=== PATIENT | female | born 1945 | race Caucasian/White ===

== ENCOUNTER 2016-11-06 19:40 | Inpatient (IN) ==
--- NOTE | 2016-11-06 20:26 | Emergency Department Note ---
Disposition Clinical Impression: Acute pyelonephritis Disposition: Admitted As Inpatient Condition: Undetermined Time of Disposition: 21:25 General Adult HPI - General Chief complaint: ED Nausea/Vomiting/Diarrhea Stated complaint: Lightheaded / N&V Time Seen by Provider: 11/06/16 20:06 Source: patient Mode of arrival: EMS Limitations: no limitations Nursing Notes Reviewed: Yes Vital Signs Reviewed: Yes - History of Present Illness HPI Narrative: 71-year-old female arrives [facility] emergency department complaining of generalized weakness, sore throat that began 1 day ago. The patient states that she was recently placed on Bactrim for possible "kidney infection" by PCP. The patient has been taking her medication as prescribed. She was prescribed the medication today. She states that last night she began experiencing symptoms and woke up with a sore throat as morning. The patient denies any fevers or chills, abdominal pain, chest pain, dyspnea. The patient does admit to a sore throat, nasal congestion. The patient does have a chronic venous stasis ulceration in the right lower extremity on her right heel which she sees wound care. Patient denies any other complaints at this time. She is afebrile. She is alert and oriented 3. Onset (ago): day(s) (1) Pain Scale: 0 Consistency: constant Improves with: nothing Worsens with: nothing Associated symptoms: Reports: weakness Treatments Prior to Arrival: other (Bactrim) - Related Data Home Medications Medication Instructions Recorded Confirmed Insulin ASPART [Novolog Flexpen] 20 unit SQ TIDAC 03/01/16 11/06/16 Insulin Glargine,Hum.rec.anlog 40 units SQ 03/01/16 11/06/16 [Lantus Solostar] Metoprolol [Lopressor] 12.5 mg PO BID 03/01/16 11/06/16 Pravastatin Sodium 10 mg PO HS 03/01/16 11/06/16 Aspirin 81 mg PO DAILY 05/20/16 11/06/16 Sulfamethoxazole/Trimeth DS 1 each PO BID 11/06/16 11/06/16 [Bactrim DS] Previous Rx's Medication Instructions Recorded Magnesium Oxide [Mag-Ox] 400 mg PO BID #60 tablet 06/22/16 Allergies Allergy/AdvReac Type Severity Reaction Status Date / Time acetaminophen [From Tylenol] Allergy See Verified 04/06/17 19:44 Comments Influenza Virus Vaccines Allergy See Verified 07/03/16 08:29 Comments Past Medical History - Past Medical History Medical history: Reports: diabetes, hyperlipidemia, hypertension, renal disease , other Surgical history: Reports: hysterectomy Psychiatric history: Reports: no psych history LIAISON ENGINEER history: Reports: no LIAISON ENGINEER history - Social History Smoking Status: Never smoker Smokeless Tobacco Status: No Alcohol use: Reports: none Drug use: Reports: none Physical Exam - General Limitations: no limitations General appearance: alert, in no apparent distress Course Vital Signs Temperature 97.7 F 11/06/16 19:44 Pulse Rate 95 11/06/16 19:44 Respiratory Rate 18 11/06/16 19:44 Blood Pressure 157/99 11/06/16 19:44 O2 Sat by Pulse Oximetry 99 11/06/16 19:44 Temperature 97.7 F 11/06/16 19:44 Pulse Rate 90 11/06/16 23:38 Respiratory Rate 18 11/06/16 23:38 Blood Pressure 144/84 11/06/16 23:38 O2 Sat by Pulse Oximetry 97 11/06/16 23:38 Oxygen Delivery Oxygen Delivery Room Air Medical Decision Making - MDM Narrative Medical decision making narrative: After evaluation the patient appears to have pyelonephritis. We will admit the patient to the hospital for further care. - Lab Data Lab results reviewed: Yes I reviewed the patient's lab results. Result diagrams: 11/06/16 23:27 11/06/16 23:27 Lab Results 11/06/16 11/06/16 Range/Units 20:20 20:25 POC Glucose 261 H (58-89) Ur Specimen Adequacy See below A Urine Color Yellow (Yellow) Urine Clarity Cloudy A (Clear) Urine pH 5.5 (5.0-8.0) pH Units Ur Specific [place] 1.014 (1.010-1.025) Urine Protein 100 H (Neg-Trace) mg/dL Urine Glucose (UA) Normal (Normal) mg/dL Urine Ketones Negative (Negative) mg/dL Urine Blood Large H (Negative) Urine Nitrite Negative (Negative) Urine Bilirubin Negative (Negative) Urine Urobilinogen Normal (Normal) mg/dL Ur Leukocyte Esterase Large H (Negative) Urine Microscopic RBC Present (0-3) per hpf Urine Microscopic WBC TNTC H (0-3) per hpf Ur Squamous Epith Cells Many H (None-Few) per lpf Urine Bacteria Many H (None-Few) per hpf Hyaline Casts Test Not Performed Urine Yeast Test Not Performed Attestation Statement - Attestation Attestation: Dr Fonseca note: Patient was seen in conjunction with resident Dr Shankar; please see his charting for complete documentation. I spent [id number] time with the patient and I agree with the patient's treatment and disposition. Urinalysis and chest x ray results noted; Rocephin ordered; no add'l emesis noted; admitted in hospitalist whom I spoke w/ in stable/improved condition;
[2016-11-06 20:45] LABS: Bilirubin,Urine Negative (Negative); Blood,Urine Large (Negative); Clarity,Urine Cloudy (Clear); Color,Urine Yellow (Yellow); Glucose,Urine (UA) Normal (Normal); Ketones,Urine Negative (Negative); Leukocyte Esterase,Urine Large (Negative); Nitrite,Urine Negative (Negative); PH,Urine 5.5 pH Units (5.0-8.0); Protein,Urine 100 mg/dL (Neg-Trace); Specific Gravity,Urine 1.014 (1.010-1.025); Urobilinogen,Urine Normal (Normal)
[2016-11-06 20:47] LABS: Bacteria,Urine Many per hpf (None-Few); Squamous Epithelial Cell,Urine Many per lpf (None-Few); WBC,Urine TNTC per hpf (0-3)
[2016-11-06 20:50] LABS: RBC,Urine Present per hpf (0-3)
[2016-11-06] MEDS ORDERED: Ondansetron 4 MG/2 ML VIAL IVP ONE (21:49)
[2016-11-06 23:36] LABS: Hematocrit 26.9 % (35.3-44.9); Mean Corpuscular HGB Conc 33.5 g/dL (31.6-35.5); Mean Corpuscular Hemoglobin 26.2 pg (28.0-33.3); Mean Corpuscular Volume 78.4 fL (83.0-100.0); Mean Platelet Volume 9.3 fL (9.4-12.4); Platelet Count 413 K/mcL (140-400); Red Blood Count 3.43 M/mcL (3.82-4.97); Red Cell Distribution Width 13.4 % (11.5-14.5)
[2016-11-06 23:51] LABS: Calcium 9.7 mg/dL (8.6-10.8); Potassium 5.9 mEq/L (3.5-4.5)
[2016-11-07] MEDS ORDERED: 0.9 % Sodium Chloride 1,000 ML IVC ONE (01:24)
[2016-11-07] MEDS ORDERED: Calcium Gluconate 1,000 MG in D5% in Water 100 ML IVPB ONE (01:24)
[2016-11-07] MEDS ORDERED: D5% in Water 1,000 ML IVC PRN ×3 (02:21→05:16)
[2016-11-07] MEDS ORDERED: Dextrose Gel 15 GM PO PRN ×4 (02:21→02:27)
[2016-11-07] MEDS ORDERED: Ondansetron 4 MG/2 ML VIAL IVP PRN (02:21)
[2016-11-07] MEDS ORDERED: *HR* Dextrose 50 % in Water (Syg) 50 ML SYRINGE IVP PRN ×2 (02:21→02:27)
[2016-11-07 02:40] LABS: Calcium 10.3 mg/dL (8.6-10.8)
--- NOTE | 2016-11-07 02:40 | Internal Med History&Physical ---
<Nereyda Trammell - Last Filed: 11/07/16 02:34> Date of Encounter: 11/07/16 Time of Encounter: 02:34 Assessment and Plan (1) Sepsis Current visit: No Status: Acute 97.5T 94P 16RR 130/82 WBC 14.3 likely urinary vs pulmonary cause UA +LE,Bacteria,WBCblood,protein CXR: possible RUL infiltrate will repeat CXR with PA and lateral start ceftriaxone IVF bolus+125ml/hr urine ctx check LA trend labs supportive care Qualifiers: Sepsis type: sepsis due to unspecified organism Qualified Code(s): A41.9 - Sepsis, unspecified organism (2) [id number] kidney injury Current visit: No Status: Acute BUN 91 Cr 4.62 elevated from baseline IVF bolus+maintenance avoid nephrotoxins montor renal fxn (3) Nausea Current visit: No Status: Resolved zofran prn (4) Vomiting Current visit: No Status: Resolved Qualifiers: Vomiting type: unspecified Vomiting Intractability: non-intractable Nausea presence: with nausea Qualified Code(s): R11.2 - Nausea with vomiting, unspecified (5) Diabetes mellitus Current visit: No Status: Chronic sliding scale protocol diebetic diet Qualifiers: Diabetes mellitus type: type 2 Diabetes mellitus complication status: with hyperglycemia Diabetes mellitus intermission coordinator insulin use: with intermission coordinator use Qualified Code(s): E11.65 - Type 2 diabetes mellitus with hyperglycemia; Z79.4 - custodial (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 (6) Hyperkalemia Current visit: No Status: Acute 5.9 give Ca gluconate recheck (7) Renal failure Current visit: No Status: Chronic (8) MERNA (acute kidney injury) Current visit: No Status: Resolved (9) UTI (urinary tract infection) Current visit: No Status: Acute cefriaxone IVF Qualifiers: Urinary tract infection type: acute cystitis Hematuria presence: without hematuria Qualified Code(s): N30.00 - Acute cystitis without hematuria (10) HTN (hypertension) Current visit: No Status: Chronic 130/82 controlled continue home med Qualifiers: Hypertension type: essential hypertension Qualified Code(s): I10 - Essential (primary) hypertension (11) HLD (hyperlipidemia) Current visit: No Status: Chronic continue home med Qualifiers: Hyperlipidemia type: unspecified Qualified Code(s): E78.5 - Hyperlipidemia , unspecified (12) DVT prophylaxis Current visit: No Status: Acute SCDs SQ heparin (13) Dehydration Current visit: No Status: Acute IVF (14) Hyponatremia Current visit: No Status: Resolved .9NS recheck Internal Medicine - H&P: HPI Chief complaint: urinary urgency Admitted From: Home Plans for Post Hospital Care: Home History of present illness: Ms. Lacy is a 71 year old female PMHX DM, HTN,HLD with c/o urinary urgency and frequency since yesterday morning. SHe states that she has had several "accidents" because she was unable to make it to the bathroom in time. Pt states she talk to PCP, who called in medication of bactrim for her this morning. Pt states she took one dose today without improvement of symptoms. SHe states she has also had nausea and nonbloody/nonbilious vomiting that started about the same time as her urinary symptoms. She complains of feeling very "run down" and weak and fatigue since onset of symptoms. She also states she has had some sore throat and runny nose. She denies fever, chills, CP, SOB, cough wheezing, C/D, numbness/tingling, recent falls or trauma. Past Med Surg Social Fam HX - Past Medical History Medical history: diabetes, hyperlipidemia, hypertension, renal disease, other Psychiatric history: no psych history - Past Surgical History Surgical History: hysterectomy - Social History Smoking Status: Former smoker Smokeless Tobacco Status: No Alcohol use: none Drug use: none Internal Medicine - H&P: Meds Insulin ASPART [Novolog Flexpen] 20 unit SQ TIDAC 03/01/16 [History] Insulin Glargine,Hum.rec.anlog [Lantus Solostar] 40 units SQ HS 03/01/16 [ History] Metoprolol [Lopressor] 12.5 mg PO BID 03/01/16 [History] Pravastatin Sodium 10 mg PO HS 03/01/16 [History] Aspirin 81 mg PO DAILY 05/20/16 [History] Magnesium Oxide [Mag-Ox] 400 mg PO BID #60 tablet 06/22/16 [Rx] Sulfamethoxazole/Trimeth DS [Bactrim DS] 1 each PO BID 11/06/16 [History] Allergies acetaminophen [From Tylenol] Allergy (Verified 11/06/16 19:44) See Comments Influenza Virus Vaccines Allergy (Verified 07/03/16 08:29) See Comments Patinet states "Last time I about lost my arm" All Systems PM: A 10-system review of systems was performed and is negative for pertinent findings except as documented above in the HPI. - Constitutional Constitutional: no chills, no fever(s), no night sweats - EENT Eyes: no change in vision, no discharge, no pain, no photophobia - Cardiovascular Cardiovascular ROS IM: no chest pain, no diaphoresis, no dyspnea, no lightheadedness, no palpitations, no syncope - Respiratory Respiratory: no cough, no dyspnea, no wheezing, no excessive phlegm production - Gastrointestinal Gastrointestinal: nausea, vomiting - Genitourinary Genitourinary: urinary frequency, urinary incontinence, urinary urgency, no dysuria, no hematuria - Musculoskeletal Musculoskeletal ROS IM: no numbness, no tingling - Integumentary Integumentary IM: no rash, no unusual bruising - Neurological Neurological ROS: no confusion, no convulsions, no focal weakness, no numbness, no tingling, no tremor(s) - Constitutional Vitals: Temp Pulse Resp BP Pulse Ox 97.5 F L 94 16 130/82 100 11/07/16 00:46 11/07/16 00:46 11/07/16 00:46 11/07/16 00:46 11/07/16 00:46 General appearance: Present: A&O X 3, no acute distress, answers questions appropriately - Head Head exam: Present: atraumatic, normocephalic - Eye Eye exam: Present: EOMI, PERRL, conjuntiva pink, sclera anicteric Pupils: Present: PERRL - Neck Neck exam general surgery: Present: supple, trachea midline. Absent: lymphadenopathy - Respiratory Respiratory exam: Present: CTAB. Absent: accessory muscle use, rales, rhonchi, wheezes - Cardiovascular Cardiovascular exam: Present: RRR, +S1, +S2. Absent: diastolic murmur, gallop, rubs, systolic murmur - GI/Abdominal GI/Abdominal exam: Present: normal bowel sounds, soft, tenderness (mild suprapubic), no peritoneal signs. Absent: distended, guarding, rigid - Extremities Exam Extremities exam: Present: warm, radial pulses palpable and symetrical. Absent : calf tenderness, cyanotic, pedal edema - Back Exam Back exam: Absent: CVA tenderness (L), CVA tenderness (R) - Neurological Exam Neurological exam: Present: CN II-XII intact, oriented X3, no focal deficits. Absent: pronater drift, facial droop, speech deficit - Skin Skin exam: Present: dry, warm Additional comments: venous stasis ulcer RLE Internal Med - H&P Results - Labs CBC & Chem 7: 11/06/16 23:27 11/06/16 23:27 Labs: Short CBC 11/06/16 Range/Units 23:27 WBC 14.3 H (4.3-11.1) K/mcL Hgb 9.0 L (11.5-15.4) g/dL Hct 26.9 L (35.3-44.9) % Plt Count 413 H (140-400) K/mcL BMP 11/06/16 23:27 Sodium 122 L Potassium 5.9 H Chloride 88 L Carbon Dioxide 22 BUN 91 H Creatinine 4.62 H Glucose 242 H Calcium 9.7 <Prudence Baca R - Last Filed: 11/07/16 05:03> Date of Encounter: 11/07/16 Internal Medicine - H&P: HPI History of present illness: Ms. Lacy is a 71 year old female All Systems PM: A 10-system review of systems was performed and is negative for pertinent findings except as documented above in the HPI. - Constitutional Vitals: Temp Pulse Resp BP Pulse Ox 97.5 F L 89 16 104/67 100 11/07/16 03:37 11/07/16 03:37 11/07/16 03:37 11/07/16 03:37 11/07/16 03:37 Internal Med - H&P Results - Labs CBC & Chem 7: 11/07/16 02:20 11/07/16 02:20 - Attending Attestation I performed a history and physical examination of the patient and discussed management with the resident. I reviewed the internal revenue agent / residents note and agree with the documented findings and plan of care, with additions as below. 71 year old female PMHX DM, HTN - presents to the emergency department with history of nausea and vomiting, dizziness on standing, urinary urgency and frequency. She denies significant abdominal pain, fever, chills, cough or expectoration. She was diagnosed to have UTI by PCP Had Bactrim called in and started the medication prior to this presentation. O/E: Not in acute distress. Abdomen soft and nontender. Lungs clear to auscultation. EKG personally reviewed by me shows sinus rhythm, T-wave inversion in lead 1 and aVL. CXR reported mild/early right upper lobe pneumonia. But on my personal of elevation of the chest x-ray, it is not convincing for pneumonia and the pt has no symptoms related to pneumonia will repeat CXR. Labs show creatinine of 4.62 (baseline 1.22); hyperkalemia (K: 5.9); hyponatremia (Na: 122). A/P: Urinary tract infection: Urine culture sent. Empirically treat with ceftriaxone. Acute renal failure: Likely prerenal, due to volume depletion / UTI / ? contributed by Bactrim. Treat with IV fluids. Will obtain renal ultrasound. Nephrology consultation. Monitor renal function. Hyperkalemia: Due to acute renal failure/Bactrim. Treat with calcium gluconate , Kayexalate, sodium bicarbonate. Monitor potassium levels. Hyponatremia: Likely acute renal failure. Normal saline infusion. Monitor sodium levels.
[2016-11-07 02:41] LABS: Potassium 5.7 mEq/L (3.5-4.5)
[2016-11-07] MEDS: 0.9 % Sodium Chloride 1,000 ML IVC SCH ×2 (03:23→15:14)
[2016-11-07 04:51] LABS: Hematocrit 27.5 % (35.3-44.9); Hemoglobin 9.2 g/dL (11.5-15.4); Mean Corpuscular HGB Conc 33.5 g/dL (31.6-35.5); Mean Corpuscular Hemoglobin 26.7 pg (28.0-33.3); Mean Corpuscular Volume 79.9 fL (83.0-100.0); Mean Platelet Volume 9.9 fL (9.4-12.4); Platelet Count 435 K/mcL (140-400); Red Blood Count 3.44 M/mcL (3.82-4.97); Red Cell Distribution Width 13.6 % (11.5-14.5)
[2016-11-07] MEDS ORDERED: Magnesium Sulfate 1 GM in D5% in Water 100 ML IVPB ONE (05:01)
[2016-11-07] MEDS: Pantoprazole 40 MG VIAL IVP SCH (05:27)
[2016-11-07] MEDS: *HR* Heparin 5,000 UNIT/ML VIAL SQ SCH ×2 (05:33→16:59)
[2016-11-07] MEDS ORDERED: Insulin LISPRO 300 UNITS/3 ML VIAL SQ SCH (06:00)
[2016-11-07 06:31] LABS: Basophils % 0.2 %; Eosinophils # 0.2 K/mcL (0.0-0.6); Eosinophils % 1.3 %; Hematocrit 26.6 % (35.3-44.9); Hemoglobin 8.8 g/dL (11.5-15.4); Immature Granulocytes % 0.6 % (0-4); Lymphocytes # 3.6 K/mcL (0.6-4.6); Lymphocytes % 28.1 %; Mean Corpuscular HGB Conc 33.1 g/dL (31.6-35.5); Mean Corpuscular Volume 78.7 fL (83.0-100.0); Mean Platelet Volume 9.6 fL (9.4-12.4); Monocytes # 0.6 K/mcL (0.0-1.3); Monocytes % 4.8 %; Neutrophils # 8.2 K/mcL (1.6-8.9); Platelet Count 358 K/mcL (140-400); Red Blood Count 3.38 M/mcL (3.82-4.97); Red Cell Distribution Width 13.3 % (11.5-14.5)
[2016-11-07 06:47] LABS: Albumin 1.9 g/dL (3.5-5.0); Albumin/Globulin Ratio 0.2 (1.1-2.2); Bilirubin,Total 0.2 mg/dL (0.2-1.2); Calcium 9.6 mg/dL (8.6-10.8); Globulin 8.1 g/dL (2.4-3.5); Potassium 4.9 mEq/L (3.5-4.5)
[2016-11-07] MEDS: Insulin LISPRO 300 UNITS/3 ML VIAL SQ SCH ×4 (09:36→21:38)
[2016-11-07] MEDS: Aspirin 81 MG TAB.CHEW PO SCH (09:36)
--- NOTE | 2016-11-07 10:56 | Nephrology Consult Note ---
Date of Encounter: 11/07/16 Time of Encounter: 10:20 Assessment and Plan (1) MERNA (acute kidney injury) Current Visit: No Status: Resolved MERNA superimposed on CKD in setting of pyelonehritis and GI losses, RUL pneumonia. Recent baseline creat 1.2-1.6. Renal fct slowly improving, creat 4.35. No documented urine output. Hyperkalemia improved, K+ 4.9. Hyponatremia improving Na 129. Continue IV 0.9 NS as tolerated. I&O's. Will obtain Renal US. Avoid nephrotoxins. Will continue to monitor. History of Present Illness - Reason for Consult Acute Kidney Injury - History of Present Illness Ms. Lacy is a 71 year old female who presented to ER with weakness and sore throat x one day. She had been started on Bactrim yesterday by PCP for possible "kidney infection.". Other PMH-DM II, HTN, hyperlipidemia, renal disease and chronic venous stasis ulcer of RLE. She denies fever, chills, she admitted nausea and emesis that started with urinary symptoms, denies diarrhea. She denies chest pain or SOB, admits nasal congestion. CXR shows faint RUL infiltrate. Started on Ceftriaxone. Urine positive for leuk, blood, protein. Creatinine 4.62, BUN 91. K+ 5.9, given Ca glucanate. Na 122. At consult today, she is eating breakfast and states is feeling much better. Ms. Lacy denies prior history of renal insufficiency though it is listed in past medical history. Prior recent labs show baseline creat range 1.2-1.6. Admits diabetes and hypertension for eight years. She denies diabetic retinopathy though she states her vision has diminished recently and has upcoming ophthalmology appointment in December. She denies NSAID use. She denies proteinuria, hematuria, renal stones or chronic UTI's. She denies LE swelling. She denies difficulty emptying bladder prior to current urinary symptoms. Past Med Surg Social Fam HX - Past Medical History Medical history: diabetes, hyperlipidemia, hypertension, renal disease, other Psychiatric history: no psych history - Past Surgical History Surgical History: hysterectomy - Social History Smoking Status: Former smoker Smokeless Tobacco Status: No Alcohol use: none Drug use: none Medications and Allergies Insulin ASPART [Novolog Flexpen] 20 unit SQ TIDAC 03/01/16 [History] Insulin Glargine,Hum.rec.anlog [Lantus Solostar] 40 units SQ HS 03/01/16 [ History] Metoprolol [Lopressor] 12.5 mg PO BID 03/01/16 [History] Pravastatin Sodium 10 mg PO HS 03/01/16 [History] Aspirin 81 mg PO DAILY 05/20/16 [History] Magnesium Oxide [Mag-Ox] 400 mg PO BID #60 tablet 06/22/16 [Rx] Sulfamethoxazole/Trimeth DS [Bactrim DS] 1 each PO BID 11/06/16 [History] Allergies acetaminophen [From Tylenol] Allergy (Verified 11/06/16 19:44) See Comments Influenza Virus Vaccines Allergy (Verified 07/03/16 08:29) See Comments Patinet states "Last time I about lost my arm" Review of Systems All Systems: reviewed and no additional remarkable complaints except as stated Exam - Vital Signs Vital signs: Initial Vital Signs Temp Pulse Resp BP Pulse Ox 97.7 F 95 18 157/99 99 11/06/16 19:44 11/06/16 19:44 11/06/16 19:44 11/06/16 19:44 11/06/16 19:44 Vital Signs - Last 8 Hours Temp Pulse Resp BP Pulse Ox 11/07/16 09:42 97.4 F L 86 16 105/72 97 11/07/16 03:37 97.5 F L 89 16 104/67 100 Intake and Output 11/06/16 11/07/16 11/07/16 23:59 07:59 15:59 Intake Total 1000 / 1110 Balance 1000 / 1110 Intake: IV Fluids 1000 / 1000 0.9 % Sodium Chloride 1, 1000 / 1000 000 ML @ 3750 mls/hr IVC .Q16M ONE Rx#:[id number] Other: Stool Size Large Stool Consistency liquid # Bowel Movement Diapers 4 Blood Glucose* 178 - General Appearance General appearance: well-developed, well-nourished, appears started age EENT: mucous membranes moist Neck: no JVD Respiratory: clear Cardiology: regular rate, regular rhythm Additional Comments: 2/6 systolic murmur Gastrointestinal: normoactive bowel sounds, no tenderness, no guarding Integumentary: warm and dry Neurologic: alert and oriented x3 Psychiatric: mood/affect appropriate, cooperative Results - Lab Results 11/07/16 06:21 11/07/16 06:21 Most recent lab results Calcium 9.6 mg/dL (8.6-10.8) 11/07/16 06:21 Magnesium 1.6 mg/dL (1.6-2.6) 11/07/16 02:20 Consult Discharge Plan - Plan Referrals: Macario Gómez MD [Primary Care Provider] - 11/17/16 2:00 pm (THIS APPOINTMENT WILL BE WITH , DR. GÓMEZ WILL BE OUT OF OFFICE THIS WEEK)
--- NOTE | 2016-11-07 16:22 | Electrocardiograph Report ---
[address] [place], [place] [address] Test Date: 2016-11-07 Pat Name: Lisa Lacy Department: 115 Room: 3A45 Gender: F Chronograph Operator: : 1945 Requested By: Delmer De Santiago Order Number: [id number] Reading MD: Abbi Lawrence Measurements Intervals [place] Rate: 93 P: 16 UT: 175 QRS: -5 QRSD: 107 T: 127 QT: 334 QTc: 384 Interpretive Statements SINUS RHYTHM SEPTAL MYOCARDIAL INFARCTION, PROBABLY OLD MODERATE T-WAVE ABNORMALITY, CONSIDER LATERAL ISCHEMIA Electronically Signed On 11-07-2016 16:21:17 EDT by Abbi Lawrence
--- NOTE | 2016-11-07 17:23 | Internal Med Progress Note ---
Date of Encounter: 11/07/16 Time of Encounter: 13:00 - Assessment and plan (1) MERNA (acute kidney injury) Current Visit: No Status: Acute Assessment and plan: Continue with IV fluids at 125 mL per hour. Normal saline IV. Avoid nephrotoxins. Check BUN and creatinine in the morning. (2) DVT prophylaxis Current Visit: No Status: Acute Assessment and plan: Subcutaneous heparin. (3) Dehydration Current Visit: No Status: Acute Assessment and plan: IV fluids. Encourage oral hydration. (4) UTI (urinary tract infection) Current Visit: No Status: Acute Assessment and plan: IV ceftriaxone. Follow up culture and sensitivity. Qualifiers: Urinary tract infection type: acute cystitis Hematuria presence: without hematuria Qualified Code(s): N30.00 - Acute cystitis without hematuria - Subjective Interval history: The patient reports no abdominal pain. Her nausea and vomiting have resolved since yesterday. She was admitted to the hospital after she presented with nausea and vomiting and was found to be dehydrated and have an elevated creatinine of 4.6. - Constitutional Vitals: Temp Pulse Resp BP Pulse Ox 97.8 F 82 14 110/66 98 11/07/16 15:05 11/07/16 15:05 11/07/16 15:05 11/07/16 15:05 11/07/16 15:05 General appearance: Present: A&O X 3, no acute distress, answers questions appropriately - Eye Eye exam: Present: PERRL, conjuntiva pink, sclera anicteric Pupils: Present: PERRL - Respiratory Respiratory exam: Present: CTAB. Absent: accessory muscle use, rales, rhonchi, wheezes - Cardiovascular Cardiovascular exam: Present: RRR, +S1, +S2. Absent: diastolic murmur, gallop, rubs, systolic murmur - GI/Abdominal GI/Abdominal exam: Present: normal bowel sounds, soft, no peritoneal signs. Absent: distended, tenderness - Extremities Exam Extremities exam: Present: warm, radial pulses palpable and symetrical. Absent : calf tenderness, cyanotic, pedal edema - Skin Skin exam: Present: dry, intact Internal Medicine: Result - Labs CBC & Chem 7: 11/07/16 06:21 11/07/16 06:21 Labs: Short CBC 11/07/16 Range/Units 06:21 WBC 12.7 H (4.3-11.1) K/mcL Hgb 8.8 L (11.5-15.4) g/dL Hct 26.6 L (35.3-44.9) % Plt Count 358 (140-400) K/mcL Neutrophils # 8.2 (1.6-8.9) K/mcL BMP 11/07/16 06:21 Sodium 129 L Potassium 4.9 H Chloride 94 L Carbon Dioxide 19 BUN 87 H Creatinine 4.35 H Glucose 171 H Calcium 9.6 Liver Function 11/07/16 Range/Units 06:21 Total Bilirubin 0.2 (0.2-1.2) mg/dL AST 9 (5-34) Units/L ALT 6 (0-55) Units/L Alkaline Phosphatase 154 H (38-126) Units/L Albumin 1.9 L (3.5-5.0) g/dL Consult Discharge Plan - Plan Referrals: Macario Diallo MD [Primary Care Provider] - 11/17/16 2:00 pm (THIS APPOINTMENT WILL BE WITH , DR. DIALLO WILL BE OUT OF OFFICE THIS WEEK)
[2016-11-08] MEDS: 0.9 % Sodium Chloride 1,000 ML IVC SCH ×4 (02:49→21:25)
[2016-11-08 03:36] LABS: Basophils % 0.3 %; Eosinophils # 0.1 K/mcL (0.0-0.6); Eosinophils % 1.1 %; Hematocrit 22.1 % (35.3-44.9); Immature Granulocytes % 0.7 % (0-4); Lymphocytes # 3.3 K/mcL (0.6-4.6); Lymphocytes % 30.2 %; Mean Corpuscular HGB Conc 32.1 g/dL (31.6-35.5); Mean Corpuscular Hemoglobin 25.8 pg (28.0-33.3); Mean Corpuscular Volume 80.4 fL (83.0-100.0); Mean Platelet Volume 9.4 fL (9.4-12.4); Monocytes # 0.7 K/mcL (0.0-1.3); Monocytes % 6.2 %; Neutrophils # 6.8 K/mcL (1.6-8.9); Platelet Count 320 K/mcL (140-400); Red Blood Count 2.75 M/mcL (3.82-4.97); Red Cell Distribution Width 13.4 % (11.5-14.5); Segmented Neutrophils % 61.5 %
[2016-11-08 03:38] LABS: Hemoglobin 7.1 g/dL (11.5-15.4)
[2016-11-08 03:50] LABS: Calcium 8.3 mg/dL (8.6-10.8); Potassium 4.3 mEq/L (3.5-4.5)
[2016-11-08] MEDS: Pantoprazole 40 MG VIAL IVP SCH (06:09)
[2016-11-08] MEDS: *HR* Heparin 5,000 UNIT/ML VIAL SQ SCH ×2 (06:11→18:05)
[2016-11-08] MEDS: Insulin LISPRO 300 UNITS/3 ML VIAL SQ SCH ×4 (07:45→21:29)
[2016-11-08] MEDS: Aspirin 81 MG TAB.CHEW PO SCH (07:47)
--- NOTE | 2016-11-08 08:52 | Nephrology Progress Note ---
Date of Encounter: 11/08/16 Time of Encounter: 08:40 - Assessment and Plan (1) MERNA (acute kidney injury) Current Visit: No Status: Resolved MERNA superimposed on CKD in setting of pyelonehritis and GI losses, RUL pneumonia. Recent baseline creat 1.2-1.6. Renal fct improving. Creat 2.76. Renal US, no obstructive uropathy. Urine output 625cc. Continue to monitor. Subjective Interval history: Sitting up eating breakfast. States feeling much better. Objective - Vital Signs Vital signs: Vital Signs Temp Pulse Resp BP Pulse Ox 11/08/16 06:59 95 11/08/16 06:50 98.6 F 90 18 117/64 95 11/07/16 23:35 98.4 F 84 14 107/58 95 11/07/16 18:52 97.8 F 94 14 119/64 97 11/07/16 15:05 97.8 F 82 14 110/66 98 11/07/16 13:53 97.8 F 78 16 108/70 97 11/07/16 09:42 97.4 F L 86 16 105/72 97 Intake and Output 11/07/16 11/08/16 11/08/16 23:59 07:59 15:59 Intake Total 100 / 100 1550 / 1550 Output Total 625 / 625 1200 / 1200 Balance -525 / -525 350 / 350 Intake: IV Fluids 100 / 100 1550 / 1550 0.9 % Sodium Chloride 1, 1550 / 1550 000 ML @ 125 mls/hr IVC . Q8H VIKA Rx#:[id number] Rocephin 1,000 MG In 100 / 100 Dextrose 5% (Minibag+) 100 ML 100 ML @ 200 mls/ hr IVPB Q24H VIKA Rx#: [id number] Oral 0 / 0 0 / 0 Output: Urine 300 / 300 Urethral (Madden) 300 / 300 Catheter 325 / 325 1200 / 1200 Other: Stool Size Small Stool Consistency soft Stool Color Brown # Urine Diapers 1 # Bowel Movement Diapers 1 1 Weight 52.5 kg Blood Glucose* 203 347 Patient Weight 11/08/16 23:59 Weight 52.5 kg - General Appearance General appearance: Present: well-developed, well-nourished, appears started age EENT: Present: mucous membranes moist Neck: Present: no JVD Respiratory: Present: clear Cardiology: Present: no edema, regular rate, regular rhythm Gastrointestinal: Present: normoactive bowel sounds, no tenderness Integumentary: Present: warm and dry Neurologic: Present: alert and oriented x3 Psychiatric: Present: mood/affect appropriate, cooperative - Lab 11/08/16 03:04 11/08/16 03:04 Most recent lab results Calcium 8.3 mg/dL (8.6-10.8) L 11/08/16 03:04 Magnesium 1.6 mg/dL (1.6-2.6) 11/07/16 02:20 Consult Discharge Plan - Plan Referrals: Víctor Carter MD [Partnered Physician] - 11/17/16 2:00 pm Macario Diallo MD [Primary Care Provider] -
--- NOTE | 2016-11-08 17:26 | Internal Med Progress Note ---
Date of Encounter: 11/08/16 Time of Encounter: 10:00 - Assessment and plan (1) MERNA (acute kidney injury) Current Visit: No Status: Acute Assessment and plan: I appreciate nephrology input. Kidney ultrasound shows bilateral hydronephrosis. Patient had a Madden catheter placed yesterday. Creatinine improved dramatically. I will continue with IV fluids at 100 mL per hour. Normal saline IV. Avoid nephrotoxins. We will consult urology. (2) DVT prophylaxis Current Visit: No Status: Acute Assessment and plan: Subcutaneous heparin. (3) Dehydration Current Visit: No Status: Acute Assessment and plan: IV fluids. Encourage oral hydration. (4) UTI (urinary tract infection) Current Visit: No Status: Acute Assessment and plan: IV ceftriaxone. Follow up culture and sensitivity. Qualifiers: Urinary tract infection type: acute cystitis Hematuria presence: without hematuria Qualified Code(s): N30.00 - Acute cystitis without hematuria - Subjective Interval history: The patient reports 0/10 abdominal pain. Her nausea and vomiting have resolved since yesterday. She was admitted to the hospital after she presented with nausea and vomiting and was found to be dehydrated and have an elevated creatinine of 4.6. The patient had been incontinent for the last 24 hours per nursing reports. - Constitutional Vitals: Temp Pulse Resp BP Pulse Ox 97.7 F 81 14 132/67 97 11/08/16 15:18 11/08/16 15:18 11/08/16 15:18 11/08/16 15:18 11/08/16 15:18 General appearance: Present: A&O X 3, no acute distress, answers questions appropriately - Eye Eye exam: Present: PERRL, conjuntiva pink, sclera anicteric Pupils: Present: PERRL - Respiratory Respiratory exam: Present: CTAB. Absent: accessory muscle use, rales, rhonchi, wheezes - Cardiovascular Cardiovascular exam: Present: RRR, +S1, +S2. Absent: diastolic murmur, gallop, rubs, systolic murmur - GI/Abdominal GI/Abdominal exam: Present: normal bowel sounds, soft, no peritoneal signs. Absent: distended, tenderness - Extremities Exam Extremities exam: Present: warm, radial pulses palpable and symetrical. Absent : calf tenderness, cyanotic, pedal edema Internal Medicine: Result - Labs CBC & Chem 7: 11/08/16 03:04 11/08/16 03:04 Labs: Short CBC 11/08/16 Range/Units 03:04 WBC 11.0 (4.3-11.1) K/mcL Hgb 7.1 L D (11.5-15.4) g/dL Hct 22.1 L (35.3-44.9) % Plt Count 320 (140-400) K/mcL Neutrophils # 6.8 (1.6-8.9) K/mcL BMP 11/08/16 03:04 Sodium 130 L Potassium 4.3 Chloride 98 Carbon Dioxide 20 BUN 62 H D Creatinine 2.76 H Glucose 242 H Calcium 8.3 L - Impressions Impressions Retroperitoneum Ultrasound 11/07/16 17:00 IMPRESSION: 1. Moderate bilateral hydronephrosis with underlying etiology uncertain. Urology follow-up recommended. 2. Peripherally calcified cyst in the right kidney and simple cyst in the left kidney. 3. Diffuse bladder mucosal thickening. There is a moderate postvoid residual. D/ / William Martin MD / William Martin MD Interpreting Provider: William Martin MD Chest X-Ray 11/08/16 00:01 IMPRESSION: Persistent right upper lobe opacity which appears more prominent today's study suspicious for pneumonia. Recommend a short-term follow-up to ensure resolution. If findings persist, follow-up with CT may be warranted to exclude underlying mass. Small left pleural effusion with adjacent atelectasis. D/ / Laura Max MD / Laura Max MD Interpreting Provider: Laura Max MD Consult Discharge Plan - Plan Referrals: Víctor Crater MD [Partnered Physician] - 11/17/16 2:00 pm Macario Diallo MD [Primary Care Provider] -
[2016-11-09 05:24] LABS: Calcium 8.3 mg/dL (8.6-10.8); Potassium 4.5 mEq/L (3.5-4.5)
[2016-11-09] MEDS: 0.9 % Sodium Chloride 1,000 ML IVC SCH ×2 (05:25→05:45)
[2016-11-09] MEDS: Pantoprazole 40 MG VIAL IVP SCH (05:46)
[2016-11-09] MEDS: *HR* Heparin 5,000 UNIT/ML VIAL SQ SCH ×2 (05:48→17:14)
[2016-11-09 06:16] LABS: Basophils % 0.2 %; Eosinophils # 0.2 K/mcL (0.0-0.6); Eosinophils % 1.7 %; Hematocrit 20.4 % (35.3-44.9); Hemoglobin 6.5 g/dL (11.5-15.4); Immature Granulocytes % 1.6 % (0-4); Immature Platelets 2.2 % (1.1-6.1); Lymphocytes # 2.3 K/mcL (0.6-4.6); Lymphocytes % 22.6 %; Mean Corpuscular HGB Conc 31.9 g/dL (31.6-35.5); Mean Corpuscular Hemoglobin 26.2 pg (28.0-33.3); Mean Platelet Volume 9.5 fL (9.4-12.4); Monocytes # 0.7 K/mcL (0.0-1.3); Monocytes % 6.7 %; Neutrophils # 6.9 K/mcL (1.6-8.9); Platelet Count 310 K/mcL (140-400); Red Blood Count 2.48 M/mcL (3.82-4.97); Red Cell Distribution Width 13.5 % (11.5-14.5); Segmented Neutrophils % 67.2 %
[2016-11-09 06:18] LABS: Mean Corpuscular Volume 82.3 fL (83.0-100.0)
--- NOTE | 2016-11-09 07:11 | Urology - Consult Note ---
Date of Encounter: 11/09/16 Time of Encounter: 07:09 - Assessment and Plan (1) Incomplete emptying of bladder Current Visit: No Status: Acute Assessment and plan: 71 year old woman with long standing diabetes and incomplete bladder emptying. She had a similar issue back in July 2016. I recommend leaving the catheter in place for her urinary retention. As she has developed recurrent renal failure, I think she would be best served with some form of chronic catheterization, either indwelling Madden, SP tube, or CIC. Continue her catheter for now. She can follow up with Dr. Gutierrez as an outpatient. (2) UTI (urinary tract infection) Current Visit: No Status: Acute Assessment and plan: Culture has so far been negative, but UA at the time of admission was concerning for infection. Will continue with ceftriaxone and treat for 10 day course. Consider transitioning to PO antibiotic once stable. Qualifiers: Urinary tract infection type: acute cystitis Hematuria presence: without hematuria Qualified Code(s): N30.00 - Acute cystitis without hematuria Urology CN:HPI Consult date: 11/09/16 Reason for consult Urology: Hydronephrosis Requesting physician: Delmer De Santiago History of present illness: 71-year-old female with longstanding history of diabetes and incomplete bladder emptying. She was previously seen by Dr. Gutierrez in July 2016 for a similar issue with urinary retention. Ultrasound at admission demonstrates incomplete bladder emptying and bilateral hydronephrosis. She has renal insufficiency. A catheter was placed and her creatinine has improved. She's been on ceftriaxone. She reports significant urgency and frequency. Past Med Surg Social Fam HX - Past Medical History Medical history: diabetes, hyperlipidemia, hypertension, renal disease, other Psychiatric history: no psych history - Past Surgical History Surgical History: hysterectomy - Social History Smoking Status: Former smoker Smokeless Tobacco Status: No Alcohol use: none Drug use: none Medications and Allergies Insulin ASPART [Novolog Flexpen] 20 unit SQ TIDAC 03/01/16 [History] Insulin Glargine,Hum.rec.anlog [Lantus Solostar] 40 units SQ HS 03/01/16 [ History] Metoprolol [Lopressor] 12.5 mg PO BID 03/01/16 [History] Pravastatin Sodium 10 mg PO HS 03/01/16 [History] Aspirin 81 mg PO DAILY 05/20/16 [History] Magnesium Oxide [Mag-Ox] 400 mg PO BID #60 tablet 06/22/16 [Rx] Sulfamethoxazole/Trimeth DS [Bactrim DS] 1 each PO BID 11/06/16 [History] Allergies acetaminophen [From Tylenol] Allergy (Verified 11/06/16 19:44) See Comments Influenza Virus Vaccines Allergy (Verified 07/03/16 08:29) See Comments Patinet states "Last time I about lost my arm" Review of Systems - Constitutional no chills, no fever(s) - EENT Nose, mouth and throat: no dizziness - Cardiovascular no chest pain - Respiratory no dyspnea - Gastrointestinal no nausea, no vomiting - Genitourinary Genitourinary: no flank pain, no hematuria - Musculoskeletal no back pain - Integumentary no erythema, no rash - Neurological no weakness - Psychiatric no suicidal ideation - Hematologic/Lymphatic no easy bleeding - Allergic/Immunologic no wheezing Exam Initial Vital Signs Temp Pulse Resp BP Pulse Ox 97.7 F 95 18 157/99 99 11/06/16 19:44 11/06/16 19:44 11/06/16 19:44 11/06/16 19:44 11/06/16 19:44 - General physical appearance Present: well developed, well nourished, no distress - Eyes Absent: icteric - ENT Present: normal nares - Neck Present: trachea midline - Respiratory Present: normal respiratory effort - Cardiovascular Cardiovascular exam IM: RRR - Abdomen Abdomen: Present: soft - Genitourinary Present: other (catheter in place with clear urine.) Urology Results - Labs 11/09/16 05:39 11/09/16 04:14 Abnormal lab results RBC 2.48 M/mcL (3.82-4.97) L 11/09/16 05:39 Hgb 6.5 g/dL (11.5-15.4) L 11/09/16 05:39 Hct 20.4 % (35.3-44.9) L 11/09/16 05:39 MCV 82.3 fL (83.0-100.0) L 11/09/16 05:39 MCH 26.2 pg (28.0-33.3) L 11/09/16 05:39 Sodium 134 mEq/L (136-145) L 11/09/16 04:14 Carbon Dioxide 18 mEq/L (19-29) L 11/09/16 04:14 BUN 29 mg/dL (7-20) H D 11/09/16 04:14 Creatinine 1.65 mg/dL (0.57-1.11) H 11/09/16 04:14 Est GFR ( Amer) 37 (> 60) L 11/09/16 04:14 Est GFR (Non-Af Amer) 30 (> 60) L 11/09/16 04:14 Glucose 320 mg/dL (70-99) H 11/09/16 04:14 POC Glucose 388 (58-89) H 11/09/16 07:05 Calcium 8.3 mg/dL (8.6-10.8) L 11/09/16 04:14 Alkaline Phosphatase 154 Units/L (38-126) H 11/07/16 06:21 Serum Total Protein 10.0 g/dL (6.0-8.3) H 11/07/16 06:21 Albumin 1.9 g/dL (3.5-5.0) L 11/07/16 06:21 Globulin 8.1 g/dL (2.4-3.5) H 11/07/16 06:21 Albumin/Globulin Ratio 0.2 (1.1-2.2) L 11/07/16 06:21 Ur Specimen Adequacy See below A 11/06/16 20:25 Urine Clarity Cloudy (Clear) A 11/06/16 20:25 Urine Protein 100 mg/dL (Neg-Trace) H 11/06/16 20:25 Urine Blood Large (Negative) H 11/06/16 20:25 Ur Leukocyte Esterase Large (Negative) H 11/06/16 20:25 Urine Microscopic WBC TNTC per hpf (0-3) H 11/06/16 20:25 Ur Squamous Epith Cells Many per lpf (None-Few) H 11/06/16 20:25 Urine Bacteria Many per hpf (None-Few) H 11/06/16 20:25 Diabetes panel 11/09/16 Range/Units 04:14 Sodium 134 L (136-145) mEq/L Potassium 4.5 (3.5-4.5) mEq/L Chloride 106 (98-109) mEq/L Carbon Dioxide 18 L (19-29) mEq/L BUN 29 H D (7-20) mg/dL Creatinine 1.65 H (0.57-1.11) mg/dL Glucose 320 H (70-99) mg/dL Calcium 8.3 L (8.6-10.8) mg/dL Calcium panel 11/09/16 Range/Units 04:14 Calcium 8.3 L (8.6-10.8) mg/dL Pituitary panel 11/09/16 Range/Units 04:14 Sodium 134 L (136-145) mEq/L Potassium 4.5 (3.5-4.5) mEq/L Chloride 106 (98-109) mEq/L Carbon Dioxide 18 L (19-29) mEq/L BUN 29 H D (7-20) mg/dL Creatinine 1.65 H (0.57-1.11) mg/dL Glucose 320 H (70-99) mg/dL Calcium 8.3 L (8.6-10.8) mg/dL Adrenal panel 11/09/16 Range/Units 04:14 Sodium 134 L (136-145) mEq/L Potassium 4.5 (3.5-4.5) mEq/L Chloride 106 (98-109) mEq/L Carbon Dioxide 18 L (19-29) mEq/L BUN 29 H D (7-20) mg/dL Creatinine 1.65 H (0.57-1.11) mg/dL Glucose 320 H (70-99) mg/dL Calcium 8.3 L (8.6-10.8) mg/dL All other labs normal. - Imaging US - abdomen: report reviewed, image reviewed US - pelvic: report reviewed, image reviewed Consult Discharge Plan - Plan Referrals: Víctor Carter MD [Partnered Physician] - 11/17/16 2:00 pm Macario Diallo MD [Primary Care Provider] -
[2016-11-09] MEDS: Insulin LISPRO 300 UNITS/3 ML VIAL SQ SCH ×4 (07:41→21:22)
[2016-11-09] MEDS: Aspirin 81 MG TAB.CHEW PO SCH (07:42)
[2016-11-09 08:05] LABS: Hematocrit 20.8 % (35.3-44.9); Hemoglobin 6.7 g/dL (11.5-15.4); Immature Platelets 1.5 % (1.1-6.1); Mean Corpuscular HGB Conc 32.2 g/dL (31.6-35.5); Mean Corpuscular Hemoglobin 26.9 pg (28.0-33.3); Mean Corpuscular Volume 83.5 fL (83.0-100.0); Mean Platelet Volume 9.7 fL (9.4-12.4); Red Blood Count 2.49 M/mcL (3.82-4.97); Red Cell Distribution Width 13.8 % (11.5-14.5)
--- NOTE | 2016-11-09 09:25 | Nephrology Progress Note ---
Date of Encounter: 11/09/16 Time of Encounter: 09:05 - Assessment and Plan (1) MERNA (acute kidney injury) Current Visit: No Status: Resolved MERNA superimposed on CKD in setting GI losses, RUL pneumonia, UA concerning for infection on ceftriaxone. Hx urinary retention. Recent baseline creat 1.2- 1.6. Renal fct improving. Creat 1.65. Renal US, no obstructive uropathy. Urine output 3300cc. Repeat hgb ordered for marked drop. Will decrease IV fluids. Continue to monitor. Subjective Interval history: Sleeping, arouses easily. States feeling better. No new complaints. Objective - Vital Signs Vital signs: Vital Signs Temp Pulse Resp BP Pulse Ox 11/09/16 06:50 94 11/09/16 06:40 99.6 F 97 16 123/69 95 11/09/16 03:37 99.1 F 82 14 129/61 94 11/09/16 00:08 98.6 F 87 14 120/70 97 11/08/16 19:21 97.8 F 88 14 133/53 99 11/08/16 18:12 97 11/08/16 15:18 97.7 F 81 14 132/67 97 11/08/16 10:44 98.1 F 84 16 109/52 98 Intake and Output 11/08/16 11/09/16 11/09/16 23:59 07:59 15:59 Intake Total 1580 / 1580 1490 / 1490 Output Total 700 / 700 1999 / 1999 Balance 880 / 880 -510 / -510 Intake: IV Fluids 1100 / 1100 1250 / 1250 0.9 % Sodium Chloride 1, 1000 / 1000 1250 / 1250 000 ML @ 125 mls/hr IVC . Q8H [facility] Rx#:[id number] Rocephin 1,000 MG In 100 / 100 Dextrose 5% (Minibag+) 100 ML 100 ML @ 200 mls/ hr IVPB Q24H [facility] Rx#: [id number] Oral 480 / 480 240 / 240 Output: Urine 1400 / 1400 Catheter 700 / 700 600 / 600 Other: Meal Dinner Stool Size Moderate Moderate Stool Consistency liquid loose Stool Color Brown Brown # Bowel Movement Diapers 2 1 Blood Glucose* 289 388 - General Appearance General appearance: Present: well-developed, well-nourished, appears started age EENT: Present: mucous membranes moist Neck: Present: no JVD Respiratory: Present: clear Cardiology: Present: edema, regular rate, regular rhythm Additional Comments: trace ankle Gastrointestinal: Present: normoactive bowel sounds, no tenderness Integumentary: Present: warm and dry Neurologic: Present: alert and oriented x3 Psychiatric: Present: mood/affect appropriate, cooperative - Lab 11/09/16 07:55 11/09/16 04:14 Most recent lab results Calcium 8.3 mg/dL (8.6-10.8) L 11/09/16 04:14 Magnesium 1.6 mg/dL (1.6-2.6) 11/07/16 02:20 Consult Discharge Plan - Plan Referrals: Víctor Carter MD [Partnered Physician] - 11/17/16 2:00 pm Macario Diallo MD [Primary Care Provider] -
--- NOTE | 2016-11-09 16:35 | Internal Med Progress Note ---
Date of Encounter: 11/09/16 Time of Encounter: 16:33 - Assessment and plan (1) MERNA (acute kidney injury) Current Visit: No Status: Acute Assessment and plan: I appreciate nephrology input. Kidney ultrasound shows bilateral hydronephrosis. Patient had a Madden catheter placed yesterday. Creatinine improved dramatically. I will continue with IV fluids at 100 mL per hour. Normal saline IV. Avoid nephrotoxins. We will consult urology. (2) DVT prophylaxis Current Visit: No Status: Acute Assessment and plan: Subcutaneous heparin. (3) Dehydration Current Visit: No Status: Acute Assessment and plan: IV fluids. Encourage oral hydration. (4) UTI (urinary tract infection) Current Visit: No Status: Acute Assessment and plan: IV ceftriaxone. Follow up culture and sensitivity - no pathogens isolated. We will continue IV antibiotic empirically for 1 more day. Qualifiers: Urinary tract infection type: acute cystitis Hematuria presence: without hematuria Qualified Code(s): N30.00 - Acute cystitis without hematuria (5) Right upper lobe pneumonia Current Visit: Yes Status: Acute Assessment and plan: Continuous ceftriaxone and add azithromycin. Oxygen by nasal cannula. Sputum culture if available. Qualifiers: Pneumonia type: due to unspecified organism Qualified Code(s): J18.1 - Lobar pneumonia, unspecified organism (6) Anemia in chronic kidney disease Current Visit: Yes Status: Ruled-out Assessment and plan: She has anemia associated with chronic kidney disease, worsening today due to IV fluids. I will transfuse 1 unit PRBC with goal of hemoglobin above 8. Lasix posttransfusion. - Subjective Interval history: 11/19/2016: She reports some cough and congestion 1 sputum production. No chest pain or shortness of breath. 11/08/2016: The patient reports 0/10 abdominal pain. Her nausea and vomiting have resolved since yesterday. She was admitted to the hospital after she presented with nausea and vomiting and was found to be dehydrated and have an elevated creatinine of 4.6. The patient had been incontinent for the last 24 hours per nursing reports. - Constitutional Vitals: Temp Pulse Resp BP Pulse Ox 100.7 F H 88 18 134/68 93 11/09/16 15:06 11/09/16 15:06 11/09/16 15:06 11/09/16 15:06 11/09/16 15:15 General appearance: Present: A&O X 3, no acute distress, answers questions appropriately - Eye Eye exam: Present: PERRL, conjuntiva pink, sclera anicteric Pupils: Present: PERRL - Neck Neck exam general surgery: Present: supple, trachea midline. Absent: lymphadenopathy - Respiratory Respiratory exam: Present: CTAB. Absent: accessory muscle use, rales, rhonchi, wheezes - Cardiovascular Cardiovascular exam: Present: RRR, +S1, +S2. Absent: diastolic murmur, gallop, rubs, systolic murmur - GI/Abdominal GI/Abdominal exam: Present: normal bowel sounds, soft, no peritoneal signs. Absent: distended, tenderness - Extremities Exam Extremities exam: Present: warm, radial pulses palpable and symetrical. Absent : calf tenderness, cyanotic, pedal edema - Skin Skin exam: Present: dry, intact Internal Medicine: Result - Labs CBC & Chem 7: 11/09/16 07:55 11/09/16 04:14 Labs: Short CBC 11/09/16 11/09/16 Range/Units 05:39 07:55 WBC 10.3 11.3 H (4.3-11.1) K/mcL Hgb 6.5 L 6.7 L (11.5-15.4) g/dL Hct 20.4 L 20.8 L (35.3-44.9) % Plt Count 310 319 (140-400) K/mcL Neutrophils # 6.9 (1.6-8.9) K/mcL BMP 11/09/16 04:14 Sodium 134 L Potassium 4.5 Chloride 106 Carbon Dioxide 18 L BUN 29 H D Creatinine 1.65 H Glucose 320 H Calcium 8.3 L Consult Discharge Plan - Plan Referrals: Víctor Carter MD [Partnered Physician] - 11/17/16 2:00 pm Macario Diallo MD [Primary Care Provider] -
[2016-11-09] MEDS ORDERED: Furosemide 20 MG/2 ML VIAL IVP ONE (16:37)
[2016-11-09] MEDS ORDERED: Azithromycin 500 MG in D5% in Water 250 ML IVPB SCH (17:00)
[2016-11-09] MEDS ORDERED: 0.9 % Sodium Chloride 250 ML ONE (17:52)
[2016-11-10] MEDS: 0.9 % Sodium Chloride 1,000 ML IVC SCH (02:54)
[2016-11-10 05:38] LABS: Basophils # 0.1 K/mcL (0.0-0.2); Basophils % 0.4 %; Eosinophils # 0.2 K/mcL (0.0-0.6); Hematocrit 25.7 % (35.3-44.9); Hemoglobin 8.1 g/dL (11.5-15.4); Immature Granulocytes % 2.1 % (0-4); Lymphocytes # 3.5 K/mcL (0.6-4.6); Lymphocytes % 24.4 %; Mean Corpuscular HGB Conc 31.5 g/dL (31.6-35.5); Mean Corpuscular Hemoglobin 26.4 pg (28.0-33.3); Mean Corpuscular Volume 83.7 fL (83.0-100.0); Mean Platelet Volume 9.3 fL (9.4-12.4); Monocytes # 0.9 K/mcL (0.0-1.3); Monocytes % 6.1 %; Neutrophils # 9.6 K/mcL (1.6-8.9); Platelet Count 272 K/mcL (140-400); Red Blood Count 3.07 M/mcL (3.82-4.97); Red Cell Distribution Width 13.5 % (11.5-14.5)
[2016-11-10 05:56] LABS: Calcium 8.1 mg/dL (8.6-10.8); Potassium 3.9 mEq/L (3.5-4.5)
--- NOTE | 2016-11-10 06:43 | Urology Progress Note ---
Date of Encounter: 11/10/16 Time of Encounter: 06:42 - Assessment and Plan (1) Incomplete emptying of bladder Current Visit: No Status: Acute Assessment and plan: Continue Madden catheter upon discharge. She can follow up with Dr. Gutierrez in 1-2 weeks for discussion of her catheter. will sign off. (2) UTI (urinary tract infection) Current Visit: No Status: Acute Assessment and plan: Urine culture was negative. Consider transitioning to PO antibiotics once afebrile x 24 hours. Creatinine is improving. Appreciate IM and nephrology support. Qualifiers: Urinary tract infection type: acute cystitis Hematuria presence: without hematuria Qualified Code(s): N30.00 - Acute cystitis without hematuria Progress Note Narrative: Sleeping this morning. Urine has been clear from Madden. Objective Initial Vital Signs Temp Pulse Resp BP Pulse Ox 97.7 F 95 18 157/99 99 11/06/16 19:44 11/06/16 19:44 11/06/16 19:44 11/06/16 19:44 11/06/16 19:44 - General physical appearance Present: other (sleeping) - Genitourinary Urine Appearance: Present: Clear - Labs 11/10/16 04:55 11/10/16 04:55 Diabetes panel 11/10/16 Range/Units 04:55 Sodium 135 L (136-145) mEq/L Potassium 3.9 (3.5-4.5) mEq/L Chloride 106 (98-109) mEq/L Carbon Dioxide 19 (19-29) mEq/L BUN 24 H (7-20) mg/dL Creatinine 1.52 H (0.57-1.11) mg/dL Glucose 226 H (70-99) mg/dL Calcium 8.1 L (8.6-10.8) mg/dL Calcium panel 11/10/16 Range/Units 04:55 Calcium 8.1 L (8.6-10.8) mg/dL Pituitary panel 11/10/16 Range/Units 04:55 Sodium 135 L (136-145) mEq/L Potassium 3.9 (3.5-4.5) mEq/L Chloride 106 (98-109) mEq/L Carbon Dioxide 19 (19-29) mEq/L BUN 24 H (7-20) mg/dL Creatinine 1.52 H (0.57-1.11) mg/dL Glucose 226 H (70-99) mg/dL Calcium 8.1 L (8.6-10.8) mg/dL Adrenal panel 11/10/16 Range/Units 04:55 Sodium 135 L (136-145) mEq/L Potassium 3.9 (3.5-4.5) mEq/L Chloride 106 (98-109) mEq/L Carbon Dioxide 19 (19-29) mEq/L BUN 24 H (7-20) mg/dL Creatinine 1.52 H (0.57-1.11) mg/dL Glucose 226 H (70-99) mg/dL Calcium 8.1 L (8.6-10.8) mg/dL Consult Discharge Plan - Plan Referrals: Víctor Carter MD [Partnered Physician] - 11/17/16 2:00 pm Macario Diallo MD [Primary Care Provider] -
[2016-11-10] MEDS: Aspirin 81 MG TAB.CHEW PO SCH (07:57)
[2016-11-10] MEDS: Pantoprazole 40 MG VIAL IVP SCH (07:58)
[2016-11-10] MEDS: *HR* Heparin 5,000 UNIT/ML VIAL SQ SCH ×2 (07:58→18:24)
[2016-11-10] MEDS: Insulin LISPRO 300 UNITS/3 ML VIAL SQ SCH ×5 (08:00→22:05)
--- NOTE | 2016-11-10 08:50 | Nephrology Progress Note ---
Date of Encounter: 11/10/16 Time of Encounter: 08:48 - Assessment and Plan (1) MERNA (acute kidney injury) Current Visit: No Status: Resolved The patient's renal function is continuing to improve. She appears to be eating and drinking well. Urine output is excellent. I think we can discontinue the IV fluids. The patient is anxious to go home. From a renal standpoint it would be okay to discharge her home. She will need to have the Madden catheter in place and then follow-up with urology as an outpatient. (2) CKD stage 3 due to type 2 diabetes mellitus Current Visit: No Status: Chronic (3) Incomplete emptying of bladder Current Visit: No Status: Acute Subjective Interval history: Patient reports no complaints. She is anxious to go home. She received a blood transfusion yesterday. Hemoglobin is up to 8.1. Urine output is excellent. She appears to be eating and drinking well. Renal function continues to improve. Objective - Vital Signs Vital signs: Vital Signs Temp Pulse Resp BP Pulse Ox 11/10/16 07:00 99.0 F 102 18 116/67 90 11/10/16 03:32 98.6 F 72 16 107/58 11/09/16 21:36 98.4 F 103 16 105/52 90 11/09/16 21:32 90 11/09/16 21:15 98.4 F 103 16 105/52 90 11/09/16 18:15 99.6 F 105 16 105/51 11/09/16 18:09 92 11/09/16 18:00 98.0 F 102 18 98/58 11/09/16 15:15 93 11/09/16 15:06 100.7 F H 88 18 134/68 93 11/09/16 10:42 99.3 F 85 18 121/69 94 Intake and Output 11/09/16 11/10/16 11/10/16 23:59 07:59 15:59 Intake Total 500 / 500 650 / 650 Output Total 900 / 900 500 / 500 Balance -400 / -400 150 / 150 Intake: IV Fluids 200 / 200 650 / 650 0.9 % Sodium Chloride 1, 200 / 200 300 / 300 000 ML @ 50 mls/hr IVC . Q20H [facility] Rx#:[id number] Zithromax 500 mg In 250 / 250 Dextrose 5% 250 ML @ 252 mls/hr IVPB Q24H [facility] Rx#: [id number] Rocephin 1,000 MG In 100 / 100 Dextrose 5% (Minibag+) 100 ML 100 ML @ 200 mls/ hr IVPB Q24H [facility] Rx#: [id number] Blood Product 300 / 300 Rbcs Leuko Poor As-1 300 / 300 Unit [id number] Output: Catheter 900 / 900 500 / 500 Other: # Urine Diapers 1 # Bowel Movements 1 Weight 57.1 kg Blood Glucose* 220 258 Patient Weight 11/10/16 23:59 Weight 57.1 kg - General Appearance Exam: Patient is alert and oriented. She is in no acute distress. Lungs clear to auscultation. Heart regular rate and rhythm. There is no peripheral edema. Abdomen is soft. - Lab 11/10/16 04:55 11/10/16 04:55 Most recent lab results Calcium 8.1 mg/dL (8.6-10.8) L 11/10/16 04:55 Magnesium 1.6 mg/dL (1.6-2.6) 11/07/16 02:20 Consult Discharge Plan - Plan Referrals: Víctor Carter MD [Partnered Physician] - 11/17/16 2:00 pm Macario Diallo MD [Primary Care Provider] -
[2016-11-10] MEDS: Insulin DETEMIR 100 UNIT/ML X5UNITS SQ SCH ×2 (14:26→22:06)
[2016-11-10 15:14] LABS: Calcium 8.1 mg/dL (8.6-10.8); Potassium 4.9 mEq/L (3.5-4.5)
[2016-11-10 15:26] LABS: Basophils % 0.2 %; Eosinophils # 0.1 K/mcL (0.0-0.6); Eosinophils % 0.8 %; Hematocrit 24.5 % (35.3-44.9); Hemoglobin 7.9 g/dL (11.5-15.4); Immature Granulocytes % 1.9 % (0-4); Lymphocytes # 3.8 K/mcL (0.6-4.6); Lymphocytes % 22.5 %; Mean Corpuscular HGB Conc 32.2 g/dL (31.6-35.5); Mean Corpuscular Hemoglobin 26.5 pg (28.0-33.3); Mean Corpuscular Volume 82.2 fL (83.0-100.0); Monocytes # 1.1 K/mcL (0.0-1.3); Monocytes % 6.7 %; Neutrophils # 11.3 K/mcL (1.6-8.9); Platelet Count 262 K/mcL (140-400); Red Blood Count 2.98 M/mcL (3.82-4.97); Red Cell Distribution Width 13.6 % (11.5-14.5); Segmented Neutrophils % 67.9 %
[2016-11-10] MEDS ORDERED: Levofloxacin 750 MG/150 ML 750 MG/150 ML BAG IVPB SCH (16:00)
[2016-11-10] MEDS: Piperacillin/Tazobactam 3.375 GM in D5% in Water (Mini-Bag+) 100 ML IVPB SCH (18:24)
--- NOTE | 2016-11-10 18:51 | Internal Med Progress Note ---
Date of Encounter: 11/10/16 Time of Encounter: 12:00 - Assessment and plan (1) MERNA (acute kidney injury) Current Visit: No Status: Acute Assessment and plan: I appreciate nephrology input. Kidney ultrasound shows bilateral hydronephrosis. Patient had a Madden catheter placed yesterday. Creatinine improved dramatically. I will continue with IV fluids at 100 mL per hour. Normal saline IV. Avoid nephrotoxins. We will consult urology. (2) DVT prophylaxis Current Visit: No Status: Acute Assessment and plan: Subcutaneous heparin. (3) Dehydration Current Visit: No Status: Acute Assessment and plan: IV fluids. Encourage oral hydration. (4) UTI (urinary tract infection) Current Visit: No Status: Acute Assessment and plan: IV ceftriaxone. Follow up culture and sensitivity - no pathogens isolated. We will continue IV antibiotic empirically for 1 more day. Qualifiers: Urinary tract infection type: acute cystitis Hematuria presence: without hematuria Qualified Code(s): N30.00 - Acute cystitis without hematuria (5) Right upper lobe pneumonia Current Visit: Yes Status: Acute Assessment and plan: This appears to be worsening. White blood cell count going up, she continues to require oxygen which she does not use at home. we will stop ceftriaxone and add azithromycin and add Zosyn and Levaquin. Oxygen by nasal cannula. Check sputum culture if available. Obtain chest x-ray in the morning to evaluate for effusion or worsening pneumonia. Qualifiers: Pneumonia type: due to unspecified organism Qualified Code(s): J18.1 - Lobar pneumonia, unspecified organism (6) Anemia in chronic kidney disease Current Visit: Yes Status: Ruled-out Assessment and plan: She has anemia associated with chronic kidney disease, worsening today due to IV fluids. She received transfusion of 1 unit PRBC with goal of hemoglobin above 8. She had an appropriate response. - Subjective Interval history: 11/10/2016: She reports mild shortness of breath associated with cough and small amount of sputum production, no chest pain. Denies fevers and chills 11/09/2016: She reports some cough and congestion 1 sputum production. No chest pain or shortness of breath. 11/08/2016: The patient reports 0/10 abdominal pain. Her nausea and vomiting have resolved since yesterday. She was admitted to the hospital after she presented with nausea and vomiting and was found to be dehydrated and have an elevated creatinine of 4.6. The patient had been incontinent for the last 24 hours per nursing reports. - Constitutional Vitals: Temp Pulse Resp BP Pulse Ox 98.2 F 82 20 103/49 92 11/10/16 14:53 11/10/16 14:53 11/10/16 14:53 11/10/16 14:53 11/10/16 14:53 General appearance: Present: A&O X 3, no acute distress, answers questions appropriately - Eye Eye exam: Present: PERRL, conjuntiva pink, sclera anicteric Pupils: Present: PERRL - Respiratory Respiratory exam: Present: CTAB. Absent: accessory muscle use, rales, rhonchi, wheezes - Cardiovascular Cardiovascular exam: Present: RRR, +S1, +S2. Absent: diastolic murmur, gallop, rubs, systolic murmur - GI/Abdominal GI/Abdominal exam: Present: normal bowel sounds, soft, no peritoneal signs. Absent: distended, tenderness - Additional comments: Madden catheter in place draining clear yellow urine. Internal Medicine: Result - Labs CBC & Chem 7: 11/10/16 15:19 11/10/16 14:55 Labs: Short CBC 11/10/16 11/10/16 Range/Units 04:55 15:19 WBC 14.5 H 16.7 H (4.3-11.1) K/mcL Hgb 8.1 L 7.9 L (11.5-15.4) g/dL Hct 25.7 L 24.5 L (35.3-44.9) % Plt Count 272 262 (140-400) K/mcL Neutrophils # 9.6 H 11.3 H (1.6-8.9) K/mcL BMP 11/10/16 11/10/16 04:55 14:55 Sodium 135 L 133 L Potassium 3.9 4.9 H D Chloride 106 106 Carbon Dioxide 19 17 L BUN 24 H 25 H Creatinine 1.52 H 1.60 H Glucose 226 H 235 H Calcium 8.1 L 8.1 L Consult Discharge Plan - Plan Referrals: Víctor Carter MD [Partnered Physician] - 11/17/16 2:00 pm Macario Diallo MD [Primary Care Provider] -
[2016-11-11 04:31] LABS: Basophils % 0.3 %; Eosinophils # 0.2 K/mcL (0.0-0.6); Eosinophils % 1.2 %; Hematocrit 24.6 % (35.3-44.9); Hemoglobin 7.8 g/dL (11.5-15.4); Immature Granulocytes % 1.6 % (0-4); Lymphocytes # 3.3 K/mcL (0.6-4.6); Lymphocytes % 20.9 %; Mean Corpuscular HGB Conc 31.7 g/dL (31.6-35.5); Mean Corpuscular Hemoglobin 26.4 pg (28.0-33.3); Mean Corpuscular Volume 83.1 fL (83.0-100.0); Mean Platelet Volume 9.3 fL (9.4-12.4); Monocytes # 1.1 K/mcL (0.0-1.3); Monocytes % 6.8 %; Neutrophils # 10.8 K/mcL (1.6-8.9); Platelet Count 274 K/mcL (140-400); Red Blood Count 2.96 M/mcL (3.82-4.97); Red Cell Distribution Width 13.7 % (11.5-14.5); Segmented Neutrophils % 69.2 %
[2016-11-11 05:05] LABS: Calcium 8.2 mg/dL (8.6-10.8); Potassium 4.3 mEq/L (3.5-4.5)
[2016-11-11] MEDS: Piperacillin/Tazobactam 3.375 GM in D5% in Water (Mini-Bag+) 100 ML IVPB SCH ×2 (06:16→18:39)
[2016-11-11] MEDS: *HR* Heparin 5,000 UNIT/ML VIAL SQ SCH ×2 (06:20→18:38)
[2016-11-11] MEDS: Insulin DETEMIR 100 UNIT/ML X5UNITS SQ SCH ×2 (08:11→22:25)
[2016-11-11] MEDS: Insulin LISPRO 300 UNITS/3 ML VIAL SQ SCH ×7 (08:11→22:25)
[2016-11-11] MEDS: Aspirin 81 MG TAB.CHEW PO SCH (08:18)
[2016-11-11] MEDS: Ondansetron 4 MG/2 ML VIAL IVP PRN (08:19)
--- NOTE | 2016-11-11 18:16 | Internal Med Progress Note ---
Date of Encounter: 11/11/16 Time of Encounter: 14:00 - Assessment and plan (1) MERNA (acute kidney injury) Current Visit: No Status: Acute Assessment and plan: I appreciate nephrology input. Kidney ultrasound shows bilateral hydronephrosis. Patient had a Madden catheter placed yesterday. Creatinine improved dramatically. I will continue with IV fluids at 100 mL per hour. Normal saline IV. Avoid nephrotoxins. We will consult urology. (2) DVT prophylaxis Current Visit: No Status: Acute Assessment and plan: Subcutaneous heparin. (3) Dehydration Current Visit: No Status: Acute Assessment and plan: IV fluids. Encourage oral hydration. (4) UTI (urinary tract infection) Current Visit: No Status: Acute Assessment and plan: IV ceftriaxone. Follow up culture and sensitivity - no pathogens isolated. We will continue IV antibiotic empirically for 1 more day. Qualifiers: Urinary tract infection type: acute cystitis Hematuria presence: without hematuria Qualified Code(s): N30.00 - Acute cystitis without hematuria (5) Right upper lobe pneumonia Current Visit: Yes Status: Acute Assessment and plan: 11/11/2016: This appears to continue to get worse. Patient already receiving treatment with Zosyn and Levaquin. I will add Zyvox for MRSA coverage. I will obtain a noncontrast chest CT to further describe the right upper lobe and the nodular opacity in the left lung. Based on these findings I will consider pulmonary consult. I will add bronchodilators as needed for shortness of breath and obtain a sputum culture. She is at high risk for Ophelia tolerating complications due to worsening pneumonia and respiratory failure. White blood cell count continuing its trend, she continues to require oxygen which she does not use at home. we stopped ceftriaxone and azithromycin and added Zosyn and Levaquin. Oxygen by nasal cannula. Check sputum culture if available. Obtain chest x-ray in the morning to evaluate for effusion or worsening pneumonia. Qualifiers: Pneumonia type: due to unspecified organism Qualified Code(s): J18.1 - Lobar pneumonia, unspecified organism (6) Anemia in chronic kidney disease Current Visit: Yes Status: Ruled-out Assessment and plan: She has anemia associated with chronic kidney disease, worsening today due to IV fluids. She received transfusion of 1 unit PRBC with goal of hemoglobin above 8. She had an appropriate response. - Subjective Interval history: 11/11/2016: Patient feels worse today, more short of breath today has had nausea and vomiting, no fever chills or rigors. No abdominal pain. 11/10/2016: She reports mild shortness of breath associated with cough and small amount of sputum production, no chest pain. Denies fevers and chills 11/09/2016: She reports some cough and congestion 1 sputum production. No chest pain or shortness of breath. 11/08/2016: The patient reports 0/10 abdominal pain. Her nausea and vomiting have resolved since yesterday. She was admitted to the hospital after she presented with nausea and vomiting and was found to be dehydrated and have an elevated creatinine of 4.6. The patient had been incontinent for the last 24 hours per nursing reports. - Constitutional Vitals: Temp Pulse Resp BP Pulse Ox 98.2 F 79 16 105/96 95 11/11/16 14:46 11/11/16 14:46 11/11/16 14:46 11/11/16 14:46 11/11/16 14:46 General appearance: Present: A&O X 3, no acute distress, answers questions appropriately - Eye Eye exam: Present: PERRL, conjuntiva pink, sclera anicteric Pupils: Present: PERRL - Neck Neck exam general surgery: Present: supple, trachea midline. Absent: lymphadenopathy - Respiratory Respiratory exam: Present: rales (Fine right lung field crackles). Absent: accessory muscle use, rhonchi, wheezes - Cardiovascular Cardiovascular exam: Present: RRR, +S1, +S2. Absent: diastolic murmur, gallop, rubs, systolic murmur - GI/Abdominal GI/Abdominal exam: Present: normal bowel sounds, soft, no peritoneal signs. Absent: distended, tenderness - Extremities Exam Extremities exam: Present: warm, radial pulses palpable and symetrical. Absent : calf tenderness, cyanotic, pedal edema - Skin Skin exam: Present: dry, intact Internal Medicine: Result - Labs CBC & Chem 7: 11/11/16 04:00 11/11/16 04:00 Labs: Short CBC 11/11/16 Range/Units 04:00 WBC 15.7 H (4.3-11.1) K/mcL Hgb 7.8 L (11.5-15.4) g/dL Hct 24.6 L (35.3-44.9) % Plt Count 274 (140-400) K/mcL Neutrophils # 10.8 H (1.6-8.9) K/mcL BMP 11/11/16 04:00 Sodium 133 L Potassium 4.3 Chloride 105 Carbon Dioxide 18 L BUN 24 H Creatinine 1.61 H Glucose 108 H Calcium 8.2 L - Impressions Impressions I have reviewed this chest x-ray and I did agree with the radiologist's finding : There is a dense infiltrate in the right upper lobe. Chest X-Ray 11/11/16 06:00 IMPRESSION: 1. Interval worsening of the dense opacity in the right upper lobe compatible with pneumonia. Recommend treating the patient and following to resolution. 2. Interval worsening of diffuse airspace opacities as described. Stable trace effusions. 3. Nodular opacity in the left base measures 16 mm. Recommend continued attention on follow-up. If this opacity does not resolve, dedicated CT thorax is recommended. D/ / 11/11/2016 08:33:46 Yuliya Shepard MD / galilea Interpreting Provider: Yuliya Shepard MD Consult Discharge Plan - Plan Referrals: Víctor Carter MD [Partnered Physician] - 11/17/16 2:00 pm Macario Diallo MD [Primary Care Provider] -
[2016-11-11] MEDS ORDERED: Ipratropium/Albuterol Neb 3 ML IH PRN (18:19)
[2016-11-11] MEDS: Gabapentin 100 MG CAPSULE PO SCH (22:26)
[2016-11-12] MEDS: Piperacillin/Tazobactam 3.375 GM in D5% in Water (Mini-Bag+) 100 ML IVPB SCH ×3 (00:33→20:46)
[2016-11-12] MEDS: Ondansetron 4 MG/2 ML VIAL IVP PRN (00:39)
[2016-11-12] MEDS: *HR* Heparin 5,000 UNIT/ML VIAL SQ SCH ×2 (06:06→18:35)
[2016-11-12 06:19] LABS: Basophils % 0.4 %; Eosinophils # 0.2 K/mcL (0.0-0.6); Eosinophils % 2.2 %; Hematocrit 21.7 % (35.3-44.9); Hemoglobin 6.9 g/dL (11.5-15.4); Immature Granulocytes % 1.5 % (0-4); Lymphocytes # 2.9 K/mcL (0.6-4.6); Lymphocytes % 26.4 %; Mean Corpuscular HGB Conc 31.8 g/dL (31.6-35.5); Mean Corpuscular Hemoglobin 26.5 pg (28.0-33.3); Mean Corpuscular Volume 83.5 fL (83.0-100.0); Mean Platelet Volume 9.7 fL (9.4-12.4); Monocytes # 0.8 K/mcL (0.0-1.3); Monocytes % 6.9 %; Neutrophils # 6.8 K/mcL (1.6-8.9); Platelet Count 281 K/mcL (140-400); Red Cell Distribution Width 13.8 % (11.5-14.5); Segmented Neutrophils % 62.6 %
[2016-11-12 06:25] LABS: Potassium 4.2 mEq/L (3.5-4.5)
[2016-11-12 07:48] LABS: Bilirubin,Urine Negative (Negative); Blood,Urine Small (Negative); Clarity,Urine Cloudy (Clear); Color,Urine Yellow (Yellow); Glucose,Urine (UA) 250 mg/dL (Normal); Ketones,Urine Negative (Negative); Leukocyte Esterase,Urine Large (Negative); Nitrite,Urine Negative (Negative); Protein,Urine 100 mg/dL (Neg-Trace); Specific Gravity,Urine 1.017 (1.010-1.025); Urobilinogen,Urine Normal (Normal)
[2016-11-12] MEDS: Insulin LISPRO 300 UNITS/3 ML VIAL SQ SCH ×5 (07:53→20:47)
[2016-11-12 07:55] LABS: Renal Epithelial Cells,Urine Moderate per hpf (None-Few); Squamous Epithelial Cell,Urine Many per lpf (None-Few); WBC,Urine TNTC per hpf (0-3); Yeast,Urine Many per hpf (None Seen)
[2016-11-12 07:56] LABS: Amorphous Sediment,Urine Moderate (Few)
[2016-11-12 07:57] LABS: Bacteria,Urine Moderate per hpf (None-Few); Mucus,Urine Moderate (Few)
--- NOTE | 2016-11-12 08:49 | Nephrology Progress Note ---
Date of Encounter: 11/12/16 Time of Encounter: 08:47 - Assessment and Plan (1) MERNA (acute kidney injury) Current Visit: No Status: Resolved The patient's creatinine is not quite as good today as it was yesterday. Perhaps worsening anemia is contributing to this. It may be worthwhile to transfuse the patient again. The etiology of her anemia is uncertain. She will likely require some type of full evaluation to determine the etiology. (2) CKD stage 3 due to type 2 diabetes mellitus Current Visit: No Status: Chronic (3) Incomplete emptying of bladder Current Visit: No Status: Acute Subjective Interval history: Patient reports no new complaints. Recent chest x-ray and CT scan of the chest suggested worsening pneumonia on the right side. Renal function is a bit worse today compared to yesterday. Hemoglobin is back down to 6.9. Vital signs appear stable. Urine output is approximately 1.4 L over the past 24 hours. Objective - Vital Signs Vital signs: Vital Signs Temp Pulse Resp BP Pulse Ox 11/12/16 07:20 97.4 F L 66 16 116/74 94 11/12/16 04:37 97.8 F 75 15 115/69 92 11/12/16 00:59 98.0 F 73 16 93/58 92 11/11/16 21:09 97.9 F 81 14 107/71 93 11/11/16 14:46 98.2 F 79 16 105/96 95 11/11/16 12:19 98.7 F 85 18 137/95 95 Intake and Output 11/11/16 11/12/16 11/12/16 23:59 07:59 15:59 Intake Total 400 / 400 580 / 580 Output Total 375 / 375 Balance 400 / 400 205 / 205 Intake: IV Fluids 400 / 400 100 / 100 Zyvox 600mg/300mL 600 mg 300 / 300 In 300 ml @ 150 mls/hr IVPB Q12HR VIKA Rx#: [id number] Zosyn 3.375 GM In 100 / 100 100 / 100 Dextrose 5% (Minibag+) 100 ML 100 ML @ 25 mls/hr IVPB Q8HR VIKA Rx#: [id number] Oral 480 / 480 Output: Catheter 375 / 375 Other: Weight 58.2 kg Blood Glucose* 438 265 Patient Weight 11/12/16 23:59 Weight 58.2 kg - General Appearance Exam: Patient is alert and oriented. She is in no acute distress. Lungs coarse breath sounds bilaterally. Some rhonchi on the right. Heart regular rate and rhythm. Abdomen is benign. There is no peripheral edema. - Lab 11/12/16 05:45 11/12/16 05:45 Most recent lab results Calcium 8.0 mg/dL (8.6-10.8) L 11/12/16 05:45 Magnesium 1.6 mg/dL (1.6-2.6) 11/07/16 02:20 Consult Discharge Plan - Plan Referrals: Víctor Carter MD [Partnered Physician] - 11/17/16 2:00 pm
[2016-11-12] MEDS: Aspirin 81 MG TAB.CHEW PO SCH (10:06)
[2016-11-12] MEDS: Gabapentin 100 MG CAPSULE PO SCH (10:06)
[2016-11-12] MEDS: Insulin DETEMIR 100 UNIT/ML X5UNITS SQ SCH ×2 (10:07→20:48)
[2016-11-12] MEDS ORDERED: 0.9 % Sodium Chloride 500 ML IVC ONE (10:32)
[2016-11-12] MEDS: Ipratropium/Albuterol Neb 3 ML IH SCH ×4 (11:25→19:55)
[2016-11-12 11:32] LABS: % Iron Saturation 37 % (15-50); Iron 55 mcg/dL (50-170); Transferrin 107 mg/dL (180-382)
[2016-11-12] MEDS: 0.9 % Sodium Chloride 1,000 ML IVC SCH (11:57)
[2016-11-12 12:27] LABS: Ferritin 485 ng/ml (5-204)
[2016-11-12 12:38] LABS: Folate 6.9 ng/mL (7.0-31.4)
[2016-11-12] MEDS ORDERED: 0.9 % Sodium Chloride 250 ML ONE (12:48)
[2016-11-12] MEDS ORDERED: Levofloxacin 500 MG/100 ML 500 MG/100 ML BAG IVPB SCH (16:00)
[2016-11-12 17:08] LABS: Bilirubin,Direct 0.1 mg/dL (0.0-0.5); Bilirubin,Indirect 0.1 mg/dL (0.0-1.2); Bilirubin,Total 0.2 mg/dL (0.2-1.2); Calcium 7.8 mg/dL (8.6-10.8); Magnesium 1.1 mg/dL (1.6-2.6); Phosphorous 2.5 mg/dL (2.3-4.7)
[2016-11-12 17:09] LABS: Albumin 1.5 g/dL (3.5-5.0); Albumin/Globulin Ratio 0.2 (1.1-2.2); Globulin 6.5 g/dL (2.4-3.5)
[2016-11-12] MEDS ORDERED: 0.9 % Sodium Chloride Mini Bag 100 ML ONE (18:07)
[2016-11-12] MEDS ORDERED: Magnesium Sulfate 2 GM in D5% in Water 100 ML IVPB STA (20:05)
--- NOTE | 2016-11-12 20:06 | Internal Med Progress Note ---
Date of Encounter: 11/12/16 Time of Encounter: 10:00 - Assessment and plan (1) Sepsis Current Visit: No Status: Acute Assessment and plan: Source is to pneumonia. CT of the chest revealed multifocal right-sided pneumonia. Patient is improving clinically. Continue empiric antibiotics with Zyvox, Levaquin and Zosyn.. Qualifiers: Sepsis type: sepsis due to unspecified organism Qualified Code(s): A41.9 - Sepsis, unspecified organism (2) Acute respiratory failure with hypoxemia Current Visit: Yes Status: Acute Assessment and plan: Secondary to multifocal pneumonia. Patient requiring 3 L of oxygen via nasal cannula. We will continue empiric antibiotics. start albuterol Atrovent nebulizations and Mucinex (3) PNA (pneumonia) Current Visit: Yes Status: Acute Assessment and plan: Bacterial pneumonia. Plan as above. Qualifiers: Pneumonia type: due to unspecified organism Laterality: right Lung location: upper lobe of lung Qualified Code(s): J18.1 - Lobar pneumonia, unspecified organism (4) MERNA (acute kidney injury) Current Visit: No Status: Acute Assessment and plan: Prerenal due to infection and anemia. Appreciate nephrology recommendations. Continue IV fluids. Transfuse 2 units of packed red blood cells. Close monitoring of kidney function. Avoid nephrotoxic agents as possible. (5) Anemia Current Visit: No Status: Chronic Assessment and plan: Diarrhea secondary to chronic kidney disease. Because monitoring. Hemoglobin today 6.9. We will transfuse 2 units of packed red blood cells. No Bleeding. Qualifiers: Anemia type: unspecified type Qualified Code(s): D64.9 - Anemia, unspecified (6) CKD stage 3 due to type 2 diabetes mellitus Current Visit: No Status: Chronic (7) Diabetes mellitus Current Visit: No Status: Chronic Assessment and plan: Patient refuses Levemir and sliding scale for the past 2 days. She just agreed yesterday night. Continue sliding scale. Continue Levemir. Diabetic diet. Qualifiers: Diabetes mellitus type: type 2 Diabetes mellitus complication status: with hyperglycemia Diabetes mellitus halfway insulin use: with predatory animal exterminator use Qualified Code(s): E11.65 - Type 2 diabetes mellitus with hyperglycemia; Z79.4 - intermediate project manager (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 (8) HTN (hypertension) Current Visit: No Status: Chronic Assessment and plan: Blood pressure is adequate. Qualifiers: Hypertension type: essential hypertension Qualified Code(s): I10 - Essential (primary) hypertension (9) Hypomagnesemia Current Visit: No Status: Acute Assessment and plan: Replete - Subjective Interval history: Patient reports less shortness of breath. Still having mild productive cough. - Constitutional Vitals: Temp Pulse Resp BP Pulse Ox 97.2 F L 78 16 132/66 96 11/12/16 18:34 11/12/16 18:34 11/12/16 19:57 11/12/16 18:34 11/12/16 19:57 General appearance: Present: cooperative, A&O X 3, pleasant, no acute distress, answers questions appropriately - Neck Neck exam general surgery: Present: supple, trachea midline. Absent: lymphadenopathy - Respiratory Respiratory exam: Present: decreased breath sounds (At the right side.) - Cardiovascular Cardiovascular exam: Present: RRR - GI/Abdominal GI/Abdominal exam: Present: normal bowel sounds, soft. Absent: distended, tenderness - Extremities Exam Extremities exam: Absent: pedal edema - Back Exam Back exam: Absent: CVA tenderness (L), CVA tenderness (R) - Neurological Exam Neurological exam: Present: alert, oriented X3, no focal deficits, strengths equal and symetr throughout. Absent: facial droop, speech deficit - Skin Skin exam: Absent: rash Internal Medicine: Result - Labs CBC & Chem 7: 11/12/16 05:45 11/12/16 16:28 Labs: Short CBC 11/12/16 Range/Units 05:45 WBC 10.9 (4.3-11.1) K/mcL Hgb 6.9 L (11.5-15.4) g/dL Hct 21.7 L (35.3-44.9) % Plt Count 281 (140-400) K/mcL Neutrophils # 6.8 (1.6-8.9) K/mcL BMP 11/12/16 11/12/16 05:45 16:28 Sodium 131 L 129 L Potassium 4.2 4.0 Chloride 101 98 Carbon Dioxide 23 22 BUN 26 H 26 H Creatinine 1.94 H 1.81 H Glucose 234 H 338 H Calcium 8.0 L 7.8 L Liver Function 11/12/16 Range/Units 16:28 Total Bilirubin 0.2 (0.2-1.2) mg/dL Direct Bilirubin 0.1 (0.0-0.5) mg/dL AST 19 (5-34) Units/L ALT 12 (0-55) Units/L Alkaline Phosphatase 245 H (38-126) Units/L Albumin 1.5 L (3.5-5.0) g/dL Urine 11/12/16 Range/Units 07:20 Urine Color Yellow (Yellow) Urine Clarity Cloudy A (Clear) Urine pH 6.0 (5.0-8.0) pH Units Ur Specific [place]eter[place] 1.017 (1.010-1.025) Urine Protein 100 H (Neg-Trace) mg/dL Urine Glucose (UA) 250 H (Normal) mg/dL - Impressions Impressions Chest X-Ray 11/11/16 06:00 IMPRESSION: 1. Interval worsening of the dense opacity in the right upper lobe compatible with pneumonia. Recommend treating the patient and following to resolution. 2. Interval worsening of diffuse airspace opacities as described. Stable trace effusions. 3. Nodular opacity in the left base measures 16 mm. Recommend continued attention on follow-up. If this opacity does not resolve, dedicated CT thorax is recommended. D/ / 11/11/2016 08:33:46 Yuliya Shepard MD / galilea Interpreting Provider: Yuliya Shepard MD Consult Discharge Plan - Plan Referrals: Víctor Carter MD [Partnered Physician] - 11/17/16 2:00 pm
[2016-11-12] MEDS ORDERED: Gabapentin 100 MG CAPSULE PO SCH (21:00)
[2016-11-13] MEDS: Ipratropium/Albuterol Neb 3 ML IH SCH ×6 (00:38→21:41)
[2016-11-13] MEDS ORDERED: Magnesium Sulfate 1 GM in D5% in Water 100 ML IVPB ONE (01:00)
[2016-11-13] MEDS: *HR* Heparin 5,000 UNIT/ML VIAL SQ SCH ×2 (05:19→16:52)
[2016-11-13 06:02] LABS: Albumin/Globulin Ratio 0.2 (1.1-2.2); Bilirubin,Total 0.2 mg/dL (0.2-1.2); Globulin 6.2 g/dL (2.4-3.5); Magnesium 1.7 mg/dL (1.6-2.6); Phosphorous 2.8 mg/dL (2.3-4.7); Potassium 4.4 mEq/L (3.5-4.5); Total Protein 7.6 g/dL (6.0-8.3)
[2016-11-13 06:06] LABS: Albumin 1.4 g/dL (3.5-5.0)
[2016-11-13] MEDS: Piperacillin/Tazobactam 3.375 GM in D5% in Water (Mini-Bag+) 100 ML IVPB SCH (07:31)
[2016-11-13 07:46] LABS: Basophils % 0.3 %; Eosinophils # 0.1 K/mcL (0.0-0.6); Eosinophils % 1.1 %; Hematocrit 25.1 % (35.3-44.9); Hemoglobin 8.1 g/dL (11.5-15.4); Immature Granulocytes % 1.3 % (0-4); Immature Platelets 2.3 % (1.1-6.1); Lymphocytes # 1.7 K/mcL (0.6-4.6); Lymphocytes % 14.1 %; Mean Corpuscular HGB Conc 32.3 g/dL (31.6-35.5); Mean Corpuscular Hemoglobin 26.8 pg (28.0-33.3); Mean Corpuscular Volume 83.1 fL (83.0-100.0); Mean Platelet Volume 9.6 fL (9.4-12.4); Monocytes # 0.8 K/mcL (0.0-1.3); Monocytes % 6.6 %; Platelet Count 282 K/mcL (140-400); Red Blood Count 3.02 M/mcL (3.82-4.97); Red Cell Distribution Width 14.2 % (11.5-14.5); Segmented Neutrophils % 76.6 %
[2016-11-13] MEDS: Insulin LISPRO 300 UNITS/3 ML VIAL SQ SCH ×4 (08:06→21:49)
[2016-11-13] MEDS: Insulin DETEMIR 100 UNIT/ML X5UNITS SQ SCH ×2 (08:11→21:48)
[2016-11-13 09:25] LABS: Calcium 8.3 mg/dL (8.6-10.8); Potassium 4.1 mEq/L (3.5-4.5)
[2016-11-13 09:27] LABS: Beta-Hydroxybutyric Acid 0.11 mmol/L (0.02-0.27)
[2016-11-13] MEDS: Aspirin 81 MG TAB.CHEW PO SCH (09:36)
[2016-11-13] MEDS: 0.9 % Sodium Chloride 1,000 ML IVC SCH ×3 (09:37→21:44)
[2016-11-13] MEDS ORDERED: 0.9 % Sodium Chloride 500 ML IVC ONE (11:22)
[2016-11-13] MEDS: Ondansetron 4 MG/2 ML VIAL IVP PRN ×2 (15:32→21:48)
[2016-11-13 17:54] LABS: Calcium 8.3 mg/dL (8.6-10.8); Potassium 4.3 mEq/L (3.5-4.5)
--- NOTE | 2016-11-13 18:26 | Internal Med Progress Note ---
Date of Encounter: 11/13/16 Time of Encounter: 09:30 - Assessment and plan (1) Sepsis Current Visit: No Status: Acute Assessment and plan: Source is multifocal pneumonia. CT of the chest revealed multifocal right-sided pneumonia. negative blood and urine cultures Patient is improving clinically. Continue empiric antibiotics with Zyvox, and Levaquin. Stop Zosyn. Qualifiers: Sepsis type: sepsis due to unspecified organism Qualified Code(s): A41.9 - Sepsis, unspecified organism (2) Acute respiratory failure with hypoxemia Current Visit: Yes Status: Acute Assessment and plan: Secondary to multifocal pneumonia. Patient requiring 3 L of oxygen via nasal cannula. We will continue empiric antibiotics, albuterol Atrovent nebulizations and Mucinex (3) PNA (pneumonia) Current Visit: Yes Status: Acute Assessment and plan: Bacterial pneumonia. Plan as above. Qualifiers: Pneumonia type: due to unspecified organism Laterality: right Lung location: upper lobe of lung Qualified Code(s): J18.1 - Lobar pneumonia, unspecified organism (4) MERNA (acute kidney injury) Current Visit: No Status: Acute Assessment and plan: Prerenal due to infection and anemia. 11/12: Transfused 2 units of packed red blood cells. Appreciate nephrology recommendations. kidney function at 4am was worse, repeat stat BMP shows no DKA and improvement of kidney function. give NS bolus. stop IV Zosyn. continue IV fluids. Close monitoring of kidney function. Avoid nephrotoxic agents as possible. (5) Anemia Current Visit: No Status: Chronic Assessment and plan: Likely secondary to chronic kidney disease. 11/12: Hemoglobin 6.9. transfused 2 units of packed red blood cells. today, hgb is 8. No Bleeding. Patient is hemodynamically stable. Close monitoring Qualifiers: Anemia type: unspecified type Qualified Code(s): D64.9 - Anemia, unspecified (6) CKD stage 3 due to type 2 diabetes mellitus Current Visit: No Status: Chronic (7) Diabetes mellitus Current Visit: No Status: Chronic Assessment and plan: Patient refused Levemir and sliding scale 11/09-11/10. Patient agreed on Levemir the night of November 11. Continue sliding scale. Continue Levemir. Diabetic diet. 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 Qualifiers: Hypertension type: essential hypertension Qualified Code(s): I10 - Essential (primary) hypertension (9) Hypomagnesemia Current Visit: No Status: Acute Assessment and plan: Corrected - Subjective Interval history: Patient had an spell of severe productive cough right after her night nebulization. her cough is better now. no chest pain. shortness of breath is better at rest. - Constitutional Vitals: Temp Pulse Resp BP Pulse Ox 97.5 F L 85 16 146/68 93 11/13/16 17:04 11/13/16 17:04 11/13/16 17:04 11/13/16 17:04 11/13/16 17:04 General appearance: Present: cooperative, A&O X 3, pleasant, no acute distress, answers questions appropriately - Respiratory Respiratory exam: Present: decreased breath sounds, rales (right lung field) - Cardiovascular Cardiovascular exam: Present: RRR - GI/Abdominal GI/Abdominal exam: Present: normal bowel sounds, soft. Absent: distended, tenderness - Extremities Exam Extremities exam: Absent: pedal edema - Neurological Exam Neurological exam: Present: alert, oriented X3, no focal deficits, strengths equal and symetr throughout. Absent: facial droop, speech deficit - Skin Skin exam: Absent: rash Internal Medicine: Result - Labs CBC & Chem 7: 11/13/16 07:12 11/13/16 17:08 Labs: Short CBC 11/13/16 Range/Units 07:12 WBC 11.7 H (4.3-11.1) K/mcL Hgb 8.1 L (11.5-15.4) g/dL Hct 25.1 L (35.3-44.9) % Plt Count 282 (140-400) K/mcL Neutrophils # 9.0 H (1.6-8.9) K/mcL BMP 11/13/16 11/13/16 11/13/16 04:39 09:02 17:08 Sodium 129 L 129 L 132 L Potassium 4.4 4.1 4.3 Chloride 99 100 102 Carbon Dioxide 17 L 18 L 18 L BUN 24 H 23 H 21 H Creatinine 2.01 H 1.85 H 1.63 H Glucose 485 H 390 H 201 H Calcium 8.0 L 8.3 L 8.3 L Liver Function 11/13/16 Range/Units 04:39 Total Bilirubin 0.2 (0.2-1.2) mg/dL AST 11 (5-34) Units/L ALT 11 (0-55) Units/L Alkaline Phosphatase 239 H (38-126) Units/L Albumin 1.4 L (3.5-5.0) g/dL Consult Discharge Plan - Plan Referrals: Víctor Carter MD [Partnered Physician] - 11/17/16 2:00 pm
[2016-11-13 19:17] LABS: Bilirubin,Urine Negative (Negative); Blood,Urine Small (Negative); Clarity,Urine Cloudy (Clear); Color,Urine Yellow (Yellow); Glucose,Urine (UA) >=1000 mg/dL (Normal); Ketones,Urine Negative (Negative); Leukocyte Esterase,Urine Moderate (Negative); Nitrite,Urine Negative (Negative); Protein,Urine 30 mg/dL (Neg-Trace); Specific Gravity,Urine 1.012 (1.010-1.025); Urobilinogen,Urine Normal (Normal)
[2016-11-13 19:19] LABS: Hyaline Casts,Urine Moderate per lpf (None-Few); Squamous Epithelial Cell,Urine Moderate per lpf (None-Few); WBC,Urine TNTC per hpf (0-3)
[2016-11-13 19:33] LABS: Bacteria,Urine Few per hpf (None-Few); Yeast,Urine Few per hpf (None Seen)
[2016-11-14] MEDS: Ondansetron 4 MG/2 ML VIAL IVP PRN (03:23)
[2016-11-14] MEDS: Ipratropium/Albuterol Neb 3 ML IH SCH ×2 (03:58→09:40)
[2016-11-14] MEDS: *HR* Heparin 5,000 UNIT/ML VIAL SQ SCH (05:38)
[2016-11-14 06:37] LABS: Basophils % 0.3 %; Eosinophils # 0.2 K/mcL (0.0-0.6); Eosinophils % 2.7 %; Hemoglobin 8.9 g/dL (11.5-15.4); Immature Granulocytes % 0.7 % (0-4); Lymphocytes # 1.8 K/mcL (0.6-4.6); Lymphocytes % 20.1 %; Mean Corpuscular HGB Conc 31.8 g/dL (31.6-35.5); Mean Corpuscular Hemoglobin 26.8 pg (28.0-33.3); Mean Corpuscular Volume 84.3 fL (83.0-100.0); Mean Platelet Volume 9.4 fL (9.4-12.4); Monocytes # 0.7 K/mcL (0.0-1.3); Monocytes % 7.4 %; Neutrophils # 6.2 K/mcL (1.6-8.9); Platelet Count 291 K/mcL (140-400); Red Blood Count 3.32 M/mcL (3.82-4.97); Red Cell Distribution Width 14.2 % (11.5-14.5); Segmented Neutrophils % 68.8 %
[2016-11-14 06:53] LABS: Calcium 8.2 mg/dL (8.6-10.8); Magnesium 1.1 mg/dL (1.6-2.6); Potassium 4.1 mEq/L (3.5-4.5)
[2016-11-14] MEDS: 0.9 % Sodium Chloride 1,000 ML IVC SCH (07:09)
[2016-11-14] MEDS ORDERED: Magnesium Sulfate 2 GM in D5% in Water 100 ML IVPB STA (08:02)
[2016-11-14] MEDS ORDERED: 0.9 % Sodium Chloride 1,000 ML IVC SCH (08:05)
[2016-11-14] MEDS: Insulin LISPRO 300 UNITS/3 ML VIAL SQ SCH ×2 (08:18→11:55)
--- NOTE | 2016-11-14 09:58 | Event Note ---
Date of Encounter: 11/14/16 Time of Encounter: 09:58 Patient's renal function has returned to baseline. Nephrology will sign off. Please call again if needed.
[2016-11-14] MEDS: Aspirin 81 MG TAB.CHEW PO SCH (10:24)
[2016-11-14] MEDS: Insulin DETEMIR 100 UNIT/ML X5UNITS SQ SCH (10:31)
[2016-11-14 11:33] VITALS: BP 145/70
--- NOTE | 2016-11-14 11:39 | Discharge Summary ---
Date of Encounter: 11/14/16 Time of Encounter: 10:45 - Discharge Diagnosis (1) Sepsis Priority: Primary Status: Acute Qualifiers: Sepsis type: sepsis due to unspecified organism Qualified Code(s): A41.9 - Sepsis, unspecified organism (2) Acute respiratory failure with hypoxemia Priority: Primary Status: Acute (3) PNA (pneumonia) Priority: Primary Status: Acute Qualifiers: Pneumonia type: due to unspecified organism Laterality: right Lung location: upper lobe of lung Qualified Code(s): J18.1 - Lobar pneumonia, unspecified organism (4) MERNA (acute kidney injury) Priority: Primary Status: Acute (5) Anemia Priority: Secondary Status: Chronic Qualifiers: Anemia type: unspecified type Qualified Code(s): D64.9 - Anemia, unspecified (6) CKD stage 3 due to type 2 diabetes mellitus Priority: Secondary Status: Chronic (7) Diabetes mellitus Priority: Primary Status: Acute Comments: Diabetes mellitus with hyperglycemia. Qualifiers: Diabetes mellitus type: type 2 Diabetes mellitus complication status: with hyperglycemia Diabetes mellitus nursing home insulin use: with predatory animal exterminator use Qualified Code(s): E11.65 - Type 2 diabetes mellitus with hyperglycemia; Z79.4 - joint terminal attack controller (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 (8) HTN (hypertension) Priority: Secondary Status: Chronic Qualifiers: Hypertension type: essential hypertension Qualified Code(s): I10 - Essential (primary) hypertension (9) Hypomagnesemia Priority: Primary Status: Acute - Discharge Medications Prescriptions: Doxycycline 100 mg PO BID #14 capsule Levofloxacin [Levaquin] 750 mg PO Q48H #3 tablet Pantoprazole Sodium 40 mg PO DAILY #14 tablet.dr Home Medications: Metoprolol [Lopressor] 12.5 mg PO BID 03/01/16 [History] Pravastatin Sodium 10 mg PO HS 03/01/16 [History] Aspirin 81 mg PO DAILY 05/20/16 [History] Magnesium Oxide [Mag-Ox] 400 mg PO BID #60 tablet 06/22/16 [Rx] Docusate [Colace] 100 mg PO BID PRN #0 capsule 11/14/16 [Rx] Doxycycline 100 mg PO BID #14 capsule 11/14/16 [Rx] GuaiFENesin ER [Mucinex] 600 mg PO BID 7 Days 11/14/16 [Rx] Insulin Glargine,Hum.rec.anlog [Lantus Solostar] 20 units SQ HS #0 11/14/16 [Rx ] Ipratropium/Albuterol Neb [Duoneb] 3 ml IH [id number] inhsol 11/14/16 [Rx] Levofloxacin [Levaquin] 750 mg PO Q48H #3 tablet 11/14/16 [Rx] Pantoprazole Sodium 40 mg PO DAILY #14 tablet. 11/14/16 [Rx] Allergies/Adverse Reactions: Allergies acetaminophen [From Tylenol] Allergy (Verified 11/06/16 19:44) See Comments Influenza Virus Vaccines Allergy (Verified 07/03/16 08:29) See Comments Patinet states "Last time I about lost my arm" Procedures/tests Complete & Pending: Procedures Performed prior 72 hours Category Date Time Status CT chest wo con [CT] Stat Cat Scan 11/11/16 18:08 Completed Date of admission: 11/07/16 03:01 Primary care physician: Macario Diallo MD Consults: 11/07/16 04:59 Consult to Nephrology [CONS] Routine Consulting Provider: [facility]INDER Reason for Consult: Acute renal failure Call Completed: No 11/07/16 12:36 Consult to Wound Care [CONS] Routine Reason for Consult: wound to lower extremity Time Notified: 12:38 Call Completed: No 11/08/16 17:28 Consult to Urology [CONS] Routine Consulting Provider: Urology [facility] Reason for Consult: Renal failure and bilateral hydronephrosis. Call Completed: Yes 11/11/16 00:48 OT [Consult to Occupational Therapy] [CONS] Routine Comment: Evaluate, develop and implement POC PT [Consult to Physical Therapy] [CONS] Routine Comment: Evaluate, develop and implement POC - Patient Status Disposition: Transfer Inpatient Rehab Fac Condition: Undetermined Functional capacity at discharge: uses cane/walker Overall status at discharge: patient is progressing back to baseline - Discharge Instructions Follow Up With: Macario Diallo MD [Primary Care Provider] - Gab Tavarez MD [Partnered Physician] - Darien Gutierrez MD [Partnered Physician] - 12/01/16 9:30 am (f/u in 1-2 weeks for discussion of naylor catheter) - Diet and Activity Activity: resume usual activities as tolerated, wear oxygen at all times Diet: diabetic diet, low salt diet Interval History: Patient was feeling better. Her shortness of breath and cough are improved compared to admission. Hospital course: Ms. Lacy is a 71 year old female with past medical history of diabetes mellitus , hypertension, and CKD 3 presented with a chief complaint of urinary frequency , nausea and vomiting. Patient was admitted with diagnosis of respiratory failure secondary to pneumonia, MERNA and urinary retention and had a Naylor catheter placed. CT of the chest revealed multifocal right-sided pneumonia. Urine culture and blood cultures were negative. She received IV fluids, oxygen supplementation, nebulizations, Mucinex, and empiric antibiotics with clinical improvement. She had episodes of hyperglycemia and her insulin dose was adjusted. PLAN: Repeat BMP and magnesium next Thursday. Patient will need a repeat CT of the chest in 4-6 weeks. - Time Spent with Patient Total time spent providing and/or coordinating discharge services: - Constitutional Vitals: Temp Pulse Resp BP Pulse Ox 98.0 F 80 14 145/70 93 11/14/16 11:32 11/14/16 11:32 11/14/16 11:32 11/14/16 11:32 11/14/16 11:32 General appearance: Present: cooperative, A&O X 3, pleasant, no acute distress, answers questions appropriately
[2016-11-14] MEDS ORDERED: Magnesium Sulfate 1 GM in D5% in Water 100 ML IVPB ONE (12:00)
--- NOTE | 2016-11-14 12:37 | Physician Discharge Referral ---
ExtendedCare Referral Info Transfer To: [facility] Provider in Charge: cindy Provider in Charge after Transfer: PCP Institutional Level of Care: Skilled - Diagnosis (1) Sepsis Status: Acute (2) Acute respiratory failure with hypoxemia Status: Acute (3) PNA (pneumonia) Status: Acute (4) MERNA (acute kidney injury) Status: Acute (5) Anemia Status: Chronic (6) CKD stage 3 due to type 2 diabetes mellitus Status: Chronic (7) Diabetes mellitus Status: Chronic (8) HTN (hypertension) Status: Chronic (9) Hypomagnesemia Status: Acute - Transfer Medications Prescriptions: Doxycycline 100 mg PO BID #14 capsule Levofloxacin [Levaquin] 750 mg PO Q48H #3 tablet Pantoprazole Sodium 40 mg PO DAILY #14 tablet. Home Medications: Metoprolol [Lopressor] 12.5 mg PO BID 03/01/16 [History] Pravastatin Sodium 10 mg PO HS 03/01/16 [History] Aspirin 81 mg PO DAILY 05/20/16 [History] Magnesium Oxide [Mag-Ox] 400 mg PO BID #60 tablet 06/22/16 [Rx] Docusate [Colace] 100 mg PO BID PRN #0 capsule 11/14/16 [Rx] Doxycycline 100 mg PO BID #14 capsule 11/14/16 [Rx] GuaiFENesin ER [Mucinex] 600 mg PO BID 7 Days 11/14/16 [Rx] Insulin Glargine,Hum.rec.anlog [Lantus Solostar] 20 units SQ HS #0 11/14/16 [Rx ] Ipratropium/Albuterol Neb [Duoneb] 3 ml IH [id number] inhsol 11/14/16 [Rx] Levofloxacin [Levaquin] 750 mg PO Q48H #3 tablet 11/14/16 [Rx] Pantoprazole Sodium 40 mg PO DAILY #14 tablet. 11/14/16 [Rx] Allergies/Adverse Reactions: Allergies acetaminophen [From Tylenol] Allergy (Verified 11/06/16 19:44) See Comments Influenza Virus Vaccines Allergy (Verified 07/03/16 08:29) See Comments Patinet states "Last time I about lost my arm" - Respiratory Orders Oxygen / L per min (2) Smoking Cessation: Smoking cessation has been advised. For more information, call the [employer] Tobacco Quit Line at 4-018-AVDV-NOW. - Lab Orders Lab Orders: Other (include drug levels w/frequency) (bmp and magnesium in [address] chest without contrast in 1 month) - Advance Directives Code Status: Full Code - Mobility Orders Ambulate - Rehabiliation Orders Rehab Potential: Good Rehab Orders: Evaluation for Physical Therapy, Evaluation for Occupational Therapy - Diet Orders No Added Salt (GWENDOLYN), No Concentrated Sweets (please make sure patient drinks at least 2 L of fluids per day.), Cardiac CERTIFICATION: I certify that the transfer of the above named patient to an Extended Care Facility is necessary for the continuing treatment of the diagnosis listed. The above information is true and accurate reflection of patient's current condition. Confidential - Redisclosure prohibited without a patient's written consent.
[2016-11-14] MEDS ORDERED: Pantoprazole 40 MG VIAL IVP SCH (12:45)
== END 2016-11-14 15:07 | DRG 871 ==
LOC: 3ANU 19:40 → EMEROO 19:40 → 3ANU 11-07 00:36 → SUATTDRO 11-07 03:01
PROVIDERS: ADMIT Internal Medicine; ATTEND Internal Medicine

== ENCOUNTER 2017-07-10 13:57 | Inpatient (IN) ==
[2017-07-10 15:10] LABS: Basophils % 0.3 %; Eosinophils # 0.2 K/mcL (0.0-0.6); Eosinophils % 2.4 %; Hematocrit 29.8 % (35.3-44.9); Hemoglobin 9.5 g/dL (11.5-15.4); Immature Granulocytes % 0.7 % (0-4); Lymphocytes # 2.5 K/mcL (0.6-4.6); Mean Corpuscular HGB Conc 31.9 g/dL (31.6-35.5); Mean Corpuscular Hemoglobin 26.1 pg (28.0-33.3); Mean Corpuscular Volume 81.9 fL (83.0-100.0); Mean Platelet Volume 9.3 fL (9.4-12.4); Monocytes # 0.6 K/mcL (0.0-1.3); Monocytes % 6.3 %; Neutrophils # 5.4 K/mcL (1.6-8.9); Platelet Count 481 K/mcL (140-400); Red Blood Count 3.64 M/mcL (3.82-4.97); Red Cell Distribution Width 14.4 % (11.5-14.5); Segmented Neutrophils % 61.3 %
[2017-07-10 15:23] LABS: Albumin 2.4 g/dL (3.5-5.0); Albumin/Globulin Ratio 0.3 (1.1-2.2); Bilirubin,Direct 0.1 mg/dL (0.0-0.5); Bilirubin,Indirect 0.1 mg/dL (0.0-1.2); Bilirubin,Total 0.2 mg/dL (0.2-1.2); Calcium 9.6 mg/dL (8.6-10.8); Globulin 8.1 g/dL (2.4-3.5); Potassium 6.3 mEq/L (3.5-4.5); Total Protein 10.5 g/dL (6.0-8.3)
--- NOTE | 2017-07-10 15:46 | Emergency Department Note ---
Disposition Clinical Impression: Acute kidney injury, Hyperkalemia Disposition: Admitted As Inpatient Condition: Fair Referrals: Macario Diallo MD [Primary Care Provider] - Forms: ED Satisfaction Letter, Work/School Release Time of Disposition: 15:51 General Adult HPI - General Chief complaint: ED General Medical Stated complaint: Kidney Failure per Dr. Diallo Time Seen by Provider: 07/10/17 15:26 Source: patient Mode of arrival: wheelchair Limitations: no limitations Nursing Notes Reviewed: Yes Vital Signs Reviewed: Yes - History of Present Illness HPI Narrative: 72-year-old female who was seen by her family doctor couple days ago and had lab work done and was found to have a creatinine 3.22. Her creatinine was 2.33 beginning of May. Patient is asymptomatic on arrival. She is sent in for worsening renal failure. Pt Subjective Complaint: Renal failure Onset (ago): week(s) Pain Scale: 0 - Related Data Home Medications Medication Instructions Recorded Confirmed Metoprolol [Lopressor] 12.5 mg PO BID 03/01/16 11/06/16 Pravastatin Sodium 10 mg PO HS 03/01/16 11/06/16 Aspirin 81 mg PO DAILY 05/20/16 11/06/16 Previous Rx's Medication Instructions Recorded Magnesium Oxide [Mag-Ox] 400 mg PO BID #60 tablet 06/22/16 Docusate [Colace] 100 mg PO BID PRN #0 capsule 11/14/16 Doxycycline 100 mg PO BID #14 capsule 11/14/16 GuaiFENesin ER [Mucinex] 600 mg PO BID 7 Days tbbp.12hr 11/14/16 Insulin Glargine,Hum.rec.anlog 20 units SQ HS #0 11/14/16 [Lantus Solostar] Ipratropium/Albuterol Neb [Duoneb] 3 ml IH [id number] inhsol 11/14/16 Levofloxacin [Levaquin] 750 mg PO Q48H #3 tablet 11/14/16 Pantoprazole Sodium 40 mg PO DAILY #14 tablet. 11/14/16 Allergies Allergy/AdvReac Type Severity Reaction Status Date / Time acetaminophen [From Tylenol] Allergy See Verified 11/06/16 19:44 Comments Influenza Virus Vaccines Allergy See Verified 07/03/16 08:29 Comments All systems ED: reviewed and negative except as stated. Constitutional: Denies: fever, chills, weakness, weight change Eyes: Denies: eye pain, eye discharge, vision change ENT ED: Denies: ear pain, throat pain, dental pain, hearing loss, epistaxis, congestion, dysphagia Cardiovascular: Denies: chest pain, palpitations, dyspnea on exertion, edema, syncope Respiratory: Denies: cough, dyspnea, wheezes, hemoptysis, stridor Gastrointestinal: Denies: abdominal pain, nausea, vomiting, diarrhea, constipation, hematemesis, melena, hematochezia Genitourinary: Denies: dysuria, frequency, hematuria, discharge Musculoskeletal: Denies: back pain, neck pain, arthralgia, myalgia Integumentary: Denies: rash, abrasion, lesions Neurological: Denies: headache, weakness, numbness, paresthesias, confusion, abnormal gait, vertigo Psychiatric: Denies: anxiety, depression, suicidal thoughts, homicidal thoughts , auditory hallucinations, visual hallucinations Endocrine: Denies: fatigue Hematological/Lymphatic: Denies: easy bleeding, easy bruising Allergic/Immunologic: Denies: facial swelling, urticaria Past Medical History - Past Medical History Medical history: Reports: diabetes, hyperlipidemia, hypertension, renal disease , other Surgical history: Reports: hysterectomy Psychiatric history: Reports: no psych history BOOKBINDING MACHINE OPERATOR history: Reports: no BOOKBINDING MACHINE OPERATOR history - Social History Smoking Status: Former smoker Smokeless Tobacco Status: No Alcohol use: Reports: none Drug use: Reports: none Physical Exam - General Limitations: no limitations General appearance: alert, in no apparent distress - Head Head exam: atraumatic, normocephalic, normal inspection - Eye Eye exam: Present: normal appearance, PERRL, EOMI - ENT ENT exam: normal exam, normal oropharynx, mucous membranes moist - Neck Neck exam: Present: normal inspection, full ROM, trachea midline - Chest Chest inspection: Present: normal inspection, symmetric chest wall rise - Respiratory Respiratory exam: Present: normal lung sounds bilaterally - Cardiovascular Cardiovascular exam: Present: regular rate, normal rhythm, normal heart sounds - Abdominal Exam Abdominal exam: Present: soft, Non-Tender. Absent: tenderness, distention, guarding, rebound, rigidity - Extremities Exam Extremities exam: Present: normal inspection, full ROM. Absent: tenderness, pedal edema - Expanded Lower Extremity Exam Neurovascular/Tendon exam: Absent: motor deficit, sensory deficit, tendon deficit Gait: not tested/not observed - Back Exam Back exam: Present: normal inspection, full ROM. Absent: tenderness - Neurological Exam Neurological exam: Present: alert, oriented X3. Absent: motor sensory deficit - Psychiatric Psychiatric exam: Present: normal affect, normal mood - Skin Skin exam: Present: warm, dry, intact, normal color Course - Reevaluation(s) Reevaluation #1: 72-year-old with renal insufficiency was found have worsening renal insufficiency and elevated potassium. Patient is a completely asymptomatic. Patient was given insulin, dextrose, bicarbonate, albuterol, Kayexalate. Time: 16:10 - Consultations Consultation #1: Discussed with Dr. Brantley, shruthi. Time: 16:10 Vital Signs Temperature 97.4 F L 07/10/17 13:58 Pulse Rate 92 07/10/17 13:58 Respiratory Rate 18 07/10/17 13:58 Blood Pressure 137/76 07/10/17 13:58 O2 Sat by Pulse Oximetry 100 07/10/17 13:58 Temperature 97.4 F L 07/10/17 13:58 Pulse Rate 86 07/10/17 15:41 Respiratory Rate 18 07/10/17 16:16 Blood Pressure 141/81 07/10/17 15:41 O2 Sat by Pulse Oximetry 92 07/10/17 16:16 Oxygen Delivery Oxygen Delivery Room Air Medical Decision Making - Lab Data Lab results reviewed: Yes I reviewed the patient's lab results. Result diagrams: 07/10/17 14:59 07/10/17 14:59 Lab Results 07/10/17 07/10/17 07/10/17 Range/Units 14:59 14:59 14:59 WBC 8.7 (4.3-11.1) K/mcL RBC 3.64 L (3.82-4.97) M/mcL Hgb 9.5 L (11.5-15.4) g/dL Hct 29.8 L (35.3-44.9) % MCV 81.9 L (83.0-100.0) fL MCH 26.1 L (28.0-33.3) pg MCHC 31.9 (31.6-35.5) g/dL RDW 14.4 (11.5-14.5) % Plt Count 481 H (140-400) K/mcL MPV 9.3 L (9.4-12.4) fL Immature Gran % 0.7 (0-4) % Seg Neutrophils % 61.3 % Lymphocytes % 29.0 % Monocytes % 6.3 % Eosinophils % 2.4 % Basophils % 0.3 % Neutrophils # 5.4 (1.6-8.9) K/mcL Lymphocytes # 2.5 (0.6-4.6) K/mcL Monocytes # 0.6 (0.0-1.3) K/mcL Eosinophils # 0.2 (0.0-0.6) K/mcL Basophils # 0.0 (0.0-0.2) K/mcL Sodium 129 L (136-145) mEq/L Potassium 6.3 H (3.5-4.5) mEq/L Chloride 103 (98-109) mEq/L Carbon Dioxide 13 L (19-29) mEq/L BUN 63 H (7-20) mg/dL Creatinine 3.62 H (0.57-1.11) mg/dL Est GFR ( Amer) 15 L (> 60) Est GFR (Non-Af Amer) 12 L (> 60) BUN/Creatinine Ratio 17 (6-26) Glucose 403 H (70-99) mg/dL Calculated Osmolality 303 H (280-300) Calcium 9.6 (8.6-10.8) mg/dL Total Bilirubin 0.2 (0.2-1.2) mg/dL Direct Bilirubin 0.1 (0.0-0.5) mg/dL Indirect Bilirubin 0.1 (0.0-1.2) mg/dL AST 8 (5-34) Units/L ALT 8 (0-55) Units/L Alkaline Phosphatase 200 H (38-126) Units/L Troponin I 0.02 (0-0.03) ng/mL Serum Total Protein 10.5 H (6.0-8.3) g/dL Albumin 2.4 L (3.5-5.0) g/dL Globulin 8.1 H (2.4-3.5) g/dL Albumin/Globulin Ratio 0.3 L (1.1-2.2) Urine Color (Yellow) Urine Clarity (Clear) Urine pH (5.0-8.0) pH Units Ur Specific [place] (1.010-1.025) Urine Protein (Neg-Trace) mg/dL Urine Glucose (UA) (Normal) mg/dL Urine Ketones (Negative) mg/dL Urine Blood (Negative) Urine Nitrite (Negative) Urine Bilirubin (Negative) Urine Urobilinogen (Normal) mg/dL Ur Leukocyte Esterase (Negative) Urine Microscopic RBC (0-3) per hpf Urine Microscopic WBC (0-3) per hpf Ur Squamous Epith Cells (None-Few) per lpf Urine Bacteria (None-Few) per hpf Hyaline Casts (None-Few) per lpf 07/10/17 Range/Units 15:34 WBC (4.3-11.1) K/mcL RBC (3.82-4.97) M/mcL Hgb (11.5-15.4) g/dL Hct (35.3-44.9) % MCV (83.0-100.0) fL MCH (28.0-33.3) pg MCHC (31.6-35.5) g/dL RDW (11.5-14.5) % Plt Count (140-400) K/mcL MPV (9.4-12.4) fL Immature Gran % (0-4) % Seg Neutrophils % % Lymphocytes % % Monocytes % % Eosinophils % % Basophils % % Neutrophils # (1.6-8.9) K/mcL Lymphocytes # (0.6-4.6) K/mcL Monocytes # (0.0-1.3) K/mcL Eosinophils # (0.0-0.6) K/mcL Basophils # (0.0-0.2) K/mcL Sodium (136-145) mEq/L Potassium (3.5-4.5) mEq/L Chloride (98-109) mEq/L Carbon Dioxide (19-29) mEq/L BUN (7-20) mg/dL Creatinine (0.57-1.11) mg/dL Est GFR ( Amer) (> 60) Est GFR (Non-Af Amer) (> 60) BUN/Creatinine Ratio (6-26) Glucose (70-99) mg/dL Calculated Osmolality (280-300) Calcium (8.6-10.8) mg/dL Total Bilirubin (0.2-1.2) mg/dL Direct Bilirubin (0.0-0.5) mg/dL Indirect Bilirubin (0.0-1.2) mg/dL AST (5-34) Units/L ALT (0-55) Units/L Alkaline Phosphatase (38-126) Units/L Troponin I (0-0.03) ng/mL Serum Total Protein (6.0-8.3) g/dL Albumin (3.5-5.0) g/dL Globulin (2.4-3.5) g/dL Albumin/Globulin Ratio (1.1-2.2) Urine Color Yellow (Yellow) Urine Clarity Turbid A (Clear) Urine pH 6.5 (5.0-8.0) pH Units Ur Specific [place] 1.012 (1.010-1.025) Urine Protein 100 H (Neg-Trace) mg/dL Urine Glucose (UA) 250 H (Normal) mg/dL Urine Ketones Negative (Negative) mg/dL Urine Blood Large H (Negative) Urine Nitrite Negative (Negative) Urine Bilirubin Negative (Negative) Urine Urobilinogen Normal (Normal) mg/dL Ur Leukocyte Esterase Large H (Negative) Urine Microscopic RBC 30-50 H (0-3) per hpf Urine Microscopic WBC TNTC H (0-3) per hpf Ur Squamous Epith Cells Many H (None-Few) per lpf Urine Bacteria Moderate H (None-Few) per hpf Hyaline Casts None Seen (None-Few) per lpf - EKG Data EKG #1 EKG attestation: Yes I reviewed and interpreted this EKG. EKG shows normal: sinus rhythm Rate: normal Rhythm: NSR T wave inversions noted in: II, III, v4, v5, v6 Interpretation: no acute changes
[2017-07-10 15:47] LABS: Bilirubin,Urine Negative (Negative); Blood,Urine Large (Negative); Clarity,Urine Turbid (Clear); Color,Urine Yellow (Yellow); Glucose,Urine (UA) 250 mg/dL (Normal); Ketones,Urine Negative (Negative); Leukocyte Esterase,Urine Large (Negative); Nitrite,Urine Negative (Negative); PH,Urine 6.5 pH Units (5.0-8.0); Protein,Urine 100 mg/dL (Neg-Trace); Specific Gravity,Urine 1.012 (1.010-1.025); Urobilinogen,Urine Normal (Normal)
[2017-07-10 15:49] LABS: Hyaline Casts,Urine None Seen per lpf (None-Few); RBC,Urine 30-50 per hpf (0-3); Squamous Epithelial Cell,Urine Many per lpf (None-Few); WBC,Urine TNTC per hpf (0-3)
[2017-07-10] MEDS ORDERED: Albuterol 2.5 MG/3 ML NEBULIZER IH ONE (15:49)
[2017-07-10] MEDS ORDERED: *HR* Dextrose 50 % in Water (Syg) 50 ML SYRINGE IVP ONE (15:49)
[2017-07-10] MEDS ORDERED: Sodium Bicarbonate 50 MEQ/50 ML VIAL IVP ONE (15:49)
[2017-07-10] MEDS ORDERED: Insulin Human Regular 10 UNIT in 0.9 % Sodium Chloride 10 ML IV ONE (15:49)
[2017-07-10] MEDS ORDERED: Albuterol 2.5 MG/3 ML NEBULIZER ONE (15:53)
[2017-07-10 16:04] LABS: Bacteria,Urine Moderate per hpf (None-Few)
[2017-07-10] MEDS: 0.9 % Sodium Chloride 1,000 ML IVC SCH (16:52)
[2017-07-10] MEDS ORDERED: Naloxone 0.4 MG/ML INJ IVP PRN (18:18)
[2017-07-10] MEDS ORDERED: CALCIUM GLUCONATE IVPB ONE (18:38)
[2017-07-10] MEDS ORDERED: SODIUM CHLORIDE 0.9% IVPB ONE (18:38)
[2017-07-10] MEDS ORDERED: Sod Bicarb 150mEq/D5W 150 MEQ/1,000 ML IV.SOLN IVC SCH (18:45)
--- NOTE | 2017-07-10 18:48 | Internal Med History&Physical ---
Date of Encounter: 07/10/17 Time of Encounter: 17:00 Assessment and Plan (1) Renal failure Current visit: No Status: Chronic -In the ER, she was found to be in acute on chronic renal failure with a creatinine of 3.62 and GFR of 12. -Discussed with nephrology for relations of starting IV fluids D5 with bicarbonate -Nephrology following and appreciate any additional recommendations Qualifiers: Renal failure chronicity: acute on chronic Chronic kidney disease stage: stage 3 (moderate) Qualified Code(s): N17.8 - Other acute kidney failure; N18.3 - Chronic kidney disease, stage 3 (moderate); N18.3 - Chronic kidney disease, stage 3 (moderate) (2) Hyperkalemia Current visit: No Status: Acute -Patient with hyperkalemia suspect secondary to the above. -Albuterol nebulizer with insulin and Kayexalate was given in addition to calcium gluconate -Will continue to monitor on telemetry and to monitor potassium. (3) IDDM (insulin dependent diabetes mellitus) Current visit: No Status: Chronic -Will continue home medications (4) Anemia Current visit: No Status: Chronic -Patient with chronic anemia which is stable. Qualifiers: Anemia type: unspecified type Qualified Code(s): D64.9 - Anemia, unspecified (5) DVT prophylaxis Current visit: No Status: Acute -Subcutaneous heparin. Internal Medicine - H&P: HPI Chief complaint: Abnormal labs Admitted From: Home Plans for Post Hospital Care: Home History of present illness: Patient is a 72-year-old female with past medical history significant for chronic kidney disease stage III, hypertension, insulin-dependent diabetes type 2, hypertension and chronic anemia who presents to the ER on 07/10/17 due to abnormal labs. 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 In the ER, she was found to be in acute on chronic renal failure with a creatinine of 3.62 and GFR of 12. She was also found to be hyperkalemic (6.3) and hyponatremic (129). Patient will be admitted to the medical floor for acute on chronic renal failure. Past Med Surg Social Fam HX - Past Medical History Medical history: diabetes, hyperlipidemia, hypertension, renal disease, other Psychiatric history: no psych history - Past Surgical History Surgical History: hysterectomy - Social History Smoking Status: Former smoker Smokeless Tobacco Status: No Alcohol use: none Drug use: none - Family History Mother History Unknown: Yes Father History Unknown: Yes Internal Medicine - H&P: Meds Metoprolol [Lopressor] 12.5 mg PO BID 03/01/16 [History] Pravastatin Sodium 10 mg PO HS 03/01/16 [History] Aspirin 81 mg PO DAILY 05/20/16 [History] Ipratropium/Albuterol Neb [Duoneb] 3 ml IH [id number] inhsol 11/14/16 [Rx] Insulin Glargine,Hum.rec.anlog [Lantus Solostar] 25 units SQ HS 07/10/17 [ History] 3 Allergy/AdvReac Type Severity Reaction Status Date / Time acetaminophen [From Tylenol] Allergy See Verified 07/10/17 16:41 Comments Influenza Virus Vaccines Allergy See Verified 07/10/17 16:41 Comments All Systems PM: A 10-system review of systems was performed and is negative for pertinent findings except as documented above in the HPI. - Constitutional Vitals: Temp Pulse Resp BP Pulse Ox 98.0 F 112 17 140/72 92 07/10/17 17:30 07/10/17 17:30 07/10/17 17:30 07/10/17 17:30 07/10/17 17:30 General appearance: Present: A&O X 3 - Head Head exam: Present: normocephalic - Eye Eye exam: Present: normal appearance - ENT ENT exam: Present: mucous membranes dry - Respiratory Respiratory exam: Present: CTAB. Absent: accessory muscle use, rales, rhonchi, wheezes - Cardiovascular Cardiovascular exam: Present: RRR, +S1, +S2. Absent: diastolic murmur, gallop, rubs, systolic murmur - GI/Abdominal GI/Abdominal exam: Present: normal bowel sounds, soft, no peritoneal signs. Absent: distended, tenderness - Extremities Exam Extremities exam: Absent: pedal edema - Neurological Exam Neurological exam: Present: oriented X3, no focal deficits - Psychiatric Psychiatric exam: Present: normal mood - Skin Skin exam: Present: normal color Internal Med - H&P Results - Labs CBC & Chem 7: 07/10/17 14:59 07/10/17 14:59
[2017-07-10] MEDS ORDERED: Sodium Bicarbonate 150 MEQ in D5% in Water 1,000 ML IVC SCH (19:00)
[2017-07-10] MEDS: Insulin DETEMIR 100 UNIT/ML X5UNITS SQ SCH (22:47)
[2017-07-10] MEDS: Ipratropium/Albuterol Neb 3 ML IH SCH (23:00)
[2017-07-11] MEDS: 0.9 % Sodium Chloride 1,000 ML IVC SCH ×3 (03:29→16:47)
[2017-07-11] MEDS: Ipratropium/Albuterol Neb 3 ML IH SCH ×4 (03:35→22:31)
[2017-07-11 04:44] LABS: Basophils % 0.2 %; Eosinophils # 0.1 K/mcL (0.0-0.6); Eosinophils % 1.2 %; Hematocrit 25.1 % (35.3-44.9); Immature Granulocytes % 0.6 % (0-4); Lymphocytes # 3.4 K/mcL (0.6-4.6); Lymphocytes % 41.7 %; Mean Corpuscular HGB Conc 31.9 g/dL (31.6-35.5); Mean Corpuscular Volume 81.5 fL (83.0-100.0); Mean Platelet Volume 9.3 fL (9.4-12.4); Monocytes # 0.6 K/mcL (0.0-1.3); Platelet Count 350 K/mcL (140-400); Red Blood Count 3.08 M/mcL (3.82-4.97); Red Cell Distribution Width 14.3 % (11.5-14.5); Segmented Neutrophils % 49.3 %
[2017-07-11 04:57] LABS: Calcium 8.3 mg/dL (8.6-10.8); Potassium 3.8 mEq/L (3.5-4.5)
[2017-07-11] MEDS ORDERED: Dextrose Gel 15 GM PO PRN ×2 (07:38)
[2017-07-11] MEDS ORDERED: D5% in Water 1,000 ML IVC PRN (07:38)
[2017-07-11] MEDS ORDERED: *HR* Dextrose 50 % in Water (Syg) 50 ML SYRINGE IVP PRN (07:38)
[2017-07-11] MEDS: Insulin LISPRO 300 UNITS/3 ML VIAL SQ SCH ×7 (08:37→20:31)
[2017-07-11] MEDS: Aspirin 81 MG TAB.CHEW PO SCH (08:39)
--- NOTE | 2017-07-11 10:15 | Nephrology Consult Note ---
Date of Encounter: 07/11/17 Time of Encounter: 10:15 Assessment and Plan (1) MERNA (acute kidney injury) Current Visit: Yes Status: Acute Elevated SCr in the setting of likely decreased po fluid intake likely pre-renal Will obtain urine sodium, creatinine and eosinphils Check CPK and uric acid levels Avoid nephrotoxins if possible. No acute indication for medical dermatologist at this time. Obtain US of kidney (2) Hyperkalemia Current Visit: Yes Status: Acute Resolved after kayexalate. renal diet advised (3) Metabolic acidosis Current Visit: Yes Status: Acute Resolving with bicarb gtt, can transition off to NS History of Present Illness - Reason for Consult Consult date: 07/11/17 Acute Kidney Injury, Chronic Kidney Disease Requesting physician: Roshan Brantley - History of Present Illness 72 y o female with PMH of DM, HTN, high chol and stage 3/4 CKD admitted with abnormal labs. SCr noted at 3/62, GFR 12, sodium at 129 and potassium at 6.3. Previous AKIs noted back in 11/2016 with SCr peaking at 4.67, GFR 9 and also in 06/2016 and 02/2016 peaking at 3.76, GFR 12 and 2.53, GFR 19 respectively. Pt is a rather poor historian, hence most information obtained from records. No family member present at bedside. Past Med Surg Social Fam HX - Past Medical History Medical history: diabetes, hyperlipidemia, hypertension, renal disease, other Psychiatric history: no psych history - Past Surgical History Surgical History: hysterectomy - Social History Smoking Status: Former smoker Smokeless Tobacco Status: No Alcohol use: none Drug use: none - Family History Mother History Unknown: Yes Father History Unknown: Yes Medications and Allergies Metoprolol [Lopressor] 12.5 mg PO BID 03/01/16 [History] Pravastatin Sodium 10 mg PO HS 03/01/16 [History] Aspirin 81 mg PO DAILY 05/20/16 [History] Ipratropium/Albuterol Neb [Duoneb] 3 ml IH [id number] inhsol 11/14/16 [Rx] Insulin Glargine,Hum.rec.anlog [Lantus Solostar] 25 units SQ HS 07/10/17 [ History] 3 Allergy/AdvReac Type Severity Reaction Status Date / Time acetaminophen [From Tylenol] Allergy See Verified 07/10/17 16:41 Comments Influenza Virus Vaccines Allergy See Verified 07/10/17 16:41 Comments Review of Systems All Systems: reviewed and no additional remarkable complaints except as stated ( 10 systems reviewed) Exam - Vital Signs Vital signs: Initial Vital Signs Temp Pulse Resp BP Pulse Ox 97.4 F L 92 18 137/76 100 07/10/17 13:58 07/10/17 13:58 07/10/17 13:58 07/10/17 13:58 07/10/17 13:58 Vital Signs - Last 8 Hours Temp Pulse Resp BP Pulse Ox 07/11/17 07:34 98.4 F 94 16 104/62 98 07/11/17 05:23 98.7 F 87 16 116/58 96 07/11/17 03:35 16 98 Intake and Output 07/10/17 07/11/17 07/11/17 23:59 07:59 15:59 Intake Total 1000 / 1000 30 / 30 Output Total 0 / 0 Balance 1000 / 1000 30 / 30 Intake: IV Fluids 1000 / 1000 0.9 % Sodium Chloride 1,000 ML 1000 / 1000 @ 100 mls/hr IVC .Q10H [facility] Rx#: [id number] Oral 30 / 30 Output: Urine 0 / 0 Other: Stool Size Moderate Stool Consistency soft Stool Color Brown # Voids 2 Weight 60.6 kg Blood Glucose* 385 274 Patient Weight 07/11/17 23:59 Weight 60.6 kg - General Appearance General appearance: well-developed, well-nourished EENT: ATNC, mucous membranes dry Neck: no JVD, supple Respiratory: clear Cardiology: no edema, normal S1, normal S2 Gastrointestinal: no tenderness, no guarding Integumentary: warm and dry Neurologic: no focal deficit Musculoskeletal: no deformities Psychiatric: mood/affect appropriate Results - Lab Results 07/12/17 05:08 07/12/17 05:08 Most recent lab results Calcium 8.3 mg/dL (8.6-10.8) L 07/11/17 04:02 Consult Discharge Plan - Plan Referrals: Macario Diallo MD [Primary Care Provider] -
--- NOTE | 2017-07-11 11:45 | Internal Med Progress Note ---
Date of Encounter: 07/11/17 Time of Encounter: 11:42 - Assessment and plan (1) Anemia in chronic renal disease Current Visit: Yes Status: Acute Assessment and plan: We will continue to monitor H&H daily. She may require Aranesp per nephrology service. Qualifiers: Chronic kidney disease stage: stage 3 (moderate) Qualified Code(s): N18.3 - Chronic kidney disease, stage 3 (moderate); D63.1 - Anemia in chronic kidney disease; D63.1 - Anemia in chronic kidney disease (2) Hyperkalemia Current Visit: Yes Status: Acute Assessment and plan: Potassium is within normal range today. Continue low potassium renal diet. (3) IDDM (insulin dependent diabetes mellitus) Current Visit: No Status: Chronic Assessment and plan: Insulin sliding scale and Accu-Chek fingersticks 4 times daily. Diabetic diet. (4) HTN (hypertension) Current Visit: No Status: Chronic Assessment and plan: Continue home meds. Qualifiers: Hypertension type: essential hypertension Qualified Code(s): I10 - Essential (primary) hypertension (5) Rkvfb-hl-xveaoun kidney injury Current Visit: No Status: Acute Assessment and plan: Discussed with nephrology. Agree with switching to IV normal saline infusion. IV sodium bicarbonate and was stopped. Qualifiers: Acute renal failure type: unspecified Chronic kidney disease stage: stage 3 (moderate) Qualified Code(s): N17.9 - Acute kidney failure, unspecified; N18.3 - Chronic kidney disease, stage 3 (moderate); N18.3 - Chronic kidney disease, stage 3 (moderate) (6) UTI (urinary tract infection) Current Visit: No Status: Acute Assessment and plan: Urinalysis is positive however I suspect a dirty catch given that there numerous squamous cells. We will follow up urine culture. The patient has no symptoms of a UTI. We will refrain from treating with antibiotics. Qualifiers: Urinary tract infection type: site unspecified Hematuria presence: without hematuria Qualified Code(s): N39.0 - Urinary tract infection, site not specified (7) Metabolic acidosis Current Visit: Yes Status: Acute Assessment and plan: Likely secondary to renal failure. Received IV sodium bicarbonate. This was stopped as bicarbonate is now normal. - Subjective Interval history: Patient is a poor historian. She was admitted to the hospital for abnormal lab results indicating worsening renal failure. Currently she patient reports no dysuria hematuria and urinary frequency or hesitancy. She completely denies any urinary symptoms. Denies fevers chills nausea and lethargy. - Constitutional Vitals: Temp Pulse Resp BP Pulse Ox 98.4 F 94 17 104/62 99 07/11/17 07:34 07/11/17 07:34 07/11/17 10:37 07/11/17 07:34 07/11/17 10:37 General appearance: Present: A&O X 3 - Eye Eye exam: Present: PERRL, conjuntiva pink, sclera anicteric Pupils: Present: PERRL - Respiratory Respiratory exam: Present: CTAB. Absent: accessory muscle use, rales, rhonchi, wheezes - Cardiovascular Cardiovascular exam: Present: RRR, +S1, +S2. Absent: diastolic murmur, gallop, rubs, systolic murmur - GI/Abdominal GI/Abdominal exam: Present: normal bowel sounds, soft, no peritoneal signs. Absent: distended, tenderness - Extremities Exam Extremities exam: Present: warm, radial pulses palpable and symmetrical. Absent : calf tenderness, cyanotic, pedal edema - Skin Skin exam: Present: dry, intact Internal Medicine: Result - Labs CBC & Chem 7: 07/11/17 04:02 07/11/17 04:02 Labs: Short CBC 07/11/17 Range/Units 04:02 WBC 8.1 (4.3-11.1) K/mcL Hgb 8.0 L D (11.5-15.4) g/dL Hct 25.1 L (35.3-44.9) % Plt Count 350 (140-400) K/mcL Neutrophils # 4.0 (1.6-8.9) K/mcL BMP 07/10/17 07/10/17 07/11/17 19:22 19:22 04:02 Sodium 132 L 135 L Potassium 4.6 H D 3.8 Chloride 107 Carbon Dioxide 18 L BUN 56 H Creatinine 3.09 H Glucose 333 H Calcium 8.3 L Consult Discharge Plan - Plan Referrals: Macario Diallo MD [Primary Care Provider] -
[2017-07-11] MEDS: Insulin DETEMIR 100 UNIT/ML X5UNITS SQ SCH (20:32)
[2017-07-11] MEDS ORDERED: Ondansetron 4 MG/2 ML VIAL IVP PRN (20:43)
[2017-07-12] MEDS: Ipratropium/Albuterol Neb 3 ML IH SCH ×4 (03:32→21:59)
[2017-07-12 06:18] LABS: Calcium 7.8 mg/dL (8.6-10.8); Magnesium 1.1 mg/dL (1.6-2.6); Potassium 3.1 mEq/L (3.5-4.5)
[2017-07-12 06:20] LABS: Basophils % 0.2 %; Eosinophils # 0.1 K/mcL (0.0-0.6); Eosinophils % 1.5 %; Hematocrit 21.2 % (35.3-44.9); Hemoglobin 6.8 g/dL (11.5-15.4); Immature Granulocytes % 0.7 % (0-4); Lymphocytes # 2.1 K/mcL (0.6-4.6); Lymphocytes % 34.9 %; Mean Corpuscular HGB Conc 32.1 g/dL (31.6-35.5); Mean Corpuscular Hemoglobin 26.4 pg (28.0-33.3); Mean Corpuscular Volume 82.2 fL (83.0-100.0); Mean Platelet Volume 9.4 fL (9.4-12.4); Monocytes # 0.6 K/mcL (0.0-1.3); Neutrophils # 3.3 K/mcL (1.6-8.9); Platelet Count 336 K/mcL (140-400); Red Blood Count 2.58 M/mcL (3.82-4.97); Red Cell Distribution Width 14.3 % (11.5-14.5); Segmented Neutrophils % 53.7 %
[2017-07-12] MEDS: Insulin LISPRO 300 UNITS/3 ML VIAL SQ SCH ×7 (08:41→21:01)
[2017-07-12] MEDS: 0.9 % Sodium Chloride 1,000 ML IVC SCH (08:44)
[2017-07-12] MEDS: Aspirin 81 MG TAB.CHEW PO SCH (08:44)
--- NOTE | 2017-07-12 13:09 | Nephrology Progress Note ---
Date of Encounter: 07/12/17 Time of Encounter: 11:45 - Assessment and Plan (1) MERNA (acute kidney injury) Current Visit: Yes Status: Acute SCr improving at 2.73, GFR 17 UOP not documented yesterday but today at 500cc so far Can stop IVF but encourage po fluids (2) Metabolic acidosis Current Visit: Yes Status: Acute Resolved off bicarb gtt (3) Hypokalemia Current Visit: No Status: Acute Agree with repletion after magnesium first (4) Hypomagnesemia Current Visit: No Status: Acute Agree with repletion (5) Anemia Current Visit: Yes Status: Acute Hgb noted worse at 6.8 today Agree with transfusion pRBCs per primary team Will check iron levels along with folate and B12 and stool guaiac Qualifiers: Anemia type: unspecified type Qualified Code(s): D64.9 - Anemia, unspecified Subjective Interval history: Pt seen and examined with no new complaints Objective - Vital Signs Vital signs: Vital Signs Temp Pulse Resp BP Pulse Ox 07/12/17 11:49 97.6 F 69 15 121/52 99 07/12/17 08:45 97.8 F 74 17 120/63 97 07/12/17 05:20 98.5 F 82 18 132/71 98 07/12/17 00:57 98.1 F 94 18 139/58 97 07/11/17 22:31 18 95 07/11/17 19:40 98.4 F 103 17 144/69 97 07/11/17 16:34 97.9 F 102 17 120/56 97 07/11/17 15:52 18 99 Intake and Output 07/11/17 07/12/17 07/12/17 23:59 07:59 15:59 Intake Total 120 / 120 1000 / 1000 60 / 60 Output Total 500 / 500 0 / 0 Balance 120 / 120 500 / 500 60 / 60 Intake: IV Fluids 1000 / 1000 0.9 % Sodium Chloride 1,000 ML 1000 / 1000 @ 75 mls/hr IVC .[id number] [facility] Rx #:[id number] Oral 120 / 120 60 / 60 Output: Urine 500 / 500 0 / 0 Other: Meal Dinner Percent of Meal Consumed 50% Stool Size Small Stool Consistency soft Stool Characteristics Normal for Patient Stool Color Brown Weight 60.1 kg Blood Glucose* 260 200 Patient Weight 07/12/17 23:59 Weight 60.1 kg - General Appearance General appearance: Present: frail (NAD) EENT: Present: ATNC, mucous membranes moist Neck: Present: no JVD, supple Cardiology: Present: no edema, normal S1, normal S2 Gastrointestinal: Present: no tenderness, no guarding Integumentary: Present: warm and dry Neurologic: Present: no focal deficit Musculoskeletal: Present: no deformities Psychiatric: Present: mood/affect appropriate, cooperative - Lab 07/13/17 03:44 07/13/17 03:44 Most recent lab results Calcium 7.8 mg/dL (8.6-10.8) L 07/12/17 05:08 Magnesium 1.1 mg/dL (1.6-2.6) L 07/12/17 05:08 Consult Discharge Plan - Plan Instructions: Hyperkalemia (DC), Anemia (DC) Additional Instructions: Follow-up with Dr. Ventura this week. You will need to have outpatient endoscopy to workup anemia. Follow-up with Dr. Meza within 2 weeks of discharge. Referrals: Macario Diallo MD [Primary Care Provider] - 07/20/17 3:15 pm (please follow up as schedule...) Layla Dennis MD [Partnered Physician] - 07/17/17 9:30 am ( please follow up as schedule...) Hema Ventura MD [Partnered Physician] - (please call the office of Dr. Ventura if you don't hear from them...)
[2017-07-12] MEDS ORDERED: Potassium Chloride Elixir 20 MEQ/15 ML UDC PO ONE (13:14)
[2017-07-12] MEDS ORDERED: Furosemide 20 MG/2 ML VIAL IVP ONE (13:14)
[2017-07-12] MEDS ORDERED: Insulin DETEMIR 100 UNIT/ML X5UNITS SQ SCH ×2 (13:16→21:00)
--- NOTE | 2017-07-12 13:19 | Internal Med Progress Note ---
Date of Encounter: 07/12/17 Time of Encounter: 13:17 - Assessment and plan (1) Anemia in chronic renal disease Current Visit: Yes Status: Acute Assessment and plan: Worsening today with hemoglobin dropping to 6.8. I will obtain stool Hemoccult. I will order 1 unit of PRBC. Qualifiers: Chronic kidney disease stage: stage 3 (moderate) Qualified Code(s): N18.3 - Chronic kidney disease, stage 3 (moderate); D63.1 - Anemia in chronic kidney disease; D63.1 - Anemia in chronic kidney disease (2) Hyperkalemia Current Visit: Yes Status: Acute Assessment and plan: Has resolved. Now the patient has mild hypokalemia. I will give 1 dose of oral potassium. (3) IDDM (insulin dependent diabetes mellitus) Current Visit: No Status: Chronic Assessment and plan: Insulin sliding scale and Accu-Chek fingersticks 4 times daily. Diabetic diet. Her glucose runs between 200 and mid 300s. This morning was 70. Patient has symptoms of hypoglycemia. I will decrease the Lantus from 25-20 units at bedtime. (4) HTN (hypertension) Current Visit: No Status: Chronic Assessment and plan: Continue home meds. Qualifiers: Hypertension type: essential hypertension Qualified Code(s): I10 - Essential (primary) hypertension (5) Rvhxk-mb-gleeccj kidney injury Current Visit: No Status: Acute Assessment and plan: Creatinine improved over IV fluids. Currently creatinine is 2.7 which is close to her baseline of 2.3. I will stop IV fluids. Encourage oral hydration. Avoid nephrotoxins. Monitor kidney function closely. Qualifiers: Acute renal failure type: unspecified Chronic kidney disease stage: stage 3 (moderate) Qualified Code(s): N17.9 - Acute kidney failure, unspecified; N18.3 - Chronic kidney disease, stage 3 (moderate); N18.3 - Chronic kidney disease, stage 3 (moderate) (6) UTI (urinary tract infection) Current Visit: No Status: Acute Assessment and plan: Urinalysis is positive however I suspect a dirty catch given that there numerous squamous cells. We will follow up urine culture. The patient has no symptoms of a UTI. We will refrain from treating with antibiotics. Qualifiers: Urinary tract infection type: site unspecified Hematuria presence: without hematuria Qualified Code(s): N39.0 - Urinary tract infection, site not specified (7) Metabolic acidosis Current Visit: Yes Status: Acute Assessment and plan: Likely secondary to renal failure. Received IV sodium bicarbonate. This was stopped as bicarbonate is now normal. - Subjective Interval history: Patient is a poor historian. She was sent to the hospital for evaluation of abnormal blood work concerning for worsening renal failure. She denies dysuria hematuria and urinary frequency. She reports no chest pain or shortness of breath today. Her BUN and creatinine have improved over the last 24 hours with IV fluids. - Constitutional Vitals: Temp Pulse Resp BP Pulse Ox 97.6 F 69 15 121/52 99 07/12/17 11:49 07/12/17 11:49 07/12/17 11:49 07/12/17 11:49 07/12/17 11:49 General appearance: Present: A&O X 3 - Neck Neck exam general surgery: Present: supple, trachea midline. Absent: lymphadenopathy - Respiratory Respiratory exam: Present: CTAB. Absent: accessory muscle use, rales, rhonchi, wheezes - Cardiovascular Cardiovascular exam: Present: RRR, +S1, +S2. Absent: diastolic murmur, gallop, rubs, systolic murmur - GI/Abdominal GI/Abdominal exam: Present: normal bowel sounds, soft, no peritoneal signs. Absent: distended, tenderness - Extremities Exam Extremities exam: Present: warm, radial pulses palpable and symmetrical. Absent : calf tenderness, cyanotic, pedal edema Internal Medicine: Result - Labs CBC & Chem 7: 07/12/17 05:08 07/12/17 05:08 Labs: Short CBC 07/12/17 Range/Units 05:08 WBC 6.1 (4.3-11.1) K/mcL Hgb 6.8 L (11.5-15.4) g/dL Hct 21.2 L (35.3-44.9) % Plt Count 336 (140-400) K/mcL Neutrophils # 3.3 (1.6-8.9) K/mcL BMP 07/12/17 05:08 Sodium 140 Potassium 3.1 L Chloride 110 H Carbon Dioxide 21 BUN 50 H Creatinine 2.73 H Glucose 82 Calcium 7.8 L - Impressions Impressions Retroperitoneum Ultrasound 07/11/17 10:12 IMPRESSION: Stable appearance to the kidneys from prior exam 11/07/2016 to include [id number] bilateral hydronephrosis, right slightly worse than left. Etiology uncertain. No definite stones are seen. Stable appearance to bilateral renal cysts, felt to be benign and without necessity for continued follow-up. Limited evaluation of the urinary bladder secondary to underdistention with suspected diffuse urinary bladder wall thickening. This could relate to underdistention but other superimposed etiologies not excluded. D/ / 07/11/2017 13:52:21 Arvind Douglas MD / bcarter Interpreting Provider: Arvind Douglas MD Consult Discharge Plan - Plan Referrals: Macario Diallo MD [Primary Care Provider] -
[2017-07-12 14:03] LABS: % Iron Saturation 10 % (15-50); Iron 21 mcg/dL (50-170); Transferrin 143 mg/dL (180-382)
[2017-07-12 14:23] LABS: Ferritin 393 ng/ml (5-204)
[2017-07-12 15:28] LABS: Folate 4.3 ng/mL (7.0-31.4)
[2017-07-12] MEDS ORDERED: 0.9 % Sodium Chloride 250 ML ONE (16:30)
--- NOTE | 2017-07-13 02:15 | Electrocardiograph Report ---
[address] [place], [place] [address] Test Date: 2017-07-10 Pat Name: Lisa Lacy Department: [id number] Room: 2A26 Gender: F Edge Bonder: MIK : [id number] Requested By: Andrew King Order Number: [id number] Reading MD: Vniay Zambrano MD Measurements Intervals [place] Rate: 89 P: 24 WV: 182 QRS: 11 QRSD: 106 T: 159 QT: 360 QTc: 407 Interpretive Statements SINUS RHYTHM ANTEROLATERAL ISCHEMIA Electronically Signed On 07-13-2017 2:13:43 EST by Vinay Zambrano MD
[2017-07-13] MEDS: Ipratropium/Albuterol Neb 3 ML IH SCH ×2 (03:51→10:28)
[2017-07-13 04:44] LABS: Basophils % 0.3 %; Eosinophils # 0.2 K/mcL (0.0-0.6); Eosinophils % 3.2 %; Hematocrit 26.6 % (35.3-44.9); Immature Granulocytes % 0.3 % (0-4); Lymphocytes # 2.2 K/mcL (0.6-4.6); Lymphocytes % 31.7 %; Mean Corpuscular Hemoglobin 25.9 pg (28.0-33.3); Mean Corpuscular Volume 81.1 fL (83.0-100.0); Mean Platelet Volume 9.1 fL (9.4-12.4); Monocytes # 0.5 K/mcL (0.0-1.3); Neutrophils # 3.8 K/mcL (1.6-8.9); Platelet Count 369 K/mcL (140-400); Red Blood Count 3.28 M/mcL (3.82-4.97); Red Cell Distribution Width 15.4 % (11.5-14.5); Segmented Neutrophils % 56.5 %
[2017-07-13 04:51] LABS: Hemoglobin 8.5 g/dL (11.5-15.4)
[2017-07-13 04:53] LABS: Calcium 8.4 mg/dL (8.6-10.8); Magnesium 1.4 mg/dL (1.6-2.6); Potassium 3.6 mEq/L (3.5-4.5)
[2017-07-13 07:41] VITALS: BP 126/58
[2017-07-13] MEDS ORDERED: Magnesium Oxide 400 MG TABLET PO ONE (09:49)
--- NOTE | 2017-07-13 10:41 | Discharge Summary ---
Date of Encounter: 07/13/17 Time of Encounter: 10:32 - Discharge Diagnosis (1) Anemia in chronic renal disease Priority: Secondary Status: Acute Qualifiers: Chronic kidney disease stage: stage 3 (moderate) Qualified Code(s): N18.3 - Chronic kidney disease, stage 3 (moderate); D63.1 - Anemia in chronic kidney disease; D63.1 - Anemia in chronic kidney disease (2) Hyperkalemia Priority: Secondary Status: Acute (3) IDDM (insulin dependent diabetes mellitus) Priority: Secondary Status: Chronic (4) HTN (hypertension) Priority: Secondary Status: Chronic Qualifiers: Hypertension type: essential hypertension Qualified Code(s): I10 - Essential (primary) hypertension (5) Usmgp-yt-[id number] kidney injury Priority: Primary Status: Acute Qualifiers: Acute renal failure type: unspecified Chronic kidney disease stage: stage 3 (moderate) Qualified Code(s): N17.9 - Acute kidney failure, unspecified; N18.3 - Chronic kidney disease, stage 3 (moderate); N18.3 - Chronic kidney disease, stage 3 (moderate) (6) UTI (urinary tract infection) Priority: Secondary Status: Ruled-out Qualifiers: Urinary tract infection type: site unspecified Hematuria presence: without hematuria Qualified Code(s): N39.0 - Urinary tract infection, site not specified (7) Metabolic acidosis Priority: Secondary Status: Acute - Discharge Medications Home Medications: Metoprolol [Lopressor] 12.5 mg PO BID 03/01/16 [History] Pravastatin Sodium 10 mg PO HS 03/01/16 [History] Ipratropium/Albuterol Neb [Duoneb] 3 ml IH [id number] inhsol 11/14/16 [Rx] Insulin Glargine,Hum.rec.anlog [Lantus Solostar] 25 units SQ HS 07/10/17 [ History] Allergies/Adverse Reactions: 3 Allergy/AdvReac Type Severity Reaction Status Date / Time acetaminophen [From Tylenol] Allergy See Verified 07/10/17 16:41 Comments Influenza Virus Vaccines Allergy See Verified 07/10/17 16:41 Comments Procedures/tests Complete & Pending: Procedures Performed prior 72 hours Category Date Time Status US retroperitoneal comp [US] Routine Exams 07/11/17 10:12 Completed Date of admission: 07/10/17 18:19 Primary care physician: Macario Diallo MD Consults: 07/10/17 18:25 Consult to Nephrology [CONS] Routine Consulting Provider: Kidney Isis/SHAINA/FARTUN/HEAVEN Reason for Consult: renal failure Time Notified: 18:00 Call Completed: Yes 07/11/17 00:43 Consult to Wound Care [CONS] Routine Reason for Consult: Diabetic pressure ulcer on left foot. Call Completed: Yes - Patient Status Disposition: Home Health Service Condition: Fair Functional capacity at discharge: uses cane/walker Overall status at discharge: patient is progressing back to baseline - Discharge Instructions Follow Up With: Macario Diallo MD [Primary Care Provider] - Layla Dennis MD [Partnered Physician] - Hema Ventura MD [Partnered Physician] - Additional Instructions: Follow-up with Dr. Ventura this week. You will need to have outpatient endoscopy to workup anemia. Follow-up with Dr. Meza within 2 weeks of discharge. - Diet and Activity Activity: increase activity as tolerated Diet: diabetic diet, low salt diet Interval History: Patient is asymptomatic today. She received a blood transfusion yesterday and hemoglobin responded appropriately. She denies rectal bleeding, recent history of hematemesis or melena. Denies abdominal pain. Hospital course: Ms. Lacy is a 72 year old female with past medical history significant for hypertension, diabetes, chronic renal insufficiency and chronic anemia who presented to the emergency department for evaluation of abnormal labs. She had home health check labs at home and was told that her potassium was elevated and she was directed to the emergency department. Workup done in the emergency department revealed hyperkalemia with a potassium of 6.3, creatinine of 3.6 and sodium of 129. She was admitted for further care. She was treated with IV fluids and IV sodium bicarbonate, her creatinine improved. Nephrology was consulted. Fluids were then switched to normal saline. She received vigorous IV hydration. On day 2 of hospitalization her hemoglobin dropped to 6.8 secondary to a combination of chronic anemia and hemodilution. She received 1 unit of PRBC and her hemoglobin responded appropriately and today is 8.5. FOBT was tested and found to be positive. The patient denies melena or rectal bleeding and history of hematemesis. She is hemodynamically stable and given that her hemoglobin is at her baseline and there is no overt bleeding she will have close outpatient follow-up with GI for further workup. I will hold her low -dose aspirin in the meantime. Her creatinine today is 2.5 which is close to her baseline of 2.3. She will also have close follow-up with nephrology. She had a positive urinalysis during this hospitalization however she had no urinary symptoms and urinalysis contaminated having large number of squamous cells. UTI was ruled out and therefore she did not receive antibiotic treatment. She is medically stable for discharge home. I explained the plan of care and she verbalizes agreement and understanding. - Time Spent with Patient Total time spent providing and/or coordinating discharge services: Greater than 30 minutes (I have spent 40 minutes coordinating this discharge.) - Constitutional Vitals: Temp Pulse Resp BP Pulse Ox 97.3 F L 70 16 126/58 96 07/13/17 07:36 07/13/17 07:36 07/13/17 07:36 07/13/17 07:36 07/13/17 07:36 General appearance: Present: A&O X 3 - Respiratory Respiratory exam: Present: CTAB. Absent: accessory muscle use, rales, rhonchi, wheezes - Cardiovascular Cardiovascular exam: Present: RRR, +S1, +S2. Absent: diastolic murmur, gallop, rubs, systolic murmur - Extremities Exam Extremities exam: Present: warm, radial pulses palpable and symmetrical. Absent : calf tenderness, cyanotic, pedal edema - Skin Skin exam: Present: dry, intact
[2017-07-13] MEDS: Insulin LISPRO 300 UNITS/3 ML VIAL SQ SCH ×2 (11:16)
[2017-07-13] MEDS: Aspirin 81 MG TAB.CHEW PO SCH (11:18)
--- NOTE | 2017-07-13 11:18 | Physician Discharge Referral ---
Home Health/Hosp Referral Info Transfer to: Home Health Provider in Charge Post Discharge: PCP - Diagnosis (1) Anemia in chronic renal disease Status: Acute (2) Hyperkalemia Status: Acute (3) IDDM (insulin dependent diabetes mellitus) Status: Chronic (4) HTN (hypertension) Status: Chronic (5) Sztqc-zd-ryusqmd kidney injury Status: Acute (6) UTI (urinary tract infection) Status: Ruled-out (7) Metabolic acidosis Status: Acute - Respiratory Orders Smoking Cessation: Smoking cessation has been advised. For more information, call the [employer] Tobacco Quit Line at 2-082-STSU-NOW. - Dressing/Wound Care Type of Dressing/Treatments w/Frequency: Resume prior wound care orders to diabetic foot ulcer. - Diet/Nutrition Diet/Nutrition Orders: Cardiac, No Concentrated Sweets - Activity Activity Orders: Ambulate - Services Needed Following services are medically necessary services: Nursing, Home Health Aide, Physical Therapy Home Care Orders: CBC and BMP to be done on 07/21/2017. Please report results to Dr. Meza. - Transfer Medications Home Medications: Metoprolol [Lopressor] 12.5 mg PO BID 03/01/16 [History] Pravastatin Sodium 10 mg PO HS 03/01/16 [History] Ipratropium/Albuterol Neb [Duoneb] 3 ml IH [id number] inhsol 11/14/16 [Rx] Insulin Glargine,Hum.rec.anlog [Lantus Solostar] 25 units SQ HS 07/10/17 [ History] Allergies/Adverse Reactions: 3 Allergy/AdvReac Type Severity Reaction Status Date / Time acetaminophen [From Tylenol] Allergy See Verified 07/10/17 16:41 Comments Influenza Virus Vaccines Allergy See Verified 07/10/17 16:41 Comments Certification: Further, I certify that my clinical findings support that this patient is homebound (i.e. absences from home require considerable and taxing effort and are for medical reasons or congregational services or infrequently or short duration when for other reasons) because: Homebound Reason: Patient requires assistance of a person or device to safely leave home, Absences from home are contraindicated except to recieve medical care, Leaving home requires considerable and taxing effort due to condition Attestation: My signature below is to certify that this patient is under my care and that I, or nurse practitioner, or a physician's auction assistant working with me, has a face-to -face encounter with this patient.
== END 2017-07-13 12:47 | disposition home health service (06) | DRG 683 ==
LOC: EMEROO 13:57 → 2ANU 13:57
PROVIDERS: ADMIT Hospitalist; ATTEND Internal Medicine

== ENCOUNTER 2017-08-04 12:45 | Inpatient (IN) ==
[2017-08-04 13:52] LABS: Basophils % 0.4 %; Eosinophils # 0.1 K/mcL (0.0-0.6); Eosinophils % 1.2 %; Hematocrit 40.4 % (35.3-44.9); Hemoglobin 13.5 g/dL (11.5-15.4); Immature Granulocytes % 0.5 % (0-4); Immature Platelets 1.3 % (1.1-6.1); Lymphocytes # 2.6 K/mcL (0.6-4.6); Lymphocytes % 23.4 %; Mean Corpuscular HGB Conc 33.4 g/dL (31.6-35.5); Mean Corpuscular Hemoglobin 26.5 pg (28.0-33.3); Mean Corpuscular Volume 79.2 fL (83.0-100.0); Mean Platelet Volume 8.9 fL (9.4-12.4); Monocytes # 0.5 K/mcL (0.0-1.3); Monocytes % 4.2 %; Neutrophils # 7.7 K/mcL (1.6-8.9); Platelet Count 578 K/mcL (140-400); Red Cell Distribution Width 14.5 % (11.5-14.5); Segmented Neutrophils % 70.3 %
[2017-08-04 14:41] LABS: Albumin 3.7 g/dL (3.5-5.7); Albumin/Globulin Ratio 0.5 (1.1-2.2); Bilirubin,Total 0.3 mg/dL (0.3-1.0); Calcium 10.1 mg/dL (8.6-10.3); Globulin 7.7 g/dL (2.4-3.5); Potassium 7.9 mEq/L (3.5-5.1); Total Protein 11.4 g/dL (6.4-8.9)
[2017-08-04 14:57] LABS: Bilirubin,Direct 0.3 mg/dL (0.0-0.2)
[2017-08-04] MEDS ORDERED: Albuterol 2.5 MG/3 ML NEBULIZER IH ONE (15:06)
[2017-08-04] MEDS ORDERED: Insulin Human Regular 10 UNIT in 0.9 % Sodium Chloride 10 ML IV ONE (15:06)
[2017-08-04] MEDS ORDERED: Sodium Bicarbonate 50 MEQ/50 ML VIAL IVP ONE (15:06)
[2017-08-04] MEDS ORDERED: *HR* Dextrose 50 % in Water (Syg) 50 ML SYRINGE IVP ONE (15:08)
[2017-08-04] MEDS ORDERED: 0.9 % Sodium Chloride 500 ML IVC ONE (15:09)
[2017-08-04] MEDS ORDERED: Ondansetron 4 MG/2 ML VIAL ONE (15:26)
[2017-08-04] MEDS: 0.9 % Sodium Chloride 1,000 ML IVC SCH ×2 (15:31→19:08)
--- NOTE | 2017-08-04 15:42 | Emergency Department Note ---
Disposition Clinical Impression: Hyperkalemia, MERNA (acute kidney injury) Nausea & vomiting Qualifiers: Vomiting type: unspecified Vomiting Intractability: unspecified Qualified Code( s): R11.2 - Nausea with vomiting, unspecified Disposition: Admitted As Inpatient Condition: Serious Referrals: Macario Diallo MD [Primary Care Provider] - Time of Disposition: 15:45 Nausea/Vomiting/Diarrhea HPI - General Chief complaint: ED Nausea/Vomiting/Diarrhea Stated complaint: Flu like symptoms Time Seen by Provider: 08/04/17 14:48 Source: patient Mode of arrival: EMS Limitations: no limitations Nursing Notes Reviewed: Yes Vital Signs Reviewed: Yes - History of Present Illness HPI Narrative: 72-year-old said nausea vomiting not able to keep anything down for last several days with diarrhea. Pt Subjective Complaint: nausea, vomiting, diarrhea Onset (ago): day(s) Description of emesis: food contents Description of Diarrhea: water Associated Abdominal Pain: Yes If pain, Location of pain: diffuse Quality: cramping Consistency: intermittent Improves with: nothing Worsens with: nonthing Associated symptoms: Reports: nausea/vomiting - Related Data Home Medications Medication Instructions Recorded Confirmed Metoprolol [Lopressor] 12.5 mg PO BID 03/01/16 07/10/17 Pravastatin Sodium 10 mg PO HS 03/01/16 07/10/17 Insulin Glargine,Hum.rec.anlog 25 units SQ HS 07/10/17 07/10/17 [Lantus Solostar] Previous Rx's Medication Instructions Recorded Ipratropium/Albuterol Neb [Duoneb] 3 ml IH [id number] inhsol 11/14/16 Allergies Allergy/AdvReac Type Severity Reaction Status Date / Time acetaminophen [From Tylenol] Allergy See Verified 07/10/17 16:41 Comments Influenza Virus Vaccines Allergy See Verified 07/10/17 16:41 Comments All systems ED: reviewed and negative except as stated. Constitutional: Denies: fever, chills, weakness, weight change Eyes: Denies: eye pain, eye discharge, vision change ENT ED: Denies: ear pain, throat pain, dental pain, hearing loss, epistaxis, congestion, dysphagia Cardiovascular: Denies: chest pain, palpitations, dyspnea on exertion, edema, syncope Respiratory: Denies: cough, dyspnea, wheezes, hemoptysis, stridor Gastrointestinal: Reports: abdominal pain, nausea, vomiting, diarrhea. Denies: constipation, hematemesis, melena, hematochezia Genitourinary: Denies: dysuria, frequency, hematuria, discharge Musculoskeletal: Denies: back pain, neck pain, arthralgia, myalgia Integumentary: Denies: rash, abrasion, lesions Neurological: Denies: headache, weakness, numbness, paresthesias, confusion, abnormal gait, vertigo Psychiatric: Denies: anxiety, depression, suicidal thoughts, homicidal thoughts , auditory hallucinations, visual hallucinations Endocrine: Denies: fatigue Hematological/Lymphatic: Denies: easy bleeding, easy bruising Allergic/Immunologic: Denies: facial swelling, urticaria Past Medical History - Past Medical History Medical history: Reports: diabetes, hyperlipidemia, hypertension, renal disease , other Surgical history: Reports: hysterectomy Psychiatric history: Reports: no psych history S[employer]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: 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: 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 - Social History Smoking Status: Former smoker Smokeless Tobacco Status: No Alcohol use: Reports: none Drug use: Reports: none Physical Exam - General Limitations: no limitations General appearance: alert, in no apparent distress - Head Head exam: atraumatic, normocephalic, normal inspection - Eye Eye exam: Present: normal appearance, PERRL, EOMI - ENT ENT exam: normal exam, normal oropharynx, mucous membranes moist - Neck Neck exam: Present: normal inspection, full ROM, trachea midline - Chest Chest inspection: Present: normal inspection, symmetric chest wall rise - Respiratory Respiratory exam: Present: normal lung sounds bilaterally - Cardiovascular Cardiovascular exam: Present: regular rate, normal rhythm, normal heart sounds - Abdominal Exam Abdominal exam: Present: soft, tenderness. Absent: distention, guarding, rebound, rigidity Abdominal tenderness: Present: diffuse, mild - Extremities Exam Extremities exam: Present: normal inspection, full ROM. Absent: tenderness, pedal edema - Expanded Lower Extremity Exam Neurovascular/Tendon exam: Absent: motor deficit, sensory deficit, tendon deficit Gait: observed and normal - Back Exam Back exam: Present: normal inspection, full ROM. Absent: tenderness - Neurological Exam Neurological exam: Present: alert, oriented X3 - Psychiatric Psychiatric exam: Present: normal affect, normal mood - Skin Skin exam: Present: warm, dry, intact, normal color Course - Consultations Consultation #1: Discussed with , fluids in the standard hyperkalemia treatment. Repeat potassium level. Time: 15:42 Consultation #2: Discussed with , fluids they will see in consult. Time: 15:43 Consultation #3: Discussed with Dr. Yadav, admit. Time: 15:43 Vital Signs Temperature 96.0 F L 08/04/17 12:45 Pulse Rate 104 08/04/17 12:45 Respiratory Rate 18 08/04/17 12:45 Blood Pressure 177/100 08/04/17 12:45 O2 Sat by Pulse Oximetry 99 08/04/17 12:45 Temperature 96.0 F L 08/04/17 12:45 Pulse Rate 104 08/04/17 12:45 Respiratory Rate 18 08/04/17 12:45 Blood Pressure 177/100 08/04/17 12:45 O2 Sat by Pulse Oximetry 99 08/04/17 12:45 Oxygen Delivery Oxygen Delivery Room Air Nausea/Vomiting/Diarrhea - Lab Data Result diagrams: 08/04/17 13:44 08/04/17 13:44 Lab Results 08/04/17 08/04/17 Range/Units 13:44 13:44 WBC 10.9 (4.3-11.1) K/mcL RBC 5.10 H (3.82-4.97) M/mcL Hgb 13.5 (11.5-15.4) g/dL Hct 40.4 (35.3-44.9) % MCV 79.2 L (83.0-100.0) fL MCH 26.5 L (28.0-33.3) pg MCHC 33.4 (31.6-35.5) g/dL RDW 14.5 (11.5-14.5) % Plt Count 578 H (140-400) K/mcL MPV 8.9 L (9.4-12.4) fL Immature Gran % 0.5 (0-4) % Seg Neutrophils % 70.3 % Lymphocytes % 23.4 % Monocytes % 4.2 % Eosinophils % 1.2 % Basophils % 0.4 % Neutrophils # 7.7 (1.6-8.9) K/mcL Lymphocytes # 2.6 (0.6-4.6) K/mcL Monocytes # 0.5 (0.0-1.3) K/mcL Eosinophils # 0.1 (0.0-0.6) K/mcL Basophils # 0.0 (0.0-0.2) K/mcL Immature Plt Fraction 1.3 (1.1-6.1) % Sodium 120 L* (136-145) mEq/L Potassium 7.9 H* (3.5-5.1) mEq/L Chloride 92 L (98-107) mEq/L Carbon Dioxide 17 L (23-29) mEq/L BUN 117 H (8-23) mg/dL Creatinine 7.07 H (0.60-1.20) mg/dL Est GFR ( Amer) 7 L (> 60) Est GFR (Non-Af Amer) 6 L (> 60) BUN/Creatinine Ratio 17 (6-26) Glucose 232 H (70-105) mg/dL Calculated Osmolality 295 (280-300) Calcium 10.1 (8.6-10.3) mg/dL Total Bilirubin 0.3 (0.3-1.0) mg/dL Direct Bilirubin 0.3 H (0.0-0.2) mg/dL Indirect Bilirubin 0.0 (0.0-1.2) mg/dL AST 6 L (13-39) Units/L ALT 5 L (7-52) Units/L Alkaline Phosphatase 188 H (34-104) Units/L Serum Total Protein 11.4 H (6.4-8.9) g/dL Albumin 3.7 (3.5-5.7) g/dL Globulin 7.7 H (2.4-3.5) g/dL Albumin/Globulin Ratio 0.5 L (1.1-2.2) Amylase 55 (29-103) Units/L Critical Care Time Critical Care Time: Yes Total Critical Care Time: 45 Attestation: The high probability of a clinically significant, sudden or life threatening deterioration of the [electrolyte] system(s) required my full and direct attention, intervention and personal management. The aggregate critical care time was [45] minutes. This time is in addition to time spent performing reported procedures but includes the following: [x] Data Review and interpretation [x] Patient assessment and monitoring of vital signs [x] Documentation [x] Medication orders and management
[2017-08-04] MEDS ORDERED: Ondansetron 4 MG/2 ML VIAL IVP ONE (15:44)
--- NOTE | 2017-08-04 19:06 | Event Note ---
Date of Encounter: 08/04/17 Time of Encounter: 18:00 - Cardiology Event Note Consulted for profound hyperkalemic renal failure with hyponatremia in setting of nausea/vomiting. Patient has received calcium, bicarbonate. Recommend kayexylate and nephrology consult for possible dialysis to address hyperkalemic renal failure along with IV fluids; continuous albuterol if any arrhythmias.
[2017-08-04] MEDS ORDERED: *HR* Morphine 2 MG/ML SYRINGE IVP PRN (20:13)
[2017-08-04] MEDS ORDERED: Dextrose Gel 15 GM/37.5 ML TUBE PO PRN ×2 (20:13)
[2017-08-04] MEDS ORDERED: D5% in Water 1,000 ML IVC PRN (20:13)
[2017-08-04] MEDS ORDERED: Naloxone 0.4 MG/ML INJ IVP PRN (20:13)
[2017-08-04] MEDS ORDERED: *HR* OxyCODONE Immed Rel 5 MG TABLET PO PRN (20:13)
[2017-08-04] MEDS ORDERED: *HR* Dextrose 50 % in Water (Syg) 50 ML SYRINGE IVP PRN (20:13)
[2017-08-04] MEDS ORDERED: Ondansetron 4 MG/2 ML VIAL IVP PRN (20:13)
[2017-08-04] MEDS ORDERED: 0.9 % Sodium Chloride 1,000 ML IVC SCH (20:15)
--- NOTE | 2017-08-04 20:24 | Internal Med History&Physical ---
Date of Encounter: 08/04/17 Time of Encounter: 20:20 Assessment and Plan (1) Acute gastroenteritis Current visit: Yes Status: Acute Severe dehydration secondary to acute gastroenteritis, Unclear possible infectious etiology Aggressive hydration, send GI panel, may discontinue IV Flagyl if negative for C. difficile Protonix 40 prophylaxes and sequential compression devices for DVT prophylaxis. Patient will be admitted as inpatient, she is expected to stay more than 2 midnights. Full code. Time spent on this admission 40 minutes (2) Severe dehydration Current visit: Yes Status: Acute (3) Elevated troponin Current visit: Yes Status: Acute Likely related to acute renal failure and demand ischemia Continue aspirin, cardiology has been consulted, telemetry Continue metoprolol, hold statin, check CK first (4) Diabetes mellitus Current visit: No Status: Acute Insulin sliding scale only Qualifiers: Diabetes mellitus type: type 2 Diabetes mellitus complication status: with hyperglycemia Diabetes mellitus senior living insulin use: with remote computer terminal operator use Qualified Code(s): E11.65 - Type 2 diabetes mellitus with hyperglycemia; Z79.4 - halfway (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 (5) Hyperkalemia Current visit: No Status: Acute Secondary to acute on chronic renal failure The patient was given Kayexalate, we will monitor potassium closely, no working excellent for now as the patient has been having diarrhea since yesterday Continue additional doses of calcium gluconate and bicarbonate, nephrology has been consulted (6) Hyponatremia Current visit: No Status: Resolved Likely secondary to poor oral intake Order urine sodium and urine osmolality (7) HTN (hypertension) Current visit: No Status: Chronic Qualifiers: Hypertension type: essential hypertension Qualified Code(s): I10 - Essential (primary) hypertension (8) Myvck-ia-ozfifoa kidney injury Current visit: No Status: Acute Acute on chronic renal failure likely secondary to severe dehydration Qualifiers: Acute renal failure type: unspecified Chronic kidney disease stage: stage 3 (moderate) Qualified Code(s): N17.9 - Acute kidney failure, unspecified; N18.3 - Chronic kidney disease, stage 3 (moderate); N18.3 - Chronic kidney disease, stage 3 (moderate) (9) Anemia in chronic renal disease Current visit: No Status: Acute Recheck CBC in the morning, hemoglobin suspected to drop as the patient becomes rehydrated Last hemoglobin was 8.5 during her last hospitalization Qualifiers: Chronic kidney disease stage: stage 4 (severe) Qualified Code(s): N18.4 - Chronic kidney disease, stage 4 (severe); D63.1 - Anemia in chronic kidney disease; D63.1 - Anemia in chronic kidney disease (10) Hyperkalemia Current visit: Yes Status: Acute As stated above Internal Medicine - H&P: HPI Chief complaint: Nausea vomiting and diarrhea Admitted From: Emergency Dept History of present illness: Ms. Lacy is a 72 year old female with a past medical history of chronic kidney disease stage IV, hypertension, chronic hyponatremia who was recently discharged from the hospital in 07/12/2017 she was seen for chronic anemia. The patient says that she has been getting very nauseous and started having severe vomiting for the past few days but got worse yesterday. Is very dehydrated, her hemoglobin was 8.5 during the last hospitalization and has increased after 13.5 due to dehydration. Potassium is 7.6 sodium 120 platelets 578 heart rate was 104 blood pressure 177/100. Her creatinine has increased up to 7.07, chest x-ray is unremarkable. Troponin is 0.04 and EKG shows some T- wave inversions that are not new. Dr. Oswald and Dr. Alan were contacted by the ER. Anion gap is 11. The patient received Kayexalate, calcium gluconate and bicarbonate. IV fluids were started. Patient denies any major abdominal pain at the moment. Chest x-ray is unremarkable. She denies any sick contacts or recent traveling. Cannot remember whether she has been taking antibiotics in the past few months. Had several bowel movements Leslie today, watery without any blood. Past Med Surg Social Fam HX - Past Medical History Medical history: diabetes (Insulin-dependent), hyperlipidemia, hypertension, renal disease (Chronic kidney disease stage 4/5), other (Positive for MRSA in the past, chronic hypo-natremia, hyperkalemia, UTIs, hyperlipidemia, GERD) Psychiatric history: no psych history - Past Surgical History Surgical History: appendectomy, cholecystectomy, hysterectomy - Social History Smoking Status: Former smoker Smokeless Tobacco Status: No Alcohol use: none Drug use: none - Additional Family History Additional family history: Denies any family history Internal Medicine - H&P: Meds Metoprolol [Lopressor] 12.5 mg PO BID 03/01/16 [History] Pravastatin Sodium 10 mg PO HS 03/01/16 [History] Insulin Glargine,Hum.rec.anlog [Lantus Solostar] 30 units SQ HS 07/10/17 [ History] Aspirin Enteric Coated [Aspirin EC] 81 mg PO DAILY 08/04/17 [History] Oxygen 1 each .ROUTE AD 08/04/17 [History] 3 Allergy/AdvReac Type Severity Reaction Status Date / Time acetaminophen [From Tylenol] Allergy See Verified 07/10/17 16:41 Comments Influenza Virus Vaccines Allergy See Verified 07/10/17 16:41 Comments All Systems PM: A 10-system review of systems was performed and is negative for pertinent findings except as documented above in the HPI. Review of systems: Nausea, vomiting, abdominal pain. Very weak, other systems out of the 10 review were negative - Constitutional Vitals: Temp Pulse Resp BP Pulse Ox 97.4 F L 105 16 137/71 98 08/04/17 19:59 08/04/17 19:59 08/04/17 19:59 08/04/17 19:59 08/04/17 19:59 General appearance: Present: A&O X 3 - Head Head exam: Present: atraumatic, normocephalic - Eye Eye exam: Present: PERRL, conjuntiva pink, sclera anicteric Pupils: Present: PERRL - Neck Neck exam general surgery: Present: supple, trachea midline. Absent: lymphadenopathy - Respiratory Respiratory exam: Present: CTAB. Absent: accessory muscle use, rales, rhonchi, wheezes - Cardiovascular Cardiovascular exam: Present: RRR, +S1, +S2, tachycardia. Absent: diastolic murmur, gallop, rubs, systolic murmur - GI/Abdominal GI/Abdominal exam: Present: normal bowel sounds, soft, no peritoneal signs. Absent: distended, tenderness - Extremities Exam Extremities exam: Present: warm, radial pulses palpable and symmetrical. Absent : calf tenderness, cyanotic, pedal edema - Neurological Exam Neurological exam: Present: CN II-XII intact, oriented X3, no focal deficits. Absent: pronater drift, facial droop, speech deficit - Skin Skin exam: Present: dry, intact Internal Med - H&P Results - Labs CBC & Chem 7: 08/04/17 13:44 08/04/17 15:45
[2017-08-04] MEDS ORDERED: Pantoprazole 40 MG VIAL IVP SCH (20:45)
[2017-08-04] MEDS: MetroNIDAZOLE 500 MG/100 ML 500 MG/100 ML BAG IVPB SCH (20:53)
[2017-08-04] MEDS: Insulin LISPRO 300 UNITS/3 ML VIAL SQ SCH (21:07)
[2017-08-04 21:19] LABS: Calcium 9.7 mg/dL (8.6-10.3); Potassium 6.6 mEq/L (3.5-5.1)
[2017-08-04] MEDS: Pantoprazole 40 MG VIAL IVP SCH (21:47)
[2017-08-04] MEDS ORDERED: D5% in 0.45% NACL 1,000 ML IVC SCH (23:45)
[2017-08-05 01:23] LABS: Basophils % 0.3 %; Calcium 9.4 mg/dL (8.6-10.3); Eosinophils # 0.1 K/mcL (0.0-0.6); Eosinophils % 0.4 %; Hematocrit 31.1 % (35.3-44.9); Immature Granulocytes % 0.5 % (0-4); Lymphocytes # 2.1 K/mcL (0.6-4.6); Lymphocytes % 17.7 %; Mean Corpuscular HGB Conc 33.4 g/dL (31.6-35.5); Mean Corpuscular Hemoglobin 26.1 pg (28.0-33.3); Mean Corpuscular Volume 77.9 fL (83.0-100.0); Mean Platelet Volume 8.9 fL (9.4-12.4); Monocytes # 0.7 K/mcL (0.0-1.3); Monocytes % 6.1 %; Neutrophils # 8.9 K/mcL (1.6-8.9); Platelet Count 401 K/mcL (140-400); Potassium 6.2 mEq/L (3.5-5.1); Red Blood Count 3.99 M/mcL (3.82-4.97); Red Cell Distribution Width 14.3 % (11.5-14.5)
[2017-08-05 01:24] LABS: Calcium 9.3 mg/dL (8.6-10.3); Magnesium 1.7 mg/dL (1.6-2.6); Phosphorous 5.9 mg/dL (2.7-4.5); Potassium 6.2 mEq/L (3.5-5.1)
[2017-08-05 01:25] LABS: Hemoglobin 10.4 g/dL (11.5-15.4)
[2017-08-05] MEDS ORDERED: DEXTROSE 5 % IN WATER 50 ML PGGYBK.PRT IV SCH (02:45)
[2017-08-05] MEDS ORDERED: D5% in Water 1,000 ML IVC SCH (03:00)
[2017-08-05] MEDS: MetroNIDAZOLE 500 MG/100 ML 500 MG/100 ML BAG IVPB SCH ×3 (04:17→20:37)
[2017-08-05] MEDS: Pantoprazole 40 MG VIAL IVP SCH (05:34)
--- NOTE | 2017-08-05 08:31 | Internal Med Progress Note ---
<Jony Ricketts - Last Filed: 08/05/17 13:23> Date of Encounter: 08/05/17 Time of Encounter: 08:30 - Assessment and plan (1) Acute worsening of stage 4 chronic kidney disease Current Visit: Yes Status: Acute Assessment and plan: Possibly postrenal in setting of chronic urinary retention and stable bilateral hydronephrosis She has been evaluated in the past by urology but has been noncompliant with catheter use Appreciate both nephrology and urology consult Temporary dialysis catheter placed today Continue to monitor creatinine and electrolytes, avoid nephrotoxic agents (2) Hyperkalemia Current Visit: No Status: Acute Assessment and plan: Potassium initially was 7.9, down to 5.6 after Kayexalate, insulin, bicarbonate Nephrology consult for urgent dialysis if necessary (3) Urinary retention with incomplete bladder emptying Current Visit: Yes Status: Acute Assessment and plan: Urology consult, appreciate recommendations She has a Madden catheter currently, and will likely need chronic use upon discharge (4) UTI (urinary tract infection) Current Visit: No Status: Suspected Assessment and plan: Madden catheter did show purulent drainage Urine cultures have been collected, awaiting results Qualifiers: Urinary tract infection type: site unspecified Hematuria presence: without hematuria Qualified Code(s): N39.0 - Urinary tract infection, site not specified (5) Acute gastroenteritis Current Visit: Yes Status: Acute Assessment and plan: Patient did have diarrhea prior to admission GI panel pending, continue Flagyl until resulted (6) Diabetic ulcer of left foot Current Visit: Yes Status: Chronic Assessment and plan: Wound care consulted, appreciate management She has a history of noncompliance with wound care Qualifiers: Diabetic foot ulcer location: unspecified part of foot Qualified Code(s): E11.621 - Type 2 diabetes mellitus with foot ulcer; L97.529 - Non-pressure chronic ulcer of other part of left foot with unspecified severity; L97.529 - Non-pressure chronic ulcer of other part of left foot with unspecified severity ; L97.529 - Non-pressure chronic ulcer of other part of left foot with unspecified severity; L97.529 - Non-pressure chronic ulcer of other part of left foot with unspecified severity (7) Hyponatremia Current Visit: No Status: Acute Assessment and plan: Likely secondary to acute kidney injury Secondary from 120 initially to 127 after fluid administration (8) IDDM (insulin dependent diabetes mellitus) Current Visit: No Status: Chronic Assessment and plan: Glucose has been elevated above 200 since admission We will add 10 units of Levemir as she takes 30 at home, on top of low dose SSI (9) HTN (hypertension) Current Visit: No Status: Chronic Assessment and plan: Blood pressures have been stable today Continue home Lopressor Qualifiers: Hypertension type: essential hypertension Qualified Code(s): I10 - Essential (primary) hypertension (10) DVT prophylaxis Current Visit: No Status: Acute Assessment and plan: Heparin 5000 units twice a day - Subjective Interval history: Pt seen and examined. She is still complaining of some nausea and mild vomiting and diarrhea but otherwise has no pain or shortness of breath. - Constitutional Vitals: Temp Pulse Resp BP Pulse Ox 98.2 F 92 16 118/68 98 08/05/17 07:16 08/05/17 07:16 08/05/17 07:16 08/05/17 07:16 08/05/17 07:16 General appearance: Present: cooperative, A&O X 3, pleasant, no acute distress, answers questions appropriately Exam: hard of hearing - Head Head exam: Present: atraumatic, normocephalic - Eye Eye exam: Present: PERRL, conjuntiva pink, sclera anicteric - Neck Neck exam general surgery: Present: supple, trachea midline. Absent: lymphadenopathy - Respiratory Respiratory exam: Present: CTAB. Absent: accessory muscle use, rales, rhonchi, wheezes - Cardiovascular Cardiovascular exam: Present: RRR, +S1, +S2. Absent: diastolic murmur, gallop, rubs, systolic murmur - GI/Abdominal GI/Abdominal exam: Present: normal bowel sounds, soft, no peritoneal signs. Absent: distended, tenderness - Extremities Exam Extremities exam: Present: warm, radial pulses palpable and symmetrical. Absent : calf tenderness, cyanotic, pedal edema - Neurological Exam Neurological exam: Present: alert, no focal deficits. Absent: facial droop, speech deficit - Skin Skin exam: Present: dry, intact Internal Medicine: Result - Labs CBC & Chem 7: 08/05/17 00:50 08/05/17 07:48 - VTE Documentation of Mechanical Device: Intermittent pneumatic compression device Consult Discharge Plan - Plan Referrals: Macario Diallo MD [Primary Care Provider] - (web request 08/05/2017) <WilliamRyder Curt - Last Filed: 08/05/17 17:34> Date of Encounter: 08/05/17 - Assessment and plan (1) Hyperkalemia Current Visit: Yes Status: Acute Assessment and plan: To have dialysis today. (2) Acute worsening of stage 4 chronic kidney disease Current Visit: Yes Status: Acute (3) MERNA (acute kidney injury) Current Visit: Yes Status: Acute (4) Acute gastroenteritis Current Visit: Yes Status: Acute (5) Severe dehydration Current Visit: Yes Status: Acute (6) Urinary retention with incomplete bladder emptying Current Visit: Yes Status: Acute (7) UTI (urinary tract infection) Current Visit: No Status: Suspected Qualifiers: Urinary tract infection type: acute cystitis Hematuria presence: without hematuria Qualified Code(s): N30.00 - Acute cystitis without hematuria (8) HTN (hypertension) Current Visit: No Status: Chronic Qualifiers: Hypertension type: essential hypertension Qualified Code(s): I10 - Essential (primary) hypertension (9) Diabetes mellitus Current Visit: No Status: Chronic Qualifiers: Diabetes mellitus type: type 2 Diabetes mellitus complication status: with skin complications Diabetes mellitus complication detail: with foot ulcer Diabetes mellitus jail insulin use: with jail use Qualified Code(s) : E11.621 - Type 2 diabetes mellitus with foot ulcer; L97.509 - Non-pressure chronic ulcer of other part of unspecified foot with unspecified severity; L97.509 - Non-pressure chronic ulcer of other part of unspecified foot with unspecified severity; L97.509 - Non-pressure chronic ulcer of other part of unspecified foot with unspecified severity; L97.509 - Non-pressure chronic ulcer of other part of unspecified foot with unspecified severity; Z79.4 - FDC (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; Z79.4 - FDC (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; Z79.4 - FDC (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; Z79.4 - FDC (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 (10) Anemia in chronic renal disease Current Visit: No Status: Chronic Qualifiers: Chronic kidney disease stage: stage 4 (severe) Qualified Code(s): N18.4 - Chronic kidney disease, stage 4 (severe); D63.1 - Anemia in chronic kidney disease; D63.1 - Anemia in chronic kidney disease (11) Hydronephrosis Current Visit: No Status: Chronic Qualifiers: Hydronephrosis type: unspecified Qualified Code(s): N13.30 - Unspecified hydronephrosis (12) HLD (hyperlipidemia) Current Visit: No Status: Chronic Qualifiers: Hyperlipidemia type: mixed hyperlipidemia Qualified Code(s): E78.2 - Mixed hyperlipidemia - Constitutional Vitals: Temp Pulse Resp BP Pulse Ox 97.2 F L 83 16 122/70 99 08/05/17 16:12 08/05/17 16:12 08/05/17 16:12 08/05/17 16:12 08/05/17 16:12 Internal Medicine: Result - Labs CBC & Chem 7: 08/05/17 00:50 08/05/17 07:48 Labs: BMP 08/05/17 07:48 Sodium 127 L Potassium 5.6 H Chloride 101 Carbon Dioxide 17 L BUN 108 H Creatinine 6.10 H Glucose 299 H Calcium 8.7 - Impressions Impressions KUB X-Ray 08/05/17 09:57 IMPRESSION: Interval placement of a right femoral central venous catheter with the tip projecting over the mid IVC. D/ / 08/05/2017 10:48:21 Laura Max MD / anup Interpreting Provider: Laura Max MD - Attending Attestation I examined this patient and my medical decision-making was reviewed with the Resident Physician on 08/05/17. I agree with the documented findings, disposition and treatment plan as described except to the extent set forth below. Ms Lacy is currently admitted for worsening renal function and hyperkalemia. She remains moderate to high risk due to potential of complications from renal failure and electrolyte abnormalities. Ms Lacy is resting comfortably. She had temp catheter placed today. To have dialysis today and tomorrow. No fever or chills. No CP or SOB. Exam Alert. Comfortable at this time. Heart reg No wheeze Abd soft I/P 1. ARF - dialysis today 2. Hyperkalemia Further diagnoses and plan as above.
[2017-08-05] MEDS ORDERED: 0.9 % Sodium Chloride 250 ML IVC PRN (08:44)
[2017-08-05 08:50] LABS: Hepatitis B Surface Antibody 0.92 mIU/mL; Hepatitis B Surface Antigen Nonreactive (Nonreactive)
[2017-08-05] MEDS ORDERED: *HR* OxyCODONE Immed Rel 5 MG TABLET PO PRN ×2 (09:27→10:17)
[2017-08-05 09:57] LABS: Calcium 8.7 mg/dL (8.6-10.3); Potassium 5.6 mEq/L (3.5-5.1)
[2017-08-05] MEDS ORDERED: *HR* Heparin 5,000 UNIT/ML VIAL ONE (10:00)
[2017-08-05] MEDS: Insulin LISPRO 300 UNITS/3 ML VIAL SQ SCH ×4 (10:22→23:49)
--- NOTE | 2017-08-05 10:26 | IR Procedure Note ---
Date of procedure: 08/05/17 Consent Obtained: Verbal consent, Written consent Timeout: Correct patient and procedure verified, Correct site verified, Time out performed, Skin prep completed Local anesthetic: Lidocaine 1% Indications: ARF Procedure Performed: temp HDC Was there an travel assistant present: No Site/Technique: R CFV Estimated blood loss (cc): 2 Complications: None; Tolerated procedure well Post Procedure Treatment Plan: KUB Specimen: none
--- NOTE | 2017-08-05 10:34 | Urology - Consult Note ---
Date of Encounter: 08/05/17 Time of Encounter: 10:32 - Assessment and Plan (1) Urinary retention with incomplete bladder emptying Current Visit: Yes Status: Acute Assessment and plan: Will need to continue with patient's catheter at this time. Patient has failed to follow-up from prior hospitalizations. Expectation from this visit is that the patient will need permanent urinary catheter for drainage of her bladder. We will follow closely (2) UTI (urinary tract infection) Current Visit: No Status: Ruled-out Assessment and plan: Urine culture obtained and sent. Await culture results Qualifiers: Urinary tract infection type: site unspecified Hematuria presence: without hematuria Qualified Code(s): N39.0 - Urinary tract infection, site not specified Urology CN:HPI Consult date: 08/05/17 Reason for consult Urology: Other (urinary retention) Requesting physician: Evan Rodriguez History of present illness: Lisa is a 72-year-old female well-known to the urology service for 2 separate consult in the past year for urinary retention with subsequent elevation of her serum creatinine. Patient's creatinine had improved after catheter placement in each of the prior consult. Patient now presents with elevated serum creatinine and elevated potassium. Catheter was placed with 300 mL's of urine returned. Patient also with some mild hydronephrosis on renal ultrasound. Patient has had purulent drainage from her catheter ever since placement. Patient is a known poorly controlled diabetic. Her most recent A1c in July 2017 was 9.8%. Past Med Surg Social Fam HX - Past Medical History Medical history: diabetes (Insulin-dependent), hyperlipidemia, hypertension, renal disease (Chronic kidney disease stage 4/5), other (Positive for MRSA in the past, chronic hypo-natremia, hyperkalemia, UTIs, hyperlipidemia, GERD) Psychiatric history: no psych history - Past Surgical History Surgical History: appendectomy, cholecystectomy, hysterectomy - Social History Smoking Status: Former smoker Smokeless Tobacco Status: No Alcohol use: none Drug use: none Medications and Allergies Metoprolol [Lopressor] 12.5 mg PO BID 03/01/16 [History] Pravastatin Sodium 10 mg PO HS 03/01/16 [History] Insulin Glargine,Hum.rec.anlog [Lantus Solostar] 30 units SQ HS 07/10/17 [ History] Aspirin Enteric Coated [Aspirin EC] 81 mg PO DAILY 08/04/17 [History] Oxygen 1 each .ROUTE AD 08/04/17 [History] 3 Allergy/AdvReac Type Severity Reaction Status Date / Time acetaminophen [From Tylenol] Allergy See Verified 07/10/17 16:41 Comments Influenza Virus Vaccines Allergy See Verified 07/10/17 16:41 Comments Review of Systems - Constitutional no chills, no fever(s) - EENT Nose, mouth and throat: no dizziness - Cardiovascular no chest pain - Respiratory no cough - Gastrointestinal no abdominal pain - Genitourinary Genitourinary: other (Difficulty emptying bladder) - Musculoskeletal no back pain - Integumentary no erythema - Neurological confusion - Allergic/Immunologic no throat swelling Exam Initial Vital Signs Temp Pulse Resp BP Pulse Ox 96.0 F L 104 18 177/100 99 08/04/17 12:45 08/04/17 12:45 08/04/17 12:45 08/04/17 12:45 08/04/17 12:45 - General physical appearance Present: well developed - Eyes Present: PERRL - ENT Present: normal nares - Neck Present: no masses - Respiratory Present: normal respiratory effort - Cardiovascular Cardiovascular exam IM: RRR - Abdomen Abdomen: Present: soft - Genitourinary Present: other (Purulent urine in catheter tubing) Urology Results - Labs 08/05/17 00:50 08/05/17 07:48 Abnormal lab results WBC 11.8 K/mcL (4.3-11.1) H 08/05/17 00:50 Hgb 10.4 g/dL (11.5-15.4) L D 08/05/17 00:50 Hct 31.1 % (35.3-44.9) L 08/05/17 00:50 MCV 77.9 fL (83.0-100.0) L 08/05/17 00:50 MCH 26.1 pg (28.0-33.3) L 08/05/17 00:50 Plt Count 401 K/mcL (140-400) H 08/05/17 00:50 MPV 8.9 fL (9.4-12.4) L 08/05/17 00:50 Sodium 127 mEq/L (136-145) L 08/05/17 07:48 Potassium 5.6 mEq/L (3.5-5.1) H 08/05/17 07:48 Carbon Dioxide 17 mEq/L (23-29) L 08/05/17 07:48 BUN 108 mg/dL (8-23) H 08/05/17 07:48 Creatinine 6.10 mg/dL (0.60-1.20) H 08/05/17 07:48 Est GFR ( Amer) 8 (> 60) L 08/05/17 07:48 Est GFR (Non-Af Amer) 7 (> 60) L 08/05/17 07:48 Glucose 299 mg/dL (70-105) H 08/05/17 07:48 POC Glucose 275 (58-89) H 08/05/17 08:00 Calculated Osmolality 309 (280-300) H 08/05/17 07:48 Phosphorus 5.9 mg/dL (2.7-4.5) H 08/05/17 00:50 Direct Bilirubin 0.3 mg/dL (0.0-0.2) H 08/04/17 13:44 AST 6 Units/L (13-39) L 08/04/17 13:44 ALT 5 Units/L (7-52) L 08/04/17 13:44 Alkaline Phosphatase 188 Units/L (34-104) H 08/04/17 13:44 Serum Total Protein 11.4 g/dL (6.4-8.9) H 08/04/17 13:44 Globulin 7.7 g/dL (2.4-3.5) H 08/04/17 13:44 Albumin/Globulin Ratio 0.5 (1.1-2.2) L 08/04/17 13:44 Diabetes panel 08/05/17 Range/Units 07:48 Sodium 127 L (136-145) mEq/L Potassium 5.6 H (3.5-5.1) mEq/L Chloride 101 (98-107) mEq/L Carbon Dioxide 17 L (23-29) mEq/L BUN 108 H (8-23) mg/dL Creatinine 6.10 H (0.60-1.20) mg/dL Glucose 299 H (70-105) mg/dL Calcium 8.7 (8.6-10.3) mg/dL Calcium panel 08/05/17 Range/Units 07:48 Calcium 8.7 (8.6-10.3) mg/dL Pituitary panel 08/05/17 Range/Units 07:48 Sodium 127 L (136-145) mEq/L Potassium 5.6 H (3.5-5.1) mEq/L Chloride 101 (98-107) mEq/L Carbon Dioxide 17 L (23-29) mEq/L BUN 108 H (8-23) mg/dL Creatinine 6.10 H (0.60-1.20) mg/dL Glucose 299 H (70-105) mg/dL Calcium 8.7 (8.6-10.3) mg/dL Adrenal panel 08/05/17 Range/Units 07:48 Sodium 127 L (136-145) mEq/L Potassium 5.6 H (3.5-5.1) mEq/L Chloride 101 (98-107) mEq/L Carbon Dioxide 17 L (23-29) mEq/L BUN 108 H (8-23) mg/dL Creatinine 6.10 H (0.60-1.20) mg/dL Glucose 299 H (70-105) mg/dL Calcium 8.7 (8.6-10.3) mg/dL All other labs normal. Consult Discharge Plan - Plan Referrals: Macario Diallo MD [Primary Care Provider] -
[2017-08-05] MEDS ORDERED: 0.9 % Sodium Chloride 2,000 ML ONE (11:05)
--- NOTE | 2017-08-05 14:10 | Nephrology Consult Note ---
Date of Encounter: 08/05/17 Time of Encounter: 14:07 Assessment and Plan (1) MERNA (acute kidney injury) Current Visit: Yes Status: Acute Acute kidney injury on chronic kidney disease stage IV in the setting of hypertension and diabetes. MERNA likely related to severe hypovolemia in the setting of gastroenteritis. Patient has significant hyperkalemia with peaked T waves that was initially treated medically and slightly improved however she remains hyperkalemic, patient also has a non-anion gap metabolic acidosis, likely due to acute renal failure. Patient also has uremia which could be contributing to her nausea and vomiting. Given these findings we have recommended that the patient undergo urgent hemodialysis. This was discussed with the patient and she agrees to proceed. IR is been consulted for temporary hemodialysis catheter. We will plan for hemodialysis today as well as tomorrow. We will continually reassess. Patient also has a chronic mild to moderate bilateral hydronephrosis which could also be contributing to her acute kidney injury. Agree with Madden placement and urologic consultation. Follow a renal protective strategy by avoiding nephrotoxins and dose medications based on GFR. Anemia: Patient presented with a hemoglobin of 13.5 however review of records reveal her baseline hemoglobin appears to be 8 and 9, likely indicating hemoconcentration. Expect this to decrease as the patient is hydrated. Possibly related to anemia of chronic kidney disease. Will check iron profile in the morning and supplement iron as needed. Patient may also be a candidate for MAYELA. Hypovolemic hyponatremia: Acute on chronic. Patient presented with a sodium of 120 with a baseline appearing to be in the low 130s. This is likely related to hypovolemia in the setting of acute gastroenteritis. Agree with fluid hydration which had actually increased her sodium to 128 this morning. Patient was then transitioned to D5W to slow the rate of sodium correction agree with continuing this and monitoring her sodium closely. Aim for correction rate of 4 -6 mEq of sodium every 24 hours. Thank you for consulting the [facility]. Will closely follow along. (2) Chronic kidney disease, stage IV (severe) Current Visit: Yes Status: Acute As above (3) Hyponatremia Current Visit: No Status: Acute As above (4) Hyperkalemia Current Visit: No Status: Acute As above (5) Gastroenteritis Current Visit: No Status: Acute Management per primary (6) Hydronephrosis Current Visit: No Status: Acute As above Qualifiers: Hydronephrosis type: unspecified Qualified Code(s): N13.30 - Unspecified hydronephrosis (7) Anemia in chronic renal disease Current Visit: No Status: Acute As above Qualifiers: Chronic kidney disease stage: stage 4 (severe) Qualified Code(s): N18.4 - Chronic kidney disease, stage 4 (severe); D63.1 - Anemia in chronic kidney disease; D63.1 - Anemia in chronic kidney disease (8) Metabolic acidosis Current Visit: No Status: Acute As above History of Present Illness - Reason for Consult Consult date: 08/05/17 Acute Kidney Injury, Chronic Kidney Disease, hyponatremia Requesting physician: Todd Gore - Chief Complaint N/V/D - History of Present Illness Patient is a 72-year-old female with history of chronic kidney disease stage IV , chronic hyponatremia, bilateral hydronephrosis who presents with nausea, vomiting, diarrhea. Patient states that she has been nauseous for about 3 days and started vomiting yesterday. She reports poor by mouth intake. She also reports decreased appetite. She denies confusion, fever, chills, chest pain, shortness of breath, lower extremity edema Past Med Surg Social Fam HX - Past Medical History Medical history: diabetes (Insulin-dependent), hyperlipidemia, hypertension, renal disease (Chronic kidney disease stage 4/5), other (Positive for MRSA in the past, chronic hypo-natremia, hyperkalemia, UTIs, hyperlipidemia, GERD) Psychiatric history: no psych history - Past Surgical History Surgical History: appendectomy, cholecystectomy, hysterectomy - Social History Smoking Status: Former smoker Smokeless Tobacco Status: No Alcohol use: none Drug use: none Medications and Allergies Metoprolol [Lopressor] 12.5 mg PO BID 03/01/16 [History] Pravastatin Sodium 10 mg PO HS 03/01/16 [History] Insulin Glargine,Hum.rec.anlog [Lantus Solostar] 30 units SQ HS 07/10/17 [ History] Aspirin Enteric Coated [Aspirin EC] 81 mg PO DAILY 08/04/17 [History] Oxygen 1 each .ROUTE AD 08/04/17 [History] 3 Allergy/AdvReac Type Severity Reaction Status Date / Time acetaminophen [From Tylenol] Allergy See Verified 07/10/17 16:41 Comments Influenza Virus Vaccines Allergy See Verified 07/10/17 16:41 Comments Review of Systems All Systems: reviewed and no additional remarkable complaints except as stated Exam - Vital Signs Vital signs: Initial Vital Signs Temp Pulse Resp BP Pulse Ox 96.0 F L 104 18 177/100 99 08/04/17 12:45 08/04/17 12:45 08/04/17 12:45 08/04/17 12:45 08/04/17 12:45 Vital Signs - Last 8 Hours Temp Pulse Resp BP Pulse Ox 08/05/17 11:35 97.3 F L 84 15 115/67 97 Intake and Output 08/04/17 08/05/17 08/05/17 23:59 07:59 15:59 Intake Total 60 / 60 Balance 60 / 60 Intake: Oral 60 / 60 Other: Meal Lunch Percent of Meal Consumed 40% Blood Glucose* 329 - General Appearance General appearance: well-developed, well-nourished, appears started age EENT: ATNC, mucous membranes moist Neck: supple Respiratory: clear Cardiology: no murmurs, no rub, no gallops, no edema, regular rate, regular rhythm Gastrointestinal: normoactive bowel sounds, no tenderness, no guarding Integumentary: no rash, warm and dry Neurologic: no focal deficit, alert and oriented x3 Musculoskeletal: no deformities, no erythema, no cyanosis Results - Lab Results 08/05/17 00:50 08/05/17 07:48 Most recent lab results Calcium 8.7 mg/dL (8.6-10.3) 08/05/17 07:48 Phosphorus 5.9 mg/dL (2.7-4.5) H 08/05/17 00:50 Magnesium 1.7 mg/dL (1.6-2.6) 08/05/17 00:50 Urine Sodium 88.0 mEq/L 08/05/17 00:00 Consult Discharge Plan - Plan Referrals: Macario Diallo MD [Primary Care Provider] - (web request 08/05/2017)
--- NOTE | 2017-08-05 16:38 | Electrocardiograph Report ---
[address] [place], [place] [address] Test Date: 2017-08-04 Pat Name: Lisa Lacy Department: [id number] Room: 2A34 Gender: F Configuration Management Specialist: : [id number] Requested By: Todd Gore Order Number: [id number] Reading MD: Haleigh Caba Measurements Intervals [place] Rate: 101 P: 58 WI: 224 QRS: -24 QRSD: 122 T: 133 QT: 357 QTc: 415 Interpretive Statements SINUS TACHYCARDIA WITH FIRST DEGREE AV BLOCK MODERATE INTRAVENTRICULAR CONDUCTION DELAY ST DEVIATION AND MODERATE T-WAVE ABNORMALITY, CONSIDER LATERAL ISCHEMIA Electronically Signed On 08-05-2017 16:36:37 EST by Haleigh Caba
[2017-08-05] MEDS: *HR* Heparin 5,000 UNIT/ML VIAL SQ SCH (20:37)
[2017-08-05 21:03] LABS: INR 1.4; Prothrombin Time 15.4 Seconds (9.4-12.1)
[2017-08-05] MEDS: Insulin DETEMIR 100 UNIT/ML X5UNITS SQ SCH (23:54)
[2017-08-06] MEDS: MetroNIDAZOLE 500 MG/100 ML 500 MG/100 ML BAG IVPB SCH (04:32)
[2017-08-06 04:41] LABS: Basophils % 0.3 %; Eosinophils # 0.1 K/mcL (0.0-0.6); Eosinophils % 1.9 %; Hematocrit 27.7 % (35.3-44.9); Immature Granulocytes % 0.4 % (0-4); Lymphocytes # 2.2 K/mcL (0.6-4.6); Lymphocytes % 29.4 %; Mean Corpuscular HGB Conc 32.5 g/dL (31.6-35.5); Mean Corpuscular Hemoglobin 25.9 pg (28.0-33.3); Mean Corpuscular Volume 79.8 fL (83.0-100.0); Monocytes # 0.6 K/mcL (0.0-1.3); Monocytes % 7.6 %; Neutrophils # 4.5 K/mcL (1.6-8.9); Platelet Count 342 K/mcL (140-400); Red Blood Count 3.47 M/mcL (3.82-4.97); Red Cell Distribution Width 14.3 % (11.5-14.5); Segmented Neutrophils % 60.4 %
[2017-08-06 05:03] LABS: % Iron Saturation 11 % (15-50); Iron 25 mcg/dL (50-170); Transferrin 158 mg/dL (203-362)
[2017-08-06 05:07] LABS: Calcium 8.3 mg/dL (8.6-10.3); Potassium 3.6 mEq/L (3.5-5.1)
[2017-08-06] MEDS: *HR* Heparin 5,000 UNIT/ML VIAL SQ SCH ×2 (05:31→17:34)
[2017-08-06] MEDS ORDERED: 0.9 % Sodium Chloride 250 ML IVC PRN (08:05)
[2017-08-06] MEDS ORDERED: Aspirin 81 MG TAB.CHEW ONE (08:40)
[2017-08-06] MEDS: Aspirin Enteric Coated 81 MG Tablet PO SCH (08:42)
[2017-08-06] MEDS: Insulin LISPRO 300 UNITS/3 ML VIAL SQ SCH ×4 (08:46→21:10)
--- NOTE | 2017-08-06 08:51 | Internal Med Progress Note ---
<Jony Ricketts - Last Filed: 08/06/17 10:29> Date of Encounter: 08/06/17 Time of Encounter: 08:48 - Assessment and plan (1) Acute worsening of stage 4 chronic kidney disease Current Visit: Yes Status: Acute Assessment and plan: Possibly postrenal in setting of chronic urinary retention and stable bilateral hydronephrosis Cr improved today after dialysis and she may not need chronic dialysis if renal function remains stable She has been evaluated in the past by urology but has been noncompliant with catheter use Appreciate both nephrology and urology consult Temporary dialysis catheter placed yesterday but she did have some bleeding from the site Continue to monitor creatinine and electrolytes, avoid nephrotoxic agents (2) Anemia Current Visit: No Status: Chronic Assessment and plan: Hb did drop to 9.0 from 10.4 today after she got dialyzed Will repeat H/H this afternoon and type and screen in case she were to require transfusion VSS as she is non-tachycardic and normotensive Qualifiers: Anemia type: unspecified type Qualified Code(s): D64.9 - Anemia, unspecified (3) Hyperkalemia Current Visit: No Status: Acute Assessment and plan: Potassium down to 3.6 today after dialysis Will recheck BMP tomorrow morning to see if she requires additional dialysis sessions (4) Urinary retention with incomplete bladder emptying Current Visit: Yes Status: Acute Assessment and plan: Urology consult, appreciate recommendations She has a Madden catheter currently, and will likely need chronic use upon discharge (5) UTI (urinary tract infection) Current Visit: No Status: Suspected Assessment and plan: Madden catheter did show purulent drainage Urine cultures have been collected, awaiting results No signs of systemic infection as she has not had fever, white count Qualifiers: Urinary tract infection type: acute cystitis Hematuria presence: without hematuria Qualified Code(s): N30.00 - Acute cystitis without hematuria (6) Acute gastroenteritis Current Visit: Yes Status: Acute Assessment and plan: Patient did have diarrhea prior to admission but denies any since then GI panel pending, Flagyl was discontinued have 2 days (7) Diabetic ulcer of left foot Current Visit: Yes Status: Chronic Assessment and plan: Wound care consulted, appreciate management She has a history of noncompliance with wound care Qualifiers: Diabetic foot ulcer location: unspecified part of foot Qualified Code(s): E11.621 - Type 2 diabetes mellitus with foot ulcer; L97.529 - Non-pressure chronic ulcer of other part of left foot with unspecified severity; L97.529 - Non-pressure chronic ulcer of other part of left foot with unspecified severity ; L97.529 - Non-pressure chronic ulcer of other part of left foot with unspecified severity; L97.529 - Non-pressure chronic ulcer of other part of left foot with unspecified severity (8) Hyponatremia Current Visit: No Status: Acute Assessment and plan: Likely secondary to acute kidney injury Improving after dialysis yesterday to 135 from 127 yesterday (9) IDDM (insulin dependent diabetes mellitus) Current Visit: No Status: Chronic Assessment and plan: Glucose accuchecks have improved since 10 units of Levemir added on top of low dose SSI ACHS (10) HTN (hypertension) Current Visit: No Status: Chronic Assessment and plan: Blood pressures have been stable today Continue home Lopressor Qualifiers: Hypertension type: essential hypertension Qualified Code(s): I10 - Essential (primary) hypertension (11) DVT prophylaxis Current Visit: No Status: Acute Assessment and plan: Heparin 5000 units twice a day held due to bleeding around cath site - Subjective Interval history: Pt seen and examined. She states she is feeling better after getting dialysis yesterday and has no complaints of chest pain or breathing. She did have some bleeding in her right groin after the temp cath insertion but has no pain around the site. - Constitutional Vitals: Temp Pulse Resp BP Pulse Ox 98.1 F 81 17 91/47 97 08/06/17 07:21 08/06/17 07:21 08/06/17 07:21 08/06/17 07:21 08/06/17 07:21 General appearance: Present: cooperative, pleasant, no acute distress, answers questions appropriately - Head Head exam: Present: atraumatic, normocephalic - Eye Eye exam: Present: PERRL, conjuntiva pink, sclera anicteric - Neck Neck exam general surgery: Present: supple, trachea midline. Absent: lymphadenopathy - Respiratory Respiratory exam: Present: CTAB. Absent: accessory muscle use, rales, rhonchi, wheezes - Cardiovascular Cardiovascular exam: Present: RRR, +S1, +S2. Absent: diastolic murmur, gallop, rubs, systolic murmur - GI/Abdominal GI/Abdominal exam: Present: normal bowel sounds, soft, no peritoneal signs. Absent: distended, tenderness - Extremities Exam Extremities exam: Present: warm, radial pulses palpable and symmetrical. Absent : calf tenderness, cyanotic, pedal edema - Neurological Exam Neurological exam: Present: alert, no focal deficits. Absent: facial droop, speech deficit - Skin Skin exam: Present: dry, intact Internal Medicine: Result - Labs CBC & Chem 7: 08/06/17 04:10 08/06/17 04:10 Labs: Short CBC 08/06/17 Range/Units 04:10 WBC 7.5 (4.3-11.1) K/mcL Hgb 9.0 L (11.5-15.4) g/dL Hct 27.7 L (35.3-44.9) % Plt Count 342 (140-400) K/mcL Neutrophils # 4.5 (1.6-8.9) K/mcL BMP 08/05/17 08/06/17 07:48 04:10 Sodium 127 L 135 L Potassium 5.6 H 3.6 D Chloride 101 100 Carbon Dioxide 17 L 28 BUN 108 H 51 H Creatinine 6.10 H 3.74 H Glucose 299 H 147 H Calcium 8.7 8.3 L - ABG Interpretation ABG results: PT/INR, D-dimer PT 15.4 Seconds (9.4-12.1) H 08/05/17 20:39 - Impressions Impressions KUB X-Ray 08/05/17 09:57 IMPRESSION: Interval placement of a right femoral central venous catheter with the tip projecting over the mid IVC. D/ 08/05/2017 10:48:21 Laura Max MD / anup Interpreting Provider: Laura Max MD - VTE Documentation of Mechanical Device: Intermittent pneumatic compression device Consult Discharge Plan - Plan Referrals: Macario Diallo MD [Primary Care Provider] - (web request 08/05/2017) <Ryder Thomas - Last Filed: 08/06/17 17:01> Date of Encounter: 08/06/17 - Assessment and plan (1) Acute renal failure Current Visit: Yes Status: Suspected Qualifiers: Acute renal failure type: with acute tubular necrosis Qualified Code(s): N17.0 - Acute kidney failure with tubular necrosis (2) UTI (urinary tract infection) Current Visit: No Status: Suspected Qualifiers: Urinary tract infection type: acute cystitis Hematuria presence: without hematuria Qualified Code(s): N30.00 - Acute cystitis without hematuria (3) Hydronephrosis Current Visit: No Status: Chronic Qualifiers: Hydronephrosis type: other Qualified Code(s): N13.39 - Other hydronephrosis (4) Hyperkalemia Current Visit: Yes Status: Acute Assessment and plan: Improving with dialysis. (5) Acute gastroenteritis Current Visit: Yes Status: Resolved (6) Severe dehydration Current Visit: Yes Status: Resolved (7) Urinary retention with incomplete bladder emptying Current Visit: Yes Status: Acute (8) HTN (hypertension) Current Visit: No Status: Chronic Qualifiers: Hypertension type: essential hypertension Qualified Code(s): I10 - Essential (primary) hypertension (9) Diabetes mellitus Current Visit: No Status: Chronic Qualifiers: Diabetes mellitus type: type 2 Diabetes mellitus complication status: with skin complications Diabetes mellitus complication detail: with foot ulcer Diabetes mellitus intermodal dispatcher insulin use: with care home use Qualified Code(s) : E11.621 - Type 2 diabetes mellitus with foot ulcer; L97.509 - Non-pressure chronic ulcer of other part of unspecified foot with unspecified severity; L97.509 - Non-pressure chronic ulcer of other part of unspecified foot with unspecified severity; L97.509 - Non-pressure chronic ulcer of other part of unspecified foot with unspecified severity; L97.509 - Non-pressure chronic ulcer of other part of unspecified foot with unspecified severity; Z79.4 - oysterman (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; Z79.4 - snf (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; Z79.4 - snf (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; Z79.4 - oysterman (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 (10) Anemia in chronic renal disease Current Visit: No Status: Chronic Qualifiers: Chronic kidney disease stage: stage 4 (severe) Qualified Code(s): N18.4 - Chronic kidney disease, stage 4 (severe); D63.1 - Anemia in chronic kidney disease; D63.1 - Anemia in chronic kidney disease (11) HLD (hyperlipidemia) Current Visit: No Status: Chronic Qualifiers: Hyperlipidemia type: mixed hyperlipidemia Qualified Code(s): E78.2 - Mixed hyperlipidemia - Constitutional Vitals: Temp Pulse Resp BP Pulse Ox 97.9 F 81 17 115/85 98 08/06/17 16:27 08/06/17 16:27 08/06/17 16:27 08/06/17 16:27 08/06/17 16:27 Internal Medicine: Result - Labs CBC & Chem 7: 08/06/17 04:10 08/06/17 04:10 Labs: Short CBC 08/06/17 Range/Units 04:10 WBC 7.5 (4.3-11.1) K/mcL Hgb 9.0 L (11.5-15.4) g/dL Hct 27.7 L (35.3-44.9) % Plt Count 342 (140-400) K/mcL Neutrophils # 4.5 (1.6-8.9) K/mcL BMP 08/06/17 04:10 Sodium 135 L Potassium 3.6 D Chloride 100 Carbon Dioxide 28 BUN 51 H Creatinine 3.74 H Glucose 147 H Calcium 8.3 L - ABG Interpretation ABG results: PT/INR, D-dimer PT 15.4 Seconds (9.4-12.1) H 08/05/17 20:39 - Attending Attestation I examined this patient and my medical decision-making was reviewed with the Resident Physician on 08/06/17. I agree with the documented findings, disposition and treatment plan as described except to the extent set forth below. Ms Lacy is currently admitted for acute renal failure and hyperkalemia. She remains moderate to high risk due to potential for worsening clinical status. Ms Lacy has tolerated dialysis. No fever or chills. No CP at this time. She is eating lunch at this time. No GI issues. Exam Alert. Comfortable Mucus membranes dry Heart distant Lungs clear at this time Abd soft I/P 1. ARF 2. Hyperkalemia Further diagnoses and plan as above.
[2017-08-06] MEDS ORDERED: *HR* Heparin 10,000 UNIT/10 ML VIAL IV PRN (11:45)
[2017-08-06] MEDS ORDERED: 0.9 % Sodium Chloride 1,000 ML ONE (12:01)
--- NOTE | 2017-08-06 13:37 | Nephrology Progress Note ---
Date of Encounter: 08/06/17 Time of Encounter: 13:35 - Assessment and Plan (1) MERNA (acute kidney injury) Current Visit: Yes Status: Acute MERNA on CKD IV. Likely combination of prerenal azotemia and post renal obstruction. MERNA much improved today after fluid hydration, Madden placement and hemodialysis treatment yesterday. Hyperkalemia and metabolic acidosis have resolved with HD. Patient will likely not require HD tomorrow but will reassess in the morning. Patient was also noted to be iron deficient anemic with a hemoglobin of 9.0. Recommend oral iron supplementation. Acute on chronic hyponatremia has also resolved at this time and her sodium has returned to her baseline at 135. Asymptomatic. As for hydronephrosis, we appreciate urologic input, patient may require Madden catheter remain in place at discharge. Will defer further management to urology. We will continue to follow. (2) Chronic kidney disease, stage IV (severe) Current Visit: Yes Status: Acute (3) Hyponatremia Current Visit: No Status: Acute (4) Hyperkalemia Current Visit: No Status: Acute (5) Gastroenteritis Current Visit: No Status: Acute (6) Hydronephrosis Current Visit: No Status: Chronic Qualifiers: Hydronephrosis type: unspecified Qualified Code(s): N13.30 - Unspecified hydronephrosis (7) Anemia in chronic renal disease Current Visit: No Status: Chronic Qualifiers: Chronic kidney disease stage: stage 4 (severe) Qualified Code(s): N18.4 - Chronic kidney disease, stage 4 (severe); D63.1 - Anemia in chronic kidney disease; D63.1 - Anemia in chronic kidney disease (8) Metabolic acidosis Current Visit: No Status: Acute Subjective Principal diagnosis: ARF Interval history: Patient seen and examined in dialysis. She states she feels much better today. She reports much improved output and denies nausea and vomiting. She denies shortness of breath, chest pain, abdominal pain, lower extremity swelling. Objective - Vital Signs Vital signs: Vital Signs Temp Pulse Resp BP Pulse Ox 08/06/17 11:40 18 137/65 08/06/17 11:20 118/60 08/06/17 11:05 106/47 08/06/17 10:50 118/60 08/06/17 10:35 114/43 08/06/17 10:20 98/49 08/06/17 10:05 114/57 08/06/17 09:50 101/47 08/06/17 09:35 96/44 08/06/17 09:20 97.2 F L 18 95/42 08/06/17 07:21 98.1 F 81 17 91/47 97 08/06/17 04:35 98.8 F 80 16 115/62 96 08/06/17 00:12 98.2 F 85 16 109/55 96 08/05/17 20:12 97.5 F L 91 16 126/71 98 08/05/17 19:30 98.5 F 22 118/63 08/05/17 19:15 111/53 08/05/17 19:00 110/60 08/05/17 18:45 112/63 08/05/17 18:30 106/58 08/05/17 18:15 115/66 08/05/17 18:00 112/57 08/05/17 17:45 116/62 08/05/17 17:30 98.5 F 20 116/66 08/05/17 16:12 97.2 F L 83 16 122/70 99 Intake and Output 08/05/17 08/06/17 08/06/17 23:59 07:59 15:59 Intake Total 700 / 700 100 / 100 1370 / 1370 Output Total 800 / 800 400 / 400 600 / 600 Balance -100 / -100 -300 / -300 770 / 770 Intake: IV Fluids 100 / 100 100 / 100 Flagyl Premix 500 MG/100 ML 500 100 / 100 100 / 100 mg In 100 ml @ 100 mls/hr IVPB Q8H [facility] Rx#:[id number] Oral 0 / 0 770 / 770 Intake, Rinseback and Flushes 600 / 600 600 / 600 Output: Urine 0 / 0 0 / 0 Total Dialysis (HD) Output 0 / 0 600 / 600 Catheter 800 / 800 400 / 400 Urethral (Madden) 400 / 400 200 / 200 Other: Meal Breakfast Percent of Meal Consumed 80% Weight 55.5 kg 54 kg Blood Glucose* 163 135 Hemodialysis Net Fluid Removed 600 600 (mL) Patient Weight 08/06/17 23:59 Weight 54 kg - General Appearance General appearance: Present: well-developed, well-nourished, appears started age EENT: Present: ATNC, mucous membranes moist Neck: Present: supple Cardiology: Present: no murmurs, no rub, edema, regular rate, regular rhythm Dialysis Vascular Access: Venous Catheter (Right femoral temporary HD line) Additional Comments: Mild amount of bleeding noted around the site Gastrointestinal: Present: normoactive bowel sounds, no tenderness, no guarding Integumentary: Present: no rash, warm and dry Neurologic: Present: no focal deficit, alert and oriented x3 Musculoskeletal: Present: no deformities, no erythema, no cyanosis - Lab 08/06/17 04:10 08/06/17 04:10 Most recent lab results Calcium 8.3 mg/dL (8.6-10.3) L 08/06/17 04:10 Phosphorus 5.9 mg/dL (2.7-4.5) H 08/05/17 00:50 Magnesium 1.7 mg/dL (1.6-2.6) 08/05/17 00:50 Urine Sodium 88.0 mEq/L 08/05/17 00:00 - VTE Documentation of Mechanical Device: Intermittent pneumatic compression device Consult Discharge Plan - Plan Referrals: Macario Diallo MD [Primary Care Provider] - (web request 08/05/2017)
--- NOTE | 2017-08-06 17:28 | Urology Progress Note ---
Date of Encounter: 08/06/17 Time of Encounter: 17:27 - Assessment and Plan (1) Urinary retention with incomplete bladder emptying Current Visit: Yes Status: Acute Assessment and plan: Patient will need to continue with catheter at this time. Her urine remains cloudy but urine culture was negative. This most likely represents debris within the bladder. This will clear with time as well as fluids. We will continue to follow along. (2) UTI (urinary tract infection) Current Visit: No Status: Suspected Qualifiers: Urinary tract infection type: acute cystitis Hematuria presence: without hematuria Qualified Code(s): N30.00 - Acute cystitis without hematuria Progress Note Narrative: Patient seen this afternoon. Patient states that she is feeling better. Tolerating catheter well. Did have dialysis yesterday. Serum creatinine stable. Objective Initial Vital Signs Temp Pulse Resp BP Pulse Ox 96.0 F L 104 18 177/100 99 08/04/17 12:45 08/04/17 12:45 08/04/17 12:45 08/04/17 12:45 08/04/17 12:45 - General physical appearance Present: well developed, no distress - Abdomen Present: soft. Absent: masses - Genitourinary Urine Appearance: Present: Cloudy - Labs 08/06/17 04:10 08/06/17 04:10 Diabetes panel 08/06/17 Range/Units 04:10 Sodium 135 L (136-145) mEq/L Potassium 3.6 D (3.5-5.1) mEq/L Chloride 100 (98-107) mEq/L Carbon Dioxide 28 (23-29) mEq/L BUN 51 H (8-23) mg/dL Creatinine 3.74 H (0.60-1.20) mg/dL Glucose 147 H (70-105) mg/dL Calcium 8.3 L (8.6-10.3) mg/dL Calcium panel 08/06/17 Range/Units 04:10 Calcium 8.3 L (8.6-10.3) mg/dL Pituitary panel 08/06/17 Range/Units 04:10 Sodium 135 L (136-145) mEq/L Potassium 3.6 D (3.5-5.1) mEq/L Chloride 100 (98-107) mEq/L Carbon Dioxide 28 (23-29) mEq/L BUN 51 H (8-23) mg/dL Creatinine 3.74 H (0.60-1.20) mg/dL Glucose 147 H (70-105) mg/dL Calcium 8.3 L (8.6-10.3) mg/dL Adrenal panel 08/06/17 Range/Units 04:10 Sodium 135 L (136-145) mEq/L Potassium 3.6 D (3.5-5.1) mEq/L Chloride 100 (98-107) mEq/L Carbon Dioxide 28 (23-29) mEq/L BUN 51 H (8-23) mg/dL Creatinine 3.74 H (0.60-1.20) mg/dL Glucose 147 H (70-105) mg/dL Calcium 8.3 L (8.6-10.3) mg/dL - VTE Documentation of Mechanical Device: Intermittent pneumatic compression device Consult Discharge Plan - Plan Referrals: Macario Diallo MD [Primary Care Provider] - (web request 08/05/2017)
[2017-08-06] MEDS: Insulin DETEMIR 100 UNIT/ML X5UNITS SQ SCH (21:11)
[2017-08-07 04:09] LABS: Hemoglobin 8.3 g/dL (11.5-15.4); Mean Corpuscular HGB Conc 31.9 g/dL (31.6-35.5); Mean Corpuscular Hemoglobin 26.3 pg (28.0-33.3); Mean Corpuscular Volume 82.5 fL (83.0-100.0); Platelet Count 278 K/mcL (140-400); Red Blood Count 3.15 M/mcL (3.82-4.97); Red Cell Distribution Width 14.6 % (11.5-14.5)
[2017-08-07 04:35] LABS: Potassium 4.3 mEq/L (3.5-5.1)
[2017-08-07 04:36] LABS: Calcium 8.1 mg/dL (8.6-10.3)
[2017-08-07] MEDS: *HR* Heparin 5,000 UNIT/ML VIAL SQ SCH ×2 (05:57→17:00)
[2017-08-07] MEDS: Insulin LISPRO 300 UNITS/3 ML VIAL SQ SCH ×4 (07:43→22:08)
--- NOTE | 2017-08-07 08:10 | Urology Progress Note ---
Date of Encounter: 08/07/17 Time of Encounter: 08:09 - Assessment and Plan (1) Urinary retention with incomplete bladder emptying Current Visit: Yes Status: Acute Assessment and plan: Continue catheter at this time. Patient's purulent urine is improving slowly. (2) UTI (urinary tract infection) Current Visit: No Status: Suspected Assessment and plan: No evidence of urinary tract infection at this time. Urine culture negative Qualifiers: Urinary tract infection type: acute cystitis Hematuria presence: without hematuria Qualified Code(s): N30.00 - Acute cystitis without hematuria Progress Note Narrative: Patient seen this a.m. Feeling better. Serum creatinine improved. Per nurse not drinking much water. Objective Initial Vital Signs Temp Pulse Resp BP Pulse Ox 96.0 F L 104 18 177/100 99 08/04/17 12:45 08/04/17 12:45 08/04/17 12:45 08/04/17 12:45 08/04/17 12:45 - General physical appearance Present: well developed - Abdomen Present: soft. Absent: masses - Genitourinary Urine Appearance: Present: Cloudy (But slightly improved) - Labs 08/07/17 04:00 08/07/17 04:00 Diabetes panel 08/07/17 Range/Units 04:00 Sodium 133 L (136-145) mEq/L Potassium 4.3 (3.5-5.1) mEq/L Chloride 99 (98-107) mEq/L Carbon Dioxide 28 (23-29) mEq/L BUN 26 H (8-23) mg/dL Creatinine 2.61 H (0.60-1.20) mg/dL Glucose 137 H (70-105) mg/dL Calcium 8.1 L (8.6-10.3) mg/dL Calcium panel 08/07/17 Range/Units 04:00 Calcium 8.1 L (8.6-10.3) mg/dL Pituitary panel 08/07/17 Range/Units 04:00 Sodium 133 L (136-145) mEq/L Potassium 4.3 (3.5-5.1) mEq/L Chloride 99 (98-107) mEq/L Carbon Dioxide 28 (23-29) mEq/L BUN 26 H (8-23) mg/dL Creatinine 2.61 H (0.60-1.20) mg/dL Glucose 137 H (70-105) mg/dL Calcium 8.1 L (8.6-10.3) mg/dL Adrenal panel 08/07/17 Range/Units 04:00 Sodium 133 L (136-145) mEq/L Potassium 4.3 (3.5-5.1) mEq/L Chloride 99 (98-107) mEq/L Carbon Dioxide 28 (23-29) mEq/L BUN 26 H (8-23) mg/dL Creatinine 2.61 H (0.60-1.20) mg/dL Glucose 137 H (70-105) mg/dL Calcium 8.1 L (8.6-10.3) mg/dL - VTE Documentation of Mechanical Device: Intermittent pneumatic compression device Consult Discharge Plan - Plan Referrals: Macario Diallo MD [Primary Care Provider] - (web request 08/05/2017)
--- NOTE | 2017-08-07 08:39 | Internal Med Progress Note ---
<Jony Ricketts - Last Filed: 08/07/17 10:07> Date of Encounter: 08/07/17 Time of Encounter: 08:37 - Assessment and plan (1) Acute worsening of stage 4 chronic kidney disease Current Visit: Yes Status: Acute Assessment and plan: Possibly postrenal in setting of chronic urinary retention and stable bilateral hydronephrosis Cr continues to improve slightly after dialysis last two days Will monitor kidney function for entire day off dialysis before determining if she requires supervisor intermediates She has been evaluated in the past by urology but has been noncompliant with catheter use Appreciate both nephrology and urology consult Continue to monitor creatinine and electrolytes, avoid nephrotoxic agents (2) Anemia Current Visit: No Status: Chronic Assessment and plan: Hb did drop to slightly to 8.3 from 9.0, but this is near her baseline VSS as she is non-tachycardic and normotensive Start on oral iron replacement therapy Qualifiers: Anemia type: unspecified type Qualified Code(s): D64.9 - Anemia, unspecified (3) Hyperkalemia Current Visit: No Status: Acute Assessment and plan: Potassium slightly increased to 4.3 to 3.6 despite dialysis yesterday Will continue to check BMP to monitor electrolytes (4) Urinary retention with incomplete bladder emptying Current Visit: Yes Status: Acute Assessment and plan: Urology consult, appreciate recommendations She has a Madden catheter currently, and will likely need chronic use upon discharge (5) UTI (urinary tract infection) Current Visit: No Status: Resolved Assessment and plan: Madden catheter did show purulent drainage Urine cultures have been negative and antibiotics discontinued No signs of systemic infection as she has not had fever, white count Qualifiers: Urinary tract infection type: acute cystitis Hematuria presence: without hematuria Qualified Code(s): N30.00 - Acute cystitis without hematuria (6) Acute gastroenteritis Current Visit: Yes Status: Resolved Assessment and plan: Patient did have diarrhea prior to admission but denies any since then GI panel pending, Flagyl was discontinued after 2 days (7) Diabetic ulcer of left foot Current Visit: Yes Status: Chronic Assessment and plan: Wound care consulted, appreciate management She has a history of noncompliance with wound care Qualifiers: Diabetic foot ulcer location: unspecified part of foot Qualified Code(s): E11.621 - Type 2 diabetes mellitus with foot ulcer; L97.529 - Non-pressure chronic ulcer of other part of left foot with unspecified severity; L97.529 - Non-pressure chronic ulcer of other part of left foot with unspecified severity ; L97.529 - Non-pressure chronic ulcer of other part of left foot with unspecified severity; L97.529 - Non-pressure chronic ulcer of other part of left foot with unspecified severity (8) Hyponatremia Current Visit: No Status: Acute Assessment and plan: Likely secondary to acute kidney injury Stable at 133 from 135 yesterday (9) IDDM (insulin dependent diabetes mellitus) Current Visit: No Status: Chronic Assessment and plan: Glucose accuchecks have improved since 10 units of Levemir added on top of low dose SSI ACHS (10) HTN (hypertension) Current Visit: No Status: Chronic Assessment and plan: Blood pressures have been stable today Continue home Lopressor Qualifiers: Hypertension type: essential hypertension Qualified Code(s): I10 - Essential (primary) hypertension (11) DVT prophylaxis Current Visit: No Status: Acute Assessment and plan: Heparin 5000 units twice a day - Subjective Interval history: Pt seen and examined. She has no issues this morning and states her breathing is fine and is not in any pain at the moment. Has no issues with fever, nausea, vomiting, diarrhea. - Constitutional Vitals: Temp Pulse Resp BP Pulse Ox 97.8 F 77 14 112/70 98 08/07/17 07:26 08/07/17 07:26 08/07/17 07:26 08/07/17 07:26 08/07/17 07:26 General appearance: Present: cooperative, pleasant, no acute distress, answers questions appropriately - Head Head exam: Present: atraumatic, normocephalic - Eye Eye exam: Present: PERRL, conjuntiva pink, sclera anicteric - Neck Neck exam general surgery: Present: supple, trachea midline. Absent: lymphadenopathy - Respiratory Respiratory exam: Present: CTAB. Absent: accessory muscle use, rales, rhonchi, wheezes - Cardiovascular Cardiovascular exam: Present: RRR, +S1, +S2. Absent: diastolic murmur, gallop, rubs, systolic murmur - GI/Abdominal GI/Abdominal exam: Present: normal bowel sounds, soft, no peritoneal signs. Absent: distended, tenderness - Extremities Exam Extremities exam: Present: pedal edema, warm, radial pulses palpable and symmetrical. Absent: calf tenderness, cyanotic - Neurological Exam Neurological exam: Present: alert, no focal deficits. Absent: facial droop, speech deficit - Skin Skin exam: Present: dry, intact Internal Medicine: Result - Labs CBC & Chem 7: 08/07/17 04:00 08/07/17 04:00 Labs: Short CBC 08/07/17 Range/Units 04:00 WBC 7.8 (4.3-11.1) K/mcL Hgb 8.3 L (11.5-15.4) g/dL Hct 26.0 L (35.3-44.9) % Plt Count 278 (140-400) K/mcL BMP 08/07/17 04:00 Sodium 133 L Potassium 4.3 Chloride 99 Carbon Dioxide 28 BUN 26 H Creatinine 2.61 H Glucose 137 H Calcium 8.1 L - ABG Interpretation ABG results: PT/INR, D-dimer PT 15.4 Seconds (9.4-12.1) H 08/05/17 20:39 - VTE Documentation of Mechanical Device: Intermittent pneumatic compression device Consult Discharge Plan - Plan Referrals: Macario Diallo MD [Primary Care Provider] - (web request 08/05/2017) <Ryder Thomas - Last Filed: 08/07/17 17:37> Date of Encounter: 08/07/17 - Assessment and plan (1) Acute renal failure Current Visit: Yes Status: Suspected Qualifiers: Acute renal failure type: with acute tubular necrosis Qualified Code(s): N17.0 - Acute kidney failure with tubular necrosis (2) UTI (urinary tract infection) Current Visit: No Status: Resolved Qualifiers: Urinary tract infection type: acute cystitis Hematuria presence: without hematuria Qualified Code(s): N30.00 - Acute cystitis without hematuria (3) Hydronephrosis Current Visit: No Status: Chronic Qualifiers: Hydronephrosis type: other Qualified Code(s): N13.39 - Other hydronephrosis (4) Hyperkalemia Current Visit: Yes Status: Resolved (5) Acute gastroenteritis Current Visit: Yes Status: Resolved (6) Severe dehydration Current Visit: Yes Status: Resolved (7) Urinary retention with incomplete bladder emptying Current Visit: Yes Status: Acute (8) HTN (hypertension) Current Visit: No Status: Chronic Qualifiers: Hypertension type: essential hypertension Qualified Code(s): I10 - Essential (primary) hypertension (9) Diabetes mellitus Current Visit: No Status: Chronic Qualifiers: Diabetes mellitus type: type 2 Diabetes mellitus complication status: with skin complications Diabetes mellitus complication detail: with foot ulcer Diabetes mellitus assisted insulin use: with supervisor intermediates use Qualified Code(s) : E11.621 - Type 2 diabetes mellitus with foot ulcer; L97.509 - Non-pressure chronic ulcer of other part of unspecified foot with unspecified severity; L97.509 - Non-pressure chronic ulcer of other part of unspecified foot with unspecified severity; L97.509 - Non-pressure chronic ulcer of other part of unspecified foot with unspecified severity; L97.509 - Non-pressure chronic ulcer of other part of unspecified foot with unspecified severity; Z79.4 - manager terminal (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; Z79.4 - alf (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; Z79.4 - alf (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; Z79.4 - alf (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 (10) Anemia in chronic renal disease Current Visit: No Status: Chronic Qualifiers: Chronic kidney disease stage: stage 4 (severe) Qualified Code(s): N18.4 - Chronic kidney disease, stage 4 (severe); D63.1 - Anemia in chronic kidney disease; D63.1 - Anemia in chronic kidney disease (11) HLD (hyperlipidemia) Current Visit: No Status: Chronic Qualifiers: Hyperlipidemia type: mixed hyperlipidemia Qualified Code(s): E78.2 - Mixed hyperlipidemia - Constitutional Vitals: Temp Pulse Resp BP Pulse Ox 97.8 F 77 14 112/70 98 08/07/17 07:26 08/07/17 07:26 08/07/17 07:26 08/07/17 07:26 08/07/17 09:19 Internal Medicine: Result - Labs CBC & Chem 7: 08/07/17 04:00 08/07/17 04:00 Labs: Short CBC 08/07/17 Range/Units 04:00 WBC 7.8 (4.3-11.1) K/mcL Hgb 8.3 L (11.5-15.4) g/dL Hct 26.0 L (35.3-44.9) % Plt Count 278 (140-400) K/mcL BMP 08/07/17 04:00 Sodium 133 L Potassium 4.3 Chloride 99 Carbon Dioxide 28 BUN 26 H Creatinine 2.61 H Glucose 137 H Calcium 8.1 L - ABG Interpretation ABG results: PT/INR, D-dimer PT 15.4 Seconds (9.4-12.1) H 08/05/17 20:39 - Attending Attestation I examined this patient and my medical decision-making was reviewed with the Resident Physician on 08/07/17. I agree with the documented findings, disposition and treatment plan as described except to the extent set forth below. Ms Lacy is currently admitted for renal failure and hyperkalemia. She remains moderate to high risk due to potential for worsening clinical status. Ms Lacy feels OK. She is wanting grape juice not apple juice. No fever or chills. Dialysis on hold at this time. Madden needs to stay in due to retention. Exam Alert. Comfortable Mucus membranes dry Heart not tachy No wheeze I/P 1. Renal failure 2. Hyperkalemia resolved Further diagnoses and plan as above.
[2017-08-07] MEDS: Aspirin Enteric Coated 81 MG Tablet PO SCH (09:11)
--- NOTE | 2017-08-07 16:15 | Nephrology Progress Note ---
<MalissaArnoldo Palencia - Last Filed: 08/07/17 16:13> Date of Encounter: 08/07/17 Time of Encounter: 16:13 - Assessment and Plan (1) MERNA (acute kidney injury) Current Visit: Yes Status: Acute MERNA on CKD IV. Likely combination of prerenal azotemia and post renal obstruction. MERNA continues to improve. Hyperkalemia and metabolic acidosis have resolved with HD. No indication for renal replacement therapy, we will hold today and evaluate for renal recovery tomorrow. Patient was also noted to be iron deficient anemic with a hemoglobin of 9.0. Recommend oral iron supplementation. Acute on chronic hyponatremia has also resolved at this time and her sodium has returned to her baseline at 135. Asymptomatic. As for hydronephrosis, we appreciate urologic input, patient may require Naylor catheter remain in place at discharge. Will defer further management to urology. We will continue to follow. (2) Chronic kidney disease, stage IV (severe) Current Visit: Yes Status: Acute (3) Hyponatremia Current Visit: No Status: Acute (4) Hyperkalemia Current Visit: No Status: Acute (5) Gastroenteritis Current Visit: No Status: Acute (6) Hydronephrosis Current Visit: No Status: Chronic Qualifiers: Hydronephrosis type: other Qualified Code(s): N13.39 - Other hydronephrosis (7) Anemia in chronic renal disease Current Visit: No Status: Chronic Qualifiers: Chronic kidney disease stage: stage 4 (severe) Qualified Code(s): N18.4 - Chronic kidney disease, stage 4 (severe); D63.1 - Anemia in chronic kidney disease; D63.1 - Anemia in chronic kidney disease (8) Metabolic acidosis Current Visit: No Status: Acute Subjective Principal diagnosis: ARF Interval history: Patient seen and examined in dialysis. She states she feels much better today. She reports much improved output and denies nausea and vomiting. She is eating well. She denies shortness of breath, chest pain, abdominal pain, lower extremity swelling. Objective - Vital Signs Vital signs: Vital Signs Temp Pulse Resp BP Pulse Ox 08/07/17 16:05 97.9 F 77 17 128/57 96 08/07/17 11:13 97.4 F L 72 14 117/69 96 08/07/17 09:19 98 08/07/17 07:26 97.8 F 77 14 112/70 98 08/07/17 04:36 98.2 F 77 19 110/68 98 08/06/17 23:49 98.4 F 71 16 123/58 96 08/06/17 19:48 98.1 F 77 16 128/82 97 08/06/17 16:27 97.9 F 81 17 115/85 98 Intake and Output 08/07/17 08/07/17 08/07/17 07:59 15:59 23:59 Intake Total 480 / 480 Output Total 350 / 350 Balance 130 / 130 Intake: Oral 480 / 480 Output: Urine 0 / 0 Catheter 350 / 350 Other: Meal Lunch Percent of Meal Consumed 85% Weight 57.3 kg Blood Glucose* 113 306 264 Patient Weight 08/07/17 23:59 Weight 57.3 kg - General Appearance General appearance: Present: well-developed, well-nourished, appears started age EENT: Present: ATNC, mucous membranes moist Neck: Present: supple Respiratory: Present: clear Cardiology: Present: no murmurs, no rub, no gallops, no edema Gastrointestinal: Present: normoactive bowel sounds, no tenderness, no guarding , no masses Integumentary: Present: no rash, warm and dry Neurologic: Present: no focal deficit, alert and oriented x3 Musculoskeletal: Present: no deformities, no erythema, no cyanosis - Lab 08/07/17 04:00 08/07/17 04:00 Most recent lab results Calcium 8.1 mg/dL (8.6-10.3) L 08/07/17 04:00 Phosphorus 5.9 mg/dL (2.7-4.5) H 08/05/17 00:50 Magnesium 1.7 mg/dL (1.6-2.6) 08/05/17 00:50 Urine Sodium 88.0 mEq/L 08/05/17 00:00 - VTE Documentation of Mechanical Device: Intermittent pneumatic compression device Consult Discharge Plan - Plan Referrals: Macario Diallo MD [Primary Care Provider] - (web request 08/05/2017) <Layla Dennis - Last Filed: 08/08/17 15:30> Date of Encounter: 08/07/17 Objective - Vital Signs Vital signs: Vital Signs Temp Pulse Resp BP Pulse Ox 08/08/17 11:42 98.1 F 75 14 136/68 97 08/08/17 07:09 97.9 F 71 16 137/75 98 08/08/17 05:28 98.0 F 70 17 136/74 98 08/08/17 01:34 99.2 F 74 16 142/71 97 08/07/17 20:05 98.0 F 77 16 128/68 97 08/07/17 16:05 97.9 F 77 17 128/57 96 Intake and Output 08/07/17 08/08/17 08/08/17 23:59 07:59 15:59 Intake Total 120 / 120 Output Total 700 / 700 550 / 550 750 / 750 Balance -700 / -700 -550 / -550 -630 / -630 Intake: Oral 120 / 120 Output: Catheter 700 / 700 550 / 550 750 / 750 Other: Meal Breakfast Percent of Meal Consumed 100% Weight 58.6 kg Blood Glucose* 257 233 431 Patient Weight 08/08/17 23:59 Weight 58.6 kg - Lab 08/08/17 03:12 08/08/17 03:12 Most recent lab results Calcium 8.2 mg/dL (8.6-10.3) L 08/08/17 03:12 Phosphorus 5.9 mg/dL (2.7-4.5) H 08/05/17 00:50 Magnesium 1.7 mg/dL (1.6-2.6) 08/05/17 00:50 Urine Sodium 88.0 mEq/L 08/05/17 00:00 - Attending Attestation I examined this patient and my medical decision-making was reviewed with the Resident Physician. I agree with the documented findings, disposition and treatment plan as described except to the extent set forth below. Pt seen and examined with interim noted. SCr continues to improve from 3.74, gFR 12 to 2.61, GFR 18 which is baseline withut HD, will monito closely off HD for now. UOp also very good at 1500cc with naylor in place , will monitor as well. hgb fairly stable at 8.3, will monitor. Lytes WNl except sodium at 133, will monitor. continue to avoid nephrotoxins if possible
[2017-08-07] MEDS: Insulin DETEMIR 100 UNIT/ML X5UNITS SQ SCH (22:07)
[2017-08-07 23:05] LABS: Alpha 2 Globulin (PEP) 1.07 g/dL (0.48-1.05); Beta Globulin (PEP) 1.01 g/dL (0.48-1.10)
[2017-08-08 04:14] LABS: Hematocrit 27.4 % (35.3-44.9); Hemoglobin 8.7 g/dL (11.5-15.4); Mean Corpuscular HGB Conc 31.8 g/dL (31.6-35.5); Mean Corpuscular Hemoglobin 26.5 pg (28.0-33.3); Mean Corpuscular Volume 83.5 fL (83.0-100.0); Platelet Count 275 K/mcL (140-400); Red Blood Count 3.28 M/mcL (3.82-4.97); Red Cell Distribution Width 14.4 % (11.5-14.5)
[2017-08-08 04:59] LABS: Calcium 8.2 mg/dL (8.6-10.3); Potassium 4.4 mEq/L (3.5-5.1)
[2017-08-08] MEDS: *HR* Heparin 5,000 UNIT/ML VIAL SQ SCH ×2 (05:12→18:14)
--- NOTE | 2017-08-08 08:51 | Urology Progress Note ---
Date of Encounter: 08/08/17 Time of Encounter: 08:50 - Assessment and Plan (1) Urinary retention with incomplete bladder emptying Current Visit: Yes Status: Acute Assessment and plan: urine remains cloudy, but draining well. patient should keep catheter in place. can f/u with me in 2-3 weeks. call with any questions. (2) UTI (urinary tract infection) Current Visit: No Status: Resolved Qualifiers: Urinary tract infection type: acute cystitis Hematuria presence: without hematuria Qualified Code(s): N30.00 - Acute cystitis without hematuria Progress Note Narrative: patient seen. feeling great. serum creatinine stable but slightly higher Objective Initial Vital Signs Temp Pulse Resp BP Pulse Ox 96.0 F L 104 18 177/100 99 08/04/17 12:45 08/04/17 12:45 08/04/17 12:45 08/04/17 12:45 08/04/17 12:45 - General physical appearance Present: well developed, well nourished - Abdomen Present: soft. Absent: masses - Genitourinary Urine Appearance: Present: Cloudy - Labs 08/08/17 03:12 08/08/17 03:12 Diabetes panel 08/08/17 Range/Units 03:12 Sodium 129 L (136-145) mEq/L Potassium 4.4 (3.5-5.1) mEq/L Chloride 98 (98-107) mEq/L Carbon Dioxide 24 (23-29) mEq/L BUN 31 H (8-23) mg/dL Creatinine 2.74 H (0.60-1.20) mg/dL Glucose 256 H (70-105) mg/dL Calcium 8.2 L (8.6-10.3) mg/dL Calcium panel 08/08/17 Range/Units 03:12 Calcium 8.2 L (8.6-10.3) mg/dL Pituitary panel 08/08/17 Range/Units 03:12 Sodium 129 L (136-145) mEq/L Potassium 4.4 (3.5-5.1) mEq/L Chloride 98 (98-107) mEq/L Carbon Dioxide 24 (23-29) mEq/L BUN 31 H (8-23) mg/dL Creatinine 2.74 H (0.60-1.20) mg/dL Glucose 256 H (70-105) mg/dL Calcium 8.2 L (8.6-10.3) mg/dL Adrenal panel 08/08/17 Range/Units 03:12 Sodium 129 L (136-145) mEq/L Potassium 4.4 (3.5-5.1) mEq/L Chloride 98 (98-107) mEq/L Carbon Dioxide 24 (23-29) mEq/L BUN 31 H (8-23) mg/dL Creatinine 2.74 H (0.60-1.20) mg/dL Glucose 256 H (70-105) mg/dL Calcium 8.2 L (8.6-10.3) mg/dL - VTE Documentation of Mechanical Device: Intermittent pneumatic compression device Consult Discharge Plan - Plan Referrals: Macario Diallo MD [Primary Care Provider] - (web request 08/05/2017)
--- NOTE | 2017-08-08 09:30 | Internal Med Progress Note ---
<Jony Ricketts - Last Filed: 08/08/17 10:39> Date of Encounter: 08/08/17 Time of Encounter: 09:30 - Assessment and plan (1) Acute worsening of stage 4 chronic kidney disease Current Visit: Yes Status: Acute Assessment and plan: Possibly postrenal in setting of chronic urinary retention and stable bilateral hydronephrosis Cr stable after 2 dialysis sessions Defer to nephrology to see if she needs long-term dialysis She has been evaluated in the past by urology but has been noncompliant with catheter use Appreciate both nephrology and urology consult Continue to monitor creatinine and electrolytes, avoid nephrotoxic agents (2) Anemia Current Visit: No Status: Chronic Assessment and plan: Hb stable at 8.7 from 8.3, which is near her baseline VSS as she is non-tachycardic and normotensive Start on oral iron replacement therapy Qualifiers: Anemia type: unspecified type Qualified Code(s): D64.9 - Anemia, unspecified (3) Hyperkalemia Current Visit: No Status: Acute Assessment and plan: Potassium stable at 4.4 from 4.3 yesterday after dialysis Will continue to check BMP to monitor electrolytes (4) Urinary retention with incomplete bladder emptying Current Visit: Yes Status: Acute Assessment and plan: Urology consult, appreciate recommendations She has a Naylor catheter currently, and will likely need chronic use upon discharge (5) Acute gastroenteritis Current Visit: Yes Status: Resolved Assessment and plan: Patient did have diarrhea prior to admission but denies any since then GI panel pending, Flagyl was discontinued after 2 days (6) Diabetic ulcer of left foot Current Visit: Yes Status: Chronic Assessment and plan: Wound care consulted, appreciate management She has a history of noncompliance with wound care Qualifiers: Diabetic foot ulcer location: unspecified part of foot Qualified Code(s): E11.621 - Type 2 diabetes mellitus with foot ulcer; L97.529 - Non-pressure chronic ulcer of other part of left foot with unspecified severity; L97.529 - Non-pressure chronic ulcer of other part of left foot with unspecified severity ; L97.529 - Non-pressure chronic ulcer of other part of left foot with unspecified severity; L97.529 - Non-pressure chronic ulcer of other part of left foot with unspecified severity (7) Hyponatremia Current Visit: No Status: Acute Assessment and plan: Likely secondary to acute kidney injury Sodium did decrease to 129 from 133 yesterday, will continue to monitor (8) IDDM (insulin dependent diabetes mellitus) Current Visit: No Status: Chronic Assessment and plan: Continue 10 units of Levemir added on top of low dose SSI ACHS (9) HTN (hypertension) Current Visit: No Status: Chronic Assessment and plan: Blood pressures have been stable today Continue home Lopressor Qualifiers: Hypertension type: essential hypertension Qualified Code(s): I10 - Essential (primary) hypertension (10) DVT prophylaxis Current Visit: No Status: Acute Assessment and plan: Heparin 5000 units twice a day - Subjective Interval history: Pt seen and examined. She continues to do well this morning and has no complaints of breathing, chest pain, nausea, vomiting, diarrhea. - Constitutional Vitals: Temp Pulse Resp BP Pulse Ox 97.9 F 71 16 137/75 98 08/08/17 07:09 08/08/17 07:09 08/08/17 07:09 08/08/17 07:09 08/08/17 07:09 General appearance: Present: cooperative, pleasant, no acute distress, answers questions appropriately - Head Head exam: Present: atraumatic, normocephalic - Eye Eye exam: Present: PERRL, conjuntiva pink, sclera anicteric - Neck Neck exam general surgery: Present: supple, trachea midline. Absent: lymphadenopathy - Respiratory Respiratory exam: Present: CTAB. Absent: accessory muscle use, rales, rhonchi, wheezes - Cardiovascular Cardiovascular exam: Present: RRR, +S1, +S2. Absent: diastolic murmur, gallop, rubs, systolic murmur - GI/Abdominal GI/Abdominal exam: Present: normal bowel sounds, soft, no peritoneal signs. Absent: distended, tenderness - Extremities Exam Extremities exam: Present: warm, radial pulses palpable and symmetrical. Absent : calf tenderness, cyanotic, pedal edema - Neurological Exam Neurological exam: Present: alert, no focal deficits. Absent: facial droop, speech deficit - Skin Skin exam: Present: dry, intact Internal Medicine: Result - Labs CBC & Chem 7: 08/08/17 03:12 08/08/17 03:12 Labs: Short CBC 08/08/17 Range/Units 03:12 WBC 7.0 (4.3-11.1) K/mcL Hgb 8.7 L (11.5-15.4) g/dL Hct 27.4 L (35.3-44.9) % Plt Count 275 (140-400) K/mcL BMP 08/08/17 03:12 Sodium 129 L Potassium 4.4 Chloride 98 Carbon Dioxide 24 BUN 31 H Creatinine 2.74 H Glucose 256 H Calcium 8.2 L - ABG Interpretation ABG results: PT/INR, D-dimer PT 15.4 Seconds (9.4-12.1) H 08/05/17 20:39 - Impressions Impressions KUB X-Ray 08/05/17 09:57 IMPRESSION: Interval placement of a right femoral central venous catheter with the tip projecting over the mid IVC. D/ : / 08/05/2017 10:48:21 Laura Max MD / anup Interpreting Provider: Laura Max MD - VTE Documentation of Mechanical Device: Intermittent pneumatic compression device Consult Discharge Plan - Plan Referrals: Macario Diallo MD [Primary Care Provider] - (web request 08/05/2017) <Ryder Thomas - Last Filed: 08/08/17 15:24> Date of Encounter: 08/08/17 - Assessment and plan (1) Acute renal failure Current Visit: Yes Status: Suspected Qualifiers: Acute renal failure type: with acute tubular necrosis Qualified Code(s): N17.0 - Acute kidney failure with tubular necrosis (2) Hydronephrosis Current Visit: No Status: Chronic Qualifiers: Hydronephrosis type: other Qualified Code(s): N13.39 - Other hydronephrosis (3) Hyperkalemia Current Visit: Yes Status: Resolved (4) Acute gastroenteritis Current Visit: Yes Status: Resolved (5) Severe dehydration Current Visit: Yes Status: Resolved (6) Urinary retention with incomplete bladder emptying Current Visit: Yes Status: Acute (7) HTN (hypertension) Current Visit: No Status: Chronic Qualifiers: Hypertension type: essential hypertension Qualified Code(s): I10 - Essential (primary) hypertension (8) Diabetes mellitus Current Visit: No Status: Chronic Qualifiers: Diabetes mellitus type: type 2 Diabetes mellitus complication status: with skin complications Diabetes mellitus complication detail: with foot ulcer 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 insulin use: with predatory animal exterminator use Qualified Code(s) : E11.621 - Type 2 diabetes mellitus with foot ulcer; L97.509 - Non-pressure chronic ulcer of other part of unspecified foot with unspecified severity; L97.509 - Non-pressure chronic ulcer of other part of unspecified foot with unspecified severity; L97.509 - Non-pressure chronic ulcer of other part of unspecified foot with unspecified severity; L97.509 - Non-pressure chronic ulcer of other part of unspecified foot with unspecified severity; Z79.4 - snf (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; 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 - superintendent container terminal (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; Z79.4 - superintendent container terminal (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; Z79.4 - snf (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 (9) Anemia in chronic renal disease Current Visit: No Status: Chronic Qualifiers: Chronic kidney disease stage: stage 4 (severe) Qualified Code(s): N18.4 - Chronic kidney disease, stage 4 (severe); D63.1 - Anemia in chronic kidney disease; D63.1 - Anemia in chronic kidney disease (10) HLD (hyperlipidemia) Current Visit: No Status: Chronic Qualifiers: Hyperlipidemia type: mixed hyperlipidemia Qualified Code(s): E78.2 - Mixed hyperlipidemia - Constitutional Vitals: Temp Pulse Resp BP Pulse Ox 98.1 F 75 14 136/68 97 08/08/17 11:42 08/08/17 11:42 08/08/17 11:42 08/08/17 11:42 08/08/17 11:42 Internal Medicine: Result - Labs CBC & Chem 7: 08/08/17 03:12 08/08/17 03:12 Labs: Short CBC 08/08/17 Range/Units 03:12 WBC 7.0 (4.3-11.1) K/mcL Hgb 8.7 L (11.5-15.4) g/dL Hct 27.4 L (35.3-44.9) % Plt Count 275 (140-400) K/mcL BMP 08/08/17 03:12 Sodium 129 L Potassium 4.4 Chloride 98 Carbon Dioxide 24 BUN 31 H Creatinine 2.74 H Glucose 256 H Calcium 8.2 L - ABG Interpretation ABG results: PT/INR, D-dimer PT 15.4 Seconds (9.4-12.1) H 08/05/17 20:39 - Impressions Impressions KUB X-Ray 08/05/17 09:57 IMPRESSION: Interval placement of a right femoral central venous catheter with the tip projecting over the mid IVC. D/ / 08/05/2017 10:48:21 Laura Max MD / anup Interpreting Provider: Laura Max MD - Attending Attestation I examined this patient and my medical decision-making was reviewed with the Resident Physician on 08/08/17. I agree with the documented findings, disposition and treatment plan as described except to the extent set forth below. Ms Lacy is currently admitted for acute renal failure. Her renal function is being monitored in regards to more dialysis. She remains moderate to high risk due to potential for worsening clinical status. Ms Lacy is resting comfortably. No acute issues overnight. No fever or chills. No GI issues at this time. Exam alert. Comfortable Mucus membranes dry Heart not tachy Lungs no wheeze I/P 1. Acute renal failure per nephro 2. Urinary retention - maintain naylor Further diagnoses and plan as above.
[2017-08-08 10:15] LABS: IFE Reflexed IFE Done; Immunoglobulin A 405 mg/dL (68-408); Immunoglobulin G 3660 mg/dL (768-1632); Immunoglobulin M 83 mg/dL (35-263)
[2017-08-08] MEDS: Aspirin Enteric Coated 81 MG Tablet PO SCH (11:19)
[2017-08-08] MEDS: Insulin LISPRO 300 UNITS/3 ML VIAL SQ SCH ×4 (11:20→20:26)
--- NOTE | 2017-08-08 15:33 | Nephrology Progress Note ---
Date of Encounter: 08/08/17 Time of Encounter: 12:00 - Assessment and Plan (1) MERNA (acute kidney injury) Current Visit: Yes Status: Acute SCr slightly worse today at 2.74, GFR 17 but still at baseline, will monitor off HD Continue to avoid nephrotoxins if possible UOp remains good at 1050cc in the past 24hrs, which is great continue naylor per urology (2) Chronic kidney disease, stage IV (severe) Current Visit: Yes Status: Acute Baseline GFR around teens (3) Urinary retention with incomplete bladder emptying Current Visit: Yes Status: Acute Continu naylor per urology (4) Hyponatremia Current Visit: No Status: Acute Sodium slightly low at 129 likely due to more po fluid intake to sodium. Will add sodium to diet Subjective Principal diagnosis: ARF Interval history: Pt seen and examined today feeling better overall with great appetite and drinking lots of po fluids. Good UOP noted from naylor Objective - Vital Signs Vital signs: Vital Signs Temp Pulse Resp BP Pulse Ox 08/08/17 11:42 98.1 F 75 14 136/68 97 08/08/17 07:09 97.9 F 71 16 137/75 98 08/08/17 05:28 98.0 F 70 17 136/74 98 08/08/17 01:34 99.2 F 74 16 142/71 97 08/07/17 20:05 98.0 F 77 16 128/68 97 08/07/17 16:05 97.9 F 77 17 128/57 96 Intake and Output 08/07/17 08/08/17 08/08/17 23:59 07:59 15:59 Intake Total 120 / 120 Output Total 700 / 700 550 / 550 750 / 750 Balance -700 / -700 -550 / -550 -630 / -630 Intake: Oral 120 / 120 Output: Catheter 700 / 700 550 / 550 750 / 750 Other: Meal Breakfast Percent of Meal Consumed 100% Weight 58.6 kg Blood Glucose* 257 233 431 Patient Weight 08/08/17 23:59 Weight 58.6 kg - General Appearance General appearance: Present: chronically ill (NAD) EENT: Present: ATNC, mucous membranes moist Neck: Present: no JVD, supple Respiratory: Present: clear Cardiology: Present: no edema, normal S1, normal S2 Dialysis Vascular Access: Venous Catheter (temp) Gastrointestinal: Present: no tenderness, no guarding Integumentary: Present: warm and dry Neurologic: Present: no focal deficit Musculoskeletal: Present: no deformities Psychiatric: Present: mood/affect appropriate, cooperative - Lab 08/08/17 03:12 08/08/17 03:12 Most recent lab results Calcium 8.2 mg/dL (8.6-10.3) L 08/08/17 03:12 Phosphorus 5.9 mg/dL (2.7-4.5) H 08/05/17 00:50 Magnesium 1.7 mg/dL (1.6-2.6) 08/05/17 00:50 Urine Sodium 88.0 mEq/L 08/05/17 00:00 - VTE Documentation of Mechanical Device: Intermittent pneumatic compression device Consult Discharge Plan - Plan Referrals: Macario Diallo MD [Primary Care Provider] - (web request 08/05/2017)
[2017-08-08] MEDS: Insulin DETEMIR 100 UNIT/ML X5UNITS SQ SCH (20:26)
[2017-08-09] MEDS: *HR* Heparin 5,000 UNIT/ML VIAL SQ SCH ×2 (06:23→16:59)
--- NOTE | 2017-08-09 08:58 | Internal Med Progress Note ---
<Jony Ricketts - Last Filed: 08/09/17 12:34> Date of Encounter: 08/09/17 Time of Encounter: 08:56 - Assessment and plan (1) Acute worsening of stage 4 chronic kidney disease Current Visit: Yes Status: Acute Assessment and plan: Possibly postrenal in setting of chronic urinary retention and stable bilateral hydronephrosis Awaiting today's creatinine, she has been stable yesterday since being off dialysis Defer to nephrology to see if she needs long-term dialysis She has been evaluated in the past by urology but has been noncompliant with catheter use Appreciate both nephrology and urology consult Continue to monitor creatinine and electrolytes, avoid nephrotoxic agents (2) Anemia Current Visit: No Status: Chronic Assessment and plan: Awaiting hemoglobin from this morning VSS as she is non-tachycardic and normotensive Continue with oral iron replacement therapy Qualifiers: Anemia type: unspecified type Qualified Code(s): D64.9 - Anemia, unspecified (3) Hyperkalemia Current Visit: No Status: Acute Assessment and plan: Potassium stable yesterday after dialysis, awaiting today's BMP Will continue to check BMP to monitor electrolytes (4) Urinary retention with incomplete bladder emptying Current Visit: Yes Status: Acute Assessment and plan: Urology consult, appreciate recommendations She has a Madden catheter currently, and will likely need chronic use upon discharge (5) Acute gastroenteritis Current Visit: Yes Status: Resolved Assessment and plan: Patient did have diarrhea prior to admission but denies any since then Flagyl was discontinued after 2 days as there is no more symptoms of diarrhea (6) Diabetic ulcer of left foot Current Visit: Yes Status: Chronic Assessment and plan: Wound care consulted, appreciate management She has a history of noncompliance with wound care Qualifiers: Diabetic foot ulcer location: unspecified part of foot Qualified Code(s): E11.621 - Type 2 diabetes mellitus with foot ulcer; L97.529 - Non-pressure chronic ulcer of other part of left foot with unspecified severity; L97.529 - Non-pressure chronic ulcer of other part of left foot with unspecified severity ; L97.529 - Non-pressure chronic ulcer of other part of left foot with unspecified severity; L97.529 - Non-pressure chronic ulcer of other part of left foot with unspecified severity (7) Hyponatremia Current Visit: No Status: Acute Assessment and plan: Likely secondary to acute kidney injury Continue to monitor BMP (8) IDDM (insulin dependent diabetes mellitus) Current Visit: No Status: Chronic Assessment and plan: Continue 10 units of Levemir will increase to medium siding scale insulin ACHS (9) HTN (hypertension) Current Visit: No Status: Chronic Assessment and plan: Blood pressures have been stable today Continue home Lopressor Qualifiers: Hypertension type: essential hypertension Qualified Code(s): I10 - Essential (primary) hypertension (10) DVT prophylaxis Current Visit: No Status: Acute Assessment and plan: Heparin 5000 units twice a day - Subjective Interval history: Pt seen and examined. She stated she had some nausea with vomiting last night after eating vegetables with dressing but states this has since resolved and has no issues with her breakfast. She denies any pain or breathing issues and does not have any diarrhea, constipation, fevers, or chills. - Constitutional Vitals: Temp Pulse Resp BP Pulse Ox 98.1 F 77 16 112/72 98 08/09/17 08:02 08/09/17 08:02 08/09/17 08:02 08/09/17 08:02 08/09/17 08:02 General appearance: Present: cooperative, pleasant, no acute distress, answers questions appropriately - Head Head exam: Present: atraumatic, normocephalic - Eye Eye exam: Present: PERRL, conjuntiva pink, sclera anicteric - Neck Neck exam general surgery: Present: supple, trachea midline. Absent: lymphadenopathy - Respiratory Respiratory exam: Present: CTAB. Absent: accessory muscle use, rales, rhonchi, wheezes - Cardiovascular Cardiovascular exam: Present: RRR, +S1, +S2. Absent: diastolic murmur, gallop, rubs, systolic murmur - GI/Abdominal GI/Abdominal exam: Present: normal bowel sounds, soft, no peritoneal signs. Absent: distended, tenderness - Extremities Exam Extremities exam: Present: warm, radial pulses palpable and symmetrical. Absent : calf tenderness, cyanotic, pedal edema - Neurological Exam Neurological exam: Present: alert, no focal deficits. Absent: facial droop, speech deficit - Skin Skin exam: Present: dry, intact Internal Medicine: Result - Labs CBC & Chem 7: 08/08/17 03:12 08/08/17 03:12 - ABG Interpretation ABG results: PT/INR, D-dimer PT 15.4 Seconds (9.4-12.1) H 08/05/17 20:39 - VTE Documentation of Mechanical Device: Intermittent pneumatic compression device Consult Discharge Plan - Plan Referrals: Macario Diallo MD [Primary Care Provider] - (web request 08/05/2017) <Ryder Thomas Curt - Last Filed: 08/09/17 14:29> Date of Encounter: 08/09/17 - Assessment and plan (1) Acute renal failure Current Visit: Yes Status: Suspected Qualifiers: Acute renal failure type: with acute tubular necrosis Qualified Code(s): N17.0 - Acute kidney failure with tubular necrosis (2) Hydronephrosis Current Visit: No Status: Chronic Qualifiers: Hydronephrosis type: other Qualified Code(s): N13.39 - Other hydronephrosis (3) Hyperkalemia Current Visit: Yes Status: Resolved (4) Acute gastroenteritis Current Visit: Yes Status: Resolved (5) Severe dehydration Current Visit: Yes Status: Resolved (6) Urinary retention with incomplete bladder emptying Current Visit: Yes Status: Chronic (7) HTN (hypertension) Current Visit: No Status: Chronic Qualifiers: Hypertension type: essential hypertension Qualified Code(s): I10 - Essential (primary) hypertension (8) Diabetes mellitus Current Visit: No Status: Chronic Qualifiers: Diabetes mellitus type: type 2 Diabetes mellitus complication status: with skin complications Diabetes mellitus complication detail: with foot ulcer 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: with intermediate use Qualified Code(s) : E11.621 - Type 2 diabetes mellitus with foot ulcer; L97.509 - Non-pressure chronic ulcer of other part of unspecified foot with unspecified severity; L97.509 - Non-pressure chronic ulcer of other part of unspecified foot with unspecified severity; L97.509 - Non-pressure chronic ulcer of other part of unspecified foot with unspecified severity; L97.509 - Non-pressure chronic ulcer of other part of unspecified foot with unspecified severity; Z79.4 - long-term (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; Z79.4 - 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; Z79.4 - 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; Z79.4 - 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 (9) Anemia in chronic renal disease Current Visit: No Status: Chronic Qualifiers: Chronic kidney disease stage: stage 4 (severe) Qualified Code(s): N18.4 - Chronic kidney disease, stage 4 (severe); D63.1 - Anemia in chronic kidney disease; D63.1 - Anemia in chronic kidney disease (10) HLD (hyperlipidemia) Current Visit: No Status: Chronic Qualifiers: Hyperlipidemia type: mixed hyperlipidemia Qualified Code(s): E78.2 - Mixed hyperlipidemia - Constitutional Vitals: Temp Pulse Resp BP Pulse Ox 98.4 F 76 16 134/52 97 08/09/17 11:52 08/09/17 11:52 08/09/17 11:52 08/09/17 11:52 08/09/17 11:52 Internal Medicine: Result - Labs CBC & Chem 7: 08/08/17 03:12 08/08/17 03:12 - ABG Interpretation ABG results: PT/INR, D-dimer PT 15.4 Seconds (9.4-12.1) H 08/05/17 20:39 - Attending Attestation I examined this patient and my medical decision-making was reviewed with the Resident Physician on 08/09/17. I agree with the documented findings, disposition and treatment plan as described except to the extent set forth below. Ms Lacy is currently admitted for worsening renal failure. She has had short course of dialysis. She remains moderate to high risk due to potential for worsening clinical status. Ms Lacy had some nausea and vomiting today. No fever or chills. Slept OK. Exam Alert. Comfortable Mucus membranes dry Heart reg No wheeze now I/P 1. Renal failure 2. Urinary retention Further diagnoses and plan as above.
[2017-08-09] MEDS: Aspirin Enteric Coated 81 MG Tablet PO SCH (11:05)
[2017-08-09] MEDS: Insulin LISPRO 300 UNITS/3 ML VIAL SQ SCH ×5 (11:05→17:00)
[2017-08-09] MEDS ORDERED: Insulin LISPRO 300 UNITS/3 ML VIAL SQ SCH (12:39)
--- NOTE | 2017-08-09 14:07 | Nephrology Progress Note ---
Date of Encounter: 08/09/17 Time of Encounter: 13:00 - Assessment and Plan (1) MERNA (acute kidney injury) Current Visit: Yes Status: Acute SCr slightly worse as of yesterday at 2.74, GFR 17 but still at baseline, no new labs to reassess but will continue off HD Continue to avoid nephrotoxins if possible UOp remains good at 1750cc in the past 24hrs, which is great continue nyalor per urology (2) Chronic kidney disease, stage IV (severe) Current Visit: Yes Status: Acute Baseline GFR around teens (3) Urinary retention with incomplete bladder emptying Current Visit: Yes Status: Acute Continu naylor per urology (4) Hyponatremia Current Visit: No Status: Acute Sodium slightly low at 129 likely due to more po fluid intake to sodium as of yesterday. Will add sodium to diet Subjective Principal diagnosis: ARF Interval history: Pt seen and examined today reports episode of nausea and vomiting after eating some soup overnight. Still recovering today. refused labs this am Objective - Vital Signs Vital signs: Vital Signs Temp Pulse Resp BP Pulse Ox 08/09/17 11:52 98.4 F 76 16 134/52 97 08/09/17 08:02 98.1 F 77 16 112/72 98 08/09/17 05:59 98.1 F 69 16 119/70 98 08/09/17 00:44 98.3 F 71 16 100/53 97 08/08/17 19:56 98.3 F 84 17 136/74 97 08/08/17 15:33 98.4 F 78 17 129/64 99 Intake and Output 08/08/17 08/09/17 08/09/17 23:59 07:59 15:59 Intake Total 120 / 120 Output Total 450 / 450 600 / 600 Balance -450 / -450 -600 / -600 120 / 120 Intake: Oral 120 / 120 Output: Catheter 450 / 450 600 / 600 Other: Meal Breakfast Percent of Meal Consumed 100% Weight 58.6 kg Blood Glucose* 380 367 Patient Weight 08/09/17 23:59 Weight 58.6 kg - General Appearance General appearance: Present: chronically ill EENT: Present: ATNC, mucous membranes dry Neck: Present: no JVD, supple Respiratory: Present: clear (ant) Cardiology: Present: no edema, normal S1, normal S2 Dialysis Vascular Access: Venous Catheter (temp) Gastrointestinal: Present: no tenderness, no guarding Integumentary: Present: warm and dry Neurologic: Present: no focal deficit Musculoskeletal: Present: no deformities Psychiatric: Present: mood/affect appropriate, cooperative - Lab 08/08/17 03:12 08/08/17 03:12 Most recent lab results Calcium 8.2 mg/dL (8.6-10.3) L 08/08/17 03:12 Phosphorus 5.9 mg/dL (2.7-4.5) H 08/05/17 00:50 Magnesium 1.7 mg/dL (1.6-2.6) 08/05/17 00:50 Urine Sodium 88.0 mEq/L 08/05/17 00:00 - VTE Documentation of Mechanical Device: Intermittent pneumatic compression device Consult Discharge Plan - Plan Referrals: Macario Diallo MD [Primary Care Provider] - (web request 08/05/2017)
[2017-08-09] MEDS: Insulin DETEMIR 100 UNIT/ML X5UNITS SQ SCH (22:10)
[2017-08-10 05:10] LABS: Hematocrit 29.6 % (35.3-44.9); Hemoglobin 9.5 g/dL (11.5-15.4); Mean Corpuscular HGB Conc 32.1 g/dL (31.6-35.5); Mean Corpuscular Hemoglobin 26.3 pg (28.0-33.3); Mean Platelet Volume 9.2 fL (9.4-12.4); Platelet Count 291 K/mcL (140-400); Red Blood Count 3.61 M/mcL (3.82-4.97); Red Cell Distribution Width 14.1 % (11.5-14.5)
[2017-08-10 05:19] LABS: Calcium 8.8 mg/dL (8.6-10.3); Potassium 4.3 mEq/L (3.5-5.1)
[2017-08-10] MEDS: *HR* Heparin 5,000 UNIT/ML VIAL SQ SCH ×2 (05:47→17:49)
[2017-08-10] MEDS: Insulin LISPRO 300 UNITS/3 ML VIAL SQ SCH ×3 (08:31→17:48)
[2017-08-10] MEDS: Aspirin Enteric Coated 81 MG Tablet PO SCH (08:31)
--- NOTE | 2017-08-10 08:56 | Discharge Summary ---
<Jony Ricketts - Last Filed: 08/10/17 15:02> Date of Encounter: 08/10/17 Time of Encounter: 08:54 - Discharge Diagnosis (1) Acute worsening of stage 4 chronic kidney disease Priority: Primary Status: Acute (2) Anemia Priority: Secondary Status: Chronic Qualifiers: Anemia type: unspecified type Qualified Code(s): D64.9 - Anemia, unspecified (3) Hyperkalemia Priority: Secondary Status: Acute (4) Urinary retention with incomplete bladder emptying Priority: Secondary Status: Chronic (5) Acute gastroenteritis Priority: Secondary Status: Resolved (6) Diabetic ulcer of left foot Priority: Secondary Status: Chronic Qualifiers: Diabetic foot ulcer location: unspecified part of foot Qualified Code(s): E11.621 - Type 2 diabetes mellitus with foot ulcer; L97.529 - Non-pressure chronic ulcer of other part of left foot with unspecified severity; L97.529 - Non-pressure chronic ulcer of other part of left foot with unspecified severity ; L97.529 - Non-pressure chronic ulcer of other part of left foot with unspecified severity; L97.529 - Non-pressure chronic ulcer of other part of left foot with unspecified severity (7) Hyponatremia Priority: Secondary Status: Acute (8) IDDM (insulin dependent diabetes mellitus) Priority: Secondary Status: Chronic (9) HTN (hypertension) Priority: Secondary Status: Chronic Qualifiers: Hypertension type: essential hypertension Qualified Code(s): I10 - Essential (primary) hypertension (10) DVT prophylaxis Priority: Secondary Status: Acute - Discharge Medications Prescriptions: Ferrous Sulfate 325 mg PO BIDWM #30 tablet Sodium Chloride 1 gm PO BID #30 tablet Home Medications: Metoprolol [Lopressor] 12.5 mg PO BID 03/01/16 [History] Pravastatin Sodium 10 mg PO HS 03/01/16 [History] Insulin Glargine,Hum.rec.anlog [Lantus Solostar] 30 units SQ HS 07/10/17 [ History] Aspirin Enteric Coated [Aspirin EC] 81 mg PO DAILY 08/04/17 [History] Oxygen 1 each .ROUTE AD 08/04/17 [History] Ferrous Sulfate 325 mg PO BIDWM #30 tablet 08/10/17 [Rx] Sodium Chloride 1 gm PO BID #30 tablet 08/10/17 [Rx] Allergies/Adverse Reactions: 3 Allergy/AdvReac Type Severity Reaction Status Date / Time acetaminophen [From Tylenol] Allergy See Verified 07/10/17 16:41 Comments Influenza Virus Vaccines Allergy See Verified 07/10/17 16:41 Comments Date of admission: 08/05/17 07:37 Primary care physician: Macario Diallo MD Consults: 08/05/17 08:29 Consult to Urology [CONS] Routine Consulting Provider: [facility] Reason for Consult: renal failure, chronic bilateral hydronephrosis Time Notified: 08:29 Call Completed: Yes 08/05/17 08:38 Consult to Interventional Radiology [CONS] Routine Consulting Provider: Radiology Interventional Cols Reason for Consult: placement of temp dialysis catheter Call Completed: No 08/05/17 08:45 Consult to Dialysis [CONS] ONCE 08/06/17 08:15 Consult to Dialysis [CONS] ONCE Discharging clinician: Jony Ricketts Anticipated date of discharge: 08/10/17 - Patient Status Disposition: Home, Self-Care Condition: Fair Functional capacity at discharge: uses cane/walker Overall status at discharge: patient is progressing back to baseline - Ambulatory Orders Ambulatory Orders: Basic Metabolic Panel [CHEM] Time Frame: 1 Week, Facility: [facility], Location: Lab - Discharge Instructions Follow Up With: [facility] [Provider Group] - 08/17/17 9:30 am () [facility] [Provider Group] - 08/31/17 9:30 am Macario Diallo MD [Primary Care Provider] - 08/17/17 10:15 am () Additional Instructions: Please follow up with your PCP, urology, and nephrology within 1 week of discharge - Diet and Activity Activity: as per physical therapy Diet: advance to your usual diet Hospital course: Ms. Lacy is a 72 year old female who presented with nausea, vomiting, diarrhea for several days. She does have history of CKD IV and presented with Cr of 7 where he baseline is around 2-3. Her potassium was also markedly elevated at 7.9. Nephrology was consulted and placed a temp dialysis catheter for urgent dialysis. She did also have a retroperitoneal ultrasound which revealed moderate bilateral hydronephrosis, but this was found previously as well. Her MERNA was thought to be multifactorial in setting of dehydration causing pre- renal and obstruction from her history of incomplete bladder emptying causing post-renal. She has a significant history of non-compliance with her wound care for her diabetic foot ulcer and also not following up with urology who had previously recommended petroleum terminal plant operator naylor. Urology was consulted again here and recommended to have her on Naylor upon discharge and follow up closely. Her Creatinine did improve after 2 days of dialysis and her creatinine did improve to her baseline over the weekend while off dialysis the entire time, and nephrology did not believe she needed skilled nursing dialysis. She was evaluated by PT/OT and was deemed okay to go home as she does live at home with her children who give her some support. Per nephro she will be going home with sodium tablets and will be getting a BMP within a week prior to her next appt. - Time Spent with Patient Total time spent providing and/or coordinating discharge services: Greater than 30 minutes - Constitutional Vitals: Temp Pulse Resp BP Pulse Ox 99.3 F 72 16 114/59 96 08/10/17 07:27 08/10/17 07:27 08/10/17 07:27 08/10/17 07:27 08/10/17 07:27 General appearance: Present: cooperative, pleasant, no acute distress, answers questions appropriately - Head Head exam: Present: atraumatic, normocephalic - Eye Eye exam: Present: PERRL, conjuntiva pink, sclera anicteric - Neck Neck exam general surgery: Present: supple, trachea midline. Absent: lymphadenopathy - Respiratory Respiratory exam: Present: CTAB. Absent: accessory muscle use, rales, rhonchi, wheezes - Cardiovascular Cardiovascular exam: Present: RRR, +S1, +S2. Absent: diastolic murmur, gallop, rubs, systolic murmur - GI/Abdominal GI/Abdominal exam: Present: normal bowel sounds, soft, no peritoneal signs. Absent: distended, tenderness - Extremities Exam Extremities exam: Present: warm, radial pulses palpable and symmetrical. Absent : calf tenderness, cyanotic, pedal edema - Neurological Exam Neurological exam: Present: alert, no focal deficits. Absent: facial droop, speech deficit - Skin Skin exam: Present: dry, intact - VTE Documentation of Mechanical Device: Intermittent pneumatic compression device <Ryder Thomas - Last Filed: 08/10/17 16:11> Date of Encounter: 08/10/17 - Discharge Diagnosis (1) Acute renal failure Priority: Primary Status: Suspected Qualifiers: Acute renal failure type: with acute tubular necrosis Qualified Code(s): N17.0 - Acute kidney failure with tubular necrosis (2) Hydronephrosis Priority: Secondary Status: Chronic Qualifiers: Hydronephrosis type: other Qualified Code(s): N13.39 - Other hydronephrosis (3) Hyperkalemia Priority: Secondary Status: Resolved (4) Acute gastroenteritis Status: Resolved (5) Severe dehydration Priority: Secondary Status: Resolved (6) Urinary retention with incomplete bladder emptying Status: Chronic (7) HTN (hypertension) Status: Chronic Qualifiers: Hypertension type: essential hypertension Qualified Code(s): I10 - Essential (primary) hypertension (8) Diabetes mellitus Priority: Secondary Status: Chronic Qualifiers: Diabetes mellitus type: type 2 Diabetes mellitus complication status: with skin complications Diabetes mellitus complication detail: with foot ulcer Diabetes mellitus petroleum terminal plant operator insulin use: with skilled nursing use Qualified Code(s) : E11.621 - Type 2 diabetes mellitus with foot ulcer; L97.509 - Non-pressure chronic ulcer of other part of unspecified foot with unspecified severity; L97.509 - Non-pressure chronic ulcer of other part of unspecified foot with unspecified severity; L97.509 - Non-pressure chronic ulcer of other part of unspecified foot with unspecified severity; L97.509 - Non-pressure chronic ulcer of other part of unspecified foot with unspecified severity; Z79.4 - [facility] (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; Z79.4 - [facility] (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; Z79.4 - [facility] (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; Z79.4 - exterminator helper (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 (9) Anemia in chronic renal disease Priority: Secondary Status: Chronic Qualifiers: Chronic kidney disease stage: stage 4 (severe) Qualified Code(s): N18.4 - Chronic kidney disease, stage 4 (severe); D63.1 - Anemia in chronic kidney disease; D63.1 - Anemia in chronic kidney disease (10) HLD (hyperlipidemia) Priority: Secondary Status: Chronic Qualifiers: Hyperlipidemia type: mixed hyperlipidemia Qualified Code(s): E78.2 - Mixed hyperlipidemia Date of admission: 08/05/17 07:37 Primary care physician: Macario Diallo MD Consults: 08/05/17 08:29 Consult to Urology [CONS] Routine Consulting Provider: [facility] Reason for Consult: renal failure, chronic bilateral hydronephrosis Time Notified: 08:29 Call Completed: Yes 08/05/17 08:38 Consult to Interventional Radiology [CONS] Routine Consulting Provider: Radiology Interventional Cols Reason for Consult: placement of temp dialysis catheter Call Completed: No 08/05/17 08:45 Consult to Dialysis [CONS] ONCE 08/06/17 08:15 Consult to Dialysis [CONS] ONCE 08/10/17 08:59 Consult to Occupational Therapy [CONS] Routine Comment: Evaluate, develop and implement POC Reason for Consult: has diabetic foot ulcer, may need home health/rehab upon DC Consult to Physical Therapy [CONS] Routine Comment: Evaluate, develop and implement POC Reason for Consult: has diabetic foot ulcer, may need home health/rehab upon DC 08/10/17 11:57 Consult to Occupational Therapy [CONS] Routine Comment: Evaluate, develop and implement POC Reason for Consult: Evaluation after removal of fem line 08/10/17 11:58 PT [Consult to Physical Therapy] [CONS] Routine Comment: Evaluate, develop and implement POC Reason for Consult: Evaluation after fem line removed, D/C pending evaluation Hospital course: Ms. Lacy is a 72 year old female - Time Spent with Patient Total time spent providing and/or coordinating discharge services: 37min - Constitutional Vitals: Temp Pulse Resp BP Pulse Ox 99.7 F H 72 16 138/78 99 08/10/17 12:11 08/10/17 12:11 08/10/17 12:11 08/10/17 12:11 08/10/17 12:11 - Attending Attestation I examined this patient and my medical decision-making was reviewed with the Resident Physician on 08/10/17. I agree with the documented findings, disposition and treatment plan as described except to the extent set forth below. Ms Lacy has been admitted for acute renal failure due to obstructive uropathy and hyperkalemia. She has had short term dialysis with improvement. She has a naylor in place and will need to keep this in after discharge. Today she is afebrile with stable vitals and ready for discharge home. Exam Alert. Comfortable Mucus membranes dry Heart reg No wheeze Abd soft Plan D/C home today Maintain naylor Follow up with PCP and urology.
[2017-08-10 12:13] VITALS: BP 138/78
--- NOTE | 2017-08-10 13:41 | Nephrology Progress Note ---
<Arnoldo Leonardo - Last Filed: 08/10/17 13:38> Date of Encounter: 08/10/17 Time of Encounter: 13:38 - Assessment and Plan (1) MERNA (acute kidney injury) Status: Acute MERNA appears to resolve. The function has returned to baseline and stabilized over the weekend. SORTER OPERATOR not indicated at this time. Recommend close outpatient follow up. (2) Chronic kidney disease, stage IV (severe) Status: Acute (3) Hyponatremia Status: Acute Mild, asymptomatic. Recommend oral sodium chloride supplementation. (4) Hyperkalemia Status: Acute Resolved (5) Gastroenteritis Status: Acute (6) Hydronephrosis Status: Chronic Further management per urology Qualifiers: Hydronephrosis type: other Qualified Code(s): N13.39 - Other hydronephrosis (7) Anemia in chronic renal disease Status: Chronic Qualifiers: Chronic kidney disease stage: stage 4 (severe) Qualified Code(s): N18.4 - Chronic kidney disease, stage 4 (severe); D63.1 - Anemia in chronic kidney disease; D63.1 - Anemia in chronic kidney disease (8) Metabolic acidosis Status: Acute Subjective Principal diagnosis: ARF Interval history: Patient seen and examined in dialysis. She states she feels much better today. She denies nausea and vomiting. She is eating well. She denies shortness of breath, chest pain, abdominal pain, lower extremity swelling. Objective - Vital Signs Vital signs: Vital Signs Temp Pulse Resp BP Pulse Ox 08/10/17 12:11 99.7 F H 72 16 138/78 99 08/10/17 07:27 99.3 F 72 16 114/59 96 08/10/17 04:49 97.4 F L 76 16 127/64 97 08/10/17 00:27 98.5 F 84 16 120/58 96 08/09/17 21:50 97.9 F 80 17 144/76 99 08/09/17 16:10 97.7 F 76 18 124/75 96 Intake and Output 08/09/17 08/10/17 08/10/17 23:59 07:59 15:59 Intake Total 120 / 120 Output Total 1000 / 1000 400 / 400 Balance -880 / -880 -400 / -400 Intake: Oral 120 / 120 Output: Catheter 1000 / 1000 400 / 400 Other: Meal Dinner Lunch Percent of Meal Consumed 10% 0% Weight 58.6 kg Blood Glucose* 295 397 Patient Weight 08/10/17 23:59 Weight 58.6 kg - General Appearance General appearance: Present: well-developed, well-nourished, appears started age EENT: Present: ATNC, mucous membranes moist Neck: Present: supple Respiratory: Present: clear Cardiology: Present: no murmurs, no rub, no gallops, no edema, regular rate, regular rhythm Dialysis Vascular Access: Venous Catheter (R femoral temp HD catheter) Gastrointestinal: Present: normoactive bowel sounds, no tenderness, no guarding Integumentary: Present: no rash, warm and dry Neurologic: Present: no focal deficit, alert and oriented x3 - Lab 08/10/17 04:34 08/10/17 04:34 Most recent lab results Calcium 8.8 mg/dL (8.6-10.3) 08/10/17 04:34 Phosphorus 5.9 mg/dL (2.7-4.5) H 08/05/17 00:50 Magnesium 1.7 mg/dL (1.6-2.6) 08/05/17 00:50 Urine Sodium 88.0 mEq/L 08/05/17 00:00 - VTE Documentation of Mechanical Device: Intermittent pneumatic compression device Consult Discharge Plan - Plan Additional Instructions: Please follow up with your PCP, urology, and nephrology within 1 week of discharge Referrals: [facility] [Provider Group] - 08/17/17 9:30 am () [facility] [Provider Group] - 08/31/17 9:30 am Macario Diallo MD [Primary Care Provider] - 08/17/17 10:15 am () Prescriptions: Ferrous Sulfate 325 mg PO BIDWM #30 tablet Sodium Chloride 1 gm PO BID #30 tablet <Layla Dennis - Last Filed: 09/13/17 22:42> Date of Encounter: 08/10/17 - Assessment and Plan (1) MERNA (acute kidney injury) Status: Acute (2) Chronic kidney disease, stage IV (severe) Status: Chronic (3) Urinary retention with incomplete bladder emptying Status: Chronic (4) Hyponatremia Status: Resolved Objective - Lab 08/10/17 04:34 08/10/17 04:34 Most recent lab results Calcium 8.8 mg/dL (8.6-10.3) 08/10/17 04:34 Phosphorus 5.9 mg/dL (2.7-4.5) H 08/05/17 00:50 Magnesium 1.7 mg/dL (1.6-2.6) 08/05/17 00:50 Urine Sodium 88.0 mEq/L 08/05/17 00:00 - Attending Attestation I examined this patient and my medical decision-making was reviewed with the Resident Physician/BUCKLE STAPLER. I agree with the documented findings, disposition and treatment plan as described except to the extent set forth below. Pt seen and examined feeling better. Eager to go home. SCr back to baseline with GFR at 19. Can be discharged from a renal standpoint. Continue adequate fluid intake. Continue to avoid nephrotoxins if possible. Needs follows with BMP within 2-4 weeks on discharge.
--- NOTE | 2017-08-10 17:07 | Physician Discharge Referral ---
Home Health/Hosp Referral Info Transfer to: Home Health Provider in Charge Post Discharge: PCP - Diagnosis (1) Acute renal failure Priority: Primary Status: Suspected (2) Hydronephrosis Priority: Primary Status: Chronic (3) Hyperkalemia Priority: Secondary Status: Resolved (4) Acute gastroenteritis Priority: Secondary Status: Resolved (5) Severe dehydration Priority: Secondary Status: Resolved (6) Urinary retention with incomplete bladder emptying Priority: Secondary Status: Chronic (7) HTN (hypertension) Priority: Secondary Status: Chronic (8) Diabetes mellitus Priority: Secondary Status: Chronic (9) Anemia in chronic renal disease Priority: Secondary Status: Chronic (10) HLD (hyperlipidemia) Priority: Secondary Status: Chronic - Respiratory Orders Oxygen / L per min (Keep sat greater than 92%) Smoking Cessation: Smoking cessation has been advised. For more information, call the [place] Tobacco Quit Line at 5-170-ALXK-NOW. - Diet/Nutrition Diet/Nutrition Orders: Renal, No Concentrated Sweets - Activity Activity Orders: Up ad damaris - Services Needed Following services are medically necessary services: Nursing, Physical Therapy, Occupational Therapy - Transfer Medications Prescriptions: Ferrous Sulfate 325 mg PO BIDWM #30 tablet Sodium Chloride 1 gm PO BID #30 tablet Home Medications: Metoprolol [Lopressor] 12.5 mg PO BID 03/01/16 [History] Pravastatin Sodium 10 mg PO HS 03/01/16 [History] Insulin Glargine,Hum.rec.anlog [Lantus Solostar] 30 units SQ HS 07/10/17 [ History] Aspirin Enteric Coated [Aspirin EC] 81 mg PO DAILY 08/04/17 [History] Oxygen 1 each .ROUTE AD 08/04/17 [History] Ferrous Sulfate 325 mg PO BIDWM #30 tablet 08/10/17 [Rx] Sodium Chloride 1 gm PO BID #30 tablet 08/10/17 [Rx] Allergies/Adverse Reactions: 3 Allergy/AdvReac Type Severity Reaction Status Date / Time acetaminophen [From Tylenol] Allergy See Verified 07/10/17 16:41 Comments Influenza Virus Vaccines Allergy See Verified 07/10/17 16:41 Comments Certification: Further, I certify that my clinical findings support that this patient is homebound (i.e. absences from home require considerable and taxing effort and are for medical reasons or zoroastrianism services or infrequently or short duration when for other reasons) because: Homebound Reason: Patient requires assistance of a person or device to safely leave home, Leaving home requires considerable and taxing effort due to condition Attestation: My signature below is to certify that this patient is under my care and that I, or nurse practitioner, or a physician's operator assistant i cementing working with me, has a face-to -face encounter with this patient.
== END 2017-08-10 18:04 | disposition home or self-care (01) | DRG 683 ==
LOC: EMEROO 12:45 → 2ANU 12:45 → SUATTDRO 16:48 → 2ANU 17:10
PROVIDERS: ADMIT Internal Medicine; ATTEND Internal Medicine

== ENCOUNTER 2017-08-30 04:28 | Inpatient (IN) ==
[2017-08-30 04:58] LABS: Basophils # 0.1 K/mcL (0.0-0.2); Basophils % 0.4 %; Eosinophils # 0.1 K/mcL (0.0-0.6); Eosinophils % 0.7 %; Hematocrit 35.2 % (35.3-44.9); Hemoglobin 11.6 g/dL (11.5-15.4); Lymphocytes # 2.9 K/mcL (0.6-4.6); Lymphocytes % 22.5 %; Mean Corpuscular Hemoglobin 26.2 pg (28.0-33.3); Mean Corpuscular Volume 79.6 fL (83.0-100.0); Mean Platelet Volume 9.2 fL (9.4-12.4); Monocytes # 0.6 K/mcL (0.0-1.3); Monocytes % 4.9 %; Neutrophils # 9.1 K/mcL (1.6-8.9); Platelet Count 625 K/mcL (140-400); Red Blood Count 4.42 M/mcL (3.82-4.97); Segmented Neutrophils % 70.5 %
--- NOTE | 2017-08-30 05:03 | Emergency Department Note ---
Disposition Clinical Impression: Acute kidney injury, Hyperkalemia, Dehydration UTI (urinary tract infection) Qualifiers: Urinary tract infection type: acute cystitis Hematuria presence: without hematuria Qualified Code(s): N30.00 - Acute cystitis without hematuria Disposition: Admitted As Inpatient Condition: Fair Referrals: Macario Diallo MD [Primary Care Provider] - Forms: ED Satisfaction Letter, Work/School Release Time of Disposition: 06:17 General Adult HPI - General Chief complaint: ED General Medical Stated complaint: nausea Time Seen by Provider: 08/30/17 04:32 Source: patient Limitations: no limitations Nursing Notes Reviewed: Yes Vital Signs Reviewed: Yes - History of Present Illness HPI Narrative: Patient presents to emergency Department with weakness and vomiting. Patient states she was fine when she went to bed last night. When she woke up this point she felt weak and she had an episode of vomiting. Patient states she just does not feel well. Denies any pain in her chest or abdomen. Denies any shortness of breath. She lives a home with her daughter. Pain Scale: 0 - Related Data Home Medications Medication Instructions Recorded Confirmed Metoprolol [Lopressor] 12.5 mg PO BID 03/01/16 08/04/17 Pravastatin Sodium 10 mg PO HS 03/01/16 08/04/17 Insulin Glargine,Hum.rec.anlog 30 units SQ HS 07/10/17 08/04/17 [Lantus Solostar] Aspirin Enteric Coated [Aspirin EC] 81 mg PO DAILY 08/04/17 08/04/17 Oxygen 1 each .ROUTE AD 08/04/17 08/04/17 Previous Rx's Medication Instructions Recorded Ferrous Sulfate 325 mg PO BIDWM #30 tablet 08/10/17 Sodium Chloride 1 gm PO BID #30 tablet 08/10/17 Allergies Allergy/AdvReac Type Severity Reaction Status Date / Time acetaminophen [From Tylenol] Allergy See Verified 07/10/17 16:41 Comments Influenza Virus Vaccines Allergy See Verified 07/10/17 16:41 Comments All systems ED: reviewed and negative except as stated. Constitutional: Denies: fever Cardiovascular: Denies: chest pain Respiratory: Denies: dyspnea Gastrointestinal: Reports: nausea, vomiting. Denies: abdominal pain, diarrhea Past Medical History - Past Medical History Attestation: Yes The following information was validated with the patient. 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 Abdomen soft. Lungs clear. - General Limitations: no limitations General appearance: alert, in no apparent distress - Head Head exam: atraumatic, normocephalic - Eye Eye exam: Present: normal appearance, PERRL - ENT ENT exam: normal oropharynx - Neck Neck exam: Present: normal inspection, full ROM - Chest Chest inspection: Present: normal inspection - Respiratory Respiratory exam: Present: normal lung sounds bilaterally - Cardiovascular Cardiovascular exam: Present: regular rate, normal rhythm, normal heart sounds - Abdominal Exam Abdominal exam: Present: soft, Non-Tender - Neurological Exam Neurological exam: Present: alert, oriented X3, CN II-XII intact - Psychiatric Psychiatric exam: Present: normal affect - Skin Skin exam: Present: warm, dry Course - Reevaluation(s) Reevaluation #1: We will check CT and basic labs. Time: 06:11 Reevaluation #2: Patient hyperkalemia. Acute renal failure. Number similar prior admission. At that time the patient had a temporary dialysis catheter placed and 2 days of hemodialysis. She states she was told she would not need any more after that. Will discuss with nephrology. Sodium bicarbonate, calcium gluconate, insulin and D50 ordered. Time: 06:15 - Consultations Consultation #1: Discussed with Dr. Meza who will see in consult. Agrees with medications ordered. Time: 06:31 Consultation #2: Dr Vega accepts for admission Time: 06:44 Vital Signs Temperature 97.4 F L 08/30/17 04:30 Pulse Rate 97 08/30/17 04:30 Respiratory Rate 18 08/30/17 04:30 Blood Pressure 128/83 08/30/17 04:30 O2 Sat by Pulse Oximetry 99 08/30/17 04:30 Temperature 97.4 F L 08/30/17 04:30 Pulse Rate 107 08/30/17 06:42 Respiratory Rate 18 08/30/17 06:42 Blood Pressure 148/71 08/30/17 06:42 O2 Sat by Pulse Oximetry 100 08/30/17 06:42 Oxygen Delivery Oxygen Delivery Room Air Medical Decision Making - Lab Data Result diagrams: 08/30/17 04:45 08/30/17 04:45 Lab Results 08/30/17 08/30/17 08/30/17 Range/Units 04:45 04:45 04:45 WBC 12.9 H (4.3-11.1) K/mcL RBC 4.42 (3.82-4.97) M/mcL Hgb 11.6 (11.5-15.4) g/dL Hct 35.2 L (35.3-44.9) % MCV 79.6 L (83.0-100.0) fL MCH 26.2 L (28.0-33.3) pg MCHC 33.0 (31.6-35.5) g/dL RDW 14.0 (11.5-14.5) % Plt Count 625 H (140-400) K/mcL MPV 9.2 L (9.4-12.4) fL Immature Gran % 1.0 (0-4) % Seg Neutrophils % 70.5 % Lymphocytes % 22.5 % Monocytes % 4.9 % Eosinophils % 0.7 % Basophils % 0.4 % Neutrophils # 9.1 H (1.6-8.9) K/mcL Lymphocytes # 2.9 (0.6-4.6) K/mcL Monocytes # 0.6 (0.0-1.3) K/mcL Eosinophils # 0.1 (0.0-0.6) K/mcL Basophils # 0.1 (0.0-0.2) K/mcL Sodium 123 L (136-145) mEq/L Potassium 6.6 H* (3.5-5.1) mEq/L Chloride 91 L (98-107) mEq/L Carbon Dioxide 15 L (23-29) mEq/L BUN > 130 H (8-23) mg/dL Creatinine 7.28 H (0.60-1.20) mg/dL Est GFR ( Amer) 7 L (> 60) Est GFR (Non-Af Amer) 5 L (> 60) BUN/Creatinine Ratio TNP Glucose 147 H (70-105) mg/dL Calculated Osmolality TNP Lactic Acid (0.5-2.2) mmol/L Calcium 9.7 (8.6-10.3) mg/dL Total Bilirubin 0.2 L (0.3-1.0) mg/dL Direct Bilirubin 0.0 (0.0-0.2) mg/dL Indirect Bilirubin 0.2 (0.0-1.2) mg/dL AST 8 L (13-39) Units/L ALT 7 (7-52) Units/L Alkaline Phosphatase 190 H (34-104) Units/L Troponin I 0.03 (< 0.04) ng/mL Serum Total Protein 10.9 H (6.4-8.9) g/dL Albumin 3.6 (3.5-5.7) g/dL Globulin 7.3 H (2.4-3.5) g/dL Albumin/Globulin Ratio 0.5 L (1.1-2.2) Amylase 56 (29-103) Units/L Lipase 39 (11-82) Units/L Urine Color (Yellow) Urine Clarity (Clear) Urine pH (5.0-8.0) pH Units Ur Specific [place] (1.010-1.025) Urine Protein (Neg-Trace) mg/dL Urine Glucose (UA) (Normal) mg/dL Urine Ketones (Negative) mg/dL Urine Blood (Negative) Urine Nitrite (Negative) Urine Bilirubin (Negative) Urine Urobilinogen (Normal) mg/dL Ur Leukocyte Esterase (Negative) Urine Microscopic RBC (0-3) per hpf Urine Microscopic WBC (0-3) per hpf Ur Squamous Epith Cells (None-Few) per lpf Urine Bacteria (None-Few) per hpf Urine Yeast (None Seen) per hpf Ur Culture Indicated? (NO) 08/30/17 08/30/17 Range/Units 05:07 05:43 WBC (4.3-11.1) K/mcL RBC (3.82-4.97) M/mcL Hgb (11.5-15.4) g/dL Hct (35.3-44.9) % MCV (83.0-100.0) fL MCH (28.0-33.3) pg MCHC (31.6-35.5) g/dL RDW (11.5-14.5) % Plt Count (140-400) K/mcL MPV (9.4-12.4) fL Immature Gran % (0-4) % Seg Neutrophils % % Lymphocytes % % Monocytes % % Eosinophils % % Basophils % % Neutrophils # (1.6-8.9) K/mcL Lymphocytes # (0.6-4.6) K/mcL Monocytes # (0.0-1.3) K/mcL Eosinophils # (0.0-0.6) K/mcL Basophils # (0.0-0.2) K/mcL Sodium (136-145) mEq/L Potassium (3.5-5.1) mEq/L Chloride (98-107) mEq/L Carbon Dioxide (23-29) mEq/L BUN (8-23) mg/dL Creatinine (0.60-1.20) mg/dL Est GFR ( Amer) (> 60) Est GFR (Non-Af Amer) (> 60) BUN/Creatinine Ratio Glucose (70-105) mg/dL Calculated Osmolality Lactic Acid 1.0 (0.5-2.2) mmol/L Calcium (8.6-10.3) mg/dL Total Bilirubin (0.3-1.0) mg/dL Direct Bilirubin (0.0-0.2) mg/dL Indirect Bilirubin (0.0-1.2) mg/dL AST (13-39) Units/L ALT (7-52) Units/L Alkaline Phosphatase (34-104) Units/L Troponin I (< 0.04) ng/mL Serum Total Protein (6.4-8.9) g/dL Albumin (3.5-5.7) g/dL Globulin (2.4-3.5) g/dL Albumin/Globulin Ratio (1.1-2.2) Amylase (29-103) Units/L Lipase (11-82) Units/L Urine Color Yellow (Yellow) Urine Clarity Turbid A (Clear) Urine pH 6.0 (5.0-8.0) pH Units Ur Specific [place] 1.012 (1.010-1.025) Urine Protein >=300 H (Neg-Trace) mg/dL Urine Glucose (UA) Normal (Normal) mg/dL Urine Ketones Negative (Negative) mg/dL Urine Blood Large H (Negative) Urine Nitrite Negative (Negative) Urine Bilirubin Negative (Negative) Urine Urobilinogen Normal (Normal) mg/dL Ur Leukocyte Esterase Large H (Negative) Urine Microscopic RBC TNTC H (0-3) per hpf Urine Microscopic WBC TNTC H (0-3) per hpf Ur Squamous Epith Cells Many H (None-Few) per lpf Urine Bacteria Moderate H (None-Few) per hpf Urine Yeast Few H (None Seen) per hpf Ur Culture Indicated? NO. (NO) - EKG Data EKG #1 EKG attestation: Yes I reviewed and interpreted this EKG. EKG results narrative: Normal sinus at 99. Anterolateral ST depressions. Inferior Q waves. Septal Q- wave. Normal interval. Critical Care Time Critical Care Time: Yes Total Critical Care Time: 40 Attestation: Critical care performed: Time is exclusive of separately billable procedures. Time includes: direct patient care, patient reassessment, coordination of patient care, interpretation of data (laboratory data, radiology data, and respiratory data), review of patient's medical records, medical consultation and documentation of patient care. Procedures included in critical care time: Procedures excluded from critical care time:
[2017-08-30] MEDS ORDERED: Ondansetron 4 MG/2 ML VIAL IVP ONE ×2 (05:13→06:26)
[2017-08-30 05:18] LABS: Bilirubin,Urine Negative (Negative); Blood,Urine Large (Negative); Clarity,Urine Turbid (Clear); Color,Urine Yellow (Yellow); Glucose,Urine (UA) Normal (Normal); Ketones,Urine Negative (Negative); Leukocyte Esterase,Urine Large (Negative); Nitrite,Urine Negative (Negative); Protein,Urine >=300 mg/dL (Neg-Trace); Specific Gravity,Urine 1.012 (1.010-1.025); Urobilinogen,Urine Normal (Normal)
[2017-08-30 05:21] LABS: Squamous Epithelial Cell,Urine Many per lpf (None-Few); WBC,Urine TNTC per hpf (0-3)
[2017-08-30 05:41] LABS: Bacteria,Urine Moderate per hpf (None-Few); RBC,Urine TNTC per hpf (0-3); Yeast,Urine Few per hpf (None Seen)
[2017-08-30] MEDS ORDERED: cefTRIAXone 1,000 MG in Water for inj. (sterile) 20 ML 10 ML IVPB ONE (05:45)
[2017-08-30 06:11] LABS: Alanine Aminotransferase 7 Units/L (7-52); Albumin 3.6 g/dL (3.5-5.7); Albumin/Globulin Ratio 0.5 (1.1-2.2); Alkaline Phosphatase 190 Units/L (34-104); Amylase 56 Units/L (29-103); Aspartate Amino Transferase 8 Units/L (13-39); Bilirubin,Indirect 0.2 mg/dL (0.0-1.2); Bilirubin,Total 0.2 mg/dL (0.3-1.0); Blood Urea Nitrogen > 130 mg/dL (8-23); Calcium 9.7 mg/dL (8.6-10.3); Carbon Dioxide 15 mEq/L (23-29); Chloride 91 mEq/L (98-107); Globulin 7.3 g/dL (2.4-3.5); Glucose 147 mg/dL (70-105); Lipase 39 Units/L (11-82); Potassium 6.6 mEq/L (3.5-5.1); Sodium 123 mEq/L (136-145); Total Protein 10.9 g/dL (6.4-8.9); eGFR For African Americans 7 (> 60); eGFR For Non-African Americans 5 (> 60)
[2017-08-30] MEDS ORDERED: Insulin Human Regular 10 UNIT in 0.9 % Sodium Chloride 10 ML IV ONE (06:14)
[2017-08-30] MEDS ORDERED: *HR* Dextrose 50 % in Water (Syg) 50 ML SYRINGE IVP ONE (06:14)
[2017-08-30] MEDS ORDERED: Sodium Bicarbonate 50 MEQ/50 ML VIAL IVP ONE (06:14)
[2017-08-30] MEDS ORDERED: 0.9 % Sodium Chloride 1,000 ML IVC ONE (06:44)
--- NOTE | 2017-08-30 07:34 | Emergency Department Note ---
START Narrative - START START: Twelve-lead EKG: Interpreted without Cardiologic assistance shows sinus rhythm with first-degree AV block at a rate of 99 bpm. Prolonged CO interval at 211 ms, QRS duration, and 20 ms normal QT corrected 4-19 ms which is normal. Old infarct. Nonspecific ST-T changes and some mild depression of the ST segment in V4 5 and 6 which appear to be new.
--- NOTE | 2017-08-30 07:37 | Emergency Department Note ---
Disposition Clinical Impression: Acute kidney injury, Hyperkalemia, Dehydration UTI (urinary tract infection) Qualifiers: Urinary tract infection type: acute cystitis Hematuria presence: without hematuria Qualified Code(s): N30.00 - Acute cystitis without hematuria Disposition: Admitted As Inpatient Condition: Fair Referrals: Macario Diallo MD [Primary Care Provider] - Forms: ED Satisfaction Letter, Work/School Release General Adult HPI - General Chief complaint: ED General Medical Stated complaint: nausea Time Seen by Provider: 08/30/17 04:32 Source: patient Limitations: no limitations - History of Present Illness Pain Scale: 0 - Related Data Home Medications Medication Instructions Recorded Confirmed Metoprolol [Lopressor] 12.5 mg PO BID 03/01/16 08/04/17 Pravastatin Sodium 10 mg PO HS 03/01/16 08/04/17 Insulin Glargine,Hum.rec.anlog 30 units SQ HS 07/10/17 08/04/17 [Lantus Solostar] Aspirin Enteric Coated [Aspirin EC] 81 mg PO DAILY 08/04/17 08/04/17 Oxygen 1 each .ROUTE AD 08/04/17 08/04/17 Previous Rx's Medication Instructions Recorded Ferrous Sulfate 325 mg PO BIDWM #30 tablet 08/10/17 Sodium Chloride 1 gm PO BID #30 tablet 08/10/17 Allergies Allergy/AdvReac Type Severity Reaction Status Date / Time acetaminophen [From Tylenol] Allergy See Verified 07/10/17 16:41 Comments Influenza Virus Vaccines Allergy See Verified 07/10/17 16:41 Comments Constitutional: Denies: fever Cardiovascular: Denies: chest pain Respiratory: Denies: dyspnea Gastrointestinal: Reports: nausea, vomiting. 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 Patient was initially seen for altered mental status discharged home earlier in the yesterday return back by EMS for hallucinations "people breaking the window;, initiating me in the house". Patient is awaiting head CT. Labs are completed. Plan is admission for acute delirium. Patient currently resting in bed and stable. Time: 07:36 Vital Signs Temperature 97.4 F L 08/30/17 04:30 Pulse Rate 97 08/30/17 04:30 Respiratory Rate 18 08/30/17 04:30 Blood Pressure 128/83 08/30/17 04:30 O2 Sat by Pulse Oximetry 99 08/30/17 04:30 Temperature 97.4 F L 08/30/17 04:30 Pulse Rate 107 08/30/17 06:42 Respiratory Rate 18 08/30/17 06:42 Blood Pressure 148/71 08/30/17 06:42 O2 Sat by Pulse Oximetry 100 08/30/17 06:42 Oxygen Delivery Oxygen Delivery Room Air Medical Decision Making - Lab Data Result diagrams: 08/30/17 04:45 08/30/17 04:45 Lab Results 08/30/17 08/30/17 08/30/17 Range/Units 04:45 04:45 04:45 WBC 12.9 H (4.3-11.1) K/mcL RBC 4.42 (3.82-4.97) M/mcL Hgb 11.6 (11.5-15.4) g/dL Hct 35.2 L (35.3-44.9) % MCV 79.6 L (83.0-100.0) fL MCH 26.2 L (28.0-33.3) pg MCHC 33.0 (31.6-35.5) g/dL RDW 14.0 (11.5-14.5) % Plt Count 625 H (140-400) K/mcL MPV 9.2 L (9.4-12.4) fL Immature Gran % 1.0 (0-4) % Seg Neutrophils % 70.5 % Lymphocytes % 22.5 % Monocytes % 4.9 % Eosinophils % 0.7 % Basophils % 0.4 % Neutrophils # 9.1 H (1.6-8.9) K/mcL Lymphocytes # 2.9 (0.6-4.6) K/mcL Monocytes # 0.6 (0.0-1.3) K/mcL Eosinophils # 0.1 (0.0-0.6) K/mcL Basophils # 0.1 (0.0-0.2) K/mcL Sodium 123 L (136-145) mEq/L Potassium 6.6 H* (3.5-5.1) mEq/L Chloride 91 L (98-107) mEq/L Carbon Dioxide 15 L (23-29) mEq/L BUN > 130 H (8-23) mg/dL Creatinine 7.28 H (0.60-1.20) mg/dL Est GFR ( Amer) 7 L (> 60) Est GFR (Non-Af Amer) 5 L (> 60) BUN/Creatinine Ratio TNP Glucose 147 H (70-105) mg/dL Calculated Osmolality TNP Lactic Acid (0.5-2.2) mmol/L Calcium 9.7 (8.6-10.3) mg/dL Total Bilirubin 0.2 L (0.3-1.0) mg/dL Direct Bilirubin 0.0 (0.0-0.2) mg/dL Indirect Bilirubin 0.2 (0.0-1.2) mg/dL AST 8 L (13-39) Units/L ALT 7 (7-52) Units/L Alkaline Phosphatase 190 H (34-104) Units/L Troponin I 0.03 (< 0.04) ng/mL Serum Total Protein 10.9 H (6.4-8.9) g/dL Albumin 3.6 (3.5-5.7) g/dL Globulin 7.3 H (2.4-3.5) g/dL Albumin/Globulin Ratio 0.5 L (1.1-2.2) Amylase 56 (29-103) Units/L Lipase 39 (11-82) Units/L Urine Color (Yellow) Urine Clarity (Clear) Urine pH (5.0-8.0) pH Units Ur Specific [place] (1.010-1.025) Urine Protein (Neg-Trace) mg/dL Urine Glucose (UA) (Normal) mg/dL Urine Ketones (Negative) mg/dL Urine Blood (Negative) Urine Nitrite (Negative) Urine Bilirubin (Negative) Urine Urobilinogen (Normal) mg/dL Ur Leukocyte Esterase (Negative) Urine Microscopic RBC (0-3) per hpf Urine Microscopic WBC (0-3) per hpf Ur Squamous Epith Cells (None-Few) per lpf Urine Bacteria (None-Few) per hpf Urine Yeast (None Seen) per hpf Ur Culture Indicated? (NO) 08/30/17 08/30/17 Range/Units 05:07 05:43 WBC (4.3-11.1) K/mcL RBC (3.82-4.97) M/mcL Hgb (11.5-15.4) g/dL Hct (35.3-44.9) % MCV (83.0-100.0) fL MCH (28.0-33.3) pg MCHC (31.6-35.5) g/dL RDW (11.5-14.5) % Plt Count (140-400) K/mcL MPV (9.4-12.4) fL Immature Gran % (0-4) % Seg Neutrophils % % Lymphocytes % % Monocytes % % Eosinophils % % Basophils % % Neutrophils # (1.6-8.9) K/mcL Lymphocytes # (0.6-4.6) K/mcL Monocytes # (0.0-1.3) K/mcL Eosinophils # (0.0-0.6) K/mcL Basophils # (0.0-0.2) K/mcL Sodium (136-145) mEq/L Potassium (3.5-5.1) mEq/L Chloride (98-107) mEq/L Carbon Dioxide (23-29) mEq/L BUN (8-23) mg/dL Creatinine (0.60-1.20) mg/dL Est GFR ( Amer) (> 60) Est GFR (Non-Af Amer) (> 60) BUN/Creatinine Ratio Glucose (70-105) mg/dL Calculated Osmolality Lactic Acid 1.0 (0.5-2.2) mmol/L Calcium (8.6-10.3) mg/dL Total Bilirubin (0.3-1.0) mg/dL Direct Bilirubin (0.0-0.2) mg/dL Indirect Bilirubin (0.0-1.2) mg/dL AST (13-39) Units/L ALT (7-52) Units/L Alkaline Phosphatase (34-104) Units/L Troponin I (< 0.04) ng/mL Serum Total Protein (6.4-8.9) g/dL Albumin (3.5-5.7) g/dL Globulin (2.4-3.5) g/dL Albumin/Globulin Ratio (1.1-2.2) Amylase (29-103) Units/L Lipase (11-82) Units/L Urine Color Yellow (Yellow) Urine Clarity Turbid A (Clear) Urine pH 6.0 (5.0-8.0) pH Units Ur Specific [place] 1.012 (1.010-1.025) Urine Protein >=300 H (Neg-Trace) mg/dL Urine Glucose (UA) Normal (Normal) mg/dL Urine Ketones Negative (Negative) mg/dL Urine Blood Large H (Negative) Urine Nitrite Negative (Negative) Urine Bilirubin Negative (Negative) Urine Urobilinogen Normal (Normal) mg/dL Ur Leukocyte Esterase Large H (Negative) Urine Microscopic RBC TNTC H (0-3) per hpf Urine Microscopic WBC TNTC H (0-3) per hpf Ur Squamous Epith Cells Many H (None-Few) per lpf Urine Bacteria Moderate H (None-Few) per hpf Urine Yeast Few H (None Seen) per hpf Ur Culture Indicated? NO. (NO)
[2017-08-30] MEDS ORDERED: Naloxone 0.4 MG/ML INJ IVP PRN (07:43)
[2017-08-30] MEDS ORDERED: Ondansetron 4 MG/2 ML VIAL IVP PRN (07:43)
--- NOTE | 2017-08-30 09:04 | Internal Med History&Physical ---
Date of Encounter: 08/30/17 Time of Encounter: 08:20 Assessment and Plan (1) Acute renal failure Current visit: No Status: Suspected Pt has hx of chronic obstruction. Naylor had been removed. Naylor replaced today Renal consult Repeat renal labs Treat hyperkalemia Qualifiers: Acute renal failure type: with acute tubular necrosis Qualified Code(s): N17.0 - Acute kidney failure with tubular necrosis (2) Hyperkalemia Current visit: No Status: Acute Pt presented to ED with nausea, vomiting and found to have MERNA and hyperkalemia. Admit to tele Given treatment in ED Recheck potassium Renal consult - ? need dialysis again. (3) Obstructive uropathy Current visit: Yes Status: Chronic (4) Diabetes mellitus Current visit: No Status: Chronic Accuchecks and coverage ordered. Qualifiers: Diabetes mellitus type: type 2 Diabetes mellitus complication status: with skin complications Diabetes mellitus complication detail: with foot ulcer Diabetes mellitus care home insulin use: with care home use Qualified Code(s) : E11.621 - Type 2 diabetes mellitus with foot ulcer; L97.509 - Non-pressure chronic ulcer of other part of unspecified foot with unspecified severity; L97.509 - Non-pressure chronic ulcer of other part of unspecified foot with unspecified severity; L97.509 - Non-pressure chronic ulcer of other part of unspecified foot with unspecified severity; L97.509 - Non-pressure chronic ulcer of other part of unspecified foot with unspecified severity; Z79.4 - correction (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; Z79.4 - correction (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; Z79.4 - correction (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; Z79.4 - long term care social worker (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 (5) Hyponatremia Current visit: No Status: Acute Most likely due to excess volume Will recheck (6) UTI (urinary tract infection) Current visit: Yes Status: Acute UA consistent with UTI. Rocephin given in ED. Based on prior culture with Proteus will give Levaquin. Qualifiers: Urinary tract infection type: acute cystitis Hematuria presence: with hematuria Qualified Code(s): N30.01 - Acute cystitis with hematuria (7) HTN (hypertension) Current visit: No Status: Chronic Continue home meds and monitor. Qualifiers: Hypertension type: essential hypertension Qualified Code(s): I10 - Essential (primary) hypertension (8) Chronic kidney disease, stage IV (severe) Current visit: No Status: Chronic (9) Diabetic ulcer of left foot Current visit: No Status: Chronic Pt has multiple open areas on both feet and shins. Wound care. Qualifiers: Diabetic foot ulcer location: toe Diabetes mellitus type: type 2 Non- pressure ulcer stage: with necrosis of muscle Qualified Code(s): E11.621 - Type 2 diabetes mellitus with foot ulcer; L97.523 - Non-pressure chronic ulcer of other part of left foot with necrosis of muscle; L97.523 - Non-pressure chronic ulcer of other part of left foot with necrosis of muscle; L97.523 - Non- pressure chronic ulcer of other part of left foot with necrosis of muscle; L97.523 - Non-pressure chronic ulcer of other part of left foot with necrosis of muscle Internal Medicine - H&P: HPI Admitted From: Emergency Dept Plans for Post Hospital Care: Home History of present illness: Ms. Lacy is a 72 year old female recently hospitalized here in early August presented to ED early this AM with complaints of weakness and vomiting. She denies any issues prior to waking up and feeling weak. She had one episode of vomiting. She had no CP, SOB or abdominal pain at the time. Currently Ms Lacy is feeling OK. Denies pain or dyspnea. Ate breakfast but did have some nausea after. Denies fever or pain with urination. No diarrhea or constipation. Ms Lacy was discharged last visit with improved renal function after naylor placement and short term dialysis. She had naylro removed (though she is not clear when I ask her about this as she was told it needed to stay in) and said her potassium had been low so she was placed on PO potassium supplement as well. Past Med Surg Social Fam HX - Past Medical History Source: patient Medical history: diabetes, hyperlipidemia, hypertension, renal disease, other Psychiatric history: no psych history - Past Surgical History Surgical History: appendectomy, cholecystectomy, hysterectomy - Social History Smoking Status: Former smoker Smokeless Tobacco Status: No Alcohol use: none Drug use: none Occupational status: unemployed Current living situation: With Family Recent Out of Country Travel Within the Last 8 Weeks: No Exposure or Possible Exposure to Illness During Travel: No - Family History Mother Living Status: Age at : 89 Hx Family Cardiac Disorders: Yes Father Living Status: Hx Family Cardiac Disorders: Yes Internal Medicine - H&P: Meds Metoprolol [Lopressor] 12.5 mg PO BID 03/01/16 [History] Pravastatin Sodium 10 mg PO HS 03/01/16 [History] Insulin Glargine,Hum.rec.anlog [Lantus Solostar] 30 units SQ HS 07/10/17 [ History] Aspirin Enteric Coated [Aspirin EC] 81 mg PO DAILY 08/04/17 [History] Oxygen 1 each .ROUTE AD 08/04/17 [History] Ferrous Sulfate 325 mg PO BIDWM #30 tablet 08/10/17 [Rx] Sodium Chloride 1 gm PO BID #30 tablet 08/10/17 [Rx] 3 Allergy/AdvReac Type Severity Reaction Status Date / Time acetaminophen [From Tylenol] Allergy See Verified 08/30/17 09:37 Comments Influenza Virus Vaccines Allergy See Verified 08/30/17 09:37 Comments All Systems PM: A 10-system review of systems was performed and is negative for pertinent findings except as documented above in the HPI. - Constitutional Constitutional: fatigue, weakness - EENT Eyes: no blurry vision, no loss of vision, no pain Ears: decreased hearing Additional comments: Wears hearing aids. Nose, mouth and throat: dry mouth, no mouth lesions, no mouth pain, no sinus pain - Cardiovascular Cardiovascular ROS IM: lightheadedness, no chest pain, no dyspnea, no dyspnea on exertion, no edema - Respiratory Respiratory: no cough, no hemoptysis, no dyspnea on exertion, no wheezing, no chest congestion - Gastrointestinal Gastrointestinal: nausea, vomiting, no abdominal pain, no constipation, no diarrhea - Genitourinary Genitourinary: no dysuria, no flank pain, no urinary frequency, no urinary hesitancy - Musculoskeletal Musculoskeletal ROS IM: arthralgias, no joint swelling, no numbness - Integumentary Integumentary IM: no erythema, no rash - Neurological Neurological ROS: no confusion, no focal weakness, no frequent falls, no headache(s) - Endocrine Endocrine IM: no cold intolerance, no polydipsia - Hematologic/Lymphatic Hematologic/Lymphatic: easy bruising, no easy bleeding - Allergic/Immunologic Allergic/Immunologic: no itchy eyes, no uticaria - Constitutional Vitals: Temp Pulse Resp BP Pulse Ox 97.5 F L 100 17 152/92 100 08/30/17 08:31 08/30/17 08:31 08/30/17 08:31 08/30/17 08:31 08/30/17 08:31 General appearance: Present: A&O X 3, pleasant, answers questions appropriately - Head Head exam: Present: atraumatic, normocephalic - Eye Eye exam: Present: EOMI, conjuntiva pink Pupils: Present: PERRL - ENT ENT exam: Present: mucous membranes dry - Neck Neck exam general surgery: Absent: lymphadenopathy, tenderness - Respiratory Respiratory exam: Present: CTAB. Absent: rales, rhonchi, wheezes - Cardiovascular Cardiovascular exam: Present: RRR, tachycardia - GI/Abdominal GI/Abdominal exam: Present: normal bowel sounds, soft. Absent: mass, tenderness - Extremities Exam Extremities exam: Present: warm. Absent: tenderness Additional comments: Excoriations on legs - Neurological Exam Neurological exam: Present: alert, oriented X3, no focal deficits - Skin Skin exam: Present: dry, excoriation, warm. Absent: rash Internal Med - H&P Results - Labs CBC & Chem 7: 08/30/17 04:45 08/30/17 11:12
[2017-08-30] MEDS: Sodium Bicarbonate 150 MEQ in D5% in Water 1,000 ML IVC SCH (09:30)
[2017-08-30] MEDS: Levofloxacin 500 MG/100 ML 500 MG/100 ML BAG IVPB SCH (10:10)
[2017-08-30 12:03] LABS: Albumin 2.9 g/dL (3.5-5.7); Blood Urea Nitrogen > 130 mg/dL (8-23); Calcium 8.9 mg/dL (8.6-10.3); Carbon Dioxide 18 mEq/L (23-29); Chloride 96 mEq/L (98-107); Glucose 188 mg/dL (70-105); Phosphorous 7.6 mg/dL (2.7-4.5); Potassium 5.7 mEq/L (3.5-5.1); Sodium 129 mEq/L (136-145); eGFR For African Americans 7 (> 60); eGFR For Non-African Americans 6 (> 60)
--- NOTE | 2017-08-30 12:37 | Nephrology Consult Note ---
Date of Encounter: 08/30/17 Time of Encounter: 11:00 Assessment and Plan (1) MERNA (acute kidney injury) Current Visit: Yes Status: Acute Elevated SCr in th setting of recurrent history each resolved with IVF and naylor Will start IVF for volume repletion Encouraged po fluids as well No acute indication for FRAME BANDER just yet but should potassium fail to improve, discussed at length with pt and son the need for FRAME BANDER then Will ordere urine studies, CPK and uric acid levels as well (2) Hyperkalemia Current Visit: Yes Status: Acute s/p 30g kayexalate in ER, 30g more given since no BM yet IVF started with D5w with 3 amps bicarb Will repeat potassium soon to make final decision on FRAME BANDER need today (3) Chronic kidney disease, stage IV (severe) Current Visit: Yes Status: Chronic Baseline GFR around 19 History of Present Illness - Reason for Consult Consult date: 08/30/17 Acute Kidney Injury, Chronic Kidney Disease, hyperkalemia Requesting physician: Dalila Handley See - History of Present Illness 72 y o female with stage 4 CKD known to me fro previou admissions for MERNA in july and earlier this month with hyperkalemia that required traansient HD. Pt now presents with reports of weaknees and vomiting overnight but per son she hasnot been feeling well on/off for about a week. Se was noted with potassium of 6.6, SCr of 7.28, GFR 5 with BUN >130 and bicarb at 15. Pt is a poor historian and gets easily confused. Most information obtained from records and son. She was unable to make her outpatient appt with me 08/17/2017 due to transportation issues but was able to see urology 08/26/17 after accidentally pulling her naylor catheter out which has stayed out since voiding well. Naylor placed today only gave 200cc urine Past Med Surg Social Fam HX - Past Medical History Medical history: diabetes, hyperlipidemia, hypertension, renal disease, other Psychiatric history: no psych history - Past Surgical History Surgical History: appendectomy, cholecystectomy, hysterectomy - Social History Smoking Status: Never smoker Smokeless Tobacco Status: No Alcohol use: none Drug use: none - Family History Mother Living Status: Age at : 89 Father Living Status: Medications and Allergies Metoprolol [Lopressor] 12.5 mg PO BID 07/30/16 [History] Pravastatin Sodium 10 mg PO HS 03/01/16 [History] Insulin Glargine,Hum.rec.anlog [Lantus Solostar] 30 units SQ HS 07/10/17 [ History] Aspirin Enteric Coated [Aspirin EC] 81 mg PO DAILY 08/04/17 [History] Oxygen 1 each .ROUTE AD 08/04/17 [History] Ferrous Sulfate 325 mg PO BIDWM #30 tablet 08/10/17 [Rx] Sodium Chloride 1 gm PO BID #30 tablet 08/10/17 [Rx] 3 Allergy/AdvReac Type Severity Reaction Status Date / Time acetaminophen [From Tylenol] Allergy See Verified 08/30/17 09:37 Comments Influenza Virus Vaccines Allergy See Verified 08/30/17 09:37 Comments Review of Systems All Systems: reviewed and no additional remarkable complaints except as stated ( 10 system reviewed and positives noted in HPI) Exam - Vital Signs Vital signs: Initial Vital Signs Temp Pulse Resp BP Pulse Ox 97.4 F L 97 18 128/83 99 08/30/17 04:30 08/30/17 04:30 08/30/17 04:30 08/30/17 04:30 08/30/17 04:30 Vital Signs - Last 8 Hours Temp Pulse Resp BP Pulse Ox 08/30/17 11:29 101 15 108/67 99 08/30/17 10:54 98 08/30/17 10:24 98 13 148/78 99 08/30/17 09:30 102 16 121/66 100 08/30/17 08:31 97.5 F L 100 17 152/92 100 08/30/17 08:28 18 143/81 08/30/17 08:00 102 Intake and Output 08/29/17 08/30/17 08/30/17 23:59 07:59 15:59 Intake Total 1000 / 1000 Output Total 400 / 400 Balance 600 / 600 Intake: IV Fluids 1000 / 1000 0.9 % Sodium Chloride 1,000 ML 1000 / 1000 @ 3750 mls/hr IVC .Q16M ONE Rx# :[id number] Output: Catheter 400 / 400 Other: Weight 53.1 kg Blood Glucose* 201 Patient Weight 08/30/17 23:59 Weight 53.1 kg - General Appearance General appearance: chronically ill, frail EENT: ATNC, mucous membranes dry Neck: no JVD, supple Additional Comments: good areation ant bilat Cardiology: no edema, normal S1, normal S2 Gastrointestinal: no tenderness, no guarding Integumentary: warm and dry, ulcer Neurologic: no focal deficit Musculoskeletal: no deformities Psychiatric: mood/affect appropriate Results - Lab Results 08/31/17 02:41 08/31/17 02:41 Most recent lab results Calcium 8.9 mg/dL (8.6-10.3) 08/30/17 11:12 Phosphorus 7.6 mg/dL (2.7-4.5) H 08/30/17 11:12 Consult Discharge Plan - Plan Referrals: Macario Diallo MD [Primary Care Provider] -
[2017-08-30 13:32] LABS: Creatine Kinase 36 Units/L (30-223); Uric Acid 11.8 mg/dL (2.3-7.6)
[2017-08-30] MEDS ORDERED: NON-FORMULARY MEDICATION 1 EACH EACH (Oxygen [Oxygen] 1 EACH) SCH (13:45)
[2017-08-30 15:33] LABS: Sodium, Urine 74.6 mEq/L
[2017-08-30 17:33] LABS: Blood Urea Nitrogen > 130 mg/dL (8-23); Calcium 8.9 mg/dL (8.6-10.3); Carbon Dioxide 20 mEq/L (23-29); Chloride 95 mEq/L (98-107); Glucose 242 mg/dL (70-105); Potassium 5.1 mEq/L (3.5-5.1); Sodium 130 mEq/L (136-145); eGFR For African Americans 8 (> 60); eGFR For Non-African Americans 7 (> 60)
[2017-08-30] MEDS: *HR* Heparin 5,000 UNIT/ML VIAL SQ SCH (18:04)
[2017-08-30] MEDS: Insulin DETEMIR 100 UNIT/ML X5UNITS SQ SCH (21:45)
[2017-08-31] MEDS: Sodium Bicarbonate 150 MEQ in D5% in Water 1,000 ML IVC SCH (01:11)
[2017-08-31] MEDS ORDERED: Sodium Bicarbonate 150 MEQ in D5% in Water 1,000 ML IVC SCH (01:15)
[2017-08-31 02:59] LABS: Hematocrit 25.2 % (35.3-44.9); Mean Corpuscular HGB Conc 33.7 g/dL (31.6-35.5); Mean Corpuscular Hemoglobin 26.2 pg (28.0-33.3); Mean Corpuscular Volume 77.8 fL (83.0-100.0); Mean Platelet Volume 9.4 fL (9.4-12.4); Platelet Count 411 K/mcL (140-400); Red Blood Count 3.24 M/mcL (3.82-4.97); Red Cell Distribution Width 13.6 % (11.5-14.5)
[2017-08-31 03:16] LABS: Magnesium 1.4 mg/dL (1.6-2.6); Phosphorous 6.7 mg/dL (2.7-4.5)
[2017-08-31 03:24] LABS: Hemoglobin 8.5 g/dL (11.5-15.4)
[2017-08-31] MEDS: *HR* Heparin 5,000 UNIT/ML VIAL SQ SCH ×2 (04:49→17:56)
[2017-08-31] MEDS ORDERED: D5% in Water 1,000 ML IVC PRN (08:08)
[2017-08-31] MEDS ORDERED: *HR* Dextrose 50 % in Water (Syg) 50 ML SYRINGE IVP PRN (08:08)
[2017-08-31] MEDS ORDERED: Dextrose Gel 15 GM/37.5 ML TUBE PO PRN ×2 (08:08)
--- NOTE | 2017-08-31 09:15 | Nephrology Progress Note ---
<ValeriySaulo swann - Last Filed: 08/31/17 12:59> Date of Encounter: 08/31/17 Time of Encounter: 09:14 - Assessment and Plan (1) Acute renal failure Status: Suspected Pt has hx of chronic obstruction and recent removal of indwelling naylor catheter Naylor replaced 08/30/17 SrCr slowly improving Continue IV hydration Qualifiers: Acute renal failure type: with acute tubular necrosis Qualified Code(s): N17.0 - Acute kidney failure with tubular necrosis (2) Obstructive uropathy Status: Chronic CT abd/plv reveals mild bilateral hydronephrosis with uroepithelial thickening. Uroepithelial thickening has increased compared to prior study from July 2016. Bladder wall also demonstrates progressive thickening. Given the chronicity, these findings are likely related to bladder outlet obstruction. FeNa 6.7% indicating Post-Renal/Obstructive etiology ( bilateral ureter obstruction) (3) Chronic kidney disease, stage IV (severe) Status: Chronic Baseline GFR around 19 Avoid nephrotoxins Continue to monitor (4) Hyponatremia Status: Acute Improving SrNa Continue salt tablets and IVF Continue to monitor (6) Hypomagnesemia Status: Acute Supplement Magnesium Continue to monitor (7) UTI (urinary tract infection) Status: Acute UA consistent with UTI. Urine eosinophils negative Rocephin given in ED. Continue Levaquin. Avoid nephrotoxins Qualifiers: Urinary tract infection type: acute cystitis Hematuria presence: with hematuria Qualified Code(s): N30.01 - Acute cystitis with hematuria (8) HTN (hypertension) Status: Chronic Continue home meds and monitor. Qualifiers: Hypertension type: essential hypertension Qualified Code(s): I10 - Essential (primary) hypertension (9) Diabetic foot ulcers Status: Chronic Pt has multiple open areas on both feet and shins. Qualifiers: Diabetic foot ulcer location: midfoot Diabetes mellitus type: type 2 Laterality: unspecified laterality Non-pressure ulcer stage: limited to breakdown of skin Qualified Code(s): E11.621 - Type 2 diabetes mellitus with foot ulcer; L97.401 - Non-pressure chronic ulcer of unspecified heel and midfoot limited to breakdown of skin; L97.401 - Non-pressure chronic ulcer of unspecified heel and midfoot limited to breakdown of skin; L97.401 - Non- pressure chronic ulcer of unspecified heel and midfoot limited to breakdown of skin; L97.401 - Non-pressure chronic ulcer of unspecified heel and midfoot limited to breakdown of skin (10) Diabetes mellitus Status: Chronic Management per primary team Qualifiers: Diabetes mellitus type: type 2 Diabetes mellitus complication status: with skin complications Diabetes mellitus complication detail: with foot ulcer Diabetes mellitus chcf insulin use: with chcf use Qualified Code(s) : E11.621 - Type 2 diabetes mellitus with foot ulcer; N18.4 - Chronic kidney disease, stage 4 (severe); N18.4 - Chronic kidney disease, stage 4 (severe); N18.4 - Chronic kidney disease, stage 4 (severe); N18.4 - Chronic kidney disease , stage 4 (severe); Z79.4 - extermination supervisor (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; Z79.4 - halfway (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; Z79.4 - extermination supervisor (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; Z79.4 - extermination supervisor (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 (11) Hyperkalemia Status: Acute Improved s/p Kayexalate Switch from D5w with 3 amps bicarb to normal saline Continue IVF Continue to monitor Subjective Principal diagnosis: MERNA Interval history: Patient seen and examined resting comfortably in bed after eating breakfast. Patient reports mild nausea this AM but denies vomiting. She denies any other c/ o at this time. Patient had 850cc UOP yesterday. Case discussed with RN at bedside. Objective - Vital Signs Vital signs: Vital Signs Temp Pulse Resp BP Pulse Ox 08/31/17 07:06 98.9 F 84 14 101/63 96 08/31/17 05:16 98.1 F 88 16 101/60 99 08/31/17 01:09 98.3 F 87 16 103/57 98 08/30/17 18:48 97.6 F 107 16 102/69 99 08/30/17 16:22 97.7 F 72 20 119/66 93 08/30/17 11:29 101 15 108/67 99 08/30/17 10:54 98 08/30/17 10:24 98 13 148/78 99 08/30/17 09:30 102 16 121/66 100 Intake and Output 08/30/17 08/31/17 08/31/17 23:59 07:59 15:59 Intake Total 440 / 440 Output Total 450 / 450 500 / 500 Balance -450 / -450 -60 / -60 Intake: Oral 440 / 440 Output: Catheter 450 / 450 500 / 500 Other: Stool Size Large Moderate Stool Consistency liquid liquid Stool Color Brown Brown Blood Glucose* 256 76 - General Appearance General appearance: Present: well-developed, chronically ill, frail EENT: Present: ATNC, PERRL, mucous membranes moist Neck: Present: no JVD, supple Respiratory: Present: clear Cardiology: Present: no murmurs, no edema, regular rate, regular rhythm Gastrointestinal: Present: normoactive bowel sounds, no tenderness, no guarding , no organomegaly Additional Comments: naylor in place with clear yellow urine Integumentary: Present: warm and dry Additional Comments: dressings in place bilateral ankles Neurologic: Present: no focal deficit, alert and oriented x3 Additional Comments: dressings in place bilateral ankles Psychiatric: Present: mood/affect appropriate, cooperative - Lab 08/31/17 02:41 08/31/17 02:41 Most recent lab results Calcium 8.9 mg/dL (8.6-10.3) 08/30/17 16:57 Phosphorus 6.7 mg/dL (2.7-4.5) H 08/31/17 02:41 Magnesium 1.4 mg/dL (1.6-2.6) L 08/31/17 02:41 Urine Creatinine 49 mg/dL 08/30/17 15:19 Urine Sodium 74.6 mEq/L 08/30/17 15:19 - Allied health notes Allied health notes reviewed: nursing Consult Discharge Plan - Plan Instructions: Gestational Diabetes (DC), Naylor Catheter Placement and Care (DC) , Diabetic Foot Care (DC) Additional Instructions: Please follow up with your PCP and splunk dashboard developer after discharge. Referrals: Saulo Orourke DO [Resident] - 09/29/17 3:45 pm (Please follow up as schedule..) Macario Diallo MD [Primary Care Provider] - 09/08/17 2:15 pm (web request sent on 09/01/17) <Layla Dennis - Last Filed: 09/28/17 17:07> Date of Encounter: 08/31/17 - Assessment and Plan (1) MERNA (acute kidney injury) Status: Acute (2) Hyperkalemia Status: Resolved (3) Chronic kidney disease, stage IV (severe) Status: Chronic Objective - Lab 09/03/17 02:26 09/03/17 02:26 Most recent lab results Calcium 8.1 mg/dL (8.6-10.3) L 09/03/17 02:26 Phosphorus 2.8 mg/dL (2.7-4.5) 09/02/17 04:55 Magnesium 1.8 mg/dL (1.6-2.6) 09/03/17 02:26 Urine Creatinine 49 mg/dL 08/30/17 15:19 Urine Sodium 74.6 mEq/L 08/30/17 15:19 - Attending Attestation I examined this patient and my medical decision-making was reviewed with the Resident Physician. I agree with the documented findings, disposition and treatment plan as described except to the extent set forth below. Pt seen and examined feeling better today with good UOP at 850cc in the past 24hrs. SCr improved at 5.83, GFR 7. Lytes improving as well. Continue IVF. Continue naylor for now. No acute indication for SATURATION DIVER at this time. Continue to avoid nephrotoxins if possible.
[2017-08-31] MEDS: Aspirin Enteric Coated 81 MG Tablet PO SCH (09:27)
[2017-08-31 09:37] LABS: Potassium 4.1 mEq/L (3.5-5.1)
[2017-08-31] MEDS: Insulin LISPRO 300 UNITS/3 ML VIAL SQ SCH ×3 (11:47→20:55)
--- NOTE | 2017-08-31 14:41 | Internal Med Progress Note ---
<Gab Zavala - Last Filed: 08/31/17 14:38> Date of Encounter: 08/31/17 Time of Encounter: 10:15 - Assessment and plan (1) Chronic kidney disease, stage IV (severe) Current Visit: Yes Status: Chronic Assessment and plan: - CKD Stage IV with overlying MERNA, estimated GFR 6 - BUN/Cr of 122/5.83, improved from previous at 6.24 - K downtrending with kayexalate. Most recent 4.1, will monitor for improvement with renal function - Most likely related to known outlet obstruction as above - Nephro following, appreciate recommendations Plan - Avoid nephrotoxic agents - Continue naylor for outlet obstruction - Levaquin for possible infection - Will continue to monitor (2) Obstructive uropathy Current Visit: Yes Status: Chronic Assessment and plan: - History of obstructive uropathy requiring naylor catheter on discharge 3 weeks ago - Pt reports catheter falling out 2 weeks ago - Progressive worsening of symptoms of nausea, vomiting, weakness which have resolved - Naylor catheter in place - UA suspicious for infection, culture pending - CT showing mild bilateral hydronephrosis with uroepithelial thickening as well as bladder thickening. - Cannot rule out infection - FeNa 6.7% indicating Post-Renal/Obstructive etiology Plan - Continue naylor catheter and monitor renal function as below - As below for suspected UTI - Clinically improving. - Will follow up with urology as outpatient. (3) Acute pyelonephritis Current Visit: Yes Status: Acute Assessment and plan: - Bilateral mild hydronephrosis seen on CT likely related to outlet obstruction with possible underlying infection - UA suspicious, urine culture pending - No fevers, symptoms Plan - Naylor - Levaquin, day #2 - Continue to monitor (4) Anemia in chronic renal disease Current Visit: Yes Status: Chronic Assessment and plan: - H/H of 8.5/25.2, stable. Previous Hgb of 11.6 - Decreased from previous, but has been receiving IVF for MERNA - Asymptomatic - Will continue to monitor for now Qualifiers: Chronic kidney disease stage: stage 4 (severe) Qualified Code(s): N18.4 - Chronic kidney disease, stage 4 (severe); D63.1 - Anemia in chronic kidney disease; D63.1 - Anemia in chronic kidney disease (5) Nausea & vomiting Current Visit: Yes Status: Resolved Assessment and plan: - No further symptoms. Likely related to pyelonephritis Qualifiers: Vomiting type: unspecified Vomiting Intractability: unspecified Qualified Code(s): R11.2 - Nausea with vomiting, unspecified (6) Diabetic ulcer of left foot Current Visit: Yes Status: Chronic Assessment and plan: - Chronic diabetic ulcer on left heel and toe - Wrapping, wound care - Does not appear to be acutely infected Qualifiers: Diabetic foot ulcer location: toe Diabetes mellitus type: type 2 Non- pressure ulcer stage: with necrosis of muscle Qualified Code(s): E11.621 - Type 2 diabetes mellitus with foot ulcer; L97.523 - Non-pressure chronic ulcer of other part of left foot with necrosis of muscle; L97.523 - Non-pressure chronic ulcer of other part of left foot with necrosis of muscle; L97.523 - Non- pressure chronic ulcer of other part of left foot with necrosis of muscle; L97.523 - Non-pressure chronic ulcer of other part of left foot with necrosis of muscle (7) Diabetes mellitus Current Visit: Yes Status: Chronic Assessment and plan: - BS this AM of 195 - A1c of 9.8% in July 2017 - Continue SSI, basal insulin 30 units QHS Qualifiers: Diabetes mellitus type: type 2 Diabetes mellitus complication status: with skin complications Diabetes mellitus complication detail: with foot ulcer Diabetes mellitus long term care administrator insulin use: with fpc use Qualified Code(s) : E11.621 - Type 2 diabetes mellitus with foot ulcer; L97.509 - Non-pressure chronic ulcer of other part of unspecified foot with unspecified severity; L97.509 - Non-pressure chronic ulcer of other part of unspecified foot with unspecified severity; L97.509 - Non-pressure chronic ulcer of other part of unspecified foot with unspecified severity; L97.509 - Non-pressure chronic ulcer of other part of unspecified foot with unspecified severity; Z79.4 - alf (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; Z79.4 - terminal worker (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; Z79.4 - alf (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; Z79.4 - alf (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 (8) Hyperkalemia Current Visit: Yes Status: Acute Assessment and plan: Improved to wnl at 4.1 this AM with kayexalate. will continue to monitor Nephro following likely related to MERNA on CKD (9) Hyponatremia Current Visit: Yes Status: Acute Assessment and plan: Na of 133, improved from 130 likely related to fluid overload will continue to monitor with improved renal function (10) DVT prophylaxis Current Visit: Yes Status: Acute Assessment and plan: Heparin 5000 units q12 hours - Time Spent With Patient 25 - 35 minutes - Subjective Interval history: Patient was seen examined this morning. She reports no further complaints. No further episodes of n/v, f/c, diarrhea, weakness. She states her catheter fell out 2 weeks ago and she saw her urologist who said it was nothing to worry about. Her symptoms have subsided at this time. - Constitutional Vitals: Temp Pulse Resp BP Pulse Ox 97.8 F 77 14 122/57 99 08/31/17 11:25 08/31/17 11:25 08/31/17 11:25 08/31/17 11:25 08/31/17 11:25 General appearance: Present: A&O X 3, pleasant, answers questions appropriately Exam: Gen.: Vitals noted. No acute distress. AAOx3 HEENT: PERRL/EOMI, oropharynx clear, Normocephalic, atraumatic, MMM Cardiac: RRR, no murmur, +S1/S2 Pulmonary: CTA bilaterally, no wheezes, rales or rhonchi, equal chest expansion Abdomen: soft, mildly tender to palpation in epigastric and suprapubic region. , BS noted, no guarding Back: Mild flank pain bilaterally. MSK: ROM intact, no joint swelling noted Extremities: no BLE edema, nontender calf, no cyanosis or clubbing Neuro: A&Ox3, moves all extremities, no focal deficits Psych: Appropriate mood and behavior Internal Medicine: Result - Labs CBC & Chem 7: 08/31/17 02:41 08/31/17 02:41 Labs: Short CBC 08/31/17 Range/Units 02:41 WBC 6.5 (4.3-11.1) K/mcL Hgb 8.5 L D (11.5-15.4) g/dL Hct 25.2 L (35.3-44.9) % Plt Count 411 H (140-400) K/mcL BMP 08/30/17 08/31/17 16:57 02:41 Sodium 130 L 133 L Potassium 5.1 4.1 Chloride 95 L 94 L Carbon Dioxide 20 L 25 BUN > 130 H 122 H Creatinine 6.24 H 5.83 H Glucose 242 H 195 H Calcium 8.9 8.0 L Consult Discharge Plan - Plan Referrals: Macario Diallo MD [Primary Care Provider] - <Ryder Thomas - Last Filed: 08/31/17 16:37> Date of Encounter: 08/31/17 - Assessment and plan (1) Acute renal failure Current Visit: Yes Status: Suspected Qualifiers: Acute renal failure type: with acute tubular necrosis Qualified Code(s): N17.0 - Acute kidney failure with tubular necrosis (2) Hyperkalemia Current Visit: Yes Status: Acute (3) Obstructive uropathy Current Visit: Yes Status: Chronic (4) Diabetes mellitus Current Visit: Yes Status: Chronic Qualifiers: Diabetes mellitus type: type 2 Diabetes mellitus complication status: with skin complications Diabetes mellitus complication detail: with foot ulcer Diabetes mellitus fpc insulin use: with long term care administrator use Qualified Code(s) : E11.621 - Type 2 diabetes mellitus with foot ulcer; L97.509 - Non-pressure chronic ulcer of other part of unspecified foot with unspecified severity; L97.509 - Non-pressure chronic ulcer of other part of unspecified foot with unspecified severity; L97.509 - Non-pressure chronic ulcer of other part of unspecified foot with unspecified severity; L97.509 - Non-pressure chronic ulcer of other part of unspecified foot with unspecified severity; Z79.4 - alf (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; Z79.4 - terminal worker (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; Z79.4 - alf (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; Z79.4 - alf (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 (5) Hyponatremia Current Visit: Yes Status: Acute (6) UTI (urinary tract infection) Current Visit: Yes Status: Acute Qualifiers: Urinary tract infection type: acute cystitis Hematuria presence: with hematuria Qualified Code(s): N30.01 - Acute cystitis with hematuria (7) HTN (hypertension) Current Visit: No Status: Chronic Qualifiers: Hypertension type: essential hypertension Qualified Code(s): I10 - Essential (primary) hypertension (8) Chronic kidney disease, stage IV (severe) Current Visit: Yes Status: Chronic (9) Diabetic ulcer of left foot Current Visit: Yes Status: Chronic Qualifiers: Diabetic foot ulcer location: toe Diabetes mellitus type: type 2 Non- pressure ulcer stage: with necrosis of muscle Qualified Code(s): E11.621 - Type 2 diabetes mellitus with foot ulcer; L97.523 - Non-pressure chronic ulcer of other part of left foot with necrosis of muscle; L97.523 - Non-pressure chronic ulcer of other part of left foot with necrosis of muscle; L97.523 - Non- pressure chronic ulcer of other part of left foot with necrosis of muscle; L97.523 - Non-pressure chronic ulcer of other part of left foot with necrosis of muscle - Constitutional Vitals: Temp Pulse Resp BP Pulse Ox 98.1 F 89 14 123/62 98 08/31/17 15:12 08/31/17 15:12 08/31/17 15:12 08/31/17 15:12 08/31/17 15:12 Internal Medicine: Result - Labs CBC & Chem 7: 08/31/17 02:41 08/31/17 02:41 Labs: Short CBC 08/31/17 Range/Units 02:41 WBC 6.5 (4.3-11.1) K/mcL Hgb 8.5 L D (11.5-15.4) g/dL Hct 25.2 L (35.3-44.9) % Plt Count 411 H (140-400) K/mcL BMP 08/30/17 08/31/17 16:57 02:41 Sodium 130 L 133 L Potassium 5.1 4.1 Chloride 95 L 94 L Carbon Dioxide 20 L 25 BUN > 130 H 122 H Creatinine 6.24 H 5.83 H Glucose 242 H 195 H Calcium 8.9 8.0 L - Attending Attestation I examined this patient and my medical decision-making was reviewed with the Resident Physician on 08/31/17. I agree with the documented findings, disposition and treatment plan as described except to the extent set forth below. Ms Lacy is currently admitted for acute renal failure and hyperkalemia. She remains moderate to high risk due to potential for worsening clinical status. Ms Lacy feels OK but was concerned her sugar was low. No fever. No nausea at this time. No CP. Creatinine remains elevated but K seems better. Exam alert. Comfortable Mucus membranes dry Heart reg No wheeze at this time Abd soft I/P 1. Hyperkalemia - improved today 2. Acute renal failure - postobstructive Further diagnoses and plan as above.
[2017-08-31] MEDS: 0.9 % Sodium Chloride 1,000 ML IVC SCH (15:13)
[2017-08-31] MEDS: Insulin DETEMIR 100 UNIT/ML X5UNITS SQ SCH (20:55)
[2017-09-01 04:59] LABS: Hematocrit 25.7 % (35.3-44.9); Hemoglobin 8.3 g/dL (11.5-15.4); Mean Corpuscular HGB Conc 32.3 g/dL (31.6-35.5); Mean Corpuscular Hemoglobin 26.3 pg (28.0-33.3); Mean Corpuscular Volume 81.3 fL (83.0-100.0); Mean Platelet Volume 9.6 fL (9.4-12.4); Platelet Count 375 K/mcL (140-400); Red Blood Count 3.16 M/mcL (3.82-4.97)
[2017-09-01] MEDS: 0.9 % Sodium Chloride 1,000 ML IVC SCH ×2 (05:06→21:00)
[2017-09-01] MEDS: *HR* Heparin 5,000 UNIT/ML VIAL SQ SCH ×2 (05:10→16:58)
[2017-09-01 05:17] LABS: Potassium 3.4 mEq/L (3.5-5.1)
[2017-09-01 05:18] LABS: Calcium 7.9 mg/dL (8.6-10.3); Magnesium 1.7 mg/dL (1.6-2.6)
--- NOTE | 2017-09-01 07:10 | Nephrology Progress Note ---
<Saulo Orourke - Last Filed: 09/01/17 13:49> Date of Encounter: 09/01/17 Time of Encounter: 07:10 - Assessment and Plan (1) Acute renal failure Status: Suspected Pt has hx of chronic obstruction and recent removal of indwelling naylor catheter Naylor replaced 08/30/17 SrCr slowly improving, not back to baseline Continue IV hydration No need for dialysis at this time Continue to monitor Qualifiers: Acute renal failure type: with acute tubular necrosis Qualified Code(s): N17.0 - Acute kidney failure with tubular necrosis (2) Obstructive uropathy Status: Chronic CT abd/plv reveals mild bilateral hydronephrosis with uroepithelial thickening. Uroepithelial thickening has increased compared to prior study from July 2016. Bladder wall also demonstrates progressive thickening. Given the chronicity, these findings are likely related to bladder outlet obstruction. FeNa 6.7% indicating Post-Renal/Obstructive etiology ( bilateral ureter obstruction) (3) Chronic kidney disease, stage IV (severe) Status: Chronic Baseline GFR around 19 Avoid nephrotoxins Continue to monitor (4) Hyponatremia Status: Acute Improving SrNa Continue salt tablets and IVF Continue to monitor (5) Hypokalemia Status: Acute S/p Kayexalate Supplement K Continue normal saline IVF Continue to monitor (6) Hypomagnesemia Status: Acute Supplemented Magnesium Continue to monitor (7) UTI (urinary tract infection) Status: Acute UA consistent with UTI. Urine eosinophils negative Rocephin given in ED. Continue renally dosed Levaquin. Avoid nephrotoxins Qualifiers: Urinary tract infection type: acute cystitis Hematuria presence: with hematuria Qualified Code(s): N30.01 - Acute cystitis with hematuria (8) HTN (hypertension) Status: Chronic Continue home meds and monitor. Qualifiers: Hypertension type: essential hypertension Qualified Code(s): I10 - Essential (primary) hypertension (9) Diabetic foot ulcers Status: Chronic Patient has multiple open areas on both feet and shins. Qualifiers: Diabetic foot ulcer location: midfoot Diabetes mellitus type: type 2 Laterality: unspecified laterality Non-pressure ulcer stage: limited to breakdown of skin Qualified Code(s): E11.621 - Type 2 diabetes mellitus with foot ulcer; L97.401 - Non-pressure chronic ulcer of unspecified heel and midfoot limited to breakdown of skin; L97.401 - Non-pressure chronic ulcer of unspecified heel and midfoot limited to breakdown of skin; L97.401 - Non- pressure chronic ulcer of unspecified heel and midfoot limited to breakdown of skin; L97.401 - Non-pressure chronic ulcer of unspecified heel and midfoot limited to breakdown of skin (10) Diabetes mellitus Status: Chronic Management per primary team Qualifiers: Diabetes mellitus type: type 2 Diabetes mellitus complication status: with skin complications Diabetes mellitus complication detail: with foot ulcer Diabetes mellitus terminal operations supervisor insulin use: with senior living use Qualified Code(s) : E11.621 - Type 2 diabetes mellitus with foot ulcer; N18.4 - Chronic kidney disease, stage 4 (severe); N18.4 - Chronic kidney disease, stage 4 (severe); N18.4 - Chronic kidney disease, stage 4 (severe); N18.4 - Chronic kidney disease , stage 4 (severe); Z79.4 - intermodal owner operator truck driver (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; Z79.4 - detention (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; Z79.4 - intermodal owner operator truck driver (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; Z79.4 - detention (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 Subjective Principal diagnosis: MERNA Interval history: Patient seen and examined resting comfortably in bed eating breakfast. Patient denies any new c/o at this time. Patient had 2200cc UOP yesterday but renal function is not back to baseline. No need for dialysis at this time. Case discussed with RN at bedside. Objective - Vital Signs Vital signs: Vital Signs Temp Pulse Resp BP Pulse Ox 09/01/17 06:36 97.8 F 88 16 120/69 98 09/01/17 03:20 98.0 F 89 19 109/62 97 08/31/17 23:22 98.7 F 78 16 117/63 96 08/31/17 20:11 98.3 F 97 16 114/60 96 08/31/17 15:12 98.1 F 89 14 123/62 98 08/31/17 11:25 97.8 F 77 14 122/57 99 08/31/17 09:46 96 Intake and Output 08/31/17 08/31/17 09/01/17 15:59 23:59 07:59 Intake Total 480 / 480 60 / 60 1120 / 1120 Output Total 700 / 700 1000 / 1000 550 / 550 Balance -220 / -220 -940 / -940 570 / 570 Intake: IV Fluids 1000 / 1000 0.9 % Sodium Chloride 1,000 ML 1000 / 1000 @ 75 mls/hr IVC .[id number] [facility] Rx #:[id number] Oral 480 / 480 60 / 60 120 / 120 Output: Urine 0 / 0 1000 / 1000 0 / 0 Catheter 700 / 700 550 / 550 Other: Meal Lunch Percent of Meal Consumed 50% Weight 60 kg Blood Glucose* 192 225 215 Patient Weight 09/01/17 23:59 Weight 60 kg - General Appearance General appearance: Present: appears started age, cachectic, chronically ill, frail EENT: Present: ATNC, PERRL Neck: Present: supple Respiratory: Present: clear Cardiology: Present: no murmurs, no edema, regular rate, regular rhythm, normal S1, normal S2 Gastrointestinal: Present: normoactive bowel sounds, no tenderness, no guarding , no organomegaly Integumentary: Present: no rash, warm and dry (dressings in place bilateral ankles) Neurologic: Present: no focal deficit, alert and oriented x3 Musculoskeletal: Present: no erythema (dressings in place bilateral ankles), no cyanosis Psychiatric: Present: mood/affect appropriate, cooperative - Lab 09/01/17 04:11 09/01/17 04:11 Most recent lab results Calcium 7.9 mg/dL (8.6-10.3) L 09/01/17 04:11 Phosphorus 6.7 mg/dL (2.7-4.5) H 08/31/17 02:41 Magnesium 1.7 mg/dL (1.6-2.6) 09/01/17 04:11 Urine Creatinine 49 mg/dL 08/30/17 15:19 Urine Sodium 74.6 mEq/L 08/30/17 15:19 Consult Discharge Plan - Plan Instructions: Gestational Diabetes (DC), Naylor Catheter Placement and Care (DC) , Diabetic Foot Care (DC) Additional Instructions: Please follow up with your PCP and labour market economist after discharge. Referrals: Saulo Orourke DO [Resident] - 09/29/17 3:45 pm (Please follow up as schedule..) Macario Diallo MD [Primary Care Provider] - 09/08/17 2:15 pm (web request sent on 09/01/17) <Layla Dennis - Last Filed: 09/28/17 17:24> Date of Encounter: 09/01/17 - Assessment and Plan (1) MERNA (acute kidney injury) Status: Acute (2) Hyperkalemia Status: Resolved (3) Chronic kidney disease, stage IV (severe) Status: Chronic Objective - Lab 09/03/17 02:26 09/03/17 02:26 Most recent lab results Calcium 8.1 mg/dL (8.6-10.3) L 09/03/17 02:26 Phosphorus 2.8 mg/dL (2.7-4.5) 09/02/17 04:55 Magnesium 1.8 mg/dL (1.6-2.6) 09/03/17 02:26 Urine Creatinine 49 mg/dL 08/30/17 15:19 Urine Sodium 74.6 mEq/L 08/30/17 15:19 - Attending Attestation I examined this patient and my medical decision-making was reviewed with the Resident Physician. I agree with the documented findings, disposition and treatment plan as described except to the extent set forth below. Pt seen and examined with no new complaints, feeling better. UOP of 2200cc noted in the past 24hrs. SCr improving at 4.02, GFR 11. No caute indication for INCLUSION TEACHER at this time. Lytes improving. Continue IVF. Continue to avoid nephrotoxins if possible
[2017-09-01] MEDS ORDERED: Potassium Effervescent 25 MEQ TABLET.EFF PO ONE (07:11)
--- NOTE | 2017-09-01 08:38 | Internal Med Progress Note ---
<Gab Zavala - Last Filed: 09/01/17 14:07> Date of Encounter: 09/01/17 Time of Encounter: 08:35 - Assessment and plan (1) Chronic kidney disease, stage IV (severe) Current Visit: Yes Status: Chronic Assessment and plan: - CKD Stage IV with overlying MERNA, estimated GFR 6. Baseline Cr of 2-3 - BUN/Cr of 93/4.02, improved from previous at 5.83 - HyperK resolved with kayexalate. Most recent 3.4 will monitor and replace as necessary - Most likely related to known outlet obstruction as above - Nephro following, appreciate recommendations Plan - Avoid nephrotoxic agents - Continue naylor for outlet obstruction - Levaquin for possible infection, day 3 - Will continue to monitor (2) Obstructive uropathy Current Visit: Yes Status: Chronic Assessment and plan: - History of obstructive uropathy requiring naylor catheter on discharge 3 weeks ago - Pt reports catheter falling out 2 weeks ago - Progressive worsening of symptoms of nausea, vomiting, weakness which have resolved - Naylor catheter in place - UA suspicious for infection, culture pending - CT showing mild bilateral hydronephrosis with uroepithelial thickening as well as bladder thickening. - Cannot rule out infection - FeNa 6.7% indicating Post-Renal/Obstructive etiology Plan - Continue naylor catheter and monitor renal function as below - As below for suspected UTI - Clinically improving. - Will follow up with urology as outpatient. (3) Acute pyelonephritis Current Visit: Yes Status: Acute Assessment and plan: - Bilateral mild hydronephrosis seen on CT likely related to outlet obstruction with possible underlying infection - UA suspicious, urine culture pending - No fevers, symptoms Plan - Naylor - Levaquin, day #3 - Continue to monitor (4) Anemia in chronic renal disease Current Visit: Yes Status: Chronic Assessment and plan: - H/H of 8.3/25.7, stable. Previous Hgb of 8.5 - Asymptomatic - Will continue to monitor for now Qualifiers: Chronic kidney disease stage: stage 4 (severe) Qualified Code(s): N18.4 - Chronic kidney disease, stage 4 (severe); D63.1 - Anemia in chronic kidney disease; D63.1 - Anemia in chronic kidney disease (5) Nausea & vomiting Current Visit: Yes Status: Resolved Assessment and plan: - No further symptoms. Likely related to pyelonephritis Qualifiers: Vomiting type: unspecified Vomiting Intractability: unspecified Qualified Code(s): R11.2 - Nausea with vomiting, unspecified (6) Diabetic ulcer of left foot Current Visit: Yes Status: Chronic Assessment and plan: - Chronic diabetic ulcer on left heel and toe - Wrapping, wound care - Contact precautions - Does not appear to be acutely infected Qualifiers: Diabetic foot ulcer location: toe Diabetes mellitus type: type 2 Non- pressure ulcer stage: with necrosis of muscle Qualified Code(s): E11.621 - Type 2 diabetes mellitus with foot ulcer; L97.523 - Non-pressure chronic ulcer of other part of left foot with necrosis of muscle; L97.523 - Non-pressure chronic ulcer of other part of left foot with necrosis of muscle; L97.523 - Non- pressure chronic ulcer of other part of left foot with necrosis of muscle; L97.523 - Non-pressure chronic ulcer of other part of left foot with necrosis of muscle (7) Diabetes mellitus Current Visit: Yes Status: Chronic Assessment and plan: - BS this AM of 197 - A1c of 9.8% in July 2017 - Continue SSI, basal insulin 30 units QHS Qualifiers: Diabetes mellitus type: type 2 Diabetes mellitus complication status: with skin complications Diabetes mellitus complication detail: with foot ulcer Diabetes mellitus skilled nursing insulin use: with skilled nursing use Qualified Code(s) : E11.621 - Type 2 diabetes mellitus with foot ulcer; L97.509 - Non-pressure chronic ulcer of other part of unspecified foot with unspecified severity; L97.509 - Non-pressure chronic ulcer of other part of unspecified foot with unspecified severity; L97.509 - Non-pressure chronic ulcer of other part of unspecified foot with unspecified severity; L97.509 - Non-pressure chronic ulcer of other part of unspecified foot with unspecified severity; 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 will continue to monitor Nephro following likely related to MERNA on CKD (9) Hyponatremia Current Visit: Yes Status: Acute Assessment and plan: Na of 135, improved from 133 likely related to fluid overload will continue to monitor with improved renal function (10) DVT prophylaxis Current Visit: Yes Status: Acute Assessment and plan: Heparin 5000 units q12 hours - Subjective Interval history: Patient was seen examined this morning. She reports no further complaints. No further episodes of n/v, f/c, diarrhea, weakness. She is resting comfortably during time of interview. - Constitutional Vitals: Temp Pulse Resp BP Pulse Ox 97.8 F 88 16 120/69 98 09/01/17 06:36 09/01/17 06:36 09/01/17 06:36 09/01/17 06:36 09/01/17 06:36 General appearance: Present: A&O X 3, pleasant, answers questions appropriately Exam: Gen.: Vitals noted. No acute distress. Lethargic this morning but answers appropriately HEENT: PERRL/EOMI, oropharynx clear, Normocephalic, atraumatic, MMM Cardiac: RRR, no murmur, +S1/S2 Pulmonary: CTA bilaterally, no wheezes, rales or rhonchi, equal chest expansion Abdomen: soft, nontender, BS noted, no guarding Extremities: no BLE edema, nontender calf, no cyanosis or clubbing. Dressings in place on left heel and toe Neuro: moves all extremities, no focal deficits Psych: Appropriate mood and behavior Internal Medicine: Result - Labs CBC & Chem 7: 09/01/17 04:11 09/01/17 04:11 Labs: Short CBC 09/01/17 Range/Units 04:11 WBC 8.1 (4.3-11.1) K/mcL Hgb 8.3 L (11.5-15.4) g/dL Hct 25.7 L (35.3-44.9) % Plt Count 375 (140-400) K/mcL BMP 08/31/17 09/01/17 02:41 04:11 Sodium 133 L 135 L Potassium 4.1 3.4 L Chloride 94 L 95 L Carbon Dioxide 25 30 H BUN 122 H 93 H Creatinine 5.83 H 4.02 H Glucose 195 H 197 H Calcium 8.0 L 7.9 L Consult Discharge Plan - Plan Referrals: Macario Diallo MD [Primary Care Provider] - (web request sent on 09/01/17) Prescriptions: levoFLOXacin [Levaquin] 500 mg PO Q48H #2 tablet <Bert Yadav - Last Filed: 09/01/17 18:49> Date of Encounter: 09/01/17 - Constitutional Vitals: Temp Pulse Resp BP Pulse Ox 97.5 F L 89 17 124/70 97 09/01/17 15:24 09/01/17 15:24 09/01/17 15:24 09/01/17 15:24 09/01/17 15:24 Internal Medicine: Result - Labs CBC & Chem 7: 09/01/17 04:11 09/01/17 04:11 Labs: Short CBC 09/01/17 Range/Units 04:11 WBC 8.1 (4.3-11.1) K/mcL Hgb 8.3 L (11.5-15.4) g/dL Hct 25.7 L (35.3-44.9) % Plt Count 375 (140-400) K/mcL BMP 09/01/17 04:11 Sodium 135 L Potassium 3.4 L Chloride 95 L Carbon Dioxide 30 H BUN 93 H Creatinine 4.02 H Glucose 197 H Calcium 7.9 L - Attending Attestation I examined this patient and my medical decision-making was reviewed with the Resident Physician. I agree with the documented findings, disposition and treatment plan as described except to the extent set forth below.
[2017-09-01] MEDS: Levofloxacin 500 MG/100 ML 500 MG/100 ML BAG IVPB SCH (09:46)
[2017-09-01] MEDS: Aspirin Enteric Coated 81 MG Tablet PO SCH (09:47)
[2017-09-01] MEDS: Insulin LISPRO 300 UNITS/3 ML VIAL SQ SCH ×4 (09:47→21:00)
--- NOTE | 2017-09-01 10:14 | Discharge Summary ---
Date of Encounter: 09/01/17 Time of Encounter: 10:10 - Discharge Diagnosis (1) Chronic kidney disease, stage IV (severe) Priority: Secondary Status: Chronic (2) Obstructive uropathy Priority: Primary Status: Chronic (3) Acute pyelonephritis Priority: Secondary Status: Acute (4) Anemia in chronic renal disease Priority: Secondary Status: Chronic Qualifiers: Chronic kidney disease stage: stage 4 (severe) Qualified Code(s): N18.4 - Chronic kidney disease, stage 4 (severe); D63.1 - Anemia in chronic kidney disease; D63.1 - Anemia in chronic kidney disease (5) Nausea & vomiting Priority: Secondary Status: Resolved Qualifiers: Vomiting type: unspecified Vomiting Intractability: unspecified Qualified Code(s): R11.2 - Nausea with vomiting, unspecified (6) Diabetic ulcer of left foot Priority: Secondary Status: Chronic Qualifiers: Diabetic foot ulcer location: toe Diabetes mellitus type: type 2 Non- pressure ulcer stage: with necrosis of muscle Qualified Code(s): E11.621 - Type 2 diabetes mellitus with foot ulcer; L97.523 - Non-pressure chronic ulcer of other part of left foot with necrosis of muscle; L97.523 - Non-pressure chronic ulcer of other part of left foot with necrosis of muscle; L97.523 - Non- pressure chronic ulcer of other part of left foot with necrosis of muscle; L97.523 - Non-pressure chronic ulcer of other part of left foot with necrosis of muscle (7) Diabetes mellitus Priority: Secondary Status: Chronic Qualifiers: Diabetes mellitus type: type 2 Diabetes mellitus complication status: with skin complications Diabetes mellitus complication detail: with foot ulcer Diabetes mellitus half-way insulin use: with planning consultant use Qualified Code(s) : E11.621 - Type 2 diabetes mellitus with foot ulcer; L97.509 - Non-pressure chronic ulcer of other part of unspecified foot with unspecified severity; L97.509 - Non-pressure chronic ulcer of other part of unspecified foot with unspecified severity; L97.509 - Non-pressure chronic ulcer of other part of unspecified foot with unspecified severity; L97.509 - Non-pressure chronic ulcer of other part of unspecified foot with unspecified severity; 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; 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; Z79.4 - penitentiary (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; Z79.4 - penitentiary (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 (8) Hyperkalemia Priority: Secondary Status: Resolved (9) Hyponatremia Priority: Secondary Status: Acute (10) DVT prophylaxis Priority: Secondary Status: Acute - Discharge Medications Prescriptions: levoFLOXacin [Levaquin] 500 mg PO Q48H #2 tablet Home Medications: Metoprolol [Lopressor] 12.5 mg PO BID 03/01/16 [History] Pravastatin Sodium 10 mg PO HS 03/01/16 [History] Insulin Glargine,Hum.rec.anlog [Lantus Solostar] 30 units SQ HS 07/10/17 [ History] Aspirin Enteric Coated [Aspirin EC] 81 mg PO DAILY 08/04/17 [History] Oxygen 1 each .ROUTE AD 08/04/17 [History] Ferrous Sulfate 325 mg PO BIDWM #30 tablet 08/10/17 [Rx] Sodium Chloride 1 gm PO BID #30 tablet 08/10/17 [Rx] levoFLOXacin [Levaquin] 500 mg PO Q48H #2 tablet 09/01/17 [Rx] Allergies/Adverse Reactions: 3 Allergy/AdvReac Type Severity Reaction Status Date / Time acetaminophen [From Tylenol] Allergy See Verified 08/30/17 09:37 Comments Influenza Virus Vaccines Allergy See Verified 08/30/17 09:37 Comments Date of admission: 08/30/17 07:39 Primary care physician: Macario Diallo MD Consults: 08/30/17 10:56 Consult to Nutrition [CONS] Routine Comment: Kidney failure Consulting Provider: NUTRITION Reason for Dietary Consult: Other Consult to Sewer Connector [CONS] Routine Reason for SW Consult: home health Discharging clinician: Gab Zavala Anticipated date of discharge: 09/01/17 - Patient Status Condition: Fair - Discharge Instructions Follow Up With: Macario Diallo MD [Primary Care Provider] - (web request sent on 09/01/17) Hospital course: Ms. Lacy is a 72 year old female - Time Spent with Patient Total time spent providing and/or coordinating discharge services: - Constitutional Vitals: Temp Pulse Resp BP Pulse Ox 97.8 F 88 16 120/69 98 09/01/17 06:36 09/01/17 06:36 09/01/17 06:36 09/01/17 06:36 09/01/17 10:02 General appearance: Present: A&O X 3, pleasant, answers questions appropriately
--- NOTE | 2017-09-01 17:22 | Electrocardiograph Report ---
[address] [place], [place] [address] Test Date: 2017-08-30 Pat Name: Lisa Lacy Department: [id number] Room: 2A13 Gender: F Supervisor Mails: EKP : 1945 Requested By: Dalila See Order Number: [id number] Reading MD: Andrew Lawrence Measurements Intervals [place] Rate: 99 P: 56 [place]: 211 QRS: -12 QRSD: 120 T: 151 QT: 363 QTc: 419 Interpretive Statements SINUS RHYTHM WITH FIRST DEGREE AV BLOCK SEPTAL MYOCARDIAL INFARCTION, PROBABLY OLD ST DEVIATION AND MODERATE T-WAVE ABNORMALITY, CONSIDER LATERAL ISCHEMIA Electronically Signed On 09-01-2017 17:20:59 EST by Andrew Lawrence
[2017-09-01] MEDS: Insulin DETEMIR 100 UNIT/ML X5UNITS SQ SCH (20:59)
[2017-09-02 05:14] LABS: Hematocrit 25.1 % (35.3-44.9); Hemoglobin 7.9 g/dL (11.5-15.4); Mean Corpuscular HGB Conc 31.5 g/dL (31.6-35.5); Mean Corpuscular Hemoglobin 26.2 pg (28.0-33.3); Mean Corpuscular Volume 83.4 fL (83.0-100.0); Mean Platelet Volume 9.1 fL (9.4-12.4); Platelet Count 329 K/mcL (140-400); Red Blood Count 3.01 M/mcL (3.82-4.97); Red Cell Distribution Width 14.2 % (11.5-14.5)
[2017-09-02 05:26] LABS: Magnesium 1.5 mg/dL (1.6-2.6); Phosphorous 2.8 mg/dL (2.7-4.5); Potassium 3.4 mEq/L (3.5-5.1)
[2017-09-02] MEDS: *HR* Heparin 5,000 UNIT/ML VIAL SQ SCH ×2 (06:00→16:22)
[2017-09-02] MEDS: Aspirin Enteric Coated 81 MG Tablet PO SCH (07:36)
[2017-09-02] MEDS: Insulin LISPRO 300 UNITS/3 ML VIAL SQ SCH ×4 (07:37→20:26)
--- NOTE | 2017-09-02 08:05 | Nephrology Progress Note ---
<Saulo Orourke - Last Filed: 09/02/17 13:26> Date of Encounter: 09/02/17 Time of Encounter: 08:05 - Assessment and Plan (1) Acute renal failure Status: Suspected Pt has hx of chronic obstruction and recent removal of indwelling naylor catheter Naylor replaced 08/30/17 SrCr slowly improving, not back to baseline Continue IV hydration No need for dialysis at this time Stable for transfer to rehab Patient will need BMP in 1 week and outpatient nephrology follow up Qualifiers: Acute renal failure type: with acute tubular necrosis Qualified Code(s): N17.0 - Acute kidney failure with tubular necrosis (2) Obstructive uropathy Status: Chronic CT abd/plv reveals mild bilateral hydronephrosis with uroepithelial thickening. Uroepithelial thickening has increased compared to prior study from July 2016. Bladder wall also demonstrates progressive thickening. Given the chronicity, these findings are likely related to bladder outlet obstruction. FeNa 6.7% indicating Post-Renal/Obstructive etiology ( bilateral ureter obstruction) (3) Chronic kidney disease, stage IV (severe) Status: Chronic Baseline GFR around 19 Avoid nephrotoxins Continue to monitor (4) Hyponatremia Status: Acute Resolved Continue salt tablets and IVF Continue to monitor (5) Hypokalemia Status: Acute S/p Kayexalate Supplement K Continue normal saline IVF Continue to monitor (6) Hypomagnesemia Status: Acute Supplemented Magnesium Continue to monitor (7) UTI (urinary tract infection) Status: Acute UA consistent with UTI. Urine eosinophils negative Rocephin given in ED. Continue renally dosed Levaquin. Avoid nephrotoxins Qualifiers: Urinary tract infection type: acute cystitis Hematuria presence: with hematuria Qualified Code(s): N30.01 - Acute cystitis with hematuria (8) HTN (hypertension) Status: Chronic Continue home meds and monitor. Qualifiers: Hypertension type: essential hypertension Qualified Code(s): I10 - Essential (primary) hypertension (9) Diabetic foot ulcers Status: Chronic Patient has multiple open areas on both feet and shins. Qualifiers: Diabetic foot ulcer location: midfoot Diabetes mellitus type: type 2 Laterality: unspecified laterality Non-pressure ulcer stage: limited to breakdown of skin Qualified Code(s): E11.621 - Type 2 diabetes mellitus with foot ulcer; L97.401 - Non-pressure chronic ulcer of unspecified heel and midfoot limited to breakdown of skin; L97.401 - Non-pressure chronic ulcer of unspecified heel and midfoot limited to breakdown of skin; L97.401 - Non- pressure chronic ulcer of unspecified heel and midfoot limited to breakdown of skin; L97.401 - Non-pressure chronic ulcer of unspecified heel and midfoot limited to breakdown of skin (10) Diabetes mellitus Status: Chronic Management per primary team Qualifiers: Diabetes mellitus type: type 2 Diabetes mellitus complication status: with skin complications Diabetes mellitus complication detail: with foot ulcer Diabetes mellitus correction insulin use: with meterman use Qualified Code(s) : E11.621 - Type 2 diabetes mellitus with foot ulcer; N18.4 - Chronic kidney disease, stage 4 (severe); N18.4 - Chronic kidney disease, stage 4 (severe); N18.4 - Chronic kidney disease, stage 4 (severe); N18.4 - Chronic kidney disease , stage 4 (severe); Z79.4 - [facility] (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; 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 Patient reports her battery in her hearing aid and would like assistance obtaining another battery. Patient had 2500cc UOP yesterday but renal function is slowly progressing back to baseline. No need for dialysis at this time. Objective - Vital Signs Vital signs: Vital Signs Temp Pulse Resp BP Pulse Ox 09/02/17 07:32 97.5 F L 65 16 119/71 99 09/02/17 04:25 97.6 F 70 16 149/73 97 09/02/17 00:44 98.0 F 89 16 138/73 98 09/01/17 20:14 98.6 F 92 16 151/65 99 09/01/17 15:24 97.5 F L 89 17 124/70 97 09/01/17 11:00 97.5 F L 89 17 114/69 98 09/01/17 10:02 98 Intake and Output 09/01/17 09/02/17 09/02/17 23:59 07:59 15:59 Intake Total 1360 / 1360 120 / 120 Output Total 0 / 0 2500 / 2500 Balance 1360 / 1360 -2380 / -2380 Intake: IV Fluids 1000 / 1000 0.9 % Sodium Chloride 1,000 ML 1000 / 1000 @ 75 mls/hr IVC .[id number] VIKA Rx #:[id number] Oral 360 / 360 120 / 120 Output: Urine 0 / 0 2500 / 2500 Other: Weight 60.4 kg Blood Glucose* 280 122 Patient Weight 09/02/17 23:59 Weight 60.4 kg - General Appearance General appearance: Present: appears started age, cachectic, chronically ill EENT: Present: ATNC, PERRL, mucous membranes moist Neck: Present: supple Respiratory: Present: clear Cardiology: Present: no murmurs, no rub, no gallops, normal S1, normal S2 Gastrointestinal: Present: normoactive bowel sounds, no tenderness, no guarding , no organomegaly Integumentary: Present: no rash, warm and dry (dressings in place bilateral ankles) Neurologic: Present: no focal deficit, alert and oriented x3 Musculoskeletal: Present: no erythema (dressings in place bilateral ankles), no cyanosis Psychiatric: Present: mood/affect appropriate, cooperative - Lab 09/02/17 04:55 09/02/17 04:55 Most recent lab results Calcium 8.0 mg/dL (8.6-10.3) L 09/02/17 04:55 Phosphorus 2.8 mg/dL (2.7-4.5) 09/02/17 04:55 Magnesium 1.5 mg/dL (1.6-2.6) L 09/02/17 04:55 Urine Creatinine 49 mg/dL 08/30/17 15:19 Urine Sodium 74.6 mEq/L 08/30/17 15:19 Consult Discharge Plan - Plan Instructions: Gestational Diabetes (DC), Naylor Catheter Placement and Care (DC) , Diabetic Foot Care (DC) Additional Instructions: Please follow up with your PCP and oil field operator after discharge. Referrals: Saulo Orourke DO [Resident] - 09/29/17 3:45 pm (Please follow up as schedule..) Macario Diallo MD [Primary Care Provider] - 09/08/17 2:15 pm (web request sent on 09/01/17) <Layla Dennis - Last Filed: 09/29/17 23:22> Date of Encounter: 09/02/17 - Assessment and Plan (1) MERNA (acute kidney injury) Status: Acute (2) Hyperkalemia Status: Resolved (3) Chronic kidney disease, stage IV (severe) Status: Chronic Objective - Lab 09/03/17 02:26 09/03/17 02:26 Most recent lab results Calcium 8.1 mg/dL (8.6-10.3) L 09/03/17 02:26 Phosphorus 2.8 mg/dL (2.7-4.5) 09/02/17 04:55 Magnesium 1.8 mg/dL (1.6-2.6) 09/03/17 02:26 Urine Creatinine 49 mg/dL 08/30/17 15:19 Urine Sodium 74.6 mEq/L 08/30/17 15:19 - Attending Attestation I examined this patient and my medical decision-making was reviewed with the Resident Physician. I agree with the documented findings, disposition and treatment plan as described except to the extent set forth below. Pt seen and examined with no new complaints. SCr continues to improve. No acute indication for BAG FILLER at this time. continue IVF. Continue naylor. UOP great at 2500cc in the past 24hrs. continue to avoid nephrotoxins if possible.
[2017-09-02] MEDS ORDERED: Potassium Effervescent 25 MEQ TABLET.EFF PO ONE (08:07)
[2017-09-02] MEDS: 0.9 % Sodium Chloride 1,000 ML IVC SCH (10:02)
--- NOTE | 2017-09-02 14:46 | Internal Med Progress Note ---
<Gab Zavala - Last Filed: 09/02/17 14:43> Date of Encounter: 09/02/17 Time of Encounter: 09:00 - Assessment and plan (1) Acute worsening of stage 4 chronic kidney disease Current Visit: Yes Status: Acute Assessment and plan: - CKD Stage IV with overlying MERNA, estimated GFR 6. Baseline Cr of 2-3 - BUN/Cr of 63/2.90, improved from previous at 4.20 - HyperK resolved with kayexalate. Most recent 3.4 will monitor and replace as necessary - Magnesium low, will replace with nephro - Most likely related to known outlet obstruction as below - Nephro following, appreciate recommendations Plan - Avoid nephrotoxic agents - Continue naylor for outlet obstruction - Levaquin for possible infection, day 4 - Will continue to monitor (2) Chronic kidney disease, stage IV (severe) Current Visit: Yes Status: Chronic Assessment and plan: - As above (3) Obstructive uropathy Current Visit: Yes Status: Chronic Assessment and plan: - History of obstructive uropathy requiring naylor catheter on discharge 3 weeks ago - Pt reports catheter falling out 2 weeks ago - Progressive worsening of symptoms of nausea, vomiting, weakness which have resolved - Naylor catheter in place - UA suspicious for infection, culture pending, no growth preliminary - CT showing mild bilateral hydronephrosis with uroepithelial thickening as well as bladder thickening. - Cannot rule out infection - FeNa 6.7% indicating Post-Renal/Obstructive etiology Plan - Continue naylor catheter and monitor renal function as below - As below for suspected UTI - Clinically improving. - Will follow up with urology as outpatient. (4) Acute pyelonephritis Current Visit: Yes Status: Acute Assessment and plan: - Bilateral mild hydronephrosis seen on CT likely related to outlet obstruction with possible underlying infection - UA suspicious, urine culture pending. No growth preliminary - No fevers, WBC Plan - Naylor - Levaquin, day #4 - Continue to monitor (5) Anemia in chronic renal disease Current Visit: Yes Status: Chronic Assessment and plan: - H/H of 7.9/25.1, stable. Previous Hgb of 8.3 - Asymptomatic - Will continue to monitor for now Qualifiers: Chronic kidney disease stage: stage 4 (severe) Qualified Code(s): N18.4 - Chronic kidney disease, stage 4 (severe); D63.1 - Anemia in chronic kidney disease; D63.1 - Anemia in chronic kidney disease (6) Nausea & vomiting Current Visit: Yes Status: Resolved Assessment and plan: - No further symptoms. Likely related to pyelonephritis Qualifiers: Vomiting type: unspecified Vomiting Intractability: unspecified Qualified Code(s): R11.2 - Nausea with vomiting, unspecified (7) Diabetic ulcer of left foot Current Visit: Yes Status: Chronic Assessment and plan: - Chronic diabetic ulcer on left heel and toe - Wrapping, wound care - Contact precautions. MRSA nare positive - Does not appear to be acutely infected Qualifiers: Diabetic foot ulcer location: toe Diabetes mellitus type: type 2 Non- pressure ulcer stage: with necrosis of muscle Qualified Code(s): E11.621 - Type 2 diabetes mellitus with foot ulcer; L97.523 - Non-pressure chronic ulcer of other part of left foot with necrosis of muscle; L97.523 - Non-pressure chronic ulcer of other part of left foot with necrosis of muscle; L97.523 - Non- pressure chronic ulcer of other part of left foot with necrosis of muscle; L97.523 - Non-pressure chronic ulcer of other part of left foot with necrosis of muscle (8) Diabetes mellitus Current Visit: Yes Status: Chronic Assessment and plan: - BS this AM of 75 - A1c of 9.8% in July 2017 - Continue SSI, basal insulin 30 units QHS Qualifiers: Diabetes mellitus type: type 2 Diabetes mellitus complication status: with skin complications Diabetes mellitus complication detail: with foot ulcer Diabetes mellitus long-term insulin use: with roasterman use Qualified Code(s) : E11.621 - Type 2 diabetes mellitus with foot ulcer; L97.509 - Non-pressure chronic ulcer of other part of unspecified foot with unspecified severity; L97.509 - Non-pressure chronic ulcer of other part of unspecified foot with unspecified severity; L97.509 - Non-pressure chronic ulcer of other part of unspecified foot with unspecified severity; L97.509 - Non-pressure chronic ulcer of other part of unspecified foot with unspecified severity; Z79.4 - rn long term care (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; Z79.4 - rn long term care (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; Z79.4 - rn long term care (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; Z79.4 - rn long term care (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 (9) Hyperkalemia Current Visit: Yes Status: Resolved Assessment and plan: Low this AM at 3.4 after kayexalate yesterday Will replenish with 40 mEq today. will continue to monitor Nephro following likely related to MERNA on CKD (10) Hyponatremia Current Visit: Yes Status: Resolved Assessment and plan: Na of 138, improved from 135 likely related to fluid overload will continue to monitor with improved renal function (11) DVT prophylaxis Current Visit: Yes Status: Acute Assessment and plan: Heparin 5000 units q12 hours - Time Spent With Patient 25 - 35 minutes - Subjective Interval history: Patient was seen examined this morning. She reports no further complaints. No further episodes of n/v, f/c, diarrhea, weakness. She is resting comfortably during time of interview. States she is still experiencing dysuria, but otherwise no complaints. - Constitutional Vitals: Temp Pulse Resp BP Pulse Ox 97.6 F 69 16 121/70 98 09/02/17 11:13 09/02/17 11:13 09/02/17 11:13 09/02/17 11:13 09/02/17 11:13 General appearance: Present: A&O X 3, pleasant, answers questions appropriately Exam: Gen.: Vitals noted. No acute distress. hard of hearing but answers appropriately HEENT: PERRL/EOMI, oropharynx clear, Normocephalic, atraumatic, MMM Cardiac: RRR, no murmur, +S1/S2 Pulmonary: CTA bilaterally, no wheezes, rales or rhonchi, equal chest expansion Abdomen: soft, nontender, BS noted, no guarding Extremities: no BLE edema, nontender calf, no cyanosis or clubbing. Dressings in place on left heel and toe Neuro: moves all extremities, no focal deficits Psych: Appropriate mood and behavior Internal Medicine: Result - Labs CBC & Chem 7: 09/02/17 04:55 09/02/17 04:55 Labs: Short CBC 09/02/17 Range/Units 04:55 WBC 7.1 (4.3-11.1) K/mcL Hgb 7.9 L (11.5-15.4) g/dL Hct 25.1 L (35.3-44.9) % Plt Count 329 (140-400) K/mcL BMP 09/02/17 04:55 Sodium 138 Potassium 3.4 L Chloride 103 Carbon Dioxide 29 BUN 63 H Creatinine 2.90 H Glucose 75 Calcium 8.0 L Consult Discharge Plan - Plan Referrals: Macario Diallo MD [Primary Care Provider] - (web request sent on 09/01/17) Prescriptions: levoFLOXacin [Levaquin] 500 mg PO Q48H #2 tablet <Bert Yadav P - Last Filed: 09/02/17 16:50> Date of Encounter: 09/02/17 - Constitutional Vitals: Temp Pulse Resp BP Pulse Ox 97.3 F L 69 17 146/76 96 09/02/17 16:08 09/02/17 16:08 09/02/17 16:08 09/02/17 16:21 09/02/17 16:08 Internal Medicine: Result - Labs CBC & Chem 7: 09/02/17 04:55 09/02/17 04:55 Labs: Short CBC 09/02/17 Range/Units 04:55 WBC 7.1 (4.3-11.1) K/mcL Hgb 7.9 L (11.5-15.4) g/dL Hct 25.1 L (35.3-44.9) % Plt Count 329 (140-400) K/mcL BMP 09/02/17 04:55 Sodium 138 Potassium 3.4 L Chloride 103 Carbon Dioxide 29 BUN 63 H Creatinine 2.90 H Glucose 75 Calcium 8.0 L - Attending Attestation I examined this patient and my medical decision-making was reviewed with the Resident Physician. I agree with the documented findings, disposition and treatment plan as described except to the extent set forth below. Improving creatinine. Issues regarding recurrent AK I. Possible placement if recommended by PT/OT. If not home soon
[2017-09-02] MEDS: Insulin DETEMIR 100 UNIT/ML X5UNITS SQ SCH (20:25)
[2017-09-03] MEDS: 0.9 % Sodium Chloride 1,000 ML IVC SCH (01:37)
[2017-09-03 02:32] LABS: Hemoglobin 7.9 g/dL (11.5-15.4); Mean Corpuscular HGB Conc 30.4 g/dL (31.6-35.5); Mean Corpuscular Volume 85.5 fL (83.0-100.0); Mean Platelet Volume 8.7 fL (9.4-12.4); Platelet Count 296 K/mcL (140-400); Red Blood Count 3.04 M/mcL (3.82-4.97); Red Cell Distribution Width 14.2 % (11.5-14.5)
[2017-09-03 02:57] LABS: Calcium 8.1 mg/dL (8.6-10.3); Potassium 4.4 mEq/L (3.5-5.1)
[2017-09-03] MEDS: *HR* Heparin 5,000 UNIT/ML VIAL SQ SCH (05:49)
--- NOTE | 2017-09-03 07:14 | Nephrology Progress Note ---
<Saulo Orourke - Last Filed: 09/03/17 15:52> Date of Encounter: 09/03/17 Time of Encounter: 07:14 - Assessment and Plan (1) Acute renal failure Status: Acute Pt has hx of chronic obstruction and recent removal of indwelling naylor catheter Naylor replaced 08/30/17 SrCr improving back to baseline D/c IV hydration Encourage adequate PO hydration (1500cc daily) No need for dialysis at this time Stable for d/c with [facility] Patient will need BMP in 1 week and outpatient nephrology follow up Qualifiers: Acute renal failure type: with acute tubular necrosis Qualified Code(s): N17.0 - Acute kidney failure with tubular necrosis (2) Obstructive uropathy Status: Chronic CT abd/plv reveals mild bilateral hydronephrosis with uroepithelial thickening. Uroepithelial thickening has increased compared to prior study from July 2016. Bladder wall also demonstrates progressive thickening. Given the chronicity, these findings are likely related to bladder outlet obstruction. FeNa 6.7% indicating Post-Renal/Obstructive etiology ( bilateral ureter obstruction) (3) Chronic kidney disease, stage IV (severe) Status: Chronic Baseline GFR around 19 Avoid nephrotoxins Continue to monitor (4) Hyponatremia Status: Resolved Resolved Continue salt tablets and IVF Continue to monitor (5) Hypokalemia Status: Acute S/p Kayexalate Resolved Continue to monitor (6) Hypomagnesemia Status: Acute Supplemented Magnesium Continue to monitor (7) UTI (urinary tract infection) Status: Acute UA consistent with UTI. Urine eosinophils negative Rocephin given in ED. Continue renally dosed Levaquin. Avoid nephrotoxins Qualifiers: Urinary tract infection type: acute cystitis Hematuria presence: with hematuria Qualified Code(s): N30.01 - Acute cystitis with hematuria (8) HTN (hypertension) Status: Chronic Continue home meds and monitor. Qualifiers: Hypertension type: essential hypertension Qualified Code(s): I10 - Essential (primary) hypertension (9) Diabetic foot ulcers Status: Chronic Patient has multiple open areas on both feet and shins. Qualifiers: Diabetic foot ulcer location: midfoot Diabetes mellitus type: type 2 Laterality: unspecified laterality Non-pressure ulcer stage: limited to breakdown of skin Qualified Code(s): E11.621 - Type 2 diabetes mellitus with foot ulcer; L97.401 - Non-pressure chronic ulcer of unspecified heel and midfoot limited to breakdown of skin; L97.401 - Non-pressure chronic ulcer of unspecified heel and midfoot limited to breakdown of skin; L97.401 - Non- pressure chronic ulcer of unspecified heel and midfoot limited to breakdown of skin; L97.401 - Non-pressure chronic ulcer of unspecified heel and midfoot limited to breakdown of skin (10) Diabetes mellitus Status: Chronic Management per primary team Qualifiers: Diabetes mellitus type: type 2 Diabetes mellitus complication status: with skin complications Diabetes mellitus complication detail: with foot ulcer Diabetes mellitus senior care insulin use: with remote computer terminal operator use Qualified Code(s) : E11.621 - Type 2 diabetes mellitus with foot ulcer; N18.4 - Chronic kidney disease, stage 4 (severe); N18.4 - Chronic kidney disease, stage 4 (severe); N18.4 - Chronic kidney disease, stage 4 (severe); N18.4 - Chronic kidney disease , stage 4 (severe); Z79.4 - halfway (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; Z79.4 - halfway (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; Z79.4 - intermediate frame tender (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; Z79.4 - halfway (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 Subjective Principal diagnosis: MERNA Interval history: Patient seen and examined resting comfortably in bed after eating breakfast. Patient reports no new c/o. Patient had 4850cc UOP yesterday but renal function is progressing back to baseline. No need for dialysis at this time. Anticipate d /c to with [facility]. Objective - Vital Signs Vital signs: Vital Signs Temp Pulse Resp BP Pulse Ox 09/03/17 03:20 98.3 F 65 16 139/96 98 09/02/17 23:24 97.9 F 100 16 160/67 97 09/02/17 19:53 97.8 F 94 16 161/78 99 09/02/17 16:21 146/76 09/02/17 16:08 97.3 F L 69 17 169/66 96 09/02/17 11:13 97.6 F 69 16 121/70 98 09/02/17 07:32 97.5 F L 65 16 119/71 99 Intake and Output 09/02/17 09/02/17 09/03/17 15:59 23:59 07:59 Intake Total 1600 / 1600 1000 / 1000 Output Total 450 / 450 1900 / 1900 1300 / 1300 Balance 1150 / 1150 -900 / -900 -1300 / -1300 Intake: IV Fluids 1000 / 1000 1000 / 1000 0.9 % Sodium Chloride 1,000 ML 1000 / 1000 1000 / 1000 @ 75 mls/hr IVC .[id number] [facility] Rx #:[id number] Oral 600 / 600 Output: Urine 0 / 0 900 / 900 Catheter 450 / 450 1000 / 1000 1300 / 1300 Other: Meal Lunch Percent of Meal Consumed 75% Weight 59.2 kg Blood Glucose* 215 402 Patient Weight 09/03/17 23:59 Weight 59.2 kg - General Appearance General appearance: Present: appears started age, cachectic, chronically ill EENT: Present: ATNC, PERRL, mucous membranes moist Neck: Present: supple Respiratory: Present: clear Cardiology: Present: no murmurs, no rub, no gallops, no edema, regular rate, regular rhythm, normal S1, normal S2 Gastrointestinal: Present: normoactive bowel sounds, no tenderness, no guarding , no organomegaly Integumentary: Present: no rash, warm and dry (dressings in place bilateral ankles) Neurologic: Present: no focal deficit, alert and oriented x3 Musculoskeletal: Present: no erythema (dressings in place bilateral ankles), no cyanosis Psychiatric: Present: mood/affect appropriate, cooperative - Lab 09/03/17 02:26 09/03/17 02:26 Most recent lab results Calcium 8.1 mg/dL (8.6-10.3) L 09/03/17 02:26 Phosphorus 2.8 mg/dL (2.7-4.5) 09/02/17 04:55 Magnesium 1.8 mg/dL (1.6-2.6) 09/03/17 02:26 Urine Creatinine 49 mg/dL 08/30/17 15:19 Urine Sodium 74.6 mEq/L 08/30/17 15:19 - Allied health notes Allied health notes reviewed: case management Consult Discharge Plan - Plan Instructions: Gestational Diabetes (DC), Naylor Catheter Placement and Care (DC) , Diabetic Foot Care (DC) Additional Instructions: Please follow up with your PCP and pump assembler after discharge. Referrals: Saulo Orourke DO [Resident] - 09/29/17 3:45 pm (Please follow up as schedule..) Macario Diallo MD [Primary Care Provider] - 09/08/17 2:15 pm (web request sent on 09/01/17) <Layla Dennis - Last Filed: 09/29/17 23:50> Date of Encounter: 09/03/17 - Assessment and Plan (1) MERNA (acute kidney injury) Status: Acute (2) Hyperkalemia Status: Resolved (3) Chronic kidney disease, stage IV (severe) Status: Chronic Objective - Lab 09/03/17 02:26 09/03/17 02:26 Most recent lab results Calcium 8.1 mg/dL (8.6-10.3) L 09/03/17 02:26 Phosphorus 2.8 mg/dL (2.7-4.5) 09/02/17 04:55 Magnesium 1.8 mg/dL (1.6-2.6) 09/03/17 02:26 Urine Creatinine 49 mg/dL 08/30/17 15:19 Urine Sodium 74.6 mEq/L 08/30/17 15:19 - Attending Attestation I examined this patient and my medical decision-making was reviewed with the Resident Physician. I agree with the documented findings, disposition and treatment plan as described except to the extent set forth below. Pt seen and examined with over 4500cc of UOP in the past 24hrs. SCr back at baseline at 2.41, GFR 20. Can stop IVF. Continue to avoid nephrotxins if possible. Would recommend ECF on discharge if possible or at minimum ORTHOTIC/PROSTHETIC CLINICIAN with nursing to help with pt's care at home as her live-in family seems hands off.
[2017-09-03] MEDS ORDERED: levoFLOXacin 500 MG TABLET PO SCH (09:00)
[2017-09-03] MEDS: Aspirin Enteric Coated 81 MG Tablet PO SCH (09:16)
[2017-09-03] MEDS: Insulin LISPRO 300 UNITS/3 ML VIAL SQ SCH (09:24)
[2017-09-03 09:30] VITALS: BP 136/71
--- NOTE | 2017-09-03 10:48 | Discharge Summary ---
<VanGab faith - Last Filed: 09/03/17 16:11> Date of Encounter: 09/03/17 Time of Encounter: 10:45 - Discharge Diagnosis (1) Acute worsening of stage 4 chronic kidney disease Priority: Primary Status: Acute (2) Chronic kidney disease, stage IV (severe) Priority: Secondary Status: Chronic (3) Obstructive uropathy Priority: Secondary Status: Chronic (4) Acute pyelonephritis Priority: Secondary Status: Acute (5) Anemia in chronic renal disease Priority: Secondary Status: Chronic Qualifiers: Chronic kidney disease stage: stage 4 (severe) Qualified Code(s): N18.4 - Chronic kidney disease, stage 4 (severe); D63.1 - Anemia in chronic kidney disease; D63.1 - Anemia in chronic kidney disease (6) Nausea & vomiting Priority: Secondary Status: Resolved Qualifiers: Vomiting type: unspecified Vomiting Intractability: unspecified Qualified Code(s): R11.2 - Nausea with vomiting, unspecified (7) Diabetic ulcer of left foot Priority: Secondary Status: Chronic Qualifiers: Diabetic foot ulcer location: toe Diabetes mellitus type: type 2 Non- pressure ulcer stage: with necrosis of muscle Qualified Code(s): E11.621 - Type 2 diabetes mellitus with foot ulcer; L97.523 - Non-pressure chronic ulcer of other part of left foot with necrosis of muscle; L97.523 - Non-pressure chronic ulcer of other part of left foot with necrosis of muscle; L97.523 - Non- pressure chronic ulcer of other part of left foot with necrosis of muscle; L97.523 - Non-pressure chronic ulcer of other part of left foot with necrosis of muscle (8) Diabetes mellitus Priority: Secondary Status: Chronic Qualifiers: Diabetes mellitus type: type 2 Diabetes mellitus complication status: with skin complications Diabetes mellitus complication detail: with foot ulcer Diabetes mellitus long term care social worker insulin use: with long term care social worker use Qualified Code(s) : E11.621 - Type 2 diabetes mellitus with foot ulcer; L97.509 - Non-pressure chronic ulcer of other part of unspecified foot with unspecified severity; L97.509 - Non-pressure chronic ulcer of other part of unspecified foot with unspecified severity; L97.509 - Non-pressure chronic ulcer of other part of unspecified foot with unspecified severity; L97.509 - Non-pressure chronic ulcer of other part of unspecified foot with unspecified severity; Z79.4 - skilled nursing (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; Z79.4 - buttermaker (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; Z79.4 - buttermaker (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; Z79.4 - skilled nursing (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 (9) Hyperkalemia Priority: Secondary Status: Resolved (10) Hyponatremia Priority: Secondary Status: Resolved (11) DVT prophylaxis Priority: Secondary Status: Acute - Discharge Medications Home Medications: Metoprolol [Lopressor] 12.5 mg PO BID 03/01/16 [History] Pravastatin Sodium 10 mg PO HS 03/01/16 [History] Insulin Glargine,Hum.rec.anlog [Lantus Solostar] 30 units SQ HS 07/10/17 [ History] Aspirin Enteric Coated [Aspirin EC] 81 mg PO DAILY 08/04/17 [History] Oxygen 1 each .ROUTE AD 08/04/17 [History] Ferrous Sulfate 325 mg PO BIDWM #30 tablet 08/10/17 [Rx] Sodium Chloride 1 gm PO BID #30 tablet 08/10/17 [Rx] Allergies/Adverse Reactions: 3 Allergy/AdvReac Type Severity Reaction Status Date / Time acetaminophen [From Tylenol] Allergy See Verified 08/30/17 09:37 Comments Influenza Virus Vaccines Allergy See Verified 08/30/17 09:37 Comments Date of admission: 08/30/17 07:39 Primary care physician: Macario Diallo MD Consults: 08/30/17 10:56 Consult to Nutrition [CONS] Routine Comment: Kidney failure Consulting Provider: NUTRITION Reason for Dietary Consult: Other Consult to Body Fitter [CONS] Routine Reason for SW Consult: home health 09/02/17 08:16 PT [Consult to Physical Therapy] [CONS] Routine Comment: Evaluate, develop and implement POC Reason for Consult: per Dr. Vicenta roberto for SNF 09/02/17 08:17 OT [Consult to Occupational Therapy] [CONS] Routine Comment: Evaluate, develop and implement POC Reason for Consult: per Dr. Steven roberto for SNF Discharging clinician: Gab Zavala Anticipated date of discharge: 09/03/17 - Patient Status Disposition: Home Health Service Condition: Fair Functional capacity at discharge: independent ambulation Overall status at discharge: patient is back to baseline - Discharge Instructions Instructions: Gestational Diabetes (DC), Naylor Catheter Placement and Care (DC) , Diabetic Foot Care (DC) Follow Up With: Saulo Orourke DO [Resident] - 09/29/17 3:45 pm (Please follow up as schedule..) Macario Diallo MD [Primary Care Provider] - 09/08/17 2:15 pm (web request sent on 09/01/17) Additional Instructions: Please follow up with your PCP and electronic health records specialist after discharge. - Diet and Activity Activity: increase activity as tolerated, resume usual activities as tolerated Diet: advance to your usual diet Hospital course: Ms. Lacy is a 72 year old female with a PMHx of CKD stage IV and obstructive uropathy presented to ED with a complaint of generalized weakness, vomiting. She was recently admitted earlier this month and was found to have MERNA on CKD due to obstruction with naylor catheter improvement as well as short term dialysis. She reported that her naylor fell out 2 weeks prior and she followed up with her urologist and he/she said it was "OK". She had progressive symptoms following that. In the ED, vitals significant for pulse 100, BP 152/92. Labs significant for WBC of 12.9, Na of 130, BUN/Cr of 130/6.24. She was admitted to Medicine service with a diagnosis of MERNA on CKD stage IV secondary to obstructive uropathy. During course of hospital stay, patient gradually improved. Nephro was consulted and she did not require dialysis at this time. Naylor catheter was placed with good urine output and improvement of renal function. She did recieve a 4 day course of levaquin for questionable UTI, no growth on culture. K was originally elevated at 6.6 but improved with kayexalate. On day of discharge she was stable medically and will be sent home with Home health. Labs returned to baseline levels and vitals were stable. She was instructed to follow up with PCP and electronic health records specialist and to keep her catheter in. All questions answered. - Time Spent with Patient Total time spent providing and/or coordinating discharge services: - Constitutional Vitals: Temp Pulse Resp BP Pulse Ox 97.6 F 72 16 136/71 99 09/03/17 09:28 09/03/17 09:28 09/03/17 09:28 09/03/17 09:28 09/03/17 09:28 General appearance: Present: A&O X 3, pleasant, answers questions appropriately Exam: Gen.: Vitals noted. No acute distress. AAOx3 HEENT: PERRL/EOMI, oropharynx clear, Normocephalic, atraumatic, MMM Cardiac: RRR, no murmur, +S1/S2 Pulmonary: CTA bilaterally, no wheezes, rales or rhonchi, equal chest expansion Abdomen: soft, nontender, BS noted, no guarding MSK: ROM intact, no joint swelling noted Extremities: no BLE edema, nontender calf, no cyanosis or clubbing Neuro: A&Ox3, moves all extremities, no focal deficits Psych: Appropriate mood and behavior <Bert Yadav P - Last Filed: 09/03/17 16:22> Date of Encounter: 09/03/17 Date of admission: 08/30/17 07:39 Primary care physician: Macario Diallo MD Consults: 08/30/17 10:56 Consult to Nutrition [CONS] Routine Comment: Kidney failure Consulting Provider: NUTRITION Reason for Dietary Consult: Other Consult to Body Fitter [CONS] Routine Reason for SW Consult: home health 09/02/17 08:16 PT [Consult to Physical Therapy] [CONS] Routine Comment: Evaluate, develop and implement POC Reason for Consult: per Dr. Vicenta roberto for SNF 09/02/17 08:17 OT [Consult to Occupational Therapy] [CONS] Routine Comment: Evaluate, develop and implement POC Reason for Consult: per Dr. Steven roberto for SNF Hospital course: Ms. Lacy is a 72 year old female - Time Spent with Patient Total time spent providing and/or coordinating discharge services: - Constitutional Vitals: Temp Pulse Resp BP Pulse Ox 97.6 F 72 16 136/71 99 09/03/17 09:28 09/03/17 09:28 09/03/17 09:28 09/03/17 09:28 09/03/17 09:28 - Attending Attestation I examined this patient and my medical decision-making was reviewed with the Resident Physician. I agree with the documented findings, disposition and treatment plan as described except to the extent set forth below. I have personally spoken to the patient's PCP. Patient's PCP will arrange for EGD/colonoscopy as outpatient. Patient's PCP told me that patient is a very noncompliant in following up basic directions. Very poor home and wire remained in terms of the hygiene. All above updated to the electronic health records specialist.
--- NOTE | 2017-09-03 11:17 | Physician Discharge Referral ---
<Awilda Zavalaew - Last Filed: 09/03/17 11:15> Home Health/Hosp Referral Info Transfer to: Home Health Provider in Charge Post Discharge: PCP - Diagnosis (1) Acute worsening of stage 4 chronic kidney disease Priority: Primary Status: Acute (2) Chronic kidney disease, stage IV (severe) Priority: Secondary Status: Chronic (3) Obstructive uropathy Priority: Secondary Status: Chronic (4) Acute pyelonephritis Priority: Secondary Status: Acute (5) Anemia in chronic renal disease Priority: Secondary Status: Chronic (6) Nausea & vomiting Priority: Secondary Status: Resolved (7) Diabetic ulcer of left foot Priority: Secondary Status: Chronic (8) Diabetes mellitus Priority: Secondary Status: Chronic (9) Hyperkalemia Priority: Secondary Status: Resolved (10) Hyponatremia Priority: Secondary Status: Resolved (11) DVT prophylaxis Priority: Secondary Status: Acute - Respiratory Orders Smoking Cessation: Smoking cessation has been advised. For more information, call the [place] [employer] Quit Line at 1-109-IKZFNOW. - Diet/Nutrition Diet/Nutrition Orders: Renal - Activity Activity Orders: Ambulate - Services Needed Following services are medically necessary services: Home Health Aide - Transfer Medications Home Medications: Metoprolol [Lopressor] 12.5 mg PO BID 03/01/16 [History] Pravastatin Sodium 10 mg PO HS 03/01/16 [History] Insulin Glargine,Hum.rec.anlog [Lantus Solostar] 30 units SQ HS 07/10/17 [ History] Aspirin Enteric Coated [Aspirin EC] 81 mg PO DAILY 08/04/17 [History] Oxygen 1 each .ROUTE AD 08/04/17 [History] Ferrous Sulfate 325 mg PO BIDWM #30 tablet 08/10/17 [Rx] Sodium Chloride 1 gm PO BID #30 tablet 08/10/17 [Rx] Allergies/Adverse Reactions: 3 Allergy/AdvReac Type Severity Reaction Status Date / Time acetaminophen [From Tylenol] Allergy See Verified 08/30/17 09:37 Comments Influenza Virus Vaccines Allergy See Verified 08/30/17 09:37 Comments Certification: Further, I certify that my clinical findings support that this patient is homebound (i.e. absences from home require considerable and taxing effort and are for medical reasons or christian services or infrequently or short duration when for other reasons) because: Homebound Reason: Patient requires assistance of a person or device to safely leave home, Leaving home requires considerable and taxing effort due to condition Attestation: My signature below is to certify that this patient is under my care and that I, or nurse practitioner, or a physician's web production assistant working with me, has a face-to -face encounter with this patient. <Bert Yadav P - Last Filed: 09/03/17 16:20> - Respiratory Orders Smoking Cessation: Smoking cessation has been advised. For more information, call the [place] [employer] Quit Line at 4-831-KZUN-NOW. Certification: Further, I certify that my clinical findings support that this patient is homebound (i.e. absences from home require considerable and taxing effort and are for medical reasons or christian services or infrequently or short duration when for other reasons) because: Attestation: My signature below is to certify that this patient is under my care and that I, or nurse practitioner, or a physician's web production assistant working with me, has a face-to -face encounter with this patient.
== END 2017-09-03 12:19 | disposition home health service (06) | DRG 683 ==
LOC: EMEROO 04:28 → SUATTDRO 07:39 → ICNU 07:39 → 2ANU 16:10
PROVIDERS: ADMIT Internal Medicine; ATTEND Internal Medicine

== ENCOUNTER 2017-09-17 15:52 | Inpatient (IN) ==
[2017-09-17] MEDS ORDERED: Ondansetron 4 MG/2 ML VIAL IVP ONE (16:37)
[2017-09-17] MEDS ORDERED: 0.9 % Sodium Chloride 1,000 ML IVC ONE ×2 (16:37→17:11)
[2017-09-17 16:38] LABS: Basophils % 0.3 %; Eosinophils # 0.1 K/mcL (0.0-0.6); Hematocrit 35.3 % (35.3-44.9); Hemoglobin 11.7 g/dL (11.5-15.4); Immature Granulocytes % 0.7 % (0-4); Lymphocytes # 2.1 K/mcL (0.6-4.6); Mean Corpuscular HGB Conc 33.1 g/dL (31.6-35.5); Mean Corpuscular Hemoglobin 26.6 pg (28.0-33.3); Mean Corpuscular Volume 80.2 fL (83.0-100.0); Mean Platelet Volume 9.1 fL (9.4-12.4); Monocytes # 0.5 K/mcL (0.0-1.3); Monocytes % 4.2 %; Neutrophils # 7.9 K/mcL (1.6-8.9); Platelet Count 513 K/mcL (140-400); Red Cell Distribution Width 14.4 % (11.5-14.5); Segmented Neutrophils % 73.8 %
--- NOTE | 2017-09-17 16:38 | Emergency Department Note ---
Disposition Clinical Impression: Acute kidney injury, Hyperkalemia, Nausea vomiting and diarrhea Disposition: Admitted As Inpatient Condition: Fair Referrals: Macario Diallo MD [Primary Care Provider] - Forms: Work/School Release, ED Satisfaction Letter Abdominal Pain HPI - General Chief Complaint: ED Nausea/Vomiting/Diarrhea Stated Complaint: n/v/d, ekg changes Time Seen by Provider: 09/17/17 15:58 Source: patient, EMS Mode of arrival: ambulatory Limitations: no limitations Nursing Notes Reviewed: Yes Vital Signs Reviewed: Yes - History of Present Illness HPI Narrative: 72-year-old female history of chronic kidney disease with recent hospitalization for acute on chronic kidney disease presents for evaluation of nausea vomiting diarrhea. Patient states to symptom onset was today. Patient is a poor historian however denies any chest pain first breath. Patient does note abdominal pain when she has the vomiting. Patient denies any fevers. Patient does lives at home without nursing support. Patient states that she did fall landing on her bottom. Pain Scale: 8 - Related Data Home Medications Medication Instructions Recorded Confirmed Metoprolol [Lopressor] 12.5 mg PO BID 03/01/16 09/17/17 Insulin Glargine,Hum.rec.anlog 30 units SQ HS 07/10/17 09/17/17 [Lantus Solostar] Aspirin Enteric Coated [Aspirin EC] 81 mg PO DAILY 08/04/17 09/17/17 Oxygen 2 l NS AD 08/04/17 09/17/17 Gabapentin [Neurontin] 100 mg PO BID 09/17/17 09/17/17 Allergies Allergy/AdvReac Type Severity Reaction Status Date / Time acetaminophen [From Tylenol] Allergy See Verified 09/17/17 16:21 Comments Influenza Virus Vaccines Allergy See Verified 09/17/17 16:21 Comments All systems ED: reviewed and negative except as stated. Constitutional: Denies: fever Cardiovascular: Denies: chest pain Respiratory: Denies: cough, dyspnea Gastrointestinal: Reports: abdominal pain, nausea, vomiting, diarrhea Abdominal Pain PMH - Past Medical History Medical history: Reports: diabetes, hyperlipidemia, hypertension, renal disease , other Female Surgical History: Reports: appendectomy, cholecystectomy, hysterectomy, orthopedic, other CERTIFIED SCRUM MASTER history: Reports: no CERTIFIED SCRUM MASTER history Psychiatric history: Reports: no psych history - Social History Smoking status: Never smoker Alcohol use: Reports: none Drug use: Reports: none Physical Exam - General Limitations: no limitations General appearance: alert, in no apparent distress - Head Head exam: atraumatic, normocephalic, normal inspection - Eye Eye exam: Present: normal appearance, PERRL, EOMI - ENT ENT exam: normal exam - Neck Neck exam: Present: normal inspection - Chest Chest inspection: Present: normal inspection, symmetric chest wall rise - Respiratory Respiratory exam: Present: other (diffusely decreased lung sounds). Absent: respiratory distress - Cardiovascular Cardiovascular exam: Present: regular rate, normal rhythm. Absent: systolic murmur - Abdominal Exam Abdominal exam: Present: soft, Non-Tender. Absent: tenderness - Extremities Exam Extremities exam: Present: normal inspection, other (Lower extremity abrasions) . Absent: pedal edema - Neurological Exam Neurological exam: Present: alert - Skin Skin exam: Present: warm, dry, intact, normal color Course Course Narrative: Patient seen and examined. Patient had post renal obstruction with recent hospitalization was on Levaquin during the hospital course. For presumed UTI. Patient appears dehydrated on clinical exam. Patient's been having several episodes of vomiting and diarrhea. Patient's abdomen is soft. Patient will get basic lab work including EKG troponin and urinalysis. - Reevaluation(s) Reevaluation #1: Repeat EKG shows sinus rhythm with a rate of 95. Patient has no ST elevation. Normal access. He T waves throughout the precordium. Does have ST depression in V4 V5. Time: 17:17 - Consultations Consultation #1: Spoke with Dr. Aaln who is aware of the patient. Recommends IV Madden placement, IV fluids, Kayexalate. Time: 17:23 Vital Signs Temperature 97.9 F 09/17/17 15:53 Pulse Rate 99 09/17/17 15:53 Respiratory Rate 16 09/17/17 15:53 Blood Pressure 123/80 09/17/17 15:53 O2 Sat by Pulse Oximetry 100 09/17/17 15:53 Temperature 97.9 F 09/17/17 15:53 Pulse Rate 85 09/17/17 18:18 Respiratory Rate 16 09/17/17 18:18 Blood Pressure 132/52 09/17/17 18:18 O2 Sat by Pulse Oximetry 100 09/17/17 18:18 Oxygen Delivery Oxygen Delivery Room Air Abdominal Pain - MDM Narrative Medical decision making narrative: Patient presented with signs concerning for dehydration. Nausea vomiting diarrhea. - Lab Data Lab results reviewed: Yes I reviewed the patient's lab results. Result diagrams: 09/17/17 16:20 09/17/17 16:20 Lab Results 09/17/17 09/17/17 09/17/17 Range/Units 16:20 16:20 16:20 WBC 10.7 (4.3-11.1) K/mcL RBC 4.40 (3.82-4.97) M/mcL Hgb 11.7 (11.5-15.4) g/dL Hct 35.3 (35.3-44.9) % MCV 80.2 L (83.0-100.0) fL MCH 26.6 L (28.0-33.3) pg MCHC 33.1 (31.6-35.5) g/dL RDW 14.4 (11.5-14.5) % Plt Count 513 H (140-400) K/mcL MPV 9.1 L (9.4-12.4) fL Immature Gran % 0.7 (0-4) % Seg Neutrophils % 73.8 % Lymphocytes % 20.0 % Monocytes % 4.2 % Eosinophils % 1.0 % Basophils % 0.3 % Neutrophils # 7.9 (1.6-8.9) K/mcL Lymphocytes # 2.1 (0.6-4.6) K/mcL Monocytes # 0.5 (0.0-1.3) K/mcL Eosinophils # 0.1 (0.0-0.6) K/mcL Basophils # 0.0 (0.0-0.2) K/mcL PT 12.8 H (9.4-12.1) Seconds INR 1.2 APTT 30.1 (26.0-36.0) Seconds Sodium 119 L* (136-145) mEq/L Potassium 8.2 H* (3.5-5.1) mEq/L Chloride 86 L (98-107) mEq/L Carbon Dioxide 17 L (23-29) mEq/L BUN > 130 H (8-23) mg/dL Creatinine 6.42 H (0.60-1.20) mg/dL Est GFR ( Amer) 8 L (> 60) Est GFR (Non-Af Amer) 6 L (> 60) BUN/Creatinine Ratio TNP Glucose 182 H (70-105) mg/dL Calculated Osmolality TNP Calcium 10.3 (8.6-10.3) mg/dL Total Bilirubin 0.3 (0.3-1.0) mg/dL Direct Bilirubin 0.0 (0.0-0.2) mg/dL Indirect Bilirubin 0.3 (0.0-1.2) mg/dL AST 10 L (13-39) Units/L ALT 11 (7-52) Units/L Alkaline Phosphatase 145 H (34-104) Units/L Serum Total Protein 11.5 H (6.4-8.9) g/dL Albumin 4.0 (3.5-5.7) g/dL Globulin 7.5 H (2.4-3.5) g/dL Albumin/Globulin Ratio 0.5 L (1.1-2.2) Urine Color (Yellow) Urine Clarity (Clear) Urine pH (5.0-8.0) pH Units Ur Specific [place] (1.010-1.025) Urine Protein (Neg-Trace) mg/dL Urine Glucose (UA) (Normal) mg/dL Urine Ketones (Negative) mg/dL Urine Blood (Negative) Urine Nitrite (Negative) Urine Bilirubin (Negative) Urine Urobilinogen (Normal) mg/dL Ur Leukocyte Esterase (Negative) 09/17/17 Range/Units 17:50 WBC (4.3-11.1) K/mcL RBC (3.82-4.97) M/mcL Hgb (11.5-15.4) g/dL Hct (35.3-44.9) % MCV (83.0-100.0) fL MCH (28.0-33.3) pg MCHC (31.6-35.5) g/dL RDW (11.5-14.5) % Plt Count (140-400) K/mcL MPV (9.4-12.4) fL Immature Gran % (0-4) % Seg Neutrophils % % Lymphocytes % % Monocytes % % Eosinophils % % Basophils % % Neutrophils # (1.6-8.9) K/mcL Lymphocytes # (0.6-4.6) K/mcL Monocytes # (0.0-1.3) K/mcL Eosinophils # (0.0-0.6) K/mcL Basophils # (0.0-0.2) K/mcL PT (9.4-12.1) Seconds INR APTT (26.0-36.0) Seconds Sodium (136-145) mEq/L Potassium (3.5-5.1) mEq/L Chloride (98-107) mEq/L Carbon Dioxide (23-29) mEq/L BUN (8-23) mg/dL Creatinine (0.60-1.20) mg/dL Est GFR ( Amer) (> 60) Est GFR (Non-Af Amer) (> 60) BUN/Creatinine Ratio Glucose (70-105) mg/dL Calculated Osmolality Calcium (8.6-10.3) mg/dL Total Bilirubin (0.3-1.0) mg/dL Direct Bilirubin (0.0-0.2) mg/dL Indirect Bilirubin (0.0-1.2) mg/dL AST (13-39) Units/L ALT (7-52) Units/L Alkaline Phosphatase (34-104) Units/L Serum Total Protein (6.4-8.9) g/dL Albumin (3.5-5.7) g/dL Globulin (2.4-3.5) g/dL Albumin/Globulin Ratio (1.1-2.2) Urine Color Yellow (Yellow) Urine Clarity Cloudy A (Clear) Urine pH 6.5 (5.0-8.0) pH Units Ur Specific [place] 1.016 (1.010-1.025) Urine Protein >=300 H (Neg-Trace) mg/dL Urine Glucose (UA) Normal (Normal) mg/dL Urine Ketones Negative (Negative) mg/dL Urine Blood Large H (Negative) Urine Nitrite Negative (Negative) Urine Bilirubin Negative (Negative) Urine Urobilinogen Normal (Normal) mg/dL Ur Leukocyte Esterase Large H (Negative) - Radiology Data Radiology results reviewed: Yes I reviewed the patient's radiology results. - EKG Data EKG attestation: Yes I reviewed and interpreted this EKG. EKG results narrative: Ectopic atrial rhythm with a first-degree AV block. Rate: normal [place]/QRS: left axis deviation Q waves: v1 T wave inversions noted in: I, aVL QRS morphology: poor R-wave progression Interpretation: nonspecific ST-T wave changes S.B.A.R. - S.B.A.R. Situation: Demographics Background: Presenting Complaint Assessment: Vital Signs, Course and respsone to treatment, Patient/Family Expectation Recommendation: Barrier(s) to disposition, Recommendation based on pending studies, treatments, or consults (C diff pending) Dionisio Report Given to: Ta Nichole Repor Time: 18:02 Attestation Statement - Attestation Attestation: I examined this patient and my medical decision-making was reviewed with the Resident Physician. I agree with the documented findings, disposition and treatment plan as described except to the extent set forth below. Patient to ED with nausea vomiting diarrhea today. On examination she is pleasant and conversant. Pleasantly demented. Oriented to self and place. Lungs clear. Abdomen soft. Plan. The patient has peaked T waves on her EKG. She was found to be hyperkalemic which we are treating at this time. Patient had several episodes of diarrhea. We will send a C. difficile. Admit to medicine. 40 minutes of critical care exclusive of separately billable procedures.
[2017-09-17 16:42] LABS: INR 1.2; Prothrombin Time 12.8 Seconds (9.4-12.1)
[2017-09-17 16:45] LABS: Activated Partial Thrombo Time 30.1 Seconds (26.0-36.0)
[2017-09-17 17:04] LABS: Alanine Aminotransferase 11 Units/L (7-52); Albumin/Globulin Ratio 0.5 (1.1-2.2); Alkaline Phosphatase 145 Units/L (34-104); Aspartate Amino Transferase 10 Units/L (13-39); Bilirubin,Indirect 0.3 mg/dL (0.0-1.2); Bilirubin,Total 0.3 mg/dL (0.3-1.0); Blood Urea Nitrogen > 130 mg/dL (8-23); Calcium 10.3 mg/dL (8.6-10.3); Carbon Dioxide 17 mEq/L (23-29); Chloride 86 mEq/L (98-107); Globulin 7.5 g/dL (2.4-3.5); Glucose 182 mg/dL (70-105); Potassium 8.2 mEq/L (3.5-5.1); Sodium 119 mEq/L (136-145); Total Protein 11.5 g/dL (6.4-8.9); eGFR For African Americans 8 (> 60); eGFR For Non-African Americans 6 (> 60)
[2017-09-17] MEDS ORDERED: Albuterol 2.5 MG/3 ML NEBULIZER IH ONE ×2 (17:04→19:38)
[2017-09-17] MEDS ORDERED: Calcium Gluconate 3,000 MG in 0.9 % Sodium Chloride 100 ML IVPB ONE (17:05)
[2017-09-17] MEDS ORDERED: Sodium Bicarbonate 50 MEQ/50 ML VIAL IVP ONE ×2 (17:05→19:34)
[2017-09-17] MEDS ORDERED: Insulin Human Regular 10 UNIT in 0.9 % Sodium Chloride 10 ML IV ONE ×3 (17:08→23:15)
[2017-09-17] MEDS ORDERED: *HR* Dextrose 50 % in Water (Syg) 50 ML SYRINGE IVP ONE ×2 (17:09→19:36)
[2017-09-17 18:07] LABS: Bilirubin,Urine Negative (Negative); Blood,Urine Large (Negative); Clarity,Urine Cloudy (Clear); Color,Urine Yellow (Yellow); Glucose,Urine (UA) Normal (Normal); Ketones,Urine Negative (Negative); Leukocyte Esterase,Urine Large (Negative); Nitrite,Urine Negative (Negative); PH,Urine 6.5 pH Units (5.0-8.0); Protein,Urine >=300 mg/dL (Neg-Trace); Specific Gravity,Urine 1.016 (1.010-1.025); Urobilinogen,Urine Normal (Normal)
[2017-09-17 18:10] LABS: Squamous Epithelial Cell,Urine Many per lpf (None-Few); WBC,Urine TNTC per hpf (0-3)
[2017-09-17] MEDS ORDERED: cefTRIAXone 1,000 MG in Water for inj. (sterile) 20 ML 10 ML IVP ONE (18:18)
[2017-09-17 18:26] LABS: Bacteria,Urine Moderate per hpf (None-Few); RBC,Urine TNTC per hpf (0-3)
[2017-09-17 18:35] LABS: Sodium, Urine 118.6 mEq/L
[2017-09-17] MEDS: CALCIUM GLUCONATE IVPB ONE ×2 (22:11→23:46)
[2017-09-17] MEDS: SODIUM CHLORIDE 0.9% IVPB ONE ×2 (22:11→23:46)
[2017-09-17] MEDS ORDERED: *HR* Dextrose 50 % in Water (Syg) 50 ML SYRINGE IVP PRN (23:06)
[2017-09-17] MEDS ORDERED: Dextrose Gel 15 GM/37.5 ML TUBE PO PRN ×2 (23:06)
[2017-09-17] MEDS ORDERED: D5% in Water 1,000 ML IVC PRN (23:06)
--- NOTE | 2017-09-18 00:43 | Internal Med History&Physical ---
<SimonyosisoniaLui brown - Last Filed: 09/18/17 04:36> Date of Encounter: 09/18/17 Time of Encounter: 21:45 Assessment and Plan (1) Nausea vomiting and diarrhea Current visit: Yes Status: Acute Patient reports N, V, D x 1 day. poor po intake. patient denies new food exposure, receives meals from service. Son brought over meatloaf night before, but no other family sick. Patient denies recent antibiotic use or travel. No abdominal pain except some while actively vomiting. Patient denies blood in stool or vomit, denies dark stool C. Diff negative. contineu zofran prn for nausea. continue IV hydration. continue to monitor. (2) Acute worsening of stage 4 chronic kidney disease Current visit: No Status: Acute Pt with Hx of CKD stage 4 baseline Cr. ~2.4 Cr on admission 6.42 Patient had very similar admission a few weeks ago. Dehydration 2/2 V/D leading to MENRA on CKD and hyperkalemia. continue IV hydration avoid nephrotoxic agents Nephrology consulted appreciate recommendations. (3) Hyperkalemia Current visit: No Status: Acute Patient presented with K 8.2 on admission Peaked T waves on EKG patient given: albuterol, calcium gluconate, insulin, sodium bicarb, kayexalate , and 2L NS Nephrology was consulted in the ED repeat K 7.5, 6.6 T waves returnign to normal on repeat EKGs continuing to trend down morning BMP pending continue IV fluids continue to monitor (4) UTI (urinary tract infection) Current visit: Yes Status: Acute Patient's UA with cloudy urine > 300 protein, Large Leuk esterase, TNTC WBCs, TNTC RBCs, many Squamous epitelium, modrate bacteria. Culture Pending Patient given 1g ceftriaxone in ED continue ceftriaxone pending culture results. Qualifiers: Urinary tract infection type: acute cystitis Hematuria presence: without hematuria Qualified Code(s): N30.00 - Acute cystitis without hematuria (5) Chronic anemia Current visit: Yes Status: Chronic Hx of Chronic anemia likely 2/2 CKD on home Ferrous sulfate. continue home ferrous sulfate. (6) IDDM (insulin dependent diabetes mellitus) Current visit: Yes Status: Chronic Hx of IDDM start SSI, accuchecks, diabetic diet continue to monitor (7) HTN (hypertension) Current visit: Yes Status: Chronic Hx of HTN continue home lopressor Qualifiers: Hypertension type: essential hypertension Qualified Code(s): I10 - Essential (primary) hypertension (8) HLD (hyperlipidemia) Current visit: Yes Status: Chronic Hx of HLD continue home statin Qualifiers: Hyperlipidemia type: mixed hyperlipidemia Qualified Code(s): E78.2 - Mixed hyperlipidemia (9) Diabetic ulcer of left foot Current visit: Yes Status: Chronic Patient with chronic L foot ulcer currently wrapped. continue wound care. Qualifiers: Diabetic foot ulcer location: unspecified part of foot Diabetes mellitus type: type 2 Non-pressure ulcer stage: unspecified non-pressure ulcer stage Qualified Code(s): E11.621 - Type 2 diabetes mellitus with foot ulcer; L97.529 - Non-pressure chronic ulcer of other part of left foot with unspecified severity; L97.529 - Non-pressure chronic ulcer of other part of left foot with unspecified severity; L97.529 - Non-pressure chronic ulcer of other part of left foot with unspecified severity; L97.529 - Non-pressure chronic ulcer of other part of left foot with unspecified severity Internal Medicine - H&P: HPI Chief complaint: Nausea, vomiting, diarrhea Admitted From: Emergency Dept Plans for Post Hospital Care: Transfer Residential Facility History of present illness: Ms. Lacy is a 72 year old female c Pmhx of CKD stage IV, Diabetes Mellitus, htn , hld reports to [facility] ED c/o N, V, D x 1 day. poor po intake. patient denies new food exposure, receives meals from service. Son brought over meatloaf night before, but no other family sick. Patient denies recent antibiotic use or travel.No abdominal pain except some while actively vomiting. Patient denies blood in stool or vomit, denies dark stool. Pt denies Chest pain, SOB. Patient' s work up was significant for K 8.2 on admission. Cr. 6.42, UA with loudy urine > 300 protein, Large Leuk esterase, TNTC WBCs, TNTC RBCs, many Squamous epitelium, moderate bacteria.Nephrology was consulted. Patient had recent admission 2 weeks ago for same problems N,V,D leading to MERNA on CKD and hyperkalemia. patient given: albuterol, calcium gluconate, insulin, sodium bicarb, kayexalate, and 2L NS. Past Med Surg Social Fam HX - Past Medical History Medical history: diabetes, hyperlipidemia, hypertension, renal disease, other Psychiatric history: no psych history - Past Surgical History Surgical History: appendectomy, cholecystectomy, hysterectomy - Social History Smoking Status: Never smoker Smokeless Tobacco Status: No Alcohol use: none Drug use: none - Family History Mother Living Status: Hx Family Cardiac Disorders: Yes Father Living Status: Hx Family Cardiac Disorders: Yes Internal Medicine - H&P: Meds Metoprolol [Lopressor] 12.5 mg PO BID 03/01/16 [History] Insulin Glargine,Hum.rec.anlog [Lantus Solostar] 30 units SQ HS 07/10/17 [ History] Aspirin Enteric Coated [Aspirin EC] 81 mg PO DAILY 08/04/17 [History] Oxygen 2 l NS AD 08/04/17 [History] Gabapentin [Neurontin] 100 mg PO BID 09/17/17 [History] 3 Allergy/AdvReac Type Severity Reaction Status Date / Time acetaminophen [From Tylenol] Allergy See Verified 09/17/17 16:21 Comments Influenza Virus Vaccines Allergy See Verified 09/17/17 16:21 Comments All Systems PM: A 10-system review of systems was performed and is negative for pertinent findings except as documented above in the HPI. - Constitutional Vitals: Temp Pulse Resp BP Pulse Ox 97.2 F L 91 17 142/93 98 09/17/17 23:56 09/17/17 23:56 09/17/17 23:56 09/17/17 23:56 09/17/17 23:56 General appearance: Present: A&O X 3, pleasant, no acute distress, answers questions appropriately - Head Head exam: Present: atraumatic, normocephalic - Eye Eye exam: Present: conjuntiva pink, sclera anicteric - Neck Neck exam general surgery: Present: supple, trachea midline. Absent: lymphadenopathy - Respiratory Respiratory exam: Present: CTAB. Absent: accessory muscle use, rales, rhonchi, wheezes - Cardiovascular Cardiovascular exam: Present: RRR, +S1, +S2. Absent: diastolic murmur, gallop, rubs, systolic murmur - GI/Abdominal GI/Abdominal exam: Present: normal bowel sounds, soft, no peritoneal signs. Absent: distended, tenderness - Extremities Exam Extremities exam: Present: warm, radial pulses palpable and symmetrical. Absent : calf tenderness, cyanotic, pedal edema - Neurological Exam Neurological exam: Present: oriented X3, no focal deficits. Absent: facial droop, speech deficit - Skin Skin exam: Present: dry, intact Internal Med - H&P Results - Labs CBC & Chem 7: 09/17/17 16:20 09/17/17 23:51 <Bert Yadav P - Last Filed: 09/18/17 05:15> Date of Encounter: 09/18/17 Internal Medicine - H&P: HPI History of present illness: Ms. Lacy is a 72 year old female All Systems PM: A 10-system review of systems was performed and is negative for pertinent findings except as documented above in the HPI. - Constitutional Vitals: Temp Pulse Resp BP Pulse Ox 97.2 F L 91 17 142/93 98 09/17/17 23:56 09/17/17 23:56 09/17/17 23:56 09/17/17 23:56 09/17/17 23:56 Internal Med - H&P Results - Labs CBC & Chem 7: 09/18/17 04:07 09/17/17 23:51 Labs: Short CBC 09/18/17 Range/Units 04:07 WBC 7.2 (4.3-11.1) K/mcL Hgb 8.8 L D (11.5-15.4) g/dL Hct 26.2 L (35.3-44.9) % Plt Count 377 (140-400) K/mcL Neutrophils # 4.5 (1.6-8.9) K/mcL BMP 09/17/17 23:51 Potassium 6.6 H* - Attending Attestation I examined this patient and my medical decision-making was reviewed with the Resident Physician. I agree with the documented findings, disposition and treatment plan as described except to the extent set forth below. agree with assessment and plan by resident physician.
[2017-09-18] MEDS ORDERED: 0.9 % Sodium Chloride 1,000 ML IVC SCH ×2 (04:15→05:52)
[2017-09-18 04:31] LABS: Basophils % 0.3 %; Eosinophils # 0.2 K/mcL (0.0-0.6); Eosinophils % 2.6 %; Hematocrit 26.2 % (35.3-44.9); Immature Granulocytes % 0.7 % (0-4); Lymphocytes # 1.8 K/mcL (0.6-4.6); Lymphocytes % 25.2 %; Mean Corpuscular HGB Conc 33.6 g/dL (31.6-35.5); Mean Corpuscular Hemoglobin 26.7 pg (28.0-33.3); Mean Corpuscular Volume 79.4 fL (83.0-100.0); Monocytes # 0.6 K/mcL (0.0-1.3); Monocytes % 8.4 %; Neutrophils # 4.5 K/mcL (1.6-8.9); Platelet Count 377 K/mcL (140-400); Red Cell Distribution Width 14.2 % (11.5-14.5); Segmented Neutrophils % 62.8 %
[2017-09-18 05:01] LABS: Hemoglobin 8.8 g/dL (11.5-15.4)
[2017-09-18] MEDS: *HR* Heparin 5,000 UNIT/ML VIAL SQ SCH ×3 (05:02→20:46)
[2017-09-18 05:22] LABS: Blood Urea Nitrogen > 130 mg/dL (8-23); Calcium 9.9 mg/dL (8.6-10.3); Carbon Dioxide 19 mEq/L (23-29); Chloride 99 mEq/L (98-107); Glucose 156 mg/dL (70-105); Potassium 6.7 mEq/L (3.5-5.1); Sodium 130 mEq/L (136-145); eGFR For African Americans 9 (> 60); eGFR For Non-African Americans 7 (> 60)
[2017-09-18] MEDS: Insulin LISPRO 300 UNITS/3 ML VIAL SQ SCH ×4 (08:02→22:37)
[2017-09-18] MEDS: Aspirin Enteric Coated 81 MG Tablet PO SCH (08:15)
[2017-09-18] MEDS: cefTRIAXone 1,000 MG in Water for inj. (sterile) 20 ML 10 ML IVP SCH (08:15)
[2017-09-18] MEDS ORDERED: Gabapentin 100 MG CAPSULE PO SCH (09:00)
--- NOTE | 2017-09-18 12:21 | Nephrology Consult Note ---
Date of Encounter: 09/18/17 Time of Encounter: 12:15 Assessment and Plan (1) MERNA (acute kidney injury) Current Visit: Yes Status: Acute Elevated SCr likely volume depletion as previous. N/v/D x 1 day likely uremia related Possible HD need, will reassess based on repeat potassium level Continue IVF, will increase rate from 60 to 125cc/hr Avoid nephrotoxins if possible (2) Hyperkalemia Current Visit: Yes Status: Acute current K at 6.7, awaiting kayexalate. Pt was unable to take overnight Will consider HD if persistent Renal diet advised (3) Chronic kidney disease, stage IV (severe) Current Visit: No Status: Chronic Baseline GFR in the teens, around 19 History of Present Illness - Reason for Consult Consult date: 09/18/17 Acute Kidney Injury, Chronic Kidney Disease, hyperkalemia Requesting physician: Bert Yadav - History of Present Illness 72 y o female with PMH of DM, HTN, stage 4 CKD and recurrent MERNA admitted with another bout of MERNA with SCR at 6.42 and potassium 8.2 and BUN >103. Pt wasjust discharged with similar issues 2 weeks prior with SCR down to 2.41 as of 2017 her baseline. This would make the 4th time in less than [address] Pt seen and examined with no family member present at bedside though he reports her son visits. Pt is a rather poor historian, most of the information obtained from records and prior knowledge of her. Past Med Surg Social Fam HX - Past Medical History Medical history: diabetes, hyperlipidemia, hypertension, renal disease, other Psychiatric history: no psych history - Past Surgical History Surgical History: appendectomy, cholecystectomy, hysterectomy - Social History Smoking Status: Never smoker Smokeless Tobacco Status: No Alcohol use: none Drug use: none - Family History Mother Living Status: Hx Family Cardiac Disorders: Yes Father Living Status: Hx Family Cardiac Disorders: Yes Medications and Allergies Metoprolol [Lopressor] 12.5 mg PO BID 03/01/16 [History] Insulin Glargine,Hum.rec.anlog [Lantus Solostar] 30 units SQ HS 07/10/17 [ History] Aspirin Enteric Coated [Aspirin EC] 81 mg PO DAILY 08/04/17 [History] Oxygen 2 l NS AD 08/04/17 [History] Gabapentin [Neurontin] 100 mg PO BID 09/17/17 [History] 3 Allergy/AdvReac Type Severity Reaction Status Date / Time acetaminophen [From Tylenol] Allergy See Verified 09/17/17 16:21 Comments Influenza Virus Vaccines Allergy See Verified 09/17/17 16:21 Comments Review of Systems All Systems: reviewed and no additional remarkable complaints except as stated ( 10 systems reviewed) Exam - Vital Signs Vital signs: Initial Vital Signs Temp Pulse Resp BP Pulse Ox 97.9 F 99 16 123/80 100 09/17/17 15:53 09/17/17 15:53 09/17/17 15:53 09/17/17 15:53 09/17/17 15:53 Vital Signs - Last 8 Hours Temp Pulse Resp BP Pulse Ox 09/18/17 12:06 98.3 F 85 18 113/70 98 09/18/17 07:55 99.0 F 103 18 104/60 97 09/18/17 05:13 98.3 F 94 16 134/74 98 Intake and Output 09/17/17 09/18/17 09/18/17 23:59 07:59 15:59 Intake Total 440 / 440 240 / 240 Output Total 800 / 800 Balance -360 / -360 240 / 240 Intake: Oral 440 / 440 240 / 240 Output: Catheter 800 / 800 Other: Meal Breakfast Percent of Meal Consumed 75% Blood Glucose* 125 319 - General Appearance General appearance: chronically ill, frail EENT: ATNC, mucous membranes dry Neck: no JVD, supple Respiratory: clear (ant bilat) Cardiology: no edema, normal S1, normal S2 Gastrointestinal: no tenderness, no guarding Integumentary: warm and dry Additional Comments: leg with dressing Neurologic: disoriented Musculoskeletal: no deformities Psychiatric: mood/affect appropriate Results - Lab Results 09/20/17 08:33 09/20/17 08:33 Most recent lab results Calcium 9.9 mg/dL (8.6-10.3) 09/18/17 04:07 Urine Creatinine 37 mg/dL 09/17/17 17:50 Urine Sodium 118.6 mEq/L 09/17/17 17:50 Consult Discharge Plan - Plan Referrals: Macario Diallo MD [Primary Care Provider] - 09/28/17 2:15 pm
[2017-09-18] MEDS: 0.9 % Sodium Chloride 1,000 ML IVC SCH ×2 (16:17→23:55)
[2017-09-18 16:46] LABS: Uric Acid 8.9 mg/dL (2.3-7.6)
--- NOTE | 2017-09-18 19:25 | Event Note ---
Date of Encounter: 09/18/17 Time of Encounter: 11:00 Nephrology consulted for acute renal failure with hyperkalemia Patient also being managed for hyponatremia
[2017-09-18] MEDS: Gabapentin 100 MG CAPSULE PO SCH (20:46)
[2017-09-19 00:23] LABS: Sodium, Urine 58.5 mEq/L
[2017-09-19] MEDS: *HR* Heparin 5,000 UNIT/ML VIAL SQ SCH ×3 (06:35→20:47)
[2017-09-19] MEDS: cefTRIAXone 1,000 MG in Water for inj. (sterile) 20 ML 10 ML IVP SCH (07:44)
[2017-09-19] MEDS: Aspirin Enteric Coated 81 MG Tablet PO SCH (07:44)
[2017-09-19] MEDS: 0.9 % Sodium Chloride 1,000 ML IVC SCH ×2 (07:45→16:02)
[2017-09-19] MEDS: Insulin LISPRO 300 UNITS/3 ML VIAL SQ SCH ×4 (07:47→20:48)
[2017-09-19 07:52] LABS: Basophils % 0.3 %; Eosinophils # 0.3 K/mcL (0.0-0.6); Eosinophils % 3.7 %; Hematocrit 23.6 % (35.3-44.9); Hemoglobin 7.6 g/dL (11.5-15.4); Immature Granulocytes % 1.5 % (0-4); Lymphocytes # 2.3 K/mcL (0.6-4.6); Lymphocytes % 34.2 %; Mean Corpuscular HGB Conc 32.2 g/dL (31.6-35.5); Mean Corpuscular Hemoglobin 26.9 pg (28.0-33.3); Mean Corpuscular Volume 83.4 fL (83.0-100.0); Mean Platelet Volume 8.6 fL (9.4-12.4); Monocytes # 0.6 K/mcL (0.0-1.3); Monocytes % 9.3 %; Neutrophils # 3.4 K/mcL (1.6-8.9); Platelet Count 306 K/mcL (140-400); Red Blood Count 2.83 M/mcL (3.82-4.97); Red Cell Distribution Width 14.4 % (11.5-14.5)
[2017-09-19 08:07] LABS: Potassium 4.8 mEq/L (3.5-5.1)
--- NOTE | 2017-09-19 14:00 | Nephrology Progress Note ---
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 pt reports feeling better. she reports her son came by and is arranging an alternative home for her on discharge away from her daughter and kids who fail to help her at home Objective - Vital Signs Vital signs: Vital Signs Temp Pulse Resp BP Pulse Ox 09/19/17 11:50 83 09/19/17 11:15 97.7 F 80 16 129/72 96 09/19/17 08:05 82 09/19/17 06:43 97.4 F L 84 16 108/77 99 09/19/17 03:39 98.6 F 83 16 122/69 97 09/19/17 00:00 97.8 F 84 14 134/64 98 09/18/17 20:45 91 09/18/17 19:43 98.5 F 87 18 102/73 97 09/18/17 15:45 97.4 F L 89 16 114/62 96 Intake and Output 09/18/17 09/19/17 09/19/17 23:59 07:59 15:59 Intake Total 1480 / 1480 1487 / 1487 1540 / 1540 Output Total 1200 / 1200 1999 / 1999 850 / 850 Balance 280 / 280 -513 / -513 690 / 690 Intake: IV Fluids 1000 / 1000 1010 / 1010 0.9 % Sodium Chloride 1,000 ML 1000 / 1000 1000 / 1000 @ 125 mls/hr IVC .Q8H [facility] Rx#: [id number] Rocephin 1,000 MG In Water for inj. (sterile) 10 ML @ 300 mls/ hr IVP DAILY [facility] Rx#:[id number] Oral 480 / 480 477 / 477 1540 / 1540 Output: Catheter 1200 / 1200 1999 850 / 850 Other: Meal Dinner Lunch Percent of Meal Consumed 90% 50% Weight 53.1 kg 53.1 kg Blood Glucose* 242 212 270 Patient Weight 09/19/17 23:59 Weight 53.1 kg - General Appearance General appearance: Present: chronically ill, frail EENT: Present: ATNC, mucous membranes moist Neck: Present: no JVD, supple Respiratory: Present: clear Cardiology: Present: no edema, normal S1, normal S2 Gastrointestinal: Present: no tenderness, no guarding Integumentary: Present: warm and dry Neurologic: Present: no focal deficit Musculoskeletal: Present: no deformities Psychiatric: Present: mood/affect appropriate, cooperative - Lab 09/20/17 08:33 09/20/17 08:33 Most recent lab results Calcium 8.0 mg/dL (8.6-10.3) L 09/19/17 07:45 Urine Creatinine 32 mg/dL 09/18/17 23:56 Urine Sodium 58.5 mEq/L 09/18/17 23:56 Consult Discharge Plan - Plan Referrals: Macario Diallo MD [Primary Care Provider] - 09/28/17 2:15 pm
--- NOTE | 2017-09-19 17:52 | Internal Med Progress Note ---
Date of Encounter: 09/19/17 Time of Encounter: 11:00 - Assessment and plan (1) Acute worsening of stage 4 chronic kidney disease Current Visit: No Status: Acute Assessment and plan: -Creatinine has improved to 3.63 today from 6.42 on admission; GFR has also increased from 6 on admission to 12 today -Nephrology following and appreciate recommendations. (2) Hyperkalemia Current Visit: Yes Status: Acute Assessment and plan: -Resolved; continue to monitor (3) Hyponatremia Current Visit: No Status: Resolved Assessment and plan: -Sodium correcting slowly over the past 2 days -Continue to monitor. (4) HLD (hyperlipidemia) Current Visit: Yes Status: Chronic Assessment and plan: Continue statin Qualifiers: Hyperlipidemia type: unspecified Qualified Code(s): E78.5 - Hyperlipidemia , unspecified (5) HTN (hypertension) Current Visit: Yes Status: Chronic Assessment and plan: Continue metoprolol tartrate Qualifiers: Hypertension type: essential hypertension Qualified Code(s): I10 - Essential (primary) hypertension (6) Anemia in chronic renal disease Current Visit: No Status: Chronic Assessment and plan: Continue iron sulfate Qualifiers: Chronic kidney disease stage: stage 4 (severe) Qualified Code(s): N18.4 - Chronic kidney disease, stage 4 (severe); D63.1 - Anemia in chronic kidney disease; D63.1 - Anemia in chronic kidney disease (7) Diabetic foot ulcers Current Visit: No Status: Chronic Assessment and plan: Continue to monitor Qualifiers: Diabetic foot ulcer location: midfoot Diabetes mellitus type: type 2 Laterality: unspecified laterality Non-pressure ulcer stage: limited to breakdown of skin Qualified Code(s): E11.621 - Type 2 diabetes mellitus with foot ulcer; L97.401 - Non-pressure chronic ulcer of unspecified heel and midfoot limited to breakdown of skin; L97.401 - Non-pressure chronic ulcer of unspecified heel and midfoot limited to breakdown of skin; L97.401 - Non- pressure chronic ulcer of unspecified heel and midfoot limited to breakdown of skin; L97.401 - Non-pressure chronic ulcer of unspecified heel and midfoot limited to breakdown of skin (8) DVT prophylaxis Current Visit: No Status: Acute Assessment and plan: Heparin subcutaneous - Subjective Interval history: Patient reports a feeling better this morning and denies any nausea/vomiting which were her presenting symptoms Acute renal slowly is improving and hyperkalemia has resolved; hyponatremia improving as well - Constitutional Vitals: Temp Pulse Resp BP Pulse Ox 97.7 F 76 18 143/63 98 09/19/17 15:36 09/19/17 15:36 09/19/17 15:36 09/19/17 15:36 09/19/17 15:36 General appearance: Present: A&O X 3, pleasant, no acute distress, answers questions appropriately - Respiratory Respiratory exam: Present: CTAB. Absent: accessory muscle use, rales, rhonchi, wheezes - Cardiovascular Cardiovascular exam: Present: RRR, +S1, +S2. Absent: diastolic murmur, gallop, rubs, systolic murmur Internal Medicine: Result - Labs CBC & Chem 7: 09/19/17 07:45 09/19/17 07:45 Labs: Short CBC 09/19/17 Range/Units 07:45 WBC 6.8 (4.3-11.1) K/mcL Hgb 7.6 L (11.5-15.4) g/dL Hct 23.6 L (35.3-44.9) % Plt Count 306 (140-400) K/mcL Neutrophils # 3.4 (1.6-8.9) K/mcL BMP 09/19/17 07:45 Sodium 131 L Potassium 4.8 Chloride 105 Carbon Dioxide 17 L BUN 102 H Creatinine 3.63 H Glucose 252 H Calcium 8.0 L - ABG Interpretation ABG results: PT/INR, D-dimer PT 12.8 Seconds (9.4-12.1) H 09/17/17 16:20 Consult Discharge Plan - Plan Referrals: Macario Diallo MD [Primary Care Provider] - 09/28/17 2:15 pm
[2017-09-19] MEDS: Gabapentin 100 MG CAPSULE PO SCH (20:46)
[2017-09-20] MEDS: 0.9 % Sodium Chloride 1,000 ML IVC SCH ×3 (00:55→16:44)
[2017-09-20] MEDS: *HR* Heparin 5,000 UNIT/ML VIAL SQ SCH ×3 (05:46→20:03)
[2017-09-20] MEDS: Aspirin Enteric Coated 81 MG Tablet PO SCH (07:49)
[2017-09-20] MEDS: cefTRIAXone 1,000 MG in Water for inj. (sterile) 20 ML 10 ML IVP SCH (07:49)
[2017-09-20] MEDS: Insulin LISPRO 300 UNITS/3 ML VIAL SQ SCH ×4 (07:50→20:38)
[2017-09-20 09:02] LABS: Basophils % 0.3 %; Eosinophils # 0.3 K/mcL (0.0-0.6); Eosinophils % 3.7 %; Hematocrit 22.9 % (35.3-44.9); Hemoglobin 7.1 g/dL (11.5-15.4); Immature Granulocytes % 3.7 % (0-4); Lymphocytes # 2.7 K/mcL (0.6-4.6); Lymphocytes % 37.1 %; Mean Corpuscular Hemoglobin 26.7 pg (28.0-33.3); Mean Corpuscular Volume 86.1 fL (83.0-100.0); Mean Platelet Volume 9.1 fL (9.4-12.4); Monocytes # 0.6 K/mcL (0.0-1.3); Monocytes % 8.8 %; Neutrophils # 3.4 K/mcL (1.6-8.9); Platelet Count 290 K/mcL (140-400); Red Blood Count 2.66 M/mcL (3.82-4.97); Red Cell Distribution Width 14.9 % (11.5-14.5); Segmented Neutrophils % 46.4 %
[2017-09-20 09:28] LABS: Calcium 7.7 mg/dL (8.6-10.3); Potassium 4.3 mEq/L (3.5-5.1)
--- NOTE | 2017-09-20 10:55 | Electrocardiograph Report ---
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
--- NOTE | 2017-09-20 13:47 | Nephrology Progress Note ---
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 time Continue to avoid nephrotoxins if possible Can stop IVF as long as she drinks enough fluids orally (2) Hyperkalemia Status: Resolved Potassium normalized at 4.3, continue renal diet (3) Chronic kidney disease, stage IV (severe) Status: Chronic Baseline GFR around 19 Subjective Interval history: Pt seen and examined with no new complaints Objective - Vital Signs Vital signs: Vital Signs Temp Pulse Resp BP Pulse Ox 09/20/17 12:08 74 09/20/17 10:20 97.4 F L 77 16 148/64 98 09/20/17 07:45 75 09/20/17 06:52 98.2 F 77 17 144/61 98 09/20/17 03:26 98.8 F 85 18 136/68 97 09/20/17 00:14 84 09/19/17 23:04 99.9 F H 85 18 171/64 96 09/19/17 21:00 85 09/19/17 18:15 97.8 F 79 18 156/75 100 09/19/17 15:36 97.7 F 76 18 143/63 98 Intake and Output 09/19/17 09/20/17 09/20/17 23:59 07:59 15:59 Intake Total 474 / 474 2009 730 / 730 Output Total 1250 / 1250 2800 / 2800 400 / 400 Balance -776 / -776 -790 / -790 330 / 330 Intake: IV Fluids 2009 0.9 % Sodium Chloride 1,000 ML 1999 / 1999 @ 125 mls/hr IVC .Q8H [facility] Rx#: [id number] Rocephin 1,000 MG In Water for inj. (sterile) 10 ML @ 300 mls/ hr IVP DAILY [facility] Rx#:[id number] Oral 474 / 474 720 / 720 Output: Catheter 1250 / 1250 2800 / 2800 400 / 400 Other: Meal Lunch Percent of Meal Consumed 90% Weight 57.924 kg Blood Glucose* 218 189 294 Patient Weight 09/20/17 23:59 Weight 57.924 kg - General Appearance General appearance: Present: chronically ill, frail EENT: Present: ATNC, mucous membranes moist Neck: Present: no JVD, supple Respiratory: Present: clear Cardiology: Present: no edema, normal S1, normal S2 Gastrointestinal: Present: no tenderness, no guarding Integumentary: Present: warm and dry Neurologic: Present: no focal deficit Musculoskeletal: Present: no deformities Psychiatric: Present: mood/affect appropriate, cooperative - Lab 09/28/17 05:52 09/28/17 05:52 Most recent lab results Calcium 7.7 mg/dL (8.6-10.3) L 09/20/17 08:33 Urine Creatinine 32 mg/dL 09/18/17 23:56 Urine Sodium 58.5 mEq/L 09/18/17 23:56 Consult Discharge Plan - Plan Instructions: Diabetes Mellitus Type 2 in Adults (DC), Hyperkalemia (DC), Chronic Hypertension (DC) Additional Instructions: 1. Please follow up with your primary care physician within one week. 2. Please continue all of your home medications as prescribed. 3. Please do not remove the naylor catheter unless the kidney specialists have other recommendations. 4. Please complete your labs (BMP and CBC) in 1 week and follow-up with [facility] 4-6 weeks after discharge. 5. Please return to the hospital for new or worsening symptoms. Referrals: [facility] [Provider Group] Macario Diallo MD [Primary Care Provider] - (PATIENT IS GOING TO [facility] NO PCP APPOINTMENT NEEDED)
--- NOTE | 2017-09-20 17:37 | Electrocardiograph Report ---
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
--- NOTE | 2017-09-20 17:41 | Electrocardiograph Report ---
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
--- NOTE | 2017-09-20 19:17 | Internal Med Progress Note ---
Date of Encounter: 09/20/17 Time of Encounter: 11:00 - Assessment and plan (1) Acute worsening of stage 4 chronic kidney disease Current Visit: No Status: Acute Assessment and plan: -Creatinine has improved to 2.51 today from 6.42 on admission -Nephrology following and appreciate recommendations. (2) Hyperkalemia Current Visit: Yes Status: Acute Assessment and plan: -Resolved; continue to monitor (3) Hyponatremia Current Visit: No Status: Resolved Assessment and plan: -Sodium correcting slowly over the past 2 days -Continue to monitor. (4) HLD (hyperlipidemia) Current Visit: Yes Status: Chronic Assessment and plan: Continue statin Qualifiers: Hyperlipidemia type: unspecified Qualified Code(s): E78.5 - Hyperlipidemia , unspecified (5) HTN (hypertension) Current Visit: Yes Status: Chronic Assessment and plan: Continue metoprolol tartrate Qualifiers: Hypertension type: essential hypertension Qualified Code(s): I10 - Essential (primary) hypertension (6) Anemia in chronic renal disease Current Visit: No Status: Chronic Assessment and plan: Continue iron sulfate Qualifiers: Chronic kidney disease stage: stage 4 (severe) Qualified Code(s): N18.4 - Chronic kidney disease, stage 4 (severe); D63.1 - Anemia in chronic kidney disease; D63.1 - Anemia in chronic kidney disease (7) Diabetic foot ulcers Current Visit: No Status: Chronic Assessment and plan: Continue to monitor Qualifiers: Diabetic foot ulcer location: midfoot Diabetes mellitus type: type 2 Laterality: unspecified laterality Non-pressure ulcer stage: limited to breakdown of skin Qualified Code(s): E11.621 - Type 2 diabetes mellitus with foot ulcer; L97.401 - Non-pressure chronic ulcer of unspecified heel and midfoot limited to breakdown of skin; L97.401 - Non-pressure chronic ulcer of unspecified heel and midfoot limited to breakdown of skin; L97.401 - Non- pressure chronic ulcer of unspecified heel and midfoot limited to breakdown of skin; L97.401 - Non-pressure chronic ulcer of unspecified heel and midfoot limited to breakdown of skin (8) DVT prophylaxis Current Visit: No Status: Acute Assessment and plan: Heparin subcutaneous - Subjective Interval history: Patient reports a feeling better this morning and denies any nausea/vomiting which were her presenting symptoms Acute renal slowly is improving and hyperkalemia has resolved; hyponatremia improving as well - Constitutional Vitals: Temp Pulse Resp BP Pulse Ox 97.5 F L 75 18 159/70 94 09/20/17 18:53 09/20/17 18:53 09/20/17 18:53 09/20/17 18:53 09/20/17 18:53 General appearance: Present: A&O X 3, pleasant, no acute distress, answers questions appropriately - Respiratory Respiratory exam: Present: CTAB. Absent: accessory muscle use, rales, rhonchi, wheezes - Cardiovascular Cardiovascular exam: Present: RRR, +S1, +S2. Absent: diastolic murmur, gallop, rubs, systolic murmur Internal Medicine: Result - Labs CBC & Chem 7: 09/20/17 08:33 09/20/17 08:33 Labs: Short CBC 09/20/17 Range/Units 08:33 WBC 7.3 (4.3-11.1) K/mcL Hgb 7.1 L (11.5-15.4) g/dL Hct 22.9 L (35.3-44.9) % Plt Count 290 (140-400) K/mcL Neutrophils # 3.4 (1.6-8.9) K/mcL BMP 09/20/17 08:33 Sodium 135 L Potassium 4.3 Chloride 110 H Carbon Dioxide 16 L BUN 70 H Creatinine 2.51 H Glucose 163 H Calcium 7.7 L - ABG Interpretation ABG results: PT/INR, D-dimer PT 12.8 Seconds (9.4-12.1) H 09/17/17 16:20 Consult Discharge Plan - Plan Referrals: Macario Diallo MD [Primary Care Provider] - 09/28/17 2:15 pm
[2017-09-20] MEDS: Gabapentin 100 MG CAPSULE PO SCH (20:03)
[2017-09-21] MEDS: 0.9 % Sodium Chloride 1,000 ML IVC SCH ×3 (00:42→16:54)
[2017-09-21] MEDS: *HR* Heparin 5,000 UNIT/ML VIAL SQ SCH ×3 (06:23→21:56)
[2017-09-21] MEDS: Aspirin Enteric Coated 81 MG Tablet PO SCH (09:25)
[2017-09-21] MEDS: Insulin LISPRO 300 UNITS/3 ML VIAL SQ SCH ×4 (09:31→22:38)
[2017-09-21 10:51] LABS: Basophils % 0.2 %; Eosinophils # 0.3 K/mcL (0.0-0.6); Eosinophils % 3.4 %; Hematocrit 23.6 % (35.3-44.9); Hemoglobin 7.4 g/dL (11.5-15.4); Immature Granulocytes % 2.5 % (0-4); Lymphocytes # 2.1 K/mcL (0.6-4.6); Lymphocytes % 25.8 %; Mean Corpuscular HGB Conc 31.4 g/dL (31.6-35.5); Mean Corpuscular Hemoglobin 26.6 pg (28.0-33.3); Mean Corpuscular Volume 84.9 fL (83.0-100.0); Mean Platelet Volume 9.1 fL (9.4-12.4); Monocytes # 0.8 K/mcL (0.0-1.3); Monocytes % 9.4 %; Neutrophils # 4.9 K/mcL (1.6-8.9); Platelet Count 286 K/mcL (140-400); Red Blood Count 2.78 M/mcL (3.82-4.97); Red Cell Distribution Width 14.9 % (11.5-14.5); Segmented Neutrophils % 58.7 %
[2017-09-21 11:10] LABS: Calcium 7.6 mg/dL (8.6-10.3); Potassium 4.4 mEq/L (3.5-5.1)
--- NOTE | 2017-09-21 17:19 | Internal Med Progress Note ---
Date of Encounter: 09/21/17 Time of Encounter: 11:00 - Assessment and plan (1) Acute worsening of stage 4 chronic kidney disease Current Visit: No Status: Acute Assessment and plan: -Patient with improving acute renal failure Creatinine 2.28 today and was 2.51 yesterday; creatinine was 6.42 on admission -Nephrology following and appreciate recommendations. (2) Hyperkalemia Current Visit: Yes Status: Acute Assessment and plan: -Resolved; continue to monitor (3) Hyponatremia Current Visit: No Status: Resolved Assessment and plan: -Sodium correcting slowly -Sodium was 119 on admission 09/17/17 and today 09/21/17 is 134 -Continue to monitor. (4) HLD (hyperlipidemia) Current Visit: Yes Status: Chronic Assessment and plan: Continue statin Qualifiers: Hyperlipidemia type: unspecified Qualified Code(s): E78.5 - Hyperlipidemia , unspecified (5) HTN (hypertension) Current Visit: Yes Status: Chronic Assessment and plan: Continue metoprolol tartrate Qualifiers: Hypertension type: essential hypertension Qualified Code(s): I10 - Essential (primary) hypertension (6) Anemia in chronic renal disease Current Visit: No Status: Chronic Assessment and plan: Continue iron sulfate Qualifiers: Chronic kidney disease stage: stage 4 (severe) Qualified Code(s): N18.4 - Chronic kidney disease, stage 4 (severe); D63.1 - Anemia in chronic kidney disease; D63.1 - Anemia in chronic kidney disease (7) Diabetic foot ulcers Current Visit: No Status: Chronic Assessment and plan: Continue to monitor Qualifiers: Diabetic foot ulcer location: midfoot Diabetes mellitus type: type 2 Laterality: unspecified laterality Non-pressure ulcer stage: limited to breakdown of skin Qualified Code(s): E11.621 - Type 2 diabetes mellitus with foot ulcer; L97.401 - Non-pressure chronic ulcer of unspecified heel and midfoot limited to breakdown of skin; L97.401 - Non-pressure chronic ulcer of unspecified heel and midfoot limited to breakdown of skin; L97.401 - Non- pressure chronic ulcer of unspecified heel and midfoot limited to breakdown of skin; L97.401 - Non-pressure chronic ulcer of unspecified heel and midfoot limited to breakdown of skin (8) DVT prophylaxis Current Visit: No Status: Acute Assessment and plan: Heparin subcutaneous - Subjective Interval history: Patient reports a feeling better this morning and denies any nausea/vomiting which were her presenting symptoms Acute renal failure slowly is improving and hyperkalemia has resolved; hyponatremia improving as well - Constitutional Vitals: Temp Pulse Resp BP Pulse Ox 100.2 F H 80 18 136/57 97 09/21/17 16:20 09/21/17 16:20 09/21/17 16:20 09/21/17 16:20 09/21/17 16:20 General appearance: Present: A&O X 3, pleasant, no acute distress, answers questions appropriately - Respiratory Respiratory exam: Present: CTAB. Absent: accessory muscle use, rales, rhonchi, wheezes - Cardiovascular Cardiovascular exam: Present: RRR, +S1, +S2. Absent: diastolic murmur, gallop, rubs, systolic murmur - GI/Abdominal GI/Abdominal exam: Present: normal bowel sounds, soft, no peritoneal signs. Absent: distended, tenderness - Extremities Exam Extremities exam: Absent: pedal edema Internal Medicine: Result - Labs CBC & Chem 7: 09/21/17 10:37 09/21/17 10:37 Labs: Short CBC 09/21/17 Range/Units 10:37 WBC 8.3 (4.3-11.1) K/mcL Hgb 7.4 L (11.5-15.4) g/dL Hct 23.6 L (35.3-44.9) % Plt Count 286 (140-400) K/mcL Neutrophils # 4.9 (1.6-8.9) K/mcL BMP 09/21/17 10:37 Sodium 134 L Potassium 4.4 Chloride 111 H Carbon Dioxide 17 L BUN 57 H Creatinine 2.28 H Glucose 304 H Calcium 7.6 L - ABG Interpretation ABG results: PT/INR, D-dimer PT 12.8 Seconds (9.4-12.1) H 09/17/17 16:20 Consult Discharge Plan - Plan Referrals: Macario Diallo MD [Primary Care Provider] - 09/28/17 2:15 pm
--- NOTE | 2017-09-21 17:26 | Nephrology Progress Note ---
Date of Encounter: 09/21/17 Time of Encounter: 11:45 - Assessment and Plan (1) MERNA (acute kidney injury) Status: Acute SCr improving at 2.28, GFR 21 which is baseline and better, can stop IVF at this point UOP great at 3950cc in the past 24hrs No acute indication for TRIBAL DELEGATE at this time Continue to avoid nephrotoxins if possible Can stop IVF as long as she drinks enough fluids orally (2) Hyperkalemia Status: Resolved Potassium normalized, continue renal diet (3) Chronic kidney disease, stage IV (severe) Status: Chronic Baseline GFR around 19 Subjective Interval history: Pt seen and examined worried about where she would go on discharge. son apparently taking care of this but not present at bedside Objective - Vital Signs Vital signs: Vital Signs Temp Pulse Resp BP Pulse Ox 09/21/17 16:20 100.2 F H 80 18 136/57 97 09/21/17 16:15 80 09/21/17 11:09 98.1 F 74 19 143/58 99 09/21/17 07:15 98.7 F 80 18 129/58 97 09/21/17 04:50 97.7 F 85 18 140/76 95 09/20/17 23:33 97.9 F 79 18 141/71 96 09/20/17 18:53 97.5 F L 75 18 159/70 94 Intake and Output 09/21/17 09/21/17 09/21/17 07:59 15:59 23:59 Intake Total 1600 / 1600 2100 / 2100 1000 / 1000 Output Total 950 / 950 1900 / 1900 600 / 600 Balance 650 / 650 200 / 200 400 / 400 Intake: IV Fluids 1000 / 1000 1000 / 1000 1000 / 1000 0.9 % Sodium Chloride 1,000 ML 1000 / 1000 1000 / 1000 1000 / 1000 @ 125 mls/hr IVC .Q8H [facility] Rx#: [id number] Oral 600 / 600 1100 / 1100 Output: Urine 950 / 950 1900 / 1900 600 / 600 Other: Meal Lunch Percent of Meal Consumed 15% Stool Size Small Stool Consistency soft Stool Color Brown Weight 58.2 kg Blood Glucose* 259 317 208 Patient Weight 09/21/17 23:59 Weight 58.2 kg - General Appearance General appearance: Present: chronically ill EENT: Present: ATNC, mucous membranes moist Neck: Present: no JVD, supple Respiratory: Present: clear Cardiology: Present: no edema, normal S1, normal S2 Gastrointestinal: Present: no tenderness, no guarding Integumentary: Present: warm and dry Neurologic: Present: no focal deficit Musculoskeletal: Present: no deformities Psychiatric: Present: mood/affect appropriate - Lab 09/28/17 05:52 09/28/17 05:52 Most recent lab results Calcium 7.6 mg/dL (8.6-10.3) L 09/21/17 10:37 Urine Creatinine 32 mg/dL 09/18/17 23:56 Urine Sodium 58.5 mEq/L 09/18/17 23:56 Consult Discharge Plan - Plan Instructions: Diabetes Mellitus Type 2 in Adults (DC), Hyperkalemia (DC), Chronic Hypertension (DC) Additional Instructions: 1. Please follow up with your primary care physician within one week. 2. Please continue all of your home medications as prescribed. 3. Please do not remove the naylor catheter unless the kidney specialists have other recommendations. 4. Please complete your labs (BMP and CBC) in 1 week and follow-up with [facility] 4-6 weeks after discharge. 5. Please return to the hospital for new or worsening symptoms. Referrals: [facility] [Provider Group] Macario Diallo MD [Primary Care Provider] - (PATIENT IS GOING TO [facility] NO PCP APPOINTMENT NEEDED)
[2017-09-21] MEDS: Gabapentin 100 MG CAPSULE PO SCH (21:55)
[2017-09-22] MEDS: *HR* Heparin 5,000 UNIT/ML VIAL SQ SCH ×3 (06:27→21:41)
--- NOTE | 2017-09-22 07:52 | Internal Med Progress Note ---
<Alonzo Alvarez - Last Filed: 09/22/17 16:03> Date of Encounter: 09/22/17 Time of Encounter: 07:50 - Assessment and plan (1) Acute worsening of stage 4 chronic kidney disease Current Visit: No Status: Acute Assessment and plan: Cr improving at 2.28; UOP 3950cc in the past 24hrs -Per the recommendation of nephrology: -No acute indication for TABLE RUNNER at this time -Avoid nephrotoxins if possible -Stop IVF -Encourage oral fluids (2) Hyperkalemia Current Visit: No Status: Resolved Assessment and plan: -Resolved; continue to monitor -Last potassium was 4.4 (3) Diabetes mellitus Current Visit: No Status: Chronic Assessment and plan: -Sliding scale insulin -Glucose this morning was elevated at 304 -ADA diet Qualifiers: Diabetes mellitus type: type 2 Diabetes mellitus complication status: with skin complications Diabetes mellitus complication detail: with foot ulcer Diabetes mellitus termite control servicer insulin use: with termite control servicer use Qualified Code(s) : E11.621 - Type 2 diabetes mellitus with foot ulcer; L97.509 - Non-pressure chronic ulcer of other part of unspecified foot with unspecified severity; L97.509 - Non-pressure chronic ulcer of other part of unspecified foot with unspecified severity; L97.509 - Non-pressure chronic ulcer of other part of unspecified foot with unspecified severity; L97.509 - Non-pressure chronic ulcer of other part of unspecified foot with unspecified severity; Z79.4 - custodial (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; Z79.4 - intermediate card tender (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; Z79.4 - intermediate card tender (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; Z79.4 - custodial (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 (4) Hyponatremia Current Visit: No Status: Resolved Assessment and plan: -Sodium correcting slowly -Sodium was 119 on admission 09/17/17 and today 09/22/17 is 134 -Continue to monitor (5) HLD (hyperlipidemia) Current Visit: Yes Status: Chronic Assessment and plan: -Zocor 10 mg PO HS Qualifiers: Hyperlipidemia type: unspecified Qualified Code(s): E78.5 - Hyperlipidemia , unspecified (6) HTN (hypertension) Current Visit: Yes Status: Chronic Assessment and plan: -Metoprolol tartrate 12.5 mg PO BID Qualifiers: Hypertension type: essential hypertension Qualified Code(s): I10 - Essential (primary) hypertension (7) Anemia in chronic renal disease Current Visit: No Status: Chronic Assessment and plan: -Continue iron sulfate -Last hemoglobin was 7.4 Qualifiers: Chronic kidney disease stage: stage 4 (severe) Qualified Code(s): N18.4 - Chronic kidney disease, stage 4 (severe); D63.1 - Anemia in chronic kidney disease; D63.1 - Anemia in chronic kidney disease (8) Diabetic foot ulcers Current Visit: No Status: Chronic Assessment and plan: -Continue to monitor Qualifiers: Diabetic foot ulcer location: midfoot Diabetes mellitus type: type 2 Laterality: unspecified laterality Non-pressure ulcer stage: limited to breakdown of skin Qualified Code(s): E11.621 - Type 2 diabetes mellitus with foot ulcer; L97.401 - Non-pressure chronic ulcer of unspecified heel and midfoot limited to breakdown of skin; L97.401 - Non-pressure chronic ulcer of unspecified heel and midfoot limited to breakdown of skin; L97.401 - Non- pressure chronic ulcer of unspecified heel and midfoot limited to breakdown of skin; L97.401 - Non-pressure chronic ulcer of unspecified heel and midfoot limited to breakdown of skin (9) DVT prophylaxis Current Visit: No Status: Acute Assessment and plan: -Heparin 5000 SQ 12 - Subjective Interval history: Ms. Lacy is a 72 year old female with a PMH of CKD stage IV, DM, HTN, and HLD who presented to the ED on 09/17/17 with the chief complaint of N, V, D x 1 day. Reported poor PO intake. Denied any new food exposure, recent travel, or recent antibiotic use. Denied abdominal pain except some while actively vomiting. Work up was significant for K 8.2, Na 119, Cr 6.42. UA with cloudy urine > 300 protein, Large leukocyte esterase, TNTC WBCs, TNTC RBCs, many Squamous epithelium, moderate bacteria. Nephrology was consulted. Patient had recent admission 2 weeks ago for same problems N,V,D leading to MERNA on CKD and hyperkalemia. Patient was given: albuterol, calcium gluconate, insulin, sodium bicarb, kayexalate, and 2L NS. Patient was seen and examined at bedside this morning. States that she is feeling well today. Complains of a minor sore throat. No additional complaints at this time. - Constitutional Vitals: Temp Pulse Resp BP Pulse Ox 97.6 F 72 14 161/80 92 09/22/17 06:51 09/22/17 06:51 09/22/17 06:51 09/22/17 06:51 09/22/17 06:51 General appearance: Present: A&O X 3, pleasant, no acute distress, answers questions appropriately - Head Head exam: Present: atraumatic, normocephalic - Eye Eye exam: Present: PERRL, conjuntiva pink, sclera anicteric Pupils: Present: PERRL - Neck Neck exam general surgery: Present: supple, trachea midline. Absent: lymphadenopathy - Respiratory Respiratory exam: Present: CTAB. Absent: accessory muscle use, rales, rhonchi, wheezes - Cardiovascular Cardiovascular exam: Present: RRR, +S1, +S2. Absent: diastolic murmur, gallop, rubs, systolic murmur - GI/Abdominal GI/Abdominal exam: Present: normal bowel sounds, soft, no peritoneal signs. Absent: distended, tenderness - Extremities Exam Extremities exam: Present: warm, radial pulses palpable and symmetrical. Absent : calf tenderness, cyanotic, pedal edema - Neurological Exam Neurological exam: Present: CN II-XII intact, oriented X3, no focal deficits. Absent: pronater drift, facial droop, speech deficit - Skin Skin exam: Present: dry, intact Internal Medicine: Result - Labs CBC & Chem 7: 09/22/17 08:04 09/22/17 08:04 Labs: Short CBC 09/21/17 Range/Units 10:37 WBC 8.3 (4.3-11.1) K/mcL Hgb 7.4 L (11.5-15.4) g/dL Hct 23.6 L (35.3-44.9) % Plt Count 286 (140-400) K/mcL Neutrophils # 4.9 (1.6-8.9) K/mcL BMP 09/21/17 10:37 Sodium 134 L Potassium 4.4 Chloride 111 H Carbon Dioxide 17 L BUN 57 H Creatinine 2.28 H Glucose 304 H Calcium 7.6 L - ABG Interpretation ABG results: PT/INR, D-dimer PT 12.8 Seconds (9.4-12.1) H 09/17/17 16:20 Consult Discharge Plan - Plan Referrals: Macario Diallo MD [Primary Care Provider] - ([facility]ING [facility] NO PCP APPOINTMENT NEEDED) <Anthony Barajas - Last Filed: 09/22/17 18:07> Date of Encounter: 09/22/17 - Constitutional Vitals: Temp Pulse Resp BP Pulse Ox 98.6 F 85 16 146/77 100 09/22/17 16:21 09/22/17 16:21 09/22/17 16:21 09/22/17 16:21 09/22/17 16:21 Internal Medicine: Result - Labs CBC & Chem 7: 09/22/17 08:04 09/22/17 08:04 Labs: Short CBC 09/22/17 Range/Units 08:04 WBC 11.0 (4.3-11.1) K/mcL Hgb 7.5 L (11.5-15.4) g/dL Hct 24.0 L (35.3-44.9) % Plt Count 271 (140-400) K/mcL Neutrophils # 7.3 (1.6-8.9) K/mcL BMP 09/22/17 08:04 Sodium 136 Potassium 4.1 Chloride 113 H Carbon Dioxide 17 L BUN 49 H Creatinine 2.08 H Glucose 171 H Calcium 7.9 L - ABG Interpretation ABG results: PT/INR, D-dimer PT 12.8 Seconds (9.4-12.1) H 09/17/17 16:20 - Attending Attestation I personally interviewed and examined this patient. I agree with the findings, assessment, and plan of Dr. Alvarez, internal medicine planning intern. Patient is significantly improved. She is now on orals and we expect her to creatinine to further improve tomorrow. Nephrology input is appreciated. She will continue to avoid nephrotoxins. If she continues to improve anticipate discharge in the morning.
[2017-09-22] MEDS: Insulin LISPRO 300 UNITS/3 ML VIAL SQ SCH ×4 (08:12→21:40)
[2017-09-22 08:13] LABS: Basophils % 0.2 %; Eosinophils # 0.3 K/mcL (0.0-0.6); Eosinophils % 2.5 %; Hemoglobin 7.5 g/dL (11.5-15.4); Immature Granulocytes % 2.2 % (0-4); Lymphocytes # 2.3 K/mcL (0.6-4.6); Lymphocytes % 21.2 %; Mean Corpuscular HGB Conc 31.3 g/dL (31.6-35.5); Mean Corpuscular Hemoglobin 26.7 pg (28.0-33.3); Mean Corpuscular Volume 85.4 fL (83.0-100.0); Mean Platelet Volume 8.9 fL (9.4-12.4); Monocytes # 0.8 K/mcL (0.0-1.3); Monocytes % 7.2 %; Neutrophils # 7.3 K/mcL (1.6-8.9); Platelet Count 271 K/mcL (140-400); Red Blood Count 2.81 M/mcL (3.82-4.97); Red Cell Distribution Width 15.1 % (11.5-14.5); Segmented Neutrophils % 66.7 %
[2017-09-22] MEDS: Aspirin Enteric Coated 81 MG Tablet PO SCH (08:16)
[2017-09-22 08:32] LABS: Calcium 7.9 mg/dL (8.6-10.3); Potassium 4.1 mEq/L (3.5-5.1)
--- NOTE | 2017-09-22 12:24 | Nephrology Progress Note ---
<Michael Scanlonjose Elias - Last Filed: 09/22/17 12:25> Date of Encounter: 09/22/17 Time of Encounter: 12:20 - Assessment and Plan (1) MERNA (acute kidney injury) Status: Acute Resolving-Scr 2.08, GFR 23 Better than baseline at this point. D/C naylor cath; see if patient voids; bladder scan in 6 hours-nurse notified Encourage p.o fluids Avoid nephrotoxins if possible Recommend placement in a rehab facility (2) Chronic kidney disease, stage IV (severe) Status: Chronic see above Baseline GFR around 19 Subjective Principal diagnosis: MERNA, CKD stage 4 Interval history: Patient seen and examined. States she is doing well. Objective - Vital Signs Vital signs: Vital Signs Temp Pulse Resp BP Pulse Ox 09/22/17 11:08 98.0 F 74 14 123/59 97 09/22/17 11:05 76 09/22/17 08:15 73 09/22/17 06:51 97.6 F 72 14 161/80 92 09/22/17 04:42 97.9 F 72 18 123/88 98 09/21/17 23:21 98.2 F 76 21 140/74 98 09/21/17 18:46 99.9 F H 91 19 144/63 97 09/21/17 16:20 100.2 F H 80 18 136/57 97 09/21/17 16:15 80 Intake and Output 09/21/17 09/22/17 09/22/17 23:59 07:59 15:59 Intake Total 1200 / 1200 0 / 0 460 / 460 Output Total 1900 / 1900 0 / 0 0 / 0 Balance -700 / -700 0 / 0 460 / 460 Intake: IV Fluids 1000 / 1000 0.9 % Sodium Chloride 1,000 ML 1000 / 1000 @ 125 mls/hr IVC .Q8H [facility] Rx#: [id number] Oral 200 / 200 0 / 0 460 / 460 Output: Urine 900 / 900 Catheter 1000 / 1000 0 / 0 0 / 0 Urethral (Naylor) 750 / 750 Other: Meal Dinner Breakfast Percent of Meal Consumed 5% 100% Weight 59.4 kg Blood Glucose* 192 135 332 Patient Weight 09/22/17 23:59 Weight 59.4 kg - General Appearance General appearance: Present: well-developed, well-nourished EENT: Present: ATNC, mucous membranes moist, hearing intact, vision intact Neck: Present: supple Respiratory: Present: clear Cardiology: Present: no edema, normal S1, normal S2 Gastrointestinal: Present: no tenderness, no guarding Integumentary: Present: warm and dry Neurologic: Present: alert and oriented x3 Psychiatric: Present: mood/affect appropriate, cooperative - Lab 09/22/17 08:04 09/22/17 08:04 Most recent lab results Calcium 7.9 mg/dL (8.6-10.3) L 09/22/17 08:04 Urine Creatinine 32 mg/dL 09/18/17 23:56 Urine Sodium 58.5 mEq/L 09/18/17 23:56 Consult Discharge Plan - Plan Instructions: Diabetes Mellitus Type 2 in Adults (DC), Hyperkalemia (DC), Chronic Hypertension (DC) Additional Instructions: 1. Please follow up with your primary care physician within one week. 2. Please continue all of your home medications as prescribed. 3. Please do not remove the naylor catheter unless the kidney specialists have other recommendations. 4. Please complete your labs (BMP and CBC) in 1 week and follow-up with [facility] 4-6 weeks after discharge. 5. Please return to the hospital for new or worsening symptoms. Referrals: [facility] [Provider Group] Macario Diallo MD [Primary Care Provider] - (PATIENT IS GOING TO [facility] NO PCP APPOINTMENT NEEDED) <Layla Dennis - Last Filed: 10/05/17 16:20> Date of Encounter: 09/22/17 - Assessment and Plan (1) MERNA (acute kidney injury) Status: Acute (2) Hyperkalemia Status: Resolved (3) Chronic kidney disease, stage IV (severe) Status: Chronic Objective - Lab 09/28/17 05:52 09/28/17 05:52 Most recent lab results Calcium 8.7 mg/dL (8.6-10.3) 09/28/17 05:52 Phosphorus 4.1 mg/dL (2.7-4.5) 09/28/17 05:52 Magnesium 1.8 mg/dL (1.6-2.6) 09/28/17 05:52 Urine Creatinine 32 mg/dL 09/18/17 23:56 Urine Sodium 87.5 mEq/L 09/27/17 07:20 - Attending Attestation I examined this patient and my medical decision-making was reviewed with the Resident Physician/CNC MILL OPERATOR. I agree with the documented findings, disposition and treatment plan as described except to the extent set forth below. Pt seen and examined with no new complaints, awaiting discharge planning. Will discontinue naylor and monitor voiding for signs of retention with bladder scan if not adequately voiding within 6 hours. Continue to encouraged po fluids. Avoid nephrotoxins if possible.
[2017-09-22] MEDS ORDERED: Chloraseptic Spray 177 ML BOTTLE MM PRN (16:03)
[2017-09-22] MEDS: Gabapentin 100 MG CAPSULE PO SCH (21:41)
[2017-09-23] MEDS: *HR* Heparin 5,000 UNIT/ML VIAL SQ SCH ×3 (05:59→20:58)
[2017-09-23 07:32] LABS: Hematocrit 22.6 % (35.3-44.9); Hemoglobin 7.2 g/dL (11.5-15.4); Mean Corpuscular HGB Conc 31.9 g/dL (31.6-35.5); Mean Corpuscular Hemoglobin 26.8 pg (28.0-33.3); Platelet Count 284 K/mcL (140-400); Red Blood Count 2.69 M/mcL (3.82-4.97); Red Cell Distribution Width 15.2 % (11.5-14.5)
[2017-09-23] MEDS: Aspirin Enteric Coated 81 MG Tablet PO SCH (07:45)
[2017-09-23] MEDS: Insulin LISPRO 300 UNITS/3 ML VIAL SQ SCH ×4 (07:46→20:58)
[2017-09-23 07:58] LABS: Calcium 7.9 mg/dL (8.6-10.3); Potassium 4.6 mEq/L (3.5-5.1)
--- NOTE | 2017-09-23 09:54 | Internal Med Progress Note ---
<Alonzo Alvarez - Last Filed: 09/23/17 13:21> Date of Encounter: 09/23/17 Time of Encounter: 09:52 - Assessment and plan (1) Acute worsening of stage 4 chronic kidney disease Current Visit: No Status: Acute Assessment and plan: Cr improving; 2.32 this morning Per the recommendation of nephrology: -D/C naylor cath; see if patient voids; bladder scan in 6 hours-nurse notified -Encourage p.o fluids -Avoid nephrotoxins if possible -Recommend placement in a rehab facility (2) Hyperkalemia Current Visit: No Status: Resolved Assessment and plan: -Resolved; continue to monitor -Last potassium was 4.6 (3) Diabetes mellitus Current Visit: No Status: Chronic Assessment and plan: -Sliding scale insulin -Last glucose was 250 -ADA diet Qualifiers: Diabetes mellitus type: type 2 Diabetes mellitus complication status: with skin complications Diabetes mellitus complication detail: with foot ulcer Diabetes mellitus terminal worker insulin use: with care home use Qualified Code(s) : E11.621 - Type 2 diabetes mellitus with foot ulcer; L97.509 - Non-pressure chronic ulcer of other part of unspecified foot with unspecified severity; L97.509 - Non-pressure chronic ulcer of other part of unspecified foot with unspecified severity; L97.509 - Non-pressure chronic ulcer of other part of unspecified foot with unspecified severity; L97.509 - Non-pressure chronic ulcer of other part of unspecified foot with unspecified severity; Z79.4 - terminal clerk (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; Z79.4 - terminal clerk (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; Z79.4 - terminal clerk (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; Z79.4 - nursing home (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 (4) Hyponatremia Current Visit: No Status: Resolved Assessment and plan: -Sodium correcting slowly -Sodium was 119 on admission 09/17/17 and today is 132 -Continue to monitor (5) HLD (hyperlipidemia) Current Visit: Yes Status: Chronic Assessment and plan: -Zocor 10 mg PO HS Qualifiers: Hyperlipidemia type: unspecified Qualified Code(s): E78.5 - Hyperlipidemia , unspecified (6) HTN (hypertension) Current Visit: Yes Status: Chronic Assessment and plan: -Metoprolol tartrate 12.5 mg PO BID Qualifiers: Hypertension type: essential hypertension Qualified Code(s): I10 - Essential (primary) hypertension (7) Anemia in chronic renal disease Current Visit: No Status: Chronic Assessment and plan: -Continue iron sulfate -Last hemoglobin was 7.2 Qualifiers: Chronic kidney disease stage: stage 4 (severe) Qualified Code(s): N18.4 - Chronic kidney disease, stage 4 (severe); D63.1 - Anemia in chronic kidney disease; D63.1 - Anemia in chronic kidney disease (8) Diabetic foot ulcers Current Visit: No Status: Chronic Assessment and plan: -Continue to monitor Qualifiers: Diabetic foot ulcer location: midfoot Diabetes mellitus type: type 2 Laterality: unspecified laterality Non-pressure ulcer stage: limited to breakdown of skin Qualified Code(s): E11.621 - Type 2 diabetes mellitus with foot ulcer; L97.401 - Non-pressure chronic ulcer of unspecified heel and midfoot limited to breakdown of skin; L97.401 - Non-pressure chronic ulcer of unspecified heel and midfoot limited to breakdown of skin; L97.401 - Non- pressure chronic ulcer of unspecified heel and midfoot limited to breakdown of skin; L97.401 - Non-pressure chronic ulcer of unspecified heel and midfoot limited to breakdown of skin (9) DVT prophylaxis Current Visit: No Status: Acute Assessment and plan: -Heparin 5000 SQ 12 - Subjective Interval history: Patient was seen and examined at bedside this morning. States that she is feeling well today. Complains of a minor sore throat. No additional complaints at this time. - Constitutional Vitals: Temp Pulse Resp BP Pulse Ox 99.7 F H 89 14 110/55 96 09/23/17 07:00 09/23/17 07:00 09/23/17 07:00 09/23/17 07:00 09/23/17 08:08 General appearance: Present: A&O X 3, pleasant, no acute distress, answers questions appropriately - Head Head exam: Present: atraumatic, normocephalic - Eye Eye exam: Present: PERRL, conjuntiva pink, sclera anicteric Pupils: Present: PERRL - Neck Neck exam general surgery: Present: supple, trachea midline. Absent: lymphadenopathy - Respiratory Respiratory exam: Present: CTAB. Absent: accessory muscle use, rales, rhonchi, wheezes - Cardiovascular Cardiovascular exam: Present: RRR, +S1, +S2. Absent: diastolic murmur, gallop, rubs, systolic murmur - GI/Abdominal GI/Abdominal exam: Present: normal bowel sounds, soft, no peritoneal signs. Absent: distended, tenderness - Extremities Exam Extremities exam: Present: warm, radial pulses palpable and symmetrical. Absent : calf tenderness, cyanotic, pedal edema - Neurological Exam Neurological exam: Present: CN II-XII intact, oriented X3, no focal deficits. Absent: pronater drift, facial droop, speech deficit - Skin Skin exam: Present: dry, intact Internal Medicine: Result - Labs CBC & Chem 7: 09/23/17 07:18 09/23/17 07:18 Labs: Short CBC 09/23/17 Range/Units 07:18 WBC 12.0 H (4.3-11.1) K/mcL Hgb 7.2 L (11.5-15.4) g/dL Hct 22.6 L (35.3-44.9) % Plt Count 284 (140-400) K/mcL BMP 09/23/17 07:18 Sodium 132 L Potassium 4.6 Chloride 109 H Carbon Dioxide 16 L BUN 52 H Creatinine 2.32 H Glucose 210 H Calcium 7.9 L - ABG Interpretation ABG results: PT/INR, D-dimer PT 12.8 Seconds (9.4-12.1) H 09/17/17 16:20 Consult Discharge Plan - Plan Referrals: Macario Diallo MD [Primary Care Provider] - ([facility]CP APPOINTMENT NEEDED) <Anthony Barajas - Last Filed: 09/23/17 13:26> Date of Encounter: 09/23/17 - Constitutional Vitals: Temp Pulse Resp BP Pulse Ox 98.7 F 106 14 104/57 95 09/23/17 10:28 09/23/17 10:28 09/23/17 10:28 09/23/17 10:28 09/23/17 10:28 Internal Medicine: Result - Labs CBC & Chem 7: 09/23/17 07:18 09/23/17 07:18 Labs: Short CBC 09/23/17 Range/Units 07:18 WBC 12.0 H (4.3-11.1) K/mcL Hgb 7.2 L (11.5-15.4) g/dL Hct 22.6 L (35.3-44.9) % Plt Count 284 (140-400) K/mcL BMP 09/23/17 07:18 Sodium 132 L Potassium 4.6 Chloride 109 H Carbon Dioxide 16 L BUN 52 H Creatinine 2.32 H Glucose 210 H Calcium 7.9 L - ABG Interpretation ABG results: PT/INR, D-dimer PT 12.8 Seconds (9.4-12.1) H 09/17/17 16:20 - Attending Attestation I personally interviewed and examined this patient. I reviewed the findings, assessment, and plan of Dr. Alvarez, internal medicine business intern. Patient has shown improvement in her creatinine seems to be hovering around the low 2 range. She otherwise remains fairly stable. She did have some nausea last night, and states she is feeling better we will monitor her diet today and ensure she can take adequate oral intake. She did have a low-grade fever as well as a urinalysis is pending. Clinically she appears improved. We will monitor and rule out infection. All else as outlined above.
--- NOTE | 2017-09-23 10:21 | Nephrology Progress Note ---
Date of Encounter: 09/23/17 Time of Encounter: 10:20 - Assessment and Plan (1) MERNA (acute kidney injury) Current Visit: Yes Status: Acute Slight increase in creatinine. Will follow for trend. No change in management at this time. (2) HTN (hypertension) Current Visit: Yes Status: Chronic Titrate antihypertensive medications at this time. Qualifiers: Hypertension type: essential hypertension Qualified Code(s): I10 - Essential (primary) hypertension (3) Anemia Current Visit: No Status: Acute Monitor hemoglobin. Transfuse as needed. Qualifiers: Anemia type: unspecified type Qualified Code(s): D64.9 - Anemia, unspecified Subjective Principal diagnosis: MERNA, CKD stage 4 Interval history: Patient seen. She is asleep. Objective - Vital Signs Vital signs: Vital Signs Temp Pulse Resp BP Pulse Ox 09/23/17 08:08 96 09/23/17 07:00 99.7 F H 89 14 110/55 96 09/23/17 03:56 100.6 F H 94 16 112/55 95 09/22/17 23:58 99.0 F 95 16 125/57 96 09/22/17 18:43 98.3 F 89 16 151/61 97 09/22/17 16:21 98.6 F 85 16 146/77 100 09/22/17 12:48 98 09/22/17 12:39 98.5 F 94 16 115/76 98 09/22/17 11:08 98.0 F 74 14 123/59 97 09/22/17 11:05 76 Intake and Output 09/22/17 09/23/17 09/23/17 23:59 07:59 15:59 Intake Total 0 / 0 Balance 0 / 0 Intake: Oral 0 / 0 Other: Meal refused tray Percent of Meal Consumed 0% Stool Size Small Smear Stool Consistency loose soft Stool Color Brown Brown # Urine Diapers 1 1 # Bowel Movement Diapers 1 Weight 60.498 kg Blood Glucose* 250 214 Patient Weight 09/23/17 23:59 Weight 60.498 kg - General Appearance General appearance: Present: well-developed, well-nourished Cardiology: Present: regular rate - Lab 09/23/17 07:18 09/23/17 07:18 Most recent lab results Calcium 7.9 mg/dL (8.6-10.3) L 09/23/17 07:18 Urine Creatinine 32 mg/dL 09/18/17 23:56 Urine Sodium 58.5 mEq/L 09/18/17 23:56 Consult Discharge Plan - Plan Referrals: Macario Diallo MD [Primary Care Provider] - (PATIENT IS GOING TO [facility] NO PCP APPOINTMENT NEEDED)
[2017-09-23] MEDS: Ondansetron 4 MG/2 ML VIAL IVP PRN (17:57)
[2017-09-23 18:54] LABS: Bilirubin,Urine Negative (Negative); Blood,Urine Moderate (Negative); Clarity,Urine Turbid (Clear); Color,Urine Yellow (Yellow); Glucose,Urine (UA) Normal (Normal); Ketones,Urine Negative (Negative); Leukocyte Esterase,Urine Large (Negative); Nitrite,Urine Negative (Negative); PH,Urine 6.5 pH Units (5.0-8.0); Protein,Urine 100 mg/dL (Neg-Trace); Specific Gravity,Urine 1.012 (1.010-1.025); Urobilinogen,Urine Normal (Normal)
[2017-09-23 18:58] LABS: Bacteria,Urine None Seen per hpf (None-Few); Squamous Epithelial Cell,Urine Moderate per lpf (None-Few); WBC,Urine TNTC per hpf (0-3)
[2017-09-23 20:43] LABS: Hyaline Casts,Urine None Seen per lpf (None-Few)
[2017-09-23] MEDS: Gabapentin 100 MG CAPSULE PO SCH (20:56)
[2017-09-24] MEDS: *HR* Heparin 5,000 UNIT/ML VIAL SQ SCH ×3 (06:20→20:26)
--- NOTE | 2017-09-24 07:25 | Internal Med Progress Note ---
<Alonzo Alvarez - Last Filed: 09/24/17 15:48> Date of Encounter: 09/24/17 Time of Encounter: 09:00 - Assessment and plan (1) Acute worsening of stage 4 chronic kidney disease Current Visit: No Status: Acute Assessment and plan: Cr 2.81 this morning Per the recommendation of nephrology: -Encourage p.o fluids -Avoid nephrotoxins if possible -Recommend placement in a rehab facility (2) Difficulty swallowing Current Visit: Yes Status: Acute Assessment and plan: Patient expresses that she has some difficulty swallowing today. -She stated that he had a vague sensation of something being stuck in her throat when she was eating breakfast. -Denies any previous episodes. -Will order swallow evaluation. Qualifiers: Qualified Code(s): R13.10 - Dysphagia, unspecified (3) Nausea Current Visit: No Status: Resolved Assessment and plan: Patient admitted to having some nausea this morning. Will order zofran. (4) UTI (urinary tract infection) Current Visit: Yes Status: Acute Assessment and plan: Patient's UA showed WBCs TNTC. Will start on Ciprofloxacin for 3 days. Qualifiers: Qualified Code(s): N39.0 - Urinary tract infection, site not specified; R31.9 - Hematuria, unspecified; R31.9 - Hematuria, unspecified (5) Hyperkalemia Current Visit: No Status: Resolved Assessment and plan: -Resolved; continue to monitor (6) Diabetes mellitus Current Visit: No Status: Chronic Assessment and plan: -Sliding scale insulin -Last glucose was 250 -ADA diet Qualifiers: Diabetes mellitus type: type 2 Diabetes mellitus complication status: with skin complications Diabetes mellitus complication detail: with foot ulcer Diabetes mellitus [facility] insulin use: with [facility] use Qualified Code(s) : E11.621 - Type 2 diabetes mellitus with foot ulcer; L97.509 - Non-pressure chronic ulcer of other part of unspecified foot with unspecified severity; L97.509 - Non-pressure chronic ulcer of other part of unspecified foot with unspecified severity; L97.509 - Non-pressure chronic ulcer of other part of unspecified foot with unspecified severity; L97.509 - Non-pressure chronic ulcer of other part of unspecified foot with unspecified severity; Z79.4 - technician terminal and repeater (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; Z79.4 - technician terminal and repeater (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; Z79.4 - technician terminal and repeater (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; Z79.4 - correction (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 (7) Hyponatremia Current Visit: No Status: Resolved Assessment and plan: -Sodium correcting slowly -Sodium was 119 on admission 09/17/17 and today is 132 -Continue to monitor (8) HLD (hyperlipidemia) Current Visit: Yes Status: Chronic Assessment and plan: -Zocor 10 mg PO HS Qualifiers: Hyperlipidemia type: unspecified Qualified Code(s): E78.5 - Hyperlipidemia , unspecified (9) HTN (hypertension) Current Visit: Yes Status: Chronic Assessment and plan: -Metoprolol tartrate 12.5 mg PO BID Qualifiers: Hypertension type: essential hypertension Qualified Code(s): I10 - Essential (primary) hypertension (10) Anemia in chronic renal disease Current Visit: No Status: Chronic Assessment and plan: -Continue iron sulfate -Last hemoglobin was 7.2 Qualifiers: Chronic kidney disease stage: stage 4 (severe) Qualified Code(s): N18.4 - Chronic kidney disease, stage 4 (severe); D63.1 - Anemia in chronic kidney disease; D63.1 - Anemia in chronic kidney disease (11) Diabetic foot ulcers Current Visit: No Status: Chronic Assessment and plan: -Continue to monitor Qualifiers: Diabetic foot ulcer location: midfoot Diabetes mellitus type: type 2 Laterality: unspecified laterality Non-pressure ulcer stage: limited to breakdown of skin Qualified Code(s): E11.621 - Type 2 diabetes mellitus with foot ulcer; L97.401 - Non-pressure chronic ulcer of unspecified heel and midfoot limited to breakdown of skin; L97.401 - Non-pressure chronic ulcer of unspecified heel and midfoot limited to breakdown of skin; L97.401 - Non- pressure chronic ulcer of unspecified heel and midfoot limited to breakdown of skin; L97.401 - Non-pressure chronic ulcer of unspecified heel and midfoot limited to breakdown of skin (12) DVT prophylaxis Current Visit: No Status: Acute Assessment and plan: -Heparin 5000 SQ 12 - Subjective Interval history: Patient was seen and examined at bedside this morning. States that she is feeling well today. Did complain of some minor trouble swallowing this morning. She has a hard time describing it. Denies any prior history of reflux. Denies choking on her food. Denies having vomiting or abdominal pain. Admits to occassional nausea. No additional complaints at this time. - Constitutional Vitals: Temp Pulse Resp BP Pulse Ox 98.1 F 63 16 104/63 98 09/24/17 03:22 09/24/17 03:22 09/24/17 03:22 09/24/17 03:22 09/24/17 03:22 General appearance: Present: A&O X 3, pleasant, no acute distress, answers questions appropriately - Head Head exam: Present: atraumatic, normocephalic - Eye Eye exam: Present: PERRL, conjuntiva pink, sclera anicteric Pupils: Present: PERRL - Neck Neck exam general surgery: Present: supple, trachea midline. Absent: lymphadenopathy - Respiratory Respiratory exam: Present: CTAB. Absent: accessory muscle use, rales, rhonchi, wheezes - Cardiovascular Cardiovascular exam: Present: RRR, +S1, +S2. Absent: diastolic murmur, gallop, rubs, systolic murmur - GI/Abdominal GI/Abdominal exam: Present: normal bowel sounds, soft, no peritoneal signs. Absent: distended, tenderness - Extremities Exam Extremities exam: Present: warm, radial pulses palpable and symmetrical. Absent : calf tenderness, cyanotic, pedal edema - Neurological Exam Neurological exam: Present: CN II-XII intact, oriented X3, no focal deficits. Absent: pronater drift, facial droop, speech deficit - Skin Skin exam: Present: dry, intact Internal Medicine: Result - Labs CBC & Chem 7: 09/23/17 07:18 09/24/17 09:20 Labs: Short CBC 09/23/17 Range/Units 07:18 WBC 12.0 H (4.3-11.1) K/mcL Hgb 7.2 L (11.5-15.4) g/dL Hct 22.6 L (35.3-44.9) % Plt Count 284 (140-400) K/mcL BMP 09/23/17 07:18 Sodium 132 L Potassium 4.6 Chloride 109 H Carbon Dioxide 16 L BUN 52 H Creatinine 2.32 H Glucose 210 H Calcium 7.9 L Urine 09/23/17 Range/Units 09:50 Urine Color Yellow (Yellow) Urine Clarity Turbid A (Clear) Urine pH 6.5 (5.0-8.0) pH Units Ur Specific [place] 1.012 (1.010-1.025) Urine Protein 100 H (Neg-Trace) mg/dL Urine Glucose (UA) Normal (Normal) mg/dL - ABG Interpretation ABG results: PT/INR, D-dimer PT 12.8 Seconds (9.4-12.1) H 09/17/17 16:20 Consult Discharge Plan - Plan Referrals: Macario Diallo MD [Primary Care Provider] - (PATIENT IS GOING TO [facility] NO PCP APPOINTMENT NEEDED) <Anthony Barajas - Last Filed: 09/24/17 15:53> Date of Encounter: 09/24/17 - Subjective Interval history: Other than HPI 1 10 pt ROS is negative. - Constitutional Vitals: Temp Pulse Resp BP Pulse Ox 98.5 F 72 15 132/74 99 09/24/17 11:24 09/24/17 11:24 09/24/17 11:24 09/24/17 11:24 09/24/17 11:24 Internal Medicine: Result - Labs CBC & Chem 7: 09/23/17 07:18 09/24/17 09:20 Labs: BMP 09/24/17 09:20 Sodium 133 L Potassium 5.1 Chloride 107 Carbon Dioxide 18 L BUN 56 H Creatinine 2.81 H Glucose 202 H Calcium 8.5 L Liver Function 09/24/17 Range/Units 09:20 Total Bilirubin 0.3 (0.3-1.0) mg/dL Direct Bilirubin 0.1 (0.0-0.2) mg/dL AST 9 L (13-39) Units/L ALT 8 (7-52) Units/L Alkaline Phosphatase 94 (34-104) Units/L Albumin 2.6 L (3.5-5.7) g/dL Urine 09/23/17 Range/Units 09:50 Urine Color Yellow (Yellow) Urine Clarity Turbid A (Clear) Urine pH 6.5 (5.0-8.0) pH Units Ur Specific [place] 1.012 (1.010-1.025) Urine Protein 100 H (Neg-Trace) mg/dL Urine Glucose (UA) Normal (Normal) mg/dL - ABG Interpretation ABG results: PT/INR, D-dimer PT 12.8 Seconds (9.4-12.1) H 09/17/17 16:20 - Attending Attestation I personally interviewed and examined this patient. I agree with the findings, assessment, and plan of Dr. Alvarez, internal medicine news department intern. His creatinine has improved. Nephrology input is appreciated. I am not convinced patient has urinary tract infection as this may be asymptomatic bacteriuria, but she did have a fever yesterday, and the urine shows too numerous to count white blood cells, therefore we did elect to treat with 3 days of Cipro renally dosed. He should otherwise has been complaining of some dysphagia for which we will perform a swallow evaluation.? If this is related to why she came in, it is possible she has been having decreased oral intake as a result of this.
[2017-09-24] MEDS: Insulin LISPRO 300 UNITS/3 ML VIAL SQ SCH ×4 (08:34→20:26)
[2017-09-24] MEDS: Aspirin Enteric Coated 81 MG Tablet PO SCH (08:35)
[2017-09-24 09:58] LABS: Albumin 2.6 g/dL (3.5-5.7); Albumin/Globulin Ratio 0.5 (1.1-2.2); Bilirubin,Direct 0.1 mg/dL (0.0-0.2); Bilirubin,Indirect 0.2 mg/dL (0.0-1.2); Bilirubin,Total 0.3 mg/dL (0.3-1.0); Calcium 8.5 mg/dL (8.6-10.3); Globulin 5.3 g/dL (2.4-3.5); Potassium 5.1 mEq/L (3.5-5.1); Total Protein 7.9 g/dL (6.4-8.9)
--- NOTE | 2017-09-24 10:26 | Nephrology Progress Note ---
Date of Encounter: 09/24/17 Time of Encounter: 10:24 - Assessment and Plan (1) MERNA (acute kidney injury) Current Visit: Yes Status: Acute Kidney function worsening Scr 2.81 GFR 16 Baseline GFR 19 Do not see the results of the bladder scan ordered?? Patient states she wears depends and is voiding; "when I go I really go" patient states Encourage p.o fluids Avoid nephrotoxins if possible Recommend placement in a rehab facility (2) Chronic kidney disease, stage IV (severe) Current Visit: No Status: Chronic see above Baseline GFR around 19 (3) Anemia Current Visit: No Status: Acute No CBC today Goal hgb 10-11 Transfuse per parameters per primary team Last hgb 7.2 on 09/23 Qualifiers: Anemia type: unspecified type Qualified Code(s): D64.9 - Anemia, unspecified Subjective Principal diagnosis: MERNA, CKD stage 4 Interval history: Patient seen and examined. States she doesn't feel well today Objective - Vital Signs Vital signs: Vital Signs Temp Pulse Resp BP Pulse Ox 09/24/17 07:27 98.4 F 60 16 117/65 99 09/24/17 03:22 98.1 F 63 16 104/63 98 09/24/17 00:00 98.1 F 70 15 110/59 100 09/23/17 19:37 98.1 F 80 15 122/51 99 09/23/17 16:02 98.9 F 67 16 120/55 100 09/23/17 10:28 98.7 F 106 14 104/57 95 Intake and Output 09/23/17 09/24/17 09/24/17 23:59 07:59 15:59 Intake Total 500 / 500 Output Total 220 / 220 Balance -220 / -220 500 / 500 Intake: Oral 500 / 500 Output: Straight Cath 220 / 220 Other: Stool Size Smear Stool Consistency loose liquid Stool Color Brown # Urine Diapers 1 1 # Bowel Movements 1 Weight 60.328 kg Blood Glucose* 243 167 Patient Weight 09/24/17 23:59 Weight 60.328 kg - General Appearance General appearance: Present: well-developed, well-nourished EENT: Present: ATNC, mucous membranes moist, hearing intact, vision intact Neck: Present: supple Respiratory: Present: clear Cardiology: Present: no edema, normal S1, normal S2 Gastrointestinal: Present: no tenderness, no guarding Integumentary: Present: warm and dry Neurologic: Present: alert and oriented x3 Psychiatric: Present: mood/affect appropriate, cooperative - Lab 09/23/17 07:18 09/24/17 09:20 Most recent lab results Calcium 8.5 mg/dL (8.6-10.3) L 09/24/17 09:20 Urine Creatinine 32 mg/dL 09/18/17 23:56 Urine Sodium 58.5 mEq/L 09/18/17 23:56 Consult Discharge Plan - Plan Referrals: Macario Diallo MD [Primary Care Provider] - (PATIENT IS GOING TO [facility] NO PCP APPOINTMENT NEEDED)
[2017-09-24] MEDS: Ondansetron 4 MG/2 ML VIAL IVP PRN (18:49)
[2017-09-24] MEDS: Gabapentin 100 MG CAPSULE PO SCH (20:26)
[2017-09-25] MEDS: *HR* Heparin 5,000 UNIT/ML VIAL SQ SCH ×3 (05:23→21:26)
[2017-09-25 07:48] LABS: Basophils % 0.3 %; Eosinophils # 0.2 K/mcL (0.0-0.6); Eosinophils % 3.1 %; Hemoglobin 7.6 g/dL (11.5-15.4); Immature Granulocytes % 0.8 % (0-4); Lymphocytes # 1.7 K/mcL (0.6-4.6); Lymphocytes % 23.2 %; Mean Corpuscular HGB Conc 31.7 g/dL (31.6-35.5); Mean Corpuscular Hemoglobin 26.3 pg (28.0-33.3); Mean Platelet Volume 9.3 fL (9.4-12.4); Monocytes # 0.8 K/mcL (0.0-1.3); Monocytes % 10.9 %; Neutrophils # 4.4 K/mcL (1.6-8.9); Platelet Count 315 K/mcL (140-400); Red Blood Count 2.89 M/mcL (3.82-4.97); Red Cell Distribution Width 15.2 % (11.5-14.5); Segmented Neutrophils % 61.7 %
[2017-09-25 08:24] LABS: Calcium 8.7 mg/dL (8.6-10.3); Potassium 5.8 mEq/L (3.5-5.1)
[2017-09-25] MEDS: Aspirin Enteric Coated 81 MG Tablet PO SCH (08:52)
[2017-09-25] MEDS: Insulin LISPRO 300 UNITS/3 ML VIAL SQ SCH ×4 (08:57→21:27)
--- NOTE | 2017-09-25 09:04 | Internal Med Progress Note ---
<Alonzo Alvarez - Last Filed: 09/25/17 15:19> Date of Encounter: 09/25/17 Time of Encounter: 09:50 - Assessment and plan (1) Acute worsening of stage 4 chronic kidney disease Current Visit: No Status: Acute Assessment and plan: Cr 2.91 this morning Per the recommendation of nephrology: -Encourage p.o fluids -Avoid nephrotoxins if possible -Recommend placement in a rehab facility (2) Difficulty swallowing Current Visit: Yes Status: Acute Assessment and plan: Patient expresses that she has some difficulty swallowing. -She stated that he had a vague sensation of something being stuck in her throat. -Denies any previous episodes. Patient was seen and evaluated by speech therapy: -Patient has sensation regardless of whether she is eating or not. -Patient does not appear to be an aspiration risk. -Possible GI/ENT consult if symptoms persist. Qualifiers: Qualified Code(s): R13.10 - Dysphagia, unspecified (3) Nausea Current Visit: No Status: Resolved Assessment and plan: Patient admitted to having some nausea this morning. Will order zofran. (4) UTI (urinary tract infection) Current Visit: Yes Status: Acute Assessment and plan: Patient's UA showed WBCs TNTC. Ciprofloxacin 250 mg PO (Day 2) Qualifiers: Qualified Code(s): N39.0 - Urinary tract infection, site not specified; R31.9 - Hematuria, unspecified; R31.9 - Hematuria, unspecified (5) Hyperkalemia Current Visit: No Status: Resolved Assessment and plan: -Patient's potassiu this morning was 5.8. -20 mg kayexalate ordered -Recheck BMP; if still elevated, will give another 30 mg of kayexalate (6) Diabetes mellitus Current Visit: No Status: Chronic Assessment and plan: -Sliding scale insulin -Last glucose was 211 -ADA diet Qualifiers: Diabetes mellitus type: type 2 Diabetes mellitus complication status: with skin complications Diabetes mellitus complication detail: with foot ulcer Diabetes mellitus watermelon inspector insulin use: with watermelon inspector use Qualified Code(s) : E11.621 - Type 2 diabetes mellitus with foot ulcer; L97.509 - Non-pressure chronic ulcer of other part of unspecified foot with unspecified severity; L97.509 - Non-pressure chronic ulcer of other part of unspecified foot with unspecified severity; L97.509 - Non-pressure chronic ulcer of other part of unspecified foot with unspecified severity; L97.509 - Non-pressure chronic ulcer of other part of unspecified foot with unspecified severity; Z79.4 - assisted (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; Z79.4 - dedicated intermodal truck driver (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; Z79.4 - assisted (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; Z79.4 - dedicated intermodal truck driver (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 (7) Hyponatremia Current Visit: No Status: Resolved Assessment and plan: -Sodium correcting slowly -Sodium was 119 on admission -Continue to monitor (8) HLD (hyperlipidemia) Current Visit: Yes Status: Chronic Assessment and plan: -Zocor 10 mg PO HS Qualifiers: Hyperlipidemia type: unspecified Qualified Code(s): E78.5 - Hyperlipidemia , unspecified (9) HTN (hypertension) Current Visit: Yes Status: Chronic Assessment and plan: -Metoprolol tartrate 12.5 mg PO BID Qualifiers: Hypertension type: essential hypertension Qualified Code(s): I10 - Essential (primary) hypertension (10) Anemia in chronic renal disease Current Visit: No Status: Chronic Assessment and plan: -Continue iron sulfate -Last hemoglobin was 7.1 Qualifiers: Chronic kidney disease stage: stage 4 (severe) Qualified Code(s): N18.4 - Chronic kidney disease, stage 4 (severe); D63.1 - Anemia in chronic kidney disease; D63.1 - Anemia in chronic kidney disease (11) Diabetic foot ulcers Current Visit: No Status: Chronic Assessment and plan: -Continue to monitor Qualifiers: Diabetic foot ulcer location: midfoot Diabetes mellitus type: type 2 Laterality: unspecified laterality Non-pressure ulcer stage: limited to breakdown of skin Qualified Code(s): E11.621 - Type 2 diabetes mellitus with foot ulcer; L97.401 - Non-pressure chronic ulcer of unspecified heel and midfoot limited to breakdown of skin; L97.401 - Non-pressure chronic ulcer of unspecified heel and midfoot limited to breakdown of skin; L97.401 - Non- pressure chronic ulcer of unspecified heel and midfoot limited to breakdown of skin; L97.401 - Non-pressure chronic ulcer of unspecified heel and midfoot limited to breakdown of skin (12) DVT prophylaxis Current Visit: No Status: Acute Assessment and plan: -Heparin 5000 SQ 12 - Subjective Interval history: Patient was seen and examined at bedside this morning. States that she is feeling well today. Admits to intermittent nausea. No abdominal pain, dysuria , vomiting, dizziness, chest pain, or shortness of breath. No further complaints at this time. - Constitutional Vitals: Temp Pulse Resp BP Pulse Ox 99.6 F 77 15 115/68 98 09/25/17 07:37 09/25/17 08:45 09/25/17 08:45 09/25/17 08:45 09/25/17 08:45 General appearance: Present: A&O X 3, pleasant, no acute distress, answers questions appropriately - Head Head exam: Present: atraumatic, normocephalic - Eye Eye exam: Present: PERRL, conjuntiva pink, sclera anicteric Pupils: Present: PERRL - Neck Neck exam general surgery: Present: supple, trachea midline. Absent: lymphadenopathy - Respiratory Respiratory exam: Present: CTAB. Absent: accessory muscle use, rales, rhonchi, wheezes - Cardiovascular Cardiovascular exam: Present: RRR, +S1, +S2. Absent: diastolic murmur, gallop, rubs, systolic murmur - GI/Abdominal GI/Abdominal exam: Present: normal bowel sounds, soft, no peritoneal signs. Absent: distended, tenderness - Extremities Exam Extremities exam: Present: warm, radial pulses palpable and symmetrical. Absent : calf tenderness, cyanotic, pedal edema - Neurological Exam Neurological exam: Present: CN II-XII intact, oriented X3, no focal deficits. Absent: pronater drift, facial droop, speech deficit - Skin Skin exam: Present: dry, intact Internal Medicine: Result - Labs CBC & Chem 7: 09/25/17 07:05 09/25/17 10:21 Labs: Short CBC 09/25/17 Range/Units 07:05 WBC 7.1 (4.3-11.1) K/mcL Hgb 7.6 L (11.5-15.4) g/dL Hct 24.0 L (35.3-44.9) % Plt Count 315 (140-400) K/mcL Neutrophils # 4.4 (1.6-8.9) K/mcL BMP 09/24/17 09/25/17 09:20 07:05 Sodium 133 L 133 L Potassium 5.1 5.8 H Chloride 107 106 Carbon Dioxide 18 L 20 L BUN 56 H 59 H Creatinine 2.81 H 2.91 H Glucose 202 H 211 H Calcium 8.5 L 8.7 Liver Function 09/24/17 Range/Units 09:20 Total Bilirubin 0.3 (0.3-1.0) mg/dL Direct Bilirubin 0.1 (0.0-0.2) mg/dL AST 9 L (13-39) Units/L ALT 8 (7-52) Units/L Alkaline Phosphatase 94 (34-104) Units/L Albumin 2.6 L (3.5-5.7) g/dL - ABG Interpretation ABG results: PT/INR, D-dimer PT 12.8 Seconds (9.4-12.1) H 09/17/17 16:20 Consult Discharge Plan - Plan Referrals: Macario Diallo MD [Primary Care Provider] - (PATIENT IS GOING TO [facility] NO PCP APPOINTMENT NEEDED) <Anthony Barajas - Last Filed: 09/25/17 15:26> Date of Encounter: 09/25/17 - Subjective Interval history: Other than HPI a 10 pt ROS is negative - Constitutional Vitals: Temp Pulse Resp BP Pulse Ox 98.0 F 65 16 130/73 97 09/25/17 11:34 09/25/17 11:34 09/25/17 11:34 09/25/17 11:34 09/25/17 11:34 Internal Medicine: Result - Labs CBC & Chem 7: 09/25/17 07:05 09/25/17 10:21 Labs: Short CBC 09/25/17 Range/Units 07:05 WBC 7.1 (4.3-11.1) K/mcL Hgb 7.6 L (11.5-15.4) g/dL Hct 24.0 L (35.3-44.9) % Plt Count 315 (140-400) K/mcL Neutrophils # 4.4 (1.6-8.9) K/mcL BMP 09/25/17 09/25/17 07:05 10:21 Sodium 133 L 131 L Potassium 5.8 H 5.8 H Chloride 106 106 Carbon Dioxide 20 L 18 L BUN 59 H 61 H Creatinine 2.91 H 3.01 H Glucose 211 H 279 H Calcium 8.7 8.7 - ABG Interpretation ABG results: PT/INR, D-dimer PT 12.8 Seconds (9.4-12.1) H 09/17/17 16:20 - Attending Attestation I personally interviewed and examined this patient. I agree with the findings, assessment, and plan of Dr. Alvarez, internal medicine chief internal auditor. Unfortunately her creatinine is worse today. Nephrology note is appreciated. We continue to encourage fluids and avoid nephrotoxins. Also concern for possible obstructive uropathy. The need to replace Madden catheter and consult urology. Potassium is elevated but she has no acute indication for hemodialysis. She was given a dose of Kayexalate. Will monitor. She is day 2 of a 3 day course of Cipro for suspected urinary tract infection. Continue to monitor. All else as outlined above.
[2017-09-25 10:58] LABS: Calcium 8.7 mg/dL (8.6-10.3); Potassium 5.8 mEq/L (3.5-5.1)
--- NOTE | 2017-09-25 12:29 | Nephrology Progress Note ---
Date of Encounter: 09/25/17 Time of Encounter: 12:25 - Assessment and Plan (1) MERNA (acute kidney injury) Current Visit: Yes Status: Acute MERNA on CKD. Continued worsening of her renal function after naylor has been removed. Will recheck for urinary retention and if present will replace naylor and consult urology to reevaluate. Will recheck UA and culture. No need for dialysis at this time. Baseline renal function seems to be Stage 3b, but she has frequent episodes of MERNA. Review of her records reveals suspected bladder outlet obstruction that might have recurred. (2) HTN (hypertension) Current Visit: Yes Status: Chronic Titrate antihypertensive medications at this time. Qualifiers: Hypertension type: essential hypertension Qualified Code(s): I10 - Essential (primary) hypertension (3) Anemia Current Visit: No Status: Acute Monitor hemoglobin. Transfuse as needed. check iron stores, vitamin b12 and folate. Qualifiers: Anemia type: unspecified type Qualified Code(s): D64.9 - Anemia, unspecified Subjective Principal diagnosis: MERNA, CKD stage 4 Interval history: Patient seen. She is working with PT. She has no new complaint other than mild dysphagia. She states she can't eat despite pointing out she has eaten 2/ 3 of her breakfast. Otherwise she states she feels ok. Objective - Vital Signs Vital signs: Vital Signs Temp Pulse Resp BP Pulse Ox 09/25/17 11:34 98.0 F 65 16 130/73 97 09/25/17 08:45 77 15 115/68 98 09/25/17 07:37 99.6 F 75 17 99/48 97 09/25/17 03:21 97.9 F 77 14 138/65 98 09/24/17 23:46 98.1 F 72 12 128/71 99 09/24/17 18:59 97.7 F 72 16 135/74 100 09/24/17 15:45 97.9 F 71 15 131/64 98 Intake and Output 09/24/17 09/25/17 09/25/17 23:59 07:59 15:59 Other: # Urine Diapers 1 1 1 Weight 58.06 kg Blood Glucose* 333 287 Patient Weight 09/25/17 23:59 Weight 58.06 kg - General Appearance General appearance: Present: well-developed, chronically ill, frail EENT: Present: ATNC Neck: Present: supple Cardiology: Present: regular rate Integumentary: Present: warm and dry Neurologic: Present: alert and oriented x3 Psychiatric: Present: mood/affect appropriate - Lab 09/25/17 07:05 09/25/17 10:21 Most recent lab results Calcium 8.7 mg/dL (8.6-10.3) 09/25/17 10:21 Urine Creatinine 32 mg/dL 09/18/17 23:56 Urine Sodium 58.5 mEq/L 09/18/17 23:56 Consult Discharge Plan - Plan Referrals: Macario Diallo MD [Primary Care Provider] - (PATIENT IS GOING TO [facility] NO PCP APPOINTMENT NEEDED)
[2017-09-25] MEDS: Gabapentin 100 MG CAPSULE PO SCH (21:23)
[2017-09-25 23:42] LABS: Bilirubin,Urine Negative (Negative); Blood,Urine Moderate (Negative); Clarity,Urine Turbid (Clear); Color,Urine Yellow (Yellow); Glucose,Urine (UA) 250 mg/dL (Normal); Ketones,Urine Negative (Negative); Leukocyte Esterase,Urine Large (Negative); Nitrite,Urine Negative (Negative); PH,Urine 6.5 pH Units (5.0-8.0); Protein,Urine 100 mg/dL (Neg-Trace); Urobilinogen,Urine Normal (Normal)
[2017-09-25 23:43] LABS: Squamous Epithelial Cell,Urine Many per lpf (None-Few); WBC,Urine TNTC per hpf (0-3)
[2017-09-26 00:43] LABS: Bacteria,Urine Few per hpf (None-Few); Hyaline Casts,Urine None Seen per lpf (None-Few); RBC,Urine 0-3 per hpf (0-3)
[2017-09-26 06:10] LABS: Folate 3.8 ng/mL (3.0-16.0)
[2017-09-26] MEDS: *HR* Heparin 5,000 UNIT/ML VIAL SQ SCH ×3 (06:20→21:09)
[2017-09-26 06:35] LABS: % Iron Saturation 15 % (15-50); Ferritin 526 ng/ml (10-120); Iron 38 mcg/dL (50-170); Transferrin 180 mg/dL (203-362)
[2017-09-26] MEDS: Aspirin Enteric Coated 81 MG Tablet PO SCH (08:06)
[2017-09-26] MEDS: Insulin LISPRO 300 UNITS/3 ML VIAL SQ SCH ×4 (08:17→21:10)
--- NOTE | 2017-09-26 10:18 | Nephrology Progress Note ---
Date of Encounter: 09/26/17 Time of Encounter: 09:15 - Assessment and Plan (1) MERNA (acute kidney injury) Current Visit: Yes Status: Acute Pending renal labs this AM, so I ordered them earlier today. She has been having an MERNA worsening on CKD stage IV with known hx of bilateral hydronephrosis as seen on retroperitoneal U/S in Aug and persistent hydro on CT 08/30/17; and the latter CT reported urothelial wall thickening (which suggests potential for malignancy). I spoke to the floor RN this AM to request an update on her bladder scan that Dr. Jacob and requested yesterday, but she said the pt only had a straight cath. Nevertheless, with the pt's known bilateral hydronephrosis and trend of worsening renal function over the preceding three days since the naylor was removed, the hydro most likely has returned. She will need a naylor catheter placed today. I recommend Urology consult at some point for the thickening of the urothelium and b/l hydronephrosis. Treating the post-renal issues could help stabilize her renal function going forward, but I will start with a naylor today. She had worsening hydronephrosis and hyperkalemia and eGFR yesterday: pending renal labs at this time. If she's hyperkalemic, then she may need Kayexalate vs potentially LOAN COUNSELOR. Continue to follow a renal protective strategy. Will closely follow with you. Thank you. (2) Hyperkalemia Current Visit: Yes Status: Acute See above (3) Bilateral hydronephrosis Current Visit: Yes Status: Acute See above (4) Bladder wall thickening Current Visit: Yes Status: Acute See above (5) Chronic kidney disease, stage IV (severe) Current Visit: No Status: Chronic See above (6) Obstructive uropathy Current Visit: No Status: Chronic See above (7) Hyponatremia Current Visit: No Status: Resolved See above Subjective Principal diagnosis: MERNA, CKD stage 4 Interval history: Pt was s/e earlier today. She voiced that she has a good appetite, and affirmed that she has not felt too somnolent/confused or N/V or any other uremic symptom. Objective - Vital Signs Vital signs: Vital Signs Temp Pulse Resp BP Pulse Ox 09/26/17 07:13 98.5 F 70 16 126/66 98 09/26/17 02:58 98.3 F 75 16 112/56 97 09/25/17 23:45 98.6 F 67 15 120/59 94 09/25/17 18:39 98.0 F 83 15 127/63 99 09/25/17 11:34 98.0 F 65 16 130/73 97 Intake and Output 09/25/17 09/26/17 09/26/17 23:59 07:59 15:59 Intake Total 250 / 250 Output Total 225 / 225 Balance 25 / 25 Intake: Oral 250 / 250 Output: Straight Cath 225 / 225 Other: # Urine Diapers 1 1 Weight 58.287 kg Blood Glucose* 267 183 Patient Weight 09/26/17 23:59 Weight 58.287 kg - General Appearance General appearance: Present: well-nourished, appears started age, frail EENT: Present: ATNC, PERRL, mucous membranes moist Neck: Present: supple Respiratory: Present: clear Cardiology: Present: no edema, normal S1, normal S2 Gastrointestinal: Present: normoactive bowel sounds, no tenderness, no guarding. Absent: costovertebral Integumentary: Present: no rash, warm and dry, ecchymotic Neurologic: Present: no focal deficit, no asterixis, alert and oriented x3 Musculoskeletal: Present: no erythema, no cyanosis Psychiatric: Present: mood/affect appropriate, cooperative - Lab 09/25/17 07:05 09/25/17 10:21 Most recent lab results Calcium 8.7 mg/dL (8.6-10.3) 09/25/17 10:21 Urine Creatinine 32 mg/dL 09/18/17 23:56 Urine Sodium 58.5 mEq/L 09/18/17 23:56 - Imaging Kidney/bladder ultrasound: report reviewed Consult Discharge Plan - Plan Referrals: Macario Diallo MD [Primary Care Provider] - (PATIENT IS GOING TO [facility] NO PCP APPOINTMENT NEEDED)
[2017-09-26 11:57] LABS: Calcium 9.2 mg/dL (8.6-10.3)
--- NOTE | 2017-09-26 12:19 | Internal Med Progress Note ---
<Anthony Barajas - Last Filed: 09/26/17 15:53> Date of Encounter: 09/26/17 - Constitutional Vitals: Temp Pulse Resp BP Pulse Ox 98.3 F 79 17 137/72 97 09/26/17 15:13 09/26/17 15:13 09/26/17 15:13 09/26/17 15:13 09/26/17 15:13 Internal Medicine: Result - Labs CBC & Chem 7: 09/25/17 07:05 09/26/17 04:24 Labs: BMP 09/26/17 09/26/17 04:24 04:24 Sodium Cancelled 133 L Potassium Cancelled 6.0 H Chloride Cancelled 105 Carbon Dioxide Cancelled 10 L* BUN Cancelled 67 H Creatinine Cancelled 3.13 H Glucose Cancelled 210 H Calcium Cancelled 9.2 Urine 09/25/17 Range/Units 23:20 Urine Color Yellow (Yellow) Urine Clarity Turbid A (Clear) Urine pH 6.5 (5.0-8.0) pH Units Ur Specific [place] 1.010 (1.010-1.025) Urine Protein 100 H (Neg-Trace) mg/dL Urine Glucose (UA) 250 H (Normal) mg/dL - ABG Interpretation ABG results: PT/INR, D-dimer PT 12.8 Seconds (9.4-12.1) H 09/17/17 16:20 Consult Discharge Plan - Plan Referrals: Macario Diallo MD [Primary Care Provider] - (PATIENT IS GOING TO [facility] NO PCP APPOINTMENT NEEDED) - Attending Attestation I performed an independent exam and history of this patient. I am in agreement with the findings, assessment, and plan of Dr. Anthony, internal medicine graduate internship. Nephrology input also appreciated. He should renal function has worsened since stopping her Naylor. This further races suspicion for obstructive uropathy , she has a history of this. Her Naylor catheter is replaced. We are encouraging oral intake. We will also restart low rate of IV fluids. She was noted to have a significant metabolic acidosis. May need to consider bicarbonate as well. Urology will be consulted to assist in management. Patient's potassium was elevated today, and we did add Kayexalate. An EKG showed no peaked T waves. We will repeat a BMP later this evening. If potassium goes any higher will likely need call nephrology for consideration of dialysis. Patient is day 3 of a 3 day course of of Cipro, low-dose for possible urinary tract infection. She has had no further fever. Patient also has a significant metabolic acidosis, and ankle. Blood sugars are only mildly elevated and I do not believe she is in DKA. She may need bicarbonate infusion of her acidosis persists or worsens. I will start some gentle IV fluids as well to see if this assists with her creatinine and potassium. All else as outlined above. <Anabelle Lorenzo - Last Filed: 09/26/17 17:44> Date of Encounter: 09/26/17 Time of Encounter: 13:00 - Assessment and plan (1) Acute worsening of stage 4 chronic kidney disease Current Visit: No Status: Acute Assessment and plan: MERNA worsening on CKD stage IV with known hx of bilateral hydronephrosis as seen on retroperitoneal U/S in Aug and persistent hydro on CT 08/30/17; and the latter CT reported urothelial wall thickening (which suggests potential for malignancy). Worsening of Creatinine from 2.91 to 3.13. Plan: - will restart fluids NS 100ml/hr Per the recommendation of nephrology: - replace naylor as patient has probably worsening hydronephrosis - consult to urology soon for thickening of orthelium and b/l hydronephrosis -Encourage p.o fluids -Avoid nephrotoxins if possible -Recommend placement in a rehab facility (2) Metabolic acidosis Current Visit: No Status: Acute Assessment and plan: Will start NS at 100ml/hr. Will consider adding bicarbonate. BMP tonight. (3) Hyperkalemia Current Visit: No Status: Acute Assessment and plan: -Patient's potassium this morning was 6.0. Patient asymptomatic - yesterday given total of 30mg kayexalate ordered - Kayexalate 30mg today, repeat BMP at 5pm - repeat EKG showed normal sinus rhythm, no prolong OTc , no diffuse peaked T waves (4) Hyponatremia Current Visit: No Status: Resolved Assessment and plan: - will start patine on NS 100ml/hr -Sodium correcting slowly -Sodium was 119 on admission -Continue to monitor (5) Nausea vomiting and diarrhea Current Visit: Yes Status: Acute Assessment and plan: symptomatic relieve with Zofran (6) Diabetes mellitus Current Visit: No Status: Chronic Assessment and plan: Last glucose 345 Plan: - may need to start Levemir tomorrow -Sliding scale insulin low -ADA diet Qualifiers: Diabetes mellitus type: type 2 Diabetes mellitus complication status: with skin complications Diabetes mellitus complication detail: with foot ulcer Diabetes mellitus coding director insulin use: with coding director use Qualified Code(s) : E11.621 - Type 2 diabetes mellitus with foot ulcer; L97.509 - Non-pressure chronic ulcer of other part of unspecified foot with unspecified severity; L97.509 - Non-pressure chronic ulcer of other part of unspecified foot with unspecified severity; L97.509 - Non-pressure chronic ulcer of other part of unspecified foot with unspecified severity; L97.509 - Non-pressure chronic ulcer of other part of unspecified foot with unspecified severity; Z79.4 - gate 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; Z79.4 - gate 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; Z79.4 - gate 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; Z79.4 - FPC (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 (7) HTN (hypertension) Current Visit: Yes Status: Chronic Assessment and plan: -Metoprolol tartrate 12.5 mg PO BID Qualifiers: Hypertension type: essential hypertension Qualified Code(s): I10 - Essential (primary) hypertension (8) Anemia in chronic renal disease Current Visit: No Status: Chronic Assessment and plan: -probably could stop the iron supplements as this is anemia 2/2 to chronic disease -Last hemoglobin was 7.6 - will recheck tomorrow Qualifiers: Chronic kidney disease stage: stage 4 (severe) Qualified Code(s): N18.4 - Chronic kidney disease, stage 4 (severe); D63.1 - Anemia in chronic kidney disease; D63.1 - Anemia in chronic kidney disease (9) Diabetic foot ulcers Current Visit: No Status: Chronic Assessment and plan: -Continue to monitor Qualifiers: Diabetic foot ulcer location: midfoot Diabetes mellitus type: type 2 Laterality: unspecified laterality Non-pressure ulcer stage: limited to breakdown of skin Qualified Code(s): E11.621 - Type 2 diabetes mellitus with foot ulcer; L97.401 - Non-pressure chronic ulcer of unspecified heel and midfoot limited to breakdown of skin; L97.401 - Non-pressure chronic ulcer of unspecified heel and midfoot limited to breakdown of skin; L97.401 - Non- pressure chronic ulcer of unspecified heel and midfoot limited to breakdown of skin; L97.401 - Non-pressure chronic ulcer of unspecified heel and midfoot limited to breakdown of skin (10) Difficulty swallowing Current Visit: Yes Status: Acute Assessment and plan: Patient expresses that she has some difficulty swallowing. -She stated that he had a vague sensation of something being stuck in her throat. -Denies any previous episodes. Patient was seen and evaluated by speech therapy: -Patient has sensation regardless of whether she is eating or not. -Patient does not appear to be an aspiration risk. -Possible GI/ENT consult if symptoms persist. Qualifiers: Dysphagia type: unspecified Qualified Code(s): R13.10 - Dysphagia, unspecified (11) UTI (urinary tract infection) Current Visit: Yes Status: Acute Assessment and plan: Patient's UA showed WBCs TNTC. Ciprofloxacin 250 mg PO (Day 3) Qualifiers: Hematuria presence: with hematuria Qualified Code(s): N39.0 - Urinary tract infection, site not specified; R31.9 - Hematuria, unspecified; R31.9 - Hematuria, unspecified (12) DVT prophylaxis Current Visit: No Status: Acute Assessment and plan: -Heparin 5000 SQ 12 - Subjective Interval history: 72 F with a PMH of CKD stage IV, DM, HTN, and HLD who presented to the ED on with the chief complaint of N, V, D x 1 day found to be in acute on chronic CKD stage 4. Today patient denies muscle weakness, palpitations, dizziness, chest pain, shortness of breath. Patient has had intermittent nausea but relieved by Zofran. Other than history of present illness 10 point review of systems is negative - Constitutional Vitals: Temp Pulse Resp BP Pulse Ox 97.9 F 77 14 144/56 99 09/26/17 11:54 09/26/17 11:54 09/26/17 11:54 09/26/17 11:54 09/26/17 11:54 General appearance: Present: A&O X 3, pleasant, no acute distress, answers questions appropriately Exam: Constitutional: Alert, in no acute distress, well nourished, well developed. Head: Normocephalic, atraumatic, normal contour and symmetric, no masses, lesions or scars Heart: Normal, regular rate and rhythm, no murmurs Lungs: Clear to auscultation, no wheezes, rales, or rhonchi Abdomen: Soft, nondistended, nontender, bowel sounds present and normal, no guarding or rigidity. Extremities: No clubbing, cyanosis, or edema, radial pulse +2/4, capillary refill <2sec. Skin: Skin warm and dry, no lesions, no rashes, no jaundice Neurologic: Cranial nerves II through XII grossly intact, no focal deficits, strength within normal limits in all extremities Psych: Cooperative with exam, good eye contact, cognitive function intact, judgment good insight good, speech clear, thought process logical, and goal directed Internal Medicine: Result - Labs CBC & Chem 7: 09/25/17 07:05 09/26/17 04:24 Labs: BMP 09/26/17 09/26/17 04:24 04:24 Sodium Cancelled 133 L Potassium Cancelled 6.0 H Chloride Cancelled 105 Carbon Dioxide Cancelled 10 L* BUN Cancelled 67 H Creatinine Cancelled 3.13 H Glucose Cancelled 210 H Calcium Cancelled 9.2 Urine 09/25/17 Range/Units 23:20 Urine Color Yellow (Yellow) Urine Clarity Turbid A (Clear) Urine pH 6.5 (5.0-8.0) pH Units Ur Specific [place] 1.010 (1.010-1.025) Urine Protein 100 H (Neg-Trace) mg/dL Urine Glucose (UA) 250 H (Normal) mg/dL - ABG Interpretation ABG results: PT/INR, D-dimer PT 12.8 Seconds (9.4-12.1) H 09/17/17 16:20
[2017-09-26 18:40] LABS: Calcium 8.4 mg/dL (8.6-10.3); Potassium 5.1 mEq/L (3.5-5.1)
[2017-09-26] MEDS: Gabapentin 100 MG CAPSULE PO SCH (21:10)
[2017-09-27] MEDS: *HR* Heparin 5,000 UNIT/ML VIAL SQ SCH ×3 (06:34→22:27)
[2017-09-27 07:33] LABS: Calcium 8.4 mg/dL (8.6-10.3); Magnesium 1.4 mg/dL (1.6-2.6)
--- NOTE | 2017-09-27 07:34 | Internal Med Progress Note ---
<KarlAnthony Chela - Last Filed: 09/27/17 12:00> Date of Encounter: 09/27/17 - Constitutional Vitals: Temp Pulse Resp BP Pulse Ox 97.6 F 67 14 139/62 94 09/27/17 11:51 09/27/17 11:31 09/27/17 11:31 09/27/17 11:31 09/27/17 11:31 Internal Medicine: Result - Labs CBC & Chem 7: 09/27/17 06:46 09/27/17 06:46 Labs: Short CBC 09/27/17 Range/Units 06:46 WBC 6.3 (4.3-11.1) K/mcL Hgb 7.9 L (11.5-15.4) g/dL Hct 25.2 L (35.3-44.9) % Plt Count 367 (140-400) K/mcL Neutrophils # 3.6 (1.6-8.9) K/mcL BMP 09/26/17 09/27/17 18:07 06:46 Sodium 134 L 132 L Potassium 5.1 4.0 Chloride 105 105 Carbon Dioxide 19 L 18 L BUN 69 H 63 H Creatinine 2.91 H 2.49 H Glucose 288 H 257 H Calcium 8.4 L 8.4 L - ABG Interpretation ABG results: PT/INR, D-dimer PT 12.8 Seconds (9.4-12.1) H 09/17/17 16:20 Consult Discharge Plan - Plan Referrals: Macario Diallo MD [Primary Care Provider] - (PATIENT IS GOING TO [facility] NO PCP APPOINTMENT NEEDED) - Attending Attestation I performed an independent interview and examination of this patient. I agree with the findings, assessment, and plan of Dr. Anthony, internal medicine international nurse. Nephrology input also appreciated. Her renal function has improved since placing a Naylor catheter, and we also did start her on normal saline at 100 mL' s per hour. Her potassium and creatinine have both improved, as well as her acidemia. Urology has been consulted to evaluate her obstructive uropathy, concern for malignancy. Patient otherwise states she is feeling well, eating well. We will continue with IV fluids for now and Naylor catheter. She has completed 3 days of Cipro for possible urinary tract infection although not entirely convinced. All else as above. <Anabelle Lorenzo - Last Filed: 09/27/17 13:00> Date of Encounter: 09/27/17 Time of Encounter: 10:00 - Assessment and plan (1) Acute worsening of stage 4 chronic kidney disease Current Visit: No Status: Acute Assessment and plan: MERNA worsening on CKD stage IV with known hx of bilateral hydronephrosis as seen on retroperitoneal U/S in Aug and persistent hydro on CT 08/30/17; and the latter CT reported urothelial wall thickening (which suggests potential for malignancy). Improvement of Creatinine from 2.91 to 2.49. Continue fluids. Electrolytes normalizing. Due to creatinine improving s/p naylor and urothelial wall thickening seen on CT scan will consulted urology as this seems to be a post- renal cause. Plan: - continue fluids NS 100ml/hr Per the recommendation of nephrology: - replace naylor as patient has probably worsening hydronephrosis - consult to urology today -Encourage p.o fluids -Avoid nephrotoxins if possible -Recommend placement in a rehab facility (2) Metabolic acidosis Current Visit: No Status: Acute Assessment and plan: Continue NS at 100ml/hr. Will consider adding bicarbonate. BMP tonight. (3) Hyperkalemia Current Visit: No Status: Acute Assessment and plan: Elevated K 2/2 to acute on chronic renal disease. EKG 09/26 showed normal sinus rhythm without peaked T-waves. Patient's potassium this morning was 4.0. Patient asymptomatic. No need for Kayexalate today. (4) Hyponatremia Current Visit: No Status: Resolved Assessment and plan: - continue NS 100ml/hr -Sodium correcting slowly -Sodium was 119 on admission -Continue to monitor (5) Nausea vomiting and diarrhea Current Visit: Yes Status: Acute Assessment and plan: symptomatic relieve with Zofran (6) Diabetes mellitus Current Visit: No Status: Chronic Assessment and plan: Last glucose 345 Plan: - started Levemir 10 units HS -Sliding scale insulin low -ADA diet Qualifiers: Diabetes mellitus type: type 2 Diabetes mellitus complication status: with skin complications Diabetes mellitus complication detail: with foot ulcer Diabetes mellitus project management professional insulin use: with usp use Qualified Code(s) : E11.621 - Type 2 diabetes mellitus with foot ulcer; L97.509 - Non-pressure chronic ulcer of other part of unspecified foot with unspecified severity; L97.509 - Non-pressure chronic ulcer of other part of unspecified foot with unspecified severity; L97.509 - Non-pressure chronic ulcer of other part of unspecified foot with unspecified severity; L97.509 - Non-pressure chronic ulcer of other part of unspecified foot with unspecified severity; Z79.4 - USP (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; 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 - jigsaw 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; Z79.4 - USP (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; Z79.4 - jigsaw 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 (7) HTN (hypertension) Current Visit: Yes Status: Chronic Assessment and plan: -Metoprolol tartrate 12.5 mg PO BID Qualifiers: Hypertension type: essential hypertension Qualified Code(s): I10 - Essential (primary) hypertension (8) Anemia in chronic renal disease Current Visit: No Status: Chronic Assessment and plan: -probably could stop the iron supplements as this is anemia 2/2 to chronic disease -Last hemoglobin was 7.6 - will recheck tomorrow Qualifiers: Chronic kidney disease stage: stage 4 (severe) Qualified Code(s): N18.4 - Chronic kidney disease, stage 4 (severe); D63.1 - Anemia in chronic kidney disease; D63.1 - Anemia in chronic kidney disease (9) Diabetic foot ulcers Current Visit: No Status: Chronic Assessment and plan: chronic for years. Wound care consulted and managing. Qualifiers: Diabetic foot ulcer location: midfoot Diabetes mellitus type: type 2 Laterality: unspecified laterality Non-pressure ulcer stage: limited to breakdown of skin Qualified Code(s): E11.621 - Type 2 diabetes mellitus with foot ulcer; L97.401 - Non-pressure chronic ulcer of unspecified heel and midfoot limited to breakdown of skin; L97.401 - Non-pressure chronic ulcer of unspecified heel and midfoot limited to breakdown of skin; L97.401 - Non- pressure chronic ulcer of unspecified heel and midfoot limited to breakdown of skin; L97.401 - Non-pressure chronic ulcer of unspecified heel and midfoot limited to breakdown of skin (10) Difficulty swallowing Current Visit: Yes Status: Acute Assessment and plan: Patient expresses that she has some difficulty swallowing. -She stated that he had a vague sensation of something being stuck in her throat. -Denies any previous episodes. Patient was seen and evaluated by speech therapy: -Patient has sensation regardless of whether she is eating or not. -Patient does not appear to be an aspiration risk. -Possible GI/ENT consult if symptoms persist. Qualifiers: Dysphagia type: unspecified Qualified Code(s): R13.10 - Dysphagia, unspecified (11) UTI (urinary tract infection) Current Visit: Yes Status: Resolved Assessment and plan: Patient's UA showed WBCs TNTC. Completed course of cipro. Patient currently has a naylor. Qualifiers: Urinary tract infection type: acute cystitis Hematuria presence: with hematuria Qualified Code(s): N30.01 - Acute cystitis with hematuria (12) DVT prophylaxis Current Visit: No Status: Acute Assessment and plan: -Heparin 5000 SQ 12 - Subjective Interval history: 72 F with a PMH of CKD stage IV, DM, HTN, and HLD who presented to the ED on with the chief complaint of N, V, D x 1 day found to be in acute on chronic CKD stage 4. Today patient denies muscle weakness, palpitations, dizziness, chest pain, shortness of breath. Patient is currently concerned about constipation. last BM was a couple of days ago. Other than history of present illness 10 point review of systems is negative - Constitutional Vitals: Temp Pulse Resp BP Pulse Ox 97.3 F L 82 16 137/87 97 09/27/17 04:17 09/27/17 04:17 09/27/17 04:17 09/27/17 04:17 09/27/17 04:17 General appearance: Present: A&O X 3, pleasant, no acute distress, answers questions appropriately Exam: Constitutional: Alert, in no acute distress, well nourished, well developed. Head: Normocephalic, atraumatic, normal contour and symmetric, no masses, lesions or scars Heart: Normal, regular rate and rhythm, no murmurs Lungs: Clear to auscultation, no wheezes, rales, or rhonchi Abdomen: Soft, nondistended, nontender, bowel sounds present and normal, no guarding or rigidity. : naylor present Extremities: left foot dressed without serosanguinous fluid No clubbing, cyanosis, or edema, radial pulse +2/4, capillary refill <2sec. Skin: Skin warm and dry, no jaundice Neurologic: Cranial nerves II through XII grossly intact, no focal deficits, strength within normal limits in all extremities Psych: Cooperative with exam, good eye contact, cognitive function intact, judgment good insight good, speech clear, thought process logical, and goal directed Internal Medicine: Result - Labs CBC & Chem 7: 09/27/17 06:46 09/27/17 06:46 Labs: BMP 09/26/17 09/26/17 09/26/17 04:24 04:24 18:07 Sodium Cancelled 133 L 134 L Potassium Cancelled 6.0 H 5.1 Chloride Cancelled 105 105 Carbon Dioxide Cancelled 10 L* 19 L BUN Cancelled 67 H 69 H Creatinine Cancelled 3.13 H 2.91 H Glucose Cancelled 210 H 288 H Calcium Cancelled 9.2 8.4 L - ABG Interpretation ABG results: PT/INR, D-dimer PT 12.8 Seconds (9.4-12.1) H 09/17/17 16:20
[2017-09-27 07:59] LABS: Basophils % 0.3 %; Eosinophils # 0.2 K/mcL (0.0-0.6); Eosinophils % 2.7 %; Hematocrit 25.2 % (35.3-44.9); Hemoglobin 7.9 g/dL (11.5-15.4); Immature Granulocytes % 0.6 % (0-4); Lymphocytes # 1.7 K/mcL (0.6-4.6); Lymphocytes % 26.7 %; Mean Corpuscular HGB Conc 31.3 g/dL (31.6-35.5); Mean Corpuscular Hemoglobin 26.2 pg (28.0-33.3); Mean Corpuscular Volume 83.7 fL (83.0-100.0); Mean Platelet Volume 9.1 fL (9.4-12.4); Monocytes # 0.7 K/mcL (0.0-1.3); Monocytes % 11.5 %; Neutrophils # 3.6 K/mcL (1.6-8.9); Platelet Count 367 K/mcL (140-400); Red Blood Count 3.01 M/mcL (3.82-4.97); Red Cell Distribution Width 14.9 % (11.5-14.5); Segmented Neutrophils % 58.2 %
[2017-09-27] MEDS: Insulin LISPRO 300 UNITS/3 ML VIAL SQ SCH ×4 (07:59→22:27)
[2017-09-27] MEDS: Aspirin Enteric Coated 81 MG Tablet PO SCH (08:00)
--- NOTE | 2017-09-27 10:04 | Nephrology Progress Note ---
Date of Encounter: 09/27/17 Time of Encounter: 08:30 - Assessment and Plan (1) MERNA (acute kidney injury) Current Visit: Yes Status: Acute Starting to trend better since placement of the naylor, confirming a post renal impact on her renal function. Prior imaging demonstrated bilateral hydronephrosis as seen on retroperitoneal U/S in Aug and persistent hydro on CT 08/30/17; and the latter CT reported urothelial wall thickening (which suggests potential for malignancy). Agree with consulting Urology. Hyperkalemia is s/p kayexalate, and she is responding with improved serum K+ Hyponatremia is also trending better. 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 I recommend Urology consult at some point for the thickening of the urothelium and b/l hydronephrosis. Treating the post-renal issues could help stabilize her renal function going forward, Continue to follow a renal protective strategy. Dr. Jacob will be back on-call on the inpt service tomorrow. Thank you. (2) Hyperkalemia Current Visit: Yes Status: Acute See above (3) Bilateral hydronephrosis Current Visit: Yes Status: Acute See above (4) Bladder wall thickening Current Visit: Yes Status: Acute See above (5) Chronic kidney disease, stage IV (severe) Current Visit: No Status: Chronic See above (6) Obstructive uropathy Current Visit: No Status: Chronic See above (7) Hyponatremia Current Visit: No Status: Resolved See above. Trending better. Subjective Principal diagnosis: MERNA, CKD stage 4 Interval history: Pt was s/e earlier today. She voiced that she has a good appetite, and has been eating well. She was transferred from 3B down to 2A since I saw her yesterday ( I agree with her being on 2A, which focuses on renal patients). She did not affirm N/V/D or uremic complaints while I was in the room. Though she occ has some rare nausea. Objective - Vital Signs Vital signs: Vital Signs Temp Pulse Resp BP Pulse Ox 09/27/17 07:37 97.5 F L 70 13 123/66 98 09/27/17 04:17 97.3 F L 82 16 137/87 97 09/26/17 23:47 97.8 F 74 16 131/69 98 09/26/17 20:35 97.9 F 85 16 124/70 98 09/26/17 15:13 98.3 F 79 17 137/72 97 09/26/17 11:54 97.9 F 77 14 144/56 99 Intake and Output 09/26/17 09/27/17 09/27/17 23:59 07:59 15:59 Intake Total 480 / 480 360 / 360 Output Total 900 / 900 400 / 400 Balance -420 / -420 -40 / -40 Intake: Oral 480 / 480 360 / 360 Output: Catheter 900 / 900 400 / 400 Other: Stool Size Smear Stool Consistency formed Stool Color Brown # Bowel Movements 1 Blood Glucose* 294 257 - General Appearance General appearance: Present: well-developed, well-nourished, appears started age EENT: Present: ATNC, PERRL, mucous membranes moist Neck: Present: supple Respiratory: Present: clear Cardiology: Present: no edema, regular rate, regular rhythm, normal S1, normal S2 Gastrointestinal: Present: normoactive bowel sounds, no tenderness Integumentary: Present: no rash, warm and dry Neurologic: Present: no focal deficit, no asterixis, alert and oriented x3 Musculoskeletal: Present: no deformities, no erythema, no cyanosis Psychiatric: Present: mood/affect appropriate, cooperative - Lab 09/27/17 06:46 09/27/17 06:46 Most recent lab results Calcium 8.4 mg/dL (8.6-10.3) L 09/27/17 06:46 Phosphorus 5.0 mg/dL (2.7-4.5) H 09/27/17 06:46 Magnesium 1.4 mg/dL (1.6-2.6) L 09/27/17 06:46 Urine Creatinine 32 mg/dL 09/18/17 23:56 Urine Sodium 58.5 mEq/L 09/18/17 23:56 - Imaging Kidney/bladder ultrasound: report reviewed Additional Comments: Naylor catheter in place with tea color urine output Consult Discharge Plan - Plan Referrals: Macario Diallo MD [Primary Care Provider] - (PATIENT IS GOING TO [facility], [facility] NO PCP APPOINTMENT NEEDED)
[2017-09-27] MEDS ORDERED: Insulin DETEMIR 100 UNIT/ML X5UNITS SQ SCH (21:00)
[2017-09-27] MEDS: Gabapentin 100 MG CAPSULE PO SCH (22:26)
[2017-09-28] MEDS: *HR* Heparin 5,000 UNIT/ML VIAL SQ SCH ×2 (06:04→17:02)
--- NOTE | 2017-09-28 06:35 | Urology - Consult Note ---
Date of Encounter: 09/28/17 Time of Encounter: 06:33 - Assessment and Plan (1) Incomplete emptying of bladder Current Visit: No Status: Acute Assessment and plan: I strongly suspect that the patient has a neurogenic bladder with significant incomplete emptying. Outlet obstruction is unlikely in this situation. No medication is available for treatment of incomplete emptying secondary to neurogenic bladder. Only FDA approved procedure is InterStim but at this point I do not feel that she is a good candidate secondary to noncompliance. She has demonstrated noncompliance with therapy and follow-up from a urology standpoint. Because of this, the best option is an indwelling catheter to be changed every 30 days. Please arrange home health orders to change the catheter every 30 days. Intermittent self catheterization would be the preferred management but she would need to perform this 4-5 times per day. She states she would not be able to perform intermittent catheterization. Follow- up with urology only if she desires a change in plan and will consider intermittent catheterization. I reviewed her CT images from August 30. Urothelial thickening is noted but I suspect it is secondary to chronic bacterial colonization and incomplete emptying. Malignancy is considered in the differential but is unlikely. This was discussed with the patient. Urology CN:HPI Consult date: 09/28/17 Reason for consult Urology: Hydronephrosis History of present illness: 72-year-old female. Well-known to the urology service. At least 2 previous consults for similar issues. Incomplete emptying with regression of renal insufficiency. Previous consult recommended indwelling catheter as she is not been able to demonstrate compliance with follow-up or intermittent catheterizations. Again admitted with creatinine levels to 6 or 7. Improvement in renal function with Madden catheter placement. Patient reports that her previous catheter "fell apart" and that she started urinating on her own. CT scan on August 30 demonstrates There is mild bilateral hydronephrosis with uroepithelial thickening. Uroepithelial thickening has increased compared to prior study from July 2016. Bladder wall also demonstrates progressive thickening. Given the chronicity, these findings are likely related to bladder outlet obstruction. Infectious etiology not excluded. Correlation with urinalysis recommended. Past Med Surg Social Fam HX - Past Medical History Medical history: diabetes, hyperlipidemia, hypertension, renal disease, other Psychiatric history: no psych history - Past Surgical History Surgical History: appendectomy, cholecystectomy, hysterectomy - Social History Smoking Status: Never smoker Smokeless Tobacco Status: No Alcohol use: none Drug use: none - Family History Mother Living Status: Hx Family Cardiac Disorders: Yes Father Living Status: Hx Family Cardiac Disorders: Yes Medications and Allergies Metoprolol [Lopressor] 12.5 mg PO BID 03/01/16 [History] Insulin Glargine,Hum.rec.anlog [Lantus Solostar] 30 units SQ HS 07/10/17 [ History] Aspirin Enteric Coated [Aspirin EC] 81 mg PO DAILY 08/04/17 [History] Oxygen 2 l NS AD 08/04/17 [History] Gabapentin [Neurontin] 100 mg PO BID 09/17/17 [History] 3 Allergy/AdvReac Type Severity Reaction Status Date / Time acetaminophen [From Tylenol] Allergy See Verified 09/17/17 16:21 Comments Influenza Virus Vaccines Allergy See Verified 09/17/17 16:21 Comments Review of Systems - Constitutional fatigue, no chills, no fever(s) - Cardiovascular no chest pain - Respiratory no cough - Gastrointestinal no abdominal pain - Genitourinary Genitourinary: flank pain - Musculoskeletal back pain - Integumentary no erythema - Neurological confusion - Psychiatric anxiety - Hematologic/Lymphatic no easy bleeding Exam Initial Vital Signs Temp Pulse Resp BP Pulse Ox 97.9 F 99 16 123/80 100 09/17/17 15:53 09/17/17 15:53 09/17/17 15:53 09/17/17 15:53 09/17/17 15:53 - General physical appearance Present: no distress, chronically ill - Eyes Present: PERRL, conjunctiva is clear - ENT Present: normal nares, no hearing loss - Neck Present: no masses, no lymphadenopathy - Respiratory Present: normal respiratory effort - Cardiovascular Cardiovascular exam IM: RRR - Abdomen Abdomen: Present: soft - Integumentary Present: no rash, no abnormal pigmentation - Neurologic Present: normal coordination. Absent: disoriented, confused - Additional Findings Madden catheter draining clear urine Urology Results - Labs 09/27/17 06:46 09/27/17 06:46 Abnormal lab results RBC 3.01 M/mcL (3.82-4.97) L 09/27/17 06:46 Hgb 7.9 g/dL (11.5-15.4) L 09/27/17 06:46 Hct 25.2 % (35.3-44.9) L 09/27/17 06:46 MCH 26.2 pg (28.0-33.3) L 09/27/17 06:46 MCHC 31.3 g/dL (31.6-35.5) L 09/27/17 06:46 RDW 14.9 % (11.5-14.5) H 09/27/17 06:46 MPV 9.1 fL (9.4-12.4) L 09/27/17 06:46 PT 12.8 Seconds (9.4-12.1) H 09/17/17 16:20 Sodium 132 mEq/L (136-145) L 09/27/17 06:46 Carbon Dioxide 18 mEq/L (23-29) L 09/27/17 06:46 BUN 63 mg/dL (8-23) H 09/27/17 06:46 Creatinine 2.49 mg/dL (0.60-1.20) H 09/27/17 06:46 Est GFR ( Amer) 23 (> 60) L 09/27/17 06:46 Est GFR (Non-Af Amer) 19 (> 60) L 09/27/17 06:46 Glucose 257 mg/dL (70-105) H 09/27/17 06:46 POC Glucose 322 (58-89) H 09/27/17 19:40 Calculated Osmolality 301 (280-300) H 09/27/17 06:46 Uric Acid 8.9 mg/dL (2.3-7.6) H 09/18/17 16:01 Calcium 8.4 mg/dL (8.6-10.3) L 09/27/17 06:46 Phosphorus 5.0 mg/dL (2.7-4.5) H 09/27/17 06:46 Magnesium 1.4 mg/dL (1.6-2.6) L 09/27/17 06:46 Iron 38 mcg/dL (50-170) L 09/26/17 04:24 Transferrin 180 mg/dL (203-362) L 09/26/17 04:24 Ferritin 526 ng/ml (10-120) H 09/26/17 04:24 AST 9 Units/L (13-39) L 09/24/17 09:20 Albumin 2.6 g/dL (3.5-5.7) L 09/24/17 09:20 Globulin 5.3 g/dL (2.4-3.5) H 09/24/17 09:20 Albumin/Globulin Ratio 0.5 (1.1-2.2) L 09/24/17 09:20 Urine Clarity Turbid (Clear) A 09/25/17 23:20 Urine Protein 100 mg/dL (Neg-Trace) H 09/25/17 23:20 Urine Glucose (UA) 250 mg/dL (Normal) H 09/25/17 23:20 Urine Blood Moderate (Negative) H 09/25/17 23:20 Ur Leukocyte Esterase Large (Negative) H 09/25/17 23:20 Urine Microscopic WBC TNTC per hpf (0-3) H 09/25/17 23:20 Ur Squamous Epith Cells Many per lpf (None-Few) H 09/25/17 23:20 Diabetes panel 09/27/17 Range/Units 06:46 Sodium 132 L (136-145) mEq/L Potassium 4.0 (3.5-5.1) mEq/L Chloride 105 (98-107) mEq/L Carbon Dioxide 18 L (23-29) mEq/L BUN 63 H (8-23) mg/dL Creatinine 2.49 H (0.60-1.20) mg/dL Glucose 257 H (70-105) mg/dL Calcium 8.4 L (8.6-10.3) mg/dL Calcium panel 09/27/17 Range/Units 06:46 Calcium 8.4 L (8.6-10.3) mg/dL Phosphorus 5.0 H (2.7-4.5) mg/dL Pituitary panel 09/27/17 Range/Units 06:46 Sodium 132 L (136-145) mEq/L Potassium 4.0 (3.5-5.1) mEq/L Chloride 105 (98-107) mEq/L Carbon Dioxide 18 L (23-29) mEq/L BUN 63 H (8-23) mg/dL Creatinine 2.49 H (0.60-1.20) mg/dL Glucose 257 H (70-105) mg/dL Calcium 8.4 L (8.6-10.3) mg/dL Adrenal panel 09/27/17 Range/Units 06:46 Sodium 132 L (136-145) mEq/L Potassium 4.0 (3.5-5.1) mEq/L Chloride 105 (98-107) mEq/L Carbon Dioxide 18 L (23-29) mEq/L BUN 63 H (8-23) mg/dL Creatinine 2.49 H (0.60-1.20) mg/dL Glucose 257 H (70-105) mg/dL Calcium 8.4 L (8.6-10.3) mg/dL All other labs normal. Consult Discharge Plan - Plan Referrals: Macario Diallo MD [Primary Care Provider] - (PATIENT IS GOING TO [facility] NO PCP APPOINTMENT NEEDED)
[2017-09-28 06:46] LABS: Basophils % 0.2 %; Eosinophils # 0.2 K/mcL (0.0-0.6); Eosinophils % 2.2 %; Hematocrit 24.3 % (35.3-44.9); Hemoglobin 7.5 g/dL (11.5-15.4); Immature Granulocytes % 0.6 % (0-4); Lymphocytes # 1.8 K/mcL (0.6-4.6); Mean Corpuscular HGB Conc 30.9 g/dL (31.6-35.5); Mean Corpuscular Hemoglobin 26.1 pg (28.0-33.3); Mean Corpuscular Volume 84.7 fL (83.0-100.0); Mean Platelet Volume 9.3 fL (9.4-12.4); Monocytes # 0.8 K/mcL (0.0-1.3); Monocytes % 9.4 %; Neutrophils # 5.3 K/mcL (1.6-8.9); Nucleated Red Blood Cells 0.4 /100 WBC (0); Platelet Count 399 K/mcL (140-400); Red Blood Count 2.87 M/mcL (3.82-4.97); Red Cell Distribution Width 14.7 % (11.5-14.5); Segmented Neutrophils % 65.6 %
[2017-09-28 08:45] LABS: Calcium 8.7 mg/dL (8.6-10.3); Magnesium 1.8 mg/dL (1.6-2.6); Phosphorous 4.1 mg/dL (2.7-4.5); Potassium 4.2 mEq/L (3.5-5.1)
[2017-09-28] MEDS: Aspirin Enteric Coated 81 MG Tablet PO SCH (09:50)
[2017-09-28] MEDS: Insulin LISPRO 300 UNITS/3 ML VIAL SQ SCH ×4 (09:50→20:43)
--- NOTE | 2017-09-28 10:25 | Internal Med Progress Note ---
<Yarely Ochoa - Last Filed: 09/28/17 11:50> Date of Encounter: 09/28/17 Time of Encounter: 09:30 - Assessment and plan (1) [id number] kidney injury Current Visit: Yes Status: Acute Assessment and plan: MERNA worsening on CKD stage IV most likely secondary to possible obstructive uropathy vs neurogenic bladder along with vomiting and diarrhea. She has a known hx of bilateral hydronephrosis as seen on retroperitoneal U/S in Aug and persistent hydro on CT 08/30/17; and the latter CT reported urothelial wall thickening (which suggests potential for malignancy). Improvement of Creatinine since admission. However, Cr today is 2.68 and yesterday was 2.49. Continue fluids. Electrolytes normalizing. Due to creatinine improving s/p naylor and urothelial wall thickening seen on CT scan, urology was consulted. Urology strongly suspects neurogenic bladder with significant incomplete emptying. Plan: - continue fluids NS 100ml/hr Per the recommendation of nephrology: - replace naylor as patient has probably worsening hydronephrosis - consult to urology -Encourage p.o fluids -Avoid nephrotoxins if possible -Recommend placement in a rehab facility Per urology: -patient has demonstrated noncompliance with therapy and follow-up from a urology standpoint. Because of this, the best option is an indwelling catheter to be changed every 30 days. Follow-up with urology only if she desires a change in plan and will consider intermittent catheterization. Qualifiers: Acute renal failure type: unspecified Chronic kidney disease stage: stage 3 (moderate) Qualified Code(s): N17.9 - Acute kidney failure, unspecified; N18.3 - Chronic kidney disease, stage 3 (moderate); N18.3 - Chronic kidney disease, stage 3 (moderate) (2) Nausea vomiting and diarrhea Current Visit: Yes Status: Acute Assessment and plan: Patient denies any nausea, vomitting, and diarrhea at this time. Patient admits constipation. Last bowel movements was yesterday. Patient states her stools were hard. Continue patient on stool softner. (3) Hyperkalemia Current Visit: Yes Status: Resolved Assessment and plan: Resolved. Patient's potassium this morning was 4.0. (4) Hyponatremia Current Visit: Yes Status: Resolved Assessment and plan: - continue NS 100ml/hr -Sodium correcting slowly -Sodium was 119 on admission. Today it is 132 -Continue to monitor - Time Spent With Patient Greater than 35 minutes - Subjective Interval history: The patient was seen and evaluate at bedside this morning. Patient is afebrile and appears in no acute distress. Patient was admitted on 09/17/2007 in for nausea, vomiting, diarrhea, hyperkalemia with 8.2 on admission, and acute on chronic kidney injury. Patient states that she is feeling better today. However, the patient complains of constipation. She admits she had a normal nonbloody bowel movement yesterday but it was painful and that her stools were "rock hard". Patient admits that she feels depressed today due to a conversation she had with either a physician or a nurse earlier in the morning. The patient states that the person today told her she was not a surgical candidate for a certain procedure. She states that she feels "guilty for taking up a bed" and that "I will not come back here next time. I'll go to [place]." I apologize to the patient for the experience she had this morning. I reassured her that we are doing our best to help treat her during this admission and to not hesitate to ask any questions she may have. She denies any fever, headache, vision changes, chest pain, shortness of breath, difficulty breathing, abdominal pain, diarrhea, blood in the stool, difficulty urinating, numbness and tingling, and any weaknesses. The patient admits she is looking forward to seeing Dr. Meza today. The patient has no other concerns at this time. - Constitutional Vitals: Temp Pulse Resp BP Pulse Ox 98.1 F 76 16 144/74 97 09/28/17 06:50 09/28/17 06:50 09/28/17 06:50 09/28/17 06:50 09/28/17 06:50 General appearance: Present: A&O X 3, pleasant, no acute distress, answers questions appropriately Exam: The patient was teary when she described the conversation she had earlier this morning about not being a surgical candidate. - Head Head exam: Present: atraumatic, normocephalic - Eye Eye exam: Present: PERRL, conjuntiva pink, sclera anicteric - ENT ENT exam: Present: mucous membranes moist - Neck Neck exam general surgery: Present: supple, trachea midline. Absent: lymphadenopathy - Respiratory Respiratory exam: Present: CTAB. Absent: accessory muscle use, rales, rhonchi, wheezes - Cardiovascular Cardiovascular exam: Present: RRR, +S1, +S2. Absent: diastolic murmur, gallop, rubs, systolic murmur - GI/Abdominal GI/Abdominal exam: Present: normal bowel sounds, soft, no peritoneal signs. Absent: distended, firm, guarding, tenderness - Additional comments: Naylor catheterization is in placed. - Extremities Exam Extremities exam: Present: warm, radial pulses palpable and symmetrical. Absent : calf tenderness, cyanotic, pedal edema - Neurological Exam Neurological exam: Present: CN II-XII intact, oriented X3, no focal deficits. Absent: pronater drift, facial droop, speech deficit - Skin Skin exam: Present: dry, intact, pallor Internal Medicine: Result - Labs CBC & Chem 7: 09/28/17 05:52 09/28/17 05:52 Labs: Short CBC 09/28/17 Range/Units 05:52 WBC 8.1 (4.3-11.1) K/mcL Hgb 7.5 L (11.5-15.4) g/dL Hct 24.3 L (35.3-44.9) % Plt Count 399 (140-400) K/mcL Neutrophils # 5.3 (1.6-8.9) K/mcL BMP 09/28/17 05:52 Sodium 133 L Potassium 4.2 Chloride 104 Carbon Dioxide 19 L BUN 71 H Creatinine 2.68 H Glucose 268 H Calcium 8.7 - ABG Interpretation ABG results: PT/INR, D-dimer PT 12.8 Seconds (9.4-12.1) H 09/17/17 16:20 Consult Discharge Plan - Plan Referrals: Macario Diallo MD [Primary Care Provider] - (PATIENT IS GOING TO [facility] NO PCP APPOINTMENT NEEDED) <Ryder Thomas - Last Filed: 09/28/17 14:23> Date of Encounter: 09/28/17 - Assessment and plan (1) Acute renal failure Current Visit: No Status: Suspected Assessment and plan: Related to chronic obstructive disease. Qualifiers: Acute renal failure type: with acute tubular necrosis Qualified Code(s): N17.0 - Acute kidney failure with tubular necrosis (2) Bilateral hydronephrosis Current Visit: Yes Status: Chronic (3) Anemia in chronic renal disease Current Visit: No Status: Chronic Assessment and plan: Currently on iron. Probable epo as outpatient Transfuse one unit today and recheck tomorrow. Qualifiers: Chronic kidney disease stage: stage 4 (severe) Qualified Code(s): N18.4 - Chronic kidney disease, stage 4 (severe); D63.1 - Anemia in chronic kidney disease; D63.1 - Anemia in chronic kidney disease (4) Hyperkalemia Current Visit: Yes Status: Resolved Assessment and plan: -Resolved; continue to monitor (5) HTN (hypertension) Current Visit: Yes Status: Chronic Assessment and plan: -Metoprolol tartrate 12.5 mg PO BID Qualifiers: Hypertension type: essential hypertension Qualified Code(s): I10 - Essential (primary) hypertension (6) Diabetes mellitus Current Visit: No Status: Chronic Qualifiers: Diabetes mellitus type: type 2 Diabetes mellitus complication status: with kidney complications Diabetes mellitus complication detail: with chronic kidney disease Diabetes mellitus exterminator helper insulin use: with shelter use Chronic kidney disease stage: stage 4 (severe) Qualified Code(s): E11.22 - Type 2 diabetes mellitus with diabetic chronic kidney disease; N18.4 - Chronic kidney disease, stage 4 (severe); N18.4 - Chronic kidney disease, stage 4 ( severe); N18.4 - Chronic kidney disease, stage 4 (severe); N18.4 - Chronic kidney disease, stage 4 (severe); Z79.4 - care home (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; Z79.4 - exterminator helper (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; Z79.4 - care home (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; Z79.4 - care home (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 - Constitutional Vitals: Temp Pulse Resp BP Pulse Ox 98.7 F 74 16 132/74 99 09/28/17 11:05 09/28/17 11:05 09/28/17 11:05 09/28/17 11:05 09/28/17 11:05 Internal Medicine: Result - Labs CBC & Chem 7: 09/28/17 05:52 09/28/17 05:52 Labs: Short CBC 09/28/17 Range/Units 05:52 WBC 8.1 (4.3-11.1) K/mcL Hgb 7.5 L (11.5-15.4) g/dL Hct 24.3 L (35.3-44.9) % Plt Count 399 (140-400) K/mcL Neutrophils # 5.3 (1.6-8.9) K/mcL BMP 09/28/17 05:52 Sodium 133 L Potassium 4.2 Chloride 104 Carbon Dioxide 19 L BUN 71 H Creatinine 2.68 H Glucose 268 H Calcium 8.7 - ABG Interpretation ABG results: PT/INR, D-dimer PT 12.8 Seconds (9.4-12.1) H 09/17/17 16:20 - Attending Attestation I examined this patient and my medical decision-making was reviewed with the Resident Physician on 09/28/17. I agree with the documented findings, disposition and treatment plan as described except to the extent set forth below. Ms Lacy is currently admitted for acute renal failure and hyperkalemia. She remains moderate to high risk due to potential for worsening clinical status. Ms Lacy is resting comfortably. No fever or chills. No CP or SOB. Appreciate urology input regarding naylor. H/H remains low - she has required blood transfusion in the past. Exam Alert Comfortable Mucus membranes dry Heart distant and regular Lungs diminished but clear anteriorly No edema Abd soft I/P 1. Acute renal failure 2. Hyperkalemia 3. Anemia - may benefit from transfusion of unit of blood. Further diagnoses and plan as above Could get blood today and plan d/c to SNF tomorrow. Naylor needs to stay in place.
[2017-09-28] MEDS ORDERED: Folic Acid 1 MG TABLET PO SCH (11:15)
[2017-09-28] MEDS ORDERED: Cyanocobalamin (B-12) 1,000 MCG TABLET PO SCH (11:15)
--- NOTE | 2017-09-28 11:16 | Nephrology Progress Note ---
Date of Encounter: 09/28/17 Time of Encounter: 11:12 - Assessment and Plan (1) MERNA (acute kidney injury) Current Visit: Yes Status: Acute MERNA on CKD. Continued worsening of her renal function after naylor was removed. Improved creatinine once naylor is replaced. Urology re-evaluated and thinks she will need a continuous naylor secondary to neurogenic bladder. Baseline renal function seems to be Stage 3b, but she has frequent episodes of MERNA. She will need a BMP in 1 week and follow-up with [facility] 4-6 weeks after discharge. Check BMP, CBC prior to clinic visit. (2) HTN (hypertension) Current Visit: Yes Status: Chronic Titrate antihypertensive medications at this time. Qualifiers: Hypertension type: essential hypertension Qualified Code(s): I10 - Essential (primary) hypertension (3) Anemia Current Visit: No Status: Acute Monitor hemoglobin. Transfuse as needed. Iron saturation 15% agreee with continuing oral iron supplementation. She may need increased fiber or stool softener secondary to her constipation. Will initiate folate and vitamin B12 supplements. I suspect she will need Epo on an outpatient basis. This can be decided when she follows up in clinic. Qualifiers: Anemia type: unspecified type Qualified Code(s): D64.9 - Anemia, unspecified (4) Metabolic acidosis Current Visit: Yes Status: Acute Discharged on sodium bicarbonate supplementation. Subjective Principal diagnosis: MERNA, CKD stage 4 Interval history: Patient seen. She is working with PT. She has no new complaint other than mild dysphagia. She states she can't eat despite pointing out she has eaten 2/ 3 of her breakfast. Otherwise she states she feels ok. Objective - Vital Signs Vital signs: Vital Signs Temp Pulse Resp BP Pulse Ox 09/28/17 11:05 98.7 F 74 16 132/74 99 09/28/17 06:50 98.1 F 76 16 144/74 97 09/28/17 03:59 98.2 F 77 16 118/66 98 09/28/17 00:14 98.8 F 82 16 131/65 97 09/27/17 19:36 98.1 F 80 16 118/67 98 09/27/17 16:30 97.7 F 75 16 134/87 100 09/27/17 11:51 97.6 F 09/27/17 11:31 94.8 F L 67 14 139/62 94 Intake and Output 02/25/18 02/26/18 02/26/18 23:59 07:59 15:59 Intake Total 240 / 240 360 / 360 Output Total 950 / 950 Balance 240 / 240 -950 / -950 360 / 360 Intake: Oral 240 / 240 360 / 360 Output: Catheter 950 / 950 Other: Meal Dinner Breakfast Percent of Meal Consumed 100% 100% Stool Size Moderate Stool Consistency loose soft Stool Color Brown Weight 55.883 kg Blood Glucose* 322 415 Patient Weight 09/28/17 23:59 Weight 55.883 kg - General Appearance General appearance: Present: well-developed, well-nourished EENT: Present: ATNC Neck: Present: supple Cardiology: Present: regular rate Integumentary: Present: warm and dry Neurologic: Present: alert and oriented x3 Musculoskeletal: Present: no cyanosis Psychiatric: Present: mood/affect appropriate - Lab 09/28/17 05:52 09/28/17 05:52 Most recent lab results Calcium 8.7 mg/dL (8.6-10.3) 09/28/17 05:52 Phosphorus 4.1 mg/dL (2.7-4.5) 09/28/17 05:52 Magnesium 1.8 mg/dL (1.6-2.6) 09/28/17 05:52 Urine Creatinine 32 mg/dL 09/18/17 23:56 Urine Sodium 87.5 mEq/L 09/27/17 07:20 Consult Discharge Plan - Plan Referrals: Macario Diallo MD [Primary Care Provider] - (PATIENT IS GOING TO [facility] NO PCP APPOINTMENT NEEDED)
--- NOTE | 2017-09-28 15:36 | Discharge Summary ---
<Yarely Ochoa - Last Filed: 09/28/17 15:52> Orders not resulted at time of discharge: Pending orders 09/24/17 16:34 Bedside Swallowing Evaluation [EVAL] Routine 09/28/17 15:01 Red Blood Cells [BBK] Stat Type and Screen [BBK] Stat 09/29/17 04:00 BMP [Basic Metabolic Panel] AM 0400 Complete Blood Count [HEME] AM 0400 Date of Encounter: 09/28/17 Time of Encounter: 09:30 - Discharge Diagnosis (1) [id number] kidney injury Priority: Primary Status: Acute Qualifiers: Acute renal failure type: unspecified Chronic kidney disease stage: stage 3 (moderate) Qualified Code(s): N17.9 - Acute kidney failure, unspecified; N18.3 - Chronic kidney disease, stage 3 (moderate); N18.3 - Chronic kidney disease, stage 3 (moderate) (2) Nausea vomiting and diarrhea Priority: Secondary Status: Acute (3) Hyperkalemia Priority: Primary Status: Resolved (4) Hyponatremia Priority: Secondary Status: Resolved Hospital course: Ms. Lacy is a 72 year old female who is admitted on 09/18/2017 for acute worsening of her stage for chronic kidney disease was likely secondary to nausea , vomiting, diarrhea, and UTI. The patient has a significant past medical history of CKD stage IV, diabetes, hypertension, and hyperlipidemia. The patient reported to the emergency department complaining of poor intake, nausea , vomiting, diarrhea for one day. The patient denies any new food exposure and admits she receives her meals from service. At the time, the patient denies any blood in her stool, blood in her vomit, abdominal pain, chest pain, and any shortness of breath. Labs in the emergency department shows elevated potassium at 8.2 prior to admission, Creatinine was 6.42. UA with cloudy urine > 300 protein, Large Leuk esterase, TNTC WBCs, TNTC RBCs, many Squamous epitelium, moderate bacteria. Nephrology was consulted. Patient had recent admission 2 weeks ago for same problems of N,V,D leading to MERNA on CKD and hyperkalemia. Patient given: albuterol, calcium gluconate, insulin, sodium bicarb, kayexalate , and 2L NS. Through admission, patient's potassium and creatinine was improving. Patient completed 3 days of Cipro for her urinary tract infection. Urology was consulted. Per documentation,urology suspect that the patient has a neurogenic bladder with significant incomplete emptying. Outlet obstruction is unlikely in this situation. The patient has demonstrated noncompliance with therapy and follow-up from a urology standpoint. Therefore, the best option is an indwelling catheter to be changed every 30 days. Follow-up with urology only if she desires a change in plan and will consider intermittent catheterization. Today the patient's hemoglobin is at 7.5. The patient will receive one unit of packed red blood cells prior to discharge. Per nephrology, the patient will need a BMP in 1 week and follow-up with [facility] 4-6 weeks after discharge. The patient was instructed not to remove her catheter after discharge and was recommended to follow up with kidney specialists and her primary care physician. The patient agrees with the treatment plan. The patient is afebrile and appears in no acute distress today. Patient states that she feels better when compared to prior admission. Patient has no other concerns at this time. - Time Spent with Patient Total time spent providing and/or coordinating discharge services: Greater than 30 minutes - Discharge Medications Home Medications: Metoprolol [Lopressor] 12.5 mg PO BID 03/01/16 [History] Insulin Glargine,Hum.rec.anlog [Lantus Solostar] 30 units SQ HS 07/10/17 [ History] Aspirin Enteric Coated [Aspirin EC] 81 mg PO DAILY 08/04/17 [History] Oxygen 2 l NS AD 08/04/17 [History] Gabapentin [Neurontin] 100 mg PO BID 09/17/17 [History] Allergies/Adverse Reactions: 3 Allergy/AdvReac Type Severity Reaction Status Date / Time acetaminophen [From Tylenol] Allergy See Verified 09/17/17 16:21 Comments Influenza Virus Vaccines Allergy See Verified 09/17/17 16:21 Comments Date of admission: 09/18/17 04:39 Primary care physician: Macario Diallo MD Consults: 09/18/17 14:18 Consult to Occupational Therapy [CONS] Routine Comment: Evaluate, develop and implement POC Reason for Consult: d/c planning Consult to Physical Therapy [CONS] Routine Comment: Evaluate, develop and implement POC Reason for Consult: d/c planning 09/21/17 10:45 Consult to Wound Care [CONS] Routine Reason for Consult: recommendations for left foot ulcer Call Completed: No 09/27/17 12:55 Consult to Urology [CONS] Routine Consulting Provider: Latesha Marinelli Reason for Consult: persistent bilateral hydronephrosis and urothelial wall thickening. Time Notified: 12:57 Call Completed: Yes Discharging clinician: Yarely Ochoa Anticipated date of discharge: 09/28/17 - Constitutional Vitals: Temp Pulse Resp BP Pulse Ox 98.7 F 74 16 132/74 99 09/28/17 11:05 09/28/17 11:05 09/28/17 11:05 09/28/17 11:05 09/28/17 11:05 General appearance: Present: A&O X 3, pleasant, no acute distress, answers questions appropriately - Head Head exam: Present: atraumatic, normocephalic - Eye Eye exam: Present: PERRL, conjuntiva pink, sclera anicteric - ENT ENT exam: Present: mucous membranes moist - Neck Neck exam general surgery: Present: supple, trachea midline. Absent: lymphadenopathy - Respiratory Respiratory exam: Present: CTAB. Absent: accessory muscle use, rales, rhonchi, wheezes - Cardiovascular Cardiovascular exam: Present: RRR, +S1, +S2. Absent: diastolic murmur, gallop, rubs, systolic murmur - GI/Abdominal GI/Abdominal exam: Present: normal bowel sounds, soft, no peritoneal signs. Absent: distended, tenderness - Additional comments: Naylor catheterization is in placed. - Extremities Exam Extremities exam: Present: warm, radial pulses palpable and symmetrical. Absent : calf tenderness, cyanotic, pedal edema - Neurological Exam Neurological exam: Present: CN II-XII intact, oriented X3, no focal deficits. Absent: pronater drift, facial droop, speech deficit - Skin Skin exam: Present: dry, intact - Patient Status Disposition: Transfer SNF Condition: Fair Functional capacity at discharge: uses cane/walker Overall status at discharge: patient is progressing back to baseline - Ambulatory Orders Ambulatory Orders: Basic Metabolic Panel [CHEM] Time Frame: 1 Week, Facility: [facility], Location: Lab Complete Blood Count [HEME] Time Frame: 1 Week, Facility: [facility], Location: Lab - Discharge Instructions Follow Up With: Macario Diallo MD [Primary Care Provider] - (PATIENT IS GOING TO ECF NO PCP APPOINTMENT NEEDED) [facility] [Provider Group] Additional Instructions: 1. Please follow up with your primary care physician within one week. 2. Please continue all of your home medications as prescribed. 3. Please do not remove the naylor catheter unless the kidney specialists have other recommendations. 4. Please complete your labs (BMP and CBC) in 1 week and follow-up with [facility] 4-6 weeks after discharge. 5. Please return to the hospital for new or worsening symptoms. - Diet and Activity Activity: increase activity as tolerated Diet: advance to your usual diet <Ryder Thomas - Last Filed: 09/28/17 16:12> Orders not resulted at time of discharge: Pending orders 09/24/17 16:34 Bedside Swallowing Evaluation [EVAL] Routine 09/28/17 15:01 Red Blood Cells [BBK] Stat Type and Screen [BBK] Stat 09/29/17 04:00 BMP [Basic Metabolic Panel] AM 0400 Complete Blood Count [HEME] AM 0400 Date of Encounter: 09/28/17 - Discharge Diagnosis (1) Severe dehydration Priority: Primary Status: Resolved (2) Acute renal failure Priority: Primary Status: Suspected Qualifiers: Acute renal failure type: with acute tubular necrosis Qualified Code(s): N17.0 - Acute kidney failure with tubular necrosis (3) Bilateral hydronephrosis Priority: Primary Status: Chronic (4) Anemia in chronic renal disease Priority: Secondary Status: Chronic Qualifiers: Chronic kidney disease stage: stage 4 (severe) Qualified Code(s): N18.4 - Chronic kidney disease, stage 4 (severe); D63.1 - Anemia in chronic kidney disease; D63.1 - Anemia in chronic kidney disease (5) Hyperkalemia Priority: Secondary Status: Resolved (6) HTN (hypertension) Priority: Secondary Status: Chronic Qualifiers: Hypertension type: essential hypertension Qualified Code(s): I10 - Essential (primary) hypertension (7) Diabetes mellitus Priority: Secondary Status: Chronic Qualifiers: Diabetes mellitus type: type 2 Diabetes mellitus complication status: with kidney complications Diabetes mellitus complication detail: with chronic kidney disease Diabetes mellitus care home insulin use: with ocean transportation intermediary use Chronic kidney disease stage: stage 4 (severe) Qualified Code(s): E11.22 - Type 2 diabetes mellitus with diabetic chronic kidney disease; N18.4 - Chronic kidney disease, stage 4 (severe); N18.4 - Chronic kidney disease, stage 4 ( severe); N18.4 - Chronic kidney disease, stage 4 (severe); N18.4 - Chronic kidney disease, stage 4 (severe); 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 Lacy is a 72 year old female - Time Spent with Patient Total time spent providing and/or coordinating discharge services: 38min Date of admission: 09/18/17 04:39 Primary care physician: Macario Diallo MD Consults: 09/18/17 14:18 Consult to Occupational Therapy [CONS] Routine Comment: Evaluate, develop and implement POC Reason for Consult: d/c planning Consult to Physical Therapy [CONS] Routine Comment: Evaluate, develop and implement POC Reason for Consult: d/c planning 09/21/17 10:45 Consult to Wound Care [CONS] Routine Reason for Consult: recommendations for left foot ulcer Call Completed: No 09/27/17 12:55 Consult to Urology [CONS] Routine Consulting Provider: [facility] Reason for Consult: persistent bilateral hydronephrosis and urothelial wall thickening. Time Notified: 12:57 Call Completed: Yes - Constitutional Vitals: Temp Pulse Resp BP Pulse Ox 97.6 F 88 16 150/72 99 09/28/17 15:47 09/28/17 15:47 09/28/17 15:47 09/28/17 15:47 09/28/17 15:47 - Attending Attestation I examined this patient and my medical decision-making was reviewed with the Resident Physician on 09/28/17. I agree with the documented findings, disposition and treatment plan as described except to the extent set forth below. Ms Lacy has been admitted for acute renal failure and hyperkalemia related to obstructive uropathy. She was very dehydrated on admission. She now has a naylor and needs to keep it in place. She has been anemic and has been given one unit of blood prior to discharge. She is afebrile with stable vitals and ready for discharge to SNF. Exam alert. Comfortable Mucus membranes dry Heart reg Lungs diminished Abd soft Plan D/C to SNF today. Maintain naylor. BMP [address] Meza
--- NOTE | 2017-09-28 16:19 | Physician Discharge Referral ---
ExtendedCare Referral Info Provider in Charge after Transfer: PCP Institutional Level of Care: Skilled - Diagnosis (1) Severe dehydration Priority: Primary Status: Resolved (2) Acute renal failure Priority: Primary Status: Suspected (3) Bilateral hydronephrosis Priority: Secondary Status: Chronic (4) Anemia in chronic renal disease Priority: Secondary Status: Chronic (5) Hyperkalemia Priority: Secondary Status: Resolved (6) HTN (hypertension) Priority: Secondary Status: Chronic (7) Diabetes mellitus Priority: Secondary Status: Chronic (8) Nausea & vomiting Priority: Secondary Status: Resolved (9) Urinary retention with incomplete bladder emptying Priority: Secondary Status: Chronic Prognosis: Fair Aware of Diagnosis: Patient Aware of Prognosis: Patient - Transfer Medications Home Medications: Metoprolol [Lopressor] 12.5 mg PO BID 03/01/16 [History] Insulin Glargine,Hum.rec.anlog [Lantus Solostar] 30 units SQ HS 07/10/17 [ History] Aspirin Enteric Coated [Aspirin EC] 81 mg PO DAILY 08/04/17 [History] Oxygen 2 l NS AD 08/04/17 [History] Gabapentin [Neurontin] 100 mg PO BID 09/17/17 [History] Allergies/Adverse Reactions: 3 Allergy/AdvReac Type Severity Reaction Status Date / Time acetaminophen [From Tylenol] Allergy See Verified 09/17/17 16:21 Comments Influenza Virus Vaccines Allergy See Verified 09/17/17 16:21 Comments - Respiratory Orders Oxygen / L per min (Maintain O2 sat greater than 88%) Smoking Cessation: Smoking cessation has been advised. For more information, call the [place] Tobacco Quit Line at 4-835-AXTE-NOW. - Ancillary Orders May use pressure relief devices daily prn, May consult with Dentist, Shirt Sorter, Sow Farm Technician PRN - Advance Directives Code Status: Full Code - Mobility Orders Ambulate - Rehabiliation Orders Rehab Potential: Fair Rehab Orders: Evaluation for Physical Therapy, Evaluation for Occupational Therapy - Treatments Skin tear care topically daily PRN per policy, May check for fecal impaction rectally daily PRN, Fleet enema rectally every other day PRN cleansing purposes List/Other: Do not remove naylor - change monthly. She needs to have naylor for urinary retention. - Diet Orders No Concentrated Sweets, Renal CERTIFICATION: I certify that the transfer of the above named patient to an Extended Care Facility is necessary for the continuing treatment of the diagnosis listed. The above information is true and accurate reflection of patient's current condition. Confidential - Redisclosure prohibited without a patient's written consent.
[2017-09-28] MEDS ORDERED: 0.9 % Sodium Chloride 250 ML ONE (16:49)
[2017-09-28 19:42] VITALS: BP 148/75
[2017-09-28] MEDS: Gabapentin 100 MG CAPSULE PO SCH (20:37)
[2017-09-28] MEDS ORDERED: Insulin DETEMIR 100 UNIT/ML X5UNITS SQ SCH (21:00)
--- NOTE | 2017-09-29 18:21 | Electrocardiograph Report ---
[address] [address] Test Date: 2017-09-26 Pat Name: Lisa Lacy Department: 112 Room: 2A23 Gender: F Globe Tester: : [id number] Requested By: Ryder Thomas Order Number: [id number] Reading MD: Andrew Lawrence Measurements Intervals [place] Rate: 75 P: 22 [place]: 206 QRS: -5 QRSD: 105 T: 219 QT: 384 QTc: 412 Interpretive Statements SINUS RHYTHM ST DEVIATION AND MODERATE T-WAVE ABNORMALITY, CONSIDER LATERAL ISCHEMIA ST DEVIATION AND MODERATE T-WAVE ABNORMALITY, CONSIDER INFERIOR ISCHEMIA Electronically Signed On 09-29-2017 18:19:29 EST by Andrew Lawrence
== END 2017-09-28 20:45 | DRG 683 ==
LOC: EMEROO 15:52 → 2NNU 15:52 → SUATTDRO 09-18 04:39 → 3BNU 09-22 12:25 → 2ANU 09-26 11:48
PROVIDERS: ADMIT Internal Medicine; ATTEND Internal Medicine

== ENCOUNTER 2017-10-09 07:07 | Inpatient (IN) ==
[2017-10-09] MEDS ORDERED: 0.9 % Sodium Chloride 1,000 ML IVC ONE (07:43)
--- NOTE | 2017-10-09 07:47 | Emergency Department Note ---
Addendum entered and electronically signed by Cristopher Gomez DO 10/09/17 10:00 : EKG shows lateral ST depression and T wave abnormality. This is unchanged from prior EKG. Rate 94. Rhythm normal. No T wave changes. Original Note: Disposition Clinical Impression: Hyperkalemia, Hyponatremia, Acute kidney injury Catheter-associated urinary tract infection Qualifiers: Indwelling urinary catheter type: indwelling urethral catheter Encounter type: initial encounter Qualified Code(s): T83.511A - Infection and inflammatory reaction due to indwelling urethral catheter, initial encounter Disposition: Admitted As Inpatient Condition: Good General Adult HPI - General Chief complaint: ED Abdominal Pain Stated complaint: ABD PAIN Time Seen by Provider: 10/09/17 07:22 Source: patient, family Mode of arrival: EMS Limitations: no limitations Nursing Notes Reviewed: Yes Vital Signs Reviewed: Yes - History of Present Illness HPI Narrative: 72-year-old female who reports that she had onset of suprapubic pain beginning last night. Approximately 2 weeks ago she was admitted to the hospital due to abdominal pain with nausea and vomiting. She is found to have a neurogenic bladder and has had a Madden catheter since then. She also reports she has had nausea but no vomiting. The pain is been constant. Other medical problems include diabetes, hypertension, hyperlipidemia. The only surgery she has had in her abdomen was a hysterectomy done over 40 years ago. Last time she was admitted she was found be anemic with a acute kidney injury. She also notes a change in color of her urine. 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 No fever or flank pain. Radiation: non-radiation Pain Severity: severe Pain Scale: 8 Consistency: constant Improves with: nothing Worsens with: nothing Treatments Prior to Arrival: none - Related Data Home Medications Medication Instructions Recorded Confirmed Metoprolol [Lopressor] 12.5 mg PO BID 03/01/16 10/09/17 Insulin Glargine,Hum.rec.anlog 30 units SQ HS 07/10/17 10/09/17 [Lantus Solostar] Aspirin Enteric Coated [Aspirin EC] 81 mg PO DAILY 08/04/17 10/09/17 Oxygen 2 l NS AD 08/04/17 10/09/17 Gabapentin [Neurontin] 100 mg PO BID 09/17/17 10/09/17 Allergies Allergy/AdvReac Type Severity Reaction Status Date / Time acetaminophen [From Tylenol] Allergy See Verified 10/09/17 08:54 Comments Influenza Virus Vaccines Allergy See Verified 10/09/17 08:54 Comments All systems ED: reviewed and negative except as stated. Constitutional: Denies: fever ENT ED: Denies: throat pain Cardiovascular: Denies: chest pain Gastrointestinal: Reports: abdominal pain, nausea. Denies: vomiting, diarrhea Musculoskeletal: Denies: back pain Integumentary: Denies: rash Past Medical History - Past Medical History Medical history: Reports: diabetes, hyperlipidemia, hypertension, renal disease , other Surgical history: Reports: appendectomy, cholecystectomy, hysterectomy Psychiatric history: Reports: no psych history HEEL SLUGGER history: Reports: no HEEL SLUGGER history - Social History Smoking Status: Never smoker Smokeless Tobacco Status: No Alcohol use: Reports: none Drug use: Reports: none Physical Exam - General Limitations: no limitations General appearance: alert, in no apparent distress - Head Head exam: atraumatic - Eye Eye exam: Present: normal appearance - ENT ENT exam: normal exam, normal oropharynx - Neck Neck exam: Present: normal inspection - Chest Chest inspection: Present: normal inspection - Respiratory Respiratory exam: Present: normal lung sounds bilaterally. Absent: respiratory distress - Cardiovascular Cardiovascular exam: Present: regular rate, normal rhythm - Abdominal Exam Abdominal exam: Present: soft, tenderness (Generalized tenderness. Especially suprapubic and also upper abdomen.) - Female External Exam: Present: other (Madden catheter in place with cloudy purulent urine) - Extremities Exam Extremities exam: Absent: pedal edema - Neurological Exam Neurological exam: Present: alert, oriented X3 - Skin Skin exam: Present: warm, dry Course Course Narrative: Her laboratory demonstrates acute kidney injury and her physical exam is consistent with some mild dehydration due to dry mucous membranes. We will fluid hydrate her. In addition she does have hyponatremia and hyperkalemia. Her urinalysis shows many white blood cells with bacteria and leukocyte esterase and she does have suprapubic pain so I will go ahead and treat with Zosyn. Vitals are otherwise stable she does not have any CVA tenderness EKG does not demonstrate any new changes consistent with hyperkalemia. CT shows persistent hydronephrosis w/o obstruction. Will admit. Spoke with Dr Meza who will be a real estate consultant on this patient. Vital Signs Temperature 97.4 F L 10/09/17 07:08 Pulse Rate 76 10/09/17 07:08 Respiratory Rate 14 10/09/17 07:08 Blood Pressure 110/74 10/09/17 07:08 O2 Sat by Pulse Oximetry 98 10/09/17 07:08 Temperature 97.4 F L 10/09/17 07:08 Pulse Rate 96 10/09/17 09:17 Respiratory Rate 16 10/09/17 09:17 Blood Pressure 123/71 10/09/17 09:17 O2 Sat by Pulse Oximetry 98 10/09/17 09:17 Oxygen Delivery Oxygen Delivery Room Air Medical Decision Making - Medical Records Medical records reviewed: Yes I reviewed the patient's medical records. - Lab Data Lab results reviewed: Yes I reviewed the patient's lab results. Result diagrams: 10/09/17 07:13 10/09/17 07:13 Lab Results 10/09/17 10/09/17 10/09/17 Range/Units 07:13 07:13 07:38 WBC 10.6 (4.3-11.1) K/mcL RBC 4.22 (3.82-4.97) M/mcL Hgb 11.2 L (11.5-15.4) g/dL Hct 35.5 (35.3-44.9) % MCV 84.1 (83.0-100.0) fL MCH 26.5 L (28.0-33.3) pg MCHC 31.5 L (31.6-35.5) g/dL RDW 14.6 H (11.5-14.5) % Plt Count 534 H (140-400) K/mcL MPV 9.4 (9.4-12.4) fL Immature Gran % 0.9 (0-4) % Seg Neutrophils % 66.9 % Lymphocytes % 22.2 % Monocytes % 7.0 % Eosinophils % 2.5 % Basophils % 0.5 % Neutrophils # 7.1 (1.6-8.9) K/mcL Lymphocytes # 2.4 (0.6-4.6) K/mcL Monocytes # 0.7 (0.0-1.3) K/mcL Eosinophils # 0.3 (0.0-0.6) K/mcL Basophils # 0.1 (0.0-0.2) K/mcL Sodium 124 L (136-145) mEq/L Potassium 6.0 H (3.5-5.1) mEq/L Chloride 97 L (98-107) mEq/L Carbon Dioxide 18 L (23-29) mEq/L BUN 115 H (8-23) mg/dL Creatinine 4.21 H (0.60-1.20) mg/dL Est GFR ( Amer) 13 L (> 60) Est GFR (Non-Af Amer) 10 L (> 60) BUN/Creatinine Ratio 27 H (6-26) Glucose 286 H (70-105) mg/dL Calculated Osmolality 305 H (280-300) Calcium 9.7 (8.6-10.3) mg/dL Lipase 19 (11-82) Units/L Ur Specimen Adequacy See below A Urine Color [place] (Yellow) Urine Clarity Turbid A (Clear) Urine pH 6.0 (5.0-8.0) pH Units Ur Specific [place] 1.010 (1.010-1.025) Urine Protein >=300 H (Neg-Trace) mg/dL Urine Glucose (UA) Normal (Normal) mg/dL Urine Ketones Negative (Negative) mg/dL Urine Blood Large H (Negative) Urine Nitrite Negative (Negative) Urine Bilirubin Negative (Negative) Urine Urobilinogen Normal (Normal) mg/dL Ur Leukocyte Esterase Large H (Negative) Urine Microscopic RBC Present (0-3) per hpf Urine Microscopic WBC TNTC H (0-3) per hpf Amorphous Sediment Present (Few) Urine Bacteria Present (None-Few) per hpf Ur Culture Indicated? YES A (NO) - Radiology Data Radiology results reviewed: Yes I reviewed the patient's radiology results. Attestation Statement - Attestation Attestation: I examined this patient and my medical decision-making was reviewed with the Resident Physician. I agree with the documented findings, disposition and treatment plan as described except to the extent set forth below. Well-appearing thin female, awake and conversant. Voluntary guarding to moderately deep palpation of the upper abdomen, no peritonitis. Purulent urine from catheter.
[2017-10-09 07:55] LABS: Bilirubin,Urine Negative (Negative); Blood,Urine Large (Negative); Clarity,Urine Turbid (Clear); Glucose,Urine (UA) Normal (Normal); Ketones,Urine Negative (Negative); Leukocyte Esterase,Urine Large (Negative); Nitrite,Urine Negative (Negative); Protein,Urine >=300 mg/dL (Neg-Trace); Urobilinogen,Urine Normal (Normal)
[2017-10-09] MEDS ORDERED: Ondansetron 4 MG/2 ML VIAL IVP ONE (07:56)
[2017-10-09 07:59] LABS: Color,Urine Pink (Yellow)
[2017-10-09 08:02] LABS: RBC,Urine Present per hpf (0-3); WBC,Urine TNTC per hpf (0-3)
[2017-10-09 08:03] LABS: Amorphous Sediment,Urine Present (Few); Bacteria,Urine Present per hpf (None-Few)
[2017-10-09 08:10] LABS: Basophils # 0.1 K/mcL (0.0-0.2); Basophils % 0.5 %; Eosinophils # 0.3 K/mcL (0.0-0.6); Eosinophils % 2.5 %; Hematocrit 35.5 % (35.3-44.9); Hemoglobin 11.2 g/dL (11.5-15.4); Immature Granulocytes % 0.9 % (0-4); Lymphocytes # 2.4 K/mcL (0.6-4.6); Lymphocytes % 22.2 %; Mean Corpuscular HGB Conc 31.5 g/dL (31.6-35.5); Mean Corpuscular Hemoglobin 26.5 pg (28.0-33.3); Mean Corpuscular Volume 84.1 fL (83.0-100.0); Mean Platelet Volume 9.4 fL (9.4-12.4); Monocytes # 0.7 K/mcL (0.0-1.3); Neutrophils # 7.1 K/mcL (1.6-8.9); Platelet Count 534 K/mcL (140-400); Red Blood Count 4.22 M/mcL (3.82-4.97); Red Cell Distribution Width 14.6 % (11.5-14.5); Segmented Neutrophils % 66.9 %
[2017-10-09 08:26] LABS: Calcium 9.7 mg/dL (8.6-10.3)
[2017-10-09] MEDS ORDERED: Piperacillin/Tazobactam 3.375 GM in 0.9 % Sodium Chloride Mini Bag 100 ML IVPB ONE (08:39)
[2017-10-09] MEDS ORDERED: *HR* Promethazine 25 MG/ML VIAL IVP PRN (09:33)
[2017-10-09] MEDS ORDERED: Naloxone 0.4 MG/ML INJ IVP PRN (09:33)
[2017-10-09] MEDS ORDERED: Acetaminophen 325 MG TABLET PO PRN (09:33)
[2017-10-09] MEDS ORDERED: *HR* HYDROcodone/Acet 5/325 mg TABLET PO PRN (09:33)
[2017-10-09] MEDS ORDERED: Ondansetron 4 MG/2 ML VIAL IVP PRN (09:33)
[2017-10-09] MEDS ORDERED: NON-FORMULARY MEDICATION 1 EACH EACH (Oxygen [Oxygen] 2 L) NS SCH (09:45)
[2017-10-09] MEDS: 0.9 % Sodium Chloride 1,000 ML IVC SCH ×2 (10:34→17:25)
[2017-10-09] MEDS ORDERED: *HR* OxyCODONE Immed Rel 5 MG TABLET PO ONE (12:03)
--- NOTE | 2017-10-09 13:13 | Nephrology Consult Note ---
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 Last GFR was 17 last month. At last hospital stay, pt was discharged with indwelling naylor catheter to ECF but she left ECF last thursday due to poor care. She is now home with family with her naylor apparently leaking urine. In ER , urine noted milky even after naylor exchange. CT abd/pelvis showed persistent bilateral moderate hydronephrosis and thickened bladder wall. Pt is a rather poor historian. At bedside was her young teenage grandson, no other family members present at the time of this evaluation. Past Med Surg Social Fam HX - Past Medical History Medical history: diabetes, hyperlipidemia, hypertension, renal disease, other Psychiatric history: no psych history - Past Surgical History Surgical History: appendectomy, cholecystectomy, hysterectomy - Social History Smoking Status: Never smoker Smokeless Tobacco Status: No Alcohol use: none Drug use: none - Family History Mother Living Status: Hx Family Cardiac Disorders: Yes Father Living Status: Hx Family Cardiac Disorders: Yes Medications and Allergies Metoprolol [Lopressor] 12.5 mg PO BID 03/01/16 [History] Insulin Glargine,Hum.rec.anlog [Lantus Solostar] 30 units SQ HS 07/10/17 [ History] Aspirin Enteric Coated [Aspirin EC] 81 mg PO DAILY 08/04/17 [History] Oxygen 2 l NS AD 08/04/17 [History] Gabapentin [Neurontin] 100 mg PO BID 09/17/17 [History] 3 Allergy/AdvReac Type Severity Reaction Status Date / Time acetaminophen [From Tylenol] Allergy See Verified 10/09/17 08:54 Comments Influenza Virus Vaccines Allergy See Verified 10/09/17 08:54 Comments Review of Systems All Systems: reviewed and no additional remarkable complaints except as stated ( 10 systems reviewed) Exam - Vital Signs Vital signs: Initial Vital Signs Temp Pulse Resp BP Pulse Ox 97.4 F L 76 14 110/74 98 10/09/17 07:08 10/09/17 07:08 10/09/17 07:08 10/09/17 07:08 10/09/17 07:08 Vital Signs - Last 8 Hours Pulse Resp BP Pulse Ox 10/09/17 12:46 94 18 122/81 98 10/09/17 11:49 92 16 145/74 98 10/09/17 10:44 97 135/83 97 - General Appearance General appearance: chronically ill, frail EENT: ATNC, mucous membranes dry Neck: no JVD, supple Respiratory: clear (ant bilat) Cardiology: no edema, normal S1, normal S2 Gastrointestinal: no tenderness, no guarding Integumentary: warm and dry Neurologic: no focal deficit Musculoskeletal: no deformities Psychiatric: mood/affect appropriate, cooperative Results - Lab Results 10/09/17 07:13 10/09/17 07:13 Most recent lab results Calcium 9.7 mg/dL (8.6-10.3) 10/09/17 07:13 Consult Discharge Plan - Plan Referrals: Macario Diallo MD [Primary Care Provider] -
[2017-10-09] MEDS: cefTRIAXone 1,000 MG in Water for inj. (sterile) 20 ML 10 ML IVP SCH (14:19)
--- NOTE | 2017-10-09 15:37 | Internal Med History&Physical ---
Date of Encounter: 10/09/17 Time of Encounter: 09:30 Assessment and Plan (1) MERNA (acute kidney injury) Current visit: Yes Status: Acute Admit the pt into Tele Her MERNA due to dehydration + Obstructive uropathy Started on IV hydration Nephro consulted Change Madden cath avoid nephro toxic meds So far good urine out put (2) Hydronephrosis Current visit: No Status: Chronic still has b/l moderate hydropnephrosis and hydro ureter Urology consulted Qualifiers: Hydronephrosis type: other Qualified Code(s): N13.39 - Other hydronephrosis (3) Diarrhea Current visit: Yes Status: Acute She does have chronic diarrhea however will check for C. Diff, due to her recent hospitalizations Cont cholestyramine Qualifiers: Qualified Code(s): R19.7 - Diarrhea, unspecified (4) Catheter-associated urinary tract infection Current visit: Yes Status: Acute UA - abnormal started on Rocephin 1gm IV Daily Sent for urine cx changed Catheter Qualifiers: Indwelling urinary catheter type: indwelling urethral catheter Encounter type: initial encounter Qualified Code(s): T83.511A - Infection and inflammatory reaction due to indwelling urethral catheter, initial encounter; N39.0 - Urinary tract infection, site not specified; N39.0 - Urinary tract infection, site not specified (5) Hyperkalemia Current visit: Yes Status: Acute Due to MERNA + Dehydration On IVF recheck K+ now Nephro consulted EKG reviewed - No acute changes noticed (6) Hyponatremia Current visit: Yes Status: Acute due to dehydration on IVF close monitoring of Na (7) Anxiety Current visit: No Status: Chronic Resumed home meds (8) Chronic kidney disease, stage IV (severe) Current visit: No Status: Chronic Internal Medicine - H&P: HPI Chief complaint: Abdominal pain Admitted From: Emergency Dept Plans for Post Hospital Care: Home History of present illness: Ms. Lacy is a 72 year old female with known past medical history of diabetes type II, hypertension, hyperlipidemia, CKD stage IV, chronic diarrhea and chronic urinary retention pt who recently admitted here for MERNA with urinary retention pt was sent home on Madden catheter now she presented to ER with lower abdomen and supra pubic tenderness from last 3- 5 days, also c/o loss of appetite, not eating and drinking well. In the ER her K+ 6.0 Na: 124 and Cr went upto 4.21. Her CT of abdomen showed persistent moderate hydronephrosis and hydroureter with mucosal thickening. Past Med Surg Social Fam HX - Past Medical History Medical history: diabetes, hyperlipidemia, hypertension, renal disease, other Psychiatric history: no psych history - Past Surgical History Surgical History: appendectomy, cholecystectomy, hysterectomy - Social History Smoking Status: Never smoker Smokeless Tobacco Status: No Alcohol use: none Drug use: none - Family History Mother Living Status: Hx Family Cardiac Disorders: Yes Father Living Status: Hx Family Cardiac Disorders: Yes Internal Medicine - H&P: Meds Metoprolol [Lopressor] 12.5 mg PO BID 03/01/16 [History] Insulin Glargine,Hum.rec.anlog [Lantus Solostar] 30 units SQ HS 07/10/17 [ History] Aspirin Enteric Coated [Aspirin EC] 81 mg PO DAILY 08/04/17 [History] Oxygen 2 l NS AD 08/04/17 [History] Gabapentin [Neurontin] 100 mg PO BID 09/17/17 [History] 3 Allergy/AdvReac Type Severity Reaction Status Date / Time acetaminophen [From Tylenol] Allergy See Verified 10/09/17 08:54 Comments Influenza Virus Vaccines Allergy See Verified 10/09/17 08:54 Comments All Systems PM: A 10-system review of systems was performed and is negative for pertinent findings except as documented above in the HPI. Review of systems: All the systems are reviewed everything is benign except the systems and symptoms I mentioned in the history of present illness - Constitutional Vitals: Temp Pulse Resp BP Pulse Ox 97.4 F L 89 16 136/73 98 10/09/17 13:30 10/09/17 13:30 10/09/17 13:30 10/09/17 13:30 10/09/17 13:30 General appearance: Present: mild distress, A&O X 3, answers questions appropriately - Neck Neck exam general surgery: Present: supple - Respiratory Respiratory exam: Present: decreased breath sounds. Absent: rales, respiratory distress, rhonchi, wheezes - Cardiovascular Cardiovascular exam: Present: RRR, +S1, +S2. Absent: tachycardia - GI/Abdominal GI/Abdominal exam: Present: normal bowel sounds, soft, tenderness (Mild discomfort in the lower abdomen region). Absent: rebound, rigid - Extremities Exam Extremities exam: Absent: calf tenderness, pedal edema, tenderness - Back Exam Back exam: Absent: CVA tenderness (L), CVA tenderness (R) - Neurological Exam Neurological exam: Present: alert, oriented X3 - Psychiatric Psychiatric exam: Present: normal affect, normal mood - Skin Skin exam: Absent: rash Internal Med - H&P Results - Labs CBC & Chem 7: 10/09/17 07:13 10/09/17 07:13
[2017-10-09] MEDS: *HR* Heparin 5,000 UNIT/ML VIAL SQ SCH (17:24)
[2017-10-09 17:33] LABS: Potassium 5.9 mEq/L (3.5-5.1)
--- NOTE | 2017-10-09 18:21 | Urology - Consult Note ---
Date of Encounter: 10/09/17 Time of Encounter: 18:18 - Assessment and Plan (1) Catheter-associated urinary tract infection Current Visit: Yes Status: Acute Assessment and plan: 72-year-old woman with a history of urinary tract infections associated with an indwelling catheter. She is currently on ceftriaxone. We will wait the results of her urine culture. Continue IV antibiotics for now. Transition to oral antibiotics once culture results have returned. Qualifiers: Indwelling urinary catheter type: indwelling urethral catheter Encounter type: initial encounter Qualified Code(s): T83.511A - Infection and inflammatory reaction due to indwelling urethral catheter, initial encounter; N39.0 - Urinary tract infection, site not specified; N39.0 - Urinary tract infection, site not specified (2) Bladder wall thickening Current Visit: No Status: Acute Assessment and plan: She has a likely neurogenic bladder with wall thickening and bilateral hydronephrosis. Her creatinine did elevate this morning, but is coming down this afternoon. I exchanged the catheter for a new one. At this point, I think it may be reasonable to see what her creatinine looks like in the morning. (3) Bilateral hydronephrosis Current Visit: No Status: Chronic Assessment and plan: The hydronephrosis is due to reflux. She has had bilateral hydronephrosis on previous CT scans and this is likely a chronic finding on her CT. Of concern is her bump in the creatinine. I did change her catheter as I was concerned that the tip of the Madden previously might have been pushed into the right ureter. I will see what her creatinine trends towards. If it remains elevated , we can consider bilateral ureteral stents, but I do not think this is likely due to a ureteral stricture bilaterally causing the acute kidney injury. I will continue to follow along with you. Thank you very much for allowing me to participate in this patients care. Urology CN:HPI Consult date: 10/09/17 Reason for consult Urology: Hydronephrosis Requesting physician: Darwin Marcial History of present illness: 72-year-old woman who is well-known to the urology service was readmitted for renal insufficiency and a urinary tract infection. Her creatinine lauryn again. It was 4.21 this morning. A second draw this afternoon was 3.57. She had a CT scan which showed persistent bilateral hydronephrosis with a catheter in place. She has had a known history of neurogenic bladder and hydronephrosis bilaterally. I reportedly reviewed the CT scan. The tip of the Madden catheter appeared to be very close to the right ureteral orifice. I changed the catheter today for a 16-Maltese coude tipped catheter. This evening, she says she is feeling better. She is tolerating diet. Past Med Surg Social Fam HX - Past Medical History Medical history: diabetes, hyperlipidemia, hypertension, renal disease, other Psychiatric history: no psych history - Past Surgical History Surgical History: appendectomy, cholecystectomy, hysterectomy - Social History Smoking Status: Never smoker Smokeless Tobacco Status: No Alcohol use: none Drug use: none - Family History Mother Living Status: Hx Family Cardiac Disorders: Yes Father Living Status: Hx Family Cardiac Disorders: Yes Medications and Allergies Metoprolol [Lopressor] 12.5 mg PO BID 03/01/16 [History] Insulin Glargine,Hum.rec.anlog [Lantus Solostar] 30 units SQ HS 07/10/17 [ History] Aspirin Enteric Coated [Aspirin EC] 81 mg PO DAILY 08/04/17 [History] Oxygen 2 l NS AD 08/04/17 [History] Gabapentin [Neurontin] 100 mg PO BID 09/17/17 [History] 3 Allergy/AdvReac Type Severity Reaction Status Date / Time acetaminophen [From Tylenol] Allergy See Verified 10/09/17 08:54 Comments Influenza Virus Vaccines Allergy See Verified 10/09/17 08:54 Comments Review of Systems - Constitutional no chills, no fever(s) - EENT Nose, mouth and throat: no dizziness - Cardiovascular no chest pain - Respiratory no dyspnea - Gastrointestinal no nausea, no vomiting - Genitourinary Genitourinary: no flank pain, no hematuria - Musculoskeletal no back pain - Integumentary no erythema, no rash - Neurological no weakness - Psychiatric no suicidal ideation - Hematologic/Lymphatic no easy bleeding - Allergic/Immunologic no wheezing Exam Initial Vital Signs Temp Pulse Resp BP Pulse Ox 97.4 F L 76 14 110/74 98 10/09/17 07:08 10/09/17 07:08 10/09/17 07:08 10/09/17 07:08 10/09/17 07:08 - General physical appearance Present: well developed, well nourished, no distress - Eyes Absent: icteric - ENT Present: normal nares - Neck Present: trachea midline - Respiratory Present: normal respiratory effort - Cardiovascular Cardiovascular exam IM: RRR - Abdomen Abdomen: Present: soft - Genitourinary Present: normal external genitalia - Integumentary Present: no rash - Neurologic Present: normal coordination Urology Results - Labs 10/09/17 07:13 10/09/17 16:35 Abnormal lab results Hgb 11.2 g/dL (11.5-15.4) L 10/09/17 07:13 MCH 26.5 pg (28.0-33.3) L 10/09/17 07:13 MCHC 31.5 g/dL (31.6-35.5) L 10/09/17 07:13 RDW 14.6 % (11.5-14.5) H 10/09/17 07:13 Plt Count 534 K/mcL (140-400) H 10/09/17 07:13 Sodium 130 mEq/L (136-145) L 10/09/17 16:35 Potassium 5.9 mEq/L (3.5-5.1) H 10/09/17 16:35 Carbon Dioxide 14 mEq/L (23-29) L 10/09/17 16:35 BUN 106 mg/dL (8-23) H 10/09/17 16:35 Creatinine 3.57 mg/dL (0.60-1.20) H 10/09/17 16:35 Est GFR ( Amer) 15 (> 60) L 10/09/17 16:35 Est GFR (Non-Af Amer) 12 (> 60) L 10/09/17 16:35 BUN/Creatinine Ratio 30 (6-26) H 10/09/17 16:35 Glucose 238 mg/dL (70-105) H 10/09/17 16:35 POC Glucose 233 (58-89) H 10/09/17 16:20 Calculated Osmolality 311 (280-300) H 10/09/17 16:35 Uric Acid 10.0 mg/dL (2.3-7.6) H 10/09/17 13:30 Creatine Kinase 14 Units/L (30-223) L 10/09/17 13:30 Ur Specimen Adequacy See below A 10/09/17 07:38 Urine Clarity Turbid (Clear) A 03/09/18 07:38 Urine Protein >=300 mg/dL (Neg-Trace) H 10/09/17 07:38 Urine Blood Large (Negative) H 10/09/17 07:38 Ur Leukocyte Esterase Large (Negative) H 10/09/17 07:38 Urine Microscopic WBC TNTC per hpf (0-3) H 10/09/17 07:38 Ur Culture Indicated? YES (NO) A 10/09/17 07:38 Diabetes panel 10/09/17 Range/Units 16:35 Sodium 130 L (136-145) mEq/L Potassium 5.9 H (3.5-5.1) mEq/L Chloride 105 (98-107) mEq/L Carbon Dioxide 14 L (23-29) mEq/L BUN 106 H (8-23) mg/dL Creatinine 3.57 H (0.60-1.20) mg/dL Glucose 238 H (70-105) mg/dL Calcium 9.0 (8.6-10.3) mg/dL Calcium panel 10/09/17 Range/Units 16:35 Calcium 9.0 (8.6-10.3) mg/dL Pituitary panel 10/09/17 Range/Units 16:35 Sodium 130 L (136-145) mEq/L Potassium 5.9 H (3.5-5.1) mEq/L Chloride 105 (98-107) mEq/L Carbon Dioxide 14 L (23-29) mEq/L BUN 106 H (8-23) mg/dL Creatinine 3.57 H (0.60-1.20) mg/dL Glucose 238 H (70-105) mg/dL Calcium 9.0 (8.6-10.3) mg/dL Adrenal panel 10/09/17 Range/Units 16:35 Sodium 130 L (136-145) mEq/L Potassium 5.9 H (3.5-5.1) mEq/L Chloride 105 (98-107) mEq/L Carbon Dioxide 14 L (23-29) mEq/L BUN 106 H (8-23) mg/dL Creatinine 3.57 H (0.60-1.20) mg/dL Glucose 238 H (70-105) mg/dL Calcium 9.0 (8.6-10.3) mg/dL All other labs normal. - Imaging CT scan - abdomen: report reviewed, image reviewed CT scan - pelvis: report reviewed, image reviewed Consult Discharge Plan - Plan Referrals: Macario Diallo MD [Primary Care Provider] -
[2017-10-09 18:36] LABS: Sodium, Urine 77.9 mEq/L
[2017-10-09 22:14] LABS: Calcium 8.7 mg/dL (8.6-10.3); Potassium 5.9 mEq/L (3.5-5.1)
[2017-10-09] MEDS: Gabapentin 100 MG CAPSULE PO SCH (22:18)
[2017-10-09] MEDS: Insulin DETEMIR 100 UNIT/ML X5UNITS SQ SCH (22:24)
[2017-10-10 03:41] LABS: Basophils # 0.1 K/mcL (0.0-0.2); Basophils % 0.6 %; Eosinophils # 0.2 K/mcL (0.0-0.6); Eosinophils % 2.4 %; Hematocrit 30.5 % (35.3-44.9); Hemoglobin 9.7 g/dL (11.5-15.4); Immature Granulocytes % 1.3 % (0-4); Lymphocytes % 25.1 %; Mean Corpuscular HGB Conc 31.8 g/dL (31.6-35.5); Mean Platelet Volume 9.6 fL (9.4-12.4); Monocytes # 0.6 K/mcL (0.0-1.3); Monocytes % 7.3 %; Neutrophils # 4.9 K/mcL (1.6-8.9); Platelet Count 449 K/mcL (140-400); Red Blood Count 3.59 M/mcL (3.82-4.97); Red Cell Distribution Width 14.8 % (11.5-14.5); Segmented Neutrophils % 63.3 %
[2017-10-10 03:55] LABS: Calcium 8.9 mg/dL (8.6-10.3); Magnesium 1.9 mg/dL (1.6-2.6); Potassium 5.7 mEq/L (3.5-5.1)
[2017-10-10] MEDS: *HR* Heparin 5,000 UNIT/ML VIAL SQ SCH ×2 (05:16→17:46)
--- NOTE | 2017-10-10 08:36 | Urology Progress Note ---
Date of Encounter: 10/10/17 Time of Encounter: 08:35 - Assessment and Plan (1) Catheter-associated urinary tract infection Current Visit: Yes Status: Acute Qualifiers: Indwelling urinary catheter type: indwelling urethral catheter Encounter type: initial encounter Qualified Code(s): T83.511A - Infection and inflammatory reaction due to indwelling urethral catheter, initial encounter; N39.0 - Urinary tract infection, site not specified; N39.0 - Urinary tract infection, site not specified (2) Bladder wall thickening Current Visit: No Status: Acute (3) Bilateral hydronephrosis Current Visit: No Status: Chronic Assessment and plan: Her creatinine has slightly improved to 3.41. I think she is not obstructed given that her creatinine is coming down. She had 600 mL of urine overnight. I did change her catheter for a coude-tipped catheter to avoid potential misplacement of the tip of the catheter into the ureteral orifice. Recommend continued observation. As her creatinine is improving, I do not think she needs stent placement at this time. I will continue to follow along. Progress Note Narrative: Doing well this morning. Catheter still draining well. No concerns at this time. Objective Initial Vital Signs Temp Pulse Resp BP Pulse Ox 97.4 F L 76 14 110/74 98 10/09/17 07:08 10/09/17 07:08 10/09/17 07:08 10/09/17 07:08 10/09/17 07:08 - General physical appearance Present: well developed, well nourished, no distress - Respiratory Present: normal respiratory effort - Genitourinary Urine Appearance: Present: Clear - Labs 10/10/17 02:58 10/10/17 02:58 Diabetes panel 10/09/17 10/09/17 10/10/17 Range/Units 16:35 21:42 02:58 Sodium 130 L 131 L 135 L (136-145) mEq/L Potassium 5.9 H 5.9 H 5.7 H (3.5-5.1) mEq/L Chloride 105 108 H 110 H (98-107) mEq/L Carbon Dioxide 14 L 16 L 17 L (23-29) mEq/L BUN 106 H 102 H 96 H (8-23) mg/dL Creatinine 3.57 H 3.52 H 3.41 H (0.60-1.20) mg/dL Glucose 238 H 225 H 176 H (70-105) mg/dL Calcium 9.0 8.7 8.9 (8.6-10.3) mg/dL Calcium panel 10/09/17 10/09/17 10/10/17 Range/Units 16:35 21:42 02:58 Calcium 9.0 8.7 8.9 (8.6-10.3) mg/dL Pituitary panel 10/09/17 10/09/17 10/10/17 Range/Units 16:35 21:42 02:58 Sodium 130 L 131 L 135 L (136-145) mEq/L Potassium 5.9 H 5.9 H 5.7 H (3.5-5.1) mEq/L Chloride 105 108 H 110 H (98-107) mEq/L Carbon Dioxide 14 L 16 L 17 L (23-29) mEq/L BUN 106 H 102 H 96 H (8-23) mg/dL Creatinine 3.57 H 3.52 H 3.41 H (0.60-1.20) mg/dL Glucose 238 H 225 H 176 H (70-105) mg/dL Calcium 9.0 8.7 8.9 (8.6-10.3) mg/dL Adrenal panel 10/09/17 10/09/17 10/10/17 Range/Units 16:35 21:42 02:58 Sodium 130 L 131 L 135 L (136-145) mEq/L Potassium 5.9 H 5.9 H 5.7 H (3.5-5.1) mEq/L Chloride 105 108 H 110 H (98-107) mEq/L Carbon Dioxide 14 L 16 L 17 L (23-29) mEq/L BUN 106 H 102 H 96 H (8-23) mg/dL Creatinine 3.57 H 3.52 H 3.41 H (0.60-1.20) mg/dL Glucose 238 H 225 H 176 H (70-105) mg/dL Calcium 9.0 8.7 8.9 (8.6-10.3) mg/dL Consult Discharge Plan - Plan Referrals: Macario Diallo MD [Primary Care Provider] -
[2017-10-10] MEDS: cefTRIAXone 1,000 MG in Water for inj. (sterile) 20 ML 10 ML IVP SCH (08:38)
[2017-10-10] MEDS: Aspirin Enteric Coated 81 MG Tablet PO SCH (08:39)
[2017-10-10] MEDS: Gabapentin 100 MG CAPSULE PO SCH ×2 (08:39→21:57)
--- NOTE | 2017-10-10 11:18 | Internal Med Progress Note ---
Date of Encounter: 10/10/17 Time of Encounter: 11:14 - Assessment and plan (1) Catheter-associated urinary tract infection Current Visit: Yes Status: Acute Assessment and plan: Present on admission. Continue Rocephin for now pending culture results. Previous cultures have been no growth. Qualifiers: Indwelling urinary catheter type: indwelling urethral catheter Encounter type: initial encounter Qualified Code(s): T83.511A - Infection and inflammatory reaction due to indwelling urethral catheter, initial encounter; N39.0 - Urinary tract infection, site not specified; N39.0 - Urinary tract infection, site not specified (2) Renal failure Current Visit: Yes Status: Acute Assessment and plan: Admitted for monitoring. Naylor changed yesterday. Renal following. Recheck labs tomorrow. Qualifiers: Renal failure chronicity: acute on chronic Acute renal failure type: with other specified pathological lesion Chronic kidney disease stage: stage 5, not on chronic dialysis Qualified Code(s): N17.8 - Other acute kidney failure ; N18.5 - Chronic kidney disease, stage 5; N18.5 - Chronic kidney disease, stage 5; N18.5 - Chronic kidney disease, stage 5; N18.5 - Chronic kidney disease , stage 5 (3) Hyperkalemia Current Visit: Yes Status: Acute Assessment and plan: Persists today. Renal following as well. (4) Diarrhea Current Visit: Yes Status: Acute Assessment and plan: Has chronic diarrhea. Stool studies pending as she has also had a history of c diff. Supportive care. Continue cholestyramine Qualifiers: Diarrhea type: functional diarrhea Qualified Code(s): K59.1 - Functional diarrhea (5) Metabolic acidosis Current Visit: No Status: Acute Assessment and plan: Related to renal disease. (6) Anemia Current Visit: No Status: Suspected Assessment and plan: Monitoring. Qualifiers: Anemia type: due to chronic kidney disease Chronic kidney disease stage: stage 5, not on chronic dialysis Qualified Code(s): N18.5 - Chronic kidney disease, stage 5; D63.1 - Anemia in chronic kidney disease; D63.1 - Anemia in chronic kidney disease (7) Severe dehydration Current Visit: No Status: Resolved (8) Diabetes mellitus Current Visit: No Status: Chronic Assessment and plan: Monitoring and covering. 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 Diabetes mellitus complication status: with kidney complications Diabetes mellitus complication detail: with chronic kidney disease Chronic kidney disease stage: stage 4 (severe) Qualified Code(s): E11.22 - Type 2 diabetes mellitus with diabetic chronic kidney disease; N18.4 - Chronic kidney disease, stage 4 (severe); N18.4 - Chronic kidney disease, stage 4 (severe); N18.4 - Chronic kidney disease, stage 4 (severe); N18.4 - Chronic kidney disease, stage 4 (severe); 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 She remains moderate to high risk due to potential for worsening clinical status. Ms Lacy is resting comfortably at this time. No fever or chills. No abd pain at this time. Had naylor changed yesterday. - Constitutional Vitals: Temp Pulse Resp BP Pulse Ox 98.3 F 80 16 132/67 98 10/10/17 07:51 10/10/17 07:51 10/10/17 07:51 10/10/17 07:51 10/10/17 07:51 General appearance: Present: A&O X 3, answers questions appropriately - Head Head exam: Present: normocephalic - Eye Eye exam: Present: conjuntiva pink - ENT ENT exam: Present: mucous membranes dry - Respiratory Respiratory exam: Present: decreased breath sounds, CTAB. Absent: rales, rhonchi, wheezes - Cardiovascular Cardiovascular exam: Present: RRR. Absent: tachycardia - GI/Abdominal GI/Abdominal exam: Present: soft. Absent: tenderness Additional comments: Nontender currently. - Extremities Exam Extremities exam: Present: warm. Absent: tenderness - Neurological Exam Neurological exam: Present: alert, oriented X3, no focal deficits - Skin Skin exam: Present: dry, warm Internal Medicine: Result - Labs CBC & Chem 7: 10/10/17 02:58 10/10/17 02:58 Labs: Short CBC 10/10/17 Range/Units 02:58 WBC 7.8 (4.3-11.1) K/mcL Hgb 9.7 L D (11.5-15.4) g/dL Hct 30.5 L (35.3-44.9) % Plt Count 449 H (140-400) K/mcL Neutrophils # 4.9 (1.6-8.9) K/mcL BMP 10/09/17 10/09/17 10/10/17 16:35 21:42 02:58 Sodium 130 L 131 L 135 L Potassium 5.9 H 5.9 H 5.7 H Chloride 105 108 H 110 H Carbon Dioxide 14 L 16 L 17 L BUN 106 H 102 H 96 H Creatinine 3.57 H 3.52 H 3.41 H Glucose 238 H 225 H 176 H Calcium 9.0 8.7 8.9 Consult Discharge Plan - Plan Referrals: Macario Diallo MD [Primary Care Provider] -
--- NOTE | 2017-10-10 11:33 | Nephrology Progress Note ---
Date of Encounter: 10/10/17 Time of Encounter: 11:30 - Assessment and Plan (1) MERNA (acute kidney injury) Status: Resolved Scr improving at 3.41, GFR 13, will continue IVF UOP good at 1250cc in the past 24hrs Continue to avoid nephrotoxins if possible No acute indication for DERRICK BOAT LEVERMAN at this time Appreciate urology recs, naylor in place (2) Hyperkalemia Status: Chronic Potassium improving slowly down to 5.7 from 6, will change fluids and add bicarb which would help renal diet advised (3) Hyponatremia Status: Acute Sodium improved with IVF at 135 (4) Chronic kidney disease, stage IV (severe) Status: Chronic Baseline GFR around teens to 20s (5) Incomplete emptying of bladder Status: Acute Naylor management per urology Subjective Interval history: Pt seen and examined with no new complaints Objective - Vital Signs Vital signs: Vital Signs Temp Pulse Resp BP Pulse Ox 10/10/17 07:51 98.3 F 80 16 132/67 98 10/10/17 04:22 97.8 F 77 16 121/70 97 10/09/17 23:22 97.6 F 91 16 118/70 99 10/09/17 19:02 97.4 F L 84 16 127/70 93 10/09/17 16:14 97.5 F L 84 16 139/74 99 10/09/17 13:30 97.4 F L 89 16 136/73 98 10/09/17 12:46 94 18 122/81 98 10/09/17 11:49 92 16 145/74 98 Intake and Output 10/09/17 10/10/17 10/10/17 23:59 07:59 15:59 Intake Total 1237 / 1237 560 / 560 Output Total 1250 / 1250 950 / 950 Balance -13 / -13 -950 / -950 560 / 560 Intake: IV Fluids 1000 / 1000 0.9 % Sodium Chloride 1,000 ML 1000 / 1000 @ 125 mls/hr IVC .Q8H [facility] Rx#: [id number] Oral 237 / 237 560 / 560 Output: Urine 650 / 650 Catheter 600 / 600 950 / 950 Other: Meal Breakfast Percent of Meal Consumed 0% Blood Glucose* 198 136 - General Appearance General appearance: Present: chronically ill EENT: Present: ATNC, mucous membranes moist Neck: Present: no JVD, supple Respiratory: Present: clear Cardiology: Present: no edema, normal S1, normal S2 Gastrointestinal: Present: no tenderness, no guarding Integumentary: Present: warm and dry Neurologic: Present: no focal deficit Musculoskeletal: Present: no deformities Psychiatric: Present: mood/affect appropriate - Lab 10/13/17 05:37 10/13/17 05:37 Most recent lab results Calcium 8.9 mg/dL (8.6-10.3) 10/10/17 02:58 Magnesium 1.9 mg/dL (1.6-2.6) 10/10/17 02:58 Urine Creatinine 27 mg/dL 10/09/17 17:49 Urine Sodium 77.9 mEq/L 10/09/17 17:49 Consult Discharge Plan - Plan Instructions: Urinary Tract Infection in Women (DC), Gastroenteritis (DC) Additional Instructions: Follow up with PCP in 2-3 days after discharge. Follow up with flat knitter helper Dr. Dennis in 2-4 weeks after discharge. Obtain BMP at follow up. Referrals: Macario Diallo MD [Primary Care Provider] - (web request sent on 10/12/17) Layla Dennis MD [Partnered Physician] - (web request 10/13/2017)
--- NOTE | 2017-10-10 12:37 | Electrocardiograph Report ---
[address] [place] [address] Test Date: 2017-10-09 Pat Name: Lisa Lacy Department: [id number] Room: 2A13 Gender: F Fuel Tank Sealer And Tester: [facility] : 1945 Requested By: Cristopher Gomez Order Number: [id number] Reading MD: Andrew Lawrence Measurements Intervals Tunas Rate: 94 P: 23 NM: 199 QRS: -19 QRSD: 109 T: 146 QT: 365 QTc: 417 Interpretive Statements SINUS RHYTHM ST DEVIATION AND MODERATE T-WAVE ABNORMALITY, CONSIDER LATERAL ISCHEMIA Electronically Signed On 10-10-2017 12:35:12 EST by Andrew Lawrence
[2017-10-10] MEDS: Sodium Bicarbonate 75 MEQ in 0.45 % Sodium Chloride 1,000 ML IVC SCH (15:25)
[2017-10-10] MEDS: Insulin DETEMIR 100 UNIT/ML X5UNITS SQ SCH (21:57)
[2017-10-11] MEDS: *HR* Heparin 5,000 UNIT/ML VIAL SQ SCH ×2 (06:25→17:42)
[2017-10-11] MEDS: Aspirin Enteric Coated 81 MG Tablet PO SCH (08:08)
[2017-10-11] MEDS: Gabapentin 100 MG CAPSULE PO SCH ×2 (08:08→21:23)
[2017-10-11] MEDS: Sodium Bicarbonate 75 MEQ in 0.45 % Sodium Chloride 1,000 ML IVC SCH (08:10)
[2017-10-11] MEDS: cefTRIAXone 1,000 MG in Water for inj. (sterile) 20 ML 10 ML IVP SCH (08:13)
--- NOTE | 2017-10-11 11:16 | Nephrology Progress Note ---
Date of Encounter: 10/11/17 Time of Encounter: 12:00 - Assessment and Plan (1) MERNA (acute kidney injury) Status: Resolved Scr continues to improve at 2.92, GFR 16 which is around baseline, will continue IVF for now UOP reamins good at 1650cc in the past 24hrs Continue to avoid nephrotoxins if possible No acute indication for X RAY EQUIPMENT TESTER at this time Appreciate urology recs, naylor in place (2) Hyperkalemia Status: Chronic Potassium improving slowly down to 5.5 from 5.7, continue bicarb renal diet advised (3) Hyponatremia Status: Acute Sodium improved with IVF but dropped agian at 130, will monitor (4) Chronic kidney disease, stage IV (severe) Status: Chronic Baseline GFR around teens to 20s (5) Incomplete emptying of bladder Status: Acute Naylor management per urology Subjective Interval history: Pt seen and examined with no new complaints. Feels better overall. Objective - Vital Signs Vital signs: Vital Signs Temp Pulse Resp BP Pulse Ox 10/11/17 07:05 98.1 F 80 16 121/60 98 10/11/17 04:24 98.3 F 82 16 136/72 99 10/10/17 19:16 98.0 F 85 16 145/77 99 10/10/17 15:13 97.7 F 91 18 112/69 98 10/10/17 11:44 98 F 78 16 120/71 97 Intake and Output 10/10/17 10/11/17 10/11/17 22:59 07:59 15:59 Intake Total 480 / 480 Output Total Balance 480 / 480 Intake: IV Fluids Sodium Bicarbonate 75 MEQ In 0. 45% Sodium Chloride 1000 Ml 1000 Ml 1,000 ML @ 75 mls/hr IVC .[id number] [facility] Rx#:[id number] Oral 480 / 480 Output: Catheter Other: Meal Breakfast Percent of Meal Consumed 100% Stool Size Stool Color # Bowel Movement Diapers Weight Blood Glucose* Patient Weight 10/12/17 00:59 Weight 52.8 kg - General Appearance General appearance: Present: chronically ill EENT: Present: ATNC, mucous membranes moist Neck: Present: no JVD, supple Respiratory: Present: clear Cardiology: Present: no edema, normal S1, normal S2 Gastrointestinal: Present: no tenderness, no guarding Integumentary: Present: warm and dry Neurologic: Present: no focal deficit Musculoskeletal: Present: no deformities Psychiatric: Present: mood/affect appropriate - Lab 10/13/17 05:37 10/13/17 05:37 Most recent lab results Calcium 8.9 mg/dL (8.6-10.3) 10/10/17 02:58 Magnesium 1.9 mg/dL (1.6-2.6) 10/10/17 02:58 Urine Creatinine 27 mg/dL 10/09/17 17:49 Urine Sodium 77.9 mEq/L 10/09/17 17:49 Consult Discharge Plan - Plan Instructions: Urinary Tract Infection in Women (DC), Gastroenteritis (DC) Additional Instructions: Follow up with PCP in 2-3 days after discharge. Follow up with food and beverage analyst Dr. Dennis in 2-4 weeks after discharge. Obtain BMP at follow up. Referrals: Macario Diallo MD [Primary Care Provider] - (web request sent on 10/12/17) Layla Dennis MD [Partnered Physician] - (web request 10/13/2017)
[2017-10-11 11:45] LABS: Calcium 8.5 mg/dL (8.6-10.3); Potassium 5.5 mEq/L (3.5-5.1)
--- NOTE | 2017-10-11 13:11 | Internal Med Progress Note ---
Date of Encounter: 10/11/17 Time of Encounter: 11:30 - Assessment and plan (1) Catheter-associated urinary tract infection Current Visit: Yes Status: Acute Assessment and plan: Present on admission. Culture no growth at this time. Will complete course of abx. Qualifiers: Indwelling urinary catheter type: indwelling urethral catheter Encounter type: subsequent encounter Qualified Code(s): T83.511D - Infection and inflammatory reaction due to indwelling urethral catheter, subsequent encounter ; N39.0 - Urinary tract infection, site not specified; N39.0 - Urinary tract infection, site not specified (2) Renal failure Current Visit: Yes Status: Acute Assessment and plan: Admitted for monitoring. Madden changed Renal following. Creatinine improving today. Qualifiers: Renal failure chronicity: acute on chronic Acute renal failure type: with other specified pathological lesion Chronic kidney disease stage: stage 5, not on chronic dialysis Qualified Code(s): N17.8 - Other acute kidney failure ; N18.5 - Chronic kidney disease, stage 5; N18.5 - Chronic kidney disease, stage 5; N18.5 - Chronic kidney disease, stage 5; N18.5 - Chronic kidney disease , stage 5 (3) Hyperkalemia Current Visit: Yes Status: Acute Assessment and plan: Following at this time. (4) Diarrhea Current Visit: Yes Status: Acute Assessment and plan: Has chronic diarrhea. Feels it is better at this time. Stool studies pending as she has also had a history of c diff. Supportive care. Continue cholestyramine Qualifiers: Diarrhea type: functional diarrhea Qualified Code(s): K59.1 - Functional diarrhea (5) Metabolic acidosis Current Visit: No Status: Acute Assessment and plan: Related to renal disease. (6) Anemia Current Visit: No Status: Suspected Assessment and plan: Monitoring. Qualifiers: Anemia type: due to chronic kidney disease Chronic kidney disease stage: stage 5, not on chronic dialysis Qualified Code(s): N18.5 - Chronic kidney disease, stage 5; D63.1 - Anemia in chronic kidney disease; D63.1 - Anemia in chronic kidney disease (7) Diabetes mellitus Current Visit: No Status: Chronic Assessment and plan: Monitoring and covering. Qualifiers: Diabetes mellitus type: type 2 Diabetes mellitus mcfp insulin use: with mcfp use Diabetes mellitus complication status: with kidney complications Diabetes mellitus complication detail: with chronic kidney disease Chronic kidney disease stage: stage 4 (severe) Qualified Code(s): E11.22 - Type 2 diabetes mellitus with diabetic chronic kidney disease; N18.4 - Chronic kidney disease, stage 4 (severe); N18.4 - Chronic kidney disease, stage 4 (severe); N18.4 - Chronic kidney disease, stage 4 (severe); N18.4 - Chronic kidney disease, stage 4 (severe); Z79.4 - snf (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; Z79.4 - terminal worker (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; Z79.4 - snf (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; Z79.4 - snf (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 (8) HTN (hypertension) Current Visit: No Status: Chronic Assessment and plan: Chronic issue Qualifiers: Hypertension type: essential hypertension Qualified Code(s): I10 - Essential (primary) hypertension - Subjective Interval history: Ms Lacy is currently admitted for acute on chronic renal failure. She remains moderate to high risk due to potential for worsening clinical status. Ms Lacy is more alert today. Says she is not having any more diarrhea. No fever or chills. No CP or SOB. Tolerating current treatment. Grandson here visiting and feels she is much better today. - Constitutional Vitals: Temp Pulse Resp BP Pulse Ox 97.8 F 81 17 153/73 98 10/11/17 12:20 10/11/17 12:20 10/11/17 12:20 10/11/17 12:20 10/11/17 12:20 General appearance: Present: A&O X 3, answers questions appropriately - Head Head exam: Present: normocephalic - Eye Eye exam: Present: conjuntiva pink - ENT ENT exam: Present: mucous membranes dry - Respiratory Respiratory exam: Present: CTAB. Absent: rhonchi, wheezes - Cardiovascular Cardiovascular exam: Present: distant heart sounds. Absent: tachycardia - GI/Abdominal GI/Abdominal exam: Present: soft. Absent: tenderness - Extremities Exam Extremities exam: Present: warm. Absent: tenderness - Neurological Exam Neurological exam: Present: alert, oriented X3 - Skin Skin exam: Present: dry, warm Internal Medicine: Result - Labs CBC & Chem 7: 10/10/17 02:58 10/11/17 11:12 Labs: BMP 10/11/17 11:12 Sodium 130 L Potassium 5.5 H Chloride 102 Carbon Dioxide 19 L BUN 81 H Creatinine 2.92 H Glucose 432 H Calcium 8.5 L Consult Discharge Plan - Plan Referrals: Macario Diallo MD [Primary Care Provider] -
[2017-10-11] MEDS ORDERED: *HR* Dextrose 50 % in Water (Syg) 50 ML SYRINGE IVP PRN (14:10)
[2017-10-11] MEDS ORDERED: Dextrose Gel 15 GM/37.5 ML TUBE PO PRN ×2 (14:10)
[2017-10-11] MEDS ORDERED: D5% in Water 1,000 ML IVC PRN (14:10)
[2017-10-11] MEDS: Insulin LISPRO 300 UNITS/3 ML VIAL SQ SCH ×2 (17:42→21:24)
[2017-10-11] MEDS: Insulin DETEMIR 100 UNIT/ML X5UNITS SQ SCH (21:24)
[2017-10-12 04:12] LABS: Hematocrit 28.6 % (35.3-44.9); Hemoglobin 9.3 g/dL (11.5-15.4); Mean Corpuscular HGB Conc 32.5 g/dL (31.6-35.5); Mean Corpuscular Hemoglobin 27.3 pg (28.0-33.3); Mean Corpuscular Volume 83.9 fL (83.0-100.0); Mean Platelet Volume 9.4 fL (9.4-12.4); Platelet Count 364 K/mcL (140-400); Red Blood Count 3.41 M/mcL (3.82-4.97); Red Cell Distribution Width 14.8 % (11.5-14.5)
[2017-10-12 04:32] LABS: Albumin 2.6 g/dL (3.5-5.7); Calcium 8.7 mg/dL (8.6-10.3); Phosphorous 2.7 mg/dL (2.7-4.5); Potassium 5.4 mEq/L (3.5-5.1)
[2017-10-12] MEDS: *HR* Heparin 5,000 UNIT/ML VIAL SQ SCH ×2 (06:29→16:59)
[2017-10-12] MEDS: Gabapentin 100 MG CAPSULE PO SCH ×2 (08:01→21:29)
[2017-10-12] MEDS: Aspirin Enteric Coated 81 MG Tablet PO SCH (08:01)
[2017-10-12] MEDS: Insulin LISPRO 300 UNITS/3 ML VIAL SQ SCH ×4 (08:03→21:26)
[2017-10-12] MEDS: cefTRIAXone 1,000 MG in Water for inj. (sterile) 20 ML 10 ML IVP SCH (08:05)
--- NOTE | 2017-10-12 15:59 | Internal Med Progress Note ---
Date of Encounter: 10/12/17 Time of Encounter: 15:40 - Assessment and plan (1) Catheter-associated urinary tract infection Current Visit: Yes Status: Acute Assessment and plan: Present on admission. Currently on IV abx. Anticipate complete 10 day course total. Qualifiers: Indwelling urinary catheter type: indwelling urethral catheter Encounter type: subsequent encounter Qualified Code(s): T83.511D - Infection and inflammatory reaction due to indwelling urethral catheter, subsequent encounter ; N39.0 - Urinary tract infection, site not specified; N39.0 - Urinary tract infection, site not specified (2) Renal failure Current Visit: Yes Status: Acute Assessment and plan: Admitted for monitoring. Madden changed Renal following. Appears to be at baseline renal function. She is feeling nauseous and congested today. Hopefully will be able to discharge home tomorrow. Qualifiers: Renal failure chronicity: acute on chronic Acute renal failure type: with other specified pathological lesion Chronic kidney disease stage: stage 5, not on chronic dialysis Qualified Code(s): N17.8 - Other acute kidney failure ; N18.5 - Chronic kidney disease, stage 5; N18.5 - Chronic kidney disease, stage 5; N18.5 - Chronic kidney disease, stage 5; N18.5 - Chronic kidney disease , stage 5 (3) Hyperkalemia Current Visit: Yes Status: Chronic Assessment and plan: Following at this time. (4) Diarrhea Current Visit: Yes Status: Acute Assessment and plan: Has chronic diarrhea. Feels it is better at this time. Also has a history of c diff. Continue cholestyramine Qualifiers: Diarrhea type: functional diarrhea Qualified Code(s): K59.1 - Functional diarrhea (5) Metabolic acidosis Current Visit: No Status: Resolved Assessment and plan: Related to renal disease. (6) Anemia Current Visit: No Status: Suspected Assessment and plan: Monitoring. Qualifiers: Anemia type: due to chronic kidney disease Chronic kidney disease stage: stage 5, not on chronic dialysis Qualified Code(s): N18.5 - Chronic kidney disease, stage 5; D63.1 - Anemia in chronic kidney disease; D63.1 - Anemia in chronic kidney disease (7) Diabetes mellitus Current Visit: No Status: Chronic Assessment and plan: Monitoring and covering. Qualifiers: Diabetes mellitus type: type 2 Diabetes mellitus rodent exterminator insulin use: with residential use Diabetes mellitus complication status: with kidney complications Diabetes mellitus complication detail: with chronic kidney disease Chronic kidney disease stage: stage 5, not on chronic dialysis Qualified Code(s): E11.22 - Type 2 diabetes mellitus with diabetic chronic kidney disease; N18.5 - Chronic kidney disease, stage 5; N18.5 - Chronic kidney disease, stage 5; N18.5 - Chronic kidney disease, stage 5; N18.5 - Chronic kidney disease, stage 5; Z79.4 - group home (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; Z79.4 - exterminator termite (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; Z79.4 - exterminator termite (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; Z79.4 - exterminator termite (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 (8) HTN (hypertension) Current Visit: No Status: Chronic Assessment and plan: Chronic issue Qualifiers: Hypertension type: essential hypertension Qualified Code(s): I10 - Essential (primary) hypertension - Subjective Interval history: Ms Lacy is currently admitted for acute on chronic renal failure. She remains moderate to high risk due to potential for worsening clinical status. Ms Lacy feels like her head is more congested today. No fever or chills. Feels nauseated as well. No CP or SOB at this time. - Constitutional Vitals: Temp Pulse Resp BP Pulse Ox 98.6 F 67 14 134/63 98 10/12/17 15:10 10/12/17 15:10 10/12/17 15:10 10/12/17 15:10 10/12/17 15:10 General appearance: Present: A&O X 3, answers questions appropriately - Head Head exam: Present: normocephalic - Eye Eye exam: Present: conjuntiva pink - ENT ENT exam: Present: mucous membranes dry - Respiratory Respiratory exam: Present: decreased breath sounds. Absent: rales, rhonchi, wheezes - Cardiovascular Cardiovascular exam: Present: RRR. Absent: tachycardia - GI/Abdominal GI/Abdominal exam: Present: soft. Absent: tenderness - Extremities Exam Extremities exam: Present: warm. Absent: tenderness - Neurological Exam Neurological exam: Present: alert, oriented X3 - Skin Skin exam: Present: dry, warm Internal Medicine: Result - Labs CBC & Chem 7: 10/12/17 03:55 10/12/17 03:55 Labs: Short CBC 10/12/17 Range/Units 03:55 WBC 7.3 (4.3-11.1) K/mcL Hgb 9.3 L (11.5-15.4) g/dL Hct 28.6 L (35.3-44.9) % Plt Count 364 (140-400) K/mcL BMP 10/12/17 03:55 Sodium 128 L Potassium 5.4 H Chloride 100 Carbon Dioxide 23 BUN 71 H Creatinine 2.61 H Glucose 366 H Calcium 8.7 Liver Function 10/12/17 Range/Units 03:55 Albumin 2.6 L (3.5-5.7) g/dL Consult Discharge Plan - Plan Referrals: Macario Diallo MD [Primary Care Provider] - (web request sent on 10/12/17)
--- NOTE | 2017-10-12 18:34 | Nephrology Progress Note ---
Date of Encounter: 10/12/17 Time of Encounter: 11:00 - Assessment and Plan (1) MERNA (acute kidney injury) Status: Resolved Scr back at baseline at 2.61, GFR 18 UOP good at 2850cc in the past 24hrs Continue to avoid nephrotoxins if possible No acute indication for [facility] at this time Appreciate urology recs, naylor in place Ok for discharge from a renal standpoint with followup with me in 2-4 weeks (2) Hyperkalemia Status: Chronic Potassium improving slowly down to 5.7 from 6, will change fluids and add bicarb which would help renal diet advised (3) Hyponatremia Status: Acute Sodium improved with IVF at 135 (4) Chronic kidney disease, stage IV (severe) Status: Chronic Baseline GFR around teens to 20s (5) Incomplete emptying of bladder Status: Acute Naylor management per urology Subjective Interval history: Pt seen and examined with no new complaints Objective - Vital Signs Vital signs: Vital Signs Temp Pulse Resp BP Pulse Ox 10/12/17 15:10 98.6 F 67 14 134/63 98 10/12/17 10:21 98.3 F 78 14 136/67 97 10/12/17 06:47 98.9 F 78 14 145/67 95 10/12/17 04:43 98 F 82 16 137/67 96 10/12/17 00:58 98.3 F 78 16 103/56 98 10/11/17 19:28 99.3 F 84 16 132/69 98 Intake and Output 10/12/17 10/12/17 10/12/17 07:59 15:59 23:59 Intake Total 50 / 50 605 / 605 240 / 240 Output Total 1050 / 1050 1200 / 1200 Balance -1000 / -1000 -595 / -595 240 / 240 Intake: Oral 50 / 50 480 / 480 240 / 240 Free Water 125 / 125 Output: Catheter 1050 / 1050 1200 / 1200 Other: Meal Lunch Dinner Percent of Meal Consumed 75% 100% Weight 54.7 kg Blood Glucose* 325 275 Patient Weight 10/12/17 23:59 Weight 54.7 kg - General Appearance General appearance: Present: chronically ill, frail EENT: Present: ATNC, mucous membranes moist Neck: Present: no JVD, supple Respiratory: Present: clear Cardiology: Present: no edema, normal S1, normal S2 Gastrointestinal: Present: no tenderness Integumentary: Present: warm and dry Neurologic: Present: no focal deficit Musculoskeletal: Present: no deformities Psychiatric: Present: mood/affect appropriate - Lab 10/13/17 05:37 10/13/17 05:37 Most recent lab results Calcium 8.7 mg/dL (8.6-10.3) 10/12/17 03:55 Phosphorus 2.7 mg/dL (2.7-4.5) 10/12/17 03:55 Magnesium 1.9 mg/dL (1.6-2.6) 10/10/17 02:58 Urine Creatinine 27 mg/dL 10/09/17 17:49 Urine Sodium 77.9 mEq/L 10/09/17 17:49 Consult Discharge Plan - Plan Instructions: Urinary Tract Infection in Women (DC), Gastroenteritis (DC) Additional Instructions: Follow up with PCP in 2-3 days after discharge. Follow up with nursing program chair Dr. Dennis in 2-4 weeks after discharge. Obtain BMP at follow up. Referrals: Macario Diallo MD [Primary Care Provider] - (web request sent on 10/12/17) Layla Dennis MD [Partnered Physician] - (web request 10/13/2017)
[2017-10-12] MEDS: Insulin DETEMIR 100 UNIT/ML X5UNITS SQ SCH (21:28)
[2017-10-13 06:38] LABS: Hematocrit 32.2 % (35.3-44.9); Hemoglobin 10.1 g/dL (11.5-15.4); Mean Corpuscular HGB Conc 31.4 g/dL (31.6-35.5); Mean Corpuscular Hemoglobin 26.9 pg (28.0-33.3); Mean Corpuscular Volume 85.6 fL (83.0-100.0); Mean Platelet Volume 9.4 fL (9.4-12.4); Platelet Count 401 K/mcL (140-400); Red Blood Count 3.76 M/mcL (3.82-4.97); Red Cell Distribution Width 14.8 % (11.5-14.5)
[2017-10-13] MEDS: *HR* Heparin 5,000 UNIT/ML VIAL SQ SCH ×2 (06:45→16:36)
[2017-10-13 06:49] LABS: Calcium 9.1 mg/dL (8.6-10.3); Potassium 5.2 mEq/L (3.5-5.1)
[2017-10-13] MEDS: Aspirin Enteric Coated 81 MG Tablet PO SCH (07:53)
[2017-10-13] MEDS: Gabapentin 100 MG CAPSULE PO SCH (07:54)
[2017-10-13] MEDS: cefTRIAXone 1,000 MG in Water for inj. (sterile) 20 ML 10 ML IVP SCH (07:54)
[2017-10-13] MEDS: Insulin LISPRO 300 UNITS/3 ML VIAL SQ SCH ×3 (07:57→16:36)
[2017-10-13] MEDS: Insulin DETEMIR 100 UNIT/ML X5UNITS SQ SCH (08:29)
--- NOTE | 2017-10-13 11:49 | Nephrology Progress Note ---
<Mirna Scanlon Curt - Last Filed: 10/13/17 11:52> Date of Encounter: 10/13/17 Time of Encounter: 11:47 - Assessment and Plan (1) MERNA (acute kidney injury) Status: Resolved (2) Chronic kidney disease, stage IV (severe) Status: Chronic Scr at baseline 2.36, GFR 20 UOP good at 2950ml Avoid nephrotoxins if possible Ok for a renal standpoint to discharge with f/u in office with Dr Dennis in 2-4 weeks and BMP 1 week after discharge (3) Hyperkalemia Status: Chronic K+ 5.2 improving Continue renal diet (4) UTI (urinary tract infection) Status: Acute per primary team Qualifiers: Urinary tract infection type: acute cystitis Hematuria presence: with hematuria Qualified Code(s): N30.01 - Acute cystitis with hematuria Subjective Principal diagnosis: MERNA, CKD stage 4, UTI Interval history: Patient seen and examined. States she is feeling better. Objective - Vital Signs Vital signs: Vital Signs Temp Pulse Resp BP Pulse Ox 10/13/17 07:08 98.0 F 75 16 111/65 99 10/13/17 04:05 98.1 F 70 16 117/66 98 10/12/17 23:25 98.3 F 63 16 136/70 98 10/12/17 19:43 98.9 F 80 16 159/78 100 10/12/17 15:10 98.6 F 67 14 134/63 98 Intake and Output 10/12/17 10/13/17 10/13/17 23:59 07:59 15:59 Intake Total 240 / 240 600 / 600 Output Total 700 / 700 650 / 650 Balance -460 / -460 -50 / -50 Intake: Oral 240 / 240 600 / 600 Output: Catheter 700 / 700 650 / 650 Other: Meal Dinner Percent of Meal Consumed 100% Weight 54.4 kg Blood Glucose* 233 187 Patient Weight 10/13/17 23:59 Weight 54.4 kg - General Appearance General appearance: Present: well-developed, well-nourished EENT: Present: ATNC, mucous membranes moist, hearing intact, vision intact Neck: Present: supple Respiratory: Present: clear Cardiology: Present: no edema, normal S1, normal S2 Gastrointestinal: Present: no tenderness, no guarding Integumentary: Present: warm and dry Psychiatric: Present: mood/affect appropriate, cooperative - Lab 10/13/17 05:37 10/13/17 05:37 Most recent lab results Calcium 9.1 mg/dL (8.6-10.3) 10/13/17 05:37 Phosphorus 2.7 mg/dL (2.7-4.5) 10/12/17 03:55 Magnesium 1.9 mg/dL (1.6-2.6) 10/10/17 02:58 Urine Creatinine 27 mg/dL 10/09/17 17:49 Urine Sodium 77.9 mEq/L 10/09/17 17:49 Consult Discharge Plan - Plan Instructions: Urinary Tract Infection in Women (DC), Gastroenteritis (DC) Additional Instructions: Follow up with PCP in 2-3 days after discharge. Follow up with histology specialist Dr. Dennis in 2-4 weeks after discharge. Obtain BMP at follow up. Referrals: Macario Diallo MD [Primary Care Provider] - (web request sent on 10/12/17) Layla Dennis MD [Partnered Physician] - (web request 10/13/2017) <Layla Dennis - Last Filed: 11/05/17 19:25> Date of Encounter: 10/13/17 - Assessment and Plan (1) MERNA (acute kidney injury) Status: Resolved (2) Hyperkalemia Status: Chronic (3) Hyponatremia Status: Acute (4) Chronic kidney disease, stage IV (severe) Status: Chronic (5) Incomplete emptying of bladder Status: Acute Objective - Lab 10/13/17 05:37 10/13/17 05:37 Most recent lab results Calcium 9.1 mg/dL (8.6-10.3) 10/13/17 05:37 Phosphorus 2.7 mg/dL (2.7-4.5) 10/12/17 03:55 Magnesium 1.9 mg/dL (1.6-2.6) 10/10/17 02:58 Urine Creatinine 27 mg/dL 10/09/17 17:49 Urine Sodium 77.9 mEq/L 10/09/17 17:49 - Attending Attestation I examined this patient and my medical decision-making was reviewed with the Resident Physician/CUSTOMER SUPPLY CHAIN ANALYST. I agree with the documented findings, disposition and treatment plan as described except to the extent set forth below. Pt seen and examined with PE unchanged. Pt is eager to go home. Renal fxn now at baseline with GFR at 20. Continue to avoid nephrotoxins if possible. Encouraged continued adequate fluid intake. Urology followup advised. Followup with me also planned within 4 weeks and BMP within a week.
[2017-10-13 16:09] VITALS: BP 133/72
--- NOTE | 2017-10-13 17:14 | Discharge Summary ---
- NOTES TO OUTPATIENT PROVIDER Notes to Outpatient Provider: Check BMP at follow up to monitor renal function and potassium. Orders not resulted at time of discharge: Pending orders 10/13/17 15:53 MRSA Surveillance Screen [MOLMIC] Stat 10/14/17 04:00 Basic Metabolic Panel AM 0400 CBC [Complete Blood Count] [HEME] AM 0400 Date of Encounter: 10/13/17 Time of Encounter: 17:10 - Discharge Diagnosis (1) MERNA (acute kidney injury) Priority: Primary Status: Resolved (2) Chronic kidney disease, stage IV (severe) Priority: Secondary Status: Chronic (3) Catheter-associated urinary tract infection Priority: Secondary Status: Ruled-out Qualifiers: Indwelling urinary catheter type: indwelling urethral catheter Encounter type: subsequent encounter Qualified Code(s): T83.511D - Infection and inflammatory reaction due to indwelling urethral catheter, subsequent encounter ; N39.0 - Urinary tract infection, site not specified; N39.0 - Urinary tract infection, site not specified (4) Diarrhea Priority: Secondary Status: Acute Qualifiers: Diarrhea type: functional diarrhea Qualified Code(s): K59.1 - Functional diarrhea (5) Metabolic acidosis Priority: Secondary Status: Resolved (6) Diabetes mellitus Priority: Secondary Status: Chronic Qualifiers: Diabetes mellitus type: type 2 Diabetes mellitus half-way insulin use: with half-way use Diabetes mellitus complication status: with kidney complications Diabetes mellitus complication detail: with chronic kidney disease Chronic kidney disease stage: stage 5, not on chronic dialysis Qualified Code(s): E11.22 - Type 2 diabetes mellitus with diabetic chronic kidney disease; N18.5 - Chronic kidney disease, stage 5; N18.5 - Chronic kidney disease, stage 5; N18.5 - Chronic kidney disease, stage 5; N18.5 - Chronic kidney disease, stage 5; Z79.4 - MCC (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; 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; 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; Z79.4 - MCC (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 (7) HTN (hypertension) Priority: Secondary Status: Chronic Qualifiers: Hypertension type: essential hypertension Qualified Code(s): I10 - Essential (primary) hypertension (8) Anemia Priority: Secondary Status: Chronic Qualifiers: Anemia type: due to chronic kidney disease Chronic kidney disease stage: stage 5, not on chronic dialysis Qualified Code(s): N18.5 - Chronic kidney disease, stage 5; D63.1 - Anemia in chronic kidney disease; D63.1 - Anemia in chronic kidney disease (9) Hyperkalemia Priority: Secondary Status: Resolved Hospital course: Ms. Lacy is a 72 year old female admitted for MERNA on CKD with urinary retention. CT of abdomen showed persistent moderate hydronephrosis and hydroureter with mucosal thickening. Potassium was elevated at 6.0. She was admitted to general medical floor. She was started on IV hydration and nephrology was consulted. They changed her naylor catheter. Urology was consulted and did not think she was obstructed. Urine output remained good following change. Creatinine continued to improve back down to her baseline. She was started on rocephin for suspected CAUTI. Urine culture was negative; so rocephin stopped after 5 days. Potassium improved throughout admission with IVF. She had chronic diarrhea that was controlled with cholestyramine. Patient will follow up with PCP in 2-3 days after discharge. She will follow up with feltmaker and weigher Dr. Dennis in 2-4 weeks after discharge. Repeat BMP will be obtained at follow up. Patient has met maximum benefit of this hospitalization and will be discharged home in stable condition. Discharge discussed with: patient, nurse, case management, other (Pharmacist) - Time Spent with Patient Total time spent providing and/or coordinating discharge services: Greater than 30 minutes - Discharge Medications Home Medications: Metoprolol [Lopressor] 12.5 mg PO BID 03/01/16 [History] Insulin Glargine,Hum.rec.anlog [Lantus Solostar] 30 units SQ HS 07/10/17 [ History] Aspirin Enteric Coated [Aspirin EC] 81 mg PO DAILY 08/04/17 [History] Oxygen 2 l NS AD 08/04/17 [History] Gabapentin [Neurontin] 100 mg PO BID 09/17/17 [History] Allergies/Adverse Reactions: 3 Allergy/AdvReac Type Severity Reaction Status Date / Time acetaminophen [From Tylenol] Allergy See Verified 10/09/17 08:54 Comments Influenza Virus Vaccines Allergy See Verified 10/09/17 08:54 Comments Date of admission: 10/09/17 10:39 Primary care physician: Macario Diallo MD Consults: 10/09/17 15:46 Consult to Urology [CONS] Routine Consulting Provider: Urology [facility] Reason for Consult: b/o hydronephrosis / hydroureter Time Notified: 15:46 Call Completed: Yes 10/12/17 07:29 Consult to Shredder/Granulator Operator [CONS] Routine Reason for SW Consult: needs ECF, was at [facility] Discharging clinician: Olayinka Callahan Anticipated date of discharge: 10/13/17 - Constitutional Vitals: Temp Pulse Resp BP Pulse Ox 97.9 F 76 18 133/72 98 10/13/17 16:06 10/13/17 16:06 10/13/17 16:06 10/13/17 16:06 10/13/17 16:06 General appearance: Present: A&O X 3, pleasant, no acute distress, answers questions appropriately - Respiratory Respiratory exam: Present: CTAB. Absent: accessory muscle use, rales, rhonchi, wheezes Additional comments: Normal WOB - Cardiovascular Cardiovascular exam: Present: RRR, +S1, +S2. Absent: diastolic murmur, gallop, rubs, systolic murmur Additional comments: No BLE edema - GI/Abdominal GI/Abdominal exam: Present: normal bowel sounds, soft. Absent: distended, hepatomegaly, mass, splenomegaly, tenderness - Psychiatric Psychiatric exam: Present: normal affect, normal mood. Absent: anxious, depressed - Skin Skin exam: Present: dry, intact, warm. Absent: cyanosis, rash - Patient Status Disposition: Home Health Service Condition: Good Overall status at discharge: patient is progressing back to baseline - Discharge Instructions Follow Up With: Macario Diallo MD [Primary Care Provider] - (web request sent on 10/12/17) Additional Instructions: Follow up with PCP in 2-3 days after discharge. Follow up with feltmaker and weigher Dr. Dennis in 2-4 weeks after discharge. Obtain BMP at follow up. - Diet and Activity Activity: as per physical therapy Diet: advance to your usual diet
--- NOTE | 2017-10-13 17:49 | Physician Discharge Referral ---
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) - Diagnosis (1) MERNA (acute kidney injury) Priority: Primary Status: Resolved (2) Chronic kidney disease, stage IV (severe) Priority: Secondary Status: Chronic (3) Catheter-associated urinary tract infection Priority: Secondary Status: Ruled-out (4) Diarrhea Priority: Secondary Status: Chronic (5) Metabolic acidosis Priority: Secondary Status: Resolved (6) Diabetes mellitus Priority: Secondary Status: Chronic (7) HTN (hypertension) Priority: Secondary Status: Chronic (8) Anemia Priority: Secondary Status: Chronic (9) Hyperkalemia Priority: Secondary Status: Resolved - Respiratory Orders Smoking Cessation: Smoking cessation has been advised. For more information, call the [email or web address] Tobacco Quit Line at 1-212-GBUH-NOW. - Diet/Nutrition Diet/Nutrition Orders: Renal - Activity Activity: List: Per physical therapy - Services Needed Following services are medically necessary services: Nursing, Physical Therapy - Transfer Medications Home Medications: Metoprolol [Lopressor] 12.5 mg PO BID 03/01/16 [History] Insulin Glargine,Hum.rec.anlog [Lantus Solostar] 30 units SQ HS 07/10/17 [ History] Aspirin Enteric Coated [Aspirin EC] 81 mg PO DAILY 08/04/17 [History] Oxygen 2 l NS AD 08/04/17 [History] Gabapentin [Neurontin] 100 mg PO BID 09/17/17 [History] Allergies/Adverse Reactions: 3 Allergy/AdvReac Type Severity Reaction Status Date / Time acetaminophen [From Tylenol] Allergy See Verified 10/09/17 08:54 Comments Influenza Virus Vaccines Allergy See Verified 10/09/17 08:54 Comments Certification: Further, I certify that my clinical findings support that this patient is homebound (i.e. absences from home require considerable and taxing effort and are for medical reasons or baptism services or infrequently or short duration when for other reasons) because: ESRD, generalized debility. Homebound Reason: Patient requires assistance of a person or device to safely leave home, Leaving home requires considerable and taxing effort due to condition Attestation: My signature below is to certify that this patient is under my care and that I, or nurse practitioner, or a physician's surgical assistant certified working with me, has a face-to -face encounter with this patient.
== END 2017-10-13 17:46 | disposition home health service (06) | DRG 683 ==
LOC: 2ANU 07:07 → EMEROO 07:07 → SUATTDRO 10:39 → 2ANU 12:20
PROVIDERS: ADMIT Family Medicine; ATTEND Internal Medicine

== ENCOUNTER 2017-10-27 21:34 | Inpatient (IN) ==
--- NOTE | 2017-10-27 21:46 | Emergency Department Note ---
Disposition Clinical Impression: Generalized weakness Diarrhea Qualifiers: Diarrhea type: unspecified type Qualified Code(s): R19.7 - Diarrhea, unspecified Disposition: Still a Patient Condition: Good Referrals: Macario Diallo MD [Primary Care Provider] - Forms: ED Satisfaction Letter Time of Disposition: 01:33 Nausea/Vomiting/Diarrhea HPI - General Chief complaint: ED Nausea/Vomiting/Diarrhea Stated complaint: diarrea/ not feeling well Time Seen by Provider: 10/27/17 21:45 Mode of arrival: ambulatory Limitations: no limitations Nursing Notes Reviewed: Yes Vital Signs Reviewed: Yes - History of Present Illness HPI Narrative: Patient is a 72-year-old female with past medical history of hypertension, diabetes, high cholesterol. She presents today with complaint of diarrhea. She has had loose, watery, nonbloody stools for the past 2 days. She denies any associated nausea, vomiting, abdominal pain, chest pain, shortness of breath , numbness, tingling, focal weakness. She does state that she has been trying to intake enough fluids to keep up with her diarrhea but feels that she is failing to do so. She feels dehydrated. No recent antibiotics. She has had multiple sick contacts with similar symptoms over the past week. She states that she lives at home with her grandson and 2 relatives, one is a nurse and that she is constantly checked on throughout the day. She states that she is hoping to go home after being treated for her symptoms here in the department. - Related Data Home Medications Medication Instructions Recorded Confirmed Metoprolol [Lopressor] 12.5 mg PO BID 03/01/16 10/09/17 Insulin Glargine,Hum.rec.anlog 30 units SQ HS 07/10/17 10/09/17 [Lantus Solostar] Aspirin Enteric Coated [Aspirin EC] 81 mg PO DAILY 08/04/17 10/09/17 Oxygen 2 l NS AD 08/04/17 10/09/17 Gabapentin [Neurontin] 100 mg PO BID 09/17/17 10/09/17 Allergies Allergy/AdvReac Type Severity Reaction Status Date / Time acetaminophen [From Tylenol] Allergy See Verified 10/27/17 21:42 Comments Influenza Virus Vaccines Allergy See Verified 10/27/17 21:42 Comments All systems ED: reviewed and negative except as stated. Constitutional: Denies: fever Cardiovascular: Denies: chest pain Respiratory: Denies: cough, dyspnea Gastrointestinal: Reports: diarrhea. Denies: abdominal pain, nausea, vomiting, constipation, hematemesis, melena, hematochezia Integumentary: Denies: rash Neurological: Denies: headache, weakness, numbness, paresthesias Endocrine: Reports: fatigue Past Medical History - Past Medical History Attestation: Yes The following information was validated with the patient. Source: patient Medical history: Reports: diabetes, hyperlipidemia, hypertension, renal disease , other Surgical history: Reports: appendectomy, cholecystectomy, hysterectomy Psychiatric history: Reports: no psych history [employer] history: Reports: no [employer] history - Social History Smoking Status: Never smoker Smokeless Tobacco Status: No Alcohol use: Reports: none Drug use: Reports: none Physical Exam - General Limitations: no limitations General appearance: alert, in no apparent distress - Head Head exam: atraumatic, normocephalic, normal inspection - Eye Eye exam: Present: normal appearance, PERRL, EOMI - ENT ENT exam: mucous membranes moist, mucous membranes dry - Neck Neck exam: Present: normal inspection, full ROM, trachea midline - Chest Chest inspection: Present: normal inspection, symmetric chest wall rise - Respiratory Respiratory exam: Present: normal lung sounds bilaterally - Cardiovascular Cardiovascular exam: Present: regular rate, normal rhythm, normal heart sounds - Abdominal Exam Abdominal exam: Present: soft, Non-Tender. Absent: tenderness, distention, guarding, rebound, rigidity - Extremities Exam Extremities exam: Present: normal inspection, full ROM. Absent: tenderness, pedal edema - Neurological Exam Neurological exam: Present: alert, oriented X3 - Psychiatric Psychiatric exam: Present: normal affect, normal mood - Skin Skin exam: Present: warm, dry, intact, normal color. Absent: rash Course Course Narrative: Patient had a systolic blood pressure of 98, the patient is still mentating well , alert and oriented 3, no focal neurologic deficits. The rest of the vitals were within normal limits. Physical exam showed the patient in no acute distress, dry mucous membranes, heart regular rate and rhythm, lungs clear to auscultation, abdomen soft and nontender. Due to generalized weakness, we will obtain BMP. We will also obtain urinalysis. We will give the patient 1 L normal saline bolus and then reassess. 00:30 BMP was hemolyzed. Repeat BMP was drawn as a fingerstick. I called the lab and they noted that the initial potassium was 8.1 and then fingerstick was 8.2. I am currently concerned that both of these could be false due to being hemolyzed. EKG was obtained and showed normal sinus rhythm with no peaked T waves. There was some depression in lead V3 through V6 that was present on old EKG. No acute EKG changes upon comparison to EKG on 10/09/2017. Currently waiting on the venous BMP to be redrawn for confirmation of potassium. Patient will be signed out to Dr. Shankar and Dr. Michaels for further care. If potassium elevated, she will need admission and treatment for hyperkalemia. At this time, BMP and urinalysis are still pending. Patient continues to mentate well at this time. Systolic blood pressure is now in the low 100s. Vital Signs Temperature 97.9 F 10/27/17 21:40 Pulse Rate 94 10/27/17 21:40 Respiratory Rate 16 10/27/17 21:40 Blood Pressure 98/61 10/27/17 21:40 O2 Sat by Pulse Oximetry 100 10/27/17 21:40 Temperature 97.9 F 10/27/17 21:40 Pulse Rate 94 10/27/17 21:40 Respiratory Rate 16 10/27/17 21:40 Blood Pressure 98/61 10/27/17 21:40 O2 Sat by Pulse Oximetry 100 10/27/17 21:40 Oxygen Delivery Oxygen Delivery Room Air Nausea/Vomiting/Diarrhea - [facility] Narrative Medical decision making narrative: Patient had a systolic blood pressure of 98, the patient is still mentating well , alert and oriented 3, no focal neurologic deficits. The rest of the vitals were within normal limits. Physical exam showed the patient in no acute distress, dry mucous membranes, heart regular rate and rhythm, lungs clear to auscultation, abdomen soft and nontender. Due to generalized weakness, we will obtain BMP. We will also obtain urinalysis. We will give the patient 1 L normal saline bolus and then reassess. 00:30 BMP was hemolyzed. Repeat BMP was drawn as a fingerstick. I called the lab and they noted that the initial potassium was 8.1 and then fingerstick was 8.2. I am currently concerned that both of these could be false due to being hemolyzed. EKG was obtained and showed normal sinus rhythm with no peaked T waves. There was some depression in lead V3 through V6 that was present on old EKG. No acute EKG changes upon comparison to EKG on 10/09/2017. Currently waiting on the venous BMP to be redrawn for confirmation of potassium. Patient will be signed out to Dr. Shankar and Dr. Michaels for further care. If potassium elevated, she will need admission and treatment for hyperkalemia. At this time, BMP and urinalysis are still pending. Patient continues to mentate well at this time. Systolic blood pressure is now in the low 100s. - Medical Records Medical records reviewed: Yes I reviewed the patient's medical records. - Lab Data Lab results reviewed: Yes I reviewed the patient's lab results. Lab Results 10/27/17 Range/Units 23:09 Specimen Rejected Hemolyzed - EKG Data EKG attestation: Yes I reviewed and interpreted this EKG. EKG results narrative: 10/28/2017 at 00:30. Normal sinus rhythm. Rate 88. [place] within normal limits. QRS 112. QTC 411. Mild left axis deviation. ST depression in V3 through V6, this is unchanged from previous EKG on 10/09/2017. No acute ST elevation. S.B.A.R. - S.B.A.R. Situation: Demographics, MOA Background: Presenting Complaint, Relevant PMH, Meds, & Allergies Assessment: Vital Signs, Course and respsone to treatment, Exam Concerns, Patient/Family Expectation, Pertinant Lab Results, Outstanding Labs Recommendation: Barrier(s) to disposition, Recommendation based on pending studies, treatments, or consults S.B.A.R. Report Given to: Dr. Michaels, Dr. Shankar S.B.A.R. Repor Time: 01:34 Attestation Statement - Attestation Attestation: I examined this patient and my medical decision-making was reviewed with the Resident Physician. I agree with the documented findings, disposition and treatment plan as described except to the extent set forth below. Well-appearing, conversant, interacts normally. Non-toxic appearing. MM somewhat pasty. VS normal. No abdominal pain, non-tender on exam. Agree with Dr. Faustin's plan.
[2017-10-27] MEDS ORDERED: 0.9 % Sodium Chloride 1,000 ML IVC ONE (22:37)
[2017-10-28 01:48] LABS: Calcium 8.8 mg/dL (8.6-10.3); Potassium 6.8 mEq/L (3.5-5.1)
[2017-10-28] MEDS ORDERED: Albuterol 2.5 MG/3 ML NEBULIZER IH ONE (01:50)
[2017-10-28] MEDS ORDERED: 0.9 % Sodium Chloride 1,000 ML IVC ONE (01:50)
[2017-10-28] MEDS ORDERED: Insulin Human Regular 10 UNIT in 0.9 % Sodium Chloride 10 ML IV ONE ×2 (01:51→03:49)
[2017-10-28] MEDS ORDERED: *HR* Dextrose 50 % in Water (Syg) 50 ML SYRINGE IVP ONE ×2 (01:51→03:49)
[2017-10-28] MEDS ORDERED: Calcium Gluconate 2,000 MG in 0.9 % Sodium Chloride 100 ML IVPB ONE (01:54)
--- NOTE | 2017-10-28 02:03 | Emergency Department Note ---
Disposition Clinical Impression: Generalized weakness, Hyperkalemia Diarrhea Qualifiers: Diarrhea type: unspecified type Qualified Code(s): R19.7 - Diarrhea, unspecified Acute renal failure Qualifiers: Acute renal failure type: unspecified Qualified Code(s): N17.9 - Acute kidney failure, unspecified Disposition: Admitted As Inpatient Condition: Critical Referrals: Macario Diallo MD [Primary Care Provider] - Forms: ED Satisfaction Letter Time of Disposition: 02:22 Nausea/Vomiting/Diarrhea HPI - General Chief complaint: ED Nausea/Vomiting/Diarrhea Stated complaint: diarrea/ not feeling well Time Seen by Provider: 10/27/17 21:45 Source: patient Mode of arrival: ambulatory Limitations: no limitations Nursing Notes Reviewed: Yes Vital Signs Reviewed: Yes - History of Present Illness HPI Narrative: 72-year-old female with history of chronic kidney disease arrives to the emergency department with complaint of diarrhea over the course of the past 2 days. The patient states that she feels dehydrated and has been not doing well due to the amount of diarrhea. The patient denies any abdominal pain, fevers, chills, nausea, vomiting. The patient denies any recent antibiotic use. The patient states she is worried she is dehydrated. The patient was a signout from the previous care team. There was concern about and it initial BMP laboratory drawn that demonstrated an elevated potassium but on redraw was 6.8 without any hemolysis. The patient appears to be in acute renal failure as well. The patient has a history of acute renal failure in the past this appears to be acute on chronic kidney injury. We will begin the patient on medications to lower her potassium as well as stabilized the cardiac membranes. The patient will have IV fluids and we will consult with nephrology at this time. Patient agrees to plan of care. No further questions or concerns noted at this time. - Related Data Home Medications Medication Instructions Recorded Confirmed Metoprolol [Lopressor] 12.5 mg PO BID 03/01/16 10/09/17 Insulin Glargine,Hum.rec.anlog 30 units SQ HS 07/10/17 10/09/17 [Lantus Solostar] Aspirin Enteric Coated [Aspirin EC] 81 mg PO DAILY 08/04/17 10/09/17 Oxygen 2 l NS AD 08/04/17 10/09/17 Gabapentin [Neurontin] 100 mg PO BID 09/17/17 10/09/17 Allergies Allergy/AdvReac Type Severity Reaction Status Date / Time acetaminophen [From Tylenol] Allergy See Verified 10/27/17 21:42 Comments Influenza Virus Vaccines Allergy See Verified 10/27/17 21:42 Comments All systems ED: reviewed and negative except as stated. Constitutional: Denies: fever Cardiovascular: Denies: chest pain Respiratory: Denies: cough, dyspnea Gastrointestinal: Reports: diarrhea. Denies: abdominal pain, nausea, vomiting, constipation, hematemesis, melena, hematochezia Integumentary: Denies: rash Neurological: Denies: headache, weakness, numbness, paresthesias Endocrine: Reports: fatigue Past Medical History - Past Medical History Attestation: Yes The following information was validated with the patient. Source: patient, old records reviewed Medical history: Reports: diabetes, hyperlipidemia, hypertension, renal disease , other Surgical history: Reports: appendectomy, cholecystectomy, hysterectomy Psychiatric history: Reports: no psych history WEIGHT CLERK history: Reports: no WEIGHT CLERK history - Social History Smoking Status: Never smoker Smokeless Tobacco Status: No Alcohol use: Reports: none Drug use: Reports: none Physical Exam - General Limitations: no limitations General appearance: alert, in no apparent distress - Head Head exam: atraumatic, normocephalic, normal inspection - Eye Eye exam: Present: normal appearance, PERRL, EOMI - ENT ENT exam: normal exam, normal oropharynx, mucous membranes moist - Neck Neck exam: Present: normal inspection, full ROM, trachea midline - Chest Chest inspection: Present: normal inspection, symmetric chest wall rise - Respiratory Respiratory exam: Present: normal lung sounds bilaterally - Cardiovascular Cardiovascular exam: Present: regular rate, normal rhythm, normal heart sounds - Abdominal Exam Abdominal exam: Present: soft, Non-Tender. Absent: tenderness, distention, guarding, rebound, rigidity - Extremities Exam Extremities exam: Present: normal inspection, full ROM. Absent: tenderness, pedal edema - Neurological Exam Neurological exam: Present: alert, oriented X3 - Skin Skin exam: Present: warm Course - Consultations Consultation #1: We spoke with Dr. Jacob in nephrology who stated that the patient should have a repeat potassium within the next 4 hours and to call him if it is continuing to increase. Time: 02:11 Vital Signs Temperature 97.9 F 10/27/17 21:40 Pulse Rate 94 10/27/17 21:40 Respiratory Rate 16 10/27/17 21:40 Blood Pressure 98/61 10/27/17 21:40 O2 Sat by Pulse Oximetry 100 10/27/17 21:40 Temperature 97.9 F 10/27/17 21:40 Pulse Rate 94 10/27/17 21:40 Respiratory Rate 16 10/28/17 02:08 Blood Pressure 142/88 10/28/17 02:08 O2 Sat by Pulse Oximetry 95 10/28/17 02:08 Oxygen Delivery Oxygen Delivery Room Air Nausea/Vomiting/Diarrhea - MDM Narrative Medical decision making narrative: Patient's workup in the emergency department demonstrates an elevated creatinine with an elevated potassium. The patient was administered calcium as well as albuterol, insulin, sodium bicarbonate and Kayexalate here in the emergency department. This is likely all prerenal given the patient's elevated BUNs as well as her dehydration. The patient will be admitted to the hospital. The patient in addition will likely be admitted to the ICU given the patient' s acute renal failure and elevated potassium. Patient was made aware and agrees to plan of care. No further questions or concerns noted at this time. Dr. Jacob in nephrology was consulted on the patient. Official consult was been placed. He requested repeat potassium within the next 4 hours and to call if he continues to elevate. Further questions or concerns noted at this time I patient. Patient agrees to plan of care. We will admit the patient at this time. Accepted by Dr. Oliveros. - Medical Records Medical records reviewed: Yes I reviewed the patient's medical records. - Lab Data Lab results reviewed: Yes I reviewed the patient's lab results. Result diagrams: 10/28/17 00:55 Lab Results 10/27/17 10/28/17 Range/Units 23:09 00:55 Sodium 126 L (136-145) mEq/L Potassium 6.8 H* (3.5-5.1) mEq/L Chloride 102 (98-107) mEq/L Carbon Dioxide 17 L (23-29) mEq/L BUN 90 H (8-23) mg/dL Creatinine 5.30 H (0.60-1.20) mg/dL Est GFR ( Amer) 10 L (> 60) Est GFR (Non-Af Amer) 8 L (> 60) BUN/Creatinine Ratio 17 (6-26) Glucose 207 H (70-105) mg/dL Calculated Osmolality 296 (280-300) Calcium 8.8 (8.6-10.3) mg/dL Specimen Rejected Hemolyzed
[2017-10-28 02:33] LABS: Bilirubin,Urine Negative (Negative); Blood,Urine Moderate (Negative); Clarity,Urine Turbid (Clear); Color,Urine Yellow (Yellow); Glucose,Urine (UA) Normal (Normal); Ketones,Urine Negative (Negative); Leukocyte Esterase,Urine Large (Negative); Nitrite,Urine Negative (Negative); Protein,Urine 100 mg/dL (Neg-Trace); Specific Gravity,Urine 1.015 (1.010-1.025); Urobilinogen,Urine Normal (Normal)
[2017-10-28] MEDS: Sodium Bicarbonate 50 MEQ/50 ML VIAL IVP ONE ×2 (02:33→02:34)
[2017-10-28 02:45] LABS: Bacteria,Urine Few per hpf (None-Few); WBC,Urine TNTC per hpf (0-3)
--- NOTE | 2017-10-28 02:58 | Internal Med History&Physical ---
Date of Encounter: 10/28/17 Time of Encounter: 02:54 Assessment and Plan (1) Hyperkalemia Current visit: Yes Status: Acute potassium 6.8 - prior history of hyperkalemia requiring admission no acute ECG changes compared to prior, no peak T waves, QRS 112 likely secondary to MERNA and dehydration from diarrhea causing metabolic acidosis from loss of bicarbonate will start patient on 1/2 NS and 75 mEq sodium bicarbonate drip nephrology Dr. Jacob was consulted in the ED - will call if potassium is refractory to medical treatment - given continuous Albuterol, Calcium Gluconate, D50, Insulin, and Kayexalate in the emergency department - no indication for hemodialysis at this time patient has history hyperkalemia requiring dialysis continue to monitor continue cardiac monitoring (2) Metabolic acidosis Current visit: Yes Status: Acute non-anion gap metabolic acidosis, AG 7 secondary to diarrhea bicarb gtt (3) Acute worsening of stage 4 chronic kidney disease Current visit: Yes Status: Acute SCr 5.3 her baseline appears to be near 2.5 this is likely a pre-renal picture secondary to dehydration/diarrhea fluid hydration history of hemodialysis hold nephrotoxic drugs patient has history of urinary retention - will place naylor catheter for strict I/Os urinalysis not consistent with infection, findings of proteinuria recent renal ultrasound 08/05/2017 with bilateral moderate hydronephrosis and renal cysts (4) Diarrhea Current visit: Yes Status: Acute recent episode described as acute over past 48 hours - review of medical records, history of chronic diarrhea described as watery and profuse, grandson reports 4-5 BMs/hour recent admission 10/09/17 with similar presentation - C. diff negative on 09/17/17, history of positive C. diff 07/03/16 - will check C. 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 insulin use: with senior living use Diabetes mellitus complication status: with unspecified complications Qualified Code(s): E11.8 - Type 2 diabetes mellitus with unspecified complications; Z79.4 - termite technician (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; Z79.4 - termite technician (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; Z79.4 - MCC (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; Z79.4 - MCC (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 (7) HTN (hypertension) Current visit: Yes Status: Chronic history of hypertension continue home medication Qualifiers: Hypertension type: essential hypertension Qualified Code(s): I10 - Essential (primary) hypertension (8) Diabetic ulcer of left foot Current visit: Yes Status: Chronic chronic tended to be home health nurses no active signs of infection Qualifiers: Diabetic foot ulcer location: midfoot Diabetes mellitus type: other specified (including RUPAL) Non-pressure ulcer stage: limited to breakdown of skin Qualified Code(s): E13.621 - Other specified diabetes mellitus with foot ulcer; L97.421 - Non-pressure chronic ulcer of left heel and midfoot limited to breakdown of skin; L97.421 - Non-pressure chronic ulcer of left heel and midfoot limited to breakdown of skin; L97.421 - Non-pressure chronic ulcer of left heel and midfoot limited to breakdown of skin; L97.421 - Non-pressure chronic ulcer of left heel and midfoot limited to breakdown of skin (9) DVT prophylaxis Current visit: Yes Status: Acute Heparin Internal Medicine - H&P: HPI Chief complaint: hyperkalemia, acute kidney injury Admitted From: Home Plans for Post Hospital Care: Home History of present illness: Ms. Lacy is a 72 year old female with history of chronic kidney disease, hypertension, diabetes who is admitted to the intensive care unit at [facility] for hyperkalemia and acute kidney injury. Patient presented to the emergency department with her grandson for persistent diarrhea. Patient has a history of chronic diarrhea but over the past 24-48 hrs. She has had estimated 4 to 5 watery nonbloody bowel movements per hour. Patient has no associated about pain, nausea or vomiting. Patient has a similar episode 2 weeks ago that required admission. She is not use any antibiotics recently. She admits to some weakness which she contributes to dehydration. She denies any fever, recent illness, chest pain or shortness of breath. Denies any recent travel. Patient also limits to prior admission earlier this calendar year requiring hemodialysis for similar issues. In the emergency department her initial basic metabolic panel was thought to be hemolyzed as the result was a potassium of 8. Her most recent potassium 6.8 without hemolysis. Her creatinine is elevated 5.3. EKG does not reveal any acute changes such as PT waves or prolonged QRS. Patient was given calcium to stabilize her cardiac membrane. She was also given a dose of dextrose, insulin , continuous albuterol nebulizer, kayelexate. Dr. Jacob, nephrologists, is consulted in the emergency department and was advised to repeat the potassium if worse to call for further orders. Patients otherwise awake alert and oriented to person place and time. She appears in no acute distress. Her mucus membranes are dry. She is in stable condition. Past Med Surg Social Fam HX - Past Medical History Medical history: diabetes, hyperlipidemia, hypertension, renal disease, other Psychiatric history: no psych history - Past Surgical History Surgical History: appendectomy, cholecystectomy, hysterectomy - Social History Smoking Status: Never smoker Smokeless Tobacco Status: No Alcohol use: none Drug use: none - Family History Mother Living Status: Hx Family Cardiac Disorders: Yes Father Living Status: Hx Family Cardiac Disorders: Yes Internal Medicine - H&P: Meds Metoprolol [Lopressor] 12.5 mg PO BID 03/01/16 [History] Insulin Glargine,Hum.rec.anlog [Lantus Solostar] 30 units SQ HS 07/10/17 [ History] Aspirin Enteric Coated [Aspirin EC] 81 mg PO DAILY 08/04/17 [History] Oxygen 2 l NS AD 08/04/17 [History] Gabapentin [Neurontin] 100 mg PO BID 09/17/17 [History] 3 Allergy/AdvReac Type Severity Reaction Status Date / Time acetaminophen [From Tylenol] Allergy See Verified 10/27/17 21:42 Comments Influenza Virus Vaccines Allergy See Verified 10/27/17 21:42 Comments All Systems PM: A 10-system review of systems was performed and is negative for pertinent findings except as documented above in the HPI. - Constitutional Constitutional: fatigue - Cardiovascular Cardiovascular ROS IM: no chest pain, no dyspnea - Respiratory Respiratory: no cough, no dyspnea - Gastrointestinal Gastrointestinal: diarrhea, loose stools, no abdominal pain, no hematemesis, no hematochezia, no melena, no nausea, no vomiting - Constitutional Vitals: Temp Pulse Resp BP Pulse Ox 97.9 F 94 16 142/88 95 10/27/17 21:40 10/27/17 21:40 10/28/17 02:08 10/28/17 02:08 10/28/17 02:08 General appearance: Present: A&O X 3, pleasant, no acute distress, answers questions appropriately - Head Head exam: Present: atraumatic, normal inspection, normocephalic - Eye Eye exam: Present: EOMI, normal appearance, conjuntiva pink. Absent: scleral icterus - ENT ENT exam: Present: mucous membranes dry - Neck Neck exam general surgery: Present: full ROM, normal inspection, supple, trachea midline - Respiratory Respiratory exam: Present: CTAB. Absent: respiratory distress, stridor, wheezes - Cardiovascular Cardiovascular exam: Present: RRR, +S1, +S2. Absent: diastolic murmur, JVD, systolic murmur - GI/Abdominal GI/Abdominal exam: Present: normal bowel sounds, soft, no peritoneal signs. Absent: distended, firm, guarding, pulsatile mass, rebound, rigid, tenderness - Extremities Exam Extremities exam: Present: full ROM, warm, radial pulses palpable and symmetrical. Absent: calf tenderness, pedal edema - Expanded Lower Extremities Exam Neuro vascular tendon exam: Present: sensory deficit. Absent: motor deficit Gait: Present: not tested/not observed - Back Exam Back exam: Absent: tenderness, vertebral tenderness - Neurological Exam Neurological exam: Present: alert, oriented X3, no focal deficits, strengths equal and symetr throughout. Absent: pronater drift, facial droop, speech deficit - Psychiatric Psychiatric exam: Present: normal affect, normal mood - Skin Skin exam: Present: dry, erythema (sacrum, stage 1), normal color, warm. Absent : abrasion, diaphoretic, rash Additional comments: ulceration to plantar suface of left foot, no surrounding erythema or fluctuance - Expanded Skin Exam Distribution of rash: Present: LLE Description of rash: Present: size (1 cm) Internal Med - H&P Results - Labs CBC & Chem 7: 10/28/17 00:55
--- NOTE | 2017-10-28 03:19 | Emergency Department Note ---
Disposition Clinical Impression: Generalized weakness, Hyperkalemia Diarrhea Qualifiers: Diarrhea type: unspecified type Qualified Code(s): R19.7 - Diarrhea, unspecified Acute renal failure Qualifiers: Acute renal failure type: unspecified Qualified Code(s): N17.9 - Acute kidney failure, unspecified Disposition: Admitted As Inpatient Condition: Critical General Adult HPI - General Chief complaint: ED Nausea/Vomiting/Diarrhea Stated complaint: diarrea/ not feeling well Time Seen by Provider: 10/27/17 21:45 Source: patient Mode of arrival: ambulatory Limitations: no limitations - History of Present Illness Pain Scale: 8 - Related Data Home Medications Medication Instructions Recorded Confirmed Metoprolol [Lopressor] 12.5 mg PO BID 03/01/16 10/09/17 Insulin Glargine,Hum.rec.anlog 30 units SQ HS 07/10/17 10/09/17 [Lantus Solostar] Aspirin Enteric Coated [Aspirin EC] 81 mg PO DAILY 08/04/17 10/09/17 Oxygen 2 l NS AD 08/04/17 10/09/17 Gabapentin [Neurontin] 100 mg PO BID 09/17/17 10/09/17 Allergies Allergy/AdvReac Type Severity Reaction Status Date / Time acetaminophen [From Tylenol] Allergy See Verified 10/27/17 21:42 Comments Influenza Virus Vaccines Allergy See Verified 10/27/17 21:42 Comments Constitutional: Denies: fever Cardiovascular: Denies: chest pain Respiratory: Denies: cough, dyspnea Gastrointestinal: Reports: diarrhea. Denies: abdominal pain, nausea, vomiting, constipation, hematemesis, melena, hematochezia Integumentary: Denies: rash Neurological: Denies: headache, weakness, numbness, paresthesias Endocrine: Reports: fatigue Past Medical History - Past Medical History Medical history: Reports: diabetes, hyperlipidemia, hypertension, renal disease , other Surgical history: Reports: appendectomy, cholecystectomy, hysterectomy Psychiatric history: Reports: no psych history CLEANER AND POLISHER history: Reports: no CLEANER AND POLISHER history - Social History Smoking Status: Never smoker Smokeless Tobacco Status: No Alcohol use: Reports: none Drug use: Reports: none Physical Exam - General Limitations: no limitations General appearance: alert, in no apparent distress Course Vital Signs Temperature 97.9 F 10/27/17 21:40 Pulse Rate 94 10/27/17 21:40 Respiratory Rate 16 10/27/17 21:40 Blood Pressure 98/61 10/27/17 21:40 O2 Sat by Pulse Oximetry 100 10/27/17 21:40 Temperature 97.9 F 10/27/17 21:40 Pulse Rate 94 10/27/17 21:40 Respiratory Rate 16 10/28/17 02:08 Blood Pressure 142/88 10/28/17 02:08 O2 Sat by Pulse Oximetry 95 10/28/17 02:08 Oxygen Delivery Oxygen Delivery Room Air Medical Decision Making - Lab Data Result diagrams: 10/28/17 00:55 Lab Results 10/27/17 10/28/17 10/28/17 Range/Units 23:09 00:55 02:15 Sodium 126 L (136-145) mEq/L Potassium 6.8 H* (3.5-5.1) mEq/L Chloride 102 (98-107) mEq/L Carbon Dioxide 17 L (23-29) mEq/L BUN 90 H (8-23) mg/dL Creatinine 5.30 H (0.60-1.20) mg/dL Est GFR ( Amer) 10 L (> 60) Est GFR (Non-Af Amer) 8 L (> 60) BUN/Creatinine Ratio 17 (6-26) Glucose 207 H (70-105) mg/dL Calculated Osmolality 296 (280-300) Calcium 8.8 (8.6-10.3) mg/dL Urine Color Yellow (Yellow) Urine Clarity Turbid A (Clear) Urine pH 6.0 (5.0-8.0) pH Units Ur Specific [place] 1.015 (1.010-1.025) Urine Protein 100 H (Neg-Trace) mg/dL Urine Glucose (UA) Normal (Normal) mg/dL Urine Ketones Negative (Negative) mg/dL Urine Blood Moderate H (Negative) Urine Nitrite Negative (Negative) Urine Bilirubin Negative (Negative) Urine Urobilinogen Normal (Normal) mg/dL Ur Leukocyte Esterase Large H (Negative) Urine Microscopic RBC 5-15 H (0-3) per hpf Urine Microscopic WBC TNTC H (0-3) per hpf Urine Bacteria Few (None-Few) per hpf Ur Culture Indicated? YES A (NO) Specimen Rejected Hemolyzed Critical Care Time Critical Care Time: Yes Total Critical Care Time: 45 Attestation: Critical care performed: Time is exclusive of separately billable procedures. Time includes: direct patient care, patient reassessment, coordination of patient care, interpretation of data (laboratory data, radiology data, and respiratory data), review of patient's medical records, medical consultation and documentation of patient care. Procedures included in critical care time: Procedures excluded from critical care time: Attestation Statement - Attestation Attestation: I, Charles Michaels MD, personally evaluated this patient and discussed their management with the resident physician. I reviewed the resident's note and agree with the documented findings, medical decision making, and plan of care. This patient was signed out at shift change from Dr. Faustin and Dr. Wilde. Please refer to their notes for complete details of history and physical examination. Patient presented with a one-day history of diarrhea. Lab work revealed an elevated potassium of 8.1. This is being repeated and at shift change patient is awaiting repeat labs. On examination patient is a well-developed well-nourished elderly female in no acute distress. She is alert and oriented 3. There is no cyanosis or diaphoresis. Breath sounds are clear and equal bilaterally. Heart regular rate and rhythm. Abdomen is soft and nontender with slightly increased bowel sounds. No guarding or rebound tenderness. No tympany or distention. Repeat potassium was 6.8. Patient has acute kidney injury with a creatinine greater than 5. Potassium was treated with albuterol nebulizers, IV calcium, IV insulin, D50, and Kayexalate. Also bicarbonate infusion. The hospitalist, Dr. Oliveros, was consulted and accepted admission of the patient.
[2017-10-28] MEDS ORDERED: D5% in Water 1,000 ML IVC PRN (03:45)
[2017-10-28] MEDS ORDERED: *HR* Dextrose 50 % in Water (Syg) 50 ML SYRINGE IVP PRN (03:45)
[2017-10-28] MEDS ORDERED: Dextrose Gel 15 GM PO PRN ×2 (03:45)
[2017-10-28] MEDS ORDERED: Naloxone 0.4 MG/ML INJ IVP PRN (03:45)
[2017-10-28] MEDS: Sodium Bicarbonate 75 MEQ in 0.45 % Sodium Chloride 1,000 ML IVC SCH ×2 (04:58→17:02)
[2017-10-28] MEDS: *HR* Heparin 5,000 UNIT/ML VIAL SQ SCH ×2 (05:30→17:18)
[2017-10-28 06:26] LABS: Basophils % 0.3 %; Eosinophils # 0.2 K/mcL (0.0-0.6); Eosinophils % 1.3 %; Hematocrit 27.9 % (35.3-44.9); Hemoglobin 8.9 g/dL (11.5-15.4); Immature Granulocytes % 0.6 % (0-4); Lymphocytes # 1.7 K/mcL (0.6-4.6); Lymphocytes % 15.2 %; Mean Corpuscular HGB Conc 31.9 g/dL (31.6-35.5); Mean Corpuscular Hemoglobin 27.4 pg (28.0-33.3); Mean Corpuscular Volume 85.8 fL (83.0-100.0); Mean Platelet Volume 9.1 fL (9.4-12.4); Monocytes # 1.3 K/mcL (0.0-1.3); Monocytes % 11.4 %; Neutrophils # 8.1 K/mcL (1.6-8.9); Platelet Count 298 K/mcL (140-400); Red Blood Count 3.25 M/mcL (3.82-4.97); Red Cell Distribution Width 13.8 % (11.5-14.5); Segmented Neutrophils % 71.2 %
[2017-10-28] MEDS: Gabapentin 100 MG CAPSULE PO SCH (08:25)
[2017-10-28] MEDS: Aspirin Enteric Coated 81 MG Tablet PO SCH (08:25)
--- NOTE | 2017-10-28 10:47 | Nephrology Consult Note ---
Date of Encounter: 10/28/17 Time of Encounter: 10:45 Assessment and Plan (1) Acute kidney injury superimposed on chronic kidney disease Current Visit: Yes Status: Acute Patient with acute kidney injury superimposed on chronic kidney disease. Etiology appears to be dehydration secondary to diarrhea. At the time my evaluation she states her diarrhea has resolved. She does not need dialysis. She does not need a renal biopsy. I recommend continuing with intravenous hydration. Avoid nephrotoxins and titrate medications for renal function. History of Present Illness - Reason for Consult Consult date: 10/28/17 Acute Kidney Injury, Chronic Kidney Disease - Chief Complaint MERNA on CKD - History of Present Illness Ms. Lacy is a 72 yo woman with a history of CKD who presents with a history of significant diahrrhea and was found to have MERNA. Nephrology was consulted to evaluate MERNA on CKD. At the time of my evaluation she was feeling better and states her diarrhea has improved. Past Med Surg Social Fam HX - Past Medical History Medical history: diabetes, hyperlipidemia, hypertension, renal disease, other Psychiatric history: no psych history - Past Surgical History Surgical History: appendectomy, cholecystectomy, hysterectomy - Social History Smoking Status: Never smoker Smokeless Tobacco Status: No Alcohol use: none Drug use: none - Family History Mother Living Status: Hx Family Cardiac Disorders: Yes Father Living Status: Hx Family Cardiac Disorders: Yes Medications and Allergies Metoprolol [Lopressor] 12.5 mg PO BID 03/01/16 [History] Insulin Glargine,Hum.rec.anlog [Lantus Solostar] 30 units SQ HS 07/10/17 [ History] Aspirin Enteric Coated [Aspirin EC] 81 mg PO DAILY 08/04/17 [History] Oxygen 2 l NS AD 08/04/17 [History] Gabapentin [Neurontin] 100 mg PO BID 09/17/17 [History] Ferrous Sulfate [Ferrous Sulfate] 325 mg PO BID 10/28/17 [History] Ondansetron HCl [Zofran] 4 mg PO TID PRN 10/28/17 [History] Pravastatin Sodium [Pravachol] 10 mg PO HS 10/28/17 [History] 3 Allergy/AdvReac Type Severity Reaction Status Date / Time acetaminophen [From Tylenol] Allergy See Verified 10/27/17 21:42 Comments Influenza Virus Vaccines Allergy See Verified 10/27/17 21:42 Comments Review of Systems All Systems: reviewed and no additional remarkable complaints except as stated ( As per history of present illness) Exam - Vital Signs Vital signs: Initial Vital Signs Temp Pulse Resp BP Pulse Ox 97.9 F 94 16 98/61 100 10/27/17 21:40 10/27/17 21:40 10/27/17 21:40 10/27/17 21:40 10/27/17 21:40 Vital Signs - Last 8 Hours Temp Pulse Resp BP Pulse Ox 10/28/17 10:00 84 20 100/91 100 10/28/17 09:00 82 22 114/82 10/28/17 08:00 85 20 117/57 100 10/28/17 07:26 90 10/28/17 07:00 98.4 F 92 20 95/57 100 10/28/17 06:00 93 22 126/58 99 10/28/17 05:00 105 18 92/60 99 10/28/17 04:27 108 10/28/17 04:07 17 115/55 10/28/17 04:00 97.7 F 108 18 118/82 90 Intake and Output 10/27/17 10/28/17 10/28/17 23:59 07:59 15:59 Intake Total 130.1 / 130.1 Output Total 400 / 400 Balance -269.9 / -269.9 Intake: IV Fluids 130.1 / 130.1 HumuLIN R 10 UNIT In Normal 10.1 / 10.1 Saline Flush 10 ML @ 1212 mls/ hr IV ONCE ONE Rx#:[id number] Calcium Gluconate 2,000 MG In 0 120 / 120 .9 % Sodium Chloride 100 ML @ 220 mls/hr IVPB ONCE ONE Rx#: [id number] Output: Catheter 400 / 400 Other: Weight 51.2 kg Blood Glucose* 315 Patient Weight 10/28/17 23:59 Weight 51.2 kg - General Appearance General appearance: well-developed, well-nourished EENT: ATNC Neck: supple Respiratory: course breath sounds Cardiology: no edema, regular rate, regular rhythm Gastrointestinal: normoactive bowel sounds, no tenderness, no guarding Integumentary: warm and dry Neurologic: alert and oriented x3 Musculoskeletal: no cyanosis Psychiatric: mood/affect appropriate Results - Lab Results 10/29/17 03:50 10/29/17 12:43 Most recent lab results Calcium 8.8 mg/dL (8.6-10.3) 10/28/17 00:55 Consult Discharge Plan - Plan Referrals: Macario Diallo MD [Primary Care Provider] -
[2017-10-28 11:04] LABS: Calcium 8.5 mg/dL (8.6-10.3); Potassium 5.5 mEq/L (3.5-5.1)
[2017-10-28] MEDS ORDERED: Albuterol 2.5 MG/3 ML NEBULIZER IH STA (12:40)
[2017-10-28] MEDS ORDERED: *HR* Dextrose 50 % in Water (Syg) 50 ML SYRINGE IVP STA (12:41)
[2017-10-28] MEDS ORDERED: Insulin Human Regular 10 UNIT in 0.9 % Sodium Chloride 10 ML IV STA (12:41)
--- NOTE | 2017-10-28 18:14 | Electrocardiograph Report ---
[address] [place], [place] [address] Test Date: 2017-10-28 Pat Name: Lisa Lacy Department: [id number] Room: 09 Gender: F Exhibit Artist: TT : 1945 Requested By: Ta Shankar Order Number: [id number] Reading MD: Haleigh Caba Measurements Intervals [place] Rate: 88 P: [place]: 0 QRS: -20 QRSD: 112 T: 135 QT: 365 QTc: 411 Interpretive Statements SINUS RHYTHM FIRST DEGREE AVB INTRAVENTRICULAR CONDUCTION DELAY [110+ ms QRS DURATION] ST DEVIATION AND MODERATE T-WAVE ABNORMALITY, CONSIDER LATERAL ISCHEMIA [-0.1+ mV T WAVE IN I/aVL/V5/V6] Electronically Signed On 10-28-2017 18:12:45 EDT by Haleigh Caba
--- NOTE | 2017-10-28 19:55 | Event Note ---
Date of Encounter: 10/28/17 Time of Encounter: 09:37 S: Patient had no acute events after admission. She states that she is feeling better today. She wants some pop to drink. She states that diarrhea is resolved; nursing staff confirms this, so will discontinue C. diff test. She denies chest pain, SOB, palpitations, fever, or chills. She has no new complaints. O: Vitals - Temp 98.4 degrees F., HR 82, RR 22, BP 114/82, O2 sat 100 % on 2L NC Gen - Awake, alert, no acute distress HEENT - NCAT, PERRLA, EOMI, hearing grossly intact, oropharynx benign Resp - Normal WOB, CTAB, no W/R/R CV - RRR, normal S1 and S2, no M/R/G, no BLE edema GI - Soft, NT/ND, no masses, normal bowel sounds, no HSP Skin - Warm, dry, no rashes/lesions/ulcers Psych - Normal mood and affect, no depression or anxiety A/P: 1) Hyperkalemia - Improved down to 4.7 this AM. Continue K checks. Recheck BMP in AM. 2) Metabolic Acidosis - Improved. Diarrhea improved. Continue IVF with bicarb. Recheck BMP in AM. 3) Acute on CKD - Nephrology consulted; appreciate input. Will follow their recommendations. 4) Diarrhea - Resolved.
[2017-10-29] MEDS: Sodium Bicarbonate 75 MEQ in 0.45 % Sodium Chloride 1,000 ML IVC SCH (03:42)
[2017-10-29 04:04] LABS: Basophils % 0.3 %; Eosinophils # 0.2 K/mcL (0.0-0.6); Eosinophils % 2.9 %; Hematocrit 24.9 % (35.3-44.9); Hemoglobin 8.1 g/dL (11.5-15.4); Immature Granulocytes % 0.5 % (0-4); Lymphocytes # 1.3 K/mcL (0.6-4.6); Lymphocytes % 22.1 %; Mean Corpuscular HGB Conc 32.5 g/dL (31.6-35.5); Mean Corpuscular Hemoglobin 27.5 pg (28.0-33.3); Mean Corpuscular Volume 84.4 fL (83.0-100.0); Monocytes # 0.5 K/mcL (0.0-1.3); Monocytes % 8.1 %; Neutrophils # 3.8 K/mcL (1.6-8.9); Platelet Count 244 K/mcL (140-400); Red Blood Count 2.95 M/mcL (3.82-4.97); Red Cell Distribution Width 14.1 % (11.5-14.5); Segmented Neutrophils % 66.1 %
[2017-10-29 04:26] LABS: Calcium 7.8 mg/dL (8.6-10.3); Potassium 5.4 mEq/L (3.5-5.1)
[2017-10-29] MEDS: *HR* Heparin 5,000 UNIT/ML VIAL SQ SCH ×2 (04:58→18:21)
[2017-10-29] MEDS: Aspirin Enteric Coated 81 MG Tablet PO SCH (08:41)
[2017-10-29] MEDS ORDERED: *HR* Dextrose 50 % in Water (Syg) 50 ML SYRINGE IVP PRN (09:07)
[2017-10-29] MEDS ORDERED: Insulin Human Regular 10 UNIT in 0.9 % Sodium Chloride 10 ML IV STA (09:07)
[2017-10-29] MEDS ORDERED: Dextrose Gel 15 GM PO PRN ×2 (09:07)
[2017-10-29] MEDS ORDERED: D5% in Water 1,000 ML IVC PRN (09:07)
--- NOTE | 2017-10-29 12:01 | Nephrology Progress Note ---
Date of Encounter: 10/29/17 Time of Encounter: 09:00 - Assessment and Plan (1) Acute kidney injury superimposed on chronic kidney disease Current Visit: Yes Status: Acute Patient has known history of CKD. Patient received IVF yesterday, and Cr has improved from 5.05 to 3.85. With shared decision making, BMP will be drawn at noon, and if labs show continued improvement patient will be discharged home. She has two home health nurses, and her neighbor assists with ADL. This was discussed with primary team in agreement. - encouraged patient to drink fluids orally - patient to have follow up BMP next week, and to have follow up with Nephrology outpatient. (2) Severe dehydration Current Visit: No Status: Resolved see above Subjective Principal diagnosis: dehydration Interval history: Ms Lacy is a 72 yo F w/ who presents with 3 day hx of diarrhea that has since resolved. Last diarrhea was day before yesterday. Nephrology is consulted for MERNA on CKD. Patient is feeling better today. PAtient is seen and examined. She deneis SOB, CP, nausea, vomiting, diarrhea, fever or chills. Objective - Vital Signs Vital signs: Vital Signs Temp Pulse Resp BP Pulse Ox 10/29/17 11:43 88 10/29/17 11:00 98.0 F 86 18 126/59 97 10/29/17 10:00 89 20 116/52 98 10/29/17 09:00 103 22 121/67 99 10/29/17 08:00 96 20 113/55 98 10/29/17 07:40 94 10/29/17 07:00 98.4 F 95 18 126/60 94 10/29/17 06:00 96 16 100/45 100 10/29/17 05:00 98 16 122/55 100 10/29/17 04:00 98.5 F 100 18 110/47 100 10/29/17 03:00 96 16 114/48 100 10/29/17 02:00 96 16 127/56 100 10/29/17 01:00 99 14 134/68 100 10/29/17 00:19 97.7 F 10/29/17 00:10 104 16 126/90 100 10/28/17 23:00 98 14 140/72 100 10/28/17 22:00 90 16 140/65 100 10/28/17 21:12 96.3 F L 10/28/17 21:00 88 14 123/65 100 10/28/17 20:30 92 16 119/84 100 10/28/17 19:00 90 18 109/56 100 10/28/17 18:00 96 24 122/100 99 10/28/17 17:00 90 20 111/84 93 10/28/17 16:23 18 100 10/28/17 16:02 98.1 F 10/28/17 15:34 82 10/28/17 15:00 98.1 F 82 16 100/64 100 10/28/17 14:00 76 20 103/61 100 10/28/17 13:00 71 18 122/66 96 10/28/17 12:00 73 18 119/61 94 Intake and Output 10/28/17 10/29/17 10/29/17 23:59 07:59 15:59 Intake Total 1175 / 1175 1425 / 1425 Output Total 850 / 850 1550 / 1550 500 / 500 Balance 325 / 325 -125 / -125 -500 / -500 Intake: IV Fluids 1075 / 1075 1075 / 1075 Sodium Bicarbonate 75 MEQ In 0. 1075 / 1075 1075 / 1075 45% Sodium Chloride 1000 Ml 1000 Ml 1,000 ML @ 90 mls/hr IVC .[id number] [facility] Rx#:[id number] Oral 100 / 100 350 / 350 Output: Catheter 850 / 850 1550 / 1550 500 / 500 Other: Weight 62.7 kg Patient Weight 10/29/17 23:59 Weight 62.7 kg - General Appearance General appearance: Present: well-developed, appears started age Neck: Present: supple Respiratory: Present: clear Cardiology: Present: no murmurs, no rub, no gallops, no edema, regular rate, regular rhythm, normal S1, normal S2 Integumentary: Present: warm and dry Neurologic: Present: no focal deficit, no asterixis, alert and oriented x3 Psychiatric: Present: mood/affect appropriate, cooperative - Lab 10/29/17 03:50 10/29/17 03:50 Most recent lab results Calcium 7.8 mg/dL (8.6-10.3) L 10/29/17 03:50 Consult Discharge Plan - Plan Referrals: Macario Diallo MD [Primary Care Provider] -
[2017-10-29] MEDS: Insulin LISPRO 300 UNITS/3 ML VIAL SQ SCH ×2 (13:03→17:07)
[2017-10-29 13:20] LABS: Calcium 8.2 mg/dL (8.6-10.3); Potassium 4.8 mEq/L (3.5-5.1)
--- NOTE | 2017-10-29 19:53 | Internal Med Progress Note ---
Date of Encounter: 10/29/17 Time of Encounter: 10:07 - Assessment and plan (1) Hyperkalemia Current Visit: Yes Status: Resolved Assessment and plan: Resolved. K = 4.8 today. Continue to monitor. Recheck BMP in AM. Continue telemetry. Transfer to general medical floor. (2) Metabolic acidosis Current Visit: Yes Status: Resolved Assessment and plan: Resolved. Change IVF to IV NS as per below. (3) Acute worsening of stage 4 chronic kidney disease Current Visit: Yes Status: Acute Assessment and plan: Improving. Cr = 3.38 this AM (baseline appears to be near 2.5). Change IVF to IV NS and hydrate gently at 75 ml/hr. Continue to encourage PO hydration. Nephrology consulted; appreciate input. Plan for discharge tomorrow per nephrology as she has poor accountability for PO intake at home. (4) Diarrhea Current Visit: Yes Status: Resolved Assessment and plan: Resolved. No further episodes. Qualifiers: Diarrhea type: unspecified type Qualified Code(s): R19.7 - Diarrhea, unspecified (5) Diabetes mellitus Current Visit: Yes Status: Chronic Assessment and plan: Continue accuchecks and SSI QID AC/HS. Qualifiers: Diabetes mellitus type: type 2 Diabetes mellitus watermelon harvesting supervisor insulin use: with half-way use Diabetes mellitus complication status: with unspecified complications Qualified Code(s): E11.8 - Type 2 diabetes mellitus with unspecified complications; Z79.4 - rat exterminator (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; Z79.4 - rat exterminator (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; Z79.4 - jail (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; Z79.4 - jail (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 (6) HTN (hypertension) Current Visit: Yes Status: Chronic Assessment and plan: Continue home medications. Qualifiers: Hypertension type: essential hypertension Qualified Code(s): I10 - Essential (primary) hypertension (7) DVT prophylaxis Current Visit: Yes Status: Acute Assessment and plan: Continue SC heparin. - Time Spent With Patient less than 15 minutes - Subjective Interval history: Patient had no acute events overnight. She states that she is doing "great" this AM. She denies chest pain, SOB, N/V, diarrhea, fever, or chills. She is tolerating diet, and she states that she is drinking "lots of water and pop." She really wants to go home today to be home for Lena. She has no new complaints. - Constitutional Vitals: Temp Pulse Resp BP Pulse Ox 98.0 F 80 20 130/68 99 10/29/17 15:00 10/29/17 18:04 10/29/17 18:04 10/29/17 18:04 10/29/17 18:04 General appearance: Present: cooperative, A&O X 3, pleasant, no acute distress, answers questions appropriately - Respiratory Respiratory exam: Present: CTAB. Absent: accessory muscle use, rales, rhonchi, wheezes Additional comments: Normal WOB - Cardiovascular Cardiovascular exam: Present: RRR, +S1, +S2. Absent: diastolic murmur, gallop, rubs, systolic murmur Additional comments: No BLE edema - GI/Abdominal GI/Abdominal exam: Present: normal bowel sounds, soft. Absent: distended, hepatomegaly, mass, splenomegaly, tenderness - Psychiatric Psychiatric exam: Present: normal affect, normal mood. Absent: anxious, depressed - Skin Skin exam: Present: dry, intact, warm. Absent: cyanosis, rash Internal Medicine: Result - Labs CBC & Chem 7: 10/29/17 03:50 10/29/17 12:43 Labs: Short CBC 10/29/17 Range/Units 03:50 WBC 5.8 (4.3-11.1) K/mcL Hgb 8.1 L (11.5-15.4) g/dL Hct 24.9 L (35.3-44.9) % Plt Count 244 (140-400) K/mcL Neutrophils # 3.8 (1.6-8.9) K/mcL BMP 10/29/17 10/29/17 03:50 12:43 Sodium 132 L 130 L Potassium 5.4 H 4.8 Chloride 100 99 Carbon Dioxide 26 26 BUN 72 H 63 H Creatinine 3.85 H 3.38 H Glucose 307 H 240 H Calcium 7.8 L 8.2 L Consult Discharge Plan - Plan Referrals: Macario Diallo MD [Primary Care Provider] -
[2017-10-29] MEDS ORDERED: Insulin LISPRO 300 UNITS/3 ML VIAL SQ SCH (21:00)
[2017-10-29] MEDS: Gabapentin 100 MG CAPSULE PO SCH (21:57)
[2017-10-29] MEDS: 0.9 % Sodium Chloride 1,000 ML IVC SCH (22:01)
[2017-10-30 04:48] LABS: Basophils % 0.4 %; Eosinophils # 0.3 K/mcL (0.0-0.6); Eosinophils % 5.1 %; Hematocrit 25.1 % (35.3-44.9); Hemoglobin 7.9 g/dL (11.5-15.4); Immature Granulocytes % 0.9 % (0-4); Lymphocytes % 36.5 %; Mean Corpuscular HGB Conc 31.5 g/dL (31.6-35.5); Mean Corpuscular Hemoglobin 26.7 pg (28.0-33.3); Mean Corpuscular Volume 84.8 fL (83.0-100.0); Mean Platelet Volume 9.4 fL (9.4-12.4); Monocytes # 0.6 K/mcL (0.0-1.3); Monocytes % 11.4 %; Neutrophils # 2.5 K/mcL (1.6-8.9); Platelet Count 246 K/mcL (140-400); Red Blood Count 2.96 M/mcL (3.82-4.97); Red Cell Distribution Width 14.1 % (11.5-14.5); Segmented Neutrophils % 45.7 %
[2017-10-30 05:08] LABS: Calcium 8.3 mg/dL (8.6-10.3); Potassium 5.1 mEq/L (3.5-5.1)
[2017-10-30] MEDS: *HR* Heparin 5,000 UNIT/ML VIAL SQ SCH (05:54)
[2017-10-30] MEDS: Gabapentin 100 MG CAPSULE PO SCH (08:10)
[2017-10-30] MEDS: Aspirin Enteric Coated 81 MG Tablet PO SCH (08:10)
[2017-10-30] MEDS: Insulin LISPRO 300 UNITS/3 ML VIAL SQ SCH ×2 (08:10→11:55)
[2017-10-30 11:37] VITALS: BP 136/64
[2017-10-30] MEDS: 0.9 % Sodium Chloride 1,000 ML IVC SCH (12:40)
--- NOTE | 2017-10-30 14:03 | Nephrology Progress Note ---
Date of Encounter: 10/30/17 Time of Encounter: 09:00 - Assessment and Plan (1) Acute kidney injury superimposed on chronic kidney disease Current Visit: Yes Status: Acute Patient has known history of CKD. Cr on admission was 5.05. Today Cr continues to improve with fluid resuscitation. Patient is consuming fluids orally, and reports feeling thirsty. From a renal prospective, patient can be discharged at this time and followed up outpatient. - encouraged patient to drink fluids orally - patient to have follow up BMP next week, and to have follow up with Nephrology outpatient in 4 weeks. (2) Severe dehydration Current Visit: No Status: Resolved see above Subjective Principal diagnosis: dehydration Interval history: Ms Lacy is a 72 yo F w/ who presents with 3 day hx of diarrhea that has since resolved. Nephrology is consulted for MERNA on CKD. Patient is ready to leave hospital and has no new complaints today. She reports feeling thirsty and requests a cup of ice water. PAtient is seen and examined. She deneis SOB, CP, nausea, vomiting, diarrhea, fever or chills. Objective - Vital Signs Vital signs: Vital Signs Temp Pulse Resp BP Pulse Ox 10/30/17 11:30 99.4 F 71 16 136/64 97 10/30/17 07:48 98.4 F 81 16 112/63 97 10/30/17 03:52 98.2 F 79 17 128/64 97 10/29/17 23:35 98.7 F 81 17 124/61 98 10/29/17 20:50 98.4 F 90 16 119/62 97 10/29/17 18:04 80 20 130/68 99 10/29/17 15:00 98.0 F 88 18 97 Intake and Output 10/29/17 10/30/17 10/30/17 23:59 07:59 15:59 Intake Total 150 / 150 160 / 160 1000 / 1000 Output Total 550 / 550 1600 / 1600 950 / 950 Balance -400 / -400 -1440 / -1440 50 / 50 Intake: IV Fluids 1000 / 1000 0.9 % Sodium Chloride 1,000 ML 1000 / 1000 @ 75 mls/hr IVC .[id number] Rx #:[id number] Oral 150 / 150 160 / 160 Output: Catheter 550 / 550 1600 / 1600 950 / 950 Other: Meal Dinner Percent of Meal Consumed 100% Blood Glucose* 200 247 - General Appearance General appearance: Present: appears started age Neck: Present: supple Respiratory: Present: clear Cardiology: Present: no murmurs, no rub, no gallops, no edema, regular rate, regular rhythm, normal S1, normal S2 Gastrointestinal: Present: normoactive bowel sounds Integumentary: Present: warm and dry Neurologic: Present: alert and oriented x3 Psychiatric: Present: mood/affect appropriate, cooperative - Lab 10/30/17 03:50 10/30/17 03:50 Most recent lab results Calcium 8.3 mg/dL (8.6-10.3) L 10/30/17 03:50 Consult Discharge Plan - Plan Referrals: Macario Diallo MD [Primary Care Provider] -
--- NOTE | 2017-10-30 14:33 | Discharge Summary ---
- NOTES TO OUTPATIENT PROVIDER Notes to Outpatient Provider: Follow up with PCP in 2-3 days after discharge. Recheck BMP at follow up (hyperkalemia, MERNA on CKD). Follow up with nephrology as directed. Date of Encounter: 10/30/17 Time of Encounter: 14:29 - Discharge Diagnosis (1) Hyperkalemia Priority: Primary Status: Resolved (2) Metabolic acidosis Priority: Secondary Status: Resolved (3) Acute worsening of stage 4 chronic kidney disease Priority: Secondary Status: Acute (4) Diarrhea Priority: Secondary Status: Resolved Qualifiers: Diarrhea type: unspecified type Qualified Code(s): R19.7 - Diarrhea, unspecified (5) Diabetes mellitus Priority: Secondary Status: Chronic Qualifiers: Diabetes mellitus type: type 2 Diabetes mellitus manager terminal insulin use: with fpc use Diabetes mellitus complication status: with unspecified complications Qualified Code(s): E11.8 - Type 2 diabetes mellitus with unspecified complications; Z79.4 - terminal gauger supervisor (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; Z79.4 - correction (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; Z79.4 - terminal gauger supervisor (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; Z79.4 - terminal gauger supervisor (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 (6) HTN (hypertension) Priority: Secondary Status: Chronic Qualifiers: Hypertension type: essential hypertension Qualified Code(s): I10 - Essential (primary) hypertension (7) DVT prophylaxis Priority: Secondary Status: Acute Hospital course: Ms. Lacy is a 72 year old female admitted for hyperkalemia and acute on chronic kidney disease. She was initially admitted to ICU with telemetry. She was started on caclium gluconate, kayexalate, albuterol inhaled, and dextrose/ insulin for hyperkalemia. Nephrology was consulted. She was placed on IVF. Her acute worsening of CKD was attributed to poor PO hydration. Diarrhea resolved after admission. Metabolic acidosis resolved with some IVF with bicarb. She was transitioned to oral diet and encouraged PO hydration. Cr trended down daily to around 2.8 on day of discharge (baseline around 2.5). She was transferred out of ICU after 1 day with normalization of potassium. Potassium is normal at 5.1 on day of discharge. She is eager to go home today. She will follow up with PCP in 2-3 days after discharge. Repeat BMP can be checked at that time for evaluation of potassium and creatinine. She will follow up with nephrology as directed. Patient has met maximum benefit of this hospitalization and will be discharged home in stable condition. Discharge discussed with: patient, family, nurse - Time Spent with Patient Total time spent providing and/or coordinating discharge services: Greater than 30 minutes - Discharge Medications Home Medications: Metoprolol [Lopressor] 12.5 mg PO BID 03/01/16 [History] Insulin Glargine,Hum.rec.anlog [Lantus Solostar] 30 units SQ HS 07/10/17 [ History] Aspirin Enteric Coated [Aspirin EC] 81 mg PO DAILY 08/04/17 [History] Oxygen 2 l NS AD 08/04/17 [History] Gabapentin [Neurontin] 100 mg PO BID 09/17/17 [History] Ferrous Sulfate 325 mg PO BID 10/28/17 [History] Ondansetron HCl [Zofran] 4 mg PO TID PRN 10/28/17 [History] Pravastatin Sodium [Pravachol] 10 mg PO HS 10/28/17 [History] Allergies/Adverse Reactions: 3 Allergy/AdvReac Type Severity Reaction Status Date / Time acetaminophen [From Tylenol] Allergy See Verified 10/27/17 21:42 Comments Influenza Virus Vaccines Allergy See Verified 10/27/17 21:42 Comments Date of admission: 10/28/17 02:51 Primary care physician: Macario Diallo MD Consults: 10/28/17 04:02 Consult to Nephrology [CONS] Stat Consulting Provider: [facility] Isis/SHAINA/FARTUN/HEAVEN Reason for Consult: ARF Call Completed: Yes Discharging clinician: Olayinka Callahan Anticipated date of discharge: 10/30/17 - Constitutional Vitals: Temp Pulse Resp BP Pulse Ox 99.4 F 71 16 136/64 97 10/30/17 11:30 10/30/17 11:30 10/30/17 11:30 10/30/17 11:30 10/30/17 11:30 General appearance: Present: cooperative, A&O X 3, pleasant, no acute distress, answers questions appropriately - Respiratory Respiratory exam: Present: CTAB. Absent: accessory muscle use, rales, rhonchi, wheezes Additional comments: Normal WOB - Cardiovascular Cardiovascular exam: Present: RRR, +S1, +S2. Absent: diastolic murmur, gallop, rubs, systolic murmur Additional comments: No BLE edema - GI/Abdominal GI/Abdominal exam: Present: normal bowel sounds, soft. Absent: distended, hepatomegaly, mass, splenomegaly, tenderness - Psychiatric Psychiatric exam: Present: normal affect, normal mood. Absent: anxious, depressed - Skin Skin exam: Present: dry, intact, warm. Absent: cyanosis, rash - Patient Status Disposition: Home, Self-Care Condition: Good Overall status at discharge: patient is progressing back to baseline - Discharge Instructions Follow Up With: Macario Diallo MD [Primary Care Provider] - Additional Instructions: Follow up with PCP in 2-3 days after discharge. Recheck BMP at follow up ( hyperkalemia, MERNA on CKD). Follow up with nephrology as directed. - Diet and Activity Activity: resume usual activities as tolerated Diet: diabetic diet, low salt diet, other (Renal, Low-Potassium, Cardiac)
--- NOTE | 2017-10-30 14:58 | Physician Discharge Referral ---
Home Health/Hosp Referral Info Transfer to: Home Health Provider in Charge Post Discharge: PCP - Diagnosis (1) Hyperkalemia Priority: Primary Status: Resolved (2) Metabolic acidosis Priority: Secondary Status: Resolved (3) Acute worsening of stage 4 chronic kidney disease Priority: Secondary Status: Acute (4) Diarrhea Priority: Secondary Status: Resolved (5) Diabetes mellitus Priority: Secondary Status: Chronic (6) HTN (hypertension) Priority: Secondary Status: Chronic (7) DVT prophylaxis Priority: Secondary Status: Acute - Respiratory Orders Smoking Cessation: Smoking cessation has been advised. For more information, call the [place] Tobacco Quit Line at 4-727-YJHD-NOW. - Diet/Nutrition Diet/Nutrition Orders: No Added Salt (GWENDOLYN), Renal, Cardiac, No Concentrated Sweets Diet/Nutrition: List: Diabetic, Low-Potassium - Services Needed Following services are medically necessary services: Nursing, Home Health Aide, Physical Therapy - Transfer Medications Home Medications: Metoprolol [Lopressor] 12.5 mg PO BID 03/01/16 [History] Insulin Glargine,Hum.rec.anlog [Lantus Solostar] 30 units SQ HS 07/10/17 [ History] Aspirin Enteric Coated [Aspirin EC] 81 mg PO DAILY 08/04/17 [History] Oxygen 2 l NS AD 08/04/17 [History] Gabapentin [Neurontin] 100 mg PO BID 09/17/17 [History] Ferrous Sulfate 325 mg PO BID 10/28/17 [History] Ondansetron HCl [Zofran] 4 mg PO TID PRN 10/28/17 [History] Pravastatin Sodium [Pravachol] 10 mg PO HS 10/28/17 [History] Allergies/Adverse Reactions: 3 Allergy/AdvReac Type Severity Reaction Status Date / Time acetaminophen [From Tylenol] Allergy See Verified 10/27/17 21:42 Comments Influenza Virus Vaccines Allergy See Verified 10/27/17 21:42 Comments Certification: Further, I certify that my clinical findings support that this patient is homebound (i.e. absences from home require considerable and taxing effort and are for medical reasons or faith services or infrequently or short duration when for other reasons) because: CKD, DM, HTN. Homebound Reason: Patient requires assistance of a person or device to safely leave home, Leaving home requires considerable and taxing effort due to condition Attestation: My signature below is to certify that this patient is under my care and that I, or nurse practitioner, or a physician's chemical laboratory assistant working with me, has a face-to -face encounter with this patient.
== END 2017-10-30 16:53 | disposition home or self-care (01) | DRG 683 ==
LOC: EMEROO 21:34 → ICNU 10-28 02:51 → 2ANU 10-29 19:07
PROVIDERS: ADMIT Internal Medicine Nephrology; ATTEND Internal Medicine Nephrology

== ENCOUNTER 2017-11-15 17:51 | Inpatient (IN) ==
[2017-11-15] MEDS ORDERED: Ondansetron 4 MG/2 ML VIAL IVP ONE (18:07)
--- NOTE | 2017-11-15 18:09 | Emergency Department Note ---
Disposition Clinical Impression: Hyperkalemia, Generalized weakness, MERNA (acute kidney injury) UTI (urinary tract infection) Qualifiers: Urinary tract infection type: site unspecified Hematuria presence: with hematuria Qualified Code(s): N39.0 - Urinary tract infection, site not specified Disposition: Admitted As Inpatient Condition: Fair Referrals: Macario Diallo MD [Primary Care Provider] - Forms: ED Satisfaction Letter Time of Disposition: 20:10 General Adult HPI - General Chief complaint: ED Weakness Stated complaint: Weakness Time Seen by Provider: 11/15/17 17:54 Source: patient, EMS Mode of arrival: EMS Limitations: no limitations Nursing Notes Reviewed: Yes Vital Signs Reviewed: Yes - History of Present Illness HPI Narrative: Patient is a 72-year-old female that presents the emergency department for generally not feeling well and weakness. She states that this began yesterday. She states that she had an episode of vomiting yesterday and has been somewhat nauseated since then. The patient states that she has generally been feeling weak and having more pain in her leg. States the pain in her legs gets bad at times due to her diabetic neuropathy. She states that this is not new for her. Patient does state that she has had a Madden catheter that is been in place for approximately 2-3 weeks and is almost due to be changed. Patient denies any fever but does state that she has been having some chills. Patient denies any chest pain, shortness of breath or abdominal pain. - Related Data Home Medications Medication Instructions Recorded Confirmed Metoprolol [Lopressor] 12.5 mg PO BID 03/01/16 10/28/17 Insulin Glargine,Hum.rec.anlog 30 units SQ HS 07/10/17 10/28/17 [Lantus Solostar] Aspirin Enteric Coated [Aspirin EC] 81 mg PO DAILY 08/04/17 10/28/17 Oxygen 2 l NS AD 08/04/17 10/09/17 Gabapentin [Neurontin] 100 mg PO BID 09/17/17 10/28/17 Ferrous Sulfate 325 mg PO BID 10/28/17 10/28/17 Ondansetron HCl [Zofran] 4 mg PO TID PRN 10/28/17 10/28/17 Pravastatin Sodium [Pravachol] 10 mg PO HS 10/28/17 10/28/17 Allergies Allergy/AdvReac Type Severity Reaction Status Date / Time acetaminophen [From Tylenol] Allergy See Verified 10/27/17 21:42 Comments Influenza Virus Vaccines Allergy See Verified 10/27/17 21:42 Comments All systems ED: reviewed and negative except as stated. Constitutional: Reports: chills. Denies: fever Cardiovascular: Denies: chest pain Respiratory: Denies: dyspnea Gastrointestinal: Reports: nausea, vomiting. Denies: abdominal pain Neurological: Reports: weakness, numbness (Distal lower extremities which is chronic for her) Past Medical History - Past Medical History Medical history: Reports: diabetes, hyperlipidemia, hypertension, renal disease , other Surgical history: Reports: appendectomy, cholecystectomy, hysterectomy Psychiatric history: Reports: no psych history SERVICE 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: Reports: no SERVICE 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 - Social History Smoking Status: Never smoker Smokeless Tobacco Status: No Alcohol use: Reports: none Drug use: Reports: none Physical Exam - General Limitations: no limitations General appearance: alert, in no apparent distress - Head Head exam: atraumatic, normocephalic - Eye Eye exam: Present: normal appearance, EOMI - Neck Neck exam: Present: normal inspection, full ROM, trachea midline - Respiratory Respiratory exam: Present: normal lung sounds bilaterally. Absent: respiratory distress, wheezes - Cardiovascular Cardiovascular exam: Present: regular rate, normal rhythm, normal heart sounds, +S1, +S2 - Abdominal Exam Abdominal exam: Present: soft, Non-Tender, normal bowel sounds - Neurological Exam Neurological exam: Present: alert, oriented X3, CN II-XII intact - Expanded Neurological Exam Patient oriented to: Present: person, place, time Speech: Present: fluid speech Cranial nerves: EOM function (II, III, IV, ): Normal, facial sensation (V): Normal, facial palsy (VII): Normal, gag reflex (IX): Normal, spinal accessory function (XI): Normal, tongue deviation (XII): Normal Motor strength - LUE: 5/5 Motor strength - RUE: 5/5 Motor strength - LLE: 5/5 Motor strength - RLE: 5/5 Sensory exam upper extremity: light touch: Normal Sensory exam lower extremity: light touch: Abnormal Left, Abnormal Right ( Patient has sensation in bilateral lower extremities she states that this is chronic to her due to her diabetic neuropathy.) Coma Scale Eye Opening: Spontaneous Coma Scale Motor Response: Obeys Commands Coma Scale Verbal Response: Oriented Coma Scale Total: 15 - Psychiatric Psychiatric exam: Present: normal affect, normal mood - Skin Skin exam: Present: warm, dry, intact Course - Reevaluation(s) Reevaluation #1: I called and spoke with the hospitalist and they have accepted the patient to their service. They did request that we call and touch base with nephrology. I will call and speak to Dr. Meza who happens to be the on-call loan adviser and the patient's loan adviser. Time: 19:52 Reevaluation #2: I called and spoke with Dr. Meza the on-call loan adviser and she stated that she is aware of this patient and has treated for similar conditions in the past. She recommended in addition to the IV fluids, insulin, glucose, bicarbonate to add Kayexalate. We will give 45 g of Kayexalate per her recommendation. The patient will be admitted to the hospital at this time with a consult to nephrology. Time: 20:08 Vital Signs Temperature 98.0 F 11/15/17 17:53 Pulse Rate 95 11/15/17 17:53 Respiratory Rate 18 11/15/17 17:53 Blood Pressure 117/66 11/15/17 17:53 O2 Sat by Pulse Oximetry 99 11/15/17 17:53 Temperature 98.0 F 11/15/17 17:53 Pulse Rate 96 11/15/17 19:58 Respiratory Rate 14 11/15/17 19:58 Blood Pressure 102/69 11/15/17 19:58 O2 Sat by Pulse Oximetry 98 11/15/17 19:58 Oxygen Delivery Oxygen Delivery Room Air Medical Decision Making - [facility] Narrative Medical decision making narrative: Due to the patient presenting with generalized weakness and not feeling well we will obtain a CBC, BMP, troponin, chest x-ray EKG and a urinalysis. On physical exam the nurse was drawing urine from the patient's Madden catheter which looked very cloudy with some sediment. I have a high suspicion that this patient will have a urinary tract infection. Patient was found to have a urinary tract infection we will treat this with Rocephin. Patient was found to be hyperkalemic at 6.5. We will give insulin, glucose and bicarbonate. Patient will also be given IV fluids. The patient will require admission to the hospital for further evaluation and management. Chest x-ray was negative per radiology read. I spoke with the admitting hospitals negative except the patient to service. The patient be admitted to the hospital at this time. - Lab Data Lab results reviewed: Yes I reviewed the patient's lab results. Result diagrams: 11/15/17 18:11 11/15/17 18:11 Lab Results 11/15/17 11/15/17 11/15/17 Range/Units 18:02 18:11 18:11 WBC 10.0 (4.3-11.1) K/mcL RBC 3.52 L (3.82-4.97) M/mcL Hgb 9.9 L (11.5-15.4) g/dL Hct 30.3 L (35.3-44.9) % MCV 86.1 (83.0-100.0) fL MCH 28.1 (28.0-33.3) pg MCHC 32.7 (31.6-35.5) g/dL RDW 14.1 (11.5-14.5) % Plt Count 534 H (140-400) K/mcL MPV 8.6 L (9.4-12.4) fL Immature Gran % 0.7 (0-4) % Seg Neutrophils % 55.3 % Lymphocytes % 30.6 % Monocytes % 9.0 % Eosinophils % 4.0 % Basophils % 0.4 % Neutrophils # 5.5 (1.6-8.9) K/mcL Lymphocytes # 3.1 (0.6-4.6) K/mcL Monocytes # 0.9 (0.0-1.3) K/mcL Eosinophils # 0.4 (0.0-0.6) K/mcL Basophils # 0.0 (0.0-0.2) K/mcL Sodium (136-145) mEq/L Potassium (3.5-5.1) mEq/L Chloride (98-107) mEq/L Carbon Dioxide (23-29) mEq/L BUN (8-23) mg/dL Creatinine (0.60-1.20) mg/dL Est GFR ( Amer) (> 60) Est GFR (Non-Af Amer) (> 60) BUN/Creatinine Ratio (6-26) Glucose (70-105) mg/dL Calculated Osmolality (280-300) Lactic Acid 1.4 (0.5-2.2) mmol/L Calcium (8.6-10.3) mg/dL Total Bilirubin (0.3-1.0) mg/dL AST (13-39) Units/L ALT (7-52) Units/L Alkaline Phosphatase (34-104) Units/L Troponin I (< 0.04) ng/mL Serum Total Protein (6.4-8.9) g/dL Albumin (3.5-5.7) g/dL Globulin (2.4-3.5) g/dL Albumin/Globulin Ratio (1.1-2.2) Ur Specimen Adequacy See below A Urine Color Yellow (Yellow) Urine Clarity Turbid A (Clear) Urine pH 6.5 (5.0-8.0) pH Units Ur Specific [place] 1.014 (1.010-1.025) Urine Protein >=300 H (Neg-Trace) mg/dL Urine Glucose (UA) Normal (Normal) mg/dL Urine Ketones Negative (Negative) mg/dL Urine Blood Moderate H (Negative) Urine Nitrite Negative (Negative) Urine Bilirubin Negative (Negative) Urine Urobilinogen Normal (Normal) mg/dL Ur Leukocyte Esterase Large H (Negative) Urine Microscopic RBC Present (0-3) per hpf Urine Microscopic WBC TNTC H (0-3) per hpf Amorphous Sediment Present (Few) Ur Culture Indicated? YES A (NO) 11/15/17 Range/Units 18:11 WBC (4.3-11.1) K/mcL RBC (3.82-4.97) M/mcL Hgb (11.5-15.4) g/dL Hct (35.3-44.9) % MCV (83.0-100.0) fL MCH (28.0-33.3) pg MCHC (31.6-35.5) g/dL RDW (11.5-14.5) % Plt Count (140-400) K/mcL MPV (9.4-12.4) fL Immature Gran % (0-4) % Seg Neutrophils % % Lymphocytes % % Monocytes % % Eosinophils % % Basophils % % Neutrophils # (1.6-8.9) K/mcL Lymphocytes # (0.6-4.6) K/mcL Monocytes # (0.0-1.3) K/mcL Eosinophils # (0.0-0.6) K/mcL Basophils # (0.0-0.2) K/mcL Sodium 127 L (136-145) mEq/L Potassium 6.5 H* (3.5-5.1) mEq/L Chloride 96 L (98-107) mEq/L Carbon Dioxide 23 (23-29) mEq/L BUN 83 H (8-23) mg/dL Creatinine 4.15 H (0.60-1.20) mg/dL Est GFR ( Amer) 13 L (> 60) Est GFR (Non-Af Amer) 10 L (> 60) BUN/Creatinine Ratio 20 (6-26) Glucose 90 (70-105) mg/dL Calculated Osmolality 289 (280-300) Lactic Acid (0.5-2.2) mmol/L Calcium 9.3 (8.6-10.3) mg/dL Total Bilirubin 0.2 L (0.3-1.0) mg/dL AST 8 L (13-39) Units/L ALT 8 (7-52) Units/L Alkaline Phosphatase 123 H (34-104) Units/L Troponin I < 0.03 (< 0.04) ng/mL Serum Total Protein 9.6 H (6.4-8.9) g/dL Albumin 3.3 L (3.5-5.7) g/dL Globulin 6.3 H (2.4-3.5) g/dL Albumin/Globulin Ratio 0.5 L (1.1-2.2) Ur Specimen Adequacy Urine Color (Yellow) Urine Clarity (Clear) Urine pH (5.0-8.0) pH Units Ur Specific [place] (1.010-1.025) Urine Protein (Neg-Trace) mg/dL Urine Glucose (UA) (Normal) mg/dL Urine Ketones (Negative) mg/dL Urine Blood (Negative) Urine Nitrite (Negative) Urine Bilirubin (Negative) Urine Urobilinogen (Normal) mg/dL Ur Leukocyte Esterase (Negative) Urine Microscopic RBC (0-3) per hpf Urine Microscopic WBC (0-3) per hpf Amorphous Sediment (Few) Ur Culture Indicated? (NO) - Radiology Data Radiology results reviewed: Yes I reviewed the patient's radiology results. Chest X-Ray 11/15/17 18:02 IMPRESSION: Negative portable study D/ / Yue Light Cha, MD / Yue Light Cha, MD Interpreting Provider: Yue Light Cha, MD - EKG Data EKG #1 EKG attestation: Yes I reviewed and interpreted this EKG. EKG results narrative: EKG shows a sinus rhythm at a rate of 96 bpm, WV interval of 228, QRS duration of 108, QTc of 401. There is a prolonged WV interval. No evidence of STEMI. However there are depressions in leads V4 and V5 and V6 with T-wave inversions in 1 and aVL. This was compared to previous EKG on 10/28/17 which showed these depressions and inversions were present at that time. There are no new acute changes seen on this EKG.
[2017-11-15 18:35] LABS: Basophils % 0.4 %; Eosinophils # 0.4 K/mcL (0.0-0.6); Hematocrit 30.3 % (35.3-44.9); Hemoglobin 9.9 g/dL (11.5-15.4); Immature Granulocytes % 0.7 % (0-4); Lymphocytes # 3.1 K/mcL (0.6-4.6); Lymphocytes % 30.6 %; Mean Corpuscular HGB Conc 32.7 g/dL (31.6-35.5); Mean Corpuscular Hemoglobin 28.1 pg (28.0-33.3); Mean Corpuscular Volume 86.1 fL (83.0-100.0); Mean Platelet Volume 8.6 fL (9.4-12.4); Monocytes # 0.9 K/mcL (0.0-1.3); Neutrophils # 5.5 K/mcL (1.6-8.9); Platelet Count 534 K/mcL (140-400); Red Blood Count 3.52 M/mcL (3.82-4.97); Red Cell Distribution Width 14.1 % (11.5-14.5); Segmented Neutrophils % 55.3 %
[2017-11-15 18:47] LABS: Bilirubin,Urine Negative (Negative); Blood,Urine Moderate (Negative); Clarity,Urine Turbid (Clear); Color,Urine Yellow (Yellow); Glucose,Urine (UA) Normal (Normal); Ketones,Urine Negative (Negative); Leukocyte Esterase,Urine Large (Negative); Nitrite,Urine Negative (Negative); PH,Urine 6.5 pH Units (5.0-8.0); Protein,Urine >=300 mg/dL (Neg-Trace); Specific Gravity,Urine 1.014 (1.010-1.025); Urobilinogen,Urine Normal (Normal)
[2017-11-15 18:50] LABS: WBC,Urine TNTC per hpf (0-3)
[2017-11-15 18:52] LABS: Amorphous Sediment,Urine Present (Few); RBC,Urine Present per hpf (0-3)
[2017-11-15 18:55] LABS: Alanine Aminotransferase 8 Units/L (7-52); Albumin 3.3 g/dL (3.5-5.7); Albumin/Globulin Ratio 0.5 (1.1-2.2); Alkaline Phosphatase 123 Units/L (34-104); Aspartate Amino Transferase 8 Units/L (13-39); BUN/Creatinine Ratio 20 (6-26); Bilirubin,Total 0.2 mg/dL (0.3-1.0); Blood Urea Nitrogen 83 mg/dL (8-23); Calcium 9.3 mg/dL (8.6-10.3); Carbon Dioxide 23 mEq/L (23-29); Chloride 96 mEq/L (98-107); Globulin 6.3 g/dL (2.4-3.5); Glucose 90 mg/dL (70-105); Osmolality,Calculated 289 (280-300); Potassium 6.5 mEq/L (3.5-5.1); Sodium 127 mEq/L (136-145); Total Protein 9.6 g/dL (6.4-8.9); Troponin I < 0.03 ng/mL (< 0.04); eGFR For African Americans 13 (> 60); eGFR For Non-African Americans 10 (> 60)
[2017-11-15] MEDS ORDERED: 0.9 % Sodium Chloride 1,000 ML IVC ONE (18:57)
[2017-11-15] MEDS ORDERED: *HR* Dextrose 50 % in Water (Syg) 50 ML SYRINGE IVP ONE (18:57)
[2017-11-15] MEDS ORDERED: Insulin Human Regular 10 UNIT in 0.9 % Sodium Chloride 10 ML IV ONE (18:57)
[2017-11-15] MEDS ORDERED: Sodium Bicarbonate 50 MEQ/50 ML VIAL IVP ONE (19:00)
[2017-11-15] MEDS ORDERED: cefTRIAXone 1,000 MG in Water for inj. (sterile) 20 ML 10 ML IVP ONE (19:03)
--- NOTE | 2017-11-15 19:51 | Emergency Department Note ---
START Narrative - START START: I examined this patient and my medical decision-making was reviewed with the Resident Physician. I agree with the documented findings, disposition and treatment plan as described except to the extent set forth below. 72-year-old female had presented to the ER for weakness. She has a chronic indwelling Madden catheter. She was getting. Pus like purulent drainage from this Madden catheter. She does have evidence of a urinary tract infection. She also has a history of worsening renal failure. Her potassium was also elevated at 6.5. Patient was given insulin, D50, bicarbonate, and IV fluids. We will consult with nephrology as well. Patient will be admitted to the hospitalist. Critical care time of 35 minutes spent in medical management of the patient's UTI as well as renal failure and hyperkalemia.
--- NOTE | 2017-11-15 20:51 | Internal Med History&Physical ---
<Alonzo Alvarez - Last Filed: 11/15/17 23:00> Date of Encounter: 11/15/17 Time of Encounter: 20:48 Internal Medicine - H&P: HPI Chief complaint: Weakness, malaise Admitted From: Home History of present illness: Ms. Lacy is a 72 year old female who presented to [facility] on the evening of with a chief complaint of general malaise and weakness of one days duration. Patient had one episode of vomiting yesterday; has been experiencing nausea ever since. Patient also complains of pain in her leg. Admits to having baseline pain in her lower extremities secondary to diabetic neuropathy. Patient has a Madden catheter that has been in place for approximately 2-3 weeks ; almost due to be changed. Reports having chills; denies having any fever, chest pain, shortness of breath, or abdominal pain. Patients vital signs were within normal limits on presentation. Chest x-ray was unremarkable. EKG demonstrated prolonged TX interval of 228; unchanged from previous. No acute changes observed on EKG. Patients gear changer is Dr. Meza; has been contacted. Per her recommendations: She is aware patient being treated for similar presentation in the past. Recommends IV fluids, insulin, glucose, bicarbonate, and Kayexalate. 45 g Kayexalate given per Dr. Britton recommendation. Patient was seen and examined at bedside this evening. Past Med Surg Social Fam HX - Past Medical History Medical history: diabetes, hyperlipidemia, hypertension, renal disease, other Psychiatric history: no psych history - Past Surgical History Surgical History: appendectomy, cholecystectomy, hysterectomy - Social History Smoking Status: Never smoker Smokeless Tobacco Status: No Alcohol use: none Drug use: none - Family History Mother Living Status: Hx Family Cardiac Disorders: Yes Father Living Status: Hx Family Cardiac Disorders: Yes Internal Medicine - H&P: Meds Metoprolol [Lopressor] 12.5 mg PO BID 03/01/16 [History] Insulin Glargine,Hum.rec.anlog [Lantus Solostar] 30 units SQ HS 07/10/17 [ History] Aspirin Enteric Coated [Aspirin EC] 81 mg PO DAILY 08/04/17 [History] Oxygen 2 l NS AD 08/04/17 [History] Gabapentin [Neurontin] 100 mg PO BID 09/17/17 [History] Ferrous Sulfate 325 mg PO BID 10/28/17 [History] Ondansetron HCl [Zofran] 4 mg PO TID PRN 10/28/17 [History] Pravastatin Sodium [Pravachol] 10 mg PO HS 10/28/17 [History] 3 Allergy/AdvReac Type Severity Reaction Status Date / Time acetaminophen [From Tylenol] Allergy See Verified 10/27/17 21:42 Comments Influenza Virus Vaccines Allergy See Verified 10/27/17 21:42 Comments All Systems PM: A 10-system review of systems was performed and is negative for pertinent findings except as documented above in the HPI. - Constitutional Constitutional: no chills, no fever(s), no night sweats - EENT Eyes: no change in vision, no discharge, no pain, no photophobia Ears: no ear discharge, no ear pain, no tinnitus Nose, mouth and throat: no dysphagia, no nasal discharge, no neck pain, no sore throat - Cardiovascular Cardiovascular ROS IM: no chest pain, no diaphoresis, no dyspnea, no lightheadedness, no palpitations, no syncope - Respiratory Respiratory: no cough, no dyspnea, no wheezing, no excessive phlegm production - Gastrointestinal Gastrointestinal: no abdominal pain, no diarrhea, no hematemesis, no hematochezia, no melena, no nausea, no vomiting - Genitourinary Genitourinary: no change in urinary stream, no dysuria, no flank pain, no hematuria - Musculoskeletal Musculoskeletal ROS IM: no numbness, no tingling - Integumentary Integumentary IM: no rash, no unusual bruising - Neurological Neurological ROS: no confusion, no convulsions, no focal weakness, no numbness, no tingling, no tremor(s) - Hematologic/Lymphatic Hematologic/Lymphatic: no easy bruising - Constitutional Vitals: Temp Pulse Resp BP Pulse Ox 98.0 F 96 14 102/69 98 11/15/17 17:53 11/15/17 19:58 11/15/17 19:58 11/15/17 19:58 11/15/17 19:58 General appearance: Present: A&O X 3 - Head Head exam: Present: atraumatic, normocephalic - Eye Eye exam: Present: PERRL, conjuntiva pink, sclera anicteric Pupils: Present: PERRL - Neck Neck exam general surgery: Present: supple, trachea midline. Absent: lymphadenopathy - Respiratory Respiratory exam: Present: CTAB. Absent: accessory muscle use, rales, rhonchi, wheezes - Cardiovascular Cardiovascular exam: Present: RRR, +S1, +S2. Absent: diastolic murmur, gallop, rubs, systolic murmur - GI/Abdominal GI/Abdominal exam: Present: normal bowel sounds, soft, no peritoneal signs. Absent: distended, tenderness - Extremities Exam Extremities exam: Present: warm, radial pulses palpable and symmetrical. Absent : calf tenderness, cyanotic, pedal edema - Neurological Exam Neurological exam: Present: CN II-XII intact, oriented X3, no focal deficits. Absent: pronater drift, facial droop, speech deficit - Skin Skin exam: Present: dry, intact Internal Med - H&P Results - Labs CBC & Chem 7: 11/15/17 18:11 11/15/17 20:35 Labs: Short CBC 11/15/17 Range/Units 18:11 WBC 10.0 (4.3-11.1) K/mcL Hgb 9.9 L (11.5-15.4) g/dL Hct 30.3 L (35.3-44.9) % Plt Count 534 H (140-400) K/mcL Neutrophils # 5.5 (1.6-8.9) K/mcL BMP 11/15/17 18:11 Sodium 127 L Potassium 6.5 H* Chloride 96 L Carbon Dioxide 23 BUN 83 H Creatinine 4.15 H Glucose 90 Calcium 9.3 Cardiac Enzymes 11/15/17 Range/Units 18:11 Troponin I < 0.03 (< 0.04) ng/mL Liver Function 11/15/17 Range/Units 18:11 Total Bilirubin 0.2 L (0.3-1.0) mg/dL AST 8 L (13-39) Units/L ALT 8 (7-52) Units/L Alkaline Phosphatase 123 H (34-104) Units/L Albumin 3.3 L (3.5-5.7) g/dL Urine 11/15/17 Range/Units 18:11 Urine Color Yellow (Yellow) Urine Clarity Turbid A (Clear) Urine pH 6.5 (5.0-8.0) pH Units Ur Specific [place] 1.014 (1.010-1.025) Urine Protein >=300 H (Neg-Trace) mg/dL Urine Glucose (UA) Normal (Normal) mg/dL - Impressions ITS Impressions Chest X-Ray 11/15/17 18:02 IMPRESSION: Negative portable study D/ / Yue Light Cha, MD / Yue Light Cha, MD Interpreting Provider: Yue Light Cha, MD - Assessment and plan (1) Acute kidney injury superimposed on chronic kidney disease Current Visit: No Status: Acute Assessment and plan: Per chart review, patient was recently discharged with a similar presentation on 10/30. Patients acute renal failure at this time was attributed to poor PO hydration. - Laboratory analysis demonstrated the following: Low Na at 127, elevated K at 6.5, BUN 83, SCr 4.15 - Based on previous visits, patients baseline Cr appears to be between 2.5 - 3.5 - Patient recently had surgery for diabetic wound; was given vancomycin - MERNA possibly secondary to vancomycin induced toxicity Plan: - Nephrology has been consulted; would appreciate further recommendations - IVF; 40 ml/h - Hold nephrotoxic agents - Strict Is and Os - Renal/diabetic diet (2) UTI (urinary tract infection) Current Visit: Yes Status: Acute Assessment and plan: UA demonstrated the following: Turbid, elevated protein greater than 300, moderate blood, large leukocyte esterase, white blood cells TNTC - Previous urine CX from 10/28, 11/06, and 11/10 have demonstrated Gricelda glabrata ; - Patient was given 1 dose of Rocephin 1 g in the ER - Urine culture has been ordered Plan: - Rocephin - We will tailor antibiotic therapy based on culture results Qualifiers: Urinary tract infection type: site unspecified Hematuria presence: with hematuria Qualified Code(s): N39.0 - Urinary tract infection, site not specified; R31.9 - Hematuria, unspecified; R31.9 - Hematuria, unspecified (3) Hyperkalemia Current Visit: Yes Status: Chronic Assessment and plan: Laboratory analysis demonstrated an elevated potassium level at 6.5 - Patient has had previous admission with hyperkalemia - No acute EKG changes compared to prior, no peak T waves, QRS 112 - No hx of hyperkalemia requiring dialysis Plan: - Continuous cardiac monitoring - Calcium gluconate, kayexalate, albuterol inhaled, and dextrose/insulin will be administered per the recommendations of Dr. Meza - Stat potassium has been ordered (4) Diabetes mellitus Current Visit: No Status: Chronic Assessment and plan: Patient has a known history of diabetes mellitus - Last HgbA1c 9.8 on 07/06/17 Plan: - Accu-Cheks every hour for 5-6 hours for close glucose monitoring - Sliding scale insulin Qualifiers: Diabetes mellitus type: type 2 Diabetes mellitus roasterman insulin use: with longterm use Diabetes mellitus complication status: with unspecified complications Qualified Code(s): E11.8 - Type 2 diabetes mellitus with unspecified complications; Z79.4 - [facility] (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; Z79.4 - intermediate frame tender (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; Z79.4 - intermediate frame tender (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; Z79.4 - [facility] (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 (5) DVT prophylaxis Current Visit: No Status: Acute Assessment and plan: - Heparin 5000 SQ Q12 - Time Spent With Patient Total time spent is greater than 50% in coordination of care (as documented) at patient's floor/unit and/or counseling patient: <Bert Yadav P - Last Filed: 11/15/17 23:16> Date of Encounter: 11/15/17 Internal Medicine - H&P: HPI History of present illness: Ms. Lacy is a 72 year old female All Systems PM: A 10-system review of systems was performed and is negative for pertinent findings except as documented above in the HPI. - Constitutional Vitals: Temp Pulse Resp BP Pulse Ox 98.2 F 87 16 98/64 100 11/15/17 21:25 11/15/17 22:20 11/15/17 22:20 11/15/17 22:20 11/15/17 22:20 Internal Med - H&P Results - Labs CBC & Chem 7: 11/15/17 18:11 11/15/17 20:35 - Attending Attestation I examined this patient and my medical decision-making was reviewed with the Resident Physician. I agree with the documented findings, disposition and treatment plan as described except to the extent set forth below. 72/female Multiple comorbid issues. Recent podiatric surgery in [place] for diabetic foot ulcer. Known to have a CKD stage III getting into for stage IV Multiple admissions in the recent past for history of present illness insecurity with the various etiology. This admission is for worsening nausea and fatigue. Noted that patient has a uremic symptoms in terms of persistent nausea and gastritis On examination No pericardial rub Alert oriented 3 Labs: Hyperkalemia resolved after initial therapy. Low hemoglobin likely secondary to anemia from the chronic kidney disease unless proven otherwise Assessment: Acute kidney injury the patient who has chronic kidney disease stage IV Etiology: Multifactorial a) infective etiology in terms of UTI/diabetic foot ulcer b) disease progression Plan: Admit as a inpatient. Treatment of hyperkalemia as recommended by nephrology. Gentle hydration. Repeat labs tomorrow. Watch for worsening renal function/drop in hemoglobin. - Time Spent With Patient Total time spent is greater than 50% in coordination of care (as documented) at patient's floor/unit and/or counseling patient:
[2017-11-15] MEDS ORDERED: Naloxone 0.4 MG/ML INJ IVP PRN (21:16)
[2017-11-15] MEDS ORDERED: Ondansetron ODT 4 MG TAB.RAPDIS PO PRN (22:03)
[2017-11-15] MEDS ORDERED: NON-FORMULARY MEDICATION 1 EACH EACH (Oxygen [Oxygen] 2 L) NS SCH (22:15)
[2017-11-15] MEDS ORDERED: 0.9 % Sodium Chloride 1,000 ML IVC SCH (23:00)
[2017-11-15] MEDS ORDERED: D5% in 0.9% NACL 1,000 ML IVC SCH (23:00)
[2017-11-16] MEDS ORDERED: D5% in Water 1,000 ML IVC PRN ×2 (01:10→12:37)
[2017-11-16] MEDS ORDERED: Dextrose Gel 15 GM/37.5 ML TUBE PO PRN ×4 (01:10→12:37)
[2017-11-16] MEDS ORDERED: *HR* Dextrose 50 % in Water (Syg) 50 ML SYRINGE IVP PRN ×2 (01:10→12:37)
[2017-11-16] MEDS: Insulin LISPRO 300 UNITS/3 ML VIAL SQ SCH ×4 (01:49→21:24)
[2017-11-16 03:35] LABS: Hematocrit 27.4 % (35.3-44.9); Mean Corpuscular HGB Conc 32.8 g/dL (31.6-35.5); Mean Corpuscular Hemoglobin 27.5 pg (28.0-33.3); Mean Corpuscular Volume 83.8 fL (83.0-100.0); Mean Platelet Volume 8.8 fL (9.4-12.4); Platelet Count 406 K/mcL (140-400); Red Blood Count 3.27 M/mcL (3.82-4.97); Red Cell Distribution Width 14.2 % (11.5-14.5)
[2017-11-16 03:59] LABS: Calcium 8.4 mg/dL (8.6-10.3); Magnesium 1.8 mg/dL (1.6-2.6); Potassium 6.6 mEq/L (3.5-5.1)
[2017-11-16] MEDS ORDERED: Insulin Human Regular 10 UNIT in 0.9 % Sodium Chloride 10 ML IV ONE (04:36)
[2017-11-16] MEDS ORDERED: *HR* Dextrose 50 % in Water (Syg) 50 ML SYRINGE IVP ONE (04:37)
[2017-11-16] MEDS ORDERED: Insulin LISPRO 300 UNITS/3 ML VIAL SQ SCH ×2 (08:29→21:00)
[2017-11-16] MEDS ORDERED: 0.9 % Sodium Chloride 1,000 ML IVC SCH ×2 (08:30→11:07)
[2017-11-16] MEDS ORDERED: Insulin DETEMIR 100 UNIT/ML X5UNITS SQ SCH (09:00)
[2017-11-16] MEDS ORDERED: Aspirin Enteric Coated 81 MG Tablet PO SCH (09:00)
[2017-11-16] MEDS ORDERED: Gabapentin 100 MG CAPSULE PO SCH (09:00)
[2017-11-16] MEDS ORDERED: Naloxone 0.4 MG/ML INJ IVP PRN (12:37)
[2017-11-16] MEDS ORDERED: Ondansetron ODT 4 MG TAB.RAPDIS PO PRN (12:37)
--- NOTE | 2017-11-16 13:06 | Nephrology Consult Note ---
Date of Encounter: 11/16/17 Time of Encounter: 12:00 Assessment and Plan (1) MERNA (acute kidney injury) Status: Acute Elevated SCr in the setting of decrease fluid intake and possible sepsis from urinary source Agree with aggressive volume repletion as has worked in the past but also SCr improving from 4.15 to 3.83 already UOp good Avoid nephrotoxins if possible No acute indication for NAIL PULLER at this time Will send typical workup (2) Hyperkalemia Status: Chronic Potassium elevated, can give kayexalate and serial potassium checks Renal diet advised (3) Chronic kidney disease, stage IV (severe) Status: Chronic Baseline GFR 16-20 (4) Hyponatremia Status: Chronic Low sodium due to volume depletion, should improve with volume repletion from NS History of Present Illness - Reason for Consult Consult date: 12/06/17 Acute Kidney Injury, Chronic Kidney Disease, hyperkalemia Requesting physician: Hayes Gutierrez - History of Present Illness 72 y o female with PMH of stage 4 CKD, DM along with recurrent MERNA requiring transient HD in august for hyperkalemia well known to me from all her previous hospital stays presenting with similar diagnosis with weakness, UTI and found with elevated SCr from baseline and elevated potassiun. Baseline GFR typically from 16-20. Pt has had at least 5 hospital stay since july for MERNA and has a indwelling naylor catheter byt fails to stay hydrated and frequently gets volume depleted. This time she was monitored by her granson who reports she would not listen to him. Pt has refused ECF in the past but appears not able to take care of self. No NSAIDs. No N/V/D Past Med Surg Social Fam HX - Past Medical History Medical history: diabetes, hyperlipidemia, hypertension, renal disease, other Psychiatric history: no psych history - Past Surgical History Surgical History: appendectomy, cholecystectomy, hysterectomy - Social History Smoking Status: Never smoker Smokeless Tobacco Status: No Alcohol use: none Drug use: none - Family History Mother Living Status: Hx Family Cardiac Disorders: Yes Father Living Status: Hx Family Cardiac Disorders: Yes Medications and Allergies Metoprolol [Lopressor] 12.5 mg PO BID 03/01/16 [History] Aspirin Enteric Coated [Aspirin EC] 81 mg PO DAILY 08/04/17 [History] Oxygen 2 l NS AD 08/04/17 [History] Gabapentin [Neurontin] 100 mg PO BID 09/17/17 [History] Ferrous Sulfate 325 mg PO BID 10/28/17 [History] Ondansetron HCl [Zofran] 4 mg PO TID PRN 10/28/17 [History] Pravastatin Sodium [Pravachol] 10 mg PO HS 10/28/17 [History] Cholecalciferol (Vitamin D3) [Vitamin D3] 1,000 unit PO DAILY 11/16/17 [History] Insulin Glargine,Hum.rec.anlog [Basaglar Kwikpen U-100] 40 unit SQ HS 11/16/17 [ History] Fluconazole [Diflucan] 100 mg PO DAILY #13 tablet 11/19/17 [Rx] 3 Allergy/AdvReac Type Severity Reaction Status Date / Time acetaminophen [From Tylenol] Allergy See Verified 11/16/17 08:20 Comments Influenza Virus Vaccines Allergy See Verified 10/27/17 21:42 Comments Review of Systems All Systems: reviewed and no additional remarkable complaints except as stated ( 10 systens reviewed and as noted in HPI) Exam - Vital Signs Vital signs: Initial Vital Signs Temp Pulse Resp BP Pulse Ox 98.0 F 95 18 117/66 99 11/15/17 17:53 11/15/17 17:53 11/15/17 17:53 11/15/17 17:53 11/15/17 17:53 Vital Signs - Last 8 Hours Temp Pulse Resp BP Pulse Ox 11/16/17 12:53 98.1 F 92 16 120/58 99 11/16/17 11:46 98.1 F 95 14 112/69 97 11/16/17 10:00 101 10 133/60 97 11/16/17 08:00 107 30 118/64 96 11/16/17 07:50 99.2 F 11/16/17 06:00 105 14 143/74 97 11/16/17 05:07 98.4 F Intake and Output 11/15/17 11/16/17 11/16/17 23:59 07:59 15:59 Intake Total 880 / 880 Output Total 825 / 825 400 / 400 Balance -825 / -825 480 / 480 Intake: IV Fluids 400 / 400 0.9 % Sodium Chloride 1,000 ML 400 / 400 @ 25 mls/hr IVC .Q24H VIKA Rx#: [id number] Oral 480 / 480 Output: Catheter 825 / 825 400 / 400 Other: Meal Breakfast Percent of Meal Consumed 50% Stool Size Small Stool Consistency liquid Stool Color Brown # Bowel Movements 4 Weight 55.4 kg Blood Glucose* 330 206 Patient Weight 11/16/17 23:59 Weight 55.4 kg - General Appearance General appearance: chronically ill, frail EENT: ATNC, mucous membranes dry Neck: no JVD, supple Respiratory: clear (ant bilat) Cardiology: no edema, normal S1, normal S2 Gastrointestinal: no tenderness, no guarding Integumentary: warm and dry Neurologic: no focal deficit Musculoskeletal: no deformities Psychiatric: mood/affect appropriate Results - Lab Results 11/19/17 08:45 11/19/17 08:45 Most recent lab results Calcium 8.4 mg/dL (8.6-10.3) L 11/16/17 03:20 Magnesium 1.8 mg/dL (1.6-2.6) 11/16/17 03:20 Consult Discharge Plan - Plan Instructions: Chronic Kidney Disease (DC), Potassium Content of Foods List (DC) , Diabetes Mellitus Type 2 in Adults (DC), Hyperkalemia (DC), Anemia (GEN) Referrals: Macario Diallo MD [Primary Care Provider] - 11/26/17 2:15 pm Layla Dennis MD [Partnered Physician] - 12/08/17 11:30 am () Prescriptions: Fluconazole [Diflucan] 100 mg PO DAILY #13 tablet
--- NOTE | 2017-11-16 13:13 | Internal Med Progress Note ---
Date of Encounter: 11/16/17 Time of Encounter: 10:30 - Assessment and plan (1) Acute kidney injury superimposed on chronic kidney disease Current Visit: Yes Status: Acute Assessment and plan: Creatinine improving. 3.83 today. Nephrology following. We will follow recommendations. Continue to monitor urine output. Moderate risk for complications. (2) UTI (urinary tract infection) Current Visit: Yes Status: Acute Assessment and plan: Follow culture results. On Rocephin. Qualifiers: Urinary tract infection type: acute cystitis Hematuria presence: with hematuria Qualified Code(s): N30.01 - Acute cystitis with hematuria (3) Diabetes mellitus Current Visit: Yes Status: Chronic Assessment and plan: Uncontrolled. Placed patient on long-acting insulin and increase sliding scale coverage. We will monitor blood sugars closely. Diabetic diet. Qualifiers: Diabetes mellitus type: type 2 Diabetes mellitus intermediate accountant insulin use: with intermediate accountant use Diabetes mellitus complication status: with kidney complications Diabetes mellitus complication detail: with chronic kidney disease Chronic kidney disease stage: stage 3 (moderate) Qualified Code(s): E11.22 - Type 2 diabetes mellitus with diabetic chronic kidney disease; N18.3 - Chronic kidney disease, stage 3 (moderate); N18.3 - Chronic kidney disease, stage 3 (moderate); Z79.4 - terminal gauger (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; Z79.4 - [facility] (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; Z79.4 - terminal gauger (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; Z79.4 - terminal gauger (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 (4) DVT prophylaxis Current Visit: Yes Status: Acute Assessment and plan: Subcutaneous heparin (5) Hyperkalemia Current Visit: Yes Status: Resolved Assessment and plan: Potassium 5.3. No EKG or telemetry changes. Patient having occasional PVCs. - Time Spent With Patient Total time spent is greater than 50% in coordination of care (as documented) at patient's floor/unit and/or counseling patient: - Subjective Interval history: Patient is lying in bed. Comfortable. Denies any chest pain. No shortness of breath. She reports feeling cold. No chills or rigors. - Constitutional Vitals: Temp Pulse Resp BP Pulse Ox 98.1 F 92 16 120/58 99 11/16/17 12:53 11/16/17 12:53 11/16/17 12:53 11/16/17 12:53 11/16/17 12:53 General appearance: Present: cooperative, mild distress, A&O X 3, answers questions appropriately - Eye Eye exam: Present: EOMI, PERRL, conjuntiva pink, sclera anicteric - Neck Neck exam general surgery: Present: supple, trachea midline. Absent: lymphadenopathy - Respiratory Respiratory exam: Present: CTAB. Absent: accessory muscle use, rales, rhonchi, wheezes - Cardiovascular Cardiovascular exam: Present: RRR, +S1, +S2. Absent: diastolic murmur, gallop, rubs, systolic murmur - GI/Abdominal GI/Abdominal exam: Present: normal bowel sounds, soft, no peritoneal signs. Absent: distended, tenderness - Extremities Exam Extremities exam: Present: warm, radial pulses palpable and symmetrical. Absent : calf tenderness, cyanotic, pedal edema - Neurological Exam Neurological exam: Present: alert, oriented X3, no focal deficits. Absent: facial droop, speech deficit - Skin Skin exam: Present: dry, intact Internal Medicine: Result - Labs CBC & Chem 7: 11/16/17 03:20 11/16/17 07:44 Labs: Short CBC 11/16/17 Range/Units 03:20 WBC 8.3 (4.3-11.1) K/mcL Hgb 9.0 L (11.5-15.4) g/dL Hct 27.4 L (35.3-44.9) % Plt Count 406 H (140-400) K/mcL BMP 11/16/17 11/16/17 03:20 07:44 Sodium 131 L Potassium 6.6 H* 5.3 H Chloride 99 Carbon Dioxide 25 BUN 80 H Creatinine 3.83 H Glucose 334 H Calcium 8.4 L Consult Discharge Plan - Plan Referrals: Macario Diallo MD [Primary Care Provider] -
[2017-11-16] MEDS ORDERED: cefTRIAXone 1,000 MG in Water for inj. (sterile) 20 ML 10 ML IVP SCH (18:00)
[2017-11-16] MEDS ORDERED: *HR* Heparin 5,000 UNIT/ML VIAL SQ SCH (18:00)
[2017-11-16] MEDS: cefTRIAXone 1,000 MG in Water for inj. (sterile) 20 ML 10 ML IVP SCH (18:10)
[2017-11-16] MEDS: *HR* Heparin 5,000 UNIT/ML VIAL SQ SCH (18:10)
[2017-11-16] MEDS: Gabapentin 100 MG CAPSULE PO SCH (21:19)
[2017-11-16] MEDS: Insulin DETEMIR 100 UNIT/ML X5UNITS SQ SCH (21:24)
[2017-11-17] MEDS: *HR* Heparin 5,000 UNIT/ML VIAL SQ SCH ×2 (05:52→17:19)
[2017-11-17] MEDS: Insulin LISPRO 300 UNITS/3 ML VIAL SQ SCH ×4 (08:40→20:15)
[2017-11-17] MEDS: Aspirin Enteric Coated 81 MG Tablet PO SCH (09:00)
[2017-11-17] MEDS: Gabapentin 100 MG CAPSULE PO SCH ×2 (09:00→20:13)
[2017-11-17] MEDS: Insulin DETEMIR 100 UNIT/ML X5UNITS SQ SCH (09:45)
--- NOTE | 2017-11-17 10:27 | Internal Med Progress Note ---
Date of Encounter: 11/17/17 Time of Encounter: 10:25 - Assessment and plan (1) Acute kidney injury superimposed on chronic kidney disease Current Visit: Yes Status: Acute Assessment and plan: With underlying chronic kidney disease stage IV. Improving. Follow renal function. Nephrology input appreciated. (2) UTI (urinary tract infection) Current Visit: Yes Status: Acute Assessment and plan: Patient being treated with ceftriaxone. Urine culture pending. Qualifiers: Urinary tract infection type: acute cystitis Hematuria presence: with hematuria Qualified Code(s): N30.01 - Acute cystitis with hematuria (3) Diabetes mellitus Current Visit: Yes Status: Chronic Assessment and plan: Hypoglycemic episode this morning. We will continue to monitor blood sugars. Decrease long-acting insulin coverage. Qualifiers: Diabetes mellitus type: type 2 Diabetes mellitus bed bug exterminator insulin use: with bed bug exterminator use Diabetes mellitus complication status: with kidney complications Diabetes mellitus complication detail: with chronic kidney disease Chronic kidney disease stage: stage 3 (moderate) Qualified Code(s): E11.22 - Type 2 diabetes mellitus with diabetic chronic kidney disease; N18.3 - Chronic kidney disease, stage 3 (moderate); N18.3 - Chronic kidney disease, stage 3 (moderate); Z79.4 - intermediate accountant (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; Z79.4 - halfway (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; Z79.4 - intermediate accountant (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; Z79.4 - halfway (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 (4) DVT prophylaxis Current Visit: Yes Status: Acute Assessment and plan: With subcutaneous heparin (5) Hyperkalemia Current Visit: Yes Status: Resolved (6) Hyponatremia Current Visit: Yes Status: Chronic Assessment and plan: Chronic hyponatremia. Sodium levels are at her baseline. - Time Spent With Patient Total time spent is greater than 50% in coordination of care (as documented) at patient's floor/unit and/or counseling patient: - Subjective Interval history: Patient complains of weakness and sweating this morning. She was found to be hypoglycemic and has been given orange juice with improvement in her blood sugars. She is now feeling a little bit better. Denies any headaches. No chest pain. No nausea or vomiting. - Constitutional Vitals: Temp Pulse Resp BP Pulse Ox 97.5 F L 102 16 114/65 95 11/17/17 07:51 11/17/17 07:51 11/17/17 07:51 11/17/17 07:51 11/17/17 07:51 General appearance: Present: cooperative, mild distress, A&O X 3, answers questions appropriately - Neck Neck exam general surgery: Present: supple, trachea midline. Absent: lymphadenopathy - Respiratory Respiratory exam: Present: CTAB. Absent: accessory muscle use, rales, rhonchi, wheezes - Cardiovascular Cardiovascular exam: Present: RRR, +S1, +S2. Absent: diastolic murmur, gallop, rubs, systolic murmur - GI/Abdominal GI/Abdominal exam: Present: normal bowel sounds, soft, no peritoneal signs. Absent: distended, tenderness - Extremities Exam Extremities exam: Present: warm, radial pulses palpable and symmetrical. Absent : calf tenderness, cyanotic, pedal edema Internal Medicine: Result - Labs CBC & Chem 7: 11/16/17 03:20 11/16/17 13:25 Labs: BMP 11/16/17 13:25 Potassium 4.7 Consult Discharge Plan - Plan Referrals: Macario Diallo MD [Primary Care Provider] -
[2017-11-17 11:40] LABS: Calcium 8.6 mg/dL (8.6-10.3); Potassium 3.8 mEq/L (3.5-5.1)
[2017-11-17] MEDS: cefTRIAXone 1,000 MG in Water for inj. (sterile) 20 ML 10 ML IVP SCH (17:19)
[2017-11-17] MEDS ORDERED: Insulin DETEMIR 100 UNIT/ML X5UNITS SQ SCH (21:00)
--- NOTE | 2017-11-17 23:29 | Nephrology Progress Note ---
Date of Encounter: 11/17/17 Time of Encounter: 12:00 - Assessment and Plan (1) MERNA (acute kidney injury) Status: Acute SCr improving at 3.59, GFR 12 UOP good at 1625cc in the past 24hrs, will continue IVF for now No acute indication for WHITE SUGAR SYRUP OPERATOR at this time [place] to avoid nephrotoxins if possible (2) UTI (urinary tract infection) Status: Acute per primary team Qualifiers: Urinary tract infection type: acute cystitis Hematuria presence: with hematuria Qualified Code(s): N30.01 - Acute cystitis with hematuria (3) Hyperkalemia Status: Resolved resolved (4) Hyponatremia Status: Chronic sodium improving at 133 with IVF, NS Subjective Interval history: Pt seen and examined feeling better, no new issues Objective - Vital Signs Vital signs: Vital Signs Temp Pulse Resp BP Pulse Ox 11/17/17 22:41 99.5 F 82 20 138/65 94 11/17/17 19:06 98.3 F 87 19 124/68 95 11/17/17 15:30 97.4 F L 82 16 134/69 98 11/17/17 10:50 97.4 F L 77 19 105/62 98 11/17/17 07:51 97.5 F L 102 16 114/65 95 11/17/17 03:09 98.7 F 89 16 108/58 98 Intake and Output 11/17/17 11/17/17 11/17/17 07:59 15:59 23:59 Intake Total 720 / 720 Output Total 900 / 900 500 / 500 1150 / 1150 Balance -900 / -900 220 / 220 -1150 / -1150 Intake: Oral 720 / 720 Output: Catheter 900 / 900 500 / 500 1150 / 1150 Other: Percent of Meal Consumed 100% Weight 56 kg Blood Glucose* 263 336 Patient Weight 11/17/17 23:59 Weight 56 kg - General Appearance General appearance: Present: chronically ill, frail EENT: Present: ATNC, mucous membranes moist Neck: Present: no JVD, supple Respiratory: Present: clear Cardiology: Present: no edema, normal S1, normal S2 Gastrointestinal: Present: no tenderness, no guarding Integumentary: Present: warm and dry Neurologic: Present: no focal deficit Musculoskeletal: Present: no deformities Psychiatric: Present: mood/affect appropriate, cooperative - Lab 11/19/17 08:45 11/19/17 08:45 Most recent lab results Calcium 8.6 mg/dL (8.6-10.3) 11/17/17 10:38 Magnesium 1.8 mg/dL (1.6-2.6) 11/16/17 03:20 Consult Discharge Plan - Plan Instructions: Chronic Kidney Disease (DC), Potassium Content of Foods List (DC) , Diabetes Mellitus Type 2 in Adults (DC), Hyperkalemia (DC), Anemia (GEN) Referrals: Macario Diallo MD [Primary Care Provider] - 11/26/17 2:15 pm Layla Dennis MD [Partnered Physician] - 12/08/17 11:30 am () Prescriptions: Fluconazole [Diflucan] 100 mg PO DAILY #13 tablet
[2017-11-18 05:25] LABS: Basophils % 0.2 %; Eosinophils # 0.2 K/mcL (0.0-0.6); Eosinophils % 2.1 %; Hematocrit 25.3 % (35.3-44.9); Hemoglobin 8.2 g/dL (11.5-15.4); Immature Granulocytes % 0.8 % (0-4); Lymphocytes # 2.3 K/mcL (0.6-4.6); Lymphocytes % 22.8 %; Mean Corpuscular HGB Conc 32.4 g/dL (31.6-35.5); Mean Corpuscular Hemoglobin 27.8 pg (28.0-33.3); Mean Corpuscular Volume 85.8 fL (83.0-100.0); Mean Platelet Volume 9.1 fL (9.4-12.4); Monocytes # 0.9 K/mcL (0.0-1.3); Monocytes % 8.7 %; Neutrophils # 6.6 K/mcL (1.6-8.9); Platelet Count 391 K/mcL (140-400); Red Blood Count 2.95 M/mcL (3.82-4.97); Red Cell Distribution Width 14.2 % (11.5-14.5); Segmented Neutrophils % 65.4 %
[2017-11-18 05:42] LABS: Calcium 8.5 mg/dL (8.6-10.3)
[2017-11-18] MEDS: *HR* Heparin 5,000 UNIT/ML VIAL SQ SCH ×2 (05:49→16:48)
[2017-11-18] MEDS: Insulin LISPRO 300 UNITS/3 ML VIAL SQ SCH ×3 (09:05→16:48)
[2017-11-18] MEDS: Gabapentin 100 MG CAPSULE PO SCH ×2 (09:05→21:35)
[2017-11-18] MEDS: Aspirin Enteric Coated 81 MG Tablet PO SCH (09:06)
--- NOTE | 2017-11-18 15:46 | Internal Med Progress Note ---
Date of Encounter: 11/18/17 Time of Encounter: 11:20 - Assessment and plan (1) Acute kidney injury superimposed on chronic kidney disease Current Visit: Yes Status: Acute Assessment and plan: Acute kidney injury on chronic kidney disease stage IV. Renal function remained stable. Nephrology following. Discussed plan of care with nephrology. They recommended continuing inpatient care for another day and reevaluate him tomorrow. Plan for discharge tomorrow if renal function improves. Continue gentle IV hydration. (2) UTI (urinary tract infection) Current Visit: Yes Status: Acute Assessment and plan: Negative cultures. Complete 5 day antibiotic course Qualifiers: Urinary tract infection type: acute cystitis Hematuria presence: with hematuria Qualified Code(s): N30.01 - Acute cystitis with hematuria (3) Diabetes mellitus Current Visit: Yes Status: Chronic Assessment and plan: Blood sugars remain elevated. Continue diabetic diet. Will increase sliding scale coverage and also increase Levemir dosage. Qualifiers: Diabetes mellitus type: type 2 Diabetes mellitus senior living insulin use: with senior living use Diabetes mellitus complication status: with kidney complications Diabetes mellitus complication detail: with chronic kidney disease Chronic kidney disease stage: stage 3 (moderate) Qualified Code(s): E11.22 - Type 2 diabetes mellitus with diabetic chronic kidney disease; N18.3 - Chronic kidney disease, stage 3 (moderate); N18.3 - Chronic kidney disease, stage 3 (moderate); Z79.4 - retirement (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; Z79.4 - predatory animal exterminator (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; Z79.4 - predatory animal exterminator (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; Z79.4 - retirement (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 (4) DVT prophylaxis Current Visit: Yes Status: Acute Assessment and plan: On subcutaneous heparin (5) Hyperkalemia Current Visit: Yes Status: Resolved (6) Hyponatremia Current Visit: Yes Status: Chronic Assessment and plan: Sodium 130. Chronic hyponatremia. Continue gentle IV hydration. (7) Anemia in chronic renal disease Current Visit: Yes Status: Chronic Assessment and plan: Hemoglobin 8.2. Due to chronic kidney disease. Likely exacerbated by hemodilution with IV hydration. We will monitor blood counts. Qualifiers: Chronic kidney disease stage: stage 4 (severe) Qualified Code(s): N18.4 - Chronic kidney disease, stage 4 (severe); D63.1 - Anemia in chronic kidney disease; D63.1 - Anemia in chronic kidney disease - Time Spent With Patient Total time spent is greater than 50% in coordination of care (as documented) at patient's floor/unit and/or counseling patient: - Subjective Interval history: Patient doing well this morning. Denies any pain at this time. She is reluctant to go home. She does not wish to go to rehabilitation. She says she will try and be compliant with recommendations from nephrology. - Constitutional Vitals: Temp Pulse Resp BP Pulse Ox 97.8 F 73 14 129/63 97 11/18/17 14:50 11/18/17 14:50 11/18/17 14:50 11/18/17 14:50 11/18/17 14:50 General appearance: Present: cooperative, mild distress, A&O X 3, answers questions appropriately - Eye Eye exam: Present: EOMI, PERRL, conjuntiva pink, sclera anicteric - Respiratory Respiratory exam: Present: CTAB. Absent: accessory muscle use, rales, rhonchi, wheezes - Cardiovascular Cardiovascular exam: Present: RRR, +S1, +S2. Absent: diastolic murmur, gallop, rubs, systolic murmur - GI/Abdominal GI/Abdominal exam: Present: normal bowel sounds, soft, no peritoneal signs. Absent: distended, tenderness - Extremities Exam Extremities exam: Present: warm, radial pulses palpable and symmetrical. Absent : calf tenderness, cyanotic, pedal edema - Skin Skin exam: Present: dry, intact, pallor Internal Medicine: Result - Labs CBC & Chem 7: 11/18/17 04:19 11/18/17 04:19 Labs: Short CBC 11/18/17 Range/Units 04:19 WBC 10.1 (4.3-11.1) K/mcL Hgb 8.2 L (11.5-15.4) g/dL Hct 25.3 L (35.3-44.9) % Plt Count 391 (140-400) K/mcL Neutrophils # 6.6 (1.6-8.9) K/mcL BMP 11/18/17 04:19 Sodium 130 L Potassium 4.0 Chloride 97 L Carbon Dioxide 25 BUN 72 H Creatinine 3.34 H Glucose 250 H Calcium 8.5 L Consult Discharge Plan - Plan Referrals: Macario Diallo MD [Primary Care Provider] -
[2017-11-18] MEDS ORDERED: Insulin LISPRO 300 UNITS/3 ML VIAL SQ SCH (15:50)
[2017-11-18] MEDS ORDERED: traMADol 50 MG TABLET PO PRN (16:05)
[2017-11-18] MEDS: cefTRIAXone 1,000 MG in Water for inj. (sterile) 20 ML 10 ML IVP SCH (16:46)
[2017-11-18] MEDS: 0.9 % Sodium Chloride 1,000 ML IVC SCH (16:46)
[2017-11-18] MEDS ORDERED: Insulin DETEMIR 100 UNIT/ML X5UNITS SQ SCH (21:00)
--- NOTE | 2017-11-18 22:40 | Nephrology Progress Note ---
Date of Encounter: 11/18/17 Time of Encounter: 12:00 - Assessment and Plan (1) MERNA (acute kidney injury) Current Visit: Yes Status: Acute SCr improving at 3.34 GFR 13cbut not yet at baseline, will wait another today to retun to baseline. Concerns persist about recurrent hospital stays. Would benefit from rehab/ECF but pt is refusing this UOP good at 2550cc in the past 24hrs, will continue IVF for now No acute indication for MACHINE DEBURRER at this time [place] to avoid nephrotoxins if possible (2) UTI (urinary tract infection) Current Visit: Yes Status: Acute per primary team Qualifiers: Urinary tract infection type: acute cystitis Hematuria presence: with hematuria Qualified Code(s): N30.01 - Acute cystitis with hematuria (3) Hyperkalemia Current Visit: Yes Status: Chronic resolved (4) Hyponatremia Current Visit: Yes Status: Chronic sodium slightly decreased at 130 with IVF, NS Subjective Interval history: Pt seen and examined wanting to go home. Feels better overall. Objective - Vital Signs Vital signs: Vital Signs Temp Pulse Resp BP Pulse Ox 11/18/17 18:52 98.3 F 68 16 127/70 100 11/18/17 14:50 97.8 F 73 14 129/63 97 11/18/17 11:10 97.9 F 74 14 123/64 97 11/18/17 07:24 98 F 78 15 118/67 97 11/18/17 04:32 98.7 F 81 15 112/55 93 11/17/17 22:41 99.5 F 82 20 138/65 94 Intake and Output 11/18/17 11/18/17 11/18/17 07:59 15:59 23:59 Intake Total 480 / 480 240 / 240 Output Total 700 / 700 950 / 950 900 / 900 Balance -700 / -700 -470 / -470 -660 / -660 Intake: Oral 480 / 480 240 / 240 Output: Catheter 700 / 700 950 / 950 900 / 900 Other: Meal Breakfast Dinner Percent of Meal Consumed 90% 10% Stool Size Moderate Small Small Stool Consistency loose loose loose soft Stool Characteristics Pasty Pasty Stool Color Brown Brown Ronnie Colored # Bowel Movements 1 # Bowel Movement Diapers 1 1 Weight 58.5 kg Blood Glucose* 220 324 389 Patient Weight 11/18/17 23:59 Weight 58.5 kg - General Appearance General appearance: Present: chronically ill, frail EENT: Present: ATNC, mucous membranes moist Neck: Present: no JVD, supple Respiratory: Present: clear Cardiology: Present: no edema, normal S1, normal S2 Gastrointestinal: Present: no tenderness, no guarding Integumentary: Present: warm and dry Neurologic: Present: no focal deficit Musculoskeletal: Present: no deformities Psychiatric: Present: mood/affect appropriate - Lab 11/18/17 04:19 11/18/17 04:19 Most recent lab results Calcium 8.5 mg/dL (8.6-10.3) L 11/18/17 04:19 Magnesium 1.8 mg/dL (1.6-2.6) 11/16/17 03:20 Consult Discharge Plan - Plan Referrals: Macario Diallo MD [Primary Care Provider] -
[2017-11-19] MEDS: *HR* Heparin 5,000 UNIT/ML VIAL SQ SCH (04:49)
[2017-11-19 06:36] VITALS: BP 148/69
[2017-11-19] MEDS ORDERED: Insulin DETEMIR 100 UNIT/ML X5UNITS SQ SCH (07:45)
[2017-11-19] MEDS: Aspirin Enteric Coated 81 MG Tablet PO SCH (08:38)
[2017-11-19] MEDS: Gabapentin 100 MG CAPSULE PO SCH (08:39)
[2017-11-19] MEDS: Insulin LISPRO 300 UNITS/3 ML VIAL SQ SCH ×4 (08:40→12:03)
[2017-11-19] MEDS: 0.9 % Sodium Chloride 1,000 ML IVC SCH (08:42)
[2017-11-19 09:07] LABS: Basophils % 0.4 %; Eosinophils # 0.4 K/mcL (0.0-0.6); Eosinophils % 4.4 %; Hemoglobin 8.5 g/dL (11.5-15.4); Immature Granulocytes % 1.1 % (0-4); Mean Corpuscular HGB Conc 31.5 g/dL (31.6-35.5); Mean Corpuscular Hemoglobin 27.4 pg (28.0-33.3); Mean Corpuscular Volume 87.1 fL (83.0-100.0); Mean Platelet Volume 9.1 fL (9.4-12.4); Monocytes # 0.8 K/mcL (0.0-1.3); Monocytes % 9.5 %; Neutrophils # 4.9 K/mcL (1.6-8.9); Nucleated Red Blood Cells 0.2 /100 WBC (0); Platelet Count 390 K/mcL (140-400); Red Cell Distribution Width 13.9 % (11.5-14.5); Segmented Neutrophils % 59.6 %
[2017-11-19 09:27] LABS: Calcium 8.5 mg/dL (8.6-10.3); Potassium 4.9 mEq/L (3.5-5.1)
[2017-11-19] MEDS ORDERED: Fluconazole 100 MG TABLET PO ONE (11:03)
--- NOTE | 2017-11-19 11:05 | Discharge Summary ---
- NOTES TO OUTPATIENT PROVIDER Notes to Outpatient Provider: Patient admitted for acute kidney injury on chronic kidney disease stage IV. With hyperkalemia. Treated with IV fluids with improvement in renal function. The patient has trouble complying with recommendations from nephrology regarding her diet and fluid intake. Stressed importance of following recommendations. She also does not wish to go to a rehabilitation although I think that she will benefit from increased nursing care. Would recommend checking basic panel every week. Also diagnosed with candiduria. Patient being discharged on fluconazole to treat this. Date of Encounter: 11/19/17 Time of Encounter: 11:00 - Discharge Diagnosis (1) Acute kidney injury superimposed on chronic kidney disease Priority: Primary Status: Acute (2) UTI (urinary tract infection) Priority: Secondary Status: Acute Comments: Gricelda Qualifiers: Urinary tract infection type: acute cystitis Hematuria presence: with hematuria Qualified Code(s): N30.01 - Acute cystitis with hematuria (3) Diabetes mellitus Priority: Secondary Status: Chronic Qualifiers: Diabetes mellitus type: type 2 Diabetes mellitus shear tender insulin use: with fci use Diabetes mellitus complication status: with kidney complications Diabetes mellitus complication detail: with chronic kidney disease Chronic kidney disease stage: stage 3 (moderate) Qualified Code(s): E11.22 - Type 2 diabetes mellitus with diabetic chronic kidney disease; N18.3 - Chronic kidney disease, stage 3 (moderate); N18.3 - Chronic kidney disease, stage 3 (moderate); Z79.4 - gum sprayer (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; Z79.4 - shelter (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; Z79.4 - shelter (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; Z79.4 - gum sprayer (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 (4) DVT prophylaxis Priority: Secondary Status: Acute (5) Hyperkalemia Priority: Secondary Status: Resolved (6) Hyponatremia Priority: Secondary Status: Chronic (7) Anemia in chronic renal disease Priority: Secondary Status: Chronic Qualifiers: Chronic kidney disease stage: stage 4 (severe) Qualified Code(s): N18.4 - Chronic kidney disease, stage 4 (severe); D63.1 - Anemia in chronic kidney disease; D63.1 - Anemia in chronic kidney disease Hospital course: Ms. Lacy is a 72 year old female patient with a history of chronic kidney disease stage IV, diabetes mellitus type 2, hypertension who has had recurrent hospitalizations here with acute kidney injury on chronic kidney disease, hyperkalemia presented to the ER with complaints of nausea and vomiting. On arrival to the ER, she was found to have hyperkalemia again and her renal function has again worsened. She has been recommended to increase her fluid intake and has also been recommended to go to skilled rehabilitation for rehabilitation as she has had recurrent hospitalizations here but she has so far refused to do so. She was given temporizing measures for her hyperkalemia and IV fluids with improvement in her renal function and hyperkalemia. She has since then been doing well overall. She still does not wish to go to a skilled rehabilitation. She has also refused insulin here and her blood sugars have been elevated. She did receive her insulin this morning and says that she will take her insulin as prescribed when she gets home. She understands the risks of not following instructions as provided by her binding machine operator with regards to her fluid intake with continued worsening renal function resulting in need for hemodialysis. She expressed understanding. She will be discharged home today with home health. I do recommend having her basic panel checked every week to monitor her renal function and potassium levels. Discharge discussed with: patient, nurse, oracle bpm consultant - Time Spent with Patient Total time spent providing and/or coordinating discharge services: Greater than 30 minutes (35 min) - Discharge Medications Prescriptions: Fluconazole [Diflucan] 100 mg PO DAILY #13 tablet Home Medications: Metoprolol [Lopressor] 12.5 mg PO BID 03/01/16 [History] Aspirin Enteric Coated [Aspirin EC] 81 mg PO DAILY 08/04/17 [History] Oxygen 2 l NS AD 08/04/17 [History] Gabapentin [Neurontin] 100 mg PO BID 09/17/17 [History] Ferrous Sulfate 325 mg PO BID 10/28/17 [History] Ondansetron HCl [Zofran] 4 mg PO TID PRN 10/28/17 [History] Pravastatin Sodium [Pravachol] 10 mg PO HS 10/28/17 [History] Cholecalciferol (Vitamin D3) [Vitamin D3] 1,000 unit PO DAILY 11/16/17 [History] Insulin Glargine,Hum.rec.anlog [Basaglar Kwikpen U-100] 40 unit SQ HS 11/16/17 [ History] Fluconazole [Diflucan] 100 mg PO DAILY #13 tablet 11/19/17 [Rx] Allergies/Adverse Reactions: 3 Allergy/AdvReac Type Severity Reaction Status Date / Time acetaminophen [From Tylenol] Allergy See Verified 11/16/17 08:20 Comments Influenza Virus Vaccines Allergy See Verified 10/27/17 21:42 Comments Date of admission: 11/15/17 22:22 Primary care physician: Macario Diallo MD Consults: 11/15/17 20:06 Consult to Nephrology [CONS] Routine Consulting Provider: Kidney Garnett/SHAINA/FARTUN/HEAVEN Reason for Consult: MERNA/Hyperkalemia/UTI Time Notified: 20:07 Call Completed: Yes Discharging clinician: Augustine Pink Anticipated date of discharge: 11/19/17 - Constitutional Vitals: Temp Pulse Resp BP Pulse Ox 98.8 F 76 16 148/69 96 11/19/17 06:35 11/19/17 06:35 11/19/17 06:35 11/19/17 06:35 11/19/17 06:35 General appearance: Present: cooperative, mild distress, A&O X 3, answers questions appropriately - Respiratory Respiratory exam: Present: CTAB. Absent: accessory muscle use, rales, rhonchi, wheezes - Cardiovascular Cardiovascular exam: Present: RRR, +S1, +S2. Absent: diastolic murmur, gallop, rubs, systolic murmur - GI/Abdominal GI/Abdominal exam: Present: normal bowel sounds, soft, no peritoneal signs. Absent: distended, tenderness - Extremities Exam Extremities exam: Present: warm, radial pulses palpable and symmetrical. Absent : calf tenderness, cyanotic, pedal edema - Neurological Exam Neurological exam: Present: alert, oriented X3, no focal deficits. Absent: facial droop, speech deficit - Skin Skin exam: Present: dry, intact - Patient Status Disposition: Home Health Service Condition: Fair Functional capacity at discharge: uses cane/walker Overall status at discharge: patient is progressing back to baseline - Discharge Instructions Instructions: Chronic Kidney Disease (DC), Potassium Content of Foods List (DC) , Diabetes Mellitus Type 2 in Adults (DC), Hyperkalemia (DC), Anemia (GEN) Follow Up With: Macario Diallo MD [Primary Care Provider] - 11/26/17 2:15 pm Layla Dennis MD [Partnered Physician] - 12/08/17 11:30 am () - Diet and Activity Activity: as per physical therapy, increase activity as tolerated Diet: low fat, low cholesterol, low salt diet, other (drink at least 2L fluids daily)
--- NOTE | 2017-11-19 11:18 | Physician Discharge Referral ---
Home Health/Hosp Referral Info Transfer to: Home Health Provider in Charge Post Discharge: PCP - Diagnosis (1) Acute kidney injury superimposed on chronic kidney disease Priority: Primary Status: Acute (2) UTI (urinary tract infection) Priority: Secondary Status: Acute (3) Diabetes mellitus Priority: Secondary Status: Chronic (4) DVT prophylaxis Priority: Secondary Status: Acute (5) Hyperkalemia Priority: Secondary Status: Resolved (6) Hyponatremia Priority: Secondary Status: Chronic (7) Anemia in chronic renal disease Priority: Secondary Status: Chronic - Respiratory Orders Smoking Cessation: Smoking cessation has been advised. For more information, call the [place] Tobacco Quit Line at 7-915-ZYIG-NOW. - Diet/Nutrition Diet/Nutrition Orders: Cardiac - Activity Activity Orders: Walker - Services Needed Following services are medically necessary services: Nursing, Home Health Aide, Physical Therapy, Occupational Therapy Home Care Orders: Basic panel every thursday. Send results to PCP and Dr. Meza - Transfer Medications Prescriptions: Fluconazole [Diflucan] 100 mg PO DAILY #13 tablet Home Medications: Metoprolol [Lopressor] 12.5 mg PO BID 03/01/16 [History] Aspirin Enteric Coated [Aspirin EC] 81 mg PO DAILY 08/04/17 [History] Oxygen 2 l NS AD 08/04/17 [History] Gabapentin [Neurontin] 100 mg PO BID 09/17/17 [History] Ferrous Sulfate 325 mg PO BID 10/28/17 [History] Ondansetron HCl [Zofran] 4 mg PO TID PRN 10/28/17 [History] Pravastatin Sodium [Pravachol] 10 mg PO HS 10/28/17 [History] Cholecalciferol (Vitamin D3) [Vitamin D3] 1,000 unit PO DAILY 11/16/17 [History] Insulin Glargine,Hum.rec.anlog [Basaglar Kwikpen U-100] 40 unit SQ HS 11/16/17 [ History] Fluconazole [Diflucan] 100 mg PO DAILY #13 tablet 11/19/17 [Rx] Allergies/Adverse Reactions: 3 Allergy/AdvReac Type Severity Reaction Status Date / Time acetaminophen [From Tylenol] Allergy See Verified 11/16/17 08:20 Comments Influenza Virus Vaccines Allergy See Verified 10/27/17 21:42 Comments Certification: Further, I certify that my clinical findings support that this patient is homebound (i.e. absences from home require considerable and taxing effort and are for medical reasons or taoism services or infrequently or short duration when for other reasons) because: Homebound Reason: Patient requires assistance of a person or device to safely leave home Attestation: My signature below is to certify that this patient is under my care and that I, or nurse practitioner, or a physician's assistant case manager working with me, has a face-to -face encounter with this patient.
--- NOTE | 2017-11-19 12:00 | Nephrology Progress Note ---
<Mirna Scanlon Curt - Last Filed: 11/19/17 12:00> Date of Encounter: 11/19/17 Time of Encounter: 11:56 - Assessment and Plan (1) MERNA (acute kidney injury) Status: Acute Kidney function back to baseline OK from a nephrology standpoint for patient to be discharged BMP in 1 week Follow up with trace clerk in 3-4 weeks Push p.o. fluids Agree patient would benefit from ECF placement UOP robust at 2950ml Avoid nephrotoxins if possible (2) Chronic kidney disease, stage IV (severe) Status: Chronic see above (3) UTI (urinary tract infection) Status: Acute per primary team Qualifiers: Urinary tract infection type: site unspecified Hematuria presence: with hematuria Qualified Code(s): N39.0 - Urinary tract infection, site not specified Subjective Principal diagnosis: MERNA, CKD stage 4, UTI Interval history: Patient seen and examined. States she is feeling well Objective - Vital Signs Vital signs: Vital Signs Temp Pulse Resp BP Pulse Ox 11/19/17 06:35 98.8 F 76 16 148/69 96 11/19/17 02:58 98 F 77 17 135/72 97 11/18/17 23:01 98 F 72 16 153/72 97 11/18/17 18:52 98.3 F 68 16 127/70 100 11/18/17 14:50 97.8 F 73 14 129/63 97 Intake and Output 11/18/17 11/19/17 11/19/17 23:59 07:59 15:59 Intake Total 240 / 240 480 / 480 2080 / 2080 Output Total 1300 / 1300 1150 / 1150 350 / 350 Balance -1060 / -1060 -670 / -670 1730 / 1730 Intake: IV Fluids 1000 / 1000 0.9 % Sodium Chloride 1,000 ML 1000 / 1000 @ 70 mls/hr IVC .[id number] [facility] Rx #:[id number] Oral 240 / 240 480 / 480 1080 / 1080 Output: Catheter 1300 / 1300 1150 / 1150 350 / 350 Other: Meal Dinner Breakfast Percent of Meal Consumed 10% 100% Stool Size Small Small Stool Consistency loose loose soft Stool Characteristics Pasty Stool Color Ronnie Colored Brown # Bowel Movement Diapers 1 1 Weight 65 kg Blood Glucose* [phone] Patient Weight 11/19/17 23:59 Weight 65 kg - General Appearance General appearance: Present: cachectic, frail EENT: Present: ATNC, mucous membranes moist, hearing intact, vision intact Neck: Present: supple Respiratory: Present: clear Cardiology: Present: no edema, normal S1, normal S2 Gastrointestinal: Present: no tenderness, no guarding Integumentary: Present: warm and dry Neurologic: Present: alert and oriented x3 Psychiatric: Present: mood/affect appropriate, cooperative - Lab 11/19/17 08:45 11/19/17 08:45 Most recent lab results Calcium 8.5 mg/dL (8.6-10.3) L 11/19/17 08:45 Magnesium 1.8 mg/dL (1.6-2.6) 11/16/17 03:20 Consult Discharge Plan - Plan Instructions: Chronic Kidney Disease (DC), Potassium Content of Foods List (DC) , Diabetes Mellitus Type 2 in Adults (DC), Hyperkalemia (DC), Anemia (GEN) Referrals: Macario Diallo MD [Primary Care Provider] - 11/26/17 2:15 pm Layla Dennis MD [Partnered Physician] - 12/08/17 11:30 am () Prescriptions: Fluconazole [Diflucan] 100 mg PO DAILY #13 tablet <Layla Dennis - Last Filed: 12/07/17 00:07> Date of Encounter: 11/19/17 - Assessment and Plan (1) MERNA (acute kidney injury) Status: Acute (2) Hyperkalemia Status: Chronic (3) Chronic kidney disease, stage IV (severe) Status: Chronic (4) Hyponatremia Status: Chronic Objective - Lab 11/19/17 08:45 11/19/17 08:45 Most recent lab results Calcium 8.5 mg/dL (8.6-10.3) L 11/19/17 08:45 Magnesium 1.8 mg/dL (1.6-2.6) 11/16/17 03:20 - Attending Attestation I examined this patient and my medical decision-making was reviewed with the Resident Physician/AUTO CLEANER. I agree with the documented findings, disposition and treatment plan as described except to the extent set forth below. Pt seen and examined eager to go home still refusing ECF but more agreeable to increasing fluid intake. Renal fxn now back to baseline with IVF and can d/c from a renal standpoint with repeat BMP within a week and followup with me within 3-4 weeks.
--- NOTE | 2017-11-20 12:18 | Electrocardiograph Report ---
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
== END 2017-11-19 12:42 | disposition home health service (06) | DRG 683 ==
LOC: EMEROO 17:51 → ICNU 17:51 → SUATTDRO 22:22 → 3BNU 11-16 12:36
PROVIDERS: ADMIT Internal Medicine; ATTEND Internal Medicine

== ENCOUNTER 2017-12-02 17:50 | Inpatient (IN) ==
[2017-12-02] MEDS ORDERED: 0.9 % Sodium Chloride 1,000 ML IVC ONE ×2 (17:54→20:53)
--- NOTE | 2017-12-02 18:04 | Emergency Department Note ---
Disposition Clinical Impression: UTI (urinary tract infection) Disposition: Still a Patient Condition: Fair Referrals: Macario Diallo MD [Primary Care Provider] - Forms: ED Satisfaction Letter General Adult HPI - General Chief complaint: ED Weakness Stated complaint: weakness, nausea Time Seen by Provider: 12/02/17 17:54 Source: patient, EMS Mode of arrival: EMS Limitations: no limitations Nursing Notes Reviewed: Yes Vital Signs Reviewed: Yes - History of Present Illness HPI Narrative: Patient presents to the ED via EMS and was seen and evaluated upon arrival. Patient presenting for her weakness and nausea. Patient lives at home with her grandson who currently has a broken foot. EMS reports that patient was feeling okay yesterday and today has been very weak, nauseated with some vomiting. Patient denies any fever, chest pain or shortness of breath. Has a Madden catheter in place that she states Dr. Meza told her to leave in place. Pain Scale: 9 - Related Data Home Medications Medication Instructions Recorded Confirmed Metoprolol [Lopressor] 12.5 mg PO BID 03/01/16 11/16/17 Aspirin Enteric Coated [Aspirin EC] 81 mg PO DAILY 08/04/17 11/16/17 Oxygen 2 l NS AD 08/04/17 11/16/17 Gabapentin [Neurontin] 100 mg PO BID 09/17/17 11/16/17 Ferrous Sulfate 325 mg PO BID 10/28/17 11/16/17 Ondansetron HCl [Zofran] 4 mg PO TID PRN 10/28/17 11/16/17 Pravastatin Sodium [Pravachol] 10 mg PO HS 10/28/17 11/16/17 Cholecalciferol (Vitamin D3) 1,000 unit PO DAILY 11/16/17 11/16/17 [Vitamin D3] Insulin Glargine,Hum.rec.anlog 40 unit SQ HS 11/16/17 11/16/17 [Basaglar Kwikpen U-100] Previous Rx's Medication Instructions Recorded Fluconazole [Diflucan] 100 mg PO DAILY #13 tablet 11/19/17 Allergies Allergy/AdvReac Type Severity Reaction Status Date / Time acetaminophen [From Tylenol] Allergy See Verified 11/16/17 08:20 Comments Influenza Virus Vaccines Allergy See Verified 10/27/17 21:42 Comments Review of Systems: As reviewed in the HPI. All other systems reviewed are negative or normal. Past Medical History - Past Medical History Attestation: Yes The following information was validated with the patient. Source: patient Medical history: Reports: non-contributory, diabetes, hyperlipidemia, hypertension, renal disease, other Surgical history: Reports: appendectomy, cholecystectomy, hysterectomy Psychiatric history: Reports: no psych history CASH APPLICATIONS ANALYST history: Reports: no CASH APPLICATIONS ANALYST history - Social History Smoking Status: Never smoker Smokeless Tobacco Status: No Alcohol use: Reports: none Drug use: Reports: none Physical Exam - General Limitations: no limitations General appearance: alert, in no apparent distress - Head Head exam: atraumatic, normocephalic, normal inspection - Eye Eye exam: Present: normal appearance, PERRL, EOMI - ENT ENT exam: mucous membranes dry - Respiratory Respiratory exam: Present: normal lung sounds bilaterally - Cardiovascular Cardiovascular exam: Present: regular rate, normal rhythm, normal heart sounds - Abdominal Exam Abdominal exam: Present: soft, tenderness. Absent: Non-Tender, distention, guarding, rebound, rigidity Abdominal tenderness: Present: epigastrium, mild - Extremities Exam Extremities exam: Absent: tenderness, pedal edema - Neurological Exam Neurological exam: Present: alert, oriented X3 - Psychiatric Psychiatric exam: Present: flat affect - Skin Skin exam: Present: warm, dry, intact, normal color Course Course Narrative: Patient presenting with weakness and vomiting. Madden catheter is already in place and has thick dirty sediment in it. Suspecting UTI. We will workup for other sources and likely admit. - Reevaluation(s) Reevaluation #1: Patient be signed out to the oncoming nighttime team, Dr. New and Andre Vital Signs Temperature 97.5 F L 12/02/17 17:53 Pulse Rate 89 12/02/17 17:53 Respiratory Rate 18 12/02/17 17:53 Blood Pressure 125/70 12/02/17 17:53 O2 Sat by Pulse Oximetry 100 12/02/17 17:53 Temperature 97.5 F L 12/02/17 17:53 Pulse Rate 84 12/02/17 18:00 Respiratory Rate 18 12/02/17 18:00 Blood Pressure 114/73 12/02/17 18:00 O2 Sat by Pulse Oximetry 100 12/02/17 18:00 Oxygen Delivery Oxygen Delivery Room Air Medical Decision Making - Medical Records Medical records reviewed: Yes I reviewed the patient's medical records. - Lab Data Lab results reviewed: Yes I reviewed the patient's lab results. Result diagrams: 12/02/17 18:03 Lab Results 12/02/17 12/02/17 Range/Units 18:03 18:03 WBC 10.4 (4.3-11.1) K/mcL RBC 3.91 (3.82-4.97) M/mcL Hgb 10.7 L (11.5-15.4) g/dL Hct 32.8 L (35.3-44.9) % MCV 83.9 (83.0-100.0) fL MCH 27.4 L (28.0-33.3) pg MCHC 32.6 (31.6-35.5) g/dL RDW 13.9 (11.5-14.5) % Plt Count 431 H (140-400) K/mcL MPV 8.5 L (9.4-12.4) fL Immature Gran % 0.7 (0-4) % Seg Neutrophils % 60.5 % Lymphocytes % 29.4 % Monocytes % 5.2 % Eosinophils % 3.7 % Basophils % 0.5 % Neutrophils # 6.3 (1.6-8.9) K/mcL Lymphocytes # 3.1 (0.6-4.6) K/mcL Monocytes # 0.5 (0.0-1.3) K/mcL Eosinophils # 0.4 (0.0-0.6) K/mcL Basophils # 0.1 (0.0-0.2) K/mcL PT 12.8 H (9.4-12.1) Seconds INR 1.2 APTT 37.3 H (26.0-36.0) Seconds - Radiology Data Radiology results reviewed: Yes I reviewed the patient's radiology results. - EKG Data EKG #1 EKG attestation: Yes I reviewed and interpreted this EKG. EKG results narrative: Sinus rhythm with sinus arrhythmia, rate 87, DE interval 242, first-degree AV block, left anterior fascicular block, no acute ischemic changes
--- NOTE | 2017-12-02 18:05 | Emergency Department Note ---
Disposition Clinical Impression: UTI (urinary tract infection) Disposition: Still a Patient Condition: Fair Referrals: Macario Diallo MD [Primary Care Provider] - Forms: ED Satisfaction Letter General Adult HPI - General Chief complaint: ED Weakness Stated complaint: weakness, nausea Time Seen by Provider: 12/02/17 17:54 Source: patient, EMS Limitations: no limitations Nursing Notes Reviewed: Yes Vital Signs Reviewed: Yes - History of Present Illness Pain Scale: 9 - Related Data Home Medications Medication Instructions Recorded Confirmed Metoprolol [Lopressor] 12.5 mg PO BID 03/01/16 11/16/17 Aspirin Enteric Coated [Aspirin EC] 81 mg PO DAILY 08/04/17 11/16/17 Oxygen 2 l NS AD 08/04/17 11/16/17 Gabapentin [Neurontin] 100 mg PO BID 09/17/17 11/16/17 Ferrous Sulfate 325 mg PO BID 10/28/17 11/16/17 Ondansetron HCl [Zofran] 4 mg PO TID PRN 10/28/17 11/16/17 Pravastatin Sodium [Pravachol] 10 mg PO HS 10/28/17 11/16/17 Cholecalciferol (Vitamin D3) 1,000 unit PO DAILY 11/16/17 11/16/17 [Vitamin D3] Insulin Glargine,Hum.rec.anlog 40 unit SQ HS 11/16/17 11/16/17 [Basaglar Kwikpen U-100] Previous Rx's Medication Instructions Recorded Fluconazole [Diflucan] 100 mg PO DAILY #13 tablet 11/19/17 Allergies Allergy/AdvReac Type Severity Reaction Status Date / Time acetaminophen [From Tylenol] Allergy See Verified 11/16/17 08:20 Comments Influenza Virus Vaccines Allergy See Verified 10/27/17 21:42 Comments Past Medical History - Past Medical History Medical history: Reports: non-contributory, diabetes, hyperlipidemia, hypertension, renal disease, other Surgical history: Reports: appendectomy, cholecystectomy, hysterectomy Psychiatric history: Reports: no psych history PLANNED GIVING OFFICER history: Reports: no PLANNED GIVING OFFICER history - Social History Smoking Status: Never smoker Smokeless Tobacco Status: No Alcohol use: Reports: none Drug use: Reports: none Physical Exam - General Limitations: no limitations General appearance: alert, in no apparent distress Course Vital Signs Temperature 97.5 F L 12/02/17 17:53 Pulse Rate 89 12/02/17 17:53 Respiratory Rate 18 12/02/17 17:53 Blood Pressure 125/70 12/02/17 17:53 O2 Sat by Pulse Oximetry 100 12/02/17 17:53 Temperature 97.5 F L 12/02/17 17:53 Pulse Rate 96 12/02/17 18:36 Respiratory Rate 16 12/02/17 18:36 Blood Pressure 107/74 12/02/17 18:36 O2 Sat by Pulse Oximetry 100 12/02/17 18:36 Oxygen Delivery Oxygen Delivery Room Air Medical Decision Making - MDM Narrative Medical decision making narrative: This documentation is done with the assistance of Dragon dictation. Despite efforts made to ensure accuracy, there may be inaccuracies in client project coordinator or spelling and typographical errors. Patient presents with weakness and not feeling well for the last 24 hours no focal deficits. She has an indwelling Madden catheter which has cloudy urine. Subjective fevers at home some abdominal discomfort but nonsurgical abdomen no chest pain. We will do a workup on her she will need admission. And we will sign her out to the evening ER physician Dr. New for further management and disposition. Chest X-Ray 12/02/17 17:55 IMPRESSION: 1. No acute radiographic finding to account for patient's left-sided chest wall pain. D/ / Bruce Monet MD / Bruce Monet MD Interpreting Provider: Bruce Monet MD Head CT 12/02/17 17:55 IMPRESSION: No acute intracranial abnormality. D/ / Narayan Unger MD / Narayan Unger MD Interpreting Provider: Narayan Unger MD 1853 hrs.: Patient's creatinine is elevated at 5.88 and 5.3 before potassium is elevated also were negative her hyperkalemia treatment speak with nephrology she states Dr. Meza and she will need admission. We will sign her out to the evening ER physician Dr. New for further management and disposition. Impressions weakness rule out UTI hyperkalemia and acute on chronic renal failure. Her critical care time excluding separately billable procedures is 40 minutes. - Lab Data Result diagrams: 12/02/17 18:03 12/02/17 18:03 Lab Results 12/02/17 12/02/17 12/02/17 Range/Units 18:03 18:03 18:03 WBC 10.4 (4.3-11.1) K/mcL RBC 3.91 (3.82-4.97) M/mcL Hgb 10.7 L (11.5-15.4) g/dL Hct 32.8 L (35.3-44.9) % MCV 83.9 (83.0-100.0) fL MCH 27.4 L (28.0-33.3) pg MCHC 32.6 (31.6-35.5) g/dL RDW 13.9 (11.5-14.5) % Plt Count 431 H (140-400) K/mcL MPV 8.5 L (9.4-12.4) fL Immature Gran % 0.7 (0-4) % Seg Neutrophils % 60.5 % Lymphocytes % 29.4 % Monocytes % 5.2 % Eosinophils % 3.7 % Basophils % 0.5 % Neutrophils # 6.3 (1.6-8.9) K/mcL Lymphocytes # 3.1 (0.6-4.6) K/mcL Monocytes # 0.5 (0.0-1.3) K/mcL Eosinophils # 0.4 (0.0-0.6) K/mcL Basophils # 0.1 (0.0-0.2) K/mcL PT 12.8 H (9.4-12.1) Seconds INR 1.2 APTT 37.3 H (26.0-36.0) Seconds Sodium 123 L (136-145) mEq/L Potassium 8.2 H* (3.5-5.1) mEq/L Chloride 94 L (98-107) mEq/L Carbon Dioxide 18 L (23-29) mEq/L BUN 119 H (8-23) mg/dL Creatinine 5.88 H (0.60-1.20) mg/dL Est GFR ( Amer) 9 L (> 60) Est GFR (Non-Af Amer) 7 L (> 60) BUN/Creatinine Ratio 20 (6-26) Glucose 157 H (70-105) mg/dL Calculated Osmolality 297 (280-300) Lactic Acid (0.5-2.2) mmol/L Calcium 9.7 (8.6-10.3) mg/dL Phosphorus 7.0 H (2.7-4.5) mg/dL Magnesium 2.2 (1.6-2.6) mg/dL Total Bilirubin 0.2 L (0.3-1.0) mg/dL Direct Bilirubin 0.0 (0.0-0.2) mg/dL Indirect Bilirubin 0.2 (0.0-1.2) mg/dL AST 8 L (13-39) Units/L ALT 7 (7-52) Units/L Alkaline Phosphatase 140 H (34-104) Units/L Troponin I < 0.03 (< 0.04) ng/mL Serum Total Protein 10.2 H (6.4-8.9) g/dL Albumin 3.7 (3.5-5.7) g/dL Globulin 6.5 H (2.4-3.5) g/dL Albumin/Globulin Ratio 0.6 L (1.1-2.2) Lipase 39 (11-82) Units/L // Range/Units 18:03 WBC (4.3-11.1) K/mcL RBC (3.82-4.97) M/mcL Hgb (11.5-15.4) g/dL Hct (35.3-44.9) % MCV (83.0-100.0) fL MCH (28.0-33.3) pg MCHC (31.6-35.5) g/dL RDW (11.5-14.5) % Plt Count (140-400) K/mcL MPV (9.4-12.4) fL Immature Gran % (0-4) % Seg Neutrophils % % Lymphocytes % % Monocytes % % Eosinophils % % Basophils % % Neutrophils # (1.6-8.9) K/mcL Lymphocytes # (0.6-4.6) K/mcL Monocytes # (0.0-1.3) K/mcL Eosinophils # (0.0-0.6) K/mcL Basophils # (0.0-0.2) K/mcL PT (9.4-12.1) Seconds INR APTT (26.0-36.0) Seconds Sodium (136-145) mEq/L Potassium (3.5-5.1) mEq/L Chloride (98-107) mEq/L Carbon Dioxide (23-29) mEq/L BUN (8-23) mg/dL Creatinine (0.60-1.20) mg/dL Est GFR ( Amer) (> 60) Est GFR (Non-Af Amer) (> 60) BUN/Creatinine Ratio (6-26) Glucose (70-105) mg/dL Calculated Osmolality (280-300) Lactic Acid 1.0 (0.5-2.2) mmol/L Calcium (8.6-10.3) mg/dL Phosphorus (2.7-4.5) mg/dL Magnesium (1.6-2.6) mg/dL Total Bilirubin (0.3-1.0) mg/dL Direct Bilirubin (0.0-0.2) mg/dL Indirect Bilirubin (0.0-1.2) mg/dL AST (13-39) Units/L ALT (7-52) Units/L Alkaline Phosphatase (34-104) Units/L Troponin I (< 0.04) ng/mL Serum Total Protein (6.4-8.9) g/dL Albumin (3.5-5.7) g/dL Globulin (2.4-3.5) g/dL Albumin/Globulin Ratio (1.1-2.2) Lipase (11-82) Units/L Critical Care Time Critical Care Time: Yes Total Critical Care Time: 40 Attestation: Excluding any separately billable procedures Attestation Statement - Attestation Attestation: I examined this patient and my medical decision-making was reviewed with the Resident Physician. I agree with the documented findings, disposition and treatment plan as described except to the extent set forth below. Patient seen and evaluated on arrival with EMS and Dr. Manrique, I agree with his evaluation and management plan, supervised the care the patient's stay.
[2017-12-02 18:13] LABS: Basophils # 0.1 K/mcL (0.0-0.2); Basophils % 0.5 %; Eosinophils # 0.4 K/mcL (0.0-0.6); Eosinophils % 3.7 %; Hematocrit 32.8 % (35.3-44.9); Hemoglobin 10.7 g/dL (11.5-15.4); Immature Granulocytes % 0.7 % (0-4); Lymphocytes # 3.1 K/mcL (0.6-4.6); Lymphocytes % 29.4 %; Mean Corpuscular HGB Conc 32.6 g/dL (31.6-35.5); Mean Corpuscular Hemoglobin 27.4 pg (28.0-33.3); Mean Corpuscular Volume 83.9 fL (83.0-100.0); Mean Platelet Volume 8.5 fL (9.4-12.4); Monocytes # 0.5 K/mcL (0.0-1.3); Monocytes % 5.2 %; Neutrophils # 6.3 K/mcL (1.6-8.9); Platelet Count 431 K/mcL (140-400); Red Blood Count 3.91 M/mcL (3.82-4.97); Red Cell Distribution Width 13.9 % (11.5-14.5); Segmented Neutrophils % 60.5 %
[2017-12-02 18:20] LABS: INR 1.2; Prothrombin Time 12.8 Seconds (9.4-12.1)
[2017-12-02] MEDS ORDERED: Ondansetron 4 MG/2 ML VIAL IVP ONE (18:21)
[2017-12-02 18:22] LABS: Activated Partial Thrombo Time 37.3 Seconds (26.0-36.0)
[2017-12-02 18:42] LABS: Troponin I < 0.03 ng/mL (< 0.04)
[2017-12-02] MEDS ORDERED: Sodium Bicarbonate 50 MEQ/50 ML VIAL IVP ONE (18:50)
[2017-12-02] MEDS ORDERED: *HR* Dextrose 50 % in Water (Syg) 50 ML SYRINGE IVP ONE (18:50)
[2017-12-02] MEDS ORDERED: Insulin Human Regular 10 UNIT in 0.9 % Sodium Chloride 10 ML IV ONE (18:50)
[2017-12-02] MEDS ORDERED: Albuterol Neb 1.25 MG/3 ML VIAL IH ONE (18:50)
[2017-12-02 18:51] LABS: Alanine Aminotransferase 7 Units/L (7-52); Albumin 3.7 g/dL (3.5-5.7); Albumin/Globulin Ratio 0.6 (1.1-2.2); Alkaline Phosphatase 140 Units/L (34-104); Aspartate Amino Transferase 8 Units/L (13-39); BUN/Creatinine Ratio 20 (6-26); Bilirubin,Indirect 0.2 mg/dL (0.0-1.2); Bilirubin,Total 0.2 mg/dL (0.3-1.0); Blood Urea Nitrogen 119 mg/dL (8-23); Calcium 9.7 mg/dL (8.6-10.3); Carbon Dioxide 18 mEq/L (23-29); Chloride 94 mEq/L (98-107); Globulin 6.5 g/dL (2.4-3.5); Glucose 157 mg/dL (70-105); Lipase 39 Units/L (11-82); Magnesium 2.2 mg/dL (1.6-2.6); Osmolality,Calculated 297 (280-300); Potassium 8.2 mEq/L (3.5-5.1); Sodium 123 mEq/L (136-145); Total Protein 10.2 g/dL (6.4-8.9); eGFR For African Americans 9 (> 60); eGFR For Non-African Americans 7 (> 60)
[2017-12-02 19:20] LABS: Bilirubin,Urine Negative (Negative); Blood,Urine Large (Negative); Clarity,Urine Turbid (Clear); Color,Urine Other (Yellow); Glucose,Urine (UA) Normal (Normal); Ketones,Urine Trace mg/dL (Negative); Leukocyte Esterase,Urine Large (Negative); Nitrite,Urine Negative (Negative); Protein,Urine >=300 mg/dL (Neg-Trace); Specific Gravity,Urine 1.018 (1.010-1.025); Urobilinogen,Urine Normal (Normal)
[2017-12-02 19:37] LABS: RBC,Urine 15-30 per hpf (0-3)
[2017-12-02 19:38] LABS: Bacteria,Urine Moderate per hpf (None-Few); Squamous Epithelial Cell,Urine Moderate per lpf (None-Few); WBC,Urine TNTC per hpf (0-3)
--- NOTE | 2017-12-02 20:14 | Emergency Department Note ---
Disposition Clinical Impression: Hyperkalemia, MERNA (acute kidney injury), Dehydration Disposition: Admitted As Inpatient Condition: Fair Time of Disposition: 20:40 General Adult HPI - General Chief complaint: ED Weakness Stated complaint: weakness, nausea Time Seen by Provider: 12/02/17 17:54 Source: patient, EMS Mode of arrival: EMS Limitations: no limitations Nursing Notes Reviewed: Yes Vital Signs Reviewed: Yes - History of Present Illness Pain Scale: 9 - Related Data Home Medications Medication Instructions Recorded Confirmed Metoprolol [Lopressor] 12.5 mg PO BID 03/01/16 12/02/17 Aspirin Enteric Coated [Aspirin EC] 81 mg PO DAILY 08/04/17 12/02/17 Oxygen 2 l NS AD 08/04/17 12/02/17 Gabapentin [Neurontin] 100 mg PO BID 09/17/17 12/02/17 Ferrous Sulfate 325 mg PO BID 10/28/17 12/02/17 Ondansetron HCl [Zofran] 4 mg PO TID PRN 10/28/17 12/02/17 Pravastatin Sodium [Pravachol] 10 mg PO HS 10/28/17 12/02/17 Cholecalciferol (Vitamin D3) 1,000 unit PO DAILY 11/16/17 12/02/17 [Vitamin D3] Insulin Glargine,Hum.rec.anlog 40 unit SQ HS 11/16/17 12/02/17 [Basaglar Kwikpen U-100] Previous Rx's Medication Instructions Recorded Fluconazole [Diflucan] 100 mg PO DAILY #13 tablet 11/19/17 Allergies Allergy/AdvReac Type Severity Reaction Status Date / Time acetaminophen [From Tylenol] Allergy See Verified 11/16/17 08:20 Comments Influenza Virus Vaccines Allergy See Verified 10/27/17 21:42 Comments Past Medical History - Past Medical History Attestation: Yes The following information was validated with the patient. Source: patient Medical history: Reports: non-contributory, diabetes, hyperlipidemia, hypertension, renal disease, other Surgical history: Reports: appendectomy, cholecystectomy, hysterectomy Psychiatric history: Reports: no psych history ASSISTANT PROFESSOR OF THEATER history: Reports: no ASSISTANT PROFESSOR OF THEATER history - Social History Smoking Status: Never smoker Smokeless Tobacco Status: No Alcohol use: Reports: none Drug use: Reports: none Physical Exam - General Limitations: no limitations General appearance: alert, in no apparent distress - Head Head exam: atraumatic, normocephalic, normal inspection - Eye Eye exam: Present: normal appearance, PERRL, EOMI - ENT ENT exam: normal exam, normal oropharynx, mucous membranes moist - Neck Neck exam: Present: normal inspection, full ROM, trachea midline - Chest Chest inspection: Present: symmetric chest wall rise, other (Tenderness palpation of left lower chest wall. No ecchymosis. No paradoxical motion.) - Respiratory Respiratory exam: Present: normal lung sounds bilaterally. Absent: respiratory distress, accessory muscle use - Cardiovascular Cardiovascular exam: Present: regular rate, normal rhythm, normal heart sounds - Abdominal Exam Abdominal exam: Present: soft, Non-Tender. Absent: tenderness, distention, guarding, rebound, rigidity, organomegaly - Extremities Exam Extremities exam: Present: normal inspection, full ROM, normal capillary refill. Absent: tenderness, pedal edema - Back Exam Back exam: Present: normal inspection, full ROM. Absent: tenderness - Neurological Exam Neurological exam: Present: alert, oriented X3 - Psychiatric Psychiatric exam: Present: normal affect, normal mood - Skin Skin exam: Present: warm, dry, intact, normal color Course Course Narrative: Patient signed out by the day shift. Please see their charting for further. On my arrival to her room patient is resting completely. Her vitals are stable. She is not tachycardic. Her EKG does show some ST depressions and inversions grossly however this was present on her previous EKG. Her report to me is that she started feeling lightheaded earlier today which is consistent with her with her potassium being elevated previously. She has had to be on dialysis before for an elevated potassium. Any distress on my exam. Her lung sounds are clear heart tones are normal. Her abdomen is soft nontender. She does have some mild tenderness to palpation of her left chest wall. Chest x- ray of this area was normal. She states she did have a fall several days ago on this area. No loss of consciousness. Her Madden was removed earlier to have it replaced due to possible urinary tract infection however we cannot replace a Madden at this time. We will attempt this again possibly needing a urology consult. Patient does not appear to be in any distress and has no suprapubic tenderness on my palpation. She has appear clinically dehydrated. We will admit patient to the hospital for new hyperkalemia as well as dehydration. She has been given Kayexalate insulin glucose and albuterol. We will admit to the hospital. - Reevaluation(s) Reevaluation #1: During Madden placement patient's blood pressure dropped. He responded to a liter of fluid. We have admitted the patient to the ICU. Her potassium had some swelling dropped to 5. Time: 21:07 Vital Signs Temperature 97.5 F L 12/02/17 17:53 Pulse Rate 89 12/02/17 17:53 Respiratory Rate 18 12/02/17 17:53 Blood Pressure 125/70 12/02/17 17:53 O2 Sat by Pulse Oximetry 100 12/02/17 17:53 Temperature 96.8 F L 12/03/17 03:22 Pulse Rate 87 12/03/17 00:00 Respiratory Rate 12 12/03/17 00:00 Blood Pressure 100/69 12/03/17 00:00 O2 Sat by Pulse Oximetry 100 12/03/17 00:00 Oxygen Delivery Oxygen Delivery Room Air Medical Decision Making - Medical Records Medical records reviewed: Yes I reviewed the patient's medical records. - Lab Data Lab results reviewed: Yes I reviewed the patient's lab results. Result diagrams: 12/03/17 03:19 12/03/17 00:14 Lab Results 12/02/17 12/02/17 12/02/17 Range/Units 18:03 18:03 18:03 WBC 10.4 (4.3-11.1) K/mcL RBC 3.91 (3.82-4.97) M/mcL Hgb 10.7 L (11.5-15.4) g/dL Hct 32.8 L (35.3-44.9) % MCV 83.9 (83.0-100.0) fL MCH 27.4 L (28.0-33.3) pg MCHC 32.6 (31.6-35.5) g/dL RDW 13.9 (11.5-14.5) % Plt Count 431 H (140-400) K/mcL MPV 8.5 L (9.4-12.4) fL Immature Gran % 0.7 (0-4) % Seg Neutrophils % 60.5 % Lymphocytes % 29.4 % Monocytes % 5.2 % Eosinophils % 3.7 % Basophils % 0.5 % Neutrophils # 6.3 (1.6-8.9) K/mcL Lymphocytes # 3.1 (0.6-4.6) K/mcL Monocytes # 0.5 (0.0-1.3) K/mcL Eosinophils # 0.4 (0.0-0.6) K/mcL Basophils # 0.1 (0.0-0.2) K/mcL PT 12.8 H (9.4-12.1) Seconds INR 1.2 APTT 37.3 H (26.0-36.0) Seconds Sodium 123 L (136-145) mEq/L Potassium 8.2 H* (3.5-5.1) mEq/L Chloride 94 L (98-107) mEq/L Carbon Dioxide 18 L (23-29) mEq/L BUN 119 H (8-23) mg/dL Creatinine 5.88 H (0.60-1.20) mg/dL Est GFR ( Amer) 9 L (> 60) Est GFR (Non-Af Amer) 7 L (> 60) BUN/Creatinine Ratio 20 (6-26) Glucose 157 H (70-105) mg/dL Est Mean Plasma Glucose mg/dl Hemoglobin A1c ( - 5.6) % Calculated Osmolality 297 (280-300) Lactic Acid (0.5-2.2) mmol/L Calcium 9.7 (8.6-10.3) mg/dL Phosphorus 7.0 H (2.7-4.5) mg/dL Magnesium 2.2 (1.6-2.6) mg/dL Total Bilirubin 0.2 L (0.3-1.0) mg/dL Direct Bilirubin 0.0 (0.0-0.2) mg/dL Indirect Bilirubin 0.2 (0.0-1.2) mg/dL AST 8 L (13-39) Units/L ALT 7 (7-52) Units/L Alkaline Phosphatase 140 H (34-104) Units/L Troponin I < 0.03 (< 0.04) ng/mL Serum Total Protein 10.2 H (6.4-8.9) g/dL Albumin 3.7 (3.5-5.7) g/dL Globulin 6.5 H (2.4-3.5) g/dL Albumin/Globulin Ratio 0.6 L (1.1-2.2) Lipase 39 (11-82) Units/L Urine Color (Yellow) Urine Clarity (Clear) Urine pH (5.0-8.0) pH Units Ur Specific [place] (1.010-1.025) Urine Protein (Neg-Trace) mg/dL Urine Glucose (UA) (Normal) mg/dL Urine Ketones (Negative) mg/dL Urine Blood (Negative) Urine Nitrite (Negative) Urine Bilirubin (Negative) Urine Urobilinogen (Normal) mg/dL Ur Leukocyte Esterase (Negative) Urine Microscopic RBC (0-3) per hpf Urine Microscopic WBC (0-3) per hpf Ur Squamous Epith Cells (None-Few) per lpf Urine Bacteria (None-Few) per hpf Ur Culture Indicated? (NO) 12/02/17 12/02/17 12/02/17 Range/Units 18:03 19:06 19:47 WBC (4.3-11.1) K/mcL RBC (3.82-4.97) M/mcL Hgb (11.5-15.4) g/dL Hct (35.3-44.9) % MCV (83.0-100.0) fL MCH (28.0-33.3) pg MCHC (31.6-35.5) g/dL RDW (11.5-14.5) % Plt Count (140-400) K/mcL MPV (9.4-12.4) fL Immature Gran % (0-4) % Seg Neutrophils % % Lymphocytes % % Monocytes % % Eosinophils % % Basophils % % Neutrophils # (1.6-8.9) K/mcL Lymphocytes # (0.6-4.6) K/mcL Monocytes # (0.0-1.3) K/mcL Eosinophils # (0.0-0.6) K/mcL Basophils # (0.0-0.2) K/mcL PT (9.4-12.1) Seconds INR APTT (26.0-36.0) Seconds Sodium 131 L (136-145) mEq/L Potassium 5.9 H D (3.5-5.1) mEq/L Chloride 101 (98-107) mEq/L Carbon Dioxide 21 L (23-29) mEq/L BUN 118 H (8-23) mg/dL Creatinine 5.56 H (0.60-1.20) mg/dL Est GFR ( Amer) 9 L (> 60) Est GFR (Non-Af Amer) 7 L (> 60) BUN/Creatinine Ratio 21 (6-26) Glucose 87 (70-105) mg/dL Est Mean Plasma Glucose mg/dl Hemoglobin A1c ( - 5.6) % Calculated Osmolality 309 H (280-300) Lactic Acid 1.0 (0.5-2.2) mmol/L Calcium 9.0 (8.6-10.3) mg/dL Phosphorus (2.7-4.5) mg/dL Magnesium (1.6-2.6) mg/dL Total Bilirubin (0.3-1.0) mg/dL Direct Bilirubin (0.0-0.2) mg/dL Indirect Bilirubin (0.0-1.2) mg/dL AST (13-39) Units/L ALT (7-52) Units/L Alkaline Phosphatase (34-104) Units/L Troponin I (< 0.04) ng/mL Serum Total Protein (6.4-8.9) g/dL Albumin (3.5-5.7) g/dL Globulin (2.4-3.5) g/dL Albumin/Globulin Ratio (1.1-2.2) Lipase (11-82) Units/L Urine Color Other A (Yellow) Urine Clarity Turbid A (Clear) Urine pH 6.0 (5.0-8.0) pH Units Ur Specific [place] 1.018 (1.010-1.025) Urine Protein >=300 H (Neg-Trace) mg/dL Urine Glucose (UA) Normal (Normal) mg/dL Urine Ketones Trace H (Negative) mg/dL Urine Blood Large H (Negative) Urine Nitrite Negative (Negative) Urine Bilirubin Negative (Negative) Urine Urobilinogen Normal (Normal) mg/dL Ur Leukocyte Esterase Large H (Negative) Urine Microscopic RBC 15-30 H (0-3) per hpf Urine Microscopic WBC TNTC H (0-3) per hpf Ur Squamous Epith Cells Moderate H (None-Few) per lpf Urine Bacteria Moderate H (None-Few) per hpf Ur Culture Indicated? YES A (NO) 12/02/17 Range/Units 19:47 WBC (4.3-11.1) K/mcL RBC (3.82-4.97) M/mcL Hgb (11.5-15.4) g/dL Hct (35.3-44.9) % MCV (83.0-100.0) fL MCH (28.0-33.3) pg MCHC (31.6-35.5) g/dL RDW (11.5-14.5) % Plt Count (140-400) K/mcL MPV (9.4-12.4) fL Immature Gran % (0-4) % Seg Neutrophils % % Lymphocytes % % Monocytes % % Eosinophils % % Basophils % % Neutrophils # (1.6-8.9) K/mcL Lymphocytes # (0.6-4.6) K/mcL Monocytes # (0.0-1.3) K/mcL Eosinophils # (0.0-0.6) K/mcL Basophils # (0.0-0.2) K/mcL PT (9.4-12.1) Seconds INR APTT (26.0-36.0) Seconds Sodium (136-145) mEq/L Potassium (3.5-5.1) mEq/L Chloride (98-107) mEq/L Carbon Dioxide (23-29) mEq/L BUN (8-23) mg/dL Creatinine (0.60-1.20) mg/dL Est GFR ( Amer) (> 60) Est GFR (Non-Af Amer) (> 60) BUN/Creatinine Ratio (6-26) Glucose (70-105) mg/dL Est Mean Plasma Glucose 203 mg/dl Hemoglobin A1c 8.7 H ( - 5.6) % Calculated Osmolality (280-300) Lactic Acid (0.5-2.2) mmol/L Calcium (8.6-10.3) mg/dL Phosphorus (2.7-4.5) mg/dL Magnesium (1.6-2.6) mg/dL Total Bilirubin (0.3-1.0) mg/dL Direct Bilirubin (0.0-0.2) mg/dL Indirect Bilirubin (0.0-1.2) mg/dL AST (13-39) Units/L ALT (7-52) Units/L Alkaline Phosphatase (34-104) Units/L Troponin I (< 0.04) ng/mL Serum Total Protein (6.4-8.9) g/dL Albumin (3.5-5.7) g/dL Globulin (2.4-3.5) g/dL Albumin/Globulin Ratio (1.1-2.2) Lipase (11-82) Units/L Urine Color (Yellow) Urine Clarity (Clear) Urine pH (5.0-8.0) pH Units Ur Specific [place] (1.010-1.025) Urine Protein (Neg-Trace) mg/dL Urine Glucose (UA) (Normal) mg/dL Urine Ketones (Negative) mg/dL Urine Blood (Negative) Urine Nitrite (Negative) Urine Bilirubin (Negative) Urine Urobilinogen (Normal) mg/dL Ur Leukocyte Esterase (Negative) Urine Microscopic RBC (0-3) per hpf Urine Microscopic WBC (0-3) per hpf Ur Squamous Epith Cells (None-Few) per lpf Urine Bacteria (None-Few) per hpf Ur Culture Indicated? (NO) - Radiology Data Radiology results reviewed: Yes I reviewed the patient's radiology results. Chest X-Ray 12/02/17 17:55 IMPRESSION: 1. No acute radiographic finding to account for patient's left-sided chest wall pain. D/ / Bruce Monet MD / Bruce Monet MD Interpreting Provider: Bruce Monet MD Head CT 12/02/17 17:55 IMPRESSION: No acute intracranial abnormality. D/ / Narayan Unger MD / Narayan Unger MD Interpreting Provider: Narayan Unger MD Attestation Statement - Attestation Attestation: I examined this patient and my medical decision-making was reviewed with the Resident Physician. I agree with the documented findings, disposition and treatment plan as described except to the extent set forth below. This was a sign O patient that I received with the disposition awaiting results of the urinalysis. The patient does have chronic issues with obtaining urine sample from indwelling Madden catheters. She is found to be in acute renal failure with hyperkalemia. Her EKG shows no QRS widening and no significant EKG changes which would correlate to the serum level potassium which was resulted. The patient received Kayexalate, IV fluids, bicarbonate, albuterol, dextrose, insulin. This was therapy provided prior to my arrival. The patient has had stable vital signs as reported at sign out. The previous providers have consulted with nephrology with no recommendations at this point for emergent dialysis. Plan to admit the hospitalist service, repeat metabolic panel, I would defer giving calcium unless there is significant QRS widening or EKG abnormalities as this is a short acting medication. The patient did have mild hypotension which responded to IV fluids. We discussed the case with the on- call hospitalists and we will proceed with admission to the intensive care unit for further management of hyperkalemia in the setting of acute renal failure. i spent greater than 35 minutes of critical care time resuscitating this acutely ill patient suffering from hyperkalemia. This was excluding billable procedures.
[2017-12-02] MEDS ORDERED: Ibuprofen 600 MG TABLET PO ONE (20:19)
[2017-12-02 20:32] LABS: Potassium 5.9 mEq/L (3.5-5.1)
[2017-12-02] MEDS ORDERED: 0.9 % Sodium Chloride 1,000 ML ONE (20:53)
--- NOTE | 2017-12-02 20:58 | Event Note ---
Date of Encounter: 12/03/17 Time of Encounter: 20:51 Patient was seen and examined. I agree with the H&P as written by the Resident Physician. Patient with recurrent admissions for MERNA on CKD IV in the past. She has been treated previously for hyperkalemia. Needed dialysis in the past for her kidney function and hyperkalemia. She presents with some uremic symptoms. Found to have a slightly worse kidney function and hyperkalemia 8.2. EKG possible peaked T waves but not different from previous. Given 1 L NS, insulin, dextrose, kayexalate, bicarbs, albuterol in the ED. Repeat K is 5.9. Hgb 10.7 is actually above baseline. BP on the lower side in the 80s systolic on last read but was in the 110s systolically before that. Nephrology consulted in the ED and recommended medical management and an admission. Labs consistent with dehydration causing pre-renal failure A/Ox3 RRR,S1, S2, No m/r/g CTAB Soft, NT, ND, +BS Will admit. Switch fluids to 1/2 NS at 75 cc/hr. Watch for over correction of sodium. Sodium was 123 on presentation and corrected to 131 with IVF Repeat labs at midnight and am. Nephrology consulted. Will stay in touch with nephrology throughout the night depending on labs Monitor UOP. No need for HD at the moment but patient is probably on verge of being a regular dialysis patient. Has recurrent admissions with similar presentations. 1 g calcium gluc Treat UTI with ceftriaxone. f/u on cultures Hold antihypertensives DVT ppx
[2017-12-02] MEDS ORDERED: Acetaminophen 325 MG TABLET PO PRN (21:56)
[2017-12-02] MEDS ORDERED: Naloxone 0.4 MG/ML INJ IVP PRN (21:56)
[2017-12-02] MEDS ORDERED: Dextrose Gel 15 GM/37.5 ML TUBE PO PRN ×2 (22:07)
[2017-12-02] MEDS ORDERED: *HR* Dextrose 50 % in Water (Syg) 50 ML SYRINGE IVP PRN (22:07)
[2017-12-02] MEDS ORDERED: D5% in Water 1,000 ML IVC PRN (22:07)
[2017-12-02] MEDS ORDERED: Ondansetron 4 MG/2 ML VIAL IVP PRN (22:09)
--- NOTE | 2017-12-02 22:16 | Internal Med History&Physical ---
Date of Encounter: 12/02/17 Time of Encounter: 22:10 Internal Medicine - H&P: HPI Chief complaint: Weakness, nausea, vomiting. Admitted From: Emergency Dept Plans for Post Hospital Care: Home History of present illness: Ms. Lacy is a 72 year old female with past medical history of CKD, DM 2, HTN, and recurrent hospitalizations for hyperkalemia, acute on chronic kidney disease , and UTIs. She presents to [facility] on 12/02/2017 with complaints of new onset weakness, nausea, and vomiting. Patient reports she woke up this morning and felt weak and fatigued. Nausea and vomiting soon followed. She states she knows her body well enough to know that she should come to the ED. Patient denies any chest pain, palpitations, shortness of breath, or diaphoresis. She denies any diarrhea, gross hematuria, or dysuria. She denies any focal neurological deficits, however, patient is unable to ambulate at her baseline due to peripheral neuropathy. In the ED, patient's was found to be profoundly hyperkalemic at 8.2. She was given a fluid bolus, insulin, dextrose, Kayexalate, and albuterol which brought her K down to 5.9. Her blood pressure was found to be trending in the mid 80s to 90s systolic. Nephrology was consulted from the ED and recommended medical management and admission. EKG demonstrated peaked T waves which was unchanged from a previous EKG. During examination, patient was resting comfortably. Her only other complaint was that of left-sided anterior chest wall tenderness. Patient reports she sustained a fall a few days ago and her home health aide caught her. She did not make an packed with the ground, however, the point of contact with the home health aide has provided a throbby chest wall tenderness. Past Med Surg Social Fam HX - Past Medical History Attestation: Yes The following information was validated with the patient. Source: patient Medical history: non-contributory, diabetes, hyperlipidemia, hypertension, renal disease, other Psychiatric history: no psych history - Past Surgical History Surgical History: appendectomy, cholecystectomy, hysterectomy - Social History Smoking Status: Never smoker Smokeless Tobacco Status: No Alcohol use: none Drug use: none - Family History Mother Living Status: Hx Family Cardiac Disorders: Yes Father Living Status: Hx Family Cardiac Disorders: Yes Internal Medicine - H&P: Meds Metoprolol [Lopressor] 12.5 mg PO BID 03/01/16 [History] Aspirin Enteric Coated [Aspirin EC] 81 mg PO DAILY 08/04/17 [History] Oxygen 2 l NS AD 08/04/17 [History] Gabapentin [Neurontin] 100 mg PO BID 09/17/17 [History] Ferrous Sulfate 325 mg PO BID 10/28/17 [History] Ondansetron HCl [Zofran] 4 mg PO TID PRN 10/28/17 [History] Pravastatin Sodium [Pravachol] 10 mg PO HS 10/28/17 [History] Cholecalciferol (Vitamin D3) [Vitamin D3] 1,000 unit PO DAILY 11/16/17 [History] Insulin Glargine,Hum.rec.anlog [Basaglar Kwikpen U-100] 40 unit SQ HS 11/16/17 [ History] Fluconazole [Diflucan] 100 mg PO DAILY #13 tablet 11/19/17 [Rx] 3 Allergy/AdvReac Type Severity Reaction Status Date / Time acetaminophen [From Tylenol] Allergy See Verified 11/16/17 08:20 Comments Influenza Virus Vaccines Allergy See Verified 10/27/17 21:42 Comments All Systems PM: A 10-system review of systems was performed and is negative for pertinent findings except as documented above in the HPI. - Constitutional Constitutional: falls, weakness, no anorexia, no chills, no fatigue, no fever(s) , no night sweats, no weight gain, no other - EENT Eyes: no change in vision, no other visual disturbances Ears: decreased hearing (at her baseline) Nose, mouth and throat: no nasal congestion, no nasal discharge, no sinus pain, no sinus pressure - Cardiovascular Cardiovascular ROS IM: no chest pain, no claudication, no diaphoresis, no dyspnea, no dyspnea on exertion, no edema, no lightheadedness, no orthopnea, no palpitations, no paroxysmal nocturnal dyspnea, no syncope - Respiratory Respiratory: no cough, no dyspnea, no pain on inspiration, no chest congestion - Gastrointestinal Gastrointestinal: nausea, vomiting, no abdominal pain, no coffee ground emesis, no cramping, no diarrhea, no hematemesis, no hematochezia, no loose stools - Musculoskeletal Musculoskeletal ROS IM: as per HPI, deformity (bilateral lower ankles), no limited range of motion, no myalgias - Integumentary Integumentary IM: no erythema, no rash, no other - Neurological Neurological ROS: weakness, no abnormal movements, no behavioral changes, no confusion - Endocrine Endocrine IM: no cold intolerance - Constitutional Vitals: Temp Pulse Resp BP Pulse Ox 97.5 F L 91 16 105/47 99 12/02/17 17:53 12/02/17 21:40 12/02/17 21:40 12/02/17 21:40 12/02/17 21:40 General appearance: Present: cooperative, A&O X 3, pleasant, no acute distress, answers questions appropriately - Head Head exam: Present: atraumatic, normocephalic - Eye Eye exam: Present: conjuntiva pink, sclera anicteric - Neck Neck exam general surgery: Present: supple, trachea midline. Absent: lymphadenopathy - Respiratory Respiratory exam: Present: CTAB. Absent: accessory muscle use, rales, rhonchi, wheezes - Cardiovascular Cardiovascular exam: Present: RRR, +S1, +S2. Absent: diastolic murmur, gallop, rubs, systolic murmur - GI/Abdominal GI/Abdominal exam: Present: normal bowel sounds, soft, no peritoneal signs. Absent: distended, firm, guarding, tenderness Additional comments: Patient with some anterior chest wall tenderness to palpation at the inferior costal margin of the left ribcage. - Extremities Exam Extremities exam: Present: warm, radial pulses palpable and symmetrical. Absent : calf tenderness, cyanotic, pedal edema Additional comments: Patient with a small well-healed area of ulceration a partially 0.5 cm on the anterior aspect of her right platt. Minimal surrounding erythema. - Neurological Exam Neurological exam: Present: alert, CN II-XII intact, oriented X3, strengths equal and symetr throughout. Absent: motor sensory deficit, no focal deficits, facial droop, speech deficit - Skin Skin exam: Present: dry, intact Internal Med - H&P Results - Labs CBC & Chem 7: 12/02/17 18:03 12/02/17 19:47 - Assessment and plan (1) Acute worsening of stage 4 chronic kidney disease Current Visit: No Status: Acute Assessment and plan: 72-year-old female with past medical history of CKD, DM 2, and recurrent hospitalizations for worsening renal function and hyperkalemia presents with uremic symptoms with electrolyte abnormalities. -Hyperkalemia trending down after albuterol, insulin, Kayexalate, and fluids were given in the ED. Currently 5.9. We will continue to trend BMPs including one at midnight, as well as magnesium and phosphorus. -Suspect worsening renal function due to prerenal etiology. Will provide gentle hydration with half-normal saline as patient's sodium was initially 123 and increased to 131 after fluid resuscitation in the ED. -We will continue to trend labs. -Cardiac telemetry. -Consult to nephrology. (2) Hyperkalemia Current Visit: No Status: Resolved Assessment and plan: Potassium trending down after interventions given in the ED as specified above. -Due to peaked T-wave abnormalities on EKG, despite being unchanged from previous EKG, we will stabilize the myocardium with one-time dose of IV calcium gluconate. -We will continue to trend BMP and monitor closely. (3) Abnormal EKG Current Visit: No Status: Acute Assessment and plan: Peaked T waves evidenced on EKG. -IV calcium gluconate. -Cardiac telemetry. -repeat EKG in the morning. (4) Hyponatremia Current Visit: No Status: Resolved Assessment and plan: Due to increased from 123 initially to 131, We will continue gentle IV hydration with 1/2 NS at 75 mils per hour. (5) Diabetes mellitus Current Visit: No Status: Chronic Assessment and plan: Medium dose sliding scale coverage and before meals at bedtime Accu-Cheks. 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 Qualifiers: Hypertension type: essential hypertension Qualified Code(s): I10 - Essential (primary) hypertension (7) UTI (urinary tract infection) Current Visit: No Status: Resolved Assessment and plan: Urinary cultures in the past have been negative other than Gricelda. -We will provide coverage with Rocephin 1 g daily. -Follow-up urine culture. Qualifiers: Urinary tract infection type: acute cystitis Hematuria presence: with hematuria Qualified Code(s): N30.01 - Acute cystitis with hematuria (8) Rib pain Current Visit: Yes Status: Acute Assessment and plan: Chest x-ray obtained in the ED is negative for acute radiographic finding. -We will obtain a rib x-ray. (9) DVT prophylaxis Current Visit: No Status: Acute Assessment and plan: Heparin 5000 units subcutaneous twice a day. - Time Spent With Patient Total time spent is greater than 50% in coordination of care (as documented) at patient's floor/unit and/or counseling patient:
[2017-12-02 22:24] LABS: Estimated Average Glucose 203 mg/dl; Hemoglobin A1C 8.7 %
[2017-12-02] MEDS ORDERED: cefTRIAXone 1,000 MG in Water for inj. (sterile) 20 ML 10 ML IVP SCH (23:00)
[2017-12-02] MEDS: Gabapentin 100 MG CAPSULE PO SCH (23:21)
[2017-12-03 00:53] LABS: Calcium 8.8 mg/dL (8.6-10.3); Magnesium 1.9 mg/dL (1.6-2.6); Phosphorous 6.5 mg/dL (2.7-4.5); Potassium 5.9 mEq/L (3.5-5.1)
[2017-12-03] MEDS ORDERED: *HR* Dextrose 50 % in Water (Syg) 50 ML SYRINGE IVP ONE (01:13)
[2017-12-03] MEDS ORDERED: Insulin Human Regular 10 UNIT in 0.9 % Sodium Chloride 10 ML IV ONE (01:15)
[2017-12-03 03:56] LABS: Basophils # 0.1 K/mcL (0.0-0.2); Basophils % 0.7 %; Eosinophils # 0.2 K/mcL (0.0-0.6); Hematocrit 23.7 % (35.3-44.9); Hemoglobin 7.7 g/dL (11.5-15.4); Immature Granulocytes % 0.5 % (0-4); Lymphocytes # 1.5 K/mcL (0.6-4.6); Lymphocytes % 20.3 %; Mean Corpuscular HGB Conc 32.5 g/dL (31.6-35.5); Mean Corpuscular Hemoglobin 27.5 pg (28.0-33.3); Mean Corpuscular Volume 84.6 fL (83.0-100.0); Monocytes # 0.5 K/mcL (0.0-1.3); Monocytes % 6.1 %; Neutrophils # 5.3 K/mcL (1.6-8.9); Platelet Count 288 K/mcL (140-400); Red Cell Distribution Width 13.7 % (11.5-14.5); Segmented Neutrophils % 70.4 %
[2017-12-03 04:01] LABS: INR 1.2; Prothrombin Time 12.5 Seconds (9.4-12.1)
[2017-12-03 04:04] LABS: Activated Partial Thrombo Time 29.3 Seconds (26.0-36.0)
[2017-12-03 04:18] LABS: Calcium 8.4 mg/dL (8.6-10.3); Magnesium 1.8 mg/dL (1.6-2.6); Phosphorous 6.4 mg/dL (2.7-4.5); Potassium 5.7 mEq/L (3.5-5.1)
[2017-12-03] MEDS ORDERED: *HR* Heparin 5,000 UNIT/ML VIAL SQ SCH (06:00)
[2017-12-03] MEDS: Insulin LISPRO 300 UNITS/3 ML VIAL SQ SCH ×3 (07:47→18:44)
[2017-12-03] MEDS: Gabapentin 100 MG CAPSULE PO SCH ×2 (07:59→20:16)
[2017-12-03] MEDS ORDERED: Aspirin Enteric Coated 81 MG Tablet PO SCH (09:00)
[2017-12-03] MEDS ORDERED: Fluconazole 100 MG TABLET PO SCH (09:00)
--- NOTE | 2017-12-03 11:10 | Nephrology Consult Note ---
Date of Encounter: 12/03/17 Time of Encounter: 11:08 Assessment and Plan (1) MERNA (acute kidney injury) Current Visit: Yes Status: Acute Will proceed with the MERNA workup to include UA, urine culture, urine creatinine , urine sodium, urine eosinophils, CPK, reneal ultrasound, serum uric acid, protein/creatinine ratio Kidney function improving Scr 4.53, GFR 11. Baseline GFR 16-18 Continue renal diet Continue strict I/Os Avoid nephrotoxins if possible (2) Chronic kidney disease, stage IV (severe) Current Visit: No Status: Chronic see above (3) Hyperkalemia Current Visit: Yes Status: Chronic K+ improving now 5.7 (4) Hyperphosphatemia Current Visit: Yes Status: Acute Phos level 6.4 Continue renal diet Will monitor labs closely History of Present Illness - Reason for Consult Consult date: 12/03/17 - Chief Complaint hyperkalemia, MERNA on CKD stage 4 - History of Present Illness Ms. Lacy is a 72 year old female with past medical history of CKD, DM 2, HTN, and recurrent hospitalizations for hyperkalemia, acute on chronic kidney disease , and UTIs. She presents to [facility] on 12/02/2017 with complaints of new onset weakness, nausea, and vomiting. In the ED patient's K+ level was at 8.2. She was given a fluid bolus, insulin, dextrose, Kayexalate, and albuterol which brought her K down to 5.9. Her blood pressure was found to be trending in the mid 80s to 90s systolic. Nephrology was consulted from the ED and recommended were made including medical management and admission. EKG demonstrated peaked T waves which was unchanged from a previous EKG. Patient follows with Dr Dennis in the office for her CKD stage 4. Past Med Surg Social Fam HX - Past Medical History Medical history: non-contributory, diabetes, hyperlipidemia, hypertension, renal disease, other Psychiatric history: no psych history - Past Surgical History Surgical History: appendectomy, cholecystectomy, hysterectomy - Social History Smoking Status: Never smoker Smokeless Tobacco Status: No Alcohol use: none Drug use: none - Family History Mother Living Status: Hx Family Cardiac Disorders: Yes Father Living Status: Hx Family Cardiac Disorders: Yes Medications and Allergies Metoprolol [Lopressor] 12.5 mg PO BID 03/01/16 [History] Aspirin Enteric Coated [Aspirin EC] 81 mg PO DAILY 08/04/17 [History] Oxygen 2 l NS AD 08/04/17 [History] Gabapentin [Neurontin] 100 mg PO BID 09/17/17 [History] Ferrous Sulfate 325 mg PO BID 10/28/17 [History] Ondansetron HCl [Zofran] 4 mg PO TID PRN 10/28/17 [History] Pravastatin Sodium [Pravachol] 10 mg PO HS 10/28/17 [History] Cholecalciferol (Vitamin D3) [Vitamin D3] 1,000 unit PO DAILY 11/16/17 [History] Insulin Glargine,Hum.rec.anlog [Basaglar Kwikpen U-100] 40 unit SQ HS 11/16/17 [ History] Fluconazole [Diflucan] 100 mg PO DAILY #13 tablet 11/19/17 [Rx] 3 Allergy/AdvReac Type Severity Reaction Status Date / Time acetaminophen [From Tylenol] Allergy See Verified 11/16/17 08:20 Comments Influenza Virus Vaccines Allergy See Verified 10/27/17 21:42 Comments Review of Systems All Systems: reviewed and no additional remarkable complaints except as stated Constitutional: malaise, weakness Cardiovascular: no chest pain, no dyspnea, no leg edema Respiratory: no dyspnea Gastrointestinal: nausea, vomiting Neurological: weakness, no behavioral changes Exam - Vital Signs Vital signs: Initial Vital Signs Temp Pulse Resp BP Pulse Ox 97.5 F L 89 18 125/70 100 12/02/17 17:53 12/02/17 17:53 12/02/17 17:53 12/02/17 17:53 12/02/17 17:53 Vital Signs - Last 8 Hours Temp Pulse Resp BP Pulse Ox 12/03/17 10:00 100 16 142/78 99 12/03/17 08:12 98.1 F 12/03/17 08:00 96 12/03/17 04:29 85 12/03/17 04:00 85 12 105/68 100 12/03/17 03:22 96.8 F L Intake and Output 12/02/17 12/03/17 12/03/17 23:59 07:59 15:59 Intake Total 10.1 / 10.1 480 / 480 Output Total 100 / 100 300 / 300 650 / 650 Balance -100 / 900 -289.9 / -289.9 -170 / -170 Intake: IV Fluids 10.1 / 10.1 HumuLIN R 10 UNIT In Normal 10.1 / 10.1 Saline Flush 10 ML @ 1212 mls/ hr IV ONCE ONE Rx#:[id number] Oral 480 / 480 Output: Catheter 100 / 100 300 / 300 650 / 650 Other: Meal Breakfast Percent of Meal Consumed 60% Stool Size Moderate Stool Consistency loose soft Stool Color Brown Green # Bowel Movements 2 Blood Glucose* 168 277 - General Appearance General appearance: well-developed, well-nourished EENT: ATNC Neck: supple Respiratory: clear Cardiology: no edema, normal S1, normal S2 Gastrointestinal: no tenderness, no guarding Integumentary: warm and dry Results - Lab Results 12/03/17 03:19 12/03/17 03:19 Most recent lab results Calcium 8.4 mg/dL (8.6-10.3) L 12/03/17 03:19 Phosphorus 6.4 mg/dL (2.7-4.5) H 12/03/17 03:19 Magnesium 1.8 mg/dL (1.6-2.6) 12/03/17 03:19 Consult Discharge Plan - Plan Referrals: Macario Diallo MD [Primary Care Provider] -
[2017-12-03] MEDS ORDERED: Micafungin 100 MG in 0.9 % Sodium Chloride Mini Bag 100 ML IVPB SCH (13:15)
--- NOTE | 2017-12-03 13:15 | Internal Med Progress Note ---
Date of Encounter: 12/03/17 Time of Encounter: 13:13 - Assessment and plan (1) Hyperkalemia Current Visit: No Status: Resolved Assessment and plan: Severe hyperkalemia secondary to acute renal failure Received Kayexalate, bicarbonate and insulin with D50 -Due to peaked T-wave abnormalities on EKG, received IV calcium gluconate. Improving (2) UTI (urinary tract infection) Current Visit: No Status: Resolved Assessment and plan: Urinary cultures in the past have been negative other than Gricelda glabrata. -May discontinue Rocephin (day #2) if the culture is growing a gram Gricelda. Start Micafungin Discontinue fluconazole as these will not treat this type of Gricelda -Follow-up urine culture. Qualifiers: Urinary tract infection type: acute cystitis Hematuria presence: with hematuria Qualified Code(s): N30.01 - Acute cystitis with hematuria (3) Hyponatremia Current Visit: No Status: Resolved Assessment and plan: Due to increased from 123 initially to 131, received 1/2 NS (4) HTN (hypertension) Current Visit: No Status: Chronic Assessment and plan: Stable Qualifiers: Hypertension type: essential hypertension Qualified Code(s): I10 - Essential (primary) hypertension (5) Acute worsening of stage 4 chronic kidney disease Current Visit: No Status: Acute Assessment and plan: Acute on chronic renal failure history of CKD, DM 2, and recurrent hospitalizations for worsening renal function and hyperkalemia presents with uremic symptoms with electrolyte abnormalities. Kayexalate -Consulted to nephrology. (6) Rib pain Current Visit: Yes Status: Acute Assessment and plan: Chest x-ray obtained in the ED is negative for acute radiographic finding. . No rib fractures seen on x-ray (7) Abnormal EKG Current Visit: No Status: Acute Assessment and plan: Peaked T waves evidenced on EKG. due to hyperkalemia -received IV calcium gluconate. telemetry. (8) Diabetes mellitus Current Visit: No Status: Chronic Assessment and plan: Medium dose sliding scale coverage and before meals at bedtime Accu-Cheks. 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: with termite renewal inspector use Diabetes mellitus complication status: with kidney complications Diabetes mellitus complication detail: with chronic kidney disease Chronic kidney disease stage: stage 3 (moderate) Qualified Code(s): E11.22 - Type 2 diabetes mellitus with diabetic chronic kidney disease; N18.3 - Chronic kidney disease, stage 3 (moderate); N18.3 - Chronic kidney disease, stage 3 (moderate); Z79.4 - assisted (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; Z79.4 - assisted (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; Z79.4 - supervisor intermediates (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; Z79.4 - supervisor intermediates (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 - Time Spent With Patient Total time spent is greater than 50% in coordination of care (as documented) at patient's floor/unit and/or counseling patient: - Subjective Interval history: denies any CP or SOB, no abdominal pain or dysuria. No fevers, no diarrhea - Constitutional Vitals: Temp Pulse Resp BP Pulse Ox 98.1 F 100 16 142/78 99 12/03/17 08:12 12/03/17 10:00 12/03/17 10:00 12/03/17 10:00 12/03/17 10:00 General appearance: Present: cooperative, A&O X 3, pleasant, no acute distress, answers questions appropriately - Head Head exam: Present: atraumatic, normocephalic - Eye Eye exam: Present: PERRL, conjuntiva pink, sclera anicteric Pupils: Present: PERRL - Neck Neck exam general surgery: Present: supple, trachea midline. Absent: lymphadenopathy - Respiratory Respiratory exam: Present: CTAB. Absent: accessory muscle use, rales, rhonchi, wheezes - Cardiovascular Cardiovascular exam: Present: RRR, +S1, +S2. Absent: diastolic murmur, gallop, rubs, systolic murmur - GI/Abdominal GI/Abdominal exam: Present: normal bowel sounds, soft, no peritoneal signs. Absent: distended, tenderness - Extremities Exam Extremities exam: Present: warm, radial pulses palpable and symmetrical. Absent : calf tenderness, cyanotic, pedal edema - Neurological Exam Neurological exam: Present: CN II-XII intact, oriented X3, no focal deficits. Absent: pronater drift, facial droop, speech deficit - Skin Skin exam: Present: dry, intact Internal Medicine: Result - Labs CBC & Chem 7: 12/03/17 03:19 12/03/17 03:19 Labs: Short CBC 12/03/17 Range/Units 03:19 WBC 7.5 (4.3-11.1) K/mcL Hgb 7.7 L D (11.5-15.4) g/dL Hct 23.7 L (35.3-44.9) % Plt Count 288 (140-400) K/mcL Neutrophils # 5.3 (1.6-8.9) K/mcL BMP 12/03/17 12/03/17 00:14 03:19 Sodium 130 L 130 L Potassium 5.9 H 5.7 H Chloride 102 101 Carbon Dioxide 15 L 16 L BUN 112 H 109 H Creatinine 5.07 H 4.53 H Glucose 205 H 389 H Calcium 8.8 8.4 L - ABG Interpretation ABG results: PT/INR, D-dimer PT 12.5 Seconds (9.4-12.1) H 12/03/17 03:19 - Impressions Impressions Ribs X-Ray 12/02/17 22:04 IMPRESSION: No evidence of acute focal rib abnormality. D/ / 12/03/2017 07:16:55 Stevo Pastrana MD / brett Interpreting Provider: Stevo Pastrana MD Consult Discharge Plan - Plan Referrals: Macario Diallo MD [Primary Care Provider] -
[2017-12-03 13:48] LABS: Uric Acid 7.8 mg/dL (2.3-7.6)
[2017-12-03] MEDS ORDERED: Ondansetron 4 MG/2 ML VIAL IVP PRN (16:09)
[2017-12-03] MEDS ORDERED: Naloxone 0.4 MG/ML INJ IVP PRN (16:09)
[2017-12-03] MEDS ORDERED: Dextrose Gel 15 GM/37.5 ML TUBE PO PRN ×2 (16:09)
[2017-12-03] MEDS ORDERED: D5% in Water 1,000 ML IVC PRN (16:09)
[2017-12-03] MEDS ORDERED: *HR* Dextrose 50 % in Water (Syg) 50 ML SYRINGE IVP PRN (16:09)
--- NOTE | 2017-12-03 16:18 | Electrocardiograph Report ---
[address] [place] [id number] Test Date: 2017-12-02 Pat Name: Lisa Lacy Department: 102 Room: 03 Gender: F Regional Service Manager: Paulino : 1945 Requested By: [id number] Order Number: [id number] Reading MD: Haleigh Caba Measurements Intervals [place] Rate: 87 P: 71 MS: 242 QRS: -52 QRSD: 125 T: 128 QT: 389 QTc: 433 Interpretive Statements SINUS RHYTHM WITH SINUS ARRHYTHMIA WITH FIRST DEGREE AV BLOCK LEFT ANTERIOR FASCICULAR BLOCK [QRS AXIS <= -45, QR IN I, RS IN II] SEPTAL MYOCARDIAL INFARCTION [40+ ms Q WAVE IN V1/V2], PROBABLY OLD MODERATE T-WAVE ABNORMALITY, CONSIDER LATERAL ISCHEMIA [-0.1+ mV T WAVE IN I/aVL/V5/V6] Electronically Signed On 12-03-2017 16:16:54 EDT by Haleigh Caba
[2017-12-03] MEDS: *HR* Heparin 5,000 UNIT/ML VIAL SQ SCH (18:47)
[2017-12-03] MEDS: Insulin DETEMIR 100 UNIT/ML X5UNITS SQ SCH (20:16)
[2017-12-03 20:32] LABS: Calcium 8.2 mg/dL (8.6-10.3); Potassium 5.5 mEq/L (3.5-5.1)
[2017-12-03 20:56] LABS: Bilirubin,Urine Negative (Negative); Blood,Urine Moderate (Negative); Clarity,Urine Turbid (Clear); Color,Urine Yellow (Yellow); Glucose,Urine (UA) 250 mg/dL (Normal); Ketones,Urine Negative (Negative); Leukocyte Esterase,Urine Large (Negative); Nitrite,Urine Negative (Negative); PH,Urine 6.5 pH Units (5.0-8.0); Protein,Urine 100 mg/dL (Neg-Trace); Specific Gravity,Urine 1.009 (1.010-1.025); Urobilinogen,Urine Normal (Normal)
[2017-12-03 20:59] LABS: Bacteria,Urine None Seen per hpf (None-Few); Hyaline Casts,Urine None Seen per lpf (None-Few); RBC,Urine 15-30 per hpf (0-3); Squamous Epithelial Cell,Urine Many per lpf (None-Few); WBC,Urine TNTC per hpf (0-3)
[2017-12-03] MEDS ORDERED: Insulin DETEMIR 100 UNIT/ML X5UNITS SQ SCH (21:00)
[2017-12-03 21:14] LABS: Protein/Creatinine Ratio,Urine 4.32 mg/mg (0.00-0.20); Sodium, Urine 61.2 mEq/L
[2017-12-04] MEDS: cefTRIAXone 1,000 MG in Water for inj. (sterile) 20 ML 10 ML IVP SCH ×2 (00:57→23:03)
[2017-12-04] MEDS: *HR* Heparin 5,000 UNIT/ML VIAL SQ SCH ×2 (05:59→16:38)
[2017-12-04 06:17] LABS: Hematocrit 23.7 % (35.3-44.9); Hemoglobin 7.7 g/dL (11.5-15.4); Mean Corpuscular HGB Conc 32.5 g/dL (31.6-35.5); Mean Corpuscular Hemoglobin 27.3 pg (28.0-33.3); Mean Platelet Volume 8.9 fL (9.4-12.4); Platelet Count 276 K/mcL (140-400); Red Blood Count 2.82 M/mcL (3.82-4.97)
[2017-12-04 06:40] LABS: Calcium 8.3 mg/dL (8.6-10.3); Potassium 4.9 mEq/L (3.5-5.1)
[2017-12-04] MEDS: Insulin LISPRO 300 UNITS/3 ML VIAL SQ SCH ×4 (07:48→20:55)
[2017-12-04] MEDS: Gabapentin 100 MG CAPSULE PO SCH ×2 (07:49→19:55)
[2017-12-04] MEDS: Aspirin Enteric Coated 81 MG Tablet PO SCH (07:49)
[2017-12-04] MEDS ORDERED: Micafungin 100 MG in 0.9 % Sodium Chloride Mini Bag 100 ML IVPB SCH (09:00)
--- NOTE | 2017-12-04 10:25 | Nephrology Progress Note ---
Date of Encounter: 12/04/17 Time of Encounter: 10:10 - Assessment and Plan (1) MERNA (acute kidney injury) Status: Resolved Nonoliguric and not uremic, so no indications for CONTENT EDITOR Cont to follow a renal protective strategy but avoiding nephrotoxins Low K+ diet Her primary acid bath mixer is Dr. Meza. (2) Dehydration Status: Resolved Cont gentle volume expansion. (3) Acute kidney injury superimposed on chronic kidney disease Status: Acute Baseline CKD stage IV Subjective Principal diagnosis: MERNA on CKD Interval history: Pt was s/e earlier in the day. She reported feeling left sided discomfort since having a fall on her left side, but she did not affirm uremic complaints ( i.e., she did not affirm symptoms of renal failure including diminished appetite , confusion, twitching or sever swelling). Objective - Vital Signs Vital signs: Vital Signs Temp Pulse Resp BP Pulse Ox 12/04/17 06:55 98.1 F 93 17 130/66 97 12/04/17 03:51 98.6 F 96 17 110/68 94 12/03/17 23:22 98.0 F 86 17 135/63 99 12/03/17 19:41 97.9 F 92 17 136/72 100 12/03/17 14:00 93 20 115/71 99 12/03/17 12:00 78 Intake and Output 12/03/17 12/04/17 12/04/17 23:59 07:59 15:59 Intake Total 640 / 640 800 / 800 Output Total 1850 / 1850 950 / 950 Balance -1210 / -1210 -950 / -950 800 / 800 Intake: Oral 640 / 640 800 / 800 Output: Catheter 1850 / 1850 950 / 950 Urethral (Madden) 450 / 450 600 / 600 Other: Meal Breakfast Percent of Meal Consumed 80% Weight 54.2 kg Blood Glucose* 271 254 Patient Weight 12/04/17 23:59 Weight 54.2 kg - General Appearance General appearance: Present: well-developed (but thin), fatigue, frail EENT: Present: ATNC, PERRL, mucous membranes moist Respiratory: Present: clear Cardiology: Present: no edema, normal S1, normal S2 Gastrointestinal: Present: normoactive bowel sounds, no tenderness, no guarding Integumentary: Present: warm and dry Neurologic: Present: no focal deficit, no asterixis Musculoskeletal: Present: no erythema, no cyanosis Psychiatric: Present: mood/affect appropriate, cooperative - Lab 12/10/17 01:26 12/10/17 01:26 Most recent lab results Calcium 8.3 mg/dL (8.6-10.3) L 12/04/17 05:58 Phosphorus 6.4 mg/dL (2.7-4.5) H 12/03/17 03:19 Magnesium 1.8 mg/dL (1.6-2.6) 12/03/17 03:19 Urine Creatinine 22 mg/dL 12/03/17 20:41 Urine Sodium 61.2 mEq/L 12/03/17 20:41 Urine Total Protein 95 mg/dL (1-14) H 12/03/17 20:41 Consult Discharge Plan - Plan Instructions: Urinary Tract Infection in Women (DC), Hyperkalemia (DC) Additional Instructions: Follow up with PCP in 1 week after discharge. Recheck BMP and magnesium at that time (hyperkalemia and hypomagnesemia). Follow up with nephrology in 3-4 weeks as directed. Follow up with urology in 1-2 weeks for chronic bilateral hydronephrosis. Referrals: Christoph Giraldo MD [Partnered Physician] - 12/24/17 8:20 am (Please follow up as schedule...) Macario Diallo MD [Primary Care Provider] - 12/15/17 3:15 pm (Please follow up as schedule...) Cruzito Alan DO [Partnered Physician] - 01/15/18 11:30 am (Please follow up as schedule...) Prescriptions: Ciprofloxacin HCl [Cipro] 500 mg PO DAILY 1 Days #1 tablet
--- NOTE | 2017-12-04 10:37 | Internal Med Progress Note ---
Date of Encounter: 12/04/17 Time of Encounter: 10:35 - Assessment and plan (1) Acute worsening of stage 4 chronic kidney disease Current Visit: No Status: Acute Assessment and plan: Acute on chronic renal failure history of CKD, DM 2, and recurrent hospitalizations for worsening renal function and hyperkalemia presents with uremic symptoms with electrolyte abnormalities. Continue IV fluids Kayexalate was given -Consulted to nephrology. (2) Hyperkalemia Current Visit: No Status: Resolved Assessment and plan: Severe hyperkalemia secondary to acute renal failure Received Kayexalate, bicarbonate and insulin with D50 -Due to peaked T-wave abnormalities on EKG, received IV calcium gluconate. Resolved (3) UTI (urinary tract infection) Current Visit: No Status: Resolved Assessment and plan: Continue Rocephin (day #3) culture growing gram-negative rods Continue Micafungin, Urinary cultures in the past have grown Gricelda glabrata. Discontinued fluconazole as it will not treat this type of Gricelda -Follow-up urine culture. Qualifiers: Urinary tract infection type: acute cystitis Hematuria presence: with hematuria Qualified Code(s): N30.01 - Acute cystitis with hematuria (4) Hyponatremia Current Visit: No Status: Resolved Assessment and plan: Due to increased from 123 initially to 131, received 1/2 NS , today is 129 (5) HTN (hypertension) Current Visit: No Status: Chronic Assessment and plan: Stable Qualifiers: Hypertension type: essential hypertension Qualified Code(s): I10 - Essential (primary) hypertension (6) Rib pain Current Visit: Yes Status: Acute Assessment and plan: Chest x-ray obtained in the ED is negative for acute radiographic finding. . No rib fractures seen on x-ray (7) Abnormal EKG Current Visit: No Status: Acute Assessment and plan: Peaked T waves evidenced on EKG. due to hyperkalemia -received IV calcium gluconate. telemetry. (8) Diabetes mellitus Current Visit: No Status: Chronic Assessment and plan: Medium dose sliding scale coverage and before meals at bedtime Accu-Cheks. 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 No fevers, no diarrhea - Constitutional Vitals: Temp Pulse Resp BP Pulse Ox 98.1 F 93 17 130/66 97 12/04/17 06:55 12/04/17 06:55 12/04/17 06:55 12/04/17 06:55 12/04/17 06:55 General appearance: Present: cooperative, A&O X 3, pleasant, no acute distress, answers questions appropriately Exam: - Head Head exam: Present: atraumatic, normocephalic - Eye Eye exam: Present: PERRL, conjuntiva pink, sclera anicteric Pupils: Present: PERRL - Neck Neck exam general surgery: Present: supple, trachea midline. Absent: lymphadenopathy - Respiratory Respiratory exam: Present: CTAB. Absent: accessory muscle use, rales, rhonchi, wheezes - Cardiovascular Cardiovascular exam: Present: RRR, +S1, +S2. Absent: diastolic murmur, gallop, rubs, systolic murmur - GI/Abdominal GI/Abdominal exam: Present: normal bowel sounds, soft, no peritoneal signs. Absent: distended, tenderness - Extremities Exam Extremities exam: Present: warm, radial pulses palpable and symmetrical. Absent : calf tenderness, cyanotic, pedal edema - Neurological Exam Neurological exam: Present: CN II-XII intact, oriented X3, no focal deficits. Absent: pronater drift, facial droop, speech deficit - Skin Skin exam: Present: dry, intact Internal Medicine: Result - Labs CBC & Chem 7: 12/04/17 05:58 12/04/17 05:58 Labs: Short CBC 12/04/17 Range/Units 05:58 WBC 7.4 (4.3-11.1) K/mcL Hgb 7.7 L (11.5-15.4) g/dL Hct 23.7 L (35.3-44.9) % Plt Count 276 (140-400) K/mcL BMP 12/03/17 12/04/17 20:02 05:58 Sodium 128 L 129 L Potassium 5.5 H 4.9 Chloride 99 103 Carbon Dioxide 20 L 19 L BUN 100 H 90 H Creatinine 4.26 H 3.79 H Glucose 235 H 248 H Calcium 8.2 L 8.3 L Urine 12/03/17 Range/Units 20:39 Urine Color Yellow (Yellow) Urine Clarity Turbid A (Clear) Urine pH 6.5 (5.0-8.0) pH Units Ur Specific [place] 1.009 L (1.010-1.025) Urine Protein 100 H (Neg-Trace) mg/dL Urine Glucose (UA) 250 H (Normal) mg/dL - ABG Interpretation ABG results: PT/INR, D-dimer PT 12.5 Seconds (9.4-12.1) H 12/03/17 03:19 - Impressions Impressions Retroperitoneum Ultrasound 12/03/17 18:00 IMPRESSION: Bilateral moderate hydronephrosis, stable. Bilateral renal cysts. Cortical exophytic cyst in the superior pole of the left kidney is slightly larger by comparison. D/ / Dariel Robison MD / Dariel Robison MD Interpreting Provider: Dariel Robison MD Consult Discharge Plan - Plan Referrals: Macario Diallo MD [Primary Care Provider] -
[2017-12-04] MEDS: Insulin DETEMIR 100 UNIT/ML X5UNITS SQ SCH (21:04)
[2017-12-05 04:49] LABS: Basophils % 0.2 %; Eosinophils # 0.3 K/mcL (0.0-0.6); Eosinophils % 4.8 %; Hematocrit 23.2 % (35.3-44.9); Hemoglobin 7.3 g/dL (11.5-15.4); Immature Granulocytes % 0.3 % (0-4); Immature Platelets 1.1 % (1.1-6.1); Lymphocytes # 2.2 K/mcL (0.6-4.6); Mean Corpuscular HGB Conc 31.5 g/dL (31.6-35.5); Mean Corpuscular Hemoglobin 27.1 pg (28.0-33.3); Mean Corpuscular Volume 86.2 fL (83.0-100.0); Mean Platelet Volume 9.1 fL (9.4-12.4); Monocytes # 0.6 K/mcL (0.0-1.3); Monocytes % 8.9 %; Neutrophils # 3.5 K/mcL (1.6-8.9); Platelet Count 315 K/mcL (140-400); Red Blood Count 2.69 M/mcL (3.82-4.97); Red Cell Distribution Width 14.1 % (11.5-14.5); Segmented Neutrophils % 52.8 %
[2017-12-05] MEDS: *HR* Heparin 5,000 UNIT/ML VIAL SQ SCH ×2 (05:04→16:13)
[2017-12-05 05:13] LABS: Albumin 2.6 g/dL (3.5-5.7); Calcium 8.4 mg/dL (8.6-10.3); Potassium 5.1 mEq/L (3.5-5.1)
[2017-12-05 05:27] LABS: Bilirubin,Urine Negative (Negative); Blood,Urine Large (Negative); Clarity,Urine Turbid (Clear); Color,Urine Yellow (Yellow); Glucose,Urine (UA) Normal (Normal); Ketones,Urine Negative (Negative); Leukocyte Esterase,Urine Large (Negative); Nitrite,Urine Negative (Negative); PH,Urine 6.5 pH Units (5.0-8.0); Protein,Urine 100 mg/dL (Neg-Trace); Specific Gravity,Urine 1.012 (1.010-1.025); Urobilinogen,Urine Normal (Normal)
[2017-12-05 05:29] LABS: WBC,Urine TNTC per hpf (0-3)
[2017-12-05 05:44] LABS: Hyaline Casts,Urine None Seen per lpf (None-Few); RBC,Urine Present per hpf (0-3); Renal Epithelial Cells,Urine Present per hpf (None-Few); Squamous Epithelial Cell,Urine Present per lpf (None-Few)
[2017-12-05 05:45] LABS: Bacteria,Urine Present per hpf (None-Few); Mucus,Urine Present (Few); Yeast,Urine Present per hpf (None Seen)
[2017-12-05] MEDS: Insulin LISPRO 300 UNITS/3 ML VIAL SQ SCH ×4 (07:53→21:27)
[2017-12-05] MEDS: Aspirin Enteric Coated 81 MG Tablet PO SCH (07:57)
[2017-12-05] MEDS: Gabapentin 100 MG CAPSULE PO SCH ×2 (07:57→20:26)
--- NOTE | 2017-12-05 08:13 | Internal Med Progress Note ---
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: with vermin exterminator use Diabetes mellitus complication status: with kidney complications Diabetes mellitus complication detail: with chronic kidney disease Chronic kidney disease stage: stage 3 (moderate) Qualified Code(s): E11.22 - Type 2 diabetes mellitus with diabetic chronic kidney disease; N18.3 - Chronic kidney disease, stage 3 (moderate); N18.3 - Chronic kidney disease, stage 3 (moderate); Z79.4 - vermin exterminator (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; Z79.4 - vermin exterminator (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; Z79.4 - assisted (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; Z79.4 - assisted (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 (2) Dehydration Current Visit: Yes Status: Acute Assessment and plan: Resolved receive IV hydration (3) Rgjet-hv-jaypowe kidney injury Current Visit: No Status: Acute Assessment and plan: Has improved being followed by nephrology Qualifiers: Acute renal failure type: unspecified Chronic kidney disease stage: stage 3 (moderate) Qualified Code(s): N17.9 - Acute kidney failure, unspecified; N18.3 - Chronic kidney disease, stage 3 (moderate); N18.3 - Chronic kidney disease, stage 3 (moderate) (4) UTI (urinary tract infection) Current Visit: Yes Status: Acute Assessment and plan: day #4 of Rocephin culture grows Citrobacter Qualifiers: Urinary tract infection type: acute cystitis Hematuria presence: without hematuria Qualified Code(s): N30.00 - Acute cystitis without hematuria (5) Hyperkalemia Current Visit: Yes Status: Chronic Assessment and plan: I resolving (6) Rib pain Current Visit: Yes Status: Acute Assessment and plan: Chronic continue pain medication - Time Spent With Patient Total time spent is greater than 50% in coordination of care (as documented) at patient's floor/unit and/or counseling patient: - Subjective Interval history: Patient with history of CK D, diabetes, hypertension, patient admitted with nausea vomiting generalized weakness and acute worsening renal failure creatinine was up to 5 with potassium of 8 also had a UTI treated with Rocephin this is day #4 Also being followed by nephrology creatinine has improved and just noted a hemoglobin was 10.4 now down to 7.3 patient is seen today and she says she feels better she is eating breakfast no acute issues no chest pain no shortness of breath. - Constitutional Vitals: Temp Pulse Resp BP Pulse Ox 97.7 F 87 17 130/65 99 12/05/17 07:35 12/05/17 07:35 12/05/17 07:35 12/05/17 07:35 12/05/17 07:35 General appearance: Present: cooperative, A&O X 3, pleasant, no acute distress, answers questions appropriately - Head Head exam: Present: atraumatic, normocephalic - Eye Eye exam: Present: PERRL, conjuntiva pink, sclera anicteric Pupils: Present: PERRL - Respiratory Respiratory exam: Present: CTAB. Absent: accessory muscle use, rales, rhonchi, wheezes - Cardiovascular Cardiovascular exam: Present: RRR, +S1, +S2. Absent: diastolic murmur, gallop, rubs, systolic murmur - GI/Abdominal GI/Abdominal exam: Present: normal bowel sounds, soft, no peritoneal signs. Absent: distended, tenderness - Extremities Exam Extremities exam: Present: warm, radial pulses palpable and symmetrical. Absent : calf tenderness, cyanotic, pedal edema Internal Medicine: Result - Labs CBC & Chem 7: 12/05/17 04:15 12/05/17 04:15 Labs: Short CBC 12/05/17 Range/Units 04:15 WBC 6.6 (4.3-11.1) K/mcL Hgb 7.3 L (11.5-15.4) g/dL Hct 23.2 L (35.3-44.9) % Plt Count 315 (140-400) K/mcL Neutrophils # 3.5 (1.6-8.9) K/mcL BMP 12/05/17 04:15 Sodium 133 L Potassium 5.1 Chloride 106 Carbon Dioxide 19 L BUN 76 H Creatinine 3.41 H Glucose 121 H Calcium 8.4 L Liver Function 12/05/17 Range/Units 04:15 Albumin 2.6 L (3.5-5.7) g/dL Urine 12/05/17 Range/Units 05:10 Urine Color Yellow (Yellow) Urine Clarity Turbid A (Clear) Urine pH 6.5 (5.0-8.0) pH Units Ur Specific [place] 1.012 (1.010-1.025) Urine Protein 100 H (Neg-Trace) mg/dL Urine Glucose (UA) Normal (Normal) mg/dL - ABG Interpretation ABG results: PT/INR, D-dimer PT 12.5 Seconds (9.4-12.1) H 12/03/17 03:19 Consult Discharge Plan - Plan Referrals: Macario Diallo MD [Primary Care Provider] -
[2017-12-05] MEDS ORDERED: 0.9 % Sodium Chloride 250 ML ONE ×2 (09:51→13:16)
--- NOTE | 2017-12-05 11:02 | Nephrology Progress Note ---
Date of Encounter: 12/05/17 Time of Encounter: 09:00 - Assessment and Plan (1) MERNA (acute kidney injury) Status: Resolved Trending better. Found to have chronic b/l hydro, and Urology was previously consulted. I suspect this hydro is chronic, and may suggest that she has chronic reflux/obstructive nephropathy. No urgent HD today indicated. Will make plans for outpt referral for [facility] first. Anemia: transfusion as per primary. Mild hyperkalemia: renal diet Left rib pain, she had fallen UTI Citrobacter: as per primary. Follow a renal protective strategy (2) Dehydration Status: Resolved (3) Acute kidney injury superimposed on chronic kidney disease Status: Acute (4) Rib pain Status: Acute (5) UTI (urinary tract infection) Status: Acute Qualifiers: Urinary tract infection type: acute cystitis Hematuria presence: without hematuria Qualified Code(s): N30.00 - Acute cystitis without hematuria (6) Hyperkalemia Status: Chronic (7) Bilateral hydronephrosis Status: Chronic Subjective Principal diagnosis: MERNA on CKD Interval history: Pt was s/e earlier in the day. She reported feeling left sided discomfort since having a fall on her left side, but she did not affirm uremic complaints ( i.e., she did not affirm symptoms of renal failure including diminished appetite , confusion, twitching or sever swelling). She said that she is scheduled to see Dr. Meza in the clinic next week. Objective - Vital Signs Vital signs: Vital Signs Temp Pulse Resp BP Pulse Ox 12/05/17 10:24 98 F 89 18 160/72 98 12/05/17 10:09 98.1 F 89 18 159/80 95 12/05/17 07:35 97.7 F 87 17 130/65 99 12/05/17 04:18 97.9 F 87 18 129/66 100 12/05/17 00:10 98.4 F 79 17 143/66 97 12/04/17 20:47 99.1 F 85 17 156/73 98 12/04/17 15:28 98.1 F 85 18 129/71 98 12/04/17 11:18 99.0 F 83 16 135/69 97 Intake and Output 12/04/17 12/05/17 12/05/17 23:59 07:59 15:59 Intake Total 1240 / 1240 240 / 240 Output Total 450 / 450 2100 / 2099 800 / 800 Balance -440 / -440 -860 / -860 -560 / -560 Intake: IV Fluids 1000 / 1000 0.45% Sodium Chloride 1000 Ml 1000 / 1000 1000 Ml 1,000 ML @ 60 mls/hr IVC .[id number] [facility] Rx#:[id number] Rocephin 1,000 MG In Water for inj. (sterile) 10 ML @ 300 mls/ hr IVP Q24H [facility] Rx#:[id number] Oral 240 / 240 240 / 240 Blood Product 0 / 0 Rbcs Leuko Poor As-1 Unit 0 / 0 [id number] Output: Catheter 450 / 450 2099 / 2099 800 / 800 Other: Meal Breakfast Percent of Meal Consumed 80% Blood Glucose* 344 212 - General Appearance Exam: General appearance: Present: well-developed (but thin), fatigue, frail EENT: Present: ATNC, PERRL, mucous membranes moist Respiratory: Present: clear Cardiology: Present: no edema, normal S1, normal S2 Gastrointestinal: Present: normoactive bowel sounds, no tenderness, no guarding Integumentary: Present: warm and dry Neurologic: Present: no focal deficit, no asterixis Musculoskeletal: Present: no erythema, no cyanosis Psychiatric: Present: mood/affect appropriate, cooperative - Lab 12/10/17 01:26 12/10/17 01:26 Most recent lab results Calcium 8.4 mg/dL (8.6-10.3) L 12/05/17 04:15 Phosphorus 4.0 mg/dL (2.7-4.5) 12/05/17 04:15 Magnesium 1.8 mg/dL (1.6-2.6) 12/03/17 03:19 Urine Creatinine 22 mg/dL 12/03/17 20:41 Urine Sodium 61.2 mEq/L 12/03/17 20:41 Urine Total Protein 95 mg/dL (1-14) H 12/03/17 20:41 Consult Discharge Plan - Plan Instructions: Urinary Tract Infection in Women (DC), Hyperkalemia (DC) Additional Instructions: Follow up with PCP in 1 week after discharge. Recheck BMP and magnesium at that time (hyperkalemia and hypomagnesemia). Follow up with nephrology in 3-4 weeks as directed. Follow up with urology in 1-2 weeks for chronic bilateral hydronephrosis. Referrals: Christoph Giraldo MD [Partnered Physician] - 12/24/17 8:20 am (Please follow up as schedule...) Macario Diallo MD [Primary Care Provider] - 12/15/17 3:15 pm (Please follow up as schedule...) Cruzito Alan DO [Partnered Physician] - 01/15/18 11:30 am (Please follow up as schedule...) Prescriptions: Ciprofloxacin HCl [Cipro] 500 mg PO DAILY 1 Days #1 tablet
[2017-12-05] MEDS: traMADol 50 MG TABLET PO PRN (13:08)
[2017-12-05] MEDS ORDERED: cloNIDine HCl 0.1 MG TABLET PO ONE (18:12)
[2017-12-05] MEDS: Insulin DETEMIR 100 UNIT/ML X5UNITS SQ SCH (21:28)
[2017-12-05] MEDS: cefTRIAXone 1,000 MG in Water for inj. (sterile) 20 ML 10 ML IVP SCH (22:42)
[2017-12-06] MEDS: *HR* Heparin 5,000 UNIT/ML VIAL SQ SCH ×2 (05:31→16:53)
[2017-12-06 05:57] LABS: Basophils % 0.4 %; Eosinophils # 0.4 K/mcL (0.0-0.6); Hematocrit 30.6 % (35.3-44.9); Immature Granulocytes % 0.5 % (0-4); Lymphocytes % 26.2 %; Mean Corpuscular Hemoglobin 28.3 pg (28.0-33.3); Mean Corpuscular Volume 85.7 fL (83.0-100.0); Mean Platelet Volume 9.1 fL (9.4-12.4); Monocytes # 0.6 K/mcL (0.0-1.3); Monocytes % 8.4 %; Neutrophils # 4.4 K/mcL (1.6-8.9); Platelet Count 251 K/mcL (140-400); Red Blood Count 3.57 M/mcL (3.82-4.97); Red Cell Distribution Width 14.2 % (11.5-14.5); Segmented Neutrophils % 59.5 %
[2017-12-06 06:01] LABS: Hemoglobin 10.1 g/dL (11.5-15.4)
[2017-12-06 06:16] LABS: Calcium 8.3 mg/dL (8.6-10.3); Potassium 5.3 mEq/L (3.5-5.1)
[2017-12-06] MEDS: Insulin LISPRO 300 UNITS/3 ML VIAL SQ SCH ×3 (07:40→16:54)
[2017-12-06] MEDS: Aspirin Enteric Coated 81 MG Tablet PO SCH (07:44)
[2017-12-06] MEDS: Gabapentin 100 MG CAPSULE PO SCH ×2 (07:44→19:33)
--- NOTE | 2017-12-06 15:29 | Internal Med Progress Note ---
Date of Encounter: 12/06/17 Time of Encounter: 15:19 - Assessment and plan (1) Acute worsening of stage 4 chronic kidney disease Current Visit: No Status: Acute Assessment and plan: Acute on chronic renal failure CKD-3 Cont IVF Trending down Strict I & O concern for obstructive uropathy with hydronephrosis cont naylor will consult urology in AM (2) Hyperkalemia Current Visit: No Status: Resolved Assessment and plan: Severe hyperkalemia secondary to acute renal failure Resolved (3) UTI (urinary tract infection) Current Visit: No Status: Resolved Assessment and plan: urine cx- Citro bacter cont Rocephin Qualifiers: Urinary tract infection type: acute cystitis Hematuria presence: with hematuria Qualified Code(s): N30.01 - Acute cystitis with hematuria (4) Abnormal EKG Current Visit: No Status: Acute Assessment and plan: Due to hyperkalemia resolved (5) Diabetes mellitus Current Visit: No Status: Chronic Assessment and plan: Medium dose sliding scale coverage and before meals at bedtime Accu-Cheks. 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 . No rib fractures seen on x-ray - Time Spent With Patient Total time spent is greater than 50% in coordination of care (as documented) at patient's floor/unit and/or counseling patient: - Subjective Interval history: Ms. Lacy is a 72 year old female with past medical history of CKD-4 DM 2, HTN, and recurrent hospitalizations for hyperkalemia, acute on chronic kidney disease , and UTIs. She presents to [facility] on 12/02/2017 with complaints of new onset weakness, nausea, and vomiting. In the ED, patient's was found to be profoundly hyperkalemic at 8.2 and her Cr-5.88 . Pt was admitted in the hospital and started on IV hdyration and NaHco3 gtt. Her K got corrected and Cr started trending down. Pt was seen and examined at bed side. She is alert, awake and O to self. Looks demented.. No events over night. - Constitutional Vitals: Temp Pulse Resp BP Pulse Ox 97.7 F 71 17 155/71 99 12/06/17 11:27 12/06/17 11:27 12/06/17 11:27 12/06/17 11:27 12/06/17 11:27 General appearance: Present: cooperative, A&O X 1, pleasant, no acute distress - Head Head exam: Present: atraumatic, normal inspection - Neck Neck exam general surgery: Present: supple - Respiratory Respiratory exam: Present: decreased breath sounds. Absent: respiratory distress, rhonchi, wheezes - Cardiovascular Cardiovascular exam: Present: RRR, +S1, +S2. Absent: tachycardia - GI/Abdominal GI/Abdominal exam: Present: normal bowel sounds, soft. Absent: rebound, rigid, tenderness - Extremities Exam Extremities exam: Absent: calf tenderness, pedal edema, tenderness - Back Exam Back exam: Absent: CVA tenderness (L), CVA tenderness (R) - Neurological Exam Neurological exam: Present: alert, oriented X3 - Psychiatric Psychiatric exam: Present: normal affect, normal mood - Skin Skin exam: Absent: rash Internal Medicine: Result - Labs CBC & Chem 7: 12/06/17 05:44 12/06/17 05:44 Labs: Short CBC 12/06/17 Range/Units 05:44 WBC 7.5 (4.3-11.1) K/mcL Hgb 10.1 L D (11.5-15.4) g/dL Hct 30.6 L (35.3-44.9) % Plt Count 251 (140-400) K/mcL Neutrophils # 4.4 (1.6-8.9) K/mcL BMP 12/06/17 05:44 Sodium 132 L Potassium 5.3 H Chloride 107 Carbon Dioxide 17 L BUN 71 H Creatinine 2.82 H Glucose 218 H Calcium 8.3 L - ABG Interpretation ABG results: PT/INR, D-dimer PT 12.5 Seconds (9.4-12.1) H 12/03/17 03:19 Consult Discharge Plan - Plan Referrals: Macario Diallo MD [Primary Care Provider] -
[2017-12-06] MEDS: 0.9 % Sodium Chloride 1,000 ML IVC SCH (16:51)
[2017-12-06] MEDS: traMADol 50 MG TABLET PO PRN (19:33)
[2017-12-06] MEDS: Insulin DETEMIR 100 UNIT/ML X5UNITS SQ SCH (19:35)
[2017-12-06] MEDS ORDERED: Insulin DETEMIR 100 UNIT/ML X5UNITS SQ SCH (21:00)
[2017-12-06] MEDS: cefTRIAXone 1,000 MG in Water for inj. (sterile) 20 ML 10 ML IVP SCH (23:14)
[2017-12-07] MEDS: *HR* Heparin 5,000 UNIT/ML VIAL SQ SCH ×2 (05:14→16:55)
[2017-12-07 05:31] LABS: Calcium 8.4 mg/dL (8.6-10.3); Magnesium 1.2 mg/dL (1.6-2.6); Potassium 5.3 mEq/L (3.5-5.1)
[2017-12-07] MEDS: Aspirin Enteric Coated 81 MG Tablet PO SCH (07:20)
[2017-12-07] MEDS: Gabapentin 100 MG CAPSULE PO SCH ×2 (07:20→21:08)
--- NOTE | 2017-12-07 11:02 | Internal Med Progress Note ---
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 Diabetes mellitus complication status: with kidney complications Diabetes mellitus complication detail: with chronic kidney disease Chronic kidney disease stage: stage 3 (moderate) Qualified Code(s): E11.22 - Type 2 diabetes mellitus with diabetic chronic kidney disease; N18.3 - Chronic kidney disease, stage 3 (moderate); N18.3 - Chronic kidney disease, stage 3 (moderate); 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; Z79.4 - correction (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; Z79.4 - correction (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; Z79.4 - correction (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 (2) Dehydration Current Visit: Yes Status: Acute Assessment and plan: will continue iv hydration (3) Bnfcx-hc-cpadbgr kidney injury Current Visit: No Status: Acute Assessment and plan: patient being followed by nephrology creating much better Qualifiers: Acute renal failure type: unspecified Chronic kidney disease stage: stage 3 (moderate) Qualified Code(s): N17.9 - Acute kidney failure, unspecified; N18.3 - Chronic kidney disease, stage 3 (moderate); N18.3 - Chronic kidney disease, stage 3 (moderate) (4) UTI (urinary tract infection) Current Visit: Yes Status: Acute Assessment and plan: will contnue on rocephin Qualifiers: Urinary tract infection type: acute cystitis Hematuria presence: without hematuria Qualified Code(s): N30.00 - Acute cystitis without hematuria (5) Hyperkalemia Current Visit: Yes Status: Resolved Assessment and plan: resolved (6) Rib pain Current Visit: Yes Status: Acute Assessment and plan: controlled - Time Spent With Patient Total time spent is greater than 50% in coordination of care (as documented) at patient's floor/unit and/or counseling patient: - Subjective Interval history: Patient with history of CK D, diabetes, hypertension, patient admitted with nausea vomiting generalized weakness and acute worsening renal failure creatinine was up to 5 with potassium of 8 also had a UTI treated with Rocephin this is day #4 Also being followed by nephrology creatinine has improved and just noted a hemoglobin was 10.4 now down to 7.3 patient is seen today and she says she feels better she is eating breakfast no acute issues no chest pain no shortness of breath. today 12/07 patient feels better no more nausea and vomitting - Constitutional Vitals: Temp Pulse Resp BP Pulse Ox 97.9 F 71 17 132/70 96 12/07/17 07:00 12/07/17 07:00 12/07/17 07:00 12/07/17 07:00 12/07/17 07:00 General appearance: Present: cooperative, A&O X 1, pleasant, no acute distress - Head Head exam: Present: atraumatic, normocephalic - Eye Eye exam: Present: PERRL, conjuntiva pink, sclera anicteric Pupils: Present: PERRL - Neck Neck exam general surgery: Present: supple, trachea midline. Absent: lymphadenopathy - Respiratory Respiratory exam: Present: CTAB. Absent: accessory muscle use, rales, rhonchi, wheezes - Cardiovascular Cardiovascular exam: Present: RRR, +S1, +S2. Absent: diastolic murmur, gallop, rubs, systolic murmur - GI/Abdominal GI/Abdominal exam: Present: normal bowel sounds, soft, no peritoneal signs. Absent: distended, tenderness - Extremities Exam Extremities exam: Present: warm, radial pulses palpable and symmetrical. Absent : calf tenderness, cyanotic, pedal edema - Neurological Exam Neurological exam: Present: CN II-XII intact, oriented X3, no focal deficits. Absent: pronater drift, facial droop, speech deficit - Skin Skin exam: Present: dry, intact Internal Medicine: Result - Labs CBC & Chem 7: 12/06/17 05:44 12/07/17 03:44 Labs: BMP 12/07/17 03:44 Sodium 133 L Potassium 5.3 H Chloride 109 H Carbon Dioxide 17 L BUN 70 H Creatinine 2.47 H Glucose 229 H Calcium 8.4 L - ABG Interpretation ABG results: PT/INR, D-dimer PT 12.5 Seconds (9.4-12.1) H 12/03/17 03:19 Consult Discharge Plan - Plan Referrals: Macario Diallo MD [Primary Care Provider] -
[2017-12-07] MEDS: Insulin DETEMIR 100 UNIT/ML X5UNITS SQ SCH ×2 (11:30→21:09)
--- NOTE | 2017-12-07 12:35 | Nephrology Progress Note ---
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 Renal diet Consider arranging outpatient follow up with Urology, re: chronic bilateral hydronephrosis. She'll need outpt follow up with me in about 3-5 weeks Plans for outpt AVF referral. Follow a renal protective strategy (2) Dehydration Status: Resolved (3) Acute kidney injury superimposed on chronic kidney disease Status: Acute (4) Rib pain Status: Acute (5) UTI (urinary tract infection) Status: Acute Qualifiers: Urinary tract infection type: acute cystitis Hematuria presence: without hematuria Qualified Code(s): N30.00 - Acute cystitis without hematuria (6) Hyperkalemia Status: Chronic (7) Bilateral hydronephrosis Status: Chronic Subjective Principal diagnosis: MERNA on CKD Interval history: Pt was s/e earlier in the day. She reported feeling left sided discomfort since having a fall on her left side, but she did not affirm uremic complaints ( i.e., she did not affirm symptoms of renal failure including diminished appetite , confusion, twitching or sever swelling). She voiced choosing in-center HD, when ever she would need it, vs other options, which I described such as PD; and , she affirmed wanting to have an outpt referral for a [facility]. Objective - Vital Signs Vital signs: Vital Signs Temp Pulse Resp BP Pulse Ox 12/07/17 11:02 97.9 F 71 15 144/79 99 12/07/17 07:00 97.9 F 71 17 132/70 96 12/07/17 04:12 97.9 F 64 17 157/99 98 12/06/17 23:38 97.9 F 71 17 162/78 97 12/06/17 19:16 98.3 F 79 17 150/75 98 12/06/17 15:43 97.9 F 76 17 164/70 97 Intake and Output 12/06/17 12/07/17 12/07/17 23:59 07:59 15:59 Intake Total 1080 / 1080 800 / 800 240 / 240 Output Total 1800 / 1800 2750 / 2750 Balance -720 / -720 -1950 / -1950 240 / 240 Intake: IV Fluids 800 / 800 0.9 % Sodium Chloride 1,000 ML 800 / 800 @ 60 mls/hr IVC .[id number] [facility] Rx #:[id number] Rocephin 1,000 MG In Water for inj. (sterile) 10 ML @ 300 mls/ hr IVP Q24H [facility] Rx#:[id number] Oral 1070 / 1070 0 / 0 240 / 240 Output: Urine 2300 / 2300 Catheter 1800 / 1800 450 / 450 Other: Meal TURKEY SANDWICH, ICE CREAM, JELLO, MILK Breakfast Percent of Meal Consumed 100% 100% Weight 52.6 kg Blood Glucose* 348 156 200 Patient Weight 12/07/17 23:59 Weight 52.6 kg - General Appearance Exam: General appearance: Present: well-developed (but thin), fatigue, frail EENT: Present: ATNC, PERRL, mucous membranes moist Respiratory: Present: clear Cardiology: Present: no edema, normal S1, normal S2 Gastrointestinal: Present: normoactive bowel sounds, no tenderness, no guarding Integumentary: Present: warm and dry Neurologic: Present: no focal deficit, no asterixis Musculoskeletal: Present: no erythema, no cyanosis Psychiatric: Present: mood/affect appropriate, cooperative - Lab 12/10/17 01:26 12/10/17 01:26 Most recent lab results Calcium 8.4 mg/dL (8.6-10.3) L 12/07/17 03:44 Phosphorus 4.0 mg/dL (2.7-4.5) 12/05/17 04:15 Magnesium 1.2 mg/dL (1.6-2.6) L 12/07/17 03:44 Urine Creatinine 22 mg/dL 12/03/17 20:41 Urine Sodium 61.2 mEq/L 12/03/17 20:41 Urine Total Protein 95 mg/dL (1-14) H 12/03/17 20:41 Consult Discharge Plan - Plan Instructions: Urinary Tract Infection in Women (DC), Hyperkalemia (DC) Additional Instructions: Follow up with PCP in 1 week after discharge. Recheck BMP and magnesium at that time (hyperkalemia and hypomagnesemia). Follow up with nephrology in 3-4 weeks as directed. Follow up with urology in 1-2 weeks for chronic bilateral hydronephrosis. Referrals: Christoph Giraldo MD [Partnered Physician] - 12/24/17 8:20 am (Please follow up as schedule...) Macario Diallo MD [Primary Care Provider] - 12/15/17 3:15 pm (Please follow up as schedule...) Cruzito Alan DO [Partnered Physician] - 01/15/18 11:30 am (Please follow up as schedule...) Prescriptions: Ciprofloxacin HCl [Cipro] 500 mg PO DAILY 1 Days #1 tablet
[2017-12-07] MEDS: 0.9 % Sodium Chloride 1,000 ML IVC SCH (16:55)
[2017-12-07] MEDS: traMADol 50 MG TABLET PO PRN (22:53)
[2017-12-07] MEDS: cefTRIAXone 1,000 MG in Water for inj. (sterile) 20 ML 10 ML IVP SCH (22:53)
[2017-12-08] MEDS: *HR* Heparin 5,000 UNIT/ML VIAL SQ SCH ×2 (05:39→17:38)
--- NOTE | 2017-12-08 08:01 | Internal Med Progress Note ---
Date of Encounter: 12/08/17 Time of Encounter: 07:59 - Assessment and plan (1) Diabetes mellitus Current Visit: No Status: Chronic Assessment and plan: chronic will continue sliding scale Qualifiers: Diabetes mellitus type: type 2 Diabetes mellitus alf insulin use: with alf use Diabetes mellitus complication status: with kidney complications Diabetes mellitus complication detail: with chronic kidney disease Chronic kidney disease stage: stage 3 (moderate) Qualified Code(s): E11.22 - Type 2 diabetes mellitus with diabetic chronic kidney disease; N18.3 - Chronic kidney disease, stage 3 (moderate); N18.3 - Chronic kidney disease, stage 3 (moderate); Z79.4 - assisted (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; Z79.4 - prepress manager (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; Z79.4 - assisted (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; Z79.4 - assisted (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 (2) Dehydration Current Visit: Yes Status: Acute Assessment and plan: now well hydrated (3) Nwktw-ry-zaqfadk kidney injury Current Visit: No Status: Acute Assessment and plan: improved nephrology following recheck bmp today Qualifiers: Acute renal failure type: unspecified Chronic kidney disease stage: stage 3 (moderate) Qualified Code(s): N17.9 - Acute kidney failure, unspecified; N18.3 - Chronic kidney disease, stage 3 (moderate); N18.3 - Chronic kidney disease, stage 3 (moderate) (4) UTI (urinary tract infection) Current Visit: Yes Status: Acute Assessment and plan: day # 5 of rocephin Qualifiers: Urinary tract infection type: acute cystitis Hematuria presence: without hematuria Qualified Code(s): N30.00 - Acute cystitis without hematuria (5) Hyperkalemia Current Visit: Yes Status: Resolved Assessment and plan: resolved (6) Rib pain Current Visit: Yes Status: Acute - Time Spent With Patient Total time spent is greater than 50% in coordination of care (as documented) at patient's floor/unit and/or counseling patient: - Subjective Interval history: Patient with history of CK D, diabetes, hypertension, patient admitted with nausea vomiting generalized weakness and acute worsening renal failure creatinine was up to 5 with potassium of 8 also had a UTI treated with Rocephin this is day #4 Also being followed by nephrology creatinine has improved and just noted a hemoglobin was 10.4 now down to 7.3 patient is seen today and she says she feels better she is eating breakfast no acute issues no chest pain no shortness of breath. today 12/08 patient feels better no more nausea and vomitting says her legs bother her yesterday but now back to normal - Constitutional Vitals: Temp Pulse Resp BP Pulse Ox 97.8 F 75 17 127/66 97 12/08/17 07:00 12/08/17 07:00 12/08/17 07:00 12/08/17 07:00 12/08/17 07:00 General appearance: Present: cooperative, A&O X 1, pleasant, no acute distress - Eye Eye exam: Present: PERRL, conjuntiva pink, sclera anicteric Pupils: Present: PERRL - Neck Neck exam general surgery: Present: supple, trachea midline. Absent: lymphadenopathy - Respiratory Respiratory exam: Present: CTAB. Absent: accessory muscle use, rales, rhonchi, wheezes - Cardiovascular Cardiovascular exam: Present: RRR, +S1, +S2. Absent: diastolic murmur, gallop, rubs, systolic murmur - GI/Abdominal GI/Abdominal exam: Present: normal bowel sounds, soft, no peritoneal signs. Absent: distended, tenderness Internal Medicine: Result - Labs CBC & Chem 7: 12/06/17 05:44 12/07/17 03:44 - ABG Interpretation ABG results: PT/INR, D-dimer PT 12.5 Seconds (9.4-12.1) H 12/03/17 03:19 - Impressions Impressions Ribs X-Ray 12/02/17 22:04 IMPRESSION: No evidence of acute focal rib abnormality. D/ / 12/03/2017 07:16:55 Stevo Pastrana MD / brett Interpreting Provider: Stevo Pastrana MD Consult Discharge Plan - Plan Referrals: Macario Diallo MD [Primary Care Provider] -
--- NOTE | 2017-12-08 08:29 | Nephrology Progress Note ---
Date of Encounter: 12/08/17 Time of Encounter: 08:25 - Assessment and Plan (1) MERNA (acute kidney injury) Current Visit: Yes Status: Acute Kidney function improving Scr 2.47, GFR 19; now at baseline Robust UOP 5250ml BMP one week after discharge F/U in office in 3-4 weeks (2) Hypomagnesemia Current Visit: No Status: Acute Mg 1.2 Defer to primary team (3) Chronic kidney disease, stage IV (severe) Current Visit: No Status: Chronic see above (4) Hyperkalemia Current Visit: Yes Status: Resolved K+ 5.3 stable Subjective Principal diagnosis: MERNA on CKD Interval history: Patient seen and examined. Sitting up in bed eating breakfast; states she is in no hurry to leave hospital because "at least I'm safe here in case something happens". Objective - Vital Signs Vital signs: Vital Signs Temp Pulse Resp BP Pulse Ox 12/08/17 07:00 97.8 F 75 17 127/66 97 12/08/17 03:47 97.8 F 69 17 132/85 97 12/08/17 00:02 98.1 F 63 17 177/74 99 12/07/17 20:35 97.9 F 69 17 190/78 98 12/07/17 16:19 97.4 F L 69 14 172/84 97 12/07/17 11:02 97.9 F 71 15 144/79 99 Intake and Output 12/07/17 12/08/17 12/08/17 23:59 07:59 15:59 Intake Total 300 / 300 240 / 240 Output Total 2500 / 2500 750 / 750 Balance -2200 / -2200 -510 / -510 Intake: Oral 300 / 300 240 / 240 Output: Catheter 2500 / 2500 750 / 750 Other: Stool Size Moderate Stool Consistency loose # Bowel Movements 1 Weight 53.4 kg Blood Glucose* 339 103 Patient Weight 12/08/17 23:59 Weight 53.4 kg - General Appearance General appearance: Present: well-developed, well-nourished EENT: Present: ATNC, mucous membranes moist, hearing intact, vision intact Neck: Present: supple Respiratory: Present: clear Cardiology: Present: no edema, normal S1, normal S2 Gastrointestinal: Present: no tenderness, no guarding Integumentary: Present: warm and dry Neurologic: Present: alert and oriented x3 Psychiatric: Present: mood/affect appropriate, cooperative - Lab 12/06/17 05:44 12/07/17 03:44 Most recent lab results Calcium 8.4 mg/dL (8.6-10.3) L 12/07/17 03:44 Phosphorus 4.0 mg/dL (2.7-4.5) 12/05/17 04:15 Magnesium 1.2 mg/dL (1.6-2.6) L 12/07/17 03:44 Urine Creatinine 22 mg/dL 12/03/17 20:41 Urine Sodium 61.2 mEq/L 12/03/17 20:41 Urine Total Protein 95 mg/dL (1-14) H 12/03/17 20:41 Consult Discharge Plan - Plan Referrals: Macario Diallo MD [Primary Care Provider] -
[2017-12-08] MEDS: Aspirin Enteric Coated 81 MG Tablet PO SCH (09:12)
[2017-12-08] MEDS: Gabapentin 100 MG CAPSULE PO SCH ×2 (09:12→22:05)
[2017-12-08] MEDS: Insulin DETEMIR 100 UNIT/ML X5UNITS SQ SCH ×2 (09:13→22:05)
[2017-12-08] MEDS: traMADol 50 MG TABLET PO PRN (15:40)
[2017-12-08] MEDS: cefTRIAXone 1,000 MG in Water for inj. (sterile) 20 ML 10 ML IVP SCH (22:05)
[2017-12-09] MEDS: 0.9 % Sodium Chloride 1,000 ML IVC SCH ×2 (04:54→09:09)
[2017-12-09] MEDS: *HR* Heparin 5,000 UNIT/ML VIAL SQ SCH ×2 (04:54→17:17)
[2017-12-09 05:01] LABS: Calcium 8.6 mg/dL (8.6-10.3); Potassium 5.6 mEq/L (3.5-5.1)
--- NOTE | 2017-12-09 07:45 | Nephrology Progress Note ---
Date of Encounter: 12/09/17 Time of Encounter: 11:00 - Assessment and Plan (1) Chronic kidney disease, stage IV (severe) Status: Chronic Stable renal function with an acute on chronic hyperkalemia noted today. I've ordered kayexalate. No indication for CARDIOGRAPHER at this point assuming the mild acute hyperkalemia improves. Renal diet Consider arranging outpatient follow up with Urology, re: chronic bilateral hydronephrosis. She'll need outpt follow up with me in about 3-5 weeks. Plans for outpt AVF referral. Anemia: transfusion as per primary. Goal Hgb 10-11, and may need outpt MAYELA at some point. Left rib pain, she had fallen. As per primary. UTI Citrobacter: as per primary. Follow a renal protective strategy; and avoid nephrotoxins. Be sure to dose Rx by GFR. (2) Hyperkalemia Status: Chronic (3) MERNA (acute kidney injury) Status: Resolved (4) Dehydration Status: Resolved (5) Rib pain Status: Acute (6) UTI (urinary tract infection) Status: Acute Qualifiers: Urinary tract infection type: acute cystitis Hematuria presence: without hematuria Qualified Code(s): N30.00 - Acute cystitis without hematuria (7) Bilateral hydronephrosis Status: Chronic Subjective Principal diagnosis: MERNA on CKD Interval history: Pt was s/e earlier in the day. She reported feeling left sided discomfort since having a fall on her left side, but she did not affirm uremic complaints ( i.e., she did not affirm symptoms of renal failure including diminished appetite , confusion, twitching or sever swelling). She voiced having no new complaints and denied N/V. Objective - Vital Signs Vital signs: Vital Signs Temp Pulse Resp BP Pulse Ox 12/09/17 04:32 97.9 F 68 16 106/60 97 12/09/17 00:26 97.9 F 70 16 171/80 97 12/08/17 19:13 98.6 F 76 16 156/70 99 12/08/17 15:24 97.8 F 73 17 156/68 97 12/08/17 11:00 146/62 12/08/17 10:37 98.0 F 76 16 134/75 99 Intake and Output 12/08/17 12/08/17 12/09/17 15:59 23:59 07:59 Intake Total 898 / 898 838 / 838 Output Total 850 / 850 700 / 700 1550 / 1550 Balance 48 / 48 138 / 138 -1550 / -1550 Intake: Oral 898 / 898 838 / 838 Output: Urine 300 / 300 Catheter 550 / 550 700 / 700 1550 / 1550 Other: Meal Lunch water and missy lemon napaimute missy lemon napaimute Percent of Meal Consumed 100% 100% Stool Size Small Stool Characteristics Normal for Patient # Bowel Movements 1 # Bowel Movement Diapers 1 Weight 55.2 kg Blood Glucose* 229 300 163 Patient Weight 12/09/17 23:59 Weight 55.2 kg - General Appearance Exam: General appearance: Present: well-developed (but thin), fatigue, frail EENT: Present: ATNC, PERRL, mucous membranes moist Respiratory: Present: clear Cardiology: Present: no edema, normal S1, normal S2 Gastrointestinal: Present: normoactive bowel sounds, no tenderness, no guarding Integumentary: Present: warm and dry Neurologic: Present: no focal deficit, no asterixis Musculoskeletal: Present: no erythema, no cyanosis Psychiatric: Present: mood/affect appropriate, cooperative - Lab 12/10/17 01:26 12/10/17 01:26 Most recent lab results Calcium 8.6 mg/dL (8.6-10.3) 12/09/17 04:02 Phosphorus 4.0 mg/dL (2.7-4.5) 12/05/17 04:15 Magnesium 1.2 mg/dL (1.6-2.6) L 12/07/17 03:44 Urine Creatinine 22 mg/dL 12/03/17 20:41 Urine Sodium 61.2 mEq/L 12/03/17 20:41 Urine Total Protein 95 mg/dL (1-14) H 12/03/17 20:41 Consult Discharge Plan - Plan Instructions: Urinary Tract Infection in Women (DC), Hyperkalemia (DC) Additional Instructions: Follow up with PCP in 1 week after discharge. Recheck BMP and magnesium at that time (hyperkalemia and hypomagnesemia). Follow up with nephrology in 3-4 weeks as directed. Follow up with urology in 1-2 weeks for chronic bilateral hydronephrosis. Referrals: Christoph Giraldo MD [Partnered Physician] - 12/24/17 8:20 am (Please follow up as schedule...) Macario Diallo MD [Primary Care Provider] - 12/15/17 3:15 pm (Please follow up as schedule...) Cruzito Alan DO [Partnered Physician] - 01/15/18 11:30 am (Please follow up as schedule...) Prescriptions: Ciprofloxacin HCl [Cipro] 500 mg PO DAILY 1 Days #1 tablet
[2017-12-09] MEDS ORDERED: NON-FORMULARY MEDICATION 1 EACH EACH (Oxygen [Oxygen] 2 L) NS SCH (08:00)
[2017-12-09] MEDS: Cholecalciferol (D-3) 1,000 UNIT TABLET PO SCH (09:09)
[2017-12-09] MEDS: Gabapentin 100 MG CAPSULE PO SCH ×2 (09:09→20:03)
[2017-12-09] MEDS: Aspirin Enteric Coated 81 MG Tablet PO SCH (09:10)
[2017-12-09] MEDS: Insulin DETEMIR 100 UNIT/ML X5UNITS SQ SCH ×2 (09:10→21:10)
[2017-12-09] MEDS: cefTRIAXone 1,000 MG in Water for inj. (sterile) 20 ML 10 ML IVP SCH (11:29)
[2017-12-09] MEDS: traMADol 50 MG TABLET PO PRN (20:03)
--- NOTE | 2017-12-09 20:57 | Internal Med Progress Note ---
Date of Encounter: 12/09/17 Time of Encounter: 15:57 - Assessment and plan (1) Hyperkalemia Current Visit: Yes Status: Acute Assessment and plan: Secondary to acute renal failure. Slight increase in K+ to 5.6 this AM. Nephrology following; appreciate input. They want kayexalate administration and monitor of potassium level. Recheck BMP in AM. (2) Abnormal EKG Current Visit: Yes Status: Resolved Assessment and plan: Secondary to hyperkalemia. Resolved. (3) Diabetes mellitus Current Visit: Yes Status: Chronic Assessment and plan: Continue accucheck and moderate dose SSI QID AC/HS. Continue levemir. 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 (5) HTN (hypertension) Current Visit: Yes Status: Chronic Assessment and plan: Continue home medications. Qualifiers: Hypertension type: essential hypertension Qualified Code(s): I10 - Essential (primary) hypertension (6) Acute worsening of stage 4 chronic kidney disease Current Visit: No Status: Acute Assessment and plan: Acute on chronic renal failure CKD-3. Creatinine improved and now stable. Nephrology consulted; appreciate input. They recommend outpatient urology follow up for obstructive uropathy with hydronephrosis (chronic issue). Needs close outpatient nephrology follow up at discharge. (7) UTI (urinary tract infection) Current Visit: Yes Status: Acute Assessment and plan: Urine culture with Citrobacter. Continue IV rocephin. Qualifiers: Urinary tract infection type: acute cystitis Hematuria presence: with hematuria Qualified Code(s): N30.01 - Acute cystitis with hematuria (8) Rib pain Current Visit: Yes Status: Acute Assessment and plan: Chest x-ray obtained in the ED is negative for acute radiographic finding. Continue pain control. (9) DVT prophylaxis Current Visit: Yes Status: Acute Assessment and plan: Continue SQ heparin. - Time Spent With Patient Total time spent is greater than 50% in coordination of care (as documented) at patient's floor/unit and/or counseling patient: Greater than 35 minutes - Subjective Interval history: Patient had no acute events overnight. She is feeling "OK" this AM. She expresses distaste for kayexalate, but I counselled her on her hyperkalemia and importance of drinking it as directed. She voiced understanding. She denies chest pain, palpitations, SOB, fever, or chills. She has no other complaints at this time. - Constitutional Vitals: Temp Pulse Resp BP Pulse Ox 98.0 F 86 16 153/72 96 12/09/17 19:59 12/09/17 19:59 12/09/17 19:59 12/09/17 19:59 12/09/17 19:59 General appearance: Present: cooperative, A&O X 3, pleasant, no acute distress, answers questions appropriately - Respiratory Respiratory exam: Present: CTAB. Absent: accessory muscle use, rales, rhonchi, wheezes Additional comments: Normal WOB - Cardiovascular Cardiovascular exam: Present: RRR, +S1, +S2. Absent: diastolic murmur, gallop, rubs, systolic murmur Additional comments: No BLE edema - GI/Abdominal GI/Abdominal exam: Present: normal bowel sounds, soft. Absent: distended, hepatomegaly, mass, splenomegaly, tenderness - Psychiatric Psychiatric exam: Present: normal affect, normal mood. Absent: agitated, anxious, depressed - Skin Skin exam: Present: dry, intact, warm. Absent: cyanosis, rash Internal Medicine: Result - Labs CBC & Chem 7: 12/06/17 05:44 12/09/17 14:41 Labs: BMP 12/09/17 12/09/17 04:02 14:41 Sodium 136 Potassium 5.6 H 6.0 H Chloride 113 H Carbon Dioxide 14 L BUN 67 H Creatinine 2.43 H Glucose 203 H Calcium 8.6 - ABG Interpretation ABG results: PT/INR, D-dimer PT 12.5 Seconds (9.4-12.1) H 12/03/17 03:19 Consult Discharge Plan - Plan Referrals: Macario Diallo MD [Primary Care Provider] - (web request sent on 12/09/17)
[2017-12-10 02:00] LABS: Basophils % 0.4 %; Eosinophils # 0.3 K/mcL (0.0-0.6); Eosinophils % 6.1 %; Hematocrit 30.4 % (35.3-44.9); Hemoglobin 9.7 g/dL (11.5-15.4); Immature Granulocytes % 1.1 % (0-4); Lymphocytes # 1.9 K/mcL (0.6-4.6); Lymphocytes % 35.7 %; Mean Corpuscular HGB Conc 31.9 g/dL (31.6-35.5); Mean Corpuscular Hemoglobin 28.8 pg (28.0-33.3); Mean Corpuscular Volume 90.2 fL (83.0-100.0); Mean Platelet Volume 8.9 fL (9.4-12.4); Monocytes # 0.7 K/mcL (0.0-1.3); Neutrophils # 2.4 K/mcL (1.6-8.9); Platelet Count 285 K/mcL (140-400); Red Blood Count 3.37 M/mcL (3.82-4.97); Red Cell Distribution Width 14.8 % (11.5-14.5); Segmented Neutrophils % 44.7 %
[2017-12-10] MEDS: 0.9 % Sodium Chloride 1,000 ML IVC SCH (02:15)
[2017-12-10] MEDS: *HR* Heparin 5,000 UNIT/ML VIAL SQ SCH (05:54)
[2017-12-10 06:28] LABS: Calcium 8.2 mg/dL (8.6-10.3); Magnesium 1.2 mg/dL (1.6-2.6); Potassium 4.5 mEq/L (3.5-5.1)
[2017-12-10] MEDS: Insulin DETEMIR 100 UNIT/ML X5UNITS SQ SCH (08:22)
[2017-12-10] MEDS: Cholecalciferol (D-3) 1,000 UNIT TABLET PO SCH (08:23)
[2017-12-10] MEDS: Gabapentin 100 MG CAPSULE PO SCH (08:23)
[2017-12-10] MEDS: Aspirin Enteric Coated 81 MG Tablet PO SCH (08:23)
--- NOTE | 2017-12-10 08:27 | Nephrology Progress Note ---
Date of Encounter: 12/10/17 Time of Encounter: 08:25 - Assessment and Plan (1) Hyperkalemia Current Visit: Yes Status: Chronic K+ improved with Kayexalate-now 4.5 OK from a kidney standpoint for patient to be discharge F/U in office in 3-4 weeks BMP in one week (2) MERNA (acute kidney injury) Current Visit: Yes Status: Resolved Kidney function improving Scr 2.43, GFR 19; now at baseline Robust UOP 3300ml BMP one week after discharge F/U in office in 3-4 weeks (3) Chronic kidney disease, stage IV (severe) Current Visit: No Status: Chronic see above (4) Hypomagnesemia Current Visit: No Status: Acute Mg 1.2 Defer to primary team Subjective Principal diagnosis: MERNA on CKD Interval history: Patient seen and examined. Sitting up in bed eating breakfast, states her stomach hurts since taking the Kayexalate. Objective - Vital Signs Vital signs: Vital Signs Temp Pulse Resp BP Pulse Ox 12/10/17 07:00 98.5 F 65 16 150/52 98 12/10/17 04:35 98 F 72 16 154/60 98 12/10/17 00:08 97.4 F L 80 16 147/74 97 12/09/17 19:59 98.0 F 86 16 153/72 96 12/09/17 16:17 98.1 F 73 16 152/77 97 12/09/17 11:23 98 F 75 16 119/73 99 Intake and Output 12/09/17 12/10/17 12/10/17 23:59 07:59 15:59 Intake Total 220 / 220 1000 / 1000 Output Total 550 / 550 1800 / 1800 Balance -330 / -330 -800 / -800 Intake: IV Fluids 1000 / 1000 0.9 % Sodium Chloride 1,000 ML 1000 / 1000 @ 60 mls/hr IVC .[id number] Rx #:[id number] Oral 220 / 220 Output: Catheter 550 / 550 1800 / 1800 Other: Stool Size Large Stool Consistency liquid Stool Color Brown # Bowel Movement Diapers 1 1 Weight 55.2 kg Blood Glucose* 283 180 Patient Weight 12/10/17 23:59 Weight 55.2 kg - General Appearance General appearance: Present: well-developed, well-nourished EENT: Present: ATNC, mucous membranes moist, hearing intact, vision intact Neck: Present: supple Respiratory: Present: clear Cardiology: Present: normal S1, normal S2 Gastrointestinal: Present: no tenderness, no guarding Integumentary: Present: warm and dry Neurologic: Present: alert and oriented x3 Psychiatric: Present: mood/affect appropriate, cooperative - Lab 12/10/17 01:26 12/10/17 01:26 Most recent lab results Calcium 8.2 mg/dL (8.6-10.3) L 12/10/17 01:26 Phosphorus 4.0 mg/dL (2.7-4.5) 12/05/17 04:15 Magnesium 1.2 mg/dL (1.6-2.6) L 12/10/17 01:26 Urine Creatinine 22 mg/dL 12/03/17 20:41 Urine Sodium 61.2 mEq/L 12/03/17 20:41 Urine Total Protein 95 mg/dL (1-14) H 12/03/17 20:41 Consult Discharge Plan - Plan Referrals: Macario Diallo MD [Primary Care Provider] - (web request sent on 12/09/17)
[2017-12-10] MEDS: cefTRIAXone 1,000 MG in Water for inj. (sterile) 20 ML 10 ML IVP SCH (10:29)
[2017-12-10 11:00] VITALS: BP 156/68
[2017-12-10] MEDS ORDERED: *HR* Magnesium Sulfate 1 GM/2 ML VIAL IM STA (11:17)
--- NOTE | 2017-12-10 11:20 | Discharge Summary ---
- NOTES TO OUTPATIENT PROVIDER Notes to Outpatient Provider: Follow up with PCP in 1 week after discharge. Recheck BMP and magnesium at that time (hyperkalemia and hypomagnesemia). Follow up with nephrology in 3-4 weeks as directed. Follow up with urology in 1 -2 weeks for chronic bilateral hydronephrosis. 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: with [facility] use Diabetes mellitus complication status: with kidney complications Diabetes mellitus complication detail: with chronic kidney disease Chronic kidney disease stage: stage 3 (moderate) Qualified Code(s): E11.22 - Type 2 diabetes mellitus with diabetic chronic kidney disease; N18.3 - Chronic kidney disease, stage 3 (moderate); Z79.4 - assisted (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 (4) Hyponatremia Priority: Secondary Status: Resolved (5) HTN (hypertension) Priority: Secondary Status: Chronic Qualifiers: Hypertension type: essential hypertension Qualified Code(s): I10 - Essential (primary) hypertension (6) Acute worsening of stage 4 chronic kidney disease Priority: Secondary Status: Acute (7) UTI (urinary tract infection) Priority: Secondary Status: Acute Qualifiers: Urinary tract infection type: acute cystitis Hematuria presence: with hematuria Qualified Code(s): N30.01 - Acute cystitis with hematuria (8) Rib pain Priority: Secondary Status: Acute (9) Hypomagnesemia Priority: Secondary Status: Acute (10) DVT prophylaxis Priority: Secondary Status: Acute Hospital course: Ms. Lacy is a 72 year old female admitted for hyperkalemia, MERNA on CKD, and UTI. Patient was admitted to general medical floor with telemetry. She given calcium gluconate and started on kayexalate and gentle IV hydration with 1/2 NS. She was continued on IV rocephin for UTI. She subsequently received bicarbonate and insulin with D50 for hyperkalemia. Hyperkalemia improved with potassium of 4.5 today on day of discharge. Urine culture grew citrobacter freundii sensitive to rocephin and cipro. She will be transitioned to PO cipro at discharge for 10 total days of treatment. Nephrology was consulted and followed patient. MERNA improved. Nephrology recommended outpatient urology consult for chronic bilateral hydronephrosis. Erik Monroy will follow up with urology in 1-2 weeks after discharge. She will follow up with nephrology in 3- 4 weeks as directed. She will follow up with PCP in 1 week after discharge; repeat BMP and magnesium will be checked at that time. Discharge discussed with: patient, nurse, social work, other (Pharmacist) - Time Spent with Patient Total time spent providing and/or coordinating discharge services: Greater than 30 minutes - Discharge Medications Prescriptions: Ciprofloxacin HCl [Cipro] 500 mg PO DAILY 1 Days #1 tablet Home Medications: Metoprolol [Lopressor] 12.5 mg PO BID 03/01/16 [History] Aspirin Enteric Coated [Aspirin EC] 81 mg PO DAILY 08/04/17 [History] Oxygen 2 l NS AD 08/04/17 [History] Gabapentin [Neurontin] 100 mg PO BID 09/17/17 [History] Ferrous Sulfate 325 mg PO BID 10/28/17 [History] Ondansetron HCl [Zofran] 4 mg PO TID PRN 10/28/17 [History] Pravastatin Sodium [Pravachol] 10 mg PO HS 10/28/17 [History] Cholecalciferol (Vitamin D3) [Vitamin D3] 1,000 unit PO DAILY 11/16/17 [History] Insulin Glargine,Hum.rec.anlog [Basaglar Kwikpen U-100] 40 unit SQ HS 11/16/17 [ History] Ciprofloxacin HCl [Cipro] 500 mg PO DAILY 1 Days #1 tablet 12/10/17 [Rx] Allergies/Adverse Reactions: 3 Allergy/AdvReac Type Severity Reaction Status Date / Time acetaminophen [From Tylenol] Allergy See Verified 11/16/17 08:20 Comments Influenza Virus Vaccines Allergy See Verified 10/27/17 21:42 Comments Date of admission: 12/02/17 21:06 Primary care physician: Macario Diallo MD Consults: Nephrology 12/04/17 07:47 Consult to Occupational Therapy [CONS] Routine Comment: Evaluate, develop and implement POC Reason for Consult: pt is documented as max assist, poss ecf Does patient have active BEDREST order?: No Is patient medically & hemodynamically stable?: Yes Consult to Physical Therapy [CONS] Routine Comment: Evaluate, develop and implement POC Reason for Consult: pt is max assist per documentation, poss ecf Does patient have active BEDREST order?: No Is patient medically & hemodynamically stable?: Yes 12/04/17 15:49 Consult to Car Shakeout Operator [CONS] Routine Reason for SW Consult: pt/ot recommends snf Discharging clinician: Olayinka Callahan Anticipated date of discharge: 12/10/17 - Constitutional Vitals: Temp Pulse Resp BP Pulse Ox 98.1 F 68 16 156/68 97 12/10/17 10:54 12/10/17 10:54 12/10/17 10:54 12/10/17 10:54 12/10/17 10:54 General appearance: Present: cooperative, A&O X 3, pleasant, no acute distress, answers questions appropriately - Respiratory Respiratory exam: Present: CTAB. Absent: accessory muscle use, rales, rhonchi, wheezes Additional comments: Normal WOB - Cardiovascular Cardiovascular exam: Present: RRR, +S1, +S2. Absent: diastolic murmur, gallop, rubs, systolic murmur Additional comments: No BLE edema - GI/Abdominal GI/Abdominal exam: Present: normal bowel sounds, soft. Absent: distended, hepatomegaly, mass, splenomegaly, tenderness - Psychiatric Psychiatric exam: Present: normal affect, normal mood. Absent: agitated, anxious, depressed - Skin Skin exam: Present: dry, intact, warm. Absent: cyanosis, rash - Patient Status Disposition: Home Health Service Condition: Good Overall status at discharge: patient is progressing back to baseline - Discharge Instructions Instructions: Urinary Tract Infection in Women (DC), Hyperkalemia (DC) Follow Up With: Macario Diallo MD [Primary Care Provider] - (web request sent on 12/09/17) Additional Instructions: Follow up with PCP in 1 week after discharge. Recheck BMP and magnesium at that time (hyperkalemia and hypomagnesemia). Follow up with nephrology in 3-4 weeks as directed. Follow up with urology in 1-2 weeks for chronic bilateral hydronephrosis. - Diet and Activity Activity: resume usual activities as tolerated Diet: diabetic diet, low fat, low cholesterol, low salt diet, other (Cardiac Diet, Renal Diet)
--- NOTE | 2017-12-10 11:47 | Physician Discharge Referral ---
Home Health/Hosp Referral Info Transfer to: Home Health Provider in Charge Post Discharge: PCP - Diagnosis (1) Hyperkalemia Priority: Primary Status: Resolved (2) Abnormal EKG Priority: Secondary Status: Resolved (3) Diabetes mellitus Priority: Secondary Status: Chronic (4) Hyponatremia Priority: Secondary Status: Resolved (5) HTN (hypertension) Priority: Secondary Status: Chronic (6) Acute worsening of stage 4 chronic kidney disease Priority: Secondary Status: Acute (7) UTI (urinary tract infection) Priority: Secondary Status: Acute (8) Rib pain Priority: Secondary Status: Acute (9) Hypomagnesemia Priority: Secondary Status: Acute (10) DVT prophylaxis Priority: Secondary Status: Acute - Respiratory Orders Oxygen / L per min (2L NC) Smoking Cessation: Smoking cessation has been advised. For more information, call the [employer] Quit Line at 7-572-ETIS-NOW. - Diet/Nutrition Diet/Nutrition Orders: No Added Salt (GWENDOLYN), Renal, Cardiac, No Concentrated Sweets (Diabetic Diet) - Activity Activity: List: Per physical therapy - Services Needed Following services are medically necessary services: Nursing, Home Health Aide, Physical Therapy, Occupational Therapy - Transfer Medications Prescriptions: Ciprofloxacin HCl [Cipro] 500 mg PO DAILY 1 Days #1 tablet Home Medications: Metoprolol [Lopressor] 12.5 mg PO BID 03/01/16 [History] Aspirin Enteric Coated [Aspirin EC] 81 mg PO DAILY 08/04/17 [History] Oxygen 2 l NS AD 08/04/17 [History] Gabapentin [Neurontin] 100 mg PO BID 09/17/17 [History] Ferrous Sulfate 325 mg PO BID 10/28/17 [History] Ondansetron HCl [Zofran] 4 mg PO TID PRN 10/28/17 [History] Pravastatin Sodium [Pravachol] 10 mg PO HS 10/28/17 [History] Cholecalciferol (Vitamin D3) [Vitamin D3] 1,000 unit PO DAILY 11/16/17 [History] Insulin Glargine,Hum.rec.anlog [Basaglar Kwikpen U-100] 40 unit SQ HS 11/16/17 [ History] Ciprofloxacin HCl [Cipro] 500 mg PO DAILY 1 Days #1 tablet 12/10/17 [Rx] Allergies/Adverse Reactions: 3 Allergy/AdvReac Type Severity Reaction Status Date / Time acetaminophen [From Tylenol] Allergy See Verified 11/16/17 08:20 Comments Influenza Virus Vaccines Allergy See Verified 10/27/17 21:42 Comments Certification: Further, I certify that my clinical findings support that this patient is homebound (i.e. absences from home require considerable and taxing effort and are for medical reasons or yazidi services or infrequently or short duration when for other reasons) because: Stage 4 CKD, Generalized Debility. Homebound Reason: Patient requires assistance of a person or device to safely leave home, Leaving home requires considerable and taxing effort due to condition Attestation: My signature below is to certify that this patient is under my care and that I, or nurse practitioner, or a physician's processing assistant working with me, has a face-to -face encounter with this patient.
== END 2017-12-10 14:53 | disposition home health service (06) | DRG 683 ==
LOC: EMEROO 17:50 → 2ANU 17:50 → ICNU 21:05 → 2ANU 12-03 17:41
PROVIDERS: ADMIT Family Medicine; ATTEND Internal Medicine

== ENCOUNTER 2017-12-16 14:08 | Observation (INO) ==
--- NOTE | 2017-12-16 14:29 | Emergency Department Note ---
Disposition Clinical Impression: Hyponatremia, Tfdnu-iz-ssrilba kidney injury, Hyperkalemia, Fatigue Disposition: Admitted As Inpatient Condition: Good General Adult HPI - General Chief complaint: ED Weakness Stated complaint: light headed, potassium high Time Seen by Provider: 12/16/17 14:26 Source: patient Limitations: no limitations - History of Present Illness Pain Scale: 9 - Related Data Home Medications Medication Instructions Recorded Confirmed Metoprolol [Lopressor] 12.5 mg PO BID 03/01/16 12/16/17 Aspirin Enteric Coated [Aspirin EC] 81 mg PO DAILY 08/04/17 12/16/17 Oxygen 2 l NS AD 08/04/17 12/16/17 Gabapentin [Neurontin] 100 mg PO BID 09/17/17 12/16/17 Ferrous Sulfate 325 mg PO BID 10/28/17 12/16/17 Ondansetron HCl [Zofran] 4 mg PO TID PRN 10/28/17 12/16/17 Pravastatin Sodium [Pravachol] 10 mg PO HS 10/28/17 12/16/17 Cholecalciferol (Vitamin D3) 1,000 unit PO DAILY 11/16/17 12/16/17 [Vitamin D3] Insulin Glargine,Hum.rec.anlog 40 unit SQ HS 11/16/17 12/16/17 [Basaglar Kwikpen U-100] Allergies Allergy/AdvReac Type Severity Reaction Status Date / Time acetaminophen [From Tylenol] Allergy See Verified 11/16/17 08:20 Comments Influenza Virus Vaccines Allergy See Verified 10/27/17 21:42 Comments Past Medical History - Past Medical History Medical history: Reports: non-contributory, diabetes, hyperlipidemia, hypertension, renal disease, other Surgical history: Reports: appendectomy, cholecystectomy, hysterectomy Psychiatric history: Reports: no psych history MIGRATORY FARM HAND history: Reports: no MIGRATORY FARM HAND history - Social History Smoking Status: Never smoker Smokeless Tobacco Status: No Alcohol use: Reports: none Drug use: Reports: none Physical Exam - General Limitations: no limitations General appearance: alert, anxious Course Vital Signs Temperature 97.7 F 12/16/17 14:14 Pulse Rate 90 12/16/17 14:14 Respiratory Rate 16 12/16/17 14:14 Blood Pressure 144/83 12/16/17 14:14 O2 Sat by Pulse Oximetry 99 05/16/18 14:14 Temperature 97.9 F 12/17/17 11:23 Pulse Rate 76 12/17/17 11:23 Respiratory Rate 16 12/17/17 11:23 Blood Pressure 130/68 12/17/17 11:23 O2 Sat by Pulse Oximetry 98 12/17/17 11:23 Oxygen Delivery Oxygen Delivery Room Air Medical Decision Making - Lab Data Result diagrams: 12/17/17 06:05 12/17/17 06:05 Lab Results 12/16/17 12/16/17 Range/Units 14:30 14:30 WBC 8.6 D (4.3-11.1) K/mcL RBC 4.05 (3.82-4.97) M/mcL Hgb 11.7 D (11.5-15.4) g/dL Hct 35.2 L (35.3-44.9) % MCV 86.9 (83.0-100.0) fL MCH 28.9 (28.0-33.3) pg MCHC 33.2 (31.6-35.5) g/dL RDW 14.3 (11.5-14.5) % Plt Count 352 (140-400) K/mcL MPV 9.4 (9.4-12.4) fL Immature Gran % 0.3 (0-4) % Seg Neutrophils % 58.6 % Lymphocytes % 29.8 % Monocytes % 5.9 % Eosinophils % 5.1 % Basophils % 0.3 % Neutrophils # 5.0 (1.6-8.9) K/mcL Lymphocytes # 2.6 (0.6-4.6) K/mcL Monocytes # 0.5 (0.0-1.3) K/mcL Eosinophils # 0.4 (0.0-0.6) K/mcL Basophils # 0.0 (0.0-0.2) K/mcL Sodium 128 L (136-145) mEq/L Potassium 5.4 H (3.5-5.1) mEq/L Chloride 98 (98-107) mEq/L Carbon Dioxide 21 L (23-29) mEq/L BUN 81 H (8-23) mg/dL Creatinine 3.22 H (0.60-1.20) mg/dL Est GFR ( Amer) 17 L (> 60) Est GFR (Non-Af Amer) 14 L (> 60) BUN/Creatinine Ratio 25 (6-26) Glucose 226 H (70-105) mg/dL Calculated Osmolality 297 (280-300) Calcium 9.2 (8.6-10.3) mg/dL Magnesium 1.7 (1.6-2.6) mg/dL Total Bilirubin 0.2 L (0.3-1.0) mg/dL AST 11 L (13-39) Units/L ALT 15 (7-52) Units/L Alkaline Phosphatase 147 H (34-104) Units/L Serum Total Protein 9.3 H (6.4-8.9) g/dL Albumin 3.3 L (3.5-5.7) g/dL Globulin 6.0 H (2.4-3.5) g/dL Albumin/Globulin Ratio 0.6 L (1.1-2.2) Attestation Statement - Attestation Attestation: I examined this patient and my medical decision-making was reviewed with the Resident Physician. I agree with the documented findings, disposition and treatment plan as described except to the extent set forth below. Olwt-cp-[id number] time provided Patient arrives complaining of dizziness. She feels lightheaded. She had a similar presentation previously due to hyperkalemia. EKG reviewed by me upon arrival. Patient appears in acute distress
[2017-12-16 14:56] LABS: Basophils % 0.3 %; Eosinophils # 0.4 K/mcL (0.0-0.6); Eosinophils % 5.1 %; Hematocrit 35.2 % (35.3-44.9); Immature Granulocytes % 0.3 % (0-4); Lymphocytes # 2.6 K/mcL (0.6-4.6); Lymphocytes % 29.8 %; Mean Corpuscular HGB Conc 33.2 g/dL (31.6-35.5); Mean Corpuscular Hemoglobin 28.9 pg (28.0-33.3); Mean Corpuscular Volume 86.9 fL (83.0-100.0); Mean Platelet Volume 9.4 fL (9.4-12.4); Monocytes # 0.5 K/mcL (0.0-1.3); Monocytes % 5.9 %; Platelet Count 352 K/mcL (140-400); Red Blood Count 4.05 M/mcL (3.82-4.97); Red Cell Distribution Width 14.3 % (11.5-14.5); Segmented Neutrophils % 58.6 %
[2017-12-16 14:57] LABS: Hemoglobin 11.7 g/dL (11.5-15.4)
[2017-12-16 15:12] LABS: Albumin 3.3 g/dL (3.5-5.7); Albumin/Globulin Ratio 0.6 (1.1-2.2); Bilirubin,Total 0.2 mg/dL (0.3-1.0); Calcium 9.2 mg/dL (8.6-10.3); Magnesium 1.7 mg/dL (1.6-2.6); Potassium 5.4 mEq/L (3.5-5.1); Total Protein 9.3 g/dL (6.4-8.9)
--- NOTE | 2017-12-16 15:16 | Emergency Department Note ---
Disposition Clinical Impression: Hyponatremia, Hyperkalemia Isatu-ia-qimvehj kidney injury Qualifiers: Acute renal failure type: unspecified Chronic kidney disease stage: unspecified stage Qualified Code(s): N17.9 - Acute kidney failure, unspecified; N18.9 - Chronic kidney disease, unspecified Fatigue Qualifiers: Fatigue type: unspecified Qualified Code(s): R53.83 - Other fatigue Disposition: Admitted As Inpatient Condition: Fair Referrals: Macario Diallo MD [Primary Care Provider] - Forms: ED Satisfaction Letter General Adult HPI - General Chief complaint: ED Weakness Stated complaint: light headed, potassium high Time Seen by Provider: 12/16/17 14:26 Source: patient Limitations: no limitations Nursing Notes Reviewed: Yes Vital Signs Reviewed: Yes - History of Present Illness HPI Narrative: 72-year-old female who reports that she has had some nausea and generalized weakness and lightheadedness since waking this morning. She states she gets this way when her potassium gets high. She is scheduled to get a dialysis fistula placed. She denies having any fever. No abdominal pain or swelling. She states that she came in today because her physician told her if she ever feels lightheaded that she is coming to the emergency department. Radiation: non-radiation Pain Scale: 0 Improves with: nothing Worsens with: nothing Associated symptoms: Reports: denies other symptoms Treatments Prior to Arrival: none - Related Data Home Medications Medication Instructions Recorded Confirmed Metoprolol [Lopressor] 12.5 mg PO BID 03/01/16 12/02/17 Aspirin Enteric Coated [Aspirin EC] 81 mg PO DAILY 08/04/17 12/02/17 Oxygen 2 l NS AD 08/04/17 12/02/17 Gabapentin [Neurontin] 100 mg PO BID 09/17/17 12/02/17 Ferrous Sulfate 325 mg PO BID 10/28/17 12/02/17 Ondansetron HCl [Zofran] 4 mg PO TID PRN 10/28/17 12/02/17 Pravastatin Sodium [Pravachol] 10 mg PO HS 10/28/17 12/02/17 Cholecalciferol (Vitamin D3) 1,000 unit PO DAILY 11/16/17 12/02/17 [Vitamin D3] Insulin Glargine,Hum.rec.anlog 40 unit SQ HS 11/16/17 12/02/17 [Janelle Casas U-100] Previous Rx's Medication Instructions Recorded Ciprofloxacin HCl [Cipro] 500 mg PO DAILY 1 Days #1 tablet 12/10/17 Allergies Allergy/AdvReac Type Severity Reaction Status Date / Time acetaminophen [From Tylenol] Allergy See Verified 11/16/17 08:20 Comments Influenza Virus Vaccines Allergy See Verified 10/27/17 21:42 Comments All systems ED: reviewed and negative except as stated. Constitutional: Denies: fever Eyes: Denies: eye discharge ENT ED: Denies: ear pain Cardiovascular: Denies: chest pain Respiratory: Denies: cough Gastrointestinal: Reports: nausea. Denies: abdominal pain, vomiting Musculoskeletal: Denies: back pain Integumentary: Denies: rash Endocrine: Reports: fatigue Past Medical History - Past Medical History Medical history: Reports: non-contributory, diabetes, hyperlipidemia, hypertension, renal disease, other Surgical history: Reports: appendectomy, cholecystectomy, hysterectomy Psychiatric history: Reports: no psych history MEDICAL RECORDS 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: Reports: no MEDICAL RECORDS 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 - Social History Smoking Status: Never smoker Smokeless Tobacco Status: No Alcohol use: Reports: none Drug use: Reports: none Physical Exam - General Limitations: no limitations General appearance: alert, anxious - Head Head exam: atraumatic - Eye Eye exam: Present: normal appearance, PERRL - ENT ENT exam: normal exam, normal oropharynx - Neck Neck exam: Present: normal inspection - Chest Chest inspection: Present: normal inspection - Respiratory Respiratory exam: Present: normal lung sounds bilaterally. Absent: respiratory distress - Cardiovascular Cardiovascular exam: Present: regular rate, normal rhythm - Abdominal Exam Abdominal exam: Present: soft, Non-Tender. Absent: distention - Extremities Exam Extremities exam: Present: normal inspection - Neurological Exam Neurological exam: Present: alert, oriented X3 - Psychiatric Psychiatric exam: Present: normal affect, normal mood - Skin Skin exam: Present: warm, dry Course Course Narrative: Hyponatremia and hyperkalemia is present. Mild hyperkalemia. No acute EKG changes. Creatinine is worsening. She is having difficulty at home due to her fatigue. Will give NS bolus due to hyponatremia. Spoke with Dr Jacob who agreed to be a internal control consultant on this case. Spoke with the hospitalist who agreed to admit. Vital Signs Temperature 97.7 F 12/16/17 14:14 Pulse Rate 90 12/16/17 14:14 Respiratory Rate 16 12/16/17 14:14 Blood Pressure 144/83 12/16/17 14:14 O2 Sat by Pulse Oximetry 99 12/16/17 14:14 Temperature 97.7 F 12/16/17 14:14 Pulse Rate 67 12/16/17 15:56 Respiratory Rate 18 12/16/17 15:56 Blood Pressure 140/77 12/16/17 15:56 O2 Sat by Pulse Oximetry 100 12/16/17 15:56 Oxygen Delivery Oxygen Delivery Room Air Medical Decision Making - Medical Records Medical records reviewed: Yes I reviewed the patient's medical records. - Lab Data Lab results reviewed: Yes I reviewed the patient's lab results. Result diagrams: 12/16/17 14:30 12/16/17 14:30 Lab Results 12/16/17 12/16/17 Range/Units 14:30 14:30 WBC 8.6 D (4.3-11.1) K/mcL RBC 4.05 (3.82-4.97) M/mcL Hgb 11.7 D (11.5-15.4) g/dL Hct 35.2 L (35.3-44.9) % MCV 86.9 (83.0-100.0) fL MCH 28.9 (28.0-33.3) pg MCHC 33.2 (31.6-35.5) g/dL RDW 14.3 (11.5-14.5) % Plt Count 352 (140-400) K/mcL MPV 9.4 (9.4-12.4) fL Immature Gran % 0.3 (0-4) % Seg Neutrophils % 58.6 % Lymphocytes % 29.8 % Monocytes % 5.9 % Eosinophils % 5.1 % Basophils % 0.3 % Neutrophils # 5.0 (1.6-8.9) K/mcL Lymphocytes # 2.6 (0.6-4.6) K/mcL Monocytes # 0.5 (0.0-1.3) K/mcL Eosinophils # 0.4 (0.0-0.6) K/mcL Basophils # 0.0 (0.0-0.2) K/mcL Sodium 128 L (136-145) mEq/L Potassium 5.4 H (3.5-5.1) mEq/L Chloride 98 (98-107) mEq/L Carbon Dioxide 21 L (23-29) mEq/L BUN 81 H (8-23) mg/dL Creatinine 3.22 H (0.60-1.20) mg/dL Est GFR ( Amer) 17 L (> 60) Est GFR (Non-Af Amer) 14 L (> 60) BUN/Creatinine Ratio 25 (6-26) Glucose 226 H (70-105) mg/dL Calculated Osmolality 297 (280-300) Calcium 9.2 (8.6-10.3) mg/dL Magnesium 1.7 (1.6-2.6) mg/dL Total Bilirubin 0.2 L (0.3-1.0) mg/dL AST 11 L (13-39) Units/L ALT 15 (7-52) Units/L Alkaline Phosphatase 147 H (34-104) Units/L Serum Total Protein 9.3 H (6.4-8.9) g/dL Albumin 3.3 L (3.5-5.7) g/dL Globulin 6.0 H (2.4-3.5) g/dL Albumin/Globulin Ratio 0.6 L (1.1-2.2) - Radiology Data Radiology results reviewed: Yes I reviewed the patient's radiology results. - EKG Data EKG #1 EKG attestation: Yes I reviewed and interpreted this EKG. EKG shows normal: sinus rhythm Rate: normal Rhythm: NSR When compared to previous EKG there are: no significant changes Interpretation: unchanged when compared to prior tracing (date)
[2017-12-16] MEDS ORDERED: 0.9 % Sodium Chloride 500 ML IVC ONE (16:28)
[2017-12-16] MEDS ORDERED: Ondansetron ODT 4 MG TAB.RAPDIS PO PRN (17:32)
[2017-12-16] MEDS ORDERED: traMADol 50 MG TABLET PO PRN (17:33)
[2017-12-16] MEDS ORDERED: Naloxone 0.4 MG/ML INJ IVP PRN (17:33)
[2017-12-16] MEDS ORDERED: Acetaminophen 325 MG TABLET PO PRN (17:33)
--- NOTE | 2017-12-16 17:41 | Internal Med History&Physical ---
Date of Encounter: 12/16/17 Time of Encounter: 17:39 Internal Medicine - H&P: HPI Admitted From: Home Plans for Post Hospital Care: Home History of present illness: Ms. Lacy is a 72 year old female who reports that she has had some nausea and generalized weakness and lightheadedness since waking this morning. She states she gets this way when her potassium gets high. She is scheduled to get a dialysis fistula placed. She denies having any fever. No abdominal pain or swelling. She states that she came in today because her physician told her if she ever feels lightheaded that she is coming to the emergency department. At the ED, her vital signs were stable. Labs revealed sodium 128, potassium 5.4 , creatinine 3.22. Nephrology was consulted and patient will be admitted for further management. Past Med Surg Social Fam HX - Past Medical History Medical history: non-contributory, diabetes, hyperlipidemia, hypertension, renal disease, other Psychiatric history: no psych history - Past Surgical History Surgical History: appendectomy, cholecystectomy, hysterectomy - Social History Smoking Status: Never smoker Smokeless Tobacco Status: No Alcohol use: none Drug use: none - Family History Mother Living Status: Hx Family Cardiac Disorders: Yes Father Living Status: Hx Family Cardiac Disorders: Yes Internal Medicine - H&P: Meds Metoprolol [Lopressor] 12.5 mg PO BID 03/01/16 [History] Aspirin Enteric Coated [Aspirin EC] 81 mg PO DAILY 08/04/17 [History] Oxygen 2 l NS AD 08/04/17 [History] Gabapentin [Neurontin] 100 mg PO BID 09/17/17 [History] Ferrous Sulfate 325 mg PO BID 10/28/17 [History] Ondansetron HCl [Zofran] 4 mg PO TID PRN 10/28/17 [History] Pravastatin Sodium [Pravachol] 10 mg PO HS 10/28/17 [History] Cholecalciferol (Vitamin D3) [Vitamin D3] 1,000 unit PO DAILY 11/16/17 [History] Insulin Glargine,Hum.rec.anlog [Basaglar Kwikpen U-100] 40 unit SQ HS 11/16/17 [ History] Ciprofloxacin HCl [Cipro] 500 mg PO DAILY 1 Days #1 tablet 12/10/17 [Rx] 3 Allergy/AdvReac Type Severity Reaction Status Date / Time acetaminophen [From Tylenol] Allergy See Verified 11/16/17 08:20 Comments Influenza Virus Vaccines Allergy See Verified 10/27/17 21:42 Comments All Systems PM: A 10-system review of systems was performed and is negative for pertinent findings except as documented above in the HPI. Review of systems: REVIEW OF SYSTEMS: CONSTITUTIONAL: see HPI. HEENT: Eyes: No visual loss, blurred vision, double vision or yellow sclerae. Ears, Nose, Throat: No hearing loss, sneezing, congestion, runny nose or sore throat. SKIN: No rash or itching. CARDIOVASCULAR: No chest pain, chest pressure or chest discomfort. No palpitations or edema. RESPIRATORY: No shortness of breath, cough or sputum. GASTROINTESTINAL: No anorexia, nausea, vomiting or diarrhea. No abdominal pain or blood. GENITOURINARY: No dysuria, urgency, or frequency. NEUROLOGICAL: No headache, dizziness, syncope, paralysis, ataxia, numbness or tingling in the extremities. No change in bowel or bladder control. MUSCULOSKELETAL: No muscle, back pain, joint pain or stiffness. HEMATOLOGIC: No anemia, bleeding or bruising. LYMPHATICS: No enlarged nodes. No history of splenectomy. PSYCHIATRIC: No history of depression or anxiety. ENDOCRINOLOGIC: No reports of sweating, cold or heat intolerance. No polyuria or polydipsia. - Constitutional Vitals: Temp Pulse Resp BP Pulse Ox 97.7 F 67 18 140/77 100 12/16/17 14:14 12/16/17 15:56 12/16/17 15:56 12/16/17 15:56 12/16/17 15:56 General appearance: Present: A&O X 3 Exam: PHYSICAL EXAMINATION: GENERAL APPEARANCE: The patient is alert, oriented and in no acute distress. HEENT: Head is normocephalic. The sinuses are nontender. Pupils are equal and reactive. The nares are patent. Oropharynx clear without lesions. NECK: Supple without lymphadenopathy. HEART: Regular rate and rhythm. LUNGS: No crackles or wheezes are heard. ABDOMEN: Soft, nontender, nondistended with good bowel sounds heard. Inguinal area is normal. EXTREMITIES: Without cyanosis, clubbing or edema. NEUROLOGICAL: Gross nonfocal. SKIN: Warm and dry without any rash. Internal Med - H&P Results - Labs CBC & Chem 7: 12/16/17 14:30 12/16/17 14:30 Labs: Short CBC 12/16/17 Range/Units 14:30 WBC 8.6 D (4.3-11.1) K/mcL Hgb 11.7 D (11.5-15.4) g/dL Hct 35.2 L (35.3-44.9) % Plt Count 352 (140-400) K/mcL Neutrophils # 5.0 (1.6-8.9) K/mcL BMP 12/16/17 14:30 Sodium 128 L Potassium 5.4 H Chloride 98 Carbon Dioxide 21 L BUN 81 H Creatinine 3.22 H Glucose 226 H Calcium 9.2 Liver Function 12/16/17 Range/Units 14:30 Total Bilirubin 0.2 L (0.3-1.0) mg/dL AST 11 L (13-39) Units/L ALT 15 (7-52) Units/L Alkaline Phosphatase 147 H (34-104) Units/L Albumin 3.3 L (3.5-5.7) g/dL - Assessment and plan (1) Hcxig-ra-tuntrkb kidney injury Current Visit: Yes Status: Acute Assessment and plan: 72-year-old female with chronic renal failure presented with hyperkalemia, hyponatremia, elevated creatinine, and weakness. - Patient recently has been seen by nephrology, hemodialysis access was scheduled. Due to electrolytes abnormalities, likely patient will need hemodialysis in the near future. Fusion Operator was consulted. - We will gently hydrate the patient with NS, repeat BMP in a.m. - Give 1 dose of Kayexalate due to hyperkalemia Qualifiers: Acute renal failure type: unspecified Chronic kidney disease stage: stage 3 (moderate) Qualified Code(s): N17.9 - Acute kidney failure, unspecified; N18.3 - Chronic kidney disease, stage 3 (moderate) (2) Generalized weakness Current Visit: Yes Status: Acute Assessment and plan: - Likely caused by electrolytes abnormalities including low sodium and high potassium. (3) Hyponatremia Current Visit: Yes Status: Acute Assessment and plan: - Continue IV fluid, repeat BMP in a.m. (4) Hyperkalemia Current Visit: Yes Status: Acute Assessment and plan: - Q1 dose of Kayexalate, repeat BMP in a.m. (5) Diabetes mellitus Current Visit: No Status: Chronic Assessment and plan: - Continue home insulin regimen, adding insulin sliding scale. Qualifiers: Diabetes mellitus type: type 2 Diabetes mellitus mcc insulin use: with mcc use Diabetes mellitus complication status: with kidney complications Diabetes mellitus complication detail: with chronic kidney disease Chronic kidney disease stage: stage 3 (moderate) Qualified Code(s): E11.22 - Type 2 diabetes mellitus with diabetic chronic kidney disease; N18.3 - Chronic kidney disease, stage 3 (moderate); Z79.4 - jail (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 (6) HTN (hypertension) Current Visit: No Status: Chronic Assessment and plan: - BP controlled, continue home medication. Qualifiers: Hypertension type: essential hypertension Qualified Code(s): I10 - Essential (primary) hypertension (7) HLD (hyperlipidemia) Current Visit: No Status: Chronic Assessment and plan: - Continue home medication. Qualifiers: Hyperlipidemia type: unspecified Qualified Code(s): E78.5 - Hyperlipidemia , unspecified - Time Spent With Patient Total time spent is greater than 50% in coordination of care (as documented) at patient's floor/unit and/or counseling patient: Greater than 35 minutes
[2017-12-16] MEDS ORDERED: *HR* Dextrose 50 % in Water (Syg) 50 ML SYRINGE IVP PRN (17:46)
[2017-12-16] MEDS ORDERED: Dextrose Gel 15 GM/37.5 ML TUBE PO PRN ×2 (17:46)
[2017-12-16] MEDS ORDERED: D5% in Water 1,000 ML IVC PRN (17:46)
[2017-12-16] MEDS: 0.9 % Sodium Chloride 1,000 ML IVC SCH (19:09)
[2017-12-16] MEDS: *HR* Heparin 5,000 UNIT/ML VIAL SQ SCH (19:10)
[2017-12-16] MEDS ORDERED: Insulin LISPRO 300 UNITS/3 ML VIAL SQ SCH (21:00)
[2017-12-16] MEDS ORDERED: Insulin DETEMIR 100 UNIT/ML X5UNITS SQ SCH (21:00)
[2017-12-16] MEDS: Gabapentin 100 MG CAPSULE PO SCH (21:26)
[2017-12-17] MEDS: *HR* Heparin 5,000 UNIT/ML VIAL SQ SCH (06:06)
[2017-12-17 06:41] LABS: Basophils % 0.4 %; Eosinophils # 0.3 K/mcL (0.0-0.6); Eosinophils % 4.9 %; Hematocrit 31.3 % (35.3-44.9); Hemoglobin 10.4 g/dL (11.5-15.4); Immature Granulocytes % 0.3 % (0-4); Lymphocytes # 2.3 K/mcL (0.6-4.6); Lymphocytes % 33.1 %; Mean Corpuscular HGB Conc 33.2 g/dL (31.6-35.5); Mean Corpuscular Volume 87.2 fL (83.0-100.0); Mean Platelet Volume 9.4 fL (9.4-12.4); Monocytes # 0.7 K/mcL (0.0-1.3); Monocytes % 9.4 %; Neutrophils # 3.6 K/mcL (1.6-8.9); Platelet Count 295 K/mcL (140-400); Red Blood Count 3.59 M/mcL (3.82-4.97); Red Cell Distribution Width 14.2 % (11.5-14.5); Segmented Neutrophils % 51.9 %
[2017-12-17 06:59] LABS: Albumin 2.8 g/dL (3.5-5.7); Albumin/Globulin Ratio 0.6 (1.1-2.2); Bilirubin,Total 0.2 mg/dL (0.3-1.0); Calcium 8.4 mg/dL (8.6-10.3); Potassium 4.8 mEq/L (3.5-5.1); Total Protein 7.8 g/dL (6.4-8.9)
[2017-12-17] MEDS: Insulin LISPRO 300 UNITS/3 ML VIAL SQ SCH ×2 (07:44→11:48)
[2017-12-17] MEDS: Gabapentin 100 MG CAPSULE PO SCH (07:45)
[2017-12-17] MEDS ORDERED: Cholecalciferol (D-3) 1,000 UNIT TABLET PO SCH (09:00)
[2017-12-17] MEDS ORDERED: Aspirin Enteric Coated 81 MG Tablet PO SCH (09:00)
--- NOTE | 2017-12-17 10:46 | Nephrology Consult Note ---
Date of Encounter: 12/17/17 Time of Encounter: 10:44 Assessment and Plan (1) Hyperkalemia Current Visit: Yes Status: Resolved K+ now 4.8 WNL (2) CKD (chronic kidney disease) stage 5, GFR less than 15 ml/min Current Visit: Yes Status: Acute CKD stage 5 stable Baseline GFR 14-16 Current GFR 15 Is scheduled for dialysis fistula to be placed (3) Generalized weakness Current Visit: Yes Status: Acute per primary team Patient talking and laughing on phone. (4) Chronic kidney disease, stage IV (severe) Current Visit: No Status: Chronic History of Present Illness - Reason for Consult Consult date: 12/17/17 - Chief Complaint hyperkalemia - History of Present Illness Ms. Lacy is a 72 year old female with a PMH of diabetes, hypertension, and CKD stage 4-5 who reports that she has had some nausea and generalized weakness and lightheadedness since waking this morning. She states she gets this way when her potassium gets high. She is scheduled to get a dialysis fistula placed. Labs revealed sodium 128, potassium 5.4, creatinine 3.22. Nephrology was consulted and patient will be admitted for further management. Past Med Surg Social Fam HX - Past Medical History Medical history: non-contributory, diabetes, hyperlipidemia, hypertension, renal disease, other Psychiatric history: no psych history - Past Surgical History Surgical History: appendectomy, cholecystectomy, hysterectomy - Social History Smoking Status: Never smoker Smokeless Tobacco Status: No Alcohol use: none Drug use: none - Family History Mother Living Status: Hx Family Cardiac Disorders: Yes Father Living Status: Hx Family Cardiac Disorders: Yes Medications and Allergies Metoprolol [Lopressor] 12.5 mg PO BID 03/01/16 [History] Aspirin Enteric Coated [Aspirin EC] 81 mg PO DAILY 08/04/17 [History] Oxygen 2 l NS AD 08/04/17 [History] Gabapentin [Neurontin] 100 mg PO BID 09/17/17 [History] Ferrous Sulfate 325 mg PO BID 10/28/17 [History] Ondansetron HCl [Zofran] 4 mg PO TID PRN 10/28/17 [History] Pravastatin Sodium [Pravachol] 10 mg PO HS 10/28/17 [History] Cholecalciferol (Vitamin D3) [Vitamin D3] 1,000 unit PO DAILY 11/16/17 [History] Insulin Glargine,Hum.rec.anlog [Annaglguilherme Casas U-100] 40 unit SQ HS 11/16/17 [ History] Ciprofloxacin HCl [Cipro] 500 mg PO DAILY 1 Days #1 tablet 12/10/17 [Rx] 3 Allergy/AdvReac Type Severity Reaction Status Date / Time acetaminophen [From Tylenol] Allergy See Verified 11/16/17 08:20 Comments Influenza Virus Vaccines Allergy See Verified 10/27/17 21:42 Comments Review of Systems All Systems: reviewed and no additional remarkable complaints except as stated Constitutional: malaise, weakness Cardiovascular: lightheadedness, no chest pain, no dyspnea, no leg edema Respiratory: no dyspnea Gastrointestinal: no diarrhea, no nausea, no vomiting Neurological: weakness, no behavioral changes Exam - Vital Signs Vital signs: Initial Vital Signs Temp Pulse Resp BP Pulse Ox 97.7 F 90 16 144/83 99 12/16/17 14:14 12/16/17 14:14 12/16/17 14:14 12/16/17 14:14 12/16/17 14:14 Vital Signs - Last 8 Hours Temp Pulse Resp BP Pulse Ox 12/17/17 07:52 99 12/17/17 07:26 97.9 F 75 16 141/83 99 12/17/17 03:32 97.8 F 80 16 103/57 99 Intake and Output 12/16/17 12/17/17 12/17/17 23:59 07:59 15:59 Intake Total 60 / 60 240 / 240 Output Total 2450 / 2450 400 / 400 Balance -2390 / -2390 -160 / -160 Intake: Oral 60 / 60 240 / 240 Other 0 / 0 Output: Urine 1999 / 1999 Catheter 450 / 450 400 / 400 Other: Meal Breakfast Percent of Meal Consumed 30% Weight 53.4 kg 53.07 kg Blood Glucose* 339 208 Patient Weight 12/17/17 23:59 Weight 53.07 kg - General Appearance General appearance: frail EENT: ATNC, mucous membranes moist, hearing intact, vision intact Neck: supple Respiratory: clear Cardiology: no edema, normal S1, normal S2 Gastrointestinal: no tenderness, no guarding Integumentary: warm and dry Neurologic: alert and oriented x3 Psychiatric: mood/affect appropriate, cooperative Results - Lab Results 12/17/17 06:05 12/17/17 06:05 Most recent lab results Calcium 8.4 mg/dL (8.6-10.3) L 12/17/17 06:05 Magnesium 1.7 mg/dL (1.6-2.6) 12/16/17 14:30 Consult Discharge Plan - Plan Referrals: Macario Diallo MD [Primary Care Provider] -
[2017-12-17] MEDS: 0.9 % Sodium Chloride 1,000 ML IVC SCH (10:50)
--- NOTE | 2017-12-17 11:12 | Discharge Summary ---
- NOTES TO OUTPATIENT PROVIDER Notes to Outpatient Provider: f/u with PCP in one week Date of Encounter: 12/17/17 Time of Encounter: 11:11 - Discharge Diagnosis (1) Rjoof-tb-cbxyfll kidney injury Priority: Secondary Status: Acute Qualifiers: Acute renal failure type: unspecified Chronic kidney disease stage: stage 3 (moderate) Qualified Code(s): N17.9 - Acute kidney failure, unspecified; N18.3 - Chronic kidney disease, stage 3 (moderate) (2) Hyponatremia Priority: Primary Status: Acute (3) Hyperkalemia Priority: Primary Status: Resolved (4) Diabetes mellitus Priority: Secondary Status: Chronic Qualifiers: Diabetes mellitus type: type 2 Diabetes mellitus group home insulin use: with group home use Diabetes mellitus complication status: with kidney complications Diabetes mellitus complication detail: with chronic kidney disease Chronic kidney disease stage: stage 3 (moderate) Qualified Code(s): E11.22 - Type 2 diabetes mellitus with diabetic chronic kidney disease; N18.3 - Chronic kidney disease, stage 3 (moderate); Z79.4 - [facility] (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 (5) Generalized weakness Priority: Secondary Status: Acute (6) HTN (hypertension) Priority: Secondary Status: Chronic Qualifiers: Hypertension type: essential hypertension Qualified Code(s): I10 - Essential (primary) hypertension (7) HLD (hyperlipidemia) Priority: Secondary Status: Chronic Qualifiers: Hyperlipidemia type: unspecified Qualified Code(s): E78.5 - Hyperlipidemia , unspecified Hospital course: Ms. Lacy is a 72 year old female who reports that she has had some nausea and generalized weakness and lightheadedness since waking this morning. She denies having any fever. No abdominal pain or swelling. At the ED, her vital signs were stable. Labs revealed sodium 128, potassium 5.4, creatinine 3.22. Nephrology was consulted and patient will be admitted for further management. Pt was admitted in the hospital and started her on IV hydration. Her Na improved to 132 and K also improved. She is feeling much better today. Denied any more N/V and tolerating pO intake well. Pt wanted to go home today. Will d/ c her home in stable condition with home health services. - Time Spent with Patient Total time spent providing and/or coordinating discharge services: - Discharge Medications Home Medications: Metoprolol [Lopressor] 12.5 mg PO BID 03/01/16 [History] Aspirin Enteric Coated [Aspirin EC] 81 mg PO DAILY 08/04/17 [History] Oxygen 2 l NS AD 08/04/17 [History] Gabapentin [Neurontin] 100 mg PO BID 09/17/17 [History] Ferrous Sulfate 325 mg PO BID 10/28/17 [History] Ondansetron HCl [Zofran] 4 mg PO TID PRN 10/28/17 [History] Pravastatin Sodium [Pravachol] 10 mg PO HS 10/28/17 [History] Cholecalciferol (Vitamin D3) [Vitamin D3] 1,000 unit PO DAILY 11/16/17 [History] Insulin Glargine,Hum.rec.anlog [Basaglar Kwikpen U-100] 40 unit SQ HS 11/16/17 [ History] Allergies/Adverse Reactions: 3 Allergy/AdvReac Type Severity Reaction Status Date / Time acetaminophen [From Tylenol] Allergy See Verified 11/16/17 08:20 Comments Influenza Virus Vaccines Allergy See Verified 10/27/17 21:42 Comments Date of admission: 12/16/17 18:11 Primary care physician: Macario Diallo MD - Constitutional Vitals: Temp Pulse Resp BP Pulse Ox 97.9 F 75 16 141/83 99 12/17/17 07:26 12/17/17 07:26 12/17/17 07:26 12/17/17 07:26 12/17/17 07:52 General appearance: Present: A&O X 3 - Head Head exam: Present: atraumatic, normal inspection - Neck Neck exam general surgery: Present: supple - Respiratory Respiratory exam: Present: decreased breath sounds. Absent: rales, respiratory distress, rhonchi, wheezes - Cardiovascular Cardiovascular exam: Present: RRR, +S1, +S2. Absent: tachycardia - GI/Abdominal GI/Abdominal exam: Present: normal bowel sounds, soft. Absent: rebound, rigid, tenderness - Extremities Exam Extremities exam: Absent: calf tenderness, pedal edema, tenderness - Back Exam Back exam: Absent: CVA tenderness (L), CVA tenderness (R) - Neurological Exam Neurological exam: Present: alert, oriented X3 - Psychiatric Psychiatric exam: Present: normal affect, normal mood - Patient Status Disposition: Home Health Service Condition: Good Overall status at discharge: patient is back to baseline - Discharge Instructions Instructions: Potassium Content of Foods List (GEN) Follow Up With: Ricky Jacob MD [Partnered Physician] - (physician will see patient at D[facility] Center) Macario Diallo MD [Primary Care Provider] - 12/22/17 2:15 pm (Please follow up as schedule...) - Diet and Activity Activity: increase activity as tolerated Diet: low salt diet
--- NOTE | 2017-12-17 11:13 | Physician Discharge Referral ---
Home Health/Hosp Referral Info Transfer to: Home Health Provider in Charge Post Discharge: PCP - Diagnosis (1) Osngm-ya-zfpnxwh kidney injury Status: Acute (2) Hyponatremia Status: Acute (3) Hyperkalemia Status: Resolved (4) Diabetes mellitus Status: Chronic (5) Generalized weakness Status: Acute (6) HTN (hypertension) Status: Chronic (7) HLD (hyperlipidemia) Status: Chronic - Respiratory Orders Smoking Cessation: Smoking cessation has been advised. For more information, call the [place] Tobacco Quit Line at 3-537-DHBY-NOW. - Services Needed Following services are medically necessary services: Nursing, Physical Therapy, Occupational Therapy - Transfer Medications Home Medications: Metoprolol [Lopressor] 12.5 mg PO BID 03/01/16 [History] Aspirin Enteric Coated [Aspirin EC] 81 mg PO DAILY 08/04/17 [History] Oxygen 2 l NS AD 08/04/17 [History] Gabapentin [Neurontin] 100 mg PO BID 09/17/17 [History] Ferrous Sulfate 325 mg PO BID 10/28/17 [History] Ondansetron HCl [Zofran] 4 mg PO TID PRN 10/28/17 [History] Pravastatin Sodium [Pravachol] 10 mg PO HS 10/28/17 [History] Cholecalciferol (Vitamin D3) [Vitamin D3] 1,000 unit PO DAILY 11/16/17 [History] Insulin Glargine,Hum.rec.anlog [Basaglar Kwikpen U-100] 40 unit SQ HS 11/16/17 [ History] Allergies/Adverse Reactions: 3 Allergy/AdvReac Type Severity Reaction Status Date / Time acetaminophen [From Tylenol] Allergy See Verified 11/16/17 08:20 Comments Influenza Virus Vaccines Allergy See Verified 10/27/17 21:42 Comments Certification: Further, I certify that my clinical findings support that this patient is homebound (i.e. absences from home require considerable and taxing effort and are for medical reasons or [facility] or infrequently or short duration when for other reasons) because: Homebound Reason: Patient requires assistance of a person or device to safely leave home Attestation: My signature below is to certify that this patient is under my care and that I, or nurse practitioner, or a physician's certified surgical tech/first assistant working with me, has a face-to -face encounter with this patient.
[2017-12-17 11:25] VITALS: BP 130/68
--- NOTE | 2017-12-18 22:46 | Electrocardiograph Report ---
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
== END 2017-12-17 14:02 | disposition home health service (06) ==
LOC: 2ANU 14:08 → EMEROO 14:08 → 2ANU 18:50
PROVIDERS: ADMIT Student in an Organized Health Care Education/Training Program; ATTEND Student in an Organized Health Care Education/Training Program

== ENCOUNTER 2017-12-22 15:34 | Inpatient (IN) ==
[2017-12-22] MEDS ORDERED: 0.9 % Sodium Chloride 1,000 ML IVC ONE (16:16)
[2017-12-22] MEDS ORDERED: Ondansetron 4 MG/2 ML VIAL IVP ONE (16:16)
[2017-12-22 17:04] LABS: Bilirubin,Urine Negative (Negative); Blood,Urine Large (Negative); Clarity,Urine Turbid (Clear); Color,Urine Yellow (Yellow); Glucose,Urine (UA) Normal (Normal); Ketones,Urine Negative (Negative); Leukocyte Esterase,Urine Large (Negative); Nitrite,Urine Negative (Negative); PH,Urine 6.5 pH Units (5.0-8.0); Protein,Urine >=300 mg/dL (Neg-Trace); Specific Gravity,Urine 1.016 (1.010-1.025); Urobilinogen,Urine Normal (Normal)
[2017-12-22 17:08] LABS: WBC,Urine TNTC per hpf (0-3)
[2017-12-22 17:14] LABS: Basophils % 0.2 %; Eosinophils # 0.1 K/mcL (0.0-0.6); Eosinophils % 0.7 %; Hematocrit 36.5 % (35.3-44.9); Immature Granulocytes % 0.4 % (0-4); Lymphocytes # 1.7 K/mcL (0.6-4.6); Lymphocytes % 18.3 %; Mean Corpuscular HGB Conc 32.9 g/dL (31.6-35.5); Mean Corpuscular Hemoglobin 27.9 pg (28.0-33.3); Mean Corpuscular Volume 84.9 fL (83.0-100.0); Mean Platelet Volume 9.3 fL (9.4-12.4); Monocytes # 0.8 K/mcL (0.0-1.3); Monocytes % 8.7 %; Neutrophils # 6.5 K/mcL (1.6-8.9); Platelet Count 383 K/mcL (140-400); Red Cell Distribution Width 14.4 % (11.5-14.5); Segmented Neutrophils % 71.7 %
[2017-12-22 17:20] LABS: Albumin 3.4 g/dL (3.5-5.7); Albumin/Globulin Ratio 0.6 (1.1-2.2); Bilirubin,Direct 0.1 mg/dL (0.0-0.2); Bilirubin,Indirect 0.1 mg/dL (0.0-1.2); Bilirubin,Total 0.2 mg/dL (0.3-1.0); Calcium 9.3 mg/dL (8.6-10.3); Globulin 5.5 g/dL (2.4-3.5); Potassium 4.6 mEq/L (3.5-5.1); Total Protein 8.9 g/dL (6.4-8.9)
[2017-12-22 17:23] LABS: RBC,Urine Present per hpf (0-3); Squamous Epithelial Cell,Urine Present per lpf (None-Few)
[2017-12-22 17:24] LABS: Bacteria,Urine Present per hpf (None-Few); Hyaline Casts,Urine None Seen per lpf (None-Few)
--- NOTE | 2017-12-22 18:09 | Emergency Department Note ---
Disposition Clinical Impression: UTI (urinary tract infection) Qualifiers: Urinary tract infection type: site unspecified Hematuria presence: without hematuria Qualified Code(s): N39.0 - Urinary tract infection, site not specified PNA (pneumonia) Qualifiers: Pneumonia type: due to unspecified organism Laterality: right Lung location: upper lobe of lung Qualified Code(s): J18.1 - Lobar pneumonia, unspecified organism Acute renal failure Qualifiers: Acute renal failure type: unspecified Qualified Code(s): N17.9 - Acute kidney failure, unspecified Disposition: Admitted As Inpatient Condition: Fair Referrals: Macario Diallo MD [Primary Care Provider] - Forms: ED Satisfaction Letter General Adult HPI - General Chief complaint: ED Nausea/Vomiting/Diarrhea Stated complaint: "hypotension" Time Seen by Provider: 12/22/17 15:54 Source: patient Limitations: altered mental status Nursing Notes Reviewed: Yes Vital Signs Reviewed: Yes - History of Present Illness Pain Scale: 9 - Related Data Home Medications Medication Instructions Recorded Confirmed Metoprolol [Lopressor] 12.5 mg PO BID 03/01/16 12/16/17 Aspirin Enteric Coated [Aspirin EC] 81 mg PO DAILY 08/04/17 12/16/17 Oxygen 2 l NS AD 08/04/17 12/16/17 Gabapentin [Neurontin] 100 mg PO BID 09/17/17 12/16/17 Ferrous Sulfate 325 mg PO BID 10/28/17 12/16/17 Ondansetron HCl [Zofran] 4 mg PO TID PRN 10/28/17 12/16/17 Pravastatin Sodium [Pravachol] 10 mg PO HS 10/28/17 12/16/17 Cholecalciferol (Vitamin D3) 1,000 unit PO DAILY 11/16/17 12/16/17 [Vitamin D3] Insulin Glargine,Hum.rec.anlog 40 unit SQ HS 11/16/17 12/16/17 [Basaglar Kwikpen U-100] Allergies Allergy/AdvReac Type Severity Reaction Status Date / Time acetaminophen [From Tylenol] Allergy See Verified 11/16/17 08:20 Comments Influenza Virus Vaccines Allergy See Verified 10/27/17 21:42 Comments Past Medical History - Past Medical History Medical history: Reports: non-contributory, diabetes, hyperlipidemia, hypertension, renal disease, other Surgical history: Reports: appendectomy, cholecystectomy, hysterectomy Psychiatric history: Reports: no psych history BUSINESS EDUCATION PROFESSOR history: Reports: no BUSINESS EDUCATION PROFESSOR history - Social History Smoking Status: Never smoker Smokeless Tobacco Status: No Alcohol use: Reports: none Drug use: Reports: none Physical Exam - General General appearance: alert, in no apparent distress Course Vital Signs Temperature 95.8 F L 12/22/17 15:41 Pulse Rate 92 12/22/17 15:41 Respiratory Rate 16 12/22/17 15:41 Blood Pressure 109/69 12/22/17 15:41 O2 Sat by Pulse Oximetry 95 12/22/17 15:41 Temperature 97.9 F 12/22/17 17:08 Pulse Rate 78 12/22/17 17:08 Respiratory Rate 16 12/22/17 17:08 Blood Pressure 116/89 12/22/17 17:08 O2 Sat by Pulse Oximetry 98 12/22/17 17:08 Oxygen Delivery Oxygen Delivery Room Air Medical Decision Making - Lab Data Result diagrams: 12/22/17 16:43 12/22/17 16:43 Lab Results 12/22/17 12/22/17 12/22/17 Range/Units 16:35 16:43 16:43 WBC 9.0 (4.3-11.1) K/mcL RBC 4.30 (3.82-4.97) M/mcL Hgb 12.0 D (11.5-15.4) g/dL Hct 36.5 (35.3-44.9) % MCV 84.9 (83.0-100.0) fL MCH 27.9 L (28.0-33.3) pg MCHC 32.9 (31.6-35.5) g/dL RDW 14.4 (11.5-14.5) % Plt Count 383 (140-400) K/mcL MPV 9.3 L (9.4-12.4) fL Immature Gran % 0.4 (0-4) % Seg Neutrophils % 71.7 % Lymphocytes % 18.3 % Monocytes % 8.7 % Eosinophils % 0.7 % Basophils % 0.2 % Neutrophils # 6.5 (1.6-8.9) K/mcL Lymphocytes # 1.7 (0.6-4.6) K/mcL Monocytes # 0.8 (0.0-1.3) K/mcL Eosinophils # 0.1 (0.0-0.6) K/mcL Basophils # 0.0 (0.0-0.2) K/mcL Sodium 129 L (136-145) mEq/L Potassium 4.6 (3.5-5.1) mEq/L Chloride 99 (98-107) mEq/L Carbon Dioxide 18 L (23-29) mEq/L BUN 102 H (8-23) mg/dL Creatinine 4.93 H (0.60-1.20) mg/dL Est GFR ( Amer) 10 L (> 60) Est GFR (Non-Af Amer) 9 L (> 60) BUN/Creatinine Ratio 21 (6-26) Glucose 294 H (70-105) mg/dL Calculated Osmolality 311 H (280-300) Calcium 9.3 (8.6-10.3) mg/dL Total Bilirubin 0.2 L (0.3-1.0) mg/dL Direct Bilirubin 0.1 (0.0-0.2) mg/dL Indirect Bilirubin 0.1 (0.0-1.2) mg/dL AST 6 L (13-39) Units/L ALT 7 (7-52) Units/L Alkaline Phosphatase 130 H (34-104) Units/L Serum Total Protein 8.9 (6.4-8.9) g/dL Albumin 3.4 L (3.5-5.7) g/dL Globulin 5.5 H (2.4-3.5) g/dL Albumin/Globulin Ratio 0.6 L (1.1-2.2) Urine Color Yellow (Yellow) Urine Clarity Turbid A (Clear) Urine pH 6.5 (5.0-8.0) pH Units Ur Specific [place] 1.016 (1.010-1.025) Urine Protein >=300 H (Neg-Trace) mg/dL Urine Glucose (UA) Normal (Normal) mg/dL Urine Ketones Negative (Negative) mg/dL Urine Blood Large H (Negative) Urine Nitrite Negative (Negative) Urine Bilirubin Negative (Negative) Urine Urobilinogen Normal (Normal) mg/dL Ur Leukocyte Esterase Large H (Negative) Urine Microscopic RBC Present (0-3) per hpf Urine Microscopic WBC TNTC H (0-3) per hpf Ur Squamous Epith Cells Present (None-Few) per lpf Urine Bacteria Present (None-Few) per hpf Hyaline Casts None Seen (None-Few) per lpf Ur Culture Indicated? YES A (NO) Attestation Statement - Attestation Attestation: I, Andrew King, examined this patient and my medical decision-making was reviewed with the MARKET DIRECTOR/PA/Advanced Practice Nurse/Resident Physician. I agree with the documented findings, disposition and treatment plan as described except to the extent set forth below. 72-year-old female presents emergency Department with concerns of weakness, fatigue, nausea, vomiting and hypotension. Patient states her home health care nurse evaluated her and sent her to the emergency department for further care and evaluation secondary to low blood pressure however patient does not know without blood pressure was. Patient was recently seen in the emergency department for similar findings and she was admitted to the hospital. Laboratory evaluation the patient had a significantly elevated creatinine. Her urinalysis showed a urinary tract infection. Chest x-ray showed possible infiltrate.Patient will be started on antibiotics in the emergency department. Patient comfortable with the plan for admission to hospital for further care and evaluation.
--- NOTE | 2017-12-22 18:22 | Emergency Department Note ---
Disposition Clinical Impression: UTI (urinary tract infection) Qualifiers: Urinary tract infection type: site unspecified Hematuria presence: without hematuria Qualified Code(s): N39.0 - Urinary tract infection, site not specified PNA (pneumonia) Qualifiers: Pneumonia type: due to unspecified organism Laterality: right Lung location: upper lobe of lung Qualified Code(s): J18.1 - Lobar pneumonia, unspecified organism Acute renal failure Qualifiers: Acute renal failure type: unspecified Qualified Code(s): N17.9 - Acute kidney failure, unspecified Disposition: Admitted As Inpatient Condition: Fair Referrals: Macario Diallo MD [Primary Care Provider] - Forms: ED Satisfaction Letter General Adult HPI - General Chief complaint: ED Nausea/Vomiting/Diarrhea Stated complaint: "hypotension" Time Seen by Provider: 12/22/17 15:54 Source: patient Limitations: altered mental status Nursing Notes Reviewed: Yes Vital Signs Reviewed: Yes - History of Present Illness HPI Narrative: Patient presents today for evaluation of generalized weakness. Patient was seen by primary care office and referred for evaluation. The patient states that she has been vomiting all day and has been weak. Patient states that she does not have any chest pain or shortness of breath. She states that she does have abdominal discomfort is been going on for the last several days. Patient describes lower abdominal tenderness that is worse on the left. She states that she does have a history of kidney problems and sometimes her potassium is low. They have discussed with her the potential for dialysis in the past but has not been on any dialysis. The patient lives at home with 2 family members. Patient's urine in her chronic Madden which is due to be changed later this week is milky in consistency. Pain Scale: 9 - Related Data Home Medications Medication Instructions Recorded Confirmed Metoprolol [Lopressor] 12.5 mg PO BID 03/01/16 12/22/17 Aspirin Enteric Coated [Aspirin EC] 81 mg PO DAILY 08/04/17 12/22/17 Oxygen 2 l NS AD 08/04/17 12/22/17 Gabapentin [Neurontin] 100 mg PO BID 09/17/17 12/22/17 Ferrous Sulfate 325 mg PO BID 10/28/17 12/22/17 Ondansetron HCl [Zofran] 4 mg PO TID PRN 10/28/17 12/22/17 Pravastatin Sodium [Pravachol] 10 mg PO HS 10/28/17 12/22/17 Cholecalciferol (Vitamin D3) 1,000 unit PO DAILY 11/16/17 12/22/17 [Vitamin D3] Insulin Glargine,Hum.rec.anlog 40 unit SQ HS 11/16/17 12/22/17 [Basaglar Kwikpen U-100] Insulin ASPART [NovoLOG] 20 unit SQ TIDWM 12/22/17 12/22/17 Sodium Chloride 1 gm PO BID 12/22/17 12/22/17 Allergies Allergy/AdvReac Type Severity Reaction Status Date / Time acetaminophen [From Tylenol] Allergy See Verified 12/22/17 19:03 Comments Influenza Virus Vaccines Allergy See Verified 12/22/17 19:03 Comments Review of Systems: CONSTITUTIONAL: Weakness and fatigue. Denies fever chills HEENT: Eyes: No visual changes. Ears, Nose, Throat: No hearing loss, difficulty talking or unable to swallow. SKIN: No rash or itching. CARDIOVASCULAR: No chest pain, chest pressure or chest discomfort. No palpitations or edema. RESPIRATORY: No shortness of breath, cough or sputum. GASTROINTESTINAL: Abdominal tenderness with nausea and vomiting but no diarrhea or constipation GENITOURINARY: No burning on urination or hematuria. NEUROLOGICAL: No headache, dizziness, syncope, paralysis, ataxia, numbness or tingling in the extremities. No change in bowel or bladder control. MUSCULOSKELETAL: No muscle pain, back pain, joint pain or stiffness. Past Medical History - Past Medical History Medical history: Reports: non-contributory, diabetes, hyperlipidemia, hypertension, renal disease, other Surgical history: Reports: appendectomy, cholecystectomy, hysterectomy Psychiatric history: Reports: no psych history VENEER LATHE OPERATOR history: Reports: no VENEER LATHE OPERATOR history - Social History Smoking Status: Never smoker Smokeless Tobacco Status: No Alcohol use: Reports: none Drug use: Reports: none Physical Exam General: Well appearing, nontoxic, no acute distress Head: Normocephalic Atraumatic Eyes: PERRL, EOMI ENT: Airway patent, no stridor Neck: supple, no meningismus Chest: Lungs clear to auscultation bilateral Cardiac: Regular rate and rhythm, no murmurs, rubs or gallops Abdomen: soft, mild tenderness to suprapubic region as well as the left lower quadrant, nondistended; no guarding, rebound, or tenderness to percussion Chronic Madden is in place that shows urine the consistency of milk. Musculoskeletal: Chronic deformities as she is nonmobile Skin: No rash, normal skin tone Neuro: Alert and Oriented to person, place, and time; No focal deficit, - General Limitations: altered mental status General appearance: alert, in no apparent distress Course - Reevaluation(s) Reevaluation #1: Patient with significant UTI. Patient has acute kidney injury likely secondary to dehydration as she is clinically dry. The patient's chest x-ray is concerning for pneumonia. She did have a recent hospital stay. HCAP Coverage has been given. - Consultations Consultation #1: Discussed with hospitalist. No need for HCAP Coverage if patient is not having respiratory symptoms. Cefepime and Levaquin were given. Further antibiotic choices can be decided by the admitting hospital team. Vital Signs Temperature 95.8 F L 12/22/17 15:41 Pulse Rate 92 12/22/17 15:41 Respiratory Rate 16 12/22/17 15:41 Blood Pressure 109/69 12/22/17 15:41 O2 Sat by Pulse Oximetry 95 12/22/17 15:41 Temperature 97.9 F 12/22/17 17:08 Pulse Rate 72 12/22/17 19:14 Respiratory Rate 18 12/22/17 19:14 Blood Pressure 112/91 12/22/17 19:14 O2 Sat by Pulse Oximetry 98 12/22/17 19:14 Oxygen Delivery Oxygen Delivery Room Air Medical Decision Making - Medical Records Medical records reviewed: Yes I reviewed the patient's medical records. - Lab Data Lab results reviewed: Yes I reviewed the patient's lab results. Result diagrams: 12/22/17 16:43 12/22/17 16:43 Lab Results 12/22/17 12/22/17 12/22/17 Range/Units 16:35 16:43 16:43 WBC 9.0 (4.3-11.1) K/mcL RBC 4.30 (3.82-4.97) M/mcL Hgb 12.0 D (11.5-15.4) g/dL Hct 36.5 (35.3-44.9) % MCV 84.9 (83.0-100.0) fL MCH 27.9 L (28.0-33.3) pg MCHC 32.9 (31.6-35.5) g/dL RDW 14.4 (11.5-14.5) % Plt Count 383 (140-400) K/mcL MPV 9.3 L (9.4-12.4) fL Immature Gran % 0.4 (0-4) % Seg Neutrophils % 71.7 % Lymphocytes % 18.3 % Monocytes % 8.7 % Eosinophils % 0.7 % Basophils % 0.2 % Neutrophils # 6.5 (1.6-8.9) K/mcL Lymphocytes # 1.7 (0.6-4.6) K/mcL Monocytes # 0.8 (0.0-1.3) K/mcL Eosinophils # 0.1 (0.0-0.6) K/mcL Basophils # 0.0 (0.0-0.2) K/mcL Sodium 129 L (136-145) mEq/L Potassium 4.6 (3.5-5.1) mEq/L Chloride 99 (98-107) mEq/L Carbon Dioxide 18 L (23-29) mEq/L BUN 102 H (8-23) mg/dL Creatinine 4.93 H (0.60-1.20) mg/dL Est GFR ( Amer) 10 L (> 60) Est GFR (Non-Af Amer) 9 L (> 60) BUN/Creatinine Ratio 21 (6-26) Glucose 294 H (70-105) mg/dL Calculated Osmolality 311 H (280-300) Calcium 9.3 (8.6-10.3) mg/dL Total Bilirubin 0.2 L (0.3-1.0) mg/dL Direct Bilirubin 0.1 (0.0-0.2) mg/dL Indirect Bilirubin 0.1 (0.0-1.2) mg/dL AST 6 L (13-39) Units/L ALT 7 (7-52) Units/L Alkaline Phosphatase 130 H (34-104) Units/L Serum Total Protein 8.9 (6.4-8.9) g/dL Albumin 3.4 L (3.5-5.7) g/dL Globulin 5.5 H (2.4-3.5) g/dL Albumin/Globulin Ratio 0.6 L (1.1-2.2) Urine Color Yellow (Yellow) Urine Clarity Turbid A (Clear) Urine pH 6.5 (5.0-8.0) pH Units Ur Specific [place] 1.016 (1.010-1.025) Urine Protein >=300 H (Neg-Trace) mg/dL Urine Glucose (UA) Normal (Normal) mg/dL Urine Ketones Negative (Negative) mg/dL Urine Blood Large H (Negative) Urine Nitrite Negative (Negative) Urine Bilirubin Negative (Negative) Urine Urobilinogen Normal (Normal) mg/dL Ur Leukocyte Esterase Large H (Negative) Urine Microscopic RBC Present (0-3) per hpf Urine Microscopic WBC TNTC H (0-3) per hpf Ur Squamous Epith Cells Present (None-Few) per lpf Urine Bacteria Present (None-Few) per hpf Hyaline Casts None Seen (None-Few) per lpf Ur Culture Indicated? YES A (NO) - Radiology Data Radiology results reviewed: Yes I reviewed the patient's radiology results. - EKG Data EKG #1 EKG attestation: Yes I reviewed and interpreted this EKG. EKG results narrative: EKG shows sinus rhythm with frequent PVCs. Rate of 84. IN interval 194. QRS 104. QTC 432. No significant ST elevations or depressions. Patient has nonspecific T-wave inversions throughout the lateral leads which are present on previous of 12/16/17.
[2017-12-22] MEDS ORDERED: cefTRIAXone 2,000 MG in 0.9 % Sodium Chloride Mini Bag 100 ML IVPB ONE (18:24)
[2017-12-22] MEDS ORDERED: Cefepime HCl 2,000 MG in 0.9 % Sodium Chloride Mini Bag 100 ML IVPB STA (18:37)
[2017-12-22] MEDS ORDERED: Levofloxacin 750 MG/150 ML 750 MG/150 ML BAG IVPB ONE (18:37)
[2017-12-22] MEDS ORDERED: Cefepime HCl 2,000 MG in Water for inj. (sterile) 20 ML 20 ML IVP STA (18:41)
[2017-12-22] MEDS ORDERED: Gabapentin 100 MG CAPSULE PO ONE (19:29)
[2017-12-22] MEDS ORDERED: Naloxone 0.4 MG/ML INJ IVP PRN (21:33)
[2017-12-22] MEDS ORDERED: *HR* Dextrose 50 % in Water (Syg) 50 ML SYRINGE IVP PRN (21:37)
[2017-12-22] MEDS ORDERED: Dextrose Gel 15 GM/37.5 ML TUBE PO PRN ×2 (21:37)
[2017-12-22] MEDS ORDERED: D5% in Water 1,000 ML IVC PRN (21:37)
[2017-12-22] MEDS ORDERED: NON-FORMULARY MEDICATION 1 EACH EACH (Oxygen [Oxygen] 2 L) NS SCH (21:45)
--- NOTE | 2017-12-22 21:45 | Internal Med History&Physical ---
Date of Encounter: 12/22/17 Time of Encounter: 20:00 Internal Medicine - H&P: HPI Chief complaint: Nausea and vomiting Admitted From: Home Plans for Post Hospital Care: Home History of present illness: Ms. Lacy is a 72 year old female present to ER for nausea and vomiting for 1 day. Past medical history is significant for diabetes, CKD plan for hemodialysis, chronic Madden catheter use for last 3 months. Patient has chronic kidney disease on chronic Madden catheter in last 3 months. Patient developed nausea and vomiting since 1:00 this morning. The vomiting were clear fluid, no blood in it. Patient has mild abdominal pain. Patient denies a fever, cough, shortness of breath, or chest pain. In the emergency room, abdominal CT has been done, report shows stable chronic founding, no significant acute change. UA shows UTI. Patient was given antibiotics and admitted for further management. Past Med Surg Social Fam HX - Past Medical History Medical history: diabetes, hyperlipidemia, hypertension, renal disease, other Psychiatric history: anxiety - Past Surgical History Surgical History: appendectomy, cholecystectomy, hysterectomy - Social History Smoking Status: Never smoker Smokeless Tobacco Status: No Alcohol use: none Drug use: none - Family History Mother Living Status: Hx Family Cardiac Disorders: Yes Father Living Status: Hx Family Cardiac Disorders: Yes Internal Medicine - H&P: Meds Metoprolol [Lopressor] 12.5 mg PO BID 03/01/16 [History] Aspirin Enteric Coated [Aspirin EC] 81 mg PO DAILY 08/04/17 [History] Oxygen 2 l NS AD 08/04/17 [History] Gabapentin [Neurontin] 100 mg PO BID 09/17/17 [History] Ferrous Sulfate 325 mg PO BID 10/28/17 [History] Ondansetron HCl [Zofran] 4 mg PO TID PRN 10/28/17 [History] Pravastatin Sodium [Pravachol] 10 mg PO HS 10/28/17 [History] Cholecalciferol (Vitamin D3) [Vitamin D3] 1,000 unit PO DAILY 11/16/17 [History] Insulin Glargine,Hum.rec.anlog [Basaglar Kwikpen U-100] 40 unit SQ HS 11/16/17 [ History] Insulin ASPART [NovoLOG] 20 unit SQ TIDWM 12/22/17 [History] Sodium Chloride 1 gm PO BID 12/22/17 [History] 3 Allergy/AdvReac Type Severity Reaction Status Date / Time acetaminophen [From Tylenol] Allergy See Verified 12/22/17 19:03 Comments Influenza Virus Vaccines Allergy See Verified 12/22/17 19:03 Comments All Systems PM: A 10-system review of systems was performed and is negative for pertinent findings except as documented above in the HPI. - Constitutional Vitals: Temp Pulse Resp BP Pulse Ox 97.9 F 72 16 110/82 98 12/22/17 17:08 12/22/17 19:14 12/22/17 20:20 12/22/17 20:20 12/22/17 19:14 General appearance: Present: A&O X 3, no acute distress, answers questions appropriately - Head Head exam: Present: atraumatic, normocephalic - Eye Eye exam: Present: PERRL, conjuntiva pink, sclera anicteric Pupils: Present: PERRL - Neck Neck exam general surgery: Present: supple, trachea midline. Absent: lymphadenopathy - Respiratory Respiratory exam: Present: CTAB. Absent: accessory muscle use, rales, rhonchi, wheezes - Cardiovascular Cardiovascular exam: Present: RRR, +S1, +S2. Absent: diastolic murmur, gallop, rubs, systolic murmur - GI/Abdominal GI/Abdominal exam: Present: normal bowel sounds, soft, tenderness (Mild tenderness in 4Q, without rebound or guarding), no peritoneal signs. Absent: distended - Extremities Exam Extremities exam: Present: warm, radial pulses palpable and symmetrical. Absent : calf tenderness, cyanotic, pedal edema - Neurological Exam Neurological exam: Present: CN II-XII intact, oriented X3, no focal deficits. Absent: pronater drift, facial droop, speech deficit - Skin Skin exam: Present: dry, intact Internal Med - H&P Results - Labs CBC & Chem 7: 12/22/17 16:43 12/22/17 16:43 - Assessment and plan (1) Acute kidney injury superimposed on chronic kidney disease Current Visit: No Status: Acute Assessment and plan: Patient has a history of chronic obstructive renal disease. She was placed on chronic Madden catheter and plan for hemodialysis if kidney function does not improve. Patient has mild elevated creatinine from baseline. - We will give patient low rate IV fluid as patient has nausea vomiting and diarrhea recently, possibly dehydration. - Avoid the nephrotoxic medications - Closely monitor renal function - Consider nephrology consult if renal function not improve (2) CKD (chronic kidney disease) stage 5, GFR less than 15 ml/min Current Visit: No Status: Acute Assessment and plan: Management as above (3) DVT prophylaxis Current Visit: No Status: Acute Assessment and plan: Heparin subcutaneously (4) Nausea vomiting and diarrhea Current Visit: No Status: Acute Assessment and plan: Patient has nausea, vomiting, and diarrhea. CT abdomen shows no acute change. Consider acute gastroenteritis. - Place patient on clear liquid diet. - IV fluid - Symptomatic treatment for nausea and vomiting - Patient has history of C. difficile colitis, will check stool GI panel (5) Diabetes mellitus Current Visit: No Status: Chronic Assessment and plan: Continue basal and sliding-scale insulin coverage Qualifiers: Diabetes mellitus type: type 2 Diabetes mellitus rat exterminator insulin use: with rat exterminator use Diabetes mellitus complication status: with kidney complications Diabetes mellitus complication detail: with chronic kidney disease Chronic kidney disease stage: stage 3 (moderate) Qualified Code(s): E11.22 - Type 2 diabetes mellitus with diabetic chronic kidney disease; N18.3 - Chronic kidney disease, stage 3 (moderate); Z79.4 - FPC (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 (6) HTN (hypertension) Current Visit: No Status: Chronic Assessment and plan: Continue home medications Qualifiers: Hypertension type: essential hypertension Qualified Code(s): I10 - Essential (primary) hypertension (7) Catheter-associated urinary tract infection Current Visit: No Status: Ruled-out Assessment and plan: Patient has history of UTI. UA shows positive for UTI. Patient is a chronic Madden catheter user. - Previous urine culture result reviewed, shows Citrobacter Frenndii, sensitive to cefepime - Place patient on renal dose cefepime, follow-up urine culture Qualifiers: Indwelling urinary catheter type: indwelling urethral catheter Encounter type: subsequent encounter Qualified Code(s): T83.511D - Infection and inflammatory reaction due to indwelling urethral catheter, subsequent encounter ; N39.0 - Urinary tract infection, site not specified; N39.0 - Urinary tract infection, site not specified (8) Hyponatremia Current Visit: No Status: Acute Assessment and plan: Chronic. Patient is on by mouth sodium chloride pills, will continue - Time Spent With Patient Total time spent is greater than 50% in coordination of care (as documented) at patient's floor/unit and/or counseling patient: 35 minutes Greater than 35 minutes
[2017-12-22] MEDS: 0.9 % Sodium Chloride 1,000 ML IVC SCH (22:14)
[2017-12-22] MEDS: Insulin DETEMIR 100 UNIT/ML X5UNITS SQ SCH (22:16)
[2017-12-23 05:26] LABS: Eosinophils % 2.6 %; Hematocrit 30.9 % (35.3-44.9); Immature Granulocytes % 0.5 % (0-4); Lymphocytes % 23.5 %; Mean Corpuscular HGB Conc 33.7 g/dL (31.6-35.5); Mean Corpuscular Hemoglobin 28.7 pg (28.0-33.3); Mean Corpuscular Volume 85.4 fL (83.0-100.0); Mean Platelet Volume 9.3 fL (9.4-12.4); Monocytes % 11.4 %; Platelet Count 366 K/mcL (140-400); Red Blood Count 3.62 M/mcL (3.82-4.97); Red Cell Distribution Width 14.3 % (11.5-14.5); Segmented Neutrophils % 61.7 %
[2017-12-23 05:27] LABS: Basophils % 0.3 %; Eosinophils # 0.2 K/mcL (0.0-0.6); Lymphocytes # 1.8 K/mcL (0.6-4.6); Monocytes # 0.9 K/mcL (0.0-1.3); Neutrophils # 4.8 K/mcL (1.6-8.9)
[2017-12-23 05:39] LABS: Hemoglobin 10.4 g/dL (11.5-15.4)
[2017-12-23] MEDS: *HR* Heparin 5,000 UNIT/ML VIAL SQ SCH ×2 (05:42→17:20)
[2017-12-23 05:47] LABS: Albumin 2.8 g/dL (3.5-5.7); Albumin/Globulin Ratio 0.5 (1.1-2.2); Bilirubin,Total 0.2 mg/dL (0.3-1.0); Calcium 8.8 mg/dL (8.6-10.3); Globulin 5.4 g/dL (2.4-3.5); Magnesium 1.6 mg/dL (1.6-2.6); Potassium 4.5 mEq/L (3.5-5.1); Total Protein 8.2 g/dL (6.4-8.9)
[2017-12-23] MEDS ORDERED: Cefepime HCl 2,000 MG in Water for inj. (sterile) 20 ML 20 ML IVP SCH (06:00)
[2017-12-23] MEDS: Insulin LISPRO 300 UNITS/3 ML VIAL SQ SCH ×4 (08:52→21:29)
[2017-12-23] MEDS: Gabapentin 100 MG CAPSULE PO SCH ×2 (08:55→21:28)
[2017-12-23] MEDS: Cholecalciferol (D-3) 1,000 UNIT TABLET PO SCH (08:55)
[2017-12-23] MEDS: Aspirin Enteric Coated 81 MG Tablet PO SCH (08:55)
[2017-12-23] MEDS: Lactobacillus 1 EACH CAP.SPRINK PO SCH (08:55)
[2017-12-23] MEDS: 0.9 % Sodium Chloride 1,000 ML IVC SCH (08:56)
--- NOTE | 2017-12-23 13:17 | Internal Med Progress Note ---
Date of Encounter: 12/23/17 Time of Encounter: 13:13 - Assessment and plan (1) Nausea vomiting and diarrhea Current Visit: No Status: Acute Assessment and plan: - ADAT - IV fluid - Symptomatic treatment for nausea and vomiting - Patient has history of C. difficile colitis, will check stool GI panel - Likely UTI involved with symptoms but will switch from Cefepime to Zosyn in case this is infectious abdominal process as well, given reported complaints of diarrhea. She tells me today earlier in my discussion that she presented with diarrhea. Later on she denies having diarrhea at all. The CT scan showed stable bilateral hydroureteronephrosis. It does note Wall thickening of rectum/anus similar to prior exam as well. Could be proctitis according to radiology read. She is having worsening renal failure. (2) Diabetes mellitus Current Visit: No Status: Chronic Assessment and plan: Continue basal and sliding-scale insulin coverage Goal glucose <180 to promote infection healing. Qualifiers: Diabetes mellitus type: type 2 Diabetes mellitus shelter insulin use: with exterminator use Diabetes mellitus complication status: with kidney complications Diabetes mellitus complication detail: with chronic kidney disease Chronic kidney disease stage: stage 3 (moderate) Qualified Code(s): E11.22 - Type 2 diabetes mellitus with diabetic chronic kidney disease; N18.3 - Chronic kidney disease, stage 3 (moderate); Z79.4 - medical terminologist (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 (3) Hyponatremia Current Visit: No Status: Acute Assessment and plan: Chronic. Patient is on by mouth sodium chloride pills, will continue Currently improving. (4) HTN (hypertension) Current Visit: No Status: Chronic Assessment and plan: Continue home medications, currently normal blood pressure Qualifiers: Hypertension type: essential hypertension Qualified Code(s): I10 - Essential (primary) hypertension (5) DVT prophylaxis Current Visit: No Status: Acute Assessment and plan: Heparin subcutaneously (6) Catheter-associated urinary tract infection Current Visit: No Status: Ruled-out Assessment and plan: Frequent history of UTI. UA shows positive for UTI. Patient is a chronic Madden catheter user. Review of prior cultures: - Previous urine culture result reviewed, shows Citrobacter Frenndii, DC cefepime for now and start Zosyn in case GI infection is also involved. Qualifiers: Indwelling urinary catheter type: indwelling urethral catheter Encounter type: subsequent encounter Qualified Code(s): T83.511D - Infection and inflammatory reaction due to indwelling urethral catheter, subsequent encounter ; N39.0 - Urinary tract infection, site not specified; N39.0 - Urinary tract infection, site not specified (7) Acute kidney injury superimposed on chronic kidney disease Current Visit: No Status: Acute Assessment and plan: Patient has a history of chronic obstructive renal disease. She was placed on chronic Madden catheter and plan for hemodialysis if kidney function does not improve. Patient has mild elevated creatinine from baseline. - We will give patient low rate IV fluid as patient has nausea vomiting and diarrhea recently, possibly dehydration. - Avoid the nephrotoxic medications Consult Nephrology, known to group. (8) CKD (chronic kidney disease) stage 5, GFR less than 15 ml/min Current Visit: No Status: Acute Assessment and plan: Management as above - Time Spent With Patient Total time spent is greater than 50% in coordination of care (as documented) at patient's floor/unit and/or counseling patient: - Subjective Interval history: Patient states she would like glucose levels up. also feels like food has no taste. She states she no longer has nausea. Denies fevers/chills, vomiting, abdominal pain, diarrhea/constipation. - Constitutional Vitals: Temp Pulse Resp BP Pulse Ox 97.4 F L 75 17 144/55 98 12/23/17 11:03 12/23/17 11:03 12/23/17 11:03 12/23/17 11:03 12/23/17 11:03 General appearance: Present: A&O X 3, no acute distress, answers questions appropriately Exam: - Head Head exam: Present: atraumatic, normocephalic - Eye Eye exam: Present: PERRL, conjuntiva pink, sclera anicteric Pupils: Present: PERRL - Neck Neck exam general surgery: Present: supple, trachea midline. Absent: lymphadenopathy - Respiratory Respiratory exam: Present: CTAB. Absent: accessory muscle use, rales, rhonchi, wheezes - Cardiovascular Cardiovascular exam: Present: RRR, +S1, +S2. Absent: diastolic murmur, gallop, rubs, systolic murmur - GI/Abdominal GI/Abdominal exam: Present: normal bowel sounds, soft, tenderness (Mild tenderness in 4Q, without rebound or guarding), no peritoneal signs. Absent: distended - Extremities Exam Extremities exam: Present: warm, radial pulses palpable and symmetrical. Absent : calf tenderness, cyanotic, pedal edema - Neurological Exam Neurological exam: Present: CN II-XII intact, oriented X3, no focal deficits. Absent: pronater drift, facial droop, speech deficit - Skin Skin exam: Present: dry, intact Internal Medicine: Result - Labs CBC & Chem 7: 12/23/17 04:48 12/23/17 04:48 Labs: Short CBC 12/23/17 Range/Units 04:48 WBC 7.8 (4.3-11.1) K/mcL Hgb 10.4 L D (11.5-15.4) g/dL Hct 30.9 L (35.3-44.9) % Plt Count 366 (140-400) K/mcL Neutrophils # 4.8 (1.6-8.9) K/mcL BMP 12/23/17 04:48 Sodium 133 L Potassium 4.5 Chloride 106 Carbon Dioxide 16 L BUN 97 H Creatinine 4.61 H Glucose 78 Calcium 8.8 Liver Function 12/23/17 Range/Units 04:48 Total Bilirubin 0.2 L (0.3-1.0) mg/dL AST 5 L (13-39) Units/L ALT 6 L (7-52) Units/L Alkaline Phosphatase 99 (34-104) Units/L Albumin 2.8 L (3.5-5.7) g/dL Consult Discharge Plan - Plan Referrals: Macario Diallo MD [Primary Care Provider] -
[2017-12-23] MEDS: Piperacillin/Tazobactam 3.375 GM in 0.9 % Sodium Chloride Mini Bag 100 ML IVPB SCH (17:20)
[2017-12-23] MEDS ORDERED: Cefepime HCl 1,000 MG in Water for inj. (sterile) 20 ML 10 ML IVP SCH (19:00)
--- NOTE | 2017-12-23 20:27 | Electrocardiograph Report ---
[address] [place], [place] [address] Test Date: 2017-12-22 Pat Name: Lisa Lacy Department: 103 Room: 3A36 Gender: F Dial Brusher: ALEXANDRA : 1945 Requested By: Clarisa Lo Order Number: [id number] Reading MD: Vinay Zambrano Measurements Intervals [place] Rate: 84 P: 31 OK: 194 QRS: 12 QRSD: 104 T: 143 QT: 391 QTc: 432 Interpretive Statements SINUS RHYTHM WITH FREQUENT VENTRICULAR PREMATURE COMPLEXES LATERAL ISCHEMIA Electronically Signed On 12-23-2017 20:26:33 EDT by Vinay Zambrano
[2017-12-23] MEDS: Insulin DETEMIR 100 UNIT/ML X5UNITS SQ SCH (21:29)
[2017-12-23] MEDS: Ondansetron 4 MG/2 ML VIAL IVP PRN (22:42)
[2017-12-24] MEDS: Ondansetron 4 MG/2 ML VIAL IVP PRN (02:45)
[2017-12-24] MEDS: *HR* Heparin 5,000 UNIT/ML VIAL SQ SCH ×2 (06:33→18:31)
[2017-12-24] MEDS: Piperacillin/Tazobactam 3.375 GM in 0.9 % Sodium Chloride Mini Bag 100 ML IVPB SCH ×2 (06:34→18:50)
[2017-12-24] MEDS: Insulin LISPRO 300 UNITS/3 ML VIAL SQ SCH ×4 (08:57→21:44)
[2017-12-24 09:17] LABS: Basophils % 0.3 %; Eosinophils # 0.1 K/mcL (0.0-0.6); Eosinophils % 1.7 %; Hematocrit 36.4 % (35.3-44.9); Hemoglobin 11.9 g/dL (11.5-15.4); Immature Granulocytes % 0.6 % (0-4); Lymphocytes # 1.7 K/mcL (0.6-4.6); Lymphocytes % 23.2 %; Mean Corpuscular HGB Conc 32.7 g/dL (31.6-35.5); Mean Corpuscular Hemoglobin 28.1 pg (28.0-33.3); Mean Corpuscular Volume 85.8 fL (83.0-100.0); Mean Platelet Volume 9.3 fL (9.4-12.4); Monocytes # 0.6 K/mcL (0.0-1.3); Monocytes % 8.1 %; Neutrophils # 4.7 K/mcL (1.6-8.9); Platelet Count 407 K/mcL (140-400); Red Blood Count 4.24 M/mcL (3.82-4.97); Red Cell Distribution Width 14.6 % (11.5-14.5); Segmented Neutrophils % 66.1 %
[2017-12-24 09:21] LABS: INR 1.3; Prothrombin Time 13.8 Seconds (9.4-12.1)
--- NOTE | 2017-12-24 09:38 | Internal Med Progress Note ---
Date of Encounter: 12/24/17 Time of Encounter: 09:38 - Assessment and plan (1) Nausea vomiting and diarrhea Current Visit: No Status: Acute Assessment and plan: - ADAT; Currently clear liquid diet. Still complaints of nausea/vomiting. - Possibly gastroenteritis, UTI, or uremia - IV fluid - Symptomatic treatment for nausea and vomiting - GI panel pending. - Continue Zosyn to cover UTI and GI sources of bacterial infection - The CT scan showed stable bilateral hydroureteronephrosis. It does note Wall thickening of rectum/anus similar to prior exam as well. Could be proctitis according to radiology read, but this was seen in previous imaging. She is having worsening renal failure. (2) Bradycardia Current Visit: Yes Status: Acute Assessment and plan: Unsure if this is asymptomatic or symptomatic as patient does complain of epigastric discomfort and nausea, however she describes more reflux-like symptoms and she may have a gastroenteritis. I reviewed telemetry strip from 0900 and it was 28 bpm. A stat ECG done now showed a sinus rhythm with HR 78 bpm, no ST/T wave changes that I can appreciate. Otherwise does have many PVCs. I would like Cardiology to review this as well . Since she complaints of discomfort I will do a cardiac workup with troponin now and then in 6 hours, and an echocardiogram Will consult Cardiology, recommendations appreciated. (3) Diabetes mellitus Current Visit: No Status: Chronic Assessment and plan: Continue basal and sliding-scale insulin coverage Goal glucose <180 to promote infection healing. Qualifiers: Diabetes mellitus type: type 2 Diabetes mellitus extermination inspector insulin use: with usp use Diabetes mellitus complication status: with kidney complications Diabetes mellitus complication detail: with chronic kidney disease Chronic kidney disease stage: stage 3 (moderate) Qualified Code(s): E11.22 - Type 2 diabetes mellitus with diabetic chronic kidney disease; N18.3 - Chronic kidney disease, stage 3 (moderate); Z79.4 - dedicated intermodal truck driver (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 (4) Hyponatremia Current Visit: No Status: Acute Assessment and plan: Chronic. Patient is on by mouth sodium chloride pills, will continue Continues to improve Patient does refuse sodium tabs today, possibly non compliant at home. (5) HTN (hypertension) Current Visit: No Status: Chronic Assessment and plan: Continue home medications, currently normal blood pressure Will hold metoprolol because of bradycardia Qualifiers: Hypertension type: essential hypertension Qualified Code(s): I10 - Essential (primary) hypertension (6) Catheter-associated urinary tract infection Current Visit: No Status: Ruled-out Assessment and plan: Frequent history of UTI. UA shows positive for UTI. Patient is a chronic Madden catheter user. Review of prior cultures: - Previous urine culture result reviewed, shows Citrobacter Freednadii, DC cefepime for now and start Zosyn in case GI infection is also involved. Qualifiers: Indwelling urinary catheter type: indwelling urethral catheter Encounter type: subsequent encounter Qualified Code(s): T83.511D - Infection and inflammatory reaction due to indwelling urethral catheter, subsequent encounter ; N39.0 - Urinary tract infection, site not specified; N39.0 - Urinary tract infection, site not specified (7) Acute kidney injury superimposed on chronic kidney disease Current Visit: No Status: Acute Assessment and plan: Patient has a history of chronic obstructive renal disease. She was placed on chronic Madden catheter and plan for hemodialysis if kidney function does not improve. On admission cr 4.9 and now improved to 4.1. Continue careful IV fluid hydration - Avoid the nephrotoxic medications - Strict I/Os - Nephrology consulted, recommendations appreciated. (8) CKD (chronic kidney disease) stage 5, GFR less than 15 ml/min Current Visit: No Status: Acute Assessment and plan: Management as above (9) DVT prophylaxis Current Visit: No Status: Acute Assessment and plan: Heparin subcutaneously - Time Spent With Patient Total time spent is greater than 50% in coordination of care (as documented) at patient's floor/unit and/or counseling patient: - Subjective Interval history: This AM patient complains of epigastric discomfort and throat discomfort. States she feels a reflux type sensation. Tele department called notified that patient had bradycardic episode of 28 bpm at 9 am. Patient currently admits to nausea and epigastric discomfort. She denies acute chest pain, SOB, diaphoresis , palpitations, numbness/tingling. - Constitutional Vitals: Temp Pulse Resp BP Pulse Ox 96 F L 84 20 185/72 100 12/24/17 07:45 12/24/17 07:45 12/24/17 07:45 12/24/17 07:45 12/24/17 07:45 General appearance: Present: A&O X 3, no acute distress, answers questions appropriately - Head Head exam: Present: atraumatic, normocephalic - Eye Eye exam: Present: PERRL, conjuntiva pink, sclera anicteric Pupils: Present: PERRL - Neck Neck exam general surgery: Present: supple, trachea midline. Absent: lymphadenopathy - Respiratory Respiratory exam: Present: CTAB. Absent: accessory muscle use, rales, rhonchi, wheezes - Cardiovascular Cardiovascular exam: Present: bradycardia, +S1, +S2. Absent: diastolic murmur, gallop, rubs, systolic murmur - GI/Abdominal GI/Abdominal exam: Present: normal bowel sounds, soft, no peritoneal signs. Absent: distended, tenderness - Extremities Exam Extremities exam: Present: warm, radial pulses palpable and symmetrical. Absent : calf tenderness, cyanotic, pedal edema - Neurological Exam Neurological exam: Present: CN II-XII intact, oriented X3, no focal deficits. Absent: pronater drift, facial droop, speech deficit - Skin Skin exam: Present: dry, intact Internal Medicine: Result - Labs CBC & Chem 7: 12/24/17 09:09 12/24/17 09:09 - ABG Interpretation ABG results: PT/INR, D-dimer PT 13.8 Seconds (9.4-12.1) H 12/24/17 09:09 Consult Discharge Plan - Plan Referrals: Macario Diallo MD [Primary Care Provider] -
[2017-12-24 09:56] LABS: Calcium 9.1 mg/dL (8.6-10.3); Potassium 5.2 mEq/L (3.5-5.1)
[2017-12-24] MEDS: Aspirin Enteric Coated 81 MG Tablet PO SCH (10:01)
[2017-12-24] MEDS: Cholecalciferol (D-3) 1,000 UNIT TABLET PO SCH (10:01)
[2017-12-24] MEDS: Lactobacillus 1 EACH CAP.SPRINK PO SCH (10:01)
[2017-12-24] MEDS ORDERED: GI Cocktail 40 ML EACH PO ONE (10:02)
[2017-12-24] MEDS ORDERED: Aspirin 325 MG TABLET PO STA (10:03)
[2017-12-24 10:36] LABS: Magnesium 1.7 mg/dL (1.6-2.6); Phosphorous 4.3 mg/dL (2.7-4.5)
--- NOTE | 2017-12-24 10:36 | Nephrology Consult Note ---
Date of Encounter: 12/24/17 Time of Encounter: 10:32 Assessment and Plan (1) Acute kidney injury superimposed on chronic kidney disease Current Visit: No Status: Acute CKD 5. Scr 4.13, 4.61 yesterday. GFR 11 today was 9 yesterday. Baseline GFRf 14-16, has been referred for Fistula placement. Continue to avoid nephrotoxins and renal dose all medications. Renal Diet when advanced. (2) PNA (pneumonia) Current Visit: Yes Status: Acute Per primary team. Qualifiers: Pneumonia type: due to unspecified organism Laterality: right Lung location: upper lobe of lung Qualified Code(s): J18.1 - Lobar pneumonia, unspecified organism (3) UTI (urinary tract infection) Current Visit: Yes Status: Acute Has chronic naylor. Per primary team. Qualifiers: Urinary tract infection type: site unspecified Hematuria presence: without hematuria Qualified Code(s): N39.0 - Urinary tract infection, site not specified (4) Generalized weakness Current Visit: Yes Status: Acute Per primary team. Recommend PT/OT. History of Present Illness - Reason for Consult Consult date: 12/24/17 Chronic Kidney Disease, end stage renal disease - Chief Complaint weakness,vomiting - History of Present Illness Ms. Lacy is a 72 year old female with a PMH of diabetes, hypertension, and CKD stage 4-5 who reports that she has had some nausea and generalized weaknes. She lives at home with 2 grandsons. She is a patient of Dr. Padilla, she has been [place] [facility] [place], but has not been able to get to appointment because she has not felt well. Was in hospital most recently discharged 12/17/17 for the same type of symptoms. Denies chest pain, SOB, diarrhea. Admits to nausea with emesis. Denies hemataemesis, or melena. Past Med Surg Social Fam HX - Past Medical History Medical history: diabetes, hyperlipidemia, hypertension, renal disease, other Psychiatric history: anxiety - Past Surgical History Surgical History: appendectomy, cholecystectomy, hysterectomy - Social History Smoking Status: Never smoker Smokeless Tobacco Status: No Alcohol use: none Drug use: none - Family History Mother Living Status: Hx Family Cardiac Disorders: Yes Father Living Status: Hx Family Cardiac Disorders: Yes Medications and Allergies Metoprolol [Lopressor] 12.5 mg PO BID 03/01/16 [History] Aspirin Enteric Coated [Aspirin EC] 81 mg PO DAILY 08/04/17 [History] Oxygen 2 l NS AD 08/04/17 [History] Gabapentin [Neurontin] 100 mg PO BID 09/17/17 [History] Ferrous Sulfate 325 mg PO BID 10/28/17 [History] Ondansetron HCl [Zofran] 4 mg PO TID PRN 10/28/17 [History] Pravastatin Sodium [Pravachol] 10 mg PO HS 10/28/17 [History] Cholecalciferol (Vitamin D3) [Vitamin D3] 1,000 unit PO DAILY 11/16/17 [History] Insulin Glargine,Hum.rec.anlog [Basaglar Kwikpen U-100] 40 unit SQ HS 11/16/17 [ History] Insulin ASPART [NovoLOG] 20 unit SQ TIDWM 12/22/17 [History] Sodium Chloride 1 gm PO BID 12/22/17 [History] 3 Allergy/AdvReac Type Severity Reaction Status Date / Time acetaminophen [From Tylenol] Allergy See Verified 12/22/17 19:03 Comments Influenza Virus Vaccines Allergy See Verified 12/22/17 19:03 Comments Review of Systems ROS unobtainable: other (as per HPI.) Exam - Vital Signs Vital signs: Initial Vital Signs Temp Pulse Resp BP Pulse Ox 95.8 F L 92 16 109/69 95 12/22/17 15:41 12/22/17 15:41 12/22/17 15:41 12/22/17 15:41 12/22/17 15:41 Vital Signs - Last 8 Hours Temp Pulse Resp BP Pulse Ox 12/24/17 07:45 96 F L 84 20 185/72 100 12/24/17 04:51 97.6 F 85 16 157/75 98 Intake and Output 12/23/17 12/24/17 12/24/17 23:59 07:59 15:59 Intake Total 1360 / 1360 0 / 0 Output Total 1700 / 1700 Balance 1360 / 1360 -1700 / -1700 0 / 0 Intake: IV Fluids 1100 / 1100 0.9 % Sodium Chloride 1,000 ML 1000 / 1000 @ 80 mls/hr IVC .[id number] [facility] Rx #:[id number] Zosyn 3.375 GM In 0.9 % Sodium 100 / 100 Chloride (Mini-Bag +) 100 ML @ 25 mls/hr IVPB Q12HR [facility] Rx#: [id number] Oral 260 / 260 0 / 0 Output: Catheter 1700 / 1700 Other: Meal Dinner Breakfast Percent of Meal Consumed 0% 0% Weight 56 kg Blood Glucose* 151 145 Patient Weight 12/24/17 23:59 Weight 56 kg - General Appearance General appearance: chronically ill, fatigue, frail EENT: ATNC, hearing intact, vision intact Neck: supple Respiratory: clear Cardiology: no edema, normal S1, normal S2 Gastrointestinal: normoactive bowel sounds, no tenderness, no guarding Integumentary: no rash, warm and dry Neurologic: alert and oriented x3 Psychiatric: mood/affect appropriate, cooperative Results - Lab Results 12/24/17 09:09 12/24/17 09:09 Most recent lab results Calcium 9.1 mg/dL (8.6-10.3) 12/24/17 09:09 Magnesium 1.6 mg/dL (1.6-2.6) 12/23/17 04:48 Consult Discharge Plan - Plan Referrals: Macario Diallo MD [Primary Care Provider] -
[2017-12-24 10:37] LABS: Troponin I 0.03 ng/mL (< 0.04)
[2017-12-24] MEDS: 0.9 % Sodium Chloride 1,000 ML IVC SCH (12:45)
--- NOTE | 2017-12-24 15:52 | Electrocardiograph Report ---
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
[2017-12-24] MEDS ORDERED: traMADol 50 MG TABLET PO PRN (21:06)
[2017-12-24] MEDS: Insulin DETEMIR 100 UNIT/ML X5UNITS SQ SCH (21:44)
[2017-12-25] MEDS: 0.9 % Sodium Chloride 1,000 ML IVC SCH (05:41)
[2017-12-25] MEDS: Piperacillin/Tazobactam 3.375 GM in 0.9 % Sodium Chloride Mini Bag 100 ML IVPB SCH ×2 (05:42→17:57)
[2017-12-25] MEDS: *HR* Heparin 5,000 UNIT/ML VIAL SQ SCH ×2 (05:45→17:57)
[2017-12-25 06:25] LABS: Basophils % 0.2 %; Eosinophils # 0.1 K/mcL (0.0-0.6); Eosinophils % 0.9 %; Hematocrit 33.8 % (35.3-44.9); Hemoglobin 11.2 g/dL (11.5-15.4); Immature Granulocytes % 0.6 % (0-4); Lymphocytes # 1.6 K/mcL (0.6-4.6); Lymphocytes % 16.7 %; Mean Corpuscular HGB Conc 33.1 g/dL (31.6-35.5); Mean Corpuscular Volume 87.6 fL (83.0-100.0); Mean Platelet Volume 9.4 fL (9.4-12.4); Monocytes # 0.6 K/mcL (0.0-1.3); Monocytes % 5.8 %; Neutrophils # 7.2 K/mcL (1.6-8.9); Nucleated Red Blood Cells 0.2 /100 WBC (0); Platelet Count 404 K/mcL (140-400); Red Blood Count 3.86 M/mcL (3.82-4.97); Red Cell Distribution Width 14.7 % (11.5-14.5); Segmented Neutrophils % 75.8 %
[2017-12-25 06:31] LABS: INR 1.3; Prothrombin Time 13.7 Seconds (9.4-12.1)
[2017-12-25 06:40] LABS: Calcium 8.8 mg/dL (8.6-10.3); Potassium 5.2 mEq/L (3.5-5.1)
--- NOTE | 2017-12-25 07:55 | Nephrology Progress Note ---
Date of Encounter: 12/25/17 Time of Encounter: 07:53 - Assessment and Plan (1) Acute kidney injury superimposed on chronic kidney disease Current Visit: No Status: Acute IR consult for HD line placement today, HD today. Scr 3.64 and GFR 12, stable from yesterday. K 5.2, will check after HD today. Continue to avoid nephrotoxins and renal dose all medications. (2) PNA (pneumonia) Current Visit: Yes Status: Acute Per primary team. Qualifiers: Pneumonia type: due to unspecified organism Laterality: right Lung location: upper lobe of lung Qualified Code(s): J18.1 - Lobar pneumonia, unspecified organism (3) UTI (urinary tract infection) Current Visit: Yes Status: Acute Per primary team. Qualifiers: Urinary tract infection type: site unspecified Hematuria presence: without hematuria Qualified Code(s): N39.0 - Urinary tract infection, site not specified (4) Generalized weakness Current Visit: Yes Status: Acute Per primary team. Subjective Principal diagnosis: hypotension Interval history: Pt seen and examined, denies CP/SOB. Admits to nausea without emesis. Objective - Vital Signs Vital signs: Vital Signs Temp Pulse Resp BP Pulse Ox 12/25/17 05:27 97.5 F L 85 16 125/66 100 12/24/17 21:06 97.5 F L 95 16 130/75 99 12/24/17 17:01 97.4 F L 94 16 172/94 100 12/24/17 12:30 97.7 F 48 18 125/53 100 12/24/17 08:45 100 Intake and Output 12/24/17 12/24/17 12/25/17 15:59 23:59 07:59 Intake Total 0 / 0 60 / 60 1100 / 1100 Output Total 575 / 575 500 / 500 550 / 550 Balance -575 / -575 -440 / -440 550 / 550 Intake: IV Fluids 1100 / 1100 0.9 % Sodium Chloride 1,000 ML 1000 / 1000 @ 75 mls/hr IVC .[id number] [facility] Rx #:[id number] Zosyn 3.375 GM In 0.9 % Sodium 100 / 100 Chloride (Mini-Bag +) 100 ML @ 25 mls/hr IVPB Q12HR [facility] Rx#: [id number] Oral 0 / 0 60 / 60 0 / 0 Output: Catheter 575 / 575 500 / 500 550 / 550 Other: Meal Breakfast Percent of Meal Consumed 0% Stool Size Smear Stool Consistency soft Stool Characteristics Pasty Stool Color Brown Weight 56.1 kg Blood Glucose* 175 136 168 Patient Weight 12/25/17 23:59 Weight 56.1 kg - General Appearance General appearance: Present: chronically ill, frail EENT: Present: ATNC, hearing intact, vision intact Neck: Present: supple Respiratory: Present: clear Cardiology: Present: no edema, normal S1, normal S2 Gastrointestinal: Present: normoactive bowel sounds, no tenderness, no guarding Integumentary: Present: no rash, warm and dry Neurologic: Present: alert and oriented x3 Psychiatric: Present: mood/affect appropriate, cooperative - Lab 12/25/17 05:35 12/25/17 05:35 Most recent lab results Calcium 8.8 mg/dL (8.6-10.3) 12/25/17 05:35 Phosphorus 4.3 mg/dL (2.7-4.5) 12/24/17 09:09 Magnesium 1.7 mg/dL (1.6-2.6) 12/24/17 09:09 Consult Discharge Plan - Plan Referrals: Macario Diallo MD [Primary Care Provider] - Cruzito Alan DO [Partnered Physician] - 01/08/18 10:15 am
[2017-12-25] MEDS: Insulin LISPRO 300 UNITS/3 ML VIAL SQ SCH ×4 (08:34→21:59)
[2017-12-25] MEDS ORDERED: Heparin 1,000 UNITS/500 mL 500 ML ONE (10:28)
[2017-12-25 11:27] LABS: Hepatitis B Surface Antibody 0.03 mIU/mL; Hepatitis B Surface Antigen Nonreactive (Nonreactive)
[2017-12-25] MEDS ORDERED: *HR* Heparin 5,000 UNIT/ML VIAL ONE (11:32)
--- NOTE | 2017-12-25 11:38 | IR Procedure Note ---
Date of procedure: 12/25/17 Consent Obtained: Verbal consent Timeout: Correct patient and procedure verified, Time out performed, Skin prep completed Local anesthetic: Lidocaine 1% Indications: Renal failure Procedure Performed: Temp dialysis catheter as she is on ASA not withheld Was there an special ed assistant present: No Results/Findings: [facility] 12F 24cm temp dialysis catheter placement Estimated blood loss (cc): 0 Complications: None; Tolerated procedure well Post Procedure Treatment Plan: Monitor on floor Specimen: None
[2017-12-25] MEDS ORDERED: Sodium Bicarbonate 75 MEQ in 0.45 % Sodium Chloride 1,000 ML IVC SCH ×2 (15:00→15:45)
[2017-12-25] MEDS: Cholecalciferol (D-3) 1,000 UNIT TABLET PO SCH (15:11)
[2017-12-25] MEDS: Lactobacillus 1 EACH CAP.SPRINK PO SCH (15:11)
--- NOTE | 2017-12-25 17:11 | Internal Med Progress Note ---
Date of Encounter: 12/25/17 Time of Encounter: 17:10 - Assessment and plan (1) Nausea vomiting and diarrhea Current Visit: No Status: Acute Assessment and plan: - ADAT; Currently clear liquid diet. Still complaints of nausea/vomiting. - Possibly uremia, gastroenteritis, UTI, proctitis (less likely) - Had temporary HD cath placed today - Plan for HD when able, was held off today because of hypothermia. - Symptomatic treatment for nausea and vomiting - Change IV fluid to 1/2NS with 75 bicarb - ADAT - GI panel pending. - Continue Zosyn to cover UTI and GI sources of bacterial infection - The CT scan showed stable bilateral hydroureteronephrosis. It does note wall thickening of rectum/anus similar to prior exam as well. Could be proctitis according to radiology read, but this was seen in previous imaging. She is having worsening renal failure. (2) Hypothermia Current Visit: Yes Status: Acute Assessment and plan: Unsure of cause - Obtain TSH, serum cortisol level - Continue IV fluid hydration and warming blanket - She is high risk of infection; currently covered with Zosyn for UTI and possible bacterial GI infection (Proctitis? Seen on CT scan), but - stat blood cultures and infectious workup being done now to rule out early sepsis. - If there becomes sepsis suspicion, may consider adding MRSA coverage, though at this point there is no suspicion of any sort of MRSA infection. Qualifiers: Encounter type: initial encounter Qualified Code(s): T68.XXXA - Hypothermia , initial encounter (3) Bradycardia Current Visit: Yes Status: Acute Assessment and plan: Unsure if this is asymptomatic or symptomatic as patient does complain of epigastric discomfort and nausea, however she describes more reflux-like symptoms and she may have a gastroenteritis. I reviewed telemetry strip from 0900 and it was 28 bpm. A stat ECG done now showed a sinus rhythm with HR 78 bpm, no ST/T wave changes that I can appreciate. Otherwise does have many PVCs. I would like Cardiology to review this as well . Called Cardiology on 12/24 and a review of telemetry Retirement Manager Dr. Zambrano noted that this is not true bradycardia on telemetry. If there remains question, Cardiology will be consulted. (4) Diabetes mellitus Current Visit: No Status: Chronic Assessment and plan: Continue basal and sliding-scale insulin coverage Goal glucose <180 to promote infection healing. Currently advancing diet. Qualifiers: Diabetes mellitus type: type 2 Diabetes mellitus manager terminal insulin use: with manager terminal use Diabetes mellitus complication status: with kidney complications Diabetes mellitus complication detail: with chronic kidney disease Chronic kidney disease stage: stage 3 (moderate) Qualified Code(s): E11.22 - Type 2 diabetes mellitus with diabetic chronic kidney disease; N18.3 - Chronic kidney disease, stage 3 (moderate); Z79.4 - skilled nursing (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 (5) Hyponatremia Current Visit: No Status: Acute Assessment and plan: Chronic. Patient is on by mouth sodium chloride pills, will continue Now within normal limits, improved with gentle hydration. (6) HTN (hypertension) Current Visit: No Status: Chronic Assessment and plan: Continue home medications, currently normal blood pressure Was holding metoprolol because of suspected severe bradycardia on telemetry. Currently having some bigemini on telemetry, will resume metoprolol and monitor. Qualifiers: Hypertension type: essential hypertension Qualified Code(s): I10 - Essential (primary) hypertension (7) Catheter-associated urinary tract infection Current Visit: No Status: Ruled-out Assessment and plan: Frequent history of UTI. UA shows positive for UTI. Patient is a chronic Madden catheter user. Review of prior cultures: - Previous urine culture result reviewed, shows Citrobacter Frenndii, Continue Zosyn (Cefepime on admission discontinued because possibly GI infection ) Qualifiers: Indwelling urinary catheter type: indwelling urethral catheter Encounter type: subsequent encounter Qualified Code(s): T83.511D - Infection and inflammatory reaction due to indwelling urethral catheter, subsequent encounter ; N39.0 - Urinary tract infection, site not specified; N39.0 - Urinary tract infection, site not specified (8) Acute kidney injury superimposed on chronic kidney disease Current Visit: No Status: Acute Assessment and plan: Patient has a history of chronic obstructive renal disease. She was placed on chronic Madden catheter and plan for hemodialysis if kidney function does not improve. On admission cr 4.9 - Continue careful IV fluid hydration - Avoid the nephrotoxic medications - Strict I/Os - Nephrology consulted, recommendations appreciated. - Was planned for dialysis today but patient was hypotermic and so not done. (9) CKD (chronic kidney disease) stage 5, GFR less than 15 ml/min Current Visit: No Status: Acute Assessment and plan: Management as above (10) DVT prophylaxis Current Visit: No Status: Acute Assessment and plan: Heparin subcutaneously - Time Spent With Patient Total time spent is greater than 50% in coordination of care (as documented) at patient's floor/unit and/or counseling patient: - Subjective Interval history: 12/25: Patient had temporary HD cath placed today. She was scheduled for dialysis today but cancelled since Patient temperature noted to be low as 94.8 today. - Constitutional Vitals: Temp Pulse Resp BP Pulse Ox 96.1 F L 82 14 137/81 100 12/25/17 15:45 12/25/17 15:45 12/25/17 15:45 12/25/17 15:45 12/25/17 15:45 General appearance: Present: A&O X 3, no acute distress, answers questions appropriately Exam: - Head Head exam: Present: atraumatic, normocephalic - Eye Eye exam: Present: PERRL, conjuntiva pink, sclera anicteric Pupils: Present: PERRL - Neck Neck exam general surgery: Present: supple, trachea midline. Absent: lymphadenopathy - Respiratory Respiratory exam: Present: CTAB. Absent: accessory muscle use, rales, rhonchi, wheezes - Cardiovascular Cardiovascular exam: Present: RRR, +S1, +S2. Absent: diastolic murmur, gallop, rubs, systolic murmur - GI/Abdominal GI/Abdominal exam: Present: normal bowel sounds, soft, no peritoneal signs. Absent: distended, tenderness - Extremities Exam Extremities exam: Present: warm, radial pulses palpable and symmetrical. Absent : calf tenderness, cyanotic, pedal edema - Neurological Exam Neurological exam: Present: CN II-XII intact, oriented X3, no focal deficits. Absent: pronater drift, facial droop, speech deficit - Skin Skin exam: Present: dry, intact Internal Medicine: Result - Labs CBC & Chem 7: 12/25/17 05:35 12/25/17 05:35 Labs: Short CBC 12/25/17 Range/Units 05:35 WBC 9.5 (4.3-11.1) K/mcL Hgb 11.2 L (11.5-15.4) g/dL Hct 33.8 L (35.3-44.9) % Plt Count 404 H (140-400) K/mcL Neutrophils # 7.2 (1.6-8.9) K/mcL BMP 12/25/17 05:35 Sodium 134 L Potassium 5.2 H Chloride 110 H Carbon Dioxide 14 L BUN 89 H Creatinine 3.64 H Glucose 190 H Calcium 8.8 Cardiac Enzymes 12/25/17 12/25/17 Range/Units 05:35 13:34 Troponin I 0.05 H* 0.03 (< 0.04) ng/mL - ABG Interpretation ABG results: PT/INR, D-dimer PT 13.7 Seconds (9.4-12.1) H 12/25/17 05:35 - Impressions Impressions Echocardiogram 12/24/17 10:00 Impressions: LVEF 55%. Normal LV chamber size and function. Indeterminate diastolic function. Normal right ventricular structure and function. Mild concentric left ventricular hypertrophy. No significant valvular dysfunction. Left Ventricular Wall Motion: Rest Echo Findings All wall segments showed normal motion. Findings: Study Quality * Technically adequate exam. ECG Findings * Appears to be sinus rhythm with PVCs. Left Ventricle * LVEF 55%. * Normal LV chamber size and function. * Mild concentric left ventricular hypertrophy. * Indeterminate diastolic function. Right Ventricle * Normal right ventricular structure and function. Left Atrium * Mildly dilated left atrium. Right Atrium * Normal right atrial size. Aortic Valve * Trileaflet aortic valve. * Mildly calcified aortic valve leaflets. * No aortic regurgitation. * No aortic stenosis. Mitral Valve * Mildly thickened mitral valve leaflets. * Trace mitral regurgitation. * No mitral stenosis. Tricuspid Valve * Normal tricuspid valve structure and function. * Trace tricuspid regurgitation. * No evidence of pulmonary hypertension. Pulmonic Valve * Normal pulmonic valve structure and function. * No pulmonic regurgitation. Aorta * Normally sized aortic root. Pericardium * Trivial pericardial effusion. IVC * Normal IVC dimensions and inspiratory collapse. Pulmonary Artery * Normal visualized portions of the main pulmonary artery. Guidance Needle Placement Ultrasound 12/25/17 00:00 IMPRESSION: 1. Left internal jugular vein temporary dialysis catheter as discussed above. D/ / Hubetr Dc MD / Hubert Dc MD Interpreting Provider: Hubert Dc MD Insertion Non-Tunneled Catheter 12/25/17 00:00 IMPRESSION: 1. Left internal jugular vein temporary dialysis catheter as discussed above. D/ / Hubert Dc MD / Hubert Dc MD Interpreting Provider: Hubert Dc MD Consult Discharge Plan - Plan Referrals: Macario Diallo MD [Primary Care Provider] - Cruzito Alan DO [Partnered Physician] - 01/08/18 10:15 am
[2017-12-25 17:14] LABS: Calcium 8.9 mg/dL (8.6-10.3); Potassium 5.1 mEq/L (3.5-5.1)
[2017-12-25 21:38] LABS: Calcium 8.8 mg/dL (8.6-10.3); Potassium 4.7 mEq/L (3.5-5.1)
[2017-12-25] MEDS: Insulin DETEMIR 100 UNIT/ML X5UNITS SQ SCH (21:59)
[2017-12-26 05:28] LABS: Basophils % 0.4 %; Eosinophils # 0.3 K/mcL (0.0-0.6); Eosinophils % 4.6 %; Hematocrit 30.8 % (35.3-44.9); Hemoglobin 10.4 g/dL (11.5-15.4); Immature Granulocytes % 0.7 % (0-4); Lymphocytes # 1.6 K/mcL (0.6-4.6); Lymphocytes % 22.2 %; Mean Corpuscular HGB Conc 33.8 g/dL (31.6-35.5); Mean Corpuscular Hemoglobin 29.1 pg (28.0-33.3); Mean Corpuscular Volume 86.3 fL (83.0-100.0); Mean Platelet Volume 9.4 fL (9.4-12.4); Monocytes # 0.7 K/mcL (0.0-1.3); Neutrophils # 4.6 K/mcL (1.6-8.9); Platelet Count 378 K/mcL (140-400); Red Blood Count 3.57 M/mcL (3.82-4.97); Red Cell Distribution Width 14.7 % (11.5-14.5); Segmented Neutrophils % 63.1 %
[2017-12-26 05:56] LABS: Calcium 8.4 mg/dL (8.6-10.3); Potassium 4.1 mEq/L (3.5-5.1)
[2017-12-26 06:08] LABS: Thyroid Stimulating Hormone 2.284 mcIU/mL (0.340-5.600)
[2017-12-26] MEDS: Piperacillin/Tazobactam 3.375 GM in 0.9 % Sodium Chloride Mini Bag 100 ML IVPB SCH ×2 (06:33→18:29)
[2017-12-26] MEDS: *HR* Heparin 5,000 UNIT/ML VIAL SQ SCH ×2 (06:34→18:30)
[2017-12-26 07:17] LABS: Adenovirus F 40/41 PCR Not detected (Not detect); Astrovirus PCR Not detected (Not detect); C.difficile Toxin A/B by PCR See reflex test (Not detect); Campylobacter by PCR Not detected (Not detect); Cryptosporidium by PCR Not detected (Not detect); Cyclospora cayetanensis PCR Not detected (Not detect); E. coli O157 by PCR Not detected (Not detect); Entamoeba histolytica PCR Not detected (Not detect); Enteroaggregative E.coli(EAEC) Not detected (Not detect); Enteropathogenic E.coli(EPEC) Not detected (Not detect); Enterotoxigenic E.coli (ETEC) Not detected (Not detect); Giardia lamblia PCR Not detected (Not detect); Norovirus GI/GII PCR Not detected (Not detect); Plesiomonas shigelloides PCR Not detected (Not detect); Rotavirus A PCR Not detected (Not detect); Salmonella PCR Not detected (Not detect); Sapovirus PCR Not detected (Not detect); Shig/EnteroinvasiveE coli EIEC Not detected (Not detect); Shigalike tox-prod E coli STEC Not detected (Not detect); Vibrio PCR Not detected (Not detect); Vibrio cholerae PCR Not detected (Not detect); Yersinia enterocolitica PCR Not detected (Not detect)
[2017-12-26] MEDS: Pantoprazole 40 MG VIAL IVP SCH (08:08)
[2017-12-26] MEDS: Lactobacillus 1 EACH CAP.SPRINK PO SCH (08:08)
[2017-12-26] MEDS: Cholecalciferol (D-3) 1,000 UNIT TABLET PO SCH (08:09)
[2017-12-26] MEDS ORDERED: 0.9 % Sodium Chloride 1,000 ML ONE (09:20)
[2017-12-26 09:48] LABS: Calcium 8.6 mg/dL (8.6-10.3); Potassium 3.9 mEq/L (3.5-5.1)
[2017-12-26] MEDS ORDERED: 0.9 % Sodium Chloride 250 ML IVC PRN (09:58)
[2017-12-26] MEDS ORDERED: 0.9 % Sodium Chloride 1,000 ML PRIME SCH (10:00)
--- NOTE | 2017-12-26 10:11 | Internal Med Progress Note ---
Date of Encounter: 12/26/17 Time of Encounter: 10:08 - Assessment and plan (1) Nausea vomiting and diarrhea Current Visit: No Status: Acute Assessment and plan: - ADAT; Currently clear liquid diet. Still complaints of nausea/vomiting. - Possibly uremia, gastroenteritis, UTI, proctitis (less likely) - Had temporary HD cath placed today - Symptomatic treatment for nausea and vomiting - Change IV fluid to 1/2NS with 75 bicarb - ADAT - GI panel negative so far, C dif still pending - Continue Zosyn to cover UTI and GI sources of bacterial infection - The CT scan showed stable bilateral hydroureteronephrosis. It does note wall thickening of rectum/anus similar to prior exam as well. Could be proctitis according to radiology read, but this was seen in previous imaging. She is having worsening renal failure. Dialysis today, will see if symptoms improve afterwords. (2) Hypothermia Current Visit: Yes Status: Acute Assessment and plan: Unsure of cause - TSH, serum cortisol level wnl - Cont warming blanket as needed - Received gentle hydration yesterday - She is high risk of infection; currently covered with Zosyn for UTI and possible bacterial GI infection (Proctitis? Seen on CT scan), but - stat blood cultures and infectious workup negative to date - If there becomes sepsis suspicion, may consider adding MRSA coverage, though at this point there is no suspicion of any sort of MRSA infection. Qualifiers: Encounter type: initial encounter Qualified Code(s): T68.XXXA - Hypothermia , initial encounter (3) Bradycardia Current Visit: Yes Status: Acute Assessment and plan: Unsure if this is asymptomatic or symptomatic as patient does complain of epigastric discomfort and nausea, however she describes more reflux-like symptoms and she may have a gastroenteritis. I reviewed telemetry strip from 0900 and it was 28 bpm. A stat ECG done now showed a sinus rhythm with HR 78 bpm, no ST/T wave changes that I can appreciate. Otherwise does have many PVCs. I would like Cardiology to review this as well . Called Cardiology on 12/24 and a review of telemetry Nursing Director Dr. Zambrano noted that this is not true bradycardia on telemetry. If there remains question, Cardiology will be consulted. HR currently normal Low dose metoprolol has been restarted yesterday without issue to avoid rebound tachycardia. (4) Diabetes mellitus Current Visit: No Status: Chronic Assessment and plan: Continue basal and sliding-scale insulin coverage Goal glucose <180 to promote infection healing. Diabetic diet Qualifiers: Diabetes mellitus type: type 2 Diabetes mellitus jail insulin use: with jail use Diabetes mellitus complication status: with kidney complications Diabetes mellitus complication detail: with chronic kidney disease Chronic kidney disease stage: stage 3 (moderate) Qualified Code(s): E11.22 - Type 2 diabetes mellitus with diabetic chronic kidney disease; N18.3 - Chronic kidney disease, stage 3 (moderate); Z79.4 - intermediate card tender (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 (5) Hyponatremia Current Visit: No Status: Acute Assessment and plan: Chronic. Patient is on by mouth sodium chloride pills, will continue Now within normal limits, improved with gentle hydration. Management per Nephrology (6) HTN (hypertension) Current Visit: No Status: Chronic Assessment and plan: SBP now running 140-160s, metoprolol resumed, will monitor. Was holding initially metoprolol because of suspected severe bradycardia on telemetry, though this turned out not a true bradycardia Qualifiers: Hypertension type: essential hypertension Qualified Code(s): I10 - Essential (primary) hypertension (7) Catheter-associated urinary tract infection Current Visit: No Status: Ruled-out Assessment and plan: Frequent history of UTI. UA shows positive for UTI. Patient is a chronic Madden catheter user. Review of prior cultures: - Previous urine culture result reviewed, shows Citrobacter Frenndii, Continue Zosyn (Cefepime on admission discontinued because possibly GI infection ) Qualifiers: Indwelling urinary catheter type: indwelling urethral catheter Encounter type: subsequent encounter Qualified Code(s): T83.511D - Infection and inflammatory reaction due to indwelling urethral catheter, subsequent encounter ; N39.0 - Urinary tract infection, site not specified; N39.0 - Urinary tract infection, site not specified (8) Acute kidney injury superimposed on chronic kidney disease Current Visit: No Status: Acute Assessment and plan: Patient has a history of chronic obstructive renal disease. She was placed on chronic Madden catheter and plan for hemodialysis if kidney function does not improve. On admission cr 4.9 - Continue careful IV fluid hydration - Avoid the nephrotoxic medications - Strict I/Os - Nephrology consulted, recommendations appreciated. Dialysis today (9) CKD (chronic kidney disease) stage 5, GFR less than 15 ml/min Current Visit: No Status: Acute Assessment and plan: Management as above (10) DVT prophylaxis Current Visit: No Status: Acute Assessment and plan: Heparin subcutaneously - Time Spent With Patient Total time spent is greater than 50% in coordination of care (as documented) at patient's floor/unit and/or counseling patient: - Subjective Interval history: 12/25: Patient had temporary HD cath placed. She was scheduled for dialysis today but cancelled since Patient temperature noted to be low as 94.8 today. 12/26: no hypothermic episodes. Patient feeling a little better in regards to nausea, but she is nervous about dialysis. Denies fevers/chills, abdominal pain , diarrhea. - Constitutional Vitals: Temp Pulse Resp BP Pulse Ox 97.5 F L 63 14 161/75 96 12/26/17 07:17 12/26/17 07:17 12/26/17 07:17 12/26/17 07:17 12/26/17 07:17 General appearance: Present: A&O X 3, no acute distress, answers questions appropriately - Head Head exam: Present: atraumatic, normocephalic - Eye Eye exam: Present: PERRL, conjuntiva pink, sclera anicteric Pupils: Present: PERRL - Neck Neck exam general surgery: Present: supple, trachea midline. Absent: lymphadenopathy - Respiratory Respiratory exam: Present: CTAB. Absent: accessory muscle use, rales, rhonchi, wheezes - Cardiovascular Cardiovascular exam: Present: RRR, +S1, +S2. Absent: diastolic murmur, gallop, rubs, systolic murmur - GI/Abdominal GI/Abdominal exam: Present: normal bowel sounds, soft, no peritoneal signs. Absent: distended, tenderness - Extremities Exam Extremities exam: Present: warm, radial pulses palpable and symmetrical. Absent : calf tenderness, cyanotic, pedal edema - Neurological Exam Neurological exam: Present: CN II-XII intact, oriented X3, no focal deficits. Absent: pronater drift, facial droop, speech deficit - Skin Skin exam: Present: dry, intact Internal Medicine: Result - Labs CBC & Chem 7: 12/26/17 04:37 12/26/17 09:12 Labs: Short CBC 12/26/17 Range/Units 04:37 WBC 7.2 (4.3-11.1) K/mcL Hgb 10.4 L (11.5-15.4) g/dL Hct 30.8 L (35.3-44.9) % Plt Count 378 (140-400) K/mcL Neutrophils # 4.6 (1.6-8.9) K/mcL BMP 12/25/17 12/25/17 12/26/17 15:01 21:07 04:37 Sodium 139 139 141 Potassium 5.1 4.7 4.1 Chloride 111 H 112 H 111 H Carbon Dioxide 15 L 16 L 17 L BUN 87 H 87 H 83 H Creatinine 3.99 H 3.95 H 3.48 H Glucose 176 H 237 H 160 H Calcium 8.9 8.8 8.4 L 12/26/17 09:12 Sodium 140 Potassium 3.9 Chloride 111 H Carbon Dioxide 19 L BUN 78 H Creatinine 3.65 H Glucose 163 H Calcium 8.6 Cardiac Enzymes 12/25/17 Range/Units 13:34 Troponin I 0.03 (< 0.04) ng/mL - ABG Interpretation ABG results: PT/INR, D-dimer PT 13.7 Seconds (9.4-12.1) H 12/25/17 05:35 - Impressions Impressions Echocardiogram 12/24/17 10:00 Impressions: LVEF 55%. Normal LV chamber size and function. Indeterminate diastolic function. Normal right ventricular structure and function. Mild concentric left ventricular hypertrophy. No significant valvular dysfunction. Left Ventricular Wall Motion: Rest Echo Findings All wall segments showed normal motion. Findings: Study Quality * Technically adequate exam. ECG Findings * Appears to be sinus rhythm with PVCs. Left Ventricle * LVEF 55%. * Normal LV chamber size and function. * Mild concentric left ventricular hypertrophy. * Indeterminate diastolic function. Right Ventricle * Normal right ventricular structure and function. Left Atrium * Mildly dilated left atrium. Right Atrium * Normal right atrial size. Aortic Valve * Trileaflet aortic valve. * Mildly calcified aortic valve leaflets. * No aortic regurgitation. * No aortic stenosis. Mitral Valve * Mildly thickened mitral valve leaflets. * Trace mitral regurgitation. * No mitral stenosis. Tricuspid Valve * Normal tricuspid valve structure and function. * Trace tricuspid regurgitation. * No evidence of pulmonary hypertension. Pulmonic Valve * Normal pulmonic valve structure and function. * No pulmonic regurgitation. Aorta * Normally sized aortic root. Pericardium * Trivial pericardial effusion. IVC * Normal IVC dimensions and inspiratory collapse. Pulmonary Artery * Normal visualized portions of the main pulmonary artery. Guidance Needle Placement Ultrasound 12/25/17 00:00 IMPRESSION: 1. Left internal jugular vein temporary dialysis catheter as discussed above. D/ / Hubert Dc MD / Hubert Dc MD Interpreting Provider: Hubert Dc MD Insertion Non-Tunneled Catheter 12/25/17 00:00 IMPRESSION: 1. Left internal jugular vein temporary dialysis catheter as discussed above. D/ / Hubert Dc MD / Hubert Dc MD Interpreting Provider: Hubert Dc MD Consult Discharge Plan - Plan Referrals: Macario Diallo MD [Primary Care Provider] - Cruzito Alan DO [Partnered Physician] - 01/08/18 10:15 am
--- NOTE | 2017-12-26 13:14 | Nephrology Progress Note ---
Date of Encounter: 12/26/17 Time of Encounter: 13:11 - Assessment and Plan (1) Acute renal failure Current Visit: Yes Status: Acute Patient with acute kidney injury that was progressive. Patient had a non- tunneled dialysis catheter placed for dialysis. She underwent dialysis today. She seems to be doing okay. She was seen while on dialysis. Qualifiers: Acute renal failure type: unspecified Qualified Code(s): N17.9 - Acute kidney failure, unspecified Subjective Principal diagnosis: hypotension Interval history: Patient seen on hemodialysis. She has no complaints. Objective - Vital Signs Vital signs: Vital Signs Temp Pulse Resp BP Pulse Ox 12/26/17 11:00 97.0 F L 20 106/55 12/26/17 10:30 97.1 F L 18 155/86 12/26/17 10:19 97.4 F L 70 16 155/70 100 12/26/17 07:17 97.5 F L 63 14 161/75 96 12/26/17 04:26 97.8 F 73 15 145/70 98 12/25/17 19:49 97.4 F L 78 16 155/80 100 12/25/17 18:20 96.0 F L 80 14 169/81 100 12/25/17 17:09 96.2 F L 78 16 163/81 100 12/25/17 15:45 96.1 F L 82 14 137/81 100 12/25/17 14:10 94.8 F L 93 18 143/75 100 Intake and Output 12/25/17 12/26/17 12/26/17 23:59 07:59 15:59 Intake Total 0 / 0 340 / 340 600 / 600 Output Total 550 / 550 500 / 500 400 / 400 Balance -550 / -550 -160 / -160 200 / 200 Intake: IV Fluids 100 / 100 Zosyn 3.375 GM In 0.9 % Sodium 100 / 100 Chloride (Mini-Bag +) 100 ML @ 25 mls/hr IVPB Q12HR [facility] Rx#: [id number] Oral 0 / 0 240 / 240 0 / 0 Intake, Rinseback and Flushes 600 / 600 Output: Urine 0 / 0 Total Dialysis (HD) Output 0 / 0 Catheter 550 / 550 500 / 500 400 / 400 Other: Meal NPO Breakfast Percent of Meal Consumed 0% 5% Stool Size Large Moderate Smear Stool Consistency liquid loose soft Stool Color Green Brown Brown # Bowel Movements 1 # Bowel Movement Diapers 1 1 1 Weight 56.7 kg Blood Glucose* 221 148 146 Hemodialysis Net Fluid Removed 0 (mL) Patient Weight 12/26/17 23:59 Weight 56.7 kg - General Appearance General appearance: Present: well-developed, well-nourished EENT: Present: ATNC Cardiology: Present: regular rate Psychiatric: Present: mood/affect appropriate - Lab 12/26/17 04:37 12/26/17 09:12 Most recent lab results Calcium 8.6 mg/dL (8.6-10.3) 12/26/17 09:12 Phosphorus 4.3 mg/dL (2.7-4.5) 12/24/17 09:09 Magnesium 1.7 mg/dL (1.6-2.6) 12/24/17 09:09 Consult Discharge Plan - Plan Referrals: Macario Diallo MD [Primary Care Provider] - Cruzito Alan DO [Partnered Physician] - 01/08/18 10:15 am
[2017-12-26] MEDS: Insulin LISPRO 300 UNITS/3 ML VIAL SQ SCH ×3 (18:29→21:32)
[2017-12-26] MEDS: Insulin DETEMIR 100 UNIT/ML X5UNITS SQ SCH (21:32)
[2017-12-27 05:23] LABS: Basophils % 0.4 %; Eosinophils # 0.3 K/mcL (0.0-0.6); Hematocrit 29.3 % (35.3-44.9); Hemoglobin 9.6 g/dL (11.5-15.4); Immature Granulocytes % 0.6 % (0-4); Lymphocytes % 29.3 %; Mean Corpuscular HGB Conc 32.8 g/dL (31.6-35.5); Mean Corpuscular Hemoglobin 28.4 pg (28.0-33.3); Mean Corpuscular Volume 86.7 fL (83.0-100.0); Mean Platelet Volume 9.5 fL (9.4-12.4); Monocytes # 0.6 K/mcL (0.0-1.3); Monocytes % 8.2 %; Neutrophils # 3.8 K/mcL (1.6-8.9); Platelet Count 303 K/mcL (140-400); Red Blood Count 3.38 M/mcL (3.82-4.97); Red Cell Distribution Width 14.6 % (11.5-14.5); Segmented Neutrophils % 57.5 %
[2017-12-27] MEDS: Piperacillin/Tazobactam 3.375 GM in 0.9 % Sodium Chloride Mini Bag 100 ML IVPB SCH (05:33)
[2017-12-27] MEDS: *HR* Heparin 5,000 UNIT/ML VIAL SQ SCH ×2 (05:34→16:48)
[2017-12-27 05:36] LABS: Calcium 8.3 mg/dL (8.6-10.3); Potassium 3.4 mEq/L (3.5-5.1)
[2017-12-27] MEDS: Lactobacillus 1 EACH CAP.SPRINK PO SCH (08:00)
[2017-12-27] MEDS: Cholecalciferol (D-3) 1,000 UNIT TABLET PO SCH (08:00)
[2017-12-27] MEDS: Pantoprazole 40 MG VIAL IVP SCH (08:00)
--- NOTE | 2017-12-27 09:30 | Nephrology Progress Note ---
Date of Encounter: 12/27/17 Time of Encounter: 09:27 - Assessment and Plan (1) Acute renal failure Current Visit: Yes Status: Acute Patient with acute kidney injury that was progressive. Patient had a non- tunneled dialysis catheter placed for dialysis. She underwent dialysis Thursday. No need for dialysis today. Will need to exchange her catheter prior to the next dialysis session. Will check 24 hour urine. Avoid nephrotoxins. Renal dose medications. Renal diet. Metabolic acidosis improved after dialysis. Complete MERNA work-up. Qualifiers: Acute renal failure type: unspecified Qualified Code(s): N17.9 - Acute kidney failure, unspecified (2) Anemia Current Visit: No Status: Acute Will check iron stores, vitamin b12 and folate. Qualifiers: Anemia type: unspecified type Qualified Code(s): D64.9 - Anemia, unspecified (3) Elderly person living alone Current Visit: No Status: Chronic Per primary team and social work. Consider PT and ambulation. (4) Diabetes mellitus Current Visit: No Status: Chronic Per primary team. Qualifiers: Diabetes mellitus type: type 2 Diabetes mellitus mcc insulin use: with tank terminal gauger use Diabetes mellitus complication status: with kidney complications Diabetes mellitus complication detail: with chronic kidney disease Chronic kidney disease stage: stage 3 (moderate) Qualified Code(s): E11.22 - Type 2 diabetes mellitus with diabetic chronic kidney disease; N18.3 - Chronic kidney disease, stage 3 (moderate); Z79.4 - buttermaker continuous churn (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 (5) Anxiety Current Visit: No Status: Chronic (6) HTN (hypertension) Current Visit: No Status: Chronic Start Valsartan and titrate as needed. Qualifiers: Hypertension type: essential hypertension Qualified Code(s): I10 - Essential (primary) hypertension Subjective Principal diagnosis: hypotension Interval history: Patient seen and evaluated. She reports feeling slightly better after dialyisis on Thursday. She has no complaints. Dialysis was complicated by a kink in her HD line. Objective - Vital Signs Vital signs: Vital Signs Temp Pulse Resp BP Pulse Ox 12/27/17 07:41 97.6 F 66 16 174/78 99 12/27/17 04:59 98.0 F 64 16 169/71 98 12/26/17 21:18 97.8 F 78 17 160/78 98 12/26/17 20:08 98.0 F 74 16 138/68 100 12/26/17 20:00 98 12/26/17 14:22 98.0 F 70 16 157/67 99 12/26/17 11:00 97.0 F L 20 106/55 12/26/17 10:30 97.1 F L 18 155/86 12/26/17 10:19 97.4 F L 70 16 155/70 100 Intake and Output 12/26/17 12/27/17 12/27/17 23:59 07:59 15:59 Intake Total 340 / 340 Output Total 800 / 800 550 / 550 Balance -460 / -460 -550 / -550 Intake: IV Fluids 100 / 100 Zosyn 3.375 GM In 0.9 % Sodium 100 / 100 Chloride (Mini-Bag +) 100 ML @ 25 mls/hr IVPB Q12HR VIKA Rx#: [id number] Oral 240 / 240 Output: Catheter 800 / 800 550 / 550 Other: Meal Dinner Percent of Meal Consumed 0% Stool Size Smear Stool Color Brown # Bowel Movement Diapers 1 Weight 55.4 kg Blood Glucose* 132 185 Patient Weight 12/27/17 23:59 Weight 55.4 kg - General Appearance General appearance: Present: well-developed, well-nourished EENT: Present: ATNC Cardiology: Present: no edema, regular rate Dialysis Vascular Access: Venous Catheter (Left IJ.) Integumentary: Present: warm and dry Neurologic: Present: alert and oriented x3 Musculoskeletal: Present: no cyanosis Psychiatric: Present: mood/affect appropriate - Lab 12/27/17 04:22 12/27/17 04:22 Most recent lab results Calcium 8.3 mg/dL (8.6-10.3) L 12/27/17 04:22 Phosphorus 4.3 mg/dL (2.7-4.5) 12/24/17 09:09 Magnesium 1.7 mg/dL (1.6-2.6) 12/24/17 09:09 Consult Discharge Plan - Plan Referrals: Macario Diallo MD [Primary Care Provider] - Cruzito Alan DO [Partnered Physician] - 01/08/18 10:15 am
[2017-12-27] MEDS ORDERED: Insulin DETEMIR 100 UNIT/ML X5UNITS SQ SCH (13:26)
--- NOTE | 2017-12-27 13:33 | Internal Med Progress Note ---
Date of Encounter: 12/27/17 Time of Encounter: 13:28 - Assessment and plan (1) Nausea vomiting and diarrhea Current Visit: No Status: Acute Assessment and plan: - ADAT; Currently clear liquid diet. Still complaints of nausea/vomiting. - Possibly uremia, gastroenteritis, UTI, C diff (positive) - Symptomatic treatment for nausea and vomiting - ADAT - The CT scan showed stable bilateral hydroureteronephrosis. It does note wall thickening of rectum/anus similar to prior exam as well - this could be C diff. Could be proctitis according to radiology read, but this was seen in previous imaging. She is having worsening renal failure. Suspect to Highly likely From C diff, will start PO Vancomycin (2) Clostridium difficile colitis Current Visit: No Status: Suspected Assessment and plan: Likely cause for n/v, diarrhea, start PO vancomycin (3) Hypothermia Current Visit: Yes Status: Acute Assessment and plan: Unsure of cause - TSH, serum cortisol level wnl - resolved Qualifiers: Encounter type: initial encounter Qualified Code(s): T68.XXXA - Hypothermia , initial encounter (4) Bradycardia Current Visit: Yes Status: Acute Assessment and plan: Unsure if this is asymptomatic or symptomatic as patient does complain of epigastric discomfort and nausea, however she describes more reflux-like symptoms and she may have a gastroenteritis. I reviewed telemetry strip from 0900 and it was 28 bpm. A stat ECG done now showed a sinus rhythm with HR 78 bpm, no ST/T wave changes that I can appreciate. Otherwise does have many PVCs. I would like Cardiology to review this as well . Called Cardiology on 12/24 and a review of telemetry [employer] Dr. Zambrano noted that this is not true bradycardia on telemetry. If there remains question, Cardiology will be consulted. HR currently normal Low dose metoprolol was resumed without issue (5) Diabetes mellitus Current Visit: No Status: Chronic Assessment and plan: Continue basal and sliding-scale insulin coverage Goal glucose <180 to promote infection healing. Diabetic diet Increase Lantus to 30 units now patient diet improving and glucose increasing Qualifiers: Diabetes mellitus type: type 2 Diabetes mellitus intermediate teacher insulin use: with chcf use Diabetes mellitus complication status: with kidney complications Diabetes mellitus complication detail: with chronic kidney disease Chronic kidney disease stage: stage 3 (moderate) Qualified Code(s): E11.22 - Type 2 diabetes mellitus with diabetic chronic kidney disease; N18.3 - Chronic kidney disease, stage 3 (moderate); Z79.4 - FDC (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 (6) Hyponatremia Current Visit: No Status: Acute Assessment and plan: Chronic. Patient is on by mouth sodium chloride pills, will continue Now within normal limits, improved with gentle hydration. Management per Nephrology (7) HTN (hypertension) Current Visit: No Status: Chronic Assessment and plan: SBP now running 140-160s, metoprolol resumed, will monitor. Was holding initially metoprolol because of suspected severe bradycardia on telemetry, though this turned out not a true bradycardia Qualifiers: Hypertension type: essential hypertension Qualified Code(s): I10 - Essential (primary) hypertension (8) Catheter-associated urinary tract infection Current Visit: No Status: Ruled-out Assessment and plan: Frequent history of UTI. UA shows positive for UTI. Patient is a chronic Madden catheter user. Review of prior cultures: - Previous urine culture result reviewed, shows Citrobacter Frenndii, - can start Rocephin and DC Zosyn since likely this is UTI and C diff Qualifiers: Indwelling urinary catheter type: indwelling urethral catheter Encounter type: subsequent encounter Qualified Code(s): T83.511D - Infection and inflammatory reaction due to indwelling urethral catheter, subsequent encounter ; N39.0 - Urinary tract infection, site not specified; N39.0 - Urinary tract infection, site not specified (9) Acute kidney injury superimposed on chronic kidney disease Current Visit: No Status: Acute Assessment and plan: Patient has a history of chronic obstructive renal disease. She was placed on chronic Madden catheter and plan for hemodialysis if kidney function does not improve. On admission cr 4.9 - Continue careful IV fluid hydration - Avoid the nephrotoxic medications - Strict I/Os - Nephrology consulted, recommendations appreciated. No dialysis today (10) CKD (chronic kidney disease) stage 5, GFR less than 15 ml/min Current Visit: No Status: Acute Assessment and plan: Management as above (11) DVT prophylaxis Current Visit: No Status: Acute Assessment and plan: Heparin subcutaneously - Time Spent With Patient Total time spent is greater than 50% in coordination of care (as documented) at patient's floor/unit and/or counseling patient: - Subjective Interval history: 12/25: Patient had temporary HD cath placed. She was scheduled for dialysis today but cancelled since Patient temperature noted to be low as 94.8 today. 12/26: no hypothermic episodes. Patient feeling a little better in regards to nausea, but she is nervous about dialysis. Denies fevers/chills, abdominal pain , diarrhea. 12/27: appetite improved. Yesterday temp HD cath was unable to work for dialysis. Patient denies fevers/chills, diarrhea, n/v eating now without issue. - Constitutional Vitals: Temp Pulse Resp BP Pulse Ox 97.6 F 72 16 163/70 99 12/27/17 10:18 12/27/17 10:18 12/27/17 10:18 12/27/17 10:12/27/17 10:18 General appearance: Present: A&O X 3, no acute distress, answers questions appropriately - Head Head exam: Present: atraumatic, normocephalic - Eye Eye exam: Present: PERRL, conjuntiva pink, sclera anicteric Pupils: Present: PERRL - Neck Neck exam general surgery: Present: supple, trachea midline. Absent: lymphadenopathy - Respiratory Respiratory exam: Present: CTAB. Absent: accessory muscle use, rales, rhonchi, wheezes - Cardiovascular Cardiovascular exam: Present: RRR, +S1, +S2. Absent: diastolic murmur, gallop, rubs, systolic murmur - GI/Abdominal GI/Abdominal exam: Present: normal bowel sounds, soft, no peritoneal signs. Absent: distended, tenderness - Extremities Exam Extremities exam: Present: warm, radial pulses palpable and symmetrical. Absent : calf tenderness, cyanotic, pedal edema - Neurological Exam Neurological exam: Present: CN II-XII intact, oriented X3, no focal deficits. Absent: pronater drift, facial droop, speech deficit - Skin Skin exam: Present: dry, intact Internal Medicine: Result - Labs CBC & Chem 7: 12/27/17 04:22 12/27/17 04:22 Labs: Short CBC 12/27/17 Range/Units 04:22 WBC 6.7 (4.3-11.1) K/mcL Hgb 9.6 L (11.5-15.4) g/dL Hct 29.3 L (35.3-44.9) % Plt Count 303 (140-400) K/mcL Neutrophils # 3.8 (1.6-8.9) K/mcL BMP 12/27/17 04:22 Sodium 137 Potassium 3.4 L Chloride 107 Carbon Dioxide 20 L BUN 66 H Creatinine 3.35 H Glucose 234 H Calcium 8.3 L - ABG Interpretation ABG results: PT/INR, D-dimer PT 13.7 Seconds (9.4-12.1) H 12/25/17 05:35 Consult Discharge Plan - Plan Referrals: Macario Diallo MD [Primary Care Provider] - Cruzito Alna DO [Partnered Physician] - 01/08/18 10:15 am
[2017-12-27] MEDS: Vancomycin Oral Soln 125 MG/2.5 ML UDC PO SCH ×3 (16:49→21:48)
[2017-12-27] MEDS: Insulin LISPRO 300 UNITS/3 ML VIAL SQ SCH ×3 (16:58→21:50)
[2017-12-27] MEDS: Renal Vitamin 1 MG CAPSULE PO SCH (19:46)
[2017-12-27] MEDS: Valsartan 80 MG TABLET PO SCH (19:46)
[2017-12-27] MEDS: Gabapentin 100 MG CAPSULE PO SCH (19:47)
[2017-12-28] MEDS: *HR* Heparin 5,000 UNIT/ML VIAL SQ SCH ×2 (06:09→17:12)
[2017-12-28 07:52] LABS: Lymphocytes % 9.6 %
[2017-12-28 07:56] LABS: Basophils % 0.1 %; Eosinophils # 0.2 K/mcL (0.0-0.6); Eosinophils % 1.5 %; Hemoglobin 10.5 g/dL (11.5-15.4); Immature Granulocytes % 0.9 % (0-4); Immature Platelets 1.6 % (1.1-6.1); Lymphocytes # 1.4 K/mcL (0.6-4.6); Mean Corpuscular HGB Conc 33.9 g/dL (31.6-35.5); Mean Corpuscular Hemoglobin 29.2 pg (28.0-33.3); Mean Corpuscular Volume 86.4 fL (83.0-100.0); Mean Platelet Volume 9.6 fL (9.4-12.4); Monocytes # 0.5 K/mcL (0.0-1.3); Monocytes % 3.3 %; Neutrophils # 12.6 K/mcL (1.6-8.9); Platelet Count 321 K/mcL (140-400); Red Blood Count 3.59 M/mcL (3.82-4.97); Red Cell Distribution Width 14.5 % (11.5-14.5); Segmented Neutrophils % 84.6 %
[2017-12-28 08:06] LABS: Calcium 8.5 mg/dL (8.6-10.3)
[2017-12-28 08:29] LABS: Folate 3.6 ng/mL (3.0-16.0)
[2017-12-28 08:35] LABS: % Iron Saturation 11 % (15-50); Ferritin 686 ng/ml (10-120); Iron 21 mcg/dL (50-170); Transferrin 137 mg/dL (203-362)
--- NOTE | 2017-12-28 08:50 | Nephrology Progress Note ---
Date of Encounter: 12/28/17 Time of Encounter: 08:49 - Assessment and Plan (1) Acute renal failure Current Visit: Yes Status: Acute Patient with acute kidney injury that was progressive. Patient had a non- tunneled dialysis catheter placed for dialysis. She underwent dialysis Thursday. No need for dialysis today. Will need to exchange her catheter prior to the next dialysis session. Will check 24 hour urine. Avoid nephrotoxins. Renal dose medications. Renal diet. Metabolic acidosis improved after dialysis. Complete MERNA work-up pending. Patient with hydronephrosis on CT scan. Qualifiers: Acute renal failure type: unspecified Qualified Code(s): N17.9 - Acute kidney failure, unspecified (2) Anemia Current Visit: No Status: Acute Patient with iron deficiency. Oral iron ordered. Folate is on the low end of normal. Vitamin b12 is normal. Qualifiers: Anemia type: unspecified type Qualified Code(s): D64.9 - Anemia, unspecified (3) Elderly person living alone Current Visit: No Status: Chronic Per primary team and social work. Consider PT and ambulation. (4) Diabetes mellitus Current Visit: No Status: Chronic Per primary team. Qualifiers: Diabetes mellitus type: type 2 Diabetes mellitus shelter insulin use: with intermediate frame tender use Diabetes mellitus complication status: with kidney complications Diabetes mellitus complication detail: with chronic kidney disease Chronic kidney disease stage: stage 3 (moderate) Qualified Code(s): E11.22 - Type 2 diabetes mellitus with diabetic chronic kidney disease; N18.3 - Chronic kidney disease, stage 3 (moderate); Z79.4 - care home (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 (5) Anxiety Current Visit: No Status: Chronic (6) HTN (hypertension) Current Visit: No Status: Chronic Started Valsartan and titrate as needed. May need to hold for hypotension in the face of sepsis. Qualifiers: Hypertension type: essential hypertension Qualified Code(s): I10 - Essential (primary) hypertension (7) Sepsis Current Visit: Yes Status: Acute Strep pneumo urine antigen positive - on Zosyn. On oral vancomycin for Cdiff. bilateral hydronephrosis on CT - urology following. Patient with worsening sepsis with possibly more than one etiology. Qualifiers: Sepsis type: sepsis due to unspecified organism Qualified Code(s): A41.9 - Sepsis, unspecified organism Subjective Principal diagnosis: hypotension Interval history: Patient seen and evaluated. She reports feeling slightly better after dialyisis on Thursday. She has no complaints. Dialysis was complicated by a kink in her HD line. Objective - Vital Signs Vital signs: Vital Signs Temp Pulse Resp BP Pulse Ox 12/28/17 06:00 98.4 F 99 20 177/71 96 12/28/17 04:57 98.0 F 72 16 143/69 93 12/28/17 00:24 98.3 F 66 14 170/67 98 12/27/17 22:10 99 12/27/17 18:59 97.5 F L 78 15 170/79 99 12/27/17 14:18 98.1 F 73 16 140/64 99 12/27/17 10:18 97.6 F 72 16 163/70 99 Intake and Output 12/27/17 12/28/17 12/28/17 23:59 07:59 15:59 Intake Total 480 / 480 120 / 120 Output Total 700 / 700 300 / 300 Balance -220 / -220 -180 / -180 Intake: Oral 480 / 480 120 / 120 Output: Urine 700 / 700 0 / 0 Catheter 300 / 300 Other: Meal Dinner Percent of Meal Consumed 100% # Bowel Movement Diapers 0 Weight 57.5 kg Blood Glucose* 262 230 Patient Weight 12/28/17 23:59 Weight 57.5 kg - General Appearance General appearance: Present: well-developed, well-nourished, frail Additional Comments: tachycardic - Lab 12/28/17 07:04 12/28/17 07:04 Most recent lab results Calcium 8.5 mg/dL (8.6-10.3) L 12/28/17 07:04 Phosphorus 4.3 mg/dL (2.7-4.5) 12/24/17 09:09 Magnesium 1.7 mg/dL (1.6-2.6) 12/24/17 09:09 Consult Discharge Plan - Plan Referrals: Macario Diallo MD [Primary Care Provider] - Cruzito Alan DO [Partnered Physician] - 01/08/18 10:15 am
[2017-12-28] MEDS ORDERED: cefTRIAXone 1,000 MG in Water for inj. (sterile) 20 ML 10 ML IVP SCH (09:00)
[2017-12-28] MEDS: Insulin LISPRO 300 UNITS/3 ML VIAL SQ SCH ×4 (09:32→21:42)
[2017-12-28] MEDS: Pantoprazole 40 MG VIAL IVP SCH (10:05)
[2017-12-28] MEDS: Valsartan 80 MG TABLET PO SCH (11:25)
[2017-12-28] MEDS: Lactobacillus 1 EACH CAP.SPRINK PO SCH (11:25)
[2017-12-28] MEDS: Vancomycin Oral Soln 125 MG/2.5 ML UDC PO SCH ×4 (11:25→21:42)
[2017-12-28] MEDS: Cholecalciferol (D-3) 1,000 UNIT TABLET PO SCH (11:26)
[2017-12-28] MEDS: Renal Vitamin 1 MG CAPSULE PO SCH (11:26)
[2017-12-28] MEDS ORDERED: Piperacillin/Tazobactam 3.375 GM in 0.9 % Sodium Chloride Mini Bag 100 ML IVPB STA (12:08)
--- NOTE | 2017-12-28 12:26 | Internal Med Progress Note ---
Date of Encounter: 12/28/17 Time of Encounter: 12:24 - Assessment and plan (1) Nausea vomiting and diarrhea Current Visit: No Status: Acute Assessment and plan: - ADAT; Currently clear liquid diet. Still complaints of nausea/vomiting. - Possible etiologies based on her history: uremia, C diff colitis, UTI - Symptomatic treatment for nausea and vomiting - ADAT - Nephrology for management of MERNA on CKD, continue IV antibiotics, continue oral vancomycin, follow-up cultures. (2) Sepsis Current Visit: Yes Status: Acute Assessment and plan: Today patient had 3 SIRS criteria; tachycardia (though she did refuse metoprolol this AM), leukocytosis of 14k, and fever of 100.6 F Likely UTI related, but cannot exclude other etiologies. Might have worsening C diff as she is refusing PO vancomycin. Patient had some improvement on Zosyn but after de-escalating therapy to Rocephin, patient. Given she was recently in a hospital and currently not much activity should rule out pneumonia as well. Repeat blood cultures, urine cultures, repeat imaging for any source of infection. Close monitoring of vital signs Escalate antibiotic therapy back to Zosyn Qualifiers: Sepsis type: sepsis due to unspecified organism Qualified Code(s): A41.9 - Sepsis, unspecified organism (3) Catheter-associated urinary tract infection Current Visit: No Status: Ruled-out Assessment and plan: Frequent history of UTI. UA shows positive for UTI. Patient is a chronic Madden catheter user. Review of prior cultures: - Previous urine culture result reviewed, shows Citrobacter Frenndii, 12/27: Zosyn was discontinued and Rocephin was started again 12/28: She is developing sepsis signs and symptoms and urine in her Madden bag is now noticibly cloudy white. - Obtain urine cultures - Resume Zosyn, DC Rocephin Qualifiers: Indwelling urinary catheter type: indwelling urethral catheter Encounter type: subsequent encounter Qualified Code(s): T83.511D - Infection and inflammatory reaction due to indwelling urethral catheter, subsequent encounter ; N39.0 - Urinary tract infection, site not specified; N39.0 - Urinary tract infection, site not specified (4) Acute kidney injury superimposed on chronic kidney disease Current Visit: No Status: Acute Assessment and plan: Patient has a history of chronic obstructive renal disease. She was placed on chronic Madden catheter and plan for hemodialysis if kidney function does not improve. On admission cr 4.9, is gradually improving. - Continue careful IV fluid hydration - Avoid the nephrotoxic medications - Strict I/Os - Nephrology consulted, recommendations appreciated. No dialysis today (5) Clostridium difficile colitis Current Visit: No Status: Suspected Assessment and plan: Likely cause for n/v, diarrhea, Continue PO vancomycin (6) Hypothermia Current Visit: Yes Status: Acute Assessment and plan: Unsure of cause - TSH, serum cortisol level wnl - resolved Qualifiers: Encounter type: initial encounter Qualified Code(s): T68.XXXA - Hypothermia , initial encounter (7) Bradycardia Current Visit: Yes Status: Acute Assessment and plan: Unsure if this is asymptomatic or symptomatic as patient does complain of epigastric discomfort and nausea, however she describes more reflux-like symptoms and she may have a gastroenteritis. I reviewed telemetry strip from 0900 and it was 28 bpm. A stat ECG done now showed a sinus rhythm with HR 78 bpm, no ST/T wave changes that I can appreciate. Otherwise does have many PVCs. I would like Cardiology to review this as well . Called Cardiology on 12/24 and a review of telemetry [employer] Dr. Zambrano noted that this is not true bradycardia on telemetry. If there remains question, Cardiology will be consulted. HR currently normal Low dose metoprolol was resumed without issue (8) Diabetes mellitus Current Visit: No Status: Chronic Assessment and plan: Continue basal and sliding-scale insulin coverage Goal glucose <180 to promote infection healing. Diabetic diet Lantus was increased to 30 units HS but glucose needs better control during this time of infection. Appetite looks poor today so will not be aggressive increasing dose. Qualifiers: Diabetes mellitus type: type 2 Diabetes mellitus group home insulin use: with group home use Diabetes mellitus complication status: with kidney complications Diabetes mellitus complication detail: with chronic kidney disease Chronic kidney disease stage: stage 3 (moderate) Qualified Code(s): E11.22 - Type 2 diabetes mellitus with diabetic chronic kidney disease; N18.3 - Chronic kidney disease, stage 3 (moderate); Z79.4 - terminal computer 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 (9) Hyponatremia Current Visit: No Status: Acute Assessment and plan: Chronic. Patient is on by mouth sodium chloride pills, will continue Borderline to normal range in past several days. Management per Nephrology (10) HTN (hypertension) Current Visit: No Status: Chronic Assessment and plan: SBP now running 140-160s, metoprolol resumed, will monitor. Was holding initially metoprolol because of suspected severe bradycardia on telemetry, though this turned out not a true bradycardia Qualifiers: Hypertension type: essential hypertension Qualified Code(s): I10 - Essential (primary) hypertension (11) CKD (chronic kidney disease) stage 5, GFR less than 15 ml/min Current Visit: No Status: Acute Assessment and plan: Management as above (12) DVT prophylaxis Current Visit: No Status: Acute Assessment and plan: Heparin subcutaneously - Time Spent With Patient Total time spent is greater than 50% in coordination of care (as documented) at patient's floor/unit and/or counseling patient: - Subjective Interval history: 12/25: Patient had temporary HD cath placed. She was scheduled for dialysis today but cancelled since Patient temperature noted to be low as 94.8 today. 12/26: no hypothermic episodes. Patient feeling a little better in regards to nausea, but she is nervous about dialysis. Denies fevers/chills, abdominal pain , diarrhea. 12/27: appetite improved. Yesterday temp HD cath was unable to work for dialysis. Patient denies fevers/chills, diarrhea, n/v eating now without issue. 12/28: Patient refused medications because she says "i just don't feel good". She developed a fever today 100.6 F and leukocytosis seen on CBC, also tachycardic. - Constitutional Vitals: Temp Pulse Resp BP Pulse Ox 100.6 F H 106 14 117/64 96 12/28/17 10:48 12/28/17 10:48 12/28/17 10:48 12/28/17 10:48 12/28/17 10:48 General appearance: Present: A&O X 3, no acute distress, answers questions appropriately Exam: HEENT: Left tunneled cath, noedema or erythema, no purulent drainage. CVS: RRR Lungs:CTAB Abd: NT/ND Ext: no edema Internal Medicine: Result - Labs CBC & Chem 7: 12/28/17 07:04 12/28/17 07:04 Labs: Short CBC 12/28/17 Range/Units 07:04 WBC 14.9 H D (4.3-11.1) K/mcL Hgb 10.5 L (11.5-15.4) g/dL Hct 31.0 L (35.3-44.9) % Plt Count 321 (140-400) K/mcL Neutrophils # 12.6 H (1.6-8.9) K/mcL BMP 12/28/17 07:04 Sodium 134 L Potassium 4.0 Chloride 106 Carbon Dioxide 17 L BUN 63 H Creatinine 3.26 H Glucose 247 H Calcium 8.5 L - ABG Interpretation ABG results: PT/INR, D-dimer PT 13.7 Seconds (9.4-12.1) H 12/25/17 05:35 Consult Discharge Plan - Plan Referrals: Macario Diallo MD [Primary Care Provider] - Cruzito Alan DO [Partnered Physician] - 01/08/18 10:15 am
[2017-12-28 14:21] LABS: Adenovirus Not Detected (Not Detect); Coronavirus 229E Not Detected (Not Detect); Coronavirus HKU1 Not Detected (Not Detect); Coronavirus NL63 Not Detected (Not Detect); Coronavirus OC43 Not Detected (Not Detect); Human Metapneumovirus Not Detected (Not Detect)
[2017-12-28 14:22] LABS: Bordetella Pertussis Not Detected (Not Detect); Chlamydophila pneumoniae Not Detected (Not Detect); Human Rhinovirus/Enterovirus Not Detected (Not Detect); Influenza A Subtype 2009 H1 Not Detected (Not Detect); Influenza A Untypeable Not Detected (Not Detect); Influenza B Not Detected (Not Detect); Mycoplasma pneumoniae Not Detected (Not Detect); Parainfluenza Virus 1 Not Detected (Not Detect); Parainfluenza Virus 2 Not Detected (Not Detect); Parainfluenza Virus 3 Not Detected (Not Detect); Parainfluenza Virus 4 Not Detected (Not Detect); Respiratory Syncytial Virus Not Detected (Not Detect)
[2017-12-28] MEDS ORDERED: Piperacillin/Tazobactam 3.375 GM in 0.9 % Sodium Chloride Mini Bag 100 ML IVPB SCH (18:00)
[2017-12-28] MEDS ORDERED: Insulin DETEMIR 100 UNIT/ML X5UNITS SQ SCH ×2 (21:00)
--- NOTE | 2017-12-28 21:05 | Urology - Consult Note ---
Date of Encounter: 12/29/17 Time of Encounter: 21:05 - Assessment and Plan (1) Hydronephrosis Current Visit: No Status: Chronic Assessment and plan: I reviewed the ct images. There is bilateral hydronephrosis with significant thickening of the urothelium (bladder, ureters and renal pelvis). I suspect this is a chronic process but recent images show progression. Chronic cath is huge risk factor for urinary tract infections. I agree reflux is very possible but obstruction is also possible. based on her continued illness (fever, MERNA, WBC) I feel she requires bilateral ureteral stents. This will not decrease her infections but may lessen the acute illness and risk for urosepsis. it is also very possible I will be unable to place the ureteral stent s secondary to the thickened bladder wall. at times this distorts the architecture of the bladder and causes difficulty identifying the UOs. if unable to place ureteral stents, will have IR place nephrostomy tubes. Qualifiers: Hydronephrosis type: other Qualified Code(s): N13.39 - Other hydronephrosis Urology CN:HPI Consult date: 12/28/17 Reason for consult Urology: Hydronephrosis History of present illness: pt known to service. known bilateral hydronephrosis - Dr Tavarez's last note suggests that the hydro may be from reflux (not obstruction). she has a chronic indwelling cath and persistant UTis. admitted with acute illness, fever. ct below. CT scan. Moderate to severe bilateral hydronephrosis and hydroureter with diffuse uroepithelial thickening of the ureters and collecting system concerning for postinfectious origin. The degree of fat stranding on the left has progressed. Past Med Surg Social Fam HX - Past Medical History Medical history: diabetes, hyperlipidemia, hypertension, renal disease, other Psychiatric history: anxiety - Past Surgical History Surgical History: appendectomy, cholecystectomy, hysterectomy - Social History Smoking Status: Never smoker Smokeless Tobacco Status: No Alcohol use: none Drug use: none - Family History Mother Living Status: Hx Family Cardiac Disorders: Yes Father Living Status: Hx Family Cardiac Disorders: Yes Medications and Allergies Metoprolol [Lopressor] 12.5 mg PO BID 03/01/16 [History] Aspirin Enteric Coated [Aspirin EC] 81 mg PO DAILY 08/04/17 [History] Oxygen 2 l NS AD 08/04/17 [History] Gabapentin [Neurontin] 100 mg PO BID 09/17/17 [History] Ferrous Sulfate 325 mg PO BID 10/28/17 [History] Ondansetron HCl [Zofran] 4 mg PO TID PRN 10/28/17 [History] Pravastatin Sodium [Pravachol] 10 mg PO HS 10/28/17 [History] Cholecalciferol (Vitamin D3) [Vitamin D3] 1,000 unit PO DAILY 11/16/17 [History] Insulin Glargine,Hum.rec.anlog [Basaglar Kwikpen U-100] 40 unit SQ HS 11/16/17 [ History] Insulin ASPART [NovoLOG] 20 unit SQ TIDWM 12/22/17 [History] Sodium Chloride 1 gm PO BID 12/22/17 [History] 3 Allergy/AdvReac Type Severity Reaction Status Date / Time acetaminophen [From Tylenol] Allergy See Verified 12/22/17 19:03 Comments Influenza Virus Vaccines Allergy See Verified 12/22/17 19:03 Comments Review of Systems - Constitutional chills, fatigue, fever(s), malaise - EENT Nose, mouth and throat: no dizziness - Cardiovascular no chest pain - Respiratory no cough - Gastrointestinal abdominal pain, nausea - Genitourinary Genitourinary: dysuria - Musculoskeletal back pain - Integumentary no erythema - Neurological no confusion - Psychiatric no anxiety - Hematologic/Lymphatic no easy bleeding Exam Initial Vital Signs Temp Pulse Resp BP Pulse Ox 95.8 F L 92 16 109/69 95 12/22/17 15:41 12/22/17 15:41 12/22/17 15:41 12/22/17 15:41 12/22/17 15:41 - General physical appearance Present: no distress, chronically ill - Eyes Present: PERRL - ENT Present: normal nares - Neck Present: no masses, no lymphadenopathy - Respiratory Present: normal respiratory effort - Cardiovascular Cardiovascular exam IM: RRR - Abdomen Abdomen: Present: soft, suprapubic tenderness - Integumentary Present: no rash - Neurologic Present: normal coordination. Absent: disoriented, confused Urology Results - Labs 12/28/17 07:04 12/28/17 07:04 Abnormal lab results WBC 14.9 K/mcL (4.3-11.1) H D 12/28/17 07:04 RBC 3.59 M/mcL (3.82-4.97) L 12/28/17 07:04 Hgb 10.5 g/dL (11.5-15.4) L 12/28/17 07:04 Hct 31.0 % (35.3-44.9) L 12/28/17 07:04 Neutrophils # 12.6 K/mcL (1.6-8.9) H 12/28/17 07:04 Nucleated RBCs/100 WBC 0.2 /100 WBC (0) H 12/25/17 05:35 PT 13.7 Seconds (9.4-12.1) H 12/25/17 05:35 Sodium 134 mEq/L (136-145) L 12/28/17 07:04 Carbon Dioxide 17 mEq/L (23-29) L 12/28/17 07:04 BUN 63 mg/dL (8-23) H 12/28/17 07:04 Creatinine 3.26 mg/dL (0.60-1.20) H 12/28/17 07:04 Est GFR ( Amer) 17 (> 60) L 12/28/17 07:04 Est GFR (Non-Af Amer) 14 (> 60) L 12/28/17 07:04 Glucose 247 mg/dL (70-105) H 12/28/17 07:04 POC Glucose 295 mg/dL (70-99) H 12/28/17 19:56 Calculated Osmolality 304 (280-300) H 12/28/17 07:04 Calcium 8.5 mg/dL (8.6-10.3) L 12/28/17 07:04 Iron 21 mcg/dL (50-170) L 12/28/17 07:04 % Saturation 11 % (15-50) L 12/28/17 07:04 Transferrin 137 mg/dL (203-362) L 12/28/17 07:04 Ferritin 686 ng/ml (10-120) H 12/28/17 07:04 Total Bilirubin 0.2 mg/dL (0.3-1.0) L 12/23/17 04:48 AST 5 Units/L (13-39) L 12/23/17 04:48 ALT 6 Units/L (7-52) L 12/23/17 04:48 Albumin 2.8 g/dL (3.5-5.7) L 12/23/17 04:48 Globulin 5.4 g/dL (2.4-3.5) H 12/23/17 04:48 Albumin/Globulin Ratio 0.5 (1.1-2.2) L 12/23/17 04:48 Procalcitonin 0.21 ng/mL (<=0.10) H 12/25/17 16:00 Urine Clarity Turbid (Clear) A 12/22/17 16:35 Urine Protein >=300 mg/dL (Neg-Trace) H 12/22/17 16:35 Urine Blood Large (Negative) H 12/22/17 16:35 Ur Leukocyte Esterase Large (Negative) H 12/22/17 16:35 Urine Microscopic WBC TNTC per hpf (0-3) H 12/22/17 16:35 Ur Culture Indicated? YES (NO) A 12/22/17 16:35 Stl C. diff Tox A/B PCR See reflex test (Not detect) A 12/25/17 19:45 Diabetes panel 12/28/17 Range/Units 07:04 Sodium 134 L (136-145) mEq/L Potassium 4.0 (3.5-5.1) mEq/L Chloride 106 (98-107) mEq/L Carbon Dioxide 17 L (23-29) mEq/L BUN 63 H (8-23) mg/dL Creatinine 3.26 H (0.60-1.20) mg/dL Glucose 247 H (70-105) mg/dL Calcium 8.5 L (8.6-10.3) mg/dL Calcium panel 12/28/17 Range/Units 07:04 Calcium 8.5 L (8.6-10.3) mg/dL Pituitary panel 12/28/17 Range/Units 07:04 Sodium 134 L (136-145) mEq/L Potassium 4.0 (3.5-5.1) mEq/L Chloride 106 (98-107) mEq/L Carbon Dioxide 17 L (23-29) mEq/L BUN 63 H (8-23) mg/dL Creatinine 3.26 H (0.60-1.20) mg/dL Glucose 247 H (70-105) mg/dL Calcium 8.5 L (8.6-10.3) mg/dL Adrenal panel 12/28/17 Range/Units 07:04 Sodium 134 L (136-145) mEq/L Potassium 4.0 (3.5-5.1) mEq/L Chloride 106 (98-107) mEq/L Carbon Dioxide 17 L (23-29) mEq/L BUN 63 H (8-23) mg/dL Creatinine 3.26 H (0.60-1.20) mg/dL Glucose 247 H (70-105) mg/dL Calcium 8.5 L (8.6-10.3) mg/dL All other labs normal. Consult Discharge Plan - Plan Referrals: Macario Diallo MD [Primary Care Provider] - Cruzito Alan DO [Partnered Physician] - 01/08/18 10:15 am
[2017-12-28] MEDS: Piperacillin/Tazobactam 3.375 GM in 0.9 % Sodium Chloride Mini Bag 100 ML IVPB SCH (21:42)
[2017-12-29] MEDS: *HR* Heparin 5,000 UNIT/ML VIAL SQ SCH ×2 (05:31→18:10)
[2017-12-29 06:29] LABS: Mycoplasma pneumoniae IgG 0.15 U/L (<=0.09)
[2017-12-29 07:24] LABS: Calcium 8.5 mg/dL (8.6-10.3); Potassium 3.9 mEq/L (3.5-5.1)
[2017-12-29 07:47] LABS: Basophils % 0.1 %; Eosinophils # 0.1 K/mcL (0.0-0.6); Eosinophils % 0.6 %; Hematocrit 29.6 % (35.3-44.9); Hemoglobin 9.8 g/dL (11.5-15.4); Immature Granulocytes % 0.6 % (0-4); Lymphocytes # 1.4 K/mcL (0.6-4.6); Mean Corpuscular HGB Conc 33.1 g/dL (31.6-35.5); Mean Corpuscular Hemoglobin 28.7 pg (28.0-33.3); Mean Corpuscular Volume 86.5 fL (83.0-100.0); Mean Platelet Volume 9.7 fL (9.4-12.4); Monocytes # 0.8 K/mcL (0.0-1.3); Monocytes % 5.9 %; Neutrophils # 11.6 K/mcL (1.6-8.9); Platelet Count 232 K/mcL (140-400); Red Blood Count 3.42 M/mcL (3.82-4.97); Red Cell Distribution Width 14.5 % (11.5-14.5); Segmented Neutrophils % 82.8 %
[2017-12-29] MEDS: Piperacillin/Tazobactam 3.375 GM in 0.9 % Sodium Chloride Mini Bag 100 ML IVPB SCH ×2 (08:43→20:57)
[2017-12-29] MEDS: Pantoprazole 40 MG VIAL IVP SCH (08:43)
[2017-12-29] MEDS: Insulin LISPRO 300 UNITS/3 ML VIAL SQ SCH ×5 (08:44→21:12)
[2017-12-29] MEDS ORDERED: Folic Acid 1 MG TABLET PO SCH (09:00)
--- NOTE | 2017-12-29 10:46 | Anesthesia Evaluation PreOp ---
Date of Encounter: 12/29/17 Time of Encounter: 10:43 - Past History Planned Operation: Cystoscopy, Bilateral Stent Placement Cardiac History: HTN, Hyperlipidemia Pulmonary History: Denies Any Significant HX MIDWIFE PRACTITIONER History: Denies Any Significant HX Other Medical History: Renal (Khanh. Hydronephrosis), Diabetes Type II Anesthesia History: No Prior Anesthetic Complications, Past Anesthesia ( appendectomy, cholecystectomy, hysterectomy) : No Alcohol Use: none Drug use: none Medications and Allergies Metoprolol [Lopressor] 12.5 mg PO BID 03/01/16 [History] Aspirin Enteric Coated [Aspirin EC] 81 mg PO DAILY 08/04/17 [History] Oxygen 2 l NS AD 08/04/17 [History] Gabapentin [Neurontin] 100 mg PO BID 09/17/17 [History] Ferrous Sulfate 325 mg PO BID 10/28/17 [History] Ondansetron HCl [Zofran] 4 mg PO TID PRN 10/28/17 [History] Pravastatin Sodium [Pravachol] 10 mg PO HS 10/28/17 [History] Cholecalciferol (Vitamin D3) [Vitamin D3] 1,000 unit PO DAILY 11/16/17 [History] Insulin Glargine,Hum.rec.anlog [Basaglar Kwikpen U-100] 40 unit SQ HS 11/16/17 [ History] Insulin ASPART [NovoLOG] 20 unit SQ TIDWM 12/22/17 [History] Sodium Chloride 1 gm PO BID 12/22/17 [History] 3 Allergy/AdvReac Type Severity Reaction Status Date / Time acetaminophen [From Tylenol] Allergy See Verified 12/22/17 19:03 Comments Influenza Virus Vaccines Allergy See Verified 12/22/17 19:03 Comments - Meds/Allergy Pre-op Review Medications Reviewed: Yes Allergies Reviewed: Yes Beta Blockers on Current Med List: Yes (not given because Pt. refuses) Anesthesia Results - Labs 12/29/17 06:19 12/29/17 06:19 Echocardiogram Name: Lisa Lacy Date of Study: 12/24/2017 EV/EV echocardiogram Impressions: LVEF 55%. Normal LV chamber size and function. Indeterminate diastolic function. Normal right ventricular structure and function. Mild concentric left ventricular hypertrophy. No significant valvular dysfunction. - Imaging EKG: report reviewed (SINUS RHYTHM WITH FREQUENT VENTRICULAR PREMATURE COMPLEXES IN A BIGEMINAL PATTERN) Anesthesia Exam Vital Signs/O2 Sat, Most Current Temp Pulse Resp BP Pulse Ox 97.3 F L 73 19 127/66 100 12/29/17 08:11 12/29/17 08:11 12/29/17 08:11 12/29/17 08:11 12/29/17 08:11 NPO (# of Hours): > 8 hrs Pain Scale: 0 Pain Scale Used: Numeric (1 - 10) - HEENT Pupil (Motor): Pupils equal, EOMI Mallampati: II Teeth: Edentulous Oral Opening: Greater than 3 - MIDWIFE PRACTITIONER LOC: Oriented MIDWIFE PRACTITIONER Motor: Normal RUE, Normal LUE, Normal RLE, Normal LLE, Normal Face MIDWIFE PRACTITIONER Sensory: Normal: RUE, LUE, RLE, LLE, Face - Cardiac Rhythm: Regular Murmur: None JVD: No Carotid Bruit: No - Pulmonary Breath Sounds: bilateral Clear Respiratory Effort: Symmetrical Anesthesia Assess/Plan ASA Score: 3 Modified Lety Scale for Level of Consciousness: Cooperative, oriented, and tranquil Anesthetic Plan: General Autologous Blood: Yes Monitoring Plan: Standard Monitors Recovery Plan: PACU
--- NOTE | 2017-12-29 11:08 | Nephrology Progress Note ---
Date of Encounter: 12/29/17 Time of Encounter: 11:04 - Assessment and Plan (1) Acute kidney injury superimposed on chronic kidney disease Current Visit: No Status: Acute Had temporary line placed last week, unfortunately it is not functioning. IR consult placed for new temporary line. Will continue process to get Fistula in place for hemodialysis in the future. Continue to avoid nephrotoxins and renal dose all medications. (2) PNA (pneumonia) Current Visit: Yes Status: Acute Per primary team. Qualifiers: Pneumonia type: due to unspecified organism Laterality: right Lung location: upper lobe of lung Qualified Code(s): J18.1 - Lobar pneumonia, unspecified organism (3) UTI (urinary tract infection) Current Visit: Yes Status: Acute Per primary team. Qualifiers: Urinary tract infection type: site unspecified Hematuria presence: without hematuria Qualified Code(s): N39.0 - Urinary tract infection, site not specified (4) Generalized weakness Current Visit: Yes Status: Acute Per primary team. Subjective Principal diagnosis: hypotension Interval history: Pt seen and examined, denies CP/SOB. Is going to OR for kidney stone removal. Objective - Vital Signs Vital signs: Vital Signs Temp Pulse Resp BP Pulse Ox 12/29/17 08:11 97.3 F L 73 19 127/66 100 12/29/17 04:36 97.7 F 63 14 120/64 99 12/28/17 22:02 97 12/28/17 18:58 99.5 F 88 15 127/68 97 12/28/17 16:05 99.6 F 102 16 135/68 96 12/28/17 14:41 100.2 F H 102 16 118/62 98 12/28/17 13:48 100.2 F H 102 16 119/67 96 12/28/17 13:15 100.9 F H 112 18 138/64 95 Intake and Output 12/28/17 12/29/17 12/29/17 23:59 07:59 15:59 Intake Total 120 / 120 100 / 100 0 / 0 Output Total 300 / 300 0 / 0 Balance 120 / 120 -200 / -200 0 / 0 Intake: IV Fluids 100 / 100 Zosyn 3.375 GM In 0.9 % Sodium 100 / 100 Chloride (Mini-Bag +) 100 ML @ 25 mls/hr IVPB Q12H [facility] Rx#: [id number] Oral 120 / 120 0 / 0 0 / 0 Output: Catheter 300 / 300 0 / 0 Other: Meal Dinner NPO Percent of Meal Consumed 0% Stool Size Small Stool Consistency loose Stool Characteristics Normal for Patient Stool Color Brown # Bowel Movement Diapers 1 1 Weight 53 kg Blood Glucose* 295 172 Patient Weight 12/29/17 23:59 Weight 53 kg - General Appearance General appearance: Present: chronically ill, frail EENT: Present: ATNC, hearing intact, vision intact Neck: Present: supple Respiratory: Present: clear Cardiology: Present: no edema, normal S1, normal S2 Dialysis Vascular Access: Venous Catheter (Left neck, DRSG C/D/I.) Gastrointestinal: Present: normoactive bowel sounds, no tenderness Integumentary: Present: no rash, warm and dry Neurologic: Present: alert and oriented x3 Psychiatric: Present: mood/affect appropriate, cooperative - Lab 12/29/17 06:19 12/29/17 06:19 Most recent lab results Calcium 8.5 mg/dL (8.6-10.3) L 12/29/17 06:19 Phosphorus 4.3 mg/dL (2.7-4.5) 12/24/17 09:09 Magnesium 1.7 mg/dL (1.6-2.6) 12/24/17 09:09 Consult Discharge Plan - Plan Referrals: Macario Diallo MD [Primary Care Provider] - Cruzito Alan DO [Partnered Physician] - 01/08/18 10:15 am
[2017-12-29] MEDS ORDERED: Lidocaine -MPF 2% 2 ML VIAL ONE (12:12)
[2017-12-29] MEDS ORDERED: *HR* Propofol 200 MG/20 ML VIAL IVP ONE (12:12)
[2017-12-29] MEDS ORDERED: *HR* Succinylcholine 200 MG/10 ML VIAL IVP ONE (12:12)
[2017-12-29] MEDS ORDERED: *HR* FentaNYL (PF) 100 MCG/2 ML VIAL ONE (12:12)
[2017-12-29] MEDS ORDERED: Isovue-300 50 ML VIAL IVP ONE (12:34)
[2017-12-29] MEDS ORDERED: Ondansetron 4 MG/2 ML VIAL ONE (12:43)
[2017-12-29] MEDS ORDERED: EPHEDrine 50 MG/ML VIAL ONE (12:47)
[2017-12-29] MEDS ORDERED: *HR* HYDROmorphone (PF) 1 MG/ML SYRINGE IVP PRN (12:56)
[2017-12-29] MEDS ORDERED: Ondansetron 4 MG/2 ML VIAL IVP PRN ×2 (12:56→14:08)
[2017-12-29] MEDS ORDERED: *HR* Labetalol 20 MG/4 ML SYRINGE IVP PRN (12:56)
--- NOTE | 2017-12-29 13:27 | Operative Note ---
Date of procedure: 12/29/17 Pre-op diagnosis: Bilateral hydronephrosis. Significant renal insufficiency. UTI. Post-op diagnosis: same Procedure: Cystoscopy. Bilateral retrograde pyelogram. Bilateral ureteral stent placement. Anesthesia: GETA Surgeon: Darien Gutierrez Was there an biology laboratory assistant present: No Estimated blood loss (cc): 0 Specimen: None Condition: stable Disposition: PACU Procedure in Detail: . PROCEDURE IN DETAIL: Patient was taken back to the operating room, positioned supine on the operating table. Anesthesia was applied without complication. They were moved into dorsal lithotomy. Careful attention was maintained to cushion all pressure points for patient's safety. They were prepped and draped in sterile fashion. Time-out was performed with the proper patient and procedure. A 21-Ivorian rigid cystoscope was inserted into the bladder without difficulty. Systematic examination of bladder revealed severe cystitis and significant trabeculations. I was able to identify both ureteral orifices. Retrograde pyelograms were performed by cannulating each ureteral orifice with a 5-Ivorian ureteral catheter. There was some hydroureter and hydronephrosis but not as significant as the CT scan. I placed a zip wire through the 5- Ivorian ureteral catheter and placed bilateral 6 x 26 ureteral stents. They appeared in good position on fluoroscopy. Madden catheter was replaced. Patient was transported back to her floor bed. We will monitor if her renal function improves over the next few days.
[2017-12-29] MEDS ORDERED: traMADol 50 MG TABLET PO PRN (14:08)
[2017-12-29] MEDS ORDERED: Dextrose Gel 15 GM/37.5 ML TUBE PO PRN ×2 (14:08)
[2017-12-29] MEDS ORDERED: D5% in Water 1,000 ML IVC PRN (14:08)
[2017-12-29] MEDS ORDERED: *HR* Dextrose 50 % in Water (Syg) 50 ML SYRINGE IVP PRN (14:08)
[2017-12-29] MEDS ORDERED: 0.9 % Sodium Chloride 1,000 ML PRIME SCH (14:08)
[2017-12-29] MEDS ORDERED: Naloxone 0.4 MG/ML INJ IVP PRN (14:08)
[2017-12-29] MEDS: Vancomycin Oral Soln 125 MG/2.5 ML UDC PO SCH ×3 (14:31→20:56)
[2017-12-29] MEDS: Lactobacillus 1 EACH CAP.SPRINK PO SCH (14:31)
[2017-12-29] MEDS: Valsartan 80 MG TABLET PO SCH (14:31)
[2017-12-29] MEDS: Renal Vitamin 1 MG CAPSULE PO SCH (14:32)
[2017-12-29] MEDS: Cholecalciferol (D-3) 1,000 UNIT TABLET PO SCH (14:32)
--- NOTE | 2017-12-29 15:40 | Internal Med Progress Note ---
Date of Encounter: 12/29/17 Time of Encounter: 10:00 - Assessment and plan (1) Acute kidney injury superimposed on chronic kidney disease Current Visit: No Status: Acute Assessment and plan: Patient has a history of chronic obstructive renal disease. She was placed on chronic Madden catheter and plan for hemodialysis if kidney function does not improve. On admission cr 4.9, is gradually improving. - Continue careful IV fluid hydration - Avoid the nephrotoxic medications - Strict I/Os - Nephrology consulted, recommendations appreciated. No dialysis today 12/29: Continue to hold nephrotoxins. Urology placed bilateral ureteral stents today with hopes that this may improve her renal function. Nephrology is following. Plans for hemodialysis catheter to be placed today or tomorrow. (2) Diabetes mellitus Current Visit: No Status: Chronic Assessment and plan: Continue basal and sliding-scale insulin coverage Goal glucose <180 to promote infection healing. Diabetic diet Lantus was increased to 30 units HS but glucose needs better control during this time of infection. Appetite looks poor today so will not be aggressive increasing dose. 12/29: No changes today pending procedures. Likely increase insulin in the next day or 2. 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 Patient is on by mouth sodium chloride pills, will continue Borderline to normal range in past several days. Management per Nephrology 12/29: Fairly stable. Monitor (4) HTN (hypertension) Current Visit: No Status: Chronic Assessment and plan: SBP now running 140-160s, metoprolol resumed, will monitor. Was holding initially metoprolol because of suspected severe bradycardia on telemetry, though this turned out not a true bradycardia Qualifiers: Hypertension type: essential hypertension Qualified Code(s): I10 - Essential (primary) hypertension (5) DVT prophylaxis Current Visit: No Status: Acute Assessment and plan: Heparin subcutaneously (6) Clostridium difficile colitis Current Visit: No Status: Suspected Assessment and plan: Likely cause for n/v, diarrhea, Continue PO vancomycin 12/29: Day #3 and enteric vancomycin. Anticipate a 14 day course. No diarrhea presently. (7) Nausea vomiting and diarrhea Current Visit: No Status: Acute Assessment and plan: - ADAT; Currently clear liquid diet. Still complaints of nausea/vomiting. - Possible etiologies based on her history: uremia, C diff colitis, UTI - Symptomatic treatment for nausea and vomiting - ADAT - Nephrology for management of MERNA on CKD, continue IV antibiotics, continue oral vancomycin, follow-up cultures. (8) Catheter-associated urinary tract infection Current Visit: No Status: Ruled-out Assessment and plan: Frequent history of UTI. UA shows positive for UTI. Patient is a chronic Madden catheter user. Review of prior cultures: - Previous urine culture result reviewed, shows Citrobacter Frenndii, 12/27: Zosyn was discontinued and Rocephin was started again 12/28: She is developing sepsis signs and symptoms and urine in her Madden bag is now noticibly cloudy white. - Obtain urine cultures - Resume Zosyn, DC Rocephin 12/29: A #8 antibiotics. Currently Zosyn. Cultur. data negative. Monitor Qualifiers: Indwelling urinary catheter type: indwelling urethral catheter Encounter type: subsequent encounter Qualified Code(s): T83.511D - Infection and inflammatory reaction due to indwelling urethral catheter, subsequent encounter ; N39.0 - Urinary tract infection, site not specified; N39.0 - Urinary tract infection, site not specified (9) CKD (chronic kidney disease) stage 5, GFR less than 15 ml/min Current Visit: No Status: Acute (10) Bradycardia Current Visit: Yes Status: Acute (11) Hypothermia Current Visit: Yes Status: Acute Qualifiers: Encounter type: initial encounter Qualified Code(s): T68.XXXA - Hypothermia , initial encounter (12) Sepsis Current Visit: Yes Status: Acute Assessment and plan: Today patient had 3 SIRS criteria; tachycardia (though she did refuse metoprolol this AM), leukocytosis of 14k, and fever of 100.6 F Likely UTI related, but cannot exclude other etiologies. Might have worsening C diff as she is refusing PO vancomycin. Patient had some improvement on Zosyn but after de-escalating therapy to Rocephin, patient. Given she was recently in a hospital and currently not much activity should rule out pneumonia as well. Repeat blood cultures, urine cultures, repeat imaging for any source of infection. Close monitoring of vital signs Escalate antibiotic therapy back to Zosyn 12/29: As above. Vitals are stable. Afebrile today. Monitor. Qualifiers: Sepsis type: sepsis due to unspecified organism Qualified Code(s): A41.9 - Sepsis, unspecified organism - Time Spent With Patient Total time spent is greater than 50% in coordination of care (as documented) at patient's floor/unit and/or counseling patient: Greater than 35 minutes - Subjective Interval history: Ms. Lacy is a 72 year old female present to ER for nausea and vomiting for 1 day. Past medical history is significant for diabetes, CKD plan for hemodialysis, chronic Madden catheter use for last 3 months. Patient has chronic kidney disease on chronic Madden catheter in last 3 months. Patient developed nausea and vomiting since 1:00 this morning. The vomiting were clear fluid, no blood in it. Patient has mild abdominal pain. Patient denies a fever, cough, shortness of breath, or chest pain. In the emergency room, abdominal CT has been done, report shows stable chronic founding, no significant acute change. UA shows UTI. Patient was given antibiotics and admitted for further management. 12/29: Today patient went for bilateral ureteral stents. Interventional radiology was consulted for new vascular access for hemodialysis. She is still having some nausea but is tolerating clears. Her creatinine has not changed her , hopefully will improve after urethral stents. Patient's blood cell count is increasing and she was changed back to Zosyn. All culture data negative thus far. Patient is currently day 8 of IV antibiotics, renally dosed. No fevers or chills. No chest pain or shortness of breath. Denies any diarrhea. Denies abdominal pain. - Constitutional Vitals: Temp Pulse Resp BP Pulse Ox 97.8 F 81 16 144/67 100 12/29/17 13:38 12/29/17 13:38 12/29/17 13:38 12/29/17 13:38 12/29/17 13:38 General appearance: Present: A&O X 3, answers questions appropriately Exam: Ill-appearing, weak - Head Head exam: Present: atraumatic, normocephalic - Eye Eye exam: Present: PERRL, conjuntiva pink, sclera anicteric Pupils: Present: PERRL - Neck Neck exam general surgery: Present: supple, trachea midline. Absent: lymphadenopathy Additional comments: Left IJ catheter in place, no inflammation - Respiratory Respiratory exam: Present: decreased breath sounds - Cardiovascular Cardiovascular exam: Present: RRR, +S1, +S2. Absent: diastolic murmur, gallop, rubs, systolic murmur - GI/Abdominal GI/Abdominal exam: Present: normal bowel sounds, soft, no peritoneal signs. Absent: distended, tenderness - Extremities Exam Extremities exam: Present: pedal edema Internal Medicine: Result - Labs CBC & Chem 7: 12/29/17 06:19 12/29/17 06:19 Labs: Short CBC 12/29/17 Range/Units 06:19 WBC 14.0 H (4.3-11.1) K/mcL Hgb 9.8 L (11.5-15.4) g/dL Hct 29.6 L (35.3-44.9) % Plt Count 232 (140-400) K/mcL Neutrophils # 11.6 H (1.6-8.9) K/mcL BMP 12/29/17 06:19 Sodium 135 L Potassium 3.9 Chloride 107 Carbon Dioxide 18 L BUN 73 H Creatinine 4.16 H Glucose 217 H Calcium 8.5 L - ABG Interpretation ABG results: PT/INR, D-dimer PT 13.7 Seconds (9.4-12.1) H 12/25/17 05:35 - Impressions Impressions Retrograde Pyelogram 12/29/17 00:00 IMPRESSION: Intraprocedural fluoroscopic spot images as above demonstrating bilateral ureteral stent placement. See separate procedure report for more information. There appears to be some irregular filling defect in the distal left ureter. Findings may be artifactual related to hematoma/other filling defect. Clinical correlation recommended to exclude malignancy. D/ / Catrina Link MD / Catrina Link MD Interpreting Provider: Catrina Link MD Consult Discharge Plan - Plan Referrals: Macario Diallo MD [Primary Care Provider] - Cruzito Alan DO [Partnered Physician] - 01/08/18 10:15 am
[2017-12-29] MEDS ORDERED: Insulin DETEMIR 100 UNIT/ML X5UNITS SQ SCH (21:00)
[2017-12-29] MEDS: Insulin DETEMIR 100 UNIT/ML X5UNITS SQ SCH (21:12)
[2017-12-30] MEDS: *HR* Heparin 5,000 UNIT/ML VIAL SQ SCH ×2 (05:08→17:19)
--- NOTE | 2017-12-30 07:09 | Urology Progress Note ---
Date of Encounter: 12/30/17 Time of Encounter: 07:07 - Assessment and Plan (1) Hydronephrosis Current Visit: No Status: Chronic Assessment and plan: s/p Bilateral ureteral stent placement. labs pending. hopefully will see improvement in GFR and WBC Qualifiers: Hydronephrosis type: other Qualified Code(s): N13.39 - Other hydronephrosis Progress Note Narrative: no acute events overnight. no fever. Objective Initial Vital Signs Temp Pulse Resp BP Pulse Ox 95.8 F L 92 16 109/69 95 12/22/17 15:41 12/22/17 15:41 12/22/17 15:41 12/22/17 15:41 12/22/17 15:41 - Labs 12/29/17 06:19 12/29/17 06:19 Diabetes panel 12/29/17 Range/Units 06:19 Sodium 135 L (136-145) mEq/L Potassium 3.9 (3.5-5.1) mEq/L Chloride 107 (98-107) mEq/L Carbon Dioxide 18 L (23-29) mEq/L BUN 73 H (8-23) mg/dL Creatinine 4.16 H (0.60-1.20) mg/dL Glucose 217 H (70-105) mg/dL Calcium 8.5 L (8.6-10.3) mg/dL Calcium panel 12/29/17 Range/Units 06:19 Calcium 8.5 L (8.6-10.3) mg/dL Pituitary panel 12/29/17 Range/Units 06:19 Sodium 135 L (136-145) mEq/L Potassium 3.9 (3.5-5.1) mEq/L Chloride 107 (98-107) mEq/L Carbon Dioxide 18 L (23-29) mEq/L BUN 73 H (8-23) mg/dL Creatinine 4.16 H (0.60-1.20) mg/dL Glucose 217 H (70-105) mg/dL Calcium 8.5 L (8.6-10.3) mg/dL Adrenal panel 12/29/17 Range/Units 06:19 Sodium 135 L (136-145) mEq/L Potassium 3.9 (3.5-5.1) mEq/L Chloride 107 (98-107) mEq/L Carbon Dioxide 18 L (23-29) mEq/L BUN 73 H (8-23) mg/dL Creatinine 4.16 H (0.60-1.20) mg/dL Glucose 217 H (70-105) mg/dL Calcium 8.5 L (8.6-10.3) mg/dL - VTE Documentation of Mechanical Device: Intermittent pneumatic compression device Consult Discharge Plan - Plan Referrals: Macario Diallo MD [Primary Care Provider] - Cruzito Alan DO [Partnered Physician] - 01/08/18 10:15 am
[2017-12-30] MEDS: Folic Acid 1 MG TABLET PO SCH (08:17)
[2017-12-30] MEDS: Aspirin Enteric Coated 81 MG Tablet PO SCH (08:17)
[2017-12-30] MEDS: Renal Vitamin 1 MG CAPSULE PO SCH (08:17)
[2017-12-30] MEDS: Cholecalciferol (D-3) 1,000 UNIT TABLET PO SCH (08:18)
[2017-12-30] MEDS: Lactobacillus 1 EACH CAP.SPRINK PO SCH (08:19)
[2017-12-30] MEDS: Vancomycin Oral Soln 125 MG/2.5 ML UDC PO SCH ×4 (08:19→21:02)
[2017-12-30] MEDS: Insulin LISPRO 300 UNITS/3 ML VIAL SQ SCH ×7 (08:20→21:16)
[2017-12-30] MEDS: Piperacillin/Tazobactam 3.375 GM in 0.9 % Sodium Chloride Mini Bag 100 ML IVPB SCH ×2 (08:29→21:08)
[2017-12-30 08:30] LABS: Hematocrit 27.2 % (35.3-44.9); Hemoglobin 8.9 g/dL (11.5-15.4); Mean Corpuscular HGB Conc 32.7 g/dL (31.6-35.5); Mean Corpuscular Hemoglobin 28.1 pg (28.0-33.3); Mean Corpuscular Volume 85.8 fL (83.0-100.0); Mean Platelet Volume 9.7 fL (9.4-12.4); Platelet Count 208 K/mcL (140-400); Red Blood Count 3.17 M/mcL (3.82-4.97); Red Cell Distribution Width 14.6 % (11.5-14.5)
[2017-12-30 08:34] LABS: Calcium 8.5 mg/dL (8.6-10.3); Potassium 4.3 mEq/L (3.5-5.1)
[2017-12-30] MEDS ORDERED: Pantoprazole 40 MG VIAL IVP SCH (09:00)
[2017-12-30] MEDS ORDERED: Valsartan 80 MG TABLET PO SCH (09:00)
--- NOTE | 2017-12-30 09:26 | Nephrology Progress Note ---
Date of Encounter: 12/30/17 Time of Encounter: 09:23 - Assessment and Plan (1) Acute kidney injury superimposed on chronic kidney disease Current Visit: No Status: Acute Scr 4.19 up from 4.16. GFR remained unchaged at 10. Has had many recent admissions for MERNA/Progression of CKD that have improved slightly with IV hydration, unsure if renal recovery will continue with so many insults to the kidneys. Did have bilateral ureteral stents placed yesterday for bilateral hydronephrosis , I am hopeful this will help with GFR. Temp line placed last week is not functioning, she refuses to have line changed today and might be in the "mood" for in later in the week. Continue to avoid nephrotoxins and renal dose all medications. (2) PNA (pneumonia) Current Visit: Yes Status: Acute Per primary team. Qualifiers: Pneumonia type: due to unspecified organism Laterality: right Lung location: upper lobe of lung Qualified Code(s): J18.1 - Lobar pneumonia, unspecified organism (3) UTI (urinary tract infection) Current Visit: Yes Status: Acute Per primary team. Qualifiers: Urinary tract infection type: site unspecified Hematuria presence: without hematuria Qualified Code(s): N39.0 - Urinary tract infection, site not specified (4) Generalized weakness Current Visit: Yes Status: Acute Per primary team. Subjective Principal diagnosis: hypotension Interval history: Pt seen and examined, denies CP/SOB. Is up eating breakfast in bed. Objective - Vital Signs Vital signs: Vital Signs Temp Pulse Resp BP Pulse Ox 12/30/17 06:45 97.6 F 76 16 152/70 98 12/30/17 04:54 97.4 F L 70 15 159/70 98 12/30/17 00:10 97.6 F 74 16 144/68 98 12/29/17 20:56 98 12/29/17 20:37 97.3 F L 81 16 126/73 98 12/29/17 16:55 97.9 F 77 15 128/72 100 12/29/17 15:55 98.0 F 76 15 128/61 99 12/29/17 14:55 97.8 F 77 15 133/73 100 12/29/17 14:25 97.6 F 79 15 134/74 100 12/29/17 13:55 97.4 F L 80 16 150/74 98 12/29/17 13:38 97.8 F 81 16 144/67 100 12/29/17 13:28 85 16 137/68 100 12/29/17 13:18 80 16 137/66 100 12/29/17 13:08 98.1 F 82 16 130/62 100 Intake and Output 12/29/17 12/30/17 12/30/17 23:59 07:59 15:59 Intake Total 120 / 120 220 / 220 Output Total 700 / 700 Balance 120 / 120 -480 / -480 Intake: IV Fluids 100 / 100 Zosyn 3.375 GM In 0.9 % Sodium 100 / 100 Chloride (Mini-Bag +) 100 ML @ 25 mls/hr IVPB Q12H [facility] Rx#: [id number] Oral 120 / 120 120 / 120 Output: Catheter 700 / 700 Other: Stool Size Smear Stool Color Green Weight 53.7 kg Blood Glucose* 227 268 Patient Weight 12/30/17 23:59 Weight 53.7 kg - General Appearance General appearance: Present: chronically ill, frail EENT: Present: ATNC, hearing intact, vision intact Neck: Present: supple Respiratory: Present: clear Cardiology: Present: no edema, regular rate, regular rhythm, normal S1, normal S2 Dialysis Vascular Access: Venous Catheter (Temp Left neck, DRSG C/D/I. Non- functioning.) Gastrointestinal: Present: normoactive bowel sounds, no tenderness, no guarding Integumentary: Present: no rash, warm and dry Neurologic: Present: alert and oriented x3 Psychiatric: Present: mood/affect appropriate, cooperative - Lab 12/30/17 07:55 12/30/17 07:55 Most recent lab results Calcium 8.5 mg/dL (8.6-10.3) L 12/30/17 07:55 Phosphorus 4.3 mg/dL (2.7-4.5) 12/24/17 09:09 Magnesium 1.7 mg/dL (1.6-2.6) 12/24/17 09:09 - VTE Documentation of Mechanical Device: Intermittent pneumatic compression device Consult Discharge Plan - Plan Referrals: Macario Diallo MD [Primary Care Provider] - Cruzito Alan DO [Partnered Physician] - 01/08/18 10:15 am
[2017-12-30] MEDS ORDERED: 0.9 % Sodium Chloride 250 ML IVC PRN (10:21)
[2017-12-30] MEDS ORDERED: *HR* Heparin 10,000 UNIT/10 ML VIAL IV PRN (10:21)
[2017-12-30] MEDS ORDERED: *HR* Heparin 5,000 UNIT/ML VIAL ONE (13:42)
--- NOTE | 2017-12-30 14:03 | IR Procedure Note ---
Date of procedure: 12/30/17 Consent Obtained: Written consent Timeout: Correct patient and procedure verified, Correct site verified, Time out performed, Skin prep completed Indications: kinked temp HDC Procedure Performed: exchange of temp HDC Was there an assistant professor of psychology present: No Site/Technique: lt IJ Results/Findings: adequate exchange Estimated blood loss (cc): 0 Complications: None; Tolerated procedure well Post Procedure Treatment Plan: CXR Specimen: none
--- NOTE | 2017-12-30 15:34 | Internal Med Progress Note ---
Date of Encounter: 12/30/17 Time of Encounter: 10:00 - Assessment and plan (1) Acute kidney injury superimposed on chronic kidney disease Current Visit: No Status: Acute Assessment and plan: Patient has a history of chronic obstructive renal disease. She was placed on chronic Madden catheter and plan for hemodialysis if kidney function does not improve. On admission cr 4.9, is gradually improving. - Continue careful IV fluid hydration - Avoid the nephrotoxic medications - Strict I/Os - Nephrology consulted, recommendations appreciated. No dialysis today 12/29: Continue to hold nephrotoxins. Urology placed bilateral ureteral stents today with hopes that this may improve her renal function. Nephrology is following. Plans for hemodialysis catheter to be placed today or tomorrow. 12/30: Postop today due to bilateral ureteral stents. Management is per nephrology. Temporary hemodialysis catheter exchange today. Plans for hemodialysis as per nephrology. (2) Diabetes mellitus Current Visit: No Status: Chronic Assessment and plan: Continue basal and sliding-scale insulin coverage Goal glucose <180 to promote infection healing. Diabetic diet Lantus was increased to 30 units HS but glucose needs better control during this time of infection. Appetite looks poor today so will not be aggressive increasing dose. 12/29: No changes today pending procedures. Likely increase insulin in the next day or 2. Sugars remain elevated in the 200s at times 12/30: Refused long-acting insulin. Continue to monitor. Qualifiers: Diabetes mellitus type: type 2 Diabetes mellitus intermodal dispatcher insulin use: with jail use Diabetes mellitus complication status: with kidney complications Diabetes mellitus complication detail: with chronic kidney disease Chronic kidney disease stage: stage 3 (moderate) Qualified Code(s): E11.22 - Type 2 diabetes mellitus with diabetic chronic kidney disease; N18.3 - Chronic kidney disease, stage 3 (moderate); Z79.4 - intermodal dispatcher (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 (3) Hyponatremia Current Visit: No Status: Acute Assessment and plan: Chronic. Patient is on by mouth sodium chloride pills, will continue Borderline to normal range in past several days. Management per Nephrology 12/29: Fairly stable. Monitor As per nephrology (4) HTN (hypertension) Current Visit: No Status: Chronic Assessment and plan: SBP now running 140-160s, metoprolol resumed, will monitor. Was holding initially metoprolol because of suspected severe bradycardia on telemetry, though this turned out not a true bradycardia 12/30: Blood pressure overall stable. Monitor. Qualifiers: Hypertension type: essential hypertension Qualified Code(s): I10 - Essential (primary) hypertension (5) DVT prophylaxis Current Visit: No Status: Acute (6) Clostridium difficile colitis Current Visit: No Status: Suspected Assessment and plan: Likely cause for n/v, diarrhea, Continue PO vancomycin 12/29: Day #3 enteric vancomycin. Anticipate a 14 day course. No diarrhea presently. 12/30: A #4 of the 14 days total empiric therapy. Diarrhea has resolved. (7) Nausea vomiting and diarrhea Current Visit: No Status: Acute Assessment and plan: - ADAT; Currently clear liquid diet. Still complaints of nausea/vomiting. - Possible etiologies based on her history: uremia, C diff colitis, UTI - Symptomatic treatment for nausea and vomiting - ADAT - Nephrology for management of MERNA on CKD, continue IV antibiotics, continue oral vancomycin, follow-up cultures. 12/30: Resolved (8) Catheter-associated urinary tract infection Current Visit: No Status: Ruled-out Assessment and plan: Frequent history of UTI. UA shows positive for UTI. Patient is a chronic Madden catheter user. Review of prior cultures: - Previous urine culture result reviewed, shows Citrobacter Frenndii, 12/27: Zosyn was discontinued and Rocephin was started again 12/28: She is developing sepsis signs and symptoms and urine in her Madden bag is now noticibly cloudy white. - Obtain urine cultures - Resume Zosyn, DC Rocephin 12/29: A #8 antibiotics. Currently Zosyn. Cultur. data negative. Monitor 12/30: Day #9 antibiotics, currently Zosyn, renally dosed. As a complicated urinary tract infection. Anticipate DC Zosyn tomorrow. Monitor. Qualifiers: Indwelling urinary catheter type: indwelling urethral catheter Encounter type: subsequent encounter Qualified Code(s): T83.511D - Infection and inflammatory reaction due to indwelling urethral catheter, subsequent encounter ; N39.0 - Urinary tract infection, site not specified; N39.0 - Urinary tract infection, site not specified (9) CKD (chronic kidney disease) stage 5, GFR less than 15 ml/min Current Visit: No Status: Acute Assessment and plan: Management as above (10) Bradycardia Current Visit: Yes Status: Acute (11) Hypothermia Current Visit: Yes Status: Acute Assessment and plan: Unsure of cause - TSH, serum cortisol level wnl - resolved Qualifiers: Encounter type: initial encounter Qualified Code(s): T68.XXXA - Hypothermia , initial encounter (12) Sepsis Current Visit: Yes Status: Acute Assessment and plan: Today patient had 3 SIRS criteria; tachycardia (though she did refuse metoprolol this AM), leukocytosis of 14k, and fever of 100.6 F Likely UTI related, but cannot exclude other etiologies. Might have worsening C diff as she is refusing PO vancomycin. Patient had some improvement on Zosyn but after de-escalating therapy to Rocephin, patient. Given she was recently in a hospital and currently not much activity should rule out pneumonia as well. Repeat blood cultures, urine cultures, repeat imaging for any source of infection. Close monitoring of vital signs Escalate antibiotic therapy back to Zosyn 12/30: As above. Vitals are stable. Afebrile today. Monitor. Qualifiers: Sepsis type: sepsis due to unspecified organism Qualified Code(s): A41.9 - Sepsis, unspecified organism - Time Spent With Patient Total time spent is greater than 50% in coordination of care (as documented) at patient's floor/unit and/or counseling patient: 25 - 35 minutes - Subjective Interval history: Ms. Lacy is a 72 year old female present to ER for nausea and vomiting for 1 day. Past medical history is significant for diabetes, CKD plan for hemodialysis, chronic Madden catheter use for last 3 months. Patient has chronic kidney disease on chronic Madden catheter in last 3 months. Patient developed nausea and vomiting since 1:00 this morning. The vomiting were clear fluid, no blood in it. Patient has mild abdominal pain. Patient denies a fever, cough, shortness of breath, or chest pain. In the emergency room, abdominal CT has been done, report shows stable chronic founding, no significant acute change. UA shows UTI. Patient was given antibiotics and admitted for further management. 12/29: Today patient went for bilateral ureteral stents. Interventional radiology was consulted for new vascular access for hemodialysis. She is still having some nausea but is tolerating clears. Her creatinine has not changed her , hopefully will improve after urethral stents. Patient's blood cell count is increasing and she was changed back to Zosyn. All culture data negative thus far. Patient is currently day 8 of IV antibiotics, renally dosed. No fevers or chills. No chest pain or shortness of breath. Denies any diarrhea. Denies abdominal pain. 12/30: Interventional radiology exchanged the dialysis catheter today as it was kinked. She states she is feeling well. She is refusing her long-acting insulin is denying any chest pain or shortness of breath. No nausea, vomiting, diarrhea. No fevers or chills. She is postop day 2 bilateral urethral stents for obstructive uropathy. Creatinine has not improved as of yet, she needed to follow. Patient denies any abdominal pain. - Constitutional Vitals: Temp Pulse Resp BP Pulse Ox 98.3 F 69 16 151/64 100 12/30/17 14:59 12/30/17 14:59 12/30/17 14:59 12/30/17 14:59 12/30/17 14:59 General appearance: Present: A&O X 3, answers questions appropriately Exam: Weak, ill-appearing - Head Head exam: Present: atraumatic, normocephalic - Eye Eye exam: Present: PERRL, conjuntiva pink, sclera anicteric Pupils: Present: PERRL - Neck Neck exam general surgery: Present: supple, trachea midline. Absent: lymphadenopathy Additional comments: Left IJ catheter in place - Respiratory Respiratory exam: Present: CTAB. Absent: accessory muscle use, rales, rhonchi, wheezes - Cardiovascular Cardiovascular exam: Present: RRR, +S1, +S2. Absent: diastolic murmur, gallop, rubs, systolic murmur - GI/Abdominal GI/Abdominal exam: Present: normal bowel sounds, soft, no peritoneal signs. Absent: distended, tenderness - Extremities Exam Extremities exam: Present: warm, radial pulses palpable and symmetrical. Absent : calf tenderness, cyanotic, pedal edema - Neurological Exam Neurological exam: Present: CN II-XII intact, oriented X3, no focal deficits. Absent: pronater drift, facial droop, speech deficit - Skin Skin exam: Present: dry, intact Internal Medicine: Result - Labs CBC & Chem 7: 12/30/17 07:55 12/30/17 07:55 Labs: Short CBC 12/30/17 Range/Units 07:55 WBC 9.1 (4.3-11.1) K/mcL Hgb 8.9 L (11.5-15.4) g/dL Hct 27.2 L (35.3-44.9) % Plt Count 208 (140-400) K/mcL BMP 12/30/17 07:55 Sodium 131 L Potassium 4.3 Chloride 103 Carbon Dioxide 17 L BUN 73 H Creatinine 4.19 H Glucose 274 H Calcium 8.5 L - ABG Interpretation ABG results: PT/INR, D-dimer PT 13.7 Seconds (9.4-12.1) H 12/25/17 05:35 - Impressions Impressions Guidance Needle Placement Ultrasound 12/30/17 00:00 IMPRESSION: Successful temporary hemodialysis catheter exchange. D/ / 12/30/2017 15:17:07 Mary Jane Taveras MD / eben Interpreting Provider: Mary Jane Taveras MD Insertion Non-Tunneled Catheter 12/30/17 00:00 IMPRESSION: Successful temporary hemodialysis catheter exchange. D/ / 12/30/2017 15:17:07 Mary Jane Taveras MD / eben Interpreting Provider: Mary Jane Taveras MD Chest X-Ray 12/30/17 13:49 IMPRESSION: Left IJ approach central venous catheter tip in the mid SVC. No pneumothorax. No acute consolidation. D/ / David Wynn MD / David Wynn MD Interpreting Provider: David Wynn MD - VTE Documentation of Mechanical Device: Intermittent pneumatic compression device Consult Discharge Plan - Plan Referrals: Macario Diallo MD [Primary Care Provider] - Cruzito Alan DO [Partnered Physician] - 01/08/18 10:15 am
[2017-12-30] MEDS: Insulin DETEMIR 100 UNIT/ML X5UNITS SQ SCH (21:16)
[2017-12-30] MEDS: Leptospermum Honey GEL 1 APPL/5 ML MLS TP SCH (22:50)
[2017-12-31] MEDS: *HR* Heparin 5,000 UNIT/ML VIAL SQ SCH ×3 (06:40→18:19)
[2017-12-31 07:34] LABS: Calcium 8.3 mg/dL (8.6-10.3)
[2017-12-31] MEDS: Cholecalciferol (D-3) 1,000 UNIT TABLET PO SCH (08:35)
[2017-12-31] MEDS: Aspirin Enteric Coated 81 MG Tablet PO SCH (08:35)
[2017-12-31] MEDS: Lactobacillus 1 EACH CAP.SPRINK PO SCH (08:35)
[2017-12-31] MEDS: Renal Vitamin 1 MG CAPSULE PO SCH (08:35)
[2017-12-31] MEDS: Folic Acid 1 MG TABLET PO SCH (08:35)
[2017-12-31] MEDS: Vancomycin Oral Soln 125 MG/2.5 ML UDC PO SCH ×4 (08:36→22:05)
[2017-12-31] MEDS: Piperacillin/Tazobactam 3.375 GM in 0.9 % Sodium Chloride Mini Bag 100 ML IVPB SCH ×2 (08:38→21:26)
[2017-12-31] MEDS: Leptospermum Honey GEL 1 APPL/5 ML MLS TP SCH ×2 (08:38→22:06)
[2017-12-31] MEDS: Insulin LISPRO 300 UNITS/3 ML VIAL SQ SCH ×7 (08:45→22:05)
[2017-12-31] MEDS ORDERED: *HR* Heparin 10,000 UNIT/10 ML VIAL IV PRN (09:02)
[2017-12-31] MEDS ORDERED: 0.9 % Sodium Chloride 250 ML IVC PRN (09:02)
[2017-12-31] MEDS ORDERED: 0.9 % Sodium Chloride 1,000 ML PRIME SCH (09:15)
--- NOTE | 2017-12-31 09:23 | Nephrology Progress Note ---
Date of Encounter: 12/31/17 Time of Encounter: 09:21 - Assessment and Plan (1) Acute kidney injury superimposed on chronic kidney disease Current Visit: No Status: Acute Scr 3.71 GFR 12. Continue to avoid nephrotoxins and renal dose all medications. HD ordered for today. (2) PNA (pneumonia) Current Visit: Yes Status: Acute Per primary team. Qualifiers: Pneumonia type: due to unspecified organism Laterality: right Lung location: upper lobe of lung Qualified Code(s): J18.1 - Lobar pneumonia, unspecified organism (3) UTI (urinary tract infection) Current Visit: Yes Status: Acute Per primary team. Madden Catheter in place. Qualifiers: Urinary tract infection type: site unspecified Hematuria presence: without hematuria Qualified Code(s): N39.0 - Urinary tract infection, site not specified (4) Generalized weakness Current Visit: Yes Status: Acute Per primary team. Subjective Principal diagnosis: hypotension Interval history: Pt seen and examined, denies CP/SOB. Is up eating breakfast in bed. Line exchanged yesterday, HD ordered for today. Objective - Vital Signs Vital signs: Vital Signs Temp Pulse Resp BP Pulse Ox 12/31/17 05:02 97.6 F 75 15 152/93 98 12/30/17 19:04 98.1 F 67 14 140/56 100 12/30/17 14:59 98.3 F 69 16 151/64 100 12/30/17 11:30 97.7 F 67 15 137/64 98 Intake and Output 12/30/17 12/31/17 12/31/17 23:59 07:59 15:59 Intake Total 360 / 360 220 / 220 Output Total 0 / 0 1500 / 1500 Balance 360 / 360 -1280 / -1280 Intake: IV Fluids 100 / 100 Zosyn 3.375 GM In 0.9 % Sodium 100 / 100 Chloride (Mini-Bag +) 100 ML @ 25 mls/hr IVPB Q12H [facility] Rx#: [id number] Oral 360 / 360 120 / 120 Output: Urine 0 / 0 Catheter 1500 / 1500 Other: Meal Dinner Percent of Meal Consumed 100% Weight 57.7 kg Blood Glucose* 212 Patient Weight 12/31/17 23:59 Weight 57.7 kg - General Appearance General appearance: Present: chronically ill, frail EENT: Present: ATNC, hearing intact ([place] w/o hearing aid.), vision intact Neck: Present: supple Respiratory: Present: clear Cardiology: Present: no edema, regular rate, regular rhythm, normal S1, normal S2 Dialysis Vascular Access: Venous Catheter (Left neck, DRSG C/D/I.) Gastrointestinal: Present: normoactive bowel sounds, no tenderness, no guarding Integumentary: Present: no rash, warm and dry Neurologic: Present: alert and oriented x3 Psychiatric: Present: mood/affect appropriate, cooperative - Lab 12/30/17 07:55 12/31/17 07:04 Most recent lab results Calcium 8.3 mg/dL (8.6-10.3) L 12/31/17 07:04 Phosphorus 4.3 mg/dL (2.7-4.5) 12/24/17 09:09 Magnesium 1.7 mg/dL (1.6-2.6) 12/24/17 09:09 - VTE Documentation of Mechanical Device: Intermittent pneumatic compression device Consult Discharge Plan - Plan Referrals: Macario Diallo MD [Primary Care Provider] - Cruzito Alan DO [Partnered Physician] - 01/08/18 10:15 am
[2017-12-31 09:27] LABS: Hematocrit 28.9 % (35.3-44.9); Hemoglobin 9.6 g/dL (11.5-15.4); Mean Corpuscular HGB Conc 33.2 g/dL (31.6-35.5); Mean Corpuscular Hemoglobin 28.9 pg (28.0-33.3); Mean Platelet Volume 9.8 fL (9.4-12.4); Platelet Count 186 K/mcL (140-400); Red Blood Count 3.32 M/mcL (3.82-4.97); Red Cell Distribution Width 14.3 % (11.5-14.5)
[2017-12-31 09:28] LABS: Kappa Qnt Free Light Chains 18.6 mg/dL (0.33-1.94); Lambda Qnt Free Light Chains 8.94 mg/dL (0.57-2.63)
[2017-12-31] MEDS ORDERED: 0.9 % Sodium Chloride 1,000 ML ONE (09:46)
[2017-12-31] MEDS ORDERED: Heparin 1,000 UNITS/500 mL 500 ML ONE (12:49)
--- NOTE | 2017-12-31 13:46 | Internal Med Progress Note ---
Date of Encounter: 12/31/17 Time of Encounter: 10:00 - Assessment and plan (1) Acute kidney injury superimposed on chronic kidney disease Current Visit: No Status: Acute Assessment and plan: Patient has a history of chronic obstructive renal disease. She was placed on chronic Madden catheter and plan for hemodialysis if kidney function does not improve. On admission cr 4.9, is gradually improving. - Continue careful IV fluid hydration - Avoid the nephrotoxic medications - Strict I/Os - Nephrology consulted, recommendations appreciated. No dialysis today 12/29: Continue to hold nephrotoxins. Urology placed bilateral ureteral stents today with hopes that this may improve her renal function. Nephrology is following. Plans for hemodialysis catheter to be placed today or tomorrow. 12/30: Postop today due to bilateral ureteral stents. Management is per nephrology. Temporary hemodialysis catheter exchange today. Plans for hemodialysis as per nephrology. 12/31: Creatinine is improving. Patient has plans for first dialysis today. Continue to monitor. (2) Diabetes mellitus Current Visit: No Status: Chronic Assessment and plan: Continue basal and sliding-scale insulin coverage Goal glucose <180 to promote infection healing. Diabetic diet Lantus was increased to 30 units HS but glucose needs better control during this time of infection. Appetite looks poor today so will not be aggressive increasing dose. 12/29: No changes today pending procedures. Likely increase insulin in the next day or 2. Sugars remain elevated in the 200s at times 12/30: Refused long-acting insulin. Continue to monitor. 12/31: Will likely need further adjustment in her insulin. Qualifiers: Diabetes mellitus type: type 2 Diabetes mellitus detention insulin use: with manager intermediate use Diabetes mellitus complication status: with kidney complications Diabetes mellitus complication detail: with chronic kidney disease Chronic kidney disease stage: stage 3 (moderate) Qualified Code(s): E11.22 - Type 2 diabetes mellitus with diabetic chronic kidney disease; N18.3 - Chronic kidney disease, stage 3 (moderate); Z79.4 - manager intermediate (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 (3) Hyponatremia Current Visit: No Status: Acute Assessment and plan: Chronic. Patient is on by mouth sodium chloride pills, will continue Borderline to normal range in past several days. Management per Nephrology 12/31: Fairly stable. Monitor As per nephrology (4) HTN (hypertension) Current Visit: No Status: Chronic Assessment and plan: SBP now running 140-160s, metoprolol resumed, will monitor. Was holding initially metoprolol because of suspected severe bradycardia on telemetry, though this turned out not a true bradycardia 12/30: Blood pressure overall stable. Monitor. 12/31: Mildly elevated today. Although she is scheduled for hemodialysis. No medication changes. Monitor Qualifiers: Hypertension type: essential hypertension Qualified Code(s): I10 - Essential (primary) hypertension (5) DVT prophylaxis Current Visit: No Status: Acute Assessment and plan: Heparin subcutaneously (6) Clostridium difficile colitis Current Visit: No Status: Suspected Assessment and plan: Likely cause for n/v, diarrhea, Continue PO vancomycin 12/29: Day #3 enteric vancomycin. Anticipate a 14 day course. No diarrhea presently. 12/31: A #5 of the 14 days total empiric therapy. Diarrhea has resolved. (7) Nausea vomiting and diarrhea Current Visit: No Status: Acute Assessment and plan: - ADAT; Currently clear liquid diet. Still complaints of nausea/vomiting. - Possible etiologies based on her history: uremia, C diff colitis, UTI - Symptomatic treatment for nausea and vomiting - ADAT - Nephrology for management of MERNA on CKD, continue IV antibiotics, continue oral vancomycin, follow-up cultures. 12/30: Resolved (8) CKD (chronic kidney disease) stage 5, GFR less than 15 ml/min Current Visit: No Status: Acute Assessment and plan: Management as above (9) Bradycardia Current Visit: Yes Status: Acute Assessment and plan: Unsure if this is asymptomatic or symptomatic as patient does complain of epigastric discomfort and nausea, however she describes more reflux-like symptoms and she may have a gastroenteritis. I reviewed telemetry strip from 0900 and it was 28 bpm. A stat ECG done now showed a sinus rhythm with HR 78 bpm, no ST/T wave changes that I can appreciate. Otherwise does have many PVCs. I would like Cardiology to review this as well . Called Cardiology on 12/24 and a review of telemetry [employer] Supervisor Dr. Zambrano noted that this is not true bradycardia on telemetry. If there remains question, Cardiology will be consulted. HR currently normal Low dose metoprolol was resumed without issue (10) Hypothermia Current Visit: Yes Status: Acute Qualifiers: Encounter type: initial encounter Qualified Code(s): T68.XXXA - Hypothermia , initial encounter (11) Sepsis Current Visit: Yes Status: Acute Qualifiers: Sepsis type: sepsis due to unspecified organism Qualified Code(s): A41.9 - Sepsis, unspecified organism - Time Spent With Patient Total time spent is greater than 50% in coordination of care (as documented) at patient's floor/unit and/or counseling patient: - Subjective Interval history: Ms. Lacy is a 72 year old female present to ER for nausea and vomiting for 1 day. Past medical history is significant for diabetes, CKD plan for hemodialysis, chronic Madden catheter use for last 3 months. Patient has chronic kidney disease on chronic Madden catheter in last 3 months. Patient developed nausea and vomiting since 1:00 this morning. The vomiting were clear fluid, no blood in it. Patient has mild abdominal pain. Patient denies a fever, cough, shortness of breath, or chest pain. In the emergency room, abdominal CT has been done, report shows stable chronic founding, no significant acute change. UA shows UTI. Patient was given antibiotics and admitted for further management. 12/29: Today patient went for bilateral ureteral stents. Interventional radiology was consulted for new vascular access for hemodialysis. She is still having some nausea but is tolerating clears. Her creatinine has not changed her , hopefully will improve after urethral stents. Patient's blood cell count is increasing and she was changed back to Zosyn. All culture data negative thus far. Patient is currently day 8 of IV antibiotics, renally dosed. No fevers or chills. No chest pain or shortness of breath. Denies any diarrhea. Denies abdominal pain. 12/30: Interventional radiology exchanged the dialysis catheter today as it was kinked. She states she is feeling well. She is refusing her long-acting insulin is denying any chest pain or shortness of breath. No nausea, vomiting, diarrhea. No fevers or chills. She is postop day 2 bilateral urethral stents for obstructive uropathy. Creatinine has not improved as of yet, she needed to follow. Patient denies any abdominal pain. 12/31: Patient states he feels well. Land for hemodialysis, first run today. Patient is denying any chest pain or shortness of breath. No nausea, vomiting, diarrhea. No fevers or chills. - Constitutional Vitals: Temp Pulse Resp BP Pulse Ox 97.6 F 75 15 152/93 98 12/31/17 05:02 12/31/17 05:02 12/31/17 05:02 12/31/17 05:02 12/31/17 08:15 General appearance: Present: A&O X 3, answers questions appropriately - Head Additional comments: Hard of hearing - Eye Eye exam: Present: PERRL, conjuntiva pink, sclera anicteric Pupils: Present: PERRL - Neck Neck exam general surgery: Present: supple, trachea midline. Absent: lymphadenopathy Additional comments: Left neck triple-lumen catheter - Respiratory Respiratory exam: Present: decreased breath sounds. Absent: accessory muscle use, rales, rhonchi, wheezes - Cardiovascular Cardiovascular exam: Present: RRR, +S1, +S2. Absent: diastolic murmur, gallop, rubs, systolic murmur - GI/Abdominal GI/Abdominal exam: Present: normal bowel sounds, soft, no peritoneal signs. Absent: distended, tenderness - Extremities Exam Extremities exam: Present: pedal edema, warm, radial pulses palpable and symmetrical. Absent: calf tenderness, cyanotic - Neurological Exam Neurological exam: Present: CN II-XII intact, oriented X3, no focal deficits. Absent: pronater drift, facial droop, speech deficit - Skin Skin exam: Present: dry, intact Internal Medicine: Result - Labs CBC & Chem 7: 12/31/17 08:53 12/31/17 07:04 Labs: Short CBC 12/31/17 Range/Units 08:53 WBC 8.6 (4.3-11.1) K/mcL Hgb 9.6 L (11.5-15.4) g/dL Hct 28.9 L (35.3-44.9) % Plt Count 186 (140-400) K/mcL BMP 12/31/17 07:04 Sodium 128 L Potassium 5.0 Chloride 102 Carbon Dioxide 15 L BUN 65 H Creatinine 3.71 H Glucose 350 H Calcium 8.3 L - ABG Interpretation ABG results: PT/INR, D-dimer PT 13.7 Seconds (9.4-12.1) H 12/25/17 05:35 - Impressions Impressions Guidance Needle Placement Ultrasound 12/30/17 00:00 IMPRESSION: Successful temporary hemodialysis catheter exchange. D/ / 12/30/2017 15:17:07 Mary Jane Taveras MD / eben Interpreting Provider: Mary Jane Taveras MD Insertion Non-Tunneled Catheter 12/30/17 00:00 IMPRESSION: Successful temporary hemodialysis catheter exchange. D/ / 12/30/2017 15:17:07 Mary Jane Taveras MD / eben Interpreting Provider: Mary Jane Taveras MD Chest X-Ray 12/30/17 13:49 IMPRESSION: Left IJ approach central venous catheter tip in the mid SVC. No pneumothorax. No acute consolidation. D/ / 12/30/2017 15:30:50 David Wynn MD / eben Interpreting Provider: David Wynn MD - VTE Documentation of Mechanical Device: Intermittent pneumatic compression device Consult Discharge Plan - Plan Referrals: Macario Diallo MD [Primary Care Provider] - Cruzito Alan DO [Partnered Physician] - 01/08/18 10:15 am
--- NOTE | 2017-12-31 14:11 | IR Procedure Note ---
Date of procedure: 12/31/17 Consent Obtained: Verbal consent Timeout: Correct patient and procedure verified, Correct site verified, Time out performed, Skin prep completed Local anesthetic: Lidocaine 1% Indications: Poorly functioning HD catheter Procedure Performed: Catheter exchange Was there an assistant professor of archaeology present: No Site/Technique: Exchange done. Swithed 20cm 15.5fr for 28cm as no 24. Results/Findings: CXR ordered. If in atrium, can be used. Estimated blood loss (cc): 1 Complications: None; Tolerated procedure well Post Procedure Treatment Plan: Monitoring in pts room Specimen: n/a
--- NOTE | 2017-12-31 14:48 | Event Note ---
Date of Encounter: 12/31/17 Time of Encounter: 14:30 I was called urgently to the bedside to assess this patient for chest pain. Patient states she had a left-sided chest heaviness which lasted for about 5 minutes shortly after her dialysis catheter was placed. It resolved spontaneously. Not associated with shortness of breath. No nausea or vomiting. States she has never had pain like this before. She denies any history of heart disease. Patient now is without complaint. Blood pressure was in the 160s over 60s systolic. Pulse 87. Respiratory rate 18 unlabored. O2 sat 100% on 3 L. On exam patient is awake alert and oriented 3, no acute distress Lungs show diminished breath sounds at the bases Regular rate and rhythm murmur Diminished soft nontender Extremities trace edema EKG showed normal sinus rhythm, presence of PVCs. Patient has ST depression, downsloping in lateral leads. She had a similar EKG on December [address] depression on current EKG is likely more pronounced A/P chest pain She received aspirin today Patient is on a beta raul I will trend her troponins Neck an echocardiogram to look for wall motion abnormalities. I do not see a recent echo on record. Consult cardiology
[2017-12-31] MEDS: Insulin DETEMIR 100 UNIT/ML X5UNITS SQ SCH (22:05)
[2017-12-31] MEDS: Methyl Salicylate/Menthol 28 GM TUBE TP PRN (22:15)
[2018-01-01 04:02] LABS: Hematocrit 26.4 % (35.3-44.9); Hemoglobin 8.7 g/dL (11.5-15.4); Mean Corpuscular Hemoglobin 28.2 pg (28.0-33.3); Mean Corpuscular Volume 85.7 fL (83.0-100.0); Mean Platelet Volume 10.2 fL (9.4-12.4); Platelet Count 183 K/mcL (140-400); Red Blood Count 3.08 M/mcL (3.82-4.97); Red Cell Distribution Width 14.2 % (11.5-14.5)
[2018-01-01 04:36] LABS: Calcium 8.1 mg/dL (8.6-10.3); Potassium 6.5 mEq/L (3.5-5.1)
[2018-01-01] MEDS: *HR* Heparin 5,000 UNIT/ML VIAL SQ SCH ×2 (05:40→19:05)
[2018-01-01] MEDS: Insulin LISPRO 300 UNITS/3 ML VIAL SQ SCH ×6 (08:14→23:13)
[2018-01-01] MEDS ORDERED: 0.9 % Sodium Chloride 250 ML IVC PRN (09:26)
[2018-01-01] MEDS ORDERED: *HR* Heparin 10,000 UNIT/10 ML VIAL IV PRN (09:26)
[2018-01-01] MEDS ORDERED: 0.9 % Sodium Chloride 1,000 ML PRIME SCH (09:30)
[2018-01-01] MEDS: Vancomycin Oral Soln 125 MG/2.5 ML UDC PO SCH ×5 (10:02→23:10)
[2018-01-01] MEDS: Piperacillin/Tazobactam 3.375 GM in 0.9 % Sodium Chloride Mini Bag 100 ML IVPB SCH (10:03)
[2018-01-01] MEDS: Folic Acid 1 MG TABLET PO SCH (10:06)
[2018-01-01] MEDS: Lactobacillus 1 EACH CAP.SPRINK PO SCH (10:06)
[2018-01-01] MEDS: Renal Vitamin 1 MG CAPSULE PO SCH (10:06)
[2018-01-01] MEDS: Cholecalciferol (D-3) 1,000 UNIT TABLET PO SCH (10:08)
[2018-01-01] MEDS: Aspirin Enteric Coated 81 MG Tablet PO SCH (10:10)
[2018-01-01] MEDS: Leptospermum Honey GEL 1 APPL/5 ML MLS TP SCH ×2 (10:19→23:15)
[2018-01-01] MEDS: Methyl Salicylate/Menthol 28 GM TUBE TP PRN (11:34)
[2018-01-01] MEDS ORDERED: 0.9 % Sodium Chloride 1,000 ML ONE (13:02)
--- NOTE | 2018-01-01 13:42 | Cardiology Consult Note ---
<Eileen Castle - Last Filed: 01/01/18 13:48> Date of Encounter: 01/01/18 Time of Encounter: 13:00 Assessment and Plan (1) Chest pain Current Visit: Yes Status: Acute Per cardiology: -Chest pain post dialysis catheter placement. -Reports was anxious. Denies exertional symptosm. -ECG with no acute ischemic ECG changes. -Denies current chest pain. -Atypical chest pain in the setting of anxiety. Qualifiers: Chest pain type: unspecified Qualified Code(s): R07.9 - Chest pain, unspecified (2) Elevated troponin Current Visit: No Status: Acute Per cardiology: -Troponins 0.03, 0.05, 0.03, 0.09, 0.07, 0.09 in the setting of MERNA on CKD, c.diff, anemia, electrolyte imbalances. -Denies current chest pain -TTE 12/24/17 with LVEF 55%, mild concentric LVH, no segmental wall motion abnormalities. -No acute ischemic ECG changes. -On asa, statin, BB. -Do not suspect NSTEMI, suspect demand ischemia related to above. No cardiac rehab consult warranted. -Anticipate cardiology sign off pending evaluation by . Will arrange outpatient follow up. Discussion w patient/family: The assessment and plan as outlined above was discussed with the patient who expressed understanding and agreement. All questions were answered. Thank you for involving us in the care of your patient. Please call with any questions. Discussed and reviewed with . History of Present Illness Consult date: 12/31/17 Requesting physician: Anthony Barajas Consult reason: chest pain Chief complaint: nausea vomiting History of present illness: Ms. Lacy is a 72 year old female with a relevant past medical history of HTN, anemia, DMII, CKD, hearing loss who presented to [facility] with complaints of nausea , vomiting. Cardiology has been consulted for chest pain. Patient reports chest pain was after temporary dialysis catheter was placed. Stated was mid sternal and lasted about 10 minutes. Denies radiation. Patient reports she was anxious at the time and was sitting in bed. Denies exertional symptoms. Patient denies shortness of breath. Patient denies recurrence of chest pain since episode. Past Med Surg Social Fam HX - Past Medical History Attestation: Yes The following information was validated with the patient. Source: patient, old records reviewed Medical history: diabetes, hyperlipidemia, hypertension, renal disease, other Additional medical history: UTI, electrolyte imbalances, ESRD, pancytopenia, CDiff 2016, hydronephrosis, pneumonia, urinary retention/obstructive uropathy, diabetic foot ulcer Psychiatric history: anxiety - Past Surgical History Surgical History: appendectomy, cholecystectomy, hysterectomy Additional surgical history: cholecystectomy and appendectomy? - Social History Smoking Status: Never smoker Smokeless Tobacco Status: No Alcohol use: none Drug use: none - Family History Mother Living Status: Hx Family Cardiac Disorders: Yes Father Living Status: Hx Family Cardiac Disorders: Yes Medications and Allergies Metoprolol [Lopressor] 12.5 mg PO BID 03/01/16 [History] Aspirin Enteric Coated [Aspirin EC] 81 mg PO DAILY 08/04/17 [History] Oxygen 2 l NS AD 08/04/17 [History] Gabapentin [Neurontin] 100 mg PO BID 09/17/17 [History] Ferrous Sulfate 325 mg PO BID 10/28/17 [History] Ondansetron HCl [Zofran] 4 mg PO TID PRN 10/28/17 [History] Pravastatin Sodium [Pravachol] 10 mg PO HS 10/28/17 [History] Cholecalciferol (Vitamin D3) [Vitamin D3] 1,000 unit PO DAILY 11/16/17 [History] Insulin Glargine,Hum.rec.anlog [Basaglar Kwikpen U-100] 40 unit SQ HS 11/16/17 [ History] Insulin ASPART [NovoLOG] 20 unit SQ TIDWM 12/22/17 [History] Sodium Chloride 1 gm PO BID 12/22/17 [History] 3 Allergy/AdvReac Type Severity Reaction Status Date / Time acetaminophen [From Tylenol] Allergy See Verified 12/22/17 19:03 Comments Influenza Virus Vaccines Allergy See Verified 12/22/17 19:03 Comments All Systems Review: The remainder of the systems were reviewed and are negative - Cardiovascular Cardiovascular: as per HPI, chest pain at rest - Gastrointestinal Gastrointestinal: nausea Physical Examination Vital Signs, Last 4 Hours Temp Pulse Resp BP Pulse Ox 01/01/18 11:21 97.9 F 80 16 146/73 98 General: Conversant, No Apparent Distress HEENT: Atraumatic, Normocephaly, Mucus Membranes Moist Neck: No JVD, Normal carotid pulses Cardiac: Reg Rate and Rhythm, Normal S1 and S2, No Murmur Lungs: Normal Breath Sounds, No Wheeze, Rales, Rhonchi Neuro: Alert and responsive, No focal deficits noted Abdomen: Soft, Non-Tender Skin: No rashes noted on visualized skin Musculoskeletal: No Chest Wall Tenderness Extremities: No Clubbing, No Cyanosis, No Edema, Normal Pulses Results 01/01/18 03:28 01/01/18 03:28 Lab Results Impressions Chest X-Ray 12/30/17 13:49 IMPRESSION: Left IJ approach central venous catheter tip in the mid SVC. No pneumothorax. No acute consolidation. D/ / 12/30/2017 15:30:50 David Wynn MD / earnodina Interpreting Provider: David Wynn MD Chest X-Ray 12/31/17 00:00 IMPRESSION: 1. The distal tip of the left IJ temporary hemodialysis catheter is in the mid right atrium. 2. Small amount of free air beneath the left hemidiaphragm, new from the previous exam. The finding is concerning for a bowel perforation in the absence of recent abdominal surgery. Results of this examination were verbally communicated to Dr. Randolph at 3:17 p.m. on 12/31/2017. A CT of the abdomen is planned for further evaluation. D/ / Gab Coelho MD / Gab Coelho MD Interpreting Provider: Gab Coelho MD Guidance Needle Placement Ultrasound 12/31/17 00:00 IMPRESSION: Successful exchange of a temporary hemodialysis catheter over wire. D/ / Saulo Syed MD / Saulo Syed MD Interpreting Provider: Saulo Syed MD Insertion Non-Tunneled Catheter 12/31/17 00:00 IMPRESSION: Successful exchange of a temporary hemodialysis catheter over wire. D/ / Saulo Syed MD / Saulo Syed MD Interpreting Provider: Saulo Syed MD Chest X-Ray 12/31/17 13:44 IMPRESSION: The temporary left IJ hemodialysis catheter has been exchanged, and now terminates within the mid to low right atrium. D/ / Gab Coelho MD / Gab Coelho MD Interpreting Provider: Gab Coelho MD Abdomen CT 12/31/17 15:18 IMPRESSION: Interval placement of bilateral ureteral stents, with decreased bilateral hydronephrosis. No free intraperitoneal air. Interval development of trace bilateral pleural effusions. D/ / Yue Light Cha, MD / Yue Light Cha, MD Interpreting Provider: Yue Light Cha, MD Active Medications Aspirin (Aspirin Ec) 81 mg PO DAILY VIKA Stop: 06/24/18 09:01 Last Admin: 01/01/18 10:10 Dose: 81 mg Dextrose/Water (Dextrose 50% (Syg)) 25 ml IVP AD PRN PRN Reason: Hypoglycemia Stop: 06/23/18 21:38 Ferrous Sulfate (Ferrous Sulfate) 325 mg PO BIDWM VIKA Stop: 06/24/18 08:01 Last Admin: 12/31/17 17:58 Dose: 325 mg Folic Acid (Folic Acid) 1 mg PO DAILY VIKA Stop: 06/30/18 09:01 Last Admin: 01/01/18 10:06 Dose: 1 mg Glucagon (Glucagen) 1 mg IM ONCE PRN PRN Reason: Hypoglycemia Stop: 06/23/18 21:38 Glucose (Gluctose) 15 gm PO ONCE PRN PRN Reason: Hypoglycemia Stop: 06/23/18 21:38 Glucose (Gluctose) 30 gm PO ONCE PRN PRN Reason: Hypoglycemia Stop: 06/23/18 21:38 Heparin Sodium (Porcine) (Heparin) 5,000 unit SQ Q12HR VIKA Stop: 06/24/18 06:01 Last Admin: 01/01/18 05:40 Dose: 5,000 unit Heparin Sodium (Porcine) (Heparin) 0 unit IV ONCE PRN PRN Reason: Hemodialysis Catheter Packing Heparin Sodium (Porcine) (Heparin) 0 unit IV ONCE PRN PRN Reason: Hemodialysis Catheter Packing Hydralazine HCl (Hydralazine) 10 mg IVP Q6HR PRN PRN Reason: SEE COMMENTS Stop: 06/25/18 18:13 Dextrose (Dextrose 5%) 1,000 mls @ 100 mls/hr IVC .Q10H PRN PRN Reason: HYPOGLYCEMIA Stop: 06/23/18 21:38 Piperacillin Sod/Tazobactam (Sod 3.375 gm/ Sodium Chloride) 100 mls @ 25 mls/ hr IVPB Q12H VIKA Stop: 06/29/18 21:01 Last Infusion: 01/01/18 13:40 Dose: Infused Sodium Chloride (0.9 % Sodium Chloride) 250 mls @ 937.5 mls/hr IVC .Q16M PRN PRN Reason: Hypotension Stop: 07/02/18 09:03 Sodium Chloride (0.9 % Sodium Chloride) 1,000 mls @ 0 mls/hr PRIME .Q0M VIKA PRN Reason: As Directed Stop: 07/02/18 09:16 Sodium Chloride (0.9 % Sodium Chloride) 250 mls @ 937.5 mls/hr IVC .Q16M PRN PRN Reason: Hypotension Stop: 07/03/18 09:27 Sodium Chloride (0.9 % Sodium Chloride) 1,000 mls @ 0 mls/hr PRIME .Q0M VIKA PRN Reason: As Directed Stop: 07/03/18 09:31 Insulin Detemir (Levemir) 40 unit SQ HS [facility]KA Stop: 06/30/18 21:01 Last Admin: 12/31/17 22:05 Dose: Not Given Insulin Human Lispro (Humalog) 0 units SQ HS [facility]KA PRN Reason: Protocol Stop: 06/24/18 21:01 Last Admin: 12/31/17 22:05 Dose: Not Given Insulin Human Lispro (Humalog) 0 units SQ TIDAC [facility] PRN Reason: Protocol Stop: 06/24/18 07:31 Last Admin: 01/01/18 11:35 Dose: Not Given Insulin Human Lispro (Humalog) 20 units SQ TIDWM VIKA Stop: 06/30/18 17:01 Last Admin: 01/01/18 11:35 Dose: Not Given Lactobacillus Acidophilus/Rhamnosus (Culturelle) 2 each PO DAILY [facility]KA Stop: 06/24/18 09:01 Last Admin: 01/01/18 10:06 Dose: 2 each Leptospermum Honey (Medihoney Gel) 1 appl TP BID [facility]KA Stop: 07/01/18 21:01 Last Admin: 01/01/18 10:19 Dose: 1 appl Menthol/Methyl Salicylate (Bengay) 1 appl TP BID PRN PRN Reason: Pain Stop: 07/02/18 21:53 Last Admin: 01/01/18 11:34 Dose: 1 appl Metoprolol Tartrate (Lopressor) 12.5 mg PO BID [facility] Stop: 06/24/18 09:01 Last Admin: 01/01/18 10:10 Dose: Not Given Naloxone HCl (Narcan) 0.4 mg IVP Q2MIN PRN PRN Reason: SEE COMMENTS Stop: 06/23/18 21:34 Omeprazole (Prilosec) 20 mg PO DAILY@0630 [facility] PRN Reason: Protocol Stop: 07/02/18 06:31 Last Admin: 01/01/18 05:40 Dose: 20 mg Ondansetron HCl (Zofran) 4 mg IVP Q4H PRN PRN Reason: Nausea And Vomiting Stop: 06/23/18 21:34 Simvastatin (Zocor) 5 mg PO HS [facility] Stop: 06/24/18 21:01 Last Admin: 12/31/17 22:06 Dose: Not Given Tramadol HCl (Ultram) 50 mg PO TID PRN PRN Reason: Moderate Pain Stop: 06/25/18 21:07 Vancomycin HCl (Firvanq) 125 mg PO QID [facility] Stop: 06/28/18 13:01 Last Admin: 01/01/18 13:31 Dose: 125 mg Vitamin B Complex/Vit C/Folic Acid (Renal Caps Softgel) 1 mg PO DAILY [facility] Stop: 06/28/18 09:46 Last Admin: 01/01/18 10:06 Dose: 1 mg Vitamin D (Vitamin D) 1,000 unit PO DAILY [facility] Stop: 06/24/18 09:01 Last Admin: 01/01/18 10:08 Dose: 1,000 unit Laboratory Tests 12/24/17 12/25/17 12/25/17 09:09 05:35 13:34 Hgb Potassium Creatinine Troponin I 0.03 0.05 H* 0.03 12/28/17 12/31/17 12/31/17 07:04 14:59 21:07 Hgb 10.5 L Potassium Creatinine Troponin I 0.09 H* 0.07 H* 01/01/18 01/01/18 01/01/18 03:28 03:28 03:28 Hgb 8.7 L Potassium 6.5 H* D Creatinine 3.39 H Troponin I 0.09 H* - Imaging and Cardiology Chest Xray: report reviewed Echo: pending - EKG Interpretation EKG results cardiology: personally reviewed (ECG 12/31/17 with SR, HR 85, frequent PVCs.), other (Telemetry reviewed with average HR previous 12 hours noted to be 73, SR. PACs noted.) Consult Discharge Plan - Plan Referrals: Macario Diallo MD [Primary Care Provider] - Cruzito Alan DO [Partnered Physician] - 01/08/18 10:15 am <Terry Carver - Last Filed: 01/03/18 15:46> Date of Encounter: 01/01/18 Time of Encounter: 16:00 - Attending Attestation I have personally performed a face to face evaluation on this patient. I have reviewed and agree with the care plan. History and Exam by me shows CC: left sided chest pain Pt reports sudden onset stabbing chest pain, pressure, occurred following L IJ placement of dialysis catheter, 810 at most severe, not associated with radiation of pain, nausea, diaphoresis or shortness of breath. She reports pain occured at rest, resolved spontaneously. She denies previous episodes of similar pain. She has no previous cardiac history. She is pain free at time of examination. ROS: reviewed, agree with above PMH: Reviewed, agree with above PE: pt seen and examined, agree with documentation as above with the addition of indwelling central line covered by surgical dressing in left IJ. IMP/Plan: 1. Chest pain: musculoskeletal etiology, no acute EKG or enzematic changes, echo 12/22/2017 shows normal LV function, no sub segmental wall motion abnormalites to suggest previous [place] or ongoing ischemia 2 Elevated troponins: sequential troponin measurements minimally elevated, most consistent with poor renal clearance due to worsening renal function rather than acute ischemic event. However in light of risk factors, did discuss stress imaging and possible LHC if indicated, pt reports will decline any contrast study not undertaken for life threatening condition at present, in an attempt to avoid chronic dialysis, therefore would continue to manage medically, reassess if symptoms change. Assessment and Plan Discussion w patient/family: The assessment and plan as outlined above was discussed with the patient and/or family members who expressed understanding and agreement. All questions were answered. Thank you for involving us in the care of your patient. Please call with any questions. History of Present Illness History of present illness: Ms. Lacy is a 72 year old female All Systems Review: The remainder of the systems were reviewed and are negative Physical Examination Vital Signs, Last 4 Hours Temp Pulse Resp BP Pulse Ox 01/03/18 12:32 98.2 F 81 16 152/78 96 Results 01/03/18 05:49 01/03/18 05:49 Lab Results 01/03/18 01/03/18 05:49 05:49 WBC 11.3 H Hgb 7.4 L Hct 23.5 L Plt Count 160 Sodium 136 Potassium 4.3 Chloride 103 Carbon Dioxide 26 BUN 27 H Creatinine 2.14 H Glucose 318 H Calcium 7.9 L
--- NOTE | 2018-01-01 14:29 | Internal Med Progress Note ---
Date of Encounter: 01/01/18 Time of Encounter: 14:28 - Assessment and plan (1) Acute kidney injury superimposed on chronic kidney disease Current Visit: No Status: Acute Assessment and plan: Patient has a history of chronic obstructive renal disease. She was placed on chronic Madden catheter and plan for hemodialysis if kidney function does not improve. On admission cr 4.9, is gradually improving. - Continue careful IV fluid hydration - Avoid the nephrotoxic medications - Strict I/Os - Nephrology consulted, recommendations appreciated. No dialysis today 12/29: Continue to hold nephrotoxins. Urology placed bilateral ureteral stents today with hopes that this may improve her renal function. Nephrology is following. Plans for hemodialysis catheter to be placed today or tomorrow. 12/30: Postop today due to bilateral ureteral stents. Management is per nephrology. Temporary hemodialysis catheter exchange today. Plans for hemodialysis as per nephrology. 01/01: Potassium elevated today. Patient underwent hemodialysis. Her creatinine is improving, hopefully related to placement of bilateral ureteral stents Discussed the case with Dr. Meza in nephrology today (2) Diabetes mellitus Current Visit: No Status: Chronic Assessment and plan: Continue basal and sliding-scale insulin coverage Goal glucose <180 to promote infection healing. Diabetic diet Lantus was increased to 30 units HS but glucose needs better control during this time of infection. Appetite looks poor today so will not be aggressive increasing dose. 12/29: No changes today pending procedures. Likely increase insulin in the next day or 2. Sugars remain elevated in the 200s at times 12/30: Refused long-acting insulin. Continue to monitor. 12/31: Will likely need further adjustment in her insulin. 01/01: Blood sugar is elevated. Patient has been refusing insulin. Qualifiers: Diabetes mellitus type: type 2 Diabetes mellitus residential insulin use: with tank terminal gauger use Diabetes mellitus complication status: with kidney complications Diabetes mellitus complication detail: with chronic kidney disease Chronic kidney disease stage: stage 3 (moderate) Qualified Code(s): E11.22 - Type 2 diabetes mellitus with diabetic chronic kidney disease; N18.3 - Chronic kidney disease, stage 3 (moderate); Z79.4 - nursing home (current) use of insulin (3) Hyponatremia Current Visit: No Status: Acute Assessment and plan: Chronic. Patient is on by mouth sodium chloride pills, will continue Borderline to normal range in past several days. Management per Nephrology 01/01: Fairly stable. Monitor As per nephrology (4) HTN (hypertension) Current Visit: No Status: Chronic Assessment and plan: SBP now running 140-160s, metoprolol resumed, will monitor. Was holding initially metoprolol because of suspected severe bradycardia on telemetry, though this turned out not a true bradycardia 12/30: Blood pressure overall stable. Monitor. 12/31: Mildly elevated today. Although she is scheduled for hemodialysis. No medication changes. Monitor 01/01: Improving Patient is on Lopressor 12.5 mg by mouth twice a day. IV hydralazine when necessary. Qualifiers: Hypertension type: essential hypertension Qualified Code(s): I10 - Essential (primary) hypertension (5) DVT prophylaxis Current Visit: No Status: Acute Assessment and plan: Heparin subcutaneously (6) Clostridium difficile colitis Current Visit: No Status: Suspected Assessment and plan: Likely cause for n/v, diarrhea, Continue PO vancomycin : Day #5 of 10-14 days total therapy Vancomycin 125 mg po QID.. Diarrhea has resolved. (7) Nausea vomiting and diarrhea Current Visit: No Status: Acute Assessment and plan: - ADAT; Currently clear liquid diet. Still complaints of nausea/vomiting. - Possible etiologies based on her history: uremia, C diff colitis, UTI - Symptomatic treatment for nausea and vomiting - ADAT - Nephrology for management of MERNA on CKD, continue IV antibiotics, continue oral vancomycin, follow-up cultures. 12/30: Resolved (8) CKD (chronic kidney disease) stage 5, GFR less than 15 ml/min Current Visit: No Status: Acute Assessment and plan: Management as above (9) Bradycardia Current Visit: Yes Status: Acute Assessment and plan: Unsure if this is asymptomatic or symptomatic as patient does complain of epigastric discomfort and nausea, however she describes more reflux-like symptoms and she may have a gastroenteritis. I reviewed telemetry strip from 0900 and it was 28 bpm. A stat ECG done now showed a sinus rhythm with HR 78 bpm, no ST/T wave changes that I can appreciate. Otherwise does have many PVCs. I would like Cardiology to review this as well . Called Cardiology on 12/24 and a review of telemetry Electrotyper Dr. Zambrano noted that this is not true bradycardia on telemetry. If there remains question, Cardiology will be consulted. HR currently normal Low dose metoprolol was resumed without issue (10) Hypothermia Current Visit: Yes Status: Acute Qualifiers: Encounter type: initial encounter Qualified Code(s): T68.XXXA - Hypothermia , initial encounter (11) Sepsis Current Visit: Yes Status: Acute Assessment and plan: Today patient had 3 SIRS criteria; tachycardia (though she did refuse metoprolol this AM), leukocytosis of 14k, and fever of 100.6 F Likely UTI related, but cannot exclude other etiologies. Might have worsening C diff as she is refusing PO vancomycin. Patient had some improvement on Zosyn but after de-escalating therapy to Rocephin, patient. Given she was recently in a hospital and currently not much activity should rule out pneumonia as well. Repeat blood cultures, urine cultures, repeat imaging for any source of infection. Close monitoring of vital signs Escalate antibiotic therapy back to Zosyn 12/30: As above. Vitals are stable. Afebrile today. Monitor. 01/01: Resolved. Zosyn was stopped Qualifiers: Sepsis type: sepsis due to unspecified organism Qualified Code(s): A41.9 - Sepsis, unspecified organism - Time Spent With Patient Total time spent is greater than 50% in coordination of care (as documented) at patient's floor/unit and/or counseling patient: 25 - 35 minutes - Subjective Interval history: Ms. Lacy is a 72 year old female present to ER for nausea and vomiting for 1 day. Past medical history is significant for diabetes, CKD plan for hemodialysis, chronic Madden catheter use for last 3 months. Patient has chronic kidney disease on chronic Madden catheter in last 3 months. Patient developed nausea and vomiting since 1:00 this morning. The vomiting were clear fluid, no blood in it. Patient has mild abdominal pain. Patient denies a fever, cough, shortness of breath, or chest pain. In the emergency room, abdominal CT has been done, report shows stable chronic founding, no significant acute change. UA shows UTI. Patient was given antibiotics and admitted for further management. 12/29: Today patient went for bilateral ureteral stents. Interventional radiology was consulted for new vascular access for hemodialysis. She is still having some nausea but is tolerating clears. Her creatinine has not changed her , hopefully will improve after urethral stents. Patient's blood cell count is increasing and she was changed back to Zosyn. All culture data negative thus far. Patient is currently day 8 of IV antibiotics, renally dosed. No fevers or chills. No chest pain or shortness of breath. Denies any diarrhea. Denies abdominal pain. 12/30: Interventional radiology exchanged the dialysis catheter today as it was kinked. She states she is feeling well. She is refusing her long-acting insulin is denying any chest pain or shortness of breath. No nausea, vomiting, diarrhea. No fevers or chills. She is postop day 2 bilateral urethral stents for obstructive uropathy. Creatinine has not improved as of yet, she needed to follow. Patient denies any abdominal pain. 01/01: Yesterday patient had a chest x-ray which showed suggestion of free air in the abdomen. A noncontrast CT of her abdomen and pelvis showed this not to be the case. He will dialysis was postponed until today. Patient also had chest pain last night with a negative workup. Cardiology also evaluated and felt this not to be indicative of a non-STEMI. Patient is feeling well today. Tolerating a diet. Plan is for first run of hemodialysis today. - Constitutional Vitals: Temp Pulse Resp BP Pulse Ox 97.9 F 80 16 146/73 98 01/01/18 11:21 01/01/18 11:21 01/01/18 11:21 01/01/18 11:21 01/01/18 11:21 General appearance: Present: A&O X 3, no acute distress, answers questions appropriately - Head Head exam: Present: atraumatic, normocephalic - Eye Eye exam: Present: PERRL, conjuntiva pink, sclera anicteric Pupils: Present: PERRL - Neck Neck exam general surgery: Present: supple, trachea midline. Absent: lymphadenopathy Additional comments: He was dialysis catheter left neck - Respiratory Respiratory exam: Present: CTAB. Absent: accessory muscle use, rales, rhonchi, wheezes - Cardiovascular Cardiovascular exam: Present: RRR, +S1, +S2. Absent: diastolic murmur, gallop, rubs, systolic murmur - GI/Abdominal GI/Abdominal exam: Present: normal bowel sounds, soft, no peritoneal signs. Absent: distended, tenderness - Extremities Exam Extremities exam: Present: warm, radial pulses palpable and symmetrical. Absent : calf tenderness, cyanotic, pedal edema - Neurological Exam Neurological exam: Present: CN II-XII intact, oriented X3, no focal deficits. Absent: pronater drift, facial droop, speech deficit - Skin Skin exam: Present: dry, intact Internal Medicine: Result - Labs CBC & Chem 7: 01/01/18 03:28 01/01/18 03:28 Labs: Short CBC 01/01/18 Range/Units 03:28 WBC 6.9 (4.3-11.1) K/mcL Hgb 8.7 L (11.5-15.4) g/dL Hct 26.4 L (35.3-44.9) % Plt Count 183 (140-400) K/mcL BMP 01/01/18 03:28 Sodium 128 L Potassium 6.5 H* D Chloride 104 Carbon Dioxide 17 L BUN 63 H Creatinine 3.39 H Glucose 299 H Calcium 8.1 L Cardiac Enzymes 12/31/17 12/31/17 01/01/18 Range/Units 14:59 21:07 03:28 Troponin I 0.09 H* 0.07 H* 0.09 H* (< 0.04) ng/mL - ABG Interpretation ABG results: PT/INR, D-dimer PT 13.7 Seconds (9.4-12.1) H 12/25/17 05:35 - Impressions Impressions Chest X-Ray 12/30/17 13:49 IMPRESSION: Left IJ approach central venous catheter tip in the mid SVC. No pneumothorax. No acute consolidation. D/ / 12/30/2017 15:30:50 David Wynn MD / [facility] Interpreting Provider: David Wynn MD Chest X-Ray 12/31/17 00:00 IMPRESSION: 1. The distal tip of the left IJ temporary hemodialysis catheter is in the mid right atrium. 2. Small amount of free air beneath the left hemidiaphragm, new from the previous exam. The finding is concerning for a bowel perforation in the absence of recent abdominal surgery. Results of this examination were verbally communicated to Dr. Randolph at 3:17 p.m. on 12/31/2017. A CT of the abdomen is planned for further evaluation. D/ / Gab Coelho MD / Gab Coelho MD Interpreting Provider: Gab Coelho MD Guidance Needle Placement Ultrasound 12/31/17 00:00 IMPRESSION: Successful exchange of a temporary hemodialysis catheter over wire. D/ / Saulo Syed MD / Saulo Syed MD Interpreting Provider: Saulo Syed MD Insertion Non-Tunneled Catheter 12/31/17 00:00 IMPRESSION: Successful exchange of a temporary hemodialysis catheter over wire. D/ / Saulo Syed MD / Saulo Syed MD Interpreting Provider: Saulo Syed MD Chest X-Ray 12/31/17 13:44 IMPRESSION: The temporary left IJ hemodialysis catheter has been exchanged, and now terminates within the mid to low right atrium. D/ / Gab Coelho MD / Gab Coelho MD Interpreting Provider: Gab Coelho MD Abdomen CT 12/31/17 15:18 IMPRESSION: Interval placement of bilateral ureteral stents, with decreased bilateral hydronephrosis. No free intraperitoneal air. Interval development of trace bilateral pleural effusions. D/ / Yue Light Cha, MD / Yue Light Cha, MD Interpreting Provider: Yue Light Cha, MD - VTE Documentation of Mechanical Device: Intermittent pneumatic compression device Consult Discharge Plan - Plan Referrals: Macario Diallo MD [Primary Care Provider] - Cruzito Alan DO [Partnered Physician] - 01/08/18 10:15 am
--- NOTE | 2018-01-01 16:50 | Nephrology Progress Note ---
Date of Encounter: 01/02/18 Time of Encounter: 13:30 - Assessment and Plan (1) CKD (chronic kidney disease) stage 5, GFR less than 15 ml/min Current Visit: No Status: Acute New start ESRD HD with UF planned today with new temp line Continue renal diet Will plan for nursing home HD by next week if no signifiacnt improvement in renal fx, will need permcath and outpatient HD placement at that time Continue to avoid nephrotoxins if possible Will monitor UOP closely (2) Hyperkalemia Current Visit: Yes Status: Acute Potassium noted elevated this am at 6.5 but improved on repeat at 5.7, will dialyze today and hopefully improve further Renal diet advised (3) Anemia Current Visit: No Status: Acute Hgb stable at 8-9, should improve nursing home with EPO Qualifiers: Anemia type: due to chronic kidney disease Chronic kidney disease stage: stage 5, not on chronic dialysis Qualified Code(s): N18.5 - Chronic kidney disease, stage 5; D63.1 - Anemia in chronic kidney disease (4) Hyponatremia Current Visit: No Status: Acute Chronic with sodium at 128 today, should improve with HD today (5) Hydronephrosis Current Visit: No Status: Chronic s/p ureteral stents per urology, UOP great today and yesterday, will monitor Qualifiers: Hydronephrosis type: other Qualified Code(s): N13.39 - Other hydronephrosis Subjective Principal diagnosis: hypotension Interval history: Interim events noted, pt seen and examined now on HD after recurrent hospital stays with MERNA on stage 4 CKD. s/p new temp HD line yesterday, awaiting HD today. No new complaints Objective - Vital Signs Vital signs: Vital Signs Temp Pulse Resp BP Pulse Ox 01/01/18 11:21 97.9 F 80 16 146/73 98 01/01/18 07:33 97.6 F 67 16 171/72 98 01/01/18 04:16 97.8 F 75 15 171/76 98 12/31/17 19:47 98.0 F 77 15 160/66 100 Intake and Output 01/01/18 01/01/18 01/01/18 07:59 15:59 23:59 Intake Total 100 / 100 340 / 340 Output Total 1600 / 1600 650 / 650 Balance -1500 / -1500 -310 / -310 Intake: IV Fluids 100 / 100 100 / 100 Zosyn 3.375 GM In 0.9 % Sodium 100 / 100 100 / 100 Chloride (Mini-Bag +) 100 ML @ 25 mls/hr IVPB Q12H [facility] Rx#: [id number] Oral 0 / 0 240 / 240 Output: Catheter 1600 / 1600 650 / 650 Other: Meal Breakfast Percent of Meal Consumed 100% Stool Size Moderate Stool Consistency soft Stool Color Brown Weight 57.9 kg Blood Glucose* 346 388 Patient Weight 01/01/18 23:59 Weight 57.9 kg - General Appearance General appearance: Present: chronically ill EENT: Present: ATNC, mucous membranes moist Neck: Present: no JVD, supple Respiratory: Present: clear Cardiology: Present: no edema, normal S1, normal S2 Dialysis Vascular Access: Venous Catheter (temp HD) Gastrointestinal: Present: no tenderness, no guarding Integumentary: Present: warm and dry Neurologic: Present: no focal deficit Musculoskeletal: Present: no deformities Psychiatric: Present: mood/affect appropriate, cooperative - Lab 01/02/18 05:39 01/02/18 05:39 Most recent lab results Calcium 8.1 mg/dL (8.6-10.3) L 01/01/18 03:28 Phosphorus 4.3 mg/dL (2.7-4.5) 12/24/17 09:09 Magnesium 1.7 mg/dL (1.6-2.6) 12/24/17 09:09 - VTE Documentation of Mechanical Device: Intermittent pneumatic compression device Consult Discharge Plan - Plan Referrals: Macario Diallo MD [Primary Care Provider] - Cruzito Alan DO [Partnered Physician] - 01/08/18 10:15 am
[2018-01-01] MEDS ORDERED: Heparin 1,000 UNITS/500 mL 500 ML ONE (17:36)
[2018-01-01] MEDS ORDERED: 0.9 % Sodium Chloride 500 ML ONE (17:38)
[2018-01-01] MEDS ORDERED: *HR* Heparin 5,000 UNIT/ML VIAL ONE ×2 (18:01→18:07)
[2018-01-01] MEDS: Insulin DETEMIR 100 UNIT/ML X5UNITS SQ SCH (23:14)
[2018-01-02] MEDS: *HR* Heparin 5,000 UNIT/ML VIAL SQ SCH ×2 (05:25→09:12)
[2018-01-02 06:48] LABS: Hematocrit 26.6 % (35.3-44.9); Hemoglobin 8.7 g/dL (11.5-15.4); Mean Corpuscular HGB Conc 32.7 g/dL (31.6-35.5); Mean Corpuscular Hemoglobin 28.5 pg (28.0-33.3); Mean Corpuscular Volume 87.2 fL (83.0-100.0); Mean Platelet Volume 10.5 fL (9.4-12.4); Platelet Count 152 K/mcL (140-400); Red Blood Count 3.05 M/mcL (3.82-4.97); Red Cell Distribution Width 14.1 % (11.5-14.5)
[2018-01-02 07:14] LABS: Calcium 7.8 mg/dL (8.6-10.3); Potassium 5.7 mEq/L (3.5-5.1)
[2018-01-02] MEDS ORDERED: 0.9 % Sodium Chloride 1,000 ML ONE (08:34)
[2018-01-02] MEDS: Insulin LISPRO 300 UNITS/3 ML VIAL SQ SCH ×4 (09:10→20:36)
[2018-01-02] MEDS: Vancomycin Oral Soln 125 MG/2.5 ML UDC PO SCH ×4 (09:14→20:31)
[2018-01-02] MEDS: Lactobacillus 1 EACH CAP.SPRINK PO SCH (09:17)
[2018-01-02] MEDS: Renal Vitamin 1 MG CAPSULE PO SCH (09:20)
--- NOTE | 2018-01-02 09:30 | Internal Med Progress Note ---
Date of Encounter: 01/02/18 Time of Encounter: 09:28 - Assessment and plan (1) Acute kidney injury superimposed on chronic kidney disease Current Visit: No Status: Acute Assessment and plan: Patient has a history of chronic obstructive renal disease. She was placed on chronic Madden catheter and plan for hemodialysis if kidney function does not improve. On admission cr 4.9, is gradually improving. - Continue careful IV fluid hydration - Avoid the nephrotoxic medications - Strict I/Os - Nephrology consulted, recommendations appreciated. No dialysis today 12/29: Continue to hold nephrotoxins. Urology placed bilateral ureteral stents today with hopes that this may improve her renal function. Nephrology is following. Plans for hemodialysis catheter to be placed today or tomorrow. 12/30: Postop today due to bilateral ureteral stents. Management is per nephrology. Temporary hemodialysis catheter exchange today. Plans for hemodialysis as per nephrology. 01/01: Potassium elevated today. Patient underwent hemodialysis. Her creatinine is improving, hopefully related to placement of bilateral ureteral stents Discussed the case with Dr. Meza in nephrology today 01/02: HD unclear at this point whether this is temporary or whether she will need a permacath for permanent dialysis (2) Diabetes mellitus Current Visit: No Status: Chronic Assessment and plan: Continue basal and sliding-scale insulin coverage Goal glucose <180 to promote infection healing. Diabetic diet Lantus was increased to 30 units HS but glucose needs better control during this time of infection. Appetite looks poor today so will not be aggressive increasing dose. 12/29: No changes today pending procedures. Likely increase insulin in the next day or 2. Sugars remain elevated in the 200s at times 12/30: Refused long-acting insulin. Continue to monitor. 12/31: Will likely need further adjustment in her insulin. 01/02: Blood sugar is elevated. Patient has been refusing insulin. Will attempt to convince her to take insulin. Blood sugars remain elevated. 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 Patient is on by mouth sodium chloride pills, will continue Borderline to normal range in past several days. Management per Nephrology 01/01: Fairly stable. Monitor As per nephrology (4) HTN (hypertension) Current Visit: No Status: Chronic Assessment and plan: SBP now running 140-160s, metoprolol resumed, will monitor. Was holding initially metoprolol because of suspected severe bradycardia on telemetry, though this turned out not a true bradycardia 12/30: Blood pressure overall stable. Monitor. 12/31: Mildly elevated today. Although she is scheduled for hemodialysis. No medication changes. Monitor 01/01: Improving Patient is on Lopressor 12.5 mg by mouth twice a day. IV hydralazine when necessary. Qualifiers: Hypertension type: essential hypertension Qualified Code(s): I10 - Essential (primary) hypertension (5) DVT prophylaxis Current Visit: No Status: Acute Assessment and plan: Heparin subcutaneously (6) Clostridium difficile colitis Current Visit: No Status: Suspected Assessment and plan: Likely cause for n/v, diarrhea, Continue PO vancomycin 01/02: Day #6 of 10-14 days total therapy Vancomycin 125 mg po QID.. Diarrhea has resolved. (7) Nausea vomiting and diarrhea Current Visit: No Status: Acute Assessment and plan: - ADAT; Currently clear liquid diet. Still complaints of nausea/vomiting. - Possible etiologies based on her history: uremia, C diff colitis, UTI - Symptomatic treatment for nausea and vomiting - ADAT - Nephrology for management of MERNA on CKD, continue IV antibiotics, continue oral vancomycin, follow-up cultures. 12/30: Resolved (8) CKD (chronic kidney disease) stage 5, GFR less than 15 ml/min Current Visit: No Status: Acute Assessment and plan: Management as above (9) Bradycardia Current Visit: Yes Status: Acute (10) Hypothermia Current Visit: Yes Status: Acute Qualifiers: Encounter type: initial encounter Qualified Code(s): T68.XXXA - Hypothermia , initial encounter (11) Sepsis Current Visit: Yes Status: Acute Qualifiers: Sepsis type: sepsis due to unspecified organism Qualified Code(s): A41.9 - Sepsis, unspecified organism - Time Spent With Patient Total time spent is greater than 50% in coordination of care (as documented) at patient's floor/unit and/or counseling patient: - Subjective Interval history: Ms. Lacy is a 72 year old female present to ER for nausea and vomiting for 1 day. Past medical history is significant for diabetes, CKD plan for hemodialysis, chronic Madden catheter use for last 3 months. Patient has chronic kidney disease on chronic Madden catheter in last 3 months. Patient developed nausea and vomiting since 1:00 this morning. The vomiting were clear fluid, no blood in it. Patient has mild abdominal pain. Patient denies a fever, cough, shortness of breath, or chest pain. In the emergency room, abdominal CT has been done, report shows stable chronic founding, no significant acute change. UA shows UTI. Patient was given antibiotics and admitted for further management. 12/29: Today patient went for bilateral ureteral stents. Interventional radiology was consulted for new vascular access for hemodialysis. She is still having some nausea but is tolerating clears. Her creatinine has not changed her , hopefully will improve after urethral stents. Patient's blood cell count is increasing and she was changed back to Zosyn. All culture data negative thus far. Patient is currently day 8 of IV antibiotics, renally dosed. No fevers or chills. No chest pain or shortness of breath. Denies any diarrhea. Denies abdominal pain. 12/30: Interventional radiology exchanged the dialysis catheter today as it was kinked. She states she is feeling well. She is refusing her long-acting insulin is denying any chest pain or shortness of breath. No nausea, vomiting, diarrhea. No fevers or chills. She is postop day 2 bilateral urethral stents for obstructive uropathy. Creatinine has not improved as of yet, she needed to follow. Patient denies any abdominal pain. 01/01: Yesterday patient had a chest x-ray which showed suggestion of free air in the abdomen. A noncontrast CT of her abdomen and pelvis showed this not to be the case. He will dialysis was postponed until today. Patient also had chest pain last night with a negative workup. Cardiology also evaluated and felt this not to be indicative of a non-STEMI. Patient is feeling well today. Tolerating a diet. Plan is for first run of hemodialysis today. 01/02: Patient states she feels well today. No complaints he had her first run of dialysis yesterday. No chest pain or shortness of breath. No nausea, vomiting, diarrhea. No fevers or chills. - Constitutional Vitals: Temp Pulse Resp BP Pulse Ox 98 F 88 15 124/62 95 01/02/18 07:38 01/02/18 07:38 01/02/18 07:38 01/02/18 07:38 01/02/18 07:38 General appearance: Present: A&O X 3, no acute distress, answers questions appropriately - Head Head exam: Present: atraumatic, normocephalic - Eye Eye exam: Present: PERRL, conjuntiva pink, sclera anicteric Pupils: Present: PERRL - Neck Neck exam general surgery: Present: supple, trachea midline. Absent: lymphadenopathy Additional comments: Dialysis catheter left-side of neck - Respiratory Respiratory exam: Present: CTAB. Absent: accessory muscle use, rales, rhonchi, wheezes - Cardiovascular Cardiovascular exam: Present: RRR, +S1, +S2. Absent: diastolic murmur, gallop, rubs, systolic murmur - GI/Abdominal GI/Abdominal exam: Present: normal bowel sounds, soft, no peritoneal signs. Absent: distended, tenderness - Extremities Exam Extremities exam: Present: warm, radial pulses palpable and symmetrical. Absent : calf tenderness, cyanotic, pedal edema - Neurological Exam Neurological exam: Present: CN II-XII intact, oriented X3, no focal deficits. Absent: pronater drift, facial droop, speech deficit - Skin Skin exam: Present: dry, intact Internal Medicine: Result - Labs CBC & Chem 7: 01/02/18 05:39 01/02/18 05:39 Labs: Short CBC 01/02/18 Range/Units 05:39 WBC 8.2 (4.3-11.1) K/mcL Hgb 8.7 L (11.5-15.4) g/dL Hct 26.6 L (35.3-44.9) % Plt Count 152 (140-400) K/mcL [facility] 01/01/18 01/02/18 14:39 05:39 Sodium 135 L Potassium 5.7 H 5.7 H Chloride 102 Carbon Dioxide 26 BUN 30 H Creatinine 2.24 H Glucose 383 H Calcium 7.8 L - ABG Interpretation ABG results: PT/INR, D-dimer PT 13.7 Seconds (9.4-12.1) H 12/25/17 05:35 - Impressions Impressions Guidance Ultrasound 01/01/18 00:00 IMPRESSION: Successful fluoroscopic guided and ultrasound-guided placement of a right common femoral approach temporary hemodialysis catheter. Successful removal of the temporary left internal jugular venous catheter. D/ / Saulo Syed MD / Saulo Syed MD Interpreting Provider: Saulo Syed MD Insertion Non-Tunneled Catheter 01/01/18 00:00 IMPRESSION: Successful fluoroscopic guided and ultrasound-guided placement of a right common femoral approach temporary hemodialysis catheter. Successful removal of the temporary left internal jugular venous catheter. D/ / Saulo Syed MD / Saulo Syed MD Interpreting Provider: Saulo Syed MD - VTE Documentation of Mechanical Device: Intermittent pneumatic compression device Consult Discharge Plan - Plan Referrals: Macario Diallo MD [Primary Care Provider] - Cruzito Alan DO [Partnered Physician] - 01/08/18 10:15 am
[2018-01-02] MEDS ORDERED: 0.9 % Sodium Chloride 250 ML IVC PRN (09:57)
[2018-01-02] MEDS ORDERED: 0.9 % Sodium Chloride 1,000 ML PRIME SCH (10:00)
--- NOTE | 2018-01-02 11:30 | Nephrology Progress Note ---
Date of Encounter: 01/02/18 Time of Encounter: 12:00 - Assessment and Plan (1) CKD (chronic kidney disease) stage 5, GFR less than 15 ml/min Status: Acute New start ESRD HD with UF planned today for a more complete treatment. SCr improved after yesterday's session Continue renal diet Will plan for mcfp HD by next week if no significant and consistent improvement in renal fxn, will need permcath and outpatient HD placement at that time Continue to avoid nephrotoxins if possible Will monitor UOP closely (2) Hyperkalemia Status: Acute Potassium noted elevated at 5.7 despite HD yesterday, will dialyze today with 1k bath for the first hour and then to 2k bath for the last 2 hrs Renal diet advised (3) Anemia Status: Acute Hgb stable at 8-9, should improve mcfp with EPO Qualifiers: Anemia type: due to chronic kidney disease Chronic kidney disease stage: stage 5, not on chronic dialysis Qualified Code(s): N18.5 - Chronic kidney disease, stage 5; D63.1 - Anemia in chronic kidney disease (4) Hyponatremia Status: Chronic Normalized at 135 after HD yesterday, will continue salt tabs for now (5) Hydronephrosis Status: Chronic s/p ureteral stents per urology, UOP great today and yesterday, will monitor Qualifiers: Hydronephrosis type: other Qualified Code(s): N13.39 - Other hydronephrosis Subjective Principal diagnosis: hypotension Interval history: Interim events noted, temp HD line did not work at HD yesterday and a new femoral line was placed with subsequent 2hr long HD done yesterday. pt seen and examined Objective - Vital Signs Vital signs: Vital Signs Temp Pulse Resp BP Pulse Ox 01/02/18 07:38 98 F 88 15 124/62 95 01/02/18 04:52 98 F 63 16 127/67 96 01/02/18 00:14 98.2 F 93 16 116/66 98 01/01/18 23:53 97.6 F 84 16 120/84 98 01/01/18 23:06 97.7 F 87 16 123/64 98 01/01/18 22:57 97.2 F L 18 120/56 01/01/18 22:40 93/54 01/01/18 22:25 90/50 01/01/18 22:10 101/56 01/01/18 21:55 100/51 01/01/18 21:40 103/54 01/01/18 21:25 98/51 01/01/18 21:10 106/51 01/01/18 20:55 100/51 01/01/18 20:40 111/79 01/01/18 20:25 150/73 01/01/18 20:10 96.8 F L 18 145/75 01/01/18 20:01 97.6 F 78 16 131/67 100 01/01/18 19:15 97 01/01/18 15:00 98.3 F 18 137/65 01/01/18 14:30 127/67 01/01/18 14:15 177/79 Intake and Output 01/01/18 01/02/18 01/02/18 23:59 07:59 15:59 Intake Total 600 / 600 240 / 240 480 / 480 Output Total 3550 / 3550 375 / 375 Balance -2950 / -2950 -135 / -135 480 / 480 Intake: Oral 0 / 0 240 / 240 480 / 480 Intake, Rinseback and Flushes 600 / 600 Output: Urine 0 / 0 Total Dialysis (HD) Output 2600 / 2600 Catheter 950 / 950 375 / 375 Other: Meal Breakfast Percent of Meal Consumed 75% # Urine Diapers 0 # Bowel Movement Diapers 1 Weight 58.2 kg 58.2 kg Blood Glucose* 377 375 Hemodialysis Net Fluid Removed 2000 (mL) Patient Weight 01/02/18 23:59 Weight 58.2 kg - General Appearance General appearance: Present: chronically ill (NAD) EENT: Present: ATNC, mucous membranes moist Neck: Present: no JVD, supple Respiratory: Present: clear Cardiology: Present: no edema, normal S1, normal S2 Gastrointestinal: Present: no tenderness, no guarding Integumentary: Present: warm and dry Neurologic: Present: no focal deficit Musculoskeletal: Present: no deformities Psychiatric: Present: mood/affect appropriate - Lab 01/08/18 06:34 01/08/18 06:34 Most recent lab results Calcium 7.8 mg/dL (8.6-10.3) L 01/02/18 05:39 Phosphorus 4.3 mg/dL (2.7-4.5) 12/24/17 09:09 Magnesium 1.7 mg/dL (1.6-2.6) 12/24/17 09:09 - VTE Documentation of Mechanical Device: Intermittent pneumatic compression device Consult Discharge Plan - Plan Instructions: Folic Acid (By mouth), Viral Pneumonia (DC), Clostridium Difficile Infection (DC) Additional Instructions: First dialysis appointment will be on ThursdayJanuary [address] [facility]. Please arrive at 4:00 PM. Address: [address] [place] [address]. Referrals: Macario Diallo MD [Primary Care Provider] - Cruzito Alan DO [Partnered Physician] - 01/08/18 10:15 am Prescriptions: Folic Acid 1 mg PO DAILY 30 Days #30 tab Renal Vitamin [Renal Caps Softgel] 1 mg PO DAILY 30 Days #30 capsule
[2018-01-02] MEDS: Cholecalciferol (D-3) 1,000 UNIT TABLET PO SCH (13:22)
[2018-01-02] MEDS: Aspirin Enteric Coated 81 MG Tablet PO SCH (13:23)
[2018-01-02] MEDS: Folic Acid 1 MG TABLET PO SCH (13:23)
[2018-01-02] MEDS: Methyl Salicylate/Menthol 28 GM TUBE TP PRN (18:13)
[2018-01-02] MEDS: Leptospermum Honey GEL 1 APPL/5 ML MLS TP SCH ×2 (18:14→20:23)
[2018-01-02] MEDS: Insulin DETEMIR 100 UNIT/ML X5UNITS SQ SCH (20:31)
[2018-01-03] MEDS: *HR* Heparin 5,000 UNIT/ML VIAL SQ SCH ×2 (05:53→17:32)
[2018-01-03 06:00] LABS: Hematocrit 23.5 % (35.3-44.9); Hemoglobin 7.4 g/dL (11.5-15.4); Mean Corpuscular HGB Conc 31.5 g/dL (31.6-35.5); Mean Corpuscular Hemoglobin 27.8 pg (28.0-33.3); Mean Corpuscular Volume 88.3 fL (83.0-100.0); Mean Platelet Volume 10.3 fL (9.4-12.4); Platelet Count 160 K/mcL (140-400); Red Blood Count 2.66 M/mcL (3.82-4.97); Red Cell Distribution Width 14.2 % (11.5-14.5)
[2018-01-03 06:25] LABS: Calcium 7.9 mg/dL (8.6-10.3); Potassium 4.3 mEq/L (3.5-5.1)
--- NOTE | 2018-01-03 09:29 | Discharge Summary ---
Orders not resulted at time of discharge: Pending orders 01/04/18 04:00 Chem 7 [Basic Metabolic Panel] AM 0400 Complete Blood Count w/o Diff [HEME] AM 0400 01/05/18 04:00 Chem 7 [Basic Metabolic Panel] AM 0400 Complete Blood Count w/o Diff [HEME] AM 0400 01/06/18 04:00 Chem 7 [Basic Metabolic Panel] AM 0400 Complete Blood Count w/o Diff [HEME] AM 0400 Date of Encounter: 01/03/18 Time of Encounter: 08:30 - Discharge Diagnosis (1) Acute kidney injury superimposed on chronic kidney disease Priority: Primary Status: Acute Assessment and Plan: Patient has a history of chronic obstructive renal disease. She was placed on chronic Madden catheter and plan for hemodialysis if kidney function does not improve. On admission cr 4.9, is gradually improving. - Continue careful IV fluid hydration - Avoid the nephrotoxic medications - Strict I/Os - Nephrology consulted, recommendations appreciated. No dialysis today 12/29: Continue to hold nephrotoxins. Urology placed bilateral ureteral stents today with hopes that this may improve her renal function. Nephrology is following. Plans for hemodialysis catheter to be placed today or tomorrow. 12/30: Postop today due to bilateral ureteral stents. Management is per nephrology. Temporary hemodialysis catheter exchange today. Plans for hemodialysis as per nephrology. 01/01: Potassium elevated today. Patient underwent hemodialysis. Her creatinine is improving, hopefully related to placement of bilateral ureteral stents Discussed the case with Dr. Meza in nephrology today 01/02: HD unclear at this point whether this is temporary or whether she will need a permacath for permanent dialysis 01/03: Creatinine continues to improve. Urine output improving. Given renal improvement, she may not need permacath and assisted dialysis. We will await final word from nephrology. (2) Diabetes mellitus Priority: Secondary Status: Chronic Assessment and Plan: 01/03: Isnulin Dependent Type 2 DM Blood sugar is elevated. Patient has been refusing insulin at times. Will attempt to convince her to take insulin. Blood sugars remain elevated. 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 Patient is on by mouth sodium chloride pills, will continue Borderline to normal range in past several days. Management per Nephrology 01/01: Improved, As per nephrology Was in part due to elevated blood sugar (4) HTN (hypertension) Priority: Secondary Status: Chronic Assessment and Plan: SBP now running 140-160s, metoprolol resumed, will monitor. Was holding initially metoprolol because of suspected severe bradycardia on telemetry, though this turned out not a true bradycardia 12/30: Blood pressure overall stable. Monitor. 12/31: Mildly elevated today. Although she is scheduled for hemodialysis. No medication changes. Monitor 01/01: Improving Patient is on Lopressor 12.5 mg by mouth twice a day. IV hydralazine when necessary. 01/03: Blood pressure improved Lopressor 12.5 mg by mouth twice a day Qualifiers: Hypertension type: essential hypertension Qualified Code(s): I10 - Essential (primary) hypertension (5) DVT prophylaxis Priority: Secondary Status: Acute (6) Clostridium difficile colitis Priority: Secondary Status: Suspected Assessment and Plan: Likely cause for n/v, diarrhea, Continue PO vancomycin 01/03: Day #7 of 10 days total therapy Vancomycin 125 mg po QID.. Diarrhea has resolved. (7) Nausea vomiting and diarrhea Priority: Secondary Status: Acute Assessment and Plan: - ADAT; Currently clear liquid diet. Still complaints of nausea/vomiting. - Possible etiologies based on her history: uremia, C diff colitis, UTI - Symptomatic treatment for nausea and vomiting - ADAT - Nephrology for management of MERNA on CKD, continue IV antibiotics, continue oral vancomycin, follow-up cultures. 12/30: Resolved (8) CKD (chronic kidney disease) stage 5, GFR less than 15 ml/min Priority: Secondary Status: Acute Assessment and Plan: Management as above (9) Bradycardia Priority: Secondary Status: Acute Assessment and Plan: Unsure if this is asymptomatic or symptomatic as patient does complain of epigastric discomfort and nausea, however she describes more reflux-like symptoms and she may have a gastroenteritis. I reviewed telemetry strip from 0900 and it was 28 bpm. A stat ECG done now showed a sinus rhythm with HR 78 bpm, no ST/T wave changes that I can appreciate. Otherwise does have many PVCs. I would like Cardiology to review this as well . Called Cardiology on 12/24 and a review of telemetry Hotel Service Manager Dr. Zambrano noted that this is not true bradycardia on telemetry. If there remains question, Cardiology will be consulted. HR currently normal Low dose metoprolol was resumed without issue 01/03: Tolerating beta raul well (10) Hypothermia Priority: Secondary Status: Acute Assessment and Plan: Unsure of cause - TSH, serum cortisol level wnl - resolved Qualifiers: Encounter type: initial encounter Qualified Code(s): T68.XXXA - Hypothermia , initial encounter (11) Sepsis Priority: Primary Status: Acute Assessment and Plan: Today patient had 3 SIRS criteria; tachycardia (though she did refuse metoprolol this AM), leukocytosis of 14k, and fever of 100.6 F Likely UTI related, but cannot exclude other etiologies. Might have worsening C diff as she is refusing PO vancomycin. Patient had some improvement on Zosyn but after de-escalating therapy to Rocephin, patient. Given she was recently in a hospital and currently not much activity should rule out pneumonia as well. Repeat blood cultures, urine cultures, repeat imaging for any source of infection. Close monitoring of vital signs Escalate antibiotic therapy back to Zosyn 12/30: As above. Vitals are stable. Afebrile today. Monitor. 01/01: Resolved. Zosyn was stopped 01/03: Sepsis due to UTI with obx uropathy s/p Bilateral Ureteral stents on 12/29/17, as well as Sepsis due to C. Diff Colitis, present on admission, sepsis now resolved Patient is off antibiotics with the exception of enteric vancomycin for C. difficile colitis (Day #7 of 10 days total). She is doing well. I would strongly consider empiric treatment for C. difficile in the future should she ever require antibiotics. Qualifiers: Sepsis type: sepsis due to unspecified organism Qualified Code(s): A41.9 - Sepsis, unspecified organism (12) Obstructive uropathy Priority: Primary Status: Chronic Assessment and Plan: Status post bilateral ureteral stents on December 29. Patient has been improved since this time. Renal function is improving. Hospital course: Hospital Course: 12/22-01/03/18: Ms. Lacy is a 72 year old female with multiple medical problems including chronic kidney disease stage III, insulin-dependent diabetestype II, hypertension, hyperlipidemia. she also has a history of urinary retention and for the last several months has had a Madden catheter, chronic. Patient presented to the hospital on December 22 with nausea and vomiting, and a sepsis picture She was noted to be in acute renal failure, worse than her chronic kidney disease. Her creatinine was 4.93, BUN of 102. She also had diarrhea at the time. Workup included a CT abdomen and pelvis without contrast showed concerns for gastroenteritis. Patient was also diagnosed with a catheter associated UTI. Patient was admitted. She initially was started on cefepime renally dosed. Prior urine cultures growing out Citrobacter frenndiisensitive to cefepime. Patient was treated with IV antibiotics for a total of 8 days while in the hospital. She was transitioned to Zosyn, up until day 8 of IV antibiotics and these were stopped. Urine culture was negative with the exception of yeast. Blood cultures were negative. Patient had numerous procedures and numerous consultants involved. Urology: Placement of bilateral ureteral stents on December 29. She was responding well to this. Renal function is improving. Nephrology: Patient had a left IJ temporary vas catheter placed for hemodialysis. She was originally placed on December 25, then it was exchanged as it was kinked and replaced on December 30 and again on December 31. Now is functioning well. Cardiology: Patient had chest pain and mildly elevated troponins. This was not felt to be due to ischemia. She had delayed clearance of her troponin due to renal failure. Echocardiogram: LVEF of 55%. No significant abnormalities with significant exception of mild concentric LVH. Patient is doing well today. She is tolerating good oral diet. Her creatinine continues to improve to a level of 2.14 today. Continues on hemodialysis, as recommended by nephrology. We are waiting further decisions whether or not to pull her vas catheter versus continued dialysis. If she has her vas cath pulled she will be stable for discharge to a facility. If she still needs dialysis about alternative arrangements will be made for a facility that allows for dialysis. Otherwise all patient's issues are improved and stabilizing. As mentioned she is day 7 of a planned 10 day course of empiric vancomycin for C. difficile colitis. Her symptoms have resolved, therefore I would elect to a 10 day course as opposed to a 14 day course. Additionally given her need for chronic Madden catheter, I would strongly recommend monthly Madden catheter changes and administration of 3 g of fosfomycin by mouth along with each catheter change. Discharge discussed with: patient - Time Spent with Patient Total time spent providing and/or coordinating discharge services: Greater than 30 minutes (38) - Discharge Medications Home Medications: Metoprolol [Lopressor] 12.5 mg PO BID 03/01/16 [History] Aspirin Enteric Coated [Aspirin EC] 81 mg PO DAILY 08/04/17 [History] Oxygen 2 l NS AD 08/04/17 [History] Gabapentin [Neurontin] 100 mg PO BID 09/17/17 [History] Ferrous Sulfate 325 mg PO BID 10/28/17 [History] Ondansetron HCl [Zofran] 4 mg PO TID PRN 10/28/17 [History] Pravastatin Sodium [Pravachol] 10 mg PO HS 10/28/17 [History] Cholecalciferol (Vitamin D3) [Vitamin D3] 1,000 unit PO DAILY 11/16/17 [History] Insulin Glargine,Hum.rec.anlog [Basaglar Kwikpen U-100] 40 unit SQ HS 11/16/17 [ History] Insulin ASPART [NovoLOG] 20 unit SQ TIDWM 12/22/17 [History] Sodium Chloride 1 gm PO BID 12/22/17 [History] Allergies/Adverse Reactions: 3 Allergy/AdvReac Type Severity Reaction Status Date / Time acetaminophen [From Tylenol] Allergy See Verified 12/22/17 19:03 Comments Influenza Virus Vaccines Allergy See Verified 12/22/17 19:03 Comments Date of admission: 12/22/17 21:33 Primary care physician: Macario Diallo MD Consults: 12/23/17 13:12 Consult to Nephrology [CONS] Routine Consulting Provider: Kidney Isis/SHAINA/FARTUN/HEAVEN Reason for Consult: MERNA/CKD, known to group. Call Completed: Yes 12/25/17 09:52 Consult to Interventional Radiology [CONS] Routine Consulting Provider: Radiology Interventional Cols Reason for Consult: Please place Tunneled HD line if able, if not temporary HD line. Thanks Call Completed: No 12/26/17 10:00 Consult to Dialysis [CONS] ONCE 12/28/17 11:51 Consult to Occupational Therapy [CONS] Routine Comment: Evaluate, develop and implement POC Reason for Consult: Evaluate, develop and implement POC Does patient have active BEDREST order?: No Is patient medically & hemodynamically stable?: Yes 12/28/17 15:04 Consult to Urology [CONS] Routine Consulting Provider: Urology Isis Reason for Consult: Chronic hydronephosis UTI Call Completed: Yes 12/29/17 12:08 Consult to Interventional Radiology [CONS] Routine Consulting Provider: Radiology Interventional Cols Reason for Consult: Please exchange for another temp. line, it is not functioning for HD. Thanks. Time Notified: 12:09 Call Completed: Yes 12/30/17 10:30 Consult to Dialysis [CONS] ONCE 12/30/17 12:30 Consult to Wound Care [CONS] Routine Reason for Consult: Rt heel pressure ulcer treatment. Time Notified: 12:32 Call Completed: Yes 12/31/17 09:15 Consult to Dialysis [CONS] ONCE 12/31/17 12:45 Consult to Interventional Radiology [CONS] Routine Consulting Provider: Radiology Interventional Cols Reason for Consult: Please exchange hemodialysis catheter Time Notified: 12:45 Call Completed: Yes 12/31/17 14:49 Consult to Cardiology [CONS] Routine Comment: Consulting Provider: Cardiology Isis Reason for Consult: chest pain Time Notified: 14:50 Call Completed: Yes 01/01/18 09:30 Consult to Dialysis [CONS] ONCE 01/02/18 10:00 Consult to Dialysis [CONS] ONCE Discharging clinician: Anthony Barajas Anticipated date of discharge: 01/06/18 - Constitutional Vitals: Temp Pulse Resp BP Pulse Ox 98.1 F 90 16 136/71 92 01/03/18 08:28 01/03/18 08:28 01/03/18 08:28 01/03/18 08:28 01/03/18 08:28 General appearance: Present: A&O X 3, no acute distress, answers questions appropriately Exam: Very hard of hearing - Head Head exam: Present: atraumatic, normocephalic - Eye Eye exam: Present: PERRL, conjuntiva pink, sclera anicteric Pupils: Present: PERRL - Neck Neck exam general surgery: Present: supple, trachea midline. Absent: lymphadenopathy Additional comments: Left internal jugular vas catheter in place - Respiratory Respiratory exam: Present: CTAB. Absent: accessory muscle use, rales, rhonchi, wheezes - Cardiovascular Cardiovascular exam: Present: RRR, +S1, +S2. Absent: diastolic murmur, gallop, rubs, systolic murmur - GI/Abdominal GI/Abdominal exam: Present: normal bowel sounds, soft, no peritoneal signs. Absent: distended, tenderness - Extremities Exam Extremities exam: Present: warm, radial pulses palpable and symmetrical. Absent : calf tenderness, cyanotic, pedal edema - Neurological Exam Neurological exam: Present: CN II-XII intact, oriented X3, no focal deficits. Absent: pronater drift, facial droop, speech deficit - Skin Skin exam: Present: dry, intact - Patient Status Disposition: Transfer SNF Condition: Fair - Discharge Instructions Follow Up With: Macario Diallo MD [Primary Care Provider] - Cruzito Alan DO [Partnered Physician] - 01/08/18 10:15 am - Diet and Activity Activity: as per physical therapy Diet: advance to your usual diet - VTE Documentation of Mechanical Device: Intermittent pneumatic compression device
[2018-01-03] MEDS: Insulin LISPRO 300 UNITS/3 ML VIAL SQ SCH ×4 (09:49→23:17)
[2018-01-03] MEDS: Vancomycin Oral Soln 125 MG/2.5 ML UDC PO SCH ×4 (09:50→23:34)
[2018-01-03] MEDS: Leptospermum Honey GEL 1 APPL/5 ML MLS TP SCH ×2 (09:52→23:42)
[2018-01-03] MEDS: Folic Acid 1 MG TABLET PO SCH (09:53)
[2018-01-03] MEDS: Aspirin Enteric Coated 81 MG Tablet PO SCH (09:53)
[2018-01-03] MEDS: Lactobacillus 1 EACH CAP.SPRINK PO SCH (09:53)
[2018-01-03] MEDS: Renal Vitamin 1 MG CAPSULE PO SCH (09:54)
[2018-01-03] MEDS: Cholecalciferol (D-3) 1,000 UNIT TABLET PO SCH (09:55)
--- NOTE | 2018-01-03 11:02 | Electrocardiograph Report ---
[address] [place], [place] [address] Test Date: 2017-12-31 Pat Name: Lisa Lacy Department: 115 Room: 3A12 Gender: F Service Team Leader: NADYA : 1945 Requested By: Clarisa Lo Order Number: [id number] Reading MD: Fawad Gutierrez Measurements Intervals [place] Rate: 85 P: 3 W[place]: 163 QRS: -2 QRSD: 106 T: 143 QT: 364 QTc: 406 Interpretive Statements SINUS RHYTHM WITH FREQUENT VENTRICULAR PREMATURE COMPLEXES ST DEVIATION AND MODERATE T-WAVE ABNORMALITY, CONSIDER LATERAL ISCHEMIA Electronically Signed On 01-03-2018 11:00:20 EDT by Fawad Gutierrez
--- NOTE | 2018-01-03 12:03 | Nephrology Progress Note ---
Date of Encounter: 01/03/18 Time of Encounter: 12:00 - Assessment and Plan (1) CKD (chronic kidney disease) stage 5, GFR less than 15 ml/min Current Visit: No Status: Acute New start ESRD HD with UF planned today for a more complete treatment. SCr improved after yesterday's session Continue renal diet Will plan for medical terminologist HD by next week if no significant and consistent improvement in renal fxn, will need permcath and outpatient HD placement at that time Continue to avoid nephrotoxins if possible Will monitor UOP closely (2) Hyperkalemia Current Visit: Yes Status: Acute Potassium noted elevated at 5.7 despite HD yesterday, will dialyze today with 1k bath for the first hour and then to 2k bath for the last 2 hrs Renal diet advised (3) Anemia Current Visit: No Status: Acute Hgb stable at 8-9, should improve medical terminologist with EPO Qualifiers: Anemia type: due to chronic kidney disease Chronic kidney disease stage: stage 5, not on chronic dialysis Qualified Code(s): N18.5 - Chronic kidney disease, stage 5; D63.1 - Anemia in chronic kidney disease (4) Hyponatremia Current Visit: No Status: Acute Normalized at 135 after HD yesterday, will continue salt tabs for now (5) Hydronephrosis Current Visit: No Status: Chronic s/p ureteral stents per urology, UOP great today and yesterday, will monitor Qualifiers: Hydronephrosis type: other Qualified Code(s): N13.39 - Other hydronephrosis Subjective Principal diagnosis: hypotension Interval history: Interim events noted, temp HD line did not work at HD yesterday and a new femoral line was placed with subsequent 2hr long HD done yesterday. pt seen and examined Objective - Vital Signs Vital signs: Vital Signs Temp Pulse Resp BP Pulse Ox 01/03/18 08:28 98.1 F 90 16 136/71 92 01/03/18 03:00 98.8 F 73 16 137/78 94 01/02/18 23:23 98.6 F 54 16 146/73 96 01/02/18 21:00 99.4 F 86 16 135/72 97 01/02/18 18:00 98.8 F 84 16 105/60 95 01/02/18 16:14 97.6 F 84 16 134/64 99 01/02/18 13:28 97.3 F L 83 18 139/61 100 01/02/18 12:50 98.1 F 18 121/64 01/02/18 12:30 111/66 01/02/18 12:15 109/58 Intake and Output 01/02/18 01/03/18 01/03/18 23:59 07:59 15:59 Intake Total 120 / 120 120 / 120 Output Total 700 / 700 600 / 600 Balance -580 / -580 -480 / -480 Intake: Oral 120 / 120 120 / 120 Output: Catheter 700 / 700 600 / 600 Other: Stool Size Large # Bowel Movement Diapers 1 Weight 58.4 kg Blood Glucose* [id number] Patient Weight 01/03/18 23:59 Weight 58.4 kg - Lab 01/03/18 05:49 01/03/18 05:49 Most recent lab results Calcium 7.9 mg/dL (8.6-10.3) L 01/03/18 05:49 Phosphorus 4.3 mg/dL (2.7-4.5) 12/24/17 09:09 Magnesium 1.7 mg/dL (1.6-2.6) 12/24/17 09:09 - VTE Documentation of Mechanical Device: Intermittent pneumatic compression device Consult Discharge Plan - Plan Referrals: Macario Diallo MD [Primary Care Provider] - Cruzito Alan DO [Partnered Physician] - 01/08/18 10:15 am
[2018-01-03] MEDS: Insulin DETEMIR 100 UNIT/ML X5UNITS SQ SCH (23:18)
[2018-01-04] MEDS: *HR* Heparin 5,000 UNIT/ML VIAL SQ SCH ×2 (06:20→17:55)
[2018-01-04] MEDS ORDERED: 0.9 % Sodium Chloride 1,000 ML ONE (06:43)
[2018-01-04] MEDS: Vancomycin Oral Soln 125 MG/2.5 ML UDC PO SCH ×4 (08:02→23:00)
[2018-01-04] MEDS: Insulin LISPRO 300 UNITS/3 ML VIAL SQ SCH ×4 (08:03→23:00)
[2018-01-04] MEDS: Lactobacillus 1 EACH CAP.SPRINK PO SCH (08:04)
[2018-01-04] MEDS: Folic Acid 1 MG TABLET PO SCH (08:04)
[2018-01-04] MEDS: Leptospermum Honey GEL 1 APPL/5 ML MLS TP SCH ×2 (08:04→23:01)
[2018-01-04] MEDS: Aspirin Enteric Coated 81 MG Tablet PO SCH (08:04)
[2018-01-04] MEDS: Cholecalciferol (D-3) 1,000 UNIT TABLET PO SCH (08:05)
[2018-01-04] MEDS: Renal Vitamin 1 MG CAPSULE PO SCH (08:05)
[2018-01-04 08:08] LABS: Hematocrit 23.4 % (35.3-44.9); Hemoglobin 7.5 g/dL (11.5-15.4); Mean Corpuscular HGB Conc 32.1 g/dL (31.6-35.5); Mean Corpuscular Hemoglobin 28.1 pg (28.0-33.3); Mean Corpuscular Volume 87.6 fL (83.0-100.0); Mean Platelet Volume 9.8 fL (9.4-12.4); Platelet Count 174 K/mcL (140-400); Red Blood Count 2.67 M/mcL (3.82-4.97); Red Cell Distribution Width 14.1 % (11.5-14.5)
[2018-01-04 08:24] LABS: Calcium 8.1 mg/dL (8.6-10.3)
[2018-01-04] MEDS ORDERED: *HR* Heparin 10,000 UNIT/10 ML VIAL IV PRN (09:28)
[2018-01-04] MEDS ORDERED: 0.9 % Sodium Chloride 250 ML IVC PRN (09:28)
--- NOTE | 2018-01-04 12:32 | Nephrology Progress Note ---
Date of Encounter: 01/04/18 Time of Encounter: 12:25 - Assessment and Plan (1) Acute kidney injury superimposed on chronic kidney disease Current Visit: No Status: Acute HD ordered for today. Continue to avoid nephrotoxins and renal dose medications. IR consult placed for Tunneled HD catheter. Physician Interventional Cardiologist consult placed for Chair time at [facility]. 1 unit Blood ordered to be given with HD. (2) Anemia Current Visit: No Status: Acute Goal Hgb 10-11. Hgb 7.5 1 unit PRBCS ordered for HD. Will order Iron profile if not already done. Qualifiers: Anemia type: due to chronic kidney disease Chronic kidney disease stage: stage 5, not on chronic dialysis Qualified Code(s): N18.5 - Chronic kidney disease, stage 5; D63.1 - Anemia in chronic kidney disease (3) PNA (pneumonia) Current Visit: Yes Status: Acute Per primary team. Qualifiers: Pneumonia type: due to unspecified organism Laterality: right Lung location: upper lobe of lung Qualified Code(s): J18.1 - Lobar pneumonia, unspecified organism (4) UTI (urinary tract infection) Current Visit: Yes Status: Acute Per primary team. Madden Catheter in place. Qualifiers: Urinary tract infection type: site unspecified Hematuria presence: without hematuria Qualified Code(s): N39.0 - Urinary tract infection, site not specified (5) Generalized weakness Current Visit: Yes Status: Acute Per primary team. Subjective Principal diagnosis: hypotension Interval history: Pt seen and examined, denies CP/SOB. HD ordered for today. Objective - Vital Signs Vital signs: Vital Signs Temp Pulse Resp BP Pulse Ox 01/04/18 11:02 98.6 F 98 16 115/71 94 01/04/18 05:41 99.5 F 107 17 106/62 91 01/03/18 23:44 99 01/03/18 20:24 98.1 F 85 17 122/70 99 01/03/18 12:32 98.2 F 81 16 152/78 96 Intake and Output 01/03/18 01/04/18 01/04/18 23:59 07:59 15:59 Intake Total 30 / 30 Output Total 1150 / 1150 0 / 0 Balance -1150 / -1150 30 / 30 Intake: Oral 30 / 30 Output: Catheter 1150 / 1150 0 / 0 Other: Meal REFUSED BREAKFAST Percent of Meal Consumed 0% Stool Size Moderate Large Stool Consistency loose loose soft Stool Color Brown Brown # Bowel Movement Diapers 1 Blood Glucose* [phone] - General Appearance General appearance: Present: chronically ill, frail EENT: Present: ATNC, hearing intact, vision intact Respiratory: Present: clear Cardiology: Present: no edema, normal S1, normal S2 Dialysis Vascular Access: Venous Catheter (Temp line right groin, DRSG C/D/I.) Gastrointestinal: Present: normoactive bowel sounds, no tenderness, no guarding Integumentary: Present: no rash, warm and dry Neurologic: Present: alert and oriented x3 Psychiatric: Present: mood/affect appropriate, cooperative - Lab 01/04/18 04:00 01/04/18 04:00 Most recent lab results Calcium 8.1 mg/dL (8.6-10.3) L 01/04/18 04:00 Phosphorus 4.3 mg/dL (2.7-4.5) 12/24/17 09:09 Magnesium 1.7 mg/dL (1.6-2.6) 12/24/17 09:09 - VTE Documentation of Mechanical Device: Intermittent pneumatic compression device Consult Discharge Plan - Plan Referrals: Macario Diallo MD [Primary Care Provider] - Cruzito Alan DO [Partnered Physician] - 01/08/18 10:15 am
--- NOTE | 2018-01-04 12:41 | Internal Med Progress Note ---
Date of Encounter: 01/04/18 Time of Encounter: 12:39 - Assessment and plan (1) Diabetes mellitus Current Visit: No Status: Chronic Assessment and plan: 01/03: Isnulin Dependent Type 2 DM Blood sugar is elevated. Patient has been refusing insulin at times. Will attempt to convince her to take insulin. Blood sugars remain elevated. Currently: Levemir 45 untis sub daily SSI 01/04/2018-patient has been continuing to refuse insulin at times. I have educated her again regarding taking her medications. 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 Patient is on by mouth sodium chloride pills, will continue Borderline to normal range in past several days. Management per Nephrology 01/01: Improved, As per nephrology Was in part due to elevated blood sugar 01/04/2018-stable. Continue to monitor (3) HTN (hypertension) Current Visit: No Status: Chronic Assessment and plan: SBP now running 140-160s, metoprolol resumed, will monitor. Was holding initially metoprolol because of suspected severe bradycardia on telemetry, though this turned out not a true bradycardia 12/30: Blood pressure overall stable. Monitor. 12/31: Mildly elevated today. Although she is scheduled for hemodialysis. No medication changes. Monitor 01/01: Improving Patient is on Lopressor 12.5 mg by mouth twice a day. IV hydralazine when necessary. 01/03: Blood pressure improved Lopressor 12.5 mg by mouth twice a day 01/04/2018-blood pressure stable. Continue to monitor Lopressor Qualifiers: Hypertension type: essential hypertension Qualified Code(s): I10 - Essential (primary) hypertension (4) DVT prophylaxis Current Visit: No Status: Acute Assessment and plan: Heparin subcutaneously (5) Clostridium difficile colitis Current Visit: No Status: Suspected Assessment and plan: Likely cause for n/v, diarrhea, Continue PO vancomycin 01/04 Day #7 of 10 days total therapy Vancomycin 125 mg po QID.. Diarrhea has resolved. However the patient did refuse a few days of vancomycin therapy and hence her neck number of days comes down to 7 .I will continue her on total 10 days of duration. (6) Obstructive uropathy Current Visit: No Status: Chronic Assessment and plan: Status post bilateral ureteral stents on December 29. Patient has been improved since this time. Renal function is improving. (7) Nausea vomiting and diarrhea Current Visit: No Status: Acute (8) Acute kidney injury superimposed on chronic kidney disease Current Visit: No Status: Acute Assessment and plan: Patient has a history of chronic obstructive renal disease. She was placed on chronic Madden catheter and plan for hemodialysis if kidney function does not improve. On admission cr 4.9, is gradually improving. - Continue careful IV fluid hydration - Avoid the nephrotoxic medications - Strict I/Os - Nephrology consulted, recommendations appreciated. No dialysis today 12/29: Continue to hold nephrotoxins. Urology placed bilateral ureteral stents today with hopes that this may improve her renal function. Nephrology is following. Plans for hemodialysis catheter to be placed today or tomorrow. 12/30: Postop today due to bilateral ureteral stents. Management is per nephrology. Temporary hemodialysis catheter exchange today. Plans for hemodialysis as per nephrology. 01/01: Potassium elevated today. Patient underwent hemodialysis. Her creatinine is improving, hopefully related to placement of bilateral ureteral stents Discussed the case with Dr. Meza in nephrology today 01/02: HD unclear at this point whether this is temporary or whether she will need a permacath for permanent dialysis 01/03: Creatinine continues to improve. Urine output improving. Given renal improvement, she may not need permacath and watermaster dialysis. We will await final word from nephrology. 01/04/2018-appreciate follow from nephrology. Continue on hemodialysis today. Consult placed to interventional radiology for a tunnel dialysis catheter placement. Plans are in motion for outpatient calluses set up (9) CKD (chronic kidney disease) stage 5, GFR less than 15 ml/min Current Visit: No Status: Acute Assessment and plan: Management as above (10) Bradycardia Current Visit: Yes Status: Resolved Assessment and plan: Unsure if this is asymptomatic or symptomatic as patient does complain of epigastric discomfort and nausea, however she describes more reflux-like symptoms and she may have a gastroenteritis. I reviewed telemetry strip from 0900 and it was 28 bpm. A stat ECG done now showed a sinus rhythm with HR 78 bpm, no ST/T wave changes that I can appreciate. Otherwise does have many PVCs. I would like Cardiology to review this as well . Called Cardiology on 12/24 and a review of telemetry Specialist Physicians Dr. Zambrano noted that this is not true bradycardia on telemetry. If there remains question, Cardiology will be consulted. HR currently normal Low dose metoprolol was resumed without issue 01/03: Tolerating beta raul well 01/04/2018-bradycardia is more or less resolved. However we will continue to monitor while on telemetry (11) Hypothermia Current Visit: Yes Status: Resolved Qualifiers: Encounter type: initial encounter Qualified Code(s): T68.XXXA - Hypothermia , initial encounter (12) Sepsis Current Visit: Yes Status: Resolved Assessment and plan: Today patient had 3 SIRS criteria; tachycardia (though she did refuse metoprolol this AM), leukocytosis of 14k, and fever of 100.6 F Likely UTI related, but cannot exclude other etiologies. Might have worsening C diff as she is refusing PO vancomycin. Patient had some improvement on Zosyn but after de-escalating therapy to Rocephin, patient. Given she was recently in a hospital and currently not much activity should rule out pneumonia as well. Repeat blood cultures, urine cultures, repeat imaging for any source of infection. Close monitoring of vital signs Escalate antibiotic therapy back to Zosyn 12/30: As above. Vitals are stable. Afebrile today. Monitor. 01/01: Resolved. Zosyn was stopped 01/03: Sepsis due to UTI with obx uropathy s/p Bilateral Ureteral stents on 12/29/17, as well as Sepsis due to C. Diff Colitis, present on admission, sepsis now resolved Patient is off antibiotics with the exception of enteric vancomycin for C. difficile colitis (Day #7 of 10 days total). She is doing well. I would strongly consider empiric treatment for C. difficile in the future should she ever require antibiotics. Qualifiers: Sepsis type: sepsis due to unspecified organism Qualified Code(s): A41.9 - Sepsis, unspecified organism - Time Spent With Patient Total time spent is greater than 50% in coordination of care (as documented) at patient's floor/unit and/or counseling patient: Greater than 35 minutes - Subjective Interval history: Patient denies any new shortness of breath, chest pain, diarrhea. She does have an issue with the medications and has been refusing her vancomycin off and on over the last week or so. - Constitutional Vitals: Temp Pulse Resp BP Pulse Ox 98.6 F 98 16 115/71 94 01/04/18 11:02 01/04/18 11:02 01/04/18 11:02 01/04/18 11:02 01/04/18 11:02 General appearance: Present: A&O X 3, no acute distress, answers questions appropriately Exam: General appearance: Present: A&O X 3, no acute distress, answers questions appropriately - Head Head exam: Present: atraumatic, normocephalic - Eye Eye exam: Present: PERRL, conjuntiva pink, sclera anicteric Pupils: Present: PERRL - Neck Neck exam general surgery: Present: supple, trachea midline. Absent: lymphadenopathy Additional comments: Dialysis catheter left-side of neck - Respiratory Respiratory exam: Present: CTAB. Absent: accessory muscle use, rales, rhonchi, wheezes - Cardiovascular Cardiovascular exam: Present: RRR, +S1, +S2. Absent: diastolic murmur, gallop, rubs, systolic murmur - GI/Abdominal GI/Abdominal exam: Present: normal bowel sounds, soft, no peritoneal signs. Absent: distended, tenderness - Extremities Exam Extremities exam: Present: warm, radial pulses palpable and symmetrical. Absent : calf tenderness, cyanotic, pedal edema - Neurological Exam Neurological exam: Present: CN II-XII intact, oriented X3, no focal deficits. Absent: pronater drift, facial droop, speech deficit - Skin Skin exam: Present: dry, intact Internal Medicine: Result - Labs CBC & Chem 7: 01/04/18 04:00 01/04/18 04:00 Labs: Short CBC 01/04/18 Range/Units 04:00 WBC 9.2 (4.3-11.1) K/mcL Hgb 7.5 L (11.5-15.4) g/dL Hct 23.4 L (35.3-44.9) % Plt Count 174 (140-400) K/mcL BMP 01/04/18 04:00 Sodium 133 L Potassium 5.0 Chloride 100 Carbon Dioxide 23 BUN 45 H Creatinine 3.08 H Glucose 334 H Calcium 8.1 L - ABG Interpretation ABG results: PT/INR, D-dimer PT 13.7 Seconds (9.4-12.1) H 12/25/17 05:35 - VTE Documentation of Mechanical Device: Intermittent pneumatic compression device Consult Discharge Plan - Plan Referrals: Macario Diallo MD [Primary Care Provider] - Cruzito Alan DO [Partnered Physician] - 01/08/18 10:15 am
[2018-01-04] MEDS: Insulin DETEMIR 100 UNIT/ML X5UNITS SQ SCH (23:01)
[2018-01-05 06:39] LABS: Hematocrit 25.9 % (35.3-44.9); Hemoglobin 8.6 g/dL (11.5-15.4); Mean Corpuscular HGB Conc 33.2 g/dL (31.6-35.5); Mean Corpuscular Hemoglobin 28.2 pg (28.0-33.3); Mean Corpuscular Volume 84.9 fL (83.0-100.0); Mean Platelet Volume 10.5 fL (9.4-12.4); Platelet Count 203 K/mcL (140-400); Red Blood Count 3.05 M/mcL (3.82-4.97); Red Cell Distribution Width 13.8 % (11.5-14.5)
[2018-01-05 06:56] LABS: Potassium 4.7 mEq/L (3.5-5.1)
[2018-01-05 07:13] LABS: Calcium 8.2 mg/dL (8.6-10.3)
[2018-01-05] MEDS: *HR* Heparin 5,000 UNIT/ML VIAL SQ SCH ×2 (07:39→17:43)
[2018-01-05] MEDS: Insulin LISPRO 300 UNITS/3 ML VIAL SQ SCH ×4 (08:10→21:26)
[2018-01-05] MEDS: Vancomycin Oral Soln 125 MG/2.5 ML UDC PO SCH (08:11)
[2018-01-05] MEDS: Leptospermum Honey GEL 1 APPL/5 ML MLS TP SCH ×2 (08:11→21:27)
[2018-01-05] MEDS: Lactobacillus 1 EACH CAP.SPRINK PO SCH (08:11)
[2018-01-05] MEDS: Aspirin Enteric Coated 81 MG Tablet PO SCH (08:11)
[2018-01-05] MEDS: Folic Acid 1 MG TABLET PO SCH (08:11)
[2018-01-05] MEDS: Renal Vitamin 1 MG CAPSULE PO SCH (08:12)
[2018-01-05] MEDS: Cholecalciferol (D-3) 1,000 UNIT TABLET PO SCH (08:12)
[2018-01-05] MEDS ORDERED: ceFAZolin 2,000 MG in 0.9 % Sodium Chloride 100 ML IVPB ONE (08:44)
[2018-01-05] MEDS ORDERED: *HR* Midazolam HCl 2 MG/2 ML VIAL IVP ONE (08:44)
[2018-01-05] MEDS ORDERED: *HR* FentaNYL (PF) 100 MCG/2 ML VIAL IVP ONE (08:44)
[2018-01-05] MEDS ORDERED: Heparin 1,000 UNITS/500 mL 500 ML ONE (09:01)
[2018-01-05] MEDS ORDERED: 0.9 % Sodium Chloride 500 ML ONE (09:10)
[2018-01-05] MEDS ORDERED: *HR* Heparin 5,000 UNIT/ML VIAL ONE (09:57)
[2018-01-05] MEDS ORDERED: CeFAZolin Premix DUPLEX 2,000 MG/50 ML BAG IVPB ONE (10:00)
--- NOTE | 2018-01-05 10:05 | IR Procedure Note ---
Date of procedure: 01/05/18 Consent Obtained: Verbal consent, Written consent Timeout: Correct patient and procedure verified, Correct site verified, Time out performed, Skin prep completed Local anesthetic: Lidocaine 1% Indications: ESRD Procedure Performed: R CFV temp HDC exchange to permcath Was there an press assistant present: No Estimated blood loss (cc): 5 Complications: None; Tolerated procedure well Post Procedure Treatment Plan: catheter ok to use Specimen: none
--- NOTE | 2018-01-05 10:05 | Pre-Sedation Evaluation ---
Pre-sedation evaluation - Pre-sedation checklist Date of procedure: 01/05/18 Procedure: permcath Recent Vitals: Last Vital Signs Temp 97.5 F L 01/05/18 08:20 Pulse 79 01/05/18 09:55 Resp 17 01/05/18 09:55 BP 135/63 01/05/18 09:55 Pulse Ox 99 01/05/18 09:55 H&P (including ROS) documented in medical record: Yes Dietary Status: NPO 6 hours prior to procedure Airway Assessment: Patient can open mouth completely, TMJ function normal, Micrognathia (under-bite, receding chin) absent, Neck with adequate range of motion ASA Classification *see protocol: CLASS II-Mild systemic disease Plan of Care: Pt appropriate candidate for procedure/moderate/conscious sedation , Risks/benefits of procedure/sedation discussed w/ patient/family, If not NPO; Risk of intake outweiged by necessity to perform procedure
[2018-01-05] MEDS: MetroNIDAZOLE 500 MG/100 ML 500 MG/100 ML BAG IVPB SCH ×2 (10:41→17:42)
--- NOTE | 2018-01-05 11:54 | Nephrology Progress Note ---
Date of Encounter: 01/05/18 Time of Encounter: 11:51 - Assessment and Plan (1) Acute kidney injury superimposed on chronic kidney disease Current Visit: No Status: Acute Continue to avoid nephrotoxins and renal dose medications. Tunneled Cath placed today. Industrial Photographer consult placed for Chair time at [facility]. (2) Anemia Current Visit: No Status: Acute GoaHgb 10-11. Hgb 8.6 Qualifiers: Anemia type: due to chronic kidney disease Chronic kidney disease stage: stage 5, not on chronic dialysis Qualified Code(s): N18.5 - Chronic kidney disease, stage 5; D63.1 - Anemia in chronic kidney disease (3) PNA (pneumonia) Current Visit: Yes Status: Acute Per primary team. Qualifiers: Pneumonia type: due to unspecified organism Laterality: right Lung location: upper lobe of lung Qualified Code(s): J18.1 - Lobar pneumonia, unspecified organism (4) UTI (urinary tract infection) Current Visit: Yes Status: Acute Per primary team. Madden Catheter in place. Qualifiers: Urinary tract infection type: site unspecified Hematuria presence: without hematuria Qualified Code(s): N39.0 - Urinary tract infection, site not specified (5) Generalized weakness Current Visit: Yes Status: Acute Per primary team. Subjective Principal diagnosis: hypotension Interval history: Pt seen and examined, denies CP/SOB. Objective - Vital Signs Vital signs: Vital Signs Temp Pulse Resp BP Pulse Ox 01/05/18 11:10 97.7 F 77 16 135/68 99 01/05/18 09:55 79 17 135/63 99 01/05/18 09:50 75 14 134/65 100 01/05/18 09:47 71 18 120/60 100 01/05/18 09:40 73 16 136/70 100 01/05/18 08:20 97.5 F L 79 12 135/75 93 01/05/18 05:26 98.0 F 79 15 122/66 94 01/05/18 00:22 98.2 F 76 15 114/73 95 01/04/18 19:57 98.2 F 84 14 107/49 97 01/04/18 18:00 98.3 F 20 124/66 01/04/18 17:40 103/50 01/04/18 17:25 100/60 06/04/18 17:19 98.1 F 74 18 108/46 01/04/18 17:10 101/46 01/04/18 16:55 109/45 01/04/18 16:44 98.1 F 18 109/50 01/04/18 16:40 106/42 01/04/18 16:29 97.8 F 76 18 98/44 01/04/18 16:25 96/50 01/04/18 16:10 104/52 01/04/18 15:55 103/45 01/04/18 15:40 98/48 01/04/18 15:25 100/49 01/04/18 15:10 96/51 01/04/18 14:55 98/51 01/04/18 14:40 97.6 F 18 98/49 Intake and Output 01/04/18 01/05/18 01/05/18 23:59 07:59 15:59 Intake Total 700 / 700 0 / 0 0 / 0 Output Total 2600 / 2600 0 / 0 400 / 400 Balance -1900 / -1900 0 / 0 -400 / -400 Intake: Oral 0 / 0 0 / 0 0 / 0 Blood Product 700 / 700 Rbcs Leuko Poor As-1 Unit 700 / 700 [id number] Output: Urine 650 / 650 0 / 0 Total Dialysis (HD) Output 1950 / 1950 Catheter 400 / 400 Other: Meal NPO Percent of Meal Consumed 0% Stool Size Moderate Small Stool Consistency soft soft formed Stool Color Brown Brown Green Green # Bowel Movement Diapers 1 1 1 Blood Glucose* 233 209 Hemodialysis Net Fluid Removed 1000 (mL) - General Appearance General appearance: Present: chronically ill, frail EENT: Present: ATNC, hearing intact, vision intact Neck: Present: supple Respiratory: Present: clear Cardiology: Present: no edema, normal S1, normal S2 Dialysis Vascular Access: Venous Catheter (Permacath placed this am, DRSG C/D/I. ) Gastrointestinal: Present: normoactive bowel sounds, no tenderness Integumentary: Present: no rash, warm and dry Neurologic: Present: alert and oriented x3 Psychiatric: Present: mood/affect appropriate, cooperative - Lab 01/05/18 05:37 01/05/18 05:37 Most recent lab results Calcium 8.2 mg/dL (8.6-10.3) L 01/05/18 05:37 Phosphorus 4.3 mg/dL (2.7-4.5) 12/24/17 09:09 Magnesium 1.7 mg/dL (1.6-2.6) 12/24/17 09:09 - VTE Documentation of Mechanical Device: Intermittent pneumatic compression device Consult Discharge Plan - Plan Referrals: Macario Diallo MD [Primary Care Provider] - Cruzito Alan DO [Partnered Physician] - 01/08/18 10:15 am
--- NOTE | 2018-01-05 15:06 | Internal Med Progress Note ---
Date of Encounter: 01/05/18 Time of Encounter: 15:04 - Assessment and plan (1) Diabetes mellitus Current Visit: No Status: Chronic Assessment and plan: 01/03: Isnulin Dependent Type 2 DM Blood sugar is elevated. Patient has been refusing insulin at times. Will attempt to convince her to take insulin. Blood sugars remain elevated. Currently: Levemir 45 untis sub daily SSI 01/04/2018-patient has been continuing to refuse insulin at times. I have educated her again regarding taking her medications. For now we will continue to check her Accu-Cheks before meals and at bedtime and scheduled sliding scale insulin 01/05/18-patient continues to refuse her Levemir at bedtime. I have strongly advocated her that she does take the medications as prescribed. Patient verbalized that she is going to be more cognizant and will in fact go ahead and take the medications in the presence of the nursing staff. I will continue to monitor her closely because her sugars are all over the place with her continued refusal. She does appear to have capacity to make her medical decisions Qualifiers: Diabetes mellitus type: type 2 Diabetes mellitus [facility] insulin use: with [facility] use Diabetes mellitus complication status: with kidney complications Diabetes mellitus complication detail: with chronic kidney disease Chronic kidney disease stage: stage 3 (moderate) Qualified Code(s): E11.22 - Type 2 diabetes mellitus with diabetic chronic kidney disease; N18.3 - Chronic kidney disease, stage 3 (moderate); Z79.4 - shelter (current) use of insulin (2) Hyponatremia Current Visit: No Status: Chronic Assessment and plan: Chronic. Patient is on by mouth sodium chloride pills, will continue Borderline to normal range in past several days. Management per Nephrology 01/01: Improved, As per nephrology Was in part due to elevated blood sugar 01/05/2018-stable. Continue to monitor (3) HTN (hypertension) Current Visit: No Status: Chronic Assessment and plan: SBP now running 140-160s, metoprolol resumed, will monitor. Was holding initially metoprolol because of suspected severe bradycardia on telemetry, though this turned out not a true bradycardia 12/30: Blood pressure overall stable. Monitor. 12/31: Mildly elevated today. Although she is scheduled for hemodialysis. No medication changes. Monitor 01/01: Improving Patient is on Lopressor 12.5 mg by mouth twice a day. IV hydralazine when necessary. 01/03: Blood pressure improved Lopressor 12.5 mg by mouth twice a day 01/05/2018-blood pressure stable. Continue to monitor Lopressor Qualifiers: Hypertension type: essential hypertension Qualified Code(s): I10 - Essential (primary) hypertension (4) DVT prophylaxis Current Visit: No Status: Acute Assessment and plan: Heparin subcutaneously (5) Clostridium difficile colitis Current Visit: No Status: Suspected Assessment and plan: Likely cause for n/v, diarrhea, Continue PO vancomycin 01/04 Day #7 of 10 days total therapy Vancomycin 125 mg po QID.. Diarrhea has resolved. However the patient did refuse a few days of vancomycin therapy and hence her neck number of days comes down to 7 .I will continue her on total 10 days of duration. 01/05/18-patient has refused oral vancomycin on multiple occasions. I have double checked with the pharmacy that she has done with 6 out of 10 days of her C. difficile treatment. I will switch her to IV Flagyl in the meantime to complete the rest of the 4 days. (6) Obstructive uropathy Current Visit: No Status: Chronic Assessment and plan: Status post bilateral ureteral stents on December 29. Patient has been improved since this time. Renal function is improving. (7) Nausea vomiting and diarrhea Current Visit: No Status: Acute Assessment and plan: - ADAT; Currently clear liquid diet. Still complaints of nausea/vomiting. - Possible etiologies based on her history: uremia, C diff colitis, UTI - Symptomatic treatment for nausea and vomiting - ADAT - Nephrology for management of MERNA on CKD, continue IV antibiotics, continue oral vancomycin, follow-up cultures. 12/30: Resolved (8) Acute kidney injury superimposed on chronic kidney disease Current Visit: No Status: Acute Assessment and plan: Patient has a history of chronic obstructive renal disease. She was placed on chronic Madden catheter and plan for hemodialysis if kidney function does not improve. On admission cr 4.9, is gradually improving. - Continue careful IV fluid hydration - Avoid the nephrotoxic medications - Strict I/Os - Nephrology consulted, recommendations appreciated. No dialysis today 12/29: Continue to hold nephrotoxins. Urology placed bilateral ureteral stents today with hopes that this may improve her renal function. Nephrology is following. Plans for hemodialysis catheter to be placed today or tomorrow. 12/30: Postop today due to bilateral ureteral stents. Management is per nephrology. Temporary hemodialysis catheter exchange today. Plans for hemodialysis as per nephrology. 01/01: Potassium elevated today. Patient underwent hemodialysis. Her creatinine is improving, hopefully related to placement of bilateral ureteral stents Discussed the case with Dr. Meza in nephrology today 01/02: HD unclear at this point whether this is temporary or whether she will need a permacath for permanent dialysis 01/03: Creatinine continues to improve. Urine output improving. Given renal improvement, she may not need permacath and [facility] dialysis. We will await final word from nephrology. 01/04/2018-appreciate follow from nephrology. Continue on hemodialysis today. Consult placed to interventional radiology for a tunnel dialysis catheter placement. Plans are in motion for outpatient calluses set up 01/05/2018-patient has received a permacath today although in the groin which is not the ideal location. I am being made aware by the nursing staff that there is an ongoing discussion between nephrology and interventional radiology to move the site. On the other hand dependency case manager is actively working on getting chair time and outpatient dialysis set up for this patient. Most likely this will not be done until Thursday which is the anticipated discharge date at this point of time. (9) CKD (chronic kidney disease) stage 5, GFR less than 15 ml/min Current Visit: No Status: Acute Assessment and plan: Management as above (10) Bradycardia Current Visit: Yes Status: Resolved Assessment and plan: Unsure if this is asymptomatic or symptomatic as patient does complain of epigastric discomfort and nausea, however she describes more reflux-like symptoms and she may have a gastroenteritis. I reviewed telemetry strip from 0900 and it was 28 bpm. A stat ECG done now showed a sinus rhythm with HR 78 bpm, no ST/T wave changes that I can appreciate. Otherwise does have many PVCs. I would like Cardiology to review this as well . Called Cardiology on 12/24 and a review of telemetry [employer] Machine Operator Dr. Zambrano noted that this is not true bradycardia on telemetry. If there remains question, Cardiology will be consulted. HR currently normal Low dose metoprolol was resumed without issue 01/03: Tolerating beta raul well 01/04/2018-bradycardia is more or less resolved. However we will continue to monitor while on telemetry (11) Hypothermia Current Visit: Yes Status: Resolved Assessment and plan: Unsure of cause - TSH, serum cortisol level wnl - resolved Qualifiers: Encounter type: initial encounter Qualified Code(s): T68.XXXA - Hypothermia , initial encounter (12) Sepsis Current Visit: Yes Status: Resolved Qualifiers: Sepsis type: sepsis due to unspecified organism Qualified Code(s): A41.9 - Sepsis, unspecified organism - Time Spent With Patient Total time spent is greater than 50% in coordination of care (as documented) at patient's floor/unit and/or counseling patient: Greater than 35 minutes - Subjective Interval history: Patient denies any new shortness of breath, chest pain, diarrhea. - Constitutional Vitals: Temp Pulse Resp BP Pulse Ox 97.7 F 77 16 135/68 99 01/05/18 11:10 01/05/18 11:10 01/05/18 11:10 01/05/18 11:10 01/05/18 11:10 General appearance: Present: A&O X 3, no acute distress, answers questions appropriately Exam: GENERAL: Alert, no distress, cooperative EYES: PERRLA, EOMI EARS: External ears normal, canals clear OROPHARYNX: Lips, mucosa, and tongue normal. Teeth and gums normal. Oropharynx normal. NECK: No jugulovenous distention, No carotid bruits, Carotid pulse normal contour, Supple LUNGS: Lungs clear to auscultation, Good diaphragmatic excursion CARDIAC: Normal S1 and S2; no rubs, murmurs, or gallops ABDOMEN: Abdomen soft, non-tender, BS normal, No masses or organomegaly EXTREMITIES: Extremities normal, no deformities, edema, clubbing or skin discoloration. Good capillary refill., No ulcers NEURO: Gait normal. Reflexes normal and symmetric. Sensation grossly intact, Cranial nerves II-XII intact PULSES: 2+ radial, 2+ carotid Rest of the exam is non contributory Internal Medicine: Result - Labs CBC & Chem 7: 01/05/18 05:37 01/05/18 05:37 Labs: Short CBC 01/05/18 Range/Units 05:37 WBC 7.3 (4.3-11.1) K/mcL Hgb 8.6 L (11.5-15.4) g/dL Hct 25.9 L (35.3-44.9) % Plt Count 203 (140-400) K/mcL BMP 01/05/18 05:37 Sodium 130 L Potassium 4.7 Chloride 95 L Carbon Dioxide 22 L BUN 27 H Creatinine 1.96 H Glucose 202 H Calcium 8.2 L - ABG Interpretation ABG results: PT/INR, D-dimer PT 13.7 Seconds (9.4-12.1) H 12/25/17 05:35 - Impressions Impressions Insertion Non-Tunneled Catheter 01/05/18 00:00 IMPRESSION: Successful fluoroscopy guided exchange of a temporary dialysis catheter for a tunneled dialysis catheter. D/ / Cesar Rebolledo MD / Cesar Rebolledo MD Interpreting Provider: Cesar Rebolledo MD - VTE Documentation of Mechanical Device: Intermittent pneumatic compression device Consult Discharge Plan - Plan Referrals: Macario Diallo MD [Primary Care Provider] - Cruzito Alan DO [Partnered Physician] - 01/08/18 10:15 am
[2018-01-05] MEDS: Insulin DETEMIR 100 UNIT/ML X5UNITS SQ SCH (21:26)
[2018-01-06] MEDS: MetroNIDAZOLE 500 MG/100 ML 500 MG/100 ML BAG IVPB SCH ×3 (02:22→17:47)
[2018-01-06] MEDS: *HR* Heparin 5,000 UNIT/ML VIAL SQ SCH ×2 (06:16→17:46)
[2018-01-06 07:26] LABS: Hematocrit 26.7 % (35.3-44.9); Hemoglobin 8.5 g/dL (11.5-15.4); Mean Corpuscular HGB Conc 31.8 g/dL (31.6-35.5); Mean Corpuscular Hemoglobin 27.5 pg (28.0-33.3); Mean Corpuscular Volume 86.4 fL (83.0-100.0); Mean Platelet Volume 9.7 fL (9.4-12.4); Platelet Count 202 K/mcL (140-400); Red Blood Count 3.09 M/mcL (3.82-4.97); Red Cell Distribution Width 13.8 % (11.5-14.5)
[2018-01-06] MEDS ORDERED: *HR* Heparin 10,000 UNIT/10 ML VIAL IV PRN (07:37)
[2018-01-06] MEDS ORDERED: 0.9 % Sodium Chloride 250 ML IVC PRN (07:37)
[2018-01-06] MEDS ORDERED: 0.9 % Sodium Chloride 1,000 ML PRIME SCH (07:45)
[2018-01-06 07:49] LABS: Calcium 8.2 mg/dL (8.6-10.3); Potassium 4.9 mEq/L (3.5-5.1)
[2018-01-06] MEDS ORDERED: 0.9 % Sodium Chloride 1,000 ML ONE (08:48)
[2018-01-06] MEDS: Cholecalciferol (D-3) 1,000 UNIT TABLET PO SCH (08:49)
[2018-01-06] MEDS: Lactobacillus 1 EACH CAP.SPRINK PO SCH (08:49)
[2018-01-06] MEDS: Aspirin Enteric Coated 81 MG Tablet PO SCH (08:49)
[2018-01-06] MEDS: Renal Vitamin 1 MG CAPSULE PO SCH (08:49)
[2018-01-06] MEDS: Folic Acid 1 MG TABLET PO SCH (08:50)
[2018-01-06] MEDS: Insulin LISPRO 300 UNITS/3 ML VIAL SQ SCH ×4 (08:53→19:57)
--- NOTE | 2018-01-06 10:15 | Nephrology Progress Note ---
Date of Encounter: 01/06/18 Time of Encounter: 10:13 - Assessment and Plan (1) Acute kidney injury superimposed on chronic kidney disease Current Visit: No Status: Acute Continue to avoid nephrotoxins and renal dose medications. Rejoiner consult placed for Chair time at [facility]. May d/c from renal standpoint. (2) Anemia Current Visit: No Status: Acute GoaHgb 10-11. Hgb 8.5. Qualifiers: Anemia type: due to chronic kidney disease Chronic kidney disease stage: stage 5, not on chronic dialysis Qualified Code(s): N18.5 - Chronic kidney disease, stage 5; D63.1 - Anemia in chronic kidney disease (3) PNA (pneumonia) Current Visit: Yes Status: Acute Per primary team. Qualifiers: Pneumonia type: due to unspecified organism Laterality: right Lung location: upper lobe of lung Qualified Code(s): J18.1 - Lobar pneumonia, unspecified organism (4) UTI (urinary tract infection) Current Visit: Yes Status: Acute Per primary team. Madden Catheter in place. Qualifiers: Urinary tract infection type: site unspecified Hematuria presence: without hematuria Qualified Code(s): N39.0 - Urinary tract infection, site not specified (5) Generalized weakness Current Visit: Yes Status: Acute Per primary team. Subjective Principal diagnosis: hypotension Interval history: Pt seen and examined in HD, denies CP/SOB. Objective - Vital Signs Vital signs: Vital Signs Temp Pulse Resp BP Pulse Ox 01/06/18 09:55 126/67 01/06/18 09:40 131/65 01/06/18 07:14 97.7 F 81 16 131/71 95 01/06/18 04:43 97.9 F 77 15 124/73 96 01/05/18 19:45 98.2 F 82 15 123/69 95 01/05/18 16:17 98.1 F 79 16 128/73 95 01/05/18 11:10 97.7 F 77 16 135/68 99 Intake and Output 01/05/18 01/06/18 01/06/18 23:59 07:59 15:59 Intake Total 100 / 100 100 / 100 Output Total 1200 / 1200 Balance 100 / 100 -1100 / -1100 Intake: IV Fluids 100 / 100 100 / 100 Flagyl Premix 500 MG/100 ML 500 100 / 100 100 / 100 mg In 100 ml @ 100 mls/hr IVPB Q8H [facility] Rx#:[id number] Oral 0 / 0 0 / 0 Output: Catheter 1200 / 1200 Other: Stool Size Moderate Moderate Stool Consistency liquid loose soft Stool Color Brown Brown # Bowel Movement Diapers 1 1 1 Weight 59.1 kg Blood Glucose* 280 328 Hemodialysis Net Fluid Removed 605 (mL) Patient Weight 01/06/18 23:59 Weight 59.1 kg - General Appearance General appearance: Present: chronically ill, frail EENT: Present: ATNC, hearing intact, vision intact Neck: Present: supple Respiratory: Present: clear Cardiology: Present: no edema, normal S1, normal S2 Dialysis Vascular Access: Venous Catheter (Tunneled Line, DRSG C/D/I.) Gastrointestinal: Present: normoactive bowel sounds, no tenderness, no guarding Integumentary: Present: no rash, warm and dry Neurologic: Present: alert and oriented x3 Psychiatric: Present: mood/affect appropriate, cooperative - Lab 01/06/18 06:50 01/06/18 06:50 Most recent lab results Calcium 8.2 mg/dL (8.6-10.3) L 01/06/18 06:50 Phosphorus 4.3 mg/dL (2.7-4.5) 12/24/17 09:09 Magnesium 1.7 mg/dL (1.6-2.6) 12/24/17 09:09 - VTE Documentation of Mechanical Device: Intermittent pneumatic compression device Consult Discharge Plan - Plan Referrals: Macario Diallo MD [Primary Care Provider] - Cruzito Alan DO [Partnered Physician] - 01/08/18 10:15 am
--- NOTE | 2018-01-06 11:32 | Internal Med Progress Note ---
Date of Encounter: 01/06/18 Time of Encounter: 11:30 - Assessment and plan (1) Diabetes mellitus Current Visit: No Status: Chronic Assessment and plan: 01/03: Isnulin Dependent Type 2 DM Blood sugar is elevated. Patient has been refusing insulin at times. Will attempt to convince her to take insulin. Blood sugars remain elevated. Currently: Levemir 45 untis sub daily SSI 01/04/2018-patient has been continuing to refuse insulin at times. I have educated her again regarding taking her medications. For now we will continue to check her Accu-Cheks before meals and at bedtime and scheduled sliding scale insulin 01/05/18-patient continues to refuse her Levemir at bedtime. I have strongly advocated her that she does take the medications as prescribed. Patient verbalized that she is going to be more cognizant and will in fact go ahead and take the medications in the presence of the nursing staff. I will continue to monitor her closely because her sugars are all over the place with her continued refusal. She does appear to have capacity to make her medical decisions 01/06/2018-I was informed by the nursing staff this morning that the patient's sugars have been all over the place. This is again due to the fact that the patient is extremely anxious and refuses medication based on her believes. I made it clear to the patient that she should not refuse medications and that this would put her at a very high readmission risk if she continues to make medical decisions on her own and not follow the plan that we set out for her. She wishes compliance and I hope that today would be better than yesterday. 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 Patient is on by mouth sodium chloride pills, will continue Borderline to normal range in past several days. Management per Nephrology 01/01: Improved, As per nephrology Was in part due to elevated blood sugar 01/05/2018-stable. Continue to monitor (3) HTN (hypertension) Current Visit: No Status: Chronic Assessment and plan: SBP now running 140-160s, metoprolol resumed, will monitor. Was holding initially metoprolol because of suspected severe bradycardia on telemetry, though this turned out not a true bradycardia 12/30: Blood pressure overall stable. Monitor. 12/31: Mildly elevated today. Although she is scheduled for hemodialysis. No medication changes. Monitor 01/01: Improving Patient is on Lopressor 12.5 mg by mouth twice a day. IV hydralazine when necessary. 01/03: Blood pressure improved Lopressor 12.5 mg by mouth twice a day 01/05/2018-blood pressure stable. Continue to monitor Lopressor Qualifiers: Hypertension type: essential hypertension Qualified Code(s): I10 - Essential (primary) hypertension (4) DVT prophylaxis Current Visit: No Status: Acute Assessment and plan: Heparin subcutaneously (5) Clostridium difficile colitis Current Visit: No Status: Suspected Assessment and plan: Likely cause for n/v, diarrhea, Continue PO vancomycin 01/04 Day #7 of 10 days total therapy Vancomycin 125 mg po QID.. Diarrhea has resolved. However the patient did refuse a few days of vancomycin therapy and hence her neck number of days comes down to 7 .I will continue her on total 10 days of duration. 01/05/18-patient has refused oral vancomycin on multiple occasions. I have double checked with the pharmacy that she has done with 6 out of 10 days of her C. difficile treatment. I will switch her to IV Flagyl in the meantime to complete the rest of the 4 days. 01/06/2018-I plan to continue IV Flagyl through Thursday which will be the tentative date of discharge for this patient given her multiple issues with refusing medications. I did double check with the clinical pharmacist on the floor and this seems to be a reasonable time frame for C. difficile treatment in her case. Like already mentioned her diarrhea and nausea vomiting have significantly resolved and now we are planning on arranging for disposition at this point. (6) Obstructive uropathy Current Visit: No Status: Chronic Assessment and plan: Status post bilateral ureteral stents on December 29. Patient has been improved since this time. Renal function is improving. (7) Nausea vomiting and diarrhea Current Visit: No Status: Acute Assessment and plan: - ADAT; Currently clear liquid diet. Still complaints of nausea/vomiting. - Possible etiologies based on her history: uremia, C diff colitis, UTI - Symptomatic treatment for nausea and vomiting - ADAT - Nephrology for management of MERNA on CKD, continue IV antibiotics, continue oral vancomycin, follow-up cultures. 12/30: Resolved (8) Acute kidney injury superimposed on chronic kidney disease Current Visit: No Status: Acute Assessment and plan: Patient has a history of chronic obstructive renal disease. She was placed on chronic Madden catheter and plan for hemodialysis if kidney function does not improve. On admission cr 4.9, is gradually improving. - Continue careful IV fluid hydration - Avoid the nephrotoxic medications - Strict I/Os - Nephrology consulted, recommendations appreciated. No dialysis today 12/29: Continue to hold nephrotoxins. Urology placed bilateral ureteral stents today with hopes that this may improve her renal function. Nephrology is following. Plans for hemodialysis catheter to be placed today or tomorrow. 12/30: Postop today due to bilateral ureteral stents. Management is per nephrology. Temporary hemodialysis catheter exchange today. Plans for hemodialysis as per nephrology. 01/01: Potassium elevated today. Patient underwent hemodialysis. Her creatinine is improving, hopefully related to placement of bilateral ureteral stents Discussed the case with Dr. Meza in nephrology today 01/02: HD unclear at this point whether this is temporary or whether she will need a permacath for permanent dialysis 01/03: Creatinine continues to improve. Urine output improving. Given renal improvement, she may not need permacath and fpc dialysis. We will await final word from nephrology. 01/04/2018-appreciate follow from nephrology. Continue on hemodialysis today. Consult placed to interventional radiology for a tunnel dialysis catheter placement. Plans are in motion for outpatient calluses set up 01/05/2018-patient has received a permacath today although in the groin which is not the ideal location. I am being made aware by the nursing staff that there is an ongoing discussion between nephrology and interventional radiology to move the site. On the other hand bottle caser is actively working on getting chair time and outpatient dialysis set up for this patient. Most likely this will not be done until Thursday which is the anticipated discharge date at this point of time. 01/06/2018-patient has received a permacath and is undergoing dialysis as per nephrology. We are in the midst of setting up chair time for her starting this Thursday. It seems like even though the groin location of the permacath is not ideal but this was placed after several failed attempts at putting a permacath in the neck region. Aiming for discharge on this Thursday. Patient remains a very high readmission risk despite multiple attempts at decreasing her risk status predominantly based on her interference with the plan of care (9) CKD (chronic kidney disease) stage 5, GFR less than 15 ml/min Current Visit: No Status: Acute (10) Bradycardia Current Visit: Yes Status: Resolved Assessment and plan: Unsure if this is asymptomatic or symptomatic as patient does complain of epigastric discomfort and nausea, however she describes more reflux-like symptoms and she may have a gastroenteritis. I reviewed telemetry strip from 0900 and it was 28 bpm. A stat ECG done now showed a sinus rhythm with HR 78 bpm, no ST/T wave changes that I can appreciate. Otherwise does have many PVCs. I would like Cardiology to review this as well . Called Cardiology on 12/24 and a review of telemetry [employer] Dr. Zambrano noted that this is not true bradycardia on telemetry. If there remains question, Cardiology will be consulted. HR currently normal Low dose metoprolol was resumed without issue 01/03: Tolerating beta raul well 01/04/2018-bradycardia is more or less resolved. However we will continue to monitor while on telemetry (11) Hypothermia Current Visit: Yes Status: Resolved Assessment and plan: Unsure of cause - TSH, serum cortisol level wnl - resolved Qualifiers: Encounter type: initial encounter Qualified Code(s): T68.XXXA - Hypothermia , initial encounter (12) Sepsis Current Visit: Yes Status: Resolved Assessment and plan: Today patient had 3 SIRS criteria; tachycardia (though she did refuse metoprolol this AM), leukocytosis of 14k, and fever of 100.6 F Likely UTI related, but cannot exclude other etiologies. Might have worsening C diff as she is refusing PO vancomycin. Patient had some improvement on Zosyn but after de-escalating therapy to Rocephin, patient. Given she was recently in a hospital and currently not much activity should rule out pneumonia as well. Repeat blood cultures, urine cultures, repeat imaging for any source of infection. Close monitoring of vital signs Escalate antibiotic therapy back to Zosyn 5/30: As above. Vitals are stable. Afebrile today. Monitor. 01/01: Resolved. Zosyn was stopped 01/03: Sepsis due to UTI with obx uropathy s/p Bilateral Ureteral stents on 12/29/17, as well as Sepsis due to C. Diff Colitis, present on admission, sepsis now resolved Patient is off antibiotics with the exception of enteric vancomycin for C. difficile colitis (Day #7 of 10 days total). She is doing well. I would strongly consider empiric treatment for C. difficile in the future should she ever require antibiotics. Qualifiers: Sepsis type: sepsis due to unspecified organism Qualified Code(s): A41.9 - Sepsis, unspecified organism - Time Spent With Patient Total time spent is greater than 50% in coordination of care (as documented) at patient's floor/unit and/or counseling patient: 25 - 35 minutes - Subjective Interval history: Denies any new shortness of breath, chest pain, diarrhea - Constitutional Vitals: Temp Pulse Resp BP Pulse Ox 97.7 F 81 16 126/67 95 01/06/18 07:14 01/06/18 07:14 01/06/18 07:14 01/06/18 09:55 01/06/18 07:14 General appearance: Present: A&O X 3, no acute distress, answers questions appropriately Exam: GENERAL: Alert, no distress, cooperative EYES: PERRLA, EOMI EARS: External ears normal, canals clear OROPHARYNX: Lips, mucosa, and tongue normal. Teeth and gums normal. Oropharynx normal. NECK: No jugulovenous distention, No carotid bruits, Carotid pulse normal contour, Supple LUNGS: Lungs clear to auscultation, Good diaphragmatic excursion CARDIAC: Normal S1 and S2; no rubs, murmurs, or gallops ABDOMEN: Abdomen soft, non-tender, BS normal, No masses or organomegaly Internal Medicine: Result - Labs CBC & Chem 7: 01/06/18 06:50 01/06/18 06:50 Labs: Short CBC 01/06/18 Range/Units 06:50 WBC 5.8 (4.3-11.1) K/mcL Hgb 8.5 L (11.5-15.4) g/dL Hct 26.7 L (35.3-44.9) % Plt Count 202 (140-400) K/mcL BMP 01/06/18 06:50 Sodium 131 L Potassium 4.9 Chloride 99 Carbon Dioxide 22 L BUN 37 H Creatinine 2.36 H Glucose 280 H Calcium 8.2 L - ABG Interpretation ABG results: PT/INR, D-dimer PT 13.7 Seconds (9.4-12.1) H 12/25/17 05:35 - Impressions Impressions Insertion Non-Tunneled Catheter 01/05/18 00:00 IMPRESSION: Successful fluoroscopy guided exchange of a temporary dialysis catheter for a tunneled dialysis catheter. D/ / Cesar Rebolledo MD / Cesar Rebolledo MD Interpreting Provider: Cesar Rebolledo MD - VTE Documentation of Mechanical Device: Intermittent pneumatic compression device Consult Discharge Plan - Plan Additional Instructions: First dialysis appointment will be on ThursdayJanuary 08 at [facility]. Please arrive at 4:00 PM. Address: [address] [place] [address]. Referrals: Macario Diallo MD [Primary Care Provider] - Cruzito Alan DO [Partnered Physician] - 01/08/18 10:15 am
[2018-01-06] MEDS ORDERED: *HR* Midazolam HCl 2 MG/2 ML VIAL IVP ONE (14:19)
[2018-01-06] MEDS ORDERED: CeFAZolin Syr 2,000MG/20 ML 2,000 MG/20 ML SYRINGE IVPB ONE (14:19)
[2018-01-06] MEDS ORDERED: *HR* FentaNYL (PF) 100 MCG/2 ML VIAL IVP ONE (14:20)
--- NOTE | 2018-01-06 14:22 | Pre-Sedation Evaluation ---
Pre-sedation evaluation - Pre-sedation checklist Date of procedure: 01/06/18 Procedure: permcath Recent Vitals: Last Vital Signs Temp 97.3 F L 01/06/18 12:45 Pulse 81 01/06/18 07:14 Resp 18 01/06/18 12:45 BP 134/73 01/06/18 12:45 Pulse Ox 95 01/06/18 07:14 H&P (including ROS) documented in medical record: Yes Dietary Status: NPO 6 hours prior to procedure ASA Classification *see protocol: CLASS III-Severe systemic disease Plan of Care: Pt appropriate candidate for procedure/moderate/conscious sedation , Risks/benefits of procedure/sedation discussed w/ patient/family
[2018-01-06] MEDS ORDERED: 0.9 % Sodium Chloride 500 ML ONE (14:41)
[2018-01-06] MEDS ORDERED: Heparin 1,000 UNITS/500 mL 500 ML ONE (14:42)
[2018-01-06] MEDS ORDERED: *HR* Heparin 5,000 UNIT/ML VIAL ONE ×2 (14:49→15:12)
[2018-01-06] MEDS ORDERED: CeFAZolin Premix DUPLEX 2,000 MG/50 ML BAG IVPB ONE (15:00)
--- NOTE | 2018-01-06 15:19 | IR Procedure Note ---
Date of procedure: 01/06/18 Consent Obtained: Written consent Timeout: Correct patient and procedure verified, Correct site verified, Time out performed, Skin prep completed Local anesthetic: Lidocaine 1% Indications: Renal failure,, malfunctioning femoral catheter Procedure Performed: Tunneled dialysis cathater removal and placement Was there an power plant assistant present: No Results/Findings: Removal rt femoral TDC, New LIJ 14F 28cm Omid-Split TDC placement Estimated blood loss (cc): 0 Complications: None; Tolerated procedure well Post Procedure Treatment Plan: Monitor on floor Specimen: None
[2018-01-06] MEDS: Leptospermum Honey GEL 1 APPL/5 ML MLS TP SCH ×2 (15:44→19:56)
[2018-01-06] MEDS: Insulin DETEMIR 100 UNIT/ML X5UNITS SQ SCH (19:57)
[2018-01-07] MEDS: MetroNIDAZOLE 500 MG/100 ML 500 MG/100 ML BAG IVPB SCH ×3 (01:28→18:15)
[2018-01-07] MEDS: *HR* Heparin 5,000 UNIT/ML VIAL SQ SCH ×2 (06:14→18:15)
[2018-01-07 07:21] LABS: Hematocrit 27.4 % (35.3-44.9); Hemoglobin 8.8 g/dL (11.5-15.4); Mean Corpuscular HGB Conc 32.1 g/dL (31.6-35.5); Mean Corpuscular Hemoglobin 27.9 pg (28.0-33.3); Mean Platelet Volume 9.4 fL (9.4-12.4); Platelet Count 175 K/mcL (140-400); Red Blood Count 3.15 M/mcL (3.82-4.97); Red Cell Distribution Width 13.7 % (11.5-14.5)
[2018-01-07 07:40] LABS: Calcium 8.3 mg/dL (8.6-10.3); Potassium 3.9 mEq/L (3.5-5.1)
[2018-01-07] MEDS: Insulin LISPRO 300 UNITS/3 ML VIAL SQ SCH ×4 (09:02→22:32)
[2018-01-07] MEDS: Lactobacillus 1 EACH CAP.SPRINK PO SCH (09:36)
[2018-01-07] MEDS: Renal Vitamin 1 MG CAPSULE PO SCH (09:37)
[2018-01-07] MEDS: Folic Acid 1 MG TABLET PO SCH (09:37)
[2018-01-07] MEDS: Cholecalciferol (D-3) 1,000 UNIT TABLET PO SCH (09:38)
[2018-01-07] MEDS: Aspirin Enteric Coated 81 MG Tablet PO SCH (09:38)
[2018-01-07] MEDS: Leptospermum Honey GEL 1 APPL/5 ML MLS TP SCH ×2 (11:05→22:32)
--- NOTE | 2018-01-07 11:23 | Nephrology Progress Note ---
Date of Encounter: 01/07/18 Time of Encounter: 11:21 - Assessment and Plan (1) CKD (chronic kidney disease) stage 5, GFR less than 15 ml/min Current Visit: No Status: Acute Pt may be discharged today or tomorrow Has chair time at 4pm at [facility] Continue renal diet Avoid nephrotoxins if possible (2) Anemia Current Visit: No Status: Acute Hgb 8.8 Goal 10-11 Transfuse per parameters Qualifiers: Anemia type: due to chronic kidney disease Chronic kidney disease stage: stage 5, not on chronic dialysis Qualified Code(s): N18.5 - Chronic kidney disease, stage 5; D63.1 - Anemia in chronic kidney disease (3) Diabetes mellitus Current Visit: No Status: Chronic per primary team Qualifiers: Diabetes mellitus type: type 2 Diabetes mellitus buttermaker helper insulin use: with senior living use Diabetes mellitus complication status: with kidney complications Diabetes mellitus complication detail: with chronic kidney disease Chronic kidney disease stage: stage 3 (moderate) Qualified Code(s): E11.22 - Type 2 diabetes mellitus with diabetic chronic kidney disease; N18.3 - Chronic kidney disease, stage 3 (moderate); Z79.4 - custodial (current) use of insulin Subjective Principal diagnosis: hypotension Interval history: Patient seen and examined. No complaints today Objective - Vital Signs Vital signs: Vital Signs Temp Pulse Resp BP Pulse Ox 01/07/18 08:36 97.7 F 70 17 146/73 96 01/07/18 04:26 97.8 F 79 15 147/69 96 01/06/18 19:37 98.6 F 82 15 122/65 95 01/06/18 16:19 98.2 F 92 16 121/60 97 01/06/18 15:59 98.0 F 74 16 157/73 97 01/06/18 15:01 100 20 182/95 100 01/06/18 14:57 75 20 143/73 100 01/06/18 14:50 76 14 140/69 100 01/06/18 12:45 97.3 F L 18 134/73 01/06/18 12:35 123/64 01/06/18 12:10 121/66 01/06/18 11:55 115/64 01/06/18 11:40 124/67 01/06/18 11:25 122/64 Intake and Output 01/06/18 01/07/18 01/07/18 23:59 07:59 15:59 Intake Total 130 / 130 340 / 340 Output Total 625 / 625 750 / 750 300 / 300 Balance -495 / -495 -410 / -410 -300 / -300 Intake: IV Fluids 100 / 100 100 / 100 Flagyl Premix 500 MG/100 ML 500 100 / 100 100 / 100 mg In 100 ml @ 100 mls/hr IVPB Q8H VIKA Rx#:[id number] Oral 30 / 30 240 / 240 Output: Catheter 625 / 625 750 / 750 300 / 300 Other: Weight 58 kg Blood Glucose* 399 349 Patient Weight 01/07/18 23:59 Weight 58 kg - General Appearance General appearance: Present: chronically ill EENT: Present: ATNC, mucous membranes moist, hearing intact, vision intact Neck: Present: supple Respiratory: Present: clear Cardiology: Present: no edema, normal S1, normal S2 Dialysis Vascular Access: Venous Catheter Gastrointestinal: Present: no tenderness, no guarding Integumentary: Present: warm and dry Neurologic: Present: alert and oriented x3 Psychiatric: Present: mood/affect appropriate, cooperative - Lab 01/07/18 07:06 01/07/18 07:06 Most recent lab results Calcium 8.3 mg/dL (8.6-10.3) L 01/07/18 07:06 Phosphorus 4.3 mg/dL (2.7-4.5) 12/24/17 09:09 Magnesium 1.7 mg/dL (1.6-2.6) 12/24/17 09:09 - VTE Documentation of Mechanical Device: Intermittent pneumatic compression device Consult Discharge Plan - Plan Additional Instructions: First dialysis appointment will be on ThursdayJanuary 08 at [facility]. Please arrive at 4:00 PM. Address: [address] [place] [address]. Referrals: Macario Diallo MD [Primary Care Provider] - Cruzito Alan DO [Partnered Physician] - 01/08/18 10:15 am
--- NOTE | 2018-01-07 11:42 | Internal Med Progress Note ---
Date of Encounter: 01/07/18 Time of Encounter: 11:39 - Assessment and plan (1) Diabetes mellitus Current Visit: No Status: Chronic Assessment and plan: 01/03: Isnulin Dependent Type 2 DM Blood sugar is elevated. Patient has been refusing insulin at times. Will attempt to convince her to take insulin. Blood sugars remain elevated. Currently: Levemir 45 untis sub daily SSI 01/04/2018-patient has been continuing to refuse insulin at times. I have educated her again regarding taking her medications. For now we will continue to check her Accu-Cheks before meals and at bedtime and scheduled sliding scale insulin 01/05/18-patient continues to refuse her Levemir at bedtime. I have strongly advocated her that she does take the medications as prescribed. Patient verbalized that she is going to be more cognizant and will in fact go ahead and take the medications in the presence of the nursing staff. I will continue to monitor her closely because her sugars are all over the place with her continued refusal. She does appear to have capacity to make her medical decisions 01/06/2018-I was informed by the nursing staff this morning that the patient's sugars have been all over the place. This is again due to the fact that the patient is extremely anxious and refuses medication based on her believes. I made it clear to the patient that she should not refuse medications and that this would put her at a very high readmission risk if she continues to make medical decisions on her own and not follow the plan that we set out for her. She wishes compliance and I hope that today would be better than yesterday. 01/06/2018-patient was again hesitant in taking further insulins yesterday. Today she is agreeable to take at least 10 units of Levemir and keep the sliding scale on. Aiming for discharge tomorrow. This will give her at least another day of better blood sugars. Again this morning her blood sugar the North of 350 which is very concerning. I am beginning to feel that no regardless of what we do this patient is reasonably very high readmission risk given her presumptive thoughts about medications Qualifiers: Diabetes mellitus type: type 2 Diabetes mellitus halfway insulin use: with terminal operations manager use Diabetes mellitus complication status: with kidney complications Diabetes mellitus complication detail: with chronic kidney disease Chronic kidney disease stage: stage 3 (moderate) Qualified Code(s): E11.22 - Type 2 diabetes mellitus with diabetic chronic kidney disease; N18.3 - Chronic kidney disease, stage 3 (moderate); Z79.4 - long term care administrator (current) use of insulin (2) Hyponatremia Current Visit: No Status: Chronic Assessment and plan: Chronic. Patient is on by mouth sodium chloride pills, will continue Borderline to normal range in past several days. Management per Nephrology 01/01: Improved, As per nephrology Was in part due to elevated blood sugar 01/05/2018-stable. Continue to monitor (3) HTN (hypertension) Current Visit: No Status: Chronic Assessment and plan: SBP now running 140-160s, metoprolol resumed, will monitor. Was holding initially metoprolol because of suspected severe bradycardia on telemetry, though this turned out not a true bradycardia 12/30: Blood pressure overall stable. Monitor. 12/31: Mildly elevated today. Although she is scheduled for hemodialysis. No medication changes. Monitor 01/01: Improving Patient is on Lopressor 12.5 mg by mouth twice a day. IV hydralazine when necessary. 01/03: Blood pressure improved Lopressor 12.5 mg by mouth twice a day 01/05/2018-blood pressure stable. Continue to monitor Lopressor Qualifiers: Hypertension type: essential hypertension Qualified Code(s): I10 - Essential (primary) hypertension (4) DVT prophylaxis Current Visit: No Status: Acute Assessment and plan: Heparin subcutaneously (5) Clostridium difficile colitis Current Visit: No Status: Suspected Assessment and plan: Likely cause for n/v, diarrhea, Continue PO vancomycin 01/04 Day #7 of 10 days total therapy Vancomycin 125 mg po QID.. Diarrhea has resolved. However the patient did refuse a few days of vancomycin therapy and hence her neck number of days comes down to 7 .I will continue her on total 10 days of duration. 01/05/18-patient has refused oral vancomycin on multiple occasions. I have double checked with the pharmacy that she has done with 6 out of 10 days of her C. difficile treatment. I will switch her to IV Flagyl in the meantime to complete the rest of the 4 days. 01/06/2018-I plan to continue IV Flagyl through Thursday which will be the tentative date of discharge for this patient given her multiple issues with refusing medications. I did double check with the clinical pharmacist on the floor and this seems to be a reasonable time frame for C. difficile treatment in her case. Like already mentioned her diarrhea and nausea vomiting have significantly resolved and now we are planning on arranging for disposition at this point. 01/07-last dose of Flagyl tomorrow. Planning discharge tomorrow so that she can make it to chair time (6) Obstructive uropathy Current Visit: No Status: Chronic Assessment and plan: Status post bilateral ureteral stents on December 29. Patient has been improved since this time. Renal function is improving. (7) Nausea vomiting and diarrhea Current Visit: No Status: Resolved Assessment and plan: - ADAT; Currently clear liquid diet. Still complaints of nausea/vomiting. - Possible etiologies based on her history: uremia, C diff colitis, UTI - Symptomatic treatment for nausea and vomiting - ADAT - Nephrology for management of MERNA on CKD, continue IV antibiotics, continue oral vancomycin, follow-up cultures. 12/30: Resolved (8) Acute kidney injury superimposed on chronic kidney disease Current Visit: No Status: Acute Assessment and plan: Patient has a history of chronic obstructive renal disease. She was placed on chronic Madden catheter and plan for hemodialysis if kidney function does not improve. On admission cr 4.9, is gradually improving. - Continue careful IV fluid hydration - Avoid the nephrotoxic medications - Strict I/Os - Nephrology consulted, recommendations appreciated. No dialysis today 12/29: Continue to hold nephrotoxins. Urology placed bilateral ureteral stents today with hopes that this may improve her renal function. Nephrology is following. Plans for hemodialysis catheter to be placed today or tomorrow. 12/30: Postop today due to bilateral ureteral stents. Management is per nephrology. Temporary hemodialysis catheter exchange today. Plans for hemodialysis as per nephrology. 01/01: Potassium elevated today. Patient underwent hemodialysis. Her creatinine is improving, hopefully related to placement of bilateral ureteral stents Discussed the case with Dr. Meza in nephrology today 01/02: HD unclear at this point whether this is temporary or whether she will need a permacath for permanent dialysis 01/03: Creatinine continues to improve. Urine output improving. Given renal improvement, she may not need permacath and terminal operations manager dialysis. We will await final word from nephrology. 01/04/2018-appreciate follow from nephrology. Continue on hemodialysis today. Consult placed to interventional radiology for a tunnel dialysis catheter placement. Plans are in motion for outpatient calluses set up 01/05/2018-patient has received a permacath today although in the groin which is not the ideal location. I am being made aware by the nursing staff that there is an ongoing discussion between nephrology and interventional radiology to move the site. On the other hand field case manager is actively working on getting chair time and outpatient dialysis set up for this patient. Most likely this will not be done until Thursday which is the anticipated discharge date at this point of time. 01/06/2018-patient has received a permacath and is undergoing dialysis as per nephrology. We are in the midst of setting up chair time for her starting this Thursday. It seems like even though the groin location of the permacath is not ideal but this was placed after several failed attempts at putting a permacath in the neck region. Aiming for discharge on this Thursday. Patient remains a very high readmission risk despite multiple attempts at decreasing her risk status predominantly based on her interference with the plan of care 01/07-planning for discharge tomorrow so she makes it to chair time at 4 PM (9) CKD (chronic kidney disease) stage 5, GFR less than 15 ml/min Current Visit: No Status: Acute Assessment and plan: Management as above (10) Bradycardia Current Visit: Yes Status: Resolved Assessment and plan: Unsure if this is asymptomatic or symptomatic as patient does complain of epigastric discomfort and nausea, however she describes more reflux-like symptoms and she may have a gastroenteritis. I reviewed telemetry strip from 0900 and it was 28 bpm. A stat ECG done now showed a sinus rhythm with HR 78 bpm, no ST/T wave changes that I can appreciate. Otherwise does have many PVCs. I would like Cardiology to review this as well . Called Cardiology on 12/24 and a review of telemetry Plasterer Journeyman Dr. Zambrano noted that this is not true bradycardia on telemetry. If there remains question, Cardiology will be consulted. HR currently normal Low dose metoprolol was resumed without issue 01/03: Tolerating beta raul well 01/04/2018-bradycardia is more or less resolved. However we will continue to monitor while on telemetry (11) Hypothermia Current Visit: Yes Status: Resolved Assessment and plan: Unsure of cause - TSH, serum cortisol level wnl - resolved Qualifiers: Encounter type: initial encounter Qualified Code(s): T68.XXXA - Hypothermia , initial encounter (12) Sepsis Current Visit: Yes Status: Resolved Qualifiers: Sepsis type: sepsis due to unspecified organism Qualified Code(s): A41.9 - Sepsis, unspecified organism - Time Spent With Patient Total time spent is greater than 50% in coordination of care (as documented) at patient's floor/unit and/or counseling patient: Greater than 35 minutes (More than 50% of the time spent in qbjw-so-bees counseling) - Subjective Interval history: Patient denies any new shortness of breath, chest pain, diarrhea. She again refused her insulin yesterday despite multiple attempts at explaining to her the risks rationale for not refusing. She is very anxious about her blood sugars dropping down below 200s because they make her dizzy at home. I tried to explain to her that here she is in a monitored environment and that we are going to be very careful and not making her bottom. - Constitutional Vitals: Temp Pulse Resp BP Pulse Ox 97.7 F 70 17 146/73 96 01/07/18 08:36 01/07/18 08:36 01/07/18 08:36 01/07/18 08:36 01/07/18 08:36 General appearance: Present: A&O X 3, no acute distress, answers questions appropriately Exam: GENERAL: Alert, no distress, cooperative EYES: PERRLA, EOMI EARS: External ears normal, canals clear OROPHARYNX: Lips, mucosa, and tongue normal. Teeth and gums normal. Oropharynx normal. NECK: No jugulovenous distention, No carotid bruits, Carotid pulse normal contour, Supple LUNGS: Lungs clear to auscultation, Good diaphragmatic excursion CARDIAC: Normal S1 and S2; no rubs, murmurs, or gallops ABDOMEN: Abdomen soft, non-tender, BS normal, No masses or organomegaly EXTREMITIES: Extremities normal, no deformities, edema, clubbing or skin discoloration. Good capillary refill., No ulcers NEURO: Gait normal. Reflexes normal and symmetric. Sensation grossly intact, Cranial nerves II-XII intact PULSES: 2+ radial, 2+ carotid Rest of the exam is non contributory Internal Medicine: Result - Labs CBC & Chem 7: 01/07/18 07:06 01/07/18 07:06 Labs: Short CBC 01/07/18 Range/Units 07:06 WBC 5.0 (4.3-11.1) K/mcL Hgb 8.8 L (11.5-15.4) g/dL Hct 27.4 L (35.3-44.9) % Plt Count 175 (140-400) K/mcL BMP 01/07/18 07:06 Sodium 134 L Potassium 3.9 Chloride 98 Carbon Dioxide 25 BUN 29 H Creatinine 2.19 H Glucose 301 H Calcium 8.3 L - ABG Interpretation ABG results: PT/INR, D-dimer PT 13.7 Seconds (9.4-12.1) H 12/25/17 05:35 - Impressions Impressions Guidance Needle Placement Ultrasound 01/06/18 00:00 IMPRESSION: 1. Left internal jugular vein tunneled dialysis catheter placement as discussed above. D/ / Hubert Dc MD / Hubert Dc MD Interpreting Provider: Hubert Dc MD Insertion Tunneled Catheter 01/06/18 00:00 IMPRESSION: 1. Left internal jugular vein tunneled dialysis catheter placement as discussed above. D/ / Hubert Dc MD / Hubert Dc MD Interpreting Provider: Hubert Dc MD Vena Cavagram, [place] 01/06/18 00:00 IMPRESSION: 1. Left internal jugular vein tunneled dialysis catheter placement as discussed above. D/ / Hubert Dc MD / Hubert Dc MD Interpreting Provider: Hubert Dc MD Catheter Change 01/06/18 12:42 IMPRESSION: 1. Left internal jugular vein tunneled dialysis catheter placement as discussed above. D/ / Hubert Dc MD / Hubert Dc MD Interpreting Provider: Hubert Dc MD - VTE Documentation of Mechanical Device: Intermittent pneumatic compression device Consult Discharge Plan - Plan Additional Instructions: First dialysis appointment will be on ThursdayJanuary 08 at [facility]. Please arrive at 4:00 PM. Address: [address] [place] [address]. Referrals: Macario Diallo MD [Primary Care Provider] - Cruzito Alan DO [Partnered Physician] - 01/08/18 10:15 am
[2018-01-07] MEDS: Insulin DETEMIR 100 UNIT/ML X5UNITS SQ SCH (12:31)
[2018-01-08] MEDS: MetroNIDAZOLE 500 MG/100 ML 500 MG/100 ML BAG IVPB SCH ×2 (01:17→08:18)
[2018-01-08] MEDS: *HR* Heparin 5,000 UNIT/ML VIAL SQ SCH (05:29)
[2018-01-08 07:25] LABS: Hematocrit 27.6 % (35.3-44.9); Hemoglobin 8.8 g/dL (11.5-15.4); Mean Corpuscular HGB Conc 31.9 g/dL (31.6-35.5); Mean Corpuscular Hemoglobin 27.9 pg (28.0-33.3); Mean Corpuscular Volume 87.6 fL (83.0-100.0); Mean Platelet Volume 9.5 fL (9.4-12.4); Platelet Count 207 K/mcL (140-400); Red Blood Count 3.15 M/mcL (3.82-4.97); Red Cell Distribution Width 13.8 % (11.5-14.5)
[2018-01-08 07:36] LABS: Calcium 8.3 mg/dL (8.6-10.3); Potassium 4.8 mEq/L (3.5-5.1)
[2018-01-08] MEDS ORDERED: *HR* Heparin 10,000 UNIT/10 ML VIAL IV PRN (07:42)
[2018-01-08] MEDS ORDERED: 0.9 % Sodium Chloride 250 ML IVC PRN (07:42)
[2018-01-08] MEDS ORDERED: 0.9 % Sodium Chloride 1,000 ML PRIME SCH (07:45)
[2018-01-08] MEDS ORDERED: 0.9 % Sodium Chloride 1,000 ML ONE (07:54)
[2018-01-08 08:07] VITALS: BP 129/63
[2018-01-08] MEDS: Aspirin Enteric Coated 81 MG Tablet PO SCH (08:17)
[2018-01-08] MEDS: Folic Acid 1 MG TABLET PO SCH (08:17)
[2018-01-08] MEDS: Lactobacillus 1 EACH CAP.SPRINK PO SCH (08:17)
[2018-01-08] MEDS: Renal Vitamin 1 MG CAPSULE PO SCH (08:17)
[2018-01-08] MEDS: Cholecalciferol (D-3) 1,000 UNIT TABLET PO SCH (08:17)
[2018-01-08] MEDS: Insulin LISPRO 300 UNITS/3 ML VIAL SQ SCH (08:18)
[2018-01-08] MEDS: Leptospermum Honey GEL 1 APPL/5 ML MLS TP SCH (08:18)
[2018-01-08] MEDS: Insulin DETEMIR 100 UNIT/ML X5UNITS SQ SCH (08:18)
--- NOTE | 2018-01-08 08:31 | Nephrology Progress Note ---
Date of Encounter: 01/08/18 Time of Encounter: 08:29 - Assessment and Plan (1) Acute kidney injury superimposed on chronic kidney disease Status: Acute Continue to avoid nephrotoxins and renal dose medications. May go home today, has a chair time for 1600 today at [facility]. (2) Anemia Status: Acute Gogb 10-11. Hgb 8.8, will continue to manage at outpatient dialysis. Qualifiers: Anemia type: due to chronic kidney disease Chronic kidney disease stage: stage 5, not on chronic dialysis Qualified Code(s): N18.5 - Chronic kidney disease, stage 5; D63.1 - Anemia in chronic kidney disease (3) PNA (pneumonia) Status: Acute Per primary team. Qualifiers: Pneumonia type: due to unspecified organism Laterality: right Lung location: upper lobe of lung Qualified Code(s): J18.1 - Lobar pneumonia, unspecified organism (4) UTI (urinary tract infection) Status: Acute Resolved. Qualifiers: Urinary tract infection type: site unspecified Hematuria presence: without hematuria Qualified Code(s): N39.0 - Urinary tract infection, site not specified (5) Generalized weakness Status: Acute Per primary team. Subjective Principal diagnosis: hypotension Interval history: Pt seen and examined sitting up eating breakfast. Objective - Vital Signs Vital signs: Vital Signs Temp Pulse Resp BP Pulse Ox 01/08/18 08:06 98.3 F 74 15 129/63 97 01/08/18 03:55 98.7 F 76 16 142/78 96 01/07/18 23:25 98.3 F 83 16 150/81 94 01/07/18 19:09 98.2 F 80 16 149/73 99 01/07/18 15:39 97.6 F 73 14 153/80 100 01/07/18 11:55 97.5 F L 68 16 156/83 98 01/07/18 08:36 97.7 F 70 17 146/73 96 Intake and Output 01/07/18 01/08/18 01/08/18 23:59 07:59 15:59 Intake Total 820 / 820 100 / 100 Output Total 450 / 450 Balance 370 / 370 100 / 100 Intake: IV Fluids 100 / 100 100 / 100 Flagyl Premix 500 MG/100 ML 500 100 / 100 100 / 100 mg In 100 ml @ 100 mls/hr IVPB Q8H VIKA Rx#:[id number] Oral 720 / 720 Output: Catheter 450 / 450 Other: Meal Dinner Percent of Meal Consumed 100% Stool Size Smear Stool Consistency soft Stool Characteristics Mucoid Stool Color Brown # Bowel Movement Diapers 1 Weight 59.2 kg Blood Glucose* 265 213 Patient Weight 01/08/18 23:59 Weight 59.2 kg - General Appearance General appearance: Present: chronically ill EENT: Present: ATNC, hearing intact, vision intact Neck: Present: supple Respiratory: Present: clear Cardiology: Present: no edema, regular rate, regular rhythm, normal S1, normal S2 Dialysis Vascular Access: Venous Catheter (Tunneled DRSG C/D/I.) Gastrointestinal: Present: normoactive bowel sounds, no tenderness, no guarding Integumentary: Present: no rash, warm and dry Neurologic: Present: alert and oriented x3 Psychiatric: Present: mood/affect appropriate, cooperative - Lab 01/08/18 06:34 01/08/18 06:34 Most recent lab results Calcium 8.3 mg/dL (8.6-10.3) L 01/08/18 06:34 Phosphorus 4.3 mg/dL (2.7-4.5) 12/24/17 09:09 Magnesium 1.7 mg/dL (1.6-2.6) 12/24/17 09:09 - VTE Documentation of Mechanical Device: Intermittent pneumatic compression device Consult Discharge Plan - Plan Instructions: Folic Acid (By mouth), Viral Pneumonia (DC), Clostridium Difficile Infection (DC) Additional Instructions: First dialysis appointment will be on ThursdayJanuary 08 at [facility]. Please arrive at 4:00 PM. Address: [address] [place] [address]. Referrals: Macario Diallo MD [Primary Care Provider] - Cruzito Alan DO [Partnered Physician] - 01/08/18 10:15 am Prescriptions: Folic Acid 1 mg PO DAILY 30 Days #30 tab Renal Vitamin [Renal Caps Softgel] 1 mg PO DAILY 30 Days #30 capsule
--- NOTE | 2018-01-08 10:22 | Internal Med Progress Note ---
Date of Encounter: 01/08/18 Time of Encounter: 10:20 - Assessment and plan (1) Diabetes mellitus Current Visit: No Status: Chronic Assessment and plan: 01/03: Isnulin Dependent Type 2 DM Blood sugar is elevated. Patient has been refusing insulin at times. Will attempt to convince her to take insulin. Blood sugars remain elevated. Currently: Levemir 45 untis sub daily SSI 01/04/2018-patient has been continuing to refuse insulin at times. I have educated her again regarding taking her medications. For now we will continue to check her Accu-Cheks before meals and at bedtime and scheduled sliding scale insulin 01/05/18-patient continues to refuse her Levemir at bedtime. I have strongly advocated her that she does take the medications as prescribed. Patient verbalized that she is going to be more cognizant and will in fact go ahead and take the medications in the presence of the nursing staff. I will continue to monitor her closely because her sugars are all over the place with her continued refusal. She does appear to have capacity to make her medical decisions 01/06/2018-I was informed by the nursing staff this morning that the patient's sugars have been all over the place. This is again due to the fact that the patient is extremely anxious and refuses medication based on her believes. I made it clear to the patient that she should not refuse medications and that this would put her at a very high readmission risk if she continues to make medical decisions on her own and not follow the plan that we set out for her. She wishes compliance and I hope that today would be better than yesterday. 01/07/2018-patient was again hesitant in taking further insulins yesterday. Today she is agreeable to take at least 10 units of Levemir and keep the sliding scale on. Aiming for discharge tomorrow. This will give her at least another day of better blood sugars. Again this morning her blood sugar the North of 350 which is very concerning. I am beginning to feel that no regardless of what we do this patient is reasonably very high readmission risk given her presumptive thoughts about medications 01/08/2018 patient doing well. She did take her insulins and her sugars are in the 200 range which is where she wants them to be at. I will not make any drastic changes to her home insulin dosing at this point and I will leave her on her home Lantus dosing. She will manage her short-acting insulins based on the prior recommended sliding scale at home. She is being on a be set up with home home nursing and home health aide to assist in managing these chronic conditions. Qualifiers: Diabetes mellitus type: type 2 Diabetes mellitus fci insulin use: with terminal operator use Diabetes mellitus complication status: with kidney complications Diabetes mellitus complication detail: with chronic kidney disease Chronic kidney disease stage: stage 3 (moderate) Qualified Code(s): E11.22 - Type 2 diabetes mellitus with diabetic chronic kidney disease; N18.3 - Chronic kidney disease, stage 3 (moderate); Z79.4 - care home (current) use of insulin (2) Hyponatremia Current Visit: No Status: Chronic Assessment and plan: Chronic. Patient is on by mouth sodium chloride pills, will continue Borderline to normal range in past several days. Management per Nephrology 01/01: Improved, As per nephrology Was in part due to elevated blood sugar 01/05/2018-stable. Continue to monitor (3) HTN (hypertension) Current Visit: No Status: Chronic Assessment and plan: SBP now running 140-160s, metoprolol resumed, will monitor. Was holding initially metoprolol because of suspected severe bradycardia on telemetry, though this turned out not a true bradycardia 12/30: Blood pressure overall stable. Monitor. 12/31: Mildly elevated today. Although she is scheduled for hemodialysis. No medication changes. Monitor 01/01: Improving Patient is on Lopressor 12.5 mg by mouth twice a day. IV hydralazine when necessary. 01/03: Blood pressure improved Lopressor 12.5 mg by mouth twice a day 01/05/2018-blood pressure stable. Continue to monitor Lopressor Qualifiers: Hypertension type: essential hypertension Qualified Code(s): I10 - Essential (primary) hypertension (4) DVT prophylaxis Current Visit: No Status: Acute Assessment and plan: Heparin subcutaneously (5) Clostridium difficile colitis Current Visit: No Status: Suspected Assessment and plan: Likely cause for n/v, diarrhea, Continue PO vancomycin 01/04 Day #7 of 10 days total therapy Vancomycin 125 mg po QID.. Diarrhea has resolved. However the patient did refuse a few days of vancomycin therapy and hence her neck number of days comes down to 7 .I will continue her on total 10 days of duration. 01/05/18-patient has refused oral vancomycin on multiple occasions. I have double checked with the pharmacy that she has done with 6 out of 10 days of her C. difficile treatment. I will switch her to IV Flagyl in the meantime to complete the rest of the 4 days. 01/06/2018-I plan to continue IV Flagyl through Thursday which will be the tentative date of discharge for this patient given her multiple issues with refusing medications. I did double check with the clinical pharmacist on the floor and this seems to be a reasonable time frame for C. difficile treatment in her case. Like already mentioned her diarrhea and nausea vomiting have significantly resolved and now we are planning on arranging for disposition at this point. 01/07-last dose of Flagyl tomorrow. Planning discharge tomorrow so that she can make it to chair time 01/08-rays the last day of IV Flagyl and she would have finished total 10 day course. No further antibiotics recommended for discharge (6) Obstructive uropathy Current Visit: No Status: Chronic Assessment and plan: Status post bilateral ureteral stents on December 29. Patient has been improved since this time. Renal function is improving. (7) Nausea vomiting and diarrhea Current Visit: No Status: Resolved Assessment and plan: - ADAT; Currently clear liquid diet. Still complaints of nausea/vomiting. - Possible etiologies based on her history: uremia, C diff colitis, UTI - Symptomatic treatment for nausea and vomiting - ADAT - Nephrology for management of MERNA on CKD, continue IV antibiotics, continue oral vancomycin, follow-up cultures. 12/30: Resolved (8) Acute kidney injury superimposed on chronic kidney disease Current Visit: No Status: Acute (9) CKD (chronic kidney disease) stage 5, GFR less than 15 ml/min Current Visit: No Status: Acute Assessment and plan: Management as above (10) Bradycardia Current Visit: Yes Status: Resolved Assessment and plan: Unsure if this is asymptomatic or symptomatic as patient does complain of epigastric discomfort and nausea, however she describes more reflux-like symptoms and she may have a gastroenteritis. I reviewed telemetry strip from 0900 and it was 28 bpm. A stat ECG done now showed a sinus rhythm with HR 78 bpm, no ST/T wave changes that I can appreciate. Otherwise does have many PVCs. I would like Cardiology to review this as well . Called Cardiology on 12/24 and a review of telemetry Manager Program Dr. Zambrano noted that this is not true bradycardia on telemetry. If there remains question, Cardiology will be consulted. HR currently normal Low dose metoprolol was resumed without issue 01/03: Tolerating beta raul well 01/04/2018-bradycardia is more or less resolved. However we will continue to monitor while on telemetry (11) Hypothermia Current Visit: Yes Status: Resolved Assessment and plan: Unsure of cause - TSH, serum cortisol level wnl - resolved Qualifiers: Encounter type: initial encounter Qualified Code(s): T68.XXXA - Hypothermia , initial encounter (12) Sepsis Current Visit: Yes Status: Resolved Assessment and plan: Today patient had 3 SIRS criteria; tachycardia (though she did refuse metoprolol this AM), leukocytosis of 14k, and fever of 100.6 F Likely UTI related, but cannot exclude other etiologies. Might have worsening C diff as she is refusing PO vancomycin. Patient had some improvement on Zosyn but after de-escalating therapy to Rocephin, patient. Given she was recently in a hospital and currently not much activity should rule out pneumonia as well. Repeat blood cultures, urine cultures, repeat imaging for any source of infection. Close monitoring of vital signs Escalate antibiotic therapy back to Zosyn 12/30: As above. Vitals are stable. Afebrile today. Monitor. 01/01: Resolved. Zosyn was stopped 01/03: Sepsis due to UTI with obx uropathy s/p Bilateral Ureteral stents on 12/29/17, as well as Sepsis due to C. Diff Colitis, present on admission, sepsis now resolved Patient is off antibiotics with the exception of enteric vancomycin for C. difficile colitis (Day #7 of 10 days total). She is doing well. I would strongly consider empiric treatment for C. difficile in the future should she ever require antibiotics. Qualifiers: Sepsis type: sepsis due to unspecified organism Qualified Code(s): A41.9 - Sepsis, unspecified organism - Time Spent With Patient Total time spent is greater than 50% in coordination of care (as documented) at patient's floor/unit and/or counseling patient: Greater than 35 minutes - Subjective Interval history: Patient is doing very well overnight. She does not have any more diarrhea or nausea or vomiting. She was to go home. She does have chair time set up for 4 PM tonight. - Constitutional Vitals: Temp Pulse Resp BP Pulse Ox 98.3 F 74 15 129/63 97 01/08/18 08:06 01/08/18 08:06 01/08/18 08:06 01/08/18 08:06 01/08/18 08:06 General appearance: Present: A&O X 3, no acute distress, answers questions appropriately Exam: GENERAL: Alert, no distress, cooperative EYES: PERRLA, EOMI EARS: External ears normal, canals clear OROPHARYNX: Lips, mucosa, and tongue normal. Teeth and gums normal. Oropharynx normal. NECK: No jugulovenous distention, No carotid bruits, Carotid pulse normal contour, Supple LUNGS: Lungs clear to auscultation, Good diaphragmatic excursion CARDIAC: Normal S1 and S2; no rubs, murmurs, or gallops ABDOMEN: Abdomen soft, non-tender, BS normal, No masses or organomegaly EXTREMITIES: Extremities normal, no deformities, edema, clubbing or skin discoloration. Good capillary refill., No ulcers NEURO: Gait normal. Reflexes normal and symmetric. Sensation grossly intact, Cranial nerves II-XII intact PULSES: 2+ radial, 2+ carotid Rest of the exam is non contributory Internal Medicine: Result - Labs CBC & Chem 7: 01/08/18 06:34 01/08/18 06:34 Labs: Short CBC 01/08/18 Range/Units 06:34 WBC 6.0 (4.3-11.1) K/mcL Hgb 8.8 L (11.5-15.4) g/dL Hct 27.6 L (35.3-44.9) % Plt Count 207 (140-400) K/mcL BMP 01/08/18 06:34 Sodium 132 L Potassium 4.8 Chloride 99 Carbon Dioxide 25 BUN 40 H Creatinine 2.43 H Glucose 223 H Calcium 8.3 L - ABG Interpretation ABG results: PT/INR, D-dimer PT 13.7 Seconds (9.4-12.1) H 12/25/17 05:35 - VTE Documentation of Mechanical Device: Intermittent pneumatic compression device Consult Discharge Plan - Plan Instructions: Viral Pneumonia (DC), Clostridium Difficile Infection (DC) Additional Instructions: First dialysis appointment will be on ThursdayJanuary 08 at [facility]. Please arrive at 4:00 PM. Address: [address] [place] [address]. Referrals: Macario Diallo MD [Primary Care Provider] - Cruzito Alan DO [Partnered Physician] - 01/08/18 10:15 am Prescriptions: Folic Acid 1 mg PO DAILY 30 Days #30 tab Renal Vitamin [Renal Caps Softgel] 1 mg PO DAILY 30 Days #30 capsule
--- NOTE | 2018-01-08 10:25 | Physician Discharge Referral ---
Home Health/Hosp Referral Info Provider in Charge Post Discharge: PCP - Diagnosis (1) Diabetes mellitus Priority: Secondary Status: Chronic (2) Hyponatremia Priority: Secondary Status: Chronic (3) HTN (hypertension) Priority: Secondary Status: Chronic (4) DVT prophylaxis Priority: Secondary Status: Acute (5) Clostridium difficile colitis Priority: Secondary Status: Suspected (6) Obstructive uropathy Priority: Secondary Status: Chronic (7) Nausea vomiting and diarrhea Status: Resolved (8) Acute kidney injury superimposed on chronic kidney disease Priority: Secondary Status: Acute (9) CKD (chronic kidney disease) stage 5, GFR less than 15 ml/min Priority: Secondary Status: Acute (10) Bradycardia Priority: Secondary Status: Resolved (11) Hypothermia Priority: Secondary Status: Resolved (12) Sepsis Priority: Secondary Status: Resolved - Respiratory Orders Smoking Cessation: Smoking cessation has been advised. For more information, call the [place] [employer] Quit Line at 9-961-FBPQ-NOW. - Services Needed Following services are medically necessary services: Nursing, Home Health Aide ( Needs a close monitoring of the patient's blood sugars, vital signs, diarrhea that has now resolved-the patient is got over a C. difficile diarrhea) - Transfer Medications Prescriptions: Folic Acid 1 mg PO DAILY 30 Days #30 tab Renal Vitamin [Renal Caps Softgel] 1 mg PO DAILY 30 Days #30 capsule Home Medications: Metoprolol [Lopressor] 12.5 mg PO BID 03/01/16 [History] Aspirin Enteric Coated [Aspirin EC] 81 mg PO DAILY 08/04/17 [History] Oxygen 2 l NS AD 08/04/17 [History] Ferrous Sulfate 325 mg PO BID 10/28/17 [History] Pravastatin Sodium [Pravachol] 10 mg PO HS 10/28/17 [History] Cholecalciferol (Vitamin D3) [Vitamin D3] 1,000 unit PO DAILY 11/16/17 [History] Insulin Glargine,Hum.rec.anlog [Basaglar Kwikpen U-100] 40 unit SQ HS 11/16/17 [ History] Folic Acid 1 mg PO DAILY 30 Days #30 tab 01/08/18 [Rx] Lactobacillus [Culturelle] 2 each PO DAILY cap.sprink 01/08/18 [Rx] Leptospermum Honey GEL [Medihoney Gel] 1 appl TP BID mls 01/08/18 [Rx] Methyl Salicylate/Menthol [Bengay] 1 appl TP BID PRN tube 01/08/18 [Rx] Renal Vitamin [Renal Caps Softgel] 1 mg PO DAILY 30 Days #30 capsule 01/08/18 [ Rx] Allergies/Adverse Reactions: 3 Allergy/AdvReac Type Severity Reaction Status Date / Time acetaminophen [From Tylenol] Allergy See Verified 12/22/17 19:03 Comments Influenza Virus Vaccines Allergy See Verified 12/22/17 19:03 Comments Certification: Further, I certify that my clinical findings support that this patient is homebound (i.e. absences from home require considerable and taxing effort and are for medical reasons or worship services or infrequently or short duration when for other reasons) because: Homebound Reason: Patient requires assistance of a person or device to safely leave home Attestation: My signature below is to certify that this patient is under my care and that I, or nurse practitioner, or a physician's professional nursing assistant working with me, has a face-to -face encounter with this patient.
== END 2018-01-08 10:44 | disposition home health service (06) | DRG 871 ==
LOC: EMEROO 15:34 → 3ANU 15:34 → SUATTDRO 21:33 → 3ANU 12-28 14:50
PROVIDERS: ADMIT Internal Medicine; ATTEND Internal Medicine
PROC: IRPERMA (2017-12-25 11:00)

== ENCOUNTER 2018-03-16 13:11 | Observation (INO) ==
--- NOTE | 2018-03-16 13:45 | Emergency Department Note ---
Disposition Clinical Impression: UTI (urinary tract infection) Qualifiers: Urinary tract infection type: acute cystitis Hematuria presence: without hematuria Qualified Code(s): N30.00 - Acute cystitis without hematuria Disposition: Home, Self-Care Condition: Good Forms: ED Satisfaction Letter, Work/School Release Time of Disposition: 17:37 General Adult HPI - General Chief complaint: ED General Medical Stated complaint: blood infection Time Seen by Provider: 03/16/18 13:24 Nursing Notes Reviewed: Yes Vital Signs Reviewed: Yes - History of Present Illness HPI Narrative: Dialysis Pt who does Tues thus sat dialysis was on the machine today for 2 hours when she began to vomit that was Yellow in color. She was found to be febrile at that time. She denies Abd pain. She reports frequent UTIs, she states that she does make urine but denies any burning or increased frequency. She just recently had a Madden catheter removed. She had this chronically placed. She states that she is urinating on herself and wishes for this to be placed back. She denies any missed dialysis appointments. She does not know what her temperature was there. She is not febrile here. She is tahcycardic. She reports a recent history within the past couple of months, however she has no CP or SOB at this time. She denies any complications with her dialysis catheter. Pain Scale: 4 - Related Data Home Medications Medication Instructions Recorded Confirmed Metoprolol [Lopressor] 12.5 mg PO BID 03/01/16 03/16/18 Aspirin Enteric Coated [Aspirin EC] 81 mg PO DAILY 08/04/17 03/16/18 Oxygen 2 l NS AD 08/04/17 03/16/18 Ferrous Sulfate 325 mg PO BID 10/28/17 03/16/18 Pravastatin Sodium [Pravachol] 10 mg PO HS 10/28/17 03/16/18 Cholecalciferol (Vitamin D3) 1,000 unit PO DAILY 11/16/17 03/16/18 [Vitamin D3] Insulin Glargine,Hum.rec.anlog 40 unit SQ HS 11/16/17 03/16/18 [Basaglar Kwikpen U-100] Previous Rx's Medication Instructions Recorded Folic Acid 1 mg PO DAILY 30 Days #30 tab 01/08/18 Lactobacillus [Culturelle] 2 each PO DAILY cap.sprink 06/08/18 Leptospermum Honey GEL [Medihoney 1 appl TP BID mls 01/08/18 Gel] Methyl Salicylate/Menthol [Bengay] 1 appl TP BID PRN tube 01/08/18 Renal Vitamin [Renal Caps Softgel] 1 mg PO DAILY 30 Days #30 capsule 01/08/18 Allergies Allergy/AdvReac Type Severity Reaction Status Date / Time acetaminophen [From Tylenol] Allergy See Verified 12/22/17 19:03 Comments Influenza Virus Vaccines Allergy See Verified 12/22/17 19:03 Comments NSAIDS (Non-Steroidal Allergy See Verified 02/05/18 02:56 Anti-Inflamma Comments All systems ED: reviewed and negative except as stated. Constitutional: Reports: fever (Possible fever today while at dialysis. Unknown if it was 99.8 or 100.8.). Denies: chills Cardiovascular: Denies: chest pain, palpitations, syncope Respiratory: Denies: cough, dyspnea Gastrointestinal: Reports: nausea, vomiting. Denies: abdominal pain, diarrhea, hematemesis, melena, hematochezia Genitourinary: Denies: urgency, dysuria, frequency Musculoskeletal: Denies: back pain, neck pain Neurological: Reports: weakness. Denies: headache Past Medical History - Past Medical History Attestation: Yes The following information was validated with the patient. Source: patient Medical history: Reports: diabetes, hyperlipidemia, hypertension, renal disease , other Surgical history: Reports: appendectomy, cholecystectomy, hysterectomy Psychiatric history: Reports: anxiety [employer]OL[employer] history: Reports: no [employer] history - Social History Smoking Status: Never smoker Smokeless Tobacco Status: No Alcohol use: Reports: none Drug use: Reports: none Physical Exam - General Limitations: no limitations General appearance: alert, other (Appears tired.) - Head Head exam: atraumatic, normocephalic, normal inspection - Eye Eye exam: Present: normal appearance, PERRL, EOMI - ENT ENT exam: normal exam, normal oropharynx, mucous membranes dry - Neck Neck exam: Present: normal inspection, full ROM, trachea midline - Chest Chest inspection: Present: normal inspection, symmetric chest wall rise - Respiratory Respiratory exam: Present: normal lung sounds bilaterally. Absent: respiratory distress, accessory muscle use - Cardiovascular Cardiovascular exam: Present: regular rate, normal rhythm, normal heart sounds - Abdominal Exam Abdominal exam: Present: soft, tenderness (Right upper right lower and epigastric area.), guarding. Absent: distention, rebound, rigidity, organomegaly, mass - Extremities Exam Extremities exam: Present: normal inspection, full ROM, normal capillary refill. Absent: tenderness, pedal edema - Neurological Exam Neurological exam: Present: alert, oriented X3 - Psychiatric Psychiatric exam: Present: normal affect, normal mood - Skin Skin exam: Present: warm, dry, intact, normal color. Absent: rash, cyanosis, diaphoresis, erythema Course Course Narrative: Female patient resting in bed. She is alert and oriented. Denies any abdominal pain however on exam she does grimace whenever I palpate her right upper epigastric and right lower area. He is requesting that we replace her Madden catheter as she is urinating on herself and she does not appreciate this. Patient does not know who her applied researcher is. We will get basic lab workup on patient. We will provide her with nausea medication while here. She does have a bilious vomitus in the room. She did vomit when she got here. We will also get a CT of patient's abdomen due to her pain on palpation. Patient's abdomen is not rigid not scaphoid. She reports feeling well this morning. States it all started all of a sudden while she was on the dialysis machine. - Reevaluation(s) Reevaluation #1: Patient does have air in her bladder wall. He states that he did do a cystoscopy on the patient yesterday and remove her Madden and renal stents. He states that the area is not abnormal after the cystoscopy. He states that he is very familiar with the patient and is requesting we placed the patient on Rocephin. He believes that this will be the best antibiotic for her at this time for her UTI. We did admit the patient to the hospital. We have withheld fluids as the patient is a dialysis patient and did not receive her full treatment today. - Consultations Consultation #1: I spoke with Dr Gutierrez. He is very familiar with the Pt. He suggested that we use rocephin for her UTI. He will see the Pt in the morning. Time: 17:33 Vital Signs Temperature 99.2 F 03/16/18 13:20 Pulse Rate 112 03/16/18 13:20 Respiratory Rate 18 03/16/18 13:20 Blood Pressure 127/63 03/16/18 13:20 O2 Sat by Pulse Oximetry 97 03/16/18 13:20 Temperature 99.2 F 03/16/18 15:18 Pulse Rate 112 03/16/18 15:18 Respiratory Rate 18 03/16/18 15:18 Blood Pressure 127/63 03/16/18 15:18 O2 Sat by Pulse Oximetry 97 03/16/18 15:18 Oxygen Delivery Oxygen Delivery Room Air Medical Decision Making - Medical Records Medical records reviewed: Yes I reviewed the patient's medical records. - Lab Data Lab results reviewed: Yes I reviewed the patient's lab results. Result diagrams: 03/16/18 14:03 03/16/18 14:03 Lab Results 03/16/18 03/16/18 03/16/18 Range/Units 14:03 14:03 15:44 WBC 15.6 H (4.3-11.1) K/mcL RBC 3.91 (3.82-4.97) M/mcL Hgb 10.4 L (11.5-15.4) g/dL Hct 32.4 L (35.3-44.9) % MCV 82.9 L (83.0-100.0) fL MCH 26.6 L (28.0-33.3) pg MCHC 32.1 (31.6-35.5) g/dL RDW 14.4 (11.5-14.5) % Plt Count 328 (140-400) K/mcL MPV 9.0 L (9.4-12.4) fL Immature Gran % 0.3 (0-4) % Seg Neutrophils % 86.3 % Lymphocytes % 6.3 % Monocytes % 6.9 % Eosinophils % 0.1 % Basophils % 0.1 % Neutrophils # 13.5 H (1.6-8.9) K/mcL Lymphocytes # 1.0 (0.6-4.6) K/mcL Monocytes # 1.1 (0.0-1.3) K/mcL Eosinophils # 0.0 (0.0-0.6) K/mcL Basophils # 0.0 (0.0-0.2) K/mcL Sodium 131 L (136-145) mEq/L Potassium 3.3 L (3.5-5.1) mEq/L Chloride 98 (98-107) mEq/L Carbon Dioxide 24 (23-29) mEq/L BUN 21 (8-23) mg/dL Creatinine 1.95 H (0.60-1.20) mg/dL Est GFR ( Amer) 30 L (> 60) Est GFR (Non-Af Amer) 25 L (> 60) BUN/Creatinine Ratio 11 (6-26) Glucose 276 H (70-105) mg/dL Calculated Osmolality 285 (280-300) Calcium 7.8 L (8.6-10.3) mg/dL Total Bilirubin 0.4 (0.3-1.0) mg/dL AST 6 L (13-39) Units/L ALT 3 L (7-52) Units/L Alkaline Phosphatase 140 H (34-104) Units/L Serum Total Protein 8.0 (6.4-8.9) g/dL Albumin 2.8 L (3.5-5.7) g/dL Globulin 5.2 H (2.4-3.5) g/dL Albumin/Globulin Ratio 0.5 L (1.1-2.2) Urine Color Yellow (Yellow) Urine Clarity Turbid A (Clear) Urine pH 6.0 (5.0-8.0) pH Units Ur Specific [place] 1.018 (1.010-1.025) Urine Protein >=300 H (Neg-Trace) mg/dL Urine Glucose (UA) Normal (Normal) mg/dL Urine Ketones Trace H (Negative) mg/dL Urine Blood Large H (Negative) Urine Nitrite Negative (Negative) Urine Bilirubin Negative (Negative) Urine Urobilinogen Normal (Normal) mg/dL Ur Leukocyte Esterase Large H (Negative) Urine Microscopic RBC 5-15 H (0-3) per hpf Urine Microscopic WBC TNTC H (0-3) per hpf Ur Squamous Epith Cells Many H (None-Few) per lpf Urine Bacteria Few (None-Few) per hpf Hyaline Casts None Seen (None-Few) per lpf Ur Culture Indicated? NO. A (NO) - Radiology Data Radiology results reviewed: Yes I reviewed the patient's radiology results.
[2018-03-16] MEDS ORDERED: Ondansetron 4 MG/2 ML VIAL IVP ONE (13:48)
[2018-03-16 14:13] LABS: Basophils % 0.1 %; Eosinophils % 0.1 %; Hematocrit 32.4 % (35.3-44.9); Hemoglobin 10.4 g/dL (11.5-15.4); Immature Granulocytes % 0.3 % (0-4); Lymphocytes % 6.3 %; Mean Corpuscular HGB Conc 32.1 g/dL (31.6-35.5); Mean Corpuscular Hemoglobin 26.6 pg (28.0-33.3); Mean Corpuscular Volume 82.9 fL (83.0-100.0); Monocytes # 1.1 K/mcL (0.0-1.3); Monocytes % 6.9 %; Neutrophils # 13.5 K/mcL (1.6-8.9); Platelet Count 328 K/mcL (140-400); Red Blood Count 3.91 M/mcL (3.82-4.97); Red Cell Distribution Width 14.4 % (11.5-14.5); Segmented Neutrophils % 86.3 %
[2018-03-16 14:39] LABS: Albumin 2.8 g/dL (3.5-5.7); Albumin/Globulin Ratio 0.5 (1.1-2.2); Bilirubin,Total 0.4 mg/dL (0.3-1.0); Calcium 7.8 mg/dL (8.6-10.3); Globulin 5.2 g/dL (2.4-3.5); Potassium 3.3 mEq/L (3.5-5.1)
[2018-03-16 15:57] LABS: Bilirubin,Urine Negative (Negative); Blood,Urine Large (Negative); Clarity,Urine Turbid (Clear); Color,Urine Yellow (Yellow); Glucose,Urine (UA) Normal (Normal); Ketones,Urine Trace mg/dL (Negative); Leukocyte Esterase,Urine Large (Negative); Nitrite,Urine Negative (Negative); Protein,Urine >=300 mg/dL (Neg-Trace); Specific Gravity,Urine 1.018 (1.010-1.025); Urobilinogen,Urine Normal (Normal)
[2018-03-16 16:02] LABS: Bacteria,Urine Few per hpf (None-Few); Squamous Epithelial Cell,Urine Many per lpf (None-Few); WBC,Urine TNTC per hpf (0-3)
[2018-03-16 16:26] LABS: Hyaline Casts,Urine None Seen per lpf (None-Few)
[2018-03-16] MEDS ORDERED: Piperacillin/Tazobactam 3.375 GM in 0.9 % Sodium Chloride Mini Bag 100 ML IVPB ONE (17:17)
[2018-03-16] MEDS ORDERED: cefTRIAXone 1,000 MG in Water for inj. (sterile) 20 ML 10 ML IVP ONE (17:27)
--- NOTE | 2018-03-16 18:19 | Emergency Department Note ---
Disposition Clinical Impression: UTI (urinary tract infection) Qualifiers: Urinary tract infection type: acute cystitis Hematuria presence: without hematuria Qualified Code(s): N30.00 - Acute cystitis without hematuria Disposition: Admitted As Inpatient Condition: Good Referrals: Macario Diallo MD [Primary Care Provider] - Forms: Work/School Release, ED Satisfaction Letter General Adult HPI - General Chief complaint: ED Nausea/Vomiting/Diarrhea Stated complaint: blood infection Time Seen by Provider: 03/16/18 13:24 Source: patient Limitations: no limitations Nursing Notes Reviewed: Yes Vital Signs Reviewed: Yes - History of Present Illness Pain Scale: 4 - Related Data Home Medications Medication Instructions Recorded Confirmed Metoprolol [Lopressor] 12.5 mg PO BID 03/01/16 03/16/18 Aspirin Enteric Coated [Aspirin EC] 81 mg PO DAILY 08/04/17 03/16/18 Oxygen 2 l NS AD 08/04/17 03/16/18 Ferrous Sulfate 325 mg PO BID 10/28/17 03/16/18 Pravastatin Sodium [Pravachol] 10 mg PO HS 10/28/17 03/16/18 Cholecalciferol (Vitamin D3) 1,000 unit PO DAILY 11/16/17 03/16/18 [Vitamin D3] Insulin Glargine,Hum.rec.anlog 40 unit SQ HS 11/16/17 03/16/18 [Basaglar Kwikpen U-100] Previous Rx's Medication Instructions Recorded Folic Acid 1 mg PO DAILY 30 Days #30 tab 01/08/18 Lactobacillus [Culturelle] 2 each PO DAILY cap.sprink 01/08/18 Leptospermum Honey GEL [Medihoney 1 appl TP BID mls 01/08/18 Gel] Methyl Salicylate/Menthol [Bengay] 1 appl TP BID PRN tube 01/08/18 Renal Vitamin [Renal Caps Softgel] 1 mg PO DAILY 30 Days #30 capsule 01/08/18 Allergies Allergy/AdvReac Type Severity Reaction Status Date / Time acetaminophen [From Tylenol] Allergy See Verified 12/22/17 19:03 Comments Influenza Virus Vaccines Allergy See Verified 12/22/17 19:03 Comments NSAIDS (Non-Steroidal Allergy See Verified 02/05/18 02:56 Anti-Inflamma Comments Constitutional: Reports: fever (Possible fever today while at dialysis. Unknown if it was 99.8 or 100.8.). Denies: chills Cardiovascular: Denies: chest pain, palpitations, syncope Respiratory: Denies: cough, dyspnea Gastrointestinal: Reports: nausea, vomiting. Denies: abdominal pain, diarrhea, hematemesis, melena, hematochezia Genitourinary: Denies: urgency, dysuria, frequency Musculoskeletal: Denies: back pain, neck pain Neurological: Reports: weakness. Denies: headache Past Medical History - Past Medical History Medical history: Reports: diabetes, hyperlipidemia, hypertension, renal disease , other Surgical history: Reports: appendectomy, cholecystectomy, hysterectomy Psychiatric history: Reports: anxiety CONFIGURATION DEVELOPER history: Reports: no CONFIGURATION DEVELOPER history - Social History Smoking Status: Never smoker Smokeless Tobacco Status: No Alcohol use: Reports: none Drug use: Reports: none Physical Exam - General Limitations: no limitations General appearance: alert, other (Appears tired.) Course Vital Signs Temperature 99.2 F 03/16/18 13:20 Pulse Rate 112 03/16/18 13:20 Respiratory Rate 18 03/16/18 13:20 Blood Pressure 127/63 03/16/18 13:20 O2 Sat by Pulse Oximetry 97 03/16/18 13:20 Temperature 99.2 F 03/16/18 15:18 Pulse Rate 112 03/16/18 15:18 Respiratory Rate 18 03/16/18 15:18 Blood Pressure 127/63 03/16/18 15:18 O2 Sat by Pulse Oximetry 97 03/16/18 15:18 Oxygen Delivery Oxygen Delivery Room Air Medical Decision Making - Lab Data Result diagrams: 03/16/18 14:03 03/16/18 14:03 Lab Results 03/16/18 03/16/18 03/16/18 Range/Units 14:03 14:03 15:44 WBC 15.6 H (4.3-11.1) K/mcL RBC 3.91 (3.82-4.97) M/mcL Hgb 10.4 L (11.5-15.4) g/dL Hct 32.4 L (35.3-44.9) % MCV 82.9 L (83.0-100.0) fL MCH 26.6 L (28.0-33.3) pg MCHC 32.1 (31.6-35.5) g/dL RDW 14.4 (11.5-14.5) % Plt Count 328 (140-400) K/mcL MPV 9.0 L (9.4-12.4) fL Immature Gran % 0.3 (0-4) % Seg Neutrophils % 86.3 % Lymphocytes % 6.3 % Monocytes % 6.9 % Eosinophils % 0.1 % Basophils % 0.1 % Neutrophils # 13.5 H (1.6-8.9) K/mcL Lymphocytes # 1.0 (0.6-4.6) K/mcL Monocytes # 1.1 (0.0-1.3) K/mcL Eosinophils # 0.0 (0.0-0.6) K/mcL Basophils # 0.0 (0.0-0.2) K/mcL Sodium 131 L (136-145) mEq/L Potassium 3.3 L (3.5-5.1) mEq/L Chloride 98 (98-107) mEq/L Carbon Dioxide 24 (23-29) mEq/L BUN 21 (8-23) mg/dL Creatinine 1.95 H (0.60-1.20) mg/dL Est GFR ( Amer) 30 L (> 60) Est GFR (Non-Af Amer) 25 L (> 60) BUN/Creatinine Ratio 11 (6-26) Glucose 276 H (70-105) mg/dL Calculated Osmolality 285 (280-300) Calcium 7.8 L (8.6-10.3) mg/dL Total Bilirubin 0.4 (0.3-1.0) mg/dL AST 6 L (13-39) Units/L ALT 3 L (7-52) Units/L Alkaline Phosphatase 140 H (34-104) Units/L Serum Total Protein 8.0 (6.4-8.9) g/dL Albumin 2.8 L (3.5-5.7) g/dL Globulin 5.2 H (2.4-3.5) g/dL Albumin/Globulin Ratio 0.5 L (1.1-2.2) Urine Color Yellow (Yellow) Urine Clarity Turbid A (Clear) Urine pH 6.0 (5.0-8.0) pH Units Ur Specific [place] 1.018 (1.010-1.025) Urine Protein >=300 H (Neg-Trace) mg/dL Urine Glucose (UA) Normal (Normal) mg/dL Urine Ketones Trace H (Negative) mg/dL Urine Blood Large H (Negative) Urine Nitrite Negative (Negative) Urine Bilirubin Negative (Negative) Urine Urobilinogen Normal (Normal) mg/dL Ur Leukocyte Esterase Large H (Negative) Urine Microscopic RBC 5-15 H (0-3) per hpf Urine Microscopic WBC TNTC H (0-3) per hpf Ur Squamous Epith Cells Many H (None-Few) per lpf Urine Bacteria Few (None-Few) per hpf Hyaline Casts None Seen (None-Few) per lpf Ur Culture Indicated? NO. A (NO) Attestation Statement - Attestation Attestation: I, Andrew King, examined this patient and my medical decision-making was reviewed with the TIRE TRIMMER HAND/PA/Advanced Practice Nurse/Resident Physician. I agree with the documented findings, disposition and treatment plan as described except to the extent set forth below. 72-year-old female presents emergency Department with concerns of fever at dialysis. Patient recently had her Madden and stents removed from her ureter nurse yesterday. Patient denies significant abdominal pain however during the examination she had tenderness palpation in the suprapubic region. Laboratory evaluation reveals hypocalcemia, her creatinine is actually improved compared to previous. CT of the abdomen and pelvis showed air within the anterior bladder wall with bladder wall thickening consistent with urinary tract infection. Patient be started on antibiotics and admitted to the hospital for further care and evaluation.
[2018-03-16] MEDS ORDERED: Naloxone 0.4 MG/ML INJ IVP PRN (18:47)
--- NOTE | 2018-03-16 19:05 | Internal Med History&Physical ---
Date of Encounter: 03/16/18 Time of Encounter: 18:56 Internal Medicine - H&P: HPI Chief complaint: fever at dialysis Admitted From: Home Plans for Post Hospital Care: Home History of present illness: Ms. Lacy is a 72 year old female past medical hx of renal disease on dialysis HYN HLD DM frequent UTI , had renal stents removed cytoscopy yesterday. She was receiving dialysis today for approx 2 hrs and she began to vomit and was found to be febrile. She had naylor removed yesterday and since removal she has been incontinent of urine. Denies any burning or increased frequency She denies any missed dialysis appointments. She has dialysis on and Sat her grounds/maintenance specialist is Dr Meza. She states that she has been feeling poorly since naylor removed and has had a poor appetite,. Denies any fever at home. She was sent to [place] ED from dialysis and was tachycardic on presentation, she was not febrile on presentation. She did have an elevated white count and low potassium Blood culture were obtained, CT of abd did show Moderate meenu hydronephrosis and hydrouter, marked bladder wall thickening with periuretic inflammatory changes and gas consitient with UTI. Urinalysis was indicative of UTI urine sent for culture. ED physician did speak with urologist Dr Gutierrez who recommended Rocephin since this sensitive previously. Naylor cathter was placed. Upon assessment patient is alert and appropriate denies any pain or diacomfort. Urine in naylor is thick and purulent. She is hemodynamically stable at this time . I did review this case with Dr Ricketts who agrees with plan Past Med Surg Social Fam HX - Past Medical History Medical history: diabetes, hyperlipidemia, hypertension, renal disease, other Additional medical history: UTI, electrolyte imbalances, ESRD, pancytopenia, CDiff 2016, hydronephrosis, pneumonia, urinary retention/obstructive uropathy, diabetic foot ulcer Psychiatric history: anxiety - Past Surgical History Surgical History: appendectomy, cholecystectomy, hysterectomy Additional surgical history: cholecystectomy and appendectomy? - Social History Smoking Status: Never smoker Smokeless Tobacco Status: No Alcohol use: none Drug use: none - Family History Mother Living Status: Hx Family Cardiac Disorders: Yes Father Living Status: Hx Family Cardiac Disorders: Yes Internal Medicine - H&P: Meds Metoprolol [Lopressor] 12.5 mg PO BID 03/01/16 [History] Aspirin Enteric Coated [Aspirin EC] 81 mg PO DAILY 08/04/17 [History] Oxygen 2 l NS AD 08/04/17 [History] Ferrous Sulfate 325 mg PO BID 10/28/17 [History] Pravastatin Sodium [Pravachol] 10 mg PO HS 10/28/17 [History] Cholecalciferol (Vitamin D3) [Vitamin D3] 1,000 unit PO DAILY 11/16/17 [History] Insulin Glargine,Hum.rec.anlog [Basaglar Kwikpen U-100] 40 unit SQ HS 11/16/17 [ History] Folic Acid 1 mg PO DAILY 30 Days #30 tab 01/08/18 [Rx] Lactobacillus [Culturelle] 2 each PO DAILY cap.sprink 01/08/18 [Rx] Leptospermum Honey GEL [Medihoney Gel] 1 appl TP BID mls 01/08/18 [Rx] Methyl Salicylate/Menthol [Bengay] 1 appl TP BID PRN tube 01/08/18 [Rx] Renal Vitamin [Renal Caps Softgel] 1 mg PO DAILY 30 Days #30 capsule 01/08/18 [ Rx] 3 Allergy/AdvReac Type Severity Reaction Status Date / Time acetaminophen [From Tylenol] Allergy See Verified 12/22/17 19:03 Comments Influenza Virus Vaccines Allergy See Verified 12/22/17 19:03 Comments NSAIDS (Non-Steroidal Allergy See Verified 02/05/18 02:56 Anti-Inflamma Comments All Systems PM: A 10-system review of systems was performed and is negative for pertinent findings except as documented above in the HPI. - Constitutional Constitutional: anorexia - EENT Eyes: no change in vision, no discharge, no pain, no photophobia Ears: no ear discharge, no ear pain, no tinnitus Nose, mouth and throat: no dysphagia, no nasal discharge, no neck pain, no sore throat - Cardiovascular Cardiovascular ROS IM: no chest pain, no diaphoresis, no dyspnea, no lightheadedness, no palpitations, no syncope - Respiratory Respiratory: no cough, no dyspnea, no wheezing, no excessive phlegm production - Gastrointestinal Gastrointestinal: nausea, vomiting, no abdominal pain, no diarrhea, no hematemesis, no hematochezia, no melena - Genitourinary Genitourinary: urinary incontinence - Musculoskeletal Musculoskeletal ROS IM: no numbness, no tingling - Integumentary Integumentary IM: no rash, no unusual bruising - Neurological Neurological ROS: no confusion, no convulsions, no focal weakness, no numbness, no tingling, no tremor(s) - Hematologic/Lymphatic Hematologic/Lymphatic: no easy bruising - Constitutional Vitals: Temp Pulse Resp BP Pulse Ox 98.4 F 85 17 109/67 93 03/16/18 18:51 03/16/18 18:51 03/16/18 18:51 03/16/18 18:51 03/16/18 18:51 General appearance: Present: A&O X 3 - Head Head exam: Present: atraumatic, normocephalic - Eye Eye exam: Present: PERRL, conjuntiva pink, sclera anicteric Pupils: Present: PERRL - Neck Neck exam general surgery: Present: supple, trachea midline. Absent: lymphadenopathy - Respiratory Respiratory exam: Present: CTAB. Absent: accessory muscle use, rales, rhonchi, wheezes - Cardiovascular Cardiovascular exam: Present: RRR, +S1, +S2. Absent: diastolic murmur, gallop, rubs, systolic murmur - GI/Abdominal GI/Abdominal exam: Present: normal bowel sounds, soft, no peritoneal signs. Absent: distended, tenderness - Additional comments: naylor with purulent drainage - Extremities Exam Extremities exam: Present: warm, radial pulses palpable and symmetrical. Absent : calf tenderness, cyanotic, pedal edema - Neurological Exam Neurological exam: Present: CN II-XII intact, oriented X3, no focal deficits. Absent: pronater drift, facial droop, speech deficit Internal Med - H&P Results - Labs CBC & Chem 7: 03/16/18 14:03 03/16/18 14:03 - Assessment and plan (1) Sepsis Current Visit: No Status: Acute Assessment and plan: Patient had fever at Dialysis center presented tachycardiac with elevated WBC- source is urine + UTI- Blood culture obtained Urine culture sent Cardiac monitoring No fluid at this time dt on dialysis - monitor closely and cautious fluid Cont with Rocephin Qualifiers: Sepsis type: sepsis due to unspecified organism Qualified Code(s): A41.9 - Sepsis, unspecified organism (2) UTI (urinary tract infection) Current Visit: Yes Status: Acute Assessment and plan: 1 Patient has hx of chronic UTI- had removal of naylor cath and utereral stents yesterday. Developed fever and vomiting while at dialysis Had white count 15.6 Urinalysis indicative of UTI- sent for urine culture Blood culture obtained - naylor placed Urology consulted recommends rocephine will continue pending culture results Qualifiers: Urinary tract infection type: acute cystitis Hematuria presence: without hematuria Qualified Code(s): N30.00 - Acute cystitis without hematuria (3) CKD (chronic kidney disease) stage 5, GFR less than 15 ml/min Current Visit: No Status: Acute Assessment and plan: 1 Creatinine 1.95 received 2 hrs of dialysis today- Has dialysis on and Sat -Dr Meza nephrology- she was notified and consulted- 2 monitor I/O daily weights 3 Avoid nephrotoxins 4 renal dose ATB (4) Hypokalemia Current Visit: No Status: Acute Assessment and plan: Potassium 3.3 was replaced in ER will cont to monitor and replace (5) Bilateral hydronephrosis Current Visit: No Status: Chronic Assessment and plan: 1 Renal stents removed yesterday - CT of abd shows-Moderate bilateral hydronephrosis and hydroureter- No obstructing calculi are identified. 2 Urology consulted 3 Naylor placed-monitor I/O 4 Cont with rocephin (6) HLD (hyperlipidemia) Current Visit: No Status: Chronic Assessment and plan: cont statin Qualifiers: Hyperlipidemia type: unspecified Qualified Code(s): E78.5 - Hyperlipidemia , unspecified (7) HTN (hypertension) Current Visit: No Status: Chronic Assessment and plan: controlled at this time cont with home meds- monitor Qualifiers: Hypertension type: essential hypertension Qualified Code(s): I10 - Essential (primary) hypertension (8) Hyponatremia Current Visit: No Status: Chronic Assessment and plan: Sodium 131 on presentation this appears chronic cont to monitor (9) DVT prophylaxis Current Visit: No Status: Acute Assessment and plan: Heparin subque (10) Diabetes mellitus Current Visit: No Status: Chronic Assessment and plan: 1 Patient has had poor oral intake - we will hold long acting insulin place on SSI accucheck AC/HS clear liquids advance as tolerated Qualifiers: Diabetes mellitus type: type 2 Diabetes mellitus oil heaterman insulin use: with oil heaterman use Diabetes mellitus complication status: with kidney complications Diabetes mellitus complication detail: with chronic kidney disease Chronic kidney disease stage: stage 3 (moderate) Qualified Code(s): E11.22 - Type 2 diabetes mellitus with diabetic chronic kidney disease; N18.3 - Chronic kidney disease, stage 3 (moderate); 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
[2018-03-16] MEDS ORDERED: Methyl Salicylate/Menthol 28 GM TUBE TP PRN (19:19)
[2018-03-16] MEDS ORDERED: Dextrose Gel 15 GM/37.5 ML TUBE PO PRN ×2 (19:21)
[2018-03-16] MEDS ORDERED: *HR* Dextrose 50 % in Water (Syg) 50 ML SYRINGE IVP PRN (19:21)
[2018-03-16] MEDS ORDERED: D5% in Water 1,000 ML IVC PRN (19:21)
[2018-03-16] MEDS ORDERED: Ondansetron 4 MG/2 ML VIAL IVP PRN (19:52)
[2018-03-16] MEDS: Insulin LISPRO 300 UNITS/3 ML VIAL SQ SCH (21:31)
[2018-03-17 04:37] LABS: Basophils % 0.2 %; Eosinophils # 0.1 K/mcL (0.0-0.6); Eosinophils % 0.5 %; Hematocrit 28.7 % (35.3-44.9); Hemoglobin 9.2 g/dL (11.5-15.4); Immature Granulocytes % 0.5 % (0-4); Lymphocytes # 1.4 K/mcL (0.6-4.6); Lymphocytes % 14.4 %; Mean Corpuscular HGB Conc 32.1 g/dL (31.6-35.5); Mean Corpuscular Hemoglobin 26.8 pg (28.0-33.3); Mean Corpuscular Volume 83.7 fL (83.0-100.0); Mean Platelet Volume 9.1 fL (9.4-12.4); Monocytes # 0.9 K/mcL (0.0-1.3); Neutrophils # 7.5 K/mcL (1.6-8.9); Platelet Count 305 K/mcL (140-400); Red Blood Count 3.43 M/mcL (3.82-4.97); Red Cell Distribution Width 14.5 % (11.5-14.5); Segmented Neutrophils % 75.4 %
[2018-03-17 05:00] LABS: Calcium 8.3 mg/dL (8.6-10.3); Magnesium 1.6 mg/dL (1.6-2.6); Phosphorous 3.6 mg/dL (2.7-4.5); Potassium 4.3 mEq/L (3.5-5.1)
[2018-03-17] MEDS: *HR* Heparin 5,000 UNIT/ML VIAL SQ SCH ×2 (05:59→16:52)
--- NOTE | 2018-03-17 07:46 | Urology Progress Note ---
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 She had bilateral ureteral stents removed on Thursday as they did not prevent her from progressing to dialysis. I felt the stents were more of a nidus for infection and were not providing clinical benefit. I suspect the cystoscopy introduced some of the air seen on CT scan. She has increased purulence in her urine today and I recommend following the urine culture and continuing broad-spectrum antibiotics. Rocephin is appropriate for now as her white cell count did decrease. The hydronephrosis is stable and I do not feel she requires further urologic surgical intervention. I will continue to follow the patient daily to verify that she improves. Continue Naylor catheter drainage. She will likely require chronic catheter drainage based on her history. I attempted to remove the Naylor catheter Thursday and this may be another reason she became ill over the last 2 days. Progress Note Narrative: pt asleep. no distress Objective Initial Vital Signs Temp Pulse Resp BP Pulse Ox 99.2 F 112 18 127/63 97 03/16/18 13:20 03/16/18 13:20 03/16/18 13:20 03/16/18 13:20 03/16/18 13:20 - General physical appearance Present: other (asleep. ) - Additional Exam naylor cath with draining cloudy/purulent urine. - Labs 03/17/18 04:10 03/17/18 04:10 Diabetes panel 03/17/18 Range/Units 04:10 Sodium 132 L (136-145) mEq/L Potassium 4.3 D (3.5-5.1) mEq/L Chloride 99 (98-107) mEq/L Carbon Dioxide 24 (23-29) mEq/L BUN 30 H (8-23) mg/dL Creatinine 2.71 H (0.60-1.20) mg/dL Glucose 191 H (70-105) mg/dL Calcium 8.3 L (8.6-10.3) mg/dL Calcium panel 03/17/18 Range/Units 04:10 Calcium 8.3 L (8.6-10.3) mg/dL Phosphorus 3.6 (2.7-4.5) mg/dL Pituitary panel 03/17/18 Range/Units 04:10 Sodium 132 L (136-145) mEq/L Potassium 4.3 D (3.5-5.1) mEq/L Chloride 99 (98-107) mEq/L Carbon Dioxide 24 (23-29) mEq/L BUN 30 H (8-23) mg/dL Creatinine 2.71 H (0.60-1.20) mg/dL Glucose 191 H (70-105) mg/dL Calcium 8.3 L (8.6-10.3) mg/dL Adrenal panel 03/17/18 Range/Units 04:10 Sodium 132 L (136-145) mEq/L Potassium 4.3 D (3.5-5.1) mEq/L Chloride 99 (98-107) mEq/L Carbon Dioxide 24 (23-29) mEq/L BUN 30 H (8-23) mg/dL Creatinine 2.71 H (0.60-1.20) mg/dL Glucose 191 H (70-105) mg/dL Calcium 8.3 L (8.6-10.3) mg/dL Consult Discharge Plan - Plan Referrals: Macario Diallo MD [Primary Care Provider] -
[2018-03-17] MEDS: Folic Acid 1 MG TABLET PO SCH (08:59)
[2018-03-17] MEDS: Insulin LISPRO 300 UNITS/3 ML VIAL SQ SCH ×4 (08:59→21:22)
[2018-03-17] MEDS: Aspirin Enteric Coated 81 MG Tablet PO SCH (08:59)
[2018-03-17] MEDS: Renal Vitamin 1 CAP CAPSULE PO SCH (08:59)
[2018-03-17] MEDS: Lactobacillus 1 EACH CAP.SPRINK PO SCH (08:59)
[2018-03-17] MEDS: Cholecalciferol (D-3) 1,000 UNIT TABLET PO SCH (08:59)
[2018-03-17 09:27] LABS: Hepatitis B Surface Antigen Nonreactive (Nonreactive)
--- NOTE | 2018-03-17 11:48 | Electrocardiograph Report ---
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
--- NOTE | 2018-03-17 12:52 | Internal Med Progress Note ---
<Gordon Arias - Last Filed: 03/17/18 12:44> Hospitalist Progress Note - Encounter Date of Encounter: 03/17/18 Time of Encounter: 09:30 - Subjective Interval History: 72 year old female with PMHx of renal disease on dialysis 3 days per week + HTN + HLD + DM presented to ED with fevers and vomiting during hemodialysis on Thursday. Patient had a cystoscopy with stent removal on Thursday. Nephrology also removed her naylor catheter, but she was having urinary incontinence, so a new naylor cath has been placed. Patient was started on rochephin for UTI. Today, patient is doing well with no complaints. She denies chills, MASON, CP, SOB , abdominal pain, n/v, and pain/urgency with urination. - Exam Vitals: Temp Pulse Resp BP Pulse Ox 98.2 F 83 18 108/64 96 03/17/18 11:10 03/17/18 11:10 03/17/18 11:10 03/17/18 11:10 03/17/18 11:10 Exam: Gen: no acute distress, A&O x3 Heart: RRR Lungs: mild crackles in lower lung watkins bilaterally, otherwise clear to auscultation Abdomen: soft, non-tender, non-distended Extremities: no edema in lower extremities Vasc: diminished pulses +1 in lower extremities bilaterally, pulses +2 in UE Neuro: decreased sensation in lower extremities below the knees bilaterally, normal sensation in UE Naylor bag showed purulent colored urine - Assessment and Plan (1) Sepsis Current Visit: No Status: Acute Assessment and Plan: Resolving 2/2 UTI Urine culture sent Continue rocephin On dialysis - hold fluids WBC improved 15.6 > 9.9 today (2) UTI (urinary tract infection) Current Visit: Yes Status: Acute Assessment and Plan: Continue Rocephin Cultures sent Will keep urinary catheter in place due to incontinence (3) Diabetes mellitus Current Visit: No Status: Chronic Assessment and Plan: Continue SSI (4) HTN (hypertension) Current Visit: No Status: Chronic Assessment and Plan: BP stable Continue metoprolol (5) HLD (hyperlipidemia) Current Visit: No Status: Chronic Assessment and Plan: Continue simvastatin (6) Hypokalemia Current Visit: No Status: Acute Assessment and Plan: Resolved K 3.3 > 4.3 today (7) Bilateral hydronephrosis Current Visit: No Status: Chronic Assessment and Plan: Urology on consult Hydronephrosis stable, no intervention at this time (8) Hyponatremia Current Visit: No Status: Chronic Assessment and Plan: Chronic hyponatremia Baseline 132 Continue to monitor (9) CKD (chronic kidney disease) stage 5, GFR less than 15 ml/min Current Visit: No Status: Acute Assessment and Plan: Patient on dialysis Tues, Thurs, and Sat Cr 2.71 today, baseline around 3 Continue to monitor Follow up with nephrology (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 Current Visit: Yes Status: Acute Assessment and Plan: CT showed air in bladder wall - patient had recent cystoscopy with stent removal UA suspicious for UTI WBC 9.9 today Continue Rocephin Urine cultures sent Purulent colored urine in naylor bag Urology consulted, will follow recommendations DVT Prophylaxis: Heparin subcutaneous - Time Spent with Patient Total time spent is greater than 50% in coordination of care (as documented) at patient's floor/unit and/or counseling patient: 25 - 35 minutes Plan of Care Discussed with: patient Internal Medicine: Result - Labs CBC & Chem 7: 03/17/18 04:10 03/17/18 04:10 Labs: Short CBC 03/17/18 Range/Units 04:10 WBC 9.9 (4.3-11.1) K/mcL Hgb 9.2 L (11.5-15.4) g/dL Hct 28.7 L (35.3-44.9) % Plt Count 305 (140-400) K/mcL Neutrophils # 7.5 (1.6-8.9) K/mcL BMP 03/17/18 04:10 Sodium 132 L Potassium 4.3 D Chloride 99 Carbon Dioxide 24 BUN 30 H Creatinine 2.71 H Glucose 191 H Calcium 8.3 L Consult Discharge Plan - Plan Referrals: Macario Diallo MD [Primary Care Provider] - <Raeann Casanova - Last Filed: 03/17/18 18:52> Hospitalist Progress Note - Encounter Date of Encounter: 03/17/18 - Exam Vitals: Temp Pulse Resp BP Pulse Ox 97.8 F 84 18 121/80 98 03/17/18 16:26 03/17/18 16:26 03/17/18 16:26 03/17/18 16:26 03/17/18 16:26 - Assessment and Plan (1) Diabetes mellitus Current Visit: No Status: Chronic (2) HTN (hypertension) Current Visit: No Status: Chronic (3) HLD (hyperlipidemia) Current Visit: No Status: Chronic (4) Sepsis Current Visit: No Status: Acute (5) Hypokalemia Current Visit: No Status: Acute (6) UTI (urinary tract infection) Current Visit: Yes Status: Acute (7) Bilateral hydronephrosis Current Visit: No Status: Chronic (8) Hyponatremia Current Visit: No Status: Chronic (9) CKD (chronic kidney disease) stage 5, GFR less than 15 ml/min Current Visit: No Status: Acute (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 Current Visit: Yes Status: Acute - Time Spent with Patient Total time spent is greater than 50% in coordination of care (as documented) at patient's floor/unit and/or counseling patient: Internal Medicine: Result - Labs CBC & Chem 7: 03/17/18 04:10 03/17/18 04:10 Labs: Short CBC 03/17/18 Range/Units 04:10 WBC 9.9 (4.3-11.1) K/mcL Hgb 9.2 L (11.5-15.4) g/dL Hct 28.7 L (35.3-44.9) % Plt Count 305 (140-400) K/mcL Neutrophils # 7.5 (1.6-8.9) K/mcL BMP 03/17/18 04:10 Sodium 132 L Potassium 4.3 D Chloride 99 Carbon Dioxide 24 BUN 30 H Creatinine 2.71 H Glucose 191 H Calcium 8.3 L - Attending Attestation I examined this patient and my medical decision-making was reviewed with the Resident Physician Dr. Reed. I agree with the documented findings, disposition and treatment plan as described except to the extent set forth below. 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: with snf use Diabetes mellitus complication status: with kidney complications Diabetes mellitus complication detail: with chronic kidney disease Chronic kidney disease stage: stage 3 (moderate) Qualified Code(s): E11.22 - Type 2 diabetes mellitus with diabetic chronic kidney disease; N18.3 - Chronic kidney disease, stage 3 (moderate); Z79.4 - terminal press 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 (4) HTN (hypertension) Qualifiers: Hypertension type: essential hypertension Qualified Code(s): I10 - Essential (primary) hypertension (5) HLD (hyperlipidemia) Qualifiers: Hyperlipidemia type: unspecified Qualified Code(s): E78.5 - Hyperlipidemia, unspecified <Raeann Casanova - Last Filed: 03/17/18 18:52> (1) Diabetes mellitus Qualifiers: Diabetes mellitus type: type 2 Diabetes mellitus snf insulin use: with snf use Diabetes mellitus complication status: with kidney complications Diabetes mellitus complication detail: with chronic kidney disease Chronic kidney disease stage: stage 3 (moderate) Qualified Code(s): E11.22 - Type 2 diabetes mellitus with diabetic chronic kidney disease; N18.3 - Chronic kidney disease, stage 3 (moderate); Z79.4 - group home (current) use of insulin (2) HTN (hypertension) Qualifiers: Hypertension type: essential hypertension Qualified Code(s): I10 - Essential (primary) hypertension (3) HLD (hyperlipidemia) Qualifiers: Hyperlipidemia type: unspecified Qualified Code(s): E78.5 - Hyperlipidemia, unspecified (4) Sepsis Qualifiers: Sepsis type: sepsis due to unspecified organism Qualified Code(s): A41.9 - Sepsis, unspecified organism (6) UTI (urinary tract infection) Qualifiers: Urinary tract infection type: acute cystitis Hematuria presence: without hematuria Qualified Code(s): N30.00 - Acute cystitis without hematuria
[2018-03-17] MEDS: cefTRIAXone 1,000 MG in Water for inj. (sterile) 20 ML 10 ML IVP SCH (16:56)
--- NOTE | 2018-03-17 17:29 | Nephrology Consult Note ---
Date of Encounter: 03/17/18 Time of Encounter: 12:00 Assessment and Plan (1) End stage renal disease Status: Acute No indication for HD today Lytes stable and no signs of volume overload Will plan to dialyze tomorrow instead on her regular regimen (2) UTI (urinary tract infection) Status: Acute per urology and primary team Qualifiers: Urinary tract infection type: acute cystitis Hematuria presence: without hematuria Qualified Code(s): N30.00 - Acute cystitis without hematuria (3) Anemia Status: Acute Hgb noted at 9.2, will monitor for now Qualifiers: Anemia type: due to chronic kidney disease Chronic kidney disease stage: on chronic dialysis Qualified Code(s): N18.6 - End stage renal disease; D63.1 - Anemia in chronic kidney disease; Z99.2 - Dependence on renal dialysis History of Present Illness - Reason for Consult Consult date: 03/17/18 end stage renal disease Requesting physician: Noemí Benavides - History of Present Illness 72 y o female with PMH of HTN, DM, hgih chol, ESRD on HD TTS and known history of obstructive uropathy with recurrent UTIs s/p ureteral stents removal yesterday brought in mid way through HD with fevers/chills found with UTI. Renal consulted for management of ESRD. No new complaints except fevers/chills. Madden noted with thick yellow urine. Past Med Surg Social Fam HX - Past Medical History Medical history: diabetes, hyperlipidemia, hypertension, renal disease, other Additional medical history: UTI, electrolyte imbalances, ESRD, pancytopenia, CDiff 2016, hydronephrosis, pneumonia, urinary retention/obstructive uropathy, diabetic foot ulcer Psychiatric history: anxiety - Past Surgical History Surgical History: appendectomy, cholecystectomy, hysterectomy Additional surgical history: cholecystectomy and appendectomy? - Social History Smoking Status: Never smoker Smokeless Tobacco Status: No Alcohol use: none Drug use: none - Family History Mother Living Status: Hx Family Cardiac Disorders: Yes Father Living Status: Hx Family Cardiac Disorders: Yes Medications and Allergies Metoprolol [Lopressor] 12.5 mg PO BID 03/01/16 [History] Aspirin Enteric Coated [Aspirin EC] 81 mg PO DAILY 08/04/17 [History] Oxygen 2 l NS AD 08/04/17 [History] Ferrous Sulfate 325 mg PO BID 10/28/17 [History] Pravastatin Sodium [Pravachol] 10 mg PO HS 10/28/17 [History] Cholecalciferol (Vitamin D3) [Vitamin D3] 1,000 unit PO DAILY 11/16/17 [History] Insulin Glargine,Hum.rec.anlog [Basaglar Kwikpen U-100] 40 unit SQ HS 11/16/17 [ History] Folic Acid 1 mg PO DAILY 30 Days #30 tab 01/08/18 [Rx] Lactobacillus [Culturelle] 2 each PO DAILY cap.sprink 01/08/18 [Rx] Leptospermum Honey GEL [Medihoney Gel] 1 appl TP BID mls 01/08/18 [Rx] Methyl Salicylate/Menthol [Bengay] 1 appl TP BID PRN tube 01/08/18 [Rx] Renal Vitamin [Renal Caps Softgel] 1 mg PO DAILY 30 Days #30 capsule 01/08/18 [ Rx] Ciprofloxacin [Cipro] 500 mg PO HS 10 Days #10 tablet 03/19/18 [Rx] Omeprazole 20 mg PO DAILY #14 tablet. 03/19/18 [Rx] Ciprofloxacin [Cipro] 500 mg PO HS tablet 03/20/18 [Rx] 3 Allergy/AdvReac Type Severity Reaction Status Date / Time acetaminophen [From Tylenol] Allergy See Verified 12/22/17 19:03 Comments Influenza Virus Vaccines Allergy See Verified 12/22/17 19:03 Comments NSAIDS (Non-Steroidal Allergy See Verified 02/05/18 02:56 Anti-Inflamma Comments Review of Systems All Systems: reviewed and no additional remarkable complaints except as stated ( 10 systems reviewed and as noted in HPI) Exam - Vital Signs Vital signs: Initial Vital Signs Temp Pulse Resp BP Pulse Ox 99.2 F 112 18 127/63 97 03/16/18 13:20 03/16/18 13:20 03/16/18 13:20 03/16/18 13:20 03/16/18 13:20 Vital Signs - Last 8 Hours Temp Pulse Resp BP Pulse Ox 03/17/18 16:26 97.8 F 84 18 121/80 98 03/17/18 11:10 98.2 F 83 18 108/64 96 Intake and Output 03/17/18 03/17/18 03/17/18 07:59 15:59 23:59 Intake Total 360 / 360 Output Total 250 / 250 400 / 400 Balance 110 / 110 -400 / -400 Intake: Oral 360 / 360 Output: Catheter 250 / 250 400 / 400 Other: Meal Lunch Percent of Meal Consumed 75% Blood Glucose* 248 277 - General Appearance General appearance: chronically ill, frail EENT: ATNC, mucous membranes moist Neck: no JVD, supple Respiratory: clear Cardiology: no edema, normal S1, normal S2 - Dialysis Access Dialysis Vascular Access: Venous Catheter (permcath) Gastrointestinal: no tenderness, no guarding Integumentary: warm and dry Neurologic: no focal deficit Musculoskeletal: no deformities Psychiatric: mood/affect appropriate, cooperative Results - Lab Results 03/20/18 08:39 03/20/18 08:39 Most recent lab results Calcium 8.3 mg/dL (8.6-10.3) L 03/17/18 04:10 Phosphorus 3.6 mg/dL (2.7-4.5) 03/17/18 04:10 Magnesium 1.6 mg/dL (1.6-2.6) 03/17/18 04:10 Consult Discharge Plan - Plan Additional Instructions: Please take ciprofloxacin every night for 10 days for urinary tract infection. Take it at night so dialysis doesn't interfere with medication. Please also take omeprazole daily for 14 days for reflux. This is a trial medication and will need to be refilled by PCP if it helps with heartburn and reflux symptoms. Please follow up with primary care provider in 2 weeks. Referrals: Macario Diallo MD [Primary Care Provider] - 03/22/18 11:15 am Darien Gutierrez MD [Partnered Physician] - (Web request sent on 03/20/18) Prescriptions: Ciprofloxacin [Cipro] 500 mg PO HS 10 Days #10 tablet Omeprazole 20 mg PO DAILY #14 tablet.
[2018-03-18] MEDS: *HR* Heparin 5,000 UNIT/ML VIAL SQ SCH ×2 (04:44→17:07)
[2018-03-18 05:34] LABS: Basophils % 0.2 %; Eosinophils # 0.2 K/mcL (0.0-0.6); Eosinophils % 1.8 %; Hematocrit 29.1 % (35.3-44.9); Hemoglobin 9.1 g/dL (11.5-15.4); Immature Granulocytes % 0.4 % (0-4); Lymphocytes # 1.3 K/mcL (0.6-4.6); Lymphocytes % 16.3 %; Mean Corpuscular HGB Conc 31.3 g/dL (31.6-35.5); Mean Corpuscular Hemoglobin 25.9 pg (28.0-33.3); Mean Corpuscular Volume 82.9 fL (83.0-100.0); Mean Platelet Volume 9.3 fL (9.4-12.4); Monocytes # 0.6 K/mcL (0.0-1.3); Monocytes % 7.7 %; Platelet Count 323 K/mcL (140-400); Red Blood Count 3.51 M/mcL (3.82-4.97); Red Cell Distribution Width 14.7 % (11.5-14.5); Segmented Neutrophils % 73.6 %
[2018-03-18 05:55] LABS: Calcium 8.6 mg/dL (8.6-10.3); Potassium 4.6 mEq/L (3.5-5.1)
[2018-03-18] MEDS ORDERED: 0.9 % Sodium Chloride 1,000 ML ONE (07:17)
[2018-03-18] MEDS ORDERED: 0.9 % Sodium Chloride 250 ML IVC PRN (07:40)
[2018-03-18] MEDS ORDERED: 0.9 % Sodium Chloride 1,000 ML PRIME SCH ×2 (07:45→11:45)
[2018-03-18] MEDS: Aspirin Enteric Coated 81 MG Tablet PO SCH (08:00)
[2018-03-18] MEDS: Lactobacillus 1 EACH CAP.SPRINK PO SCH (09:00)
[2018-03-18] MEDS: Cholecalciferol (D-3) 1,000 UNIT TABLET PO SCH (09:00)
[2018-03-18] MEDS: Folic Acid 1 MG TABLET PO SCH (09:00)
[2018-03-18] MEDS: Insulin DETEMIR 100 UNIT/ML X5UNITS SQ SCH (09:00)
[2018-03-18] MEDS: Renal Vitamin 1 CAP CAPSULE PO SCH (09:00)
[2018-03-18] MEDS ORDERED: Chloraseptic Spray 177 ML BOTTLE MM PRN (09:43)
[2018-03-18] MEDS: Insulin LISPRO 300 UNITS/3 ML VIAL SQ SCH ×4 (10:27→21:30)
[2018-03-18] MEDS ORDERED: *HR* Heparin 10,000 UNIT/10 ML VIAL IV PRN (11:44)
--- NOTE | 2018-03-18 12:07 | Nephrology Progress Note ---
Date of Encounter: 03/18/18 Time of Encounter: 11:00 - Assessment and Plan (1) End stage renal disease Status: Acute HD with UF as tolerated planned today Lytes stable excpet for sodium of 130, should improve with HD Continue renal diet (2) UTI (urinary tract infection) Status: Acute continue ix abx per primary team and urology Qualifiers: Urinary tract infection type: acute cystitis Hematuria presence: without hematuria Qualified Code(s): N30.00 - Acute cystitis without hematuria (3) Anemia Status: Acute Hgb fairly stable at 9.1, will monitor Will dose with EPO on outpatient during HD Qualifiers: Anemia type: due to chronic kidney disease Chronic kidney disease stage: on chronic dialysis Qualified Code(s): N18.6 - End stage renal disease; D63.1 - Anemia in chronic kidney disease; Z99.2 - Dependence on renal dialysis Subjective Interval history: Pt seen and examined awaiting HD but already feeling better with iv abx. Madden still with milky yellow urine but slightly improved. Objective - Vital Signs Vital signs: Vital Signs Temp Pulse Resp BP Pulse Ox 03/18/18 07:45 97.5 F L 75 18 110/59 96 03/18/18 04:45 98 F 71 15 110/51 98 03/18/18 00:15 97.8 F 66 15 98/59 96 03/17/18 21:30 98 03/17/18 21:06 97.9 F 80 16 121/75 98 03/17/18 16:26 97.8 F 84 18 121/80 98 Intake and Output 03/17/18 03/18/18 03/18/18 23:59 07:59 15:59 Intake Total 480 / 480 Output Total 400 / 400 Balance 80 / 80 Intake: Oral 480 / 480 Output: Catheter 400 / 400 Other: Meal Dinner Stool Size Small Stool Consistency soft formed Stool Characteristics Normal for Patient Stool Color Brown # Bowel Movement Diapers 1 Weight 56.2 kg Blood Glucose* 214 193 Patient Weight 03/18/18 23:59 Weight 56.2 kg - General Appearance General appearance: Present: chronically ill, frail EENT: Present: ATNC, mucous membranes moist Neck: Present: no JVD, supple Respiratory: Present: clear (ant bilat) Cardiology: Present: no edema, normal S1, normal S2 Dialysis Vascular Access: Venous Catheter Gastrointestinal: Present: no tenderness, no guarding Integumentary: Present: warm and dry Neurologic: Present: no focal deficit Musculoskeletal: Present: no deformities Psychiatric: Present: mood/affect appropriate, cooperative - Lab 03/20/18 08:39 03/20/18 08:39 Most recent lab results Calcium 8.6 mg/dL (8.6-10.3) 03/18/18 04:39 Phosphorus 3.6 mg/dL (2.7-4.5) 03/17/18 04:10 Magnesium 1.6 mg/dL (1.6-2.6) 03/17/18 04:10 Consult Discharge Plan - Plan Additional Instructions: Please take ciprofloxacin every night for 10 days for urinary tract infection. Take it at night so dialysis doesn't interfere with medication. Please also take omeprazole daily for 14 days for reflux. This is a trial medication and will need to be refilled by PCP if it helps with heartburn and reflux symptoms. Please follow up with primary care provider in 2 weeks. Referrals: Macario Diallo MD [Primary Care Provider] - 03/22/18 11:15 am Darien Gutierrez MD [Partnered Physician] - (Web request sent on 03/20/18) Prescriptions: Ciprofloxacin [Cipro] 500 mg PO HS 10 Days #10 tablet Omeprazole 20 mg PO DAILY #14 tablet.
--- NOTE | 2018-03-18 13:42 | Internal Med Progress Note ---
<DerekKelvin Chela - Last Filed: 03/18/18 13:40> Hospitalist Progress Note - Encounter Date of Encounter: 03/18/18 Time of Encounter: 09:40 - Subjective Interval History: 72 yo female with PMHx of ESRD, HTN, HLD, and DM presented to ED with fevers and vomiting after attending hemodialysis. Nephrology replaced a naylor catheter that reveled purulent discharge. Admitted with sepsis 2/2 UTI Today the patient is currently receiving dialysis and is doing well with no complaints, since starting Rochephin. She denies any chills, burning, itching or pain in the abdominal and genital area. Patient complained of trouble swallowing 2/2 a sore throat with rhinorrhea, that she reports is a chronic problem. She does not want any medication for this. - Exam Vitals: Temp Pulse Resp BP Pulse Ox 97.8 F 75 18 120/66 96 03/18/18 08:15 03/18/18 07:45 03/18/18 08:15 03/18/18 11:15 03/18/18 07:45 Exam: GEN: NAD, AA&O X3 Heart: RRR, no murmurs Lungs: Clear to auscultation bilaterally, no wheezes, rhonchi, or crackles Abdomen: Soft, non-tender, non-distended, bowel sounds present : Naylor catheter present with purulent urine Extremities: No edema, euvolemic, Lower extremity pulses diminished but symmetric Neuro: No focal deficits, decreased sensation in lower extremities below knees bilaterally - Assessment and Plan (1) Sepsis Current Visit: No Status: Resolved Assessment and Plan: Sepsis secondary to UTI Sepsis has resolved Urine culture pending Continue Rocephin (2) Emphysematous cystitis Current Visit: Yes Status: Acute Assessment and Plan: Likely secondary to recent cystoscopy and stent removal Urology consulted, appreciate recommendations (3) UTI (urinary tract infection) Current Visit: Yes Status: Acute Assessment and Plan: Urine culture pending Patient's symptoms improving, leukocytosis resolved Continue Rocephin Adjustment of antibiotics pending urine culture results (4) Diabetes mellitus Current Visit: No Status: Chronic Assessment and Plan: Continue sliding scale insulin (5) HTN (hypertension) Current Visit: No Status: Chronic Assessment and Plan: Normotensive, continue metoprolol (6) Hypokalemia Current Visit: No Status: Acute Assessment and Plan: Resolved, COURT RECORDING MONITOR per nephrology (7) Bilateral hydronephrosis Current Visit: No Status: Chronic Assessment and Plan: Recent removal of renal stents CT shows no obstructing calculi Urology consult - continue Naylor, no other intervention needed at this time (8) End stage renal disease Current Visit: Yes Status: Acute Assessment and Plan: COURT RECORDING MONITOR per nephrology DVT Prophylaxis: Heparin subcutaneous - Summary of Assessment and Plan Summary of Assessment and Plan: Continue to treat UTI with Rocephin. Urine cultures pending. Adjust antibiotics once urine culture is back. - Time Spent with Patient Total time spent is greater than 50% in coordination of care (as documented) at patient's floor/unit and/or counseling patient: Internal Medicine: Result - Labs CBC & Chem 7: 03/18/18 04:39 03/18/18 04:39 Labs: Short CBC 03/18/18 Range/Units 04:39 WBC 8.2 (4.3-11.1) K/mcL Hgb 9.1 L (11.5-15.4) g/dL Hct 29.1 L (35.3-44.9) % Plt Count 323 (140-400) K/mcL Neutrophils # 6.0 (1.6-8.9) K/mcL BMP 03/18/18 04:39 Sodium 130 L Potassium 4.6 Chloride 98 Carbon Dioxide 22 L BUN 40 H Creatinine 3.47 H Glucose 202 H Calcium 8.6 Consult Discharge Plan - Plan Referrals: Macario Diallo MD [Primary Care Provider] - <Raeann Casanova - Last Filed: 03/18/18 21:04> Hospitalist Progress Note - Encounter Date of Encounter: 03/18/18 - Exam Vitals: Temp Pulse Resp BP Pulse Ox 98.3 F 97 18 122/74 99 03/18/18 15:56 03/18/18 15:56 03/18/18 15:56 03/18/18 15:56 03/18/18 15:56 - Assessment and Plan (1) Diabetes mellitus Current Visit: No Status: Chronic (2) HTN (hypertension) Current Visit: No Status: Chronic (3) HLD (hyperlipidemia) Current Visit: No Status: Chronic (4) Sepsis Current Visit: No Status: Acute (5) Hypokalemia Current Visit: No Status: Acute (6) UTI (urinary tract infection) Current Visit: Yes Status: Acute (7) Bilateral hydronephrosis Current Visit: No Status: Chronic (8) Hyponatremia Current Visit: No Status: Chronic (9) CKD (chronic kidney disease) stage 5, GFR less than 15 ml/min Current Visit: No Status: Acute (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 Current Visit: Yes Status: Acute - Time Spent with Patient Total time spent is greater than 50% in coordination of care (as documented) at patient's floor/unit and/or counseling patient: Internal Medicine: Result - Labs CBC & Chem 7: 03/18/18 04:39 03/18/18 04:39 Labs: Short CBC 03/18/18 Range/Units 04:39 WBC 8.2 (4.3-11.1) K/mcL Hgb 9.1 L (11.5-15.4) g/dL Hct 29.1 L (35.3-44.9) % Plt Count 323 (140-400) K/mcL Neutrophils # 6.0 (1.6-8.9) K/mcL BMP 03/18/18 04:39 Sodium 130 L Potassium 4.6 Chloride 98 Carbon Dioxide 22 L BUN 40 H Creatinine 3.47 H Glucose 202 H Calcium 8.6 - Attending Attestation I examined this patient and my medical decision-making was reviewed with the Resident Physician Dr. Reed. I agree with the documented findings, disposition and treatment plan as described except to the extent set forth below. 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: with bearing machine operator use Diabetes mellitus complication status: with kidney complications Diabetes mellitus complication detail: with chronic kidney disease Chronic kidney disease stage: stage 3 (moderate) Qualified Code(s): E11.22 - Type 2 diabetes mellitus with diabetic chronic kidney disease; N18.3 - Chronic kidney disease, stage 3 (moderate); Z79.4 - long term acute care registered nurse (current) use of insulin (5) HTN (hypertension) Qualifiers: Hypertension type: essential hypertension Qualified Code(s): I10 - Essential (primary) hypertension <Raeann Casanova - Last Filed: 03/18/18 21:04> (1) Diabetes mellitus Qualifiers: Diabetes mellitus type: type 2 Diabetes mellitus group home insulin use: with group home use Diabetes mellitus complication status: with kidney complications Diabetes mellitus complication detail: with chronic kidney disease Chronic kidney disease stage: stage 3 (moderate) Qualified Code(s): E11.22 - Type 2 diabetes mellitus with diabetic chronic kidney disease; N18.3 - Chronic kidney disease, stage 3 (moderate); Z79.4 - long term acute care registered nurse (current) use of insulin (2) HTN (hypertension) Qualifiers: Hypertension type: essential hypertension Qualified Code(s): I10 - Essential (primary) hypertension (3) HLD (hyperlipidemia) Qualifiers: Hyperlipidemia type: unspecified Qualified Code(s): E78.5 - Hyperlipidemia, unspecified (4) Sepsis Qualifiers: Sepsis type: sepsis due to unspecified organism Qualified Code(s): A41.9 - Sepsis, unspecified organism (6) UTI (urinary tract infection) Qualifiers: Urinary tract infection type: acute cystitis Hematuria presence: without hematuria Qualified Code(s): N30.00 - Acute cystitis without hematuria
[2018-03-18] MEDS: cefTRIAXone 1,000 MG in Water for inj. (sterile) 20 ML 10 ML IVP SCH (17:08)
[2018-03-19] MEDS: *HR* Heparin 5,000 UNIT/ML VIAL SQ SCH ×2 (05:56→17:02)
[2018-03-19 06:15] LABS: Basophils % 0.5 %; Eosinophils # 0.1 K/mcL (0.0-0.6); Eosinophils % 2.3 %; Hematocrit 31.1 % (35.3-44.9); Hemoglobin 9.5 g/dL (11.5-15.4); Immature Granulocytes % 0.3 % (0-4); Lymphocytes # 1.3 K/mcL (0.6-4.6); Lymphocytes % 21.3 %; Mean Corpuscular HGB Conc 30.5 g/dL (31.6-35.5); Mean Corpuscular Volume 85.2 fL (83.0-100.0); Mean Platelet Volume 9.2 fL (9.4-12.4); Monocytes # 0.6 K/mcL (0.0-1.3); Monocytes % 9.7 %; Platelet Count 300 K/mcL (140-400); Red Blood Count 3.65 M/mcL (3.82-4.97); Red Cell Distribution Width 14.6 % (11.5-14.5); Segmented Neutrophils % 65.9 %
[2018-03-19 07:11] LABS: Calcium 8.3 mg/dL (8.6-10.3); Potassium 4.7 mEq/L (3.5-5.1)
[2018-03-19] MEDS: Insulin LISPRO 300 UNITS/3 ML VIAL SQ SCH ×4 (08:28→21:42)
[2018-03-19] MEDS: Cholecalciferol (D-3) 1,000 UNIT TABLET PO SCH (08:29)
[2018-03-19] MEDS: Lactobacillus 1 EACH CAP.SPRINK PO SCH (08:30)
[2018-03-19] MEDS: Renal Vitamin 1 CAP CAPSULE PO SCH (08:30)
[2018-03-19] MEDS: Folic Acid 1 MG TABLET PO SCH (08:30)
[2018-03-19] MEDS: Aspirin Enteric Coated 81 MG Tablet PO SCH (08:30)
[2018-03-19] MEDS: Insulin DETEMIR 100 UNIT/ML X5UNITS SQ SCH (10:32)
--- NOTE | 2018-03-19 13:30 | Discharge Summary ---
Date of Encounter: 03/19/18 Time of Encounter: 10:30 - Discharge Diagnosis (1) Sepsis Status: Acute Qualifiers: Sepsis type: sepsis due to unspecified organism Qualified Code(s): A41.9 - Sepsis, unspecified organism (2) Emphysematous cystitis Status: Acute (3) UTI (urinary tract infection) Status: Acute Qualifiers: Urinary tract infection type: acute cystitis Hematuria presence: without hematuria Qualified Code(s): N30.00 - Acute cystitis without hematuria (4) Diabetes mellitus Status: Chronic Qualifiers: Diabetes mellitus type: type 2 Diabetes mellitus penitentiary insulin use: with penitentiary use Diabetes mellitus complication status: with kidney complications Diabetes mellitus complication detail: with chronic kidney disease Chronic kidney disease stage: stage 3 (moderate) Qualified Code(s): E11.22 - Type 2 diabetes mellitus with diabetic chronic kidney disease; N18.3 - Chronic kidney disease, stage 3 (moderate); Z79.4 - USP (current) use of insulin (5) HTN (hypertension) Status: Chronic Qualifiers: Hypertension type: essential hypertension Qualified Code(s): I10 - Essential (primary) hypertension (6) HLD (hyperlipidemia) Status: Chronic Qualifiers: Hyperlipidemia type: unspecified Qualified Code(s): E78.5 - Hyperlipidemia , unspecified (7) Hypokalemia Status: Acute (8) Bilateral hydronephrosis Status: Chronic (9) Hyponatremia Status: Chronic (10) CKD (chronic kidney disease) stage 5, GFR less than 15 ml/min Status: Acute Hospital course: Ms. Lacy is a 72 year old female - Time Spent with Patient Total time spent providing and/or coordinating discharge services: - Discharge Medications Prescriptions: Ciprofloxacin [Cipro] 500 mg PO HS 10 Days #10 tablet Omeprazole 20 mg PO DAILY #14 tablet.dr Home Medications: Metoprolol [Lopressor] 12.5 mg PO BID 03/01/16 [History] Aspirin Enteric Coated [Aspirin EC] 81 mg PO DAILY 08/04/17 [History] Oxygen 2 l NS AD 08/04/17 [History] Ferrous Sulfate 325 mg PO BID 10/28/17 [History] Pravastatin Sodium [Pravachol] 10 mg PO HS 10/28/17 [History] Cholecalciferol (Vitamin D3) [Vitamin D3] 1,000 unit PO DAILY 11/16/17 [History] Insulin Glargine,Hum.rec.anlog [Basaglar Willikpen U-100] 40 unit SQ HS 11/16/17 [ History] Folic Acid 1 mg PO DAILY 30 Days #30 tab 01/08/18 [Rx] Lactobacillus [Culturelle] 2 each PO DAILY cap.sprink 01/08/18 [Rx] Leptospermum Honey GEL [Medihoney Gel] 1 appl TP BID mls 01/08/18 [Rx] Methyl Salicylate/Menthol [Bengay] 1 appl TP BID PRN tube 01/08/18 [Rx] Renal Vitamin [Renal Caps Softgel] 1 mg PO DAILY 30 Days #30 capsule 01/08/18 [ Rx] Ciprofloxacin [Cipro] 500 mg PO HS 10 Days #10 tablet 03/19/18 [Rx] Omeprazole 20 mg PO DAILY #14 tablet. 03/19/18 [Rx] Allergies/Adverse Reactions: 3 Allergy/AdvReac Type Severity Reaction Status Date / Time acetaminophen [From Tylenol] Allergy See Verified 12/22/17 19:03 Comments Influenza Virus Vaccines Allergy See Verified 12/22/17 19:03 Comments NSAIDS (Non-Steroidal Allergy See Verified 02/05/18 02:56 Anti-Inflamma Comments Date of admission: 03/16/18 17:47 Primary care physician: Macario Diallo MD Consults: 03/16/18 19:11 Consult to Nutrition [CONS] Routine Comment: Consulting Provider: NUTRITION Reason for Dietary Consult: MST Score 03/16/18 19:17 Consult to Nephrology [CONS] Routine Consulting Provider: Kidney Isis/SHAINA/FARTUN/HEAVEN Reason for Consult: dialysis Time Notified: 19:17 Call Completed: Yes 03/18/18 07:45 Consult to Dialysis [CONS] ONCE - Constitutional Vitals: Temp Pulse Resp BP Pulse Ox 97.4 F L 75 18 124/73 98 03/19/18 11:18 03/19/18 11:18 03/19/18 11:18 03/19/18 11:18 03/19/18 11:18 General appearance: Present: A&O X 3 - Patient Status Disposition: Home, Self-Care Condition: Fair Functional capacity at discharge: independent ambulation Overall status at discharge: patient is progressing back to baseline - Discharge Instructions Follow Up With: Macario Diallo MD [Primary Care Provider] - Forms: ED Satisfaction Letter, Work/School Release Additional Instructions: Please take ciprofloxacin every night for 10 days for urinary tract infection. Take it at night so dialysis doesn't interfere with medication. Please also take omeprazole daily for 14 days for reflux. This is a trial medication and will need to be refilled by PCP if it helps with heartburn and reflux symptoms. Please follow up with primary care provider in 2 weeks. - Diet and Activity Activity: increase activity as tolerated Diet: advance to your usual diet
--- NOTE | 2018-03-19 13:56 | Physician Discharge Referral ---
Home Health/Hosp Referral Info Transfer to: Home Health (Need home health for wound care and bathing) Attending Provider: Dr. Casanova Provider in Charge Post Discharge: PCP [facility]: Needs to have home health with wound care and continuity of care for permanent indwelling catheter and bathing, please. - Diagnosis (1) Sepsis Status: Acute (2) Emphysematous cystitis Status: Acute (3) UTI (urinary tract infection) Status: Acute (4) Diabetes mellitus Status: Chronic (5) HTN (hypertension) Status: Chronic (6) HLD (hyperlipidemia) Status: Chronic (7) Hypokalemia Status: Acute (8) Bilateral hydronephrosis Status: Chronic (9) Hyponatremia Status: Chronic (10) CKD (chronic kidney disease) stage 5, GFR less than 15 ml/min Status: Acute - Respiratory Orders Oxygen / L per min Smoking Cessation: Smoking cessation has been advised. For more information, call the [employer] Tobacco Quit Line at 5-836-GHYN-NOW. - Diet/Nutrition Diet/Nutrition Orders: Regular - Services Needed Following services are medically necessary services: Home Health Aide Home Care Orders: Please assist with permanent naylor catheter management and bathing - Transfer Medications Prescriptions: Ciprofloxacin [Cipro] 500 mg PO HS 10 Days #10 tablet Omeprazole 20 mg PO DAILY #14 tablet. Home Medications: Metoprolol [Lopressor] 12.5 mg PO BID 03/01/16 [History] Aspirin Enteric Coated [Aspirin EC] 81 mg PO DAILY 08/04/17 [History] Oxygen 2 l NS AD 08/04/17 [History] Ferrous Sulfate 325 mg PO BID 10/28/17 [History] Pravastatin Sodium [Pravachol] 10 mg PO HS 10/28/17 [History] Cholecalciferol (Vitamin D3) [Vitamin D3] 1,000 unit PO DAILY 11/16/17 [History] Insulin Glargine,Hum.rec.anlog [Basaglar Kwikpen U-100] 40 unit SQ HS 11/16/17 [ History] Folic Acid 1 mg PO DAILY 30 Days #30 tab 01/08/18 [Rx] Lactobacillus [Culturelle] 2 each PO DAILY cap.sprink 01/08/18 [Rx] Leptospermum Honey GEL [Medihoney Gel] 1 appl TP BID mls 01/08/18 [Rx] Methyl Salicylate/Menthol [Bengay] 1 appl TP BID PRN tube 01/08/18 [Rx] Renal Vitamin [Renal Caps Softgel] 1 mg PO DAILY 30 Days #30 capsule 01/08/18 [ Rx] Ciprofloxacin [Cipro] 500 mg PO HS 10 Days #10 tablet 03/19/18 [Rx] Omeprazole 20 mg PO DAILY #14 tablet. 03/19/18 [Rx] Allergies/Adverse Reactions: 3 Allergy/AdvReac Type Severity Reaction Status Date / Time acetaminophen [From Tylenol] Allergy See Verified 12/22/17 19:03 Comments Influenza Virus Vaccines Allergy See Verified 12/22/17 19:03 Comments NSAIDS (Non-Steroidal Allergy See Verified 02/05/18 02:56 Anti-Inflamma Comments Certification: Further, I certify that my clinical findings support that this patient is homebound (i.e. absences from home require considerable and taxing effort and are for medical reasons or yazdanism services or infrequently or short duration when for other reasons) because: Attestation: My signature below is to certify that this patient is under my care and that I, or nurse practitioner, or a physician's biology laboratory assistant working with me, has a face-to -face encounter with this patient.
--- NOTE | 2018-03-19 15:59 | Nephrology Progress Note ---
Date of Encounter: 03/19/18 Time of Encounter: 12:00 - Assessment and Plan (1) End stage renal disease Current Visit: Yes Status: Acute next HD planned tomorrow if still hospitalized Lytes stable including sodium at 131 Continue renal diet (2) UTI (urinary tract infection) Current Visit: Yes Status: Acute Continue abx per primary team Qualifiers: Urinary tract infection type: acute cystitis Hematuria presence: without hematuria Qualified Code(s): N30.00 - Acute cystitis without hematuria (3) Anemia Current Visit: No Status: Acute hgb stable at 9.5, will monitor Qualifiers: Anemia type: due to chronic kidney disease Chronic kidney disease stage: on chronic dialysis Qualified Code(s): N18.6 - End stage renal disease; D63.1 - Anemia in chronic kidney disease; Z99.2 - Dependence on renal dialysis Subjective Interval history: Pt seen and examined with no new complaints. Feels much better. naylor still with cloudy thick yellow urine Objective - Vital Signs Vital signs: Vital Signs Temp Pulse Resp BP Pulse Ox 03/19/18 11:18 97.4 F L 75 18 124/73 98 03/19/18 07:14 97.6 F 77 18 123/71 100 03/19/18 04:23 98 F 74 16 114/62 98 03/18/18 23:43 98.1 F 75 15 117/70 99 03/18/18 21:06 98.2 F 77 14 106/64 96 Intake and Output 03/18/18 03/19/18 03/19/18 23:59 07:59 15:59 Intake Total 1070 / 1070 1200 / 1200 Output Total 300 / 300 250 / 250 Balance 770 / 770 -250 / -250 1200 / 1200 Intake: Oral 1070 / 1070 1200 / 1200 Output: Urine 300 / 300 250 / 250 Other: Meal Lunch Weight 55.7 kg Blood Glucose* 206 173 239 - General Appearance General appearance: Present: chronically ill, frail EENT: Present: ATNC, mucous membranes moist Neck: Present: no JVD, supple Respiratory: Present: clear Cardiology: Present: no edema, normal S1, normal S2 Dialysis Vascular Access: Venous Catheter (permcath) Gastrointestinal: Present: no tenderness, no guarding Integumentary: Present: warm and dry Neurologic: Present: no focal deficit Musculoskeletal: Present: no deformities Psychiatric: Present: mood/affect appropriate, cooperative - Lab 03/19/18 05:56 03/19/18 05:56 Most recent lab results Calcium 8.3 mg/dL (8.6-10.3) L 03/19/18 05:56 Phosphorus 3.6 mg/dL (2.7-4.5) 03/17/18 04:10 Magnesium 1.6 mg/dL (1.6-2.6) 03/17/18 04:10 Consult Discharge Plan - Plan Additional Instructions: Please take ciprofloxacin every night for 10 days for urinary tract infection. Take it at night so dialysis doesn't interfere with medication. Please also take omeprazole daily for 14 days for reflux. This is a trial medication and will need to be refilled by PCP if it helps with heartburn and reflux symptoms. Please follow up with primary care provider in 2 weeks. Referrals: Macario Diallo MD [Primary Care Provider] - 03/22/18 11:15 am Prescriptions: Ciprofloxacin [Cipro] 500 mg PO HS 10 Days #10 tablet Omeprazole 20 mg PO DAILY #14 tablet.
[2018-03-19] MEDS: cefTRIAXone 1,000 MG in Water for inj. (sterile) 20 ML 10 ML IVP SCH (17:03)
--- NOTE | 2018-03-19 17:24 | Internal Med Progress Note ---
<Gordon Arias - Last Filed: 03/19/18 17:08> Hospitalist Progress Note - Encounter Date of Encounter: 03/19/18 Time of Encounter: 10:30 - Subjective Interval History: 72 year old female with PMHx of renal disease on dialysis 3 days per week + HTN + HLD + DM presented to ED with fevers and vomiting during hemodialysis on Thursday. Patient had a cystoscopy with stent removal on Thursday. Nephrology also removed her naylor catheter, but she was having urinary incontinence, so a new naylor cath has been placed. Patient's urine culture showed 2 GNRs and Gram (+) cocci, and she was switched from IV ceftriaxone to PO ciprofloxacin. Today , patient is doing well with no complaints. She denies chills, MASON, CP, SOB, abdominal pain, n/v, and pain/urgency with urination. - Exam Vitals: Temp Pulse Resp BP Pulse Ox 97.4 F L 75 18 124/73 98 03/19/18 11:18 03/19/18 11:18 03/19/18 11:18 03/19/18 11:18 03/19/18 11:18 Exam: GEN: No acute distress, A&O x3 Heart: RRR, no murmurs appreciated Lungs: Clear to auscultation bilaterally Abdomen: Soft, non-tender, non-distended, positive BS all 4 quadrants Extremities: No edema Vascular: LE pulses diminished Neuro: Decreased sensation in lower extremities below knees bilaterally, no focal deficits Naylor catheter with purulent urine - Assessment and Plan (1) Sepsis Current Visit: No Status: Acute Assessment and Plan: Sepsis secondary to UTI Sepsis has resolved Urine culture prelim shows 2 gram neg rods and 1 gram pos cocci Discontinue Rocephin Started PO ciprofloxacin (2) UTI (urinary tract infection) Current Visit: Yes Status: Acute Assessment and Plan: Urine culture shows 2 gram neg rods and 1 gram pos cocci Patient's symptoms improving, leukocytosis resolved Discontinue rocephin Started PO cipro (3) Diabetes mellitus Current Visit: No Status: Chronic Assessment and Plan: Continue sliding scale insulin (4) HTN (hypertension) Current Visit: No Status: Chronic Assessment and Plan: Normotensive, continue metoprolol (5) HLD (hyperlipidemia) Current Visit: No Status: Chronic (6) Hypokalemia Current Visit: No Status: Acute Assessment and Plan: Resolved (7) Bilateral hydronephrosis Current Visit: No Status: Chronic Assessment and Plan: Recent removal of renal stents CT shows no obstructing calculi Urology consult - continue Naylor, no other intervention needed at this time (8) Hyponatremia Current Visit: No Status: Chronic Assessment and Plan: Na 132, around baseline (9) CKD (chronic kidney disease) stage 5, GFR less than 15 ml/min Current Visit: No Status: Acute Assessment and Plan: 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 (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 Current Visit: Yes Status: Acute Assessment and Plan: Likely secondary to recent cystoscopy and stent removal Urology consulted, appreciate recommendations DVT Prophylaxis: Subcutaneous heparin - Time Spent with Patient Total time spent is greater than 50% in coordination of care (as documented) at patient's floor/unit and/or counseling patient: 25 - 35 minutes Plan of Care Discussed with: patient Internal Medicine: Result - Labs CBC & Chem 7: 03/19/18 05:56 03/19/18 05:56 Labs: Short CBC 03/19/18 Range/Units 05:56 WBC 6.1 (4.3-11.1) K/mcL Hgb 9.5 L (11.5-15.4) g/dL Hct 31.1 L (35.3-44.9) % Plt Count 300 (140-400) K/mcL Neutrophils # 4.0 (1.6-8.9) K/mcL BMP 03/19/18 05:56 Sodium 131 L Potassium 4.7 Chloride 99 Carbon Dioxide 25 BUN 26 H Creatinine 2.55 H Glucose 191 H Calcium 8.3 L Consult Discharge Plan - Plan Additional Instructions: Please take ciprofloxacin every night for 10 days for urinary tract infection. Take it at night so dialysis doesn't interfere with medication. Please also take omeprazole daily for 14 days for reflux. This is a trial medication and will need to be refilled by PCP if it helps with heartburn and reflux symptoms. Please follow up with primary care provider in 2 weeks. Referrals: Macario Diallo MD [Primary Care Provider] - 03/22/18 11:15 am Prescriptions: Ciprofloxacin [Cipro] 500 mg PO HS 10 Days #10 tablet Omeprazole 20 mg PO DAILY #14 tablet.Raeann Arechiga - Last Filed: 03/19/18 20:34> Hospitalist Progress Note - Encounter Date of Encounter: 03/19/18 - Exam Vitals: Temp Pulse Resp BP Pulse Ox 97.5 F L 82 18 129/68 98 03/19/18 19:03 03/19/18 19:03 03/19/18 19:03 03/19/18 19:03 03/19/18 19:03 - Assessment and Plan (1) Diabetes mellitus Current Visit: No Status: Chronic (2) HTN (hypertension) Current Visit: No Status: Chronic (3) HLD (hyperlipidemia) Current Visit: No Status: Chronic (4) Sepsis Current Visit: No Status: Acute (5) Hypokalemia Current Visit: No Status: Acute (6) UTI (urinary tract infection) Current Visit: Yes Status: Acute (7) Bilateral hydronephrosis Current Visit: No Status: Chronic (8) Hyponatremia Current Visit: No Status: Chronic (9) CKD (chronic kidney disease) stage 5, GFR less than 15 ml/min Current Visit: No Status: Acute (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 Current Visit: Yes Status: Acute - Time Spent with Patient Total time spent is greater than 50% in coordination of care (as documented) at patient's floor/unit and/or counseling patient: Internal Medicine: Result - Labs CBC & Chem 7: 03/19/18 05:56 03/19/18 05:56 Labs: Short CBC 03/19/18 Range/Units 05:56 WBC 6.1 (4.3-11.1) K/mcL Hgb 9.5 L (11.5-15.4) g/dL Hct 31.1 L (35.3-44.9) % Plt Count 300 (140-400) K/mcL Neutrophils # 4.0 (1.6-8.9) K/mcL BMP 03/19/18 05:56 Sodium 131 L Potassium 4.7 Chloride 99 Carbon Dioxide 25 BUN 26 H Creatinine 2.55 H Glucose 191 H Calcium 8.3 L - Attending Attestation I examined this patient and my medical decision-making was reviewed with the Resident Physician Dr. Reed. I agree with the documented findings, disposition and treatment plan as described except to the extent set forth below. Awaiting final cultures prior to discharge. <Gordon Arias - Last Filed: 03/19/18 17:08> (1) Sepsis Qualifiers: Sepsis type: sepsis due to unspecified organism Qualified Code(s): A41.9 - Sepsis, unspecified organism (2) UTI (urinary tract infection) Qualifiers: Urinary tract infection type: acute cystitis Hematuria presence: without hematuria Qualified Code(s): N30.00 - Acute cystitis without hematuria (3) Diabetes mellitus Qualifiers: Diabetes mellitus type: type 2 Diabetes mellitus prison insulin use: with intermission coordinator use Diabetes mellitus complication status: with kidney complications Diabetes mellitus complication detail: with chronic kidney disease Chronic kidney disease stage: stage 3 (moderate) Qualified Code(s): E11.22 - Type 2 diabetes mellitus with diabetic chronic kidney disease; N18.3 - Chronic kidney disease, stage 3 (moderate); Z79.4 - terminal clerk (current) use of insulin (4) HTN (hypertension) Qualifiers: Hypertension type: essential hypertension Qualified Code(s): I10 - Essential (primary) hypertension (5) HLD (hyperlipidemia) Qualifiers: Hyperlipidemia type: unspecified Qualified Code(s): E78.5 - Hyperlipidemia, unspecified <Raeann Casanova - Last Filed: 03/19/18 20:34> (1) Diabetes mellitus Qualifiers: Diabetes mellitus type: type 2 Diabetes mellitus intermission coordinator insulin use: with intermission coordinator use Diabetes mellitus complication status: with kidney complications Diabetes mellitus complication detail: with chronic kidney disease Chronic kidney disease stage: stage 3 (moderate) Qualified Code(s): E11.22 - Type 2 diabetes mellitus with diabetic chronic kidney disease; N18.3 - Chronic kidney disease, stage 3 (moderate); Z79.4 - terminal clerk (current) use of insulin (2) HTN (hypertension) Qualifiers: Hypertension type: essential hypertension Qualified Code(s): I10 - Essential (primary) hypertension (3) HLD (hyperlipidemia) Qualifiers: Hyperlipidemia type: unspecified Qualified Code(s): E78.5 - Hyperlipidemia, unspecified (4) Sepsis Qualifiers: Sepsis type: sepsis due to unspecified organism Qualified Code(s): A41.9 - Sepsis, unspecified organism (6) UTI (urinary tract infection) Qualifiers: Urinary tract infection type: acute cystitis Hematuria presence: without hematuria Qualified Code(s): N30.00 - Acute cystitis without hematuria
[2018-03-20] MEDS: *HR* Heparin 5,000 UNIT/ML VIAL SQ SCH (06:47)
[2018-03-20] MEDS ORDERED: 0.9 % Sodium Chloride 250 ML IVC PRN (07:50)
[2018-03-20] MEDS ORDERED: 0.9 % Sodium Chloride 1,000 ML PRIME SCH (08:00)
[2018-03-20 08:51] LABS: Basophils % 0.4 %; Eosinophils % 2.7 %
[2018-03-20 08:56] LABS: Eosinophils # 0.1 K/mcL (0.0-0.6); Hematocrit 32.9 % (35.3-44.9); Hemoglobin 10.1 g/dL (11.5-15.4); Immature Granulocytes % 0.4 % (0-4); Immature Platelets 1.3 % (1.1-6.1); Lymphocytes # 1.6 K/mcL (0.6-4.6); Lymphocytes % 32.8 %; Mean Corpuscular HGB Conc 30.7 g/dL (31.6-35.5); Mean Corpuscular Hemoglobin 26.3 pg (28.0-33.3); Mean Corpuscular Volume 85.7 fL (83.0-100.0); Mean Platelet Volume 8.9 fL (9.4-12.4); Monocytes # 0.5 K/mcL (0.0-1.3); Monocytes % 9.5 %; Neutrophils # 2.6 K/mcL (1.6-8.9); Platelet Count 347 K/mcL (140-400); Red Blood Count 3.84 M/mcL (3.82-4.97); Red Cell Distribution Width 14.5 % (11.5-14.5); Segmented Neutrophils % 54.2 %
[2018-03-20 09:12] LABS: Calcium 8.6 mg/dL (8.6-10.3); Potassium 4.9 mEq/L (3.5-5.1)
[2018-03-20 09:26] LABS: Platelet Estimate Normal (Normal); Reactive Lymphocytes Present (Not Present)
[2018-03-20] MEDS: Insulin LISPRO 300 UNITS/3 ML VIAL SQ SCH ×2 (11:17→12:51)
--- NOTE | 2018-03-20 11:44 | Discharge Summary ---
- NOTES TO OUTPATIENT PROVIDER Notes to Outpatient Provider: - Will need to ensure Urology follow-up. - So far received 5 days antibiotics. One day of Cipro. 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 treater helper insulin use: with half-way use Diabetes mellitus complication status: with kidney complications Diabetes mellitus complication detail: with chronic kidney disease Chronic kidney disease stage: stage 3 (moderate) Qualified Code(s): E11.22 - Type 2 diabetes mellitus with diabetic chronic kidney disease; N18.3 - Chronic kidney disease, stage 3 (moderate); Z79.4 - jail (current) use of insulin (4) HTN (hypertension) Priority: Secondary Status: Chronic Qualifiers: Hypertension type: essential hypertension Qualified Code(s): I10 - Essential (primary) hypertension (5) HLD (hyperlipidemia) Priority: Secondary Status: Chronic Qualifiers: Hyperlipidemia type: unspecified Qualified Code(s): E78.5 - Hyperlipidemia , unspecified (6) Hypokalemia Priority: Secondary Status: Acute (7) Bilateral hydronephrosis Priority: Secondary Status: Chronic (8) Hyponatremia Priority: Secondary Status: Chronic (9) CKD (chronic kidney disease) stage 5, GFR less than 15 ml/min Priority: Secondary Status: Acute (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 Lacy is a 72 year old female with history of renal disease on dialysis, frequent UTI, had renal stents removed cytoscopy yesterday. She was receiving dialysis today for approx 2 hrs and she began to vomit and was found to be febrile. She had naylor removed yesterday and since removal she has been incontinent of urine. Denies any burning or increased frequency. She denies any missed dialysis appointments. She has dialysis on , Thur, and Sat. On presentation to ED she was tachycardic and urine was noted by staff to be purulent. CT of abdomen showed moderate bilateral hydronephrosis and bladder wall thickening. She had leukocytosis of 15,600. Urinalysis was indicative of UTI. Naylor catheter was placed. She was admitted for sepsis due to UTI. She was started empirically on Rocephin. White count improved, N/V improved, and she was afebrile. She was hemodynamically stable. Blood cultures were negative. Urine Cultures returned with positive MRSA, Proteus mirabilis, and Enterobacter. All of these were sensitive to Cipro. She was discharged in stable condition to complete course of Cipro. She is to have follow-up with Urology. - Time Spent with Patient Total time spent providing and/or coordinating discharge services: - Discharge Medications Prescriptions: Ciprofloxacin [Cipro] 500 mg PO HS 10 Days #10 tablet Omeprazole 20 mg PO DAILY #14 tablet.dr Home Medications: Metoprolol [Lopressor] 12.5 mg PO BID 03/01/16 [History] Aspirin Enteric Coated [Aspirin EC] 81 mg PO DAILY 08/04/17 [History] Oxygen 2 l NS AD 08/04/17 [History] Ferrous Sulfate 325 mg PO BID 10/28/17 [History] Pravastatin Sodium [Pravachol] 10 mg PO HS 10/28/17 [History] Cholecalciferol (Vitamin D3) [Vitamin D3] 1,000 unit PO DAILY 11/16/17 [History] Insulin Glargine,Hum.rec.anlog [Basaglar Kwikpen U-100] 40 unit SQ HS 11/16/17 [ History] Folic Acid 1 mg PO DAILY 30 Days #30 tab 01/08/18 [Rx] Lactobacillus [Culturelle] 2 each PO DAILY cap.sprink 01/08/18 [Rx] Leptospermum Honey GEL [Medihoney Gel] 1 appl TP BID mls 01/08/18 [Rx] Methyl Salicylate/Menthol [Bengay] 1 appl TP BID PRN tube 01/08/18 [Rx] Renal Vitamin [Renal Caps Softgel] 1 mg PO DAILY 30 Days #30 capsule 01/08/18 [ Rx] Ciprofloxacin [Cipro] 500 mg PO HS 10 Days #10 tablet 03/19/18 [Rx] Omeprazole 20 mg PO DAILY #14 tablet. 03/19/18 [Rx] Ciprofloxacin [Cipro] 500 mg PO HS tablet 03/20/18 [Rx] Allergies/Adverse Reactions: 3 Allergy/AdvReac Type Severity Reaction Status Date / Time acetaminophen [From Tylenol] Allergy See Verified 12/22/17 19:03 Comments Influenza Virus Vaccines Allergy See Verified 12/22/17 19:03 Comments NSAIDS (Non-Steroidal Allergy See Verified 02/05/18 02:56 Anti-Inflamma Comments Date of admission: 03/16/18 17:47 Primary care physician: Macario Diallo MD Consults: 03/16/18 19:11 Consult to Nutrition [CONS] Routine Comment: Consulting Provider: NUTRITION Reason for Dietary Consult: MST Score 03/16/18 19:17 Consult to Nephrology [CONS] Routine Consulting Provider: Kidney Isis/SHAINA/FARTUN/HEAVEN Reason for Consult: dialysis Time Notified: 19:17 Call Completed: Yes 03/18/18 07:45 Consult to Dialysis [CONS] ONCE 03/20/18 08:00 Consult to Dialysis [CONS] ONCE Discharging clinician: Raeann Casanova - Constitutional Vitals: Temp Pulse Resp BP Pulse Ox 97.0 F L 76 18 119/64 99 03/20/18 09:00 03/20/18 07:40 03/20/18 09:00 03/20/18 11:00 03/20/18 07:40 General appearance: Present: A&O X 3 Exam: GEN: No acute distress, A&O x3 Heart: RRR, no murmurs appreciated Lungs: Clear to auscultation bilaterally Abdomen: Soft, non-tender, non-distended, normal bowel sounds. Extremities: No edema - Patient Status Disposition: Home, Self-Care Condition: Fair Functional capacity at discharge: independent ambulation Overall status at discharge: patient is progressing back to baseline - Discharge Instructions Follow Up With: Macario Diallo MD [Primary Care Provider] - 03/22/18 11:15 am Forms: ED Satisfaction Letter, Work/School Release Additional Instructions: Please take ciprofloxacin every night for 10 days for urinary tract infection. Take it at night so dialysis doesn't interfere with medication. Please also take omeprazole daily for 14 days for reflux. This is a trial medication and will need to be refilled by PCP if it helps with heartburn and reflux symptoms. Please follow up with primary care provider in 2 weeks. - Diet and Activity Activity: increase activity as tolerated Diet: advance to your usual diet
[2018-03-20 12:12] VITALS: BP 126/70
[2018-03-20] MEDS: Lactobacillus 1 EACH CAP.SPRINK PO SCH (12:50)
[2018-03-20] MEDS: Folic Acid 1 MG TABLET PO SCH (12:50)
[2018-03-20] MEDS: Insulin DETEMIR 100 UNIT/ML X5UNITS SQ SCH (12:50)
[2018-03-20] MEDS: Aspirin Enteric Coated 81 MG Tablet PO SCH (12:50)
[2018-03-20] MEDS: Cholecalciferol (D-3) 1,000 UNIT TABLET PO SCH (12:51)
[2018-03-20] MEDS: Renal Vitamin 1 CAP CAPSULE PO SCH (12:51)
--- NOTE | 2018-03-20 12:54 | Physician Discharge Referral ---
Home Health/Hosp Referral Info Transfer to: Home Health Provider in Charge Post Discharge: PCP - Diagnosis (1) Sepsis Priority: Primary Status: Acute (2) UTI (urinary tract infection) Priority: Secondary Status: Acute (3) Diabetes mellitus Priority: Secondary Status: Chronic (4) HTN (hypertension) Priority: Secondary Status: Chronic (5) HLD (hyperlipidemia) Priority: Secondary Status: Chronic (6) Hypokalemia Priority: Secondary Status: Acute (7) Bilateral hydronephrosis Priority: Secondary Status: Chronic (8) Hyponatremia Priority: Secondary Status: Chronic (9) CKD (chronic kidney disease) stage 5, GFR less than 15 ml/min Priority: Secondary Status: Acute (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 For more information, call the [place] Tobacco Quit Line at 5-985-EDAZ-NOW. - Diet/Nutrition Diet/Nutrition Orders: Renal - Services Needed Following services are medically necessary services: Nursing, Physical Therapy, Occupational Therapy - Transfer Medications Prescriptions: Ciprofloxacin [Cipro] 500 mg PO HS 10 Days #10 tablet Omeprazole 20 mg PO DAILY #14 tablet.dr Home Medications: Metoprolol [Lopressor] 12.5 mg PO BID 03/01/16 [History] Aspirin Enteric Coated [Aspirin EC] 81 mg PO DAILY 08/04/17 [History] Oxygen 2 l NS AD 08/04/17 [History] Ferrous Sulfate 325 mg PO BID 10/28/17 [History] Pravastatin Sodium [Pravachol] 10 mg PO HS 10/28/17 [History] Cholecalciferol (Vitamin D3) [Vitamin D3] 1,000 unit PO DAILY 11/16/17 [History] Insulin Glargine,Hum.rec.anlog [Basaglar Kwikpen U-100] 40 unit SQ HS 11/16/17 [ History] Folic Acid 1 mg PO DAILY 30 Days #30 tab 01/08/18 [Rx] Lactobacillus [Culturelle] 2 each PO DAILY cap.sprink 01/08/18 [Rx] Leptospermum Honey GEL [Medihoney Gel] 1 appl TP BID mls 01/08/18 [Rx] Methyl Salicylate/Menthol [Bengay] 1 appl TP BID PRN tube 01/08/18 [Rx] Renal Vitamin [Renal Caps Softgel] 1 mg PO DAILY 30 Days #30 capsule 01/08/18 [ Rx] Ciprofloxacin [Cipro] 500 mg PO HS 10 Days #10 tablet 03/19/18 [Rx] Omeprazole 20 mg PO DAILY #14 tablet. 03/19/18 [Rx] Ciprofloxacin [Cipro] 500 mg PO HS tablet 03/20/18 [Rx] Allergies/Adverse Reactions: 3 Allergy/AdvReac Type Severity Reaction Status Date / Time acetaminophen [From Tylenol] Allergy See Verified 12/22/17 19:03 Comments Influenza Virus Vaccines Allergy See Verified 12/22/17 19:03 Comments NSAIDS (Non-Steroidal Allergy See Verified 02/05/18 02:56 Anti-Inflamma Comments Certification: Further, I certify that my clinical findings support that this patient is homebound (i.e. absences from home require considerable and taxing effort and are for medical reasons or mu-ism services or infrequently or short duration when for other reasons) because: Homebound Reason: Patient requires assistance of a person or device to safely leave home, Leaving home requires considerable and taxing effort due to condition Attestation: My signature below is to certify that this patient is under my care and that I, or nurse practitioner, or a physician's conference assistant working with me, has a face-to -face encounter with this patient.
--- NOTE | 2018-03-20 16:56 | Nephrology Progress Note ---
Date of Encounter: 03/20/18 Time of Encounter: 12:00 - Assessment and Plan (1) End stage renal disease Status: Acute Continue HD with F as tolerated Next HD planned for thursday (2) UTI (urinary tract infection) Status: Acute abx per primary team Qualifiers: Urinary tract infection type: acute cystitis Hematuria presence: without hematuria Qualified Code(s): N30.00 - Acute cystitis without hematuria (3) Anemia Status: Acute Hgn stable at 10.1 Qualifiers: Anemia type: due to chronic kidney disease Chronic kidney disease stage: on chronic dialysis Qualified Code(s): N18.6 - End stage renal disease; D63.1 - Anemia in chronic kidney disease; Z99.2 - Dependence on renal dialysis Subjective Interval history: Pt seen and examined on HD with no new complaints. feels good and is eager to go home. Objective - Vital Signs Vital signs: Vital Signs Temp Pulse Resp BP Pulse Ox 03/20/18 12:11 97.4 F L 18 126/70 03/20/18 12:00 110/68 03/20/18 11:45 114/67 03/20/18 11:30 118/55 03/20/18 11:15 136/72 03/20/18 11:00 119/64 03/20/18 10:45 129/66 03/20/18 10:30 110/58 03/20/18 10:15 136/71 03/20/18 10:00 137/69 03/20/18 09:45 129/65 03/20/18 09:30 118/64 03/20/18 09:15 125/66 03/20/18 09:00 97.0 F L 18 140/79 03/20/18 07:40 97.9 F 76 16 105/60 99 03/20/18 05:05 98.0 F 78 18 122/70 98 03/20/18 00:37 98.3 F 80 18 132/80 97 03/19/18 19:03 97.5 F L 82 18 129/68 98 Intake and Output 03/20/18 03/20/18 03/20/18 07:59 15:59 23:59 Intake Total 720 / 720 Output Total 450 / 450 2600 / 2600 Balance -450 / -450 -1880 / -1880 Intake: Oral 120 / 120 Intake, Rinseback and Flushes 600 / 600 Output: Urine 0 / 0 Total Dialysis (HD) Output 2600 / 2600 Catheter 450 / 450 Other: Meal Lunch Percent of Meal Consumed 60% Stool Size Smear Stool Consistency formed Stool Characteristics Normal for Patient Stool Color Brown # Bowel Movement Diapers 1 Weight 55.4 kg Blood Glucose* 194 139 Hemodialysis Net Fluid Removed 2000 (mL) Patient Weight 03/20/18 23:59 Weight 55.4 kg - General Appearance General appearance: Present: chronically ill, fatigue EENT: Present: ATNC, mucous membranes moist Neck: Present: no JVD, supple Respiratory: Present: clear Cardiology: Present: no edema, normal S1, normal S2 Dialysis Vascular Access: Venous Catheter Gastrointestinal: Present: no tenderness, no guarding Integumentary: Present: warm and dry Neurologic: Present: no focal deficit Musculoskeletal: Present: no deformities Psychiatric: Present: mood/affect appropriate, cooperative - Lab 03/20/18 08:39 03/20/18 08:39 Most recent lab results Calcium 8.6 mg/dL (8.6-10.3) 03/20/18 08:39 Phosphorus 3.6 mg/dL (2.7-4.5) 03/17/18 04:10 Magnesium 1.6 mg/dL (1.6-2.6) 03/17/18 04:10 Consult Discharge Plan - Plan Additional Instructions: Please take ciprofloxacin every night for 10 days for urinary tract infection. Take it at night so dialysis doesn't interfere with medication. Please also take omeprazole daily for 14 days for reflux. This is a trial medication and will need to be refilled by PCP if it helps with heartburn and reflux symptoms. Please follow up with primary care provider in 2 weeks. Referrals: Macario Diallo MD [Primary Care Provider] - 03/22/18 11:15 am Darien Gutierrez MD [Partnered Physician] - (Web request sent on 03/20/18) Prescriptions: Ciprofloxacin [Cipro] 500 mg PO HS 10 Days #10 tablet Omeprazole 20 mg PO DAILY #14 tablet.
== END 2018-03-20 14:07 | disposition home health service (06) ==
LOC: EMEROOARM 13:11 → 2ANU 13:11 → SUATTDRO 17:47 → 2ANU 18:50
PROVIDERS: ADMIT Internal Medicine; ATTEND Student in an Organized Health Care Education/Training Program

== ENCOUNTER 2018-04-07 09:17 | Inpatient (IN) ==
[2018-04-07] MEDS ORDERED: cefTRIAXone 2,000 MG in 0.9 % Sodium Chloride Mini Bag 100 ML IVPB ONE (09:30)
[2018-04-07] MEDS ORDERED: 0.9 % Sodium Chloride 1,000 ML IVC ONE (09:30)
[2018-04-07] MEDS ORDERED: Ondansetron 4 MG/2 ML VIAL IVP ONE ×2 (09:31→10:13)
--- NOTE | 2018-04-07 09:40 | Emergency Department Note ---
Disposition Clinical Impression: UTI (urinary tract infection) Qualifiers: Urinary tract infection type: site unspecified Hematuria presence: with hematuria Qualified Code(s): N39.0 - Urinary tract infection, site not specified ; R31.9 - Hematuria, unspecified Disposition: Still a Patient Condition: Fair General Adult HPI - General Chief complaint: ED Nausea/Vomiting/Diarrhea Stated complaint: N/V Time Seen by Provider: 04/07/18 09:23 Source: EMS Limitations: no limitations Nursing Notes Reviewed: Yes Vital Signs Reviewed: Yes - History of Present Illness HPI Narrative: 72 year old female presents with nausea and vomiting since this morning. Pt lives at home with her grandson. She has home health nurse visit regularly. Pt stated her nurse didn't change her naylor catheter in the past Thursday. Pt felt sick this morning. No chills and fever. Onset (ago): hour(s) (4) Location: other (superpubic) Pain Scale: 4 - Related Data Home Medications Medication Instructions Recorded Confirmed Metoprolol [Lopressor] 12.5 mg PO BID 03/01/16 03/16/18 Aspirin Enteric Coated [Aspirin EC] 81 mg PO DAILY 08/04/17 03/16/18 Oxygen 2 l NS AD 08/04/17 03/16/18 Ferrous Sulfate 325 mg PO BID 10/28/17 03/16/18 Pravastatin Sodium [Pravachol] 10 mg PO HS 10/28/17 03/16/18 Cholecalciferol (Vitamin D3) 1,000 unit PO DAILY 11/16/17 03/16/18 [Vitamin D3] Insulin Glargine,Hum.rec.anlog 40 unit SQ HS 11/16/17 03/16/18 [Basaglar Kwikpen U-100] Previous Rx's Medication Instructions Recorded Folic Acid 1 mg PO DAILY 30 Days #30 tab 01/08/18 Lactobacillus [Culturelle] 2 each PO DAILY cap.sprink 01/08/18 Leptospermum Honey GEL [Medihoney 1 appl TP BID mls 01/08/18 Gel] Methyl Salicylate/Menthol [Bengay] 1 appl TP BID PRN tube 01/08/18 Renal Vitamin [Renal Caps Softgel] 1 mg PO DAILY 30 Days #30 capsule 01/08/18 Ciprofloxacin [Cipro] 500 mg PO HS 10 Days #10 tablet 03/19/18 Omeprazole 20 mg PO DAILY #14 tablet. 03/19/18 Ciprofloxacin [Cipro] 500 mg PO HS tablet 03/20/18 Allergies Allergy/AdvReac Type Severity Reaction Status Date / Time acetaminophen [From Tylenol] Allergy See Verified 12/22/17 19:03 Comments Influenza Virus Vaccines Allergy See Verified 12/22/17 19:03 Comments NSAIDS (Non-Steroidal Allergy See Verified 02/05/18 02:56 Anti-Inflamma Comments Constitutional: Denies: fever, chills, weakness, weight change Eyes: Denies: eye pain, eye discharge, vision change ENT ED: Denies: ear pain, throat pain, dental pain, hearing loss, epistaxis, congestion, dysphagia Cardiovascular: Denies: chest pain, palpitations, dyspnea on exertion, edema, syncope Respiratory: Denies: cough, dyspnea, wheezes, hemoptysis, stridor Gastrointestinal: Reports: nausea, vomiting. Denies: abdominal pain, diarrhea, constipation, hematemesis, melena, hematochezia Genitourinary: Denies: dysuria, frequency, hematuria, discharge Musculoskeletal: Denies: back pain, neck pain, arthralgia, myalgia Integumentary: Denies: rash, abrasion, lesions Neurological: Denies: headache, weakness, numbness, paresthesias, confusion, abnormal gait, vertigo Psychiatric: Denies: anxiety, depression, suicidal thoughts, homicidal thoughts , auditory hallucinations, visual hallucinations Endocrine: Denies: fatigue Hematological/Lymphatic: Denies: easy bleeding, easy bruising Allergic/Immunologic: Denies: facial swelling, urticaria Past Medical History - Past Medical History Medical history: Reports: diabetes, hyperlipidemia, hypertension, renal disease , other Surgical history: Reports: appendectomy, cholecystectomy, hysterectomy Psychiatric history: Reports: anxiety CERTIFIED TEACHER 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: Reports: no CERTIFIED TEACHER 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 - Social History Smoking Status: Never smoker Smokeless Tobacco Status: No Alcohol use: Reports: none Drug use: Reports: none Physical Exam - General Limitations: no limitations General appearance: alert, in no apparent distress - Head Head exam: atraumatic, normocephalic, normal inspection - Eye Eye exam: Present: normal appearance, PERRL, EOMI - ENT ENT exam: normal exam, normal oropharynx, mucous membranes moist - Neck Neck exam: Present: normal inspection, full ROM, trachea midline - Chest Chest inspection: Present: normal inspection, symmetric chest wall rise - Respiratory Respiratory exam: Present: normal lung sounds bilaterally - Cardiovascular Cardiovascular exam: Present: regular rate, normal rhythm, normal heart sounds - Abdominal Exam Abdominal exam: Present: soft, tenderness (superpubic tender to palpation), other - Female Clinical Asst present during exam: Yes (thick nasty urine in naylor back with bad odor) - Extremities Exam Extremities exam: Present: normal inspection, full ROM. Absent: tenderness, pedal edema - Back Exam Back exam: Present: normal inspection, full ROM. Absent: tenderness - Neurological Exam Neurological exam: Present: alert, oriented X3 - Psychiatric Psychiatric exam: Present: normal affect, normal mood - Skin Skin exam: Present: warm, dry, intact, normal color Course Vital Signs Temperature 98.1 F 04/07/18 09:22 Pulse Rate 99 04/07/18 09:22 Respiratory Rate 18 04/07/18 09:22 Blood Pressure 107/58 04/07/18 09:22 O2 Sat by Pulse Oximetry 98 04/07/18 09:22 Temperature 98.1 F 04/07/18 09:22 Pulse Rate 99 04/07/18 09:22 Respiratory Rate 18 04/07/18 09:22 Blood Pressure 107/58 04/07/18 09:22 O2 Sat by Pulse Oximetry 98 04/07/18 09:22 Oxygen Delivery Oxygen Delivery Room Air Medical Decision Making - [facility] Narrative Medical decision making narrative: 72 year old female with chronic naylor catheter presents with nausea and vomiting since this morning. Pt reported unchanged naylor catheter over two weeks. Pt denied chills and fever. Physical exam: afebrile, pulse 99, BP 107/58 , superpubic tender to palpation, thick nasty urine in naylor bag with smelly odor. Impression: UTI. Based on pt's vitals, consider possibility of urinary sepsis, IV fluids and antibiotics started. Labs pending. Transfer care to Shaylee Oliveira
[2018-04-07 09:54] LABS: Basophils % 0.3 %; Eosinophils % 0.1 %; Hematocrit 33.7 % (35.3-44.9); Immature Granulocytes % 0.6 % (0-4); Lymphocytes # 1.6 K/mcL (0.6-4.6); Lymphocytes % 14.2 %; Mean Corpuscular HGB Conc 29.7 g/dL (31.6-35.5); Mean Corpuscular Hemoglobin 25.4 pg (28.0-33.3); Mean Corpuscular Volume 85.5 fL (83.0-100.0); Mean Platelet Volume 8.7 fL (9.4-12.4); Monocytes # 0.9 K/mcL (0.0-1.3); Monocytes % 8.2 %; Neutrophils # 8.5 K/mcL (1.6-8.9); Platelet Count 372 K/mcL (140-400); Red Blood Count 3.94 M/mcL (3.82-4.97); Red Cell Distribution Width 15.5 % (11.5-14.5); Segmented Neutrophils % 76.6 %
[2018-04-07 10:15] LABS: Albumin 2.8 g/dL (3.5-5.7); Albumin/Globulin Ratio 0.5 (1.1-2.2); Bilirubin,Total 0.4 mg/dL (0.3-1.0); Calcium 8.7 mg/dL (8.6-10.3); Globulin 5.9 g/dL (2.4-3.5); Potassium 4.9 mEq/L (3.5-5.1); Total Protein 8.7 g/dL (6.4-8.9)
--- NOTE | 2018-04-07 10:15 | Emergency Department Note ---
Disposition Clinical Impression: End stage renal disease, Pyuria, Bladder outlet obstruction UTI (urinary tract infection) Qualifiers: Urinary tract infection type: acute cystitis Hematuria presence: with hematuria Qualified Code(s): N30.01 - Acute cystitis with hematuria Nausea and vomiting Qualifiers: Vomiting type: unspecified Vomiting Intractability: intractable Qualified Code( s): R11.2 - Nausea with vomiting, unspecified Diabetes mellitus Qualifiers: Diabetes mellitus type: type 2 Diabetes mellitus mcfp insulin use: with mcfp use Diabetes mellitus complication status: with unspecified complications Qualified Code(s): E11.8 - Type 2 diabetes mellitus with unspecified complications; Z79.4 - jail (current) use of insulin Disposition: Admitted As Inpatient Condition: Fair General Adult HPI - General Chief complaint: ED Nausea/Vomiting/Diarrhea Stated complaint: N/V Time Seen by Provider: 04/07/18 09:23 Source: EMS Limitations: no limitations - History of Present Illness Location: other (superpubic) Pain Scale: 4 - Related Data Home Medications Medication Instructions Recorded Confirmed Metoprolol [Lopressor] 12.5 mg PO BID 03/01/16 04/07/18 Aspirin Enteric Coated [Aspirin EC] 81 mg PO DAILY 08/04/17 04/07/18 Oxygen 2 l NS AD 08/04/17 04/07/18 Ferrous Sulfate 325 mg PO BID 10/28/17 04/07/18 Pravastatin Sodium [Pravachol] 10 mg PO HS 10/28/17 04/07/18 Cholecalciferol (Vitamin D3) 1,000 unit PO DAILY 11/16/17 04/07/18 [Vitamin D3] Insulin Glargine,Hum.rec.anlog 40 unit SQ HS 11/16/17 04/07/18 [Basaglar Kwikpen U-100] Previous Rx's Medication Instructions Recorded Folic Acid 1 mg PO DAILY 30 Days #30 tab 01/08/18 Lactobacillus [Culturelle] 2 each PO DAILY cap.sprink 01/08/18 Renal Vitamin [Renal Caps Softgel] 1 mg PO DAILY 30 Days #30 capsule 01/08/18 Omeprazole 20 mg PO DAILY #14 tablet. 03/19/18 Allergies Allergy/AdvReac Type Severity Reaction Status Date / Time acetaminophen [From Tylenol] Allergy See Verified 12/22/17 19:03 Comments Influenza Virus Vaccines Allergy See Verified 12/22/17 19:03 Comments NSAIDS (Non-Steroidal Allergy See Verified 02/05/18 02:56 Anti-Inflamma Comments Constitutional: Denies: fever, chills, weakness, weight change Eyes: Denies: eye pain, eye discharge, vision change ENT ED: Denies: ear pain, throat pain, dental pain, hearing loss, epistaxis, congestion, dysphagia Cardiovascular: Denies: chest pain, palpitations, dyspnea on exertion, edema, syncope Respiratory: Denies: cough, dyspnea, wheezes, hemoptysis, stridor Gastrointestinal: Reports: nausea, vomiting. Denies: abdominal pain, diarrhea, constipation, hematemesis, melena, hematochezia Genitourinary: Denies: dysuria, frequency, hematuria, discharge Musculoskeletal: Denies: back pain, neck pain, arthralgia, myalgia Integumentary: Denies: rash, abrasion, lesions Neurological: Denies: headache, weakness, numbness, paresthesias, confusion, abnormal gait, vertigo Psychiatric: Denies: anxiety, depression, suicidal thoughts, homicidal thoughts , auditory hallucinations, visual hallucinations Endocrine: Denies: fatigue Hematological/Lymphatic: Denies: easy bleeding, easy bruising Allergic/Immunologic: Denies: facial swelling, urticaria Past Medical History - Past Medical History Medical history: Reports: diabetes, hyperlipidemia, hypertension, renal disease , other Surgical history: Reports: appendectomy, cholecystectomy, hysterectomy Psychiatric history: Reports: anxiety CONCHE OPERATOR history: Reports: no CONCHE OPERATOR history - Social History Smoking Status: Never smoker Smokeless Tobacco Status: No Alcohol use: Reports: none Drug use: Reports: none Physical Exam - General Limitations: no limitations General appearance: alert, in no apparent distress Course Course Narrative: 72-year-old female signed out to me by the [facility]. Patient currently being worked up from a urosepsis perspective. Urine in Madden bag pus like. Upon examination the patient she is tachycardic but otherwise stable. Patient complaining of nausea still. We will provide her with 4 mg of Zofran and reassess. Disposition most likely admission but pending results. - Reevaluation(s) Reevaluation #1: Patient's laboratory analysis mostly unchanged from baseline. Patient does have known dialysis Thursday, and Thursday. Due to patient's purulent urine and previous multiple admissions for multiple drug resistant urinary tract infections we will plan to admit the patient at this time. I spoke with the grocery manager on-call Dr. Meza who is well aware of the patient and sees her as an outpatient and she agrees that admission is the appropriate disposition for this patient due to her history. We will contact urology to replace the Madden as multiple attempts with a 14, 16 and coude catheter were failed. According to Dr. Meza patient is known to urology. Patient is alert in the room. Tachycardic but otherwise vital signs stable. We spoke with the hospitalist media liaison officer Dr. Melendez who agrees to accept the patient at this time. Patient agrees with this plan. I spoke with the urologist media liaison officer Dr. Gutierrez who agrees to see the patient. He states that the patient admitted to the floor and he will place a Madden later this afternoon. Vital Signs Temperature 98.1 F 04/07/18 09:22 Pulse Rate 99 04/07/18 09:22 Respiratory Rate 18 04/07/18 09:22 Blood Pressure 107/58 04/07/18 09:22 O2 Sat by Pulse Oximetry 98 04/07/18 09:22 Temperature 98.1 F 04/07/18 09:22 Pulse Rate 94 04/07/18 12:03 Respiratory Rate 16 04/07/18 12:03 Blood Pressure 117/69 04/07/18 12:03 O2 Sat by Pulse Oximetry 100 04/07/18 12:03 Oxygen Delivery Oxygen Delivery Room Air Medical Decision Making - Lab Data Result diagrams: 04/07/18 09:36 04/07/18 09:36 Lab Results 04/07/18 04/07/18 04/07/18 Range/Units 09:36 09:36 09:36 WBC 11.1 (4.3-11.1) K/mcL RBC 3.94 (3.82-4.97) M/mcL Hgb 10.0 L (11.5-15.4) g/dL Hct 33.7 L (35.3-44.9) % MCV 85.5 (83.0-100.0) fL MCH 25.4 L (28.0-33.3) pg MCHC 29.7 L (31.6-35.5) g/dL RDW 15.5 H (11.5-14.5) % Plt Count 372 (140-400) K/mcL MPV 8.7 L (9.4-12.4) fL Immature Gran % 0.6 (0-4) % Seg Neutrophils % 76.6 % Lymphocytes % 14.2 % Monocytes % 8.2 % Eosinophils % 0.1 % Basophils % 0.3 % Neutrophils # 8.5 (1.6-8.9) K/mcL Lymphocytes # 1.6 (0.6-4.6) K/mcL Monocytes # 0.9 (0.0-1.3) K/mcL Eosinophils # 0.0 (0.0-0.6) K/mcL Basophils # 0.0 (0.0-0.2) K/mcL Sodium 132 L (136-145) mEq/L Potassium 4.9 (3.5-5.1) mEq/L Chloride 94 L (98-107) mEq/L Carbon Dioxide 23 (23-29) mEq/L BUN 28 H (8-23) mg/dL Creatinine 3.73 H (0.60-1.20) mg/dL Est GFR ( Amer) 14 L (> 60) Est GFR (Non-Af Amer) 12 L (> 60) BUN/Creatinine Ratio 8 (6-26) Glucose 212 H (70-105) mg/dL Calculated Osmolality 286 (280-300) Lactic Acid 1.3 (0.5-2.2) mmol/L Calcium 8.7 (8.6-10.3) mg/dL Total Bilirubin 0.4 (0.3-1.0) mg/dL AST 11 L (13-39) Units/L ALT 6 L (7-52) Units/L Alkaline Phosphatase 132 H (34-104) Units/L Serum Total Protein 8.7 (6.4-8.9) g/dL Albumin 2.8 L (3.5-5.7) g/dL Globulin 5.9 H (2.4-3.5) g/dL Albumin/Globulin Ratio 0.5 L (1.1-2.2)
--- NOTE | 2018-04-07 12:24 | Emergency Department Note ---
Disposition Clinical Impression: End stage renal disease, Pyuria, Bladder outlet obstruction, Diabetes mellitus UTI (urinary tract infection) Qualifiers: Urinary tract infection type: acute cystitis Hematuria presence: with hematuria Qualified Code(s): N30.01 - Acute cystitis with hematuria Nausea and vomiting Qualifiers: Vomiting type: unspecified Vomiting Intractability: intractable Qualified Code( s): R11.2 - Nausea with vomiting, unspecified Disposition: Admitted As Inpatient Condition: Fair Referrals: Macario Diallo MD [Primary Care Provider] - Forms: ED Satisfaction Letter General Adult HPI - General Chief complaint: ED Nausea/Vomiting/Diarrhea Stated complaint: N/V Time Seen by Provider: 04/07/18 09:23 Source: EMS Limitations: no limitations - History of Present Illness Location: other (superpubic) Pain Scale: 4 - Related Data Home Medications Medication Instructions Recorded Confirmed Metoprolol [Lopressor] 12.5 mg PO BID 03/01/16 04/07/18 Aspirin Enteric Coated [Aspirin EC] 81 mg PO DAILY 08/04/17 04/07/18 Oxygen 2 l NS AD 08/04/17 04/07/18 Ferrous Sulfate 325 mg PO BID 10/28/17 04/07/18 Pravastatin Sodium [Pravachol] 10 mg PO HS 10/28/17 04/07/18 Cholecalciferol (Vitamin D3) 1,000 unit PO DAILY 11/16/17 04/07/18 [Vitamin D3] Insulin Glargine,Hum.rec.anlog 40 unit SQ HS 11/16/17 04/07/18 [Basaglar Kwikpen U-100] Previous Rx's Medication Instructions Recorded Folic Acid 1 mg PO DAILY 30 Days #30 tab 01/08/18 Lactobacillus [Culturelle] 2 each PO DAILY cap.sprink 01/08/18 Renal Vitamin [Renal Caps Softgel] 1 mg PO DAILY 30 Days #30 capsule 01/08/18 Omeprazole 20 mg PO DAILY #14 tablet. 03/19/18 Allergies Allergy/AdvReac Type Severity Reaction Status Date / Time acetaminophen [From Tylenol] Allergy See Verified 12/22/17 19:03 Comments Influenza Virus Vaccines Allergy See Verified 12/22/17 19:03 Comments NSAIDS (Non-Steroidal Allergy See Verified 02/05/18 02:56 Anti-Inflamma Comments Constitutional: Denies: fever, chills, weakness, weight change Eyes: Denies: eye pain, eye discharge, vision change ENT ED: Denies: ear pain, throat pain, dental pain, hearing loss, epistaxis, congestion, dysphagia Cardiovascular: Denies: chest pain, palpitations, dyspnea on exertion, edema, syncope Respiratory: Denies: cough, dyspnea, wheezes, hemoptysis, stridor Gastrointestinal: Reports: nausea, vomiting. Denies: abdominal pain, diarrhea, constipation, hematemesis, melena, hematochezia Genitourinary: Denies: dysuria, frequency, hematuria, discharge Musculoskeletal: Denies: back pain, neck pain, arthralgia, myalgia Integumentary: Denies: rash, abrasion, lesions Neurological: Denies: headache, weakness, numbness, paresthesias, confusion, abnormal gait, vertigo Psychiatric: Denies: anxiety, depression, suicidal thoughts, homicidal thoughts , auditory hallucinations, visual hallucinations Endocrine: Denies: fatigue Hematological/Lymphatic: Denies: easy bleeding, easy bruising Allergic/Immunologic: Denies: facial swelling, urticaria Past Medical History - Past Medical History Medical history: Reports: diabetes, hyperlipidemia, hypertension, renal disease , other Surgical history: Reports: appendectomy, cholecystectomy, hysterectomy Psychiatric history: Reports: anxiety COLLEGE DIRECTOR history: Reports: no COLLEGE DIRECTOR history - Social History Smoking Status: Never smoker Smokeless Tobacco Status: No Alcohol use: Reports: none Drug use: Reports: none Physical Exam - General Limitations: no limitations General appearance: alert, in no apparent distress Course Vital Signs Temperature 98.1 F 04/07/18 09:22 Pulse Rate 99 04/07/18 09:22 Respiratory Rate 18 04/07/18 09:22 Blood Pressure 107/58 04/07/18 09:22 O2 Sat by Pulse Oximetry 98 04/07/18 09:22 Temperature 98.1 F 04/07/18 09:22 Pulse Rate 94 04/07/18 12:03 Respiratory Rate 16 04/07/18 12:03 Blood Pressure 117/69 04/07/18 12:03 O2 Sat by Pulse Oximetry 100 04/07/18 12:03 Oxygen Delivery Oxygen Delivery Room Air Medical Decision Making - Lab Data Result diagrams: 04/07/18 09:36 04/07/18 09:36 Lab Results 04/07/18 04/07/18 04/07/18 Range/Units 09:36 09:36 09:36 WBC 11.1 (4.3-11.1) K/mcL RBC 3.94 (3.82-4.97) M/mcL Hgb 10.0 L (11.5-15.4) g/dL Hct 33.7 L (35.3-44.9) % MCV 85.5 (83.0-100.0) fL MCH 25.4 L (28.0-33.3) pg MCHC 29.7 L (31.6-35.5) g/dL RDW 15.5 H (11.5-14.5) % Plt Count 372 (140-400) K/mcL MPV 8.7 L (9.4-12.4) fL Immature Gran % 0.6 (0-4) % Seg Neutrophils % 76.6 % Lymphocytes % 14.2 % Monocytes % 8.2 % Eosinophils % 0.1 % Basophils % 0.3 % Neutrophils # 8.5 (1.6-8.9) K/mcL Lymphocytes # 1.6 (0.6-4.6) K/mcL Monocytes # 0.9 (0.0-1.3) K/mcL Eosinophils # 0.0 (0.0-0.6) K/mcL Basophils # 0.0 (0.0-0.2) K/mcL Sodium 132 L (136-145) mEq/L Potassium 4.9 (3.5-5.1) mEq/L Chloride 94 L (98-107) mEq/L Carbon Dioxide 23 (23-29) mEq/L BUN 28 H (8-23) mg/dL Creatinine 3.73 H (0.60-1.20) mg/dL Est GFR ( Amer) 14 L (> 60) Est GFR (Non-Af Amer) 12 L (> 60) BUN/Creatinine Ratio 8 (6-26) Glucose 212 H (70-105) mg/dL Calculated Osmolality 286 (280-300) Lactic Acid 1.3 (0.5-2.2) mmol/L Calcium 8.7 (8.6-10.3) mg/dL Total Bilirubin 0.4 (0.3-1.0) mg/dL AST 11 L (13-39) Units/L ALT 6 L (7-52) Units/L Alkaline Phosphatase 132 H (34-104) Units/L Serum Total Protein 8.7 (6.4-8.9) g/dL Albumin 2.8 L (3.5-5.7) g/dL Globulin 5.9 H (2.4-3.5) g/dL Albumin/Globulin Ratio 0.5 L (1.1-2.2) Attestation Statement - Attestation Attestation: I examined this patient and my medical decision-making was reviewed with the Resident Physician. I agree with the documented findings, disposition and treatment plan as described except to the extent set forth below. 72-year-old female presents to the emergency room for nausea and vomiting. States she has not felt well for the past week or so. She was diagnosed with a urinary tract infection within the past week and was placed on antibiotics. She states in about a centimeter stomach sick and she is unable to keep anything down. She has had persistent vomiting. Upon entering the room, patient has pus coming out of her Madden catheter tubing. This is foul- smelling. She has a emesis basin wrapped around her face. Patient appears ill. She is borderline tachycardic with a heart rate of 99 and at times she goes up to 110 on the monitor. She was also slightly tachypnea. Her oxygen saturations were normal. Her blood pressures been stable. Due to the significant amount of pus that was coming out of her Madden catheter we elected to do a Madden catheter exchanged. However, we have have been unable to get the Madden catheter back into place. She does follow with urology as she does have a history of this problem with a urinary obstruction in the past. When we discovered this catheter was unable to be replaced we were concerned that maybe her bladder was distended. We also did a bedside ultrasound that did not reveal any significant amounts of urinary retention. She on exam has no evidence of any of any abdominal distention. Her lab work thus far is stable other than she does have a history of chronic renal failure. She receives dialysis on Thursday. We spoke with her fabric inspector who wanted the patient to be admitted for IV antibiotic therapy as she has failed outpatient therapy on Cipro. Patient is unable to tolerate by mouth and is unable to tolerate outpatient treatment as she has technically failed outpatient therapy for this same issue. We have ordered IV Rocephin. We were awaiting urology consultation as well for Madden placement. I would like to send a urinalysis off at that time as the first urine also contaminated with such a significant amount of pus I do not feel it would be appropriate. We need to get more of a clean-catch at this time. The resident spoke with the hospitalist and did not have a good encounter with them. I attempted to speak with the hospitalist but she had already hung up the phone. When I then was able to speak with the hospitalist she did not feel the patient needed observation criteria. I attempted to explain to her the above findings. She stated that she had a outpatient case manager stating that she did not meet any hospital admission criteria. In this case, I informed her that the fabric inspector service wanted her to be admitted. Patient is becoming very ill and concerns for possible sepsis. She does not meet does criteria yet but with her persistent vomiting and her inability to take any oral antibiotics that makes me more concerned especially since she had a previous history of urosepsis. The fabric inspector agreed and feels the patient needs to be admitted. We have consult with urology and awaiting them to evaluate the patient.
[2018-04-07] MEDS ORDERED: Naloxone 0.4 MG/ML INJ IVP PRN (13:08)
--- NOTE | 2018-04-07 13:32 | Nephrology Consult Note ---
<Arnoldo Richardson - Last Filed: 04/07/18 15:58> Date of Encounter: 04/07/18 Time of Encounter: 13:32 Assessment and Plan (1) End stage renal disease Current Visit: Yes Status: Chronic End-stage renal disease on hemodialysis Thursday Patient is compliant with current regimen, no need for urgent hemodialysis No current chemical derangements at this time We will continue standard hemodialysis treatments Avoid nephrotoxic agents (2) Nausea and vomiting Current Visit: Yes Status: Acute Patient went some nausea and vomiting Encourage adequate oral hydration Management per primary team Qualifiers: Vomiting type: unspecified Vomiting Intractability: intractable Qualified Code(s): R11.2 - Nausea with vomiting, unspecified (3) Pyuria Current Visit: Yes Status: Acute Pyuria in setting of chronic indwelling catheter Presumed UTI given past infection Management per primary team and urology History of Present Illness - Reason for Consult Consult date: 04/07/18 end stage renal disease Requesting physician: Kimberly Manrique - Chief Complaint UTI - History of Present Illness Ms. Lacy is a 72-year-old woman with end-stage renal disease on hemodialysis Thursday also has a history of diabetes mellitus, hyperlipidemia, hypertension, chronic indwelling catheter who presented to emergency department with 2-3 day history of nausea and vomiting. The patient was recently in the hospital admitted for sepsis due to UTI approximately 1 month ago, at which time she was found to have purulent urine which cultured positive for MRSA, Proteus, Enterobacter. At that time she underwent urological intervention with removal of ureteral stents which were thought to be a potential location for infection to occur. The patient states that she has been feeling bad for approximately 2 weeks, specifically with a sore throat which has prevented her from eating or drinking a lot. She will that she says she has had some fevers and chills associated with this. He only started having nausea and vomiting for the past 3 days and decided that today she needed to come to the hospital. She has had no other specific symptoms associated with this. Her vomiting has not been bloody or bilious. She denies any urinary symptoms, however she said that she cannot see down to her urine to notice if there is anything unusual about it. She denies any abdominal pain. She says that she has not changed her Naylor catheter approximately 2 months, although she has been in the hospital since then. She denies missing hemodialysis at any time throughout this time, and she notes that she did present to hemodialysis yesterday. Of note, she says that she did not finish her course of antibiotics at time of discharge from the hospital on 03/19/18. According to discharge summary, the patient was discharged on Cipro as the organisms were all sensitive to it. She has no other acute complaints at this time. Urology was also consulted from the ED to remove the indwelling catheter and replace it with a new one. Nephrology was consultative to continue hemodialysis. Past Med Surg Social Fam HX - Past Medical History Medical history: diabetes, hyperlipidemia, hypertension, renal disease, other Additional medical history: UTI, electrolyte imbalances, ESRD, pancytopenia, CDiff 2016, hydronephrosis, pneumonia, urinary retention/obstructive uropathy, diabetic foot ulcer Psychiatric history: anxiety - Past Surgical History Surgical History: appendectomy, cholecystectomy, hysterectomy Additional surgical history: cholecystectomy and appendectomy? - Social History Smoking Status: Never smoker Smokeless Tobacco Status: No Alcohol use: none Drug use: none - Family History Mother Living Status: Hx Family Cardiac Disorders: Yes Father Living Status: Hx Family Cardiac Disorders: Yes Medications and Allergies Metoprolol [Lopressor] 12.5 mg PO BID 03/01/16 [History] Aspirin Enteric Coated [Aspirin EC] 81 mg PO DAILY 08/04/17 [History] Oxygen 2 l NS AD 08/04/17 [History] Ferrous Sulfate 325 mg PO BID 10/28/17 [History] Pravastatin Sodium [Pravachol] 10 mg PO HS 10/28/17 [History] Cholecalciferol (Vitamin D3) [Vitamin D3] 1,000 unit PO DAILY 11/16/17 [History] Insulin Glargine,Hum.rec.anlog [Basaglar Kwikpen U-100] 40 unit SQ HS 11/16/17 [ History] Folic Acid 1 mg PO DAILY 30 Days #30 tab 01/08/18 [Rx] Lactobacillus [Culturelle] 2 each PO DAILY cap.sprink 01/08/18 [Rx] Renal Vitamin [Renal Caps Softgel] 1 mg PO DAILY 30 Days #30 capsule 01/08/18 [ Rx] Omeprazole 20 mg PO DAILY #14 tablet. 03/19/18 [Rx] 3 Allergy/AdvReac Type Severity Reaction Status Date / Time acetaminophen [From Tylenol] Allergy See Verified 12/22/17 19:03 Comments Influenza Virus Vaccines Allergy See Verified 12/22/17 19:03 Comments NSAIDS (Non-Steroidal Allergy See Verified 02/05/18 02:56 Anti-Inflamma Comments Review of Systems All Systems review (narrative): Constitutional: Denies fevers, chills, weight loss, generalized fatigue Head/Neck: Denies MASON, neck stiffness EENT: Admits to sore throat and odynophagia, difficulty hearing CVS: Denies chest pain, palpitations, GUO, orthopnea, edema, PND Pulm: Admits to chronic cough and she has noticed some increased wheezing GI: Admits to nausea and vomiting, denies diarrhea constipation abdominal pain : Denies dysuria, increased frequency, urgency, hematuria Heme: Denies ease of bleeding or bruising Skin: Denies rashes, ulcers, color changes Neuro: Denies MASON, paresthesias, focal deficits, ataxia Exam - Vital Signs Vital signs: Initial Vital Signs Temp Pulse Resp BP Pulse Ox 98.1 F 99 18 107/58 98 04/07/18 09:22 04/07/18 09:22 04/07/18 09:22 04/07/18 09:22 04/07/18 09:22 Vital Signs - Last 8 Hours Resp BP 04/07/18 13:00 18 126/67 - General Appearance Exam: Gen: Vitals noted. No acute distress. Frail-appearing elderly woman HEENT: Normocephalic, atraumatic Neck: Supple. No adenopathy. Cardiac: RRR, no murmur, +S1/S2 Pulmonary: Relatively clear to auscultation bilaterally with occasional wheezes dispersed throughout Abdomen: soft, very mild tenderness to palpation of the suprapubic region, no guarding Extremities: no BLE edema, nontender calf, no cyanosis or clubbing Dialysis access: Left subclavian tunneled catheter with no erythema surrounding : New Naylor catheter in place with bloody, purulent appearing urine in collection tube Neuro: moves all extremities, no focal deficits. A&Ox3 Psych: Appropriate mood and behavior Results - Lab Results 04/07/18 09:36 04/07/18 09:36 Most recent lab results Calcium 8.7 mg/dL (8.6-10.3) 04/07/18 09:36 Consult Discharge Plan - Plan Referrals: Macario Diallo MD [Primary Care Provider] - <Layla Dennis Susana - Last Filed: 04/12/18 00:33> Date of Encounter: 04/07/18 Assessment and Plan (1) Anemia Current Visit: Yes Status: Acute Qualifiers: Anemia type: due to chronic kidney disease Chronic kidney disease stage: on chronic dialysis Qualified Code(s): N18.6 - End stage renal disease; D63.1 - Anemia in chronic kidney disease; Z99.2 - Dependence on renal dialysis (2) Bacteremia Current Visit: Yes Status: Acute (3) ESRD (end stage renal disease) Current Visit: Yes Status: Acute (4) Elevated troponin Current Visit: Yes Status: Acute (5) Hemodialysis catheter dysfunction Current Visit: Yes Status: Acute Qualifiers: Encounter type: initial encounter Qualified Code(s): T82.41XA - Breakdown ( mechanical) of vascular dialysis catheter, initial encounter Exam - Vital Signs Vital signs: Initial Vital Signs Temp Pulse Resp BP Pulse Ox 98.1 F 99 18 107/58 98 04/07/18 09:22 04/07/18 09:22 04/07/18 09:22 04/07/18 09:22 04/07/18 09:22 Vital Signs - Last 8 Hours Temp Pulse Resp BP Pulse Ox 04/11/18 21:10 98.6 F 93 18 120/67 96 Intake and Output 04/11/18 04/11/18 04/12/18 15:59 23:59 07:59 Intake Total 220 / 220 Output Total 350 / 350 Balance 220 / 220 -350 / -350 Intake: IV Fluids 100 / 100 Zosyn 3.375 GM In 0.9 % Sodium 100 / 100 Chloride (Mini-Bag +) 100 ML @ 25 mls/hr IVPB Q12HR VIKA Rx#: [id number] Oral 120 / 120 Output: Catheter 350 / 350 Other: Meal Lunch Percent of Meal Consumed 15% Stool Size Moderate Stool Consistency loose liquid Stool Color Brown Blood Glucose* 365 80 Results - Lab Results 04/11/18 04:00 04/11/18 04:00 Most recent lab results Calcium 8.3 mg/dL (8.6-10.3) L 04/11/18 04:00 Magnesium 1.5 mg/dL (1.6-2.6) L 04/11/18 04:00 - Attending Attestation I examined this patient and my medical decision-making was reviewed with the Resident Physician/MANAGER OF PROJECT MANAGEMENT. I agree with the documented findings, disposition and treatment plan as described except to the extent set forth below. Pt seen and examined and in brief; 72 y o female with ESRD on HD and chronic naylor admitted with days of N/V and noted to have pyuria. Pt apparently did not finish abx regimen prescribed at last hospital stay. On exam frail elderly lady acutely ill. No LE edema noted.Urology notified from the ED to help replace naylor. Abx per primary team. Pt received last HD on her routine schedule TTS and does not need today but will arrange tomorrow.
--- NOTE | 2018-04-07 13:41 | Internal Med History&Physical ---
Date of Encounter: 04/07/18 Time of Encounter: 12:30 Internal Medicine - H&P: HPI Chief complaint: Nausea and Vomiting Admitted From: Home Plans for Post Hospital Care: Home History of present illness: Ms. Lacy is a 72 year old female with past medical history significant for chronic renal disease on dialysis, diabetes, hypertension, hyperlipidemia, and GERD who presents for 2 week history of intermittent nausea, vomiting, sore throat, and non productive cough. Denies chest pain, shortness of breath, fever , diarrhea, or hematemesis. Last bowel movement yesterday and normal per patient. Has had decreased oral intake due to nausea and vomiting. Denies any current treatment. No exacerbating or alleviating factors. Patient with chronic urinary catheter for past three months, reportedly last changed around two weeks ago. ER reports patient recently treated with Cipro as outpatient for UTI, but presents today with pus filled catheter and drainage bag with foul smelling urine. ER removed catheter and called urology for replacement and are planning UA collection at that time. Patient also receives dialysis Thursday, , and Thursday, and ER contacted nephrology prior to admission for same. Patient reportedly wears 2lpm nasal canula at night and has not needed any increased oxygen at home. Patient discussed with Dr Melendez. Past Med Surg Social Fam HX - Past Medical History Medical history: diabetes, hyperlipidemia, hypertension, renal disease, other Additional medical history: UTI, electrolyte imbalances, ESRD, pancytopenia, CDiff 2016, hydronephrosis, pneumonia, urinary retention/obstructive uropathy, diabetic foot ulcer Psychiatric history: anxiety - Past Surgical History Surgical History: appendectomy, cholecystectomy, hysterectomy Additional surgical history: cholecystectomy and appendectomy? - Social History Smoking Status: Never smoker Smokeless Tobacco Status: No Alcohol use: none Drug use: none - Family History Mother Living Status: Hx Family Cardiac Disorders: Yes Father Living Status: Hx Family Cardiac Disorders: Yes Internal Medicine - H&P: Meds Metoprolol [Lopressor] 12.5 mg PO BID 03/01/16 [History] Aspirin Enteric Coated [Aspirin EC] 81 mg PO DAILY 08/04/17 [History] Oxygen 2 l NS AD 08/04/17 [History] Ferrous Sulfate 325 mg PO BID 10/28/17 [History] Pravastatin Sodium [Pravachol] 10 mg PO HS 10/28/17 [History] Cholecalciferol (Vitamin D3) [Vitamin D3] 1,000 unit PO DAILY 11/16/17 [History] Insulin Glargine,Hum.rec.anlog [Janelle Casas U-100] 40 unit SQ HS 11/16/17 [ History] Folic Acid 1 mg PO DAILY 30 Days #30 tab 01/08/18 [Rx] Lactobacillus [Culturelle] 2 each PO DAILY cap.sprink 01/08/18 [Rx] Renal Vitamin [Renal Caps Softgel] 1 mg PO DAILY 30 Days #30 capsule 01/08/18 [ Rx] Omeprazole 20 mg PO DAILY #14 tablet. 03/19/18 [Rx] 3 Allergy/AdvReac Type Severity Reaction Status Date / Time acetaminophen [From Tylenol] Allergy See Verified 12/22/17 19:03 Comments Influenza Virus Vaccines Allergy See Verified 12/22/17 19:03 Comments NSAIDS (Non-Steroidal Allergy See Verified 02/05/18 02:56 Anti-Inflamma Comments All Systems PM: A 10-system review of systems was performed and is negative for pertinent findings except as documented above in the HPI. - Constitutional Vitals: Temp Pulse Resp BP Pulse Ox 98.1 F 94 18 126/67 100 04/07/18 09:22 04/07/18 12:03 04/07/18 13:00 04/07/18 13:00 04/07/18 12:03 Exam: General: Alert and oriented. Skin:Normal color, no rash, no lesions. HEENT:EOM, pupils equal, round and reactive. Throat without redness or swelling. Cardiovascular:Normal S1 & S2, no rubs, murmurs or gallops. No JVD. Pulse regular. Dialysis catheter noted to left chest with dressing dry and intact. Lungs:Normal breath sounds, no wheezes or crackles. Abdomen:Soft, no rigidity. Mild tenderness on palpation to area of bladder. Extremities:No deformity, no edema or tenderness, no joint swelling or clubbing. Neurological:Normal cognition and motor skills. Pulses:Carotid and radial pulses normal +2. Rest of the physical exam is non contributory. Internal Med - H&P Results - Labs CBC & Chem 7: 04/07/18 09:36 04/07/18 09:36 - Assessment and plan (1) UTI (urinary tract infection) Current Visit: Yes Status: Acute Assessment and plan: Urology consulted to replace catheter. UA to be obtained at catheter placement. Rocephin started in the ER, previous UTI sensitive to Levaquin, will start same tomorrow. Blood cultures pending. Repeat labs in a.m. Qualifiers: Urinary tract infection type: site unspecified Hematuria presence: without hematuria Qualified Code(s): N39.0 - Urinary tract infection, site not specified (2) Sepsis Current Visit: Yes Status: Suspected Assessment and plan: History of urosepsis, monitor closely for sepsis. 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 Blood cultures pending. Qualifiers: Sepsis type: sepsis due to unspecified organism Qualified Code(s): A41.9 - Sepsis, unspecified organism (3) End stage renal disease Current Visit: Yes Status: Chronic Assessment and plan: Patient on dialysis Thursday, , Thursday. Nephrology consult. Repeat labs in a.m. (4) Nausea and vomiting Current Visit: Yes Status: Acute Assessment and plan: Zofran as needed. Encourage PO intake. Qualifiers: Vomiting type: unspecified Vomiting Intractability: intractable Qualified Code(s): R11.2 - Nausea with vomiting, unspecified (5) Diabetes mellitus Current Visit: Yes Status: Chronic Assessment and plan: Diabetic/cardiac diet. Accu-Chek ACHS. Continue home medications. 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 Diabetic/cardiac diet. Qualifiers: Hypertension type: essential hypertension Qualified Code(s): I10 - Essential (primary) hypertension - Time Spent With Patient Total time spent is greater than 50% in coordination of care (as documented) at patient's floor/unit and/or counseling patient:
--- NOTE | 2018-04-07 13:54 | Urology - Consult Note ---
<Ira Mead N - Last Filed: 04/07/18 14:53> Date of Encounter: 04/07/18 Time of Encounter: 13:51 - Assessment and Plan (1) Bladder outlet obstruction Current Visit: Yes Status: Acute Assessment and plan: Patient is a 72 year old female who presents with bladder outlet obstruction. I was able to successfully place an 18F [address] way catheter with immediate return of purulent urine. (2) Pyuria Current Visit: Yes Status: Acute Assessment and plan: Patient is a 72 year old female who presents with pyuria and recurrent UTI. Patient has recent history of emphysematous UTI three weeks ago. Patient's urine has been sent for culture. Patient has been placed on IV Rocephin prophylactically. Urology CN:[id number] Consult date: 04/07/18 Reason for consult Urology: Other (UTI) History of present illness: Patient is a 72 year old female who presents to the emergency department with nausea and vomiting. Patient has chronic, indwelling naylor catheter that is managed by home health care. Patient states naylor has not been changed in over 2 months. On examination in the ED, the patient was found to have malodorous, purulent urine when catheter was removed. After several attempts, the ED staff was unsuccessful in replacing the catheter. The patient was treated for emphysematous UTI 3 weeks ago that cultured positive for MRSA, Proteus, and Enterobacter. One week ago, patient was diagnosed with UTI as an outpatient and has not improved on oral Cipro. Patient denies fever, chills, flank pain, gross hematuria. Past Med Surg Social Fam HX - Past Medical History Medical history: diabetes, hyperlipidemia, hypertension, renal disease, other Additional medical history: UTI, electrolyte imbalances, ESRD, pancytopenia, CDiff 2016, hydronephrosis, pneumonia, urinary retention/obstructive uropathy, diabetic foot ulcer Psychiatric history: anxiety - Past Surgical History Surgical History: appendectomy, cholecystectomy, hysterectomy Additional surgical history: cholecystectomy and appendectomy? - Social History Smoking Status: Never smoker Smokeless Tobacco Status: No Alcohol use: none Drug use: none - Family History Mother Living Status: Hx Family Cardiac Disorders: Yes Father Living Status: Hx Family Cardiac Disorders: Yes Medications and Allergies Metoprolol [Lopressor] 12.5 mg PO BID 03/01/16 [History] Aspirin Enteric Coated [Aspirin EC] 81 mg PO DAILY 08/04/17 [History] Oxygen 2 l NS AD 08/04/17 [History] Ferrous Sulfate 325 mg PO BID 10/28/17 [History] Pravastatin Sodium [Pravachol] 10 mg PO HS 10/28/17 [History] Cholecalciferol (Vitamin D3) [Vitamin D3] 1,000 unit PO DAILY 11/16/17 [History] Insulin Glargine,Hum.rec.anlog [Basaglar Kwikpen U-100] 40 unit SQ HS 11/16/17 [ History] Folic Acid 1 mg PO DAILY 30 Days #30 tab 01/08/18 [Rx] Lactobacillus [Culturelle] 2 each PO DAILY cap.sprink 01/08/18 [Rx] Renal Vitamin [Renal Caps Softgel] 1 mg PO DAILY 30 Days #30 capsule 01/08/18 [ Rx] Omeprazole 20 mg PO DAILY #14 tablet. 03/19/18 [Rx] 3 Allergy/AdvReac Type Severity Reaction Status Date / Time acetaminophen [From Tylenol] Allergy See Verified 12/22/17 19:03 Comments Influenza Virus Vaccines Allergy See Verified 12/22/17 19:03 Comments NSAIDS (Non-Steroidal Allergy See Verified 02/05/18 02:56 Anti-Inflamma Comments Review of Systems - Constitutional fatigue, malaise, weakness, no chills, no fever(s) - EENT Nose, mouth and throat: no dizziness, no headache(s) - Cardiovascular no chest pain, no dyspnea - Respiratory no cough, no dyspnea - Gastrointestinal nausea, vomiting, no abdominal pain, no change in bowel habits - Genitourinary Genitourinary: no difficulty urinating, no dysuria, no flank pain - Musculoskeletal no back pain, no muscle weakness - Integumentary no lesions, no rash - Neurological weakness, no confusion, no syncope - Psychiatric no anxiety, no confusion Exam Initial Vital Signs Temp Pulse Resp BP Pulse Ox 98.1 F 99 18 107/58 98 04/07/18 09:22 04/07/18 09:22 04/07/18 09:22 04/07/18 09:22 04/07/18 09:22 - General physical appearance Present: no distress, no pain, chronically ill - Eyes Present: PERRL, normal ocular movement - ENT Present: no hearing loss, no congestion - Neck Present: no masses, trachea midline - Respiratory Present: normal respiratory effort - Cardiovascular Cardiovascular exam IM: RRR - Abdomen Abdomen: Present: soft, suprapubic tenderness. Absent: guarding, rigid - Genitourinary Present: normal external genitalia (atrophic vaginitis) - Integumentary Present: no rash, no abnormal pigmentation - Neurologic Present: normal coordination. Absent: disoriented Urology Results - Labs 04/07/18 09:36 04/07/18 09:36 Abnormal lab results Hgb 10.0 g/dL (11.5-15.4) L 04/07/18 09:36 Hct 33.7 % (35.3-44.9) L 04/07/18 09:36 MCH 25.4 pg (28.0-33.3) L 04/07/18 09:36 MCHC 29.7 g/dL (31.6-35.5) L 04/07/18 09:36 RDW 15.5 % (11.5-14.5) H 04/07/18 09:36 MPV 8.7 fL (9.4-12.4) L 04/07/18 09:36 Sodium 132 mEq/L (136-145) L 04/07/18 09:36 Chloride 94 mEq/L (98-107) L 04/07/18 09:36 BUN 28 mg/dL (8-23) H 04/07/18 09:36 Creatinine 3.73 mg/dL (0.60-1.20) H 04/07/18 09:36 Est GFR ( Amer) 14 (> 60) L 04/07/18 09:36 Est GFR (Non-Af Amer) 12 (> 60) L 04/07/18 09:36 Glucose 212 mg/dL (70-105) H 04/07/18 09:36 AST 11 Units/L (13-39) L 04/07/18 09:36 ALT 6 Units/L (7-52) L 04/07/18 09:36 Alkaline Phosphatase 132 Units/L (34-104) H 04/07/18 09:36 Albumin 2.8 g/dL (3.5-5.7) L 04/07/18 09:36 Globulin 5.9 g/dL (2.4-3.5) H 04/07/18 09:36 Albumin/Globulin Ratio 0.5 (1.1-2.2) L 04/07/18 09:36 All other labs normal. Procedures:Urology - Catheter Insertion (Urinary) Prophylactic antibiotics given: No Bladder Scan/Ultrasound used before catheterization: Yes (performed in ED <100L PVR per nurse) Estimated amount of urin (mLs): 100 Preparation: Urojet, Lidocaine Jelly Type of catheter inserted: 3 way, Naylor, silastic Catheter [place] Size: 18 Topical anesthesia used: Yes (lidocaine urojet) Results: successfully catheterized-immediate flow (Attempted repositioning x2 with success) Urine Appearance: Cloudy, Purulent, Hematuria Patient tolerated procedure: well, no complications Complications: none Consult Discharge Plan - Plan Referrals: Macario Diallo MD [Primary Care Provider] - <Darien Gutierrez - Last Filed: 04/07/18 17:13> Date of Encounter: 04/07/18 - Assessment and Plan (1) Pyocystis Current Visit: Yes Status: Acute Assessment and plan: Patient appears to have pyelocystitis. Opaque purulent material draining from her bladder. Hopefully with antibiotics and hydration this will clear. If persistent tomorrow may start bladder irrigation. agree with physician assistants assessment. Exam Initial Vital Signs Temp Pulse Resp BP Pulse Ox 98.1 F 99 18 107/58 98 04/07/18 09:22 04/07/18 09:22 04/07/18 09:22 04/07/18 09:22 04/07/18 09:22 Urology Results - Labs 04/07/18 09:36 04/07/18 09:36 Abnormal lab results Hgb 10.0 g/dL (11.5-15.4) L 04/07/18 09:36 Hct 33.7 % (35.3-44.9) L 04/07/18 09:36 MCH 25.4 pg (28.0-33.3) L 04/07/18 09:36 MCHC 29.7 g/dL (31.6-35.5) L 04/07/18 09:36 RDW 15.5 % (11.5-14.5) H 04/07/18 09:36 MPV 8.7 fL (9.4-12.4) L 04/07/18 09:36 Sodium 132 mEq/L (136-145) L 04/07/18 09:36 Chloride 94 mEq/L (98-107) L 04/07/18 09:36 BUN 28 mg/dL (8-23) H 04/07/18 09:36 Creatinine 3.73 mg/dL (0.60-1.20) H 04/07/18 09:36 Est GFR ( Amer) 14 (> 60) L 04/07/18 09:36 Est GFR (Non-Af Amer) 12 (> 60) L 04/07/18 09:36 Glucose 212 mg/dL (70-105) H 04/07/18 09:36 AST 11 Units/L (13-39) L 04/07/18 09:36 ALT 6 Units/L (7-52) L 04/07/18 09:36 Alkaline Phosphatase 132 Units/L (34-104) H 04/07/18 09:36 Albumin 2.8 g/dL (3.5-5.7) L 04/07/18 09:36 Globulin 5.9 g/dL (2.4-3.5) H 04/07/18 09:36 Albumin/Globulin Ratio 0.5 (1.1-2.2) L 04/07/18 09:36 Urine Color Cathy (Yellow) A 04/07/18 15:20 Urine Clarity Turbid (Clear) A 04/07/18 15:20 Urine Protein 100 mg/dL (Neg-Trace) H 04/07/18 15:20 Urine Ketones 15 mg/dL (Negative) H 04/07/18 15:20 Urine Blood Large (Negative) H 04/07/18 15:20 Urine Nitrite Positive (Negative) A 04/07/18 15:20 Ur Leukocyte Esterase Large (Negative) H 04/07/18 15:20 Urine Microscopic WBC TNTC per hpf (0-3) H 04/07/18 15:20 Ur Culture Indicated? YES (NO) A 04/07/18 15:20 All other labs normal.
[2018-04-07 15:40] LABS: Bilirubin,Urine Negative (Negative); Blood,Urine Large (Negative); Clarity,Urine Turbid (Clear); Glucose,Urine (UA) Normal (Normal); Ketones,Urine 15 mg/dL (Negative); Leukocyte Esterase,Urine Large (Negative); Nitrite,Urine Positive (Negative); Protein,Urine 100 mg/dL (Neg-Trace); Specific Gravity,Urine 1.014 (1.010-1.025); Urobilinogen,Urine Normal (Normal)
[2018-04-07] MEDS ORDERED: Ondansetron 4 MG/2 ML VIAL IVP PRN (16:00)
[2018-04-07 16:04] LABS: Color,Urine Amber (Yellow)
[2018-04-07 16:08] LABS: WBC,Urine TNTC per hpf (0-3)
[2018-04-07 16:10] LABS: Bacteria,Urine Present per hpf (None-Few); RBC,Urine Present per hpf (0-3)
[2018-04-07] MEDS ORDERED: Chloraseptic Spray 177 ML BOTTLE MM PRN (20:06)
[2018-04-07] MEDS ORDERED: Insulin DETEMIR 100 UNIT/ML X5UNITS SQ SCH (21:00)
[2018-04-07] MEDS ORDERED: NON-FORMULARY MEDICATION 1 EACH EACH (Insulin Glargine,Hum.Rec.Anlog [Basaglar Kwikpen U-1 SQ SCH (21:00)
[2018-04-08] MEDS ORDERED: Albuterol 2.5 MG/3 ML NEBULIZER IH PRN (02:59)
[2018-04-08] MEDS ORDERED: *HR* Morphine 2 MG/ML SYRINGE IVP PRN (03:48)
[2018-04-08] MEDS ORDERED: Nitroglycerin 0.4 MG TAB.SUBL SL PRN (03:48)
--- NOTE | 2018-04-08 03:51 | Event Note ---
Date of Encounter: 04/08/18 Time of Encounter: 03:49 Called to see patient for c/o chest pain. EKG reviewed -- LVH changes with ST- T depression laterally and inferiorly. This could be due to LVH and/or ischemia. Serial troponins ordered. SL NTG and IV Morphine ordered PRN chest pain.
[2018-04-08 04:11] LABS: Basophils % 0.2 %; Eosinophils # 0.1 K/mcL (0.0-0.6); Eosinophils % 0.8 %; Hematocrit 32.1 % (35.3-44.9); Hemoglobin 9.6 g/dL (11.5-15.4); Immature Granulocytes % 0.3 % (0-4); Lymphocytes # 1.6 K/mcL (0.6-4.6); Mean Corpuscular HGB Conc 29.9 g/dL (31.6-35.5); Mean Corpuscular Hemoglobin 25.5 pg (28.0-33.3); Mean Corpuscular Volume 85.4 fL (83.0-100.0); Mean Platelet Volume 8.5 fL (9.4-12.4); Monocytes # 0.9 K/mcL (0.0-1.3); Monocytes % 9.8 %; Neutrophils # 6.7 K/mcL (1.6-8.9); Platelet Count 334 K/mcL (140-400); Red Blood Count 3.76 M/mcL (3.82-4.97); Red Cell Distribution Width 15.5 % (11.5-14.5); Segmented Neutrophils % 71.9 %
[2018-04-08 04:30] LABS: Calcium 8.5 mg/dL (8.6-10.3); Potassium 5.1 mEq/L (3.5-5.1)
[2018-04-08] MEDS ORDERED: *HR* Heparin 5,000 UNIT/ML VIAL IVP ONE (04:41)
[2018-04-08] MEDS ORDERED: *HR* Heparin 5,000 UNIT/ML VIAL IVP PRN ×2 (04:41)
[2018-04-08] MEDS: Heparin 25,000 UNIT/500 ML D5W 25,000 UNIT/500 ML BAG IVC SCH (05:10)
[2018-04-08 05:16] LABS: Hematocrit 29.3 % (35.3-44.9); Hemoglobin 8.7 g/dL (11.5-15.4); Mean Corpuscular HGB Conc 29.7 g/dL (31.6-35.5); Mean Corpuscular Volume 84.2 fL (83.0-100.0); Mean Platelet Volume 8.9 fL (9.4-12.4); Platelet Count 330 K/mcL (140-400); Red Blood Count 3.48 M/mcL (3.82-4.97); Red Cell Distribution Width 15.5 % (11.5-14.5)
[2018-04-08 05:39] LABS: INR 1.2; Prothrombin Time 13.6 Seconds (9.4-12.1)
[2018-04-08 05:48] LABS: Heparin anti-factor XA UFH 0.04 IU/mL (0.30-0.70)
--- NOTE | 2018-04-08 06:49 | Electrocardiograph Report ---
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
--- NOTE | 2018-04-08 07:14 | Urology Progress Note ---
Date of Encounter: 04/08/18 Time of Encounter: 07:12 - Assessment and Plan (1) Pyocystis Current Visit: Yes Status: Acute Assessment and plan: continue ABX. continue naylor cath drainage. no need to change cath or start irrigation unless cath occluding. will continue to follow. Progress Note Narrative: acute events noted. chest pain and elevated troponin levels. cath draining without issue Objective Initial Vital Signs Temp Pulse Resp BP Pulse Ox 98.1 F 99 18 107/58 98 04/07/18 09:22 04/07/18 09:22 04/07/18 09:22 04/07/18 09:22 04/07/18 09:22 - Additional Exam continued purulence in urine but decreased from yesterday. - Labs 04/08/18 05:06 04/08/18 04:00 Diabetes panel 04/08/18 Range/Units 04:00 Sodium 130 L (136-145) mEq/L Potassium 5.1 (3.5-5.1) mEq/L Chloride 98 (98-107) mEq/L Carbon Dioxide 22 L (23-29) mEq/L BUN 38 H (8-23) mg/dL Creatinine 3.63 H (0.60-1.20) mg/dL Glucose 102 (70-105) mg/dL Calcium 8.5 L (8.6-10.3) mg/dL Calcium panel 04/08/18 Range/Units 04:00 Calcium 8.5 L (8.6-10.3) mg/dL Pituitary panel 04/08/18 Range/Units 04:00 Sodium 130 L (136-145) mEq/L Potassium 5.1 (3.5-5.1) mEq/L Chloride 98 (98-107) mEq/L Carbon Dioxide 22 L (23-29) mEq/L BUN 38 H (8-23) mg/dL Creatinine 3.63 H (0.60-1.20) mg/dL Glucose 102 (70-105) mg/dL Calcium 8.5 L (8.6-10.3) mg/dL Adrenal panel 04/08/18 Range/Units 04:00 Sodium 130 L (136-145) mEq/L Potassium 5.1 (3.5-5.1) mEq/L Chloride 98 (98-107) mEq/L Carbon Dioxide 22 L (23-29) mEq/L BUN 38 H (8-23) mg/dL Creatinine 3.63 H (0.60-1.20) mg/dL Glucose 102 (70-105) mg/dL Calcium 8.5 L (8.6-10.3) mg/dL Consult Discharge Plan - Plan Referrals: Macario Diallo MD [Primary Care Provider] -
--- NOTE | 2018-04-08 08:07 | Cardiology Consult Note ---
<RaffaeleJean-PierreRyanne Chela - Last Filed: 04/08/18 12:31> Date of Encounter: 04/08/18 Time of Encounter: 08:50 Assessment and Plan (1) Pyocystis Current Visit: Yes Status: Acute (2) UTI (urinary tract infection) Current Visit: Yes Status: Acute Qualifiers: Urinary tract infection type: site unspecified Hematuria presence: without hematuria Qualified Code(s): N39.0 - Urinary tract infection, site not specified (3) Diabetes mellitus Current Visit: Yes Status: Chronic Qualifiers: Diabetes mellitus type: type 2 Diabetes mellitus tank terminal gauger insulin use: with intermediate use Diabetes mellitus complication status: with unspecified complications Qualified Code(s): E11.8 - Type 2 diabetes mellitus with unspecified complications; Z79.4 - skilled nursing (current) use of insulin (4) End stage renal disease Current Visit: Yes Status: Chronic (5) Sepsis Current Visit: Yes Status: Suspected Qualifiers: Sepsis type: sepsis due to unspecified organism Qualified Code(s): A41.9 - Sepsis, unspecified organism (6) Elevated troponin Current Visit: Yes Status: Acute Discussion w patient/family: The patient had an elevated troponin with chest pain in the setting of sepsis. This could be a type 2 event or an NSTEMI. She has already been placed on a heparin drip and has SL nitro for CP. As the patient is no longer having chest pain, we will trend troponins q6h until they downtrend. We will also order a TTE for evaluation of patient's cardiac function. First repeat troponin trending down from 0.86 to 0.69. The assessment and plan as outlined above was discussed with the patient and/or family members who expressed understanding and agreement. All questions were answered. Thank you for involving us in the care of your patient. Please call with any questions. History of Present Illness Consult date: 04/08/18 Requesting physician: Jhonathan Lambert Consult reason: NSTEMI Chief complaint: UTI History of present illness: Ms. Lacy is a 72 year old female who presented to the ED yesterday with increasing abdominal pain, nausea and vomiting over the past 3 days. She has a PMHx of DM with CKD on dialysis and is currently diagnosed with sepsis secondary to UTI. She began complaining of chest pain after admission yesterday , describing it as "wheezing," so an EKG and serial troponins were ordered. EKG showed no acute changes but her troponin was elevated to 0.86. She does not have any history of cardiac disease besides HTN and denies CHF or previous [place]. She was seen 3 months ago for chest pain with a mild elevation in troponins post dialysis catheter placement but this was not deemed an NSTEMI. She is currently chest pain free but still feels as though she is wheezing. She also complains of N/V from her UTI and trouble swallowing with throat pain. She states the throat pain started 2 weeks ago, with the abdominal pain following. She reports having dialysis T//S. Past Med Surg Social Fam HX - Past Medical History Medical history: diabetes, hyperlipidemia, hypertension, renal disease, other Additional medical history: UTI, electrolyte imbalances, ESRD, pancytopenia, CDiff 2016, hydronephrosis, pneumonia, urinary retention/obstructive uropathy, diabetic foot ulcer Psychiatric history: anxiety - Past Surgical History Surgical History: appendectomy, cholecystectomy, hysterectomy Additional surgical history: cholecystectomy and appendectomy? - Social History Smoking Status: Never smoker Smokeless Tobacco Status: No Alcohol use: none Drug use: none - Family History Mother Living Status: Hx Family Cardiac Disorders: Yes Father Living Status: Hx Family Cardiac Disorders: Yes Medications and Allergies Metoprolol [Lopressor] 12.5 mg PO BID 03/01/16 [History] Aspirin Enteric Coated [Aspirin EC] 81 mg PO DAILY 08/04/17 [History] Oxygen 2 l NS AD 08/04/17 [History] Ferrous Sulfate 325 mg PO BID 10/28/17 [History] Pravastatin Sodium [Pravachol] 10 mg PO HS 10/28/17 [History] Cholecalciferol (Vitamin D3) [Vitamin D3] 1,000 unit PO DAILY 11/16/17 [History] Insulin Glargine,Hum.rec.anlog [Basaglar Kwikpen U-100] 40 unit SQ HS 11/16/17 [ History] Folic Acid 1 mg PO DAILY 30 Days #30 tab 01/08/18 [Rx] Lactobacillus [Culturelle] 2 each PO DAILY cap.sprink 01/08/18 [Rx] Renal Vitamin [Renal Caps Softgel] 1 mg PO DAILY 30 Days #30 capsule 01/08/18 [ Rx] Omeprazole 20 mg PO DAILY #14 tablet. 03/19/18 [Rx] 3 Allergy/AdvReac Type Severity Reaction Status Date / Time acetaminophen [From Tylenol] Allergy See Verified 12/22/17 19:03 Comments Influenza Virus Vaccines Allergy See Verified 12/22/17 19:03 Comments NSAIDS (Non-Steroidal Allergy See Verified 02/05/18 02:56 Anti-Inflamma Comments All Systems Review: The remainder of the systems were reviewed and are negative - Constitutional Constitutional: no chills, no fever(s), no headache(s) - EENT Nose, mouth and throat: dysphagia, sore throat, throat swelling - Cardiovascular Cardiovascular: chest pain at rest, no chest pain with exertion, no dyspnea at rest, no dyspnea on exertion, no irregular heart rhythm, no leg edema - Respiratory Respiratory: wheezing, no cough, no dyspnea - Gastrointestinal Gastrointestinal: abdominal pain, nausea, no constipation, no diarrhea, no hematochezia, no melena - Genitourinary Genitourinary: dysuria, no hematuria, no nocturia - Integumentary Integumentary: no erythema, no rash - Neurological Neurological: no abnormal speech, no loss of vision, no syncope Physical Examination General: Conversant, No Apparent Distress HEENT: Atraumatic, Normocephaly, Mucus Membranes Moist Neck: No JVD, Normal carotid pulses Cardiac: Normal S1 and S2, No Murmur, Other (tachycardic w/ regular rhythm) Lungs: Other (wheezing B/L w/ L>R) Neuro: Alert and responsive, No focal deficits noted Abdomen: Soft, Other (suprapubic tenderness) Skin: No rashes noted on visualized skin Musculoskeletal: Other (tender to palpation of left upper side of chest) Extremities: No Cyanosis, No Edema, Normal Pulses Results 04/08/18 05:06 04/08/18 04:00 Lab Results 04/08/18 04/08/18 04/08/18 04:00 04:00 04:00 WBC 9.3 Hgb 9.6 L Hct 32.1 L Plt Count 334 INR Sodium 130 L Potassium 5.1 Chloride 98 Carbon Dioxide 22 L BUN 38 H Creatinine 3.63 H Glucose 102 Calcium 8.5 L Troponin I 0.86 H* 04/08/18 04/08/18 05:06 05:06 WBC 10.2 Hgb 8.7 L Hct 29.3 L Plt Count 330 INR 1.2 Sodium Potassium Chloride Carbon Dioxide BUN Creatinine Glucose Calcium Troponin I Consult Discharge Plan - Plan Referrals: Macario Diallo MD [Primary Care Provider] - <Andrew Lawrence - Last Filed: 04/08/18 13:32> Date of Encounter: 04/08/18 - Attending Attestation I examined this patient and my medical decision-making was reviewed with the Resident Physician. I agree with the documented findings, disposition and treatment plan as described except to the extent set forth below. Multiple medical problems, mildly elevated troponin in setting of urosepsis. Medical mgmt. is recommended. Assessment and Plan Discussion w patient/family: The assessment and plan as outlined above was discussed with the patient and/or family members who expressed understanding and agreement. All questions were answered. Thank you for involving us in the care of your patient. Please call with any questions. History of Present Illness History of present illness: Ms. Lacy is a 72 year old female All Systems Review: The remainder of the systems were reviewed and are negative Physical Examination Vital Signs, Last 4 Hours Temp Pulse Resp BP Pulse Ox 04/08/18 11:48 97.8 F 80 19 114/72 100 04/08/18 10:45 97.3 F L 20 102/61 04/08/18 10:20 91/57 04/08/18 10:05 101/57 04/08/18 09:50 108/41 04/08/18 09:35 97.2 F L 20 114/67 Results 04/08/18 05:06 04/08/18 04:00 Lab Results 04/08/18 04/08/18 04/08/18 04:00 04:00 04:00 WBC 9.3 Hgb 9.6 L Hct 32.1 L Plt Count 334 INR Sodium 130 L Potassium 5.1 Chloride 98 Carbon Dioxide 22 L BUN 38 H Creatinine 3.63 H Glucose 102 Calcium 8.5 L Troponin I 0.86 H* 04/08/18 04/08/18 04/08/18 05:06 05:06 11:14 WBC 10.2 Hgb 8.7 L Hct 29.3 L Plt Count 330 INR 1.2 Sodium Potassium Chloride Carbon Dioxide BUN Creatinine Glucose Calcium Troponin I 0.69 H*
[2018-04-08] MEDS ORDERED: 0.9 % Sodium Chloride 250 ML IVC PRN (08:10)
[2018-04-08] MEDS ORDERED: *HR* Heparin 10,000 UNIT/10 ML VIAL IV PRN (08:10)
[2018-04-08] MEDS ORDERED: 0.9 % Sodium Chloride 1,000 ML PRIME SCH (08:15)
[2018-04-08] MEDS: Aspirin Enteric Coated 81 MG Tablet PO SCH (08:42)
[2018-04-08] MEDS: Folic Acid 1 MG TABLET PO SCH (08:43)
[2018-04-08] MEDS: Cholecalciferol (D-3) 1,000 UNIT TABLET PO SCH (08:43)
[2018-04-08] MEDS: Lactobacillus 1 EACH CAP.SPRINK PO SCH (08:43)
[2018-04-08] MEDS: Renal Vitamin 1 CAP CAPSULE PO SCH (08:43)
[2018-04-08] MEDS: Levofloxacin 250 MG/50 ML 250 MG/50 ML BAG IVPB SCH (08:49)
[2018-04-08] MEDS ORDERED: 0.9 % Sodium Chloride 1,000 ML ONE (09:05)
[2018-04-08 13:54] LABS: Acinetobacter baumannii by PCR Not Detected (Not Detect); Candida albicans by PCR Not Detected (Not Detect); Candida glabrata by PCR Not Detected (Not Detect); Candida krusei by PCR Not Detected (Not Detect); Candida parapsilosis by PCR Not Detected (Not Detect); Candida tropicalis by PCR Not Detected (Not Detect); Enterobacter cloacae Cmplx PCR Not Detected (Not Detect); Enterobacteriaceae by PCR Not Detected (Not Detect); Enterococcus by PCR Not Detected (Not Detect); Escherichia coli by PCR Not Detected (Not Detect); Klebsiella oxytoca by PCR Not Detected (Not Detect); Klebsiella pneumoniae by PCR Not Detected (Not Detect); Proteus by PCR Not Detected (Not Detect); Pseudomonas aeruginosa by PCR Not Detected (Not Detect); Serratia marcescens by PCR Not Detected (Not Detect); Staphylococcus aureus by PCR Not Detected (Not Detect); Staphylococcus by PCR Not Detected (Not Detect); Streptococcus agalactiae(B)PCR Not Detected (Not Detect); Streptococcus by PCR Not Detected (Not Detect); Streptococcus pneumoniae PCR Not Detected (Not Detect); Streptococcus pyogenes (A) PCR Not Detected (Not Detect)
--- NOTE | 2018-04-08 14:19 | Nephrology Progress Note ---
Date of Encounter: 04/08/18 Time of Encounter: 09:45 - Assessment and Plan (1) End stage renal disease Current Visit: Yes Status: Chronic End-stage renal disease on hemodialysis Thursday. Patient is compliant with current regimen, however failed HD today due to catheter dysfunction Potassium and BUN are slowly creeping upward, and will require dialysis soon Consult to Interventional radiology for exchange of HD catheter We will continue standard hemodialysis treatments following Avoid nephrotoxic agents (2) Nausea and vomiting Current Visit: Yes Status: Acute Patient went some nausea and vomiting Encourage adequate oral hydration Management per primary team Qualifiers: Vomiting type: unspecified Vomiting Intractability: intractable Qualified Code(s): R11.2 - Nausea with vomiting, unspecified (3) Pyuria Current Visit: Yes Status: Acute Pyuria in setting of chronic indwelling catheter Presumed UTI given past infection Management per primary team and urology (4) Hemodialysis catheter dysfunction Current Visit: Yes Status: Acute Dysfunction of hemodialysis catheter Consult to Interventional radiology for exchange Qualifiers: Encounter type: initial encounter Qualified Code(s): T82.41XA - Breakdown ( mechanical) of vascular dialysis catheter, initial encounter Subjective Principal diagnosis: UTI Interval history: The patient is resting in bed at hemodialysis at time of examination. She says that overnight she experienced some chest pain, and she had worsening throat pain. She has had some shortness of breath associated with this. Cardiology has been consulted. In addition, she has developed some dysfunction with her dialysis catheter. Objective - Vital Signs Vital signs: Vital Signs Temp Pulse Resp BP Pulse Ox 04/08/18 11:48 97.8 F 80 19 114/72 100 04/08/18 10:45 97.3 F L 20 102/61 04/08/18 10:20 91/57 04/08/18 10:05 101/57 04/08/18 09:50 108/41 04/08/18 09:35 97.2 F L 20 114/67 04/08/18 09:10 100 04/08/18 08:04 98.0 F 84 19 117/74 100 04/08/18 04:02 98.8 F 101 16 107/63 100 04/08/18 00:05 98.1 F 84 16 91/55 99 04/07/18 20:15 98.0 F 89 16 107/64 100 09/05/18 16:08 97.9 F 82 20 111/67 99 Intake and Output 04/07/18 04/08/18 04/08/18 23:59 07:59 15:59 Intake Total 700 / 700 Output Total 627 / 627 Balance 73 / 73 Intake: IV Fluids 100 / 100 Heparin 25,000 UNIT/500 ML D5W 100 / 100 25,000 unit In 500 ml @ 12 UNIT /KG/HR 13.2 mls/hr IVC .Q24H VIKA Rx#:[id number] Oral 0 / 0 Intake, Rinseback and Flushes 600 / 600 Output: Urine 0 / 0 Total Dialysis (HD) Output 127 / 127 Catheter 500 / 500 Other: Stool Size Small Smear Stool Consistency loose loose Stool Color Brown # Bowel Movement Diapers 1 1 Weight 55 kg Blood Glucose* 255 96 104 Hemodialysis Net Fluid Removed 0 (mL) Patient Weight 04/08/18 23:59 Weight 55 kg - General Appearance Exam: Gen: Vitals noted. No acute distress. Frail-appearing elderly woman HEENT: Normocephalic, atraumatic Neck: Supple. No adenopathy. Cardiac: RRR, no murmur, +S1/S2 Pulmonary: Relatively clear to auscultation bilaterally with occasional wheezes dispersed throughout Abdomen: soft, very mild tenderness to palpation of the suprapubic region, no guarding Extremities: no BLE edema, nontender calf, no cyanosis or clubbing Dialysis access: Left subclavian tunneled catheter with no erythema surrounding : New Madden catheter in place with bloody, purulent appearing urine in collection tube Neuro: moves all extremities, no focal deficits. A&Ox3 - Lab 04/08/18 05:06 04/08/18 04:00 Most recent lab results Calcium 8.5 mg/dL (8.6-10.3) L 04/08/18 04:00 Consult Discharge Plan - Plan Referrals: Macario Diallo MD [Primary Care Provider] -
[2018-04-08] MEDS ORDERED: *HR* Alteplase (Cathflo) 2 MG VIAL IVP ONE (14:20)
[2018-04-08] MEDS ORDERED: Heparin 1,000 UNITS/500 mL 500 ML ONE (14:54)
[2018-04-08] MEDS ORDERED: *HR* Heparin 5,000 UNIT/ML VIAL ONE (14:59)
[2018-04-08] MEDS ORDERED: Piperacillin/Tazobactam 3.375 GM in 0.9 % Sodium Chloride Mini Bag 100 ML IVPB ONE (15:00)
--- NOTE | 2018-04-08 17:21 | Internal Med Progress Note ---
Hospitalist Progress Note - Encounter Date of Encounter: 04/08/18 Time of Encounter: 17:17 - Subjective Interval History: Patient seen and evaluated at bedside, she report doing well, but still reports suprapubic pain. Denies nausea, vomiting, fever,chills. - Exam Vitals: Temp Pulse Resp BP Pulse Ox 98.2 F 99 18 117/73 99 04/08/18 16:17 04/08/18 16:17 04/08/18 16:17 04/08/18 16:17 04/08/18 16:17 Exam: General: Patient is alert, oriented, no acute distress, speaks in full sentences Head: atraumatic, normocephalic, Respiratory: Good respiratory effort. Clear breath sounds bilaterally, no wheezing no crackles. Cardiovascular: Normal s1 and s2 No clicks, rubs, gallops, or murmors. Abdomen: Bowel sounds present normoactive x-4 quadrants. Abdomen is soft, nondistended. Tenderness to palpation in the suprapubic area. Musculoskeletal: Intentional tremor in the upper extremity bilateral, no edema, no calf tenderness. Atrophy of the lower extremity bilaterally, a strength one out of 5 in the lower extremities. Left upper chest permacath. Neuro: Alert and oriented x4. Cranial nerves 2-12 is intact. Psych: Patient's affect is normal - Assessment and Plan (1) Bacteremia Current Visit: Yes Status: Acute Assessment and Plan: Gram-negative patrick growing in blood cultures. Plan: - Continue dual antipseudomonal therapy with levofloxacin, and zocyn. Patient was recently treated with antibiotics for UTI. - Follow blood culture sensitivity to adjust antibiotic coverage - Will consider ID consult (2) Sepsis Current Visit: Yes Status: Suspected Assessment and Plan: Gram negative rods on U/C. Plan: - As #1 (3) UTI (urinary tract infection) Current Visit: Yes Status: Acute Assessment and Plan: Patient with a Madden catheter with very cloudy urine. Plan: - On appropriate antibiotics (4) HTN (hypertension) Current Visit: No Status: Chronic Assessment and Plan: Patient with a History of HTN. Plan: - Started on low dose metoprolol until BP more stable as patient presenting with sepsis (5) Diabetes mellitus Current Visit: Yes Status: Chronic Assessment and Plan: Plan: - Will start patient on sliding scale - Decrease levemir to 15 units HS, patient with poor PO intake. (6) End stage renal disease Current Visit: Yes Status: Chronic Assessment and Plan: Plan: - Renal replacement therapy as per nephrology recommendations (7) Elevated troponin Current Visit: Yes Status: Acute Assessment and Plan: Plan: - On a heparin drip for possible NSTEMI - F/u trop trends - Cardiology consulted will follow recommendations DVT Prophylaxis: On a heparin drip for possible NSTEMI - Time Spent with Patient Total time spent is greater than 50% in coordination of care (as documented) at patient's floor/unit and/or counseling patient: Greater than 35 minutes Plan of Care Discussed with: patient Internal Medicine: Result - Labs CBC & Chem 7: 04/08/18 05:06 04/08/18 04:00 Labs: Short CBC 04/08/18 04/08/18 Range/Units 04:00 05:06 WBC 9.3 10.2 (4.3-11.1) K/mcL Hgb 9.6 L 8.7 L (11.5-15.4) g/dL Hct 32.1 L 29.3 L (35.3-44.9) % Plt Count 334 330 (140-400) K/mcL Neutrophils # 6.7 (1.6-8.9) K/mcL BMP 04/08/18 04:00 Sodium 130 L Potassium 5.1 Chloride 98 Carbon Dioxide 22 L BUN 38 H Creatinine 3.63 H Glucose 102 Calcium 8.5 L Cardiac Enzymes 04/08/18 04/08/18 Range/Units 04:00 11:14 Troponin I 0.86 H* 0.69 H* (< 0.04) ng/mL - ABG Interpretation ABG results: PT/INR, D-dimer PT 13.6 Seconds (9.4-12.1) H 04/08/18 05:06 - Impressions Impressions Chest X-Ray 04/08/18 02:59 IMPRESSION: Pulmonary edema. D/ / Marcelo Lima MD / Marcelo Lima MD Interpreting Provider: Marcelo Lima MD Consult Discharge Plan - Plan Referrals: Macario Diallo MD [Primary Care Provider] - (2) Sepsis Qualifiers: Sepsis type: sepsis due to unspecified organism Qualified Code(s): A41.9 - Sepsis, unspecified organism (3) UTI (urinary tract infection) Qualifiers: Urinary tract infection type: site unspecified Hematuria presence: without hematuria Qualified Code(s): N39.0 - Urinary tract infection, site not specified (4) HTN (hypertension) Qualifiers: Hypertension type: essential hypertension Qualified Code(s): I10 - Essential (primary) hypertension (5) Diabetes mellitus Qualifiers: Diabetes mellitus type: type 2 Diabetes mellitus terminal carman insulin use: with nursing home use Diabetes mellitus complication status: with unspecified complications Qualified Code(s): E11.8 - Type 2 diabetes mellitus with unspecified complications; Z79.4 - intermediate manager (current) use of insulin
[2018-04-08] MEDS ORDERED: Dextrose Gel 15 GM/37.5 ML TUBE PO PRN (17:30)
[2018-04-08] MEDS: Insulin DETEMIR 100 UNIT/ML X5UNITS SQ SCH (21:12)
[2018-04-09 06:31] LABS: Basophils % 0.3 %; Eosinophils # 0.1 K/mcL (0.0-0.6); Hematocrit 24.7 % (35.3-44.9); Hemoglobin 7.3 g/dL (11.5-15.4); Immature Granulocytes % 0.3 % (0-4); Lymphocytes # 1.7 K/mcL (0.6-4.6); Lymphocytes % 27.8 %; Mean Corpuscular HGB Conc 29.6 g/dL (31.6-35.5); Mean Corpuscular Hemoglobin 24.8 pg (28.0-33.3); Monocytes # 0.5 K/mcL (0.0-1.3); Monocytes % 8.7 %; Neutrophils # 3.8 K/mcL (1.6-8.9); Platelet Count 273 K/mcL (140-400); Red Blood Count 2.94 M/mcL (3.82-4.97); Red Cell Distribution Width 15.3 % (11.5-14.5); Segmented Neutrophils % 61.9 %
[2018-04-09 06:54] LABS: Calcium 7.8 mg/dL (8.6-10.3); Magnesium 1.5 mg/dL (1.6-2.6); Potassium 5.1 mEq/L (3.5-5.1)
[2018-04-09] MEDS ORDERED: 0.9 % Sodium Chloride 1,000 ML ONE (07:22)
[2018-04-09] MEDS ORDERED: 0.9 % Sodium Chloride 250 ML IVC PRN (07:39)
[2018-04-09] MEDS ORDERED: *HR* Heparin 10,000 UNIT/10 ML VIAL IV PRN (07:39)
[2018-04-09] MEDS ORDERED: 0.9 % Sodium Chloride 1,000 ML PRIME SCH (07:45)
--- NOTE | 2018-04-09 08:04 | Cardiology Progress Note ---
<RaffaeleJean-PierreRyanne R - Last Filed: 04/09/18 13:30> Date of Encounter: 04/09/18 Time of Encounter: 09:13 Assessment and Plan (1) Pyocystis Current Visit: Yes Status: Acute (2) UTI (urinary tract infection) Current Visit: Yes Status: Acute Qualifiers: Urinary tract infection type: site unspecified Hematuria presence: without hematuria Qualified Code(s): N39.0 - Urinary tract infection, site not specified (3) Diabetes mellitus Current Visit: Yes Status: Chronic Qualifiers: Diabetes mellitus type: type 2 Diabetes mellitus usp insulin use: with superintendent container terminal use Diabetes mellitus complication status: with unspecified complications Qualified Code(s): E11.8 - Type 2 diabetes mellitus with unspecified complications; Z79.4 - FDC (current) use of insulin (4) End stage renal disease Current Visit: Yes Status: Chronic (5) Sepsis Current Visit: Yes Status: Suspected Qualifiers: Sepsis type: sepsis due to unspecified organism Qualified Code(s): A41.9 - Sepsis, unspecified organism (6) Elevated troponin Current Visit: Yes Status: Acute (7) Cardiomyopathy Current Visit: Yes Status: Acute Qualifiers: Cardiomyopathy type: unspecified Qualified Code(s): I42.9 - Cardiomyopathy , unspecified Discussion w patient/family: 04-08-28: The patient had an elevated troponin with chest pain in the setting of sepsis. This could be a type 2 event or an NSTEMI. She has already been placed on a heparin drip and has SL nitro for CP. As the patient is no longer having chest pain, we will trend troponins q6h until they downtrend. We will also order a TTE for evaluation of patient's cardiac function. First repeat troponin trending down from 0.86 to 0.69. 04-09-18: Pts third troponin increased from 0.69 to 0.80. Pt is on a heparin drip and has no complaints of chest pain. TTE showed decreased EF of 35-40% with global and segmental LV systolic dysfunction and moderate RV hypokinesis. She has no history of cardiomyopathy. She had an echo in December 2017 which showed EF of 55% and normal LV function with indeterminate diastolic dysfunction. Initial blood culture has come back positive with Gm- rods. The troponin elevation is likely due to demand ischemia from the patient's sepsis and cardiomyopathy but could be due to an ischemic process. Consider ischemic workup once patient is stable, either inpatient or outpatient. The assessment and plan as outlined above was discussed with the patient and/or family members who expressed understanding and agreement. All questions were answered. Thank you for involving us in the care of your patient. Please call with any questions. Subjective Principal diagnosis: UTI Interval history: Pt has had no events overnight. Still complains of wheezing and abdominal pain. Having trouble swallowing and throat pain. Objective General: Conversant, No Apparent Distress HEENT: Atraumatic, Normocephaly, Mucus Membranes Moist Neck: No JVD, Normal carotid pulses Cardiac: Reg Rate and Rhythm, Normal S1 and S2, No Murmur Lungs: Other (wheezing heard throughout) Neuro: Alert and responsive, No focal deficits noted Abdomen: Soft, Other (suprapubic tenderness) Skin: No rashes noted on visualized skin Musculoskeletal: No Chest Wall Tenderness Extremities: No Cyanosis, No Edema, Normal Pulses Results 04/09/18 06:17 04/09/18 06:17 Lab Results 04/08/18 04/08/18 04/09/18 11:14 16:41 06:17 WBC 6.1 Hgb 7.3 L Hct 24.7 L Plt Count 273 Sodium Potassium Chloride Carbon Dioxide BUN Creatinine Glucose Calcium Magnesium Troponin I 0.69 H* 0.80 H* 04/09/18 06:17 WBC Hgb Hct Plt Count Sodium 130 L Potassium 5.1 Chloride 100 Carbon Dioxide 22 L BUN 39 H Creatinine 3.91 H Glucose 200 H Calcium 7.8 L Magnesium 1.5 L Troponin I Consult Discharge Plan - Plan Referrals: Macario Diallo MD [Primary Care Provider] - <Andrew Lawrence - Last Filed: 04/09/18 14:35> Date of Encounter: 04/09/18 Assessment and Plan Discussion w patient/family: The assessment and plan as outlined above was discussed with the patient and/or family members who expressed understanding and agreement. All questions were answered. Thank you for involving us in the care of your patient. Please call with any questions. Objective Vital Signs, Last 4 Hours Temp Pulse Resp BP 04/09/18 14:19 97.4 F L 83 16 117/71 04/09/18 12:50 97.5 F L 18 121/64 04/09/18 12:30 105/60 04/09/18 12:15 102/59 Results 04/09/18 06:17 04/09/18 06:17
--- NOTE | 2018-04-09 09:14 | Nephrology Progress Note ---
Date of Encounter: 04/09/18 Time of Encounter: 09:55 - Assessment and Plan (1) End stage renal disease Current Visit: Yes Status: Chronic End-stage renal disease on hemodialysis Thursday. Patient is compliant with current regimen, however failed full HD yesterday due to catheter dysfunction Potassium and BUN are slowly creeping upward, and will require dialysis soon IR exchanged HD catheter yesterday, patient should be clear for HD today or tomorrow We will continue standard hemodialysis treatments following Avoid nephrotoxic agents (2) Nausea and vomiting Current Visit: Yes Status: Acute Patient with some nausea and vomiting Encourage adequate oral hydration Management per primary team Qualifiers: Vomiting type: unspecified Vomiting Intractability: intractable Qualified Code(s): R11.2 - Nausea with vomiting, unspecified (3) Pyuria Current Visit: Yes Status: Acute Pyuria in setting of chronic indwelling catheter Presumed UTI given past infection, no fgrowth in culture Management per primary team and urology (4) Anemia Current Visit: Yes Status: Acute Acute on chronic anemia Patient on heparin due to suspected NSTEMI Hemaglobin continues to drop Will receive blood with hemodialysis today Qualifiers: Anemia type: due to chronic kidney disease Chronic kidney disease stage: on chronic dialysis Qualified Code(s): N18.6 - End stage renal disease; D63.1 - Anemia in chronic kidney disease; Z99.2 - Dependence on renal dialysis (5) Hemodialysis catheter dysfunction Current Visit: Yes Status: Acute Qualifiers: Encounter type: initial encounter Qualified Code(s): T82.41XA - Breakdown ( mechanical) of vascular dialysis catheter, initial encounter (6) Odynophagia Current Visit: Yes Status: Acute Patient has been on antibiotics for some time Although theres no discreet evidence of thrush/lexus esophagitis, trial diflucan may be appropriate if agreed upon by primary team Subjective Principal diagnosis: UTI Interval history: The patient is resting in bed at hemodialysis at time of examination. Continues to have some throat pains. Otherwise no acute complaints. Objective - Vital Signs Vital signs: Vital Signs Temp Pulse Resp BP Pulse Ox 04/09/18 08:22 97.8 F 82 19 107/70 87 04/09/18 03:49 97.8 F 89 17 101/68 100 04/09/18 01:09 97.7 F 97 17 110/68 100 04/08/18 19:15 97.7 F 88 16 104/62 98 04/08/18 16:17 98.2 F 99 18 117/73 99 04/08/18 11:48 97.8 F 80 19 114/72 100 04/08/18 10:45 97.3 F L 20 102/61 04/08/18 10:20 91/57 04/08/18 10:05 101/57 04/08/18 09:50 108/41 04/08/18 09:35 97.2 F L 20 114/67 Intake and Output 04/08/18 04/09/18 04/09/18 23:59 07:59 15:59 Intake Total Output Total 500 / 500 Balance -491 / -491 Intake: IV Fluids Heparin 25,000 UNIT/500 ML D5W 25,000 unit In 500 ml @ 12 UNIT /KG/HR 13.2 mls/hr IVC .Q24H VIKA Rx#:[id number] Output: Catheter 500 / 500 Other: Stool Size Small Stool Consistency loose Stool Color Brown Blood Glucose* 213 214 - General Appearance Exam: Gen: Vitals noted. No acute distress. Frail-appearing elderly woman HEENT: Normocephalic, atraumatic Neck: Supple. No adenopathy. Cardiac: RRR, no murmur, +S1/S2 Pulmonary: Relatively clear to auscultation bilaterally with occasional wheezes dispersed throughout Abdomen: soft, very mild tenderness to palpation of the suprapubic region, no guarding Extremities: no BLE edema, nontender calf, no cyanosis or clubbing Dialysis access: Left subclavian tunneled catheter with no erythema surrounding : New Madden catheter in place with bloody, purulent appearing urine in collection tube Neuro: moves all extremities, no focal deficits. A&Ox3 - Lab 04/09/18 06:17 04/09/18 06:17 Most recent lab results Calcium 7.8 mg/dL (8.6-10.3) L 04/09/18 06:17 Magnesium 1.5 mg/dL (1.6-2.6) L 04/09/18 06:17 Consult Discharge Plan - Plan Referrals: Macario Diallo MD [Primary Care Provider] -
[2018-04-09] MEDS: Insulin LISPRO 300 UNITS/3 ML VIAL SQ SCH ×3 (11:44→18:34)
[2018-04-09] MEDS: Piperacillin/Tazobactam 3.375 GM in 0.9 % Sodium Chloride Mini Bag 100 ML IVPB SCH ×2 (11:44→18:33)
[2018-04-09] MEDS: Levofloxacin 250 MG/50 ML 250 MG/50 ML BAG IVPB SCH (12:57)
--- NOTE | 2018-04-09 13:50 | Internal Med Progress Note ---
Hospitalist Progress Note - Encounter Date of Encounter: 04/09/18 Time of Encounter: 13:46 - Subjective Interval History: Patient seen and evaluated at bedside, reports having GERD-like symptoms, postnasal drip. Denies productive cough, shortness of breath, fever, chills, nausea, vomiting. Denies seeing blood in her stool. - Exam Vitals: Temp Pulse Resp BP Pulse Ox 97.5 F L 82 18 121/64 87 04/09/18 12:50 04/09/18 08:22 04/09/18 12:50 04/09/18 12:50 04/09/18 08:22 Exam: General: Patient is alert, oriented, no acute distress Respiratory: Clear breath sounds bilaterally, no wheezing no crackles. Cardiovascular: Normal s1 and s2 No rubs, gallops, or murmors. Abdomen: Bowel sounds present normoactive x-4 quadrants. Abdomen is soft, nondistended. still have mild Tenderness to palpation in the suprapubic area. Musculoskeletal: Intentional tremor in the upper extremity bilateral, no edema, no calf tenderness. Atrophy of the lower extremity bilaterally, a strength one out of 5 in the lower extremities. Left upper chest permacath. Neuro: Alert and oriented x4. Cranial nerves 2-12 is intact. Psych: Patient's affect is normal - Assessment and Plan (1) Bacteremia Current Visit: Yes Status: Acute Assessment and Plan: Gram negative patrick growing in blood culture. Patient Hemodynamically stable. Plan: - F/U sensitivity for antibiotics adjustment - D/C levofloxacin and continue Pipercillin/Tazobactam - ID consulted for appropriate length of antibiotics coverage (2) UTI (urinary tract infection) Current Visit: Yes Status: Acute Assessment and Plan: Plan: - Patient with a Chronic indwelling catheter Urology consulted recommended to continue naylor cath drainage. no need to change cath or start irrigation unless cath occluding. - Urine culture: Final report - On pipperacillin/tazobactam (3) HTN (hypertension) Current Visit: No Status: Chronic Assessment and Plan: Blood pressure well controlled. Plan: - Continue low dose Metoprolol (4) Diabetes mellitus Current Visit: Yes Status: Chronic Assessment and Plan: Blood sugar well controlled Plan: - Continue Levemir 15 units HS and Lispro low dose sliding scale - Diabetic diet (5) End stage renal disease Current Visit: Yes Status: Chronic Assessment and Plan: Plan: - Continue renal replacement therapy as per Nephrology team (6) Elevated troponin Current Visit: Yes Status: Acute Assessment and Plan: With ST depression on EKG. Possible due to NSTEMI Plan: - Discussed with thrill performer Dr. Lawrence about discontinuing the heparin drip due to a drop in H&H. He agrees on DC the drip. - NO plavix until GI bleed has been ruled out - Continue aspirin and Beta raul - No COLLETTE inhitor as patient BP in the low side, will start low dose lisinopril when BP more stable. (7) Anemia Current Visit: No Status: Acute Assessment and Plan: Dropped in H&H in the past 24 hours. R/O GI bleed. patient had a large BM last night and denies seeing blood in her stool, no blood in the stool has been reported by the nurses Plan: - F/U FOBT - DC heparin drip - Patient being transfuse 1 unit of PRBCs - F/U post transfusio CBC - Serial CBC Q6HRs (8) Anemia Current Visit: No Status: Chronic (9) Hypomagnesemia Current Visit: No Status: Acute Assessment and Plan: Plan: - Patient on electrolyte replacement DVT Prophylaxis: Mechanical DVT prophylaxis - No chemical DVT prophylaxis until GI bleeding is ruled out. - Time Spent with Patient Total time spent is greater than 50% in coordination of care (as documented) at patient's floor/unit and/or counseling patient: Greater than 35 minutes Plan of Care Discussed with: patient (and the nurse.) Internal Medicine: Result - Labs CBC & Chem 7: 04/09/18 06:17 04/09/18 06:17 - ABG Interpretation ABG results: PT/INR, D-dimer PT 13.6 Seconds (9.4-12.1) H 04/08/18 05:06 Consult Discharge Plan - Plan Referrals: Macario Diallo MD [Primary Care Provider] - (2) UTI (urinary tract infection) Qualifiers: Urinary tract infection type: site unspecified Hematuria presence: without hematuria Qualified Code(s): N39.0 - Urinary tract infection, site not specified (3) HTN (hypertension) Qualifiers: Hypertension type: essential hypertension Qualified Code(s): I10 - Essential (primary) hypertension (4) Diabetes mellitus Qualifiers: Diabetes mellitus type: type 2 Diabetes mellitus vermin exterminator insulin use: with vermin exterminator use Diabetes mellitus complication status: with unspecified complications Qualified Code(s): E11.8 - Type 2 diabetes mellitus with unspecified complications; Z79.4 - [facility] (current) use of insulin (7) Anemia Qualifiers: Anemia type: due to chronic kidney disease Chronic kidney disease stage: on chronic dialysis Qualified Code(s): N18.6 - End stage renal disease; D63.1 - Anemia in chronic kidney disease; Z99.2 - Dependence on renal dialysis (8) Anemia Qualifiers: Anemia type: due to chronic kidney disease Chronic kidney disease stage: stage 5, not on chronic dialysis Qualified Code(s): N18.5 - Chronic kidney disease, stage 5; D63.1 - Anemia in chronic kidney disease; D63.1 - Anemia in chronic kidney disease
--- NOTE | 2018-04-09 14:30 | Infectious Disease Consult ---
Date of Encounter: 04/09/18 Time of Encounter: 14:30 Assessment and Plan (1) Gram-negative bacteremia Status: Acute Assessment and plan: It is 1 out of 2 sets. Was not picked up on blood PCR only cultures What I called down to lab it looks like it is growing on the anaerobic medium Likely contaminant but not sure yet; dialysis catheter in the left chest has been changed. Does not appear infected there is no erythema it is not tracking there is no purulence. Currently patient is on Zosyn Agree with current treatment Await cultures to finalize and hopefully we can de-escalate treatment (2) Abdominal pain Status: Acute Assessment and plan: Patient has nausea and epigastric abdominal pain with some dysphagia Could this be esophagitis versus pancreatitis versus gastritis versus cholecystitis LFTs not remarkably elevated Recommend checking lipase and amylase Might consider CT abdomen pelvis but will defer to the hospitalist team Qualifiers: Abdominal location: epigastric Qualified Code(s): R10.13 - Epigastric pain (3) Diabetes mellitus Status: Chronic Qualifiers: Diabetes mellitus type: type 2 Diabetes mellitus halfway insulin use: with halfway use Diabetes mellitus complication status: with unspecified complications Qualified Code(s): E11.8 - Type 2 diabetes mellitus with unspecified complications; Z79.4 - intermediate project manager (current) use of insulin (4) Nausea & vomiting Status: Resolved Qualifiers: Vomiting type: unspecified Vomiting Intractability: unspecified Qualified Code(s): R11.2 - Nausea with vomiting, unspecified Infectious Disease HPI - Data of Consult Patient: new to practice Consult date: 04/09/18 Requesting Physician: Henry Douglas MD Primary Care Provider: Macario Diallo MD - Consult Narrative Reason for consult: sepsis and GNR bacteremia History of present illness: Ms. Lacy is a 72 year old female Patient is a 72-year-old woman who presented to [place] on 04/07/2018 from home with nausea and vomiting, we are consulted on 04/09/2018. Patient is a 72-year-old woman with past medical history mentioned below including diabetes mellitus type 2 with end-stage renal disease on hemodialysis , hypertension, hyperlipidemia and GERD who presented to the hospital with 2 weeks history of intermittent nausea vomiting, sore throat and nonproductive cough. Patient denied any abdominal pain. No diarrhea. No hematemesis or melena. Patient denies any constipation or bloating. Patient denied any chest pain or shortness of breath or dyspnea on exertion. Since admission, patient has been afebrile, has been intermittently tachycardic , no tachypnea and hemodynamically stable. Presenting labs reveal a WBC of 11.1 with normal differential no bands. BUN of 28 creatinine of 3.73. Patient noted to have a troponin leak with a troponin of 0.8. Patients LFTs revealed an AST of 11 ALT of 6 and alkaline phosphatase of 132. A urinalysis was obtained and urine was sent for culture. Keep in mind patient has an indwelling Madden catheter, was recently treated with Cipro for purulence coming out of the catheter. . Blood cultures obtained on 04/07/18 and 1 out of 2 cultures are positive for gram-negative rods blood PCR did not moss picker and organism which makes Escherichia coli, Haemophilus influenza, Klebsiella, Proteus, Serratia, Pseudomonas and Enterobacter unlikely. I did call lab and asked them about the culture and apparently is only growing and anaerobic medium and is not growing on the aerobic medium. So there is a big chance that this is a anaerobic gram-negative rods which is probably contaminant. Patient was started on empiric Zosyn. At its dose adjusted to every 12 hours based on patients intermittent hemodialysis. CC: Henry Douglas MD Past Med Surg Social Fam HX - Past Medical History Medical history: diabetes, hyperlipidemia, hypertension, renal disease, other Additional medical history: UTI, electrolyte imbalances, ESRD, pancytopenia, CDiff 2016, hydronephrosis, pneumonia, urinary retention/obstructive uropathy, diabetic foot ulcer Psychiatric history: anxiety - Past Surgical History Surgical History: appendectomy, cholecystectomy, hysterectomy Additional surgical history: cholecystectomy and appendectomy? - Social History Smoking Status: Never smoker Smokeless Tobacco Status: No Alcohol use: none Drug use: none - Family History Mother Living Status: Hx Family Cardiac Disorders: Yes Father Living Status: Hx Family Cardiac Disorders: Yes Infectious Disease-CN:Meds Metoprolol [Lopressor] 12.5 mg PO BID 03/01/16 [History] Aspirin Enteric Coated [Aspirin EC] 81 mg PO DAILY 08/04/17 [History] Oxygen 2 l NS AD 08/04/17 [History] Ferrous Sulfate 325 mg PO BID 10/28/17 [History] Pravastatin Sodium [Pravachol] 10 mg PO HS 10/28/17 [History] Cholecalciferol (Vitamin D3) [Vitamin D3] 1,000 unit PO DAILY 11/16/17 [History] Insulin Glargine,Hum.rec.anlog [Basaglar [place] U-100] 40 unit SQ HS 11/16/17 [ History] Folic Acid 1 mg PO DAILY 30 Days #30 tab 01/08/18 [Rx] Lactobacillus [Culturelle] 2 each PO DAILY cap.sprink 01/08/18 [Rx] Renal Vitamin [Renal Caps Softgel] 1 mg PO DAILY 30 Days #30 capsule 01/08/18 [ Rx] Omeprazole 20 mg PO DAILY #14 tablet. 03/19/18 [Rx] 3 Allergy/AdvReac Type Severity Reaction Status Date / Time acetaminophen [From Tylenol] Allergy See Verified 12/22/17 19:03 Comments Influenza Virus Vaccines Allergy See Verified 12/22/17 19:03 Comments NSAIDS (Non-Steroidal Allergy See Verified 02/05/18 02:56 Anti-Inflamma Comments Review of systems: 10 point review of systems done, negative other for what is mentioned in history of present illness. Exam - Constitutional Vitals: Temp Pulse Resp BP Pulse Ox 97.4 F L 83 16 117/71 87 04/09/18 14:04/09/18 14:04/09/18 14:04/09/18 14:04/09/18 08:22 General appearance: no acute distress, no febrile - Head Head exam: Present: atraumatic, normocephalic - Eye Eye exam: Present: EOMI, PERRL - ENT ENT exam: Present: mucous membranes moist Additional comments: No oral lesions - Neck Neck exam: Present: full ROM. Absent: meningismus - Respiratory Additional comments: Air sounds audible both lung watkins. I did not appreciate any wheezing or rhonchi. Chest expanding symmetrically. Poor inspiratory effort. - Cardiovascular Cardiovascular exam: Present: RRR, +S1, +S2 - GI/Abdominal GI/Abdominal exam: Present: normal bowel sounds, soft. Absent: tenderness Additional comments: She does have some epigastric tenderness. - Extremities Exam Extremities exam: Present: normal inspection. Absent: joint swelling - Neurological Exam Neurological exam: Present: alert, oriented X3 - Psychiatric Psychiatric exam: Present: normal affect, normal mood - Skin Skin exam: Present: normal color. Absent: rash Infectious Disease CN: Results - Labs CBC & Chem 7: 04/09/18 18:19 04/09/18 06:17 Consult Discharge Plan - Plan Referrals: Macario Diallo MD [Primary Care Provider] -
[2018-04-09] MEDS: Cholecalciferol (D-3) 1,000 UNIT TABLET PO SCH (14:41)
[2018-04-09] MEDS: Folic Acid 1 MG TABLET PO SCH (14:41)
[2018-04-09] MEDS: Renal Vitamin 1 CAP CAPSULE PO SCH (14:41)
[2018-04-09] MEDS: Lactobacillus 1 EACH CAP.SPRINK PO SCH (14:41)
[2018-04-09] MEDS: Aspirin Enteric Coated 81 MG Tablet PO SCH (14:41)
[2018-04-09] MEDS: Magnesium Oxide 400 MG TABLET PO SCH ×2 (14:41→21:33)
[2018-04-09 18:38] LABS: Hematocrit 30.6 % (35.3-44.9)
[2018-04-09 18:39] LABS: Hemoglobin 9.4 g/dL (11.5-15.4)
[2018-04-09] MEDS: Insulin DETEMIR 100 UNIT/ML X5UNITS SQ SCH (21:31)
[2018-04-09 22:02] LABS: Hematocrit 28.3 % (35.3-44.9); Hemoglobin 8.7 g/dL (11.5-15.4); Mean Corpuscular HGB Conc 30.7 g/dL (31.6-35.5); Mean Corpuscular Hemoglobin 26.1 pg (28.0-33.3); Mean Platelet Volume 8.5 fL (9.4-12.4); Platelet Count 258 K/mcL (140-400); Red Blood Count 3.33 M/mcL (3.82-4.97); Red Cell Distribution Width 14.9 % (11.5-14.5)
[2018-04-10] MEDS: Piperacillin/Tazobactam 3.375 GM in 0.9 % Sodium Chloride Mini Bag 100 ML IVPB SCH ×2 (06:25→18:28)
[2018-04-10 06:30] LABS: Basophils % 0.3 %; Eosinophils # 0.1 K/mcL (0.0-0.6); Hematocrit 27.8 % (35.3-44.9); Hemoglobin 8.3 g/dL (11.5-15.4); Immature Granulocytes % 0.3 % (0-4); Lymphocytes # 1.7 K/mcL (0.6-4.6); Lymphocytes % 28.7 %; Mean Corpuscular HGB Conc 29.9 g/dL (31.6-35.5); Mean Corpuscular Hemoglobin 25.3 pg (28.0-33.3); Mean Corpuscular Volume 84.8 fL (83.0-100.0); Mean Platelet Volume 9.1 fL (9.4-12.4); Monocytes # 0.6 K/mcL (0.0-1.3); Monocytes % 9.2 %; Neutrophils # 3.7 K/mcL (1.6-8.9); Platelet Count 270 K/mcL (140-400); Red Blood Count 3.28 M/mcL (3.82-4.97); Red Cell Distribution Width 15.4 % (11.5-14.5); Segmented Neutrophils % 60.5 %
[2018-04-10 06:48] LABS: Calcium 7.8 mg/dL (8.6-10.3); Magnesium 1.6 mg/dL (1.6-2.6); Potassium 4.6 mEq/L (3.5-5.1)
[2018-04-10] MEDS ORDERED: 0.9 % Sodium Chloride 250 ML IVC PRN ×2 (07:44→07:47)
[2018-04-10] MEDS ORDERED: *HR* Heparin 10,000 UNIT/10 ML VIAL IV PRN ×2 (07:44→07:47)
[2018-04-10] MEDS ORDERED: 0.9 % Sodium Chloride 1,000 ML PRIME SCH ×2 (07:45→08:00)
[2018-04-10] MEDS: Insulin LISPRO 300 UNITS/3 ML VIAL SQ SCH ×5 (08:05→16:40)
[2018-04-10] MEDS: Insulin DETEMIR 100 UNIT/ML X5UNITS SQ SCH ×2 (08:05→21:21)
--- NOTE | 2018-04-10 10:17 | Nephrology Progress Note ---
Date of Encounter: 04/10/18 Time of Encounter: 11:00 - Assessment and Plan (1) Anemia Current Visit: Yes Status: Acute Hgb notes at 8.3 after only 1 units pRBC transfused yesterday instead of 2 as ordered with HD, will give second unit today and monitor workup Qualifiers: Anemia type: due to chronic kidney disease Chronic kidney disease stage: on chronic dialysis Qualified Code(s): N18.6 - End stage renal disease; D63.1 - Anemia in chronic kidney disease; Z99.2 - Dependence on renal dialysis (2) Bacteremia Current Visit: Yes Status: Acute continue abx per primary team (3) ESRD (end stage renal disease) Current Visit: Yes Status: Acute Continue HD with UF as tolerated for 2 hrs today to get back on her regular scheduled. Next HD planned for thursday (4) Elevated troponin Current Visit: Yes Status: Acute (5) Hemodialysis catheter dysfunction Current Visit: Yes Status: Acute Need to discuss with IR continued flow issues with new permcath on thursday Qualifiers: Encounter type: initial encounter Qualified Code(s): T82.41XA - Breakdown ( mechanical) of vascular dialysis catheter, initial encounter Subjective Principal diagnosis: UTI Interval history: Interim noted, pt seen and examined s/p HD yesterday and on HD briefly today to resumed her regular TTS schedule. New permcath exchange per IR but still with flow issues. Son at bedside. Objective - Vital Signs Vital signs: Vital Signs Temp Pulse Resp BP Pulse Ox 04/10/18 09:55 114/67 04/10/18 09:40 98/62 04/10/18 09:25 115/64 04/10/18 09:10 105/59 04/10/18 08:55 109/62 04/10/18 08:40 97.9 F 18 118/68 04/10/18 07:52 97.9 F 79 18 122/74 100 04/10/18 04:28 99.2 F 88 18 112/68 98 04/10/18 00:33 98.3 F 78 18 105/63 98 04/09/18 21:27 99.1 F 106 18 123/72 99 04/09/18 16:33 98.1 F 78 18 109/71 100 04/09/18 14:38 97.4 F L 82 16 109/68 04/09/18 14:19 97.4 F L 83 16 117/71 04/09/18 12:50 97.5 F L 18 121/64 04/09/18 12:30 105/60 04/09/18 12:15 102/59 Intake and Output 04/09/18 04/10/18 04/10/18 23:59 07:59 15:59 Intake Total 100 / 100 600 / 600 Output Total 450 / 450 Balance -350 / -350 600 / 600 Intake: IV Fluids 100 / 100 Zosyn 3.375 GM In 0.9 % Sodium 100 / 100 Chloride (Mini-Bag +) 100 ML @ 25 mls/hr IVPB Q12HR VIKA Rx#: [id number] Intake, Rinseback and Flushes 600 / 600 Output: Catheter 450 / 450 Other: Weight 55.3 kg Blood Glucose* 293 258 Hemodialysis Net Fluid Removed 1002 (mL) Patient Weight 04/10/18 23:59 Weight 55.3 kg - General Appearance General appearance: Present: chronically ill EENT: Present: ATNC, mucous membranes moist Neck: Present: no JVD, supple Respiratory: Present: clear Cardiology: Present: no edema, normal S1, normal S2 Dialysis Vascular Access: Venous Catheter Gastrointestinal: Present: no tenderness, no guarding Integumentary: Present: warm and dry Neurologic: Present: no focal deficit Musculoskeletal: Present: no deformities Psychiatric: Present: mood/affect appropriate, cooperative - Lab 04/11/18 04:00 04/11/18 04:00 Most recent lab results Calcium 7.8 mg/dL (8.6-10.3) L 04/10/18 05:37 Magnesium 1.6 mg/dL (1.6-2.6) 04/10/18 05:37 Consult Discharge Plan - Plan Referrals: Macario Diallo MD [Primary Care Provider] -
--- NOTE | 2018-04-10 11:54 | Cardiology Progress Note ---
Date of Encounter: 04/10/18 Time of Encounter: 11:52 Assessment and Plan (1) Elevated troponin Current Visit: Yes Status: Acute Likely secondary to sepsis, however EF decreased on recent echo. Would consider left heart cath when medically stable. Discussion w patient/family: The assessment and plan as outlined above was discussed with the patient and/or family members who expressed understanding and agreement. All questions were answered. Thank you for involving us in the care of your patient. Please call with any questions. Subjective Principal diagnosis: UTI Interval history: Overall improved, denies chest pain. Objective Vital Signs, Last 4 Hours Temp Pulse Resp BP Pulse Ox 04/10/18 11:40 80 18 117/71 100 04/10/18 09:55 114/67 04/10/18 09:40 98/62 04/10/18 09:25 115/64 04/10/18 09:10 105/59 04/10/18 08:55 109/62 04/10/18 08:40 97.9 F 18 118/68 General: Conversant, No Apparent Distress HEENT: Atraumatic, Normocephaly, Mucus Membranes Moist Cardiac: Reg Rate and Rhythm, Normal S1 and S2, No Murmur Lungs: Other (Scattered ronchi) Neuro: Alert and responsive, No focal deficits noted Abdomen: Soft, Non-Tender Results 04/10/18 05:37 04/10/18 05:37 Lab Results 04/09/18 04/09/18 04/10/18 18:19 21:54 05:37 WBC 7.2 6.1 Hgb 9.4 L D 8.7 L 8.3 L Hct 30.6 L 28.3 L 27.8 L Plt Count 258 270 Sodium Potassium Chloride Carbon Dioxide BUN Creatinine Glucose Calcium Magnesium Amylase Lipase 04/10/18 05:37 WBC Hgb Hct Plt Count Sodium 133 L Potassium 4.6 Chloride 101 Carbon Dioxide 25 BUN 22 Creatinine 2.61 H Glucose 255 H Calcium 7.8 L Magnesium 1.6 Amylase 18 L Lipase 10 L Consult Discharge Plan - Plan Referrals: Macario Diallo MD [Primary Care Provider] -
[2018-04-10] MEDS: Magnesium Oxide 400 MG TABLET PO SCH ×2 (11:55→21:21)
[2018-04-10] MEDS: Cholecalciferol (D-3) 1,000 UNIT TABLET PO SCH (11:55)
[2018-04-10] MEDS: Lactobacillus 1 EACH CAP.SPRINK PO SCH (11:55)
[2018-04-10] MEDS: Folic Acid 1 MG TABLET PO SCH (11:55)
[2018-04-10] MEDS: Aspirin Enteric Coated 81 MG Tablet PO SCH (11:55)
[2018-04-10] MEDS: Renal Vitamin 1 CAP CAPSULE PO SCH (11:55)
[2018-04-10] MEDS ORDERED: 0.9 % Sodium Chloride 250 ML ONE (12:07)
--- NOTE | 2018-04-10 14:12 | Internal Med Progress Note ---
Hospitalist Progress Note - Encounter Date of Encounter: 04/10/18 Time of Encounter: 14:10 - Subjective Interval History: Patient seen and evaluated at bedside, patient reports doing well, denies abdominal pain, shortness of breath, chest pain, nausea, or vomiting. She has no seen any bloody stool. Denies lightheadedness, dizziness fevers or chills. - Exam Vitals: Temp Pulse Resp BP Pulse Ox 97.2 F L 80 18 117/71 100 04/10/18 10:58 04/10/18 11:40 04/10/18 11:40 04/10/18 11:40 04/10/18 11:40 Exam: General: Patient is alert, oriented 4. no acute distress Respiratory: Clear breath sounds bilaterally, no wheezing no crackles. Cardiovascular: Normal s1 and s2 No rubs, gallops, or murmors. Abdomen: Bowel sounds present normoactive x-4 quadrants. Abdomen is soft, nondistended. No tenderness to deep or superficial palpation. Musculoskeletal: no edema, no calf tenderness. Atrophy of the lower extremity bilaterally, a strength one out of 5 in the lower extremities. Left upper chest permacath. Neuro: Alert and oriented x4. Cranial nerves 2-12 is intact. Psych: Patient's affect is normal - Assessment and Plan (1) Bacteremia Current Visit: Yes Status: Acute Assessment and Plan: Patient afebrile, hemodynamically stable. Gram negative rods on B/C. Plan: - Continue Zosyn. - Follow up final blood culture report to adjust antibiotics coverage if needed. - ID consulted (2) UTI (urinary tract infection) Current Visit: Yes Status: Acute Assessment and Plan: On appropriate antibiotic coverage. will continue the same (3) HTN (hypertension) Current Visit: No Status: Chronic Assessment and Plan: Blood pressure well-controlled. On metoprolol 12.5 mg by mouth twice a day. (4) Diabetes mellitus Current Visit: Yes Status: Chronic Assessment and Plan: Blood [place] suboptimally controlled. Plan: - Increased Levemir to 20 units twice a day, continue lispro before meals 3 unit and low-dose sliding scale before meals. - Renal and diabetic diet. (5) End stage renal disease Current Visit: Yes Status: Chronic Assessment and Plan: Plan: - Continue renal replacement therapy as per nephrology recommendation. (6) Elevated troponin Current Visit: Yes Status: Acute Assessment and Plan: Possible due to sepsis. Plan: - Cardiology consulted, ischemia workup will be done when patient more stable. - Continue aspirin 81 mg. - No Plavix, due to suspicious of GI bleed, due to decreasing H&H. (7) Anemia Current Visit: Yes Status: Acute Assessment and Plan: Possible due to blood loss. No active signs of bleeding. Plan: - GI consult. - FOBT ordered. - transfuse 1 unit of packed RBC - CBC 1 hour posttransfusion. - Repeat CBC 6 hours posttransfusion x1. - Continue his ferrous sulfate. (8) Hypomagnesemia Current Visit: No Status: Acute Assessment and Plan: Hx of hypomagnesemia; Plan: - Continue scheduled electrolyte replacement. DVT Prophylaxis: No chemical DVT prophylaxis, due to suspicions of GI bleed. Mechanical DVT prophylaxis with PlexiPulse. - Time Spent with Patient Total time spent is greater than 50% in coordination of care (as documented) at patient's floor/unit and/or counseling patient: Greater than 35 minutes Plan of Care Discussed with: patient (and the nurse.) Internal Medicine: Result - Labs CBC & Chem 7: 04/10/18 05:37 04/10/18 05:37 Labs: Short CBC 04/09/18 04/09/18 04/10/18 Range/Units 18:19 21:54 05:37 WBC 7.2 6.1 (4.3-11.1) K/mcL Hgb 9.4 L D 8.7 L 8.3 L (11.5-15.4) g/dL Hct 30.6 L 28.3 L 27.8 L (35.3-44.9) % Plt Count 258 270 (140-400) K/mcL Neutrophils # 3.7 (1.6-8.9) K/mcL BMP 04/10/18 05:37 Sodium 133 L Potassium 4.6 Chloride 101 Carbon Dioxide 25 BUN 22 Creatinine 2.61 H Glucose 255 H Calcium 7.8 L - ABG Interpretation ABG results: PT/INR, D-dimer PT 13.6 Seconds (9.4-12.1) H 04/08/18 05:06 Consult Discharge Plan - Plan Referrals: Macario Diallo MD [Primary Care Provider] - (2) UTI (urinary tract infection) Qualifiers: Urinary tract infection type: site unspecified Hematuria presence: without hematuria Qualified Code(s): N39.0 - Urinary tract infection, site not specified (3) HTN (hypertension) Qualifiers: Hypertension type: essential hypertension Qualified Code(s): I10 - Essential (primary) hypertension (4) Diabetes mellitus Qualifiers: Diabetes mellitus type: type 2 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
--- NOTE | 2018-04-10 15:19 | Electrocardiograph Report ---
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
[2018-04-11] MEDS: Piperacillin/Tazobactam 3.375 GM in 0.9 % Sodium Chloride Mini Bag 100 ML IVPB SCH ×2 (05:03→19:07)
[2018-04-11] MEDS: Lactobacillus 1 EACH CAP.SPRINK PO SCH (09:12)
[2018-04-11] MEDS: Aspirin Enteric Coated 81 MG Tablet PO SCH (09:12)
[2018-04-11] MEDS: Insulin LISPRO 300 UNITS/3 ML VIAL SQ SCH ×6 (09:12→17:22)
[2018-04-11] MEDS: Folic Acid 1 MG TABLET PO SCH (09:12)
[2018-04-11] MEDS: Magnesium Oxide 400 MG TABLET PO SCH ×2 (09:12→22:15)
[2018-04-11] MEDS: Insulin DETEMIR 100 UNIT/ML X5UNITS SQ SCH ×2 (09:12→22:15)
[2018-04-11] MEDS: Renal Vitamin 1 CAP CAPSULE PO SCH (09:12)
[2018-04-11] MEDS: Cholecalciferol (D-3) 1,000 UNIT TABLET PO SCH (09:12)
[2018-04-11] MEDS ORDERED: Insulin DETEMIR 100 UNIT/ML X5UNITS SQ SCH (10:15)
[2018-04-11 10:40] LABS: Calcium 8.3 mg/dL (8.6-10.3); Magnesium 1.5 mg/dL (1.6-2.6); Potassium 5.1 mEq/L (3.5-5.1)
[2018-04-11 10:41] LABS: Basophils % 0.3 %; Eosinophils # 0.1 K/mcL (0.0-0.6); Hematocrit 31.9 % (35.3-44.9); Hemoglobin 9.6 g/dL (11.5-15.4); Immature Granulocytes % 0.2 % (0-4); Lymphocytes # 1.6 K/mcL (0.6-4.6); Lymphocytes % 24.6 %; Mean Corpuscular HGB Conc 30.1 g/dL (31.6-35.5); Mean Corpuscular Hemoglobin 25.9 pg (28.0-33.3); Monocytes # 0.4 K/mcL (0.0-1.3); Monocytes % 5.8 %; Neutrophils # 4.4 K/mcL (1.6-8.9); Platelet Count 266 K/mcL (140-400); Red Blood Count 3.71 M/mcL (3.82-4.97); Red Cell Distribution Width 15.8 % (11.5-14.5); Segmented Neutrophils % 67.1 %
--- NOTE | 2018-04-11 13:34 | Nephrology Progress Note ---
Date of Encounter: 04/11/18 Time of Encounter: 13:00 - Assessment and Plan (1) ESRD (end stage renal disease) Current Visit: Yes Status: Acute Next HD planned for tues on her TTS regimen. Will contact IR in the am regarding continued flow issues even with newly repleced permcath (2) Anemia Current Visit: Yes Status: Acute Hgb stable at 9.6 after transfusion of 1 unit pRBCs 2 days in a roll, will monitor Qualifiers: Anemia type: due to chronic kidney disease Chronic kidney disease stage: on chronic dialysis Qualified Code(s): N18.6 - End stage renal disease; D63.1 - Anemia in chronic kidney disease; Z99.2 - Dependence on renal dialysis (3) Bacteremia Current Visit: Yes Status: Acute continue abx per primary team (4) Elevated troponin Current Visit: Yes Status: Acute Per cardio, can proceed with LHC anytime from a renal standpoint (5) Hemodialysis catheter dysfunction Current Visit: Yes Status: Acute Awaiting discussion with IR tomorrow for managment Qualifiers: Encounter type: initial encounter Qualified Code(s): T82.41XA - Breakdown ( mechanical) of vascular dialysis catheter, initial encounter Subjective Principal diagnosis: UTI Interval history: Pt seen and examined with grandson at bedside. Pt reports she is to have LHC as she has had chest pain on/off in the past. She continues to have trouble with swallowing anything due to pain but slightly better today Objective - Vital Signs Vital signs: Vital Signs Temp Pulse Resp BP Pulse Ox 04/11/18 11:08 98.3 F 83 18 126/80 100 04/11/18 07:03 97.8 F 84 18 123/75 100 04/11/18 05:37 97.8 F 80 18 110/68 100 04/11/18 01:41 98.1 F 84 18 147/90 98 04/10/18 19:23 98.5 F 91 18 122/75 98 04/10/18 18:07 98.3 F 92 16 120/73 98 04/10/18 16:33 97.7 F 82 18 111/69 96 04/10/18 14:58 97.6 F 76 16 109/75 04/10/18 14:33 97.6 F 79 16 113/71 98 Intake and Output 04/10/18 04/11/18 04/11/18 23:59 07:59 15:59 Intake Total 1250 / 1250 120 / 120 Output Total 400 / 400 Balance 1250 / 1250 -400 / -400 120 / 120 Intake: Oral 600 / 600 120 / 120 Blood Product 650 / 650 Rbcs Leuko Poor As-1 Unit 300 / 300 [id number] Rbcs Leuko Poor As-1 Unit 350 / 350 [id number] Output: Catheter 400 / 400 Other: Meal Lunch Percent of Meal Consumed 15% Stool Size Moderate Stool Consistency loose liquid Stool Color Brown # Urine Diapers 1 Weight 55 kg Blood Glucose* 236 323 364 Patient Weight 04/11/18 23:59 Weight 55 kg - General Appearance General appearance: Present: chronically ill EENT: Present: ATNC, mucous membranes moist Neck: Present: no JVD, supple Respiratory: Present: clear Cardiology: Present: no edema, normal S1, normal S2 Dialysis Vascular Access: Venous Catheter Gastrointestinal: Present: no tenderness, no guarding Integumentary: Present: warm and dry Neurologic: Present: no focal deficit Musculoskeletal: Present: no deformities Psychiatric: Present: mood/affect appropriate, cooperative - Lab 04/11/18 04:00 04/11/18 04:00 Most recent lab results Calcium 8.3 mg/dL (8.6-10.3) L 04/11/18 04:00 Magnesium 1.5 mg/dL (1.6-2.6) L 04/11/18 04:00 Consult Discharge Plan - Plan Referrals: Macario Diallo MD [Primary Care Provider] -
[2018-04-11] MEDS: Heparin 25,000 UNIT/500 ML D5W 25,000 UNIT/500 ML BAG IVC SCH (15:04)
--- NOTE | 2018-04-11 16:13 | Internal Med Progress Note ---
Hospitalist Progress Note - Encounter Date of Encounter: 04/11/18 Time of Encounter: 16:11 - Subjective Interval History: evaluated at bedside, she admits doing well, denies abdominal pain, nausea, vomiting or shortness of breath. No 24 hours clinically significant event. - Exam Vitals: Temp Pulse Resp BP Pulse Ox 99.2 F 100 18 135/74 92 04/11/18 14:56 04/11/18 14:56 04/11/18 14:56 04/11/18 14:56 04/11/18 14:56 Exam: General: Patient is alert, oriented 4. no acute distress Respiratory: Clear breath sounds bilaterally, no wheezing no crackles. Cardiovascular: Normal s1 and s2 No rubs, gallops, or murmors. Abdomen: Bowel sounds present normoactive x-4 quadrants. No tenderness to deep or superficial palpation. Musculoskeletal: no edema, no calf tenderness. Atrophy of the lower extremity bilaterally, a strength one out of 5 in the lower extremities. Left upper chest permacath. Neuro: Cranial nerves 2-12 is intact. Psych: Patient's affect is normal - Assessment and Plan (1) Bacteremia Current Visit: Yes Status: Acute Assessment and Plan: Gram negative rods on B/C Plan: continue Piperacillin/Tazobactam final blood culture report pending (2) UTI (urinary tract infection) Current Visit: Yes Status: Acute Assessment and Plan: Plan: continue with zocyn u/u showed no growth final report (3) HTN (hypertension) Current Visit: No Status: Chronic Assessment and Plan: Well controlled Plan: Continue current antihypertensive medications on Metoprolol 12.5mg PO daily (4) Diabetes mellitus Current Visit: Yes Status: Chronic Assessment and Plan: Not well controlled Plan: Levemir increased to 30 units BID Lispro increased to 8 units AC continue with Lispro low dose sliding scale -Renal and diabetic diet (5) End stage renal disease Current Visit: Yes Status: Chronic Assessment and Plan: Plan: Renal replacement therapy as per nephrology recommendations (6) Elevated troponin Current Visit: Yes Status: Acute Assessment and Plan: Possible sepsis vs NSTEMI Plan: Patient on Metoprolol will start low dose Lisinopril FOBT negative on aspirin will discuss with cardiology about starting plavix will discuss with cardiology about ischemic work-up before discharge. (7) Anemia Current Visit: Yes Status: Acute Assessment and Plan: possible due to chronic disease. FOBT negative Plan: continue to monitor will consider transfusing if Hb <8 or patient becomes symptomatic (8) Hypomagnesemia Current Visit: No Status: Acute Assessment and Plan: Plan: Electrolyte replaced. will 1gm of IV mag continue PO daily mag replacement (9) Hemodialysis catheter dysfunction Current Visit: Yes Status: Acute Assessment and Plan: Plan: plan of care as per nephrology recommendation DVT Prophylaxis: started on heparin 5000 units SubQ Q12HR for DVT prophylaxis - Summary of Assessment and Plan Summary of Assessment and Plan: Disposition: Pending ischemic work up and hemodialysis catheter disfunction repair. - Time Spent with Patient Total time spent is greater than 50% in coordination of care (as documented) at patient's floor/unit and/or counseling patient: Greater than 35 minutes Plan of Care Discussed with: patient (and the nurse.) Internal Medicine: Result - Labs CBC & Chem 7: 04/11/18 04:00 04/11/18 04:00 Labs: Short CBC 04/11/18 Range/Units 04:00 WBC 6.6 (4.3-11.1) K/mcL Hgb 9.6 L (11.5-15.4) g/dL Hct 31.9 L (35.3-44.9) % Plt Count 266 (140-400) K/mcL Neutrophils # 4.4 (1.6-8.9) K/mcL BMP 04/11/18 04:00 Sodium 129 L Potassium 5.1 Chloride 100 Carbon Dioxide 23 BUN 25 H Creatinine 3.08 H Glucose 335 H Calcium 8.3 L - ABG Interpretation ABG results: PT/INR, D-dimer PT 13.6 Seconds (9.4-12.1) H 04/08/18 05:06 Consult Discharge Plan - Plan Referrals: Macario Diallo MD [Primary Care Provider] - (2) UTI (urinary tract infection) Qualifiers: Urinary tract infection type: site unspecified Hematuria presence: without hematuria Qualified Code(s): N39.0 - Urinary tract infection, site not specified (3) HTN (hypertension) Qualifiers: Hypertension type: essential hypertension Qualified Code(s): I10 - Essential (primary) hypertension (4) Diabetes mellitus Qualifiers: Diabetes mellitus type: type 2 Diabetes mellitus nursing home insulin use: with nursing home use Diabetes mellitus complication status: with unspecified complications Qualified Code(s): E11.8 - Type 2 diabetes mellitus with unspecified complications; Z79.4 - detention (current) use of insulin (7) Anemia Qualifiers: Anemia type: due to chronic kidney disease Chronic kidney disease stage: on chronic dialysis Qualified Code(s): N18.6 - End stage renal disease; D63.1 - Anemia in chronic kidney disease; Z99.2 - Dependence on renal dialysis (9) Hemodialysis catheter dysfunction Qualifiers: Encounter type: initial encounter Qualified Code(s): T82.41XA - Breakdown ( mechanical) of vascular dialysis catheter, initial encounter
[2018-04-11] MEDS: *HR* Heparin 5,000 UNIT/ML VIAL SQ SCH (19:06)
[2018-04-12 01:36] LABS: Basophils % 0.2 %; Eosinophils # 0.1 K/mcL (0.0-0.6); Eosinophils % 0.5 %; Hematocrit 33.7 % (35.3-44.9); Hemoglobin 10.5 g/dL (11.5-15.4); Immature Granulocytes % 0.5 % (0-4); Lymphocytes # 1.9 K/mcL (0.6-4.6); Lymphocytes % 14.1 %; Mean Corpuscular HGB Conc 31.2 g/dL (31.6-35.5); Mean Corpuscular Hemoglobin 26.7 pg (28.0-33.3); Mean Corpuscular Volume 85.8 fL (83.0-100.0); Mean Platelet Volume 8.6 fL (9.4-12.4); Monocytes # 0.7 K/mcL (0.0-1.3); Monocytes % 5.1 %; Neutrophils # 10.4 K/mcL (1.6-8.9); Platelet Count 258 K/mcL (140-400); Red Blood Count 3.93 M/mcL (3.82-4.97); Red Cell Distribution Width 15.9 % (11.5-14.5); Segmented Neutrophils % 79.6 %
[2018-04-12 01:54] LABS: Calcium 8.4 mg/dL (8.6-10.3); Magnesium 1.7 mg/dL (1.6-2.6); Potassium 5.2 mEq/L (3.5-5.1)
[2018-04-12] MEDS: *HR* Heparin 5,000 UNIT/ML VIAL SQ SCH ×2 (05:12→18:29)
[2018-04-12] MEDS: Piperacillin/Tazobactam 3.375 GM in 0.9 % Sodium Chloride Mini Bag 100 ML IVPB SCH (05:13)
--- NOTE | 2018-04-12 09:53 | Event Note ---
Date of Encounter: 04/12/18 Time of Encounter: 09:30 - Cardiology Event Note Selected Entries 04/12/18 07:45 Temperature 97.6 F Pulse Rate 72 Respiratory Rate 16 Blood Pressure 122/72 O2 Sat by Pulse Oximetry 98 Oxygen Flow Rate (LPM) 2 Oxygen Delivery Method Nasal Cannula Laboratory Tests 04/07/18 04/08/18 04/08/18 09:36 04:00 04:00 WBC 9.3 Hgb 10.0 L INR Creatinine Est GFR (Non-Af Amer) Troponin I 0.86 H* Stool Occult Blood 04/08/18 04/08/18 04/08/18 05:06 11:14 16:41 WBC Hgb INR 1.2 Creatinine Est GFR (Non-Af Amer) Troponin I 0.69 H* 0.80 H* Stool Occult Blood 04/09/18 04/10/18 04/11/18 06:17 14:10 04:00 WBC 6.6 Hgb 7.3 L INR Creatinine Est GFR (Non-Af Amer) Troponin I Stool Occult Blood Negative 04/12/18 04/12/18 01:25 01:25 WBC 13.1 H D Hgb 10.5 L INR Creatinine 3.50 H Est GFR (Non-Af Amer) 13 L Troponin I Stool Occult Blood ITS Impressions Chest X-Ray 04/08/18 02:59 IMPRESSION: Pulmonary edema. D/ / Marcelo Lima MD / Marcelo Lima MD Interpreting Provider: Marcelo Lima MD Echocardiogram Limited Views 04/08/18 09:15 Impressions: Limited echo LVEF 35-40%. Severe global and segmental left ventricular systolic dysfunction. Moderate right ventricular hypokinesis. Moderately dilated left atrium. Valves are not assessed. Left Ventricular Wall Motion: Rest Echo Findings The apex, apical inferior, apical anterior, mid anterior, basal anterior, apical septal, apical lateral, mid anterior lateral, basal anterior lateral, mid anterior septal, basal anterior septal and basal inferior lateral erwin were hypokinetic. The mid inferior, basal inferior, mid inferior septal, basal inferior septal and mid inferior lateral erwin were akinetic. Findings: Study Quality * Limited echo for LV ECG Findings * Normal sinus rhythm. Left Ventricle * LVEF 35-40%. * Severe global and segmental left ventricular systolic dysfunction. * Definity echo contrast was not used. Right Ventricle * Normal right ventricular size * Moderate right ventricular hypokinesis. Left Atrium * Moderately dilated left atrium. Right Atrium * Normal right atrial size. Patient c/o CP during stay. Peak trop 0.86. EF down on echo from 55% to 35-40% . Discussed and reviewed with patient, agreeable to [facility] today. Attempted to discuss with son as well.
[2018-04-12] MEDS: Insulin LISPRO 300 UNITS/3 ML VIAL SQ SCH ×6 (10:11→18:24)
[2018-04-12] MEDS: Aspirin Enteric Coated 81 MG Tablet PO SCH (10:36)
[2018-04-12] MEDS: Renal Vitamin 1 CAP CAPSULE PO SCH (10:36)
[2018-04-12] MEDS: Folic Acid 1 MG TABLET PO SCH (10:36)
[2018-04-12] MEDS: Lactobacillus 1 EACH CAP.SPRINK PO SCH (10:36)
[2018-04-12] MEDS: Insulin DETEMIR 100 UNIT/ML X5UNITS SQ SCH ×2 (10:36→22:26)
[2018-04-12] MEDS: Cholecalciferol (D-3) 1,000 UNIT TABLET PO SCH (10:36)
[2018-04-12] MEDS: Magnesium Oxide 400 MG TABLET PO SCH ×2 (10:36→22:26)
[2018-04-12] MEDS ORDERED: *HR* Midazolam HCl 2 MG/2 ML VIAL ONE (13:23)
[2018-04-12] MEDS ORDERED: *HR* FentaNYL (PF) 100 MCG/2 ML VIAL ONE (13:23)
[2018-04-12] MEDS ORDERED: 0.9 % Sodium Chloride 1,000 ML ONE (13:23)
[2018-04-12] MEDS ORDERED: *HR* Heparin 10,000 UNIT/10 ML VIAL ONE (13:24)
[2018-04-12] MEDS ORDERED: ISOVUE-370 200 ML INFUS..BTL IV ONE (13:24)
[2018-04-12] MEDS ORDERED: Heparin 1,000 UNITS/500 mL 500 ML ONE (13:24)
[2018-04-12] MEDS ORDERED: Nitroglycerin 1,000 MCG/10 ML VIAL IV ONE (13:25)
--- NOTE | 2018-04-12 13:32 | Infectious Disease Progress No ---
Date of Encounter: 04/12/18 Time of Encounter: 13:29 - Assessment and Plan (1) Gram-negative bacteremia Current Visit: Yes Status: Acute Causative organism: Anaerobic gram-negative rods. Likely a contaminant. No further antibiotics required. Discontinue Zosyn and observe. No further recommendations from the ID team. We will sign off. Please reconsult if needed. (2) Nausea & vomiting Current Visit: No Status: Resolved Qualifiers: Vomiting type: unspecified Vomiting Intractability: unspecified Qualified Code(s): R11.2 - Nausea with vomiting, unspecified (3) Abdominal pain Current Visit: Yes Status: Acute Patient has nausea and epigastric abdominal pain with some dysphagia. Could this be esophagitis versus gastritis versus cholecystitis. LFTs not remarkably elevated. Amylase and lipase were normal. Might consider CT abdomen pelvis but will defer to the hospitalist team. Consider GI consultation. 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 (6) Elevated troponin Current Visit: Yes Status: Acute Cardiology consult. Planning for left heart catheterization later today. - Subjective Interval history: Patient seen and examined. No acute events noted overnight. Pending left heart catheter later today with IR evaluation of her left upper chest permacath. Denies any fevers or chills or rigors. Denies any chest pain, shortness of breath, or cough. She denies any nausea, vomiting, diarrhea, constipation. She does report chronic back pain. She denies any oral thrush or new skin lesions. She states her appetite is good and she is hungry although she has been nothing by mouth since midnight. Infect Dis PN-Objective Data - Labs CBC & Chem 7: 04/13/18 07:54 04/13/18 07:54 Labs: Laboratory Results - last 24 hr 04/10/18 04/10/18 04/11/18 16:29 21:42 07:00 WBC RBC Hgb Hct MCV MCH MCHC RDW Plt Count MPV Immature Gran % Seg Neutrophils % Lymphocytes % Monocytes % Eosinophils % Basophils % Neutrophils # Lymphocytes # Monocytes # Eosinophils # Basophils # Sodium Potassium Chloride Carbon Dioxide BUN Creatinine Est GFR ( Amer) Est GFR (Non-Af Amer) BUN/Creatinine Ratio Glucose POC Glucose 271 H 236 H 323 H Calculated Osmolality Calcium Magnesium 04/11/18 04/11/18 04/11/18 11:32 14:57 21:13 WBC RBC Hgb Hct MCV MCH MCHC RDW Plt Count MPV Immature Gran % Seg Neutrophils % Lymphocytes % Monocytes % Eosinophils % Basophils % Neutrophils # Lymphocytes # Monocytes # Eosinophils # Basophils # Sodium Potassium Chloride Carbon Dioxide BUN Creatinine Est GFR ( Amer) Est GFR (Non-Af Amer) BUN/Creatinine Ratio Glucose POC Glucose 364 H 365 H 80 Calculated Osmolality Calcium Magnesium 04/12/18 04/12/18 01:25 01:25 WBC 13.1 H D RBC 3.93 Hgb 10.5 L Hct 33.7 L MCV 85.8 MCH 26.7 L MCHC 31.2 L RDW 15.9 H Plt Count 258 MPV 8.6 L Immature Gran % 0.5 Seg Neutrophils % 79.6 Lymphocytes % 14.1 Monocytes % 5.1 Eosinophils % 0.5 Basophils % 0.2 Neutrophils # 10.4 H Lymphocytes # 1.9 Monocytes # 0.7 Eosinophils # 0.1 Basophils # 0.0 Sodium 129 L Potassium 5.2 H Chloride 100 Carbon Dioxide 23 BUN 33 H Creatinine 3.50 H Est GFR ( Amer) 15 L Est GFR (Non-Af Amer) 13 L BUN/Creatinine Ratio 9 Glucose 107 H POC Glucose Calculated Osmolality 276 L Calcium 8.4 L Magnesium 1.7 Cultures: Serology 04/10/18 Range/Units 14:10 Stool Occult Blood Negative (Negative) Exam - Constitutional Vitals: Temp Pulse Resp BP Pulse Ox 99.4 F 68 18 116/67 97 04/12/18 11:49 04/12/18 11:49 04/12/18 11:49 04/12/18 11:49 04/12/18 11:49 General appearance: cooperative, no acute distress, thin - Head Head exam: Present: atraumatic, normal inspection, normocephalic - Eye Eye exam: Present: EOMI, normal appearance, PERRL Pupils: Present: normal accommodation - ENT ENT exam: Present: mucous membranes moist - Neck Neck exam: Present: normal inspection - Respiratory Respiratory exam: Present: CTAB. Absent: rales, respiratory distress, rhonchi, wheezes - Cardiovascular Cardiovascular exam: Present: RRR, +S1, +S2 - GI/Abdominal GI/Abdominal exam: Present: normal bowel sounds, soft. Absent: distended, tenderness - Extremities Exam Extremities exam: Present: normal inspection. Absent: pedal edema, tenderness - Neurological Exam Neurological exam: Present: alert, oriented X3, no focal deficits - Psychiatric Psychiatric exam: Present: normal affect, normal mood - Skin Skin exam: Present: dry, intact, normal color, warm - Additional findings Additional findings: Perma-cath noted to the left upper chest with transparent dressing C/D/I. Consult Discharge Plan - Plan Referrals: Macario Diallo MD [Primary Care Provider] - - Attending Attestation I examined this patient and my medical decision-making was reviewed with the Resident Physician. I agree with the documented findings, disposition and treatment plan as described except to the extent set forth below.
--- NOTE | 2018-04-12 14:07 | Nephrology Progress Note ---
Date of Encounter: 04/12/18 Time of Encounter: 11:00 - Assessment and Plan (1) End stage renal disease Current Visit: Yes Status: Chronic Patient on hemodialysis on TTS schedule Continues to have Hg catheter dysfunction, scheduled with IR for catheterogram and possible exchange today Plan for hemodialysis tomorrow (2) Hemodialysis catheter dysfunction Current Visit: Yes Status: Acute As above, patient is scheduled for IR procedure to either improve flow or replace hemodialysis catheter today Qualifiers: Encounter type: initial encounter Qualified Code(s): T82.41XA - Breakdown ( mechanical) of vascular dialysis catheter, initial encounter (3) Bacteremia Current Visit: Yes Status: Acute Anaerobic gram-negative rods in blood culture Continue antibiotics per primary team and ID (4) Elevated troponin Current Visit: Yes Status: Acute Elevated troponin with chest pain Patient scheduled for left heart catheterization today (5) Odynophagia Current Visit: Yes Status: Acute Resolved, patient is able to swallow Subjective Principal diagnosis: UTI Interval history: The patient is resting in bed at time of examination. She continues to have some chest pain for which she is undergoing left heart catheterization today. She also continues to have trouble with her hemodialysis catheter as it is not flowing properly. She will undergo procedure with IR today for increased optimization of hemodialysis catheter today. Objective - Vital Signs Vital signs: Vital Signs Temp Pulse Resp BP Pulse Ox 04/12/18 11:49 99.4 F 68 18 116/67 97 04/12/18 07:45 97.6 F 72 16 122/72 98 04/12/18 05:28 98.4 F 90 18 114/67 97 04/12/18 01:52 98.5 F 87 18 125/73 98 04/11/18 21:10 98.6 F 93 18 120/67 96 04/11/18 14:56 99.2 F 100 18 135/74 92 Intake and Output 04/11/18 04/12/18 04/12/18 23:59 07:59 15:59 Intake Total 100 / 100 0 / 0 0 / 0 Output Total 350 / 350 0 / 0 Balance -250 / -250 0 / 0 0 / 0 Intake: IV Fluids 100 / 100 Zosyn 3.375 GM In 0.9 % Sodium 100 / 100 Chloride (Mini-Bag +) 100 ML @ 25 mls/hr IVPB Q12HR [facility] Rx#: [id number] Oral 0 / 0 0 / 0 Output: Urine 0 / 0 Catheter 350 / 350 Other: Meal NPO Percent of Meal Consumed 0% Stool Size Moderate Stool Consistency loose Stool Color Brown # Voids 1 Weight 54.7 kg Blood Glucose* 80 101 104 Patient Weight 04/12/18 23:59 Weight 54.7 kg - General Appearance Exam: Gen: Vitals noted. No acute distress. Frail-appearing elderly woman HEENT: Normocephalic, atraumatic Neck: Supple. No adenopathy. Cardiac: RRR, no murmur, +S1/S2 Pulmonary: Relatively clear to auscultation bilaterally with occasional wheezes dispersed throughout Abdomen: soft, very mild tenderness to palpation of the suprapubic region, no guarding Extremities: no BLE edema, nontender calf, no cyanosis or clubbing Dialysis access: Left subclavian tunneled catheter with no erythema surrounding : Madden catheter in place Neuro: moves all extremities, no focal deficits. A&Ox3 - Lab 04/12/18 01:25 04/12/18 01:25 Most recent lab results Calcium 8.4 mg/dL (8.6-10.3) L 04/12/18 01:25 Magnesium 1.7 mg/dL (1.6-2.6) 04/12/18 01:25 Consult Discharge Plan - Plan Referrals: Macario Diallo MD [Primary Care Provider] -
--- NOTE | 2018-04-12 16:23 | Invasive Diagnostic Lab Proc ---
Name: Lisa Lacy Date of Study: 04/12/2018 Date: 1945 Ht: 61.8in Medical Record#: [id number] Age: 72 Wt: 121.25lb Gender: Female BSA: 1.54 Order #: [id number] BMI: 22.31 Physicians Procedure Physician: Al Montoya MD Referring MD: Referring MD: Staff Name Position Time In Maren Montez RN Head Loft Worker 03:25 PM Ambreen Narayanan RT (R) Monitor 03:25 PM Carrie Gorman RT (R) Scrub 03:25 PM Indications Indication Non-Stemi Procedures Performed Procedure CORONARY ARTERY ANGIO S&I Pre-Procedure Checklist Informed consent is complete signed and on chart. H&P is on chart. ID band is on and ID verified with patient. Patient NPO for procedure The procedure was described for the patient and questions were answered. Blood Pressure: 125/72 ECG is on chart. Rhythm: NSR Plan of Care Patient will tolerate the procedure without complications. Adequate level of comfort will be maintained. Hemodynamics will remain stable Patient will recover from procedure without complications. Respiratory function will be maintained. Cardiac rhythm will remain stable. Patient temperature will be maintained. Patient and/or family have verbalized understanding of the procedure. Patient Education Chief Complaint/Reason for Test: Cardiac Cath Developmental Category: Geriatric (65+ years) Developmentally Appropriate for Age: Yes Learning Barriers: None Education Needs: Procedure Education Method: Verbal Information Taught: Cardiac Cath Educational Evaluation: Able to repeat information Intravenous Access Time IV Size Location DC'd Fluid/Drip Rate Units RN 20g 1 08/06" Patent On Arrival Lt Arm 0.9NaCl 25 ml/hr Allergies acetaminophen NSAIDS (Non-Steroidal Anti-Inflamma Influenza Virus Vaccines Vital Signs Time BP (mmHg) HR (bpm) O2 Sat. RR (bpm) LOC 03:26 PM 125 / 72 83 100 % 19 5 = Fully awake and oriented or at pre-proc level 03:44 PM 113 / 65 88 100 % 4 = Oriented but drowsy 03:49 PM 136 / 65 97 97 % 4 = Oriented but drowsy 03:54 PM 128 / 56 93 100 % 16 03:59 PM 136 / 81 97 99 % 20 4 = Oriented but drowsy 04:34 PM 125 / 69 80 100 % 04:24 PM 125 / 72 84 100 % 20 04:08 PM 132 / 72 98 100 % 18 4 = Oriented but drowsy Procedural Medications Time Medication Dose Units Method Given By 03:29 PM Versed 0.5 mg Intravenous Maren Montez RN 03:29 PM Benadryl 25 mg Intravenous Maren Montez RN 03:31 PM Lidocaine 2% 10 ml Subcutaneous Al Montoya MD 03:40 PM Heparin 1000 units Intravenous Maren Montez RN ASA Classification: CLASS II- Mild systemic disease (i.e. well-controlled diabetes, hypertension, asthma, cigarette smoking) Preston Score Preprocedure Postprocedure Activity 2- Moves 4 extremities sustained head lift Activity 2- Moves 4 extremities sustained head lift Circulation 2- SBP +/= 20 points of pre-anesthetic level Circulation 2- SBP +/= 20 points of pre-anesthetic level Consciousness 2- Awake and alert oriented x 3 Consciousness 2- Awake and alert oriented x 3 O2 Saturation 2- Able to maintain O2 satruation of 92% on room air O2 Saturation 2- Able to maintain O2 satruation of 92% on room air Respiratory 2- Able to deep breathe and cough well Respiratory 2- Able to deep breathe and cough well Total Score 10 Total Score 10 Contrast Agent: Isovue Diagnostic Contrast: 40 ml Total Contrast: 40 ml Fluoro Dose: 1755 mGy Procedure Log Time Note Enter By 03:24 PM Pt arrived to prestressed concrete laborer 2 at 15:[email or web address] 03[facility]25 PM Maren Montez RN Position: Head Loft Worker Time in: 15:25 [email or web address] 03:25 PM Ambreen Narayanan RT (R) Position: Monitor Time in: 15:25 [email or web address] 03:25 PM Carrie Gorman RT (R) Position: Scrub Time in: 15:25 [email or web address] 03:25 PM Patient charges- Angio tray pack, Navilyst 3mm J, Pulse Oximetry and ACIST tubing and transducer [email or web address] 03:25 PM Case Delayed No [email or web address] 03:25 PM Hair removed from procedure site in holding area using clippers. Bilateral groin prepped with Chloraprep by Ambreen Narayanan RT (R), then patient was draped. Skin intact. [email or web address] 03:25 PM Physician arrived 15:25 [email or web address] 03:25 PM Meet and chris completed [email or web address] 03:25 PM ASA Class CLASS II- Mild systemic disease (i.e. well-controlled diabetes, hypertension, asthma, cigarette smoking) [email or web address] 03:25 PM Sign in performed according to hospital policy. [email or web address] 03:25 PM Procedure start 15:25 [email or web address] 03:26 PM Time: 15:26 Patient comfortable and pain free: Yes [email or web address] 03:26 PM Time: 15:26LOC: 5 = Fully awake and oriented or at pre-proc level [email or web address] 03:29 PM Time: 15:29 Versed 0.5 mg Intravenous Given by Maren Montez RN [email or web address] 03:29 PM Time: 15:29 Benadryl 25 mg Intravenous Given by Maren Montez RN [email or web address] 03:31 PM Time out performed according to hospital policy [email or web address] 03:32 PM Time: 15:31 10 ml Lidocaine 2% to right groin Subcutaneous Given by Al Montoya MD [email or web address] 03:32 PM Micro-Introducer Kit utilized for sheath placement [email or web address] 03:33 PM 3 mls contrast injected into Rt INDUSTRIAL SAFETY AND HEALTH TECHNICIAN. [email or web address] 03:34 PM Access obtained by percutaneous puncture. 6Fr 10cm Terumo [place] sheath placed in right Femoral artery. [id number] [email or web address] 03:34 PM 0.035 145cm Navilyst 3mmJ wire [id number] [email or web address] 03:34 PM 5Fr FR 4 catheter inserted over the wire DN [email or web address] 03:35 PM RCA angiography performed in multiple views. [email or web address] 03:36 PM Coronary Dominance: right [email or web address] 03:37 PM Lesion found in Mid RCA. Pre Stenosis: 99 Pre RIRI Flow: 3: Complete and Brisk Flow/Perfusion [email or web address] 03:37 PM Catheter removed [email or web address] 03:37 PM 5Fr FL 4 catheter inserted over the wire DN [email or web address] 03:37 PM LCA angiography performed in multiple views. [email or web address] 03:39 PM Conversation between Interventionalist and CT Surgeon. [email or web address] 03:40 PM Catheter removed [email or web address] 03:41 PM Time: 15:40 Heparin 1000 units Intravenous Given by Maren Monetz RN [email or web address] 03:41 PM Time: 15:26LOC: 4 = Oriented but drowsy [email or web address] 03:41 PM Time: 15:26 Patient comfortable and pain free: Yes [email or web address] 03:47 PM Procedure completed at 15:47 04/12/2018 [email or web address] 03:47 PM Did you address RIRI flow and Dominance? Yes [email or web address] 03:47 PM Sign out completed: Radiation Dose 219.92 mGy, 1754.74 cGy/cm2 Fluoro Time: 1.6 Isovue 370 - 200ml contrast 40 ml given by Al Montoya MD. Complications: NoneCardiac Rehab Consult needed: YesConfirmed administered medications: Yes [email or web address] 03:48 PM Estimated Blood Loss: minimal [email or web address] 03:48 PM Post ECG NSR [email or web address] 03:48 PM Post Blood Pressure 135/79 [email or web address] 03:48 PM 15:48 Post Pulses Bilateral DP & PT 1+ [email or web address] 03:49 PM Information taught Cardiac Cath [email or web address] 03:49 PM Education needs Procedure, Plan of Care, and Disease Process [email or web address] 03:49 PM Learning barriers :None [email or web address] 03:49 PM Education Methods Verbal [email or web address] 03:49 PM Education evaluation Able to repeat information [email or web address] 03:56 PM Time: 15:41 Patient comfortable and pain free: Yes [email or web address] 03:56 PM Time: 15:41LOC: 4 = Oriented but drowsy [email or web address] 03:59 PM Arterial sheath pulled using manual compression and V+ Pad for 15 minutes by Crystal Osorio RN [email or web address] 04:05 PM Report given to Emelia SAENZ Pt taken to 2A Room #62. 16:05 [email or web address] 04:13 PM Site status No bleeding/hematoma - Rt Groin as reported by Crystal Osorio RN at 16:13 [email or web address] 04:14 PM Opsite applied [email or web address] 04:14 PM Patient out of room: 16:14 [email or web address] Complications Complication None Hemodynamics Pressures Site Systolic/A Wave Diastolic/V Wave Mean AO 105 66 84 AO 100 56 76 AO 110 61 83 Post Procedure Information Blood Pressure: 135/79 mmHg Rhythm: NSR Post procedural instructions were given Surgery consult for CABG Site Checks Time Location Status Staff Sheath In? Note 04:13 PM Rt Groin No bleeding/hematoma Crystal Osorio RN Pulses Time Site Pre-Procedure Post-Procedure Note Bilateral DP & PT 1+ Bilateral radial 2+ 3:48:00 PM Bilateral DP & PT 1+ Updated by Ambreen Narayanan RT(R) on 04/12/2018 4:14:37 PM electronically signed on 04/12/2018 4:15:02 PM with status of Final
--- NOTE | 2018-04-12 17:56 | Internal Med Progress Note ---
Hospitalist Progress Note - Encounter Date of Encounter: 04/12/18 Time of Encounter: 17:53 - Subjective Interval History: evaluated at bedside, post [facility], patient hemodynamically stable, denies groin pain. Denies chest pain, shortness of breath, nausea or vomiting. as well as abdominal pain. - Exam Vitals: Temp Pulse Resp BP Pulse Ox 99.4 F 68 18 116/67 97 04/12/18 11:49 04/12/18 11:49 04/12/18 11:49 04/12/18 11:49 04/12/18 11:49 Exam: General: Patient is alert, oriented 4. no acute distress Respiratory: Clear breath sounds bilaterally, no wheezing no crackles. Cardiovascular: Normal s1 and s2 No rubs, gallops, or murmors. Abdomen: normoactive bowel sounds in all 4 quadrants. No tenderness to deep or superficial palpation. Musculoskeletal: no edema. Atrophy of the lower extremity bilaterally, a strength 2 out of 5 in the lower extremities. Left upper chest permacath. Neuro: Cranial nerves 2-12 is intact. Psych: Patient's affect is normal - Assessment and Plan (1) Hemodialysis catheter dysfunction Current Visit: Yes Status: Acute Assessment and Plan: Patient is scheduled for HD catheter investigation by IR tomorrow (2) Elevated troponin Current Visit: Yes Status: Acute Assessment and Plan: Possible due to NSTEMI. Patient is status post [facility]. Cardiology recommended thoracic surgery evaluation. Continue metoprolol, and aspirin. will discuss with cardiology about starting the patient on Plavix. (3) Bacteremia Current Visit: Yes Status: Acute Assessment and Plan: Plan: Gram negative patrick growing in blood cultured believed to be a contaminant by ID recommended to discontinue antibiotics (4) HTN (hypertension) Current Visit: No Status: Chronic Assessment and Plan: Blood pressure well controlled. Plan: ON metoprolol. To continue current treatment (5) Diabetes mellitus Current Visit: Yes Status: Chronic Assessment and Plan: Blood sugar well controlled. Patient is on Levemir 30 units twice a day, lispro before meals 8 unit plus low-dose sliding scale. (6) End stage renal disease Current Visit: Yes Status: Chronic Assessment and Plan: Continue renal replacement therapy as per nephrology recommendation. (7) Anemia Current Visit: Yes Status: Acute Assessment and Plan: Stable H&H, status post transfusion of 2 packed RBC yesterday. No active signs of bleeding. will follow CBC in the morning. (8) Hypomagnesemia Current Visit: No Status: Acute Assessment and Plan: Patient had a history of chronic hypomagnesemia, will continue scheduled electrolyte replacement. (9) UTI (urinary tract infection) Current Visit: Yes Status: Acute Assessment and Plan: Plan: As per iD no more antibiotics needed as patient has completed treatment Final urine culture showed no growth. DVT Prophylaxis: On heparin 5000 units subcutaneous twice a day for DVT prophylaxis. - Summary of Assessment and Plan Summary of Assessment and Plan: Patient needs to remain in the hospital for thoracic surgery evaluation, and hemodialysis catheter investigation. - Time Spent with Patient Total time spent is greater than 50% in coordination of care (as documented) at patient's floor/unit and/or counseling patient: Greater than 35 minutes Plan of Care Discussed with: patient (and the nurse.) Internal Medicine: Result - Labs CBC & Chem 7: 04/12/18 01:25 04/12/18 01:25 Labs: Short CBC 04/12/18 Range/Units 01:25 WBC 13.1 H D (4.3-11.1) K/mcL Hgb 10.5 L (11.5-15.4) g/dL Hct 33.7 L (35.3-44.9) % Plt Count 258 (140-400) K/mcL Neutrophils # 10.4 H (1.6-8.9) K/mcL BMP 04/12/18 01:25 Sodium 129 L Potassium 5.2 H Chloride 100 Carbon Dioxide 23 BUN 33 H Creatinine 3.50 H Glucose 107 H Calcium 8.4 L - ABG Interpretation ABG results: PT/INR, D-dimer PT 13.6 Seconds (9.4-12.1) H 04/08/18 05:06 Consult Discharge Plan - Plan Referrals: Macario Diallo MD [Primary Care Provider] - (1) Hemodialysis catheter dysfunction Qualifiers: Encounter type: initial encounter Qualified Code(s): T82.41XA - Breakdown ( mechanical) of vascular dialysis catheter, initial encounter (4) HTN (hypertension) Qualifiers: Hypertension type: essential hypertension Qualified Code(s): I10 - Essential (primary) hypertension (5) Diabetes mellitus Qualifiers: Diabetes mellitus type: type 2 Diabetes mellitus medical terminologist insulin use: with chcf use Diabetes mellitus complication status: with unspecified complications Qualified Code(s): E11.8 - Type 2 diabetes mellitus with unspecified complications; Z79.4 - assisted (current) use of insulin (7) Anemia Qualifiers: Anemia type: due to chronic kidney disease Chronic kidney disease stage: on chronic dialysis Qualified Code(s): N18.6 - End stage renal disease; D63.1 - Anemia in chronic kidney disease; Z99.2 - Dependence on renal dialysis (9) UTI (urinary tract infection) Qualifiers: Urinary tract infection type: catheter-associated UTI Indwelling urinary catheter type: unspecified Encounter type: initial encounter Qualified Code(s) : T83.511A - Infection and inflammatory reaction due to indwelling urethral catheter, initial encounter; N39.0 - Urinary tract infection, site not specified
[2018-04-13] MEDS: *HR* Heparin 5,000 UNIT/ML VIAL SQ SCH ×2 (05:18→18:20)
--- NOTE | 2018-04-13 08:07 | Cardiology Progress Note ---
Date of Encounter: 04/13/18 Time of Encounter: 08:05 Assessment and Plan (1) Elevated troponin Current Visit: Yes Status: Acute Per Cardiology: Peak 0.86-- inittially thought Type I vs Type II NSTEMI. Now that LHC shows severe CAD, suspect NSTEMI. CP free. (2) Cardiomyopathy Current Visit: Yes Status: Acute Per Cardiology: Peak trop 0.86. EF down on echo from 55% to 35-40%. Euvolemic on exam. On HD for ESRD. Will switch to Toprol XL. Qualifiers: Cardiomyopathy type: unspecified Qualified Code(s): I42.9 - Cardiomyopathy , unspecified (3) CAD (coronary artery disease) Current Visit: Yes Status: Acute Per Cardiology: Echo 35-40%, moderate right ventricular hypokinesis. LHC: 60% left main lesion, a 95% circumflex lesion, a 99% mid right coronary artery lesion and a 60% LAD lesion. Seen by CT surgery: "I favor medical treatment and/or high risk PTCA with stents. If open heart surgery is felt to be the best and only option, he would need to be done in [place]". Will review cath films with Dr. Uma Lawrence. On asa, statin, BB. Adding long acting nitrate. Qualifiers: Coronary Disease-Associated Artery/Lesion type: [place] artery [place] vs. transplanted heart: [place] heart Associated angina: without angina Qualified Code(s): I25.10 - Atherosclerotic heart disease of [place] coronary artery without angina pectoris Discussion w patient/family: The assessment and plan as outlined above was discussed with the patient and/or family members who expressed understanding and agreement. All questions were answered. Thank you for involving us in the care of your patient. Please call with any questions. Subjective Principal diagnosis: UTI, CAD Objective Vital Signs, Last 4 Hours Temp Pulse Resp BP Pulse Ox 04/13/18 04:15 97.7 F 82 15 149/85 100 Results 04/13/18 07:54 04/13/18 07:54 Active Medications Albuterol Sulfate (Proventil Neb) 2.5 mg IH Q2H PRN; Protocol PRN Reason: Shortness Of Breath/Wheezing Stop: 10/08/18 03:00 Aspirin (Aspirin Ec) 81 mg PO DAILY [facility] Stop: 10/08/18 09:01 Last Admin: 09/10/18 10:36 Dose: Not Given Ferrous Sulfate (Ferrous Sulfate) 325 mg PO BIDWM [facility] Stop: 10/07/18 17:01 Last Admin: 04/12/18 18:24 Dose: Not Given Folic Acid (Folic Acid) 1 mg PO DAILY [facility] Stop: 10/08/18 09:01 Last Admin: 04/12/18 10:36 Dose: Not Given Glucose (Gluctose) 15 gm PO ONCE PRN PRN Reason: Hypoglycemia Stop: 10/08/18 17:31 Heparin Sodium (Porcine) (Heparin) 5,000 unit SQ Q12HCO [facility] Stop: 10/11/18 18:01 Last Admin: 04/13/18 05:18 Dose: Not Given Insulin Detemir (Levemir) 30 unit SQ BID [facility] Stop: 10/11/18 16:16 Last Admin: 04/12/18 22:26 Dose: Not Given Insulin Human Lispro (Humalog) 0 units SQ TIDAC [facility] PRN Reason: Protocol Stop: 10/09/18 07:31 Last Admin: 04/12/18 18:23 Dose: Not Given Insulin Human Lispro (Humalog) 8 units SQ TIDAC [facility] Stop: 10/11/18 16:16 Last Admin: 04/12/18 18:24 Dose: Not Given Lactobacillus Acidophilus/Rhamnosus (Culturelle) 2 each PO DAILY [facility] Stop: 10/08/18 09:01 Last Admin: 04/12/18 10:36 Dose: Not Given Magnesium Oxide (Mag-Ox) 400 mg PO BID [facility] PRN Reason: Protocol Stop: 10/09/18 09:01 Last Admin: 04/12/18 22:26 Dose: Not Given Metoprolol Tartrate (Lopressor) 12.5 mg PO BID [facility] Stop: 10/07/18 21:01 Last Admin: 04/12/18 22:26 Dose: Not Given Multi-Ingredient Mucositis [place] (Chloraseptic) 1 spray MM QID PRN PRN Reason: Sore Throat Stop: 10/07/18 20:07 Naloxone HCl (Narcan) 0.4 mg IVP Q2MIN PRN PRN Reason: SEE COMMENTS Stop: 10/07/18 13:09 Nitroglycerin (Nitroglycerin) 0.4 mg SL Q5MIN PRN PRN Reason: Chest Pain Stop: 10/08/18 03:49 Omeprazole (Prilosec) 20 mg PO DAILY [facility] Stop: 10/08/18 09:01 Last Admin: 04/12/18 10:36 Dose: Not Given Ondansetron HCl (Zofran) 4 mg IVP Q6HR PRN; Protocol PRN Reason: Nausea And Vomiting Stop: 10/07/18 16:01 Simvastatin (Zocor) 5 mg PO HS [facility] Stop: 10/07/18 21:01 Last Admin: 04/12/18 22:26 Dose: Not Given Vitamin B Complex/Vit C/Folic Acid (Renal Caps Softgel) 1 cap PO DAILY [facility] Stop: 10/08/18 09:01 Last Admin: 04/12/18 10:36 Dose: Not Given Vitamin D (Vitamin D) 1,000 unit PO DAILY [facility] Stop: 10/08/18 09:01 Last Admin: 04/12/18 10:36 Dose: Not Given - Imaging and Cardiology Cardiac cath: report reviewed Consult Discharge Plan - Plan Referrals: Macario Diallo MD [Primary Care Provider] -
[2018-04-13 08:26] LABS: Hematocrit 33.7 % (35.3-44.9); Hemoglobin 10.2 g/dL (11.5-15.4); Mean Corpuscular HGB Conc 30.3 g/dL (31.6-35.5); Mean Corpuscular Volume 85.8 fL (83.0-100.0); Mean Platelet Volume 9.1 fL (9.4-12.4); Platelet Count 260 K/mcL (140-400); Red Blood Count 3.93 M/mcL (3.82-4.97); Red Cell Distribution Width 16.5 % (11.5-14.5)
--- NOTE | 2018-04-13 08:35 | Cardiothoracic Consult Note ---
Date of Encounter: 04/13/18 Time of Encounter: 08:29 Assessment and Plan (1) Abnormal EKG Current Visit: No Status: Resolved The assessment and plan as outlined above was discussed with the patient and/or family members who expressed understanding and agreement. All questions were answered. The patient is a poor candidate for open heart surgery because of her numerous medical problems. She has renal failure and is on chronic hemodialysis, has an indwelling Madden catheter, is on 2 L of oxygen at night per nasal prong, has a history of C. difficile infection and has numerous other medical problems as well as being quite frail. I favor medical treatment and/or high risk PTCA with stents. If open heart surgery is felt to be the best and only option, he would need to be done in [place]. - History of Present Illness History of present illness: Ms. Lacy is a 72 year old female The patient is a 72-year-old female who has chronic renal failure and is on dialysis. The history is somewhat difficult to obtain as the patient is hard of hearing and her hearing aid is broken. The patient presented with shortness of breath and sepsis. Chest x-ray revealed pulmonary edema. She did have a positive troponin to 0.8 and EKG changes. Echocardiogram revealed decreased ventricular function with an ejection fraction of 35-40%. She also had moderate right ventricular hypokinesis. Cardiac catheterization revealed a 60% left main lesion, a 95% circumflex lesion, a 99% mid right coronary artery lesion and a 60% LAD lesion. Past medical history is notable for hypertension, hyperlipidemia and diabetes. She is on insulin for her diabetes. She has a chronic indwelling Madden catheter and uses 2 L of oxygen at night by nasal prong. Social history. She lives with her 2 grandsons. Her 3 years ago. She does not smoke and does not drink. Review of systems is notable for no stroke or TIA. Past Med Surg Social Fam HX - Past Medical History Medical history: diabetes, hyperlipidemia, hypertension, renal disease, other Additional medical history: UTI, electrolyte imbalances, ESRD, pancytopenia, CDiff 2016, hydronephrosis, pneumonia, urinary retention/obstructive uropathy, diabetic foot ulcer Psychiatric history: anxiety - Past Surgical History Surgical History: appendectomy, cholecystectomy, hysterectomy Additional surgical history: cholecystectomy and appendectomy? - Social History Smoking Status: Never smoker Smokeless Tobacco Status: No Alcohol use: none Drug use: none - Family History Mother Living Status: Hx Family Cardiac Disorders: Yes Father Living Status: Hx Family Cardiac Disorders: Yes Medications and Allergies Metoprolol [Lopressor] 12.5 mg PO BID 03/01/16 [History] Aspirin Enteric Coated [Aspirin EC] 81 mg PO DAILY 08/04/17 [History] Oxygen 2 l NS AD 08/04/17 [History] Ferrous Sulfate 325 mg PO BID 10/28/17 [History] Pravastatin Sodium [Pravachol] 10 mg PO HS 10/28/17 [History] Cholecalciferol (Vitamin D3) [Vitamin D3] 1,000 unit PO DAILY 11/16/17 [History] Insulin Glargine,Hum.rec.anlog [Basaglar Kwikpen U-100] 40 unit SQ HS 11/16/17 [ History] Folic Acid 1 mg PO DAILY 30 Days #30 tab 01/08/18 [Rx] Lactobacillus [Culturelle] 2 each PO DAILY cap.sprink 01/08/18 [Rx] Renal Vitamin [Renal Caps Softgel] 1 mg PO DAILY 30 Days #30 capsule 01/08/18 [ Rx] Omeprazole 20 mg PO DAILY #14 tablet. 03/19/18 [Rx] 3 Allergy/AdvReac Type Severity Reaction Status Date / Time acetaminophen [From Tylenol] Allergy See Verified 12/22/17 19:03 Comments Influenza Virus Vaccines Allergy See Verified 12/22/17 19:03 Comments NSAIDS (Non-Steroidal Allergy See Verified 02/05/18 02:56 Anti-Inflamma Comments All Systems Review: The remainder of the systems were reviewed and are negative Physical Examination Pupils are equal, round and reactive to light and accommodation. No oral lesions. Neck is supple. Trachea in the midline. No thyromegaly or carotid bruits. Lungs are clear to percussion and auscultation. Heart is in a regular rate and rhythm. No murmurs, gallops or rubs. Abdomen is benign. The patient is status post appendectomy, cholecystectomy and hysterectomy. No tenderness, rebound or guarding. Extremities without edema. No saphenous vein varicosities or strippings. Cranial nerves are noted for her being hard of hearing. Motor and sensory intact. She does have a left subclavian percutaneous dialysis catheter in place. She also has a chronic indwelling Madden catheter. Results 04/13/18 07:54 04/12/18 01:25 Lab Results, Last 24 hours 04/13/18 07:54 WBC 13.1 H Hgb 10.2 L Hct 33.7 L Plt Count 260 Consult Discharge Plan - Plan Referrals: Macario Diallo MD [Primary Care Provider] -
[2018-04-13 08:45] LABS: Calcium 8.5 mg/dL (8.6-10.3); Potassium 5.7 mEq/L (3.5-5.1)
[2018-04-13] MEDS ORDERED: Heparin 1,000 UNITS/500 mL 500 ML ONE (10:52)
[2018-04-13] MEDS: Insulin LISPRO 300 UNITS/3 ML VIAL SQ SCH ×6 (10:58→20:04)
[2018-04-13] MEDS ORDERED: *HR* Heparin 5,000 UNIT/ML VIAL ONE (11:15)
--- NOTE | 2018-04-13 11:18 | Nephrology Progress Note ---
Date of Encounter: 04/13/18 Time of Encounter: 09:00 - Assessment and Plan (1) End stage renal disease Current Visit: Yes Status: Chronic Patient on hemodialysis on TTS schedule Continues to have HD catheter dysfunction, was initially scheduled for catheterogram and possible exchange of HD catheter yesterday with IR but could not have it due to left heart catheterization. She will have this procedure today. Plan for hemodialysis Today. (2) Hemodialysis catheter dysfunction Current Visit: Yes Status: Acute As above, patient is scheduled for IR procedure to either improve flow or replace hemodialysis catheter today Qualifiers: Encounter type: initial encounter Qualified Code(s): T82.41XA - Breakdown ( mechanical) of vascular dialysis catheter, initial encounter (3) Bacteremia Current Visit: Yes Status: Acute Anaerobic gram-negative rods in blood culture Continue antibiotics per primary team and ID (4) Elevated troponin Current Visit: Yes Status: Acute Elevated troponin with chest pain Patient scheduled for left heart catheterization today Subjective Principal diagnosis: UTI, CAD Interval history: The patient is resting in bed at time of examination. She did have left heart catheterization yesterday which demonstrated severe three-vessel disease. The patient is not a good candidate for CABG and will likely have medical management. She is scheduled for catheterogram with interventional radiology today. Objective - Vital Signs Vital signs: Vital Signs Temp Pulse Resp BP Pulse Ox 04/13/18 08:29 97.6 F 82 19 137/73 99 04/13/18 04:15 97.7 F 82 15 149/85 100 04/12/18 23:45 98 F 79 15 114/62 97 04/12/18 20:15 97.6 F 82 15 122/79 100 04/12/18 11:49 99.4 F 68 18 116/67 97 Intake and Output 04/12/18 04/13/18 04/13/18 23:59 07:59 15:59 Output Total 175 / 175 Balance -175 / -175 Output: Catheter 175 / 175 Other: Meal npo Percent of Meal Consumed 0% Stool Size Moderate Small Stool Consistency liquid loose Stool Color Brown # Bowel Movement Diapers 1 Weight 56.6 kg Blood Glucose* 107 160 - General Appearance Exam: Gen: Vitals noted. No acute distress. Frail-appearing elderly woman HEENT: Normocephalic, atraumatic Neck: Supple. No adenopathy. Cardiac: RRR, no murmur, +S1/S2 Pulmonary: Relatively clear to auscultation bilaterally with occasional wheezes dispersed throughout Abdomen: soft, very mild tenderness to palpation of the suprapubic region, no guarding Extremities: no BLE edema, nontender calf, no cyanosis or clubbing Dialysis access: Left subclavian tunneled catheter with no erythema surrounding : Madden catheter in place Neuro: moves all extremities, no focal deficits. A&Ox3 - Lab 04/13/18 07:54 04/13/18 07:54 Most recent lab results Calcium 8.5 mg/dL (8.6-10.3) L 04/13/18 07:54 Magnesium 1.7 mg/dL (1.6-2.6) 04/12/18 01:25 Consult Discharge Plan - Plan Referrals: Macario Diallo MD [Primary Care Provider] -
[2018-04-13] MEDS ORDERED: 0.9 % Sodium Chloride 1,000 ML ONE (12:09)
--- NOTE | 2018-04-13 12:18 | Event Note ---
Date of Encounter: 04/13/18 Time of Encounter: 12:10 - Cardiology Event Note Patient discussed and reviewed with Dr. Abbi Lawrence, recommendations for potential transfer to [facility] or [facility] for high risk PCI attempt. Discussed and reviewed with patient's son (Saulo), they will review discuss. Cardiology will sign off, reconsult as needed, follow-up arranged. If patient and family desire transfer recommended inpatient transfer for high risk PCI attempt.
[2018-04-13] MEDS ORDERED: *HR* Heparin 10,000 UNIT/10 ML VIAL IV PRN (12:29)
[2018-04-13] MEDS ORDERED: 0.9 % Sodium Chloride 250 ML IVC PRN (12:29)
[2018-04-13] MEDS ORDERED: 0.9 % Sodium Chloride 1,000 ML PRIME SCH (12:30)
[2018-04-13] MEDS: Aspirin Enteric Coated 81 MG Tablet PO SCH (13:18)
[2018-04-13] MEDS: Metoprolol XL (24 HR) Succ 25 MG TAB.ER.24H PO SCH (13:19)
[2018-04-13] MEDS: Folic Acid 1 MG TABLET PO SCH (13:19)
[2018-04-13] MEDS: Cholecalciferol (D-3) 1,000 UNIT TABLET PO SCH (13:19)
[2018-04-13] MEDS: Insulin DETEMIR 100 UNIT/ML X5UNITS SQ SCH ×2 (13:19→21:17)
[2018-04-13] MEDS: Magnesium Oxide 400 MG TABLET PO SCH ×2 (13:19→21:17)
[2018-04-13] MEDS: Lactobacillus 1 EACH CAP.SPRINK PO SCH (13:19)
[2018-04-13] MEDS: Renal Vitamin 1 CAP CAPSULE PO SCH (13:19)
[2018-04-13] MEDS: Isosorbide MONOnitrate (24 HR) 30 MG TAB.ER.24H PO SCH (18:19)
--- NOTE | 2018-04-13 21:44 | Internal Med Progress Note ---
Hospitalist Progress Note - Encounter Date of Encounter: 04/13/18 Time of Encounter: 19:00 - Subjective Interval History: SUBJECTIVE: The patient feels good. She is on room air oxygen. Denies chest pain, dyspnea , coughing and wheezing. Denies abdominal pain, nausea and vomiting. She makes small amounts of urine; to a gravity bag. She gets hemodialysis. OBJECTIVE: Skin: Free of rash and discoloration. ENMT: Oral/pharyngeal mucosa is normal in appearance. Eyes: Sclera is white. There is no discharge from eyes. Respiratory: Normal breath sounds; no crackles or wheezes. CV: Heart is regular; no gallop or murmur. GI: Abdomen is soft and not tender. There is no palpable mass or visceromegaly. Neuro: There is no focal deficits. ASSESSMENT AND PLAN: The patient was admitted with UTI/sepsis. She is not getting any antibiotics at this time. I can see her WBC of 13.1 thousand and 13.1 thousand in the last 2 days. Her cultures from 04/07/18 are growing anaerobe gram-negative rods. I would repeat her UA and urine culture. I would repeat her CBC. When treated for the above-mentioned, she developed atypical chest pain with mildly elevated troponins. Cardiology was consulted. Subsequently the patient got cardiac catheterization. She was found to have severe coronary artery disease. Cardiothoracic surgery was consulted. The patient would likely benefit from CABG surgery. This would be very high risk surgery. The patient has not been ambulating for the last 2 years. She is on hemodialysis program. Cardiology is recommended transfer to [facility] in [place], [place]. She is on Toprol-XL and Zocor/aspirin. 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 Under better control. We will continue diabetic diet, insulin Levemir and when necessary insulin Humalog. Hypertensive renal disease with end-stage renal disease. Under control. Will continue Toprol-XL. Anemia from chronic kidney disease. Her last hemoglobin is 10.2. End-stage renal disease on dialysis. Her malfunctioning hemodialysis catheter has been changed today. GERD. Under control. We will continue omeprazole. DISPOSITION: The patient's family/the patient wanted to transfer this patient to [facility]. I will attempt to do this tomorrow morning. - Exam Vitals: Temp Pulse Resp BP Pulse Ox 98 F 100 15 91/50 99 04/13/18 19:25 04/13/18 19:25 04/13/18 19:25 04/13/18 19:25 04/13/18 19:25 Exam: xxx - Assessment and Plan (1) UTI (urinary tract infection) Current Visit: Yes Status: Acute (2) Bacteremia Current Visit: Yes Status: Acute (3) Elevated troponin Current Visit: Yes Status: Acute (4) CAD (coronary artery disease) Current Visit: Yes Status: Acute (5) Hemodialysis catheter dysfunction Current Visit: Yes Status: Acute (6) Diabetes mellitus Current Visit: Yes Status: Chronic (7) Hypertensive renal disease with renal failure Current Visit: Yes Status: Chronic (8) Anemia Current Visit: Yes Status: Acute (9) ESRD on dialysis Current Visit: Yes Status: Chronic (10) GERD (gastroesophageal reflux disease) Current Visit: Yes Status: Chronic - Time Spent with Patient Total time spent is greater than 50% in coordination of care (as documented) at patient's floor/unit and/or counseling patient: Internal Medicine: Result - Labs CBC & Chem 7: 04/14/18 04:18 04/14/18 04:18 Labs: Short CBC 04/13/18 Range/Units 07:54 WBC 13.1 H (4.3-11.1) K/mcL Hgb 10.2 L (11.5-15.4) g/dL Hct 33.7 L (35.3-44.9) % Plt Count 260 (140-400) K/mcL BMP 04/13/18 07:54 Sodium 129 L Potassium 5.7 H Chloride 99 Carbon Dioxide 17 L BUN 45 H Creatinine 4.28 H Glucose 158 H Calcium 8.5 L - ABG Interpretation ABG results: PT/INR, D-dimer PT 13.6 Seconds (9.4-12.1) H 04/08/18 05:06 - Impressions Impressions Catheter Change 04/12/18 00:00 IMPRESSION: Successful fluoroscopic guided exchange of a tunneled dialysis catheter on the left D/ / Wellington Hernandez MD / Wellington Hernandez MD Interpreting Provider: Wellington Hernandez MD Consult Discharge Plan - Plan Referrals: Macario Diallo MD [Primary Care Provider] - (1) UTI (urinary tract infection) Qualifiers: Urinary tract infection type: catheter-associated UTI Indwelling urinary catheter type: indwelling urethral catheter Encounter type: initial encounter Qualified Code(s): T83.511A - Infection and inflammatory reaction due to indwelling urethral catheter, initial encounter; N39.0 - Urinary tract infection , site not specified (4) CAD (coronary artery disease) Qualifiers: Coronary Disease-Associated Artery/Lesion type: [place] artery [place] vs. transplanted heart: [place] heart Associated angina: without angina Qualified Code(s): I25.10 - Atherosclerotic heart disease of [place] coronary artery without angina pectoris (5) Hemodialysis catheter dysfunction Qualifiers: Encounter type: initial encounter Qualified Code(s): T82.41XA - Breakdown ( mechanical) of vascular dialysis catheter, initial encounter (6) Diabetes mellitus Qualifiers: Diabetes mellitus type: type 2 Diabetes mellitus shelter insulin use: with terminal supervisor use Diabetes mellitus complication status: with unspecified complications Qualified Code(s): E11.8 - Type 2 diabetes mellitus with unspecified complications; Z79.4 - terminal supervisor (current) use of insulin (8) Anemia Qualifiers: Anemia type: due to chronic kidney disease Chronic kidney disease stage: on chronic dialysis Qualified Code(s): N18.6 - End stage renal disease; D63.1 - Anemia in chronic kidney disease; Z99.2 - Dependence on renal dialysis (10) GERD (gastroesophageal reflux disease) Qualifiers: Esophagitis presence: esophagitis presence not specified Qualified Code(s): K21.9 - Gastro-esophageal reflux disease without esophagitis
[2018-04-14 04:25] LABS: Bilirubin,Urine Negative (Negative); Blood,Urine Large (Negative); Clarity,Urine Turbid (Clear); Color,Urine Yellow (Yellow); Glucose,Urine (UA) Normal (Normal); Ketones,Urine 15 mg/dL (Negative); Leukocyte Esterase,Urine Large (Negative); Nitrite,Urine Negative (Negative); PH,Urine 6.5 pH Units (5.0-8.0); Protein,Urine >=1000 mg/dL (Neg-Trace); Specific Gravity,Urine 1.017 (1.010-1.025); Urobilinogen,Urine Normal (Normal)
[2018-04-14 04:26] LABS: Bacteria,Urine Present per hpf (None-Few); RBC,Urine Present per hpf (0-3); Squamous Epithelial Cell,Urine Present per lpf (None-Few); WBC,Urine TNTC per hpf (0-3)
[2018-04-14 04:44] LABS: Hematocrit 33.3 % (35.3-44.9); Hemoglobin 10.1 g/dL (11.5-15.4); Mean Corpuscular HGB Conc 30.3 g/dL (31.6-35.5); Mean Corpuscular Hemoglobin 25.7 pg (28.0-33.3); Mean Corpuscular Volume 84.7 fL (83.0-100.0); Mean Platelet Volume 8.8 fL (9.4-12.4); Platelet Count 243 K/mcL (140-400); Red Blood Count 3.93 M/mcL (3.82-4.97); Red Cell Distribution Width 16.4 % (11.5-14.5)
[2018-04-14 04:54] LABS: Calcium 8.2 mg/dL (8.6-10.3); Potassium 4.7 mEq/L (3.5-5.1)
--- NOTE | 2018-04-14 05:10 | Event Note ---
Date of Encounter: 04/14/18 Time of Encounter: 05:07 I was paged to beside by RN because patient was complain of funny feeling in her heart. When I arrived patient was agitated and furiously looking for her hearing aids. She had pain all over including her chest. She had had LHC in previous days indicating significant CAD. Cardiac: rate regular with murmur Resp: CTAB Vitals stable EKG T wave elevations with out acute ischemic changes- read with Dr Chery CMP: K 4.7 UA : urine sample was turbid and too dirty - repeat UA with cath - troponin ordered
[2018-04-14 05:34] LABS: Troponin I 0.49 ng/mL (< 0.04)
[2018-04-14] MEDS: *HR* Heparin 5,000 UNIT/ML VIAL SQ SCH ×3 (06:00→22:00)
[2018-04-14] MEDS: Insulin LISPRO 300 UNITS/3 ML VIAL SQ SCH ×6 (10:15→18:28)
[2018-04-14] MEDS: Isosorbide MONOnitrate (24 HR) 30 MG TAB.ER.24H PO SCH (10:28)
[2018-04-14] MEDS: Folic Acid 1 MG TABLET PO SCH (10:29)
[2018-04-14] MEDS: Lactobacillus 1 EACH CAP.SPRINK PO SCH (10:29)
[2018-04-14] MEDS: Aspirin Enteric Coated 81 MG Tablet PO SCH (10:29)
[2018-04-14] MEDS: Insulin DETEMIR 100 UNIT/ML X5UNITS SQ SCH ×2 (10:30→22:00)
[2018-04-14] MEDS: Magnesium Oxide 400 MG TABLET PO SCH ×2 (10:30→22:00)
[2018-04-14] MEDS: Cholecalciferol (D-3) 1,000 UNIT TABLET PO SCH (10:30)
[2018-04-14] MEDS: Renal Vitamin 1 CAP CAPSULE PO SCH (10:30)
[2018-04-14] MEDS: Metoprolol XL (24 HR) Succ 25 MG TAB.ER.24H PO SCH (10:30)
--- NOTE | 2018-04-14 13:43 | Nephrology Progress Note ---
Date of Encounter: 04/14/18 Time of Encounter: 10:00 - Assessment and Plan (1) End stage renal disease Current Visit: Yes Status: Chronic Patient on hemodialysis on TTS schedule Status post exchange of tunnel dialysis catheter Patient was able to have full hemodialysis session yesterday Plan for hemodialysis tomorrow if the patient is not transferred to [place] first (2) Hemodialysis catheter dysfunction Current Visit: Yes Status: Acute Status post tunneled dialysis catheter exchange Qualifiers: Encounter type: initial encounter Qualified Code(s): T82.41XA - Breakdown ( mechanical) of vascular dialysis catheter, initial encounter (3) Bacteremia Current Visit: Yes Status: Acute Anaerobic gram-negative rods in blood culture Continue antibiotics per primary team and ID (4) CAD (coronary artery disease) Current Visit: Yes Status: Acute Severe triple vessel disease per cardiology Patient will like transfer to [place] for second opinion on management Decision per primary team Qualifiers: Coronary Disease-Associated Artery/Lesion type: [place] artery [place] vs. transplanted heart: [place] heart Associated angina: without angina Qualified Code(s): I25.10 - Atherosclerotic heart disease of [place] coronary artery without angina pectoris Subjective Principal diagnosis: UTI, CAD Interval history: The patient is resting in bed at time of examination. Her grandson is with her at bedside at time of examination. She mentions that she has not eaten today and she is very upset by this. She says that she does not tend to be transferred to [place] for second opinion on heart procedure. She otherwise has no acute complaints. Objective - Vital Signs Vital signs: Vital Signs Temp Pulse Resp BP Pulse Ox 04/14/18 11:42 97.8 F 85 73 104/73 98 04/14/18 07:10 97.5 F L 76 16 114/63 100 04/14/18 03:19 97.6 F 105 16 147/76 100 04/14/18 00:01 98 F 75 14 91/41 99 04/13/18 19:25 98 F 100 15 91/50 99 04/13/18 16:55 97.0 F L 14 126/66 04/13/18 16:40 93/65 04/13/18 16:25 92/57 04/13/18 16:10 96/63 04/13/18 15:55 94/58 04/13/18 15:40 124/56 04/13/18 15:25 108/49 04/13/18 15:10 115/65 04/13/18 14:55 103/59 04/13/18 14:40 115/68 04/13/18 14:25 105/62 04/13/18 14:10 99/59 04/13/18 13:55 117/70 Intake and Output 04/13/18 04/14/18 04/14/18 23:59 07:59 15:59 Intake Total 0 / 0 Output Total 3600 / 3600 350 / 350 Balance -3600 / -3600 -350 / -350 Intake: Oral 0 / 0 Output: Urine 0 / 0 Total Dialysis (HD) Output 3600 / 3600 Catheter 350 / 350 Other: Meal NPO Percent of Meal Consumed 0% Blood Glucose* 163 187 Hemodialysis Net Fluid Removed 3000 (mL) - General Appearance Exam: Gen: Vitals noted. No acute distress. Frail-appearing elderly woman HEENT: Normocephalic, atraumatic Neck: Supple. No adenopathy. Cardiac: RRR, no murmur, +S1/S2 Pulmonary: Relatively clear to auscultation bilaterally with occasional wheezes dispersed throughout Abdomen: soft, very mild tenderness to palpation of the suprapubic region, no guarding Extremities: no BLE edema, nontender calf, no cyanosis or clubbing Dialysis access: Left subclavian tunneled catheter with no erythema surrounding : Madden catheter in place Neuro: moves all extremities, no focal deficits. A&Ox3 - Lab 04/14/18 04:18 04/14/18 04:18 Most recent lab results Calcium 8.2 mg/dL (8.6-10.3) L 04/14/18 04:18 Magnesium 1.9 mg/dL (1.6-2.6) 04/14/18 04:18 Consult Discharge Plan - Plan Referrals: Macario Diallo MD [Primary Care Provider] -
--- NOTE | 2018-04-14 17:37 | Electrocardiograph Report ---
[place] [id number] Test Date: 2018-04-14 Pat Name: Lisa Lacy Department: 109 Room: 2A Gender: F Tool Ch[employer]: : 1945 Requested By: Nimisha Ryder Order Number: [id number] Reading MD: Fawad Gutierrez Measurements Intervals [place] Rate: 83 P: 23 [place]: 169 QRS: 16 QRSD: 120 T: 205 QT: 385 QTc: 425 Interpretive Statements Sinus rhythm with sinus arrhythmia Inferior and anterolateral ST-T changes, consider ischemia Electronically Signed On 04-14-2018 17:36:01 EDT by Fawad Gutierrez
--- NOTE | 2018-04-14 21:55 | Internal Med Progress Note ---
Hospitalist Progress Note - Encounter Date of Encounter: 04/14/18 Time of Encounter: 19:00 - Subjective Interval History: SUBJECTIVE: The patient feels good. She is on room air oxygen. Denies chest pain, dyspnea , coughing and wheezing. Denies abdominal pain, nausea and vomiting. She makes small amounts of urine; to a gravity bag. She gets hemodialysis. OBJECTIVE: She is afebrile. Skin: Free of rash and discoloration. ENMT: Oral/pharyngeal mucosa is normal in appearance. Eyes: Sclera is white. There is no discharge from eyes. Respiratory: Normal breath sounds; no crackles or wheezes. CV: Heart is regular; no gallop or murmur. GI: Abdomen is soft and not tender. There is no palpable mass or visceromegaly. Neuro: There is no focal deficits. ASSESSMENT AND PLAN: The patient was admitted with UTI/sepsis. She is not getting any antibiotics at this time. Her WBC count from today is 9.4 thousand; 13.1 thousand yesterday. Her UA shows changes typical for UTI. Urine culture and culture from the tip of her hemodialysis catheter were taken yesterday. When treated for the above-mentioned, she developed atypical chest pain with mildly elevated troponins. Cardiology was consulted. Subsequently the patient got cardiac catheterization. She was found to have severe coronary artery disease. Cardiothoracic surgery was consulted. The patient would likely benefit from CABG surgery. This would be very high risk surgery. The patient has not been ambulating for the last 2 years. She is on hemodialysis program. Cardiology is recommended transfer to [facility] in [place], [place]. She is on Toprol-XL and Zocor/aspirin. I feel, that this patient is not a candidate for any high-risk cardiac procedures. She has been bedbound for about 2 years. She gets hemodialysis. She is noncompliant with medical treatments. 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 Under better control. We will continue diabetic diet, insulin Levemir and when necessary insulin Humalog. Hypertensive renal disease with end-stage renal disease. Under control. Will continue Toprol-XL. Anemia from chronic kidney disease. Her last hemoglobin is 10.2. End-stage renal disease on dialysis. Her malfunctioning hemodialysis catheter has been changed today. GERD. Under control. We will continue omeprazole. DISPOSITION: I discussed this case with nephrology. We will wait for the results of cultures , mentioned above. I discussed the situation with the patient and her grandson. - Exam Vitals: Temp Pulse Resp BP Pulse Ox 98.1 F 91 18 122/65 94 04/14/18 18:37 04/14/18 18:37 04/14/18 18:37 04/14/18 18:37 04/14/18 18:37 Exam: xxx - Assessment and Plan (1) UTI (urinary tract infection) Current Visit: Yes Status: Acute (2) Bacteremia Current Visit: Yes Status: Acute (3) Elevated troponin Current Visit: Yes Status: Acute (4) CAD (coronary artery disease) Current Visit: Yes Status: Acute (5) Hemodialysis catheter dysfunction Current Visit: Yes Status: Acute (6) Diabetes mellitus Current Visit: Yes Status: Chronic (7) Hypertensive renal disease with renal failure Current Visit: Yes Status: Chronic (8) Anemia Current Visit: Yes Status: Acute (9) ESRD on dialysis Current Visit: Yes Status: Chronic (10) GERD (gastroesophageal reflux disease) Current Visit: Yes Status: Chronic - Time Spent with Patient Total time spent is greater than 50% in coordination of care (as documented) at patient's floor/unit and/or counseling patient: 25 - 35 minutes Plan of Care Discussed with: family Internal Medicine: Result - Labs CBC & Chem 7: 04/14/18 04:18 04/14/18 04:18 Labs: Short CBC 04/14/18 Range/Units 04:18 WBC 9.4 (4.3-11.1) K/mcL Hgb 10.1 L (11.5-15.4) g/dL Hct 33.3 L (35.3-44.9) % Plt Count 243 (140-400) K/mcL BMP 04/14/18 04:18 Sodium 132 L Potassium 4.7 Chloride 98 Carbon Dioxide 22 L BUN 27 H Creatinine 2.95 H Glucose 197 H Calcium 8.2 L Cardiac Enzymes 04/14/18 Range/Units 04:18 Troponin I 0.49 H* (< 0.04) ng/mL Urine 04/14/18 Range/Units 04:06 Urine Color Yellow (Yellow) Urine Clarity Turbid A (Clear) Urine pH 6.5 (5.0-8.0) pH Units Ur Specific [place] 1.017 (1.010-1.025) Urine Protein >=1000 H (Neg-Trace) mg/dL Urine Glucose (UA) Normal (Normal) mg/dL - ABG Interpretation ABG results: PT/INR, D-dimer PT 13.6 Seconds (9.4-12.1) H 04/08/18 05:06 Consult Discharge Plan - Plan Referrals: Macario Diallo MD [Primary Care Provider] - (1) UTI (urinary tract infection) Qualifiers: Urinary tract infection type: catheter-associated UTI Indwelling urinary catheter type: indwelling urethral catheter Encounter type: initial encounter Qualified Code(s): T83.511A - Infection and inflammatory reaction due to indwelling urethral catheter, initial encounter; N39.0 - Urinary tract infection , site not specified (4) CAD (coronary artery disease) Qualifiers: Coronary Disease-Associated Artery/Lesion type: [place] artery [place] vs. transplanted heart: [place] heart Associated angina: without angina Qualified Code(s): I25.10 - Atherosclerotic heart disease of [place] coronary artery without angina pectoris (5) Hemodialysis catheter dysfunction Qualifiers: Encounter type: initial encounter Qualified Code(s): T82.41XA - Breakdown ( mechanical) of vascular dialysis catheter, initial encounter (6) Diabetes mellitus Qualifiers: Diabetes mellitus type: type 2 Diabetes mellitus intermediate insulin use: with termite control service representative use Diabetes mellitus complication status: with unspecified complications Qualified Code(s): E11.8 - Type 2 diabetes mellitus with unspecified complications; Z79.4 - senior living (current) use of insulin (8) Anemia Qualifiers: Anemia type: due to chronic kidney disease Chronic kidney disease stage: on chronic dialysis Qualified Code(s): N18.6 - End stage renal disease; D63.1 - Anemia in chronic kidney disease; Z99.2 - Dependence on renal dialysis (10) GERD (gastroesophageal reflux disease) Qualifiers: Esophagitis presence: esophagitis presence not specified Qualified Code(s): K21.9 - Gastro-esophageal reflux disease without esophagitis
[2018-04-15 05:46] LABS: Hemoglobin 9.2 g/dL (11.5-15.4); Mean Corpuscular HGB Conc 30.7 g/dL (31.6-35.5); Mean Corpuscular Hemoglobin 25.8 pg (28.0-33.3); Mean Corpuscular Volume 84.3 fL (83.0-100.0); Mean Platelet Volume 9.2 fL (9.4-12.4); Platelet Count 222 K/mcL (140-400); Red Blood Count 3.56 M/mcL (3.82-4.97); Red Cell Distribution Width 16.3 % (11.5-14.5)
[2018-04-15 06:11] LABS: Calcium 8.1 mg/dL (8.6-10.3); Potassium 4.6 mEq/L (3.5-5.1)
[2018-04-15] MEDS ORDERED: *HR* Heparin 10,000 UNIT/10 ML VIAL IV PRN (07:38)
[2018-04-15] MEDS ORDERED: 0.9 % Sodium Chloride 250 ML IVC PRN (07:38)
[2018-04-15] MEDS ORDERED: 0.9 % Sodium Chloride 1,000 ML PRIME SCH (07:45)
[2018-04-15] MEDS: Insulin LISPRO 300 UNITS/3 ML VIAL SQ SCH ×6 (11:36→18:05)
[2018-04-15] MEDS: Lactobacillus 1 EACH CAP.SPRINK PO SCH (11:37)
[2018-04-15] MEDS: Aspirin Enteric Coated 81 MG Tablet PO SCH (11:37)
[2018-04-15] MEDS: Folic Acid 1 MG TABLET PO SCH (11:37)
[2018-04-15] MEDS: Metoprolol XL (24 HR) Succ 25 MG TAB.ER.24H PO SCH (11:38)
[2018-04-15] MEDS: Cholecalciferol (D-3) 1,000 UNIT TABLET PO SCH (11:38)
[2018-04-15] MEDS: Renal Vitamin 1 CAP CAPSULE PO SCH (11:38)
[2018-04-15] MEDS: Magnesium Oxide 400 MG TABLET PO SCH (11:38)
[2018-04-15] MEDS: Insulin DETEMIR 100 UNIT/ML X5UNITS SQ SCH (12:10)
[2018-04-15] MEDS: Isosorbide MONOnitrate (24 HR) 30 MG TAB.ER.24H PO SCH ×2 (12:31→18:05)
--- NOTE | 2018-04-15 13:37 | Nephrology Progress Note ---
Date of Encounter: 04/15/18 Time of Encounter: 09:45 - Assessment and Plan (1) End stage renal disease Current Visit: Yes Status: Chronic Patient on hemodialysis on TTS schedule Status post exchange of tunnel dialysis catheter Patient had HD today without complication (2) Hemodialysis catheter dysfunction Current Visit: Yes Status: Acute Status post tunneled dialysis catheter exchange Qualifiers: Encounter type: initial encounter Qualified Code(s): T82.41XA - Breakdown ( mechanical) of vascular dialysis catheter, initial encounter (3) Bacteremia Current Visit: Yes Status: Acute Anaerobic gram-negative rods in blood culture Continue antibiotics per primary team and ID (4) CAD (coronary artery disease) Current Visit: Yes Status: Acute Severe triple vessel disease per cardiology Patient will like transfer to [place] for second opinion on management Decision per primary team Qualifiers: Coronary Disease-Associated Artery/Lesion type: [place] artery [place] vs. transplanted heart: [place] heart Associated angina: without angina Qualified Code(s): I25.10 - Atherosclerotic heart disease of [place] coronary artery without angina pectoris Subjective Principal diagnosis: UTI, CAD Interval history: The patient is seen and examined at hemodialysis today. She is in good spirits and still requests to be transferred to [place]. She has no acute complaints today. Objective - Vital Signs Vital signs: Vital Signs Temp Pulse Resp BP Pulse Ox 04/15/18 11:15 106/60 04/15/18 11:00 102/63 04/15/18 10:45 113/59 04/15/18 10:30 99/60 04/15/18 10:15 106/72 04/15/18 10:00 115/67 04/15/18 09:45 109/63 04/15/18 09:30 100/59 04/15/18 09:15 108/67 04/15/18 09:00 116/72 04/15/18 08:45 98.1 F 18 114/67 04/15/18 08:31 98.3 F 95 18 136/82 99 04/15/18 04:49 97.4 F L 80 14 104/56 94 04/14/18 23:57 98.4 F 89 14 137/74 98 04/14/18 18:37 98.1 F 91 18 122/65 94 04/14/18 15:45 98.2 F 86 19 114/65 97 Intake and Output 04/14/18 04/15/1818 23:59 07:59 15:59 Intake Total 320 / 320 600 / 600 Output Total 350 / 350 Balance 320 / 320 250 / 250 Intake: Oral 320 / 320 Intake, Rinseback and Flushes 600 / 600 Output: Catheter 350 / 350 Other: Weight 58 kg Blood Glucose* 375 179 Hemodialysis Net Fluid Removed 2170 (mL) - General Appearance Exam: Gen: Vitals noted. No acute distress. Frail-appearing elderly woman HEENT: Normocephalic, atraumatic Neck: Supple. No adenopathy. Cardiac: RRR, no murmur, +S1/S2 Pulmonary: Relatively clear to auscultation bilaterally with occasional wheezes dispersed throughout Abdomen: soft, very mild tenderness to palpation of the suprapubic region, no guarding Extremities: no BLE edema, nontender calf, no cyanosis or clubbing Dialysis access: Left subclavian tunneled catheter with no erythema surrounding : Madden catheter in place Neuro: moves all extremities, no focal deficits. A&Ox3 - Lab 04/15/18 05:31 04/15/18 05:31 Most recent lab results Calcium 8.1 mg/dL (8.6-10.3) L 04/15/18 05:31 Magnesium 1.9 mg/dL (1.6-2.6) 04/14/18 04:18 Consult Discharge Plan - Plan Referrals: Macario Diallo MD [Primary Care Provider] -
[2018-04-15 16:55] VITALS: BP 145/80
--- NOTE | 2018-04-15 17:26 | Discharge Summary ---
Orders not resulted at time of discharge: Pending orders 04/13/18 18:28 Culture,Urine [RM] Routine 04/14/18 04:06 Culture,Urine [RM] Routine 04/16/18 04:00 Basic Metabolic Panel AM 0400 CBC no Diff [Complete Blood Count w/o Diff] [HEME] AM 0400 Hepatitis B Surface Antibody AM 0400 Hepatitis B Surface Antigen AM 0400 04/17/18 04:00 Basic Metabolic Panel AM 0400 CBC no Diff [Complete Blood Count w/o Diff] [HEME] AM 0400 04/18/18 04:00 Basic Metabolic Panel AM 0400 CBC no Diff [Complete Blood Count w/o Diff] [HEME] AM 0400 04/19/18 04:00 Basic Metabolic Panel AM 0400 CBC no Diff [Complete Blood Count w/o Diff] [HEME] AM 0400 Date of Encounter: 04/15/18 Time of Encounter: 17:24 - Discharge Diagnosis (1) Elevated troponin Priority: Primary Status: Acute (2) CAD (coronary artery disease) Priority: Primary Status: Chronic Qualifiers: Coronary Disease-Associated Artery/Lesion type: [place] artery [place] vs. transplanted heart: [place] heart Associated angina: without angina Qualified Code(s): I25.10 - Atherosclerotic heart disease of [place] coronary artery without angina pectoris (3) UTI (urinary tract infection) Priority: Primary Status: Acute Qualifiers: Urinary tract infection type: catheter-associated UTI Indwelling urinary catheter type: indwelling urethral catheter Encounter type: initial encounter Qualified Code(s): T83.511A - Infection and inflammatory reaction due to indwelling urethral catheter, initial encounter; N39.0 - Urinary tract infection , site not specified (4) Hemodialysis catheter dysfunction Priority: Secondary Status: Resolved Qualifiers: Encounter type: initial encounter Qualified Code(s): T82.41XA - Breakdown ( mechanical) of vascular dialysis catheter, initial encounter (5) Diabetes mellitus Priority: Secondary Status: Chronic Qualifiers: Diabetes mellitus type: type 2 Diabetes mellitus [facility] insulin use: with [facility] use Diabetes mellitus complication status: with unspecified complications Qualified Code(s): E11.8 - Type 2 diabetes mellitus with unspecified complications; Z79.4 - logistics officer (current) use of insulin (6) Hypertensive renal disease with renal failure Priority: Secondary Status: Chronic (7) Anemia Priority: Secondary Status: Chronic Qualifiers: Anemia type: due to chronic kidney disease Chronic kidney disease stage: on chronic dialysis Qualified Code(s): N18.6 - End stage renal disease; D63.1 - Anemia in chronic kidney disease; Z99.2 - Dependence on renal dialysis (8) ESRD on dialysis Priority: Secondary Status: Chronic (9) GERD (gastroesophageal reflux disease) Priority: Secondary Status: Chronic Qualifiers: Esophagitis presence: esophagitis presence not specified Qualified Code(s) : K21.9 - Gastro-esophageal reflux disease without esophagitis Hospital course: This is a 72-year-old woman, who has had long-standing end-stage renal disease on hemodialysis. She has had long-standing history of her type 2 diabetes mellitus, hypertension, GERD and hyperlipidemia. She was not diagnosed with any form of coronary artery disease before this hospitalization. At the time of admission she reported to us at 2 week history of her intermittent nausea and vomiting; associated with some sore throat and nonproductive cough. We found her to have very cloudy urine; UA suggested diagnosis of UTI; "dirty urine". The catheter was put in about 3 months before this hospitalization; the last time it was changed 2 weeks before this hospital stay. We diagnosed her with her UTI; she likely had mild sepsis at admission (WBC of 11.1 thousand with heart rate of 99). The patient got IV fluids. She was initially on IV Rocephin; switched to IV Levaquin under the next day. A few days into this hospitalization she developed mild chest discomfort. We ordered troponins. They were 0.86, 0.69 and 0.80. EKG showed normal findings. The patient was put on IV heparin drip. Cardiology was consulted. They initially suspected her to have her demand ischemia. Echo has been done; LV of 35-40%. When the patient got better cardiology decided to do a cardiac catheterization ( she has had multiple risk factors for CAD). The test showed severe coronary artery disease. 60% obstruction of her left main, 95% of circumflex, 99% of the mid right coronary artery and 60% of LAD. Those findings were presented initially to interventional cardiology. The patient was subsequently referred to cardiac surgery. Eventually cardiology and cardiac surgery decided to refer this patient to a tertiary center for PCIthe patient is considered high risk. He CONDITION AT DISCHARGE: The patient feels good today. Her sore throat subsided. Denies chest pain and difficulty breathing. Denies coughing and wheezing. Denies abdominal pain, nausea and vomiting. Madden catheter stays in; it drained small amounts of normal color urine. In addition to her end-stage renal disease/hemodialysis she has been bedbound due to physical inactivity for about 2 years. Her urine remains "dirty". However, she has not had any fever or chills for the last few days. Her WBC count is normal in the last 2 days. Her urine culture from 04/14/18 is growing gram-positive cocci. She is currently not taking any antibiotics. Skin: Free of rash and discoloration. Respiratory: Normal breath sounds with no crackles and wheezes bilaterally. CV: Heart is regular with no gallop or murmur. GI: Abdomen is flat and soft with no palpable mass or visceromegaly. Neuro exam: There is no focal deficits. Normal speech, swallowing and gait. I talked to [facility] in [facility]. The patient is accepted for high risk PCI. SEE MEDICATIONS AT THE TIME OF TRANSFER. Discharge discussed with: patient, family, nurse, case management - Time Spent with Patient Total time spent providing and/or coordinating discharge services: Greater than 30 minutes (60 minutes) - Discharge Medications Home Medications: Metoprolol [Lopressor] 12.5 mg PO BID 03/01/16 [History] Aspirin Enteric Coated [Aspirin EC] 81 mg PO DAILY 08/04/17 [History] Oxygen 2 l NS AD 08/04/17 [History] Ferrous Sulfate 325 mg PO BID 10/28/17 [History] Pravastatin Sodium [Pravachol] 10 mg PO HS 10/28/17 [History] Cholecalciferol (Vitamin D3) [Vitamin D3] 1,000 unit PO DAILY 11/16/17 [History] Insulin Glargine,Hum.rec.anlog [Basaglar Kwikpen U-100] 40 unit SQ HS 11/16/17 [ History] Folic Acid 1 mg PO DAILY 30 Days #30 tab 01/08/18 [Rx] Lactobacillus [Culturelle] 2 each PO DAILY cap.sprink 01/08/18 [Rx] Renal Vitamin [Renal Caps Softgel] 1 mg PO DAILY 30 Days #30 capsule 01/08/18 [ Rx] Omeprazole 20 mg PO DAILY #14 tablet. 03/19/18 [Rx] Allergies/Adverse Reactions: 3 Allergy/AdvReac Type Severity Reaction Status Date / Time acetaminophen [From Tylenol] Allergy See Verified 12/22/17 19:03 Comments Influenza Virus Vaccines Allergy See Verified 12/22/17 19:03 Comments NSAIDS (Non-Steroidal Allergy See Verified 02/05/18 02:56 Anti-Inflamma Comments Date of admission: 04/09/18 12:02 Primary care physician: Macario Diallo MD Consults: 04/09/18 13:20 Consult to Infectious Diseases [CONS] Routine Consulting Provider: Infectious Disease [place] Reason for Consult: Gram -ve rods bacteremia. Call Completed: No 04/10/18 07:45 Consult to Dialysis [CONS] ONCE 04/10/18 08:00 Consult to Dialysis [CONS] ONCE 04/11/18 10:11 Consult to Machine Shop Instructor [CONS] Routine Reason for SW Consult: D/C planning 04/11/18 15:54 Consult to Machine Shop Instructor [CONS] Routine Reason for SW Consult: DC planning 04/12/18 09:55 Consult to Cardiac Rehabilitation-Phase1 [CONS] Routine Comment: Reason for Consult: elevated trop, decreased EF, possible NSTEMI type I vs Type II Call Completed: No 04/12/18 10:34 Consult to Interventional Radiology [CONS] Routine Consulting Provider: Radiology Interventional Cols Reason for Consult: New HD access. Current access not functional Time Notified: 10:34 Call Completed: Yes 04/12/18 11:21 Consult to Interventional Radiology [CONS] Routine Consulting Provider: Radiology Interventional Cols Reason for Consult: HD cathetergram and possible exchange Time Notified: 11:21 Call Completed: Yes 04/13/18 12:30 Consult to Dialysis [CONS] ONCE Discharging clinician: Salvador Carcamo Anticipated date of discharge: 04/15/18 - Constitutional Vitals: Temp Pulse Resp BP Pulse Ox 98.2 F 92 19 145/80 99 04/15/18 16:54 04/15/18 16:54 04/15/18 16:54 04/15/18 16:54 04/15/18 16:54 General appearance: Present: A&O X 3, no acute distress, answers questions appropriately Exam: xxx - Patient Status Disposition: Transfer Other Condition: Fair - Discharge Instructions Follow Up With: Macario Diallo MD [Primary Care Provider] - Additional Instructions: See Discharge Summary.. - Diet and Activity Activity: as per physical therapy Diet: diabetic diet - VTE Deep Vein Thrombosis/Pulmonary Embolism Present on Admission: No
[2018-04-15] MEDS: *HR* Heparin 5,000 UNIT/ML VIAL SQ SCH (18:05)
== END 2018-04-15 18:51 | disposition other institution (70) | DRG 280 ==
LOC: EMEROOARM 09:17 → 2ANU 09:17 → SUATTDRO 12:24 → 2ANU 13:24 → SUATTDRO 04-09 12:02
PROVIDERS: ADMIT Internal Medicine; ATTEND Internal Medicine

== ENCOUNTER 2018-05-28 04:14 | Observation (INO) ==
--- NOTE | 2018-05-28 04:57 | Emergency Department Note ---
Disposition Clinical Impression: ESRD (end stage renal disease) Chest pain Qualifiers: Chest pain type: unspecified Qualified Code(s): R07.9 - Chest pain, unspecified Disposition: Admitted As Inpatient Condition: Fair Time of Disposition: 06:58 Chest Pain HPI - General Chief Complaint: ED Chest Pain Stated Complaint: Chest Pain Time Seen by Provider: 05/28/18 04:38 Source: patient, EMS Limitations: no limitations Vital Signs Reviewed: Yes Nursing Notes Reviewed: Yes - History of Present Illness HPI Narrative: 72-year-old female presents from home for evaluation of substernal chest heaviness. Onset approximately 12 hours prior to arrival. She has associated nausea with vomiting. Pain is nonradiating. No dyspnea or diaphoresis. No chest pain at this time. Patient is end-stage renal disease on dialysis. 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 Dialysed . Thu Sat. She completed 's dialysis. ROS: Positive: As above Negative: Fever, chills, palpitations, unusual back pain, abdominal pain Severity scale (1-10): 0 - Related Data Home Medications Medication Instructions Recorded Confirmed Metoprolol [Lopressor] 12.5 mg PO BID 03/01/16 04/07/18 Aspirin Enteric Coated [Aspirin EC] 81 mg PO DAILY 08/04/17 04/07/18 Oxygen 2 l NS AD 08/04/17 04/07/18 Ferrous Sulfate 325 mg PO BID 10/28/17 04/07/18 Pravastatin Sodium [Pravachol] 10 mg PO HS 10/28/17 04/07/18 Cholecalciferol (Vitamin D3) 1,000 unit PO DAILY 11/16/17 04/07/18 [Vitamin D3] Insulin Glargine,Hum.rec.anlog 40 unit SQ HS 11/16/17 04/07/18 [Basaglar Kwikpen U-100] Previous Rx's Medication Instructions Recorded Folic Acid 1 mg PO DAILY 30 Days #30 tab 01/08/18 Lactobacillus [Culturelle] 2 each PO DAILY cap.sprink 01/08/18 Renal Vitamin [Renal Caps Softgel] 1 mg PO DAILY 30 Days #30 capsule 01/08/18 Omeprazole 20 mg PO DAILY #14 tablet. 03/19/18 Levofloxacin [Levaquin] 500 mg PO DAILY #2 tablet 05/11/18 Allergies Allergy/AdvReac Type Severity Reaction Status Date / Time acetaminophen [From Tylenol] Allergy See Verified 05/28/18 04:24 Comments Influenza Virus Vaccines Allergy See Verified 05/28/18 04:24 Comments NSAIDS (Non-Steroidal Allergy See Verified 05/28/18 04:24 Anti-Inflamma Comments All systems ED: reviewed and negative except as stated. Review of Systems: As Per HPI Chest Pain PMH - Past Medical History Medical history: Reports: diabetes, hyperlipidemia, hypertension, renal disease, other Surgical history: Reports: appendectomy, cholecystectomy, hysterectomy Psychiatric history: Reports: anxiety [employer] history: Reports: no [employer] history - Social History Smoking Status: Former smoker Alcohol use: Reports: none Drug use: Reports: none Physical Exam Vital Signs Reviewed General: Patient is alert, oriented, and in no acute distress. Head: atraumatic, normocephalic Eye: normal appearance, PERRL, EOMI, no scleral icterus, no conjunctival inje ction ENT: mucous membranes moist, normal external ear exam Neck: normal inspection, trachea midline, full ROM Chest: normal inspection, symmetric chest rise Respiratory: Poor respiratory effort. Bilateral breath sounds are clear without wheezing, crackles, or rhonchi. Cardiovascular: Regular rate and rhythm. No clicks, rubs, gallops, or murmors. Normal heart sounds. Abdomen: Bowel sounds present normoactive x-4 quadrants. Abdomen is soft, nondistended, and nontender. No guarding or rebound. Musculoskeletal: Spontaneously moving all extremities. Skin: warm, dry, intact. Neuro: Alert and oriented x4. Sensation light touch intact. Psych: Patient's affect is appropriate for situation. - General Limitations: no limitations General appearance: alert Course Course Narrative: EKG is concerning for diffuse T-wave inversions however is her present on comparative EKG. Patient has no chest pain on intake when EKG was performed. Workup is pending. EKG shows no acute changes. Chest x-ray shows no acute changes. Hemoglobin shows anemia at 7.9. Her historic comparison values vary. Troponin is 0.11. Given patient has end-stage renal disease on dialysis, patient's baseline levels very. Will need to trend to rule out NSTEMI. I discussed the above with the admitting hospitalist. Requests consultation to cardiology and nephrology. Patient provided aspirin. She is chest pain-free; no need for nitroglycerin. EKG dated 05/28/18 at 04:36 interpreted as sinus rhythm with rate of 74. IL 175, QRS 114, QTC 41. Normal axis. Diffuse T-wave inversions. Compared to pre vious EKG dated 04/14/2018 also showing diffuse T-wave inversions. Patient has no chest pain at this time. Chest X-Ray 05/28/18 04:39 IMPRESSION: Stable exam without acute focal process. Stable biapical scarring. D/ / Stevo Pastrana MD / Stevo Pastrana MD Interpreting Provider: Stevo Pastrana MD Vital Signs Temperature 97.9 F 05/28/18 04:25 Pulse Rate 76 05/28/18 04:25 Respiratory Rate 16 05/28/18 04:25 Blood Pressure 95/57 05/28/18 04:25 O2 Sat by Pulse Oximetry 100 05/28/18 04:25 Temperature 97.9 F 05/28/18 04:25 Pulse Rate 76 05/28/18 05:16 Respiratory Rate 18 05/28/18 05:16 Blood Pressure 90/52 05/28/18 05:16 O2 Sat by Pulse Oximetry 100 05/28/18 05:16 Oxygen Delivery Oxygen Delivery Nasal Cannula Chest Pain - Lab Data Result diagrams: 05/28/18 04:50 05/28/18 04:50 Lab Results 05/28/18 05/28/18 05/28/18 Range/Units 04:50 04:50 04:50 WBC 13.1 H (4.3-11.1) K/mcL RBC 3.08 L (3.82-4.97) M/mcL Hgb 7.9 L (11.5-15.4) g/dL Hct 26.6 L (35.3-44.9) % MCV 86.4 (83.0-100.0) fL MCH 25.6 L (28.0-33.3) pg MCHC 29.7 L (31.6-35.5) g/dL RDW 21.4 H (11.5-14.5) % Plt Count 293 (140-400) K/mcL MPV 9.7 (9.4-12.4) fL Immature Gran % 0.6 (0-4) % Seg Neutrophils % 76.9 % Lymphocytes % 16.0 % Monocytes % 6.2 % Eosinophils % 0.1 % Basophils % 0.2 % Neutrophils # 10.1 H (1.6-8.9) K/mcL Lymphocytes # 2.1 (0.6-4.6) K/mcL Monocytes # 0.8 (0.0-1.3) K/mcL Eosinophils # 0.0 (0.0-0.6) K/mcL Basophils # 0.0 (0.0-0.2) K/mcL PT 15.9 H (9.4-12.1) Seconds INR 1.4 APTT 30.0 (26.0-36.0) Seconds Sodium 128 L (136-145) mEq/L Potassium 5.0 (3.5-5.1) mEq/L Chloride 94 L (98-107) mEq/L Carbon Dioxide 27 (23-29) mEq/L BUN 20 (8-23) mg/dL Creatinine 2.36 H (0.60-1.20) mg/dL Est GFR ( Amer) 24 L (> 60) Est GFR (Non-Af Amer) 20 L (> 60) BUN/Creatinine Ratio 8 (6-26) Glucose 407 H (70-105) mg/dL Calculated Osmolality 286 (280-300) Calcium 8.2 L (8.6-10.3) mg/dL Troponin I 0.11 H* (< 0.04) ng/mL Lipase 5 L (11-82) Units/L Heart Score - Score History: Slightly Suspicious EKG: Non Specific repolarisation Disturbance Age: Greater than 65 Risk Factors: Equal/Greater than 3 risk factor or history of atherosclerotic disease Troponin: Greater than 3x normal limit HEART Score Total: 7
[2018-05-28 05:18] LABS: Basophils % 0.2 %; Eosinophils % 0.1 %; Hematocrit 26.6 % (35.3-44.9); Hemoglobin 7.9 g/dL (11.5-15.4); Immature Granulocytes % 0.6 % (0-4); Lymphocytes # 2.1 K/mcL (0.6-4.6); Mean Corpuscular HGB Conc 29.7 g/dL (31.6-35.5); Mean Corpuscular Hemoglobin 25.6 pg (28.0-33.3); Mean Corpuscular Volume 86.4 fL (83.0-100.0); Mean Platelet Volume 9.7 fL (9.4-12.4); Monocytes # 0.8 K/mcL (0.0-1.3); Monocytes % 6.2 %; Neutrophils # 10.1 K/mcL (1.6-8.9); Platelet Count 293 K/mcL (140-400); Red Blood Count 3.08 M/mcL (3.82-4.97); Red Cell Distribution Width 21.4 % (11.5-14.5); Segmented Neutrophils % 76.9 %
[2018-05-28 05:20] LABS: INR 1.4; Prothrombin Time 15.9 Seconds (9.4-12.1)
[2018-05-28 05:29] LABS: Calcium 8.2 mg/dL (8.6-10.3)
[2018-05-28 05:38] LABS: Troponin I 0.11 ng/mL (< 0.04)
[2018-05-28] MEDS ORDERED: Aspirin 325 MG TABLET PO ONE (06:53)
--- NOTE | 2018-05-28 07:28 | Event Note ---
Date of Encounter: 05/28/18 Time of Encounter: 07:25 Nephrology Chart Review I found this pt on my list, and started to review her chart: ESRD on HD TTS. I reviewed her outpt [facility] dialysis run sheets via the Topic mobile [facility] and see that she completed HD yesterday (). So I'll plan to see this pt for a full consult and next dialysis tomorrow (Thursday). Thank you.
--- NOTE | 2018-05-28 07:50 | Emergency Department Note ---
Disposition Clinical Impression: ESRD (end stage renal disease) Chest pain Qualifiers: Chest pain type: unspecified Qualified Code(s): R07.9 - Chest pain, unspecified Disposition: Admitted As Inpatient Condition: Fair General Adult HPI - General Chief complaint: ED Chest Pain Stated complaint: Chest Pain Time Seen by Provider: 05/28/18 04:38 Source: patient, EMS Limitations: no limitations Nursing Notes Reviewed: Yes Vital Signs Reviewed: Yes - History of Present Illness Pain Scale: 0 - Related Data Home Medications Medication Instructions Recorded Confirmed Metoprolol [Lopressor] 12.5 mg PO BID 03/01/16 04/07/18 Aspirin Enteric Coated [Aspirin EC] 81 mg PO DAILY 08/04/17 04/07/18 Oxygen 2 l NS AD 08/04/17 04/07/18 Ferrous Sulfate 325 mg PO BID 10/28/17 04/07/18 Pravastatin Sodium [Pravachol] 10 mg PO HS 10/28/17 04/07/18 Cholecalciferol (Vitamin D3) 1,000 unit PO DAILY 11/16/17 04/07/18 [Vitamin D3] Insulin Glargine,Hum.rec.anlog 40 unit SQ HS 11/16/17 04/07/18 [Basaglar Kwikpen U-100] Previous Rx's Medication Instructions Recorded Folic Acid 1 mg PO DAILY 30 Days #30 tab 01/08/18 Lactobacillus [Culturelle] 2 each PO DAILY cap.sprink 01/08/18 Renal Vitamin [Renal Caps Softgel] 1 mg PO DAILY 30 Days #30 capsule 01/08/18 Omeprazole 20 mg PO DAILY #14 tablet. 03/19/18 Levofloxacin [Levaquin] 500 mg PO DAILY #2 tablet 05/11/18 Allergies Allergy/AdvReac Type Severity Reaction Status Date / Time acetaminophen [From Tylenol] Allergy See Verified 05/28/18 04:24 Comments Influenza Virus Vaccines Allergy See Verified 05/28/18 04:24 Comments NSAIDS (Non-Steroidal Allergy See Verified 05/28/18 04:24 Anti-Inflamma Comments Past Medical History - Past Medical History Medical history: Reports: diabetes, hyperlipidemia, hypertension, renal disease, other Surgical history: Reports: appendectomy, cholecystectomy, hysterectomy Psychiatric history: Reports: anxiety [employer]ING [employer]BS[employer] history: 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 - Social History Smoking Status: Former smoker Smokeless Tobacco Status: No Alcohol use: Reports: none Drug use: Reports: none Physical Exam - General Limitations: no limitations General appearance: alert Course Vital Signs Temperature 97.9 F 05/28/18 04:25 Pulse Rate 76 05/28/18 04:25 Respiratory Rate 16 05/28/18 04:25 Blood Pressure 95/57 05/28/18 04:25 O2 Sat by Pulse Oximetry 100 05/28/18 04:25 Temperature 97.9 F 05/28/18 04:25 Pulse Rate 76 05/28/18 05:16 Respiratory Rate 18 05/28/18 05:16 Blood Pressure 90/52 05/28/18 05:16 O2 Sat by Pulse Oximetry 100 05/28/18 05:16 Oxygen Delivery Oxygen Delivery Nasal Cannula Medical Decision Making - Medical Records Medical records reviewed: Yes I reviewed the patient's medical records. - Lab Data Lab results reviewed: Yes I reviewed the patient's lab results. Result diagrams: 05/28/18 04:50 05/28/18 04:50 Lab Results 05/28/18 05/28/18 05/28/18 Range/Units 04:50 04:50 04:50 WBC 13.1 H (4.3-11.1) K/mcL RBC 3.08 L (3.82-4.97) M/mcL Hgb 7.9 L (11.5-15.4) g/dL Hct 26.6 L (35.3-44.9) % MCV 86.4 (83.0-100.0) fL MCH 25.6 L (28.0-33.3) pg MCHC 29.7 L (31.6-35.5) g/dL RDW 21.4 H (11.5-14.5) % Plt Count 293 (140-400) K/mcL MPV 9.7 (9.4-12.4) fL Immature Gran % 0.6 (0-4) % Seg Neutrophils % 76.9 % Lymphocytes % 16.0 % Monocytes % 6.2 % Eosinophils % 0.1 % Basophils % 0.2 % Neutrophils # 10.1 H (1.6-8.9) K/mcL Lymphocytes # 2.1 (0.6-4.6) K/mcL Monocytes # 0.8 (0.0-1.3) K/mcL Eosinophils # 0.0 (0.0-0.6) K/mcL Basophils # 0.0 (0.0-0.2) K/mcL PT 15.9 H (9.4-12.1) Seconds INR 1.4 APTT 30.0 (26.0-36.0) Seconds Sodium 128 L (136-145) mEq/L Potassium 5.0 (3.5-5.1) mEq/L Chloride 94 L (98-107) mEq/L Carbon Dioxide 27 (23-29) mEq/L BUN 20 (8-23) mg/dL Creatinine 2.36 H (0.60-1.20) mg/dL Est GFR ( Amer) 24 L (> 60) Est GFR (Non-Af Amer) 20 L (> 60) BUN/Creatinine Ratio 8 (6-26) Glucose 407 H (70-105) mg/dL Calculated Osmolality 286 (280-300) Calcium 8.2 L (8.6-10.3) mg/dL Troponin I 0.11 H* (< 0.04) ng/mL Lipase 5 L (11-82) Units/L - Radiology Data Radiology results reviewed: Yes I reviewed the patient's radiology results. Chest X-Ray 05/28/18 04:39 IMPRESSION: Stable exam without acute focal process. Stable biapical scarring. D/ / Stevo Pastrana MD / Stevo Pastrana MD Interpreting Provider: Stevo Pastrana MD - EKG Data EKG #1 EKG attestation: Yes I reviewed and interpreted this EKG. EKG results narrative: EKG shows a normal sinus rhythm with ventricular rate of 78. Diffuse ST segment depression however is not significantly changed from prior EKG dated 04/14/2018. Attestation Statement - Attestation Attestation: I, Charles Michaels MD, personally evaluated this patient and discussed their management with the resident physician. I reviewed the resident's note and agree with the documented findings, medical decision making, and plan of care. 72-year-old female with end-stage renal disease on hemodialysis presents to the emergency department with a complaint of some mid substernal chest pain which started yesterday afternoon. She states the pain lasted about 12 hours but is now resolved. No radiation of the pain. No shortness of breath or diaphoresis. Patient did have her dialysis yesterday. On examination patient is a well-developed well-nourished elderly female in no acute distress. She is alert and oriented 3. There is no cyanosis or diaphoresis. There is some tenderness palpation over the mid anterior chest wall. Breath sounds are decreased but equal bilaterally. Heart regular. Abdomen soft and nontender. EKG shows normal sinus rhythm with some diffuse ST depressions however not significantly changed from prior EKG. No acute abnormality on chest x-ray. Labs reviewed. Troponin elevated at 0.11 however patient's troponin is normally elevated due to her renal disease and her last for troponins over the past 6-8 weeks have ranged from 0.49 to 0.86. The hospitalist, Dr. De La Fuente, was consulted and accepted admission of the patient.
--- NOTE | 2018-05-28 08:38 | Internal Med History&Physical ---
Date of Encounter: 05/28/18 Time of Encounter: 08:38 Internal Medicine - H&P: HPI Chief complaint: chest pain History of present illness: Ms. Lacy is a 72 year old female with a past medical history of severe 3V CAD who presents from home for evaluation of 12 hour history of radiating substernal chest heaviness associated nausea with vomiting. The patient denies shortness of breath, diaphoresis, palpitation, orthopnea, paroxysmal nocturnal dyspnea. He was evaluated by the ER staff and his cardiac enzymes was obtained and revealed elevated troponin of 0.11. patient was admitted for further evaluation and management. Past Med Surg Social Fam HX - Past Medical History Medical history: diabetes, hyperlipidemia, hypertension, renal disease, other Additional medical history: UTI, electrolyte imbalances, ESRD, pancytopenia, CDiff 2016, hydronephrosis, pneumonia, urinary retention/obstructive uropathy, diabetic foot ulcer Psychiatric history: anxiety - Past Surgical History Surgical History: appendectomy, cholecystectomy, hysterectomy Additional surgical history: cholecystectomy and appendectomy? - Social History Smoking Status: Former smoker Smokeless Tobacco Status: No Alcohol use: none Drug use: none - Family History Father Living Status: Hx Family Cardiac Disorders: Yes Mother Living Status: Hx Family Cardiac Disorders: Yes Internal Medicine - H&P: Meds RX: Aspirin Enteric Coated [Aspirin EC] 81 mg PO DAILY 08/04/17 [History] RX: Oxygen 2 l NS AD 08/04/17 [History] RX: Ferrous Sulfate 325 mg PO BID 10/28/17 [History] RX: Cholecalciferol (Vitamin D3) [Vitamin D3] 1,000 unit PO DAILY 11/16/17 [History] RX: Insulin Glargine,Hum.rec.anlog [Basaglar Kwikpen U-100] 40 unit SQ HS 11/16/17 [History] RX: Folic Acid 1 mg PO DAILY 30 Days #30 tab 01/08/18 [Rx] RX: Renal Vitamin [Renal Caps Softgel] 1 mg PO DAILY 30 Days #30 capsule 01/08/18 [Rx] RX: Omeprazole 20 mg PO DAILY #14 tablet. 03/19/18 [Rx] RX: Atorvastatin [Lipitor] 40 mg PO HS 05/28/18 [History] RX: Clopidogrel [Plavix] 75 mg PO DAILY 05/28/18 [History] RX: Insulin ASPART [Novolog Flexpen] 10 unit SQ TID PRN 05/28/18 [History] RX: Isosorbide MONOnitrate (24 HR) [Imdur] 30 mg PO DAILY 05/28/18 [History] RX: Metoprolol Succinate [Toprol Xl] 25 mg PO DAILY 05/28/18 [History] RX: Zinc Oxide/Petrolatum,White [Remedy Phytoplex Z-Guard Paste] 113 gm TP DAILY 05/28/18 [History] RX: hydrALAZINE [HydrALAZINE] 10 mg PO Q8H 05/28/18 [History] Allergy/AdvReac Type Severity Reaction Status Date / Time acetaminophen [From Tylenol] Allergy See Verified 05/28/18 04:24 Comments Influenza Virus Vaccines Allergy See Verified 05/28/18 04:24 Comments NSAIDS (Non-Steroidal Allergy See Verified 05/28/18 04:24 Anti-Inflamma Comments All Systems PM: A 10-system review of systems was performed and is negative for pertinent findings except as documented above in the HPI. - Constitutional Constitutional: no chills, no fever(s), no night sweats - Cardiovascular Cardiovascular ROS IM: chest pain, no diaphoresis, no dyspnea, no lighth eadedness, no palpitations, no syncope - Respiratory Respiratory: no cough, no dyspnea, no wheezing, no excessive phlegm production - Gastrointestinal Gastrointestinal: nausea, vomiting, no abdominal pain, no diarrhea, no hematemesis, no hematochezia, no melena - Genitourinary Genitourinary: no change in urinary stream, no dysuria, no flank pain, no hematuria - Neurological Neurological ROS: no confusion, no convulsions, no focal weakness, no numbness, no tingling, no tremor(s) - Constitutional Vitals: Temp Pulse Resp BP Pulse Ox 97.9 F 76 18 87/49 100 05/28/18 04:25 05/28/18 05:16 05/28/18 07:57 05/28/18 07:57 05/28/18 05:16 General appearance: Present: A&O X 3 Exam: As below - Head Head exam: Present: atraumatic, normocephalic - Neck Neck exam general surgery: Present: supple, trachea midline. Absent: lymphadenopathy - Respiratory Respiratory exam: Present: CTAB. Absent: accessory muscle use, rales, rhonchi, wheezes - Cardiovascular Cardiovascular exam: Present: RRR, +S1, +S2. Absent: diastolic murmur, gallop, rubs, systolic murmur - GI/Abdominal GI/Abdominal exam: Present: normal bowel sounds, soft, no peritoneal signs. Absent: distended, tenderness - Extremities Exam Extremities exam: Present: warm, radial pulses palpable and symmetrical. Absent: calf tenderness, cyanotic, pedal edema Internal Med - H&P Results - Labs CBC & Chem 7: 05/29/18 05:18 05/29/18 05:18 Labs: Short CBC 05/28/18 Range/Units 04:50 WBC 13.1 H (4.3-11.1) K/mcL Hgb 7.9 L (11.5-15.4) g/dL Hct 26.6 L (35.3-44.9) % Plt Count 293 (140-400) K/mcL Neutrophils # 10.1 H (1.6-8.9) K/mcL BMP 05/28/18 04:50 Sodium 128 L Potassium 5.0 Chloride 94 L Carbon Dioxide 27 BUN 20 Creatinine 2.36 H Glucose 407 H Calcium 8.2 L Cardiac Enzymes 05/28/18 Range/Units 04:50 Troponin I 0.11 H* (< 0.04) ng/mL - Impressions ITS Impressions Chest X-Ray 05/28/18 04:39 IMPRESSION: Stable exam without acute focal process. Stable biapical scarring. D/ / Stevo Pastrana MD / Stevo Pastrana MD Interpreting Provider: Stevo Pastrana MD - Assessment and plan (1) Chest pain Status: Acute Assessment and plan: Chest pain , elevated troponin. The patient has significant cardiac history, he status post left heart catheter in 2018 that revealed severe 3V CAD and medical management was recommended. PLAN: - cardiac enzymes x 2 q 8 hr - EKG now and in AM - ASA - O2 by NC to keep SpO2 greater than 92% - CBCD, BMP in AM - Fasting lipids - Tylenol 650 mg PO q 4-6 hr PRN headache - Heparin 5000 U SQ BID - 2D Echo - Cardiology consult Qualifiers: Chest pain type: unspecified Qualified Code(s): R07.9 - Chest pain, unspecified (2) Anemia in chronic renal disease Status: Chronic Assessment and plan: Nephrology was consulted for further management of ESAs administration and adjustment Qualifiers: Chronic kidney disease stage: stage 4 (severe) Qualified Code(s): N18.4 - Chronic kidney disease, stage 4 (severe); D63.1 - Anemia in chronic kidney disease; D63.1 - Anemia in chronic kidney disease (3) IDDM (insulin dependent diabetes mellitus) Status: Chronic Assessment and plan: We will continue home medication and start the patient and insulin sliding scale with moderate coverage (4) HTN (hypertension) Status: Chronic Assessment and plan: We will continue home meds and adjust regimen if indicated Qualifiers: Hypertension type: essential hypertension Qualified Code(s): I10 - Essential (primary) hypertension (5) HLD (hyperlipidemia) Status: Chronic Assessment and plan: We will obtain fasting lipid profile in a.m. and continue home statin Qualifiers: Hyperlipidemia type: unspecified Qualified Code(s): E78.5 - Hyperlipidemia, unspecified (6) ESRD (end stage renal disease) on dialysis Status: Chronic Assessment and plan: The patient is dialysis dependent on hemodialysis Thursday, nephrology was consulted and management to provide maintenance renal replacement therapy as an inpatient was arranged (7) Hyponatremia Status: Chronic Assessment and plan: Hypovolemic hyponatremia due to volume overload, nephrology was consulted to provide maintenance renal replacement therapy while inpatient and maximize ultrafiltration for volume control. (8) DVT prophylaxis Status: Acute - Time Spent With Patient Total time spent is greater than 50% in coordination of care (as documented) at patient's floor/unit and/or counseling patient:
[2018-05-28] MEDS ORDERED: Naloxone 0.4 MG/ML INJ IVP PRN (09:01)
[2018-05-28] MEDS ORDERED: Acetaminophen 325 MG TABLET PO PRN (09:01)
[2018-05-28] MEDS ORDERED: D5% in Water 1,000 ML IVC PRN (09:03)
[2018-05-28] MEDS ORDERED: *HR* Dextrose 50 % in Water (Syg) 50 ML SYRINGE IVP PRN (09:03)
[2018-05-28] MEDS ORDERED: Dextrose Gel 15 GM/37.5 ML TUBE PO PRN ×2 (09:03)
--- NOTE | 2018-05-28 09:22 | Cardiology Consult Note ---
Addendum entered and electronically signed by Vinay Zambrano MD 05/28/18 13:04: I examined this patient and my medical decision-making was reviewed with the HEAD TEACHER. I agree with the documented findings, disposition and treatment plan as described except to the extent set forth below. A/P: Chest pain with known severe multivseel CAD declined for CABG and high risk PCI with referral to [place] already completed Fraility ESRD Systolic CHF Recommend titrating antianginals including Imdur and Ranexa. Thank you for the consult, Vinay Zambrano MD [facility] Original Note: Date of Encounter: 05/28/18 Time of Encounter: 09:20 Assessment and Plan (1) Chest pain Current Visit: Yes Status: Acute Chest pain yesterday midsternal without radiaton lasted approximately 12 hours before spontaneously resolving. Currently CP free. Known severe 3V CAD on [facility] 04/2018. Suggested pt have elective CABG, deemed not a candidate. Was transferred to [place] for consideration of high risk PCI. Per pt, no intervention and medical management was recommended. Request records. Continue ASA, Statin. Currently hypotensive. On home BB. Would recommend Imdur 30mg daily if BP allows. Troponin 0.11 in setting of ESRD on dialysis--demand ischemia. Chronically elevated troponins. Known EF 35-40% on TTE 04/2018. Will discuss with Dr. Zambrano/review cath films. Anticipate continued medical management. Qualifiers: Chest pain type: unspecified Qualified Code(s): R07.9 - Chest pain, unspecified (2) Cardiomyopathy Current Visit: Yes Status: Acute Newly reduced EF diagnosed 04/2018 35-40%. ICMP--underwent [facility] with severe 3V CAD--medical management. On BB at home. Currently hypotensive. No ACEi/ARB due to hypotension. Qualifiers: Cardiomyopathy type: unspecified Qualified Code(s): I42.9 - Cardiomyopathy, unspecified (3) Elevated troponin Current Visit: Yes Status: Acute Troponin 0.11 in setting of ESRD on dialysis--demand ischemia, nondiagnostic for ACS. Hx of chronic troponin elevation. (4) CAD (coronary artery disease) Current Visit: Yes Status: Chronic As above, [facility] 04/12/18 severe three vessel coronary artery disease. Lt to RT collaterals seen. It was suggested patient have Elective coronary artery bypass surgery. Pt deemed not a CABG candidate. Was transferred to [place] for evaluation of high risk PCI---per pt, no intervention and medical management was recommended. Records requested. ASA, Statin. Hold BB currently due to hypotension. Would recommend low dose Imdur 30mg daily if BP will tolerate. Qualifiers: Coronary Disease-Associated Artery/Lesion type: andreafski artery [place] vs. transplanted heart: andreafski heart Associated angina: angina presence unspecified Qualified Code(s): I25.10 - Atherosclerotic heart disease of andreafski coronary artery without angina pectoris Discussion w patient/family: The assessment and plan as outlined above was discussed with the patient and/or family members who expressed understanding and agreement. All questions were answered. Thank you for involving us in the care of your patient. Please call with any questions. I will discuss all the above with Dr. Zambrano and make changes as necessary. History of Present Illness Consult date: 05/28/18 Requesting physician: Gabbi Oliveros Consult reason: elevated troponin, Chest pain Chief complaint: chest pain History of present illness: Ms. Lacy is a 72 year old female with PMH DMII, ESRD on dialysis, recently diagnosed ICMP/systolic CHF EF 35-40% and recently diagnosed severe 3V CAD on [facility] 04/2018 without intervention. She was deemed not a candidate for CABG and was transferred to [place] for consideration of high risk PCI. Per pt, no intervention and [place] recommended medical management. Pt developed midsternal chest pain at rest yesterday prompting ED evaluation. Pain lasted 12 hours before spontaneously resolving. Currently chest pain free. Troponin 0.11. Hx of chronically elevated troponins. Cardiology consulted for further recs. Prior CV testing: [facility] 04/12/18: There is severe three vessel coronary artery disease. Lt to RT collaterals seen. It was suggested patient have Elective coronary artery bypass surgery. Pt deemed not a CABG candidate. TTE 04/08/18: Limited echo. LVEF 35-40%. Severe global and segmental left ventricular systolic dysfunction. Moderate right ventricular hypokinesis. Moderately dilated left atrium. Valves are not assessed. TTE 12/24/17: Impressions: LVEF 55%. Normal LV chamber size and function. Indeterminate diastolic function. Normal right ventricular structure and function. Mild concentric left ventricular hypertrophy. No significant valvular dysfunction. Past Med Surg Social Fam HX - Past Medical History Medical history: diabetes, hyperlipidemia, hypertension, renal disease, other Additional medical history: UTI, electrolyte imbalances, ESRD, pancytopenia, CDiff 2016, hydronephrosis, pneumonia, urinary retention/obstructive uropathy, diabetic foot ulcer Psychiatric history: anxiety - Past Surgical History Surgical History: appendectomy, cholecystectomy, hysterectomy Additional surgical history: cholecystectomy and appendectomy? - Social History Smoking Status: Former smoker Smokeless Tobacco Status: No Alcohol use: none Drug use: none - Family History Mother Living Status: Hx Family Cardiac Disorders: Yes Father Living Status: Hx Family Cardiac Disorders: Yes Medications and Allergies Metoprolol [Lopressor] 12.5 mg PO BID 03/01/16 [History] Aspirin Enteric Coated [Aspirin EC] 81 mg PO DAILY 08/04/17 [History] Oxygen 2 l NS AD 08/04/17 [History] Ferrous Sulfate 325 mg PO BID 10/28/17 [History] Pravastatin Sodium [Pravachol] 10 mg PO HS 10/28/17 [History] Cholecalciferol (Vitamin D3) [Vitamin D3] 1,000 unit PO DAILY 11/16/17 [History] Insulin Glargine,Hum.rec.anlog [Basaglar Kwikpen U-100] 40 unit SQ HS 11/16/17 [History] Folic Acid 1 mg PO DAILY 30 Days #30 tab 01/08/18 [Rx] Lactobacillus [Culturelle] 2 each PO DAILY cap.sprink 01/08/18 [Rx] Renal Vitamin [Renal Caps Softgel] 1 mg PO DAILY 30 Days #30 capsule 01/08/18 [Rx] Omeprazole 20 mg PO DAILY #14 tablet. 03/19/18 [Rx] Levofloxacin [Levaquin] 500 mg PO DAILY #2 tablet 05/11/18 [Rx] Allergy/AdvReac Type Severity Reaction Status Date / Time acetaminophen [From Tylenol] Allergy See Verified 05/28/18 04:24 Comments Influenza Virus Vaccines Allergy See Verified 05/28/18 04:24 Comments NSAIDS (Non-Steroidal Allergy See Verified 05/28/18 04:24 Anti-Inflamma Comments All Systems Review: The remainder of the systems were reviewed and are negative - Cardiovascular Cardiovascular: as per HPI, chest pain at rest Physical Examination Vital Signs, Last 4 Hours Temp Pulse Resp BP Pulse Ox 05/28/18 08:39 98.6 F 78 18 100/65 98 05/28/18 07:57 18 87/49 Vital Signs Temp Pulse Resp BP Pulse Ox 05/28/18 08:39 98.6 F 78 18 100/65 98 05/28/18 07:57 18 87/49 05/28/18 05:16 76 18 90/52 100 05/28/18 04:25 97.9 F 76 16 95/57 100 Intake and Output 05/27/18 05/28/18 05/28/18 23:59 07:59 15:59 Other: Weight 59.148 kg Patient Weight 05/28/18 23:59 Weight 59.148 kg General: Conversant, No Apparent Distress HEENT: Atraumatic, Normocephaly, Mucus Membranes Moist Neck: No JVD, Normal carotid pulses Cardiac: Reg Rate and Rhythm, Normal S1 and S2, No Murmur Lungs: Normal Breath Sounds, No Wheeze, Rales, Rhonchi Neuro: Alert and responsive, No focal deficits noted Abdomen: Soft, Non-Tender Skin: No rashes noted on visualized skin Musculoskeletal: No Chest Wall Tenderness Extremities: No Clubbing, No Cyanosis, No Edema, Normal Pulses Results 05/28/18 04:50 05/28/18 04:50 Lab Results 05/28/18 05/28/18 05/28/18 04:50 04:50 04:50 WBC 13.1 H Hgb 7.9 L Hct 26.6 L Plt Count 293 INR 1.4 APTT 30.0 Sodium 128 L Potassium 5.0 Chloride 94 L Carbon Dioxide 27 BUN 20 Creatinine 2.36 H Glucose 407 H Calcium 8.2 L Troponin I 0.11 H* Lipase 5 L Short CBC 05/28/18 Range/Units 04:50 WBC 13.1 H (4.3-11.1) K/mcL Hgb 7.9 L (11.5-15.4) g/dL Hct 26.6 L (35.3-44.9) % Plt Count 293 (140-400) K/mcL Neutrophils # 10.1 H (1.6-8.9) K/mcL BMP 05/28/18 Range/Units 04:50 Sodium 128 L (136-145) mEq/L Potassium 5.0 (3.5-5.1) mEq/L Chloride 94 L (98-107) mEq/L Carbon Dioxide 27 (23-29) mEq/L BUN 20 (8-23) mg/dL Creatinine 2.36 H (0.60-1.20) mg/dL Glucose 407 H (70-105) mg/dL Calcium 8.2 L (8.6-10.3) mg/dL Cardiac Enzymes 05/28/18 Range/Units 04:50 Troponin I 0.11 H* (< 0.04) ng/mL Impressions Chest X-Ray 05/28/18 04:39 IMPRESSION: Stable exam without acute focal process. Stable biapical scarring. D/ / Stevo Pastrana MD / Stevo Pastrana MD Interpreting Provider: Stevo Pastrana MD Active Medications Dextrose/Water (Dextrose 50% (Syg)) 25 ml IVP AD PRN PRN Reason: Hypoglycemia Stop: 11/27/18 09:04 Glucagon (Glucagen) 1 mg IM ONCE PRN PRN Reason: Hypoglycemia Stop: 11/27/18 09:04 Glucose (Gluctose) 15 gm PO ONCE PRN PRN Reason: Hypoglycemia Stop: 11/27/18 09:04 Glucose (Gluctose) 30 gm PO ONCE PRN PRN Reason: Hypoglycemia Stop: 11/27/18 09:04 Dextrose (Dextrose 5%) 1,000 mls @ 100 mls/hr IVC .Q10H PRN PRN Reason: HYPOGLYCEMIA Stop: 11/27/18 09:04 Insulin Human Lispro (Humalog) 0 units SQ HS VIKA; Protocol Stop: 11/27/18 21:01 Insulin Human Lispro (Humalog) 0 units SQ TIDAC VIKA; Protocol Stop: 11/27/18 11:31 Naloxone HCl (Narcan) 0.4 mg IVP Q2MIN PRN PRN Reason: SEE COMMENTS Stop: 11/27/18 09:02 - Imaging and Cardiology Echo: report reviewed Cardiac cath: report reviewed - EKG Interpretation EKG results cardiology: personally reviewed (SR, similar to prior), other (12 hr tele AVG HR 76, SR, no significant pauses or arrhythmias) Consult Discharge Plan - Plan Referrals: Macario Diallo MD [Primary Care Provider] -
[2018-05-28 09:56] LABS: Chol/HDL Ratio 4.6 (0-4.9)
[2018-05-28 09:58] LABS: Troponin I 0.1 ng/mL (< 0.04)
[2018-05-28 10:52] LABS: Hepatitis B Surface Antibody 0.29 mIU/mL; Hepatitis B Surface Antigen Nonreactive (Nonreactive)
[2018-05-28] MEDS: Insulin LISPRO 300 UNITS/3 ML VIAL SQ SCH ×2 (11:20→17:37)
[2018-05-28] MEDS ORDERED: NON-FORMULARY MEDICATION 1 EACH EACH (Insulin Aspart [Novolog Flexpen] 10 UNIT) SQ PRN (14:11)
[2018-05-28] MEDS ORDERED: NON-FORMULARY MEDICATION 1 EACH EACH (Oxygen [Oxygen] 2 L) NS SCH (14:15)
[2018-05-28] MEDS ORDERED: hydrALAZINE 10 MG TABLET PO SCH (14:15)
--- NOTE | 2018-05-28 16:09 | Electrocardiograph Report ---
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
[2018-05-28] MEDS: hydrALAZINE 10 MG TABLET PO SCH (17:38)
[2018-05-28] MEDS ORDERED: Insulin LISPRO 300 UNITS/3 ML VIAL SQ SCH (21:00)
[2018-05-28] MEDS ORDERED: Insulin DETEMIR 100 UNIT/ML X5UNITS SQ SCH (21:00)
[2018-05-29] MEDS: hydrALAZINE 10 MG TABLET PO SCH ×3 (03:59→16:03)
[2018-05-29 05:49] LABS: Basophils % 0.3 %; Eosinophils % 0.3 %; Hematocrit 25.5 % (35.3-44.9); Hemoglobin 7.7 g/dL (11.5-15.4); Immature Granulocytes % 0.5 % (0-4); Lymphocytes # 1.9 K/mcL (0.6-4.6); Lymphocytes % 16.5 %; Mean Corpuscular HGB Conc 30.2 g/dL (31.6-35.5); Mean Corpuscular Hemoglobin 25.7 pg (28.0-33.3); Mean Platelet Volume 9.3 fL (9.4-12.4); Monocytes # 0.7 K/mcL (0.0-1.3); Monocytes % 6.3 %; Neutrophils # 8.8 K/mcL (1.6-8.9); Platelet Count 254 K/mcL (140-400); Red Cell Distribution Width 21.2 % (11.5-14.5); Segmented Neutrophils % 76.1 %
[2018-05-29 05:59] LABS: INR 1.3; Prothrombin Time 14.7 Seconds (9.4-12.1)
[2018-05-29 06:11] LABS: Albumin 2.3 g/dL (3.5-5.7); Albumin/Globulin Ratio 0.4 (1.1-2.2); Bilirubin,Total 0.4 mg/dL (0.3-1.0); Calcium 8.3 mg/dL (8.6-10.3); Globulin 5.6 g/dL (2.4-3.5); Magnesium 1.6 mg/dL (1.6-2.6); Phosphorous 4.2 mg/dL (2.7-4.5); Potassium 5.3 mEq/L (3.5-5.1); Total Protein 7.9 g/dL (6.4-8.9)
[2018-05-29] MEDS ORDERED: 0.9 % Sodium Chloride 250 ML IVC PRN (07:08)
[2018-05-29] MEDS ORDERED: 0.9 % Sodium Chloride 1,000 ML PRIME SCH (07:15)
[2018-05-29] MEDS ORDERED: 0.9 % Sodium Chloride 1,000 ML ONE (07:40)
[2018-05-29] MEDS: Insulin LISPRO 300 UNITS/3 ML VIAL SQ SCH ×3 (08:03→16:04)
[2018-05-29] MEDS ORDERED: Cholecalciferol (D-3) 1,000 UNIT TABLET PO SCH (09:00)
[2018-05-29] MEDS ORDERED: PETROLATUM WHITE TP SCH (09:00)
[2018-05-29] MEDS ORDERED: ZINC OXIDE TP SCH (09:00)
[2018-05-29] MEDS ORDERED: Metoprolol XL (24 HR) Succ 25 MG TAB.ER.24H PO SCH (09:00)
[2018-05-29] MEDS ORDERED: Folic Acid 1 MG TABLET PO SCH (09:00)
[2018-05-29] MEDS ORDERED: Renal Vitamin 1 CAP CAPSULE PO SCH (09:00)
[2018-05-29] MEDS ORDERED: Isosorbide MONOnitrate (24 HR) 30 MG TAB.ER.24H PO SCH (09:00)
[2018-05-29] MEDS ORDERED: Aspirin Enteric Coated 81 MG Tablet PO SCH (09:00)
--- NOTE | 2018-05-29 10:39 | Nephrology Consult Note ---
Date of Encounter: 05/29/18 Time of Encounter: 10:30 Assessment and Plan (1) ESRD (end stage renal disease) on dialysis Status: Chronic She is ESRD on HD TTS via a Permacath. She has recently undergone AV surgery. Dialysis note: she was seen/examined while on HD today (Thursday). (2) HTN (hypertension) Status: Chronic Continue current meds. Qualifiers: Hypertension type: essential hypertension Qualified Code(s): I10 - Essential (primary) hypertension (3) Hydronephrosis Status: Chronic Chronic history, and chronic naylor in place. Qualifiers: Hydronephrosis type: other Qualified Code(s): N13.39 - Other hydronephrosis (4) Hyponatremia Status: Chronic Chronic and HD was arranged for today. (5) Hyperkalemia Status: Resolved Low K+ diet. History of Present Illness - Reason for Consult Consult date: 05/28/18 end stage renal disease Requesting physician: Roshan Brantley - Chief Complaint ESRD on HD TTS - History of Present Illness Lisa Lacy is a very pleasant 72 y/o WF with a pmh of ESRD on HD TTS, chronic hydronephrosis with a chronic naylor, and nephrology was consulted for dialysis. She presented the day before, but after having reviewed her chart, she has already completed dialysis on . She was seen/examined while on dialysis and she did not affirm N/V/D or cramping or dizziness while on dialysis. She voiced having no recent dialysis related complications. Past Med Surg Social Fam HX - Past Medical History Medical history: diabetes, hyperlipidemia, hypertension, renal disease, other Additional medical history: UTI, electrolyte imbalances, ESRD, pancytopenia, CDiff 2016, hydronephrosis, pneumonia, urinary retention/obstructive uropathy, diabetic foot ulcer Psychiatric history: anxiety - Past Surgical History Surgical History: appendectomy, cholecystectomy, hysterectomy Additional surgical history: cholecystectomy and appendectomy? - Social History Smoking Status: Former smoker Smokeless Tobacco Status: No Alcohol use: none Drug use: none - Family History Mother Living Status: Hx Family Cardiac Disorders: Yes Father Living Status: Hx Family Cardiac Disorders: Yes Medications and Allergies Aspirin Enteric Coated [Aspirin EC] 81 mg PO DAILY 08/04/17 [History] Oxygen 2 l NS AD 08/04/17 [History] Ferrous Sulfate 325 mg PO BID 10/28/17 [History] Cholecalciferol (Vitamin D3) [Vitamin D3] 1,000 unit PO DAILY 11/16/17 [History] Insulin Glargine,Hum.rec.anlog [Basaglar Kwikpen U-100] 40 unit SQ HS 11/16/17 [History] Folic Acid 1 mg PO DAILY 30 Days #30 tab 01/08/18 [Rx] Renal Vitamin [Renal Caps Softgel] 1 mg PO DAILY 30 Days #30 capsule 01/08/18 [Rx] Omeprazole 20 mg PO DAILY #14 tablet.dr 03/19/18 [Rx] Atorvastatin [Lipitor] 40 mg PO HS 05/28/18 [History] Clopidogrel [Plavix] 75 mg PO DAILY 05/28/18 [History] Insulin ASPART [Novolog Flexpen] 10 unit SQ TID PRN 05/28/18 [History] Isosorbide MONOnitrate (24 HR) [Imdur] 30 mg PO DAILY 05/28/18 [History] Metoprolol Succinate [Toprol Xl] 25 mg PO DAILY 05/28/18 [History] Zinc Oxide/Petrolatum,White [Remedy Phytoplex Z-Guard Paste] 113 gm TP DAILY 05/28/18 [History] hydrALAZINE [HydrALAZINE] 10 mg PO Q8H 05/28/18 [History] Allergy/AdvReac Type Severity Reaction Status Date / Time acetaminophen [From Tylenol] Allergy See Verified 05/28/18 04:24 Comments Influenza Virus Vaccines Allergy See Verified 05/28/18 04:24 Comments NSAIDS (Non-Steroidal Allergy See Verified 05/28/18 04:24 Anti-Inflamma Comments Review of Systems All Systems: reviewed and no additional remarkable complaints except as stated Exam - Vital Signs Vital signs: Initial Vital Signs Temp Pulse Resp BP Pulse Ox 97.9 F 76 16 95/57 100 05/28/18 04:25 05/28/18 04:25 05/28/18 04:25 05/28/18 04:25 05/28/18 04:25 Vital Signs - Last 8 Hours Temp Pulse Resp BP Pulse Ox 05/29/18 09:14 98.0 F 90 19 92/59 96 05/29/18 03:33 97.3 F L 83 16 110/75 100 Intake and Output 1005/29/18 05/29/18 23:59 07:59 15:59 Output Total 300 / 300 Balance -300 / -300 Output: Catheter 300 / 300 Other: Stool Size Moderate Stool Consistency loose Stool Color Brown Yellow # Bowel Movements 2 # Bowel Movement Diapers 1 Weight 60 kg Blood Glucose* 296 284 Patient Weight 05/29/18 23:59 Weight 60 kg - General Appearance General appearance: appears started age, cachectic, chronically ill, fatigue, frail EENT: ATNC, PERRL, mucous membranes moist Respiratory: clear Cardiology: no edema, normal S1, normal S2 - Dialysis Access Dialysis Vascular Access: Venous Catheter (Left Permacath was in place with dressing C/D/I) Gastrointestinal: normoactive bowel sounds, no tenderness, no guarding Additional Comments: chronic naylor catheter was in place Integumentary: warm and dry Neurologic: no focal deficit, no asterixis, alert and oriented x3 Musculoskeletal: no cyanosis, no clubbing Psychiatric: mood/affect appropriate, cooperative Results - Lab Results 05/29/18 05:18 05/29/18 05:18 Most recent lab results Calcium 8.3 mg/dL (8.6-10.3) L 05/29/18 05:18 Phosphorus 4.2 mg/dL (2.7-4.5) 05/29/18 05:18 Magnesium 1.6 mg/dL (1.6-2.6) 05/29/18 05:18 I reviewed the labs, vitals, med list, progress notes, prior imaging and outside medical records from [facility] dialysis including run sheets via the [facility]. Consult Discharge Plan - Plan Referrals: Macario Diallo MD [Primary Care Provider] -
[2018-05-29 15:25] VITALS: BP 113/61
--- NOTE | 2018-05-29 15:26 | Discharge Summary ---
- NOTES TO OUTPATIENT PROVIDER Notes to Outpatient Provider: Follow-up with primary care provider Date of Encounter: 05/29/18 Time of Encounter: 11:00 - Discharge Diagnosis (1) Hyponatremia Priority: Primary Status: Chronic (2) IDDM (insulin dependent diabetes mellitus) Priority: Primary Status: Chronic (3) HTN (hypertension) Priority: Secondary Status: Chronic Qualifiers: Hypertension type: essential hypertension Qualified Code(s): I10 - Essential (primary) hypertension (4) HLD (hyperlipidemia) Priority: Secondary Status: Chronic Qualifiers: Hyperlipidemia type: unspecified Qualified Code(s): E78.5 - Hyperlipidemia, unspecified (5) Anemia in chronic renal disease Priority: Secondary Status: Chronic Qualifiers: Chronic kidney disease stage: stage 4 (severe) Qualified Code(s): N18.4 - Chronic kidney disease, stage 4 (severe); D63.1 - Anemia in chronic kidney disease; D63.1 - Anemia in chronic kidney disease (6) Chest pain Priority: Primary Status: Acute Qualifiers: Chest pain type: unspecified Qualified Code(s): R07.9 - Chest pain, unspecified (7) ESRD (end stage renal disease) on dialysis Priority: Secondary Status: Chronic Hospital course: Patient is a 72 year old female with a past medical history significant for severe 3V CAD who presents from home for evaluation of 12 hour history of radiating substernal chest heaviness associated nausea with vomiting. In the ER, patient was found to have an elevated troponin of 0.11 and was admitted to medical surgical floor for ACS rule out. During patients hospital stay her troponins trended downward and cardiology was consulted with regulations for medical management. Patient will be discharged to follow-up with primary care provider. - Time Spent with Patient Total time spent providing and/or coordinating discharge services: Less than 30 minutes - Discharge Medications Home Medications: Aspirin Enteric Coated [Aspirin EC] 81 mg PO DAILY 08/04/17 [History] Oxygen 2 l NS AD 08/04/17 [History] Ferrous Sulfate 325 mg PO BID 10/28/17 [History] Cholecalciferol (Vitamin D3) [Vitamin D3] 1,000 unit PO DAILY 11/16/17 [History] Insulin Glargine,Hum.rec.anlog [Basaglar Kwikpen U-100] 40 unit SQ HS 11/16/17 [History] Folic Acid 1 mg PO DAILY 30 Days #30 tab 01/08/18 [Rx] Renal Vitamin [Renal Caps Softgel] 1 mg PO DAILY 30 Days #30 capsule 01/08/18 [Rx] Omeprazole 20 mg PO DAILY #14 tablet. 03/19/18 [Rx] Atorvastatin [Lipitor] 40 mg PO HS 05/28/18 [History] Clopidogrel [Plavix] 75 mg PO DAILY 05/28/18 [History] Insulin ASPART [Novolog Flexpen] 10 unit SQ TID PRN 05/28/18 [History] Isosorbide MONOnitrate (24 HR) [Imdur] 30 mg PO DAILY 05/28/18 [History] Metoprolol Succinate [Toprol Xl] 25 mg PO DAILY 05/28/18 [History] Zinc Oxide/Petrolatum,White [Remedy Phytoplex Z-Guard Paste] 113 gm TP DAILY 05/28/18 [History] hydrALAZINE [HydrALAZINE] 10 mg PO Q8H 05/28/18 [History] Allergies/Adverse Reactions: Allergy/AdvReac Type Severity Reaction Status Date / Time acetaminophen [From Tylenol] Allergy See Verified 05/28/18 04:24 Comments Influenza Virus Vaccines Allergy See Verified 05/28/18 04:24 Comments NSAIDS (Non-Steroidal Allergy See Verified 05/28/18 04:24 Anti-Inflamma Comments Date of admission: 05/28/18 07:19 Primary care physician: Macario Diallo MD Consults: 05/28/18 06:55 Consult to Cardiology [CONS] Stat Comment: Consulting Provider: [facility] Reason for Consult: CP. elev trop however ESRD. No EKG changes. Time Notified: 06:56 Call Completed: No 05/28/18 06:56 Consult to Nephrology [CONS] Stat Consulting Provider: [facility] Reason for Consult: CP. ESRD on dialysis. Dr. Meza. [place], [facility], Sat. Completed [place] dialysis. Time Notified: 06:57 Call Completed: No 05/29/18 07:15 Consult to Dialysis [CONS] ONCE - Constitutional Vitals: Temp Pulse Resp BP Pulse Ox 97.8 F 90 18 113/61 96 05/29/18 14:40 05/29/18 09:14 05/29/18 14:40 05/29/18 14:40 05/29/18 09:14 General appearance: Present: A&O X 3 Exam: Gen.: Nonacute distress, alert and oriented 3 Skin: Normal color - Patient Status Disposition: Home, Self-Care Condition: Fair - Discharge Instructions Follow Up With: Macario Diallo MD [Primary Care Provider] -
== END 2018-05-29 17:50 | disposition home or self-care (01) ==
LOC: 2ANU 04:14 → EMEROOARM 04:14 → SUATTDRO 07:19 → 2ANU 08:15
PROVIDERS: ADMIT Internal Medicine; ATTEND Hospitalist

== ENCOUNTER 2018-10-22 13:17 | Inpatient (IN) ==
[2018-10-22 14:19] LABS: Basophils # 0.1 K/mcL (0.0-0.2); Basophils % 0.7 %; Eosinophils # 0.3 K/mcL (0.0-0.6); Hemoglobin 11.4 g/dL (11.5-15.4); Lymphocytes # 1.5 K/mcL (0.6-4.6); Lymphocytes % 21.1 %; Mean Corpuscular HGB Conc 30.8 g/dL (31.6-35.5); Mean Corpuscular Hemoglobin 28.2 pg (28.0-33.3); Mean Corpuscular Volume 91.6 fL (83.0-100.0); Mean Platelet Volume 9.2 fL (9.4-12.4); Monocytes # 0.6 K/mcL (0.0-1.3); Neutrophils # 4.5 K/mcL (1.6-8.9); Platelet Count 258 K/mcL (140-400); Red Blood Count 4.04 M/mcL (3.82-4.97); Red Cell Distribution Width 14.9 % (11.5-14.5); Segmented Neutrophils % 65.2 %
[2018-10-22 14:29] LABS: INR 1.2
--- NOTE | 2018-10-22 14:29 | Emergency Department Note ---
Disposition Clinical Impression: Pleural effusion Failure to thrive Qualifiers: Failure to thrive age range: in adult Qualified Code(s): R62.7 - Adult failure to thrive Malnutrition Qualifiers: Malnutrition type: protein-calorie malnutrition Protein-calorie malnutrition severity: unspecified severity Qualified Code(s): E46 - Unspecified protein- calorie malnutrition UTI (urinary tract infection) Qualifiers: Urinary tract infection type: site unspecified Hematuria presence: with hematur ia Qualified Code(s): N39.0 - Urinary tract infection, site not specified; R31.9 - Hematuria, unspecified Disposition: Admitted As Inpatient Condition: Good Time of Disposition: 20:45 Altered Mental Status HPI - General Stated Complaint: back pain, ams Time Seen by Provider: 10/22/18 13:20 Nursing Notes Reviewed: Yes Vital Signs Reviewed: Yes - History of Present Illness HPI Narrative: 73-year-old female presents from home via EMS. Family called EMS over concerns of altered mentation and reported back pain. No family at bedside. History per patient and EMS. Patient states she has right gluteal pain. She denies any confusion. Patient is wheelchair bound with chronic indwelling Madden catheter. She does not know last time it was changed. Patient is very tearful and states that her daughter keeps calling her baby for complaining about her pain. ROS: Positive: Right gluteal pain Negative: Falls, trauma, abdominal pain, flank pain, lumbar pain, sacral or pelvic pain, headache, changes in vision, chest pain - Related Data Home Medications Medication Instructions Recorded Confirmed Aspirin Enteric Coated [Aspirin EC] 81 mg PO DAILY 08/04/17 10/22/18 Ferrous Sulfate 325 mg PO BIDWM 10/28/17 10/22/18 Insulin ASPART [Novolog Flexpen] 0 unit SQ TID PRN 05/28/18 10/22/18 Isosorbide MONOnitrate (24 HR) 30 mg PO DAILY 05/28/18 10/22/18 [Imdur] Metoprolol Succinate [Toprol Xl] 25 mg PO DAILY 05/28/18 10/22/18 Pravastatin Sodium 10 mg PO HS 07/23/18 10/22/18 Folic Acid/Vit B Complex and C 1 tab PO DAILY 10/22/18 10/22/18 [Dialyvite Tablet] Insulin Glargine,Hum.rec.anlog 40 unit SQ HS 10/22/18 10/22/18 [Janelle Casas U-100] Allergies Allergy/AdvReac Type Severity Reaction Status Date / Time acetaminophen [From Tylenol] Allergy See Verified 07/22/18 11:05 Comments Influenza Virus Vaccines Allergy See Verified 07/22/18 11:05 Comments NSAIDS (Non-Steroidal Allergy See Verified 07/22/18 11:05 Anti-Inflamma Comments All systems ED: reviewed and negative except as stated. 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 She appears age-appropriate, MA seated. Head: atraumatic, normocephalic Eye: normal appearance, PERRL, no scleral icterus, no conjunctival injection ENT: mucous membranes moist, normal external ear exam Neck: normal inspection, trachea midline, full ROM Chest: normal inspection, symmetric chest rise Respiratory: Poor respiratory effort. Bilateral breath sounds are equally diminished and clear without wheezing, crackles, or rhonchi. Cardiovascular: Regular rate and rhythm. No clicks, rubs, gallops, or murmors. Normal heart sounds. Abdomen: Bowel sounds present normoactive. Abdomen is soft, nondistended, and nontender. No guarding or rebound. No organomegaly noted. Musculoskeletal: No tenderness to extensive palpation of midline C-spine, T-spi ne, L-spine, ribs, bilateral lumbar musculature, sacrum, PSIS, iliac crest, ASIS. No tenderness palpation of right femur or greater trochanter. Mild tenderness palpation over right piriformis no overlying abrasion, erythema, lesions. Skin: warm, dry, intact. No evidence of sacral decubitus ulcer. Neuro: GCS 15. No focal neurologic deficits observed. Psych: Patient's affect is appropriate for situation. Course Course Narrative: Patient appears clinically dehydrated and malnourished. History of UTI growing MRSA and bacteroides with multiple sensitivities. EKG dated 10/22/2018 at 13:39 interpreted as sinus rhythm with rate of 75. NH 203; first-degree AV block. QRS 137, QTC 464. Normal axis. Multiple T-wave inversions in lateral leads unchanged from comparative EKG; compared to EKG dated 09/14/2012 showing no acute ischemic changes or comparison. CT lumbar spine Jun 2018 showed diffuse mitch demineralization. Serum hematology shows mild anemia consistent with the patient's baseline. Albumin is low suggesting chronic protein malnourishment. BUN and creatinine are elevated. Patient is on dialysis. Combined with her clinical picture of dehydration as well as her low sodium, suspect hypovolemic hyponatremia. Urinalysis shows many bacteria and many WBC. This was off a fresh Madden placement. Have ordered culture. Chest x-ray shows enlarged pleural effusion. Caution with fluid replenishment. Patient vital signs are stable with no hypoxia. CT head shows no acute abnormalities. CT abdomen pelvis shows bilateral hydronephrosis with ureteral stents in place. No renal calculus seen. Incidental loculated left pleural effusion. I discussed the above with the admitting hospitalist, Dr. Santizo, who agrees to accept the patient for continued evaluation monitoring. Chest X-Ray 10/22/18 13:26 IMPRESSION: Increased volume of a moderate left-sided pleural effusion with associated edema and atelectasis in the left lung. D/ / William Martin MD / William Martin MD Interpreting Provider: William Martin MD Head CT 10/22/18 13:26 IMPRESSION: No acute intracranial abnormality. D/ / 10/22/2018 18:22:32 Gab Stanley MD / john Interpreting Provider: aGb Stanley MD Abdomen/Pelvis CT 10/22/18 13:27 IMPRESSION: Mild bilateral hydronephrosis with ureteral stents. No definite renal calculus. Moderate loculated left pleural effusion. D/ / 10/22/2018 18:29:42 Gab Stanley MD / galilea Interpreting Provider: Gab Stanley MD Vital Signs Temperature 98.7 F 10/22/18 13:40 Pulse Rate 78 10/22/18 13:40 Respiratory Rate 18 10/22/18 13:40 Blood Pressure 111/57 10/22/18 13:40 O2 Sat by Pulse Oximetry 98 10/22/18 13:40 Temperature 97.6 F 10/22/18 20:37 Pulse Rate 75 10/22/18 20:37 Respiratory Rate 16 10/22/18 20:37 Blood Pressure 111/82 10/22/18 20:37 O2 Sat by Pulse Oximetry 95 10/22/18 20:37 Oxygen Delivery Oxygen Delivery Room Air Altered Mental Status - Lab Data Result diagrams: 10/22/18 13:57 10/22/18 13:57 Lab Results 10/22/18 10/22/18 10/22/18 Range/Units 13:57 13:57 13:57 WBC 7.0 (4.3-11.1) K/mcL RBC 4.04 (3.82-4.97) M/mcL Hgb 11.4 L (11.5-15.4) g/dL Hct 37.0 (35.3-44.9) % MCV 91.6 (83.0-100.0) fL MCH 28.2 (28.0-33.3) pg MCHC 30.8 L (31.6-35.5) g/dL RDW 14.9 H (11.5-14.5) % Plt Count 258 (140-400) K/mcL MPV 9.2 L (9.4-12.4) fL Immature Gran % 1.0 (0-4) % Seg Neutrophils % 65.2 % Lymphocytes % 21.1 % Monocytes % 8.0 % Eosinophils % 4.0 % Basophils % 0.7 % Neutrophils # 4.5 (1.6-8.9) K/mcL Lymphocytes # 1.5 (0.6-4.6) K/mcL Monocytes # 0.6 (0.0-1.3) K/mcL Eosinophils # 0.3 (0.0-0.6) K/mcL Basophils # 0.1 (0.0-0.2) K/mcL PT 13.0 H (9.4-12.1) Seconds INR 1.2 APTT 29.9 (26.0-36.0) Seconds Sodium (136-145) mEq/L Potassium (3.5-5.1) mEq/L Chloride (98-107) mEq/L Carbon Dioxide (23-29) mEq/L BUN (8-23) mg/dL Creatinine (0.60-1.20) mg/dL Est GFR ( Amer) (> 60) Est GFR (Non-Af Amer) (> 60) BUN/Creatinine Ratio (6-26) Glucose (70-105) mg/dL Calculated Osmolality (280-300) Calcium (8.6-10.3) mg/dL Total Bilirubin (0.3-1.0) mg/dL Direct Bilirubin (0.0-0.2) mg/dL Indirect Bilirubin (0.0-1.2) mg/dL AST (13-39) Units/L ALT (7-52) Units/L Alkaline Phosphatase (34-104) Units/L Ammonia 29 (16-53) mcmol/L Troponin I (< 0.04) ng/mL B-Natriuretic Peptide (Less than 100) pg/mL Serum Total Protein (6.4-8.9) g/dL Albumin (3.5-5.7) g/dL Globulin (2.4-3.5) g/dL Albumin/Globulin Ratio (1.1-2.2) Urine Color (Yellow) Urine Clarity (Clear) Urine pH (5.0-8.0) pH Units Ur Specific [place] (1.010-1.025) Urine Protein (Neg-Trace) mg/dL Urine Glucose (UA) (Normal) mg/dL Urine Ketones (Negative) mg/dL Urine Blood (Negative) Urine Nitrite (Negative) Urine Bilirubin (Negative) Urine Urobilinogen (Normal) mg/dL Ur Leukocyte Esterase (Negative) Urine Microscopic RBC (0-3) per hpf Urine Microscopic WBC (0-3) per hpf Ur Squamous Epith Cells (None-Few) per lpf Urine Bacteria (None-Few) per hpf Ur Culture Indicated? (NO) 10/22/18 10/22/18 10/22/18 Range/Units 13:57 14:47 18:49 WBC (4.3-11.1) K/mcL RBC (3.82-4.97) M/mcL Hgb (11.5-15.4) g/dL Hct (35.3-44.9) % MCV (83.0-100.0) fL MCH (28.0-33.3) pg MCHC (31.6-35.5) g/dL RDW (11.5-14.5) % Plt Count (140-400) K/mcL MPV (9.4-12.4) fL Immature Gran % (0-4) % Seg Neutrophils % % Lymphocytes % % Monocytes % % Eosinophils % % Basophils % % Neutrophils # (1.6-8.9) K/mcL Lymphocytes # (0.6-4.6) K/mcL Monocytes # (0.0-1.3) K/mcL Eosinophils # (0.0-0.6) K/mcL Basophils # (0.0-0.2) K/mcL PT (9.4-12.1) Seconds INR APTT (26.0-36.0) Seconds Sodium 129 L (136-145) mEq/L Potassium 5.1 (3.5-5.1) mEq/L Chloride 95 L (98-107) mEq/L Carbon Dioxide 24 (23-29) mEq/L BUN 43 H (8-23) mg/dL Creatinine 3.10 H (0.60-1.20) mg/dL Est GFR ( Amer) 18 L (> 60) Est GFR (Non-Af Amer) 15 L (> 60) BUN/Creatinine Ratio 14 (6-26) Glucose 315 H (70-105) mg/dL Calculated Osmolality 291 (280-300) Calcium 8.8 (8.6-10.3) mg/dL Total Bilirubin 0.3 (0.3-1.0) mg/dL Direct Bilirubin 0.2 (0.0-0.2) mg/dL Indirect Bilirubin 0.1 (0.0-1.2) mg/dL AST 14 (13-39) Units/L ALT 16 (7-52) Units/L Alkaline Phosphatase 151 H (34-104) Units/L Ammonia (16-53) mcmol/L Troponin I 0.03 (< 0.04) ng/mL B-Natriuretic Peptide 2068 H (Less than 100) pg/mL Serum Total Protein 8.7 (6.4-8.9) g/dL Albumin 3.3 L (3.5-5.7) g/dL Globulin 5.4 H (2.4-3.5) g/dL Albumin/Globulin Ratio 0.6 L (1.1-2.2) Urine Color Yellow (Yellow) Urine Clarity Turbid A (Clear) Urine pH 7.0 (5.0-8.0) pH Units Ur Specific [place] 1.009 L (1.010-1.025) Urine Protein >=300 H (Neg-Trace) mg/dL Urine Glucose (UA) 250 H (Normal) mg/dL Urine Ketones Negative (Negative) mg/dL Urine Blood Large H (Negative) Urine Nitrite Negative (Negative) Urine Bilirubin Negative (Negative) Urine Urobilinogen Normal (Normal) mg/dL Ur Leukocyte Esterase Large H (Negative) Urine Microscopic RBC 0-3 (0-3) per hpf Urine Microscopic WBC TNTC H (0-3) per hpf Ur Squamous Epith Cells Few (None-Few) per lpf Urine Bacteria Few (None-Few) per hpf Ur Culture Indicated? YES A (NO) TPA Checklist - LKW: 3-4.5 hrs Add. Warnings/Precautions Patient/family understanding: The patient/family members have been counseled and understood the risk, benefit, and alternatives of treatment.
[2018-10-22 14:32] LABS: Activated Partial Thrombo Time 29.9 Seconds (26.0-36.0)
[2018-10-22 14:35] LABS: Albumin 3.3 g/dL (3.5-5.7); Albumin/Globulin Ratio 0.6 (1.1-2.2); Bilirubin,Direct 0.2 mg/dL (0.0-0.2); Bilirubin,Indirect 0.1 mg/dL (0.0-1.2); Bilirubin,Total 0.3 mg/dL (0.3-1.0); Calcium 8.8 mg/dL (8.6-10.3); Globulin 5.4 g/dL (2.4-3.5); Potassium 5.1 mEq/L (3.5-5.1); Total Protein 8.7 g/dL (6.4-8.9); Troponin I 0.03 ng/mL (< 0.04)
[2018-10-22] MEDS ORDERED: 0.9 % Sodium Chloride 500 ML IVC ONE (14:46)
--- NOTE | 2018-10-22 14:50 | Emergency Department Note ---
Disposition Clinical Impression: Failure to thrive Qualifiers: Failure to thrive age range: in adult Qualified Code(s): R62.7 - Adult failure to thrive Malnutrition Qualifiers: Malnutrition type: protein-calorie malnutrition Protein-calorie malnutrition severity: unspecified severity Qualified Code(s): E46 - Unspecified protein- calorie malnutrition Disposition: Admitted As Inpatient Referrals: Macario Diallo MD [Primary Care Provider] - General Adult HPI - General Stated complaint: back pain, ams Time Seen by Provider: 10/22/18 13:20 - Related Data Home Medications Medication Instructions Recorded Confirmed Aspirin Enteric Coated [Aspirin EC] 81 mg PO DAILY 08/04/17 09/15/18 Ferrous Sulfate 325 mg PO BIDWM 10/28/17 09/15/18 Cholecalciferol (Vitamin D3) 1,000 unit PO DAILY 11/16/17 09/15/18 [Vitamin D3] Insulin ASPART [Novolog Flexpen] 0 unit SQ TID PRN 05/28/18 09/15/18 Isosorbide MONOnitrate (24 HR) 30 mg PO DAILY 05/28/18 09/15/18 [Imdur] Metoprolol Succinate [Toprol Xl] 25 mg PO DAILY 05/28/18 09/15/18 Pravastatin Sodium 10 mg PO HS 07/23/18 09/15/18 Lidocaine 4% CRM (LMX) [Lmx 4] 1 appl TP TID PRN 08/20/18 09/15/18 Previous Rx's Medication Instructions Recorded Folic Acid 1 mg PO DAILY 30 Days #30 tab 01/08/18 Renal Vitamin [Renal Caps Softgel] 1 mg PO DAILY 30 Days #30 capsule 01/08/18 Clopidogrel [Plavix] 75 mg PO DAILY #30 tablet 07/29/18 Insulin Glargine,Hum.rec.anlog 28 unit SQ HS #0 07/29/18 [Basaglar Kwikpen U-100] Allergies Allergy/AdvReac Type Severity Reaction Status Date / Time acetaminophen [From Tylenol] Allergy See Verified 07/22/18 11:05 Comments Influenza Virus Vaccines Allergy See Verified 07/22/18 11:05 Comments NSAIDS (Non-Steroidal Allergy See Verified 07/22/18 11:05 Anti-Inflamma Comments Past Medical History - Past Medical History Medical history: Reports: arthritis, diabetes, GERD, hyperlipidemia, hypertension, renal disease, other Surgical history: Reports: appendectomy, cholecystectomy, hysterectomy Psychiatric history: Reports: anxiety, depression BACTERIOLOGY RESEARCH 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: 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: 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 - Social History Smoking Status: Former smoker Smokeless Tobacco Status: No Alcohol use: Reports: none Drug use: Reports: none Medical Decision Making - Lab Data Result diagrams: 10/22/18 13:57 10/22/18 13:57 Lab Results 10/22/18 10/22/18 10/22/18 Range/Units 13:57 13:57 13:57 WBC 7.0 (4.3-11.1) K/mcL RBC 4.04 (3.82-4.97) M/mcL Hgb 11.4 L (11.5-15.4) g/dL Hct 37.0 (35.3-44.9) % MCV 91.6 (83.0-100.0) fL MCH 28.2 (28.0-33.3) pg MCHC 30.8 L (31.6-35.5) g/dL RDW 14.9 H (11.5-14.5) % Plt Count 258 (140-400) K/mcL MPV 9.2 L (9.4-12.4) fL Immature Gran % 1.0 (0-4) % Seg Neutrophils % 65.2 % Lymphocytes % 21.1 % Monocytes % 8.0 % Eosinophils % 4.0 % Basophils % 0.7 % Neutrophils # 4.5 (1.6-8.9) K/mcL Lymphocytes # 1.5 (0.6-4.6) K/mcL Monocytes # 0.6 (0.0-1.3) K/mcL Eosinophils # 0.3 (0.0-0.6) K/mcL Basophils # 0.1 (0.0-0.2) K/mcL PT 13.0 H (9.4-12.1) Seconds INR 1.2 APTT 29.9 (26.0-36.0) Seconds Sodium (136-145) mEq/L Potassium (3.5-5.1) mEq/L Chloride (98-107) mEq/L Carbon Dioxide (23-29) mEq/L BUN (8-23) mg/dL Creatinine (0.60-1.20) mg/dL Est GFR ( Amer) (> 60) Est GFR (Non-Af Amer) (> 60) BUN/Creatinine Ratio (6-26) Glucose (70-105) mg/dL Calculated Osmolality (280-300) Calcium (8.6-10.3) mg/dL Total Bilirubin (0.3-1.0) mg/dL Direct Bilirubin (0.0-0.2) mg/dL Indirect Bilirubin (0.0-1.2) mg/dL AST (13-39) Units/L ALT (7-52) Units/L Alkaline Phosphatase (34-104) Units/L Ammonia 29 (16-53) mcmol/L Troponin I (< 0.04) ng/mL Serum Total Protein (6.4-8.9) g/dL Albumin (3.5-5.7) g/dL Globulin (2.4-3.5) g/dL Albumin/Globulin Ratio (1.1-2.2) 10/22/18 Range/Units 13:57 WBC (4.3-11.1) K/mcL RBC (3.82-4.97) M/mcL Hgb (11.5-15.4) g/dL Hct (35.3-44.9) % MCV (83.0-100.0) fL MCH (28.0-33.3) pg MCHC (31.6-35.5) g/dL RDW (11.5-14.5) % Plt Count (140-400) K/mcL MPV (9.4-12.4) fL Immature Gran % (0-4) % Seg Neutrophils % % Lymphocytes % % Monocytes % % Eosinophils % % Basophils % % Neutrophils # (1.6-8.9) K/mcL Lymphocytes # (0.6-4.6) K/mcL Monocytes # (0.0-1.3) K/mcL Eosinophils # (0.0-0.6) K/mcL Basophils # (0.0-0.2) K/mcL PT (9.4-12.1) Seconds INR APTT (26.0-36.0) Seconds Sodium 129 L (136-145) mEq/L Potassium 5.1 (3.5-5.1) mEq/L Chloride 95 L (98-107) mEq/L Carbon Dioxide 24 (23-29) mEq/L BUN 43 H (8-23) mg/dL Creatinine 3.10 H (0.60-1.20) mg/dL Est GFR ( Amer) 18 L (> 60) Est GFR (Non-Af Amer) 15 L (> 60) BUN/Creatinine Ratio 14 (6-26) Glucose 315 H (70-105) mg/dL Calculated Osmolality 291 (280-300) Calcium 8.8 (8.6-10.3) mg/dL Total Bilirubin 0.3 (0.3-1.0) mg/dL Direct Bilirubin 0.2 (0.0-0.2) mg/dL Indirect Bilirubin 0.1 (0.0-1.2) mg/dL AST 14 (13-39) Units/L ALT 16 (7-52) Units/L Alkaline Phosphatase 151 H (34-104) Units/L Ammonia (16-53) mcmol/L Troponin I 0.03 (< 0.04) ng/mL Serum Total Protein 8.7 (6.4-8.9) g/dL Albumin 3.3 L (3.5-5.7) g/dL Globulin 5.4 H (2.4-3.5) g/dL Albumin/Globulin Ratio 0.6 L (1.1-2.2) Attestation Statement - Attestation Attestation: I examined this patient and my medical decision-making was reviewed with the Resident Physician. I agree with the documented findings, disposition and treatment plan as described except to the extent set forth below. 73 year old female presents to the ED via EMS from private home and her POA is her son. Patient is a known patron of the ED as she is consistantly a failure to thrive patient who is malnoursihed and has recurrent UTIs which have grown MRSA, strep, and bacteriodes. Patinet vital signs are otherwise stable. We will do labs and obtain a ABCT with HCT and UA for completion of workup.
[2018-10-22 15:18] LABS: Bilirubin,Urine Negative (Negative); Blood,Urine Large (Negative); Clarity,Urine Turbid (Clear); Color,Urine Yellow (Yellow); Glucose,Urine (UA) 250 mg/dL (Normal); Ketones,Urine Negative (Negative); Leukocyte Esterase,Urine Large (Negative); Nitrite,Urine Negative (Negative); Protein,Urine >=300 mg/dL (Neg-Trace); Specific Gravity,Urine 1.009 (1.010-1.025); Urobilinogen,Urine Normal (Normal)
[2018-10-22 15:21] LABS: WBC,Urine TNTC per hpf (0-3)
[2018-10-22 15:37] LABS: Bacteria,Urine Few per hpf (None-Few); Squamous Epithelial Cell,Urine Few per lpf (None-Few)
[2018-10-22 15:40] LABS: RBC,Urine 0-3 per hpf (0-3)
--- NOTE | 2018-10-22 17:03 | Electrocardiograph Report ---
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
[2018-10-22] MEDS ORDERED: D5% in Water 1,000 ML IVC PRN (22:00)
[2018-10-22] MEDS ORDERED: Ondansetron 4 MG/2 ML VIAL IVP PRN (22:00)
[2018-10-22] MEDS ORDERED: *HR* Dextrose 50 % in Water (Syg) 50 ML SYRINGE IVP PRN (22:00)
[2018-10-22] MEDS ORDERED: Dextrose Gel 15 GM/37.5 ML TUBE PO PRN ×2 (22:00)
[2018-10-22 22:51] LABS: Estimated Average Glucose 255 mg/dl; Hemoglobin A1C 10.5 %
[2018-10-23] MEDS ORDERED: Dextrose Gel 15 GM/37.5 ML TUBE PO PRN ×2 (02:35)
[2018-10-23] MEDS ORDERED: Albuterol 2.5 MG/3 ML NEBULIZER IH PRN (02:35)
[2018-10-23] MEDS ORDERED: Naloxone 0.4 MG/ML INJ IVP PRN (02:35)
[2018-10-23] MEDS ORDERED: *HR* Dextrose 50 % in Water (Syg) 50 ML SYRINGE IVP PRN (02:35)
[2018-10-23] MEDS ORDERED: D5% in Water 1,000 ML IVC PRN (02:35)
[2018-10-23] MEDS: Ipratropium/Albuterol Neb 3 ML IH SCH ×4 (03:29→22:02)
[2018-10-23] MEDS ORDERED: *HR* LORazepam 2 MG/ML VIAL IVP PRN (03:46)
--- NOTE | 2018-10-23 03:58 | Internal Med History&Physical ---
Date of Encounter: 10/23/18 Time of Encounter: 02:20 Internal Medicine - H&P: HPI Chief complaint: back pain, AMS, UTI Admitted From: Emergency Dept Plans for Post Hospital Care: Home History of present illness: Ms. Lacy is a 73 year old female who presents to the ER tonight with complaints of back pain, mental status changes according to the family, confusion, and agitation. Workup in ER revealed patient to have UTI from a chronic indwelling Madden catheter. She also had imaging of abdomen and pelvis which revealed mild bilateral hydronephrosis with ureteral stents in place. She also was found to have evidence of a moderate loculated left pleural effusion. She had blood and urine cultures obtained and was given some antibiotics, then subsequently admitted to hospitalist service. Upon my assessment of the patient, she appears to be alert and oriented 3. She is quite anxious and tearful, however. She denies any chest pain. She does have some subtle difficulty in breathing. She also complains of left back/flank pain, which corresponds to her pleural effusion. She denies any cough, but she does complain of shortness of breath. She has had no wheezing. She denies any hemoptysis. She has a chronic indwelling Madden catheter and still makes some urine. She is dialysis dependent and has been on dialysis for the last several months. She denies any high fevers, but she has had chills. Past Med Surg Social Fam HX - Past Medical History Attestation: Yes The following information was validated with the patient. Source: patient, old records reviewed Medical history: arthritis, diabetes, GERD, hyperlipidemia, hypertension, renal disease, other Additional medical history: cdiff. parkinsons Psychiatric history: anxiety, depression - Past Surgical History Surgical History: appendectomy, cholecystectomy, hysterectomy Additional surgical history: Dialysis catheter - Social History Smoking Status: Former smoker Smokeless Tobacco Status: No Alcohol use: none Drug use: none Current living situation: Home, With Family Activity Level: Independent ambulation Recent Out of Country Travel Within the Last 8 Weeks: No - Family History Mother Living Status: Hx Family Cardiac Disorders: Yes Father Living Status: Hx Family Cardiac Disorders: Yes Sister Hx Family Cardiac Disorders: No Hx Family Respiratory Disorders: No Hx Family Cancer: No Hx Family GI Disorders: No Hx Family Endocrine Disorder: Yes Hx Family Neuromuscular Disorders: No Hx Family Neurologic Disorders: No Hx Family HEENT Disorders: No Hx Family Autoimmune Disorders: No Internal Medicine - H&P: Meds Aspirin Enteric Coated [Aspirin EC] 81 mg PO DAILY 08/04/17 [History] Ferrous Sulfate 325 mg PO BIDWM 10/28/17 [History] Insulin ASPART [Novolog Flexpen] 0 unit SQ TID PRN 05/28/18 [History] Isosorbide MONOnitrate (24 HR) [Imdur] 30 mg PO DAILY 05/28/18 [History] Metoprolol Succinate [Toprol Xl] 25 mg PO DAILY 05/28/18 [History] Pravastatin Sodium 10 mg PO HS 07/23/18 [History] Folic Acid/Vit B Complex and C [Dialyvite Tablet] 1 tab PO DAILY 10/22/18 [History] Insulin Glargine,Hum.rec.anlog [Basaglar Kwikpen U-100] 40 unit SQ HS 10/22/18 [History] Allergy/AdvReac Type Severity Reaction Status Date / Time acetaminophen [From Tylenol] Allergy See Verified 07/22/18 11:05 Comments Influenza Virus Vaccines Allergy See Verified 07/22/18 11:05 Comments NSAIDS (Non-Steroidal Allergy See Verified 07/22/18 11:05 Anti-Inflamma Comments - Constitutional Constitutional: chills, night sweats, weakness, no fever(s) - EENT Eyes: no blurry vision, no change in vision Ears: no ear pain, no tinnitus Nose, mouth and throat: no nasal congestion, no sinus pressure, no sore throat - Cardiovascular Cardiovascular ROS IM: dyspnea, dyspnea on exertion, no chest pain, no edema, no lightheadedness, no palpitations, no paroxysmal nocturnal dyspnea, no syncope - Respiratory Respiratory: cough, dyspnea, no hemoptysis, no chest congestion, no excessive phlegm production, no change in phlegm color, no pain with cough - Gastrointestinal Gastrointestinal: nausea, vomiting, no abdominal pain, no diarrhea, no hematemesis, no hematochezia, no melena - Genitourinary Genitourinary: dysuria, flank pain, no hematuria - Musculoskeletal Musculoskeletal ROS IM: back pain (left flank), no arthralgias - Integumentary Integumentary IM: no rash, no jaundice - Neurological Neurological ROS: confusion, no dizziness, no focal weakness, no frequent falls, no headache(s) - Psychiatric Psychiatric: no anxiety, no depression - Endocrine Endocrine IM: no cold intolerance, no heat intolerance, no polydipsia, no polyuria - Allergic/Immunologic Allergic/Immunologic: GI upset with certain foods - Constitutional Vitals: Temp Pulse Resp BP Pulse Ox 97.7 F 78 18 150/69 100 10/23/18 03:15 10/23/18 03:15 10/23/18 03:15 10/23/18 03:15 10/23/18 03:15 General appearance: Present: cooperative, A&O X 2, pleasant, answers questions appropriately Exam: hard of hearing, anxious, minimally confused - Head Head exam: Present: atraumatic, normal inspection - Eye Eye exam: Present: EOMI, PERRL. Absent: scleral icterus Pupils: Present: normal accommodation - ENT ENT exam: Present: mucous membranes dry, normal exam, normal oropharynx - Neck Neck exam general surgery: Present: full ROM, supple, trachea midline. Absent: lymphadenopathy, tenderness, nuchal rigidity, thyromegaly - Respiratory Respiratory exam: Present: decreased breath sounds (left lower lung field), rhonchi, wheezes. Absent: accessory muscle use, chest wall tenderness, rales, respiratory distress - Cardiovascular Cardiovascular exam: Present: distant heart sounds, +S1, +S2. Absent: diastolic murmur, systolic murmur - GI/Abdominal GI/Abdominal exam: Present: normal bowel sounds, soft. Absent: guarding, hepatomegaly, mass, rebound, splenomegaly, tenderness - Extremities Exam Extremities exam: Present: normal capillary refill, warm, radial pulses palpable and symmetrical. Absent: calf tenderness, joint swelling, pedal edema, tenderness - Back Exam Back exam: Present: CVA tenderness (L), normal inspection. Absent: CVA tenderness (R) - Neurological Exam Neurological exam: Present: alert, CN II-XII intact, no focal deficits, strengths equal and symetr throughout. Absent: oriented X3 - Psychiatric Psychiatric exam: Present: anxious - Skin Skin exam: Present: dry, intact, warm Internal Med - H&P Results - Labs CBC & Chem 7: 10/22/18 13:57 10/22/18 13:57 Labs: Short CBC 10/22/18 Range/Units 13:57 WBC 7.0 (4.3-11.1) K/mcL Hgb 11.4 L (11.5-15.4) g/dL Hct 37.0 (35.3-44.9) % Plt Count 258 (140-400) K/mcL Neutrophils # 4.5 (1.6-8.9) K/mcL BMP 10/22/18 13:57 Sodium 129 L Potassium 5.1 Chloride 95 L Carbon Dioxide 24 BUN 43 H Creatinine 3.10 H Glucose 315 H Calcium 8.8 Cardiac Enzymes 10/22/18 Range/Units 13:57 Troponin I 0.03 (< 0.04) ng/mL Liver Function 10/22/18 Range/Units 13:57 Total Bilirubin 0.3 (0.3-1.0) mg/dL Direct Bilirubin 0.2 (0.0-0.2) mg/dL AST 14 (13-39) Units/L ALT 16 (7-52) Units/L Alkaline Phosphatase 151 H (34-104) Units/L Albumin 3.3 L (3.5-5.7) g/dL Urine 10/22/18 Range/Units 14:47 Urine Color Yellow (Yellow) Urine Clarity Turbid A (Clear) Urine pH 7.0 (5.0-8.0) pH Units Ur Specific [place] 1.009 L (1.010-1.025) Urine Protein >=300 H (Neg-Trace) mg/dL Urine Glucose (UA) 250 H (Normal) mg/dL - Impressions ITS Impressions Chest X-Ray 10/22/18 13:26 IMPRESSION: Increased volume of a moderate left-sided pleural effusion with associated edema and atelectasis in the left lung. D/ / William Martin MD / William Martin MD Interpreting Provider: William Martin MD Head CT 10/22/18 13:26 IMPRESSION: No acute intracranial abnormality. D/ / 10/22/2018 18:22:32 Gab Stanley MD / [email or web address] Interpreting Provider: Gab Stanley MD Abdomen/Pelvis CT 10/22/18 13:27 IMPRESSION: Mild bilateral hydronephrosis with ureteral stents. No definite renal calculus. Moderate loculated left pleural effusion. D/ / 10/22/2018 18:29:42 Gab Stanley MD / galilea Interpreting Provider: Gab Stanley MD - Diagnostic Studies Chest x-ray Status: image reviewed by me (large left pleural effusion) - Assessment and Plan (1) Encephalopathy acute Current Visit: Yes Status: Acute Assessment and plan: 1. Likely due to UTI. 2. Patient with minimal confusion now; however, family not present to confirm baseline. 3. Minimize sedating meds and monitor clinically for improvement. (2) UTI (urinary tract infection) due to urinary indwelling Madden catheter Current Visit: Yes Status: Acute Assessment and plan: 1. Follow urine culture results. 2. Will place on Vancomycin and Levaquin to cover organisms as well as MRSA, which she had in recent urine culture. Qualifiers: Indwelling urinary catheter type: indwelling urethral catheter Encounter type: initial encounter Qualified Code(s): T83.511A - Infection and inflammatory reaction due to indwelling urethral catheter, initial encounter; N39.0 - Urinary tract infection, site not specified (3) ESRD (end stage renal disease) on dialysis Current Visit: Yes Status: Chronic Assessment and plan: 1. Consult nephrology for HD needs. (4) Pleural effusion Current Visit: Yes Status: Acute Assessment and plan: 1. Will order CT chest to better evaluate. 2. Could be due to pneumonia. Follow blood cultures and continue above antibiotics. 3. May need diagnostic and therapeutic thoracentesis. 4. 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 (5) DVT prophylaxis Current Visit: Yes Status: Acute Assessment and plan: 1. Heparin SQ.
[2018-10-23 05:30] LABS: Basophils % 0.4 %; Eosinophils # 0.1 K/mcL (0.0-0.6); Eosinophils % 1.5 %; Hematocrit 38.7 % (35.3-44.9); Hemoglobin 12.1 g/dL (11.5-15.4); Immature Granulocytes % 0.7 % (0-4); Lymphocytes # 1.5 K/mcL (0.6-4.6); Lymphocytes % 21.5 %; Mean Corpuscular HGB Conc 31.3 g/dL (31.6-35.5); Mean Corpuscular Hemoglobin 28.2 pg (28.0-33.3); Mean Corpuscular Volume 90.2 fL (83.0-100.0); Mean Platelet Volume 9.2 fL (9.4-12.4); Monocytes # 0.4 K/mcL (0.0-1.3); Monocytes % 6.5 %; Neutrophils # 4.7 K/mcL (1.6-8.9); Platelet Count 295 K/mcL (140-400); Red Blood Count 4.29 M/mcL (3.82-4.97); Red Cell Distribution Width 15.2 % (11.5-14.5); Segmented Neutrophils % 69.4 %
[2018-10-23 05:39] LABS: Albumin 3.3 g/dL (3.5-5.7); Albumin/Globulin Ratio 0.6 (1.1-2.2); Bilirubin,Total 0.4 mg/dL (0.3-1.0); Calcium 9.1 mg/dL (8.6-10.3); Globulin 5.8 g/dL (2.4-3.5); Magnesium 1.8 mg/dL (1.6-2.6); Potassium 4.4 mEq/L (3.5-5.1); Total Protein 9.1 g/dL (6.4-8.9)
[2018-10-23] MEDS ORDERED: Levofloxacin 750 MG/150 ML 750 MG/150 ML BAG IVPB ONE (06:00)
[2018-10-23] MEDS ORDERED: Levofloxacin 750 MG/150 ML 750 MG/150 ML BAG IVPB SCH (06:00)
[2018-10-23] MEDS: *HR* Heparin 5,000 UNIT/ML VIAL SQ SCH ×2 (06:03→17:31)
[2018-10-23] MEDS ORDERED: Ondansetron 4 MG/2 ML VIAL IVP PRN (08:08)
[2018-10-23] MEDS ORDERED: 0.9 % Sodium Chloride 250 ML IVC PRN (08:20)
[2018-10-23] MEDS ORDERED: 0.9 % Sodium Chloride 1,000 ML PRIME SCH (08:30)
[2018-10-23] MEDS ORDERED: Insulin DETEMIR 100 UNIT/ML X5UNITS SQ SCH (09:00)
[2018-10-23] MEDS: Insulin LISPRO 300 UNITS/3 ML VIAL SQ SCH ×3 (09:03→16:47)
[2018-10-23] MEDS ORDERED: 0.9 % Sodium Chloride 1,000 ML ONE (09:05)
[2018-10-23] MEDS: Renal Vitamin 1 CAP CAPSULE PO SCH (09:14)
[2018-10-23] MEDS: Metoprolol XL (24 HR) Succ 25 MG TAB.ER.24H PO SCH (09:14)
[2018-10-23] MEDS: Aspirin Enteric Coated 81 MG Tablet PO SCH (09:14)
[2018-10-23] MEDS: Isosorbide MONOnitrate (24 HR) 30 MG TAB.ER.24H PO SCH (09:14)
--- NOTE | 2018-10-23 09:19 | Nephrology Consult Note ---
Date of Encounter: 10/23/18 Time of Encounter: 13:30 Assessment and Plan (1) ESRD (end stage renal disease) on dialysis Current Visit: Yes Status: Chronic She is ESRD on thrice weekly hemodialysis, Thursday//Thursday, and will need renal replacement therapy today (Thursday), which I have ordered. Addendum, after several attempts via the dialysis nurse and myself, I tried to persuade her to go to the dialysis unit as scheduled today. However she continues to refuse saying she has too much N/V. I also updated the floor nurse of these changes, and most likely her next treatment will be on Thursday (we typically reserve Thursday for urgent dialysis situations). She should have a renal diet, when her diet is allowed to be advanced. Thank you for consulting the [facility] group, and I will continue to follow with you to maintain her dialysis. (2) Encephalopathy acute Current Visit: Yes Status: Acute As per primary. I do not suspect uremia as the etiology. Suspecting infection in the differential diagnosis as the etiology for the acute encephalopathy. She has a hx of frequent UTIs. (3) Abdominal pain Current Visit: No Status: Acute As per primary. She has been tried with Zofran and the pt seemed to think that this Rx made her even more Nauseated. Discussed with the floor RN. Qualifiers: Abdominal location: epigastric Qualified Code(s): R10.13 - Epigastric pain (4) Failure to thrive Current Visit: Yes Status: Chronic Ongoing. Goal serum Albumin is 4.0 in ESRD patients, so when her diet is advanced, I recommend increased protein with low Phosphorous. Qualifiers: Failure to thrive age range: in adult Qualified Code(s): R62.7 - Adult failure to thrive (5) Complicated UTI (urinary tract infection) Current Visit: No Status: Acute As per primary History of Present Illness - Reason for Consult Consult date: 10/23/18 end stage renal disease Requesting physician: Jhonathan Lambert - Chief Complaint ESRD - History of Present Illness The patient is a 73-year-old female well known to the [facility] group with a past medical history of ESRD on HD every Thursday//Thursday who presented to the hospital, and nephrology was consulted. She was not able to provide a very thorough history of present illness, but did report having abdominal pain and several days onset of nausea and vomiting. She seems to think her nausea worsened today when receiving Zofran. One of her relatives, a kind gentleman, was present but left quickly upon my arrival (he said he was planning to leave). The history of present illness and review of systems were limited due to her altered mental status. Past Med Surg Social Fam HX - Past Medical History Medical history: arthritis, diabetes, GERD, hyperlipidemia, hypertension, renal disease, other Additional medical history: cdiff. parkinsons Psychiatric history: anxiety, depression - Past Surgical History Surgical History: appendectomy, cholecystectomy, hysterectomy Additional surgical history: Dialysis catheter - Social History Smoking Status: Former smoker Smokeless Tobacco Status: No Alcohol use: none Drug use: none - Family History Mother Living Status: Hx Family Cardiac Disorders: Yes Father Living Status: Hx Family Cardiac Disorders: Yes Sister Hx Family Cardiac Disorders: No Hx Family Respiratory Disorders: No Hx Family Cancer: No Hx Family GI Disorders: No Hx Family Endocrine Disorder: Yes Hx Family Neuromuscular Disorders: No Hx Family Neurologic Disorders: No Hx Family HEENT Disorders: No Hx Family Autoimmune Disorders: No Medications and Allergies Aspirin Enteric Coated [Aspirin EC] 81 mg PO DAILY 08/04/17 [History] Ferrous Sulfate 325 mg PO BIDWM 10/28/17 [History] Insulin ASPART [Novolog Flexpen] 0 unit SQ TID PRN 05/28/18 [History] Isosorbide MONOnitrate (24 HR) [Imdur] 30 mg PO DAILY 05/28/18 [History] Metoprolol Succinate [Toprol Xl] 25 mg PO DAILY 05/28/18 [History] Pravastatin Sodium 10 mg PO HS 07/23/18 [History] Folic Acid/Vit B Complex and C [Dialyvite Tablet] 1 tab PO DAILY 10/22/18 [History] Insulin Glargine,Hum.rec.anlog [Basaglar Kwikpen U-100] 40 unit SQ HS 10/22/18 [History] Allergy/AdvReac Type Severity Reaction Status Date / Time acetaminophen [From Tylenol] Allergy See Verified 07/22/18 11:05 Comments Influenza Virus Vaccines Allergy See Verified 07/22/18 11:05 Comments NSAIDS (Non-Steroidal Allergy See Verified 07/22/18 11:05 Anti-Inflamma Comments Review of Systems ROS unobtainable: due to mental status Exam - Vital Signs Vital signs: Initial Vital Signs Temp Pulse Resp BP Pulse Ox 98.7 F 78 18 111/57 98 10/22/18 13:40 10/22/18 13:40 10/22/18 13:40 10/22/18 13:40 10/22/18 13:40 Vital Signs - Last 8 Hours Temp Pulse Resp BP Pulse Ox 10/23/18 08:01 97.8 F 79 16 152/86 99 10/23/18 03:15 97.7 F 78 18 150/69 100 Intake and Output 10/22/18 10/23/18 10/23/18 23:59 07:59 15:59 Output Total 300 / 300 Balance -300 / -300 Output: Catheter 300 / 300 Other: Stool Size Moderate Stool Consistency formed Stool Color Brown # Bowel Movement Diapers 1 Weight 60.3 kg 60.4 kg Blood Glucose* 257 Patient Weight 10/23/18 23:59 Weight 60.4 kg - General Appearance General appearance: cachectic, chronically ill, fatigue, frail EENT: ATNC, PERRL, mucous membranes moist Neck: supple Respiratory: clear Cardiology: no edema, regular rate, regular rhythm, normal S1, normal S2 - Dialysis Access Dialysis Vascular Access: Venous Catheter (Left sided Permacath though exit site exam was limited d/t her refusal to come to the HD unit (where a complete exit site exam occurs)) Gastrointestinal: normoactive bowel sounds, tenderness, no guarding Integumentary: warm and dry Neurologic: confused, disoriented Additional Comments: She moved all four extremities Musculoskeletal: no cyanosis, no clubbing Additional Comments: Uncooperative Results - Lab Results 10/23/18 05:05 10/23/18 05:05 Most recent lab results Calcium 9.1 mg/dL (8.6-10.3) 10/23/18 05:05 Magnesium 1.8 mg/dL (1.6-2.6) 10/23/18 05:05 Consult Discharge Plan - Plan Referrals: Macario Diallo MD [Primary Care Provider] - (Follow up appointment has been requested. Office will call with date and time of appointment. )
[2018-10-23 11:15] LABS: Hepatitis B Surface Antibody 3.31 mIU/mL
[2018-10-23 11:25] LABS: Hepatitis B Surface Antigen Nonreactive (Nonreactive)
[2018-10-23] MEDS ORDERED: *HR* Promethazine 25 MG/ML VIAL IVP PRN (11:52)
[2018-10-23] MEDS: Insulin DETEMIR 100 UNIT/ML X5UNITS SQ SCH ×2 (12:52→21:01)
[2018-10-24] MEDS: Ipratropium/Albuterol Neb 3 ML IH SCH ×4 (03:51→22:33)
[2018-10-24] MEDS: *HR* Heparin 5,000 UNIT/ML VIAL SQ SCH ×2 (05:50→18:34)
[2018-10-24] MEDS ORDERED: Vancomycin 500 MG in 0.9 % Sodium Chloride Mini Bag 100 ML IVPB ONE ×2 (07:00→14:00)
--- NOTE | 2018-10-24 08:51 | Event Note ---
Date of Encounter: 10/24/18 Time of Encounter: 08:50 - Nephrology Event Note Nephrology chart update No new labs available today (Thursday). Yesterday the patient refused several times to the dialysis nurse to undergo dialysis, and I personally spoke with her as well, but she still declined dialysis. I will tentatively plan for more dialysis tomorrow, and in the meantime please feel free to call or page me with any nephrology related questions. Thank you
[2018-10-24] MEDS: Insulin LISPRO 300 UNITS/3 ML VIAL SQ SCH ×3 (09:14→18:34)
[2018-10-24] MEDS: Aspirin Enteric Coated 81 MG Tablet PO SCH (09:15)
[2018-10-24] MEDS: Isosorbide MONOnitrate (24 HR) 30 MG TAB.ER.24H PO SCH (09:15)
[2018-10-24] MEDS: Renal Vitamin 1 CAP CAPSULE PO SCH (09:15)
[2018-10-24] MEDS: Insulin DETEMIR 100 UNIT/ML X5UNITS SQ SCH ×2 (09:15→21:34)
[2018-10-24] MEDS: Metoprolol XL (24 HR) Succ 25 MG TAB.ER.24H PO SCH (09:15)
--- NOTE | 2018-10-24 11:41 | Internal Med Progress Note ---
Hospitalist Progress Note - Encounter Date of Encounter: 10/24/18 Time of Encounter: 11:36 - Subjective Interval History: Pt seen and examined in the room She is still agitated at times. Refused meds and morning labs. - Exam Vitals: Temp Pulse Resp BP Pulse Ox 97.5 F L 77 14 127/77 100 10/24/18 11:18 10/24/18 11:18 10/24/18 11:18 10/24/18 11:18 10/24/18 11:18 Exam: hard of hearing, anxious, minimally confused - Assessment and Plan (1) Pleural effusion Current Visit: Yes Status: Acute Assessment and Plan: 1. Will order CT chest to better evaluate. 2. Could be due to pneumonia. Follow blood cultures and continue above antibiotics. 3. May need diagnostic and therapeutic thoracentesis. 4. 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 10/24 CT showed left side loculated pleural effusion. possible PNA. No signs of empyema. continur current IV abx with levaquin and vanco. (2) Encephalopathy acute Current Visit: Yes Status: Acute Assessment and Plan: 10/23 1. Likely due to UTI. 2. Patient with minimal confusion now; however, family not present to confirm baseline. 3. Minimize sedating meds and monitor clinically for improvement. 10/24 Likely due to PNA and UTI. Urine cx positive for E.coli. CT chest showed possible PNA. Continue current IV abx. (3) UTI (urinary tract infection) due to urinary indwelling Madden catheter Current Visit: Yes Status: Acute Assessment and Plan: 10/23. 1. Follow urine culture results. 2. Will place on Vancomycin and Levaquin to cover organisms as well as MRSA, which she had in recent urine culture. 10/24 Urine cx positive for E.coli. current IV abx covers E.coli. (4) ESRD (end stage renal disease) on dialysis Current Visit: Yes Status: Chronic Assessment and Plan: refused HD yesterday. Renal following. (5) DVT prophylaxis Current Visit: Yes Status: Acute Assessment and Plan: 1. Heparin SQ. (6) PNA (pneumonia) Current Visit: Yes Status: Acute Assessment and Plan: CT chest showed possible PNA> Continue current IV abx with Vanco and Levaquin. - Time Spent with Patient Total time spent is greater than 50% in coordination of care (as documented) at patient's floor/unit and/or counseling patient: Greater than 35 minutes Plan of Care Discussed with: patient Internal Medicine: Result - Labs CBC & Chem 7: 10/23/18 05:05 10/23/18 05:05 Labs: Cardiac Enzymes 10/23/18 Range/Units 16:46 Troponin I 0.03 (< 0.04) ng/mL - ABG Interpretation ABG results: PT/INR, D-dimer PT 13.0 Seconds (9.4-12.1) H 10/22/18 13:57 - Impressions Impressions Chest CT 10/23/18 02:35 IMPRESSION: Moderate-large loculated left pleural effusion. Ground-glass right lung opacities are nonspecific but likely infectious. Small right pleural effusion. Mild diffuse esophageal wall thickening. D/ / 10/23/2018 12:41:04 Gab Stanley MD / galilea Interpreting Provider: Gab Stanley MD Consult Discharge Plan - Plan Referrals: Macario Diallo MD [Primary Care Provider] - (Follow up appointment has been requested. Office will call with date and time of appointment. ) (3) UTI (urinary tract infection) due to urinary indwelling Madden catheter Qualifiers: Indwelling urinary catheter type: indwelling urethral catheter Encounter type: initial encounter Qualified Code(s): T83.511A - Infection and inflammatory reaction due to indwelling urethral catheter, initial encounter; N39.0 - Urinary tract infection, site not specified (6) PNA (pneumonia) Qualifiers: Pneumonia type: due to unspecified organism Laterality: unspecified laterality Lung location: unspecified part of lung Qualified Code(s): J18.9 - Pneumonia, unspecified organism
[2018-10-24] MEDS: traMADol 50 MG TABLET PO PRN (15:37)
[2018-10-25] MEDS: Ipratropium/Albuterol Neb 3 ML IH SCH ×4 (03:45→21:48)
[2018-10-25] MEDS: *HR* Heparin 5,000 UNIT/ML VIAL SQ SCH ×2 (04:56→17:17)
[2018-10-25 04:57] LABS: Basophils % 0.5 %; Eosinophils # 0.2 K/mcL (0.0-0.6); Hematocrit 36.9 % (35.3-44.9); Hemoglobin 11.3 g/dL (11.5-15.4); Immature Granulocytes % 0.6 % (0-4); Lymphocytes # 1.3 K/mcL (0.6-4.6); Lymphocytes % 20.6 %; Mean Corpuscular HGB Conc 30.6 g/dL (31.6-35.5); Mean Corpuscular Hemoglobin 28.6 pg (28.0-33.3); Mean Corpuscular Volume 93.4 fL (83.0-100.0); Mean Platelet Volume 9.4 fL (9.4-12.4); Monocytes # 0.5 K/mcL (0.0-1.3); Monocytes % 7.8 %; Neutrophils # 4.3 K/mcL (1.6-8.9); Platelet Count 289 K/mcL (140-400); Red Blood Count 3.95 M/mcL (3.82-4.97); Red Cell Distribution Width 15.6 % (11.5-14.5); Segmented Neutrophils % 67.5 %
[2018-10-25 05:14] LABS: Calcium 8.4 mg/dL (8.6-10.3); Potassium 5.1 mEq/L (3.5-5.1)
[2018-10-25] MEDS ORDERED: Levofloxacin 500 MG/100 ML 500 MG/100 ML BAG IVPB SCH (06:00)
[2018-10-25] MEDS ORDERED: 0.9 % Sodium Chloride 250 ML IVC PRN (07:05)
[2018-10-25] MEDS: Insulin LISPRO 300 UNITS/3 ML VIAL SQ SCH ×3 (10:07→17:17)
[2018-10-25] MEDS: Metoprolol XL (24 HR) Succ 25 MG TAB.ER.24H PO SCH (10:08)
[2018-10-25] MEDS: Renal Vitamin 1 CAP CAPSULE PO SCH (10:08)
[2018-10-25] MEDS: Isosorbide MONOnitrate (24 HR) 30 MG TAB.ER.24H PO SCH (10:08)
[2018-10-25] MEDS: Aspirin Enteric Coated 81 MG Tablet PO SCH (10:08)
[2018-10-25] MEDS: Insulin DETEMIR 100 UNIT/ML X5UNITS SQ SCH ×2 (10:08→21:28)
--- NOTE | 2018-10-25 11:13 | Nephrology Progress Note ---
Addendum entered and electronically signed by Cruzito Alan DO 10/25/18 21:35: I examined this patient and my medical decision-making was reviewed with the Resident Physician. I agree with the documented findings, disposition and treatment plan as described except to the extent set forth below. Because she refused to have dialysis on Thursday, she typically is ESRD on HD TTS, I recommend she has HD today. Original Note: Date of Encounter: 10/25/18 Time of Encounter: 11:11 - Assessment and Plan (1) ESRD (end stage renal disease) on dialysis Current Visit: Yes Status: Chronic Current regimen is TTS at [facility]. Had planned for UF on Thursday, but patient was so nauseated she was unable and refused. HD in progress. Renal diet Renal vitamins Strict I/O Avoid nephrotoxins and renal dose all medications. (2) Abdominal pain Current Visit: No Status: Acute As per primary. She has been tried with Zofran and the pt seemed to think that this Rx made her even more Nauseated. Discussed with the floor RN. Qualifiers: Abdominal location: epigastric Qualified Code(s): R10.13 - Epigastric pain (3) Complicated UTI (urinary tract infection) Current Visit: No Status: Acute As per primary (4) Failure to thrive Current Visit: Yes Status: Chronic Ongoing. Goal serum Albumin is 4.0 in ESRD patients, so when her diet is advanced, I recommend increased protein with low Phosphorous. Qualifiers: Failure to thrive age range: in adult Qualified Code(s): R62.7 - Adult failure to thrive (5) Encephalopathy acute Current Visit: Yes Status: Acute Likely related to infection, not uremia. Per primary. Subjective Principal diagnosis: AMS Interval history: Patient seen and examined and dialysis. Denies chest pain or shortness of breath. Denies nausea, vomiting, diarrhea. Appears more alert today. Objective - Vital Signs Vital signs: Vital Signs Temp Pulse Resp BP Pulse Ox 10/25/18 09:59 18 95 10/25/18 07:41 97.8 F 78 15 112/67 99 10/25/18 03:46 18 95 10/25/18 02:32 97.8 F 90 16 118/58 95 10/24/18 22:33 16 95 10/24/18 21:27 97.5 F L 84 16 130/70 95 10/24/18 15:37 16 91 10/24/18 15:14 97.5 F L 79 14 138/79 100 10/24/18 11:18 97.5 F L 77 14 127/77 100 Intake and Output 10/24/18 10/25/18 10/25/18 23:59 07:59 15:59 Intake Total 100 / 100 360 / 360 Balance 100 / 100 360 / 360 Intake: IV Fluids 100 / 100 Levaquin Premix 500mg/100mL 500 100 / 100 mg In 100 ml @ 100 mls/hr IVPB Q48H [facility] Rx#:[id number] Oral 360 / 360 Other: Meal Breakfast Percent of Meal Consumed 10% Weight 59 kg Blood Glucose* 184 147 Patient Weight 10/25/18 23:59 Weight 59 kg - General Appearance General appearance: Present: fatigue, frail EENT: Present: ATNC, hearing intact, vision intact Neck: Present: supple Respiratory: Present: clear Cardiology: Present: no edema, normal S1, normal S2 Dialysis Vascular Access: Venous Catheter (DRSG C/D/I) Gastrointestinal: Present: normoactive bowel sounds, no tenderness, no guarding Integumentary: Present: no rash, warm and dry Neurologic: Present: alert and oriented x3 Musculoskeletal: Present: no deformities, no erythema Psychiatric: Present: mood/affect appropriate, cooperative - Lab 10/25/18 03:42 10/25/18 03:42 Most recent lab results Calcium 8.4 mg/dL (8.6-10.3) L 10/25/18 03:42 Magnesium 1.8 mg/dL (1.6-2.6) 10/23/18 05:05 Consult Discharge Plan - Plan Referrals: Macario Diallo MD [Primary Care Provider] - 11/01/18 10:15 am ()
[2018-10-25] MEDS ORDERED: Aminoglycoside Consult 1 EACH MC ONE (15:15)
--- NOTE | 2018-10-25 15:43 | Internal Med Progress Note ---
Hospitalist Progress Note - Encounter Date of Encounter: 10/25/18 Time of Encounter: 15:39 - Subjective Interval History: Pt seen and examined in the room. She came back from HD. Feels better but not ready to go home yet. No sob, cough, fever, N/V, or diarrhea. - Exam Vitals: Temp Pulse Resp BP Pulse Ox 97.9 F 85 18 125/69 95 10/25/18 14:41 10/25/18 14:41 10/25/18 14:41 10/25/18 14:41 10/25/18 14:41 Exam: PHYSICAL EXAMINATION: GENERAL APPEARANCE: The patient is alert, oriented and in no acute distress. HEENT: Head is normocephalic. The sinuses are nontender. Pupils are equal and reactive. The nares are patent. Oropharynx clear without lesions. NECK: Supple without lymphadenopathy. HEART: Regular rate and rhythm. LUNGS: No crackles or wheezes are heard. ABDOMEN: Soft, nontender, nondistended with good bowel sounds heard. Inguinal area is normal. EXTREMITIES: Without cyanosis, clubbing or edema. NEUROLOGICAL: Gross nonfocal. SKIN: Warm and dry without any rash. - Assessment and Plan (1) Acute metabolic encephalopathy Current Visit: Yes Status: Acute Assessment and Plan: 10/23 1. Likely due to UTI. 2. Patient with minimal confusion now; however, family not present to confirm baseline. 3. Minimize sedating meds and monitor clinically for improvement. 10/24 Likely due to PNA and UTI. Urine cx positive for E.coli. CT chest showed possible PNA. Continue current IV abx. 10/25 Improving, continue current treatment for UTI and PNA. Continue HD per renal. (2) Pleural effusion Current Visit: Yes Status: Acute Assessment and Plan: 10/[address] chest to better evaluate. 2. Could be due to pneumonia. Follow blood cultures and continue above antibiotics. 3. May need diagnostic and therapeutic thoracentesis. 4. 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 10/24 CT showed left side loculated pleural effusion. possible PNA. No signs of empyema. continue current IV abx with levaquin and vanco. 10/25 Continue current treatment. (3) UTI (urinary tract infection) due to urinary indwelling Madden catheter Current Visit: Yes Status: Acute Assessment and Plan: 10/23. 1. Follow urine culture results. 2. Will place on Vancomycin and Levaquin to cover organisms as well as MRSA, which she had in recent urine culture. 10/24 Urine cx positive for E.coli. current IV abx covers E.coli. (4) ESRD (end stage renal disease) on dialysis Current Visit: Yes Status: Chronic Assessment and Plan: refused HD yesterday. Renal following. (5) PNA (pneumonia) Current Visit: Yes Status: Acute Assessment and Plan: CT chest showed possible PNA. Continue current IV abx with Vanco and Levaquin. (6) DVT prophylaxis Current Visit: Yes Status: Acute Assessment and Plan: 1. Heparin SQ. - Time Spent with Patient Total time spent is greater than 50% in coordination of care (as documented) at patient's floor/unit and/or counseling patient: Greater than 35 minutes Plan of Care Discussed with: patient Internal Medicine: Result - Labs CBC & Chem 7: 10/25/18 03:42 10/25/18 03:42 Labs: Short CBC 10/25/18 Range/Units 03:42 WBC 6.4 (4.3-11.1) K/mcL Hgb 11.3 L (11.5-15.4) g/dL Hct 36.9 (35.3-44.9) % Plt Count 289 (140-400) K/mcL Neutrophils # 4.3 (1.6-8.9) K/mcL BMP 10/25/18 03:42 Sodium 136 Potassium 5.1 Chloride 101 Carbon Dioxide 23 BUN 60 H Creatinine 3.87 H Glucose 154 H Calcium 8.4 L - ABG Interpretation ABG results: PT/INR, D-dimer PT 13.0 Seconds (9.4-12.1) H 10/22/18 13:57 Consult Discharge Plan - Plan Referrals: Macario Diallo MD [Primary Care Provider] - 11/01/18 10:15 am () (3) UTI (urinary tract infection) due to urinary indwelling Madden catheter Qualifiers: Indwelling urinary catheter type: indwelling urethral catheter Encounter type: initial encounter Qualified Code(s): T83.511A - Infection and inflammatory reaction due to indwelling urethral catheter, initial encounter; N39.0 - Urinary tract infection, site not specified (5) PNA (pneumonia) Qualifiers: Pneumonia type: due to unspecified organism Laterality: unspecified late rality Lung location: unspecified part of lung Qualified Code(s): J18.9 - Pneumonia, unspecified organism
[2018-10-26] MEDS: traMADol 50 MG TABLET PO PRN (02:01)
[2018-10-26 02:18] LABS: Basophils % 0.5 %; Eosinophils # 0.1 K/mcL (0.0-0.6); Eosinophils % 1.9 %; Hematocrit 34.2 % (35.3-44.9); Immature Granulocytes % 0.5 % (0-4); Lymphocytes # 1.1 K/mcL (0.6-4.6); Lymphocytes % 17.4 %; Mean Corpuscular HGB Conc 32.2 g/dL (31.6-35.5); Mean Corpuscular Hemoglobin 28.6 pg (28.0-33.3); Mean Corpuscular Volume 89.1 fL (83.0-100.0); Mean Platelet Volume 9.1 fL (9.4-12.4); Monocytes # 0.5 K/mcL (0.0-1.3); Monocytes % 8.4 %; Neutrophils # 4.4 K/mcL (1.6-8.9); Platelet Count 269 K/mcL (140-400); Red Blood Count 3.84 M/mcL (3.82-4.97); Red Cell Distribution Width 15.6 % (11.5-14.5); Segmented Neutrophils % 71.3 %
[2018-10-26 02:34] LABS: Calcium 8.4 mg/dL (8.6-10.3); Potassium 4.4 mEq/L (3.5-5.1)
[2018-10-26] MEDS: Ipratropium/Albuterol Neb 3 ML IH SCH ×2 (03:53→11:19)
[2018-10-26] MEDS: *HR* Heparin 5,000 UNIT/ML VIAL SQ SCH (05:34)
[2018-10-26] MEDS ORDERED: 0.9 % Sodium Chloride 250 ML IVC PRN (07:48)
[2018-10-26] MEDS ORDERED: 0.9 % Sodium Chloride 1,000 ML PRIME SCH (08:00)
[2018-10-26] MEDS: Insulin DETEMIR 100 UNIT/ML X5UNITS SQ SCH (08:08)
[2018-10-26] MEDS: Insulin LISPRO 300 UNITS/3 ML VIAL SQ SCH ×2 (08:08→13:16)
--- NOTE | 2018-10-26 09:03 | Discharge Summary ---
- NOTES TO OUTPATIENT PROVIDER Notes to Outpatient Provider: f/u with PCP within a week. F/u with dialysis center as scheduled. Orders not resulted at time of discharge: Pending orders 10/22/18 13:57 Culture,Blood [BC] Stat 10/22/18 15:49 Creatinine,Urine [UCHEM] Stat Sodium, Urine [UCHEM] Stat 10/27/18 04:00 Basic Metabolic Panel AM 0400 CBC [Complete Blood Count] [HEME] AM 0400 10/28/18 04:00 Basic Metabolic Panel AM 0400 CBC [Complete Blood Count] [HEME] AM 0400 10/29/18 04:00 Basic Metabolic Panel AM 0400 CBC [Complete Blood Count] [HEME] AM 040 Date of Encounter: 10/26/18 Time of Encounter: 09:00 - Discharge Diagnosis (1) Acute metabolic encephalopathy Priority: Primary Status: Acute (2) Pleural effusion Priority: Primary Status: Acute (3) UTI (urinary tract infection) due to urinary indwelling Madden catheter Priority: Primary Status: Acute Qualifiers: Indwelling urinary catheter type: indwelling urethral catheter Encounter type: initial encounter Qualified Code(s): T83.511A - Infection and inflammatory reaction due to indwelling urethral catheter, initial encounter; N39.0 - Urinary tract infection, site not specified (4) ESRD (end stage renal disease) on dialysis Priority: Secondary Status: Chronic (5) PNA (pneumonia) Priority: Primary Status: Acute Qualifiers: Pneumonia type: due to unspecified organism Laterality: unspecified laterality Lung location: unspecified part of lung Qualified Code(s): J18.9 - Pneumonia, unspecified organism (6) DVT prophylaxis Priority: Primary Status: Acute Hospital course: Ms. Lacy is a 73 year old female who presents to the ER tonight with complaints of back pain, mental status changes according to the family, confusion, and agitation. Workup in ER revealed patient to have UTI from a chronic indwelling Madden catheter. She also had imaging of abdomen and pelvis which revealed mild bilateral hydronephrosis with ureteral stents in place. She also was found to have evidence of a moderate loculated left pleural effusion. She had blood and urine cultures obtained and was given some antibiotics, then subsequently admitted to hospitalist service. Patient was started on IV antibiotics with Levaquin and vancomycin. She also received regular hemodialysis. Urine culture grew Escherichia coli. After 3 days of treatment, patient mental status has significantly improved. The antibiotics has tailored to oral Levaquin based on the sensitivity studies. On the discharge today, patient vital signs were stable, labs were unremarkable. She is discharged home, continue hemodialysis as scheduled. Continue oral anti biotics for 14 more days. Follow-up with PCP within a week. Discharge discussed with: patient Time spent discussing smoking cessation with patient: more than 10 minutes - Time Spent with Patient Total time spent providing and/or coordinating discharge services: Time spent: Greater than 30 minutes - Discharge Medications Prescriptions: New levoFLOXacin [Levaquin] 500 mg PO Q48H #7 tablet Continue Aspirin Enteric Coated [Aspirin EC] 81 mg PO DAILY Ferrous Sulfate 325 mg PO BIDWM Isosorbide MONOnitrate (24 HR) [Imdur] 30 mg PO DAILY Metoprolol Succinate [Toprol Xl] 25 mg PO DAILY Insulin ASPART [Novolog Flexpen] 0 unit SQ TID PRN PRN Reason: sliding scale Pravastatin Sodium 10 mg PO HS Folic Acid/Vit B Complex and C [Dialyvite Tablet] 1 tab PO DAILY Insulin Glargine,Hum.rec.anlog [Basaglar Kwikpen U-100] 40 unit SQ HS Home Medications: Aspirin Enteric Coated [Aspirin EC] 81 mg PO DAILY 08/04/17 [History] Ferrous Sulfate 325 mg PO BIDWM 10/28/17 [History] Insulin ASPART [Novolog Flexpen] 0 unit SQ TID PRN 05/28/18 [History] Isosorbide MONOnitrate (24 HR) [Imdur] 30 mg PO DAILY 05/28/18 [History] Metoprolol Succinate [Toprol Xl] 25 mg PO DAILY 05/28/18 [History] Pravastatin Sodium 10 mg PO HS 07/23/18 [History] Folic Acid/Vit B Complex and C [Dialyvite Tablet] 1 tab PO DAILY 10/22/18 [History] Insulin Glargine,Hum.rec.anlog [Basaglar Kwikpen U-100] 40 unit SQ HS 10/22/18 [History] levoFLOXacin [Levaquin] 500 mg PO Q48H #7 tablet 10/26/18 [Rx] Allergies/Adverse Reactions: Allergy/AdvReac Type Severity Reaction Status Date / Time acetaminophen [From Tylenol] Allergy See Verified 07/22/18 11:05 Comments Influenza Virus Vaccines Allergy See Verified 07/22/18 11:05 Comments NSAIDS (Non-Steroidal Allergy See Verified 07/22/18 11:05 Anti-Inflamma Comments Date of admission: 10/23/18 02:36 Primary care physician: Macario Diallo MD Consults: 10/22/18 21:58 Consult to Clinical Biochemist [CONS] Routine Reason for SW Consult: pt may need services when discharged claims shes not happy how her family is taking care of her at home 10/23/18 04:05 Consult to Nephrology [CONS] Routine Consulting Provider: [facility] Isis/SHAINA/FARTUN/HEAVEN Reason for Consult: ESRD on HD; HD needs. Call Completed: Yes 10/23/18 08:30 Consult to Dialysis [CONS] ONCE 10/25/18 07:15 Consult to Dialysis [CONS] ONCE 10/25/18 08:05 Consult to Nurse Navigator [CONS] Routine Comment: PNEUMONIA, ESRD 10/26/18 08:00 Consult to Dialysis [CONS] QTUTHSA 10/28/18 08:00 Consult to Dialysis [CONS] QTUTHSA Anticipated date of discharge: 10/26/18 - Constitutional Vitals: Temp Pulse Resp BP Pulse Ox 97.8 F 87 17 114/60 99 10/26/18 08:02 10/26/18 08:02 10/26/18 08:02 10/26/18 08:02 10/26/18 08:02 General appearance: Present: cooperative, A&O X 3, pleasant, answers questions appropriately Exam: PHYSICAL EXAMINATION: GENERAL APPEARANCE: The patient is alert, oriented and in no acute distress. HEENT: Head is normocephalic. The sinuses are nontender. Pupils are equal and reactive. The nares are patent. Oropharynx clear without lesions. NECK: Supple without lymphadenopathy. HEART: Regular rate and rhythm. LUNGS: No crackles or wheezes are heard. ABDOMEN: Soft, nontender, nondistended with good bowel sounds heard. Inguinal area is normal. EXTREMITIES: Without cyanosis, clubbing or edema. NEUROLOGICAL: Gross nonfocal. SKIN: Warm and dry without any rash. - Patient Status Disposition: Home, Self-Care Condition: Good Functional capacity at discharge: independent ambulation Overall status at discharge: patient is progressing back to baseline - Discharge Instructions Follow Up With: Macario Diallo MD [Primary Care Provider] - 11/01/18 10:15 am () Forms: ED Satisfaction Letter - Diet and Activity Activity: increase activity as tolerated Diet: diabetic diet
--- NOTE | 2018-10-26 09:47 | Nephrology Progress Note ---
Addendum entered and electronically signed by Cruzito Alan, 10/26/18 12:55: I have personally performed a face to face evaluation on this patient. I have reviewed and agree with the care plan. History and Exam by me shows: ESRD on HD TTS and she is due to resume her typically scheduled HD on TTS. See below for this complex pt who required a high degree of E/M and MDM in review for assessing and placing her personalized HD orders earlier today. Next HD is tentatively planned for , if she were to remain hospitalized. Original Note: Date of Encounter: 10/26/18 Time of Encounter: 09:45 - Assessment and Plan (1) ESRD (end stage renal disease) on dialysis Current Visit: Yes Status: Chronic Current regimen is TTS at [facility]. HD in progress today, may go home from renal standpoint after HD today. Renal diet Renal vitamins Strict I/O Avoid nephrotoxins and renal dose all medications. (2) Abdominal pain Current Visit: No Status: Acute As per primary. She has been tried with Zofran and the pt seemed to think that this Rx made her even more Nauseated. Discussed with the floor RN. Qualifiers: Abdominal location: epigastric Qualified Code(s): R10.13 - Epigastric pain (3) Complicated UTI (urinary tract infection) Current Visit: No Status: Acute As per primary (4) Failure to thrive Current Visit: Yes Status: Chronic Ongoing. Goal serum Albumin is 4.0 in ESRD patients, so when her diet is advanced, I recommend increased protein with low Phosphorous. Qualifiers: Failure to thrive age range: in adult Qualified Code(s): R62.7 - Adult failure to thrive (5) Encephalopathy acute Current Visit: Yes Status: Acute Likely related to infection, not uremia. Per primary. Subjective Principal diagnosis: AMS Interval history: Patient seen and examined and dialysis, tolerating well. Denies chest pain or shortness of breath. Denies nausea, vomiting, diarrhea. Appears more alert tod ay. Objective - Vital Signs Vital signs: Vital Signs Temp Pulse Resp BP Pulse Ox 10/26/18 08:02 97.8 F 87 17 114/60 99 10/26/18 03:53 16 96 10/25/18 21:54 16 100 10/25/18 19:19 97.9 F 88 16 131/55 96 10/25/18 16:06 18 93 10/25/18 14:41 97.9 F 85 18 125/69 95 10/25/18 14:25 97.3 F L 18 121/68 10/25/18 13:40 114/60 10/25/18 13:25 136/67 10/25/18 13:10 118/63 10/25/18 12:55 119/64 10/25/18 12:40 112/69 10/25/18 12:25 124/63 10/25/18 12:10 121/63 10/25/18 11:55 130/69 10/25/18 11:40 117/63 10/25/18 11:25 112/61 10/25/18 11:10 113/63 10/25/18 10:55 129/65 10/25/18 10:40 97.5 F L 18 136/70 10/25/18 09:59 18 95 Intake and Output 10/25/18 10/26/18 10/26/18 23:59 07:59 15:59 Output Total 100 / 100 Balance -100 / -100 Output: Catheter 100 / 100 Other: Blood Glucose* 108 - General Appearance General appearance: Present: fatigue, frail EENT: Present: ATNC, hearing intact, vision intact Neck: Present: supple Respiratory: Present: clear Cardiology: Present: no edema, normal S1, normal S2 Dialysis Vascular Access: Venous Catheter (DRSG C/D/I) Gastrointestinal: Present: normoactive bowel sounds, no tenderness, no guarding Integumentary: Present: no rash, warm and dry Neurologic: Present: alert and oriented x3 Musculoskeletal: Present: no deformities, no erythema Psychiatric: Present: mood/affect appropriate, cooperative - Lab 10/26/18 01:40 10/26/18 01:40 Most recent lab results Calcium 8.4 mg/dL (8.6-10.3) L 10/26/18 01:40 Magnesium 1.8 mg/dL (1.6-2.6) 10/23/18 05:05 Consult Discharge Plan - Plan Referrals: Macario Diallo MD [Primary Care Provider] - 11/01/18 10:15 am () Prescriptions: levoFLOXacin [Levaquin] 500 mg PO Q48H #7 tablet
[2018-10-26] MEDS: Metoprolol XL (24 HR) Succ 25 MG TAB.ER.24H PO SCH (13:15)
[2018-10-26] MEDS: Isosorbide MONOnitrate (24 HR) 30 MG TAB.ER.24H PO SCH (13:15)
[2018-10-26] MEDS: Renal Vitamin 1 CAP CAPSULE PO SCH (13:20)
[2018-10-26] MEDS: Aspirin Enteric Coated 81 MG Tablet PO SCH (13:20)
[2018-10-26 13:23] VITALS: BP 121/72
--- NOTE | 2018-10-26 14:32 | Physician Discharge Referral ---
Home Health/Hosp Referral Info Transfer to: Home Health Provider in Charge Post Discharge: PCP - Diagnosis (1) Acute metabolic encephalopathy Priority: Primary Status: Acute (2) Pleural effusion Priority: Primary Status: Acute (3) UTI (urinary tract infection) due to urinary indwelling Madden catheter Priority: Primary Status: Acute (4) ESRD (end stage renal disease) on dialysis Priority: Secondary Status: Chronic (5) PNA (pneumonia) Priority: Primary Status: Acute (6) DVT prophylaxis Priority: Primary Status: Acute - Respiratory Orders Smoking Cessation: Smoking cessation has been advised. For more information, call the [place] Tobacco Quit Line at 5-021-OOSX-NOW. - Services Needed Following services are medically necessary services: Nursing, Home Health Aide, Physical Therapy, Occupational Therapy - Transfer Medications Prescriptions: levoFLOXacin [Levaquin] 500 mg PO Q48H #7 tablet Home Medications: Aspirin Enteric Coated [Aspirin EC] 81 mg PO DAILY 08/04/17 [History] Ferrous Sulfate 325 mg PO BIDWM 10/28/17 [History] Insulin ASPART [Novolog Flexpen] 0 unit SQ TID PRN 05/28/18 [History] Isosorbide MONOnitrate (24 HR) [Imdur] 30 mg PO DAILY 05/28/18 [History] Metoprolol Succinate [Toprol Xl] 25 mg PO DAILY 05/28/18 [History] Pravastatin Sodium 10 mg PO HS 07/23/18 [History] Folic Acid/Vit B Complex and C [Dialyvite Tablet] 1 tab PO DAILY 10/22/18 [History] Insulin Glargine,Hum.rec.anlog [Basaglar Kwikpen U-100] 40 unit SQ HS 10/22/18 [History] levoFLOXacin [Levaquin] 500 mg PO Q48H #7 tablet 10/26/18 [Rx] Allergies/Adverse Reactions: Allergy/AdvReac Type Severity Reaction Status Date / Time acetaminophen [From Tylenol] Allergy See Verified 07/22/18 11:05 Comments Influenza Virus Vaccines Allergy See Verified 07/22/18 11:05 Comments NSAIDS (Non-Steroidal Allergy See Verified 07/22/18 11:05 Anti-Inflamma Comments Certification: Further, I certify that my clinical findings support that this patient is homebound (i.e. absences from home require considerable and taxing effort and are for medical reasons or temple services or infrequently or short duration when for other reasons) because: Homebound Reason: Patient requires assistance of a person or device to safely leave home Attestation: My signature below is to certify that this patient is under my care and that I, or nurse practitioner, or a physician's animal care assistant working with me, has a [id number] encounter with this patient.
[2018-10-26] MEDS ORDERED: 0.9 % Sodium Chloride 2,000 ML ONE (15:45)
--- NOTE | 2018-10-26 17:58 | Electrocardiograph Report ---
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
[2018-10-27] MEDS ORDERED: levoFLOXacin 500 MG TABLET PO SCH (09:00)
== END 2018-10-26 15:16 | disposition home or self-care (01) | DRG 698 ==
LOC: 3BNU 13:17 → EMEROOARM 13:17 → 3BNU 20:12
PROVIDERS: ADMIT Internal Medicine; ATTEND Internal Medicine

== ENCOUNTER 2018-11-09 11:47 | Inpatient (IN) ==
--- NOTE | 2018-11-09 12:01 | Emergency Department Note ---
Disposition Clinical Impression: ESRD on dialysis, Frail elderly, UTI (urinary tract infection) due to urinary indwelling Madden catheter, Vomiting, Abnormal EKG Disposition: Admitted As Inpatient General Adult HPI - General Stated complaint: N/V Time Seen by Provider: 11/09/18 11:58 - History of Present Illness HPI Narrative: 73-year-old dialysis patient reports emergency department from dialysis where there was concern with nausea and vomiting. The patient reported she felt sick. There is no history of chest pain or acute shortness of breath abdominal pain or diarrhea. No bloody emesis. Per report dialysis was only partially completed. There is no history of acute back pain. No syncope. No coughing runny nose or pain or sore throat described. No history of headache or weakness or numbness of the arms or legs acutely no slurred speech facial drooping or rash. The patient reports she is taking antibiotics for left upper extremity infection, she had a dialysis port placed there. She states she is supposed to exercise her left arm but does not do that as requested. Ports chronic pain left upper extremity. There is no history of acute coldness blueness or numbne ss. She describes chronic lower extremity weakness secondary to chronic debility. The patient is known to be diabetic. - Related Data Home Medications Medication Instructions Recorded Confirmed Aspirin Enteric Coated [Aspirin EC] 81 mg PO DAILY 08/04/17 10/22/18 Ferrous Sulfate 325 mg PO BIDWM 10/28/17 10/22/18 Insulin ASPART [Novolog Flexpen] 0 unit SQ TID PRN 05/28/18 10/22/18 Isosorbide MONOnitrate (24 HR) 30 mg PO DAILY 05/28/18 10/22/18 [Imdur] Metoprolol Succinate [Toprol Xl] 25 mg PO DAILY 05/28/18 10/22/18 Pravastatin Sodium 10 mg PO HS 07/23/18 10/22/18 Folic Acid/Vit B Complex and C 1 tab PO DAILY 10/22/18 10/22/18 [Dialyvite Tablet] Insulin Glargine,Hum.rec.anlog 40 unit SQ HS 10/22/18 10/22/18 [Basaglar Kwikpen U-100] Previous Rx's Medication Instructions Recorded levoFLOXacin [Levaquin] 500 mg PO Q48H #7 tablet 10/26/18 cephALEXin [Keflex] 500 mg PO TID #30 capsule 11/02/18 Allergies Allergy/AdvReac Type Severity Reaction Status Date / Time acetaminophen [From Tylenol] Allergy See Verified 07/22/18 11:05 Comments Influenza Virus Vaccines Allergy See Verified 07/22/18 11:05 Comments NSAIDS (Non-Steroidal Allergy See Verified 07/22/18 11:05 Anti-Inflamma Comments All systems ED: reviewed and negative except as stated. Past Medical History - Past Medical History Medical history: Reports: arthritis, diabetes, GERD, hyperlipidemia, hypertension, renal disease, other Surgical history: Reports: appendectomy, cholecystectomy, hysterectomy Psychiatric history: Reports: anxiety, depression SENIOR WRITER history: Reports: no SENIOR WRITER history - Social History Smoking Status: Former smoker Smokeless Tobacco Status: No Alcohol use: Reports: none Drug use: Reports: none Physical Exam - General Limitations: no limitations General appearance: alert, in no apparent distress - Head Head exam: atraumatic, normocephalic, normal inspection - Eye Eye exam: Present: normal appearance, PERRL, EOMI - ENT ENT exam: normal exam, normal oropharynx, mucous membranes moist, TM's normal bilaterally, normal external ear exam - Neck Neck exam: Present: normal inspection, full ROM, trachea midline - Chest Chest inspection: Present: normal inspection, symmetric chest wall rise. Absent: tenderness - Respiratory Respiratory exam: Present: normal lung sounds bilaterally. Absent: respiratory distress, prolonged expiratory phase - Cardiovascular Cardiovascular exam: Present: regular rate, normal rhythm, normal heart sounds - Abdominal Exam Abdominal exam: Present: soft, Non-Tender. Absent: tenderness, distention, guarding, rebound, rigidity, normal bowel sounds - Extremities Exam Extremities exam: Present: full ROM, normal capillary refill, other (Lower extremity atrophy with chronic venous stasis changes noted. Left upper extremity shows a dialysis port with some edema and a well-demarcated incline around the port itself. The patient's left upper extremity shows generalized edema.). Absent: tenderness, pedal edema, joint swelling, calf tenderness - Expanded Lower Extremity Exam Lower leg exam: Absent: Homans' sign Neurovascular/Tendon exam: Present: normal capillary refill. Absent: motor deficit, sensory deficit, tendon deficit, extremity cold to touch, pallor - Back Exam Back exam: Present: normal inspection, full ROM. Absent: tenderness, CVA tenderness (R), CVA tenderness (L), vertebral tenderness - Neurological Exam Neurological exam: Present: alert, oriented X3, CN II-XII intact. Absent: motor sensory deficit - Psychiatric Psychiatric exam: Present: normal affect, normal mood - Skin Skin exam: Present: warm, dry, intact, normal color Course Vital Signs Temperature 97.7 F 11/09/18 12:05 Pulse Rate 77 11/09/18 12:05 Respiratory Rate 18 11/09/18 12:05 Blood Pressure 108/50 11/09/18 12:05 O2 Sat by Pulse Oximetry 100 11/09/18 12:05 Temperature 97.7 F 11/09/18 12:05 Pulse Rate 80 11/09/18 13:58 Respiratory Rate 13 11/09/18 13:58 Blood Pressure 116/52 11/09/18 13:58 O2 Sat by Pulse Oximetry 100 11/09/18 13:58 Oxygen Delivery Oxygen Delivery Nasal Cannula Medical Decision Making - MDM Narrative Medical decision making narrative: The patient is elderly, she was sent over from dialysis regarding vomiting, they report they did not complete her therapy. There is no history of bloody emesis. The patient has abdominal pain chest pain or acute shortness of breath. No diarrhea. There is no history of difficulty moving the arms or legs independently apart from her left upper extremity which is painful status post dialysis port placement. She states she is taking antibiotic medication for what was deemed to be an infection of the left arm. There is no history of acute weakness or numbness in the arms or legs or speech or facial drooping. The patient has had no falls or injuries. There is no history of headache or confusion. In the Emergency Department displayed no emesis and did not describe chest pain. The patient's EKG shows a sinus rhythm, T-wave inversions to 3 aVF and lateral leads. No acute ST elevations. During her stay in the emergency department, drivability technician noted significant ST elevations in V1 on rythym strip, changes are noted. We ordered 2 more EKGs status post and they appear to be similar to older EKGs as well as the initial EKG and emergency department. The patient's initial troponin is negative. Urinalysis shows changes suggestive infection urine culture and blood cultures were sent. The patient do not appear to be sepsis criteria. Based on the patient's age, vomiting, multiple vascular comorbidities, abnormal EKG and rhythm strip, I thought it be appropriate to admit the patient the hospital. I discussed the case with the hospice on-call who has accepted the patient to her care. I also spoke with Dr. Jan gómez ologist who will act as customer care consultant if needed. The patient appears to be stable. Cipro given IV. She is agreeable to admission. - Lab Data Lab results reviewed: Yes I reviewed the patient's lab results. Result diagrams: 11/09/18 12:30 11/09/18 12:30 Lab Results 11/09/18 11/09/18 11/09/18 Range/Units 12:30 12:30 12:30 WBC 8.0 (4.3-11.1) K/mcL RBC 4.42 (3.82-4.97) M/mcL Hgb 12.7 (11.5-15.4) g/dL Hct 41.3 (35.3-44.9) % MCV 93.4 (83.0-100.0) fL MCH 28.7 (28.0-33.3) pg MCHC 30.8 L (31.6-35.5) g/dL RDW 15.7 H (11.5-14.5) % Plt Count 149 (140-400) K/mcL MPV 8.5 L (9.4-12.4) fL Immature Gran % 0.5 (0-4) % Seg Neutrophils % 73.8 % Lymphocytes % 15.5 % Monocytes % 7.6 % Eosinophils % 2.4 % Basophils % 0.2 % Neutrophils # 5.9 (1.6-8.9) K/mcL Lymphocytes # 1.2 (0.6-4.6) K/mcL Monocytes # 0.6 (0.0-1.3) K/mcL Eosinophils # 0.2 (0.0-0.6) K/mcL Basophils # 0.0 (0.0-0.2) K/mcL PT 14.7 H (9.4-12.1) Seconds INR 1.3 APTT 81.0 H (26.0-36.0) Seconds Sodium 133 L (136-145) mEq/L Potassium 3.7 (3.5-5.1) mEq/L Chloride 98 (98-107) mEq/L Carbon Dioxide 25 (23-29) mEq/L BUN 33 H (8-23) mg/dL Creatinine 3.53 H (0.60-1.20) mg/dL Est GFR ( Amer) 15 L (> 60) Est GFR (Non-Af Amer) 13 L (> 60) BUN/Creatinine Ratio 9 (6-26) Glucose 204 H (70-105) mg/dL Calculated Osmolality 289 (280-300) Lactic Acid (0.5-2.2) mmol/L Calcium 7.6 L (8.6-10.3) mg/dL Magnesium 1.7 (1.6-2.6) mg/dL Total Bilirubin 0.4 (0.3-1.0) mg/dL AST 16 (13-39) Units/L ALT 8 (7-52) Units/L Alkaline Phosphatase 99 (34-104) Units/L Troponin I 0.03 (< 0.04) ng/mL C-Reactive Protein 57 H (Less than 10) mg/L Serum Total Protein 8.1 (6.4-8.9) g/dL Albumin 3.1 L (3.5-5.7) g/dL Globulin 5.0 H (2.4-3.5) g/dL Albumin/Globulin Ratio 0.6 L (1.1-2.2) Ur Specimen Adequacy Urine Color (Yellow) Urine Clarity (Clear) Urine pH (5.0-8.0) pH Units Ur Specific [place] (1.010-1.025) Urine Protein (Neg-Trace) mg/dL Urine Glucose (UA) (Normal) mg/dL Urine Ketones (Negative) mg/dL Urine Blood (Negative) Urine Nitrite (Negative) Urine Bilirubin (Negative) Urine Urobilinogen (Normal) mg/dL Ur Leukocyte Esterase (Negative) Urine Microscopic RBC (0-3) per hpf Urine Microscopic WBC (0-3) per hpf Ur Squamous Epith Cells (None-Few) per lpf Urine Bacteria (None-Few) per hpf Ur Culture Indicated? (NO) 11/09/18 11/09/18 Range/Units 12:30 13:10 WBC (4.3-11.1) K/mcL RBC (3.82-4.97) M/mcL Hgb (11.5-15.4) g/dL Hct (35.3-44.9) % MCV (83.0-100.0) fL MCH (28.0-33.3) pg MCHC (31.6-35.5) g/dL RDW (11.5-14.5) % Plt Count (140-400) K/mcL MPV (9.4-12.4) fL Immature Gran % (0-4) % Seg Neutrophils % % Lymphocytes % % Monocytes % % Eosinophils % % Basophils % % Neutrophils # (1.6-8.9) K/mcL Lymphocytes # (0.6-4.6) K/mcL Monocytes # (0.0-1.3) K/mcL Eosinophils # (0.0-0.6) K/mcL Basophils # (0.0-0.2) K/mcL PT (9.4-12.1) Seconds INR APTT (26.0-36.0) Seconds Sodium (136-145) mEq/L Potassium (3.5-5.1) mEq/L Chloride (98-107) mEq/L Carbon Dioxide (23-29) mEq/L BUN (8-23) mg/dL Creatinine (0.60-1.20) mg/dL Est GFR ( Amer) (> 60) Est GFR (Non-Af Amer) (> 60) BUN/Creatinine Ratio (6-26) Glucose (70-105) mg/dL Calculated Osmolality (280-300) Lactic Acid 1.0 (0.5-2.2) mmol/L Calcium (8.6-10.3) mg/dL Magnesium (1.6-2.6) mg/dL Total Bilirubin (0.3-1.0) mg/dL AST (13-39) Units/L ALT (7-52) Units/L Alkaline Phosphatase (34-104) Units/L Troponin I (< 0.04) ng/mL C-Reactive Protein (Less than 10) mg/L Serum Total Protein (6.4-8.9) g/dL Albumin (3.5-5.7) g/dL Globulin (2.4-3.5) g/dL Albumin/Globulin Ratio (1.1-2.2) Ur Specimen Adequacy See below A Urine Color Yellow (Yellow) Urine Clarity Turbid A (Clear) Urine pH 6.0 (5.0-8.0) pH Units Ur Specific [place] 1.015 (1.010-1.025) Urine Protein >=300 H (Neg-Trace) mg/dL Urine Glucose (UA) Normal (Normal) mg/dL Urine Ketones Trace H (Negative) mg/dL Urine Blood Large H (Negative) Urine Nitrite Negative (Negative) Urine Bilirubin Negative (Negative) Urine Urobilinogen Normal (Normal) mg/dL Ur Leukocyte Esterase Large H (Negative) Urine Microscopic RBC 5-15 H (0-3) per hpf Urine Microscopic WBC TNTC H (0-3) per hpf Ur Squamous Epith Cells Many H (None-Few) per lpf Urine Bacteria Many H (None-Few) per hpf Ur Culture Indicated? NO. A (NO) - Radiology Data Radiology results reviewed: Yes I reviewed the patient's radiology results.
[2018-11-09 12:47] LABS: Basophils % 0.2 %; Eosinophils # 0.2 K/mcL (0.0-0.6); Eosinophils % 2.4 %; Hematocrit 41.3 % (35.3-44.9); Hemoglobin 12.7 g/dL (11.5-15.4); Immature Granulocytes % 0.5 % (0-4); Lymphocytes # 1.2 K/mcL (0.6-4.6); Lymphocytes % 15.5 %; Mean Corpuscular HGB Conc 30.8 g/dL (31.6-35.5); Mean Corpuscular Hemoglobin 28.7 pg (28.0-33.3); Mean Corpuscular Volume 93.4 fL (83.0-100.0); Mean Platelet Volume 8.5 fL (9.4-12.4); Monocytes # 0.6 K/mcL (0.0-1.3); Monocytes % 7.6 %; Neutrophils # 5.9 K/mcL (1.6-8.9); Platelet Count 149 K/mcL (140-400); Red Blood Count 4.42 M/mcL (3.82-4.97); Red Cell Distribution Width 15.7 % (11.5-14.5); Segmented Neutrophils % 73.8 %
[2018-11-09 12:54] LABS: INR 1.3; Prothrombin Time 14.7 Seconds (9.4-12.1)
[2018-11-09 13:08] LABS: Albumin 3.1 g/dL (3.5-5.7); Albumin/Globulin Ratio 0.6 (1.1-2.2); Bilirubin,Total 0.4 mg/dL (0.3-1.0); Calcium 7.6 mg/dL (8.6-10.3); Magnesium 1.7 mg/dL (1.6-2.6); Potassium 3.7 mEq/L (3.5-5.1); Total Protein 8.1 g/dL (6.4-8.9); Troponin I 0.03 ng/mL (< 0.04)
[2018-11-09 13:42] LABS: Bilirubin,Urine Negative (Negative); Blood,Urine Large (Negative); Clarity,Urine Turbid (Clear); Color,Urine Yellow (Yellow); Glucose,Urine (UA) Normal (Normal); Ketones,Urine Trace mg/dL (Negative); Leukocyte Esterase,Urine Large (Negative); Nitrite,Urine Negative (Negative); Protein,Urine >=300 mg/dL (Neg-Trace); Specific Gravity,Urine 1.015 (1.010-1.025); Urobilinogen,Urine Normal (Normal)
[2018-11-09 13:54] LABS: Squamous Epithelial Cell,Urine Many per lpf (None-Few); WBC,Urine TNTC per hpf (0-3)
[2018-11-09 13:55] LABS: Bacteria,Urine Many per hpf (None-Few)
[2018-11-09] MEDS ORDERED: cefTRIAXone 1,000 MG in Water for inj. (sterile) 20 ML 10 ML IVP ONE (14:04)
--- NOTE | 2018-11-09 14:32 | Internal Med History&Physical ---
Date of Encounter: 11/09/18 Time of Encounter: 14:32 Internal Medicine - H&P: HPI Chief complaint: N/V/ chest pain History of present illness: 73-year-old dialysis patient on HD TTS who presented from the HD unit with nausea and vomiting. The patient denies chest pain, shortness of breath, abdominal pain or diarrhea. In the ER, she had no further episodes of nausea or vomiting. However During her stay in the emergency department, outboard technician noted significant ST elevations in V1 on rythym strip. EKGs was ordered and did not reflect changes that was noted on telemetry, initial troponin was negative. Cardiology was contacted by the ER staff and they recommenced admission for observation. Also UA was suggestive of UTI, Reviewing the patient records re vealed that she was admitted recently for UTI. Past Med Surg Social Fam HX - Past Medical History Medical history: arthritis, diabetes, GERD, hyperlipidemia, hypertension, renal disease, other Additional medical history: cdiff. parkinsons Psychiatric history: anxiety, depression - Past Surgical History Surgical History: appendectomy, cholecystectomy, hysterectomy Additional surgical history: Dialysis catheter - Social History Smoking Status: Former smoker Smokeless Tobacco Status: No Alcohol use: none Drug use: none - Family History Mother Living Status: Hx Family Cardiac Disorders: Yes Father Living Status: Hx Family Cardiac Disorders: Yes Sister Hx Family Cardiac Disorders: No Hx Family Respiratory Disorders: No Hx Family Cancer: No Hx Family GI Disorders: No Hx Family Endocrine Disorder: Yes Hx Family Neuromuscular Disorders: No Hx Family Neurologic Disorders: No Hx Family HEENT Disorders: No Hx Family Autoimmune Disorders: No Internal Medicine - H&P: Meds Aspirin Enteric Coated [Aspirin EC] 81 mg PO DAILY 08/04/17 [History] Ferrous Sulfate 325 mg PO BIDWM 10/28/17 [History] Insulin ASPART [Novolog Flexpen] 0 unit SQ TID PRN 05/28/18 [History] Isosorbide MONOnitrate (24 HR) [Imdur] 30 mg PO DAILY 05/28/18 [History] Metoprolol Succinate [Toprol Xl] 25 mg PO DAILY 05/28/18 [History] Pravastatin Sodium 10 mg PO HS 07/23/18 [History] Folic Acid/Vit B Complex and C [Dialyvite Tablet] 1 tab PO DAILY 10/22/18 [History] Insulin Glargine,Hum.rec.anlog [Janelle Burtonpen U-100] 40 unit SQ HS 10/22/18 [History] levoFLOXacin [Levaquin] 500 mg PO Q48H #7 tablet 10/26/18 [Rx] cephALEXin [Keflex] 500 mg PO TID #30 capsule 11/02/18 [Rx] Allergy/AdvReac Type Severity Reaction Status Date / Time acetaminophen [From Tylenol] Allergy See Verified 07/22/18 11:05 Comments Influenza Virus Vaccines Allergy See Verified 07/22/18 11:05 Comments NSAIDS (Non-Steroidal Allergy See Verified 07/22/18 11:05 Anti-Inflamma Comments All Systems PM: A 10-system review of systems was performed and is negative for pertinent findings except as documented above in the HPI. - Constitutional Constitutional: fatigue, no chills, no fever(s), no night sweats - Genitourinary Genitourinary: no change in urinary stream, no dysuria, no flank pain, no hematuria - Constitutional Vitals: Temp Pulse Resp BP Pulse Ox 97.7 F 80 13 116/52 100 11/09/18 12:05 11/09/18 13:58 11/09/18 13:58 11/09/18 13:58 11/09/18 13:58 General appearance: Present: A&O X 3, no acute distress Exam: below - Head Head exam: Present: atraumatic, normocephalic - Eye Eye exam: Present: PERRL, conjuntiva pink, sclera anicteric Pupils: Present: PERRL - Neck Neck exam general surgery: Present: supple, trachea midline. Absent: lymphadenopathy - Respiratory Respiratory exam: Present: rhonchi. Absent: accessory muscle use, rales, wheezes - Cardiovascular Cardiovascular exam: Present: RRR, +S1, +S2. Absent: diastolic murmur, gallop, rubs, systolic murmur - GI/Abdominal GI/Abdominal exam: Present: normal bowel sounds, soft, no peritoneal signs. Absent: distended, tenderness - Extremities Exam Extremities exam: Present: warm, radial pulses palpable and symmetrical. Absent: calf tenderness, cyanotic, pedal edema - Neurological Exam Neurological exam: Present: oriented X3, no focal deficits - Skin Skin exam: Present: dry, intact Internal Med - H&P Results - Labs CBC & Chem 7: 11/10/18 00:49 11/10/18 00:49 Labs: Short CBC 11/09/18 Range/Units 12:30 WBC 8.0 (4.3-11.1) K/mcL Hgb 12.7 (11.5-15.4) g/dL Hct 41.3 (35.3-44.9) % Plt Count 149 (140-400) K/mcL Neutrophils # 5.9 (1.6-8.9) K/mcL BMP 11/09/18 12:30 Sodium 133 L Potassium 3.7 Chloride 98 Carbon Dioxide 25 BUN 33 H Creatinine 3.53 H Glucose 204 H Calcium 7.6 L Cardiac Enzymes 11/09/18 Range/Units 12:30 Troponin I 0.03 (< 0.04) ng/mL Liver Function 11/09/18 Range/Units 12:30 Total Bilirubin 0.4 (0.3-1.0) mg/dL AST 16 (13-39) Units/L ALT 8 (7-52) Units/L Alkaline Phosphatase 99 (34-104) Units/L Albumin 3.1 L (3.5-5.7) g/dL Urine 11/09/18 Range/Units 13:10 Urine Color Yellow (Yellow) Urine Clarity Turbid A (Clear) Urine pH 6.0 (5.0-8.0) pH Units Ur Specific [place] 1.015 (1.010-1.025) Urine Protein >=300 H (Neg-Trace) mg/dL Urine Glucose (UA) Normal (Normal) mg/dL - Impressions ITS Impressions Chest X-Ray 11/09/18 11:59 IMPRESSION: Borderline cardiomegaly and left basilar atelectasis D/ / Darien Nichols MD / Darien Nichols MD Interpreting Provider: Darien Nichols MD - Assessment and Plan (1) Nausea and vomiting Current Visit: No Status: Resolved Assessment and plan: N/V most likely 2/2 UTI, the patient was admitted recently for UTI DD *Gastroenteritis *Gastritis *PUD *Pancreatitis *Cholecystitis *Diverticulitis PLAN: - IVF - Urine C+S - CBCD, BMP in AM - Zofran (ondansetron) PRN Qualifiers: Vomiting type: unspecified Vomiting Intractability: non-intractable Qualified Code(s): R11.2 - Nausea with vomiting, unspecified (2) Abnormal EKG Current Visit: No Status: Resolved Assessment and plan: However During her stay in the emergency department, outboard technician noted significant ST elevations in V1 on rythym strip. EKGs was ordered and did not reflect changes that was noted on telemetry, initial troponin was negative. I spoke with Cardiology and Stress test was recommended. We will trend cardiac enzymes and repeat ECG in AM (3) UTI (urinary tract infection) due to urinary indwelling Madden catheter Current Visit: Yes Status: Acute Assessment and plan: The patient has urine CX on her prior admission that was positive for E.Coli, she was treated with ceftriaxone in the ER, we will cont. ceftriaxone and repeat Urine Cx. Qualifiers: Qualified Code(s): T83.511A - Infection and inflammatory reaction due to indwelling urethral catheter, initial encounter; N39.0 - Urinary tract infection, site not specified (4) Anxiety Current Visit: No Status: Chronic Assessment and plan: We will cont. home meds (5) ESRD (end stage renal disease) on dialysis Current Visit: Yes Status: Chronic Assessment and plan: Nephrology was consulted to provide PUBLICATIONS DESIGNER while inpatient (6) IDDM (insulin dependent diabetes mellitus) Current Visit: No Status: Chronic Assessment and plan: We will start insulin sliding scale with coverage (7) HLD (hyperlipidemia) Current Visit: No Status: Chronic Assessment and plan: We will cont home statin Qualifiers: Hyperlipidemia type: unspecified Qualified Code(s): E78.5 - Hyperlipidemia, unspecified (8) HTN (hypertension) Current Visit: No Status: Chronic Assessment and plan: We will cont home meds Qualifiers: Hypertension type: essential hypertension Qualified Code(s): I10 - Essential (primary) hypertension (9) DVT prophylaxis Current Visit: No Status: Acute - Time Spent With Patient Total time spent is greater than 50% in coordination of care (as documented) at patient's floor/unit and/or counseling patient:
[2018-11-09] MEDS ORDERED: Naloxone 0.4 MG/ML INJ IVP PRN (15:25)
[2018-11-09] MEDS ORDERED: traMADol 50 MG TABLET PO PRN (15:51)
[2018-11-09] MEDS ORDERED: Ondansetron 4 MG/2 ML VIAL IVP PRN (15:51)
--- NOTE | 2018-11-09 16:30 | Electrocardiograph Report ---
[facility] [employer] Test Date: 2018-11-09 Pat Name: Lisa Lacy Department: EXAM2 Room: 2A31 Gender: F Mortgage Professional: : 1945 Requested By: Nick Quijano Order Number: [id number] Reading MD: Tapan Lopez Measurements Intervals [place] Rate: 76 P: 152 MA: 196 QRS: 157 QRSD: 114 T: -39 QT: 417 QTc: 469 Interpretive Statements Normal sinus rhythm Consider left atrial enlargement Consider left ventricular hypertrophy Abnormal T, consider ischemia, diffuse leads Borderline ST elevation, lateral leads Electronically Signed On 11-09-2018 16:29:03 EDT by Tapan Lopez
--- NOTE | 2018-11-09 16:31 | Electrocardiograph Report ---
[facility] [employer] Test Date: 2018-11-09 Pat Name: Lisa Lacy Department: EXAM2 Room: 2A31 Gender: F Power Manager: : 1945 Requested By: Nick Quijano Order Number: [id number] Reading MD: Tapan Lopez Measurements Intervals [place] Rate: 76 P: 149 MT: 174 QRS: 152 QRSD: 121 T: -48 QT: 417 QTc: 469 Interpretive Statements Right and left arm electrode reversal, interpretation assumes no reversal Sinus or ectopic atrial rhythm Ventricular premature complex Probable left atrial enlargement Consider left ventricular hypertrophy Anterior Q waves, possibly due to LVH Abnormal T, consider ischemia, diffuse leads Borderline ST elevation, lateral leads Electronically Signed On 11-09-2018 16:30:19 EDT by Tapan Lopez
[2018-11-09] MEDS ORDERED: *HR* Dextrose 50 % in Water (Syg) 50 ML SYRINGE IVP PRN (20:37)
[2018-11-09] MEDS ORDERED: Dextrose Gel 15 GM/37.5 ML TUBE PO PRN ×2 (20:37)
[2018-11-09] MEDS ORDERED: D5% in Water 1,000 ML IVC PRN (20:37)
[2018-11-09] MEDS: Insulin LISPRO 300 UNITS/3 ML VIAL SQ SCH (21:37)
[2018-11-09 22:01] LABS: Estimated Average Glucose 217 mg/dl; Hemoglobin A1C 9.2 %
[2018-11-10 01:42] LABS: Basophils % 0.3 %; Eosinophils # 0.2 K/mcL (0.0-0.6); Eosinophils % 1.9 %; Hematocrit 38.7 % (35.3-44.9); Hemoglobin 12.5 g/dL (11.5-15.4); Immature Granulocytes % 0.4 % (0-4); Lymphocytes # 1.5 K/mcL (0.6-4.6); Lymphocytes % 19.9 %; Mean Corpuscular HGB Conc 32.3 g/dL (31.6-35.5); Mean Corpuscular Hemoglobin 29.1 pg (28.0-33.3); Mean Corpuscular Volume 90.2 fL (83.0-100.0); Monocytes # 0.6 K/mcL (0.0-1.3); Monocytes % 8.3 %; Neutrophils # 5.4 K/mcL (1.6-8.9); Platelet Count 146 K/mcL (140-400); Red Blood Count 4.29 M/mcL (3.82-4.97); Red Cell Distribution Width 15.7 % (11.5-14.5); Segmented Neutrophils % 69.2 %
[2018-11-10 01:53] LABS: INR 1.3; Prothrombin Time 14.3 Seconds (9.4-12.1)
[2018-11-10 02:06] LABS: Troponin I 0.03 ng/mL (< 0.04)
[2018-11-10 02:45] LABS: Albumin/Globulin Ratio 0.6 (1.1-2.2); Bilirubin,Total 0.4 mg/dL (0.3-1.0); Calcium 8.1 mg/dL (8.6-10.3); Globulin 5.1 g/dL (2.4-3.5); Magnesium 1.8 mg/dL (1.6-2.6); Phosphorous 4.9 mg/dL (2.7-4.5); Potassium 4.1 mEq/L (3.5-5.1); Total Protein 8.1 g/dL (6.4-8.9)
[2018-11-10] MEDS ORDERED: Regadenoson 0.4 MG/5 ML SYRINGE IVP ONE (06:07)
[2018-11-10] MEDS: cefTRIAXone 1,000 MG in Water for inj. (sterile) 20 ML 10 ML IVP SCH (08:24)
[2018-11-10] MEDS: Insulin LISPRO 300 UNITS/3 ML VIAL SQ SCH ×4 (08:24→20:46)
--- NOTE | 2018-11-10 15:30 | Nephrology Consult Note ---
Date of Encounter: 11/10/18 Time of Encounter: 15:30 Assessment and Plan (1) ESRD (end stage renal disease) on dialysis Current Visit: Yes Status: Chronic HD TRS Renal vitamins. Renal dose medications. Renal diet. Additional dialysis and ultrafiltration as needed. 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 insulin use: with longterm use Diabetes mellitus complication status: with kidney complications Diabetes mellitus complication detail: with chronic kidney disease Chronic kidney disease stage: on chronic dialysis Qualified Code(s): E11.22 - Type 2 diabetes mellitus with diabetic chronic kidney disease; N18.6 - End stage renal disease; Z79.4 - retirement (current) use of insulin; Z99.2 - Dependence on renal dialysis (3) Abnormal EKG Current Visit: Yes Status: Acute Primary team (4) Nausea and vomiting Current Visit: Yes Status: Acute Resolved Qualifiers: Vomiting type: unspecified Vomiting Intractability: intractable Qualified Code(s): R11.2 - Nausea with vomiting, unspecified History of Present Illness - Reason for Consult Consult date: 11/10/18 end stage renal disease - Chief Complaint esrd - History of Present Illness Mrs. Layc is a 73-year-old woman with a history of end-stage renal disease who presented with nausea and not feeling well. The patient is known to [facility] and we will consult her to continue her dialysis. Of note the patient recently had a left forearm graft placed. Per the patient the graft is not ready for access Past Med Surg Social Fam HX - Past Medical History Medical history: arthritis, diabetes, GERD, hyperlipidemia, hypertension, renal disease, other Additional medical history: cdiff. parkinsons Psychiatric history: anxiety, depression - Past Surgical History Surgical History: appendectomy, cholecystectomy, hysterectomy Additional surgical history: Dialysis catheter - Social History Smoking Status: Former smoker Smokeless Tobacco Status: No Alcohol use: none Drug use: none - Family History Mother Living Status: Hx Family Cardiac Disorders: Yes Father Living Status: Hx Family Cardiac Disorders: Yes Sister Hx Family Cardiac Disorders: No Hx Family Respiratory Disorders: No Hx Family Cancer: No Hx Family GI Disorders: No Hx Family Endocrine Disorder: Yes Hx Family Neuromuscular Disorders: No Hx Family Neurologic Disorders: No Hx Family HEENT Disorders: No Hx Family Autoimmune Disorders: No Medications and Allergies Aspirin Enteric Coated [Aspirin EC] 81 mg PO DAILY 08/04/17 [History] Ferrous Sulfate 325 mg PO BIDWM 10/28/17 [History] Insulin ASPART [Novolog Flexpen] 0 unit SQ TID PRN 05/28/18 [History] Isosorbide MONOnitrate (24 HR) [Imdur] 30 mg PO DAILY 05/28/18 [History] Metoprolol Succinate [Toprol Xl] 25 mg PO DAILY 05/28/18 [History] Pravastatin Sodium 10 mg PO HS 07/23/18 [History] Folic Acid/Vit B Complex and C [Dialyvite Tablet] 1 tab PO DAILY 10/22/18 [History] Insulin Glargine,Hum.rec.anlog [Basaglar Kwikpen U-100] 40 unit SQ HS 10/22/18 [History] cephALEXin [Keflex] 500 mg PO TID #30 capsule 11/02/18 [Rx] Allergy/AdvReac Type Severity Reaction Status Date / Time acetaminophen [From Tylenol] Allergy See Verified 07/22/18 11:05 Comments Influenza Virus Vaccines Allergy See Verified 07/22/18 11:05 Comments NSAIDS (Non-Steroidal Allergy See Verified 07/22/18 11:05 Anti-Inflamma Comments Review of Systems All Systems: reviewed and no additional remarkable complaints except as stated (In history of present illness) Exam - Vital Signs Vital signs: Initial Vital Signs Temp Pulse Resp BP Pulse Ox 97.7 F 77 18 108/50 100 11/09/18 12:05 11/09/18 12:05 11/09/18 12:05 11/09/18 12:05 11/09/18 12:05 Vital Signs - Last 8 Hours Temp Pulse Resp BP Pulse Ox 11/10/18 10:26 97.5 F L 74 15 126/78 100 11/10/18 08:29 97.6 F 75 16 133/60 100 Intake and Output 11/09/18 11/10/18 11/10/18 23:59 07:59 15:59 Intake Total 0 / 0 Output Total 0 / 0 75 / 75 Balance 0 / 0 -75 / -75 Intake: Oral 0 / 0 Output: Urine 75 / 75 Catheter 0 / 0 Other: Meal NPO Percent of Meal Consumed 0% Weight 56 kg Blood Glucose* 131 162 Patient Weight 11/10/18 23:59 Weight 56 kg - General Appearance General appearance: well-developed, well-nourished EENT: ATNC Neck: supple Respiratory: clear Cardiology: no edema, regular rate - Dialysis Access Dialysis Vascular Access: Arteriovenous Graft thrill: Yes bruit: Yes Gastrointestinal: no tenderness Neurologic: alert and oriented x3 Musculoskeletal: no cyanosis Psychiatric: mood/affect appropriate Results - Lab Results 11/11/18 07:38 11/11/18 07:38 Most recent lab results Calcium 8.1 mg/dL (8.6-10.3) L 11/10/18 00:49 Phosphorus 4.9 mg/dL (2.7-4.5) H 11/10/18 00:49 Magnesium 1.8 mg/dL (1.6-2.6) 11/10/18 00:49 Consult Discharge Plan - Plan Referrals: Macario Diallo MD [Primary Care Provider] -
[2018-11-10] MEDS: Metoclopramide 10 MG/2 ML VIAL IVP SCH ×2 (18:22→23:04)
--- NOTE | 2018-11-10 22:39 | Internal Med Progress Note ---
Hospitalist Progress Note - Encounter Date of Encounter: 11/10/18 Time of Encounter: 19:00 - Subjective Interval History: SUBJECTIVE: Patient is a 73-year-old woman. We admitted her from hemodialysis, after she had developed nausea and vomiting. She had some EKG changes, suspected of possible CAD exacerbation. She has underlying type 2 diabetes mellituswith possible gastroparesis. She continues to have off and on nausea/vomiting. Without any chest pain or difficulty breathing. She is on 2 L/min nasal cannula oxygen. She gets hemodialysis on Tuesdays, and Saturdays. OBJECTIVE: Skin: Free of rash and discoloration. ENMT: Oral/pharyngeal mucosa is normal in appearance. Eyes: Sclera is white. There is no discharge from eyes. Respiratory: Normal breath sounds; no crackles or wheezes. CV: Heart is regular; no gallop or murmur. GI: Abdomen is soft and not tender. There is no palpable mass or visceromegaly. Neuro: There is no focal deficits. ADDITIONAL DATA: CBC is normal. Sodium is 132 with creatinine of 4.07 and bicarb of 22. The rest of BMP is normal. Fingersticks for glucose from today are 107, 162 and 103. ASSESSMENT AND PLAN: Nausea and vomiting. They may represent diabetic gastroparesis. I will try IV Reglan for the next 2 days. Type 2 diabetes mellitus/hypertension with end-stage renal disease. To continue when necessary Humalog. No need for antihypertensives at this time. Abnormal EKG. With normal troponin (checked on several occasions). No need to do stress test. Possible urinary tract infection. She is on IV Rocephin. Blood cultures are not growing any organisms. - Exam Vitals: Temp Pulse Resp BP Pulse Ox 97.6 F 84 18 129/71 100 11/10/18 19:07 11/10/18 19:07 11/10/18 19:07 11/10/18 19:07 11/10/18 19:07 Exam: xx - Assessment and Plan (1) Nausea and vomiting Current Visit: Yes Status: Acute (2) T2DM (type 2 diabetes mellitus) Current Visit: Yes Status: Acute (3) Hypertensive renal disease with renal failure Current Visit: Yes Status: Acute (4) Abnormal EKG Current Visit: No Status: Resolved (5) UTI (urinary tract infection) due to urinary indwelling Madden catheter Current Visit: Yes Status: Acute (6) ESRD (end stage renal disease) on dialysis Current Visit: Yes Status: Chronic (7) Anxiety Current Visit: Yes Status: Chronic - Time Spent with Patient Total time spent is greater than 50% in coordination of care (as documented) at patient's floor/unit and/or counseling patient: 25 - 35 minutes Plan of Care Discussed with: family Internal Medicine: Result - Labs CBC & Chem 7: 11/10/18 00:49 11/10/18 00:49 Labs: Short CBC 11/10/18 Range/Units 00:49 WBC 7.7 (4.3-11.1) K/mcL Hgb 12.5 (11.5-15.4) g/dL Hct 38.7 (35.3-44.9) % Plt Count 146 (140-400) K/mcL Neutrophils # 5.4 (1.6-8.9) K/mcL BMP 11/10/18 00:49 Sodium 132 L Potassium 4.1 Chloride 97 L Carbon Dioxide 22 L BUN 41 H Creatinine 4.07 H Glucose 132 H Calcium 8.1 L Cardiac Enzymes 11/10/18 11/10/18 Range/Units 00:49 00:49 Troponin I 0.04 H* 0.03 (< 0.04) ng/mL Liver Function 11/10/18 Range/Units 00:49 Total Bilirubin 0.4 (0.3-1.0) mg/dL AST 17 (13-39) Units/L ALT 7 (7-52) Units/L Alkaline Phosphatase 95 (34-104) Units/L Albumin 3.0 L (3.5-5.7) g/dL - ABG Interpretation ABG results: PT/INR, D-dimer PT 14.3 Seconds (9.4-12.1) H 11/10/18 00:49 Consult Discharge Plan - Plan Referrals: Macario Diallo MD [Primary Care Provider] - (1) Nausea and vomiting Qualifiers: Vomiting type: unspecified Vomiting Intractability: intractable Qualified Code(s): R11.2 - Nausea with vomiting, unspecified (2) T2DM (type 2 diabetes mellitus) Qualifiers: Diabetes mellitus shelter insulin use: with senior oracle database developer use Diabetes mellitus complication status: with kidney complications Diabetes mellitus complication detail: with chronic kidney disease Chronic kidney disease stage: on chronic dialysis Qualified Code(s): E11.22 - Type 2 diabetes mellitus with diabetic chronic kidney disease; N18.6 - End stage renal disease; Z79.4 - [facility] (current) use of insulin; Z99.2 - Dependence on renal dialysis (5) UTI (urinary tract infection) due to urinary indwelling Madden catheter Qualifiers: Qualified Code(s): T83.511A - Infection and inflammatory reaction due to indwelling urethral catheter, initial encounter; N39.0 - Urinary tract infection, site not specified
[2018-11-11] MEDS: Metoclopramide 10 MG/2 ML VIAL IVP SCH ×4 (05:56→23:37)
[2018-11-11] MEDS ORDERED: *HR* Heparin 10,000 UNIT/10 ML VIAL IV PRN (08:06)
[2018-11-11] MEDS ORDERED: 0.9 % Sodium Chloride 250 ML IVC PRN (08:06)
[2018-11-11] MEDS ORDERED: 0.9 % Sodium Chloride 1,000 ML PRIME SCH (08:15)
[2018-11-11] MEDS: Insulin LISPRO 300 UNITS/3 ML VIAL SQ SCH ×4 (08:20→20:40)
[2018-11-11] MEDS: cefTRIAXone 1,000 MG in Water for inj. (sterile) 20 ML 10 ML IVP SCH (08:21)
[2018-11-11 08:29] LABS: Hematocrit 42.1 % (35.3-44.9); Hemoglobin 13.2 g/dL (11.5-15.4); Mean Corpuscular HGB Conc 31.4 g/dL (31.6-35.5); Mean Corpuscular Hemoglobin 28.7 pg (28.0-33.3); Mean Corpuscular Volume 91.5 fL (83.0-100.0); Mean Platelet Volume 8.8 fL (9.4-12.4); Platelet Count 180 K/mcL (140-400); Red Cell Distribution Width 15.6 % (11.5-14.5)
[2018-11-11 08:35] LABS: Calcium 8.7 mg/dL (8.6-10.3)
--- NOTE | 2018-11-11 20:15 | Nephrology Progress Note ---
Date of Encounter: 11/11/18 Time of Encounter: 20:14 - Assessment and Plan (1) ESRD (end stage renal disease) on dialysis Current Visit: Yes Status: Chronic HD TRS Renal vitamins. Renal dose medications. Renal diet. Additional dialysis and ultrafiltration as needed. 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 Objective - Vital Signs Vital signs: Vital Signs Temp Pulse Resp BP Pulse Ox 11/11/18 15:20 96.6 F L 82 19 111/70 100 11/11/18 11:45 96.4 F L 17 136/70 11/11/18 11:35 112/59 11/11/18 11:20 111/58 11/11/18 11:05 103/57 11/11/18 10:50 106/60 11/11/18 10:35 93/48 11/11/18 10:20 110/60 11/11/18 10:05 100/62 11/11/18 09:50 108/61 11/11/18 09:35 106/60 11/11/18 09:20 112/61 11/11/18 09:05 110/58 11/11/18 08:50 120/63 11/11/18 08:35 97.4 F L 17 124/65 11/11/18 07:34 97.6 F 77 18 122/67 100 11/11/18 03:12 97.5 F L 75 18 116/71 98 11/10/18 22:44 97.5 F L 82 15 143/81 100 Intake and Output 11/11/18 11/11/18 11/11/18 07:59 15:59 23:59 Intake Total 850 / 850 Output Total 100 / 100 1600 / 1600 Balance -100 / -100 -750 / -750 Intake: IV Fluids Rocephin 1,000 MG In Water for inj. (sterile) 10 ML @ 600 mls/ hr IVP DAILY [facility] Rx#:[id number] Oral 240 / 240 Intake, Rinseback and Flushes 600 / 600 Output: Urine 0 / 0 Total Dialysis (HD) Output 1600 / 1600 Catheter 100 / 100 Other: Meal Breakfast Percent of Meal Consumed 75% Blood Glucose* 107 161 Hemodialysis Net Fluid Removed 1000 (mL) - General Appearance General appearance: Present: well-developed, well-nourished EENT: Present: ATNC Cardiology: Present: regular rate - Lab 11/11/18 07:38 11/11/18 07:38 Most recent lab results Calcium 8.7 mg/dL (8.6-10.3) 11/11/18 07:38 Phosphorus 4.9 mg/dL (2.7-4.5) H 11/10/18 00:49 Magnesium 1.8 mg/dL (1.6-2.6) 11/10/18 00:49 Consult Discharge Plan - Plan Referrals: Macario Diallo MD [Primary Care Provider] -
--- NOTE | 2018-11-11 22:08 | Internal Med Progress Note ---
Hospitalist Progress Note - Encounter Date of Encounter: 11/11/18 Time of Encounter: 19:00 - Subjective Interval History: SUBJECTIVE: The patient feels better. Nausea and vomiting subsided. She ate a big breakfast and a small lunch today. She received her hemodialysis in a.m. Denies chest pain and difficulty breathing. Denies coughing and wheezing. Denies abdominal pain, nausea and vomiting. Patient is a 73-year-old woman. We admitted her from hemodialysis, after she had developed nausea and vomiting. She had some EKG changes, suspected of pos sible CAD exacerbation. She has underlying type 2 diabetes mellitus with possible gastroparesis. OBJECTIVE: Skin: Free of rash and discoloration. ENMT: Oral/pharyngeal mucosa is normal in appearance. Eyes: Sclera is white. There is no discharge from eyes. Respiratory: Normal breath sounds; no crackles or wheezes. CV: Heart is regular; no gallop or murmur. GI: Abdomen is soft and not tender. There is no palpable mass or visceromegaly. Neuro: There is no focal deficits. ADDITIONAL DATA: CBC is normal. Sodium is 133 with potassium 4.0 and bicarb of 22. Fasting glucose is 125. The rest of BMP is normal. Fingerstick for glucose from today is 107, 130 and 161. ASSESSMENT AND PLAN: Nausea and vomiting. They may represent diabetic gastroparesis. Better. To continue IV Reglan for the next 24 hours. Type 2 diabetes mellitus/hypertension with end-stage renal disease. To continue when necessary Humalog. No need for antihypertensives currently. She gets hemodialysis. Abnormal EKG. With normal troponin (checked on several occasions). No need to do stress test. Possible urinary tract infection. She is on IV Rocephin. Blood cultures are not growing any organisms. Disposition: I am hoping to discharge her home tomorrow. - Exam Vitals: Temp Pulse Resp BP Pulse Ox 97.7 F 80 16 110/61 100 11/11/18 20:30 11/11/18 20:30 11/11/18 20:30 11/11/18 20:30 11/11/18 20:30 Exam: xx - Assessment and Plan (1) Nausea and vomiting Current Visit: Yes Status: Acute (2) T2DM (type 2 diabetes mellitus) Current Visit: Yes Status: Acute (3) Hypertensive renal disease with renal failure Current Visit: Yes Status: Acute (4) Abnormal EKG Current Visit: No Status: Resolved (5) UTI (urinary tract infection) due to urinary indwelling Madden catheter Current Visit: Yes Status: Acute (6) ESRD (end stage renal disease) on dialysis Current Visit: Yes Status: Chronic (7) Anxiety Current Visit: Yes Status: Chronic - Time Spent with Patient Total time spent is greater than 50% in coordination of care (as documented) at patient's floor/unit and/or counseling patient: 25 - 35 minutes Plan of Care Discussed with: patient Internal Medicine: Result - Labs CBC & Chem 7: 11/11/18 07:38 11/11/18 07:38 Labs: Short CBC 11/11/18 Range/Units 07:38 WBC 6.7 (4.3-11.1) K/mcL Hgb 13.2 (11.5-15.4) g/dL Hct 42.1 (35.3-44.9) % Plt Count 180 (140-400) K/mcL BMP 11/11/18 07:38 Sodium 133 L Potassium 4.0 Chloride 98 Carbon Dioxide 22 L BUN 53 H Creatinine 5.04 H Glucose 125 H Calcium 8.7 - ABG Interpretation ABG results: PT/INR, D-dimer PT 14.3 Seconds (9.4-12.1) H 11/10/18 00:49 Consult Discharge Plan - Plan Referrals: Macario Diallo MD [Primary Care Provider] - (1) Nausea and vomiting Qualifiers: Vomiting type: unspecified Vomiting Intractability: intractable Qualified Code(s): R11.2 - Nausea with vomiting, unspecified (2) T2DM (type 2 diabetes mellitus) Qualifiers: Diabetes mellitus termite helper insulin use: with [facility] use Diabetes mellitus complication status: with kidney complications Diabetes mellitus complication detail: with chronic kidney disease Chronic kidney disease stage: on chronic dialysis Qualified Code(s): E11.22 - Type 2 diabetes mellitus with diabetic chronic kidney disease; N18.6 - End stage renal disease; Z79.4 - rat exterminator (current) use of insulin; Z99.2 - Dependence on renal dialysis (5) UTI (urinary tract infection) due to urinary indwelling Madden catheter Qualifiers: Qualified Code(s): T83.511A - Infection and inflammatory reaction due to indwelling urethral catheter, initial encounter; N39.0 - Urinary tract infection, site not specified
[2018-11-12 06:52] LABS: Hematocrit 40.4 % (35.3-44.9); Hemoglobin 12.9 g/dL (11.5-15.4); Mean Corpuscular HGB Conc 31.9 g/dL (31.6-35.5); Mean Corpuscular Hemoglobin 28.9 pg (28.0-33.3); Mean Corpuscular Volume 90.4 fL (83.0-100.0); Mean Platelet Volume 9.1 fL (9.4-12.4); Platelet Count 145 K/mcL (140-400); Red Blood Count 4.47 M/mcL (3.82-4.97); Red Cell Distribution Width 15.7 % (11.5-14.5)
[2018-11-12 07:08] LABS: Calcium 8.6 mg/dL (8.6-10.3); Potassium 3.8 mEq/L (3.5-5.1)
--- NOTE | 2018-11-12 07:21 | Event Note ---
Date of Encounter: 11/12/18 Time of Encounter: 07:19 - Nephrology Event Note Nephrology Update She is on HD TTS and had HD yesterday. Next HD is planned for Thursday, if she remains in the hospital. Please feel free to call or page me with any renal questions. Thank you.
[2018-11-12] MEDS: Metoclopramide 10 MG/2 ML VIAL IVP SCH ×2 (07:59→11:46)
[2018-11-12] MEDS: Insulin LISPRO 300 UNITS/3 ML VIAL SQ SCH ×4 (07:59→21:40)
[2018-11-12] MEDS: cefTRIAXone 1,000 MG in Water for inj. (sterile) 20 ML 10 ML IVP SCH (08:00)
--- NOTE | 2018-11-13 | Internal Med Progress Note ---
Hospitalist Progress Note - Encounter Date of Encounter: 11/12/18 Time of Encounter: 19:00 - Subjective Interval History: SUBJECTIVE: No nausea/vomiting. She seems to have good appetite. She got hemodialysis yesterday; the next one is scheduled for tomorrow. Patient is a 73-year-old woman. We admitted her from hemodialysis, after she had developed nausea and vomiting. She had some EKG changes, suspected of possible CAD exacerbation. She has underlying type 2 diabetes mellitus with possible gastroparesis. OBJECTIVE: Skin: Free of rash and discoloration. ENMT: Oral/pharyngeal mucosa is normal in appearance. Eyes: Sclera is white. There is no discharge from eyes. Respiratory: Normal breath sounds; no crackles or wheezes. CV: Heart is regular; no gallop or murmur. GI: Abdomen is soft and not tender. There is no palpable mass or visceromegaly. Neuro: There is no focal deficits. ADDITIONAL DATA: Fingerstick for glucose from today is 147, 212 and 242. ASSESSMENT AND PLAN: Nausea and vomiting. Likely secondary to diabetic gastroparesis. She had high glucose levels at home. Likely due to noncompliance with medical treatments (insulin). She could also have had some stomach flu. Type 2 diabetes mellitus/hypertension with end-stage renal disease. To continue when necessary Humalog. No need for antihypertensives currently. She gets hemodialysis. Abnormal EKG. With normal troponin (checked on several occasions). No need to do stress test. Possible urinary tract infection. She is on IV Rocephin. Blood cultures are not growing any organisms. Disposition: After talking to the patient and her daughter we decided for discharge tomorrow after hemodialysis. - Exam Vitals: Temp Pulse Resp BP Pulse Ox 97.4 F L 86 17 149/69 100 11/12/18 19:40 11/12/18 19:40 11/12/18 19:40 11/12/18 19:40 11/12/18 21:53 Exam: xx - Assessment and Plan (1) Nausea and vomiting Current Visit: Yes Status: Acute (2) T2DM (type 2 diabetes mellitus) Current Visit: Yes Status: Acute (3) Hypertensive renal disease with renal failure Current Visit: Yes Status: Acute (4) Abnormal EKG Current Visit: No Status: Resolved (5) UTI (urinary tract infection) due to urinary indwelling Madden catheter Current Visit: Yes Status: Acute (6) ESRD (end stage renal disease) on dialysis Current Visit: Yes Status: Chronic (7) Anxiety Current Visit: Yes Status: Chronic - Time Spent with Patient Total time spent is greater than 50% in coordination of care (as documented) at patient's floor/unit and/or counseling patient: 25 - 35 minutes Plan of Care Discussed with: patient Internal Medicine: Result - Labs CBC & Chem 7: 11/12/18 05:37 11/12/18 05:37 Labs: Short CBC 11/12/18 Range/Units 05:37 WBC 6.7 (4.3-11.1) K/mcL Hgb 12.9 (11.5-15.4) g/dL Hct 40.4 (35.3-44.9) % Plt Count 145 (140-400) K/mcL BMP 11/12/18 05:37 Sodium 135 L Potassium 3.8 Chloride 96 L Carbon Dioxide 24 BUN 32 H Creatinine 3.96 H Glucose 125 H Calcium 8.6 - ABG Interpretation ABG results: PT/INR, D-dimer PT 14.3 Seconds (9.4-12.1) H 11/10/18 00:49 Consult Discharge Plan - Plan Referrals: Macario Diallo MD [Primary Care Provider] - (1) Nausea and vomiting Qualifiers: Vomiting type: unspecified Vomiting Intractability: intractable Qualified Code(s): R11.2 - Nausea with vomiting, unspecified (2) T2DM (type 2 diabetes mellitus) Qualifiers: Diabetes mellitus terminal make up operator insulin use: with senior care use Diabetes mellitus complication status: with kidney complications Diabetes mellitus complication detail: with chronic kidney disease Chronic kidney disease stage: on chronic dialysis Qualified Code(s): E11.22 - Type 2 diabetes mellitus with diabetic chronic kidney disease; N18.6 - End stage renal disease; Z79.4 - detention (current) use of insulin; Z99.2 - Dependence on renal dialysis (5) UTI (urinary tract infection) due to urinary indwelling Madden catheter Qualifiers: Qualified Code(s): T83.511A - Infection and inflammatory reaction due to indwe lling urethral catheter, initial encounter; N39.0 - Urinary tract infection, site not specified
[2018-11-13] MEDS ORDERED: 0.9 % Sodium Chloride 250 ML IVC PRN (07:12)
[2018-11-13 07:48] LABS: Hematocrit 41.5 % (35.3-44.9); Hemoglobin 12.9 g/dL (11.5-15.4); Mean Corpuscular HGB Conc 31.1 g/dL (31.6-35.5); Mean Corpuscular Hemoglobin 28.4 pg (28.0-33.3); Mean Corpuscular Volume 91.4 fL (83.0-100.0); Mean Platelet Volume 8.9 fL (9.4-12.4); Platelet Count 142 K/mcL (140-400); Red Blood Count 4.54 M/mcL (3.82-4.97); Red Cell Distribution Width 15.2 % (11.5-14.5)
[2018-11-13 08:19] LABS: Calcium 8.6 mg/dL (8.6-10.3); Potassium 4.4 mEq/L (3.5-5.1)
[2018-11-13] MEDS ORDERED: CefTRIAXone 1,000 MG VIAL ONE (09:19)
[2018-11-13] MEDS: Insulin LISPRO 300 UNITS/3 ML VIAL SQ SCH ×2 (09:25→12:17)
[2018-11-13] MEDS: cefTRIAXone 1,000 MG in Water for inj. (sterile) 20 ML 10 ML IVP SCH (09:25)
--- NOTE | 2018-11-13 10:28 | Nephrology Progress Note ---
Date of Encounter: 11/13/18 Time of Encounter: 08:15 - Assessment and Plan (1) ESRD (end stage renal disease) on dialysis Current Visit: Yes Status: Chronic HD TRS: due for HD today, which I've ordered. Renal vitamins. Renal dose medications. Renal diet. Additional dialysis and ultrafiltration as needed. Subjective Principal diagnosis: esrd Interval history: The patient was seen and examined. She did not affirm new onset nausea, vomiting or other major complaints. She voiced agreement to proceed with dialysis as per her typical schedule today (Thursday). Objective - Vital Signs Vital signs: Vital Signs Temp Pulse Resp BP Pulse Ox 11/13/18 07:11 97.6 F 84 16 126/65 98 11/13/18 03:18 97.6 F 90 16 111/56 98 11/12/18 23:57 97.6 F 83 17 128/78 99 11/12/18 21:53 100 11/12/18 19:40 97.4 F L 86 17 149/69 100 11/12/18 10:34 97.9 F 70 16 129/62 100 Intake and Output 11/12/18 11/13/18 11/13/18 23:59 07:59 15:59 Intake Total 200 / 200 10 / 10 Output Total 150 / 150 Balance 50 / 50 10 / 10 Intake: IV Fluids 200 / 200 10 / 10 Rocephin 1,000 MG In Water for 10 / 10 inj. (sterile) 10 ML @ 600 mls/ hr IVP DAILY [facility] Rx#:[id number] Oral 0 / 0 Output: Urine 0 / 0 Catheter 150 / 150 Other: Weight 54.1 kg Blood Glucose* 268 209 - General Appearance General appearance: Present: appears started age, cachectic EENT: Present: ATNC, mucous membranes moist Neck: Present: supple Respiratory: Present: clear Cardiology: Present: no edema, regular rate, regular rhythm, normal S1, normal S2 Dialysis Vascular Access: Venous Catheter (Permacath with exit site C/D/I) Gastrointestinal: Present: normoactive bowel sounds Integumentary: Present: warm and dry Neurologic: Present: no focal deficit, no asterixis Musculoskeletal: Present: no cyanosis Psychiatric: Present: cooperative - Lab 11/13/18 07:32 11/13/18 07:32 Most recent lab results Calcium 8.6 mg/dL (8.6-10.3) 11/13/18 07:32 Phosphorus 4.9 mg/dL (2.7-4.5) H 11/10/18 00:49 Magnesium 1.8 mg/dL (1.6-2.6) 11/10/18 00:49 Consult Discharge Plan - Plan Referrals: Macario Diallo MD [Primary Care Provider] -
--- NOTE | 2018-11-13 14:45 | Discharge Summary ---
Orders not resulted at time of discharge: Pending orders 11/09/18 12:30 Culture,Blood [BC] Stat 11/11/18 22:09 ECG 12 lead ECG [ECG] Routine 11/14/18 04:00 Chem 7 [Basic Metabolic Panel] AM 0400 Complete Blood Count w/o Diff [HEME] AM 04011/15/18 04:00 Chem 7 [Basic Metabolic Panel] AM 0400 Complete Blood Count w/o Diff [HEME] AM 04011/16/18 04:00 Chem 7 [Basic Metabolic Panel] AM 0400 Complete Blood Count w/o Diff [HEME] AM 04011/17/18 04:00 Chem 7 [Basic Metabolic Panel] AM 0400 Complete Blood Count w/o Diff [HEME] AM 04011/18/18 04:00 Chem 7 [Basic Metabolic Panel] AM 0400 Complete Blood Count w/o Diff [HEME] AM 04011/19/18 04:00 Chem 7 [Basic Metabolic Panel] AM 0400 Complete Blood Count w/o Diff [HEME] AM 04011/20/18 04:00 Chem 7 [Basic Metabolic Panel] AM 0400 Complete Blood Count w/o Diff [HEME] AM 04011/21/18 04:00 Chem 7 [Basic Metabolic Panel] AM 0400 Complete Blood Count w/o Diff [HEME] AM 0400 Date of Encounter: 11/13/18 Time of Encounter: 14:39 - Discharge Diagnosis (1) Nausea and vomiting Priority: Primary Status: Acute Qualifiers: Vomiting type: unspecified Vomiting Intractability: intractable Qualified Code(s): R11.2 - Nausea with vomiting, unspecified (2) T2DM (type 2 diabetes mellitus) Priority: Secondary Status: Chronic Qualifiers: Diabetes mellitus [facility] insulin use: with [facility] use Diabetes mellitus complication status: with kidney complications Diabetes mellitus complication detail: with chronic kidney disease Chronic kidney disease stage: on chronic dialysis Qualified Code(s): E11.22 - Type 2 diabetes mellitus with diabetic chronic kidney disease; N18.6 - End stage renal disease; Z79.4 - terminal system 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; Z99.2 - Dependence on renal dialysis (3) Hypertensive renal disease with renal failure Priority: Secondary Status: Chronic (4) Abnormal EKG Priority: Secondary Status: Acute (5) UTI (urinary tract infection) due to urinary indwelling Amdden catheter Priority: Secondary Status: Acute Qualifiers: Qualified Code(s): T83.511A - Infection and inflammatory reaction due to indwelling urethral catheter, initial encounter; N39.0 - Urinary tract infection, site not specified (6) ESRD (end stage renal disease) on dialysis Priority: Secondary Status: Chronic (7) Anxiety Priority: Secondary Status: Chronic Hospital course: Ms. Lacy is a 73 year old female Discharge discussed with: patient, nurse - Time Spent with Patient Total time spent providing and/or coordinating discharge services: Time spent: Greater than 30 minutes (40 minutes...) - Discharge Medications Prescriptions: New Cefdinir [Omnicef] 300 mg PO Q48H #5 capsule Metoclopramide HCl 5 mg PO BID #60 tablet Continue Aspirin Enteric Coated [Aspirin EC] 81 mg PO DAILY Ferrous Sulfate 325 mg PO BIDWM Isosorbide MONOnitrate (24 HR) [Imdur] 30 mg PO DAILY Metoprolol Succinate [Toprol Xl] 25 mg PO DAILY Insulin ASPART [Novolog Flexpen] 0 unit SQ TID PRN PRN Reason: sliding scale Pravastatin Sodium 10 mg PO HS Folic Acid/Vit B Complex and C [Dialyvite Tablet] 1 tab PO DAILY OxyCODONE Immed Rel [Roxicodone 5 MG] 2.5 mg PO Q6H PRN PRN Reason: Pain Changed Insulin Glargine,Hum.rec.anlog [Basaglar Kwikpen U-100] 10 unit SQ HS #0 Discontinued cephALEXin [Keflex] 500 mg PO TID #30 capsule Home Medications: Aspirin Enteric Coated [Aspirin EC] 81 mg PO DAILY 08/04/17 [History] Ferrous Sulfate 325 mg PO BIDWM 10/28/17 [History] Insulin ASPART [Novolog Flexpen] 0 unit SQ TID PRN 05/28/18 [History] Isosorbide MONOnitrate (24 HR) [Imdur] 30 mg PO DAILY 05/28/18 [History] Metoprolol Succinate [Toprol Xl] 25 mg PO DAILY 05/28/18 [History] Pravastatin Sodium 10 mg PO HS 07/23/18 [History] Folic Acid/Vit B Complex and C [Dialyvite Tablet] 1 tab PO DAILY 10/22/18 [History] OxyCODONE Immed Rel [Roxicodone 5 MG] 2.5 mg PO Q6H PRN 11/12/18 [History] Cefdinir [Omnicef] 300 mg PO Q48H #5 capsule 11/13/18 [Rx] Insulin Glargine,Hum.rec.anlog [Basaglar Kwikpen U-100] 10 unit SQ HS #0 11/13/18 [Rx] Metoclopramide HCl 5 mg PO BID #60 tablet 11/13/18 [Rx] Allergies/Adverse Reactions: Allergy/AdvReac Type Severity Reaction Status Date / Time acetaminophen [From Tylenol] Allergy See Verified 07/22/18 11:05 Comments Influenza Virus Vaccines Allergy See Verified 07/22/18 11:05 Comments NSAIDS (Non-Steroidal Allergy See Verified 07/22/18 11:05 Anti-Inflamma Comments Date of admission: 11/11/18 18:40 Primary care physician: Macario Diallo MD Consults: 11/09/18 20:39 Consult to Nephrology [CONS] Routine Consulting Provider: [facility]/SHAINA/FARTUN/HE[facility]EN Reason for Consult: HD TTS Call Completed: No 11/10/18 14:34 Consult to Nurse Navigator [CONS] Routine Comment: hd 11/11/18 08:15 Consult to Dialysis [CONS] ONCE 11/13/18 07:15 Consult to Dialysis [CONS] ONCE Discharging clinician: Salvador Carcamo Anticipated date of discharge: 11/13/18 - Constitutional Vitals: Temp Pulse Resp BP Pulse Ox 97.6 F 90 15 106/51 98 11/13/18 07:11 11/13/18 13:03 11/13/18 13:03 11/13/18 13:03 11/13/18 07:11 General appearance: Present: A&O X 3, no acute distress, answers questions appropriately Exam: xx - Patient Status Disposition: Home, Self-Care Condition: Fair Functional capacity at discharge: wheelchair bound Overall status at discharge: patient is back to baseline - Discharge Instructions Follow Up With: Macario Diallo MD [Primary Care Provider] - Forms: ED Satisfaction Letter, Work/School Release Additional Instructions: HD ON THU/ARTEM/SAT... FOLLOW-UP WITH PCP -- IN ABOUT 2 WEEKS... - Diet and Activity Activity: other (WHEELCHAIR BOUND) Diet: diabetic diet
--- NOTE | 2018-11-13 15:13 | Physician Discharge Referral ---
Home Health/Hosp Referral Info Transfer to: Home Health Attending Provider: Jatin Carcamo MD Provider in Charge Post Discharge: PCP - Diagnosis (1) Nausea and vomiting Priority: Primary Status: Acute (2) T2DM (type 2 diabetes mellitus) Priority: Primary Status: Chronic (3) Hypertensive renal disease with renal failure Priority: Secondary Status: Chronic (4) Abnormal EKG Priority: Secondary Status: Resolved (5) UTI (urinary tract infection) due to urinary indwelling Madden catheter Priority: Primary Status: Acute (6) ESRD (end stage renal disease) on dialysis Priority: Secondary Status: Chronic (7) Anxiety Priority: Secondary Status: Chronic - Respiratory Orders None Smoking Cessation: Smoking cessation has been advised. For more information, call the [employer] [facility] Tobacco Quit Line at 5-418-JRRV-NOW. - Diet/Nutrition Diet/Nutrition Orders: No Concentrated Sweets - Activity Activity Orders: Bedrest (plus wheelchair...) - Services Needed Following services are medically necessary services: Nursing, Home Health Aide - Transfer Medications Prescriptions: Cefdinir [Omnicef] 300 mg PO Q48H #5 capsule Metoclopramide HCl 5 mg PO BID #60 tablet Home Medications: Aspirin Enteric Coated [Aspirin EC] 81 mg PO DAILY 08/04/17 [History] Ferrous Sulfate 325 mg PO BIDWM 10/28/17 [History] Insulin ASPART [Novolog Flexpen] 0 unit SQ TID PRN 05/28/18 [History] Isosorbide MONOnitrate (24 HR) [Imdur] 30 mg PO DAILY 05/28/18 [History] Metoprolol Succinate [Toprol Xl] 25 mg PO DAILY 05/28/18 [History] Pravastatin Sodium 10 mg PO HS 07/23/18 [History] Folic Acid/Vit B Complex and C [Dialyvite Tablet] 1 tab PO DAILY 10/22/18 [History] OxyCODONE Immed Rel [Roxicodone 5 MG] 2.5 mg PO Q6H PRN 11/12/18 [History] Cefdinir [Omnicef] 300 mg PO Q48H #5 capsule 11/13/18 [Rx] Insulin Glargine,Hum.rec.anlog [Basaglar Kwikpen U-100] 10 unit SQ HS #0 11/13/18 [Rx] Metoclopramide HCl 5 mg PO BID #60 tablet 11/13/18 [Rx] Allergies/Adverse Reactions: Allergy/AdvReac Type Severity Reaction Status Date / Time acetaminophen [From Tylenol] Allergy See Verified 07/22/18 11:05 Comments Influenza Virus Vaccines Allergy See Verified 07/22/18 11:05 Comments NSAIDS (Non-Steroidal Allergy See Verified 07/22/18 11:05 Anti-Inflamma Comments Certification: Further, I certify that my clinical findings support that this patient is homebound (i.e. absences from home require considerable and taxing effort and are for medical reasons or tenriism services or infrequently or short duration when for other reasons) because: Homebound Reason: Patient requires assistance of a person or device to safely leave home Attestation: My signature below is to certify that this patient is under my care and that I, or nurse practitioner, or a physician's dam tender assistant working with me, has a [id number] encounter with this patient.
[2018-11-13 15:26] VITALS: BP 124/58
== END 2018-11-13 16:31 | disposition home or self-care (01) | DRG 698 ==
LOC: EMEROOARM 11:47 → 2ANU 11:47 → SUATTDRO 14:35 → 2ANU 15:41
PROVIDERS: ADMIT Internal Medicine Nephrology; ATTEND Internal Medicine

== ENCOUNTER 2018-12-21 10:34 | Observation (INO) ==
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
[2018-12-21 14:16] LABS: Basophils % 0.5 %; Eosinophils # 0.2 K/mcL (0.0-0.6); Eosinophils % 3.6 %; Hematocrit 40.1 % (35.3-44.9); Hemoglobin 12.7 g/dL (11.5-15.4); Immature Granulocytes % 0.5 % (0-4); Lymphocytes % 29.5 %; Mean Corpuscular HGB Conc 31.7 g/dL (31.6-35.5); Mean Corpuscular Hemoglobin 29.1 pg (28.0-33.3); Mean Corpuscular Volume 91.8 fL (83.0-100.0); Monocytes # 0.4 K/mcL (0.0-1.3); Monocytes % 6.1 %; Platelet Count 223 K/mcL (140-400); Red Blood Count 4.37 M/mcL (3.82-4.97); Red Cell Distribution Width 18.4 % (11.5-14.5); Segmented Neutrophils % 59.8 %
[2018-12-21 14:21] LABS: Bilirubin,Urine Negative (Negative); Blood,Urine Large (Negative); Clarity,Urine Turbid (Clear); Color,Urine Yellow (Yellow); Glucose,Urine (UA) 100 mg/dL (Normal); Ketones,Urine Negative (Negative); Leukocyte Esterase,Urine Large (Negative); Nitrite,Urine Negative (Negative); Protein,Urine 100 mg/dL (Neg-Trace); Specific Gravity,Urine 1.013 (1.010-1.025); Urobilinogen,Urine Normal (Normal)
[2018-12-21 14:24] LABS: Bacteria,Urine Many per hpf (None-Few); Hyaline Casts,Urine None Seen per lpf (None-Few); RBC,Urine TNTC per hpf (0-3); Squamous Epithelial Cell,Urine Many per lpf (None-Few); WBC,Urine TNTC per hpf (0-3)
[2018-12-21 14:36] LABS: Acetaminophen < 10 mcg/mL (10-20); Alanine Aminotransferase 8 Units/L (7-52); Albumin 3.1 g/dL (3.5-5.7); Albumin/Globulin Ratio 0.7 (1.1-2.2); Alkaline Phosphatase 136 Units/L (34-104); Aspartate Amino Transferase 13 Units/L (13-39); BUN/Creatinine Ratio 12 (6-26); Bilirubin,Total 0.4 mg/dL (0.3-1.0); Blood Urea Nitrogen 52 mg/dL (8-23); Calcium 8.5 mg/dL (8.6-10.3); Carbon Dioxide 24 mEq/L (23-29); Chloride 101 mEq/L (98-107); Globulin 4.7 g/dL (2.4-3.5); Glucose 188 mg/dL (70-105); Osmolality,Calculated 301 (280-300); Potassium 3.7 mEq/L (3.5-5.1); Salicylate < 2.5 mg/dL (15.0-30.0); Sodium 136 mEq/L (136-145); Total Protein 7.8 g/dL (6.4-8.9); eGFR For Non-African Americans 10 (> 60)
[2018-12-21 14:38] LABS: Amphetamine Screen,Urine Negative ng/mL (Cutoff=1000); Barbiturate Screen,Urine Negative ng/mL (Cutoff=200); Benzodiazepines Screen,Urine Negative ng/mL (Cutoff=200); Cannabinoid Screen,Urine Negative ng/mL (Cutoff = 50); Cocaine Screen,Urine Negative ng/mL (Cutoff= 300); Opiate Screen,Urine Negative ng/mL (Cutoff=300); Phencyclidine Screen,Urine Negative ng/mL (Cutoff=25)
[2018-12-21] MEDS ORDERED: *HR* Morphine 2 MG/ML SYRINGE IVP PRN ×2 (16:04→17:18)
[2018-12-21] MEDS ORDERED: Ondansetron 4 MG/2 ML VIAL IVP ONE (16:04)
[2018-12-21] MEDS ORDERED: Naloxone 0.4 MG/ML INJ IVP PRN (16:23)
[2018-12-21] MEDS ORDERED: traMADol 50 MG TABLET PO PRN (16:23)
[2018-12-21] MEDS ORDERED: Dextrose Gel 15 GM/37.5 ML TUBE PO PRN ×2 (16:28)
[2018-12-21] MEDS ORDERED: Albuterol 2.5 MG/3 ML NEBULIZER IH PRN (16:28)
[2018-12-21] MEDS ORDERED: *HR* Dextrose 50 % in Water (Syg) 50 ML SYRINGE IVP PRN (16:28)
[2018-12-21] MEDS ORDERED: D5% in Water 1,000 ML IVC PRN (16:28)
[2018-12-21] MEDS ORDERED: *HR* HYDROcodone/Acet 5/325 mg TABLET PO PRN (16:29)
[2018-12-21] MEDS ORDERED: 0.9 % Sodium Chloride 250 ML IVC PRN (17:07)
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
[2018-12-21] MEDS ORDERED: 0.9 % Sodium Chloride 1,000 ML PRIME SCH (17:15)
--- NOTE | 2018-12-21 17:39 | Nephrology Consult Note ---
Date of Encounter: 12/21/18 Time of Encounter: 17:25 Assessment and Plan (1) ESRD (end stage renal disease) on dialysis Status: Chronic The patient is ESRD on hemodialysis every Thursday//Thursday. She typically dialyzes for approximately 3 hours with 160 filter via a left forearm AV fistula that was recently matured. She still has a left sided permacath in place but incidentally it happens to be scheduled for an outpatient removal tomorrow. The patient asked if I could still have it removed tomorrow, but of note this will require an inpatient interventional radiology consult. Sometimes IR requests that we keep it in place in case if the left forearm AV fistula develops any dysfunction during the hospitalization. She recently fell, and presented with worsening back pain. She was found to have an L2 compression fraction, per report. She did not make it to the dialysis unit today, and her last dialysis was on Thursday, so I was consulted to help arrange for dialysis tonight. I discussed my orders with the terrazzo tile maker, and I have placed HD orders. (2) Compression fracture of L2 lumbar vertebra Status: Acute Qualifiers: Encounter type: initial encounter Qualified Code(s): S32.020A - Wedge compression fracture of second lumbar vertebra, initial encounter for closed fracture (3) Malnutrition Status: Acute Qualifiers: Malnutrition type: protein-calorie malnutrition Protein-calorie malnutrition severity: unspecified severity Qualified Code(s): E46 - Unspecified protein-calorie malnutrition (4) HTN (hypertension) Status: Chronic Qualifiers: Hypertension type: essential hypertension Qualified Code(s): I10 - Essential (primary) hypertension History of Present Illness - Reason for Consult Consult date: 12/21/18 end stage renal disease Requesting physician: Henry Douglas - Chief Complaint ESRD and missed HD earlier today - History of Present Illness The patient is a very pleasant 73-year-old female well known to me who requires thrice weekly hemodialysis at the [facility] dialysis unit in [place], [place]. She typically dialyzes every Thursday//Thursday. She presented status post fall, and did not make it to the dialysis unit. I was n otified late in the work day of her presence, though it appears that she first checked in the ER before noon. She affirmed feeling fatigued, plus havng chronic diminished appetite, new musculoskeletal pain, and having some emotional issues with her family and home health nurse. She voiced that she really likes her home health nurse, and hopes to keep this nurse. She did not affirm active chest pain, palpitations, shortness of breath, or new rash. Past Med Surg Social Fam HX - Past Medical History Medical history: arthritis, diabetes, dialysis, GERD, hyperlipidemia, hypertension, renal disease, other Additional medical history: cdiff. parkinsons Psychiatric history: anxiety, depression - Past Surgical History Surgical History: appendectomy, cholecystectomy, hysterectomy Additional surgical history: Dialysis catheter - Social History Smoking Status: Former smoker Smokeless Tobacco Status: No Alcohol use: none Drug use: none - Family History Mother Living Status: Hx Family Cardiac Disorders: Yes Father Living Status: Hx Family Cardiac Disorders: Yes Sister Hx Family Cardiac Disorders: No Hx Family Respiratory Disorders: No Hx Family Cancer: No Hx Family GI Disorders: No Hx Family Endocrine Disorder: Yes Hx Family Neuromuscular Disorders: No Hx Family Neurologic Disorders: No Hx Family HEENT Disorders: No Hx Family Autoimmune Disorders: No Medications and Allergies Aspirin Enteric Coated [Aspirin EC] 81 mg PO DAILY 08/04/17 [History] Ferrous Sulfate 325 mg PO BIDWM 10/28/17 [History] Insulin ASPART [Novolog Flexpen] 0 unit SQ TID PRN 05/28/18 [History] Isosorbide MONOnitrate (24 HR) [Imdur] 30 mg PO DAILY 05/28/18 [History] Folic Acid/Vit B Complex and C [Dialyvite Tablet] 1 tab PO DAILY 10/22/18 [History] Metoclopramide HCl 5 mg PO BID #60 tablet 11/13/18 [Rx] Albuterol Sulfate [Albuterol Inhaler] 1 puff IH Q4H PRN 12/22/18 [History] Insulin Glargine,Hum.rec.anlog [Basaglar Kwikpen U-100] 10 - 20 unit SQ HS 12/22/18 [History] Metoprolol [Lopressor] 12.5 mg PO BID 12/22/18 [History] Allergy/AdvReac Type Severity Reaction Status Date / Time Influenza Virus Vaccines Allergy See Verified 07/22/18 11:05 Comments NSAIDS (Non-Steroidal Allergy See Verified 07/22/18 11:05 Anti-Inflamma Comments Review of Systems All Systems: reviewed and no additional remarkable complaints except as stated Exam - Vital Signs Vital signs: Initial Vital Signs Temp Pulse Resp BP Pulse Ox 97.7 F 80 17 167/71 100 12/21/18 10:40 12/21/18 10:40 12/21/18 10:40 12/21/18 10:40 12/21/18 10:40 Vital Signs - Last 8 Hours Temp Pulse Resp BP Pulse Ox 12/21/18 17:16 78 134/72 98 12/21/18 15:58 75 132/58 97 12/21/18 13:11 96 17 110/57 95 12/21/18 10:40 97.7 F 80 17 167/71 100 Intake and Output 12/21/18 12/21/18 12/21/18 07:59 15:59 23:59 Other: Weight 57.606 kg Patient Weight 12/21/18 23:59 Weight 57.606 kg - General Appearance General appearance: appears started age, cachectic, chronically ill, fatigue, frail EENT: ATNC, PERRL, mucous membranes moist Neck: supple Respiratory: course breath sounds Cardiology: edema, regular rate, regular rhythm, normal S1, normal S2 - Dialysis Access Dialysis Vascular Access: Arteriovenous Fistula (left forearm AVF with +thrill/bruit and she also has an old Left sided Permacath) thrill: Yes bruit: Yes Gastrointestinal: normoactive bowel sounds, no tenderness, no guarding Integumentary: warm and dry Neurologic: no focal deficit, no asterixis, disoriented Additional Comments: she was seen laying with a wedge as examined in the Er Psychiatric: depressed, cooperative Results - Lab Results 12/23/18 05:24 12/23/18 05:24 Most recent lab results 12/21/18 13:57 Calcium 8.5 L Consult Discharge Plan - Plan Additional Instructions: 1. Please follow up with your primary care physician within five days after your discharge from the hospital. 2. Please follow up with Dr. Espinosa in one week after your discharge from the hospital. 3. Please continue all your home medications as prescribed by your primary care physician. 4. Please seek medical help if you have chest pain or difficulty breathing. Referrals: Arvind Espinosa DO [Partnered Physician] - 12/30/18 9:00 am Macario Diallo MD [Primary Care Provider] - 12/28/18 2:15 pm
[2018-12-21 18:32] LABS: Hepatitis B Surface Antibody < 3.10 mIU/mL
[2018-12-21 18:42] LABS: Hepatitis B Surface Antigen Nonreactive (Nonreactive)
[2018-12-21] MEDS: *HR* Heparin 5,000 UNIT/ML VIAL SQ SCH (23:06)
[2018-12-21] MEDS: cefTRIAXone 1,000 MG in Water for inj. (sterile) 20 ML 10 ML IVP SCH (23:06)
[2018-12-21] MEDS: Metoprolol XL (24 HR) Succ 25 MG TAB.ER.24H PO SCH (23:07)
[2018-12-21] MEDS: Insulin DETEMIR 100 UNIT/ML X5UNITS SQ SCH (23:59)
[2018-12-21] MEDS: Insulin LISPRO 300 UNITS/3 ML VIAL SQ SCH (23:59)
[2018-12-22] MEDS: *HR* Heparin 5,000 UNIT/ML VIAL SQ SCH ×2 (05:19→16:56)
[2018-12-22 06:29] LABS: Basophils % 0.3 %; Eosinophils # 0.2 K/mcL (0.0-0.6); Eosinophils % 3.9 %; Hematocrit 40.3 % (35.3-44.9); Hemoglobin 12.8 g/dL (11.5-15.4); Immature Granulocytes % 0.3 % (0-4); Lymphocytes # 1.7 K/mcL (0.6-4.6); Lymphocytes % 28.5 %; Mean Corpuscular HGB Conc 31.8 g/dL (31.6-35.5); Mean Corpuscular Hemoglobin 29.4 pg (28.0-33.3); Mean Corpuscular Volume 92.4 fL (83.0-100.0); Mean Platelet Volume 9.1 fL (9.4-12.4); Monocytes # 0.4 K/mcL (0.0-1.3); Monocytes % 6.9 %; Neutrophils # 3.6 K/mcL (1.6-8.9); Platelet Count 233 K/mcL (140-400); Red Blood Count 4.36 M/mcL (3.82-4.97); Red Cell Distribution Width 18.5 % (11.5-14.5); Segmented Neutrophils % 60.1 %
[2018-12-22 06:49] LABS: Calcium 8.9 mg/dL (8.6-10.3); Magnesium 1.9 mg/dL (1.6-2.6); Phosphorous 4.8 mg/dL (2.7-4.5); Potassium 4.2 mEq/L (3.5-5.1)
[2018-12-22] MEDS ORDERED: *HR* HYDROcodone/Acet 5/325 mg TABLET PO PRN (08:03)
[2018-12-22] MEDS ORDERED: Isosorbide MONOnitrate (24 HR) 30 MG TAB.ER.24H PO SCH (09:00)
[2018-12-22] MEDS: cefTRIAXone 1,000 MG in Water for inj. (sterile) 20 ML 10 ML IVP SCH (10:05)
[2018-12-22] MEDS: Metoprolol XL (24 HR) Succ 25 MG TAB.ER.24H PO SCH (10:05)
[2018-12-22] MEDS: Insulin LISPRO 300 UNITS/3 ML VIAL SQ SCH ×3 (10:21→17:05)
--- NOTE | 2018-12-22 11:10 | IR Procedure Note ---
Date of procedure: 12/22/18 Consent Obtained: Verbal consent Timeout: Correct patient and procedure verified, Correct site verified, Time out performed, Skin prep completed Indications: Catheter no longer needed. Working AVF. Procedure Performed: Catheter removal. Was there an construction administrative assistant present: No Site/Technique: Left chest wall. Removed without difficulty. Results/Findings: Local used. Tolerated well. No complications. Estimated blood loss (cc): 1 Complications: None; Tolerated procedure well Post Procedure Treatment Plan: Monitoring in pts room Specimen: na
--- NOTE | 2018-12-22 11:12 | Internal Med Progress Note ---
Hospitalist Progress Note - Encounter Date of Encounter: 12/22/18 Time of Encounter: 09:35 - Subjective Interval History: Patient seen and examined with RN present at bedside. Patient resting in bed and reports of pain in lower back an left hip with movement. She states she is wheel chair bound at baseline and lives with family, who assist her with getting in and out of wheel chair. She reports of being on home oxygen and uses it intermittently as needed. Denies any headache, chest pain, sob, abd pain, n/v, fever, or chills. pt has a chronic indwelling naylor catheter, that is changed every 2 weeks. She reports that the naylor is due to be changed on Thursday12/24/18. MRI L spine reported acute L2 compression fracture, spinal surgery evaluation has been requested. Ten point ROS is negative except as listed above. - Exam Vitals: Temp Pulse Resp BP Pulse Ox 97.9 F 83 16 119/65 99 12/22/18 07:57 12/22/18 07:57 12/22/18 07:57 12/22/18 07:57 12/22/18 07:57 Exam: General: No acute distress, AAO x 3, frail appearing elderly female HEENT: EOMI, PERRLA, NC/AT, no scleral icterus Respiratory: Clear to auscultate bilaterally, no wheezing, no rales Cardiovascular: Regular, Rate, Rhythm, No murmurs GI: Soft, Non tender, non distended, normal bowel sounds Ext: No edema, no tenderness, positive pulses Neuro: AAO x 3, no focal deficits, CN II-XII grossly intact - Summary of Assessment and Plan Summary of Assessment and Plan: Pt is a 73 year old female PMH ESRD on HD TTS, DM, HTN, recurrent UTI and CAD who is admitted for lower back pain secondary to L2 compression fracture. Assessment/Plan: 1. Compression fracture of L2 spinal surgery evaluation has been requested continue supportive care pain control MRI L spine reviewed Will await PT evaluation after spinal surgery assessment 2. ESRD on HD nephrology input appreciated continue HD as per nephro 3. HTN BP within acceptable range continue current management closely monitor BP 4. DM sliding scale insulin algorithm monitor FS and BG ADA diet 5. UTI in the setting of chronic indwelling naylor catheter likely colonization will monitor off abx at this time 6. DVT ppx: Heparin SQ Chronic Co-morbidities: CAD, CHF, HLD resume home medications after verification fluid restriction diet Care plan discussed with patient/RN - Time Spent with Patient Total time spent is greater than 50% in coordination of care (as documented) at patient's floor/unit and/or counseling patient: 25 - 35 minutes Internal Medicine: Result - Labs CBC & Chem 7: 12/22/18 05:37 12/22/18 05:37 Labs: Short CBC 12/21/18 12/22/18 Range/Units 13:57 05:37 WBC 6.6 6.0 (4.3-11.1) K/mcL Hgb 12.7 12.8 (11.5-15.4) g/dL Hct 40.1 40.3 (35.3-44.9) % Plt Count 223 233 (140-400) K/mcL Neutrophils # 4.0 3.6 (1.6-8.9) K/mcL BMP 12/21/18 12/22/18 13:57 05:37 Sodium 136 136 Potassium 3.7 4.2 Chloride 101 99 Carbon Dioxide 24 25 BUN 52 H 37 H Creatinine 4.45 H 3.73 H Glucose 188 H 183 H Calcium 8.5 L 8.9 Liver Function 12/21/18 Range/Units 13:57 Total Bilirubin 0.4 (0.3-1.0) mg/dL AST 13 (13-39) Units/L ALT 8 (7-52) Units/L Alkaline Phosphatase 136 H (34-104) Units/L Albumin 3.1 L (3.5-5.7) g/dL Urine 12/21/18 Range/Units 13:55 Urine Color Yellow (Yellow) Urine Clarity Turbid A (Clear) Urine pH 6.0 (5.0-8.0) pH Units Ur Specific [place] 1.013 (1.010-1.025) Urine Protein 100 H (Neg-Trace) mg/dL Urine Glucose (UA) 100 H (Normal) mg/dL - Impressions Impressions Femur X-Ray 12/21/18 11:57 IMPRESSION: Osteopenia with interval compression deformity of L2 when correlated to CT from 10/22/2018. No acute osseous injury of the left femur or pelvis. D/ / 12/21/2018 12:33:25 Jerel Parra MD / aneesh Interpreting Provider: Jerel Parra MD Lumbar Spine X-Ray 12/21/18 11:57 IMPRESSION: Osteopenia with interval compression deformity of L2 when correlated to CT from 10/22/2018. No acute osseous injury of the left femur or pelvis. D/ / 12/21/2018 12:33:25 Jerel Parra MD / aneesh Interpreting Provider: Jerel Parra MD Pelvis X-Ray 12/21/18 11:57 IMPRESSION: Osteopenia with interval compression deformity of L2 when correlated to CT from 10/22/2018. No acute osseous injury of the left femur or pelvis. D/ / 12/21/2018 12:33:25 Jerel Parra MD / aneesh Interpreting Provider: Jerel Parra MD Lumbar Spine CT 12/21/18 13:45 IMPRESSION: 1. Compression fracture involving the L2 vertebral body with mild wedge-shaped deformity. This is a new finding compared to a CT scan dated 10/22/2018. She would be a candidate for vertebroplasty. D/ / Hubert Dc MD / Hubert Dc MD Interpreting Provider: Hubert Dc MD Lumbar Spine MRI 12/21/18 17:09 IMPRESSION: 1. Acute L2 compression fracture with 20% anterior vertebral body height loss. No posterior cortex retropulsion. 2. No significant degenerative changes in the lumbar spine. D/ / Arvind Rodriguez / Arvind Rodriguez Interpreting Provider: Arvind Rodriguez Consult Discharge Plan - Plan Referrals: Macario Diallo MD [Primary Care Provider] -
[2018-12-22] MEDS ORDERED: Aspirin 81 MG TAB.CHEW PO SCH (11:15)
--- NOTE | 2018-12-22 11:55 | Nephrology Progress Note ---
Date of Encounter: 12/22/18 Time of Encounter: 10:00 - Assessment and Plan (1) ESRD (end stage renal disease) on dialysis Status: Chronic She was already scheduled for an outpt Permacath removal, so earlier today I made her NPO and arranged for her permacath to be removed. As I was rounding, the permacath had just been removed by IR, and she reported feeling well. She will not need extra dialysis today, and I will plan for her next treatment in keeping with her typical schedule of every Thursday//Thursday. Continue to follow standard renal protocols: including strict I's and O's, daily weights, avoidance of nephrotoxins as able, and renal dosing. We will follow with you. Thank you. (2) Compression fracture of L2 lumbar vertebra Status: Acute As per primary Qualifiers: Encounter type: initial encounter Qualified Code(s): S32.020A - Wedge compression fracture of second lumbar vertebra, initial encounter for closed fracture (3) Malnutrition Status: Acute Recommend renal diet for dialysis patients, which is high in protein. She has hypoalbuminemia, and ESRD pt's have a goal of 4 in the serum. Qualifiers: Malnutrition type: protein-calorie malnutrition Protein-calorie malnutrition severity: unspecified severity Qualified Code(s): E46 - Unspecified protein-calorie malnutrition (4) HTN (hypertension) Status: Chronic Hold any antihypertensive Rx on mornings just before HD to avoid inducing intradialytic hypotension. Qualifiers: Hypertension type: essential hypertension Qualified Code(s): I10 - Essential (primary) hypertension Subjective Principal diagnosis: ESRD Interval history: The patient was seen and examined earlier in the day. I received a friendly call from the outpatient dialysis unit requesting that I also order the Permacath to be removed now that the pt is in the hospital. The patient reportedly already have this scheduled to be removed on this day as an outpatient. The patient was seen and reported feeling relatively well, though still reported having mostly emotional concerns about her home health nurse for whom she really likes. She did not affirm active nausea, vomiting, diarrhea. Objective - Vital Signs Vital signs: Vital Signs Temp Pulse Resp BP Pulse Ox 12/22/18 11:31 97.7 F 77 16 102/50 99 12/22/18 07:57 97.9 F 83 16 119/65 99 12/22/18 04:41 98.1 F 85 16 112/57 98 12/21/18 22:59 86 152/77 12/21/18 22:19 15 130/76 12/21/18 21:50 114/71 12/21/18 21:35 109/67 12/21/18 21:20 121/69 12/21/18 21:05 111/59 12/21/18 20:50 121/67 12/21/18 20:35 120/68 12/21/18 20:20 137/53 12/21/18 20:05 111/60 12/21/18 20:01 81 19 121/51 99 12/21/18 19:50 17 121/51 12/21/18 17:16 78 134/72 98 12/21/18 15:58 75 132/58 97 12/21/18 13:11 96 17 110/57 95 Intake and Output 12/21/18 12/22/18 12/22/18 23:59 07:59 15:59 Intake Total 510 / 510 0 / 0 Output Total 1999 Balance -1490 / -1490 0 / 0 Intake: IV Fluids Rocephin 1,000 MG In Water for inj. (sterile) 10 ML @ 600 mls/ hr IVP DAILY [facility] Rx#:[id number] Oral 0 / 0 0 / 0 Intake, Rinseback and Flushes 500 / 500 Output: Urine 0 / 0 Total Dialysis (HD) Output 1999 Other: Meal NPO Percent of Meal Consumed 0% Stool Size Small Stool Consistency soft Stool Characteristics Normal for Patient Stool Color Brown Yellow # Bowel Movements 1 # Bowel Movement Diapers 1 Weight 54.5 kg Blood Glucose* 146 178 152 Hemodialysis Net Fluid Removed 1500 (mL) Patient Weight 12/22/18 23:59 Weight 54.5 kg - General Appearance General appearance: Present: cachectic, chronically ill, fatigue, frail EENT: Present: ATNC Respiratory: Present: clear Cardiology: Present: no edema, regular rate, regular rhythm Dialysis Vascular Access: Arteriovenous Fistula (left forearm with +thrill/bruit) Additional Comments: The Permacath was removed and a dressing was in place: no ozzing Gastrointestinal: Present: normoactive bowel sounds, no guarding Neurologic: Present: no focal deficit, no asterixis Psychiatric: Present: mood/affect appropriate, cooperative Additional Comments: She quickly oscillates from crying to laughter and mary lou. - Lab 12/23/18 05:24 12/23/18 05:24 Most recent lab results 12/22/18 05:37 Calcium 8.9 Phosphorus 4.8 H Magnesium 1.9 Consult Discharge Plan - Plan Additional Instructions: 1. Please follow up with your primary care physician within five days after your discharge from the hospital. 2. Please follow up with Dr. Espinosa in one week after your discharge from the hospital. 3. Please continue all your home medications as prescribed by your primary care physician. 4. Please seek medical help if you have chest pain or difficulty breathing. Referrals: Arvind Espinosa DO [Partnered Physician] - 12/30/18 9:00 am Macario Diallo MD [Primary Care Provider] - 12/28/18 2:15 pm
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
[2018-12-22] MEDS: Insulin DETEMIR 100 UNIT/ML X5UNITS SQ SCH (20:27)
[2018-12-23] MEDS: *HR* Heparin 5,000 UNIT/ML VIAL SQ SCH (05:41)
[2018-12-23 05:49] LABS: Basophils % 0.4 %; Eosinophils # 0.2 K/mcL (0.0-0.6); Eosinophils % 4.2 %; Hematocrit 40.2 % (35.3-44.9); Hemoglobin 12.4 g/dL (11.5-15.4); Immature Granulocytes % 0.2 % (0-4); Lymphocytes # 1.8 K/mcL (0.6-4.6); Lymphocytes % 35.3 %; Mean Corpuscular HGB Conc 30.8 g/dL (31.6-35.5); Mean Corpuscular Hemoglobin 29.1 pg (28.0-33.3); Mean Corpuscular Volume 94.4 fL (83.0-100.0); Mean Platelet Volume 9.1 fL (9.4-12.4); Monocytes # 0.4 K/mcL (0.0-1.3); Monocytes % 7.9 %; Neutrophils # 2.6 K/mcL (1.6-8.9); Platelet Count 226 K/mcL (140-400); Red Blood Count 4.26 M/mcL (3.82-4.97); Red Cell Distribution Width 18.3 % (11.5-14.5)
[2018-12-23 06:09] LABS: Calcium 8.4 mg/dL (8.6-10.3); Magnesium 1.9 mg/dL (1.6-2.6); Phosphorous 6.2 mg/dL (2.7-4.5); Potassium 4.8 mEq/L (3.5-5.1)
[2018-12-23] MEDS ORDERED: 0.9 % Sodium Chloride 250 ML IVC PRN (07:21)
[2018-12-23] MEDS ORDERED: Albuterol 2.5 MG/3 ML NEBULIZER IH PRN (08:23)
[2018-12-23] MEDS ORDERED: Metoclopramide 10 MG/10 ML UD.LIQ PO SCH (08:24)
[2018-12-23] MEDS: Insulin LISPRO 300 UNITS/3 ML VIAL SQ SCH (08:54)
[2018-12-23] MEDS ORDERED: Renal Vitamin 1 CAP CAPSULE PO SCH (09:00)
[2018-12-23] MEDS ORDERED: METOCLOPRAMIDE HCL 5 MG PO SCH (09:00)
--- NOTE | 2018-12-23 11:05 | Physician Discharge Referral ---
Home Health/Hosp Referral Info Transfer to: Home Health Provider in Charge Post Discharge: PCP - Diagnosis (1) Compression fracture of L2 lumbar vertebra Priority: Primary Status: Acute (2) Diabetes mellitus Priority: Secondary Status: Chronic (3) ESRD (end stage renal disease) on dialysis Priority: Secondary Status: Chronic - Respiratory Orders Smoking Cessation: Smoking cessation has been advised. For more information, call the [place] Tobacco Quit Line at 7-736-SLKR-NOW. - Services Needed Following services are medically necessary services: Nursing, Home Health Aide, Physical Therapy (continue TLSO brace during PT and while sitting or getting out of bed), Occupational Therapy - Transfer Medications Prescriptions: HYDROcodone/Acet 5/325 mg [[place] 5-325 mg] 1 tab PO TID PRN 3 Days #10 tablet PRN Reason: Severe Pain Home Medications: Aspirin Enteric Coated [Aspirin EC] 81 mg PO DAILY 08/04/17 [History] Ferrous Sulfate 325 mg PO BIDWM 10/28/17 [History] Insulin ASPART [Novolog Flexpen] 0 unit SQ TID PRN 05/28/18 [History] Isosorbide MONOnitrate (24 HR) [Imdur] 30 mg PO DAILY 05/28/18 [History] Folic Acid/Vit B Complex and C [Dialyvite Tablet] 1 tab PO DAILY 10/22/18 [History] Metoclopramide HCl 5 mg PO BID #60 tablet 11/13/18 [Rx] Albuterol Sulfate [Albuterol Inhaler] 1 puff IH Q4H PRN 12/22/18 [History] Insulin Glargine,Hum.rec.anlog [Basaglar Kwikpen U-100] 10 - 20 unit SQ HS 12/22/18 [History] Metoprolol [Lopressor] 12.5 mg PO BID 12/22/18 [History] HYDROcodone/Acet 5/325 mg [[place] 5-325 mg] 1 tab PO TID PRN 3 Days #10 tablet 12/23/18 [Rx] Allergies/Adverse Reactions: Allergy/AdvReac Type Severity Reaction Status Date / Time Influenza Virus Vaccines Allergy See Verified 07/22/18 11:05 Comments NSAIDS (Non-Steroidal Allergy See Verified 07/22/18 11:05 Anti-Inflamma Comments Certification: Further, I certify that my clinical findings support that this patient is homebound (i.e. absences from home require considerable and taxing effort and are for medical reasons or faith services or infrequently or short duration when for other reasons) because: Homebound Reason: Patient requires assistance of a person or device to safely leave home Attestation: My signature below is to certify that this patient is under my care and that I, or nurse practitioner, or a physician's physician office assistant working with me, has a [id number] encounter with this patient.
--- NOTE | 2018-12-23 11:07 | Discharge Summary ---
- NOTES TO OUTPATIENT PROVIDER Notes to Outpatient Provider: Pt was admitted for acute L2 compression fracture, supportive care was recommended by orthopedic surgery and TLSO brace use while getting out of bed or ambulation. Pt refused SNF or PT evaluation while inpatient and wishes to return to home with continuation of home PT. She was also found to have positive UA but clinically asymptomatic due to which she was monitored off abx. Pt has an indwelling naylor catheter which is due to be changed on 12/24/18. Orders not resulted at time of discharge: Pending orders 12/21/18 13:55 Culture,Urine [RM] Stat Date of Encounter: 12/23/18 Time of Encounter: 11:05 - Discharge Diagnosis (1) Compression fracture of L2 lumbar vertebra Priority: Primary Status: Acute Qualifiers: Encounter type: initial encounter Qualified Code(s): S32.020A - Wedge compression fracture of second lumbar vertebra, initial encounter for closed fracture (2) Diabetes mellitus Priority: Secondary Status: Chronic Qualifiers: Diabetes mellitus type: type 2 Diabetes mellitus fdc insulin use: unspecified fdc insulin use status Diabetes mellitus complication status: with unspecified complications Qualified Code(s): E11.8 - Type 2 diabetes mellitus with unspecified complications (3) ESRD (end stage renal disease) on dialysis Priority: Secondary Status: Chronic Hospital course: Ms. Lacy is a 73 year old female with past medical history of end-stage renal disease on hemodialysis, diabetes mellitus, hypertension, chronic indwelling Naylor catheter with recurrent UTIs, and coronary artery disease who was admitted for lower back pain secondary to acute L2 compression fracture. Patient was evaluated by orthopedic surgery and supportive care was recommended at this time. Patient was given a spinal brace to be used with ambulation and for get ting in and out of bed. Patient refused physical therapy while inpatient and wishes to return to home with continuation of her home PT. She also had a permacath in place which was removed by interventional radiology during this hospitalization, as patient's AV fistula has matured and is ready to be used. Patient was followed by nephrology during this hospitalization and was continued on hemodialysis sessions. Patient was also reported to have a positive UA however given chronic indwelling Naylor catheter and clinically asymptomatic patient, she was monitored off antibiotics. She is currently in hemodialysis and wishes to return to home. She denies any pain at rest. She was seen and examined in dialysis today. Patient is medically stable for discharge to home with outpatient follow-up with PCP and orthopedic surgery. Patient's home health services with physical therapy, occupational therapy have been continued on discharge. Discharge discussed with: patient, nurse, social work, case management - Time Spent with Patient Total time spent providing and/or coordinating discharge services: 29 minutes - Discharge Medications Prescriptions: New HYDROcodone/Acet 5/325 mg [[place] 5-325 mg] 1 tab PO TID PRN 3 Days #10 tablet PRN Reason: Severe Pain Continued Aspirin Enteric Coated [Aspirin EC] 81 mg PO DAILY Ferrous Sulfate 325 mg PO BIDWM Isosorbide MONOnitrate (24 HR) [Imdur] 30 mg PO DAILY Insulin ASPART [Novolog Flexpen] 0 unit SQ TID PRN PRN Reason: sliding scale Folic Acid/Vit B Complex and C [Dialyvite Tablet] 1 tab PO DAILY Metoclopramide HCl 5 mg PO BID #60 tablet Insulin Glargine,Hum.rec.anlog [Basaglar Kwikpen U-100] 10 - 20 unit SQ HS Metoprolol [Lopressor] 12.5 mg PO BID Albuterol Sulfate [Albuterol Inhaler] 1 puff IH Q4H PRN PRN Reason: Shortness Of Breath Home Medications: Aspirin Enteric Coated [Aspirin EC] 81 mg PO DAILY 08/04/17 [History] Ferrous Sulfate 325 mg PO BIDWM 10/28/17 [History] Insulin ASPART [Novolog Flexpen] 0 unit SQ TID PRN 05/28/18 [History] Isosorbide MONOnitrate (24 HR) [Imdur] 30 mg PO DAILY 05/28/18 [History] Folic Acid/Vit B Complex and C [Dialyvite Tablet] 1 tab PO DAILY 10/22/18 [History] Metoclopramide HCl 5 mg PO BID #60 tablet 11/13/18 [Rx] Albuterol Sulfate [Albuterol Inhaler] 1 puff IH Q4H PRN 12/22/18 [History] Insulin Glargine,Hum.rec.anlog [Basaglar Kwikpen U-100] 10 - 20 unit SQ HS 12/22/18 [History] Metoprolol [Lopressor] 12.5 mg PO BID 12/22/18 [History] HYDROcodone/Acet 5/325 mg [[place] 5-325 mg] 1 tab PO TID PRN 3 Days #10 tablet 12/23/18 [Rx] Allergies/Adverse Reactions: 3 Allergy/AdvReac Type Severity Reaction Status Date / Time Influenza Virus Vaccines Allergy See Verified 07/22/18 11:05 Comments NSAIDS (Non-Steroidal Allergy See Verified 07/22/18 11:05 Anti-Inflamma Comments Date of admission: 12/21/18 18:37 Primary care physician: Macario Diallo MD Consults: 12/21/18 16:29 Consult to Nephrology [CONS] Routine Consulting Provider: [facility] Reason for Consult: ESRD Call Completed: No 12/21/18 17:00 Consult to Orthopedic Surgery [CONS] Routine Consulting Provider: [facility] Reason for Consult: compression fracture of L2. Call Completed: Yes 12/21/18 17:15 Consult to Dialysis [CONS] ONCE 12/21/18 17:41 Consult to Orthopedic Surgery [CONS] Stat Consulting Provider: [facility] Reason for Consult: Lumbar compression fracture, Dr. Espinosa Time Notified: 17:42 Call Completed: Yes 12/21/18 23:23 Consult to Cloth Picker [CONS] Routine Reason for SW Consult: follow up upon D/C patient has HH and oxygen therapy at home 12/22/18 07:52 Consult to Interventional Radiology [CONS] Routine Consulting Provider: Radiology Interventional [facility]s Reason for Consult: She was already scheduled for Permacath removal as an outpt. Her left upper extremity AV access is working well. Call Completed: Yes 12/23/18 07:30 Consult to Dialysis [CONS] ONCE 12/23/18 08:12 Consult to Occupational Therapy [CONS] Stat Comment: Evaluate, develop and implement POC Reason for Consult: assessment for discharge disposition Does patient have active BEDREST order?: No Is patient medically & hemodynamically stable?: Yes Patient assessed for mobility or mobilized this visit?: Yes Consult to Physical Therapy [CONS] Stat Comment: Evaluate, develop and implement POC Reason for Consult: assessment for discharge disposition Does patient have active BEDREST order?: No Is patient medically & hemodynamically stable?: Yes Patient assessed for mobility or mobilized this visit?: Yes 12/23/18 08:38 Consult to Nurse Navigator [CONS] Routine Comment: hd Discharging clinician: Michell Nick Anticipated date of discharge: 12/23/18 - Constitutional Vitals: Temp Pulse Resp BP Pulse Ox 97.5 F L 79 16 99/61 100 12/23/18 09:10 12/23/18 07:59 12/23/18 09:10 12/23/18 09:55 12/23/18 07:59 Exam: General: No acute distress, AAO x 3, frail appearing elderly female HEENT: EOMI, PERRLA, NC/AT, no scleral icterus Respiratory: Clear to auscultate bilaterally, no wheezing, no rales Cardiovascular: Regular, Rate, Rhythm, No murmurs GI: Soft, Non tender, non distended, normal bowel sounds Ext: No edema, no tenderness, positive pulses Neuro: AAO x 3, no focal deficits, CN II-XII grossly intact - Patient Status Disposition: Home Health Service Condition: Fair Functional capacity at discharge: wheelchair bound - Discharge Instructions Follow Up With: Macario Diallo MD [Primary Care Provider] - Additional Instructions: 1. Please follow up with your primary care physician within five days after your discharge from the hospital. 2. Please follow up with Dr. Espinosa in one week after your discharge from the hospital. 3. Please continue all your home medications as prescribed by your primary care physician. 4. Please seek medical help if you have chest pain or difficulty breathing. - Diet and Activity Activity: as per physical therapy, wear oxygen at all times Diet: diabetic diet, low fat, low cholesterol, low salt diet
--- NOTE | 2018-12-23 12:59 | Nephrology Progress Note ---
Date of Encounter: 12/23/18 Time of Encounter: 09:10 - Assessment and Plan (1) ESRD (end stage renal disease) on dialysis Status: Chronic Dialysis note: the pt's labs, vitals, med list and progress notes were reviewed and used to place her HD orders for today. Left arm AVG had +Thrill/bruit. (2) Compression fracture of L2 lumbar vertebra Status: Acute Qualifiers: Encounter type: initial encounter Qualified Code(s): S32.020A - Wedge compression fracture of second lumbar vertebra, initial encounter for closed fracture (3) Malnutrition Status: Acute Qualifiers: Malnutrition type: protein-calorie malnutrition Protein-calorie malnutrition severity: unspecified severity Qualified Code(s): E46 - Unspecified protein-calorie malnutrition (4) HTN (hypertension) Status: Chronic Qualifiers: Hypertension type: essential hypertension Qualified Code(s): I10 - Essential (primary) hypertension Subjective Principal diagnosis: ESRD Interval history: The patient was seen and examined while on hemodialysis. She did not affirm having cramping, nausea, or diarrhea. Objective - Vital Signs Vital signs: Vital Signs Temp Pulse Resp BP Pulse Ox 12/23/18 11:40 107/60 12/23/18 11:25 118/64 12/23/18 11:10 111/61 12/23/18 10:55 115/54 12/23/18 10:40 118/52 12/23/18 10:25 109/64 12/23/18 10:10 103/63 12/23/18 09:55 99/61 12/23/18 09:40 118/66 12/23/18 09:25 116/56 12/23/18 09:10 97.5 F L 16 113/61 12/23/18 07:59 97.6 F 79 16 149/76 100 12/23/18 04:16 97.7 F 75 16 121/66 95 12/22/18 23:00 97.7 F 80 16 145/75 97 12/22/18 20:33 97.6 F 80 18 132/63 99 12/22/18 16:49 97.7 F 85 17 132/67 97 Intake and Output 12/22/18 12/23/18 12/23/18 23:59 07:59 15:59 Intake Total 0 / 640 0 / 1070 1070 / 1070 Output Total 125 / 125 125 / 125 Balance -125 / 515 -125 / 945 1070 / 945 Intake: IV Fluids Rocephin 1,000 MG In Water for inj. (sterile) 10 ML @ 600 mls/ hr IVP DAILY [facility] Rx#:[id number] Oral 0 / 640 0 / 460 460 / 460 Intake, Rinseback and Flushes 600 / 600 Output: Urine 125 / 125 Catheter 125 / 125 Other: Meal Breakfast Percent of Meal Consumed 50% Weight 54.9 kg Blood Glucose* 240 187 Hemodialysis Net Fluid Removed 1749 (mL) Patient Weight 12/23/18 23:59 Weight 54.9 kg - General Appearance Exam: General appearance: Present: cachectic, chronically ill, fatigue, frail EENT: Present: ATNC Respiratory: Present: clear Cardiology: Present: no edema, regular rate, regular rhythm Dialysis Vascular Access: Arteriovenous Fistula (left forearm with +thrill /bruit) Gastrointestinal: Present: normoactive bowel sounds, no guarding Neurologic: Present: no focal deficit, no asterixis Psychiatric: Present: mood/affect appropriate, cooperative Additional Comments: She continues to exhibit mostly happiness but occasional started to cry - Lab 12/23/18 05:24 12/23/18 05:24 Most recent lab results 12/23/18 05:24 Calcium 8.4 L Phosphorus 6.2 H Magnesium 1.9 Consult Discharge Plan - Plan Additional Instructions: 1. Please follow up with your primary care physician within five days after your discharge from the hospital. 2. Please follow up with Dr. Espinosa in one week after your discharge from the hospital. 3. Please continue all your home medications as prescribed by your primary care physician. 4. Please seek medical help if you have chest pain or difficulty breathing. Referrals: Arvind Espinosa DO [Partnered Physician] - 12/30/18 9:00 am Macario Diallo MD [Primary Care Provider] - 12/28/18 2:15 pm
[2018-12-23 13:28] VITALS: BP 117/64
== END 2018-12-23 14:10 | disposition home health service (06) ==
LOC: 2ANU 10:34 → EMEROOARM 10:34 → SUATTDRO 18:37 → 2ANU 19:10
PROVIDERS: ADMIT Internal Medicine Nephrology; ATTEND Internal Medicine

== ENCOUNTER 2019-03-04 12:29 | Inpatient (IN) ==
--- NOTE | 2019-03-04 12:59 | Emergency Department Note ---
Disposition Clinical Impression: ESRD (end stage renal disease), Troponin I above reference range Closed hip fracture Qualifiers: Encounter type: initial encounter Laterality: right Qualified Code(s): S72.001A - Fracture of unspecified part of neck of right femur, initial encounter for closed fracture Disposition: Admitted As Inpatient Condition: Fair Referrals: Macario Diallo MD [Primary Care Provider] - Forms: ED Satisfaction Letter Time of Disposition: 14:55 Fall HPI - General Chief Complaint: ED Fall Stated Complaint: right hip pain Time Seen by Provider: 03/04/19 12:35 Source: patient, EMS Mode of arrival: EMS Limitations: no limitations Nursing Notes Reviewed: Yes Vital Signs Reviewed: Yes - History of Present Illness HPI Narrative: Patient with history of end-stage renal disease on dialysis Thursday, , Thursday presents from home for evaluation of right hip pain after a fall. She describes having generalized malaise with nausea and diarrhea since waking up this morning. She was feeling "a little weak all over" and fell while walking across a carpeted floor. She denies hitting her head, denies loss of consciousness, neck or back injury or pain. She denies paresthesias or weakness in extremities. She complains of pain only in the right hip and repeats frequently, "Nothing else hurts. It is just my hip." She is extremely hard of hearing, but is pleasant and cooperative with the exam. She denies chest pain, shortness of breath, dyspnea on exertion, cough or hemoptysis. Pt Subjective Complaint: fall Onset (ago): hour(s) (around 8:30 this AM) Fall From: standing Fall Witnessed: yes Place Fall Occurred: home Loss of Consciousness: none Prolonged Down Time?: no Symptoms Prior to Fall: other (generalized malaise - "stomach flu or something" per patient) Context: recent illness (Patient describes having nausea and diarrhea since this morning. No melena or hematachezia) Location of injury: hip (right) Location of injury - extremities: Right: hip Severity: severe Quality: sharp, stabbing, aching Associated symptoms (after fall): Reports: unable to walk. Denies: headache, neck pain, numbness, weakness, chest pain, shortness of breath, abdominal pain, hematuria, lightheaded, vertigo, confusion - Related Data Home Medications Medication Instructions Recorded Confirmed Aspirin Enteric Coated [Aspirin EC] 81 mg PO DAILY 08/04/17 12/22/18 Ferrous Sulfate 325 mg PO BIDWM 10/28/17 12/22/18 Insulin ASPART [Novolog Flexpen] 0 unit SQ TID PRN 05/28/18 12/22/18 Isosorbide MONOnitrate (24 HR) 30 mg PO DAILY 05/28/18 12/22/18 [Imdur] Folic Acid/Vit B Complex and C 1 tab PO DAILY 10/22/18 12/22/18 [Dialyvite Tablet] Albuterol Sulfate [Proventil 1 puff IH Q4H PRN 12/22/18 12/22/18 Inhaler] Insulin Glargine,Hum.rec.anlog 10 - 20 unit SQ HS 12/22/18 12/22/18 [Basaglar Kwikpen U-100] Metoprolol [Lopressor] 12.5 mg PO BID 12/22/18 12/22/18 Previous Rx's Medication Instructions Recorded Metoclopramide HCl 5 mg PO BID #60 tablet 11/13/18 Allergies Allergy/AdvReac Type Severity Reaction Status Date / Time Influenza Virus Vaccines Allergy See Verified 07/22/18 11:05 Comments NSAIDS (Non-Steroidal Allergy See Verified 07/22/18 11:05 Anti-Inflamma Comments All systems ED: reviewed and negative except as stated. Review of Systems: As Per HPI Constitutional: Reports: as per HPI, weakness (Generalized this morning). Denies: fever, chills, weight change, night sweats Eyes: Denies: vision change ENT ED: Denies: ear pain, congestion, dysphagia Cardiovascular: Denies: chest pain, palpitations, dyspnea on exertion, orthopnea, edema, syncope Respiratory: Denies: cough, dyspnea, wheezes Gastrointestinal: Reports: as per HPI, nausea, diarrhea. Denies: abdominal pain, vomiting Genitourinary: Reports: other (Decreased urine output). Denies: urgency, dysuria, frequency, hematuria Musculoskeletal: Reports: as per HPI, arthralgia. Denies: back pain, neck pain, joint swelling Integumentary: Denies: abrasion Neurological: Reports: weakness (Unable to move right hip - most likely second to pain). 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 Absent: scleral icterus, conjunctival injection, nystagmus, periorbital swelling - ENT ENT exam: mucous membranes dry - Neck Neck exam: Present: normal inspection, full ROM, trachea midline. Absent: tenderness, meningismus - Chest Chest inspection: Present: normal inspection - Respiratory Respiratory exam: Present: normal lung sounds bilaterally. Absent: respiratory distress, wheezes, stridor - Cardiovascular Cardiovascular exam: Present: regular rate, normal rhythm - Abdominal Exam Abdominal exam: Present: soft, Non-Tender. Absent: distention, guarding, rebound, rigidity, ascites, mass, pulsatile mass - Extremities Exam Extremities exam: Present: normal capillary refill, pedal edema (Mild, symmetric bilaterally). Absent: calf tenderness - Expanded Lower Extremity Exam Hip/Pelvis exam: Present: tenderness, internal rotation, pelvis stable. Absent: full ROM, swelling, ecchymosis, deformity, crepitus, dislocation, erythema, shortening Upper leg exam: Absent: tenderness, swelling, ecchymosis, crepitus, dislocation, erythema Knee exam: Present: normal inspection, knee extension intact. Absent: full ROM (Right is limited due to pain in the right hip), tenderness, swelling, ecchymosis, deformity, crepitus, dislocation, erythema Lower leg exam: Present: abrasion (Right platt, superficial. No foreign body. No bleeding), Achilles tendon intact. Absent: tenderness, ecchymosis, deformity, crepitus Ankle exam: Present: normal inspection, full ROM, swelling (Mild bilateral sym metric), ecchymosis (Right distal nontender). Absent: tenderness, deformity, crepitus, dislocation, erythema, tenderness over talofibular lig Foot/toe exam: Present: normal inspection, swelling. Absent: tenderness, ecchymosis, deformity, crepitus, erythema, calcaneal tenderness, tenderness at base of 5th metatarsal Neurovascular/Tendon exam: Present: normal capillary refill, normal fine/light touch, significant pain with passive ROM of distal joint (Right hip). Absent: pulse deficit, motor deficit, sensory deficit, tendon deficit, extremity cold to touch, pallor, foot drop Gait: not tested/not observed - Back Exam Back exam: Present: normal inspection. Absent: tenderness, CVA tenderness (R), CVA tenderness (L), muscle spasm, paraspinal tenderness, vertebral tenderness, rashes, sciatic notch tenderness (R), sciatic notch tenderness (L) - Neurological Exam Neurological exam: Present: alert, oriented X3. Absent: motor sensory deficit - Psychiatric Psychiatric exam: Present: normal affect, normal mood - Skin Skin exam: Present: warm, dry, intact, normal color Course Course Narrative: Patient was brought by squad to the ED for evaluation of right hip pain after a fall. She has had generalized malaise with nausea and diarrhea since this morning. She was feeling a little weak tripped and fell and landed on her right hip. She denies head neck or back injury or pain. The paresthesias in the extremities. On exam, the hip is internally rotated. She is laying on her left side and is unwilling to roll onto her back. She refuses straight catheter or Madden placement. She was also on willing to lie supine for EKG. After pain medication. She was a little more comfortable and was able to lie mostly supine for the EKG. This shows a sinus rhythm, rate of 83 with intraventricular conduction delay, mild ST depression in V5 and V6 which is new compared to January of this year. Chest x-ray was done with patient lying on her left side. This limited study was read by the radiologist as deep and a hazy opacities in the left lung which could represent layering effusion, atelectasis or possible infection. Patient denies chest pain, shortness of breath, cough, hemoptysis, fever, chills. I think pneumonia is unlikely considering lack of clinical signs or symptoms. Labs and hip x-ray pending. Hip x-ray also limited due to patient positioning shows a likely femoral neck fracture. Patient's CBC is essentially normal with the exception of mild anemia. Renal panel shows that her creatinine is 6.5, slightly higher than usual, and troponin is elevated at 0.09. She states that she did not miss dialysis on . She has had decreased urine output today. Suspect dehydration second to the diarrhea. Patient will require admission for further evaluation and treatment of the hip fracture. Ortho has been paged. Case discussed with Dr. Godfrey. He has had [id number] time with the patient has reviewed the EKG and lab findings as well as the x-ray findings. He agrees with the assessment and plan. Case discussed with Dr. Winkler. He requests CT of the hip, given the limitations of the plain films. Case discussed with the hospitalist. Patient has been accepted. - Consultations Consultation #1: Case discussed with Dr. Gonzáles. He requests CT for further evaluation but states that the hip will most likely require surgery once patient is stable for surgery. Consultation #2: Case discussed with Dr. Gutierrez. He states that in a patient with end-stage renal disease and a creatinine this elevated, it is not unlikely to have a troponin of 0.09. Even with minor EKG changes, it is unlikely that this is related to ACS. Especially given the lack of chest pain or dyspnea. He is happy to consult if the hospitalist requests, but states that the patient most likely just needs to have enzymes repeated Vital Signs Temperature 97.9 F 03/04/19 12:39 Pulse Rate 93 03/04/19 12:39 Respiratory Rate 16 03/04/19 12:39 Blood Pressure 97/61 03/04/19 12:39 O2 Sat by Pulse Oximetry 95 03/04/19 12:39 Temperature 97.9 F 03/04/19 12:39 Pulse Rate 83 03/04/19 14:35 Respiratory Rate 16 03/04/19 12:39 Blood Pressure 97/61 03/04/19 12:39 O2 Sat by Pulse Oximetry 100 03/04/19 14:35 Oxygen Delivery Oxygen Delivery Room Air Fall - Lab Data Result diagrams: 03/04/19 12:38 03/04/19 12:38 Lab Results 03/04/19 03/04/19 03/04/19 Range/Units 12:38 12:38 12:38 WBC 8.6 (4.3-11.1) K/mcL RBC 3.69 L (3.82-4.97) M/mcL Hgb 11.1 L (11.5-15.4) g/dL Hct 34.5 L (35.3-44.9) % MCV 93.5 (83.0-100.0) fL MCH 30.1 (28.0-33.3) pg MCHC 32.2 (31.6-35.5) g/dL RDW 14.1 (11.5-14.5) % Plt Count 162 (140-400) K/mcL MPV 9.6 (9.4-12.4) fL Immature Gran % 0.6 (0-4) % Seg Neutrophils % 81.8 % Lymphocytes % 11.1 % Monocytes % 5.5 % Eosinophils % 0.9 % Basophils % 0.1 % Neutrophils # 7.0 (1.6-8.9) K/mcL Lymphocytes # 1.0 (0.6-4.6) K/mcL Monocytes # 0.5 (0.0-1.3) K/mcL Eosinophils # 0.1 (0.0-0.6) K/mcL Basophils # 0.0 (0.0-0.2) K/mcL PT 11.6 (9.4-12.1) Seconds INR 1.0 APTT 33.2 (26.0-36.0) Seconds Sodium 136 (136-145) mEq/L Potassium 4.2 (3.5-5.1) mEq/L Chloride 96 L (98-107) mEq/L Carbon Dioxide 23 (23-29) mEq/L BUN 72 H (8-23) mg/dL Creatinine 6.40 H (0.60-1.20) mg/dL Est GFR ( Amer) 8 L (> 60) Est GFR (Non-Af Amer) 6 L (> 60) BUN/Creatinine Ratio 11 (6-26) Glucose 166 H (70-105) mg/dL Calculated Osmolality 307 H (280-300) Calcium 8.1 L (8.6-10.3) mg/dL Troponin I 0.09 H* (< 0.04) ng/mL
[2019-03-04 13:04] LABS: Basophils % 0.1 %; Eosinophils # 0.1 K/mcL (0.0-0.6); Eosinophils % 0.9 %; Hematocrit 34.5 % (35.3-44.9); Hemoglobin 11.1 g/dL (11.5-15.4); Immature Granulocytes % 0.6 % (0-4); Lymphocytes % 11.1 %; Mean Corpuscular HGB Conc 32.2 g/dL (31.6-35.5); Mean Corpuscular Hemoglobin 30.1 pg (28.0-33.3); Mean Corpuscular Volume 93.5 fL (83.0-100.0); Mean Platelet Volume 9.6 fL (9.4-12.4); Monocytes # 0.5 K/mcL (0.0-1.3); Monocytes % 5.5 %; Platelet Count 162 K/mcL (140-400); Red Blood Count 3.69 M/mcL (3.82-4.97); Red Cell Distribution Width 14.1 % (11.5-14.5); Segmented Neutrophils % 81.8 %; White Blood Count 8.6 K/mcL (4.3-11.1)
[2019-03-04 13:07] LABS: Prothrombin Time 11.6 Seconds (9.4-12.1)
[2019-03-04] MEDS ORDERED: 0.9 % Sodium Chloride 500 ML IVC ONE (13:07)
[2019-03-04] MEDS ORDERED: Morphine Sulfate 2 MG/ML SYRINGE IVP ONE (13:08)
[2019-03-04] MEDS ORDERED: Ondansetron 4 MG/2 ML VIAL IVP ONE (13:08)
[2019-03-04 13:10] LABS: Activated Partial Thrombo Time 33.2 Seconds (26.0-36.0)
[2019-03-04 13:19] LABS: Calcium 8.1 mg/dL (8.6-10.3); Potassium 4.2 mEq/L (3.5-5.1)
[2019-03-04 13:24] LABS: Troponin I 0.09 ng/mL (< 0.04)
--- NOTE | 2019-03-04 14:22 | Emergency Department Note ---
Disposition Clinical Impression: ESRD (end stage renal disease), Troponin I above reference range Closed hip fracture Qualifiers: Encounter type: initial encounter Laterality: right Qualified Code(s): S72.001A - Fracture of unspecified part of neck of right femur, initial encounter for closed fracture Disposition: Admitted As Inpatient Condition: Fair Time of Disposition: 16:23 General Adult HPI - General Chief complaint: ED Fall Stated complaint: right hip pain Time Seen by Provider: 03/04/19 12:35 Source: patient, EMS Limitations: no limitations Nursing Notes Reviewed: Yes Vital Signs Reviewed: Yes - History of Present Illness Pain Scale: 10 - Related Data Home Medications Medication Instructions Recorded Confirmed Aspirin Enteric Coated [Aspirin EC] 81 mg PO DAILY 08/04/17 12/22/18 Ferrous Sulfate 325 mg PO BIDWM 10/28/17 12/22/18 Insulin ASPART [Novolog Flexpen] 0 unit SQ TID PRN 05/28/18 12/22/18 Isosorbide MONOnitrate (24 HR) 30 mg PO DAILY 05/28/18 12/22/18 [Imdur] Folic Acid/Vit B Complex and C 1 tab PO DAILY 10/22/18 12/22/18 [Dialyvite Tablet] Albuterol Sulfate [Proventil 1 puff IH Q4H PRN 12/22/18 12/22/18 Inhaler] Insulin Glargine,Hum.rec.anlog 10 - 20 unit SQ HS 12/22/18 12/22/18 [Basaglar Kwikpen U-100] Metoprolol [Lopressor] 12.5 mg PO BID 12/22/18 12/22/18 Previous Rx's Medication Instructions Recorded Metoclopramide HCl 5 mg PO BID #60 tablet 11/13/18 Allergies Allergy/AdvReac Type Severity Reaction Status Date / Time Influenza Virus Vaccines Allergy See Verified 07/22/18 11:05 Comments NSAIDS (Non-Steroidal Allergy See Verified 07/22/18 11:05 Anti-Inflamma Comments Past Medical History - Past Medical History Medical history: Reports: arthritis, diabetes, dialysis, GERD, hyperlipidemia, hypertension, renal disease, other Surgical history: Reports: appendectomy, cholecystectomy, hysterectomy Psychiatric history: Reports: anxiety, depression 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 - Social History Smoking Status: Former smoker Smokeless Tobacco Status: No Alcohol use: Reports: none Drug use: Reports: none Physical Exam - General Limitations: no limitations General appearance: alert, in no apparent distress Course Vital Signs Temperature 97.9 F 03/04/19 12:39 Pulse Rate 93 03/04/19 12:39 Respiratory Rate 16 03/04/19 12:39 Blood Pressure 97/61 03/04/19 12:39 O2 Sat by Pulse Oximetry 95 03/04/19 12:39 Temperature 97.9 F 03/04/19 12:39 Pulse Rate 83 03/04/19 14:35 Respiratory Rate 16 03/04/19 12:39 Blood Pressure 97/61 03/04/19 12:39 O2 Sat by Pulse Oximetry 100 03/04/19 14:35 Oxygen Delivery Oxygen Delivery Room Air Medical Decision Making - [facility] Narrative Medical decision making narrative: Chest X-Ray 03/04/19 12:38 IMPRESSION: Images obtained in the left lateral decubitus position. There are dependent hazy opacities in the left lung which could represent a layering pleural effusion, atelectasis, and/or infection. D/ / Jamie Darden / Jamie Darden Interpreting Provider: Jamie Darden Hip X-Ray 03/04/19 12:38 IMPRESSION: Acute fracture of the proximal right femur with varus angulation. The fracture appears to be in the femoral neck near the trochanters. D/ / Gregor Hernandez MD / Gregor Hernandez MD Interpreting Provider: Gregor Hernandez MD 1422 hrs. She does have the hip fracture is noted on the right. She has an lynn vated troponin denies any chest pain she does have chronic kidney disease but this is the highest creatinine she has had. Rest speak with forth below. And then I will talk with nephrology and cardiology also with admission to hospitalist. - Lab Data Result diagrams: 03/04/19 12:38 03/04/19 12:38 Lab Results 03/04/19 03/04/19 03/04/19 Range/Units 12:38 12:38 12:38 WBC 8.6 (4.3-11.1) K/mcL RBC 3.69 L (3.82-4.97) M/mcL Hgb 11.1 L (11.5-15.4) g/dL Hct 34.5 L (35.3-44.9) % MCV 93.5 (83.0-100.0) fL MCH 30.1 (28.0-33.3) pg MCHC 32.2 (31.6-35.5) g/dL RDW 14.1 (11.5-14.5) % Plt Count 162 (140-400) K/mcL MPV 9.6 (9.4-12.4) fL Immature Gran % 0.6 (0-4) % Seg Neutrophils % 81.8 % Lymphocytes % 11.1 % Monocytes % 5.5 % Eosinophils % 0.9 % Basophils % 0.1 % Neutrophils # 7.0 (1.6-8.9) K/mcL Lymphocytes # 1.0 (0.6-4.6) K/mcL Monocytes # 0.5 (0.0-1.3) K/mcL Eosinophils # 0.1 (0.0-0.6) K/mcL Basophils # 0.0 (0.0-0.2) K/mcL PT 11.6 (9.4-12.1) Seconds INR 1.0 APTT 33.2 (26.0-36.0) Seconds Sodium 136 (136-145) mEq/L Potassium 4.2 (3.5-5.1) mEq/L Chloride 96 L (98-107) mEq/L Carbon Dioxide 23 (23-29) mEq/L BUN 72 H (8-23) mg/dL Creatinine 6.40 H (0.60-1.20) mg/dL Est GFR ( Amer) 8 L (> 60) Est GFR (Non-Af Amer) 6 L (> 60) BUN/Creatinine Ratio 11 (6-26) Glucose 166 H (70-105) mg/dL Calculated Osmolality 307 H (280-300) Calcium 8.1 L (8.6-10.3) mg/dL Troponin I 0.09 H* (< 0.04) ng/mL Attestation Statement - Attestation Attestation: This documentation is done with the assistance of Amyon dictation. Despite efforts made to ensure accuracy, there may be inaccuracies in county auditor or spelling and typographical errors. I have personally performed a face to face evaluation on this patient. I have reviewed and agree with the care plan. History and Exam by me shows: Patient seen and evaluated by Nimisha Metz and myself, I agree with her evaluation and management plan. Patient had a mechanical fall at home she does have a shortened rotated hip. She denies any other injuries. Denies any chest pain. We will do x-rays as I am certain that she has a hip fracture and also pre- surgical labs. She is in agreement with plan she will need admission.
[2019-03-04] MEDS ORDERED: Acetaminophen 325 MG TABLET PO PRN (16:00)
[2019-03-04] MEDS ORDERED: *HR* OxyCODONE Immed Rel 5 MG TABLET PO PRN (16:00)
[2019-03-04] MEDS ORDERED: Naloxone 0.4 MG/ML INJ IVP PRN (16:00)
[2019-03-04] MEDS ORDERED: Ondansetron 4 MG/2 ML VIAL IVP PRN (16:07)
--- NOTE | 2019-03-04 16:10 | Internal Med History&Physical ---
Date of Encounter: 03/04/19 Time of Encounter: 16:00 Internal Medicine - H&P: HPI Chief complaint: FAll, hip fracture Admitted From: Emergency Dept Plans for Post Hospital Care: Transfer Assisted Facility History of present illness: Ms. Lacy is a 73 year old female with a past medical history significant for hypertension, diabetes mellitus, was brought to the emergency after a fall leading to severe right hip pain. Patient mentioned that she has been having nausea and diarrhea for the last 2 days, she was feeling weak today in the morning, since she fell while she was walking. Patient denies hitting her head, loss of consciousness, back or neck pain. Patient endorses pain in the right hip. Pain is Severe, sharp, aggravated with movement, no relieving factors, nonradiating. Patient mentioned that she never had anything like this before. Patient denies chest pain, shortness of breath, dyspnea on exertion, cough, hematemesis, hematochezia, fever, chills. Patient is hemodynamically stable. Laboratory workup showed hemoglobin of 11.1, creatinine of 6.4, potassium of 4.2, troponin of 0.09. X-ray of the hip was concerning for fracture. CT scan of the hip showed acute traumatic mildly comminuted and impacted right femur intertrochanteric fracture with apex superolateral angulation. Mild degree of associated soft tissue swelling and subcutaneous edema about the right hip. Patient EKG showed ST depression in V5 and V6 which were new, cardiolgoy was called in the ED who recommended to tred the troponins as the pt was asymtomatic. Patient is admitted for further management. Past Med Surg Social Fam HX - Past Medical History Medical history: arthritis, diabetes, dialysis, GERD, hyperlipidemia, hyp ertension, renal disease, other Additional medical history: cdiff. parkinsons Psychiatric history: anxiety, depression - Past Surgical History Surgical History: appendectomy, cholecystectomy, hysterectomy Additional surgical history: Dialysis catheter. right foot - Social History Smoking Status: Former smoker Smokeless Tobacco Status: No Alcohol use: none Drug use: none - Family History Mother Living Status: Hx Family Cardiac Disorders: Yes Father Living Status: Hx Family Cardiac Disorders: Yes Sister Hx Family Cardiac Disorders: No Hx Family Respiratory Disorders: No Hx Family Cancer: No Hx Family GI Disorders: No Hx Family Endocrine Disorder: Yes Hx Family Neuromuscular Disorders: No Hx Family Neurologic Disorders: No Hx Family HEENT Disorders: No Hx Family Autoimmune Disorders: No Internal Medicine - H&P: Meds Aspirin Enteric Coated [Aspirin EC] 81 mg PO DAILY 08/04/17 [History] Ferrous Sulfate 325 mg PO BIDWM 10/28/17 [History] Insulin ASPART [Novolog Flexpen] 0 unit SQ TID PRN 05/28/18 [History] Isosorbide MONOnitrate (24 HR) [Imdur] 30 mg PO DAILY 05/28/18 [History] Folic Acid/Vit B Complex and C [Dialyvite Tablet] 1 tab PO DAILY 10/22/18 [History] Metoclopramide HCl 5 mg PO BID #60 tablet 11/13/18 [Rx] Albuterol Sulfate [Proventil Inhaler] 1 puff IH Q4H PRN 12/22/18 [History] Insulin Glargine,Hum.rec.anlog [Basaglar Kwikpen U-100] 10 - 20 unit SQ HS 12/22/18 [History] Metoprolol [Lopressor] 12.5 mg PO BID 12/22/18 [History] Allergy/AdvReac Type Severity Reaction Status Date / Time Influenza Virus Vaccines Allergy See Verified 07/22/18 11:05 Comments NSAIDS (Non-Steroidal Allergy See Verified 07/22/18 11:05 Anti-Inflamma Comments All Systems PM: A 10-system review of systems was performed and is negative for pertinent findings except as documented above in the HPI. Review of systems: General: Negative for fever, chills, rigors. HEENT: Negative for swelling, discharge from nose, discharge from ears. EYES: Negative for any discharge from the eyes. Respiratory: Negative for shortness of breath, orthopnea, exertional dyspnea. Cardiovascular: Negative for chest pain, shortness of breath, orthopnea, PND. Gastrintestical: See HPI. Genitourinary: Negative for dysuria, hematuria, nocturia, increased frequency of urine. Hematological: Negative for blood loss, negative for active cancer. Neurological: Negative for headache, dizziness, blurry vision, loss os power and sensations. Endocrinology: Negative for constipation, polyuria, polydipsia. Psychiatric: Negative for anxiety or depression. - Constitutional Vitals: Temp Pulse Resp BP Pulse Ox 97.9 F 83 16 97/61 100 03/04/19 12:39 03/04/19 14:35 03/04/19 12:39 03/04/19 12:39 03/04/19 14:35 Exam: General: Alert and oriented, no physical distress, able to follow commands. HEENT: No thyromegaly, no lymphadenopathy, no discharge. Eyes: No discharge. Respiratory: Normal vesicular breathing, no added sounds, breathing equal in bot h sides. CVS: Normal heart sounds, no murmurs, no edema. Extremities: No peripheral edema, peripheral pulses intact. MUsculoskeletal: PAin and tendernes on the palpation of the lateral aspect of the right hip, ROM limited due to pain. Peripheral pusles intact, sensations and motor exam normal in the both lower extemities. Lymph nodes: No lymphadenopathy Gastrointestinal: Soft, nontender abdomen, normal abdominal sounds. No distention noted. Genitourinary: No paravertebral tenderness. Neurological: Alert and oriented. No focal deficits. Cranial nerves II-XII intact. Internal Med - H&P Results - Labs CBC & Chem 7: 03/04/19 12:38 03/04/19 12:38 Labs: Short CBC 03/04/19 Range/Units 12:38 WBC 8.6 (4.3-11.1) K/mcL Hgb 11.1 L (11.5-15.4) g/dL Hct 34.5 L (35.3-44.9) % Plt Count 162 (140-400) K/mcL Neutrophils # 7.0 (1.6-8.9) K/mcL BMP 03/04/19 12:38 Sodium 136 Potassium 4.2 Chloride 96 L Carbon Dioxide 23 BUN 72 H Creatinine 6.40 H Glucose 166 H Calcium 8.1 L Cardiac Enzymes 03/04/19 Range/Units 12:38 Troponin I 0.09 H* (< 0.04) ng/mL - Impressions ITS Impressions Chest X-Ray 03/04/19 12:38 IMPRESSION: Images obtained in the left lateral decubitus position. There are dependent hazy opacities in the left lung which could represent a layering pleural effusion, atelectasis, and/or infection. D/ / Jamie Darden / Jamie Darden Interpreting Provider: Jamie Darden Hip X-Ray 03/04/19 12:38 IMPRESSION: Acute fracture of the proximal right femur with varus angulation. The fracture appears to be in the femoral neck near the trochanters. D/ / Gregor Hernandez MD / Gregor Hernandez MD Interpreting Provider: Gregor Hernandez MD Hip CT 03/04/19 14:33 IMPRESSION: Acute traumatic mildly comminuted and impacted right femur intertrochanteric fracture with apex superolateral angulation. Mild degree of associated soft tissue swelling and subcutaneous edema about the right hip. D/ / 03/04/2019 15:09:13 Arvind Douglas MD / brett Interpreting Provider: Arvind Douglas MD - Assessment and Plan (1) Intertrochanteric fracture of right femur Current Visit: Yes Status: Acute Assessment and plan: -CT scan consistent wih the fracture. -Ortho on board -Will keep the pt NPO after midnight in anticipation of the procedure. -Pain control -Hip immobilization -SubQ heaprin for DVT prophylasix Qualifiers: Encounter type: initial encounter Fracture type: closed Fracture alignment: nondisplaced Qualified Code(s): S72.144A - Nondisplaced intertrochanteric fracture of right femur, initial encounter for closed fracture (2) Fall Current Visit: Yes Status: Acute Assessment and plan: -Likely mechanical 2/2 weakness -PT/OT once post surgery Qualifiers: Encounter type: initial encounter Qualified Code(s): W19.XXXA - Unspecified fall, initial encounter (3) ESRD (end stage renal disease) Current Visit: Yes Status: Chronic Assessment and plan: -ESRD on TTS schedule -Nephrology consulted -No need for urgent dialsis today (4) Abnormal EKG Current Visit: No Status: Acute Assessment and plan: -ST depression appreciated in V5 and V6. -Etiolgoy unclear -No chest pain. -Has nausea and vomiting but also has diarrhea. -Will trend tge troponins now (5) Acute gastroenteritis Current Visit: No Status: Acute Assessment and plan: -Likely viral as the pt started having symptoms yesterday nad also has flu like symtpoms -Symtomatic managemnt -Does not look dehydrated -Was given IV fludis in the ED> -Appreciate oral intake -Zofran for the nausea -Hold off on IV fludis -If needed, can be given but seems euvolemic (6) HTN (hypertension) Current Visit: No Status: Chronic Assessment and plan: -BP slighly on the lower end of normal -Will hold antihypertensives fir now, resume once BP is better Qualifiers: Hypertension type: essential hypertension Qualified Code(s): I10 - Essential (primary) hypertension (7) T2DM (type 2 diabetes mellitus) Current Visit: No Status: Chronic Assessment and plan: -Wll sart on LDSS for now Qualifiers: Diabetes mellitus salvage determiner insulin use: with salvage determiner use Diabetes mellitus complication status: with other specified complication Qualified Code(s): E11.69 - Type 2 diabetes mellitus with other specified complication; Z79.4 - senior care (current) use of insulin (8) Anemia Current Visit: No Status: Chronic Assessment and plan: -Due to CKD-No signs of active bleding Qualifiers: Anemia type: due to chronic kidney disease Chronic kidney disease stage: stage 5, not on chronic dialysis Qualified Code(s): N18.5 - Chronic kidney disease, stage 5; D63.1 - Anemia in chronic kidney disease (9) Troponin I above reference range Current Visit: Yes Status: Acute Assessment and plan: -Likely in context of ESRD -ED discussed with the cardiolgoy who recommended to tend considering EKG Changes, so we will continue to trend -IF stable, no plan for further worup -If continues to rise significnalty, mayy consider type I and treat like that. Cardiolgoy is not consulted yet, depending on further levels, we will consult if needed (10) Diarrhea Current Visit: No Status: Resolved Assessment and plan: -Etiolgoy unclear -Likley viral gastroenteritis -R/O C. DIff Qualifiers: Diarrhea type: unspecified type Qualified Code(s): R19.7 - Diarrhea, unspecified - Time Spent With Patient Total time spent is greater than 50% in coordination of care (as documented) at patient's floor/unit and/or counseling patient:
[2019-03-04] MEDS ORDERED: D5% in Water 1,000 ML IVC PRN (16:52)
[2019-03-04] MEDS ORDERED: *HR* Dextrose 50 % in Water (Syg) 50 ML SYRINGE IVP PRN (16:52)
[2019-03-04] MEDS ORDERED: Dextrose Gel 15 GM/37.5 ML TUBE PO PRN ×2 (16:52)
[2019-03-04] MEDS: Insulin LISPRO 300 UNITS/3 ML VIAL SQ SCH ×2 (17:28→20:49)
[2019-03-04] MEDS: *HR* Heparin 5,000 UNIT/ML VIAL SQ SCH (17:31)
[2019-03-04 18:48] LABS: Hepatitis B Surface Antibody < 3.10 mIU/mL
[2019-03-04 19:00] LABS: Hepatitis B Surface Antigen Nonreactive (Nonreactive)
[2019-03-05] MEDS: *HR* HYDROcodone/Acet 5/325 mg TABLET PO PRN ×2 (04:53→18:07)
[2019-03-05] MEDS: *HR* Heparin 5,000 UNIT/ML VIAL SQ SCH ×2 (04:54→17:08)
[2019-03-05] MEDS: Insulin LISPRO 300 UNITS/3 ML VIAL SQ SCH ×4 (08:44→20:32)
[2019-03-05] MEDS ORDERED: 0.9 % Sodium Chloride 250 ML IVC PRN (09:00)
[2019-03-05] MEDS ORDERED: *HR* Heparin 10,000 UNIT/10 ML VIAL IV PRN (09:00)
[2019-03-05] MEDS ORDERED: 0.9 % Sodium Chloride 1,000 ML PRIME SCH (09:00)
[2019-03-05 09:19] LABS: Basophils % 0.3 %; Eosinophils # 0.2 K/mcL (0.0-0.6); Eosinophils % 2.8 %; Hematocrit 29.9 % (35.3-44.9); Immature Granulocytes % 0.4 % (0-4); Lymphocytes # 1.7 K/mcL (0.6-4.6); Lymphocytes % 21.9 %; Mean Corpuscular HGB Conc 31.4 g/dL (31.6-35.5); Mean Corpuscular Hemoglobin 30.1 pg (28.0-33.3); Mean Corpuscular Volume 95.8 fL (83.0-100.0); Mean Platelet Volume 9.7 fL (9.4-12.4); Monocytes # 0.5 K/mcL (0.0-1.3); Monocytes % 6.7 %; Neutrophils # 5.2 K/mcL (1.6-8.9); Platelet Count 125 K/mcL (140-400); Red Blood Count 3.12 M/mcL (3.82-4.97); Red Cell Distribution Width 14.3 % (11.5-14.5); Segmented Neutrophils % 67.9 %; White Blood Count 7.6 K/mcL (4.3-11.1)
[2019-03-05 09:20] LABS: Hemoglobin 9.4 g/dL (11.5-15.4)
[2019-03-05 09:33] LABS: Calcium 7.4 mg/dL (8.6-10.3); Magnesium 1.9 mg/dL (1.6-2.6); Phosphorous 6.5 mg/dL (2.7-4.5); Potassium 4.6 mEq/L (3.5-5.1)
--- NOTE | 2019-03-05 10:23 | Cardiology Consult Note ---
Date of Encounter: 03/05/19 Time of Encounter: 10:18 Assessment and Plan (1) Preop cardiovascular exam Current Visit: Yes Status: Acute Patient is an elderly female with known severe CAD, not amenable to revascularization, with an associated ischemic cardio myopathy. Currently, she appears to be euvolemic on examination and denies chest pain. Her functional status is generally reduced, but denies chest pain with recent level of activity. Given her somewhat reduced functional status and known severe CAD/ischemic cardiomyopathy, she is high risk for this orthopedic surgery. This was discussed with patient. She voiced understanding, wishes to proceed. All questions answered. (2) CAD (coronary artery disease) Current Visit: Yes Status: Acute Qualifiers: Coronary Disease-Associated Artery/Lesion type: [place] artery [place] vs. tr ansplanted heart: [place] heart Associated angina: without angina Qualified Code(s): I25.10 - Atherosclerotic heart disease of [place] coronary artery without angina pectoris (3) Ischemic cardiomyopathy Current Visit: Yes Status: Acute Severe CAD, previously deemed not amenable to revascularization. Resultant ischemic cardiomyopathy. ECG reviewed, no significant changes compared to previous. Recommend resuming home aspirin 81 mg daily, metoprolol 12.5 mg twice daily, and isosorbide 30 mg daily. Cholesterol well controlled on last check. Recommend very low dose statin prior to discharge for CAD. Pending response to resuming medications, recommend addition of a low-dose COLLETTE inhibitor prior to discharge. CHF education provided. Recommend outpatient cardiology follow-up upon discharge. No further inpatient cardiac recommendations appear to be necessary at this time. Discussion w patient/family: The assessment and plan as outlined above was discussed with the patient and/or family members who expressed understanding and agreement. All questions were answered. Thank you for involving us in the care of your patient. Please call with any questions. History of Present Illness Consult date: 03/05/19 Requesting physician: Idalia Schofield Consult reason: Preop Chief complaint: Preop History of present illness: Ms. Lacy is a 73 year old female with a known history of severe CAD. She underwent a left heart catheterization in 04/2018, which demonstrate severe CAD. She was transferred to [facility] for surgical evaluation, medical therapy recommended. Presented after a fall. Patient is very hard of hearing. She denies any chest pain or discomfort. She does complain of hip pain. Preoperative cardiovascular evaluation requested. Patient admits to general inactivity, but denies chest discomfort with current level of activity. Mild troponin elevation noted. Previous testing: [facility] 04/12/2018: Distal left main 65% stenosis. LAD mid 65% stenosis. Proximal circumflex 90% stenosis. OM1 95% stenosis. Proximal RCA 60% stenosis. Mid RCA 99% stenosis. Iuia-tv-[id number] collaterals. CABG recommended. [facility]TE 04/08/2018: LVEF 35-40%. Severe global and segmental LV systolic dysfunction. Moderate RV hypokinesis. Moderately dilated left atrium. Bowels not assessed on this limited study. Past Med Surg Social Fam HX - Past Medical History Medical history: arthritis, diabetes, dialysis, GERD, hyperlipidemia, hypertension, renal disease, other Additional medical history: cdiff. parkinsons Psychiatric history: anxiety, depression - Past Surgical History Surgical History: appendectomy, cholecystectomy, hysterectomy Additional surgical history: Dialysis catheter. right foot - Social History Smoking Status: Former smoker Smokeless Tobacco Status: No Alcohol use: none Drug use: none - Family History Mother Living Status: Hx Family Cardiac Disorders: Yes Father Living Status: Hx Family Cardiac Disorders: Yes Sister Hx Family Cardiac Disorders: No Hx Family Respiratory Disorders: No Hx Family Cancer: No Hx Family GI Disorders: No Hx Family Endocrine Disorder: Yes Hx Family Neuromuscular Disorders: No Hx Family Neurologic Disorders: No Hx Family HEENT Disorders: No Hx Family Autoimmune Disorders: No Medications and Allergies Aspirin Enteric Coated [Aspirin EC] 81 mg PO DAILY 08/04/17 [History] Ferrous Sulfate 325 mg PO BIDWM 10/28/17 [History] Insulin ASPART [Novolog Flexpen] 0 unit SQ TID PRN 05/28/18 [History] Isosorbide MONOnitrate (24 HR) [Imdur] 30 mg PO DAILY 05/28/18 [History] Folic Acid/Vit B Complex and C [Dialyvite Tablet] 1 tab PO DAILY 10/22/18 [History] Metoclopramide HCl 5 mg PO BID #60 tablet 11/13/18 [Rx] Albuterol Sulfate [Proventil Inhaler] 1 puff IH Q4H PRN 12/22/18 [History] Insulin Glargine,Hum.rec.anlog [Basaglar Kwikpen U-100] 10 - 20 unit SQ HS 12/22/18 [History] Metoprolol [Lopressor] 12.5 mg PO BID 12/22/18 [History] Allergy/AdvReac Type Severity Reaction Status Date / Time Influenza Virus Vaccines Allergy See Verified 07/22/18 11:05 Comments NSAIDS (Non-Steroidal Allergy See Verified 07/22/18 11:05 Anti-Inflamma Comments All Systems Review: The remainder of the systems were reviewed and are negative - Cardiovascular Cardiovascular: as per HPI Physical Examination Vital Signs, Last 4 Hours Temp Pulse Resp BP Pulse Ox 03/05/19 08:48 98.6 F 76 18 95/57 95 General: Conversant, No Apparent Distress HEENT: Atraumatic, Normocephaly, Mucus Membranes Moist, Other (Part of hearing) Neck: No JVD Cardiac: Reg Rate and Rhythm, Normal S1 and S2, No Murmur Lungs: Normal Breath Sounds, No Wheeze, Rales, Rhonchi Neuro: Alert and responsive, No focal deficits noted Abdomen: Soft, Non-Tender Skin: No rashes noted on visualized skin Musculoskeletal: No Chest Wall Tenderness Extremities: No Clubbing, No Cyanosis, No Edema Results 03/05/19 08:51 03/05/19 08:51 Lab Results 03/04/19 03/04/19 03/04/19 12:38 12:38 12:38 WBC 8.6 Hgb 11.1 L Hct 34.5 L Plt Count 162 INR 1.0 APTT 33.2 Sodium 136 Potassium 4.2 Chloride 96 L Carbon Dioxide 23 BUN 72 H Creatinine 6.40 H Glucose 166 H Calcium 8.1 L Magnesium Troponin I 0.09 H* 03/04/19 03/05/19 03/05/19 16:15 08:51 08:51 WBC 7.6 Hgb 9.4 L D Hct 29.9 L Plt Count 125 L INR APTT Sodium 136 Potassium 4.6 Chloride 101 Carbon Dioxide 18 L BUN 78 H Creatinine 6.94 H Glucose 93 Calcium 7.4 L Magnesium 1.9 Troponin I 0.08 H* 03/05/19 08:51 WBC Hgb Hct Plt Count INR APTT Sodium Potassium Chloride Carbon Dioxide BUN Creatinine Glucose Calcium Magnesium Troponin I 0.12 H* - Imaging and Cardiology Echo: report reviewed Cardiac cath: report reviewed - EKG Interpretation EKG results cardiology: personally reviewed Consult Discharge Plan - Plan Referrals: Macario Diallo MD [Primary Care Provider] -
--- NOTE | 2019-03-05 13:08 | Nephrology Consult Note ---
Date of Encounter: 03/05/19 Time of Encounter: 13:08 Assessment and Plan (1) ESRD (end stage renal disease) Current Visit: Yes Status: Chronic HD TRS. Renal vitamins. Renal dose medications. Renal diet. Additional dialysis and ultrafiltration as needed. Patient seen on dialysis. (2) Closed hip fracture Current Visit: Yes Status: Acute Qualifiers: Encounter type: initial encounter Laterality: right Qualified Code(s): S72.001A - Fracture of unspecified part of neck of right femur, initial encounter for closed fracture (3) Fall Current Visit: Yes Status: Acute Qualifiers: Encounter type: initial encounter Qualified Code(s): W19.XXXA - Unspecified fall, initial encounter (4) HTN (hypertension) Current Visit: Yes Status: Chronic Qualifiers: Hypertension type: essential hypertension Qualified Code(s): I10 - Essential (primary) hypertension (5) T2DM (type 2 diabetes mellitus) Current Visit: Yes Status: Chronic Qualifiers: Diabetes mellitus half-way insulin 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 Lacy is a 73 yo woman well known to the nephrology service who presents for hip pain and was found to have a broken hip. Past Med Surg Social Fam HX - Past Medical History Medical history: arthritis, diabetes, dialysis, GERD, hyperlipidemia, hypertension, renal disease, other Additional medical history: cdiff. parkinsons Psychiatric history: anxiety, depression - Past Surgical History Surgical History: appendectomy, cholecystectomy, hysterectomy Additional surgical history: Dialysis catheter. right foot - Social History Smoking Status: Former smoker Smokeless Tobacco Status: No Alcohol use: none Drug use: none - Family History Mother Living Status: Hx Family Cardiac Disorders: Yes Father Living Status: Hx Family Cardiac Disorders: Yes Sister Hx Family Cardiac Disorders: No Hx Family Respiratory Disorders: No Hx Family Cancer: No Hx Family GI Disorders: No Hx Family Endocrine Disorder: Yes Hx Family Neuromuscular Disorders: No Hx Family Neurologic Disorders: No Hx Family HEENT Disorders: No Hx Family Autoimmune Disorders: No Medications and Allergies Aspirin Enteric Coated [Aspirin EC] 81 mg PO DAILY 08/04/17 [History] Ferrous Sulfate 325 mg PO BIDWM 10/28/17 [History] Insulin ASPART [Novolog Flexpen] 0 unit SQ TID PRN 05/28/18 [History] Isosorbide MONOnitrate (24 HR) [Imdur] 30 mg PO DAILY 05/28/18 [History] Folic Acid/Vit B Complex and C [Dialyvite Tablet] 1 tab PO DAILY 10/22/18 [History] Metoclopramide HCl 5 mg PO BID #60 tablet 11/13/18 [Rx] Albuterol Sulfate [Proventil Inhaler] 1 puff IH Q4H PRN 12/22/18 [History] Insulin Glargine,Hum.rec.anlog [Basaglar Kwikpen U-100] 10 - 20 unit SQ HS 12/22/18 [History] Albuterol Sulfate [Ventolin Hfa] 1 puff PO Q4H 03/05/19 [History] Loperamide HCl [Anti-Diarrheal] 2 mg PO QID PRN 03/05/19 [History] Omeprazole Magnesium [Prilosec Otc] 20 mg PO DAILY 03/05/19 [History] Allergy/AdvReac Type Severity Reaction Status Date / Time Influenza Virus Vaccines Allergy See Verified 03/05/19 12:38 Comments NSAIDS (Non-Steroidal Allergy See Verified 03/05/19 12:38 Anti-Inflamma Comments Review of Systems ROS unobtainable: due to mental status (Patient is asleep) Exam - Vital Signs Vital signs: Initial Vital Signs Temp Pulse Resp BP Pulse Ox 97.9 F 93 16 97/61 95 03/04/19 12:39 03/04/19 12:39 03/04/19 12:39 03/04/19 12:39 03/04/19 12:39 Vital Signs - Last 8 Hours Temp Pulse Resp BP Pulse Ox 03/05/19 08:48 98.6 F 76 18 95/57 95 03/05/19 05:25 98.7 F 76 14 91/55 92 Intake and Output 03/04/19 03/05/19 03/05/19 23:59 07:59 15:59 Intake Total 0 / 500 0 / 0 Output Total 0 / 0 0 / 0 Balance 0 / 500 0 / 0 Intake: Oral 0 / 0 0 / 0 Output: Urine 0 / 0 0 / 0 Other: # Urine Diapers 1 Weight 59.7 kg 60.8 kg Blood Glucose* 123 100 85 Patient Weight 03/05/19 23:59 Weight 60.8 kg - General Appearance General appearance: well-developed, well-nourished EENT: ATNC Neck: supple Cardiology: regular rate Additional Comments: Patient is asleep. Psychiatric: mood/affect appropriate Results - Lab Results 03/05/19 08:51 03/05/19 08:51 Most recent lab results 03/05/19 08:51 Calcium 7.4 L Phosphorus 6.5 H Magnesium 1.9 Consult Discharge Plan - Plan Referrals: Macario Diallo MD [Primary Care Provider] -
--- NOTE | 2019-03-05 15:34 | Internal Med Progress Note ---
Hospitalist Progress Note - Encounter Date of Encounter: 03/05/19 Time of Encounter: 15:32 - Subjective Interval History: Evaluated patient earlier today during dialysis. Patient was complaining of pain in her right hip. Denied any significant shortness of breath. No chest pain reported. No dizziness or lightheadedness. - Exam Vitals: Temp Pulse Resp BP Pulse Ox 97.8 F 76 18 111/65 95 03/05/19 14:45 03/05/19 08:48 03/05/19 14:45 03/05/19 14:45 03/05/19 08:48 Exam: General: Patient is alert, no acute distress, oriented x 3 Respiratory: Diminished breath sounds at both bases Cardiovascular: Regular rate and rhythm. s1 and s2 normal No clicks, rubs, ga llops, or murmurs. No pedal edema Abdomen: Abdomen is soft, nontender. Bowel sounds are present Musculoskeletal: Tenderness noted at right hip Skin: warm, dry, intact. Neuro: Alert oriented x 3 normal cranial nerves, no focal deficits - Assessment and Plan (1) Intertrochanteric fracture of right femur Current Visit: Yes Status: Acute (2) HTN (hypertension) Current Visit: Yes Status: Chronic (3) Anemia Current Visit: Yes Status: Chronic (4) Diarrhea Current Visit: Yes Status: Resolved (5) ESRD (end stage renal disease) Current Visit: Yes Status: Chronic (6) Abnormal EKG Current Visit: No Status: Acute (7) Acute gastroenteritis Current Visit: Yes Status: Acute (8) Troponin I above reference range Current Visit: Yes Status: Acute (9) T2DM (type 2 diabetes mellitus) Current Visit: Yes Status: Chronic (10) Fall Current Visit: Yes Status: Acute DVT Prophylaxis: On subcutaneous heparin - Summary of Assessment and Plan Summary of Assessment and Plan: Right hip intertrochanteric fracture: Orthopedics consulted. Pain control. Cardiology consulted for preoperative clearance. Patient does have ischemic cardiomyopathy and is definitely at high risk for orthopedic surgery. Coronary artery disease/ischemic cardiomyopathy/troponin elevation: Continue medical management. Aspirin, beta raul and isosorbide. Troponins trended up to 0.12. Patient does not have any chest pain. No further cardiac workup recommended at this time per cardiology. End-stage renal disease on hemodialysis: Patient being dialyzed today. We will continue dialysis per nephrology recommendations. Diabetes mellitus type 2: Controlled. Continue current insulin regimen. Essential hypertension: Blood pressure is well controlled. Anemia of due to end-stage renal disease: Hemoglobin 9.4 today. Will monitor. If blood counts drop postsurgery, she may need blood transfusion. DVT prophylaxis with SCDs and subcutaneous heparin. - Time Spent with Patient Total time spent is greater than 50% in coordination of care (as documented) at patient's floor/unit and/or counseling patient: Internal Medicine: Result - Labs CBC & Chem 7: 03/05/19 08:51 03/05/19 08:51 Labs: Short CBC 03/05/19 Range/Units 08:51 WBC 7.6 (4.3-11.1) K/mcL Hgb 9.4 L D (11.5-15.4) g/dL Hct 29.9 L (35.3-44.9) % Plt Count 125 L (140-400) K/mcL Neutrophils # 5.2 (1.6-8.9) K/mcL BMP 03/05/19 08:51 Sodium 136 Potassium 4.6 Chloride 101 Carbon Dioxide 18 L BUN 78 H Creatinine 6.94 H Glucose 93 Calcium 7.4 L Cardiac Enzymes 03/04/19 03/05/19 Range/Units 16:15 08:51 Troponin I 0.08 H* 0.12 H* (< 0.04) ng/mL - ABG Interpretation ABG results: PT/INR, D-dimer PT 11.6 Seconds (9.4-12.1) 03/04/19 12:38 - Impressions Impressions Hip CT 03/04/19 14:33 IMPRESSION: Acute traumatic mildly comminuted and impacted right femur intertrochanteric fracture with apex superolateral angulation. Mild degree of associated soft tissue swelling and subcutaneous edema about the right hip. D/ / 03/04/2019 15:09:13 Arvind Douglas MD / brett Interpreting Provider: Arvind Douglas MD Consult Discharge Plan - Plan Referrals: Macario Diallo MD [Primary Care Provider] - (1) Intertrochanteric fracture of right femur Qualifiers: Encounter type: initial encounter Fracture type: closed Fracture alignment: nondisplaced Qualified Code(s): S72.144A - Nondisplaced intertrochanteric fracture of right femur, initial encounter for closed fracture (2) HTN (hypertension) Qualifiers: Hypertension type: essential hypertension Qualified Code(s): I10 - Essential (primary) hypertension (3) Anemia Qualifiers: Anemia type: due to chronic kidney disease Chronic kidney disease stage: stage 5, not on chronic dialysis Qualified Code(s): N18.5 - Chronic kidney disease, stage 5; D63.1 - Anemia in chronic kidney disease (4) Diarrhea Qualifiers: Diarrhea type: unspecified type Qualified Code(s): R19.7 - Diarrhea, unspecified (9) T2DM (type 2 diabetes mellitus) Qualifiers: Diabetes mellitus 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 69 - Type 2 diabetes mellitus with other specified complication; Z79.4 - custodial (current) use of insulin (10) Fall Qualifiers: Encounter type: initial encounter Qualified Code(s): W19.XXXA - Unspecified fall, initial encounter
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
[2019-03-05] MEDS ORDERED: Albuterol 2.5 MG/3 ML NEBULIZER IH PRN (21:30)
[2019-03-06] MEDS: *HR* HYDROcodone/Acet 5/325 mg TABLET PO PRN ×2 (03:44→16:01)
[2019-03-06 05:34] LABS: Basophils % 0.3 %; Eosinophils # 0.2 K/mcL (0.0-0.6); Hematocrit 31.4 % (35.3-44.9); Hemoglobin 9.9 g/dL (11.5-15.4); Immature Granulocytes % 0.6 % (0-4); Lymphocytes # 1.4 K/mcL (0.6-4.6); Lymphocytes % 21.4 %; Mean Corpuscular HGB Conc 31.5 g/dL (31.6-35.5); Mean Corpuscular Hemoglobin 30.3 pg (28.0-33.3); Mean Platelet Volume 9.7 fL (9.4-12.4); Monocytes # 0.6 K/mcL (0.0-1.3); Monocytes % 8.7 %; Neutrophils # 4.3 K/mcL (1.6-8.9); Platelet Count 123 K/mcL (140-400); Red Blood Count 3.27 M/mcL (3.82-4.97); Red Cell Distribution Width 14.5 % (11.5-14.5); White Blood Count 6.6 K/mcL (4.3-11.1)
[2019-03-06] MEDS: *HR* Heparin 5,000 UNIT/ML VIAL SQ SCH (05:37)
[2019-03-06 05:57] LABS: Calcium 7.6 mg/dL (8.6-10.3); Potassium 4.2 mEq/L (3.5-5.1)
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
[2019-03-06] MEDS ORDERED: *HR* FentaNYL (PF) 100 MCG/2 ML VIAL ONE (07:29)
[2019-03-06] MEDS ORDERED: *HR* Propofol 200 MG/20 ML VIAL IVP ONE (07:29)
[2019-03-06] MEDS ORDERED: Lidocaine HCL 4 ML Topical Solution (Laryng-O-Jet Kit Sterile Pak) TP ONE (07:31)
[2019-03-06] MEDS ORDERED: Ondansetron 4 MG/2 ML VIAL ONE (07:33)
[2019-03-06] MEDS ORDERED: Lidocaine -MPF 2% 2 ML VIAL ONE (07:33)
[2019-03-06] MEDS ORDERED: 0.9 % Sodium Chloride 500 ML ONE (07:44)
[2019-03-06] MEDS ORDERED: Famotidine 20 MG/2 ML VIAL ONE (08:04)
[2019-03-06] MEDS ORDERED: Acetaminophen IV 1,000 MG/100 ML INFUS..BTL ONE (08:04)
[2019-03-06] MEDS ORDERED: *HR* Etomidate 40 MG/20 ML VIAL IVP ONE (08:18)
[2019-03-06] MEDS ORDERED: EPHEDrine 50 MG/ML VIAL ONE (08:21)
[2019-03-06] MEDS: Insulin LISPRO 300 UNITS/3 ML VIAL SQ SCH ×3 (08:21→17:31)
[2019-03-06] MEDS ORDERED: *HR* PHENYLEPHRINE 1,000 MCG/10 ML SYRINGE IVP ONE ×2 (08:49→08:51)
[2019-03-06] MEDS ORDERED: Isosorbide MONOnitrate (24 HR) 30 MG TAB.ER.24H PO SCH (09:00)
[2019-03-06] MEDS ORDERED: Aspirin Enteric Coated 81 MG Tablet PO SCH (09:00)
[2019-03-06] MEDS ORDERED: Multivit/Ca/Min/Fe/FA 1 TAB TABLET PO SCH (09:00)
[2019-03-06] MEDS ORDERED: *HR* Metoprolol 5 MG/5 ML VIAL IVP ONE (09:01)
[2019-03-06] MEDS ORDERED: ceFAZolin 2,000 MG in Water for inj. (sterile) 20 ML IVP ONE (09:15)
[2019-03-06] MEDS ORDERED: *HR* Succinylcholine 200 MG/10 ML VIAL IVP ONE (09:16)
--- NOTE | 2019-03-06 10:06 | Nephrology Progress Note ---
Date of Encounter: 03/06/19 Time of Encounter: 10:05 - Assessment and Plan (1) ESRD (end stage renal disease) Status: Chronic (2) Closed hip fracture Status: Acute Qualifiers: Encounter type: initial encounter Laterality: right Qualified Code(s): S72.001A - Fracture of unspecified part of neck of right femur, initial encounter for closed fracture (3) Fall Status: Acute Qualifiers: Encounter type: initial encounter Qualified Code(s): W19.XXXA - Unspecified fall, initial encounter (4) HTN (hypertension) Status: Chronic Qualifiers: Hypertension type: essential hypertension Qualified Code(s): I10 - Essential (primary) hypertension (5) T2DM (type 2 diabetes mellitus) Status: Chronic Qualifiers: Diabetes mellitus 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 Please delete this note. Patient was not seen. Please delete this note. Patient was not seen. Please delete this note. Patient was not seen. Please delete this note. Objective - Vital Signs Vital signs: Vital Signs Temp Pulse Resp BP Pulse Ox 03/06/19 04:34 98.5 F 82 17 99/55 91 03/06/19 00:01 98.5 F 118 18 105/59 94 03/05/19 20:41 98.1 F 87 12 118/69 90 03/05/19 16:55 97.7 F 76 16 106/51 90 03/05/19 14:45 97.8 F 18 111/65 03/05/19 14:15 103/49 03/05/19 14:00 104/54 03/05/19 13:45 109/52 03/05/19 13:30 96/49 03/05/19 13:15 92/59 03/05/19 13:00 93/44 03/05/19 12:45 102/49 03/05/19 12:30 100/58 03/05/19 12:15 94/46 03/05/19 12:00 98/42 03/05/19 11:45 100/49 03/05/19 11:30 96/49 03/05/19 11:15 97.5 F L 18 92/66 Intake and Output 03/05/19 03/06/19 03/06/19 23:59 07:59 15:59 Intake Total Output Total 75 / 75 Balance -55 / -55 Intake: IV Fluids Ancef 2,000 MG In Water for inj . (sterile) 20 ML @ 200 mls/hr IVP PREOP ONE Rx#:[id number] Output: Estimated Blood Loss 75 / 75 Other: Weight 56 kg Blood Glucose* 98 Patient Weight 03/06/19 23:59 Weight 56 kg - Lab 03/07/19 05:46 03/07/19 05:46 Most recent lab results 03/06/19 05:02 Calcium 7.6 L Consult Discharge Plan - Plan Referrals: Macario Diallo MD [Primary Care Provider] -
--- NOTE | 2019-03-06 10:26 | Operative Note ---
Date of procedure: 03/06/19 Pre-op diagnosis: Right hip basicervical fracture Post-op diagnosis: same Procedure: Right hip intramedullary nailing Implants: Synthes TFN A Anesthesia: BALTAZARA Surgeon: Geoff Perrin Was there an occupational therapist assistants present: No Estimated blood loss (cc): 150 Specimen: 0 Condition: stable Disposition: PACU Procedure in Detail: The patient received IV antibiotics in the holding area. She was brought to the operating room, sign in was performed. The patient underwent general anesthesia on the hospital bed. She was then transferred to the fracture table in supine position. The patient was positioned with the support groin post, the affected right lower extremity in the traction goss and the contralateral lower extremity in a well-padded limb goss with a hip flexed and abducted out of the way. Fluoroscopy was then brought in, the fractures visualized, and the fracture reduced. We checked on AP and true lateral view of the hip. Once satisfactory the right hip, from the pelvis down to the knee, was prepped and draped in usual sterile fashion. A timeout was performed. The level of the greater trochanter was palpated, a 4-5 cm oblique incision was made just proximally, , followed by Bovie dissection. The hip abductor was sharply split in line with its fibers with a curved Nicole scissors. The tip of the greater trochanter was palpable. A curved awl was then positioned on the tip. Its position was checked on fluoroscopy, slightly advanced, and we checked the lateral view. Once appropriately positioned, the aggressive awl was then used to open the proximal femur down to level of the lesser trochanter. A short Trochanteric Femoral Nail Advanced with 130 degree neck angle, 10 mm diameter, was assembled, and appropriately inserted into the proximal femur. The appropriate level was checked under fluoroscopy. The triple trochars of 130 degree neck angle was then positioned against the skin, checking fluoroscopy for positioning. Once satisfactory a 2.5 cm incision was made, the fascia was bluntly split along with the muscle fibers of the vastus lateralis. The triple trocar was advanced up against the lateral cortex. The guidepin was then driven up into the femoral head, checking AP and lateral views. The wire was adjusted as needed. A 90 mm long helical blade was chosen. Overdrilled the guidewire, and the helical blade was tapped in place over the guidewire in standard technique. Once close to the edge of the femoral head, the setscrew was then screwed down, backing off 10:30. Traction was then taken off the leg, and the fracture compressed. While attempting to compress further, the compression screw and bone graft. I chose a real clockwise see if there is any change in compression.. The trocar and the blade handle was then screwed. It was noted that the blade had backed out. This was reassembled and the blade tapped in place again. The setscrew was fully locked down. The trocar was then removed. The triple trochars for the distal static locking screw were placed in the jig, a 1 cm longitudinal incision was made. The trochars were advanced to the cortex, and drilled across. The depth was measured and a 36 mm long by 5 mm bicortical screw was placed. All trochars and jig were removed. Final fluoroscopy shots were taken and saved showing good AP and lateral views of the hip and also distally at the tip of the nail. The wounds were irrigated with normal saline. Fascia over the abductors was closed with 0 Vicryl [id number] stitches, including the deep subcutaneous fat layer. Subcutaneous tissues were closed with 2-0 Vicryl, and the skin incisions were closed with jez. Sterile dressings were applied. The patient was transferred to hospital bed where she was extubated and taken to recovery room in stable condition.
[2019-03-06] MEDS ORDERED: 0.9 % Sodium Chloride 250 ML IVC PRN (11:06)
[2019-03-06] MEDS ORDERED: *HR* OxyCODONE Immed Rel 5 MG TABLET PO PRN (11:06)
[2019-03-06] MEDS ORDERED: *HR* Heparin 10,000 UNIT/10 ML VIAL IV PRN (11:06)
[2019-03-06] MEDS ORDERED: Acetaminophen 325 MG TABLET PO PRN (11:06)
[2019-03-06] MEDS ORDERED: Naloxone 0.4 MG/ML INJ IVP PRN (11:06)
[2019-03-06] MEDS ORDERED: Dextrose Gel 15 GM/37.5 ML TUBE PO PRN ×2 (11:06)
[2019-03-06] MEDS ORDERED: D5% in Water 1,000 ML IVC PRN (11:06)
[2019-03-06] MEDS ORDERED: Albuterol 2.5 MG/3 ML NEBULIZER IH PRN (11:06)
[2019-03-06] MEDS ORDERED: 0.9 % Sodium Chloride 1,000 ML PRIME SCH (11:06)
[2019-03-06] MEDS ORDERED: *HR* Dextrose 50 % in Water (Syg) 50 ML SYRINGE IVP PRN (11:06)
[2019-03-06] MEDS: Ringers Solution, Lactated 1,000 ML IVC SCH (12:31)
--- NOTE | 2019-03-06 12:34 | Anesthesia Evaluation Post Op ---
Date of Encounter: 03/06/19 Time of Encounter: 10:40 - Vital Signs Vital Signs: Vital Signs/O2 Sat/Glucose, Most Current Temp Pulse Resp BP Pulse Ox 03/06/19 10:40 98.6 F 78 16 102/50 94 03/06/19 10:30 97.9 F 76 16 99/50 94 03/06/19 10:20 76 16 102/49 95 03/06/19 10:10 76 16 116/56 95 03/06/19 10:00 98.6 F 74 16 78/45 93 - Lungs Lungs: Clear Ascult./Percussion - Airway Airway: Non-obstructed - Cardiovascular Baseline Rhythm - Mental Status Mental Status: Alert & Oriented, Answers Appropriately - Pain Pain Scale: 0 Pain Scale used: Numeric (1 - 10) - Nausea Vomiting Nausea Vomiting: Not Present - Hydration Hydration: Ice chips - Discharge PostOp Status: Transfer Patient to floor Anes Supervising Prov Stmt: Pt seen/evaluated, VSS and has met criteria for discharge to floor. - MD Cody
--- NOTE | 2019-03-06 14:51 | Internal Med Progress Note ---
Hospitalist Progress Note - Encounter Date of Encounter: 03/06/19 Time of Encounter: 10:00 - Subjective Interval History: Patient was seen after surgery. She is somnolent but awakes for sternal rub. - Exam Vitals: Temp Pulse Resp BP Pulse Ox 97.6 F 74 15 115/64 100 03/06/19 14:00 03/06/19 14:00 03/06/19 14:00 03/06/19 14:00 03/06/19 14:00 Exam: General: Somnolent but opened her eyes and respond to verbal stimuli. Respiratory: Diminished breath sounds at both bases Cardiovascular: Regular rate and rhythm. s1 and s2 normal No clicks, rubs, gallops, or murmurs. No pedal edema Abdomen: Abdomen is soft, nontender. Bowel sounds are present Musculoskeletal: Tenderness noted at right hip Skin: warm, dry, intact. Neuro: Alert oriented x 3 normal cranial nerves, no focal deficits - Assessment and Plan (1) HTN (hypertension) Current Visit: Yes Status: Chronic (2) Anemia Current Visit: Yes Status: Chronic (3) Diarrhea Current Visit: Yes Status: Resolved (4) ESRD (end stage renal disease) Current Visit: Yes Status: Chronic (5) Abnormal EKG Current Visit: No Status: Acute (6) Acute gastroenteritis Current Visit: Yes Status: Resolved (7) Troponin I above reference range Current Visit: Yes Status: Acute (8) T2DM (type 2 diabetes mellitus) Current Visit: Yes Status: Chronic (9) Fall Current Visit: Yes Status: Acute (10) Intertrochanteric fracture of right femur Current Visit: Yes Status: Acute - Summary of Assessment and Plan Summary of Assessment and Plan: Ms. Lacy is a 73 year old female with a past medical history significant for hypertension, diabetes mellitus,Ms. Lacy is a 73 year old female with a past medical history significant for hypertension, diabetes mellitus,ESRD who came into the hospital status post fall. Her symptoms were managed as following. Right hip intertrochanteric fracture: -Orthopedics consulted, today for surgery. Cardiology consulted for preoperative clearance. Patient does have ischemic cardiomyopathy and is definitely at high risk for orthopedic surgery. -Pain control as per oRTHO service. NSTEMI: - Likely Type II event given her recent fall however cannot rule out type I given her known CAD. Cardiology IS consulted and no further workup is required or recommended. - Continue medical management. Aspirin, beta raul and isosorbide. Troponins trended up to 0.12, [place] as does not Will change the course of management. ICM: - EF of 35, left ventricular systolic dysfunction, left ventricular diastolic dysfunction, moderate pulmonary hypertension as per recent echo - Continue medical management, monitor input/output End-stage renal disease on hemodialysis: Patient being dialyzed today. We will continue dialysis per nephrology recommendations. Diabetes mellitus type 2: Controlled. Continue current insulin regimen. Essential hypertension: Blood pressure is well controlled. Anemia of due to end-stage renal disease: Hemoglobin 9.9 today. Will monitor. If blood counts drop postsurgery, she may need blood transfusion. Check CBC tomorrow. DVT prophylaxis with Lovenox as per orthopedic surgery. - Time Spent with Patient Total time spent is greater than 50% in coordination of care (as documented) at patient's floor/unit and/or counseling patient: Internal Medicine: Result - Labs CBC & Chem 7: 03/06/19 05:02 03/06/19 05:02 Labs: Short CBC 03/06/19 Range/Units 05:02 WBC 6.6 (4.3-11.1) K/mcL Hgb 9.9 L (11.5-15.4) g/dL Hct 31.4 L (35.3-44.9) % Plt Count 123 L (140-400) K/mcL Neutrophils # 4.3 (1.6-8.9) K/mcL BMP 03/06/19 05:02 Sodium 135 L Potassium 4.2 Chloride 100 Carbon Dioxide 24 BUN 42 H Creatinine 4.70 H Glucose 88 Calcium 7.6 L - ABG Interpretation ABG results: PT/INR, D-dimer PT 11.6 Seconds (9.4-12.1) 03/04/19 12:38 - Impressions Impressions Echocardiogram 03/05/19 14:20 Impressions: LVEF 35%. Normal LV chamber size. Global and segmental left ventricular systolic dysfunction. Mild left ventricular diastolic dysfunction. Normal right ventricular structure and function. Mild mitral regurgitation. Mild pulmonary hypertension. Left Ventricular Wall Motion: Rest Echo Findings The apex, apical inferior, apical anterior, mid anterior, basal anterior, apical septal, mid inferior septal, apical lateral, mid anterior lateral, basal anterior lateral, mid anterior septal, mid inferior lateral and basal anterior septal erwin were hypokinetic. The mid inferior, basal inferior, basal inferior septal and basal inferior lateral erwin were akinetic. Findings: Study Quality * Technically sub-optimal due to poor echocardiographic windows. ECG Findings * Normal sinus rhythm. Left Ventricle * LVEF 35%. * Normal LV chamber size. * Global and segmental left ventricular systolic dysfunction. * Mild left ventricular diastolic dysfunction. Right Ventricle * Normal right ventricular structure and function. Left Atrium * Mildly dilated left atrium. Right Atrium * Normal right atrial size. Interatrial Septum * Interatrial septum not well evaluated. Aortic Valve * Mildly calcified aortic valve leaflets. * Trileaflet aortic valve. * No aortic stenosis. * No aortic regurgitation. Mitral Valve * Mildly thickened mitral valve leaflets. * Mild mitral regurgitation. * No mitral stenosis. Tricuspid Valve * Normal tricuspid valve structure and function. * Trace tricuspid regurgitation. * Mild pulmonary hypertension. Pulmonic Valve * Pulmonic valve not well visualized. * No pulmonic regurgitation. Aorta * Normally sized aortic root. Pericardium * The pericardium appears normal. IVC * Normal IVC dimensions and inspiratory collapse. Pulmonary Artery * Normal visualized portions of the main pulmonary artery. Fluoroscopy 03/06/19 08:43 IMPRESSION: Intraprocedural fluoroscopic spot images as above. See separate procedure report for more information. D/ / Laura Max MD / Laura Max MD Interpreting Provider: Laura Max MD Hip X-Ray 03/06/19 08:43 IMPRESSION: Intraprocedural fluoroscopic spot images as above. See separate procedure report for more information. D/ / Laura Max MD / Laura Max MD Interpreting Provider: Laura Max MD Consult Discharge Plan - Plan Referrals: Macario Diallo MD [Primary Care Provider] - (1) HTN (hypertension) Qualifiers: Hypertension type: essential hypertension Qualified Code(s): I10 - Essential (primary) hypertension (2) Anemia Qualifiers: Anemia type: due to chronic kidney disease Chronic kidney disease stage: stage 5, not on chronic dialysis Qualified Code(s): N18.5 - Chronic kidney disease, stage 5; D63.1 - Anemia in chronic kidney disease (3) Diarrhea Qualifiers: Diarrhea type: unspecified type Qualified Code(s): R19.7 - Diarrhea, unspecified (8) T2DM (type 2 diabetes mellitus) Qualifiers: Diabetes mellitus correction insulin use: with terminal gauger use Diabetes mellitus complication status: with other specified complication Qualified Code(s): E11.6 9 - Type 2 diabetes mellitus with other specified complication; Z79.4 - vermin exterminator (current) use of insulin (9) Fall Qualifiers: Encounter type: initial encounter Qualified Code(s): W19.XXXA - Unspecified fall, initial encounter (10) Intertrochanteric fracture of right femur Qualifiers: Encounter type: initial encounter Fracture type: closed Fracture alignment: nondisplaced Qualified Code(s): S72.144A - Nondisplaced intertrochanteric fracture of right femur, initial encounter for closed fracture
[2019-03-06] MEDS: Ondansetron 4 MG/2 ML VIAL IVP PRN (16:01)
[2019-03-06] MEDS ORDERED: Insulin LISPRO 300 UNITS/3 ML VIAL SQ SCH (21:00)
[2019-03-07] MEDS: Ringers Solution, Lactated 1,000 ML IVC SCH (01:40)
[2019-03-07] MEDS: *HR* HYDROcodone/Acet 5/325 mg TABLET PO PRN (04:06)
[2019-03-07] MEDS: Ondansetron 4 MG/2 ML VIAL IVP PRN (04:15)
[2019-03-07 06:31] LABS: Basophils % 0.2 %; Eosinophils # 0.1 K/mcL (0.0-0.6); Eosinophils % 1.1 %; Hematocrit 30.4 % (35.3-44.9); Hemoglobin 9.3 g/dL (11.5-15.4); Immature Granulocytes % 0.7 % (0-4); Lymphocytes # 0.8 K/mcL (0.6-4.6); Lymphocytes % 7.9 %; Mean Corpuscular HGB Conc 30.6 g/dL (31.6-35.5); Mean Corpuscular Hemoglobin 30.2 pg (28.0-33.3); Mean Corpuscular Volume 98.7 fL (83.0-100.0); Mean Platelet Volume 9.9 fL (9.4-12.4); Monocytes # 0.4 K/mcL (0.0-1.3); Monocytes % 4.1 %; Neutrophils # 8.6 K/mcL (1.6-8.9); Platelet Count 114 K/mcL (140-400); Red Blood Count 3.08 M/mcL (3.82-4.97); Red Cell Distribution Width 14.6 % (11.5-14.5)
[2019-03-07 06:49] LABS: Calcium 7.5 mg/dL (8.6-10.3); Potassium 4.9 mEq/L (3.5-5.1)
[2019-03-07] MEDS ORDERED: *HR* Enoxaparin 30 MG/0.3 ML SYRINGE SQ SCH (08:30)
[2019-03-07] MEDS ORDERED: Aspirin Enteric Coated 81 MG Tablet PO SCH (09:00)
[2019-03-07] MEDS ORDERED: Multivit/Ca/Min/Fe/FA 1 TAB TABLET PO SCH (09:00)
[2019-03-07] MEDS ORDERED: Renal Vitamin 1 CAP CAPSULE PO SCH (09:26)
[2019-03-07] MEDS: Insulin LISPRO 300 UNITS/3 ML VIAL SQ SCH ×2 (09:32→11:18)
[2019-03-07] MEDS ORDERED: Ondansetron 4 MG/2 ML VIAL IVP SCH (09:45)
[2019-03-07] MEDS: Isosorbide MONOnitrate (24 HR) 30 MG TAB.ER.24H PO SCH ×2 (09:48→10:23)
[2019-03-07] MEDS ORDERED: Ondansetron 4 MG/2 ML VIAL IVP PRN (10:04)
--- NOTE | 2019-03-07 10:18 | Nephrology Progress Note ---
Date of Encounter: 03/07/19 Time of Encounter: 10:15 - Assessment and Plan (1) ESRD (end stage renal disease) Current Visit: Yes Status: Chronic HD TTS No need for HD today, plan on HD tomorrow. Renal vitamins. Renal dose medications. Renal diet. Additional dialysis and ultrafiltration as needed. (2) HTN (hypertension) Current Visit: Yes Status: Chronic Per primary. Qualifiers: Hypertension type: essential hypertension Qualified Code(s): I10 - Essential (primary) hypertension (3) T2DM (type 2 diabetes mellitus) Current Visit: Yes Status: Chronic Per primary. Qualifiers: Diabetes mellitus middle or intermediate school principal insulin use: with middle or intermediate school principal use Diabetes mellitus complication status: with other specified complication Qualified Code(s): E11.69 - Type 2 diabetes mellitus with other specified complication; Z79.4 - terminologist (current) use of insulin (4) Closed hip fracture Current Visit: Yes Status: Acute Per ortho. Qualifiers: Encounter type: initial encounter Laterality: right Qualified Code(s): S72.001A - Fracture of unspecified part of neck of right femur, initial encounter for closed fracture (5) Fall Current Visit: Yes Status: Acute Social service already consulted. Suggest ECF, patient and family have declined in the past. Qualifiers: Encounter type: initial encounter Qualified Code(s): W19.XXXA - Unspecified fall, initial encounter Subjective Principal diagnosis: s/p fall right hip pain Interval history: Again seen and examined in room. Denies chest pain or shortness of breath. Admits to chronic nausea. Denies diarrhea or emesis. Objective - Vital Signs Vital signs: Vital Signs Temp Pulse Resp BP Pulse Ox 03/07/19 06:41 98.0 F 83 19 98/58 96 03/07/19 03:52 97.9 F 85 19 117/61 94 03/06/19 23:58 98 F 82 18 113/65 97 03/06/19 19:04 97.9 F 75 18 125/59 99 03/06/19 16:19 97.6 F 76 16 111/57 100 03/06/19 14:00 97.6 F 74 15 115/64 100 03/06/19 13:00 98.0 F 74 15 103/58 99 03/06/19 12:00 97.5 F L 73 17 92/55 95 03/06/19 11:33 98.1 F 73 17 90/47 95 03/06/19 11:30 95 03/06/19 11:10 98.6 F 75 17 90/50 100 03/06/19 10:40 98.6 F 78 16 102/50 94 03/06/19 10:30 97.9 F 76 16 99/50 94 03/06/19 10:20 76 16 102/49 95 Intake and Output 03/06/19 03/07/19 03/07/19 23:59 07:59 15:59 Intake Total 100 / 120 1100 / 1340 240 / 1340 Balance 100 / 45 1100 / 1340 240 / 1340 Intake: IV Fluids 100 / 120 1100 / 1100 Lactated Ringers 1,000 ML @ 75 1000 / 1000 mls/hr IVC .[id number] VIKA Rx#: [id number] Ancef 2,000 MG In 0.9 % Sodium 100 / 100 100 / 100 Chloride 100 ML @ 200 mls/hr IVPB Q8HR VIKA Rx#:[id number] Oral 240 / 240 Other: Meal Breakfast Percent of Meal Consumed 0% # Urine Diapers 1 1 Weight 56 kg Blood Glucose* 97 67 - General Appearance General appearance: Present: chronically ill, frail EENT: Present: ATNC, hearing intact, vision intact Neck: Present: supple Respiratory: Present: clear Cardiology: Present: no edema, normal S1, normal S2 Dialysis Vascular Access: Arteriovenous Fistula thrill: Yes bruit: Yes Gastrointestinal: Present: normoactive bowel sounds, no tenderness, no guarding Integumentary: Present: no rash, warm and dry Neurologic: Present: alert and oriented x3 Musculoskeletal: Present: no deformities, no erythema Psychiatric: Present: mood/affect appropriate, cooperative - Lab 03/07/19 05:46 03/07/19 05:46 Most recent lab results 03/07/19 05:46 Calcium 7.5 L Consult Discharge Plan - Plan Referrals: Macario Diallo MD [Primary Care Provider] -
[2019-03-07 10:20] VITALS: BP 97/54
--- NOTE | 2019-03-07 13:21 | Orthopedics Progress Note ---
Date of Encounter: 03/07/19 Time of Encounter: 12:30 - Assessment and Plan (1) Intertrochanteric fracture of right femur Current Visit: Yes Status: Acute POD#1 s/p right hip IM nailing 03/06/19 Dressings to be changed tomorrow Continue with PT/PT once medically able - WBAT with walker Await therapy recommendations but will likely need placement to ECF Labs reviewed - H/H 9.3/30.4, stable Ice and elevate as needed. Pain control per primary team. DVT prophylaxis - lovenox [id number] then transition to aspirin 325mg daily for 4 weeks. Staff was made aware that patient had emesis beside her on gown/bedding to have nurse assist her in clean up. UPDATE - while finishing documentation from earlier exam noted that code guru was called later this afternoon after seeing patient and she did pass away. Will cancel office appt and make Dr. Perrin aware. Qualifiers: Encounter type: initial encounter Fracture type: closed Fracture alignment: nondisplaced Qualified Code(s): S72.144A - Nondisplaced intertrochanteric fracture of right femur, initial encounter for closed fracture Subjective Principal diagnosis: POD#1 s/p right hip IM nailing 03/06/19 Interval history: Patient was sleeping on exam but easily awoke. She states she was feeling nauseated and did have emesis on her gown and in emesis bag beside her but no active vomiting during exam. She states she was unable to participate with therapy this morning due to not feeling well. She states she had receive anti-n ausea medication but it is not helping so far. Denies any new pain or numbness/tingling in lower extremities. Objective Vital signs: Vital Signs Temp Pulse Resp BP Pulse Ox 03/07/19 10:18 98.1 F 73 18 97/54 97 03/07/19 06:41 98.0 F 83 19 98/58 96 03/07/19 03:52 97.9 F 85 19 117/61 94 03/06/19 23:58 98 F 82 18 113/65 97 03/06/19 19:04 97.9 F 75 18 125/59 99 03/06/19 16:19 97.6 F 76 16 111/57 100 03/06/19 14:00 97.6 F 74 15 115/64 100 Intake and Output 03/06/19 03/07/19 03/07/19 23:59 07:59 15:59 Intake Total 100 / 120 1100 / 1340 240 / 1340 Balance 100 / 45 1100 / 1340 240 / 1340 Intake: IV Fluids 100 / 120 1100 / 1100 Lactated Ringers 1,000 ML @ 75 1000 / 1000 mls/hr IVC .[id number] VIKA Rx#: [id number] Ancef 2,000 MG In 0.9 % Sodium 100 / 100 100 / 100 Chloride 100 ML @ 200 mls/hr IVPB Q8HR VIKA Rx#:[id number] Oral 240 / 240 Other: Meal Breakfast Percent of Meal Consumed 0% # Urine Diapers 1 1 1 Weight 56 kg Blood Glucose* 97 67 94 Incision: draining (There was a small quarter sized area of drainage noted on the dressing to right hip. No visible surrounding erythema. no calf tenderness to palpation. good dorsiflexion of foot, sensation intact distally.) - Labs CBC & BMP: 03/07/19 05:46 03/07/19 05:46 Labs: Abnormal lab results RBC 3.08 M/mcL (3.82-4.97) L 03/07/19 05:46 Hgb 9.3 g/dL (11.5-15.4) L 03/07/19 05:46 Hct 30.4 % (35.3-44.9) L 03/07/19 05:46 MCHC 30.6 g/dL (31.6-35.5) L 03/07/19 05:46 RDW 14.6 % (11.5-14.5) H 03/07/19 05:46 Plt Count 114 K/mcL (140-400) L 03/07/19 05:46 Sodium 135 mEq/L (136-145) L 03/06/19 05:02 Chloride 96 mEq/L (98-107) L 03/04/19 12:38 Carbon Dioxide 18 mEq/L (23-29) L 03/07/19 05:46 BUN 51 mg/dL (8-23) H 03/07/19 05:46 Creatinine 5.68 mg/dL (0.60-1.20) H 03/07/19 05:46 Est GFR ( Amer) 9 (> 60) L 03/07/19 05:46 Est GFR (Non-Af Amer) 7 (> 60) L 03/07/19 05:46 Glucose 65 mg/dL (70-105) L 03/07/19 05:46 POC Glucose 67 mg/dL (70-99) L 03/07/19 06:51 Calculated Osmolality 305 (280-300) H 03/05/19 08:51 Calcium 7.5 mg/dL (8.6-10.3) L 03/07/19 05:46 Phosphorus 6.5 mg/dL (2.7-4.5) H 03/05/19 08:51 Troponin I 0.12 ng/mL (< 0.04) H* 03/05/19 08:51 Hep Bs Antibody < 3.10 mIU/mL (10.00-) L 03/04/19 17:32 Consult Discharge Plan - Plan Referrals: Macario Diallo MD [Primary Care Provider] -
--- NOTE | 2019-03-07 13:42 | Electrocardiograph Report ---
[address] [place], [place] [address] Test Date: 2019-03-04 Pat Name: Lisa Lacy Department: [id number] Room: 2A44 Gender: F Electronic Imaging System Operator: : 1945 Requested By: Nimisha Metz Order Number: [id number] Reading MD: Vinay Zambrano Measurements Intervals [place] Rate: 83 P: 57 LA: 191 QRS: 77 QRSD: 137 T: 206 QT: 412 QTc: 485 Interpretive Statements Sinus rhythm ATYPICAL LBBB Electronically Signed On 03-07-2019 13:41:29 EDT by Vinay Zambrano
[2019-03-07] MEDS ORDERED: 0.9 % Sodium Chloride Mini Bag 100 ML ONE (15:06)
--- NOTE | 2019-03-07 15:30 | Procedure Note ---
Date of procedure: 03/07/19 Pre-op diagnosis: cardiac arrest Post-op diagnosis: same Procedure: Responded to CODE BLUE. Please see CODE BLUE note for further details. Performed endotracheal intubation. The patient appeared to have an aspiration event. There was a significant amount of vomitus in the airway that required suctioning. A #7.5 endotracheal tube was placed with direct laryngoscopy. There was adequate color change on CO2 detector and bilateral breath sounds. Anesthesia: none Surgeon: Umberto Wilson Was there an household personal assistant present: No Estimated blood loss (cc): 0 Specimen: none
--- NOTE | 2019-03-07 16:38 | Death Note ---
Discharge Sum: Summary - Date and Time Date of admission: 03/05/19 16:50 Date of : 03/07/19 Time of : 15:09 - Summary Details: Bambi is a 73 year old female with a past medical history significant for hy pertension, diabetes mellitus, HFrEF ef 35%, ICM, ESRD on HD TTS who came into the hospital status post fall. She was found to have Right hip intertrochanteric fracture. She was also found to have troponin elevation for which cardiology service was consulted and patient was deemed high risk for the surgery however she opted to proceed with the surgery. Orthopedic surgery was consulted and patient had hip replacement done yesterday on 03/06. Today in the morning, patient was complaining about nausea and mild pain but she did not vomit. This afternoon, MANUEL GARVEY was called as the patient was found pulseless. Manuel garvey Team arrived and patient was hoped to the monitor and was started on chest compressions. Her initial pulse was asystole. She received total of 3 pushes of epinephrine with frequent rhythm/pulse check. She regained her pulse after 10 minutes and then became bradycardic. Patient was also given 1 dose of atropine. She developed pulseless V. tach initially for which she was shocked twice. Her pulse came back and she was loaded with amiodarone and placed on amiodarone drip. 5 minutes later, she went pulseless again and his compressions resumed, and she was given 1 dose of epinephrine and atropine along with 1 dose of bicarbonate. Unfortunately, pulse/rhythm did not restored and patient at 15:09. Family was contacted. - Additional Data Confirmation of as documented by pronouncing clinician: no pulse, no respirations, no heart sounds, pupils fixed and dilated Family: at bedside, contacted Additional persons at bedside: professor of social work Attending/PCP notified?: Yes Attending physician: Arturo Jeronimo Was code activated?: Yes Autopsy requested?: No lightout examiner notified?: Yes Organ bank notified?: Yes Advance directives: Yes Hospice patient?: No Discharge Sum: Diag - PCOD Probable Cause of : Cardiac arrest Discharge Sum: Prov - Provider Primary care physician: Macario Diallo MD Consults: 03/04/19 14:55 Consult to Orthopedic Surgery [CONS] Stat Consulting Provider: [facility] Reason for Consult: Hip fracture Time Notified: 14:45 Call Completed: Yes 03/04/19 16:08 Consult to Nephrology [CONS] Routine Consulting Provider: [facility]/SHAINA/FARTUN/HEAVEN Reason for Consult: ESRD on HDS TTS schedule Call Completed: Yes 03/05/19 08:40 Consult to Cardiology [CONS] Routine Comment: Consulting Provider: Cardiology [facility] Reason for Consult: Elevated troponin/ Preop clearance Call Completed: No 03/05/19 09:00 Consult to Dialysis [CONS] ONCE 03/06/19 11:06 Consult to Occupational Therapy [CONS] Routine Comment: Evaluate, develop and implement POC Reason for Consult: post hip surgery Does patient have active BEDREST order?: No Is patient medically & hemodynamically stable?: Yes Patient assessed for mobility or mobilized this visit?: No Consult to Orthopedic Navigator [CONS] [CONS] Routine Consult to Physical Therapy [CONS] Routine Comment: Evaluate, develop and implement POC Reason for Consult: post hip surgery Does patient have active BEDREST order?: No Is patient medically & hemodynamically stable?: Yes Patient assessed for mobility or mobilized this visit?: No Consult to Commanding Officer Homicide Squad [CONS] Routine Reason for SW Consult: post -op hip fracture RT Post Op Consult [CONS] Routine 03/07/19 09:07 Consult to Nurse Navigator [CONS] Routine Comment: hd - Attending Attestation I was available during the whole code. Total time spent: 45 minutes
[2019-03-07] MEDS ORDERED: *HR* Heparin 5,000 UNIT/ML VIAL SQ SCH (22:00)
== END 2019-03-07 15:09 | disposition expired | DRG 480 ==
LOC: 2ANU 12:29 → EMEROOARM 12:29 → 2ANU 15:52 → SUATTDRO 03-05 16:50
PROVIDERS: ADMIT Student in an Organized Health Care Education/Training Program; ATTEND Internal Medicine